=== PATIENT | female | born 1945 | race Caucasian/White ===

== ENCOUNTER 2018-08-01 12:19 | Inpatient (IN) | payer MEDICARE, MEDICAID ==
[~2018-08-01] VITALS: Ht 162.6 cm; Wt 54.9 kg
[~2018-08-01 12:19] MED LIST: ACETAMINOPHEN120 MG RECTAL; ACETAMINOPHEN500 M5 PO; AMANTADINE100 M2 ORAL; AMBIEN5 MG ORAL; DOCUSATE SODIU100 MG ORAL; DULCOLAX10 MG RC; GUAIFENESIN-CO118 M1 ORAL; HEPARIN SO5000 UNITS SQ; LISINOPRIL10 MG ORAL; MAALOX MAXIMUM355 M1 PO; METOPROLOL TART25 MG ORAL; MINIPRESS1 MG PO; MIRAPEX0.25 MG ORAL; MULTIVITAMINS1 EA13 ORAL; PROCARDIA XL90 M4 ORAL; PROTONIX40 MG ORAL; SINEMET 25-1001 EAC1 ORAL; VITAMIN C250 MG ORAL; ZOFRAN4 M1 ORAL
[2018-08-01 12:20] VITALS: BP 95/50
[2018-08-01] MEDS ORDERED: Ampicillin/Sulbactam Sod 3 GM in NS 110 ML IV SCH (13:00)
[2018-08-01 13:05] LABS: EOSINOPHILS % (AUTO) 1.2 % (0.0-3.0); HEMATOCRIT 39.9 % (37.0-47.0); LYMPHOCYTES % (AUTO) 26.8 % (20.0-45.0); MEAN CORPUSCULAR VOLUME 86 FL (80-99); MONOCYTES % (AUTO) 6.2 % (1.0-10.0); NEUTROPHILS % (AUTO) 64.8 % (45.0-75.0); PLATELET COUNT 144 K/UL (150-450); RED BLOOD COUNT 4.64 M/UL (4.20-5.40); RED CELL DISTRIBUTION WIDTH 12.9 % (11.6-14.8); WHITE BLOOD COUNT 5.7 K/UL (4.8-10.8)
[2018-08-01 13:15] LABS: ANION GAP 7 mmol/L (5-15); BLOOD UREA NITROGEN 16 mg/dL (7-18); CALCIUM 9.1 MG/DL (8.5-10.1); CARBON DIOXIDE 25 MMOL/L (21-32); CHLORIDE 108 MMOL/L (98-107); CREATININE 0.4 MG/DL (0.55-1.30); POTASSIUM 4.1 MMOL/L (3.5-5.1); SODIUM 140 MMOL/L (136-145)
[2018-08-01 13:22] LABS: INR 1.1 (0.9-1.1)
--- NOTE | 2018-08-01 13:26 | Emergency Room Report ---
History of Present Illness General Chief Complaint: Altered Level of Consciousness Source: EMS Present Illness HPI 72yo f patient with no PMH is nonverbal from [facility] presents with low BP, sent by Dr. Dupree. NO reported h/o fever, vomiting, SOB, any complaint. Allergies: Coded Allergies: No Known Allergies (Unverified , 08/01/18) Patient History Limited by: medical condition Past Medical History: see triage record Now: No Reviewed Nursing Documentation: PMH: Agreed; PSxH: Agreed Nursing Documentation-PMH Hx Cardiac Problems: Yes - anemia, muscle weakness, dysphagia, quadriplegia Hx Hypertension: Yes Review of Systems All Other Systems: limited Physical Exam Vital Signs Date Time Temp Pulse Resp B/P (MAP) Pulse Ox O2 Delivery O2 Flow Rate FiO2 08/01/18 12:15 48 18 95/50 99 Room Air Sp02 EP Interpretation: reviewed, normal, abnormal General Appearance: no apparent distress, alert, non-toxic Head: normocephalic Eyes: bilateral eye normal inspection, bilateral eye PERRL, bilateral eye EOMI ENT: normal ENT inspection, hearing grossly normal, dry mucus membranes Neck: normal inspection, full range of motion, supple, thyroid normal, no meningismus, no bony tend, supple/symm/no masses Respiratory: chest non-tender, lungs clear, normal breath sounds, no rhonchi, no respiratory distress, no retraction, no accessory muscle use, no wheezing, chest symmetrical, palpation of chest normal Cardiovascular #1: normal peripheral pulses, regular rate, rhythm, no edema, no gallop, no JVD, no murmur, no rub Cardiovascular #2: 1+ radial (R), 1+ radial (L), 1+ dorsalis pedis (R), 1+ dorsalis pedis (L) Gastrointestinal: normal inspection, non tender, soft, no mass, no guarding, no rebound Rectal: deferred Genitourinary: normal inspection, no CVA tenderness Musculoskeletal: back normal, gait/station normal, normal range of motion, non- tender, no calf tenderness, other - CONTRACTED EXTREMITIES Neurologic: alert, responsive, facial droop, aphasia Psychiatric: mood/affect normal Skin: normal color, no rash, warm/dry, normal turgor Lymphatic: no adenopathy Medical Decision Making Diagnostic Impression: Primary Impression: Bradycardia Additional Impression: Hypotension ER Course Patient with hypotension, resolved likely with IV fluids, thought initially to be septic but more likely just dehydration, given IV Unasyn, patient also bradycardic, no evidence of any high-grade blocks, just a profound sinus bradycardia, possibly secondary medications, patient normotensive now, difficult to ascertain any complaints but is awake and nods head and follows basic commands and speaks one word but unintelligible, seems to be baseline for her, we'll admit to Dr. Tony Dupree EKG Diagnostic Results EKG Time: 12:41 EP Interpretation: no stemi Rate: bradycardiac Rhythm: NSR ST Segments: no acute changes ASA given to the pt in ED: No Rhythm Strip Diag. Results Rhythm Strip Time: 13:24 EP Interpretation: yes Rate: 42 Rhythm: no PVC's, no ectopy, other - sinus dilcia Chest X-Ray Diagnostic Results Chest X-Ray Diagnostic Results : Chest X-Ray Ordered: Yes # of Views/Limited/Complete: 1 View Indication: Other - hypotension EP Interpretation: Yes Interpretation: no consolidation, no effusion, no pneumothorax, no acute cardiopulmonary disease Impression: No acute disease Electronically Signed by: Liudmila Alas MD Reevaluation Time: 13:26 Last Vital Signs Date Time Temp Pulse Resp B/P (MAP) Pulse Ox O2 Delivery O2 Flow Rate FiO2 08/01/18 12:15 48 18 95/50 99 Room Air Status: improved Disposition: ADMITTED INPATIENT Condition: Improved LIUDMILA ARROYO M.D Aug 01, 2018 13:26
[2018-08-01 13:28] LABS: ALANINE AMINOTRANSFERASE 8 U/L (12-78); ALBUMIN 2.9 G/DL (3.4-5.0); ALBUMIN/GLOBULIN RATIO 0.7 (1.0-2.7); ALKALINE PHOSPHATASE 112 U/L (46-116); ASPARTATE AMINO TRANSFERASE 15 U/L (15-37); BILIRUBIN,TOTAL 0.7 MG/DL (0.2-1.0); CKMB 0.5 NG/ML (0.0-3.6); CREATINE KINASE 75 U/L (26-308)
--- NOTE | 2018-08-01 13:55 | Diagnostic Imaging Report ---
Indication: Dyspnea Comparison: None A single view chest radiograph was obtained. Findings: No definite infiltrate or pulmonary vascular congestion identified. The heart is enlarged. The aorta is mildly enlarged consistent with atherosclerotic vascular disease. The bones are osteopenic. Impression: No acute disease
[2018-08-01] MEDS ORDERED: Atropine Inj 1mg/10ml Syr IVP ONE (15:00)
[2018-08-01] MEDS ORDERED: Morphine Sulfate 2mg/ml Inj IVP PRN (15:15)
[2018-08-01] MEDS ORDERED: Miralax 17gm pkt ORAL PRN (15:15)
[2018-08-01] MEDS ORDERED: Albuterol/Ipratropium 3ml neb HHN PRN (15:15)
[2018-08-01 15:20] VITALS: BP 105/65
[2018-08-01 15:58] VITALS: BP 148/81
--- NOTE | 2018-08-01 16:15 | History and Physical Report ---
DATE OF ADMISSION: 08/01/2018 APPROXIMATE TIME: 1 p.m. CONSULTANTS: 1. Aleksandr Sibley M.D. 2. Harry Callejas M.D. 3. Flex Winters M.D. CHIEF COMPLAINT: Altered mental status, weakness, bradycardia, hypotension, and contracture. BRIEF HISTORY: This is a 71-year-old female from [facility] presents to [facility] with history of increased weakness and lethargy was barely arousable, came to [facility], diagnosed with bradycardia, hypotension, and altered mental status and being admitted shortly currently lethargic in bed and not really responsive. REVIEW OF SYSTEMS: Unavailable. PAST MEDICAL HISTORY: Include weakness and contracture. PAST SURGICAL HISTORY: Unknown. ALLERGIES: Denies. MEDICATIONS: Include just Augmentin so far and IV fluids. Other medications will be obtain shortly. SOCIAL HISTORY: No smoking. No alcohol. No intravenous drug abuse. FAMILY HISTORY: Noncontributory. PHYSICAL EXAMINATION: GENERAL: Lethargic in bed, x3, no acute distress. VITAL SIGNS: Temperature is not given, pulse 48, respirations 18, and blood pressure 95/50. CARDIOVASCULAR: No murmur. LUNGS: Distant and clear. ABDOMEN: Positive bowel sounds. Soft, nontender, nondistended. EXTREMITIES: Show no cyanosis, clubbing, or edema. NEUROLOGIC: The patient is flaccid in bed, not following directions. LABORATORY DATA: Labs at this time show platelets 144, otherwise CBC is normal. BMP shows chloride 108, . Other laboratories are pending. INR is 1.1. PTT is 23. ASSESSMENT: Altered mental status, weakness, contracture, bradycardia, hypotension. PLAN: Cardiology followup. IV fluids. Resume home medications. OT, PT, and dietary evaluation. CBC and BMP in the morning. We will continue to follow this patient medically. Tony Dupree D.O. DR: DAVE JOB#: [id number] CC:
[2018-08-01 16:30] VITALS: BP 119/71
--- NOTE | 2018-08-01 16:51 | Consultation ---
Consult Note Consult Note ID # [id number] Juventino Young MD Aug 01, 2018 16:51
[2018-08-01] MEDS ORDERED: MULTI VITAMIN1 EACH ORAL (17:57)
[2018-08-01] MEDS ORDERED: SINEMET 25-1001 EAC1 ORAL (17:58)
[2018-08-01] MEDS ORDERED: Cefepime HCl 2 GM in D5W 110 ML IV SCH (18:00)
[2018-08-01] MEDS ORDERED: Vancomycin 750mg/NS 250ml IVPB SCH (18:00)
[2018-08-01] MEDS ORDERED: MIRAPEX0.25 MG ORAL (18:01)
[2018-08-01] MEDS ORDERED: METOPROLOL SUCC25 MG ORAL (18:01)
[2018-08-01] MEDS ORDERED: PRAZOSIN HCL1 MG PO (18:02)
[2018-08-01] MEDS ORDERED: ACETAMINOPHEN325 M1 ORAL (18:04)
--- NOTE | 2018-08-01 19:44 | Cardiology Progress Note ---
Assessment/Plan Assessment/Plan The patient is seen and examined, full consult note will be dictated shortly. Objective Last 24 Hour Vital Signs Date Time Temp Pulse Resp B/P (MAP) Pulse Ox O2 Delivery O2 Flow Rate FiO2 08/01/18 16:47 Room Air 08/01/18 16:43 67 08/01/18 16:30 97.2 53 20 119/71 (87) 99 08/01/18 16:29 98.1 89 10 148/81 99 Room Air 08/01/18 15:58 89 10 148/81 99 Room Air 08/01/18 15:20 49 10 105/65 99 Room Air 08/01/18 12:20 55 18 Room Air 08/01/18 12:20 98.1 55 18 95/50 99 Room Air 08/01/18 12:15 48 18 95/50 99 Room Air Laboratory Tests Test 08/01/18 12:35 White Blood Count 5.7 K/UL (4.8-10.8) Red Blood Count 4.64 M/UL (4.20-5.40) Hemoglobin 13.0 G/DL (12.0-16.0) Hematocrit 39.9 % (37.0-47.0) Mean Corpuscular Volume 86 FL (80-99) Mean Corpuscular Hemoglobin 28.0 PG (27.0-31.0) Mean Corpuscular Hemoglobin Concent 32.6 G/DL (32.0-36.0) Red Cell Distribution Width 12.9 % (11.6-14.8) Platelet Count 144 K/UL (150-450) L Mean Platelet Volume 8.1 FL (6.5-10.1) Neutrophils (%) (Auto) 64.8 % (45.0-75.0) Lymphocytes (%) (Auto) 26.8 % (20.0-45.0) Monocytes (%) (Auto) 6.2 % (1.0-10.0) Eosinophils (%) (Auto) 1.2 % (0.0-3.0) Basophils (%) (Auto) 1.0 % (0.0-2.0) Prothrombin Time 11.4 SEC (9.30-11.50) Prothromb Time International Ratio 1.1 (0.9-1.1) Activated Partial Thromboplast Time 23 SEC (23-33) Sodium Level 140 MMOL/L (136-145) Potassium Level 4.1 MMOL/L (3.5-5.1) Chloride Level 108 MMOL/L (98-107) H Carbon Dioxide Level 25 MMOL/L (21-32) Anion Gap 7 mmol/L (5-15) Blood Urea Nitrogen 16 mg/dL (7-18) Creatinine 0.4 MG/DL (0.55-1.30) L Estimat Glomerular Filtration Rate mL/min (>60) Glucose Level 83 MG/DL (74-106) Lactic Acid Level 1.20 mmol/L (0.4-2.0) Calcium Level 9.1 MG/DL (8.5-10.1) Total Bilirubin 0.7 MG/DL (0.2-1.0) Aspartate Amino Transf (AST/SGOT) 15 U/L (15-37) Alanine Aminotransferase (ALT/SGPT) 8 U/L (12-78) L Alkaline Phosphatase 112 U/L (46-116) Total Creatine Kinase 75 U/L (26-308) Creatine Kinase MB 0.5 NG/ML (0.0-3.6) Creatine Kinase MB Relative Index 0.6 Troponin I 0.010 ng/mL (0.000-0.056) Total Protein 6.9 G/DL (6.4-8.2) Albumin 2.9 G/DL (3.4-5.0) L Globulin 4.0 g/dL Albumin/Globulin Ratio 0.7 (1.0-2.7) L Microbiology Date/Time Source Procedure Growth Status 08/01/18 12:35 Nasal Nares Influenza Types A,B Antigen (NBA) - Final Complete Flex Winters MD Aug 01, 2018 19:44
[2018-08-01 20:00] VITALS: BP 131/61
--- NOTE | 2018-08-01 21:15 | Consultation ---
DATE OF CONSULTATION: 08/01/2018 INFECTIOUS DISEASES CONSULTATION CONSULTING PHYSICIAN: Juventino Young M.D. REFERRING PHYSICIAN: Tony Dupree D.O. REASON FOR CONSULTATION: Evaluation of the patient for possible sepsis, antibiotic management. HISTORY OF PRESENT ILLNESS: The patient is a 71-year-old female with multiple medical problems, who was brought to this medical center due to altered level of consciousness. Also reported the patient has low blood pressure. The patient is not able to provide information. Much of the information is gathered through interviewing the patient's daughter at the bedside. The patient has history of Parkinson disease for many years, bedridden. However, her mentation has been well. She is alert and oriented. She is able to the eat on her own; however, with difficulty. The patient became suddenly altered today and was brought to the hospital, we have been consulted for possible sepsis as a contributing factor. Infectious Diseases consultation has been requested for further evaluation of the patient and antibiotic management PAST MEDICAL HISTORY: 1. History of Parkinson disease. 2. Anemia. MEDICATIONS: The patient received one dose of vancomycin and cefepime in the emergency room. ALLERGIES: No known drug allergies. SOCIAL HISTORY: The patient lives in a detention. FAMILY HISTORY: Unavailable. REVIEW OF SYSTEMS: Unobtainable. Much of information gathered through the chart and speaking to the patient's daughter. PHYSICAL EXAMINATION: VITAL SIGNS: Temperature 98 degrees, pulse 86, respiratory rate 18, and blood pressure 148/81. HEENT: No pale conjunctivae. No icterus. NECK: No lymphadenopathy. CHEST: Clear. HEART: S1 and S2. ABDOMEN: Soft. EXTREMITIES: No cyanosis. NEUROLOGIC: Nonverbal. Obtunded. SKIN: No rash. LABORATORY AND DIAGNOSTIC DATA: White blood cell 5.7, hemoglobin 13, and platelet 144. BUN 18 and creatinine 0.4. ALT, AST, alkaline phosphatase unremarkable. Influenza screen negative. Chest x-ray, no acute disease. ASSESSMENT: The patient is a 71-year-old female with acute altered level of consciousness. 1. Rule out probable sepsis. 2. Afebrile. 3. Normal white blood cells. 4. Rule out bacteremia/urinary tract infection. 5. Status post to admission. 6. No evidence of pneumonia based on chest x-ray/no history of cough. PLAN: 1. We will continue the patient on vancomycin and cefepime. 2. Monitor CBC. 3. Monitor BMP. 4. Monitor cultures (blood and urine). 5. CT of the brain, rule out CVA. 6. Recommend Neurology evaluation if the patient's mental status does not improve. Thank you for this consultation. I will follow the patient with you during this admission. Juventino Young M.D. DR: Stanford JOB#: [id number] CC:
[2018-08-01] MEDS: Heparin 5000 units/ml inj SUBQ SCH (21:31)
[2018-08-02] VITALS: BP 115/65
[2018-08-02] MEDS ORDERED: Vancomycin 1 GM in D5W 275 ML IV SCH (00:30)
--- NOTE | 2018-08-02 02:45 | Consultation ---
DATE OF CONSULTATION: 08/01/2018 REFERRING PHYSICIAN: Tony Dupree D.O. CONSULTING PHYSICIAN: Flex Winters M.D. REASON FOR CONSULTATION: Management of hypotension and bradycardia. HISTORY OF PRESENT ILLNESS: The patient is a very unfortunate 71-year-old female, who is nonverbal from nursing facility. Discretion of Dr. Tony Dupree, the patient was brought in for management of hypotension and bradycardia. There was no report of fever, chills, shortness of breath, chest pain, nausea, or vomiting. At the time of arrival the patient to the emergency department, blood pressure was 95/50 mmHg and heart rate was 48. A 12-lead electrocardiogram revealed sinus rhythm with no acute ST and T-wave abnormality. On the rhythm strip later on in the emergency department, the patient showed profound sinus bradycardia with heart rate as low as 42. Apparently, the patient has been taking metoprolol in the nursing facility. Initial chest x-ray in the emergency department showed no acute cardiopulmonary disease with enlarged heart and atherosclerotic vascular disease. Laboratory finding did not show any evidence of leukocytosis. Initial troponin I level was also within normal limits at 0.01. She was ruled out for influenza A and B. She was admitted to telemetry for further evaluation and management of hypotension. In the emergency room, the patient was given intravenous Unasyn as well as IV fluids, which helped with the blood pressure. PAST MEDICAL HISTORY: 1. Anemia. 2. Dysphagia. 3. Hypertension. 4. Quadriplegia. 5. Parkinson disease. ALLERGIES: No known drug allergies. FAMILY HISTORY: No premature coronary artery disease in first-degree relatives. SOCIAL HISTORY: There is no current history of tobacco, alcohol, or illicit drug use. REVIEW OF SYSTEMS: A 12-system review cannot be obtained as the patient is nonverbal. MEDICATIONS: List of medication including acetaminophen 650 mg q.4 h. p.r.n. pain, carbidopa and levodopa 25/100 one tablet p.o. three times daily, metoprolol 25 mg twice daily, multivitamin one p.o. daily, Mirapex 0.5 mg times a day, and terazosin 1 mg p.o. times a day. PHYSICAL EXAMINATION: VITAL SIGNS: Blood pressure 95/50 mmHg, pulse of 48, respirations of 18, and O2 saturation 99% on room air. GENERAL: The patient is a very unfortunate 71-year-old female, nonverbal, in no apparent respiratory distress. HEENT: Atraumatic and normocephalic. Anicteric. Pupils are equal, round, and reactive to light and accommodation. Extraocular muscles are intact. Dry mucosal membranes. NECK: JVP less than 5 centimeter. No carotid bruits. Carotid upstrokes 2+ bilaterally. CARDIOVASCULAR: Normal S1 and S2. Regular rate and rhythm. Bradycardic. No murmurs, gallops, or rubs. LUNGS: Clear to auscultation bilaterally. ABDOMEN: Soft, nontender, and nondistended. No hepatosplenomegaly. Positive bowel sounds. EXTREMITIES: Contracted. No edema, clubbing, or cyanosis. LABORATORY FINDINGS: Sodium was 140, potassium 4.1, chloride 108, bicarbonate 25, BUN of 16, creatinine 0.4, glucose 83, and calcium is 9.1. Troponin I 0.01. WBC 5.7, hemoglobin 13.0, hematocrit of 39.9, and platelet count is 144. INR is 1.1. ASSESSMENT AND PLAN: The patient is a very unfortunate 71-year-old female who was seen in Cardiology consultation at the request of Dr. Dupree. 1. Sinus bradycardia. This could be secondary to metoprolol. We will place a hold on metoprolol. For hypertension, we may choose to go with hydralazine. There is no evidence of AV block. We will continue to monitor the patient's rhythm throughout the hospitalization. The patient is nonverbal and cannot provide any symptoms at this time. 2. Hypertension, not clear the etiology, although Sinemet can cause orthostatic hypertension in this patient, most likely hypovolemia as the patient clinically ___. She also responded to intravenous fluids given in the emergency department. Currently, the blood pressure is well preserved upon arrival to the floor. 3. History of Parkinson disease, on Sinemet. 4. History of quadriplegia. 5. History of dysphagia. 6. Anemia. I would like to thank, Dr. Dupree, for allowing me to participate in care of this patient. Flex Winters M.D. DR: NOAH :42 JOB#: [id number] CC:
[2018-08-02 04:00] VITALS: BP 117/69
[2018-08-02] MEDS: Cefepime HCl 2 GM in D5W 110 ML IV SCH (06:29)
--- NOTE | 2018-08-02 07:18 | General Progress Note ---
Assessment/Plan Problem List: (1) Altered mental status ICD Codes: R41.82 - Altered mental status, unspecified SNOMED: 553458647 (2) Weak ICD Codes: R53.1 - Weakness SNOMED: 82626336 (3) Parkinson disease ICD Codes: G20 - Parkinson's disease SNOMED: 11613557 (4) Bradycardia ICD Codes: R00.1 - Bradycardia, unspecified SNOMED: 83773743 (5) Hypotension ICD Codes: I95.9 - Hypotension, unspecified SNOMED: 56494639 Status: progressing Assessment/Plan ot pt diet ivf cbc bmp am cardio neuro f/u Subjective Constitutional: Reports: weakness Allergies: Coded Allergies: No Known Allergies (Unverified , 08/01/18) All Systems: reviewed and negative except above Subjective bed calm more alert Objective Last 24 Hour Vital Signs Date Time Temp Pulse Resp B/P (MAP) Pulse Ox O2 Delivery O2 Flow Rate FiO2 08/02/18 04:00 46 08/02/18 04:00 98.0 66 20 117/69 (85) 97 08/02/18 02:30 Room Air 08/02/18 02:27 43 08/02/18 00:00 48 08/02/18 00:00 98.0 49 19 115/65 (82) 100 08/01/18 21:00 Room Air 08/01/18 20:00 48 08/01/18 20:00 97.0 50 22 131/61 (84) 97 08/01/18 16:47 Room Air 08/01/18 16:43 67 08/01/18 16:30 97.2 53 20 119/71 (87) 99 08/01/18 16:29 98.1 89 10 148/81 99 Room Air 08/01/18 15:58 89 10 148/81 99 Room Air 08/01/18 15:20 49 10 105/65 99 Room Air 08/01/18 12:20 55 18 Room Air 08/01/18 12:20 98.1 55 18 95/50 99 Room Air 08/01/18 12:15 48 18 95/50 99 Room Air Intake and Output 08/01/18 08/02/18 18:59 06:59 Intake Total 220 ml Balance 220 ml Intake IV Total 220 ml # Voids 1 2 Laboratory Tests 08/01/18 12:35: White Blood Count 5.7, Red Blood Count 4.64, Hemoglobin 13.0, Hematocrit 39.9, Mean Corpuscular Volume 86, Mean Corpuscular Hemoglobin 28.0, Mean Corpuscular Hemoglobin Concent 32.6, Red Cell Distribution Width 12.9, Platelet Count 144L, Mean Platelet Volume 8.1, Neutrophils (%) (Auto) 64.8, Lymphocytes (%) (Auto) 26.8, Monocytes (%) (Auto) 6.2, Eosinophils (%) (Auto) 1.2, Basophils (%) (Auto ) 1.0, Prothrombin Time 11.4, Prothromb Time International Ratio 1.1, Activated Partial Thromboplast Time 23, Sodium Level 140, Potassium Level 4.1, Chloride Level 108H, Carbon Dioxide Level 25, Anion Gap 7, Blood Urea Nitrogen 16, Creatinine 0.4L, Estimat Glomerular Filtration Rate , Glucose Level 83, Lactic Acid Level 1.20, Calcium Level 9.1, Total Bilirubin 0.7, Aspartate Amino Transf (AST/SGOT) 15, Alanine Aminotransferase (ALT/SGPT) 8L, Alkaline Phosphatase 112 , Total Creatine Kinase 75, Creatine Kinase MB 0.5, Creatine Kinase MB Relative Index 0.6, Troponin I 0.010, Total Protein 6.9, Albumin 2.9L, Globulin 4.0, Albumin/Globulin Ratio 0.7L Height (Feet): 5 Height (Inches): 4.00 Weight (Pounds): 121 General Appearance: lethargic EENT: normal ENT inspection Neck: normal alignment Cardiovascular: normal peripheral pulses, normal rate, regular rhythm Respiratory/Chest: chest wall non-tender, lungs clear, normal breath sounds Abdomen: normal bowel sounds, non tender, soft Extremities: normal inspection Edema: no edema noted Arm (L), no edema noted Arm (R), no edema noted Leg (L), no edema noted Leg (R), no edema noted Pedal (L), no edema noted Pedal (R), no edema noted Generalized Neurologic: motor weakness Skin: normal pigmentation, warm/dry Tony Dupree DO Aug 02, 2018 07:18
--- NOTE | 2018-08-02 07:41 | Infectious Diseases Prog Note ---
Assessment/Plan Assessment/Plan The patient is a 71-year-old female with acute altered level of consciousness. Rule out probable sepsis - suspect UTI Afebrile. Normal white blood cells. Rule out bacteremia/urinary tract infection. No evidence of pneumonia based on chest x-ray/no history of cough. PLAN: We will continue the patient on vancomycin and cefepime #2/7 Monitor CBC. Monitor BMP. Monitor cultures (blood and urine). CT of the brain, rule out CVA. I will follow the patient with you during this admission. Subjective Allergies: Coded Allergies: No Known Allergies (Unverified , 08/01/18) Subjective Patient remains afebrile No leukocytosis UA pending Awake and talking a little. Denies pain Objective Vital Signs Last 24 Hour Vital Signs Date Time Temp Pulse Resp B/P (MAP) Pulse Ox O2 Delivery O2 Flow Rate FiO2 08/02/18 04:00 46 08/02/18 04:00 98.0 66 20 117/69 (85) 97 08/02/18 02:30 Room Air 08/02/18 02:27 43 08/02/18 00:00 48 08/02/18 00:00 98.0 49 19 115/65 (82) 100 08/01/18 21:00 Room Air 08/01/18 20:00 48 08/01/18 20:00 97.0 50 22 131/61 (84) 97 08/01/18 16:47 Room Air 08/01/18 16:43 67 08/01/18 16:30 97.2 53 20 119/71 (87) 99 08/01/18 16:29 98.1 89 10 148/81 99 Room Air 08/01/18 15:58 89 10 148/81 99 Room Air 08/01/18 15:20 49 10 105/65 99 Room Air 08/01/18 12:20 55 18 Room Air 08/01/18 12:20 98.1 55 18 95/50 99 Room Air 08/01/18 12:15 48 18 95/50 99 Room Air Height (Feet): 5 Height (Inches): 4.00 Weight (Pounds): 121 Objective HEENT: NCAT, MMM, CHEST: CTAB, No W. HEART: RRR, S1 and S2. ABDOMEN: Soft. Not Distended NEUROLOGIC: Awake and alert. Talking, SKIN: No rash. Microbiology Date/Time Source Procedure Growth Status 08/01/18 12:35 Nasal Nares Influenza Types A,B Antigen (NBA) - Final Complete Laboratory Tests Test 08/01/18 12:35 White Blood Count 5.7 K/UL (4.8-10.8) Red Blood Count 4.64 M/UL (4.20-5.40) Hemoglobin 13.0 G/DL (12.0-16.0) Hematocrit 39.9 % (37.0-47.0) Mean Corpuscular Volume 86 FL (80-99) Mean Corpuscular Hemoglobin 28.0 PG (27.0-31.0) Mean Corpuscular Hemoglobin Concent 32.6 G/DL (32.0-36.0) Red Cell Distribution Width 12.9 % (11.6-14.8) Platelet Count 144 K/UL (150-450) L Mean Platelet Volume 8.1 FL (6.5-10.1) Neutrophils (%) (Auto) 64.8 % (45.0-75.0) Lymphocytes (%) (Auto) 26.8 % (20.0-45.0) Monocytes (%) (Auto) 6.2 % (1.0-10.0) Eosinophils (%) (Auto) 1.2 % (0.0-3.0) Basophils (%) (Auto) 1.0 % (0.0-2.0) Prothrombin Time 11.4 SEC (9.30-11.50) Prothromb Time International Ratio 1.1 (0.9-1.1) Activated Partial Thromboplast Time 23 SEC (23-33) Sodium Level 140 MMOL/L (136-145) Potassium Level 4.1 MMOL/L (3.5-5.1) Chloride Level 108 MMOL/L (98-107) H Carbon Dioxide Level 25 MMOL/L (21-32) Anion Gap 7 mmol/L (5-15) Blood Urea Nitrogen 16 mg/dL (7-18) Creatinine 0.4 MG/DL (0.55-1.30) L Estimat Glomerular Filtration Rate mL/min (>60) Glucose Level 83 MG/DL (74-106) Lactic Acid Level 1.20 mmol/L (0.4-2.0) Calcium Level 9.1 MG/DL (8.5-10.1) Total Bilirubin 0.7 MG/DL (0.2-1.0) Aspartate Amino Transf (AST/SGOT) 15 U/L (15-37) Alanine Aminotransferase (ALT/SGPT) 8 U/L (12-78) L Alkaline Phosphatase 112 U/L (46-116) Total Creatine Kinase 75 U/L (26-308) Creatine Kinase MB 0.5 NG/ML (0.0-3.6) Creatine Kinase MB Relative Index 0.6 Troponin I 0.010 ng/mL (0.000-0.056) Total Protein 6.9 G/DL (6.4-8.2) Albumin 2.9 G/DL (3.4-5.0) L Globulin 4.0 g/dL Albumin/Globulin Ratio 0.7 (1.0-2.7) L Current Medications Medications (Trade) Dose Ordered Sig/Alex Route PRN Reason Start Time Stop Time Status Last Admin Dose Admin Acetaminophen (Tylenol) 650 mg Q4H PRN ORAL T>100.5 08/01/18 15:15 08/31/18 15:14 Albuterol/ Ipratropium (Albuterol/ Ipratropium) 3 ml Q4H PRN HHN Shortness of Breath 08/01/18 15:15 08/06/18 15:14 Carbidopa/Levodopa (Sinemet 25/100) 1 tab THREE TIMES A DAY ORAL 08/02/18 09:00 09/01/18 08:59 Cefepime HCl 2 gm/ Dextrose 110 ml @ 220 mls/hr Q24H IV 08/02/18 06:00 08/09/18 05:59 08/02/18 06:29 Heparin Sodium (Porcine) (Heparin 5000 units/ml) 5,000 units EVERY 12 HOURS SUBQ 08/01/18 21:00 08/31/18 20:59 08/01/18 21:31 Morphine Sulfate (Morphine Sulfate) 2 mg Q4H PRN IVP PAIN 4-10 08/01/18 15:15 08/08/18 15:14 Ondansetron HCl (Zofran) 4 mg Q6H PRN IVP Nausea & Vomiting 08/01/18 15:15 08/31/18 15:14 Phenazopyridine HCl (Pyridium) 100 mg DAILYPRN PRN ORAL dysuria 08/01/18 15:15 08/31/18 15:14 Polyethylene Glycol (Miralax) 17 gm DAILYPRN PRN ORAL Constipation 08/01/18 15:15 08/31/18 15:14 Pramipexole (Mirapex) 0.5 mg TID ORAL 08/02/18 09:00 09/01/18 08:59 Temazepam (Restoril) 15 mg HSPRN PRN ORAL Insomnia 08/01/18 21:00 08/08/18 20:59 Vancomycin HCl (Vanco rx to dose) 1 ea DAILY PRN MISC per rx protocol 08/01/18 16:45 08/31/18 16:44 Vancomycin HCl 500 mg/Dextrose 110 ml @ 110 mls/hr Q24H IVPB 08/02/18 18:00 08/07/18 17:59 Jasvir Mar MD Aug 02, 2018 07:41
[2018-08-02 08:00] VITALS: BP 111/65
[2018-08-02 08:15] LABS: BASOPHILS % (AUTO) 0.9 % (0.0-2.0); EOSINOPHILS % (AUTO) 1.3 % (0.0-3.0); HEMATOCRIT 41.9 % (37.0-47.0); HEMOGLOBIN 14.1 G/DL (12.0-16.0); MEAN CORPUSCULAR VOLUME 85 FL (80-99); MONOCYTES % (AUTO) 4.6 % (1.0-10.0); NEUTROPHILS % (AUTO) 66.3 % (45.0-75.0); PLATELET COUNT 149 K/UL (150-450); RED BLOOD COUNT 4.92 M/UL (4.20-5.40); RED CELL DISTRIBUTION WIDTH 12.8 % (11.6-14.8); WHITE BLOOD COUNT 6.2 K/UL (4.8-10.8)
[2018-08-02] MEDS: Pramipexole 0.5mg tab ORAL SCH ×3 (08:26→18:06)
[2018-08-02] MEDS: Levodopa/Carbidopa 25/100 tab ORAL SCH ×3 (08:26→18:06)
[2018-08-02] MEDS: Heparin 5000 units/ml inj SUBQ SCH ×2 (08:28→20:41)
[2018-08-02 08:57] LABS: ALANINE AMINOTRANSFERASE 8 U/L (12-78); ALBUMIN 3.1 G/DL (3.4-5.0); ALBUMIN/GLOBULIN RATIO 0.7 (1.0-2.7); ALKALINE PHOSPHATASE 120 U/L (46-116); ANION GAP 10 mmol/L (5-15); ASPARTATE AMINO TRANSFERASE 12 U/L (15-37); BILIRUBIN,TOTAL 1.1 MG/DL (0.2-1.0); BLOOD UREA NITROGEN 19 mg/dL (7-18); CALCIUM 9.6 MG/DL (8.5-10.1); CARBON DIOXIDE 24 MMOL/L (21-32); CHLORIDE 106 MMOL/L (98-107); CREATININE 0.7 MG/DL (0.55-1.30); POTASSIUM 3.6 MMOL/L (3.5-5.1); SODIUM 140 MMOL/L (136-145)
[2018-08-02 08:58] LABS: BILIRUBIN,DIRECT 0.2 MG/DL (0.0-0.3)
[2018-08-02 12:00] VITALS: BP 117/73
--- NOTE | 2018-08-02 12:26 | Pulmonology Progress Note ---
Assessment/Plan Assessment/Plan HPI Patient is a 71 year old woman, nonverbal from nursing facility who presents with hypotension and bradycardia. Apparently, the patient has been taking metoprolol in the nursing facility. She was ruled out for influenza A and B. Allergies: No Known Allergies PAST MEDICAL HISTORY: 1. Anemia. 2. Dysphagia. 3. Hypertension. 4. Quadriplegia. 5. Parkinson disease. Vital signs noted VITAL SIGNS: Blood pressure 95/50 mmHg, pulse of 48, respirations of 18, and O2 saturation 99% on room air. GENERAL: The patient is a very unfortunate 71-year-old female, nonverbal, in no apparent respiratory distress. HEENT: Atraumatic and normocephalic. Anicteric. Pupils are equal, round, and reactive to light and accommodation. Extraocular muscles are intact. Dry mucosal membranes. NECK: JVP less than 5 centimeter. No carotid bruits. Carotid upstrokes 2+ bilaterally. CARDIOVASCULAR: Normal S1 and S2. Regular rate and rhythm. Bradycardic. No murmurs, gallops, or rubs. LUNGS: Clear to auscultation bilaterally. ABDOMEN: Soft, nontender, and nondistended. No hepatosplenomegaly. Positive bowel sounds. EXTREMITIES: Contracted. No edema, clubbing, or cyanosis. LABORATORY FINDINGS: Sodium was 140, potassium 4.1, chloride 108, bicarbonate 25, BUN of 16, creatinine 0.4, glucose 83, and calcium is 9.1. Troponin I 0.01. WBC 5.7, hemoglobin 13.0, hematocrit of 39.9, and platelet count is 144. INR is 1.1. EKG: sinus rhythm with no acute ST and T-wave abnormality. On the rhythm strip later on in the emergencydepartment, the patient showed profound sinus bradycardia with heart rate as low as 42. CXR: No acute change Assessment/Plan The patient is a 71-year-old female with acute altered level of consciousness. Rule out probable sepsis - suspect UTI Hypotension, Bradycardia No evidence of pneumonia based on chest x-ray/no history of cough. Parkinsons Disease, h/o quadriplegia Dysphagia PLAN: Volume challenge PRN Avoid Beta blockers Continue broad spectrum antibiotics per ID Monitor labs/ cultures (blood and urine) PPX, SQH Subjective Subjective ROS Limited/Unobtainable: Yes Allergies: Coded Allergies: No Known Allergies (Unverified , 11/2/18) Objective Last 24 Hour Vital Signs Date Time Temp Pulse Resp B/P (MAP) Pulse Ox O2 Delivery O2 Flow Rate FiO2 08/02/18 12:00 98.2 96 22 117/73 (88) 97 08/02/18 09:00 Room Air 08/02/18 08:00 98.1 90 22 111/65 (80) 95 08/02/18 08:00 94 08/02/18 04:00 46 08/02/18 04:00 98.0 66 20 117/69 (85) 97 08/02/18 02:30 Room Air 08/02/18 02:27 43 08/02/18 00:00 48 08/02/18 00:00 98.0 49 19 115/65 (82) 100 08/01/18 21:00 Room Air 08/01/18 20:00 48 08/01/18 20:00 97.0 50 22 131/61 (84) 97 08/01/18 16:47 Room Air 08/01/18 16:43 67 08/01/18 16:30 97.2 53 20 119/71 (87) 99 08/01/18 16:29 98.1 89 10 148/81 99 Room Air 08/01/18 15:58 89 10 148/81 99 Room Air 08/01/18 15:20 49 10 105/65 99 Room Air Intake and Output 08/01/18 08/02/18 18:59 06:59 Intake Total 220 ml Balance 220 ml Intake IV Total 220 ml # Voids 1 2 Microbiology Date/Time Source Procedure Growth Status 08/01/18 12:35 Nasal Nares Influenza Types A,B Antigen (NBA) - Final Complete Laboratory Tests 08/01/18 12:35: White Blood Count 5.7, Red Blood Count 4.64, Hemoglobin 13.0, Hematocrit 39.9, Mean Corpuscular Volume 86, Mean Corpuscular Hemoglobin 28.0, Mean Corpuscular Hemoglobin Concent 32.6, Red Cell Distribution Width 12.9, Platelet Count 144L, Mean Platelet Volume 8.1, Neutrophils (%) (Auto) 64.8, Lymphocytes (%) (Auto) 26.8, Monocytes (%) (Auto) 6.2, Eosinophils (%) (Auto) 1.2, Basophils (%) (Auto ) 1.0, Prothrombin Time 11.4, Prothromb Time International Ratio 1.1, Activated Partial Thromboplast Time 23, Sodium Level 140, Potassium Level 4.1, Chloride Level 108H, Carbon Dioxide Level 25, Anion Gap 7, Blood Urea Nitrogen 16, Creatinine 0.4L, Estimat Glomerular Filtration Rate , Glucose Level 83, Lactic Acid Level 1.20, Calcium Level 9.1, Total Bilirubin 0.7, Aspartate Amino Transf (AST/SGOT) 15, Alanine Aminotransferase (ALT/SGPT) 8L, Alkaline Phosphatase 112 , Total Creatine Kinase 75, Creatine Kinase MB 0.5, Creatine Kinase MB Relative Index 0.6, Troponin I 0.010, Total Protein 6.9, Albumin 2.9L, Globulin 4.0, Albumin/Globulin Ratio 0.7L 08/02/18 07:47: White Blood Count 6.2, Red Blood Count 4.92, Hemoglobin 14.1, Hematocrit 41.9, Mean Corpuscular Volume 85, Mean Corpuscular Hemoglobin 28.6, Mean Corpuscular Hemoglobin Concent 33.6, Red Cell Distribution Width 12.8, Platelet Count 149L, Mean Platelet Volume 7.8, Neutrophils (%) (Auto) 66.3, Lymphocytes (%) (Auto) 27.0, Monocytes (%) (Auto) 4.6, Eosinophils (%) (Auto) 1.3, Basophils (%) (Auto ) 0.9, Sodium Level 140, Potassium Level 3.6, Chloride Level 106, Carbon Dioxide Level 24, Anion Gap 10, Blood Urea Nitrogen 19H, Creatinine 0.7#, Estimat Glomerular Filtration Rate , Glucose Level 153H, Calcium Level 9.6, Total Bilirubin 1.1H, Aspartate Amino Transf (AST/SGOT) 12L, Alanine Aminotransferase (ALT/SGPT) 8L, Alkaline Phosphatase 120H, Total Protein 7.3, Albumin 3.1L, Globulin 4.2, Albumin/Globulin Ratio 0.7L, Direct Bilirubin 0.2 Current Medications Medications (Trade) Dose Ordered Sig/Alex Route PRN Reason Start Time Stop Time Status Last Admin Dose Admin Acetaminophen (Tylenol) 650 mg Q4H PRN ORAL T>100.5 08/01/18 15:15 08/31/18 15:14 Albuterol/ Ipratropium (Albuterol/ Ipratropium) 3 ml Q4H PRN HHN Shortness of Breath 08/01/18 15:15 08/06/18 15:14 Carbidopa/Levodopa (Sinemet 25/100) 1 tab THREE TIMES A DAY ORAL 08/02/18 09:00 09/01/18 08:59 08/02/18 12:11 Cefepime HCl 2 gm/ Dextrose 110 ml @ 220 mls/hr Q24H IV 08/02/18 06:00 08/09/18 05:59 08/02/18 06:29 Heparin Sodium (Porcine) (Heparin 5000 units/ml) 5,000 units EVERY 12 HOURS SUBQ 08/01/18 21:00 08/31/18 20:59 08/02/18 08:28 Morphine Sulfate (Morphine Sulfate) 2 mg Q4H PRN IVP PAIN 4-10 08/01/18 15:15 08/08/18 15:14 Ondansetron HCl (Zofran) 4 mg Q6H PRN IVP Nausea & Vomiting 08/01/18 15:15 08/31/18 15:14 Phenazopyridine HCl (Pyridium) 100 mg DAILYPRN PRN ORAL dysuria 08/01/18 15:15 08/31/18 15:14 Polyethylene Glycol (Miralax) 17 gm DAILYPRN PRN ORAL Constipation 08/01/18 15:15 08/31/18 15:14 Pramipexole (Mirapex) 0.5 mg TID ORAL 08/02/18 09:00 09/01/18 08:59 08/02/18 12:11 Temazepam (Restoril) 15 mg HSPRN PRN ORAL Insomnia 08/01/18 21:00 08/08/18 20:59 Vancomycin HCl (Vanco rx to dose) 1 ea DAILY PRN MISC per rx protocol 08/01/18 16:45 08/31/18 16:44 Vancomycin HCl 500 mg/Dextrose 110 ml @ 110 mls/hr Q24H IVPB 08/02/18 18:00 08/07/18 17:59 Jasvir Juarez MD Aug 02, 2018 12:26
[2018-08-02 14:27] LABS: APPEARANCE,URINE CLEAR; BILIRUBIN, URINE NEGATIVE (NEGATIVE); COLOR,URINE PALE YELLOW; GLUCOSE, URINE (UA) NEGATIVE (NEGATIVE); KETONES,URINE 1+ (NEGATIVE); LEUKOCYTE ESTERASE ,URINE 2+ (NEGATIVE); NITRITE,URINE NEGATIVE (NEGATIVE); PH,URINE 6.5 (4.5-8.0); PROTEIN,URINE NEGATIVE (NEGATIVE); UROBILINOGEN,URINE NORMAL MG/DL (0.0-1.0)
--- NOTE | 2018-08-02 15:01 | Cardiology Report ---
APPROVED REPORT EKG Measurement Heart [id number] Sinus rhythm with one second sinus pause. Moderate voltage criteria for LVH, may be normal variant Inferior infarct, age undetermined Anterior infarct, age undetermined Abnormal ECG
--- NOTE | 2018-08-02 15:33 | Cardiology Progress Note ---
Assessment/Plan Assessment/Plan 1. Sinus bradycardia, resolved after withdrawal of metoprolol, now tachycardic, will start low dose metoprolol tartrate. 2. Hypotension, not clear the etiology, although Sinemet can cause orthostatic hypertension although this patient cannot assume upright posture. Other etiology could be hypovolemia as the patient clinically dry. She also responded to intravenous fluids given in the emergency department. Currently, the blood pressure is well preserved. Subjective Subjective Sinus rhythm at rate of 96. Objective Last 24 Hour Vital Signs Date Time Temp Pulse Resp B/P (MAP) Pulse Ox O2 Delivery O2 Flow Rate FiO2 08/02/18 12:00 98.2 96 22 117/73 (88) 97 08/02/18 12:00 100 08/02/18 09:00 Room Air 08/02/18 08:00 98.1 90 22 111/65 (80) 95 08/02/18 08:00 94 08/02/18 04:00 46 08/02/18 04:00 98.0 66 20 117/69 (85) 97 08/02/18 02:30 Room Air 08/02/18 02:27 43 08/02/18 00:00 48 08/02/18 00:00 98.0 49 19 115/65 (82) 100 08/01/18 21:00 Room Air 08/01/18 20:00 48 08/01/18 20:00 97.0 50 22 131/61 (84) 97 08/01/18 16:47 Room Air 08/01/18 16:43 67 08/01/18 16:30 97.2 53 20 119/71 (87) 99 08/01/18 16:29 98.1 89 10 148/81 99 Room Air 08/01/18 15:58 89 10 148/81 99 Room Air Intake and Output 08/01/18 08/02/18 19:00 07:00 Intake Total 220 ml Balance 220 ml Intake IV Total 220 ml # Voids 1 2 2D Echo: LVEF 55%, Mild AR, RVSP 46 mmHg, Grade I LVDD Laboratory Tests Test 08/02/18 07:47 08/02/18 13:46 White Blood Count 6.2 K/UL (4.8-10.8) Red Blood Count 4.92 M/UL (4.20-5.40) Hemoglobin 14.1 G/DL (12.0-16.0) Hematocrit 41.9 % (37.0-47.0) Mean Corpuscular Volume 85 FL (80-99) Mean Corpuscular Hemoglobin 28.6 PG (27.0-31.0) Mean Corpuscular Hemoglobin Concent 33.6 G/DL (32.0-36.0) Red Cell Distribution Width 12.8 % (11.6-14.8) Platelet Count 149 K/UL (150-450) L Mean Platelet Volume 7.8 FL (6.5-10.1) Neutrophils (%) (Auto) 66.3 % (45.0-75.0) Lymphocytes (%) (Auto) 27.0 % (20.0-45.0) Monocytes (%) (Auto) 4.6 % (1.0-10.0) Eosinophils (%) (Auto) 1.3 % (0.0-3.0) Basophils (%) (Auto) 0.9 % (0.0-2.0) Sodium Level 140 MMOL/L (136-145) Potassium Level 3.6 MMOL/L (3.5-5.1) Chloride Level 106 MMOL/L (98-107) Carbon Dioxide Level 24 MMOL/L (21-32) Anion Gap 10 mmol/L (5-15) Blood Urea Nitrogen 19 mg/dL (7-18) H Creatinine 0.7 MG/DL (0.55-1.30) # Estimat Glomerular Filtration Rate mL/min (>60) Glucose Level 153 MG/DL (74-106) H Calcium Level 9.6 MG/DL (8.5-10.1) Total Bilirubin 1.1 MG/DL (0.2-1.0) H Direct Bilirubin 0.2 MG/DL (0.0-0.3) Aspartate Amino Transf (AST/SGOT) 12 U/L (15-37) L Alanine Aminotransferase (ALT/SGPT) 8 U/L (12-78) L Alkaline Phosphatase 120 U/L (46-116) H Total Protein 7.3 G/DL (6.4-8.2) Albumin 3.1 G/DL (3.4-5.0) L Globulin 4.2 g/dL Albumin/Globulin Ratio 0.7 (1.0-2.7) L Urine Color Pale yellow Urine Appearance Clear Urine pH 6.5 (4.5-8.0) Urine Specific [place] 1.005 (1.005-1.035) Urine Protein Negative (NEGATIVE) Urine Glucose (UA) Negative (NEGATIVE) Urine Ketones 1+ (NEGATIVE) H Urine Blood 4+ (NEGATIVE) H Urine Nitrite Negative (NEGATIVE) Urine Bilirubin Negative (NEGATIVE) Urine Urobilinogen Normal MG/DL (0.0-1.0) Urine Leukocyte Esterase 2+ (NEGATIVE) H Urine RBC 5-10 /HPF (0 - 2) H Urine WBC 5-10 /HPF (0 - 2) H Urine Squamous Epithelial Cells None /LPF (NONE/OCC) Urine Bacteria Occasional /HPF (NONE) Microbiology Date/Time Source Procedure Growth Status 08/01/18 12:35 Nasal Nares Influenza Types A,B Antigen (NBA) - Final Complete Objective HEENT: Atraumatic and normocephalic. Anicteric. Pupils are equal, round, and reactive to light and accommodation. Extraocular muscles are intact. Dry mucosal membranes. NECK: JVP less than 5 centimeter. No carotid bruits. Carotid upstrokes 2+ bilaterally. CARDIOVASCULAR: Normal S1 and S2. Regular rate and rhythm. Tachycardic. No murmurs, gallops, or rubs. LUNGS: Clear to auscultation bilaterally. ABDOMEN: Soft, nontender, and nondistended. No hepatosplenomegaly. Positive bowel sounds. EXTREMITIES: Contracted. No edema, clubbing, or cyanosis. Flex Winters MD Aug 02, 2018 15:33
[2018-08-02 16:00] VITALS: BP 122/69
[2018-08-02] MEDS ORDERED: Piperacillin/Tazobactam 3.375 GM in NS 110 ML IVPB SCH (18:00)
[2018-08-02] MEDS: Vancomycin 500mg/D5W 110ml IVPB SCH ×2 (18:16)
--- NOTE | 2018-08-02 19:29 | Diagnostic Imaging Report ---
EXAM: CT Head Without Intravenous Contrast CLINICAL HISTORY: ALOC TECHNIQUE: Axial computed tomography images of the head/brain without intravenous contrast. CTDI is 0.15, 70.38 mGy and DLP is 1351 mGy-cm. One or more of the following dose reduction techniques were used: automated exposure control, adjustment of the mA and/or kV according to patient size, use of iterative reconstruction technique. COMPARISON: No relevant prior studies available. FINDINGS: Brain: There is approximately 6 mm of midline shift towards the left the cause of which is unclear. No definite CT evidence for edema or extra-axial collection. The midline shift may be related to a congenital anomaly. If there are old studies, comparison is recommended. If indicated, MRI can be performed for further evaluation if the patient can tolerate MRI. At least 2 punctate calcifications in the brain parenchyma suggestive a prior infectious/inflammatory process. Areas of decreased density in the white matter which are nonspecific but are likely related to small vessel ischemic changes. Cerebral atrophy. The basilar cisterns appear maintained. No hemorrhage. Ventricles: Unremarkable. Bones/joints: Unremarkable. No acute fracture. Soft tissues: Unremarkable. Sinuses: Areas of mild mucosal thickening in the paranasal sinuses. Mastoid air cells: Unremarkable as visualized. No mastoid effusion. IMPRESSION: There is approximately 6 mm of midline shift towards the left the cause of which is unclear. No definite CT evidence for edema or extra-axial collection. The midline shift may be related to a congenital anomaly. If there are old studies, comparison is recommended. If indicated, MRI can be performed for further evaluation if the patient can tolerate MRI. Cerebral atrophy with probable small vessel ischemic changes. [employer] 08/02/18 19:35 Verify Receipt with Nurse Verified receipt with Lorraine Wilson on 08/02 19:35 (-07:00)
[2018-08-02 20:00] VITALS: BP 102/62
[2018-08-02] MEDS: Ipratropium 0.02% Inh Soln 2.5ml UD HHN SCH (20:34)
[2018-08-02] MEDS: Doxycycline Hyclate 100 MG in D5W 110 ML IV SCH (20:40)
[2018-08-02] MEDS: Metoprolol Tartrate 12.5mg TAB ORAL SCH (20:58)
[2018-08-03] VITALS: BP 114/75
[2018-08-03] MEDS: Ipratropium 0.02% Inh Soln 2.5ml UD HHN SCH ×4 (01:27→20:11)
[2018-08-03 04:00] VITALS: BP 134/75
[2018-08-03] MEDS: Cefepime HCl 2 GM in D5W 110 ML IV SCH (05:31)
[2018-08-03 08:00] VITALS: BP 152/99
[2018-08-03] MEDS: Levodopa/Carbidopa 25/100 tab ORAL SCH ×3 (08:11→17:13)
[2018-08-03] MEDS: Metoprolol Tartrate 12.5mg TAB ORAL SCH ×2 (08:11→20:14)
[2018-08-03] MEDS: Pramipexole 0.5mg tab ORAL SCH ×3 (08:11→17:13)
[2018-08-03] MEDS: Heparin 5000 units/ml inj SUBQ SCH ×2 (08:17→20:15)
[2018-08-03 08:21] LABS: EOSINOPHILS % (AUTO) 0.9 % (0.0-3.0); HEMATOCRIT 40.6 % (37.0-47.0); HEMOGLOBIN 13.4 G/DL (12.0-16.0); LYMPHOCYTES % (AUTO) 34.9 % (20.0-45.0); MEAN CORPUSCULAR VOLUME 86 FL (80-99); MONOCYTES % (AUTO) 6.6 % (1.0-10.0); NEUTROPHILS % (AUTO) 56.6 % (45.0-75.0); PLATELET COUNT 149 K/UL (150-450); RED BLOOD COUNT 4.74 M/UL (4.20-5.40); RED CELL DISTRIBUTION WIDTH 13.1 % (11.6-14.8); WHITE BLOOD COUNT 5.4 K/UL (4.8-10.8)
[2018-08-03] MEDS: Doxycycline Hyclate 100 MG in D5W 110 ML IV SCH ×2 (08:21→20:13)
--- NOTE | 2018-08-03 08:26 | General Progress Note ---
Assessment/Plan Problem List: (1) Altered mental status ICD Codes: R41.82 - Altered mental status, unspecified SNOMED: 661174487 (2) Weak ICD Codes: R53.1 - Weakness SNOMED: 38012156 (3) Parkinson disease ICD Codes: G20 - Parkinson's disease SNOMED: 67666700 (4) Bradycardia ICD Codes: R00.1 - Bradycardia, unspecified SNOMED: 58956838 (5) Hypotension ICD Codes: I95.9 - Hypotension, unspecified SNOMED: 12627593 (6) UTI (urinary tract infection) ICD Codes: N39.0 - Urinary tract infection, site not specified SNOMED: 13586840 Status: unchanged Assessment/Plan id psyc eval ot pt diet ivf cbc bmp am cardio neuro f/u Subjective Constitutional: Reports: weakness Allergies: Coded Allergies: No Known Allergies (Unverified , 08/01/18) All Systems: reviewed and negative except above Subjective confused lethargic in bedt Objective Last 24 Hour Vital Signs Date Time Temp Pulse Resp B/P (MAP) Pulse Ox O2 Delivery O2 Flow Rate FiO2 08/03/18 08:11 91 152/99 08/03/18 08:00 98.2 91 20 152/99 (116) 98 08/03/18 07:42 61 16 98 Room Air 21 08/03/18 07:24 74 12 97 Room Air 21 08/03/18 04:00 98.0 67 21 134/75 (94) 96 08/03/18 04:00 64 08/03/18 01:38 65 16 98 Room Air 21 08/03/18 01:28 64 14 98 Room Air 21 08/03/18 00:00 79 08/03/18 00:00 98.0 79 21 114/75 (88) 97 08/02/18 21:00 Room Air 08/02/18 20:58 59 102/62 08/02/18 20:44 63 18 97 Room Air 21 08/02/18 20:34 62 16 Room Air 21 08/02/18 20:34 62 16 96 Room Air 21 08/02/18 20:00 69 08/02/18 20:00 98.1 69 22 102/62 (75) 97 08/02/18 16:00 98.1 75 22 122/69 (86) 100 08/02/18 16:00 85 08/02/18 12:00 98.2 96 22 117/73 (88) 97 08/02/18 12:00 100 08/02/18 09:00 Room Air Intake and Output 08/02/18 08/03/18 18:59 06:59 Intake Total 420 ml Balance 420 ml Intake IV Total 420 ml # Voids 3 2 Laboratory Tests 08/02/18 13:46: Urine Color Pale yellow, Urine Appearance Clear, Urine pH 6.5, Urine Specific [place] 1.005, Urine Protein Negative, Urine Glucose (UA) Negative, Urine Ketones 1+H, Urine Blood 4+H, Urine Nitrite Negative, Urine Bilirubin Negative, Urine Urobilinogen Normal, Urine Leukocyte Esterase 2+H, Urine RBC 5-10H, Urine WBC 5-10H, Urine Squamous Epithelial Cells None, Urine Bacteria Occasional 08/03/18 07:28: White Blood Count [Pending], Red Blood Count [Pending], Hemoglobin [Pending], Hematocrit [Pending], Mean Corpuscular Volume [Pending], Mean Corpuscular Hemoglobin [Pending], Mean Corpuscular Hemoglobin Concent [Pending], Red Cell Distribution Width [Pending], Platelet Count [Pending], Mean Platelet Volume [ Pending], Neutrophils (%) (Auto) [Pending], Lymphocytes (%) (Auto) [Pending], Monocytes (%) (Auto) [Pending], Eosinophils (%) (Auto) [Pending], Basophils (%) (Auto) [Pending] 08/03/18 07:55: Sodium Level [Pending], Potassium Level [Pending], Chloride Level [Pending], Carbon Dioxide Level [Pending], Blood Urea Nitrogen [Pending], Creatinine [ Pending], Estimat Glomerular Filtration Rate [Pending], Glucose Level [Pending] , Calcium Level [Pending] Height (Feet): 5 Height (Inches): 4.00 Weight (Pounds): 121 General Appearance: lethargic, confused EENT: normal ENT inspection Neck: normal alignment Cardiovascular: normal peripheral pulses, normal rate, regular rhythm Respiratory/Chest: chest wall non-tender, lungs clear, normal breath sounds Abdomen: normal bowel sounds, non tender, soft Extremities: normal inspection Edema: no edema noted Arm (L), no edema noted Arm (R), no edema noted Leg (L), no edema noted Leg (R), no edema noted Pedal (L), no edema noted Pedal (R), no edema noted Generalized Neurologic: motor weakness Skin: normal pigmentation, warm/dry Tony Dupree DO Aug 03, 2018 08:26
[2018-08-03 08:43] LABS: ANION GAP 9 mmol/L (5-15); BLOOD UREA NITROGEN 16 mg/dL (7-18); CALCIUM 10.2 MG/DL (8.5-10.1); CARBON DIOXIDE 24 MMOL/L (21-32); CHLORIDE 106 MMOL/L (98-107); CREATININE 0.4 MG/DL (0.55-1.30); POTASSIUM 3.6 MMOL/L (3.5-5.1); SODIUM 139 MMOL/L (136-145)
[2018-08-03] MEDS ORDERED: Tubing IV Secondary IV ONE (08:51)
--- NOTE | 2018-08-03 09:25 | Pulmonology Progress Note ---
Assessment/Plan Assessment/Plan HPI Patient is a 71 year old woman, nonverbal from nursing facility who presents with hypotension and bradycardia. Apparently, the patient has been taking metoprolol in the nursing facility. She was ruled out for influenza A and B. Allergies: No Known Allergies PAST MEDICAL HISTORY: 1. Anemia. 2. Dysphagia. 3. Hypertension. 4. Quadriplegia. 5. Parkinson disease. Vital signs noted GENERAL: The patient is a very unfortunate 71-year-old female, nonverbal, in no apparent respiratory distress. HEENT: Atraumatic and normocephalic. Anicteric. Pupils are equal, round, and reactive to light and accommodation. Extraocular muscles are intact. Dry mucosal membranes. NECK: JVP less than 5 centimeter. No carotid bruits. Carotid upstrokes 2+ bilaterally. CARDIOVASCULAR: Normal S1 and S2. Regular rate and rhythm. Bradycardic. No murmurs, gallops, or rubs. LUNGS: Clear to auscultation bilaterally. ABDOMEN: Soft, nontender, and nondistended. No hepatosplenomegaly. Positive bowel sounds. EXTREMITIES: Contracted. No edema, clubbing, or cyanosis. LABORATORY FINDINGS: Sodium was 140, potassium 4.1, chloride 108, bicarbonate 25, BUN of 16, creatinine 0.4, glucose 83, and calcium is 9.1. Troponin I 0.01. WBC 5.7, hemoglobin 13.0, hematocrit of 39.9, and platelet count is 144. INR is 1.1. EKG: sinus rhythm with no acute ST and T-wave abnormality. On the rhythm strip later on in the emergencydepartment, the patient showed profound sinus bradycardia with heart rate as low as 42. CXR: No acute change Assessment/Plan The patient is a 71-year-old female with acute altered level of consciousness. Rule out probable sepsis - suspect UTI Hypotension, Bradycardia No evidence of pneumonia based on chest x-ray/no history of cough. Parkinsons Disease, h/o quadriplegia Dysphagia PLAN: Volume challenge PRN Avoid Beta blockers Continue broad spectrum antibiotics per ID Monitor labs/ cultures (blood and urine) PPX, SQH Subjective Subjective ROS Limited/Unobtainable: No Allergies: Coded Allergies: No Known Allergies (Unverified , 08/01/18) Objective Last 24 Hour Vital Signs Date Time Temp Pulse Resp B/P (MAP) Pulse Ox O2 Delivery O2 Flow Rate FiO2 08/03/18 08:11 91 152/99 08/03/18 08:00 98.2 91 20 152/99 (116) 98 08/03/18 07:42 61 16 98 Room Air 21 08/03/18 07:24 74 12 97 Room Air 21 08/03/18 04:00 98.0 67 21 134/75 (94) 96 08/03/18 04:00 64 08/03/18 01:38 65 16 98 Room Air 21 08/03/18 01:28 64 14 98 Room Air 21 08/03/18 00:00 79 08/03/18 00:00 98.0 79 21 114/75 (88) 97 08/02/18 21:00 Room Air 08/02/18 20:58 59 102/62 08/02/18 20:44 63 18 97 Room Air 21 08/02/18 20:34 62 16 Room Air 21 08/02/18 20:34 62 16 96 Room Air 21 08/02/18 20:00 69 08/02/18 20:00 98.1 69 22 102/62 (75) 97 08/02/18 16:00 98.1 75 22 122/69 (86) 100 08/02/18 16:00 85 08/02/18 12:00 98.2 96 22 117/73 (88) 97 08/02/18 12:00 100 Intake and Output 08/02/18 08/03/18 18:59 06:59 Intake Total 420 ml Balance 420 ml Intake IV Total 420 ml # Voids 3 2 Microbiology Date/Time Source Procedure Growth Status 08/01/18 12:35 Blood Blood Culture - Preliminary NO GROWTH AFTER 24 HOURS Resulted 08/01/18 12:10 Blood Blood Culture - Preliminary NO GROWTH AFTER 24 HOURS Resulted 08/01/18 12:35 Nasal Nares Influenza Types A,B Antigen (NBA) - Final Complete 08/01/18 16:00 Rectum VRE Culture - Final Enterococcus Faecalis - Vre Complete 08/01/18 16:00 Rectum - Final NO CARBAPENEM-RESISTANT ENTEROBACTERI... Complete Laboratory Tests 08/02/18 13:46: Urine Color Pale yellow, Urine Appearance Clear, Urine pH 6.5, Urine Specific [place] 1.005, Urine Protein Negative, Urine Glucose (UA) Negative, Urine Ketones 1+H, Urine Blood 4+H, Urine Nitrite Negative, Urine Bilirubin Negative, Urine Urobilinogen Normal, Urine Leukocyte Esterase 2+H, Urine RBC 5-10H, Urine WBC 5-10H, Urine Squamous Epithelial Cells None, Urine Bacteria Occasional 08/03/18 07:28: White Blood Count 5.4, Red Blood Count 4.74, Hemoglobin 13.4, Hematocrit 40.6, Mean Corpuscular Volume 86, Mean Corpuscular Hemoglobin 28.3, Mean Corpuscular Hemoglobin Concent 33.0, Red Cell Distribution Width 13.1, Platelet Count 149L, Mean Platelet Volume 7.9, Neutrophils (%) (Auto) 56.6, Lymphocytes (%) (Auto) 34.9, Monocytes (%) (Auto) 6.6, Eosinophils (%) (Auto) 0.9, Basophils (%) (Auto ) 1.0 08/03/18 07:55: Sodium Level 139, Potassium Level 3.6, Chloride Level 106, Carbon Dioxide Level 24, Anion Gap 9, Blood Urea Nitrogen 16, Creatinine 0.4L, Estimat Glomerular Filtration Rate , Glucose Level 96, Calcium Level 10.2H Current Medications Medications (Trade) Dose Ordered Sig/Alex Route PRN Reason Start Time Stop Time Status Last Admin Dose Admin Acetaminophen (Tylenol) 650 mg Q4H PRN ORAL T>100.5 08/01/18 15:15 08/31/18 15:14 Albuterol/ Ipratropium (Albuterol/ Ipratropium) 3 ml Q4H PRN HHN Shortness of Breath 08/01/18 15:15 08/06/18 15:14 Carbidopa/Levodopa (Sinemet 25/100) 1 tab THREE TIMES A DAY ORAL 08/02/18 09:00 09/01/18 08:59 08/03/18 08:11 Cefepime HCl 2 gm/ Dextrose 110 ml @ 220 mls/hr Q24H IV 08/02/18 06:00 08/09/18 05:59 08/03/18 05:31 Doxycycline Hyclate 100 mg/ Dextrose 110 ml @ 110 mls/hr Q12HR IV 08/02/18 21:00 08/09/18 20:59 08/03/18 08:21 Heparin Sodium (Porcine) (Heparin 5000 units/ml) 5,000 units EVERY 12 HOURS SUBQ 08/01/18 21:00 08/31/18 20:59 08/03/18 08:17 Ipratropium [place] (Atrovent) 500 mcg Q6HRT HHN 08/02/18 19:00 08/07/18 18:59 08/03/18 07:41 Metoprolol Tartrate (Lopressor) 12.5 mg Q12HR ORAL 08/02/18 21:00 09/01/18 20:59 08/03/18 08:11 Metronidazole 100 ml @ 100 mls/hr Q8HR IVPB 08/02/18 22:00 08/09/18 21:59 08/03/18 05:31 Morphine Sulfate (Morphine Sulfate) 2 mg Q4H PRN IVP PAIN 4-10 08/01/18 15:15 08/08/18 15:14 Ondansetron HCl (Zofran) 4 mg Q6H PRN IVP Nausea & Vomiting 08/01/18 15:15 08/31/18 15:14 Phenazopyridine HCl (Pyridium) 100 mg DAILYPRN PRN ORAL dysuria 08/01/18 15:15 08/31/18 15:14 Polyethylene Glycol (Miralax) 17 gm DAILYPRN PRN ORAL Constipation 08/01/18 15:15 08/31/18 15:14 Pramipexole (Mirapex) 0.5 mg TID ORAL 08/02/18 09:00 09/01/18 08:59 08/03/18 08:11 Temazepam (Restoril) 15 mg HSPRN PRN ORAL Insomnia 08/01/18 21:00 08/08/18 20:59 Vancomycin HCl (Vanco rx to dose) 1 ea DAILY PRN MISC per rx protocol 08/01/18 16:45 08/31/18 16:44 Vancomycin HCl 500 mg/Dextrose 110 ml @ 110 mls/hr Q24H IVPB 08/02/18 18:00 08/07/18 17:59 08/02/18 18:16 Jasvir Juarez MD Aug 03, 2018 09:25
[2018-08-03 12:00] VITALS: BP 136/80
[2018-08-03 16:00] VITALS: BP 140/80
[2018-08-03] MEDS: Vancomycin 500mg/D5W 110ml IVPB SCH ×2 (17:16)
[2018-08-03 20:00] VITALS: BP 103/68
[2018-08-04] VITALS: BP 140/73
[2018-08-04] MEDS: Ipratropium 0.02% Inh Soln 2.5ml UD HHN SCH ×4 (01:13→19:00)
[2018-08-04 04:00] VITALS: BP 140/75
[2018-08-04] MEDS: Cefepime HCl 2 GM in D5W 110 ML IV SCH (05:30)
[2018-08-04] MEDS: Vancomycin 500mg/D5W 110ml IVPB SCH ×4 (05:31→17:41)
[2018-08-04 08:00] VITALS: BP 155/92
[2018-08-04 08:04] LABS: BASOPHILS % (AUTO) 0.5 % (0.0-2.0); EOSINOPHILS % (AUTO) 0.1 % (0.0-3.0); HEMATOCRIT 40.3 % (37.0-47.0); HEMOGLOBIN 13.9 G/DL (12.0-16.0); MEAN CORPUSCULAR VOLUME 86 FL (80-99); MONOCYTES % (AUTO) 5.1 % (1.0-10.0); NEUTROPHILS % (AUTO) 80.3 % (45.0-75.0); PLATELET COUNT 137 K/UL (150-450); RED CELL DISTRIBUTION WIDTH 12.7 % (11.6-14.8); WHITE BLOOD COUNT 6.2 K/UL (4.8-10.8)
[2018-08-04 08:20] LABS: ANION GAP 9 mmol/L (5-15); BLOOD UREA NITROGEN 13 mg/dL (7-18); CALCIUM 9.9 MG/DL (8.5-10.1); CARBON DIOXIDE 24 MMOL/L (21-32); CHLORIDE 107 MMOL/L (98-107); CREATININE 0.5 MG/DL (0.55-1.30); POTASSIUM 3.8 MMOL/L (3.5-5.1); SODIUM 140 MMOL/L (136-145)
[2018-08-04] MEDS: BuPROPion XL 150mg tab ORAL SCH (09:00)
--- NOTE | 2018-08-04 09:19 | Infectious Diseases Prog Note ---
Assessment/Plan Assessment/Plan A: The patient is a 71-year-old female with acute altered level of consciousness. Rule out probable sepsis - suspect UTI Afebrile. Normal white blood cells. + (08/01)blood Cx /2 GPC, Rpt ( 08/02) BlCx : P Rule out bacteremia/urinary tract infection. No evidence of pneumonia based on chest x-ray/no history of cough. CT of the brain : no evid of CVA History of Parkinson disease Anemia PLAN: dc Doxy and Flagyl d# 2 We will continue the patient on vancomycin and cefepime #4 /7 Monitor CBC. Monitor BMP. Monitor cultures (blood and urine) WILL HOLD dc , await final blood Cx result Subjective Allergies: Coded Allergies: No Known Allergies (Unverified , 08/01/18) Subjective Afebrile Objective Vital Signs Last 24 Hour Vital Signs Date Time Temp Pulse Resp B/P (MAP) Pulse Ox O2 Delivery O2 Flow Rate FiO2 08/04/18 08:00 98.2 84 18 155/92 (113) 99 08/04/18 07:28 71 18 98 Room Air 21 08/04/18 07:18 79 17 96 Room Air 21 08/04/18 04:00 102 08/04/18 04:00 98.0 98 20 140/75 (96) 100 08/04/18 01:33 74 18 98 Room Air 21 08/04/18 01:14 71 18 97 Room Air 21 08/04/18 00:00 94 08/04/18 00:00 98.1 91 19 140/73 (95) 97 08/03/18 21:00 Room Air 08/03/18 20:22 78 18 99 Room Air 21 08/03/18 20:14 66 103/68 08/03/18 20:11 74 18 96 Room Air 21 08/03/18 20:00 98.2 66 22 103/68 (80) 95 08/03/18 20:00 86 08/03/18 16:00 99 08/03/18 16:00 98.8 83 20 140/80 (100) 97 08/03/18 13:19 67 18 98 Room Air 21 08/03/18 13:11 68 16 98 Room Air 21 08/03/18 12:00 104 08/03/18 12:00 98.0 82 20 136/80 (98) 98 Height (Feet): 5 Height (Inches): 4.00 Weight (Pounds): 121 HEENT: anicteric Respiratory/Chest: no respiratory distress Cardiovascular: regularly irregular Abdomen: no organomegaly Microbiology Date/Time Source Procedure Growth Status 08/02/18 07:52 Blood Blood Culture - Preliminary NO GROWTH AFTER 24 HOURS Resulted 08/02/18 07:47 Blood Blood Culture - Preliminary NO GROWTH AFTER 24 HOURS Resulted 08/01/18 12:35 Blood Blood Culture - Preliminary Resulted 08/01/18 12:10 Blood Blood Culture - Preliminary NO GROWTH AFTER 48 HOURS Resulted 08/01/18 16:00 Nasal Nares MRSA Culture - Final NO METHICILLIN RESISTANT STAPH AUREUS... Complete 08/01/18 12:35 Nasal Nares Influenza Types A,B Antigen (NBA) - Final Complete 08/02/18 13:46 Straight Cath Urine Culture - Final NO GROWTH AFTER 48 HOURS Complete 08/01/18 16:00 Rectum VRE Culture - Final Enterococcus Faecalis - Vre Complete 08/01/18 16:00 Rectum - Final NO CARBAPENEM-RESISTANT ENTEROBACTERI... Complete Laboratory Tests Test 08/03/18 16:55 08/04/18 07:40 Vancomycin Level Trough 4.2 ug/mL (5.0-12.0) L White Blood Count 6.2 K/UL (4.8-10.8) Red Blood Count 4.70 M/UL (4.20-5.40) Hemoglobin 13.9 G/DL (12.0-16.0) Hematocrit 40.3 % (37.0-47.0) Mean Corpuscular Volume 86 FL (80-99) Mean Corpuscular Hemoglobin 29.5 PG (27.0-31.0) Mean Corpuscular Hemoglobin Concent 34.4 G/DL (32.0-36.0) Red Cell Distribution Width 12.7 % (11.6-14.8) Platelet Count 137 K/UL (150-450) L Mean Platelet Volume 8.1 FL (6.5-10.1) Neutrophils (%) (Auto) 80.3 % (45.0-75.0) H Lymphocytes (%) (Auto) 14.0 % (20.0-45.0) L Monocytes (%) (Auto) 5.1 % (1.0-10.0) Eosinophils (%) (Auto) 0.1 % (0.0-3.0) Basophils (%) (Auto) 0.5 % (0.0-2.0) Sodium Level 140 MMOL/L (136-145) Potassium Level 3.8 MMOL/L (3.5-5.1) Chloride Level 107 MMOL/L (98-107) Carbon Dioxide Level 24 MMOL/L (21-32) Anion Gap 9 mmol/L (5-15) Blood Urea Nitrogen 13 mg/dL (7-18) Creatinine 0.5 MG/DL (0.55-1.30) L Estimat Glomerular Filtration Rate mL/min (>60) Glucose Level 126 MG/DL (74-106) H Calcium Level 9.9 MG/DL (8.5-10.1) Current Medications Medications (Trade) Dose Ordered Sig/Alex Route PRN Reason Start Time Stop Time Status Last Admin Dose Admin Acetaminophen (Tylenol) 650 mg Q4H PRN ORAL T>100.5 08/01/18 15:15 08/31/18 15:14 Albuterol/ Ipratropium (Albuterol/ Ipratropium) 3 ml Q4H PRN HHN Shortness of Breath 08/01/18 15:15 08/06/18 15:14 Bupropion HCl (Wellbutrin XL) 150 mg DAILY ORAL 08/04/18 09:00 09/03/18 08:59 Carbidopa/Levodopa (Sinemet 25/100) 1 tab THREE TIMES A DAY ORAL 08/02/18 09:00 09/01/18 08:59 08/03/18 17:13 Cefepime HCl 2 gm/ Dextrose 110 ml @ 220 mls/hr Q24H IV 08/02/18 06:00 08/09/18 05:59 08/04/18 05:30 Donepezil HCl (Aricept) 5 mg QHS ORAL 08/04/18 21:00 09/03/18 20:59 Doxycycline Hyclate 100 mg/ Dextrose 110 ml @ 110 mls/hr Q12HR IV 08/02/18 21:00 08/09/18 20:59 08/03/18 20:13 Heparin Sodium (Porcine) (Heparin 5000 units/ml) 5,000 units EVERY 12 HOURS SUBQ 08/01/18 21:00 08/31/18 20:59 08/03/18 20:15 Ipratropium [place] (Atrovent) 500 mcg Q6HRT HHN 08/02/18 19:00 08/07/18 18:59 08/04/18 07:18 Metoprolol Tartrate (Lopressor) 12.5 mg Q12HR ORAL 08/02/18 21:00 09/01/18 20:59 08/03/18 20:14 Metronidazole 100 ml @ 100 mls/hr Q8HR IVPB 08/02/18 22:00 08/09/18 21:59 08/04/18 06:16 Morphine Sulfate (Morphine Sulfate) 2 mg Q4H PRN IVP PAIN 4-10 08/01/18 15:15 08/08/18 15:14 Ondansetron HCl (Zofran) 4 mg Q6H PRN IVP Nausea & Vomiting 08/01/18 15:15 08/31/18 15:14 Phenazopyridine HCl (Pyridium) 100 mg DAILYPRN PRN ORAL dysuria 08/01/18 15:15 08/31/18 15:14 Polyethylene Glycol (Miralax) 17 gm DAILYPRN PRN ORAL Constipation 08/01/18 15:15 08/31/18 15:14 Pramipexole (Mirapex) 0.5 mg TID ORAL 08/02/18 09:00 09/01/18 08:59 08/03/18 17:13 Temazepam (Restoril) 15 mg HSPRN PRN ORAL Insomnia 08/01/18 21:00 08/08/18 20:59 Vancomycin HCl (Vanco rx to dose) 1 ea DAILY PRN MISC per rx protocol 08/01/18 16:45 08/31/18 16:44 Vancomycin HCl 500 mg/Dextrose 110 ml @ 110 mls/hr Q12HR@0500,1700 IVPB 08/04/18 05:00 08/09/18 04:59 08/04/18 05:31 Juventino Young MD Aug 04, 2018 09:19
--- NOTE | 2018-08-04 09:34 | Physician Query ---
--------- THIS DOCUMENT IS A PERMANENT PART OF THE MEDICAL RECORD --------- PLEASE COMPLETE DOCUMENT BEFORE SIGNING Dear Dr. Dupree Date: 2017 Route Process Administrator/CDS Name: Chandrika Mathur Route Process Administrator / CDS Phone # [phone] Exercise your independent professional judgment when responding to query. Question asked do not imply a particular answer is desired/expected. Clinical Documentation States: "Altered Mental Status" documented in H&P and progress notes. Patient is admitted with Hypotension. Clinical Findings Show: Vitals: BP - 95/50, Pulse - 48. Labs: Glucose - 153 Please indicate the nature and chronicity of the condition below: [ ] Metabolic Encephalopathy [ ] Toxic Encephalopathy [ ] Toxic - Metabolic Encephalopathy [ ] Progressive Encephalopathy [ ] Encephalopathy, Other [ ] Other: [ ] Not Applicable Severity [ ] Acute [ ] Chronic [ ] Acute on Chronic [ ] Unable to determine Condition Present on Admission: [ ] Yes [ ] No [ ] Clinically Undeterminable Please also document in your Progress Notes and/or Discharge Summary and indicate if the condition was present on admission. Vicky HAWKD
--- NOTE | 2018-08-04 09:42 | Cardiology Report ---
APPROVED REPORT EXAM: Two-dimensional and M-mode echocardiogram with Doppler and color Doppler. INDICATION Bradycardia M-Mode DIMENSIONS IVSd1.0 (0.7-1.1cm)Left Atrium (MM)2.9 (1.6-4.0cm) LVDd3.5 (3.5-5.6cm)Aortic Root3.2 (2.0-3.7cm) PWd0.8 (0.7-1.1cm)Aortic Cusp Exc.1.9 (1.5-2.0cm) LVDs1.5 (2.5-4.0cm) PWs1.3 cm Technically difficult study due to patient contracted. Study quality precludes accurate assessment of regional wall motion. Normal left ventricular chamber size, systolic function and wall motion. Left ventricular ejection fraction estimated to be 55 %. No evidence of left ventricular hypertrophy. Anterior Echo-free space, may be due to pericardial fat or effusion. All other cardiac chamber sizes are within normal limits. Mild focal aortic valve sclerosis with adequate cusp excursion. Thickened mitral valve leaflets with normal excursion. Mild mitral annulus and aortic root calcification. Pulmonic valve not well visualized. Normal tricuspid valve structure. IVC dilated at 2.1 cm with physiological collapse, suggestive of increased RA pressure. A color flow and spectral Doppler study was performed and revealed: Mild aortic insufficiency. Trace mitral regurgitation. Mitral diastolic velocities suggest mild left ventricular diastolic dysfunction (Grade I). Mild to moderate tricuspid regurgitation. Tricuspid systolic velocities suggests peak right ventricular systolic pressure of 46 mmHg, consistent with moderate pulmonary hypertension. Trace pulmonic regurgitation present.
[2018-08-04] MEDS: Pramipexole 0.5mg tab ORAL SCH ×3 (09:56→17:41)
[2018-08-04] MEDS: Doxycycline Hyclate 100 MG in D5W 110 ML IV SCH (09:56)
[2018-08-04] MEDS: Metoprolol Tartrate 12.5mg TAB ORAL SCH ×2 (09:57→20:43)
[2018-08-04] MEDS: Heparin 5000 units/ml inj SUBQ SCH ×2 (09:57→20:47)
[2018-08-04] MEDS: Levodopa/Carbidopa 25/100 tab ORAL SCH ×3 (09:57→17:41)
--- NOTE | 2018-08-04 11:21 | Pulmonology Progress Note ---
Assessment/Plan Problems: (1) Sepsis (2) UTI (urinary tract infection) (3) At high risk for aspiration (4) Tachycardia (5) Parkinson disease (6) Altered mental status (7) Hypotension (8) Dementia Assessment/Plan still mildly tachycardic swallow evaluation check cultures BP better Med/surg if ok with cardio dvt prophylaxis Subjective ROS Limited/Unobtainable: Yes Interval Events: awake, not talking Allergies: Coded Allergies: No Known Allergies (Unverified , 08/01/18) Objective Last 24 Hour Vital Signs Date Time Temp Pulse Resp B/P (MAP) Pulse Ox O2 Delivery O2 Flow Rate FiO2 08/04/18 09:57 84 155/92 08/04/18 09:00 Room Air 08/04/18 08:00 98.2 84 18 155/92 (113) 99 08/04/18 08:00 91 08/04/18 07:28 71 18 98 Room Air 21 08/04/18 07:18 79 17 96 Room Air 08/04/18 04:00 102 08/04/18 04:00 98.0 98 20 140/75 (96) 100 08/04/18 01:33 74 18 98 Room Air 21 08/04/18 01:14 71 18 97 Room Air 21 08/04/18 00:00 94 08/04/18 00:00 98.1 91 19 140/73 (95) 97 08/03/18 21:00 Room Air 08/03/18 20:22 78 18 99 Room Air 21 08/03/18 20:14 66 103/68 08/03/18 20:11 74 18 96 Room Air 21 08/03/18 20:00 98.2 66 22 103/68 (80) 95 08/03/18 20:00 86 08/03/18 16:00 99 08/03/18 16:00 98.8 83 20 140/80 (100) 97 08/03/18 13:19 67 18 98 Room Air 21 08/03/18 13:11 68 16 98 Room Air 21 08/03/18 12:00 104 08/03/18 12:00 98.0 82 20 136/80 (98) 98 Intake and Output 08/03/18 08/04/18 19:00 07:00 Intake Total 360 ml Balance 360 ml Intake Oral 360 ml # Voids 3 1 General Appearance: cachetic HEENT: normocephalic, atraumatic Respiratory/Chest: chest wall non-tender, lungs clear Breasts: no masses Cardiovascular: normal peripheral pulses Abdomen: normal bowel sounds, soft, non tender Genitourinary: normal external genitalia Extremities: no clubbing Skin: no lesions Neurologic/Psychiatric: equipment lead II-XII grossly normal Microbiology Date/Time Source Procedure Growth Status 08/02/18 07:52 Blood Blood Culture - Preliminary NO GROWTH AFTER 24 HOURS Resulted 08/02/18 07:47 Blood Blood Culture - Preliminary NO GROWTH AFTER 24 HOURS Resulted 08/01/18 12:35 Blood Blood Culture - Preliminary Resulted 08/01/18 12:10 Blood Blood Culture - Preliminary NO GROWTH AFTER 48 HOURS Resulted 08/01/18 16:00 Nasal Nares MRSA Culture - Final NO METHICILLIN RESISTANT STAPH AUREUS... Complete 08/01/18 12:35 Nasal Nares Influenza Types A,B Antigen (NBA) - Final Complete 08/02/18 13:46 Straight Cath Urine Culture - Final NO GROWTH AFTER 48 HOURS Complete 08/01/18 16:00 Rectum VRE Culture - Final Enterococcus Faecalis - Vre Complete 08/01/18 16:00 Rectum - Final NO CARBAPENEM-RESISTANT ENTEROBACTERI... Complete Laboratory Tests 08/03/18 16:55: Vancomycin Level Trough 4.2L 08/04/18 07:40: White Blood Count 6.2, Red Blood Count 4.70, Hemoglobin 13.9, Hematocrit 40.3, Mean Corpuscular Volume 86, Mean Corpuscular Hemoglobin 29.5, Mean Corpuscular Hemoglobin Concent 34.4, Red Cell Distribution Width 12.7, Platelet Count 137L, Mean Platelet Volume 8.1, Neutrophils (%) (Auto) 80.3H, Lymphocytes (%) (Auto) 14.0L, Monocytes (%) (Auto) 5.1, Eosinophils (%) (Auto) 0.1, Basophils (%) (Auto ) 0.5, Sodium Level 140, Potassium Level 3.8, Chloride Level 107, Carbon Dioxide Level 24, Anion Gap 9, Blood Urea Nitrogen 13, Creatinine 0.5L, Estimat Glomerular Filtration Rate , Glucose Level 126H, Calcium Level 9.9 Current Medications Medications (Trade) Dose Ordered Sig/Alex Route PRN Reason Start Time Stop Time Status Last Admin Dose Admin Acetaminophen (Tylenol) 650 mg Q4H PRN ORAL T>100.5 08/01/18 15:15 08/31/18 15:14 Albuterol/ Ipratropium (Albuterol/ Ipratropium) 3 ml Q4H PRN HHN Shortness of Breath 08/01/18 15:15 08/06/18 15:14 Bupropion HCl (Wellbutrin XL) 150 mg DAILY ORAL 08/04/18 09:00 09/03/18 08:59 Carbidopa/Levodopa (Sinemet 25/100) 1 tab THREE TIMES A DAY ORAL 08/02/18 09:00 09/01/18 08:59 08/04/18 09:57 Cefepime HCl 2 gm/ Dextrose 110 ml @ 220 mls/hr Q24H IV 08/02/18 06:00 08/09/18 05:59 08/04/18 05:30 Donepezil HCl (Aricept) 5 mg QHS ORAL 08/04/18 21:00 09/03/18 20:59 Heparin Sodium (Porcine) (Heparin 5000 units/ml) 5,000 units EVERY 12 HOURS SUBQ 08/01/18 21:00 08/31/18 20:59 08/04/18 09:57 Ipratropium [place] (Atrovent) 500 mcg Q6HRT HHN 08/02/18 19:00 08/07/18 18:59 08/04/18 07:18 Metoprolol Tartrate (Lopressor) 12.5 mg Q12HR ORAL 08/02/18 21:00 09/01/18 20:59 08/04/18 09:57 Morphine Sulfate (Morphine Sulfate) 2 mg Q4H PRN IVP PAIN 4-10 08/01/18 15:15 08/08/18 15:14 Ondansetron HCl (Zofran) 4 mg Q6H PRN IVP Nausea & Vomiting 08/01/18 15:15 08/31/18 15:14 Phenazopyridine HCl (Pyridium) 100 mg DAILYPRN PRN ORAL dysuria 08/01/18 15:15 08/31/18 15:14 Polyethylene Glycol (Miralax) 17 gm DAILYPRN PRN ORAL Constipation 08/01/18 15:15 08/31/18 15:14 Pramipexole (Mirapex) 0.5 mg TID ORAL 08/02/18 09:00 09/01/18 08:59 08/04/18 09:56 Temazepam (Restoril) 15 mg HSPRN PRN ORAL Insomnia 08/01/18 21:00 08/08/18 20:59 Vancomycin HCl (Vanco rx to dose) 1 ea DAILY PRN MISC per rx protocol 08/01/18 16:45 08/31/18 16:44 Vancomycin HCl 500 mg/Dextrose 110 ml @ 110 mls/hr Q12HR@0500,1700 IVPB 08/04/18 05:00 08/09/18 04:59 08/04/18 05:31 Aleksandr Sibley MD Aug 04, 2018 11:21
[2018-08-04 11:57] VITALS: BP 116/76
--- NOTE | 2018-08-04 13:44 | General Progress Note ---
Assessment/Plan Problem List: (1) Altered mental status ICD Codes: R41.82 - Altered mental status, unspecified SNOMED: 127698429 (2) Weak ICD Codes: R53.1 - Weakness SNOMED: 98415506 (3) Parkinson disease ICD Codes: G20 - Parkinson's disease SNOMED: 90511591 (4) Bradycardia ICD Codes: R00.1 - Bradycardia, unspecified SNOMED: 89760862 (5) Hypotension ICD Codes: I95.9 - Hypotension, unspecified SNOMED: 69232704 (6) UTI (urinary tract infection) ICD Codes: N39.0 - Urinary tract infection, site not specified SNOMED: 27236244 Status: stable, progressing Assessment/Plan id psyc eval ot pt diet ivf dc if clear Subjective Constitutional: Reports: weakness Allergies: Coded Allergies: No Known Allergies (Unverified , 08/01/18) All Systems: reviewed and negative except above Subjective confused calm in bed Objective Last 24 Hour Vital Signs Date Time Temp Pulse Resp B/P (MAP) Pulse Ox O2 Delivery O2 Flow Rate FiO2 08/04/18 12:00 106 08/04/18 11:57 98.1 74 20 116/76 (89) 95 08/04/18 09:57 84 155/92 08/04/18 09:00 Room Air 08/04/18 08:00 98.2 84 18 155/92 (113) 99 08/04/18 08:00 91 08/04/18 07:28 71 18 98 Room Air 21 08/04/18 07:18 79 17 96 Room Air 08/04/18 04:00 102 08/04/18 04:00 98.0 98 20 140/75 (96) 100 08/04/18 01:33 74 18 98 Room Air 21 08/04/18 01:14 71 18 97 Room Air 21 08/04/18 00:00 94 08/04/18 00:00 98.1 91 19 140/73 (95) 97 08/03/18 21:00 Room Air 08/03/18 20:22 78 18 99 Room Air 21 08/03/18 20:14 66 103/68 08/03/18 20:11 74 18 96 Room Air 21 08/03/18 20:00 98.2 66 22 103/68 (80) 95 08/03/18 20:00 86 08/03/18 16:00 99 08/03/18 16:00 98.8 83 20 140/80 (100) 97 Intake and Output 08/03/18 08/04/18 18:59 06:59 Intake Total 360 ml Balance 360 ml Intake Oral 360 ml # Voids 3 1 Laboratory Tests 08/03/18 16:55: Vancomycin Level Trough 4.2L 08/04/18 07:40: White Blood Count 6.2, Red Blood Count 4.70, Hemoglobin 13.9, Hematocrit 40.3, Mean Corpuscular Volume 86, Mean Corpuscular Hemoglobin 29.5, Mean Corpuscular Hemoglobin Concent 34.4, Red Cell Distribution Width 12.7, Platelet Count 137L, Mean Platelet Volume 8.1, Neutrophils (%) (Auto) 80.3H, Lymphocytes (%) (Auto) 14.0L, Monocytes (%) (Auto) 5.1, Eosinophils (%) (Auto) 0.1, Basophils (%) (Auto ) 0.5, Sodium Level 140, Potassium Level 3.8, Chloride Level 107, Carbon Dioxide Level 24, Anion Gap 9, Blood Urea Nitrogen 13, Creatinine 0.5L, Estimat Glomerular Filtration Rate , Glucose Level 126H, Calcium Level 9.9 Height (Feet): 5 Height (Inches): 4.00 Weight (Pounds): 121 General Appearance: lethargic EENT: normal ENT inspection Neck: normal alignment Cardiovascular: normal peripheral pulses, normal rate, regular rhythm Respiratory/Chest: chest wall non-tender, lungs clear, normal breath sounds Abdomen: normal bowel sounds, non tender, soft Extremities: normal inspection Edema: no edema noted Arm (L), no edema noted Arm (R), no edema noted Leg (L), no edema noted Leg (R), no edema noted Pedal (L), no edema noted Pedal (R), no edema noted Generalized Neurologic: motor weakness Skin: normal pigmentation, warm/dry Tony Dupree DO Aug 04, 2018 13:44
[2018-08-04 16:00] VITALS: BP 133/77
--- NOTE | 2018-08-04 16:15 | Consultation ---
DATE OF CONSULTATION: 08/04/2018 HISTORY OF PRESENT ILLNESS: The patient is a female patient who came to the hospital, 71 years old. She has hypotension and bradycardia, but she also has altered mental status, confusion, her cognition has declined below baseline, so her attending physician has requested daily psychiatric consultation for this patient. Because of her altered mental status, her cognition declined below her baseline. She did come from [facility]. I saw and assessed this patient at bedside today, very confused and disorganized, apparently her cognition has significantly declined below baseline. She has increased weakness and lethargy and that is why there was a consultation requested to help improve her cognition to prevent any further decline in cognition and increase her alertness and awareness. MEDICAL HISTORY: She has weakness and contractures. She also has COPD, hypertension, Parkinson disease. She has urinary tract infection and bradycardia as well. ALLERGIES: She has no known drug allergies. PSYCHOTROPIC MEDICATIONS: On admission, the patient is currently on a medication regimen of Wellbutrin XL 150 mg daily. SUBSTANCE ABUSE HISTORY: Denies. FAMILY PSYCH HISTORY: Denies. PAIN ASSESSMENT: 12/07 pain. DEVELOPMENTAL PROBLEMS: Denies. SOCIAL HISTORY: Lives in [facility]. Financially supported by [employer] and Medicare. PSYCHIATRIC HISTORY: History of major depressive disorder, severe, recurrent with psychotic features, rule out pseudodementia. STRENGTHS: She is motivated to get better and she has a place to live. WEAKNESSES AND LIABILITIES: She is impulsive and minimal support system. MENTAL STATUS EXAMINATION: This is a 71-year-old female. Appearance is disheveled. Attitude, irritable and agitated. Affect, guarded and restricted. Intellect poor. Mood depressed and anxious. Motor activity, psychomotor agitation. Attention span is poor. Orientation x2. Speech is pressured. Thought process, disorganized and illogical. Thought content, auditory hallucinations and paranoid delusions. Insight and judgment is poor. DIAGNOSES: 1. Major depression with psychotic features, rule out pseudodementia. 2. Medical history includes weakness, sepsis, urinary tract infection, bradycardia. 3. Psychosocial stressors, financial. PLAN: Treat this patient with Wellbutrin XL 150 daily and Aricept 5 mg at bedtime. Provided with 20 minutes of cognitive therapy to help identify automatic negative thoughts and help her to convert the automatic negative thoughts to more positive thoughts to reduce depression, agitation, and mood lability. Chart reviewed and discussed with staff. Seen and assessed in her room Rubio Mccord M.D. DR: Ashok JOB#: [id number] CC:
[2018-08-04 20:15] VITALS: BP 114/63
[2018-08-04] MEDS ORDERED: Donepezil 5mg Tab ORAL SCH (21:00)
--- NOTE | 2018-08-04 23:30 | Consultation ---
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 ON EXAM: Oriented to self, hospital and November. M 11/30-0, 10/02- 1 & 3 Unable to remember presidents do math or VS problems Significant dysarthria. Right VII central Tongue protruded. Right > left quadriparesis with bilateral hand, ankle and toe contractures. Globally diminished DTRs. CT of brain with left brain smaller than right with shift of midline structures from R to L. IMPRESSION: Unknown neurodegenerative disease. Parkinsonian syndrome. AMS related to hypotension resolved. REC: Continue present Rx. Brain MRI Francesca Callejas M.D., M.S.[facility]. FRANCESCA CALLEJAS Aug 04, 2018 23:30
[2018-08-05] VITALS: BP 136/90
--- NOTE | 2018-08-05 01:17 | Cardiology Progress Note ---
Assessment/Plan Assessment/Plan LATE ENTRY NOTE: DATE OF SERVICE: Aug 04, 2018 TIME PATIENT SEEN: 13:08pm 1. Sinus bradycardia, resolved after withdrawal of metoprolol, now tachycardic, continue low dose metoprolol. 2. Hypotension, not clear the etiology, could be hypovolemia as the patient is clinically dry. Continue intravenous fluids. 3. Mild pulmonary HTN. Subjective Subjective Sinus tachycardia at 106. Objective Last 24 Hour Vital Signs Date Time Temp Pulse Resp B/P (MAP) Pulse Ox O2 Delivery O2 Flow Rate FiO2 08/05/18 00:00 98.8 72 18 136/90 (105) 96 08/04/18 21:00 Room Air 08/04/18 20:43 70 114/63 08/04/18 20:15 99.1 70 18 114/63 (80) 98 08/04/18 19:45 Room Air 21 08/04/18 19:44 Room Air 21 08/04/18 16:00 108 08/04/18 16:00 98.1 100 20 133/77 (95) 95 08/04/18 13:52 83 17 97 Room Air 21 08/04/18 13:41 86 16 96 Room Air 21 08/04/18 12:00 106 08/04/18 11:57 98.1 74 20 116/76 (89) 95 08/04/18 09:57 84 155/92 08/04/18 09:00 Room Air 08/04/18 08:00 98.2 84 18 155/92 (113) 99 08/04/18 08:00 91 08/04/18 07:28 71 18 98 Room Air 21 08/04/18 07:18 79 17 96 Room Air 21 08/04/18 04:00 102 08/04/18 04:00 98.0 98 20 140/75 (96) 100 08/04/18 01:33 74 18 98 Room Air 21 08/04/18 01:14 71 18 97 Room Air 21 Intake and Output 08/04/18 08/05/18 19:00 07:00 Intake Total 110 ml Balance 110 ml Intake Oral 110 ml # Voids 1 # Bowel Movements 1 2D Echo: LVEF 55%, Mild AR, RVSP 46 mmHg, Grade I LVDD Laboratory Tests Test 08/04/18 07:40 White Blood Count 6.2 K/UL (4.8-10.8) Red Blood Count 4.70 M/UL (4.20-5.40) Hemoglobin 13.9 G/DL (12.0-16.0) Hematocrit 40.3 % (37.0-47.0) Mean Corpuscular Volume 86 FL (80-99) Mean Corpuscular Hemoglobin 29.5 PG (27.0-31.0) Mean Corpuscular Hemoglobin Concent 34.4 G/DL (32.0-36.0) Red Cell Distribution Width 12.7 % (11.6-14.8) Platelet Count 137 K/UL (150-450) L Mean Platelet Volume 8.1 FL (6.5-10.1) Neutrophils (%) (Auto) 80.3 % (45.0-75.0) H Lymphocytes (%) (Auto) 14.0 % (20.0-45.0) L Monocytes (%) (Auto) 5.1 % (1.0-10.0) Eosinophils (%) (Auto) 0.1 % (0.0-3.0) Basophils (%) (Auto) 0.5 % (0.0-2.0) Sodium Level 140 MMOL/L (136-145) Potassium Level 3.8 MMOL/L (3.5-5.1) Chloride Level 107 MMOL/L (98-107) Carbon Dioxide Level 24 MMOL/L (21-32) Anion Gap 9 mmol/L (5-15) Blood Urea Nitrogen 13 mg/dL (7-18) Creatinine 0.5 MG/DL (0.55-1.30) L Estimat Glomerular Filtration Rate mL/min (>60) Glucose Level 126 MG/DL (74-106) H Calcium Level 9.9 MG/DL (8.5-10.1) Microbiology Date/Time Source Procedure Growth Status 08/02/18 07:52 Blood Blood Culture - Preliminary NO GROWTH AFTER 24 HOURS Resulted 08/02/18 07:47 Blood Blood Culture - Preliminary NO GROWTH AFTER 24 HOURS Resulted 08/02/18 13:46 Straight Cath Urine Culture - Final NO GROWTH AFTER 48 HOURS Complete Objective HEENT: Atraumatic and normocephalic. Anicteric. Pupils are equal, round, and reactive to light and accommodation. Extraocular muscles are intact. Dry mucosal membranes. NECK: JVP less than 5 centimeter. No carotid bruits. Carotid upstrokes 2+ bilaterally. CARDIOVASCULAR: Normal S1 and S2. Regular rate and rhythm. Tachycardic. No murmurs, gallops, or rubs. LUNGS: Clear to auscultation bilaterally. ABDOMEN: Soft, nontender, and nondistended. No hepatosplenomegaly. Positive bowel sounds. EXTREMITIES: Contracted. No edema, clubbing, or cyanosis. Flex Winters MD Aug 05, 2018 01:17
[2018-08-05] MEDS: Ipratropium 0.02% Inh Soln 2.5ml UD HHN SCH ×4 (01:49→19:00)
[2018-08-05 04:00] VITALS: BP 133/75
[2018-08-05] MEDS: Vancomycin 500mg/D5W 110ml IVPB SCH ×2 (04:36)
[2018-08-05] MEDS: Cefepime HCl 2 GM in D5W 110 ML IV SCH (05:47)
[2018-08-05 06:43] LABS: BASOPHILS % (AUTO) 0.9 % (0.0-2.0); EOSINOPHILS % (AUTO) 0.6 % (0.0-3.0); HEMATOCRIT 37.9 % (37.0-47.0); HEMOGLOBIN 12.5 G/DL (12.0-16.0); LYMPHOCYTES % (AUTO) 25.3 % (20.0-45.0); MEAN CORPUSCULAR VOLUME 85 FL (80-99); MONOCYTES % (AUTO) 6.9 % (1.0-10.0); NEUTROPHILS % (AUTO) 66.3 % (45.0-75.0); PLATELET COUNT 155 K/UL (150-450); RED BLOOD COUNT 4.44 M/UL (4.20-5.40); RED CELL DISTRIBUTION WIDTH 12.8 % (11.6-14.8); WHITE BLOOD COUNT 5.6 K/UL (4.8-10.8)
[2018-08-05 07:04] LABS: ALBUMIN 3.1 G/DL (3.4-5.0); ALBUMIN/GLOBULIN RATIO 0.7 (1.0-2.7); ALKALINE PHOSPHATASE 107 U/L (46-116); ANION GAP 5 mmol/L (5-15); ASPARTATE AMINO TRANSFERASE 15 U/L (15-37); BILIRUBIN,TOTAL 1.1 MG/DL (0.2-1.0); BLOOD UREA NITROGEN 13 mg/dL (7-18); CALCIUM 9.8 MG/DL (8.5-10.1); CARBON DIOXIDE 27 MMOL/L (21-32); CHLORIDE 108 MMOL/L (98-107); CREATININE 0.5 MG/DL (0.55-1.30); PHOSPHORUS 2.3 MG/DL (2.5-4.9); POTASSIUM 3.5 MMOL/L (3.5-5.1); SODIUM 140 MMOL/L (136-145)
[2018-08-05 07:08] LABS: BILIRUBIN,DIRECT 0.2 MG/DL (0.0-0.3)
[2018-08-05 07:48] LABS: ALANINE AMINOTRANSFERASE 11 U/L (12-78)
[2018-08-05 08:00] VITALS: BP 132/77
[2018-08-05] MEDS: Metoprolol Tartrate 12.5mg TAB ORAL SCH (09:28)
[2018-08-05] MEDS: Pramipexole 0.5mg tab ORAL SCH ×3 (09:29→18:27)
[2018-08-05] MEDS: Levodopa/Carbidopa 25/100 tab ORAL SCH ×3 (09:30→18:27)
[2018-08-05] MEDS: BuPROPion XL 150mg tab ORAL SCH (09:31)
[2018-08-05] MEDS: Heparin 5000 units/ml inj SUBQ SCH (09:35)
--- NOTE | 2018-08-05 10:39 | Pulmonology Progress Note ---
Assessment/Plan Problems: (1) Sepsis (2) UTI (urinary tract infection) (3) At high risk for aspiration (4) Tachycardia (5) Parkinson disease (6) Altered mental status (7) Hypotension (8) Dementia Assessment/Plan doing better vital signs much better swallow evaluation check cultures BP better Med/surg if ok with cardio dvt prophylaxis swallow study noted: 1. CHANGED DIET TO LIQUIFIED PUREED, LIKE NECTAR THICK SOUP CONSISTENCY WITH NECTAR THICK LIQUIDS. 2. STRICT ASPIRATION/REFLUX PRECAUTIONS WITH 1TO1 FEEDING. 3. VIDEOSWALLOW STUDY IP OR OP. 4. SPEECH EVAL Subjective ROS Limited/Unobtainable: No Constitutional: Reports: no symptoms HEENT: Repors: no symptoms Respiratory: Reports: no symptoms Allergies: Coded Allergies: No Known Allergies (Unverified , 11/22/15) Objective Last 24 Hour Vital Signs Date Time Temp Pulse Resp B/P (MAP) Pulse Ox O2 Delivery O2 Flow Rate FiO2 08/05/18 09:28 83 128/78 08/05/18 08:00 97.0 78 18 132/77 (95) 98 08/05/18 07:54 78 18 96 Room Air 21 08/05/18 04:00 98.8 78 20 133/75 (94) 96 08/05/18 01:49 68 18 99 Room Air 21 08/05/18 01:41 71 18 97 Room Air 21 08/05/18 00:00 98.8 72 18 136/90 (105) 96 08/04/18 21:00 Room Air 08/04/18 20:43 70 114/63 08/04/18 20:15 99.1 70 18 114/63 (80) 98 08/04/18 19:45 Room Air 21 08/04/18 19:44 Room Air 21 08/04/18 16:00 108 08/04/18 16:00 98.1 100 20 133/77 (95) 95 08/04/18 13:52 83 17 97 Room Air 21 08/04/18 13:41 86 16 96 Room Air 21 08/04/18 12:00 106 08/04/18 11:57 98.1 74 20 116/76 (89) 95 Intake and Output 08/04/18 08/05/18 19:00 07:00 Intake Total 110 ml Balance 110 ml Intake Oral 110 ml # Voids 1 3 # Bowel Movements 1 General Appearance: WD/WN HEENT: normocephalic, atraumatic Respiratory/Chest: chest wall non-tender, lungs clear Cardiovascular: normal peripheral pulses, normal rate Abdomen: normal bowel sounds, soft, non tender Genitourinary: normal external genitalia Extremities: no cyanosis Neurologic/Psychiatric: abnormal gait Lymphatic: no groin adenopathy Microbiology Date/Time Source Procedure Growth Status 08/02/18 13:46 Straight Cath Urine Culture - Final NO GROWTH AFTER 48 HOURS Complete Laboratory Tests 08/05/18 05:50: White Blood Count 5.6, Red Blood Count 4.44, Hemoglobin 12.5, Hematocrit 37.9, Mean Corpuscular Volume 85, Mean Corpuscular Hemoglobin 28.2, Mean Corpuscular Hemoglobin Concent 33.1, Red Cell Distribution Width 12.8, Platelet Count 155, Mean Platelet Volume 8.1, Neutrophils (%) (Auto) 66.3, Lymphocytes (%) (Auto) 25.3, Monocytes (%) (Auto) 6.9, Eosinophils (%) (Auto) 0.6, Basophils (%) (Auto ) 0.9, Sodium Level 140, Potassium Level 3.5, Chloride Level 108H, Carbon Dioxide Level 27, Anion Gap 5, Blood Urea Nitrogen 13, Creatinine 0.5L, Estimat Glomerular Filtration Rate , Glucose Level 103, Calcium Level 9.8, Phosphorus Level 2.3L, Magnesium Level 1.2L, Total Bilirubin 1.1H, Direct Bilirubin 0.2, Aspartate Amino Transf (AST/SGOT) 15, Alanine Aminotransferase (ALT/SGPT) 11L, Alkaline Phosphatase 107, Total Protein 7.4, Albumin 3.1L, Globulin 4.3, Albumin /Globulin Ratio 0.7L Current Medications Medications (Trade) Dose Ordered Sig/Alex Route PRN Reason Start Time Stop Time Status Last Admin Dose Admin Acetaminophen (Tylenol) 650 mg Q4H PRN ORAL T>100.5 08/01/18 15:15 08/31/18 15:14 Albuterol/ Ipratropium (Albuterol/ Ipratropium) 3 ml Q4H PRN HHN Shortness of Breath 08/01/18 15:15 08/06/18 15:14 Bupropion HCl (Wellbutrin XL) 150 mg DAILY ORAL 08/04/18 09:00 09/03/18 08:59 08/05/18 09:31 Carbidopa/Levodopa (Sinemet 25/100) 1 tab THREE TIMES A DAY ORAL 08/02/18 09:00 09/01/18 08:59 08/05/18 09:30 Cefepime HCl 2 gm/ Dextrose 110 ml @ 220 mls/hr Q24H IV 08/02/18 06:00 08/09/18 05:59 08/05/18 05:47 Donepezil HCl (Aricept) 5 mg QHS ORAL 08/04/18 21:00 09/03/18 20:59 08/04/18 20:42 Heparin Sodium (Porcine) (Heparin 5000 units/ml) 5,000 units EVERY 12 HOURS SUBQ 08/01/18 21:00 08/31/18 20:59 08/05/18 09:35 Ipratropium [place] (Atrovent) 500 mcg Q6HRT HHN 08/02/18 19:00 08/07/18 18:59 08/05/18 07:56 Metoprolol Tartrate (Lopressor) 12.5 mg Q12HR ORAL 08/02/18 21:00 09/01/18 20:59 08/05/18 09:28 Morphine Sulfate (Morphine Sulfate) 2 mg Q4H PRN IVP PAIN 4-10 08/01/18 15:15 08/08/18 15:14 Ondansetron HCl (Zofran) 4 mg Q6H PRN IVP Nausea & Vomiting 08/01/18 15:15 08/31/18 15:14 Phenazopyridine HCl (Pyridium) 100 mg DAILYPRN PRN ORAL dysuria 08/01/18 15:15 08/31/18 15:14 Polyethylene Glycol (Miralax) 17 gm DAILYPRN PRN ORAL Constipation 08/01/18 15:15 08/31/18 15:14 Pramipexole (Mirapex) 0.5 mg TID ORAL 08/02/18 09:00 09/01/18 08:59 08/05/18 09:29 Temazepam (Restoril) 15 mg HSPRN PRN ORAL Insomnia 08/01/18 21:00 08/08/18 20:59 Vancomycin HCl (Vanco rx to dose) 1 ea DAILY PRN MISC per rx protocol 08/01/18 16:45 08/31/18 16:44 Vancomycin HCl 500 mg/Dextrose 110 ml @ 110 mls/hr Q12HR@0500,1700 IVPB 08/04/18 05:00 08/09/18 04:59 08/05/18 04:36 Aleksandr Sibley MD Aug 05, 2018 10:39
--- NOTE | 2018-08-05 10:50 | Infectious Diseases Prog Note ---
Assessment/Plan Assessment/Plan A: The patient is a 71-year-old female with acute altered level of consciousness. Rule out probable sepsis - suspect UTI Afebrile. Normal white blood cells. + (08/01)blood Cx 1/ CoNS ( contaminant ) Rpt ( 08/02) BlCx : P Rule out bacteremia/urinary tract infection. No evidence of pneumonia based on chest x-ray/no history of cough. CT of the brain : no evid of CVA History of Parkinson disease Anemia PLAN: Continue the patient on cefepime # 5 /7 11/ Sp vancomycin d# 5 11/ Sp Doxy and Flagyl d# 2 Monitor CBC. Monitor BMP. Monitor cultures (blood and urine) ok to DC w cont of Cefepime x 2 d Subjective Allergies: Coded Allergies: No Known Allergies (Unverified , 11/22/15) Subjective Afebrile Objective Vital Signs Last 24 Hour Vital Signs Date Time Temp Pulse Resp B/P (MAP) Pulse Ox O2 Delivery O2 Flow Rate FiO2 08/05/18 09:28 83 128/78 08/05/18 09:00 Room Air 08/05/18 08:00 97.0 78 18 132/77 (95) 98 08/05/18 07:54 78 18 96 Room Air 21 08/05/18 04:00 98.8 78 20 133/75 (94) 96 08/05/18 01:49 68 18 99 Room Air 21 08/05/18 01:41 71 18 97 Room Air 21 08/05/18 00:00 98.8 72 18 136/90 (105) 96 08/04/18 21:00 Room Air 08/04/18 20:43 70 114/63 08/04/18 20:15 99.1 70 18 114/63 (80) 98 08/04/18 19:45 Room Air 21 08/04/18 19:44 Room Air 21 08/04/18 16:00 108 08/04/18 16:00 98.1 100 20 133/77 (95) 95 08/04/18 13:52 83 17 97 Room Air 21 08/04/18 13:41 86 16 96 Room Air 21 08/04/18 12:00 106 08/04/18 11:57 98.1 74 20 116/76 (89) 95 Height (Feet): 5 Height (Inches): 4.00 Weight (Pounds): 121 HEENT: anicteric Respiratory/Chest: no respiratory distress Cardiovascular: regular rhythm Abdomen: no organomegaly Microbiology Date/Time Source Procedure Growth Status 08/02/18 13:46 Straight Cath Urine Culture - Final NO GROWTH AFTER 48 HOURS Complete Laboratory Tests Test 08/05/18 05:50 White Blood Count 5.6 K/UL (4.8-10.8) Red Blood Count 4.44 M/UL (4.20-5.40) Hemoglobin 12.5 G/DL (12.0-16.0) Hematocrit 37.9 % (37.0-47.0) Mean Corpuscular Volume 85 FL (80-99) Mean Corpuscular Hemoglobin 28.2 PG (27.0-31.0) Mean Corpuscular Hemoglobin Concent 33.1 G/DL (32.0-36.0) Red Cell Distribution Width 12.8 % (11.6-14.8) Platelet Count 155 K/UL (150-450) Mean Platelet Volume 8.1 FL (6.5-10.1) Neutrophils (%) (Auto) 66.3 % (45.0-75.0) Lymphocytes (%) (Auto) 25.3 % (20.0-45.0) Monocytes (%) (Auto) 6.9 % (1.0-10.0) Eosinophils (%) (Auto) 0.6 % (0.0-3.0) Basophils (%) (Auto) 0.9 % (0.0-2.0) Sodium Level 140 MMOL/L (136-145) Potassium Level 3.5 MMOL/L (3.5-5.1) Chloride Level 108 MMOL/L (98-107) H Carbon Dioxide Level 27 MMOL/L (21-32) Anion Gap 5 mmol/L (5-15) Blood Urea Nitrogen 13 mg/dL (7-18) Creatinine 0.5 MG/DL (0.55-1.30) L Estimat Glomerular Filtration Rate mL/min (>60) Glucose Level 103 MG/DL (74-106) Calcium Level 9.8 MG/DL (8.5-10.1) Phosphorus Level 2.3 MG/DL (2.5-4.9) L Magnesium Level 1.2 MG/DL (1.8-2.4) L Total Bilirubin 1.1 MG/DL (0.2-1.0) H Direct Bilirubin 0.2 MG/DL (0.0-0.3) Aspartate Amino Transf (AST/SGOT) 15 U/L (15-37) Alanine Aminotransferase (ALT/SGPT) 11 U/L (12-78) L Alkaline Phosphatase 107 U/L (46-116) Total Protein 7.4 G/DL (6.4-8.2) Albumin 3.1 G/DL (3.4-5.0) L Globulin 4.3 g/dL Albumin/Globulin Ratio 0.7 (1.0-2.7) L Current Medications Medications (Trade) Dose Ordered Sig/Alex Route PRN Reason Start Time Stop Time Status Last Admin Dose Admin Acetaminophen (Tylenol) 650 mg Q4H PRN ORAL T>100.5 08/01/18 15:15 08/31/18 15:14 Albuterol/ Ipratropium (Albuterol/ Ipratropium) 3 ml Q4H PRN HHN Shortness of Breath 08/01/18 15:15 08/06/18 15:14 Bupropion HCl (Wellbutrin XL) 150 mg DAILY ORAL 08/04/18 09:00 09/03/18 08:59 08/05/18 09:31 Carbidopa/Levodopa (Sinemet 25/100) 1 tab THREE TIMES A DAY ORAL 08/02/18 09:00 09/01/18 08:59 08/05/18 09:30 Cefepime HCl 2 gm/ Dextrose 110 ml @ 220 mls/hr Q24H IV 08/02/18 06:00 08/09/18 05:59 08/05/18 05:47 Donepezil HCl (Aricept) 5 mg QHS ORAL 08/04/18 21:00 09/03/18 20:59 08/04/18 20:42 Heparin Sodium (Porcine) (Heparin 5000 units/ml) 5,000 units EVERY 12 HOURS SUBQ 08/01/18 21:00 08/31/18 20:59 08/05/18 09:35 Ipratropium [place] (Atrovent) 500 mcg Q6HRT HHN 08/02/18 19:00 08/07/18 18:59 08/05/18 07:56 Metoprolol Tartrate (Lopressor) 12.5 mg Q12HR ORAL 08/02/18 21:00 09/01/18 20:59 08/05/18 09:28 Morphine Sulfate (Morphine Sulfate) 2 mg Q4H PRN IVP PAIN 4-10 08/01/18 15:15 08/08/18 15:14 Ondansetron HCl (Zofran) 4 mg Q6H PRN IVP Nausea & Vomiting 08/01/18 15:15 08/31/18 15:14 Phenazopyridine HCl (Pyridium) 100 mg DAILYPRN PRN ORAL dysuria 08/01/18 15:15 08/31/18 15:14 Polyethylene Glycol (Miralax) 17 gm DAILYPRN PRN ORAL Constipation 08/01/18 15:15 08/31/18 15:14 Pramipexole (Mirapex) 0.5 mg TID ORAL 08/02/18 09:00 09/01/18 08:59 08/05/18 09:29 Temazepam (Restoril) 15 mg HSPRN PRN ORAL Insomnia 08/01/18 21:00 08/08/18 20:59 Vancomycin HCl (Vanco rx to dose) 1 ea DAILY PRN MISC per rx protocol 08/01/18 16:45 08/31/18 16:44 Vancomycin HCl 500 mg/Dextrose 110 ml @ 110 mls/hr Q12HR@0500,1700 IVPB 08/04/18 05:00 08/09/18 04:59 08/05/18 04:36 Juventino Young MD Aug 05, 2018 10:50
[2018-08-05 12:00] VITALS: BP 127/63
--- NOTE | 2018-08-05 12:47 | General Progress Note ---
Assessment/Plan Problem List: (1) Altered mental status ICD Codes: R41.82 - Altered mental status, unspecified SNOMED: 744464879 (2) Weak ICD Codes: R53.1 - Weakness SNOMED: 56480444 (3) Parkinson disease ICD Codes: G20 - Parkinson's disease SNOMED: 54305224 (4) Bradycardia ICD Codes: R00.1 - Bradycardia, unspecified SNOMED: 66744040 (5) Hypotension ICD Codes: I95.9 - Hypotension, unspecified SNOMED: 76428085 (6) UTI (urinary tract infection) ICD Codes: N39.0 - Urinary tract infection, site not specified SNOMED: 79838998 Status: stable, progressing Assessment/Plan id psyc eval ot pt diet ivf dc if clear Subjective Constitutional: Reports: weakness Allergies: Coded Allergies: No Known Allergies (Unverified , 11/22/15) All Systems: reviewed and negative except above Subjective confused calm in bed Objective Last 24 Hour Vital Signs Date Time Temp Pulse Resp B/P (MAP) Pulse Ox O2 Delivery O2 Flow Rate FiO2 08/05/18 09:28 83 128/78 08/05/18 09:00 Room Air 08/05/18 08:04 72 18 99 Room Air 21 08/05/18 08:00 97.0 78 18 132/77 (95) 98 08/05/18 07:54 78 18 96 Room Air 21 08/05/18 04:00 98.8 78 20 133/75 (94) 96 08/05/18 01:49 68 18 99 Room Air 21 08/05/18 01:41 71 18 97 Room Air 21 08/05/18 00:00 98.8 72 18 136/90 (105) 96 08/04/18 21:00 Room Air 08/04/18 20:43 70 114/63 08/04/18 20:15 99.1 70 18 114/63 (80) 98 08/04/18 19:45 Room Air 21 08/04/18 19:44 Room Air 21 08/04/18 16:00 108 08/04/18 16:00 98.1 100 20 133/77 (95) 95 08/04/18 13:52 83 17 97 Room Air 21 08/04/18 13:41 86 16 96 Room Air 21 Intake and Output 08/04/18 08/05/18 19:00 07:00 Intake Total 110 ml Balance 110 ml Intake Oral 110 ml # Voids 1 3 # Bowel Movements 1 Laboratory Tests 08/05/18 05:50: White Blood Count 5.6, Red Blood Count 4.44, Hemoglobin 12.5, Hematocrit 37.9, Mean Corpuscular Volume 85, Mean Corpuscular Hemoglobin 28.2, Mean Corpuscular Hemoglobin Concent 33.1, Red Cell Distribution Width 12.8, Platelet Count 155, Mean Platelet Volume 8.1, Neutrophils (%) (Auto) 66.3, Lymphocytes (%) (Auto) 25.3, Monocytes (%) (Auto) 6.9, Eosinophils (%) (Auto) 0.6, Basophils (%) (Auto ) 0.9, Sodium Level 140, Potassium Level 3.5, Chloride Level 108H, Carbon Dioxide Level 27, Anion Gap 5, Blood Urea Nitrogen 13, Creatinine 0.5L, Estimat Glomerular Filtration Rate , Glucose Level 103, Calcium Level 9.8, Phosphorus Level 2.3L, Magnesium Level 1.2L, Total Bilirubin 1.1H, Direct Bilirubin 0.2, Aspartate Amino Transf (AST/SGOT) 15, Alanine Aminotransferase (ALT/SGPT) 11L, Alkaline Phosphatase 107, Total Protein 7.4, Albumin 3.1L, Globulin 4.3, Albumin /Globulin Ratio 0.7L Height (Feet): 5 Height (Inches): 4.00 Weight (Pounds): 121 General Appearance: lethargic EENT: normal ENT inspection Neck: normal alignment Cardiovascular: normal peripheral pulses, normal rate, regular rhythm Respiratory/Chest: chest wall non-tender, lungs clear, normal breath sounds Abdomen: normal bowel sounds, non tender, soft Extremities: normal inspection Edema: no edema noted Arm (L), no edema noted Arm (R), no edema noted Leg (L), no edema noted Leg (R), no edema noted Pedal (L), no edema noted Pedal (R), no edema noted Generalized Neurologic: motor weakness Skin: normal pigmentation, warm/dry Tony Dupree DO Aug 05, 2018 12:47
--- NOTE | 2018-08-05 12:58 | Diagnostic Imaging Report ---
Indication: Altered level of consciousness Technique: The head was imaged in a 1.5 Sandra magnet. Sequences obtained include sagittal and axial T1 FLAIR, axial T2 fast spin echo with fat saturation, axial T2 FLAIR, diffusion and ADC map. Comparison: None Findings: There is mild prominence of the sulci, ventricles, and basal cisterns consistent with atrophy. Mild, nonspecific T2 hyperintensity noted within white matter. This may be due to chronic small vessel disease. There is no restricted diffusion. Stewart-white differentiation is normal. There is no mass effect, midline shift, edema, or hemorrhage. There are no abnormal extra-axial or intra-axial fluid collections. The corpus callosum and sella are unremarkable. The brainstem and cerebellum are unremarkable. Bone marrow signal within the visualized osseous structures appears age appropriate and unremarkable otherwise. Impression: No acute intracranial findings. Mild atrophy and evidence of chronic small vessel disease involving white matter tracts.
--- NOTE | 2018-08-05 13:00 | Consultation ---
DATE OF CONSULTATION: 08/04/2018 NEUROLOGY CONSULTATION CONSULTING PHYSICIAN: Harry Callejas M.D. REQUESTING PHYSICIAN: Tony Dupree D.O. HISTORY: Ms. Jennifer Gao is a 72-year-old, right-handed, lady, who does have a past history of a parkinsonian syndrome, quadriparesis due to unknown reasons, hypertension, and dysphagia, who lives in a long-term. She was apparently noted to be hypotensive and with an altered mental state at her long-term on 08/01/2018 and as a result of that, was brought into the [facility] emergency room. At this point in time, she feels better than when she came into the hospital. She is alert and responsive. She, however, is quite oblivious as to what caused her present condition. She tells me that approximately four years ago, she was diagnosed with Parkinson disease and she rapidly became weak, developed contractures, and started to shake. She has been unable to walk for approximately four years and unable to feed herself. PAST MEDICAL HISTORY: Significant for a parkinsonian syndrome, quadriparesis due to an unknown reason, hypertension, and dysphagia. FAMILY HISTORY: Nothing significant as per the patient. PERSONAL HISTORY: Home: She lives in long-term. Work: She is unemployed. Habits: She denies the use of alcohol, tobacco, or illicit drugs. PRESENT MEDICATIONS: Aricept 5 mg, Wellbutrin 150 mg, vancomycin, metoprolol, Atrovent, Mirapex 0.5 mg 3 tid, Sinemet 25/100 tid, cefepime, heparin for DVT prophylaxis, Restoril, DuoNeb inhaler,Tylenol, morphine, MiraLAX, Zofran, and Pyridium. PHYSICAL EXAMINATION: GENERAL: She is a well-developed, but lean lady, lying in bed, in no acute distress. VITAL SIGNS: Pulse 70/minute, blood pressure 114/63 mmHg, respirations 18/minute, and temperature 99.1 degrees Fahrenheit. HEAD: Normocephalic and atraumatic. NECK: No neck rigidity was observed. EENT: Examination benign except for tongue protruding out. SPINE: Cervical, thoracic, and lumbosacral spine revealed a kyphoscoliotic curve. NEUROLOGICAL EXAMINATION: MENTAL STATUS EXAMINATION: She was awake and alert. She was oriented to self, hospital, and November. She did not know the name of the hospital, date, or year. She was able to recall 3/3 words immediately, but could only remember 1/3 words in 1 minute and 3 minutes. She was unable to tell me, who the present President was and who prior Presidents were. Her mathematical skills were impaired. Her visuospatial function was also impaired. SPEECH: She had a significant dysarthria. LANGUAGE: She was able to express herself and comprehend relatively well in [place]ian. CRANIAL NERVE EXAMINATION: II: The visual ng were intact on confrontation testing. III, IV & : The external ocular movements were full and the pupils 3 mm in diameter, equal, round, regular, and reactive to light. V: She had normal facial sensations, and the temporales, masseters, and pterygoids functioned normally. VII: She had a right VII central facial paresis. VIII: She was able to hear and had no nystagmus. IX: The palate moved symmetrically on phonation. X: She had no hoarseness of voice. XI: The sternocleidomastoids and trapezii functioned. XII: The tongue was protruded in the midline and stayed protruded all the time. MOTOR SYSTEM: The tone was minimally increased in all four extremities with a combination of spasticity and mild rigidity. Examination of muscle mass revealed generalized muscle wasting. In addition, she had significant contractures of her fingers, ankles, toes, and knees. Examination of power was exceedingly difficult to perform. She had a significant quadriparesis involving the distal muscles more than the proximal muscles. SENSORY EXAMINATION: She was able to discern light touch. She was unable to cooperate further sensory modalities. REFLEXES: Trace+ and bilaterally symmetrical at the biceps, triceps, brachioradialis, and knees, 0 at both ankles. The plantar responses were mute bilaterally. COORDINATION, STANCE & GAIT: Could not be tested. DIAGNOSTIC IMPRESSION: 1. Ms. Jennifer Gao is a 72-year-old, right-handed, lady, with a past history of a parkinsonian syndrome and quadriparesis due to reasons unknown to her, hypertension, and dysphagia, who was hospitalized on 08/01/2018 from a long-term for an altered mental state associated with hypotension. Since she has been here, she has been treated with appropriate antibiotics, her blood pressures have come up and her mental state has cleared. She, however, continues to have significant cognitive and motor problems. 2. On neurological examination, at this time, she is oriented to self only. She is disoriented to the name of the hospital, the date, and the year. She has significant problems with recent and remote memory, a significant dysarthria, a right VII central facial paresis, and she keeps her tongue protruded out. She has a right greater than left quadriparesis involving the distal muscles more than the proximal muscles with significant hand, ankle, toe, and knee contractures, globally diminished deep tendon reflexes with loss of plantar responses, and an inability to stand and walk. 3. The CT scan of the brain reveals a small right hemisphere compared to the left with shift of midline structures from the right side to the left side. 4. Laboratory data obtained thus far have revealed a relatively normal CBC except for low platelet counts. The chemistry panel on admission revealed that her albumin was low at 2.9. Her urinalysis on admission revealed 2+ leukocyte esterase and 5-10 red blood cells and white blood cells per high-power field. 5. The patient's history, neurological examination, laboratory data, and imaging studies are most compatible with, an altered mental state related to hypotension, most probably related to an acute infectious process, which is now resolving. The patient also demonstrates signs of a neurodegenerative disease, the exact type of disease is unknown to us. She does have a parkinsonian syndrome in addition. RECOMMENDATIONS: 1. Agree with management thus far. 2. Continue the patient on the present antiparkinsonian regimen. 3. An MRI scan of the brain will be ordered to better delineate the patient's intracranial pathology. 4. Treatment of infectious process as per the patient's infectious disease doctor. 5. The patient will be observed closely and depending on how she fares over the next day or so, further recommendations will be given. Thank you for entrusting me with the care of Ms. Gao. I shall follow her with you. Harry Callejas M.D., M.S.P.H. DR: LEONARD JOB#: [id number] CC: OSCAR
[2018-08-05] MEDS ORDERED: Tubing IV Secondary IV ONE (14:10)
[2018-08-05 16:00] VITALS: BP 108/65
[2018-08-05] MEDS ORDERED: SINEMET CR 25/101 EA ORAL ×2 (18:00→18:01)
[2018-08-05] MEDS ORDERED: CEFEPIME-D2 GM/50 ML IVPB ×2 (18:04→18:05)
--- NOTE | 2018-08-05 23:55 | Cardiology Progress Note ---
Assessment/Plan Assessment/Plan 1. Sinus bradycardia, resolved, continue low dose metoprolol. 2. Hypotension, not clear the etiology, could be hypovolemia as the patient is clinically dry. Continue intravenous fluids. 3. Mild pulmonary HTN. Subjective Subjective Sinus rhythm at 70. Objective Last 24 Hour Vital Signs Date Time Temp Pulse Resp B/P (MAP) Pulse Ox O2 Delivery O2 Flow Rate FiO2 08/05/18 16:00 98.7 70 18 108/65 (79) 99 08/05/18 14:13 69 18 99 Room Air 21 08/05/18 14:02 74 18 97 Room Air 21 08/05/18 12:00 97.1 87 18 127/63 (84) 97 08/05/18 09:28 83 128/78 08/05/18 09:00 Room Air 08/05/18 08:04 72 18 99 Room Air 21 08/05/18 08:00 97.0 78 18 132/77 (95) 98 08/05/18 07:54 78 18 96 Room Air 08/05/18 04:00 98.8 78 20 133/75 (94) 96 08/05/18 01:49 68 18 99 Room Air 21 08/05/18 01:41 71 18 97 Room Air 21 08/05/18 00:00 98.8 72 18 136/90 (105) 96 Intake and Output 08/04/18 08/05/18 19:00 07:00 Intake Total 110 ml Balance 110 ml Intake Oral 110 ml # Voids 1 3 # Bowel Movements 1 2D Echo: LVEF 55%, Mild AR, RVSP 46 mmHg, Grade I LVDD Laboratory Tests Test 08/05/18 05:50 White Blood Count 5.6 K/UL (4.8-10.8) Red Blood Count 4.44 M/UL (4.20-5.40) Hemoglobin 12.5 G/DL (12.0-16.0) Hematocrit 37.9 % (37.0-47.0) Mean Corpuscular Volume 85 FL (80-99) Mean Corpuscular Hemoglobin 28.2 PG (27.0-31.0) Mean Corpuscular Hemoglobin Concent 33.1 G/DL (32.0-36.0) Red Cell Distribution Width 12.8 % (11.6-14.8) Platelet Count 155 K/UL (150-450) Mean Platelet Volume 8.1 FL (6.5-10.1) Neutrophils (%) (Auto) 66.3 % (45.0-75.0) Lymphocytes (%) (Auto) 25.3 % (20.0-45.0) Monocytes (%) (Auto) 6.9 % (1.0-10.0) Eosinophils (%) (Auto) 0.6 % (0.0-3.0) Basophils (%) (Auto) 0.9 % (0.0-2.0) Sodium Level 140 MMOL/L (136-145) Potassium Level 3.5 MMOL/L (3.5-5.1) Chloride Level 108 MMOL/L (98-107) H Carbon Dioxide Level 27 MMOL/L (21-32) Anion Gap 5 mmol/L (5-15) Blood Urea Nitrogen 13 mg/dL (7-18) Creatinine 0.5 MG/DL (0.55-1.30) L Estimat Glomerular Filtration Rate mL/min (>60) Glucose Level 103 MG/DL (74-106) Calcium Level 9.8 MG/DL (8.5-10.1) Phosphorus Level 2.3 MG/DL (2.5-4.9) L Magnesium Level 1.2 MG/DL (1.8-2.4) L Total Bilirubin 1.1 MG/DL (0.2-1.0) H Direct Bilirubin 0.2 MG/DL (0.0-0.3) Aspartate Amino Transf (AST/SGOT) 15 U/L (15-37) Alanine Aminotransferase (ALT/SGPT) 11 U/L (12-78) L Alkaline Phosphatase 107 U/L (46-116) Total Protein 7.4 G/DL (6.4-8.2) Albumin 3.1 G/DL (3.4-5.0) L Globulin 4.3 g/dL Albumin/Globulin Ratio 0.7 (1.0-2.7) L Objective HEENT: Atraumatic and normocephalic. Anicteric. Pupils are equal, round, and reactive to light and accommodation. Extraocular muscles are intact. Dry mucosal membranes. NECK: JVP less than 5 centimeter. No carotid bruits. Carotid upstrokes 2+ bilaterally. CARDIOVASCULAR: Normal S1 and S2. Regular rate and rhythm. No murmurs, gallops, or rubs. LUNGS: Clear to auscultation bilaterally. ABDOMEN: Soft, nontender, and nondistended. No hepatosplenomegaly. Positive bowel sounds. EXTREMITIES: Contracted. No edema, clubbing, or cyanosis. Flex Winters MD Aug 05, 2018 23:55
--- NOTE | 2018-08-06 04:30 | Progress Note ---
DATE: 08/05/2018 NOTE: POOR AUDIO SUBJECTIVE: This is a 71-year-old female patient with hypotension, , psychomotor agitation, , confusion, . The patient is very lethargic . That is why her attending physician has requested daily psychiatric consultation. The patient has bradycardia as well. MENTAL STATUS EXAMINATION: This is a 71-year-old female patient. Appearance is disheveled. Attitude, irritable and agitated. Affect, guarded and restricted. Intellect poor. Mood, depressed and anxious. Motor activity, psychomotor agitation. Attention span is poor. Orientation x2. Speech is pressured. Thought process, disorganized and logical. Thought content, auditory and visual hallucinations. Insight and judgment is poor. DIAGNOSIS: Major depressive disorder, severe, recurrent with psychotic features, rule out dementia with psychosis. PLAN: Treat her with Aricept 5 mg at bedtime to prevent further decline in cognition and also Wellbutrin XL 150 mg daily to treat depression energy level, concentration, and focus. She has mostly decreased energy level. . Provided with 20 minutes of cognitive behavioral therapy . Chart reviewed and discussed with staff. Seen and assessed in her room. Rubio Mccord M.D. DR: GRIS JOB#: [id number] CC:
--- NOTE | 2018-08-07 11:08 | Discharge Summary ---
Discharge Summary Discharge Summary _ DATE OF ADMISSION: 08/01/2018 DATE OF DISCHARGE: 08/05/2018 REASON FOR ADMISSION: 66 years old female with history of hypertension, Parkinson disease, dysphagia, GERD, presented to emergency department for evaluation due to hypotension and altered level of consciousness. Upon evaluation vital signs reveal blood pressure 95/50 and pulse rate of 48. EKG revealed sinus bradycardia , no acute ischemic changes. Chest x-ray revealed no acute cardiopulmonary pathology. Troponin was negative. Laboratory workup revealed no leukocytosis stable hemoglobin and hematocrit. Stable renal parameters. Urinalysis with evidence of pyuria, occasional bacteria . Heart rate dropped to 40s. Patient was given 1 mg of V atropine and pacer pads left on patient. Blood pressure was stable . Patient admitted for further management with diagnoses of bradycardia, hypotension, acute altered mental status , rule out sepsis, possible UTI. CONSULTANTS: medical billing coordinator Dr. Winters neurologist Dr. Callejas pulmonary Dr. Sibley ID specialist Dr. Young psychiatrist Dr. Mccord [facility] COURSE: Patient admitted. Cell Stripper Final closely followed . Patient was at home on metoprolol 25 mg extended release, likely source of bradycardia. Metoprolol was on hold. Blood pressure was managed with hydralazine. No evidence of AV block on EKG. Patient was continued with rhythm monitoring on telemetry for few days. Per medical billing coordinator, hypotension was of unclear etiology, possibly due to hypovolemia. Patient was clinically dry on initial presentation. Patient responded to intravenous fluid in emergency department . Blood pressure improved upon arrival on the floor. Echocardiogram revealed preserved ejection fraction 55%, no wall motion abnormality. No evidence of left ventricular hypertrophy. [id number] tricuspid regurgitation. Right ventricular systolic pressure of 46 consistent with mild pulmonary hypertension. ID specialist closely followed. Patient started on empiric antibiotics for probable UTI and possible sepsis. CT of the head revealed 6 mm midline shift toward the left. No evidence of edema or extra-axial collection. Noted cerebral atrophy with probable small vessel ischemic changes. Subsequently neurology consult was requested. Neurologist seen and evaluated patient. Per neurologist patient history ,neurological examination, laboratory data, and imaging studies were most compatible with altered mental status related to hypotension , most probably related to acute infectious process, which was resolving. Patient also demonstrated signs of neurodegenerative disease , and in addition she had a Parkinson syndrome. Neurologist recommended continue present management of Parkinson's disease, including Sinemet and Mirapex. MRI of the brain was ordered to better delineate the patient intracranial pathology , which revealed no acute intracranial findings. Mild atrophy and evidence of chronic small vessel disease involving white matter matter tracts noted. Infectious disease specialist closely followed . Per ID acute altered level of consciousness was probably likely due to infection. Per ID conclusion, patient probably had sepsis, suspected UTI despite negative urine culture, which was obtained after antibiotics started. Blood culture were negative. Patient was on broad-spectrum antibiotics. Chest x-ray revealed no evidence of pneumonia. Infectious disease specialist recommended to complete the additional 2 days of antibiotics at the shelter facility. Bedside swallow evaluation revealed moderate to severe dysphagia. Diet changed as per speech therapist recommendations. Strict aspiration/reflux precautions were maintained. Video swallow evaluation was recommended, which could be done as outpatient. Nutritional recommendations implemented in plan of care. Electrolytes were closely monitored and n corrected as needed. Patient was working with physical and occupational therapists. Psychiatrist seen and evaluated patient ,diagnosed patient with major depressive disorder with psychotic features. Psychiatric medication regimen was optimized. As patient clinically improved, mental status was slowly returning to baseline. Patient clinically stabilized and was ready for discharge to shelter facility for continuation of care FINAL DIAGNOSES: Possible sepsis Probable urinary tract infection Hypotension, likely secondary to hypovolemia -resolved Bradycardia ,likely secondary to beta ping-resolved Altered level of conciseness due to acute toxic encephalopathy due to infectious process Parkinson disease Dysphagia Major depressive disorder , severe, recurrent ,with psychotic features DISCHARGE MEDICATIONS: See Medication Reconciliation list. DISCHARGE INSTRUCTIONS: Patient was discharged to the shelter facility. Follow up with medical doctor at the facility. I have been assigned to dictate discharge summary for this account. I was not involved in the patient's management. Alyssa Toledo NP Aug 07, 2018 11:08
== END 2018-08-05 17:23 | DRG 871 ==
LOC: EDBD → EMR 14:00 → 2E 14:27 → MERGE 14:27 → EDBEDREQ 15:40 → 4E 08-04 20:14
DX: A41.9 Sepsis, unspecified organism (principal); G93.41 Metabolic encephalopathy; G82.50 Quadriplegia, unspecified; N39.0 Urinary tract infection, site not specified; F33.3 Major depressive disorder, recurrent, severe with psychotic symptoms; R00.1 Bradycardia, unspecified; I10 Essential (primary) hypertension; G20 Parkinson's disease; R13.10 Dysphagia, unspecified; T44.7X5A Adverse effect of beta-adrenoreceptor antagonists, initial encounter; K21.9 Gastro-esophageal reflux disease without esophagitis; E86.1 Hypovolemia; M24.50 Contracture, unspecified joint; J44.9 Chronic obstructive pulmonary disease, unspecified; G31.9 Degenerative disease of nervous system, unspecified; I27.20 Pulmonary hypertension, unspecified
CPT/HCPCS: 36415; 70450; 70551; 71045; 80048; 80053; 80202; 81001; 82248; 82550; 82553; 83605; 83735; 84100; 84484; 85025; 85610; 85730; 86710; 87040; 87081; 87086; 87181; 93005; 93306; 94640; 94664; 96361; 96365; 96366; 96375; 97803; 99285; J3490

== ENCOUNTER 2018-10-25 11:01 | Inpatient (IN) | payer MEDICARE, MEDICAID ==
[~2018-10-25] VITALS: Ht 149.9 cm; Wt 54.5 kg
[2018-10-25 11:01] VITALS: BP 169/111
[~2018-10-25 11:01] MED LIST changes: +ACETAMINOPHEN325 M1 ORAL; +CEFEPIME-D2 GM/50 ML IVPB; +METOPROLOL SUCC25 MG ORAL; +MULTI VITAMIN1 EACH ORAL; +PRAZOSIN HCL1 MG PO; +SINEMET CR 25/101 EA ORAL
[2018-10-25 11:51] LABS: APPEARANCE,URINE CLEAR; BILIRUBIN, URINE NEGATIVE (NEGATIVE); COLOR,URINE PALE YELLOW; GLUCOSE, URINE (UA) NEGATIVE (NEGATIVE); KETONES,URINE NEGATIVE (NEGATIVE); LEUKOCYTE ESTERASE ,URINE 2+ (NEGATIVE); NITRITE,URINE NEGATIVE (NEGATIVE); PH,URINE 7 (4.5-8.0); PROTEIN,URINE NEGATIVE (NEGATIVE); UROBILINOGEN,URINE NORMAL MG/DL (0.0-1.0)
[2018-10-25 11:52] LABS: BASOPHILS % (AUTO) 0.8 % (0.0-2.0); EOSINOPHILS % (AUTO) 0.8 % (0.0-3.0); HEMATOCRIT 43.8 % (37.0-47.0); HEMOGLOBIN 14.2 G/DL (12.0-16.0); LYMPHOCYTES % (AUTO) 26.5 % (20.0-45.0); MEAN CORPUSCULAR VOLUME 88 FL (80-99); MONOCYTES % (AUTO) 6.3 % (1.0-10.0); NEUTROPHILS % (AUTO) 65.6 % (45.0-75.0); PLATELET COUNT 188 K/UL (150-450); RED BLOOD COUNT 4.96 M/UL (4.20-5.40); RED CELL DISTRIBUTION WIDTH 13.3 % (11.6-14.8)
[2018-10-25 12:04] LABS: ANION GAP 10 mmol/L (5-15); BLOOD UREA NITROGEN 12 mg/dL (7-18); CALCIUM 10.2 MG/DL (8.5-10.1); CARBON DIOXIDE 26 MMOL/L (21-32); CHLORIDE 105 MMOL/L (98-107); CREATININE 0.4 MG/DL (0.55-1.30); POTASSIUM 3.6 MMOL/L (3.5-5.1); SODIUM 141 MMOL/L (136-145)
[2018-10-25 12:15] LABS: ALANINE AMINOTRANSFERASE 8 U/L (12-78); ALBUMIN 3.5 G/DL (3.4-5.0); ALBUMIN/GLOBULIN RATIO 0.9 (1.0-2.7); ALKALINE PHOSPHATASE 112 U/L (46-116); ASPARTATE AMINO TRANSFERASE 11 U/L (15-37); BILIRUBIN,TOTAL 0.7 MG/DL (0.2-1.0); CREATINE KINASE 36 U/L (26-308)
[2018-10-25] MEDS ORDERED: cefTRIAXone 1 GM in NS 55 ML IVPB ONE (12:15)
--- NOTE | 2018-10-25 12:30 | Diagnostic Imaging Report ---
EXAM: XR Chest, 1 View CLINICAL HISTORY: ALOC TECHNIQUE: Frontal view of the chest. COMPARISON: Chest x-ray 11/22/15 FINDINGS: Lungs: Hypoventilation. Bibasilar lung atelectasis. Mild central vascular prominence. Pleural space: Unremarkable. No pneumothorax. Heart: Unremarkable. No cardiomegaly. Mediastinum: Unremarkable. Bones/joints: Unremarkable. IMPRESSION: Hypoventilation. Bibasilar lung atelectasis. Mild central vascular prominence.
--- NOTE | 2018-10-25 12:45 | Diagnostic Imaging Report ---
EXAM: CT Head Without Intravenous Contrast CLINICAL HISTORY: TRAUMA TECHNIQUE: Axial computed tomography images of the head/brain without intravenous contrast. CTDI is 70.38 mGy and DLP is 4511 mGy-cm. One or more of the following dose reduction techniques were used: automated exposure control, adjustment of the mA and/or kV according to patient size, use of iterative reconstruction technique. COMPARISON: CT head 11/24/15 FINDINGS: No intracranial hemorrhage, abnormal intra- or extra-axial collections or parenchymal lesions are seen. There are involutional changes with prominence of the sulci, basal cisterns and ventricles. Scattered white matter hypoattenuations are present, likely from small vessel disease. The tony-white differentiation is preserved. No evidence of mass effect, midline shift, or edema. 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 The osseous structures are unremarkable. The visualized portions of the paranasal sinuses are clear. IMPRESSION: 1. No acute intracranial process. 2. Involutional changes with small vessel disease. 3. 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
[2018-10-25 13:00] VITALS: BP 162/79
--- NOTE | 2018-10-25 13:10 | Emergency Room Report ---
History of Present Illness General Chief Complaint: Multiple Trauma/Fall Source: Patient, EMS Present Illness HPI The patient is sent in for evaluation after an alleged fall. A bump was noticed on her head. It is uncertain how this occurred as the patient has functional quadriplegia. The patient denies pain at this time. She is on heparin. There is no documented fevers, vomiting or diarrhea. The patient has severe Parkinson's disease. She is also on medication for high blood pressure. Patient denies shortness of breath or cough. She does agree that she feels thirsty at this time. She was admitted in July 2018 for bradycardia. Discharge diagnoses: Possible sepsis Probable urinary tract infection Hypotension, likely secondary to hypovolemia -resolved Bradycardia ,likely secondary to beta ping-resolved Altered level of conciseness due to acute toxic encephalopathy due to infectious process Parkinson disease Dysphagia Major depressive disorder , severe, recurrent ,with psychotic features Allergies: Coded Allergies: No Known Allergies (Unverified , 11/22/15) Patient History Limited by: medical condition Past Medical History: see triage record, old chart reviewed Social History Narrative half-way facility Last Menstrual Period: None Now: No Reviewed Nursing Documentation: PMH: Agreed; PSxH: Agreed Nursing Documentation-PMH Hx Cardiac Problems: Yes - anemia, muscle weakness, dysphagia, quadriplegia Hx Hypertension: Yes Hx Cancer: No Hx Gastrointestinal Problems: No History Of Psychiatric Problem: Yes - Dementia, Parkinson's disease Hx Neurological Problems: Yes - PARKINSONS,MUSCLE WEAKNESS Review of Systems All Other Systems: limited Physical Exam Vital Signs Date Time Temp Pulse Resp B/P (MAP) Pulse Ox O2 Delivery O2 Flow Rate FiO2 10/25/18 10:52 98.2 70 20 171/94 94 Room Air Sp02 EP Interpretation: reviewed, abnormal - Interpreted as slightly low by me General Appearance: no apparent distress, thin, Chronically Ill Eyes: bilateral eye normal inspection, bilateral eye PERRL ENT: dry mucus membranes Neck: other - rigidity, with kyphosis Respiratory: lungs clear, normal breath sounds, other - Kyphosis Cardiovascular #1: regular rate, rhythm, no edema Cardiovascular #2: 2+ radial (L) Gastrointestinal: normal bowel sounds, non tender, soft Genitourinary: no CVA tenderness Musculoskeletal: other - extensor contractures, bilat feet, atrophy and deformity of hands Neurologic: alert, sensory intact, motor weakness - resting tremor, functional paraplegia, other - seemingly appropriate answers "yes" and "no" Psychiatric: depressed affect Skin: warm/dry, other - Stage II sacral decubitus Medical Decision Making Diagnostic Impression: Primary Impression: UTI (urinary tract infection) Qualified Codes: N39.0 - Urinary tract infection, site not specified Additional Impressions: Parkinson disease Hypertension Qualified Codes: I10 - Essential (primary) hypertension ER Course Patient presents with new bump on the head. Clinically she appears dehydrated. She denies any pain at this time. Evaluation will be with EKG, chest x-ray and labs including urinalysis. The patient will be treated with IV hydration. She needs CT of the head to evaluate for possible bleed as she's on heparin. Patient extremely difficult to evaluate as she has one syllable answers and has deformity. EKG with sinus rhythm with PACs. His baseline artifact because of her resting tremor. White count is normal. Creatinine is normal however be when for her body mass considered slightly elevated suggesting dehydration. Urinalysis shows pyuria. CT of the head shows no bleed. Rocephin is begun. She is given a dose of her antihypertensive. Patient somewhat improved with IV hydration. Due to the complex nature of her presentation she'll be admitted to the hospital. Contact Joon Stinson for admission. Laboratory Tests Test 10/25/18 11:23 White Blood Count 7.0 K/UL (4.8-10.8) Red Blood Count 4.96 M/UL (4.20-5.40) Hemoglobin 14.2 G/DL (12.0-16.0) Hematocrit 43.8 % (37.0-47.0) Mean Corpuscular Volume 88 FL (80-99) Mean Corpuscular Hemoglobin 28.6 PG (27.0-31.0) Mean Corpuscular Hemoglobin Concent 32.3 G/DL (32.0-36.0) Red Cell Distribution Width 13.3 % (11.6-14.8) Platelet Count 188 K/UL (150-450) Mean Platelet Volume 7.7 FL (6.5-10.1) Neutrophils (%) (Auto) 65.6 % (45.0-75.0) Lymphocytes (%) (Auto) 26.5 % (20.0-45.0) Monocytes (%) (Auto) 6.3 % (1.0-10.0) Eosinophils (%) (Auto) 0.8 % (0.0-3.0) Basophils (%) (Auto) 0.8 % (0.0-2.0) Prothrombin Time 10.7 SEC (9.30-11.50) Prothrombin Time INR 1.0 (0.9-1.1) PTT 27 SEC (23-33) Urine Color Pale yellow Urine Appearance Clear Urine pH 7 (4.5-8.0) Urine Specific Filley 1.005 (1.005-1.035) Urine Protein Negative (NEGATIVE) Urine Glucose (UA) Negative (NEGATIVE) Urine Ketones Negative (NEGATIVE) Urine Blood 5+ (NEGATIVE) H Urine Nitrite Negative (NEGATIVE) Urine Bilirubin Negative (NEGATIVE) Urine Urobilinogen Normal MG/DL (0.0-1.0) Urine Leukocyte Esterase 2+ (NEGATIVE) H Urine RBC 2-4 /HPF (0 - 2) H Urine WBC 5-10 /HPF (0 - 2) H Urine Squamous Epithelial Cells None /LPF (NONE/OCC) Urine Bacteria None /HPF (NONE) Sodium Level 141 MMOL/L (136-145) Potassium Level 3.6 MMOL/L (3.5-5.1) Chloride Level 105 MMOL/L (98-107) Carbon Dioxide Level 26 MMOL/L (21-32) Anion Gap 10 mmol/L (5-15) Blood Urea Nitrogen 12 mg/dL (7-18) Creatinine 0.4 MG/DL (0.55-1.30) L Estimate Glomerular Filtration Rate mL/min (>60) Glucose Level 103 MG/DL (74-106) Calcium Level 10.2 MG/DL (8.5-10.1) H Total Bilirubin 0.7 MG/DL (0.2-1.0) Aspartate Amino Transferase (AST) 11 U/L (15-37) L Alanine Aminotransferase (ALT) 8 U/L (12-78) L Alkaline Phosphatase 112 U/L (46-116) Total Creatine Kinase 36 U/L (26-308) Troponin I 0.030 ng/mL (0.000-0.056) Pro-B-Type Natriuretic Peptide 153 pg/mL (0-125) H Total Protein 7.4 G/DL (6.4-8.2) Albumin 3.5 G/DL (3.4-5.0) Globulin 3.9 g/dL Albumin/Globulin Ratio 0.9 (1.0-2.7) L EKG Diagnostic Results Rate: normal Rhythm: NSR ST Segments: no acute changes Rhythm Strip Diag. Results EP Interpretation: yes Rhythm: NSR, no PVC's, other - PACs Chest X-Ray Diagnostic Results Chest X-Ray Diagnostic Results : Chest X-Ray Ordered: Yes # of Views/Limited/Complete: 1 View Indication: Other EP Interpretation: Yes Interpretation: no consolidation, no effusion, no pneumothorax, other - Scoliosis Impression: Other Electronically Signed by: Electronically signed by Jasvir Yanez MD CT/MRI/US Diagnostic Results CT/MRI/US Diagnostic Results : Imaging Test Ordered: Head Impression 1. No acute intracranial process. 2. Involutional changes with small vessel disease. 3. 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 Last Vital Signs Date Time Temp Pulse Resp B/P (MAP) Pulse Ox O2 Delivery O2 Flow Rate FiO2 10/25/18 18:00 80 155/87 (109) 10/25/18 15:33 98.6 17 97 10/25/18 15:00 Room Air Status: improved Disposition: ADMITTED INPATIENT Condition: Serious Referrals: Tony Dupree DO (PCP) Jasvir Yanez MD Oct 25, 2018 13:10
[2018-10-25] MEDS ORDERED: Lisinopril 10mg tab ORAL ONE (13:15)
[2018-10-25] MEDS ORDERED: Albuterol/Ipratropium 3ml neb HHN PRN (15:00)
[2018-10-25] MEDS ORDERED: Morphine Sulfate 4mg/ml Inj (IV/IM USE ONLY) IVP PRN (15:00)
[2018-10-25] MEDS ORDERED: Miralax 17gm pkt ORAL PRN (15:00)
[2018-10-25 15:33] VITALS: BP 166/90
[2018-10-25] MEDS: Cefepime HCl 2 GM in D5W 110 ML IV SCH (17:37)
[2018-10-25] MEDS: Levodopa/Carbidopa 25/100 tab ORAL SCH ×2 (17:44→23:31)
[2018-10-25] MEDS: Amantadine 100mg cap ORAL SCH (17:44)
[2018-10-25 18:00] VITALS: BP 155/87
[2018-10-25] MEDS: Vancomycin 750mg/NS 250ml IVPB SCH (18:08)
[2018-10-25 20:00] VITALS: BP 84/43
[2018-10-25] MEDS: Metoprolol Succinate XL 25mg tab ORAL SCH (21:00)
[2018-10-25] MEDS: Heparin 5000 units/ml inj SUBQ SCH (22:32)
[2018-10-26] VITALS: BP 110/65
[2018-10-26] MEDS: Sodium Chloride 550 ML IV SCH ×3 (00:10→21:23)
[2018-10-26] MEDS ORDERED: Vancomycin 1 GM in D5W 275 ML IV SCH (00:30)
[2018-10-26 04:00] VITALS: BP 128/72
[2018-10-26] MEDS: Levodopa/Carbidopa 25/100 tab ORAL SCH ×3 (06:14→17:54)
[2018-10-26 07:02] LABS: BASOPHILS % (AUTO) 1.2 % (0.0-2.0); EOSINOPHILS % (AUTO) 2.1 % (0.0-3.0); HEMATOCRIT 37.1 % (37.0-47.0); HEMOGLOBIN 12.1 G/DL (12.0-16.0); LYMPHOCYTES % (AUTO) 33.4 % (20.0-45.0); MEAN CORPUSCULAR VOLUME 89 FL (80-99); MONOCYTES % (AUTO) 7.7 % (1.0-10.0); NEUTROPHILS % (AUTO) 55.4 % (45.0-75.0); PLATELET COUNT 140 K/UL (150-450); RED BLOOD COUNT 4.18 M/UL (4.20-5.40); RED CELL DISTRIBUTION WIDTH 13.3 % (11.6-14.8); WHITE BLOOD COUNT 4.7 K/UL (4.8-10.8)
[2018-10-26 07:27] LABS: ALANINE AMINOTRANSFERASE 8 U/L (12-78); ALBUMIN 2.9 G/DL (3.4-5.0); ALBUMIN/GLOBULIN RATIO 0.9 (1.0-2.7); ANION GAP 7 mmol/L (5-15); BILIRUBIN,TOTAL 0.7 MG/DL (0.2-1.0); BLOOD UREA NITROGEN 11 mg/dL (7-18); CALCIUM 9.8 MG/DL (8.5-10.1); CARBON DIOXIDE 24 MMOL/L (21-32); CHLORIDE 110 MMOL/L (98-107); CREATININE 0.4 MG/DL (0.55-1.30); POTASSIUM 3.8 MMOL/L (3.5-5.1); SODIUM 141 MMOL/L (136-145)
[2018-10-26 07:44] LABS: ALKALINE PHOSPHATASE 98 U/L (46-116); ASPARTATE AMINO TRANSFERASE 10 U/L (15-37)
[2018-10-26 08:00] VITALS: BP 143/84
[2018-10-26] MEDS: Heparin 5000 units/ml inj SUBQ SCH ×2 (09:00→21:00)
[2018-10-26] MEDS: Metoprolol Succinate XL 25mg tab ORAL SCH ×2 (09:39→21:00)
[2018-10-26] MEDS: Amantadine 100mg cap ORAL SCH ×2 (09:39→17:54)
--- NOTE | 2018-10-26 11:09 | Cardiology Report ---
APPROVED REPORT EKG Measurement Heart [id number] Sinus rhythm with premature supraventricular complexes Cannot rule out Anterior infarct, age undetermined Abnormal ECG
[2018-10-26 12:04] VITALS: BP 123/65
--- NOTE | 2018-10-26 12:25 | Consultation ---
History of Present Illness General Date patient seen: Oct 26, 2018 Chief Complaint: Multiple Trauma/Fall Present Illness HPI 73 year old female with hx of Parkinson disease , Dysphagia , Major depressive disorder presented to ER for evaluation after an episode of alleged fall. A bump was noticed on her head. It is uncertain how this occurred as the patient has functional quadriplegia. The patient denies pain at this time. She is admitted to telemetry for further evaluation. Allergies: Coded Allergies: No Known Allergies (Unverified , 11/22/15) Medication History Scheduled Acetaminophen (Acetaminophen), 650 MG PO every 4 , (Reported) Amantadine Hcl* (Amantadine*), 100 MG ORAL TWICE A DAY, (Reported) Ascorbic Acid* (Vitamin C*), 250 MG ORAL TWICE A DAY, (Reported) Carbidopa/Levodopa 25-100 Mg* (Sinemet 25-100 Mg Tablet*), 1 TAB ORAL EVERY 6 HOURS, (Reported) Carbidopa/Levodopa 25-100 Mg* (Sinemet 25-100 Mg Tablet*), 1 TAB ORAL THREE TIMES A DAY, (Reported) Cefepime Hcl/D5w (Cefepime-Dextrose 2 Gm/50 Ml), 2 GM IVPB Q24H, (Reported) Cefepime Hcl/D5w (Cefepime-Dextrose 2 Gm/50 Ml), 2 GM IVPB Q24H, (Reported) Docusate Sodium* (Docusate Sodium*), 100 MG ORAL TWICE A DAY, (Reported) Heparin Sodium,Porcine (Heparin Sodium), 5,000 UNITS SQ Q12HR, (Reported) Levodopa/Carbidopa (Carbidopa-Levo ER 25-100 Tab), 1 TAB ORAL TWICE A DAY, ( Reported) Levodopa/Carbidopa (Carbidopa-Levo ER 25-100 Tab), 1 TAB ORAL THREE TIMES A DAY, (Reported) Lisinopril* (Lisinopril*), 10 MG ORAL DAILY, (Reported) Metoprolol Succinate* (Metoprolol Succinate*), 25 MG ORAL BID, (Reported) Metoprolol Tartrate* (Metoprolol Tartrate*), 25 MG ORAL Q12HR, (Reported) Multivitamin (Multi Vitamin Daily), 1 TAB ORAL DAILY, (Reported) Multivitamin with Minerals (Multivitamins with Minerals), 1 TAB ORAL DAILY, ( Reported) Nifedipine Xl* (Procardia Xl*), 90 MG ORAL DAILY, (Reported) Pantoprazole* (Protonix*), 40 MG ORAL DAILY, (Reported) Pramipexole (Mirapex), 0.25 MG ORAL THREE TIMES A DAY, (Reported) Pramipexole (Mirapex), 0.5 MG ORAL THREE TIMES A DAY, (Reported) Prazosin Hcl (Prazosin Hcl), 1 MG PO TID, (Reported) Prazosin Hcl* (Minipress*), 1 MG PO TID, (Reported) Scheduled PRN Acetaminophen* (Tylenol*), 325 MG RECTAL Q6HR PRN for Mild Pain/Temp > 100.5, ( Reported) Acetaminophen* (Acetaminophen 325MG Tablet*), 650 MG ORAL Q4H PRN for For Pain, (Reported) Bisacodyl (Dulcolax), 10 MG RC HS PRN for Constipation, (Reported) Guaifenesin/Codeine Phos* (Robitussin Ac*), 30 ML ORAL Q6H PRN for For Cough, ( Reported) Ondansetron (Zofran), 4 MG ORAL Q6H PRN for Nausea & Vomiting, (Reported) Zolpidem Tartrate* (Ambien*), 5 MG ORAL BEDTIME PRN for Insomnia, (Reported) Miscellaneous Medications Mag Hydrox/Al Hydrox/Simeth (Maalox Maximum Strength Susp), 30 ML PO, (Reported) Patient History Healthcare decision maker Resuscitation status Advanced Directive on File Past Medical/Surgical History Past Medical/Surgical History: (1) Elevated CEA (2) Dementia (3) Parkinson disease (4) Hypertension Review of Systems All Other Systems: negative except mentioned in HPI Physical Exam General Appearance: cachetic Lines, tubes and drains: peripheral HEENT: normocephalic, anicteric Neck: non-tender, other - pt's neck is tilted twards left, resting on her left shoulder Respiratory/Chest: chest wall non-tender, lungs clear Cardiovascular/Chest: normal peripheral pulses, regular rhythm Abdomen: normal bowel sounds Genitourinary/Rectal: normal genital exam Last 24 Hour Vital Signs Date Time Temp Pulse Resp B/P (MAP) Pulse Ox O2 Delivery O2 Flow Rate FiO2 10/26/18 12:04 98.2 64 18 123/65 (84) 99 10/26/18 09:39 81 143/84 10/26/18 09:00 Room Air 10/26/18 08:00 97.2 81 18 143/84 (103) 98 10/26/18 04:00 97.2 62 20 128/72 (90) 100 10/26/18 04:00 60 10/26/18 01:00 Room Air 10/26/18 01:00 59 10/26/18 00:00 98.1 60 17 110/65 (80) 97 10/25/18 21:00 Room Air 10/25/18 20:00 98.0 63 17 84/43 (57) 99 10/25/18 18:00 80 155/87 (109) 10/25/18 15:33 98.6 83 17 166/90 (115) 97 10/25/18 15:00 Room Air 10/25/18 14:44 98.4 81 18 147/80 100 Room Air 10/25/18 13:21 164/79 10/25/18 13:00 98.5 82 17 162/79 98 Room Air Intake and Output 10/25/18 10/26/18 18:59 06:59 Intake Total 1415 ml 166.667 ml Balance 1415 ml 166.667 ml Intake IV Total 1165 ml 166.667 ml Other 250 ml # Voids 1 # Bowel Movements 1 1 Laboratory Tests Test 10/26/18 06:05 White Blood Count 4.7 K/UL (4.8-10.8) L Red Blood Count 4.18 M/UL (4.20-5.40) L Hemoglobin 12.1 G/DL (12.0-16.0) Hematocrit 37.1 % (37.0-47.0) Mean Corpuscular Volume 89 FL (80-99) Mean Corpuscular Hemoglobin 28.9 PG (27.0-31.0) Mean Corpuscular Hemoglobin Concent 32.6 G/DL (32.0-36.0) Red Cell Distribution Width 13.3 % (11.6-14.8) Platelet Count 140 K/UL (150-450) L Mean Platelet Volume 7.4 FL (6.5-10.1) Neutrophils (%) (Auto) 55.4 % (45.0-75.0) Lymphocytes (%) (Auto) 33.4 % (20.0-45.0) Monocytes (%) (Auto) 7.7 % (1.0-10.0) Eosinophils (%) (Auto) 2.1 % (0.0-3.0) Basophils (%) (Auto) 1.2 % (0.0-2.0) Sodium Level 141 MMOL/L (136-145) Potassium Level 3.8 MMOL/L (3.5-5.1) Chloride Level 110 MMOL/L (98-107) H Carbon Dioxide Level 24 MMOL/L (21-32) Anion Gap 7 mmol/L (5-15) Blood Urea Nitrogen 11 mg/dL (7-18) Creatinine 0.4 MG/DL (0.55-1.30) L Estimat Glomerular Filtration Rate mL/min (>60) Glucose Level 89 MG/DL (74-106) Calcium Level 9.8 MG/DL (8.5-10.1) Total Bilirubin 0.7 MG/DL (0.2-1.0) Aspartate Amino Transf (AST/SGOT) 10 U/L (15-37) L Alanine Aminotransferase (ALT/SGPT) 8 U/L (12-78) L Alkaline Phosphatase 98 U/L (46-116) Total Protein 6.3 G/DL (6.4-8.2) L Albumin 2.9 G/DL (3.4-5.0) L Globulin 3.4 g/dL Albumin/Globulin Ratio 0.9 (1.0-2.7) L Height (Feet): 4 Height (Inches): 11.00 Weight (Pounds): 121 Medications Current Medications Medications (Trade) Dose Ordered Sig/Alex Route PRN Reason Start Time Stop Time Status Last Admin Dose Admin Acetaminophen (Tylenol) 650 mg Q4H PRN ORAL fever 10/25/18 15:00 11/24/18 14:59 Albuterol/ Ipratropium (Albuterol/ Ipratropium) 3 ml Q4H PRN HHN Shortness of Breath 10/25/18 15:00 10/30/18 14:59 Amantadine HCl (Symmetrel) 100 mg TWICE A DAY ORAL 10/25/18 18:00 11/24/18 17:59 10/26/18 09:39 Carbidopa/Levodopa (Sinemet 25/100) 1 tab EVERY 6 HOURS ORAL 10/25/18 18:00 11/24/18 17:59 10/26/18 12:12 Cefepime HCl 2 gm/ Dextrose 110 ml @ 220 mls/hr Q24H IV 10/25/18 17:00 11/01/18 16:59 10/25/18 17:37 Heparin Sodium (Porcine) (Heparin 5000 units/ml) 5,000 units EVERY 12 HOURS SUBQ 10/25/18 21:00 11/24/18 20:59 10/25/18 22:32 Metoprolol Succinate (Toprol XL) 25 mg Q12HR ORAL 10/25/18 21:00 11/24/18 20:59 10/26/18 09:39 Morphine Sulfate (Morphine Sulfate) 2 mg Q4H PRN IVP Moderate Pain (Pain Scale 4-6) 10/25/18 15:00 11/01/18 14:59 Ondansetron HCl (Zofran) 4 mg Q6H PRN IVP Nausea & Vomiting 10/25/18 15:00 11/24/18 14:59 Phenazopyridine HCl (Pyridium) 100 mg DAILYPRN PRN ORAL dysuria 10/25/18 15:00 11/24/18 14:59 Polyethylene Glycol (Miralax) 17 gm DAILYPRN PRN ORAL Constipation 10/25/18 15:00 11/24/18 14:59 Pramipexole (Mirapex) 0.25 mg THREE TIMES A DAY ORAL 10/25/18 18:00 11/24/18 17:59 10/26/18 12:11 Prazosin HCl (Minipress) 1 mg TID ORAL 10/25/18 18:00 11/24/18 17:59 10/26/18 12:11 Sodium Chloride 550 ml @ 50 mls/hr Q11H IV 10/26/18 00:00 11/25/18 00:00 10/26/18 11:49 Temazepam (Restoril) 15 mg HSPRN PRN ORAL Insomnia 10/25/18 15:00 11/01/18 14:59 Vancomycin HCl (Vanco rx to dose) 1 ea DAILY PRN MISC PER PHARMACY 10/25/18 15:15 11/24/18 15:14 Vancomycin/Sodium Chloride 250 ml @ 166.667 mls/hr Q24H IVPB 10/25/18 18:00 10/30/18 17:59 10/25/18 18:08 Assessment/Plan Problem List: (1) Sepsis ICD Codes: A41.9 - Sepsis, unspecified organism SNOMED: 52317249 (2) UTI (urinary tract infection) ICD Codes: N39.0 - Urinary tract infection, site not specified SNOMED: 13203081 (3) Anemia ICD Codes: D64.9 - Anemia, unspecified SNOMED: 929170950 (4) Elevated CEA ICD Codes: R97.0 - Elevated carcinoembryonic antigen [CEA] SNOMED: 49164309, 198911741 (5) Hypertension ICD Codes: I10 - Essential (primary) hypertension SNOMED: 41723637 Qualifiers: Qualified Codes: I10 - Essential (primary) hypertension (6) Parkinson disease ICD Codes: G20 - Parkinson's disease SNOMED: 15658945 (7) Dementia ICD Codes: F03.90 - Unspecified dementia without behavioral disturbance SNOMED: 74853742 Assessment/Plan urine and blood cultures iv fluids iv abx anemia w/u swallow study check electrolytes continue bp meds monitor bp Aleksandr Sibley MD Oct 26, 2018 12:25
--- NOTE | 2018-10-26 13:24 | Consultation ---
Consult Note Consult Note NEUROLOGY CONSULTATION October 26, 2018 CONSULTING PHYSICIAN: Harry Callejas M.D. REQUESTING PHYSICIAN: Tony Dupree D.O. HISTORY: Ms. Jennifer Gao is a 72-year-old, right-handed, lady, who does have a past history of a parkinsonian syndrome, quadriparesis due to unknown reasons, hypertension, and dysphagia, who lives in a prison. I had last seen her in July 2018 for hypotension with an altered mental state at her prison. At that point in time it was felt that she had an altered mental state related to hypotension, most probably related to an acute infectious process. It was also felt that she demonstrated signs of a neurodegenerative disease, the exact type of disease being unknown to us. She also had a parkinsonian syndrome. She was stabilized and sent back to her prison. She was readmitted to [facility] on 10/25/2018 when she was sent to the [facility] for evaluation after an alleged fall and a bump on her head. The patient herself denies any fall. She also denies any new neurologic symptoms. She specifically denies any increased weakness, numbness, visual problems, memory problems or other symptoms. PAST MEDICAL HISTORY: Significant for a parkinsonian syndrome, quadriparesis due to an unknown reason, hypertension, and dysphagia. FAMILY HISTORY: Nothing significant as per the patient. PERSONAL HISTORY: Home: She lives in prison. Work: She is unemployed. Habits: She denies the use of alcohol, tobacco, or illicit drugs. PHYSICAL EXAMINATION: GENERAL: She is a well-developed, but lean lady, lying in bed, in no acute distress. VITAL SIGNS: Pulse 64/minute, blood pressure 123/65 mmHg, respirations 18/minute, and temperature 98.2 degrees Fahrenheit. HEAD: Normocephalic and atraumatic. NECK: No neck rigidity was observed. EENT: Examination benign except for tongue protruding out. SPINE: Cervical, thoracic, and lumbosacral spine revealed a kyphoscoliotic curve. NEUROLOGICAL EXAMINATION: MENTAL STATUS EXAMINATION: She was awake and alert. She was oriented to self, [facility], and September 2018. She did not know the date. She was able to recall 3/3 words immediately, but could only remember 1/3 words in 1 minute and 3 minutes. She was unable to tell me, who the present President was and who prior Presidents were. Her mathematical skills were impaired. Her visuospatial function was also impaired. SPEECH: She had a significant dysarthria. LANGUAGE: She was able to express herself and comprehend relatively well in [place]. CRANIAL NERVE EXAMINATION: II: The visual ng were intact on confrontation testing. III, IV & : The external ocular movements were full and the pupils 3 mm in diameter, equal, round, regular, and reactive to light. V: She had normal facial sensations, and the temporales, masseters, and pterygoids functioned normally. VII: She had a right VII central facial paresis. VIII: She was able to hear and had no nystagmus. IX: The palate moved symmetrically on phonation. X: She had no hoarseness of voice. XI: The sternocleidomastoids and trapezii functioned. XII: The tongue was protruded in the midline and stayed protruded all the time. MOTOR SYSTEM: The tone was minimally increased in all four extremities with a combination of spasticity and mild rigidity. Examination of muscle mass revealed generalized muscle wasting. In addition, she had significant contractures of her fingers, ankles, toes, and knees. Examination of power was exceedingly difficult to perform. She had a significant quadriparesis involving the distal muscles more than the proximal muscles. SENSORY EXAMINATION: She was able to discern light touch. She was unable to cooperate further sensory modalities. REFLEXES: Trace+ and bilaterally symmetrical at the biceps, triceps, brachioradialis, and knees, 0 at both ankles. The plantar responses were mute bilaterally. COORDINATION, STANCE & GAIT: Could not be tested. DIAGNOSTIC IMPRESSION: 1. Ms. 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 She was admitted to [facility] on 10/25/2018 when she was sent to the [facility] for evaluation after an alleged fall and a bump on her head. 2. She herself denies any fall. She also denies any new neurologic symptoms. She specifically denies any increased weakness, numbness, visual problems, memory problems or other symptoms. 2. On neurological examination, at this time, she is oriented to self, [facility] and September 2018. She is disoriented to the date. She has significant problems with recent and remote memory, a significant dysarthria, a right VII central facial paresis, and she keeps her tongue protruded out. She has a right greater than left quadriparesis involving the distal muscles more than the proximal muscles with significant hand, ankle, toe, and knee contractures, globally diminished deep tendon reflexes with loss of plantar responses, and an inability to stand and walk. 3. The CT scan of the brain done on 10/25/18 reveals a smaller right hemisphere compared to the left with shift of midline structures from the right side to the left side and old calcifications but no acute pathology. 4. Laboratory data obtained thus far have revealed a relatively normal CBC except for low platelet counts. The chemistry panel on admission revealed that her albumin was low at 2.9. Her urinalysis on admission revealed 2+ leukocyte esterase and 2-4 red blood cells and 5-10 white blood cells per HPF. 5. The patient's history, neurological examination, laboratory data, and imaging studies are most compatible with, an insignificant bump to the head, and a UTI. 6. The patient also demonstrates signs of a neurodegenerative disease, the exact type of disease is unknown to us. She does have a parkinsonian syndrome in addition. RECOMMENDATIONS: 1. Agree with management thus far. 2. Continue the patient on the present antiparkinsonian regimen. 3. Treatment of infectious process. 4. Observe closely. Thank you for entrusting me with the care of Ms. Gao. I shall follow her with you. Harry Callejas M.D., M.S.P.H. Harry Callejas MD Oct 26, 2018 13:24
--- NOTE | 2018-10-26 15:15 | History and Physical Report ---
DATE OF ADMISSION: 10/25/2018 DATE AND TIME SEEN: 10/26/2018 at 8 a.m. CONSULTANTS: 1. Dr. Aleksandr Sibley. 2. Dr. Juventino Young. CHIEF COMPLAINT: Urinary tract infection and dehydration. BRIEF HISTORY: The patient is a 73-year-old female from [facility], who presented with increased lethargy and weakness. She was found to have UTI, sepsis, and dehydration and admitted to telemetry for further care. Currently, calm in bed, slightly lethargic and weak. No complaint. REVIEW OF SYSTEMS: No chest pain. Slight short of breath. No nausea, vomiting, or diarrhea. PAST MEDICAL HISTORY: Includes anemia, dementia, Parkinson, urinary tract infection, and hypertension. PAST SURGICAL HISTORY: Unknown. ALLERGIES: Denies smoking. No alcohol. No intravenous drug abuse. MEDICATIONS: Include vancomycin, metoprolol, heparin, amantadine, carbidopa, pramipexole, prazosin, cefepime, albuterol, morphine, Zofran, and temazepam. FAMILY HISTORY: Noncontributory. PHYSICAL EXAMINATION: GENERAL: Slightly confused in bed, oriented x1, in no acute distress. VITAL SIGNS: Temperature is 97 degrees, pulse 62, respirations 20, and blood pressure 120/72. CARDIOVASCULAR: No murmur. LUNGS: Poor air exchange. ABDOMEN: Bowel sounds distant. EXTREMITIES: No cyanosis, clubbing, or edema NEUROLOGIC: The patient with weakness x4 noted. Neck, weakness as well leaning forward. LABORATORY DATA: Show white count 4.7, platelets 140 otherwise CBC is normal. BMP shows chloride 110, creatinine 0.4. Albumin 2.9, otherwise normal. INR 1.0, PTT 27. Urinalysis shows 2+ leukocyte esterase. ASSESSMENT: 1. Urinary tract infection. 2. Sepsis. 3. Dehydration. 4. Malnutrition. 5. Dementia. 6. Parkinson. 7. Hypertension. PLAN: 1. Antibiotics per Infectious Disease. 2. Blood pressure control. 3. Resume home medications. 4. PT and Dietary evaluation. 5. CBC and BMP in the morning. Tony Dupree D.O. DR: MARLA JOB#: [id number] CC:
[2018-10-26 16:00] VITALS: BP 109/62
[2018-10-26] MEDS: Cefepime HCl 2 GM in D5W 110 ML IV SCH (17:53)
[2018-10-26] MEDS: Vancomycin 750mg/NS 250ml IVPB SCH (17:54)
[2018-10-26 20:00] VITALS: BP 86/47
[2018-10-27] VITALS (7 sets, daily range): BP systolic 68–129; BP diastolic 30–73
[2018-10-27] MEDS: Levodopa/Carbidopa 25/100 tab ORAL SCH ×5 (01:00→23:22)
[2018-10-27 07:37] LABS: BASOPHILS % (AUTO) 0.9 % (0.0-2.0); EOSINOPHILS % (AUTO) 2.3 % (0.0-3.0); HEMATOCRIT 37.8 % (37.0-47.0); HEMOGLOBIN 12.4 G/DL (12.0-16.0); MEAN CORPUSCULAR VOLUME 89 FL (80-99); MONOCYTES % (AUTO) 7.4 % (1.0-10.0); NEUTROPHILS % (AUTO) 49.4 % (45.0-75.0); PLATELET COUNT 156 K/UL (150-450); RED BLOOD COUNT 4.25 M/UL (4.20-5.40); RED CELL DISTRIBUTION WIDTH 13.2 % (11.6-14.8); WHITE BLOOD COUNT 5.2 K/UL (4.8-10.8)
[2018-10-27 08:04] LABS: ANION GAP 9 mmol/L (5-15); BLOOD UREA NITROGEN < 1 mg/dL (7-18); CALCIUM 10.1 MG/DL (8.5-10.1); CARBON DIOXIDE 21 MMOL/L (21-32); CHLORIDE 110 MMOL/L (98-107); CREATININE 0.4 MG/DL (0.55-1.30); SODIUM 140 MMOL/L (136-145)
[2018-10-27] MEDS: Metoprolol Succinate XL 25mg tab ORAL SCH (09:00)
--- NOTE | 2018-10-27 09:05 | Consultation ---
History of Present Illness General Date patient seen: Oct 27, 2018 Chief Complaint: Multiple Trauma/Fall Reason for Consultation: UTI Present Illness HPI Ms. Gao is a 73 yo female with PMHx of dementia, parkinonism and HTN who [facility] after [facility]. Per report she had AMS at the time. In the ED she had CT head which showed no acute pathology. She had negative CXR. She has no SOB, No Fever, No Leukocytosus. Her UA had increased WBCs. The patient reports that she does not remember falling. She deneis dysuria , hematuria, Abdominal pain, N/V and diarrhea. ID consulted for UTI PMHx/PSHx Parkinsons HTN Dysphagia SocHx No E/T/D FamHx Not contributory Allergies: Coded Allergies: No Known Allergies (Unverified , 11/22/15) Medication History Scheduled Acetaminophen (Acetaminophen), 650 MG PO every 4 , (Reported) Amantadine Hcl* (Amantadine*), 100 MG ORAL TWICE A DAY, (Reported) Ascorbic Acid* (Vitamin C*), 250 MG ORAL TWICE A DAY, (Reported) Carbidopa/Levodopa 25-100 Mg* (Sinemet 25-100 Mg Tablet*), 1 TAB ORAL EVERY 6 HOURS, (Reported) Carbidopa/Levodopa 25-100 Mg* (Sinemet 25-100 Mg Tablet*), 1 TAB ORAL THREE TIMES A DAY, (Reported) Cefepime Hcl/D5w (Cefepime-Dextrose 2 Gm/50 Ml), 2 GM IVPB Q24H, (Reported) Cefepime Hcl/D5w (Cefepime-Dextrose 2 Gm/50 Ml), 2 GM IVPB Q24H, (Reported) Docusate Sodium* (Docusate Sodium*), 100 MG ORAL TWICE A DAY, (Reported) Heparin Sodium,Porcine (Heparin Sodium), 5,000 UNITS SQ Q12HR, (Reported) Levodopa/Carbidopa (Carbidopa-Levo ER 25-100 Tab), 1 TAB ORAL TWICE A DAY, ( Reported) Levodopa/Carbidopa (Carbidopa-Levo ER 25-100 Tab), 1 TAB ORAL THREE TIMES A DAY, (Reported) Lisinopril* (Lisinopril*), 10 MG ORAL DAILY, (Reported) Metoprolol Succinate* (Metoprolol Succinate*), 25 MG ORAL BID, (Reported) Metoprolol Tartrate* (Metoprolol Tartrate*), 25 MG ORAL Q12HR, (Reported) Multivitamin (Multi Vitamin Daily), 1 TAB ORAL DAILY, (Reported) Multivitamin with Minerals (Multivitamins with Minerals), 1 TAB ORAL DAILY, ( Reported) Nifedipine Xl* (Procardia Xl*), 90 MG ORAL DAILY, (Reported) Pantoprazole* (Protonix*), 40 MG ORAL DAILY, (Reported) Pramipexole (Mirapex), 0.25 MG ORAL THREE TIMES A DAY, (Reported) Pramipexole (Mirapex), 0.5 MG ORAL THREE TIMES A DAY, (Reported) Prazosin Hcl (Prazosin Hcl), 1 MG PO TID, (Reported) Prazosin Hcl* (Minipress*), 1 MG PO TID, (Reported) Scheduled PRN Acetaminophen* (Tylenol*), 325 MG RECTAL Q6HR PRN for Mild Pain/Temp > 100.5, ( Reported) Acetaminophen* (Acetaminophen 325MG Tablet*), 650 MG ORAL Q4H PRN for For Pain, (Reported) Bisacodyl (Dulcolax), 10 MG RC HS PRN for Constipation, (Reported) Guaifenesin/Codeine Phos* (Robitussin Ac*), 30 ML ORAL Q6H PRN for For Cough, ( Reported) Ondansetron (Zofran), 4 MG ORAL Q6H PRN for Nausea & Vomiting, (Reported) Zolpidem Tartrate* (Ambien*), 5 MG ORAL BEDTIME PRN for Insomnia, (Reported) Miscellaneous Medications Mag Hydrox/Al Hydrox/Simeth (Maalox Maximum Strength Susp), 30 ML PO, (Reported) Patient History Healthcare decision maker Resuscitation status Advanced Directive on File Review of Systems All Other Systems: negative except mentioned in HPI Physical Exam Last 24 Hour Vital Signs Date Time Temp Pulse Resp B/P (MAP) Pulse Ox O2 Delivery O2 Flow Rate FiO2 10/27/18 04:00 46 10/27/18 04:00 98.7 51 18 102/54 (70) 97 10/27/18 00:00 97.0 54 18 129/72 (91) 98 10/27/18 00:00 52 10/26/18 21:00 Room Air 1/27/19 21:00 56 86/47 10/26/18 20:00 57 10/26/18 20:00 97.1 56 20 86/47 (60) 96 10/26/18 16:00 97.9 67 18 109/62 (78) 97 10/26/18 16:00 62 10/26/18 13:59 86 10/26/18 12:04 98.2 64 18 123/65 (84) 99 10/26/18 09:39 81 143/84 Intake and Output 10/26/18 10/27/18 19:00 07:00 Intake Total 170 ml Output Total 400 ml Balance 170 ml -400 ml Intake Oral 170 ml Output Urine Total 400 ml # Voids 3 Laboratory Tests Test 10/27/18 05:25 White Blood Count 5.2 K/UL (4.8-10.8) Red Blood Count 4.25 M/UL (4.20-5.40) Hemoglobin 12.4 G/DL (12.0-16.0) Hematocrit 37.8 % (37.0-47.0) Mean Corpuscular Volume 89 FL (80-99) Mean Corpuscular Hemoglobin 29.1 PG (27.0-31.0) Mean Corpuscular Hemoglobin Concent 32.8 G/DL (32.0-36.0) Red Cell Distribution Width 13.2 % (11.6-14.8) Platelet Count 156 K/UL (150-450) Mean Platelet Volume 7.5 FL (6.5-10.1) Neutrophils (%) (Auto) 49.4 % (45.0-75.0) Lymphocytes (%) (Auto) 40.0 % (20.0-45.0) Monocytes (%) (Auto) 7.4 % (1.0-10.0) Eosinophils (%) (Auto) 2.3 % (0.0-3.0) Basophils (%) (Auto) 0.9 % (0.0-2.0) Sodium Level 140 MMOL/L (136-145) Potassium Level 4.0 MMOL/L (3.5-5.1) Chloride Level 110 MMOL/L (98-107) H Carbon Dioxide Level 21 MMOL/L (21-32) Anion Gap 9 mmol/L (5-15) Blood Urea Nitrogen < 1 mg/dL (7-18) L Creatinine 0.4 MG/DL (0.55-1.30) L Estimat Glomerular Filtration Rate mL/min (>60) Glucose Level 75 MG/DL (74-106) Calcium Level 10.1 MG/DL (8.5-10.1) Height (Feet): 4 Height (Inches): 11.00 Weight (Pounds): 121 Medications Current Medications Medications (Trade) Dose Ordered Sig/Alex Route PRN Reason Start Time Stop Time Status Last Admin Dose Admin Acetaminophen (Tylenol) 650 mg Q4H PRN ORAL fever 10/25/18 15:00 11/24/18 14:59 Albuterol/ Ipratropium (Albuterol/ Ipratropium) 3 ml Q4H PRN HHN Shortness of Breath 10/25/18 15:00 10/30/18 14:59 Amantadine HCl (Symmetrel) 100 mg TWICE A DAY ORAL 10/25/18 18:00 11/24/18 17:59 10/26/18 17:54 Carbidopa/Levodopa (Sinemet 25/100) 1 tab EVERY 6 HOURS ORAL 10/25/18 18:00 11/24/18 17:59 10/27/18 05:56 Cefepime HCl 2 gm/ Dextrose 110 ml @ 220 mls/hr Q24H IV 10/25/18 17:00 11/01/18 16:59 10/26/18 17:53 Heparin Sodium (Porcine) (Heparin 5000 units/ml) 5,000 units EVERY 12 HOURS SUBQ 10/25/18 21:00 11/24/18 20:59 10/25/18 22:32 Memantine (Namenda) 5 mg BID ORAL 10/27/18 09:00 11/26/18 08:59 Metoprolol Succinate (Toprol XL) 25 mg Q12HR ORAL 10/25/18 21:00 11/24/18 20:59 10/26/18 09:39 Morphine Sulfate (Morphine Sulfate) 2 mg Q4H PRN IVP Moderate Pain (Pain Scale 4-6) 10/25/18 15:00 11/01/18 14:59 Ondansetron HCl (Zofran) 4 mg Q6H PRN IVP Nausea & Vomiting 10/25/18 15:00 11/24/18 14:59 Phenazopyridine HCl (Pyridium) 100 mg DAILYPRN PRN ORAL dysuria 10/25/18 15:00 11/24/18 14:59 Polyethylene Glycol (Miralax) 17 gm DAILYPRN PRN ORAL Constipation 10/25/18 15:00 11/24/18 14:59 Pramipexole (Mirapex) 0.25 mg THREE TIMES A DAY ORAL 10/25/18 18:00 11/24/18 17:59 10/26/18 18:42 Prazosin HCl (Minipress) 1 mg TID ORAL 10/25/18 18:00 11/24/18 17:59 10/26/18 17:54 Sodium Chloride 550 ml @ 50 mls/hr Q11H IV 10/26/18 00:00 11/25/18 00:00 10/26/18 21:23 Temazepam (Restoril) 15 mg HSPRN PRN ORAL Insomnia 10/25/18 15:00 11/01/18 14:59 Vancomycin HCl (Vanco rx to dose) 1 ea DAILY PRN MISC PER PHARMACY 10/25/18 15:15 11/24/18 15:14 Vancomycin/Sodium Chloride 250 ml @ 166.667 mls/hr Q24H IVPB 10/25/18 18:00 10/30/18 17:59 10/26/18 17:54 Objective Narrative Gen: NAD, Thin HEENT: NCAT, MMM, EOMI, PERRL, No Oral lesion, no scleral icterus NECK: full range of motion, supple, no meningismus, No LAD, No JVD LUNGS: CTAB, No W/C, No Accessory muscle use CARDS: RRR, S1, S2, No M/R/G, ABD: Soft, NT, ND, No R/G, + BS, No HSM, No Masses : Deferred Ext: C/C/E, Pulses 2+ B/L (DP, Rad): Contractures NEURO: A/O x 3, Strength and Sensation Grossly intact SKIN: Warm/dry, No rashes, sacral Decub (not infected) Assessment/Plan Assessment/Plan 73 yo female with PMHx of parkinonism and HTN who was [facility] tot ED [facility] her [facility] after a fall. UTI Patient with dehydration and fall with AMS - This could be a manifestation of sepsis from occult UTI Patient already had 2 days of cefepime S/P Fall Parkinsons HTN Dysphagia PLAN - Start Ceftriaxone #1/2 to finish a short course of abx fopr UTI. - D/C Cefepime #2 and Vancomcyin #2 - f/u Cultures - Monitor CBC and Temps Thank you for this consult. We will continue to follow the patient during this hospitalization. Jasvir Mar MD Oct 27, 2018 09:05
[2018-10-27] MEDS: Amantadine 100mg cap ORAL SCH ×2 (09:09→18:41)
[2018-10-27] MEDS: Memantine 5 MG TAB ORAL SCH ×2 (09:09→18:41)
[2018-10-27] MEDS: Sodium Chloride 550 ML IV SCH ×2 (09:12→20:12)
[2018-10-27] MEDS: Heparin 5000 units/ml inj SUBQ SCH ×2 (09:12→20:12)
--- NOTE | 2018-10-27 09:45 | Consultation ---
DATE OF CONSULTATION: 10/27/2018 CONSULTING PHYSICIAN: Rubio Mccord M.D. HISTORY OF PRESENT ILLNESS: This is a 73-year-old female patient. She is admitted to the hospital secondary to dehydration, but she has got multiple other medical problems as well, but she does have altered mental status, confusion, urinary tract infection, which is worsened her cognition. Now she has altered mental status, confusion, and her cognition continues to decline below baseline secondary to stress from medical illness. That is why her attending has requested daily psychiatric consultation. I saw and assessed the patient in her room today. She was confused and disorganized. She has altered mental status, and she is unable to . She is confused and disorganized. She has very poor insight. Because her cognition has declined below baseline, her attending has requested daily psychiatric consultation to prevent any further decline in cognition. MEDICAL HISTORY: The patient has a history of urinary tract infection, hypertension, dehydration, cognitive disease, sepsis, dysphagia, hypoalbuminemia, elevated CEA, iron deficiency anemia, and also generalized weakness. ALLERGIES: No known drug allergies. PSYCHOTROPIC MEDICATIONS ON ADMISSION: She is currently not on any psychotropic medications. SUBSTANCE ABUSE HISTORY: Denies. SOCIAL HISTORY: This patient is currently living in [facility]. Financially supported by [facility] and Medicare. PSYCHIATRIC HISTORY: History of major depressive disorder, severe, recurrent. Denies any previous psychiatric admissions. MENTAL STATUS EXAMINATION: This is a 73-year-old female. Appearance is disheveled. Attitude, irritable and agitated. Affect, guarded and restricted. Intellect poor because she has no current events of the last four presidents. Mood depressed and anxious. Motor activity, psychomotor agitation. Attention span is poor as she could not do serial 7's. She also could not spell world backwards. Orientation x2, only oriented to person and place. Speech is low volume and slurred. Thought process, disorganized and illogical. Thought content, slight paranoid delusions. Insight and judgment are poor. The patient has paranoid delusions. Abstract reasoning is poor. She did not understand proverb and only has concrete thinking. As far as insight is poor because she does not recognize having mood disorder or psychiatric disorder. Judgment is poor because she cannot make her medical decisions for herself. No signs of any suicidal or homicidal ideation. Her short-term memory is 3/3 word recall with poor short-term memory. Long-term memory is poor. The patient cannot recall long-term events in her life such as school that she went to. DIAGNOSES: 1. Major depressive disorder, mild, recurrent with psychotic features, rule out dementia with psychosis. 2. Medical is dehydration, hypertension, iron deficiency anemia, psychosocial stressors, financial function impairment is mild. PLAN: Plan for this patient is I am going to add Namenda 5 mg twice a day to prevent any further decline in her cognition. Twenty minutes of insight-oriented psychotherapy insight into her cognitive impairment due to psychiatric illness. This patient has better impulse control and behavior on the unit. Rubio Mccord M.D. DR: ENA JOB#: [id number] CC:
--- NOTE | 2018-10-27 10:19 | Neurology Progress Note ---
Interim History Interim History Interim History Ms. Gao feels much better today. She says she slept well last night. She feels that her parkinsonian symptoms are well controlled. She feels that her mind is clear. She denies any headache. She also denies any new neurologic symptoms. She specifically denies any increased weakness, numbness, visual problems, memory problems or other symptoms. She feels that she is her normal self. Review of Systems Neuro Review of Systems Benign. Objective Physical Exam Last Vital Signs Date Time Temp Pulse Resp B/P (MAP) Pulse Ox O2 Delivery O2 Flow Rate FiO2 10/27/18 09:00 50 108/55 10/27/18 04:00 98.7 18 97 10/26/18 21:00 Room Air Laboratory Tests Test 10/27/18 05:25 White Blood Count 5.2 K/UL (4.8-10.8) Red Blood Count 4.25 M/UL (4.20-5.40) Hemoglobin 12.4 G/DL (12.0-16.0) Hematocrit 37.8 % (37.0-47.0) Mean Corpuscular Volume 89 FL (80-99) Mean Corpuscular Hemoglobin 29.1 PG (27.0-31.0) Mean Corpuscular Hemoglobin Concent 32.8 G/DL (32.0-36.0) Red Cell Distribution Width 13.2 % (11.6-14.8) Platelet Count 156 K/UL (150-450) Mean Platelet Volume 7.5 FL (6.5-10.1) Neutrophils (%) (Auto) 49.4 % (45.0-75.0) Lymphocytes (%) (Auto) 40.0 % (20.0-45.0) Monocytes (%) (Auto) 7.4 % (1.0-10.0) Eosinophils (%) (Auto) 2.3 % (0.0-3.0) Basophils (%) (Auto) 0.9 % (0.0-2.0) Sodium Level 140 MMOL/L (136-145) Potassium Level 4.0 MMOL/L (3.5-5.1) Chloride Level 110 MMOL/L (98-107) H Carbon Dioxide Level 21 MMOL/L (21-32) Anion Gap 9 mmol/L (5-15) Blood Urea Nitrogen < 1 mg/dL (7-18) L Creatinine 0.4 MG/DL (0.55-1.30) L Estimat Glomerular Filtration Rate mL/min (>60) Glucose Level 75 MG/DL (74-106) Calcium Level 10.1 MG/DL (8.5-10.1) Neurologic Exam Objective PHYSICAL EXAMINATION: GENERAL: She is a well-developed, but lean lady, lying in bed, in no acute distress. HEAD: Normocephalic and atraumatic. NECK: No neck rigidity was observed. EENT: Examination benign except for tongue protruding out. SPINE: Cervical, thoracic, and lumbosacral spine revealed a kyphoscoliotic curve. NEUROLOGICAL EXAMINATION: MENTAL STATUS EXAMINATION: She was awake and alert. She was oriented to [facility], [facility], and September 2018. She did not know the exact date. She was able to recall 3/3 words immediately, but could only remember 1/3 words in 1 minute and 3 minutes. She was unable to tell me, who the present President was and who prior Presidents were. Her mathematical skills were impaired. Her visuospatial function was also impaired. SPEECH: She had a significant dysarthria. LANGUAGE: She was able to express herself and comprehend relatively well in Lao. CRANIAL NERVE EXAMINATION: II: The visual ng were intact on confrontation testing. III, IV & : The external ocular movements were full and the pupils 3 mm in diameter, equal, round, regular, and reactive to light. V: She had normal facial sensations, and the temporales, masseters, and pterygoids functioned normally. VII: She had a right VII central facial paresis. VIII: She was able to hear and had no nystagmus. IX: The palate moved symmetrically on phonation. X: She had no hoarseness of voice. XI: The sternocleidomastoids and trapezii functioned. XII: The tongue was protruded in the midline and stayed protruded all the time. MOTOR SYSTEM: The tone was minimally increased in all four extremities with a combination of spasticity and mild rigidity. Examination of muscle mass revealed generalized muscle wasting. In addition, she had significant contractures of her fingers, ankles, toes, and knees. Examination of power was exceedingly difficult to perform. She had a significant quadriparesis involving the distal muscles more than the proximal muscles. SENSORY EXAMINATION: She was able to discern light touch. She was unable to cooperate further sensory modalities. REFLEXES: Trace+ and bilaterally symmetrical at the biceps, triceps, brachioradialis, and knees, 0 at both ankles. The plantar responses were mute bilaterally. COORDINATION, STANCE & GAIT: Could not be tested. Impression/Recommendations Diagnostic Impression 1. Ms. 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 She was admitted to [facility] on 10/25/2018 when she was sent to the [facility] ER for evaluation after an alleged fall and a bump on her head. 2. She herself denies any fall. She also denies any new neurologic symptoms. She specifically denies any increased weakness, numbness, visual problems, memory problems or other symptoms. 3. She feels much better today. She says she slept well last night. She feels that her parkinsonian symptoms are well controlled. She feels that her mind is clear. She denies any headache. She also denies any new neurologic symptoms. She feels that she is her normal self. 4. On neurological examination, at this time, she is oriented to self, [facility] and September 2018. She is disoriented to the exact date. She has significant problems with recent and remote memory, a significant dysarthria, a right VII central facial paresis, and she keeps her tongue protruded out. She has a right greater than left quadriparesis involving the distal muscles more than the proximal muscles with significant hand, ankle, toe, and knee contractures, globally diminished deep tendon reflexes with loss of plantar responses, and an inability to stand and walk. 5. The CT scan of the brain done on 10/25/18 revealed a smaller right hemisphere compared to the left with shift of midline structures from the right side to the left side and old calcifications but no acute pathology. 6. Laboratory data on my initial evaluation revealed a relatively normal CBC except for low platelet counts. The chemistry panel revealed that her albumin was low at 2.9. Her urinalysis on admission revealed 2+ leukocyte esterase and 2-4 red blood cells and 5-10 white blood cells per HPF. 7. The patient's history, neurological examination, laboratory data, and imaging studies are most compatible with, an insignificant bump to the head, and a UTI. 8. The patient also demonstrates signs of a neurodegenerative disease, the exact type of disease is unknown to us. She does have a parkinsonian syndrome in addition. Recommendations 1. Continue present management. 2. Continue the patient on the present antiparkinsonian regimen. 3. Treatment of infectious process. 4. Observe closely. Harry Callejas M.D., M.S.P.H. Harry Callejas MD Oct 27, 2018 10:19
[2018-10-27] MEDS ORDERED: cefTRIAXone 1 GM in D5W 55 ML IVPB SCH (11:00)
--- NOTE | 2018-10-27 12:32 | Pulmonology Progress Note ---
Assessment/Plan Problems: (1) Sepsis (2) UTI (urinary tract infection) (3) Anemia (4) Elevated CEA (5) Hypertension (6) Parkinson disease (7) Dementia Assessment/Plan swallow study pending has been dilcia at night cardio to see urine and blood cultures iv fluids iv abx anemia w/u swallow study check electrolytes continue bp meds monitor bp Subjective ROS Limited/Unobtainable: Yes Constitutional: Reports: no symptoms HEENT: Repors: no symptoms Allergies: Coded Allergies: No Known Allergies (Unverified , 11/22/15) Objective Last 24 Hour Vital Signs Date Time Temp Pulse Resp B/P (MAP) Pulse Ox O2 Delivery O2 Flow Rate FiO2 10/27/18 09:00 Room Air 10/27/18 09:00 50 108/55 10/27/18 08:00 96.7 50 18 108/55 (72) 98 10/27/18 04:00 46 10/27/18 04:00 98.7 51 18 102/54 (70) 97 10/27/18 00:00 97.0 54 18 129/72 (91) 98 10/27/18 00:00 52 10/26/18 21:00 Room Air 10/26/18 21:00 56 86/47 10/26/18 20:00 57 10/26/18 20:00 97.1 56 20 86/47 (60) 96 10/26/18 16:00 97.9 67 18 109/62 (78) 97 10/26/18 16:00 62 10/26/18 13:59 86 Intake and Output 10/26/18 10/27/18 19:00 07:00 Intake Total 170 ml Output Total 400 ml Balance 170 ml -400 ml Intake Oral 170 ml Output Urine Total 400 ml # Voids 3 General Appearance: WD/WN HEENT: normocephalic, atraumatic Respiratory/Chest: chest wall non-tender, lungs clear Cardiovascular: normal peripheral pulses, normal rate Abdomen: normal bowel sounds, soft, non tender Genitourinary: normal external genitalia Skin: no rash Neurologic/Psychiatric: online communications specialist II-XII grossly normal Microbiology Date/Time Source Procedure Growth Status 10/25/18 20:12 Blood Blood Culture - Preliminary NO GROWTH AFTER 24 HOURS Resulted 10/25/18 20:05 Blood Blood Culture - Preliminary NO GROWTH AFTER 24 HOURS Resulted 10/25/18 14:11 Nasal Nares MRSA Culture - Final NO METHICILLIN RESISTANT STAPH AUREUS... Complete 10/25/18 14:11 Rectum VRE Culture - Final Enterococcus Faecalis - Vre Complete 10/25/18 14:11 Rectum - Final NO CARBAPENEM-RESISTANT ENTEROBACTERI... Complete Laboratory Tests 10/27/18 05:25: White Blood Count 5.2, Red Blood Count 4.25, Hemoglobin 12.4, Hematocrit 37.8, Mean Corpuscular Volume 89, Mean Corpuscular Hemoglobin 29.1, Mean Corpuscular Hemoglobin Concent 32.8, Red Cell Distribution Width 13.2, Platelet Count 156, Mean Platelet Volume 7.5, Neutrophils (%) (Auto) 49.4, Lymphocytes (%) (Auto) 40.0, Monocytes (%) (Auto) 7.4, Eosinophils (%) (Auto) 2.3, Basophils (%) (Auto ) 0.9, Sodium Level 140, Potassium Level 4.0, Chloride Level 110H, Carbon Dioxide Level 21, Anion Gap 9, Blood Urea Nitrogen < 1L, Creatinine 0.4L, Estimat Glomerular Filtration Rate , Glucose Level 75, Calcium Level 10.1 Current Medications Medications (Trade) Dose Ordered Sig/Alex Route PRN Reason Start Time Stop Time Status Last Admin Dose Admin Acetaminophen (Tylenol) 650 mg Q4H PRN ORAL fever 10/25/18 15:00 11/24/18 14:59 Albuterol/ Ipratropium (Albuterol/ Ipratropium) 3 ml Q4H PRN HHN Shortness of Breath 10/25/18 15:00 10/30/18 14:59 Amantadine HCl (Symmetrel) 100 mg TWICE A DAY ORAL 10/25/18 18:00 11/24/18 17:59 10/27/18 09:09 Carbidopa/Levodopa (Sinemet 25/100) 1 tab EVERY 6 HOURS ORAL 10/25/18 18:00 11/24/18 17:59 10/27/18 05:56 Ceftriaxone Sodium 1 gm/ Dextrose 55 ml @ 110 mls/hr Q24H IVPB 10/27/18 11:00 10/28/18 10:59 10/27/18 12:05 Heparin Sodium (Porcine) (Heparin 5000 units/ml) 5,000 units EVERY 12 HOURS SUBQ 10/25/18 21:00 11/24/18 20:59 10/27/18 09:12 Memantine (Namenda) 5 mg BID ORAL 10/27/18 09:00 11/26/18 08:59 10/27/18 09:09 Metoprolol Succinate (Toprol XL) 25 mg Q12HR ORAL 10/25/18 21:00 11/24/18 20:59 10/26/18 09:39 Morphine Sulfate (Morphine Sulfate) 2 mg Q4H PRN IVP Moderate Pain (Pain Scale 4-6) 10/25/18 15:00 11/01/18 14:59 Ondansetron HCl (Zofran) 4 mg Q6H PRN IVP Nausea & Vomiting 10/25/18 15:00 11/24/18 14:59 Phenazopyridine HCl (Pyridium) 100 mg DAILYPRN PRN ORAL dysuria 10/25/18 15:00 11/24/18 14:59 Polyethylene Glycol (Miralax) 17 gm DAILYPRN PRN ORAL Constipation 10/25/18 15:00 11/24/18 14:59 Pramipexole (Mirapex) 0.25 mg THREE TIMES A DAY ORAL 10/25/18 18:00 11/24/18 17:59 10/27/18 09:09 Prazosin HCl (Minipress) 1 mg TID ORAL 10/25/18 18:00 11/24/18 17:59 10/26/18 17:54 Sodium Chloride 550 ml @ 50 mls/hr Q11H IV 10/26/18 00:00 11/25/18 00:00 10/27/18 09:12 Temazepam (Restoril) 15 mg HSPRN PRN ORAL Insomnia 10/25/18 15:00 11/01/18 14:59 Aleksandr Sibley MD Oct 27, 2018 12:32
--- NOTE | 2018-10-27 14:00 | General Progress Note ---
Assessment/Plan Problem List: (1) Sepsis ICD Codes: A41.9 - Sepsis, unspecified organism SNOMED: 45938535 (2) UTI (urinary tract infection) ICD Codes: N39.0 - Urinary tract infection, site not specified SNOMED: 99590043 (3) Anemia ICD Codes: D64.9 - Anemia, unspecified SNOMED: 633660496 (4) Hypoalbuminemia ICD Codes: E88.09 - Other disorders of plasma-protein metabolism, not elsewhere classified SNOMED: 254274905 (5) Parkinson disease ICD Codes: G20 - Parkinson's disease SNOMED: 89401440 (6) Hypertension ICD Codes: I10 - Essential (primary) hypertension SNOMED: 67719086 Qualifiers: Qualified Codes: I10 - Essential (primary) hypertension (7) Dementia ICD Codes: F03.90 - Unspecified dementia without behavioral disturbance SNOMED: 64540228 Status: unchanged Assessment/Plan pt diet abx cbc bmp am Subjective Constitutional: Reports: weakness Allergies: Coded Allergies: No Known Allergies (Unverified , 11/22/15) All Systems: reviewed and negative except above Subjective sleepy in bed calm Objective Last 24 Hour Vital Signs Date Time Temp Pulse Resp B/P (MAP) Pulse Ox O2 Delivery O2 Flow Rate FiO2 10/27/18 12:00 77 10/27/18 12:00 96.9 77 18 122/73 (89) 98 10/27/18 09:00 Room Air 10/27/18 09:00 50 108/55 10/27/18 08:00 48 10/27/18 08:00 96.7 50 18 108/55 (72) 98 10/27/18 04:00 46 10/27/18 04:00 98.7 51 18 102/54 (70) 97 10/27/18 00:00 97.0 54 18 129/72 (91) 98 10/27/18 00:00 52 10/26/18 21:00 Room Air 10/26/18 21:00 56 86/47 10/26/18 20:00 57 10/26/18 20:00 97.1 56 20 86/47 (60) 96 10/26/18 16:00 97.9 67 18 109/62 (78) 97 10/26/18 16:00 62 Intake and Output 10/26/18 10/27/18 19:00 07:00 Intake Total 170 ml Output Total 400 ml Balance 170 ml -400 ml Intake Oral 170 ml Output Urine Total 400 ml # Voids 3 Laboratory Tests 10/27/18 05:25: White Blood Count 5.2, Red Blood Count 4.25, Hemoglobin 12.4, Hematocrit 37.8, Mean Corpuscular Volume 89, Mean Corpuscular Hemoglobin 29.1, Mean Corpuscular Hemoglobin Concent 32.8, Red Cell Distribution Width 13.2, Platelet Count 156, Mean Platelet Volume 7.5, Neutrophils (%) (Auto) 49.4, Lymphocytes (%) (Auto) 40.0, Monocytes (%) (Auto) 7.4, Eosinophils (%) (Auto) 2.3, Basophils (%) (Auto ) 0.9, Sodium Level 140, Potassium Level 4.0, Chloride Level 110H, Carbon Dioxide Level 21, Anion Gap 9, Blood Urea Nitrogen < 1L, Creatinine 0.4L, Estimat Glomerular Filtration Rate , Glucose Level 75, Calcium Level 10.1 Height (Feet): 4 Height (Inches): 11.00 Weight (Pounds): 121 General Appearance: lethargic EENT: normal ENT inspection Neck: normal alignment Cardiovascular: normal peripheral pulses, normal rate, regular rhythm Respiratory/Chest: chest wall non-tender, decreased breath sounds Abdomen: normal bowel sounds, non tender, soft Extremities: normal inspection Edema: no edema noted Arm (L), no edema noted Arm (R), no edema noted Leg (L), no edema noted Leg (R), no edema noted Pedal (L), no edema noted Pedal (R), no edema noted Generalized Neurologic: motor weakness Skin: normal pigmentation, warm/dry Tony Dupree DO Oct 27, 2018 14:00
[2018-10-27] MEDS ORDERED: Metoprolol 5mg/5ml Inj IVP SCH (18:30)
--- NOTE | 2018-10-27 20:13 | Cardiology Progress Note ---
Assessment/Plan Assessment/Plan The patient is seen and examined, full consult note will be dictated. Objective Last 24 Hour Vital Signs Date Time Temp Pulse Resp B/P (MAP) Pulse Ox O2 Delivery O2 Flow Rate FiO2 10/27/18 16:00 97.3 59 18 94/46 (62) 98 10/27/18 12:00 77 10/27/18 12:00 96.9 77 18 122/73 (89) 98 10/27/18 09:00 Room Air 10/27/18 09:00 50 108/55 10/27/18 08:00 48 10/27/18 08:00 96.7 50 18 108/55 (72) 98 10/27/18 04:00 46 10/27/18 04:00 98.7 51 18 102/54 (70) 97 10/27/18 00:00 97.0 54 18 129/72 (91) 98 10/27/18 00:00 52 10/26/18 21:00 Room Air 10/26/18 21:00 56 86/47 Intake and Output 10/26/18 10/27/18 18:59 06:59 Intake Total 170 ml Output Total 400 ml Balance 170 ml -400 ml Intake Oral 170 ml Output Urine Total 400 ml # Voids 3 Laboratory Tests Test 10/27/18 05:25 White Blood Count 5.2 K/UL (4.8-10.8) Red Blood Count 4.25 M/UL (4.20-5.40) Hemoglobin 12.4 G/DL (12.0-16.0) Hematocrit 37.8 % (37.0-47.0) Mean Corpuscular Volume 89 FL (80-99) Mean Corpuscular Hemoglobin 29.1 PG (27.0-31.0) Mean Corpuscular Hemoglobin Concent 32.8 G/DL (32.0-36.0) Red Cell Distribution Width 13.2 % (11.6-14.8) Platelet Count 156 K/UL (150-450) Mean Platelet Volume 7.5 FL (6.5-10.1) Neutrophils (%) (Auto) 49.4 % (45.0-75.0) Lymphocytes (%) (Auto) 40.0 % (20.0-45.0) Monocytes (%) (Auto) 7.4 % (1.0-10.0) Eosinophils (%) (Auto) 2.3 % (0.0-3.0) Basophils (%) (Auto) 0.9 % (0.0-2.0) Sodium Level 140 MMOL/L (136-145) Potassium Level 4.0 MMOL/L (3.5-5.1) Chloride Level 110 MMOL/L (98-107) H Carbon Dioxide Level 21 MMOL/L (21-32) Anion Gap 9 mmol/L (5-15) Blood Urea Nitrogen < 1 mg/dL (7-18) L Creatinine 0.4 MG/DL (0.55-1.30) L Estimat Glomerular Filtration Rate mL/min (>60) Glucose Level 75 MG/DL (74-106) Calcium Level 10.1 MG/DL (8.5-10.1) Microbiology Date/Time Source Procedure Growth Status 10/25/18 20:12 Blood Blood Culture - Preliminary NO GROWTH AFTER 24 HOURS Resulted 10/25/18 20:05 Blood Blood Culture - Preliminary NO GROWTH AFTER 24 HOURS Resulted 10/25/18 14:11 Nasal Nares MRSA Culture - Final NO METHICILLIN RESISTANT STAPH AUREUS... Complete 10/25/18 14:11 Rectum VRE Culture - Final Enterococcus Faecalis - Vre Complete 10/25/18 14:11 Rectum - Final NO CARBAPENEM-RESISTANT ENTEROBACTERI... Complete Flex Winters MD Oct 27, 2018 20:13
[2018-10-27] MEDS ORDERED: Digoxin 0.5mg/2ml Inj IVP SCH ×2 (20:30→22:00)
--- NOTE | 2018-10-27 22:45 | Consultation ---
DATE OF CONSULTATION: 10/27/2018 CARDIOLOGY CONSULTATION CONSULTING PHYSICIAN: Flex Winters M.D. REFERRING PHYSICIAN: Tony Dupree D.O. REASON FOR CONSULTATION: Management of atrial fibrillation with rapid ventricular response. HISTORY OF PRESENT ILLNESS: The patient is a very unfortunate 73-year-old female with functional quadriplegia, who is [facility] for evaluation of alleged fall. The patient had a bump on her forehead, it is not quite certain how this has occurred. It is not quite clear whether the patient had syncopal event or not. The patient has severe Parkinson disease. Her cardiovascular history is also significant for history of hypertension and bradycardia. At the time of arrival to the hospital, denies any chest pain or shortness of breath. Initial blood pressure in the emergency department was 171/94 mmHg and pulse of 70. A 12-lead electrocardiogram at the time of arrival to this facility revealed sinus rhythm at a heart rate of 75 with premature supraventricular complexes. The patient was admitted to the telemetry and underwent workup of fall. While on the floor, she developed hypotension with compression of the rhythm to atrial fibrillation with rapid ventricular response. Cardiology consultation was made at request of Dr. Dupree for evaluation and management of this condition. PAST MEDICAL HISTORY: 1. History of bradycardia, which was believed to be due to beta-blockers. 2. History of hypotension, believed to be due to sepsis. 3. History of urinary tract infection. 4. History of toxic encephalopathy. 5. History of Parkinson disease. 6. History of functional paraplegia. 7. History of dysphagia. 8. History of major depressive disorder. PAST SURGICAL HISTORY: None. ALLERGIES: No known drug allergies. PAST SURGICAL HISTORY: None. MEDICATIONS: List of medications: 1. Acetaminophen 650 mg q.4 h. p.r.n. pain. 2. Amantadine 100 mg p.o. twice daily. 3. Vitamin C 250 mg twice daily. 4. Dulcolax 10 mg rectal at bedtime p.r.n. constipation. 5. Carbidopa and levodopa 25/100 one tablet q.6 h. 6. Cefepime 2 g IV piggyback q.24 h. x2 days. 7. Colace 100 mg p.o. twice daily. 8. Robitussin 30 mL q.6 h. p.r.n. cough. 9. Heparin sodium 5000 units subcutaneously q.12 h. 10. Lisinopril 10 mg p.o. daily. 11. Metoprolol 25 mg twice daily. 12. Multivitamin one tablet p.o. daily. 13. mg p.o. daily. 14. Zofran 4 mg q.6 h. p.r.n. nausea and vomiting. 15. Protonix 40 mg p.o. daily. 16. Mirapex 0.25 mg three times a day. 17. Prazosin 1 mg p.o. three times a day. 18. Zolpidem 5 mg p.o. nightly p.r.n. insomnia. SOCIAL HISTORY: Resident of a jail facility. No tobacco, alcohol, or illicit drug use. FAMILY HISTORY: No premature coronary artery disease or arrhythmogenic in the first-degree relatives. PHYSICAL EXAMINATION: VITAL SIGNS: Blood pressure is currently at 68/30 mmHg, heart rate of 130, temperature 97.3 degrees Fahrenheit, and O2 saturation 99% on room air. GENERAL: The patient is a very unfortunate 73-year-old lady who is not verbally communicating, awake, and alert. HEENT: Atraumatic and normocephalic. Anicteric. Pupils are equal, round, and reactive to light and accommodation. Extraocular muscles intact. NECK: JVP is less than 5 cm. No carotid bruit. Carotid upstrokes 2+ bilaterally. CARDIOVASCULAR: Normal S1 and S2. Irregularly irregular rhythm. Tachycardiac. No murmurs, gallops, or rubs. LUNGS: Clear to auscultation bilaterally. ABDOMEN: Soft, nontender, and nondistended. No hepatosplenomegaly. Positive bowel sounds. EXTREMITIES: There are contracted extremities. No evidence of edema, clubbing, or cyanosis. LABORATORY AND DIAGNOSTIC DATA: Laboratory findings, WBC was 7.0, hemoglobin of 14.2, hematocrit of 43.8, and platelet count is 188,000. Sodium 141, potassium 3.6, chloride 105, bicarbonate 26, BUN of 12, creatinine 0.4, glucose 103, and calcium is 10.2. Troponin I was 0.03 and proBNP is 153. INR is 1.0. Chest x-ray showed hypoventilation, bibasilar lung atelectasis, and mild central vascular prominence. ASSESSMENT AND PLAN: The patient is a very unfortunate 73-year-old lady, who is seen in Cardiology consultation. 1. Atrial fibrillation with rapid ventricular response, new onset. I would like to keep the patient on digoxin 0.5 mg x1 dose and two liters of normal saline as the patient is hypotensive. 2. A 2D echocardiography from 2018 had shown normal LV systolic function with LVEF of approximately 55%. 3. Hypotension, this could be due to occult sepsis. The patient's white count is within normal limits. I would like to provide 2 L of normal saline. Chest x-ray did not show any evidence of congestive heart failure and a 2D echocardiography in 2018 showed normal LV systolic function with LVEF of 55%. If the patient does not respond to 2 L of IV fluid, she will be transferred to ICU for low dose IV pressors. The patient might ultimately required to be on amiodarone drip if the atrial fibrillation is persistent. We will make a decision also on anticoagulation therapy given her CHADS-VASc Score system. Thank you, Dr. Dupree, for allowing me to participate in the care of this patient. Flex Winters M.D. DR: MARLYN JOB#: [id number] CC:
[2018-10-28] VITALS: BP 120/72
--- NOTE | 2018-10-28 03:15 | Consultation ---
DATE OF CONSULTATION: 10/26/2018 NOTE: POOR AUDIO PSYCHOTHERAPY CONSULTATION PROGRESS NOTE CONSULTING PHYSICIAN: Ariana Adamson PsyD. TREATING ATTENDING PHYSICIAN: Tony Dupree D.O. HISTORY OF PRESENT ILLNESS: The patient is a 73-year-old female patient from [facility]. The patient was brought into the hospital for dehydration and she also had altered mental status and confused and for these reasons, she was referred for psychotherapeutic services . This clinician assessed this patient. At this time, the patient is very confused and disorganized. The patient has been very helpless, sitting in the bed, forgetful, weak, and lethargic, however, member were stating that she felt tired. She denies suicidal or homicidal thoughts of ideation. There is no indication of auditory or visual hallucinations. The patient is a poor historian . She does not recall why she was brought into the hospital setting. The patient is very healthy at this time and she has been cooperative with the nursing staff. PAST MEDICAL HISTORY: Include history of Parkinson's, UTI, anemia, hypertension, and possible dementia. ALLERGIES: The patient has no known drug allergies. SUBSTANCE USE HISTORY: The patient denies history of alcohol use, illicit substance use, or smoking cigarettes. PAST PSYCHIATRIC HISTORY: This patient had a history of possible major depression. SOCIAL HISTORY: The patient is , 73-year-old female patient from [facility]. Financially sustained through [employer]. MENTAL STATUS EXAMINATION: The patient is alert and oriented to person. Her mood is dysphoric. Affect is blunted. Thought process, disorganized. Thought content, confused. Poor attention and concentration. Poor insight, judgment, and impulse control. . 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 PLAN: This clinician assessed this patient. Provide the patient with realty orientation . The patient is confused and disoriented. Oriented to person, place, time and situation. Provided the patient with supportive psychotherapy . The patient is very helpless, hopeless and dysphoric. medication management. Continue with behavioral management as necessary. Encouraging . Ariana Adamson PsyD. DR: TIA JOB#: [id number] CC:
[2018-10-28 04:00] VITALS: BP 125/73
[2018-10-28] MEDS: Levodopa/Carbidopa 25/100 tab ORAL SCH ×3 (06:44→17:45)
[2018-10-28] MEDS: Sodium Chloride 550 ML IV SCH ×2 (06:46→18:00)
[2018-10-28 08:00] VITALS: BP 102/57
--- NOTE | 2018-10-28 08:25 | Infectious Diseases Prog Note ---
Assessment/Plan Assessment/Plan Gen: NAD, Thin HEENT: NCAT, MMM, EOMI, PERRL, No Oral lesion, no scleral icterus NECK: full range of motion, supple, no meningismus, No LAD, No JVD LUNGS: CTAB, No W/C, No Accessory muscle use CARDS: RRR, S1, S2, No M/R/G, ABD: Soft, NT, ND, No R/G, + BS, No HSM, No Masses : Deferred Ext: C/C/E, Pulses 2+ B/L (DP, Rad): Contractures NEURO: A/O x 3, Strength and Sensation Grossly intact SKIN: Warm/dry, No rashes, sacral Decub (not infected) Assessment/Plan Assessment/Plan Assessment/Plan 73 yo female with PMHx of parkinonism and HTN who was sent tot ED from her alf after a fall. UTI Patient with dehydration and fall with AMS - This could be a manifestation of sepsis from occult UTI Patient already had 2 days of cefepime S/P Fall Parkinsons HTN Dysphagia PLAN - Start Ceftriaxone #2/2 to finish a short course of abx for UTI. - D/C Cefepime #2 and [place]com[place]in #2 - f/u Cultures - Monitor CBC and Temps - OK to D/C off Abx from an ID perspective - VRE RECTUM IS A COLONIZER We will continue to follow the patient during this hospitalization. Subjective Allergies: Coded Allergies: No Known Allergies (Unverified , 11/22/15) Subjective Afebrile No leukocytosis MARIO Objective Vital Signs Last 24 Hour Vital Signs Date Time Temp Pulse Resp B/P (MAP) Pulse Ox O2 Delivery O2 Flow Rate FiO2 10/28/18 04:00 54 10/28/18 04:00 98.6 73 20 125/73 (90) 97 10/28/18 00:00 61 10/28/18 00:00 98.2 69 20 120/72 (88) 100 10/27/18 22:10 62 10/27/18 21:12 99.0 69 20 82/48 (59) 98 10/27/18 21:00 Room Air 10/27/18 20:30 62 10/27/18 20:13 97.3 130 68/30 (43) 99 10/27/18 20:00 150 10/27/18 16:00 97.3 59 18 94/46 (62) 98 10/27/18 12:00 77 10/27/18 12:00 96.9 77 18 122/73 (89) 98 10/27/18 09:00 Room Air 10/27/18 09:00 50 108/55 Height (Feet): 4 Height (Inches): 11.00 Weight (Pounds): 121 Objective Gen: NAD, Awake and alert HEENT: NCAT, MMM, EOMI LUNGS: CTAB, No W CARDS: RRR, S1, S2 ABD: Soft, NT, ND, + BS Ext: C/C/E, Pulses 2+ B/L (DP, Rad): Contractures Microbiology Date/Time Source Procedure Growth Status 10/25/18 20:12 Blood Blood Culture - Preliminary NO GROWTH AFTER 48 HOURS Resulted 10/25/18 20:05 Blood Blood Culture - Preliminary NO GROWTH AFTER 48 HOURS Resulted 10/25/18 14:11 Nasal Nares MRSA Culture - Final NO METHICILLIN RESISTANT STAPH AUREUS... Complete 10/25/18 14:11 Rectum VRE Culture - Final Enterococcus Faecalis - Vre Complete 10/25/18 14:11 Rectum - Final NO CARBAPENEM-RESISTANT ENTEROBACTERI... Complete Current Medications Medications (Trade) Dose Ordered Sig/Alex Route PRN Reason Start Time Stop Time Status Last Admin Dose Admin Acetaminophen (Tylenol) 650 mg Q4H PRN ORAL fever 10/25/18 15:00 11/24/18 14:59 Albuterol/ Ipratropium (Albuterol/ Ipratropium) 3 ml Q4H PRN HHN Shortness of Breath 10/25/18 15:00 10/30/18 14:59 Amantadine HCl (Symmetrel) 100 mg TWICE A DAY ORAL 10/25/18 18:00 11/24/18 17:59 10/27/18 18:41 Carbidopa/Levodopa (Sinemet 25/100) 1 tab EVERY 6 HOURS ORAL 10/25/18 18:00 11/24/18 17:59 10/28/18 06:44 Ceftriaxone Sodium 1 gm/ Dextrose 55 ml @ 110 mls/hr Q24H IVPB 10/27/18 11:00 10/28/18 10:59 10/27/18 12:05 Clonidine HCl (Catapres Tab) 0.1 mg Q4H PRN ORAL sbp >160 10/27/18 12:45 11/26/18 12:44 Heparin Sodium (Porcine) (Heparin 5000 units/ml) 5,000 units EVERY 12 HOURS SUBQ 10/25/18 21:00 11/24/18 20:59 10/27/18 09:12 Memantine (Namenda) 5 mg BID ORAL 10/27/18 09:00 11/26/18 08:59 10/27/18 18:41 Metoprolol Tartrate (Lopressor) 5 mg Q5MIN X 3 IVP 10/27/18 18:30 11/26/18 18:29 Morphine Sulfate (Morphine Sulfate) 2 mg Q4H PRN IVP Moderate Pain (Pain Scale 4-6) 10/25/18 15:00 11/01/18 14:59 Ondansetron HCl (Zofran) 4 mg Q6H PRN IVP Nausea & Vomiting 10/25/18 15:00 11/24/18 14:59 Phenazopyridine HCl (Pyridium) 100 mg DAILYPRN PRN ORAL dysuria 10/25/18 15:00 11/24/18 14:59 Polyethylene Glycol (Miralax) 17 gm DAILYPRN PRN ORAL Constipation 10/25/18 15:00 11/24/18 14:59 Pramipexole (Mirapex) 0.25 mg THREE TIMES A DAY ORAL 10/25/18 18:00 11/24/18 17:59 10/27/18 18:41 Sodium Chloride 550 ml @ 50 mls/hr Q11H IV 10/26/18 00:00 11/25/18 00:00 10/28/18 06:46 Temazepam (Restoril) 15 mg HSPRN PRN ORAL Insomnia 10/25/18 15:00 11/01/18 14:59 Jasvir Mar MD Oct 28, 2018 08:25
[2018-10-28 08:28] LABS: BASOPHILS % (AUTO) 0.7 % (0.0-2.0); EOSINOPHILS % (AUTO) 1.2 % (0.0-3.0); HEMATOCRIT 34.8 % (37.0-47.0); HEMOGLOBIN 11.8 G/DL (12.0-16.0); LYMPHOCYTES % (AUTO) 22.9 % (20.0-45.0); MEAN CORPUSCULAR VOLUME 87 FL (80-99); NEUTROPHILS % (AUTO) 69.1 % (45.0-75.0); PLATELET COUNT 136 K/UL (150-450); RED BLOOD COUNT 3.99 M/UL (4.20-5.40); RED CELL DISTRIBUTION WIDTH 13.1 % (11.6-14.8); WHITE BLOOD COUNT 4.7 K/UL (4.8-10.8)
[2018-10-28] MEDS: Amantadine 100mg cap ORAL SCH ×2 (08:47→17:45)
[2018-10-28] MEDS: Memantine 5 MG TAB ORAL SCH ×2 (08:47→17:45)
[2018-10-28] MEDS: Heparin 5000 units/ml inj SUBQ SCH ×2 (08:51→21:15)
[2018-10-28 09:39] LABS: ALBUMIN 2.8 G/DL (3.4-5.0); ALBUMIN/GLOBULIN RATIO 0.9 (1.0-2.7); ALKALINE PHOSPHATASE 91 U/L (46-116); ANION GAP 7 mmol/L (5-15); ASPARTATE AMINO TRANSFERASE 17 U/L (15-37); BILIRUBIN,TOTAL 0.8 MG/DL (0.2-1.0); BLOOD UREA NITROGEN 9 mg/dL (7-18); CALCIUM 9.6 MG/DL (8.5-10.1); CARBON DIOXIDE 23 MMOL/L (21-32); CHLORIDE 111 MMOL/L (98-107); CREATININE 0.4 MG/DL (0.55-1.30); PHOSPHORUS 2.3 MG/DL (2.5-4.9); POTASSIUM 3.5 MMOL/L (3.5-5.1); SODIUM 141 MMOL/L (136-145)
[2018-10-28 10:04] LABS: ALANINE AMINOTRANSFERASE 9 U/L (12-78)
[2018-10-28] MEDS ORDERED: cefTRIAXone 1 GM in D5W 55 ML IVPB SCH (11:00)
[2018-10-28 12:00] VITALS: BP 149/83
--- NOTE | 2018-10-28 12:37 | Pulmonology Progress Note ---
Assessment/Plan Problems: (1) Sepsis (2) Paroxysmal A-fib (3) UTI (urinary tract infection) (4) Anemia (5) Elevated CEA (6) Hypertension (7) Parkinson disease (8) Dementia Assessment/Plan no new complains urine and blood cultures had afib last night, now sinus iv fluids iv abx anemia w/u swallow study check electrolytes continue bp meds Subjective ROS Limited/Unobtainable: No Constitutional: Reports: no symptoms HEENT: Repors: no symptoms Allergies: Coded Allergies: No Known Allergies (Unverified , 11/22/15) Objective Last 24 Hour Vital Signs Date Time Temp Pulse Resp B/P (MAP) Pulse Ox O2 Delivery O2 Flow Rate FiO2 10/28/18 09:00 Room Air 10/28/18 08:04 74 10/28/18 08:00 98.8 67 18 102/57 (72) 96 10/28/18 04:00 54 10/28/18 04:00 98.6 73 20 125/73 (90) 97 10/28/18 00:00 61 10/28/18 00:00 98.2 69 20 120/72 (88) 100 10/27/18 22:10 62 10/27/18 21:12 99.0 69 20 82/48 (59) 98 10/27/18 21:00 Room Air 10/27/18 20:30 62 10/27/18 20:13 97.3 130 68/30 (43) 99 10/27/18 20:00 150 10/27/18 16:00 97.3 59 18 94/46 (62) 98 Intake and Output 10/27/18 10/28/18 19:00 07:00 Intake Total 240 ml Output Total 400 ml 350 ml Balance -160 ml -350 ml Intake Oral 240 ml Output Urine Total 400 ml 350 ml # Bowel Movements 1 General Appearance: WD/WN HEENT: normocephalic, atraumatic Breasts: no masses Cardiovascular: normal peripheral pulses, normal rate Abdomen: normal bowel sounds, soft, non tender Genitourinary: normal external genitalia Extremities: no clubbing Skin: no lesions 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 Complete 10/25/18 14:11 Rectum VRE Culture - Final Enterococcus Faecalis - Vre Complete 10/25/18 14:11 Rectum - Final NO CARBAPENEM-RESISTANT ENTEROBACTERI... Complete Laboratory Tests 10/28/18 07:13: White Blood Count 4.7L, Red Blood Count 3.99L, Hemoglobin 11.8L, Hematocrit 34.8L, Mean Corpuscular Volume 87, Mean Corpuscular Hemoglobin 29.6, Mean Corpuscular Hemoglobin Concent 33.9, Red Cell Distribution Width 13.1, Platelet Count 136L, Mean Platelet Volume 8.5, Neutrophils (%) (Auto) 69.1, Lymphocytes ( %) (Auto) 22.9, Monocytes (%) (Auto) 6.0, Eosinophils (%) (Auto) 1.2, Basophils (%) (Auto) 0.7, Sodium Level 141, Potassium Level 3.5, Chloride Level 111H, Carbon Dioxide Level 23, Anion Gap 7, Blood Urea Nitrogen 9, Creatinine 0.4L, Estimat Glomerular Filtration Rate , Glucose Level 114H, Calcium Level 9.6, Phosphorus Level 2.3L, Magnesium Level 1.9, Total Bilirubin 0.8, Aspartate Amino Transf (AST/SGOT) 17, Alanine Aminotransferase (ALT/SGPT) 9L, Alkaline Phosphatase 91, Total Protein 6.0L, Albumin 2.8L, Globulin 3.2, Albumin/ Globulin Ratio 0.9L Current Medications Medications (Trade) Dose Ordered Sig/Alex Route PRN Reason Start Time Stop Time Status Last Admin Dose Admin Acetaminophen (Tylenol) 650 mg Q4H PRN ORAL fever 10/25/18 15:00 11/24/18 14:59 Albuterol/ Ipratropium (Albuterol/ Ipratropium) 3 ml Q4H PRN HHN Shortness of Breath 10/25/18 15:00 10/30/18 14:59 Amantadine HCl (Symmetrel) 100 mg TWICE A DAY ORAL 10/25/18 18:00 11/24/18 17:59 10/28/18 08:47 Carbidopa/Levodopa (Sinemet 25/100) 1 tab EVERY 6 HOURS ORAL 10/25/18 18:00 11/24/18 17:59 10/28/18 12:32 Ceftriaxone Sodium 1 gm/ Dextrose 55 ml @ 110 mls/hr Q24H IVPB 10/28/18 11:00 10/28/18 23:00 10/28/18 12:32 Clonidine HCl (Catapres Tab) 0.1 mg Q4H PRN ORAL sbp >160 10/27/18 12:45 11/26/18 12:44 Heparin Sodium (Porcine) (Heparin 5000 units/ml) 5,000 units EVERY 12 HOURS SUBQ 10/25/18 21:00 11/24/18 20:59 10/28/18 08:51 Memantine (Namenda) 5 mg BID ORAL 10/27/18 09:00 11/26/18 08:59 10/28/18 08:47 Metoprolol Tartrate (Lopressor) 5 mg Q5MIN X 3 IVP 10/27/18 18:30 11/26/18 18:29 Morphine Sulfate (Morphine Sulfate) 2 mg Q4H PRN IVP Moderate Pain (Pain Scale 4-6) 10/25/18 15:00 11/01/18 14:59 Ondansetron HCl (Zofran) 4 mg Q6H PRN IVP Nausea & Vomiting 10/25/18 15:00 11/24/18 14:59 Phenazopyridine HCl (Pyridium) 100 mg DAILYPRN PRN ORAL dysuria 10/25/18 15:00 11/24/18 14:59 Polyethylene Glycol (Miralax) 17 gm DAILYPRN PRN ORAL Constipation 10/25/18 15:00 11/24/18 14:59 Pramipexole (Mirapex) 0.25 mg THREE TIMES A DAY ORAL 10/25/18 18:00 11/24/18 17:59 10/28/18 12:32 Sodium Chloride 550 ml @ 50 mls/hr Q11H IV 10/26/18 00:00 11/25/18 00:00 10/28/18 06:46 Temazepam (Restoril) 15 mg HSPRN PRN ORAL Insomnia 10/25/18 15:00 11/01/18 14:59 Aleksandr Sibley MD Oct 28, 2018 12:37
--- NOTE | 2018-10-28 13:53 | General Progress Note ---
Assessment/Plan Problem List: (1) Sepsis ICD Codes: A41.9 - Sepsis, unspecified organism SNOMED: 31187696 (2) UTI (urinary tract infection) ICD Codes: N39.0 - Urinary tract infection, site not specified SNOMED: 98605798 (3) Anemia ICD Codes: D64.9 - Anemia, unspecified SNOMED: 338733170 (4) Hypoalbuminemia ICD Codes: E88.09 - Other disorders of plasma-protein metabolism, not elsewhere classified SNOMED: 818381096 (5) Parkinson disease ICD Codes: G20 - Parkinson's disease SNOMED: 09455744 (6) Hypertension ICD Codes: I10 - Essential (primary) hypertension SNOMED: 68495558 Qualifiers: Qualified Codes: I10 - Essential (primary) hypertension (7) Dementia ICD Codes: F03.90 - Unspecified dementia without behavioral disturbance SNOMED: 32437626 Status: unchanged Assessment/Plan pt diet abx cbc bmp am brotman aru eval Subjective Constitutional: Reports: weakness Allergies: Coded Allergies: No Known Allergies (Unverified , 11/22/15) All Systems: reviewed and negative except above Subjective sleepy in bed calm Objective Last 24 Hour Vital Signs Date Time Temp Pulse Resp B/P (MAP) Pulse Ox O2 Delivery O2 Flow Rate FiO2 10/28/18 12:00 97.9 68 18 149/83 (105) 96 10/28/18 09:00 Room Air 10/28/18 08:04 74 10/28/18 08:00 98.8 67 18 102/57 (72) 96 10/28/18 04:00 54 10/28/18 04:00 98.6 73 20 125/73 (90) 97 10/28/18 00:00 61 10/28/18 00:00 98.2 69 20 120/72 (88) 100 10/27/18 22:10 62 10/27/18 21:12 99.0 69 20 82/48 (59) 98 10/27/18 21:00 Room Air 10/27/18 20:30 62 10/27/18 20:13 97.3 130 68/30 (43) 99 10/27/18 20:00 150 10/27/18 16:00 97.3 59 18 94/46 (62) 98 Intake and Output 10/27/18 10/28/18 19:00 07:00 Intake Total 240 ml Output Total 400 ml 350 ml Balance -160 ml -350 ml Intake Oral 240 ml Output Urine Total 400 ml 350 ml # Bowel Movements 1 Laboratory Tests 10/28/18 07:13: White Blood Count 4.7L, Red Blood Count 3.99L, Hemoglobin 11.8L, Hematocrit 34.8L, Mean Corpuscular Volume 87, Mean Corpuscular Hemoglobin 29.6, Mean Corpuscular Hemoglobin Concent 33.9, Red Cell Distribution Width 13.1, Platelet Count 136L, Mean Platelet Volume 8.5, Neutrophils (%) (Auto) 69.1, Lymphocytes ( %) (Auto) 22.9, Monocytes (%) (Auto) 6.0, Eosinophils (%) (Auto) 1.2, Basophils (%) (Auto) 0.7, Sodium Level 141, Potassium Level 3.5, Chloride Level 111H, Carbon Dioxide Level 23, Anion Gap 7, Blood Urea Nitrogen 9, Creatinine 0.4L, Estimat Glomerular Filtration Rate , Glucose Level 114H, Calcium Level 9.6, Phosphorus Level 2.3L, Magnesium Level 1.9, Total Bilirubin 0.8, Aspartate Amino Transf (AST/SGOT) 17, Alanine Aminotransferase (ALT/SGPT) 9L, Alkaline Phosphatase 91, Total Protein 6.0L, Albumin 2.8L, Globulin 3.2, Albumin/ Globulin Ratio 0.9L Height (Feet): 4 Height (Inches): 11.00 Weight (Pounds): 121 General Appearance: lethargic EENT: normal ENT inspection Neck: normal alignment Cardiovascular: normal peripheral pulses, normal rate, regular rhythm Respiratory/Chest: chest wall non-tender, lungs clear, normal breath sounds Abdomen: normal bowel sounds, non tender, soft Extremities: normal inspection Edema: no edema noted Arm (L), no edema noted Arm (R), no edema noted Leg (L), no edema noted Leg (R), no edema noted Pedal (L), no edema noted Pedal (R), no edema noted Generalized Neurologic: motor weakness Skin: normal pigmentation, warm/dry Tony Dupree DO Oct 28, 2018 13:53
[2018-10-28 16:00] VITALS: BP 102/57
--- NOTE | 2018-10-28 16:10 | Neurology Progress Note ---
Interim History Interim History Interim History Ms. Gao continues to feel much better. She slept well last night. She has been eating well. She feels that her parkinsonian symptoms are well controlled. She feels that her mind is clear. She denies any headache. She also denies any new neurologic symptoms. She specifically denies any increased weakness, numbness, visual problems, memory problems or other symptoms. She feels that she is her normal self. Review of Systems Neuro Review of Systems Benign. Objective Physical Exam Last Vital Signs Date Time Temp Pulse Resp B/P (MAP) Pulse Ox O2 Delivery O2 Flow Rate FiO2 10/28/18 12:00 97.9 68 18 149/83 (105) 96 10/28/18 09:00 Room Air Laboratory Tests Test 10/28/18 07:13 White Blood Count 4.7 K/UL (4.8-10.8) L Red Blood Count 3.99 M/UL (4.20-5.40) L Hemoglobin 11.8 G/DL (12.0-16.0) L Hematocrit 34.8 % (37.0-47.0) L Mean Corpuscular Volume 87 FL (80-99) Mean Corpuscular Hemoglobin 29.6 PG (27.0-31.0) Mean Corpuscular Hemoglobin Concent 33.9 G/DL (32.0-36.0) Red Cell Distribution Width 13.1 % (11.6-14.8) Platelet Count 136 K/UL (150-450) L Mean Platelet Volume 8.5 FL (6.5-10.1) Neutrophils (%) (Auto) 69.1 % (45.0-75.0) Lymphocytes (%) (Auto) 22.9 % (20.0-45.0) Monocytes (%) (Auto) 6.0 % (1.0-10.0) Eosinophils (%) (Auto) 1.2 % (0.0-3.0) Basophils (%) (Auto) 0.7 % (0.0-2.0) Sodium Level 141 MMOL/L (136-145) Potassium Level 3.5 MMOL/L (3.5-5.1) Chloride Level 111 MMOL/L (98-107) H Carbon Dioxide Level 23 MMOL/L (21-32) Anion Gap 7 mmol/L (5-15) Blood Urea Nitrogen 9 mg/dL (7-18) Creatinine 0.4 MG/DL (0.55-1.30) L Estimat Glomerular Filtration Rate mL/min (>60) Glucose Level 114 MG/DL (74-106) H Calcium Level 9.6 MG/DL (8.5-10.1) Phosphorus Level 2.3 MG/DL (2.5-4.9) L Magnesium Level 1.9 MG/DL (1.8-2.4) Total Bilirubin 0.8 MG/DL (0.2-1.0) Aspartate Amino Transf (AST/SGOT) 17 U/L (15-37) Alanine Aminotransferase (ALT/SGPT) 9 U/L (12-78) L Alkaline Phosphatase 91 U/L (46-116) Total Protein 6.0 G/DL (6.4-8.2) L Albumin 2.8 G/DL (3.4-5.0) L Globulin 3.2 g/dL Albumin/Globulin Ratio 0.9 (1.0-2.7) L Neurologic Exam Objective PHYSICAL EXAMINATION: GENERAL: She is a well-developed, but lean lady, lying in bed, in no acute distress. HEAD: Normocephalic and atraumatic. NECK: No neck rigidity was observed. EENT: Examination benign except for tongue protruding out. SPINE: Cervical, thoracic, and lumbosacral spine revealed a kyphoscoliotic curve. NEUROLOGICAL EXAMINATION: MENTAL STATUS EXAMINATION: She was awake and alert. She was oriented to [facility], [facility], and September 2018. She did not know the exact date. She was able to recall 3/3 words immediately, but could only remember 1/3 words in 1 minute and 3 minutes. She was unable to tell me, who the present President was and who prior Presidents were. Her mathematical skills were impaired. Her visuospatial function was also impaired. SPEECH: She had a significant dysarthria. LANGUAGE: She was able to express herself and comprehend relatively well in [place]. CRANIAL NERVE EXAMINATION: II: The visual ng were intact on confrontation testing. III, IV & : The external ocular movements were full and the pupils 3 mm in diameter, equal, round, regular, and reactive to light. V: She had normal facial sensations, and the temporales, masseters, and pterygoids functioned normally. VII: She had a right VII central facial paresis. VIII: She was able to hear and had no nystagmus. IX: The palate moved symmetrically on phonation. X: She had no hoarseness of voice. XI: The sternocleidomastoids and trapezii functioned. XII: The tongue was protruded in the midline and stayed protruded all the time. MOTOR SYSTEM: The tone was minimally increased in all four extremities with a combination of spasticity and mild rigidity. Examination of muscle mass revealed generalized muscle wasting. In addition, she had significant contractures of her fingers, ankles, toes, and knees. Examination of power was exceedingly difficult to perform. She had a significant quadriparesis involving the distal muscles more than the proximal muscles. SENSORY EXAMINATION: She was able to discern light touch. She was unable to cooperate further sensory modalities. REFLEXES: Trace+ and bilaterally symmetrical at the biceps, triceps, brachioradialis, and knees, 0 at both ankles. The plantar responses were mute bilaterally. COORDINATION, STANCE & GAIT: Could not be tested. Impression/Recommendations Diagnostic Impression 1. Ms. 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 She [place] [facility] [place] when she was sent [place] [facility] [place] after an alleged fall and a bump on her head. 2. She herself denies any fall. She also denies any new neurologic symptoms. She specifically denies any increased weakness, numbness, visual problems, memory problems or other symptoms. 3. She continues to feel much better. She slept well last night. She has been eating well. She feels that her parkinsonian symptoms are well controlled. She feels that her mind is clear. She denies any headache. She also denies any new neurologic symptoms. She specifically denies any increased weakness, numbness, visual problems, memory problems or other symptoms. She feels that she is her normal self. 4. On neurological examination, at this time, she is oriented to self, [facility] and September 2018. She is disoriented to the exact date. She has significant problems with recent and remote memory, a significant dysarthria, a right VII central facial paresis, and she keeps her tongue protruded out. She has a right greater than left quadriparesis involving the distal muscles more than the proximal muscles with significant hand, ankle, toe, and knee contractures, globally diminished deep tendon reflexes with loss of plantar responses, and an inability to stand and walk. 5. The CT scan of the brain done on 10/25/18 revealed a smaller right hemisphere compared to the left with shift of midline structures from the right side to the left side and old calcifications but no acute pathology. 6. Laboratory data on my initial evaluation revealed a relatively normal CBC except for low platelet counts. The chemistry panel revealed that her albumin was low at 2.9. Her urinalysis on admission revealed 2+ leukocyte esterase and 2-4 red blood cells and 5-10 white blood cells per HPF. 7. The patient's history, neurological examination, laboratory data, and imaging studies are most compatible with, an insignificant bump to the head, and a UTI. 8. The patient also demonstrates signs of a neurodegenerative disease, the exact type of disease is unknown to us. She does have a parkinsonian syndrome in addition. Recommendations 1. Continue present management. 2. Continue the patient on the present antiparkinsonian regimen. 3. Treatment of infectious process. 4. Observe. Harry Callejas M.D., M.S.P.H. Harry Callejas MD Oct 28, 2018 16:10
--- NOTE | 2018-10-28 19:45 | Progress Note ---
DATE: 10/28/2018 SUBJECTIVE: The patient is a 73-year-old female patient with dehydration. She has some confusion, some disorganized thought process, and mood lability worsened by stress of her medical illness. That is why, her attending physician has requested daily psychiatric consultation. She does have some confusion, disorganized thought process, and mood lability. MENTAL STATUS EXAMINATION: A 73-year-old female. Appearance is disheveled. Attitude, irritable and agitated. Affect, guarded and restricted. Intellect poor. Mood, depressed and anxious. Motor activity, psychomotor agitation. Attention span is poor. Orientation x2. Speech is pressured. Thought process, disorganized and illogical. Thought content, auditory hallucinations and paranoid delusions. Insight and judgment is poor. DIAGNOSIS: Major depressive disorder, mild, recurrent with psychotic features, rule out dementia with psychosis. PLAN: She will continue to be followed by Psychiatry throughout her hospital course. Twenty minutes of cognitive behavioral therapy was provided to help her identify automatic negative thoughts and help her convert the negative thoughts to more positive thoughts to reduce depression, anxiety, and suicidality. Chart was reviewed and discussed with staff. She was seen and assessed in her room. Rubio Mccord M.D. : Juju JOB#: [id number] CC:
[2018-10-28 20:00] VITALS: BP 108/65
--- NOTE | 2018-10-28 23:57 | Cardiology Progress Note ---
Assessment/Plan Assessment/Plan 1. Atrial fibrillation with rapid ventricular response, new onset. I would like to keep the patient on digoxin 0.5 mg x1 dose and two liters of normal saline as the patient is hypotensive. 2. A 2D echocardiography from 2018 had shown normal LV systolic function with LVEF of approximately 55%. 3. Hypotension, this could be due to occult sepsis. The patient's white count is within normal limits. I would like to provide 2 L of normal saline. Chest x-ray did not show any evidence of congestive heart failure and a 2D echocardiography in 2018 showed normal LV systolic function with LVEF of 55%. Subjective Subjective Sinus bradycardia at rate of 55. Objective Last 24 Hour Vital Signs Date Time Temp Pulse Resp B/P (MAP) Pulse Ox O2 Delivery O2 Flow Rate FiO2 10/28/18 21:00 Room Air 10/28/18 20:00 98.8 55 18 108/65 (79) 96 10/28/18 16:01 69 10/28/18 16:00 98.8 67 18 102/57 (72) 96 10/28/18 12:00 97.9 68 18 149/83 (105) 96 10/28/18 11:31 73 10/28/18 09:00 Room Air 10/28/18 08:04 74 10/28/18 08:00 98.8 67 18 102/57 (72) 96 10/28/18 04:00 54 10/28/18 04:00 98.6 73 20 125/73 (90) 97 10/28/18 00:00 61 10/28/18 00:00 98.2 69 20 120/72 (88) 100 Intake and Output 10/27/18 10/28/18 18:59 06:59 Intake Total 240 ml Output Total 400 ml 350 ml Balance -160 ml -350 ml Intake Oral 240 ml Output Urine Total 400 ml 350 ml # Bowel Movements 1 Laboratory Tests Test 10/28/18 07:13 White Blood Count 4.7 K/UL (4.8-10.8) L Red Blood Count 3.99 M/UL (4.20-5.40) L Hemoglobin 11.8 G/DL (12.0-16.0) L Hematocrit 34.8 % (37.0-47.0) L Mean Corpuscular Volume 87 FL (80-99) Mean Corpuscular Hemoglobin 29.6 PG (27.0-31.0) Mean Corpuscular Hemoglobin Concent 33.9 G/DL (32.0-36.0) Red Cell Distribution Width 13.1 % (11.6-14.8) Platelet Count 136 K/UL (150-450) L Mean Platelet Volume 8.5 FL (6.5-10.1) Neutrophils (%) (Auto) 69.1 % (45.0-75.0) Lymphocytes (%) (Auto) 22.9 % (20.0-45.0) Monocytes (%) (Auto) 6.0 % (1.0-10.0) Eosinophils (%) (Auto) 1.2 % (0.0-3.0) Basophils (%) (Auto) 0.7 % (0.0-2.0) Sodium Level 141 MMOL/L (136-145) Potassium Level 3.5 MMOL/L (3.5-5.1) Chloride Level 111 MMOL/L (98-107) H Carbon Dioxide Level 23 MMOL/L (21-32) Anion Gap 7 mmol/L (5-15) Blood Urea Nitrogen 9 mg/dL (7-18) Creatinine 0.4 MG/DL (0.55-1.30) L Estimat Glomerular Filtration Rate mL/min (>60) Glucose Level 114 MG/DL (74-106) H Calcium Level 9.6 MG/DL (8.5-10.1) Phosphorus Level 2.3 MG/DL (2.5-4.9) L Magnesium Level 1.9 MG/DL (1.8-2.4) Total Bilirubin 0.8 MG/DL (0.2-1.0) Aspartate Amino Transf (AST/SGOT) 17 U/L (15-37) Alanine Aminotransferase (ALT/SGPT) 9 U/L (12-78) L Alkaline Phosphatase 91 U/L (46-116) Total Protein 6.0 G/DL (6.4-8.2) L Albumin 2.8 G/DL (3.4-5.0) L Globulin 3.2 g/dL Albumin/Globulin Ratio 0.9 (1.0-2.7) L Objective HEENT: Atraumatic and normocephalic. Anicteric. Pupils are equal, round, and reactive to light and accommodation. Extraocular muscles intact. NECK: JVP is less than 5 cm. No carotid bruit. Carotid upstrokes 2+ bilaterally. CARDIOVASCULAR: Normal S1 and S2. Irregularly irregular rhythm. Tachycardiac. No murmurs, gallops, or rubs. LUNGS: Clear to auscultation bilaterally. ABDOMEN: Soft, nontender, and nondistended. No hepatosplenomegaly. Positive bowel sounds. EXTREMITIES: There are contracted extremities. No evidence of edema, clubbing, or cyanosis. Flex Winters MD Oct 28, 2018 23:57
[2018-10-29] VITALS: BP 147/95
[2018-10-29] MEDS: Levodopa/Carbidopa 25/100 tab ORAL SCH ×4 (00:40→17:46)
[2018-10-29 04:00] VITALS: BP 138/89
[2018-10-29] MEDS: Sodium Chloride 550 ML IV SCH ×2 (05:00→16:14)
[2018-10-29 08:00] VITALS: BP 149/100
[2018-10-29 08:25] LABS: EOSINOPHILS % (AUTO) 1.2 % (0.0-3.0); HEMATOCRIT 34.7 % (37.0-47.0); HEMOGLOBIN 11.4 G/DL (12.0-16.0); LYMPHOCYTES % (AUTO) 31.6 % (20.0-45.0); MEAN CORPUSCULAR VOLUME 89 FL (80-99); MONOCYTES % (AUTO) 7.4 % (1.0-10.0); NEUTROPHILS % (AUTO) 58.8 % (45.0-75.0); PLATELET COUNT 140 K/UL (150-450); RED CELL DISTRIBUTION WIDTH 13.1 % (11.6-14.8); WHITE BLOOD COUNT 4.2 K/UL (4.8-10.8)
[2018-10-29 08:53] LABS: ANION GAP 10 mmol/L (5-15); BLOOD UREA NITROGEN 4 mg/dL (7-18); CALCIUM 8.9 MG/DL (8.5-10.1); CARBON DIOXIDE 22 MMOL/L (21-32); CHLORIDE 112 MMOL/L (98-107); CREATININE 0.4 MG/DL (0.55-1.30); POTASSIUM 3.4 MMOL/L (3.5-5.1); SODIUM 144 MMOL/L (136-145)
[2018-10-29] MEDS: Amantadine 100mg cap ORAL SCH ×2 (09:13→17:46)
[2018-10-29] MEDS: Memantine 5 MG TAB ORAL SCH ×2 (09:13→17:46)
[2018-10-29] MEDS: Heparin 5000 units/ml inj SUBQ SCH ×2 (09:14→21:27)
[2018-10-29 12:00] VITALS: BP 165/91
--- NOTE | 2018-10-29 13:24 | Pulmonology Progress Note ---
Assessment/Plan Problems: (1) Sepsis (2) Paroxysmal A-fib (3) UTI (urinary tract infection) (4) Anemia (5) Elevated CEA (6) Hypertension (7) Parkinson disease (8) Dementia Assessment/Plan no new complains urine and blood cultures had afib last night, now sinus iv fluids iv abx anemia w/u swallow study check electrolytes continue bp meds PT note reviewed Subjective ROS Limited/Unobtainable: No Constitutional: Reports: no symptoms HEENT: Repors: no symptoms Respiratory: Reports: no symptoms Allergies: Coded Allergies: No Known Allergies (Unverified , 11/22/15) Objective Last 24 Hour Vital Signs Date Time Temp Pulse Resp B/P (MAP) Pulse Ox O2 Delivery O2 Flow Rate FiO2 10/29/18 08:33 Room Air 10/29/18 08:00 97.7 55 21 149/100 (116) 95 10/29/18 07:56 64 10/29/18 04:00 97.9 84 20 138/89 (105) 96 10/29/18 03:47 76 10/29/18 00:00 99.1 68 20 147/95 (112) 96 10/28/18 23:22 74 10/28/18 21:00 Room Air 10/28/18 20:00 98.8 55 18 108/65 (79) 96 10/28/18 19:33 60 10/28/18 16:01 69 10/28/18 16:00 98.8 67 18 102/57 (72) 96 Intake and Output 10/28/18 10/29/18 19:00 07:00 Intake Total 670 ml Output Total 550 ml 400 ml Balance 120 ml -400 ml Intake Oral 270 ml IV Total 400 ml Output Urine Total 550 ml 400 ml # Bowel Movements 2 1 General Appearance: WD/WN HEENT: normocephalic, atraumatic Respiratory/Chest: chest wall non-tender, lungs clear Cardiovascular: normal peripheral pulses, normal rate Abdomen: normal bowel sounds, soft, non tender Genitourinary: normal external genitalia 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 Laboratory Tests 10/29/18 07:35: White Blood Count 4.2L, Red Blood Count 3.90L, Hemoglobin 11.4L, Hematocrit 34.7L, Mean Corpuscular Volume 89, Mean Corpuscular Hemoglobin 29.2, Mean Corpuscular Hemoglobin Concent 32.8, Red Cell Distribution Width 13.1, Platelet Count 140L, Mean Platelet Volume 7.5, Neutrophils (%) (Auto) 58.8, Lymphocytes ( %) (Auto) 31.6, Monocytes (%) (Auto) 7.4, Eosinophils (%) (Auto) 1.2, Basophils (%) (Auto) 1.0, Sodium Level 144, Potassium Level 3.4L, Chloride Level 112H, Carbon Dioxide Level 22, Anion Gap 10, Blood Urea Nitrogen 4L, Creatinine 0.4L, Estimat Glomerular Filtration Rate , Glucose Level 91, Calcium Level 8.9 Current Medications Medications (Trade) Dose Ordered Sig/Alex Route PRN Reason Start Time Stop Time Status Last Admin Dose Admin Acetaminophen (Tylenol) 650 mg Q4H PRN ORAL fever 10/25/18 15:00 11/24/18 14:59 Albuterol/ Ipratropium (Albuterol/ Ipratropium) 3 ml Q4H PRN HHN Shortness of Breath 10/25/18 15:00 10/30/18 14:59 Amantadine HCl (Symmetrel) 100 mg TWICE A DAY ORAL 10/25/18 18:00 11/24/18 17:59 10/29/18 09:13 Carbidopa/Levodopa (Sinemet 25/100) 1 tab EVERY 6 HOURS ORAL 10/25/18 18:00 11/24/18 17:59 10/29/18 12:20 Clonidine HCl (Catapres Tab) 0.1 mg Q4H PRN ORAL sbp >160 10/27/18 12:45 11/26/18 12:44 Heparin Sodium (Porcine) (Heparin 5000 units/ml) 5,000 units EVERY 12 HOURS SUBQ 10/25/18 21:00 11/24/18 20:59 10/29/18 09:14 Memantine (Namenda) 5 mg BID ORAL 10/27/18 09:00 11/26/18 08:59 10/29/18 09:13 Metoprolol Tartrate (Lopressor) 5 mg Q5MIN X 3 IVP 10/27/18 18:30 11/26/18 18:29 Morphine Sulfate (Morphine Sulfate) 2 mg Q4H PRN IVP Moderate Pain (Pain Scale 4-6) 10/25/18 15:00 11/01/18 14:59 Ondansetron HCl (Zofran) 4 mg Q6H PRN IVP Nausea & Vomiting 10/25/18 15:00 11/24/18 14:59 Phenazopyridine HCl (Pyridium) 100 mg DAILYPRN PRN ORAL dysuria 10/25/18 15:00 11/24/18 14:59 Polyethylene Glycol (Miralax) 17 gm DAILYPRN PRN ORAL Constipation 10/25/18 15:00 11/24/18 14:59 Pramipexole (Mirapex) 0.25 mg THREE TIMES A DAY ORAL 10/25/18 18:00 11/24/18 17:59 10/29/18 12:20 Sodium Chloride 550 ml @ 50 mls/hr Q11H IV 10/26/18 00:00 11/25/18 00:00 10/29/18 05:00 Temazepam (Restoril) 15 mg HSPRN PRN ORAL Insomnia 10/25/18 15:00 11/01/18 14:59 Aleksandr Sibley MD Oct 29, 2018 13:24
--- NOTE | 2018-10-29 13:35 | General Progress Note ---
Assessment/Plan Problem List: (1) UTI (urinary tract infection) ICD Codes: N39.0 - Urinary tract infection, site not specified SNOMED: 10435792 (2) Anemia ICD Codes: D64.9 - Anemia, unspecified SNOMED: 163891021 (3) Parkinson disease ICD Codes: G20 - Parkinson's disease SNOMED: 07406370 (4) Hypertension ICD Codes: I10 - Essential (primary) hypertension SNOMED: 51241106 Qualifiers: Qualified Codes: I10 - Essential (primary) hypertension (5) Dementia ICD Codes: F03.90 - Unspecified dementia without behavioral disturbance SNOMED: 39664855 (6) Sepsis ICD Codes: A41.9 - Sepsis, unspecified organism SNOMED: 35997922 (7) Hypoalbuminemia ICD Codes: E88.09 - Other disorders of plasma-protein metabolism, not elsewhere classified SNOMED: 264993428 (8) Pancytopenia ICD Codes: D61.818 - Other pancytopenia SNOMED: 446578964 Assessment/Plan pt diet abx cbc bmp am brotman heme eval aru eval Subjective Constitutional: Reports: weakness Allergies: Coded Allergies: No Known Allergies (Unverified , 11/22/15) All Systems: reviewed and negative except above Subjective sleepy in bed calm Objective Last 24 Hour Vital Signs Date Time Temp Pulse Resp B/P (MAP) Pulse Ox O2 Delivery O2 Flow Rate FiO2 10/29/18 11:33 76 10/29/18 08:33 Room Air 10/29/18 08:00 97.7 55 21 149/100 (116) 95 10/29/18 07:56 64 10/29/18 04:00 97.9 84 20 138/89 (105) 96 10/29/18 03:47 76 10/29/18 00:00 99.1 68 20 147/95 (112) 96 10/28/18 23:22 74 10/28/18 21:00 Room Air 10/28/18 20:00 98.8 55 18 108/65 (79) 96 10/28/18 19:33 60 10/28/18 16:01 69 10/28/18 16:00 98.8 67 18 102/57 (72) 96 Intake and Output 10/28/18 10/29/18 19:00 07:00 Intake Total 670 ml Output Total 550 ml 400 ml Balance 120 ml -400 ml Intake Oral 270 ml IV Total 400 ml Output Urine Total 550 ml 400 ml # Bowel Movements 2 1 Laboratory Tests 10/29/18 07:35: White Blood Count 4.2L, Red Blood Count 3.90L, Hemoglobin 11.4L, Hematocrit 34.7L, Mean Corpuscular Volume 89, Mean Corpuscular Hemoglobin 29.2, Mean Corpuscular Hemoglobin Concent 32.8, Red Cell Distribution Width 13.1, Platelet Count 140L, Mean Platelet Volume 7.5, Neutrophils (%) (Auto) 58.8, Lymphocytes ( %) (Auto) 31.6, Monocytes (%) (Auto) 7.4, Eosinophils (%) (Auto) 1.2, Basophils (%) (Auto) 1.0, Sodium Level 144, Potassium Level 3.4L, Chloride Level 112H, Carbon Dioxide Level 22, Anion Gap 10, Blood Urea Nitrogen 4L, Creatinine 0.4L, Estimat Glomerular Filtration Rate , Glucose Level 91, Calcium Level 8.9 Height (Feet): 4 Height (Inches): 11.00 Weight (Pounds): 120 General Appearance: lethargic EENT: normal ENT inspection Neck: normal alignment Cardiovascular: normal peripheral pulses, normal rate, regular rhythm Respiratory/Chest: chest wall non-tender, lungs clear, normal breath sounds Abdomen: normal bowel sounds, non tender, soft Extremities: normal inspection Edema: no edema noted Arm (L), no edema noted Arm (R), no edema noted Leg (L), no edema noted Leg (R), no edema noted Pedal (L), no edema noted Pedal (R), no edema noted Generalized Neurologic: motor weakness Skin: normal pigmentation, warm/dry Tony Dupree DO Oct 29, 2018 13:35
--- NOTE | 2018-10-29 14:32 | Infectious Diseases Prog Note ---
Assessment/Plan Assessment/Plan 73 yo female with PMHx of parkinonism and HTN who was sent tot ED from her long-term after a fall. UTI Patient with dehydration and fall with AMS - This could be a manifestation of sepsis from occult UTI Patient already had 2 days of cefepime S/P Fall Parkinsons HTN Dysphagia PLAN - Monitor off abx - 10/29/18 SPCeftriaxone #2 short course of abx for UTI. - 10/26/18 SP Cefepime #2 and Vancomcyin #2 - f/u Cultures - Monitor CBC and Temps - OK to D/C off Abx from an ID perspective - VRE RECTUM IS A COLONIZER We will continue to follow the patient during this hospitalization. Subjective Allergies: Coded Allergies: No Known Allergies (Unverified , 11/22/15) Subjective Afebrile No leukocytosis Objective Vital Signs Last 24 Hour Vital Signs Date Time Temp Pulse Resp B/P (MAP) Pulse Ox O2 Delivery O2 Flow Rate FiO2 10/29/18 11:33 76 10/29/18 08:33 Room Air 10/29/18 08:00 97.7 55 21 149/100 (116) 95 10/29/18 07:56 64 10/29/18 04:00 97.9 84 20 138/89 (105) 96 10/29/18 03:47 76 10/29/18 00:00 99.1 68 20 147/95 (112) 96 10/28/18 23:22 74 10/28/18 21:00 Room Air 10/28/18 20:00 98.8 55 18 108/65 (79) 96 10/28/18 19:33 60 10/28/18 16:01 69 10/28/18 16:00 98.8 67 18 102/57 (72) 96 Height (Feet): 4 Height (Inches): 11.00 Weight (Pounds): 120 Objective Gen: NAD HEENT: NCAT, MMM, EOMI LUNGS: CTAB, No W CARDS: RRR, S1, S2 ABD: Soft, NT, ND, + BS Ext: C/C/E, Pulses 2+ B/L (DP, Rad): Contractures Laboratory Tests Test 10/29/18 07:35 White Blood Count 4.2 K/UL (4.8-10.8) L Red Blood Count 3.90 M/UL (4.20-5.40) L Hemoglobin 11.4 G/DL (12.0-16.0) L Hematocrit 34.7 % (37.0-47.0) L Mean Corpuscular Volume 89 FL (80-99) Mean Corpuscular Hemoglobin 29.2 PG (27.0-31.0) Mean Corpuscular Hemoglobin Concent 32.8 G/DL (32.0-36.0) Red Cell Distribution Width 13.1 % (11.6-14.8) Platelet Count 140 K/UL (150-450) L Mean Platelet Volume 7.5 FL (6.5-10.1) Neutrophils (%) (Auto) 58.8 % (45.0-75.0) Lymphocytes (%) (Auto) 31.6 % (20.0-45.0) Monocytes (%) (Auto) 7.4 % (1.0-10.0) Eosinophils (%) (Auto) 1.2 % (0.0-3.0) Basophils (%) (Auto) 1.0 % (0.0-2.0) Sodium Level 144 MMOL/L (136-145) Potassium Level 3.4 MMOL/L (3.5-5.1) L Chloride Level 112 MMOL/L (98-107) H Carbon Dioxide Level 22 MMOL/L (21-32) Anion Gap 10 mmol/L (5-15) Blood Urea Nitrogen 4 mg/dL (7-18) L Creatinine 0.4 MG/DL (0.55-1.30) L Estimat Glomerular Filtration Rate mL/min (>60) Glucose Level 91 MG/DL (74-106) Calcium Level 8.9 MG/DL (8.5-10.1) Current Medications Medications (Trade) Dose Ordered Sig/Alex Route PRN Reason Start Time Stop Time Status Last Admin Dose Admin Acetaminophen (Tylenol) 650 mg Q4H PRN ORAL fever 10/25/18 15:00 11/24/18 14:59 Albuterol/ Ipratropium (Albuterol/ Ipratropium) 3 ml Q4H PRN HHN Shortness of Breath 10/25/18 15:00 10/30/18 14:59 Amantadine HCl (Symmetrel) 100 mg TWICE A DAY ORAL 10/25/18 18:00 11/24/18 17:59 10/29/18 09:13 Carbidopa/Levodopa (Sinemet 25/100) 1 tab EVERY 6 HOURS ORAL 10/25/18 18:00 11/24/18 17:59 10/29/18 12:20 Clonidine HCl (Catapres Tab) 0.1 mg Q4H PRN ORAL sbp >160 10/27/18 12:45 11/26/18 12:44 Heparin Sodium (Porcine) (Heparin 5000 units/ml) 5,000 units EVERY 12 HOURS SUBQ 10/25/18 21:00 11/24/18 20:59 10/29/18 09:14 Memantine (Namenda) 5 mg BID ORAL 10/27/18 09:00 11/26/18 08:59 10/29/18 09:13 Metoprolol Tartrate (Lopressor) 5 mg Q5MIN X 3 IVP 10/27/18 18:30 11/26/18 18:29 Morphine Sulfate (Morphine Sulfate) 2 mg Q4H PRN IVP Moderate Pain (Pain Scale 4-6) 10/25/18 15:00 11/01/18 14:59 Ondansetron HCl (Zofran) 4 mg Q6H PRN IVP Nausea & Vomiting 10/25/18 15:00 11/24/18 14:59 Phenazopyridine HCl (Pyridium) 100 mg DAILYPRN PRN ORAL dysuria 10/25/18 15:00 11/24/18 14:59 Polyethylene Glycol (Miralax) 17 gm DAILYPRN PRN ORAL Constipation 10/25/18 15:00 11/24/18 14:59 Pramipexole (Mirapex) 0.25 mg THREE TIMES A DAY ORAL 10/25/18 18:00 11/24/18 17:59 10/29/18 12:20 Sodium Chloride 550 ml @ 50 mls/hr Q11H IV 10/26/18 00:00 11/25/18 00:00 10/29/18 05:00 Temazepam (Restoril) 15 mg HSPRN PRN ORAL Insomnia 10/25/18 15:00 11/01/18 14:59 Jasvir Mar MD Oct 29, 2018 14:32
[2018-10-29 16:00] VITALS: BP 145/84
--- NOTE | 2018-10-29 18:30 | Progress Note ---
DATE: 10/29/2018 SUBJECTIVE: The patient is a 73-year-old female patient with dehydration. She has some confusion, some disorganized thought process but denies any suicidal or homicidal ideations, but due to altered mental status that is why attending has requested daily psychiatric consultation. MENTAL STATUS EXAMINATION: A 73-year-old female. Appearance is disheveled. Attitude, irritable and agitated. Affect, guarded and restricted. Intellect poor. Mood, depressed and anxious. Motor activity, psychomotor agitation. Attention span is poor. Orientation x2. Speech is pressured. Thought process, disorganized and illogical. Thought content, auditory hallucinations and paranoid delusions. Insight and judgment is poor. DIAGNOSIS: Paranoid schizophrenia with acute exacerbation. PLAN: Plan for this patient is treat with a medication the patient stabilize the mood. Provide her with 20 minutes of cognitive behavioral therapy was provided to help her identify automatic negative thoughts and help her convert the negative thoughts to more positive thoughts to reduce depression, anxiety, and suicidality. Chart was reviewed and discussed with staff. She was seen and assessed in her room. Rubio Mccord M.D. DR: Ashok JOB#: [id number] CC:
[2018-10-29 20:00] VITALS: BP_SYST 136; BP_SYST 155; BP_DIAS 87; BP_DIAS 88
--- NOTE | 2018-10-29 22:47 | Cardiology Progress Note ---
Assessment/Plan Assessment/Plan 1. Atrial fibrillation with rapid ventricular response, resolved currently in SR , 2D echocardiography from 2018 had shown normal LV systolic function with LVEF of approximately 55%. 2. Hypotension, resolved, probably due to occult sepsis. Subjective Subjective Sinus rhythm at rate of 73. Objective Last 24 Hour Vital Signs Date Time Temp Pulse Resp B/P (MAP) Pulse Ox O2 Delivery O2 Flow Rate FiO2 10/29/18 16:29 83 10/29/18 16:00 98.1 73 22 145/84 (104) 98 10/29/18 12:00 97.9 73 20 165/91 (115) 98 10/29/18 11:33 76 10/29/18 08:33 Room Air 10/29/18 08:00 97.7 55 21 149/100 (116) 95 10/29/18 07:56 64 10/29/18 04:00 97.9 84 20 138/89 (105) 96 10/29/18 03:47 76 10/29/18 00:00 99.1 68 20 147/95 (112) 96 10/28/18 23:22 74 Intake and Output 10/28/18 10/29/18 19:00 07:00 Intake Total 670 ml Output Total 550 ml 400 ml Balance 120 ml -400 ml Intake Oral 270 ml IV Total 400 ml Output Urine Total 550 ml 400 ml # Bowel Movements 2 1 Laboratory Tests Test 10/29/18 07:35 White Blood Count 4.2 K/UL (4.8-10.8) L Red Blood Count 3.90 M/UL (4.20-5.40) L Hemoglobin 11.4 G/DL (12.0-16.0) L Hematocrit 34.7 % (37.0-47.0) L Mean Corpuscular Volume 89 FL (80-99) Mean Corpuscular Hemoglobin 29.2 PG (27.0-31.0) Mean Corpuscular Hemoglobin Concent 32.8 G/DL (32.0-36.0) Red Cell Distribution Width 13.1 % (11.6-14.8) Platelet Count 140 K/UL (150-450) L Mean Platelet Volume 7.5 FL (6.5-10.1) Neutrophils (%) (Auto) 58.8 % (45.0-75.0) Lymphocytes (%) (Auto) 31.6 % (20.0-45.0) Monocytes (%) (Auto) 7.4 % (1.0-10.0) Eosinophils (%) (Auto) 1.2 % (0.0-3.0) Basophils (%) (Auto) 1.0 % (0.0-2.0) Sodium Level 144 MMOL/L (136-145) Potassium Level 3.4 MMOL/L (3.5-5.1) L Chloride Level 112 MMOL/L (98-107) H Carbon Dioxide Level 22 MMOL/L (21-32) Anion Gap 10 mmol/L (5-15) Blood Urea Nitrogen 4 mg/dL (7-18) L Creatinine 0.4 MG/DL (0.55-1.30) L Estimat Glomerular Filtration Rate mL/min (>60) Glucose Level 91 MG/DL (74-106) Calcium Level 8.9 MG/DL (8.5-10.1) Objective HEENT: Atraumatic and normocephalic. Anicteric. Pupils are equal, round, and reactive to light and accommodation. Extraocular muscles intact. NECK: JVP is less than 5 cm. No carotid bruit. Carotid upstrokes 2+ bilaterally. CARDIOVASCULAR: Normal S1 and S2. Irregularly irregular rhythm. No murmurs, gallops, or rubs. LUNGS: Clear to auscultation bilaterally. ABDOMEN: Soft, nontender, and nondistended. No hepatosplenomegaly. Positive bowel sounds. EXTREMITIES: There are contracted extremities. No evidence of edema. clubbing , or cyanosis. Flex Winters MD Oct 29, 2018 22:47
[2018-10-30] VITALS: BP_SYST 132; BP_SYST 136; BP_DIAS 83; BP_DIAS 87
[2018-10-30] MEDS: Levodopa/Carbidopa 25/100 tab ORAL SCH ×4 (00:18→18:01)
[2018-10-30] MEDS: Sodium Chloride 550 ML IV SCH ×3 (03:00→16:18)
[2018-10-30 04:00] VITALS: BP 132/83
[2018-10-30 07:05] LABS: BASOPHILS % (AUTO) 0.8 % (0.0-2.0); EOSINOPHILS % (AUTO) 2.3 % (0.0-3.0); HEMATOCRIT 36.4 % (37.0-47.0); HEMOGLOBIN 12.1 G/DL (12.0-16.0); MEAN CORPUSCULAR VOLUME 88 FL (80-99); MONOCYTES % (AUTO) 6.5 % (1.0-10.0); NEUTROPHILS % (AUTO) 57.4 % (45.0-75.0); PLATELET COUNT 151 K/UL (150-450); RED BLOOD COUNT 4.13 M/UL (4.20-5.40); WHITE BLOOD COUNT 4.9 K/UL (4.8-10.8)
[2018-10-30 07:24] LABS: ANION GAP 10 mmol/L (5-15); BLOOD UREA NITROGEN 4 mg/dL (7-18); CALCIUM 9.1 MG/DL (8.5-10.1); CARBON DIOXIDE 24 MMOL/L (21-32); CHLORIDE 109 MMOL/L (98-107); CREATININE 0.3 MG/DL (0.55-1.30); POTASSIUM 3.8 MMOL/L (3.5-5.1); SODIUM 143 MMOL/L (136-145)
--- NOTE | 2018-10-30 07:53 | Infectious Diseases Prog Note ---
Assessment/Plan Assessment/Plan 73 yo female with PMHx of parkinonism and HTN who was sent tot ED from her assisted after a fall. UTI Patient with dehydration and fall with AMS - This could be a manifestation of sepsis from occult UTI Patient already had 2 days of cefepime S/P Fall Parkinsons HTN Dysphagia PLAN - Continue to monitor off abx - 10/29/18 SPCeftriaxone #2 short course of abx for UTI. - 10/26/18 SP Cefepime #2 and Vancomcyin #2 - f/u Cultures - Monitor CBC and Temps - OK to D/C off Abx from an ID perspective - VRE RECTUM IS A COLONIZER We will continue to follow the patient during this hospitalization. Subjective Allergies: Coded Allergies: No Known Allergies (Unverified , 11/22/15) Subjective MARIO Afebrile No leukocytosis Objective Vital Signs Last 24 Hour Vital Signs Date Time Temp Pulse Resp B/P (MAP) Pulse Ox O2 Delivery O2 Flow Rate FiO2 10/30/18 04:00 97.9 73 17 132/83 (99) 94 10/30/18 04:00 82 10/30/18 00:00 97.7 67 18 136/87 (103) 94 10/30/18 00:00 67 10/29/18 21:00 Room Air 10/29/18 20:00 69 10/29/18 20:00 98.0 80 17 155/88 (110) 94 10/29/18 16:29 83 10/29/18 16:00 98.1 73 22 145/84 (104) 98 10/29/18 12:00 97.9 73 20 165/91 (115) 98 10/29/18 11:33 76 10/29/18 08:33 Room Air 10/29/18 08:00 97.7 55 21 149/100 (116) 95 10/29/18 07:56 64 Height (Feet): 4 Height (Inches): 11.00 Weight (Pounds): 120 Objective Gen: NAD, Laying in bed HEENT: NCAT, MMM, EOMI LUNGS: CTAB, No W CARDS: RRR, S1, S2 ABD: Soft, NT, ND, + BS Ext: C/C/E, Pulses 2+ B/L (DP, Rad): Contractures Laboratory Tests Test 10/30/18 06:10 White Blood Count 4.9 K/UL (4.8-10.8) Red Blood Count 4.13 M/UL (4.20-5.40) L Hemoglobin 12.1 G/DL (12.0-16.0) Hematocrit 36.4 % (37.0-47.0) L Mean Corpuscular Volume 88 FL (80-99) Mean Corpuscular Hemoglobin 29.3 PG (27.0-31.0) Mean Corpuscular Hemoglobin Concent 33.2 G/DL (32.0-36.0) Red Cell Distribution Width 13.0 % (11.6-14.8) Platelet Count 151 K/UL (150-450) Mean Platelet Volume 8.1 FL (6.5-10.1) Neutrophils (%) (Auto) 57.4 % (45.0-75.0) Lymphocytes (%) (Auto) 33.0 % (20.0-45.0) Monocytes (%) (Auto) 6.5 % (1.0-10.0) Eosinophils (%) (Auto) 2.3 % (0.0-3.0) Basophils (%) (Auto) 0.8 % (0.0-2.0) Sodium Level 143 MMOL/L (136-145) Potassium Level 3.8 MMOL/L (3.5-5.1) Chloride Level 109 MMOL/L (98-107) H Carbon Dioxide Level 24 MMOL/L (21-32) Anion Gap 10 mmol/L (5-15) Blood Urea Nitrogen 4 mg/dL (7-18) L Creatinine 0.3 MG/DL (0.55-1.30) L Estimat Glomerular Filtration Rate mL/min (>60) Glucose Level 94 MG/DL (74-106) Calcium Level 9.1 MG/DL (8.5-10.1) Current Medications Medications (Trade) Dose Ordered Sig/Alex Route PRN Reason Start Time Stop Time Status Last Admin Dose Admin Acetaminophen (Tylenol) 650 mg Q4H PRN ORAL fever 10/25/18 15:00 11/24/18 14:59 Albuterol/ Ipratropium (Albuterol/ Ipratropium) 3 ml Q4H PRN HHN Shortness of Breath 10/25/18 15:00 10/30/18 14:59 Amantadine HCl (Symmetrel) 100 mg TWICE A DAY ORAL 10/25/18 18:00 11/24/18 17:59 10/29/18 17:46 Carbidopa/Levodopa (Sinemet 25/100) 1 tab EVERY 6 HOURS ORAL 10/25/18 18:00 11/24/18 17:59 10/30/18 06:11 Clonidine HCl (Catapres Tab) 0.1 mg Q4H PRN ORAL sbp >160 10/27/18 12:45 11/26/18 12:44 Heparin Sodium (Porcine) (Heparin 5000 units/ml) 5,000 units EVERY 12 HOURS SUBQ 10/25/18 21:00 11/24/18 20:59 10/29/18 21:27 Memantine (Namenda) 5 mg BID ORAL 10/27/18 09:00 11/26/18 08:59 10/29/18 17:46 Metoprolol Tartrate (Lopressor) 5 mg Q5MIN X 3 IVP 10/27/18 18:30 11/26/18 18:29 Morphine Sulfate (Morphine Sulfate) 2 mg Q4H PRN IVP Moderate Pain (Pain Scale 4-6) 10/25/18 15:00 11/01/18 14:59 Ondansetron HCl (Zofran) 4 mg Q6H PRN IVP Nausea & Vomiting 10/25/18 15:00 11/24/18 14:59 Phenazopyridine HCl (Pyridium) 100 mg DAILYPRN PRN ORAL dysuria 10/25/18 15:00 11/24/18 14:59 Polyethylene Glycol (Miralax) 17 gm DAILYPRN PRN ORAL Constipation 10/25/18 15:00 11/24/18 14:59 Pramipexole (Mirapex) 0.25 mg THREE TIMES A DAY ORAL 10/25/18 18:00 11/24/18 17:59 10/29/18 17:46 Sodium Chloride 550 ml @ 50 mls/hr Q11H IV 10/26/18 00:00 11/25/18 00:00 10/30/18 06:12 Temazepam (Restoril) 15 mg HSPRN PRN ORAL Insomnia 10/25/18 15:00 11/01/18 14:59 Jasvir Mar MD Oct 30, 2018 07:53
[2018-10-30 08:00] VITALS: BP 150/80
[2018-10-30] MEDS: Amantadine 100mg cap ORAL SCH ×2 (09:16→18:01)
[2018-10-30] MEDS: Memantine 5 MG TAB ORAL SCH ×2 (09:16→18:01)
[2018-10-30] MEDS: Heparin 5000 units/ml inj SUBQ SCH ×2 (09:17→20:22)
[2018-10-30 12:00] VITALS: BP 159/106
--- NOTE | 2018-10-30 12:22 | General Progress Note ---
Assessment/Plan Problem List: (1) UTI (urinary tract infection) ICD Codes: N39.0 - Urinary tract infection, site not specified SNOMED: 15116520 (2) Anemia ICD Codes: D64.9 - Anemia, unspecified SNOMED: 789689284 (3) Parkinson disease ICD Codes: G20 - Parkinson's disease SNOMED: 96379081 (4) Hypertension ICD Codes: I10 - Essential (primary) hypertension SNOMED: 17164141 Qualifiers: Qualified Codes: I10 - Essential (primary) hypertension (5) Dementia ICD Codes: F03.90 - Unspecified dementia without behavioral disturbance SNOMED: 87082562 (6) Sepsis ICD Codes: A41.9 - Sepsis, unspecified organism SNOMED: 17684900 (7) Hypoalbuminemia ICD Codes: E88.09 - Other disorders of plasma-protein metabolism, not elsewhere classified SNOMED: 370547602 (8) Pancytopenia ICD Codes: D61.818 - Other pancytopenia SNOMED: 713278568 Status: stable, progressing Assessment/Plan pt diet abx cbc bmp am heme eval dc plan Subjective Constitutional: Reports: weakness Allergies: Coded Allergies: No Known Allergies (Unverified , 11/22/15) All Systems: reviewed and negative except above Subjective sleepy in bed calm Objective Last 24 Hour Vital Signs Date Time Temp Pulse Resp B/P (MAP) Pulse Ox O2 Delivery O2 Flow Rate FiO2 10/30/18 09:00 Room Air 10/30/18 08:00 98.1 75 20 150/80 (103) 100 10/30/18 08:00 63 10/30/18 04:00 97.9 73 17 132/83 (99) 94 10/30/18 04:00 82 10/30/18 00:00 97.7 67 18 136/87 (103) 94 10/30/18 00:00 67 10/29/18 21:00 Room Air 10/29/18 20:00 69 10/29/18 20:00 98.0 80 17 155/88 (110) 94 10/29/18 16:29 83 10/29/18 16:00 98.1 73 22 145/84 (104) 98 Intake and Output 10/29/18 10/30/18 19:00 07:00 Intake Total 40 ml Output Total 1200 ml Balance -1200 ml 40 ml IV Total 40 ml Output Urine Total 1200 ml # Voids 4 # Bowel Movements 1 1 Laboratory Tests 10/30/18 06:10: White Blood Count 4.9, Red Blood Count 4.13L, Hemoglobin 12.1, Hematocrit 36.4L , Mean Corpuscular Volume 88, Mean Corpuscular Hemoglobin 29.3, Mean Corpuscular Hemoglobin Concent 33.2, Red Cell Distribution Width 13.0, Platelet Count 151, Mean Platelet Volume 8.1, Neutrophils (%) (Auto) 57.4, Lymphocytes (% ) (Auto) 33.0, Monocytes (%) (Auto) 6.5, Eosinophils (%) (Auto) 2.3, Basophils ( %) (Auto) 0.8, Sodium Level 143, Potassium Level 3.8, Chloride Level 109H, Carbon Dioxide Level 24, Anion Gap 10, Blood Urea Nitrogen 4L, Creatinine 0.3L, Estimat Glomerular Filtration Rate , Glucose Level 94, Calcium Level 9.1 Height (Feet): 4 Height (Inches): 11.00 Weight (Pounds): 120 General Appearance: lethargic EENT: normal ENT inspection Neck: normal alignment Cardiovascular: normal peripheral pulses, normal rate, regular rhythm Respiratory/Chest: chest wall non-tender, lungs clear, normal breath sounds Abdomen: normal bowel sounds, non tender, soft Extremities: normal inspection Edema: no edema noted Arm (L), no edema noted Arm (R), no edema noted Leg (L), no edema noted Leg (R), no edema noted Pedal (L), no edema noted Pedal (R), no edema noted Generalized Neurologic: motor weakness Skin: normal pigmentation, warm/dry Tony Dupree DO Oct 30, 2018 12:22
--- NOTE | 2018-10-30 13:42 | Pulmonology Progress Note ---
Assessment/Plan Problems: (1) Sepsis (2) Paroxysmal A-fib (3) UTI (urinary tract infection) (4) Anemia (5) Elevated CEA (6) Hypertension (7) Parkinson disease (8) Dementia Assessment/Plan doing better no new complains urine and blood cultures iv fluids iv abx anemia w/u swallow study check electrolytes continue bp meds PT note reviewed ok to dc Subjective ROS Limited/Unobtainable: No Constitutional: Reports: no symptoms HEENT: Repors: no symptoms Respiratory: Reports: no symptoms Allergies: Coded Allergies: No Known Allergies (Unverified , 11/22/15) Objective Last 24 Hour Vital Signs Date Time Temp Pulse Resp B/P (MAP) Pulse Ox O2 Delivery O2 Flow Rate FiO2 10/30/18 12:00 98.4 75 20 159/106 (123) 96 10/30/18 12:00 88 10/30/18 09:00 Room Air 10/30/18 08:00 98.1 75 20 150/80 (103) 100 10/30/18 08:00 63 10/30/18 04:00 97.9 73 17 132/83 (99) 94 10/30/18 04:00 82 10/30/18 00:00 97.7 67 18 136/87 (103) 94 10/30/18 00:00 67 10/29/18 21:00 Room Air 10/29/18 20:00 69 10/29/18 20:00 98.0 80 17 155/88 (110) 94 10/29/18 16:29 83 10/29/18 16:00 98.1 73 22 145/84 (104) 98 Intake and Output 10/29/18 10/30/18 19:00 07:00 Intake Total 40 ml Output Total 1200 ml Balance -1200 ml 40 ml IV Total 40 ml Output Urine Total 1200 ml # Voids 4 # Bowel Movements 1 1 General Appearance: WD/WN HEENT: normocephalic Respiratory/Chest: chest wall non-tender, lungs clear Cardiovascular: normal peripheral pulses, normal rate Abdomen: normal bowel sounds, no organomegaly Genitourinary: normal external genitalia Skin: no rash Laboratory Tests 10/30/18 06:10: White Blood Count 4.9, Red Blood Count 4.13L, Hemoglobin 12.1, Hematocrit 36.4L , Mean Corpuscular Volume 88, Mean Corpuscular Hemoglobin 29.3, Mean Corpuscular Hemoglobin Concent 33.2, Red Cell Distribution Width 13.0, Platelet Count 151, Mean Platelet Volume 8.1, Neutrophils (%) (Auto) 57.4, Lymphocytes (% ) (Auto) 33.0, Monocytes (%) (Auto) 6.5, Eosinophils (%) (Auto) 2.3, Basophils ( %) (Auto) 0.8, Sodium Level 143, Potassium Level 3.8, Chloride Level 109H, Carbon Dioxide Level 24, Anion Gap 10, Blood Urea Nitrogen 4L, Creatinine 0.3L, Estimat Glomerular Filtration Rate , Glucose Level 94, Calcium Level 9.1, Hepatitis A IgM Antibody [Pending], Hepatitis B Surface Antigen [Pending], Hepatitis B Core IgM Antibody [Pending], Hepatitis C Antibody [Pending], HIV (1& 2) Antibody Rapid Negative Current Medications Medications (Trade) Dose Ordered Sig/Alex Route PRN Reason Start Time Stop Time Status Last Admin Dose Admin Acetaminophen (Tylenol) 650 mg Q4H PRN ORAL fever 10/25/18 15:00 11/24/18 14:59 Albuterol/ Ipratropium (Albuterol/ Ipratropium) 3 ml Q4H PRN HHN Shortness of Breath 10/25/18 15:00 10/30/18 14:59 Amantadine HCl (Symmetrel) 100 mg TWICE A DAY ORAL 10/25/18 18:00 11/24/18 17:59 10/30/18 09:16 Carbidopa/Levodopa (Sinemet 25/100) 1 tab EVERY 6 HOURS ORAL 10/25/18 18:00 11/24/18 17:59 10/30/18 11:52 Clonidine HCl (Catapres Tab) 0.1 mg Q4H PRN ORAL sbp >160 10/27/18 12:45 11/26/18 12:44 Heparin Sodium (Porcine) (Heparin 5000 units/ml) 5,000 units EVERY 12 HOURS SUBQ 10/25/18 21:00 11/24/18 20:59 10/30/18 09:17 Memantine (Namenda) 5 mg BID ORAL 10/27/18 09:00 11/26/18 08:59 10/30/18 09:16 Metoprolol Tartrate (Lopressor) 5 mg Q5MIN X 3 IVP 10/27/18 18:30 11/26/18 18:29 Morphine Sulfate (Morphine Sulfate) 2 mg Q4H PRN IVP Moderate Pain (Pain Scale 4-6) 10/25/18 15:00 11/01/18 14:59 Ondansetron HCl (Zofran) 4 mg Q6H PRN IVP Nausea & Vomiting 10/25/18 15:00 11/24/18 14:59 Phenazopyridine HCl (Pyridium) 100 mg DAILYPRN PRN ORAL dysuria 10/25/18 15:00 11/24/18 14:59 Polyethylene Glycol (Miralax) 17 gm DAILYPRN PRN ORAL Constipation 10/25/18 15:00 11/24/18 14:59 Pramipexole (Mirapex) 0.25 mg THREE TIMES A DAY ORAL 10/25/18 18:00 11/24/18 17:59 10/30/18 12:39 Sodium Chloride 550 ml @ 50 mls/hr Q11H IV 10/26/18 00:00 11/25/18 00:00 10/30/18 06:12 Temazepam (Restoril) 15 mg HSPRN PRN ORAL Insomnia 10/25/18 15:00 11/01/18 14:59 Aleksandr Sibley MD Oct 30, 2018 13:42
[2018-10-30 16:00] VITALS: BP 151/86
--- NOTE | 2018-10-30 16:22 | Cardiology Progress Note ---
Assessment/Plan Assessment/Plan 1. Atrial fibrillation with rapid ventricular response, converted to SR, 2D echocardiography from 2018 had shown normal LV systolic function with LVEF of approximately 55%. 2. Hypotension, resolved, probably due to occult sepsis. Subjective Subjective Sinus rhythm at rate of 75. Objective Last 24 Hour Vital Signs Date Time Temp Pulse Resp B/P (MAP) Pulse Ox O2 Delivery O2 Flow Rate FiO2 10/30/18 12:00 98.4 75 20 159/106 (123) 96 10/30/18 12:00 88 10/30/18 09:00 Room Air 10/30/18 08:00 98.1 75 20 150/80 (103) 100 10/30/18 08:00 63 10/30/18 04:00 97.9 73 17 132/83 (99) 94 10/30/18 04:00 82 10/30/18 00:00 97.7 67 18 136/87 (103) 94 10/30/18 00:00 67 10/29/18 21:00 Room Air 10/29/18 20:00 69 10/29/18 20:00 98.0 80 17 155/88 (110) 94 10/29/18 16:29 83 Intake and Output 10/29/18 10/30/18 19:00 07:00 Intake Total 40 ml Output Total 1200 ml Balance -1200 ml 40 ml IV Total 40 ml Output Urine Total 1200 ml # Voids 4 # Bowel Movements 1 1 Laboratory Tests Test 10/30/18 06:10 White Blood Count 4.9 K/UL (4.8-10.8) Red Blood Count 4.13 M/UL (4.20-5.40) L Hemoglobin 12.1 G/DL (12.0-16.0) Hematocrit 36.4 % (37.0-47.0) L Mean Corpuscular Volume 88 FL (80-99) Mean Corpuscular Hemoglobin 29.3 PG (27.0-31.0) Mean Corpuscular Hemoglobin Concent 33.2 G/DL (32.0-36.0) Red Cell Distribution Width 13.0 % (11.6-14.8) Platelet Count 151 K/UL (150-450) Mean Platelet Volume 8.1 FL (6.5-10.1) Neutrophils (%) (Auto) 57.4 % (45.0-75.0) Lymphocytes (%) (Auto) 33.0 % (20.0-45.0) Monocytes (%) (Auto) 6.5 % (1.0-10.0) Eosinophils (%) (Auto) 2.3 % (0.0-3.0) Basophils (%) (Auto) 0.8 % (0.0-2.0) Sodium Level 143 MMOL/L (136-145) Potassium Level 3.8 MMOL/L (3.5-5.1) Chloride Level 109 MMOL/L (98-107) H Carbon Dioxide Level 24 MMOL/L (21-32) Anion Gap 10 mmol/L (5-15) Blood Urea Nitrogen 4 mg/dL (7-18) L Creatinine 0.3 MG/DL (0.55-1.30) L Estimat Glomerular Filtration Rate mL/min (>60) Glucose Level 94 MG/DL (74-106) Calcium Level 9.1 MG/DL (8.5-10.1) Hepatitis A IgM Antibody Pending Hepatitis B Surface Antigen Pending Hepatitis B Core IgM Antibody Pending Hepatitis C Antibody Pending HIV (1&2) Antibody Rapid Negative (NEGATIVE) Objective HEENT: Atraumatic and normocephalic. Anicteric. Pupils are equal, round, and reactive to light and accommodation. Extraocular muscles intact. NECK: JVP is less than 5 cm. No carotid bruit. Carotid upstrokes 2+ bilaterally. CARDIOVASCULAR: Normal S1 and S2. Irregularly irregular rhythm. No murmurs, gallops, or rubs. LUNGS: Clear to auscultation bilaterally. ABDOMEN: Soft, nontender, and nondistended. No hepatosplenomegaly. Positive bowel sounds. EXTREMITIES: There are contracted extremities. No evidence of edema. clubbing , or cyanosis. Flex Winters MD Oct 30, 2018 16:22
--- NOTE | 2018-10-30 18:00 | Progress Note ---
DATE: 10/30/2018 SUBJECTIVE: This is a 73-year-old female patient with dehydration. She is confused, disorganized . MENTAL STATUS EXAMINATION: A 73-year-old female. Appearance is disheveled. Attitude, irritable and agitated. Affect, guarded and restricted. Intellect poor. Mood, depressed and anxious. Motor activity, psychomotor agitation. Attention span is poor. Orientation x2. Speech is low volume and slurred. Thought process, disorganized and illogical. Thought content, auditory hallucinations and paranoid. Insight and judgment is poor. DIAGNOSIS: Major depressive disorder, mild, recurrent with psychotic features. PLAN: I am going to continue treatment with medications to stabilize her mood. Provided with 20 minutes of cognitive behavioral therapy to help her identify automatic negative thoughts and help her convert the negative thoughts to more positive thoughts to reduce depression, anxiety, and suicidality. Chart was reviewed and discussed with staff. She was seen and assessed in her room. Rubio Mccord M.D. DR: AMILCAR JOB#: [id number] CC:
--- NOTE | 2018-10-30 19:56 | Neurology Progress Note ---
Interim History Interim History Interim History Ms. Gao feels well. She slept well last night. She has been eating well. She feels that her parkinsonian symptoms are well controlled. She feels that her mind is clear. She denies any headache. She also denies any new neurologic symptoms. She specifically denies any increased weakness, numbness, visual problems, memory problems or other symptoms. She feels that she is her normal self. Review of Systems Neuro Review of Systems Benign. Objective Physical Exam Last Vital Signs Date Time Temp Pulse Resp B/P (MAP) Pulse Ox O2 Delivery O2 Flow Rate FiO2 10/30/18 16:00 98.4 58 20 151/86 (107) 96 10/30/18 09:00 Room Air Laboratory Tests Test 10/30/18 06:10 White Blood Count 4.9 K/UL (4.8-10.8) Red Blood Count 4.13 M/UL (4.20-5.40) L Hemoglobin 12.1 G/DL (12.0-16.0) Hematocrit 36.4 % (37.0-47.0) L Mean Corpuscular Volume 88 FL (80-99) Mean Corpuscular Hemoglobin 29.3 PG (27.0-31.0) Mean Corpuscular Hemoglobin Concent 33.2 G/DL (32.0-36.0) Red Cell Distribution Width 13.0 % (11.6-14.8) Platelet Count 151 K/UL (150-450) Mean Platelet Volume 8.1 FL (6.5-10.1) Neutrophils (%) (Auto) 57.4 % (45.0-75.0) Lymphocytes (%) (Auto) 33.0 % (20.0-45.0) Monocytes (%) (Auto) 6.5 % (1.0-10.0) Eosinophils (%) (Auto) 2.3 % (0.0-3.0) Basophils (%) (Auto) 0.8 % (0.0-2.0) Sodium Level 143 MMOL/L (136-145) Potassium Level 3.8 MMOL/L (3.5-5.1) Chloride Level 109 MMOL/L (98-107) H Carbon Dioxide Level 24 MMOL/L (21-32) Anion Gap 10 mmol/L (5-15) Blood Urea Nitrogen 4 mg/dL (7-18) L Creatinine 0.3 MG/DL (0.55-1.30) L Estimat Glomerular Filtration Rate mL/min (>60) Glucose Level 94 MG/DL (74-106) Calcium Level 9.1 MG/DL (8.5-10.1) Hepatitis A IgM Antibody Pending Hepatitis B Surface Antigen Pending Hepatitis B Core IgM Antibody Pending Hepatitis C Antibody Pending HIV (1&2) Antibody Rapid Negative (NEGATIVE) Neurologic Exam Objective PHYSICAL EXAMINATION: GENERAL: She is a well-developed, but lean lady, lying in bed, in no acute distress. HEAD: Normocephalic and atraumatic. NECK: No neck rigidity was observed. EENT: Examination benign except for tongue protruding out. SPINE: Cervical, thoracic, and lumbosacral spine revealed a kyphoscoliotic curve. NEUROLOGICAL EXAMINATION: MENTAL STATUS EXAMINATION: She was awake and alert. She was oriented to [facility], [facility], and September 2018. She did not know the exact date. She was able to recall 3/3 words immediately, but could only remember 1/3 words in 1 minute and 3 minutes. She was unable to tell me, who the present President was and who prior Presidents were. Her mathematical skills were impaired. Her visuospatial function was also impaired. SPEECH: She had a significant dysarthria. LANGUAGE: She was able to express herself and comprehend relatively well in [place]. CRANIAL NERVE EXAMINATION: II: The visual ng were intact on confrontation testing. III, IV & : The external ocular movements were full and the pupils 3 mm in diameter, equal, round, regular, and reactive to light. V: She had normal facial sensations, and the temporales, masseters, and pterygoids functioned normally. VII: She had a right VII central facial paresis. VIII: She was able to hear and had no nystagmus. IX: The palate moved symmetrically on phonation. X: She had no hoarseness of voice. XI: The sternocleidomastoids and trapezii functioned. XII: The tongue was protruded in the midline and stayed protruded all the time. MOTOR SYSTEM: The tone was minimally increased in all four extremities with a combination of spasticity and mild rigidity. Examination of muscle mass revealed generalized muscle wasting. In addition, she had significant contractures of her fingers, ankles, toes, and knees. Examination of power was exceedingly difficult to perform. She had a significant quadriparesis involving the distal muscles more than the proximal muscles. SENSORY EXAMINATION: She was able to discern light touch. She was unable to cooperate further sensory modalities. REFLEXES: Trace+ and bilaterally symmetrical at the biceps, triceps, brachioradialis, and knees, 0 at both ankles. The plantar responses were mute bilaterally. COORDINATION, STANCE & GAIT: Could not be tested. Impression/Recommendations Diagnostic Impression 1. Ms. 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 She was admitted to [facility] on 10/25/2018 when she was sent to the [facility] ER for evaluation after an alleged fall and a bump on her head. 2. She herself denies any fall. She also denies any new neurologic symptoms. She specifically denies any increased weakness, numbness, visual problems, memory problems or other symptoms. 3. She feels well. She slept well last night. She has been eating well. She feels that her parkinsonian symptoms are well controlled. She feels that her mind is clear. She denies any headache. She also denies any new neurologic symptoms. She specifically denies any increased weakness, numbness, visual problems, memory problems or other symptoms. She feels that she is her normal self. 4. On neurological examination, at this time, she is oriented to self, [facility] and September 2018. She is disoriented to the exact date. She has significant problems with recent and remote memory, a significant dysarthria, a right VII central facial paresis, and she keeps her tongue protruded out. She has a right greater than left quadriparesis involving the distal muscles more than the proximal muscles with significant hand, ankle, toe, and knee contractures, globally diminished deep tendon reflexes with loss of plantar responses, and an inability to stand and walk. 5. The CT scan of the brain done on 10/25/18 revealed a smaller right hemisphere compared to the left with shift of midline structures from the right side to the left side and old calcifications but no acute pathology. 6. Laboratory data on my initial evaluation revealed a relatively normal CBC except for low platelet counts. The chemistry panel revealed that her albumin was low at 2.9. Her urinalysis on admission revealed 2+ leukocyte esterase and 2-4 red blood cells and 5-10 white blood cells per HPF. 7. The patient's history, neurological examination, laboratory data, and imaging studies are most compatible with, an insignificant bump to the head, and a UTI. 8. The patient also demonstrates signs of a neurodegenerative disease, the exact type of disease is unknown to us. She does have a parkinsonian syndrome in addition. Recommendations 1. Continue present management. 2. Continue the patient on the present antiparkinsonian regimen. 3. Treatment of infectious process. 4. Observe. Harry Callejas M.D., M.S.P.H. Harry Callejas MD Oct 30, 2018 19:56
[2018-10-30 20:00] VITALS: BP 122/72
--- NOTE | 2018-10-30 21:03 | Consultation ---
History of Present Illness General Chief Complaint: Multiple Trauma/Fall Reason for Consultation: UTI Present Illness Allergies: Coded Allergies: No Known Allergies (Unverified , 11/22/15) Medication History Scheduled Acetaminophen (Acetaminophen), 650 MG PO every 4 , (Reported) Amantadine Hcl* (Amantadine*), 100 MG ORAL TWICE A DAY, (Reported) Ascorbic Acid* (Vitamin C*), 250 MG ORAL TWICE A DAY, (Reported) Carbidopa/Levodopa 25-100 Mg* (Sinemet 25-100 Mg Tablet*), 1 TAB ORAL EVERY 6 HOURS, (Reported) Carbidopa/Levodopa 25-100 Mg* (Sinemet 25-100 Mg Tablet*), 1 TAB ORAL THREE TIMES A DAY, (Reported) Cefepime Hcl/D5w (Cefepime-Dextrose 2 Gm/50 Ml), 2 GM IVPB Q24H, (Reported) Cefepime Hcl/D5w (Cefepime-Dextrose 2 Gm/50 Ml), 2 GM IVPB Q24H, (Reported) Docusate Sodium* (Docusate Sodium*), 100 MG ORAL TWICE A DAY, (Reported) Heparin Sodium,Porcine (Heparin Sodium), 5,000 UNITS SQ Q12HR, (Reported) Levodopa/Carbidopa (Carbidopa-Levo ER 25-100 Tab), 1 TAB ORAL TWICE A DAY, ( Reported) Levodopa/Carbidopa (Carbidopa-Levo ER 25-100 Tab), 1 TAB ORAL THREE TIMES A DAY, (Reported) Lisinopril* (Lisinopril*), 10 MG ORAL DAILY, (Reported) Metoprolol Succinate* (Metoprolol Succinate*), 25 MG ORAL BID, (Reported) Metoprolol Tartrate* (Metoprolol Tartrate*), 25 MG ORAL Q12HR, (Reported) Multivitamin (Multi Vitamin Daily), 1 TAB ORAL DAILY, (Reported) Multivitamin with Minerals (Multivitamins with Minerals), 1 TAB ORAL DAILY, ( Reported) Nifedipine Xl* (Procardia Xl*), 90 MG ORAL DAILY, (Reported) Pantoprazole* (Protonix*), 40 MG ORAL DAILY, (Reported) Pramipexole (Mirapex), 0.25 MG ORAL THREE TIMES A DAY, (Reported) Pramipexole (Mirapex), 0.5 MG ORAL THREE TIMES A DAY, (Reported) Prazosin Hcl (Prazosin Hcl), 1 MG PO TID, (Reported) Prazosin Hcl* (Minipress*), 1 MG PO TID, (Reported) Scheduled PRN Acetaminophen* (Tylenol*), 325 MG RECTAL Q6HR PRN for Mild Pain/Temp > 100.5, ( Reported) Acetaminophen* (Acetaminophen 325MG Tablet*), 650 MG ORAL Q4H PRN for For Pain, (Reported) Bisacodyl (Dulcolax), 10 MG RC HS PRN for Constipation, (Reported) Guaifenesin/Codeine Phos* (Robitussin Ac*), 30 ML ORAL Q6H PRN for For Cough, ( Reported) Ondansetron (Zofran), 4 MG ORAL Q6H PRN for Nausea & Vomiting, (Reported) Zolpidem Tartrate* (Ambien*), 5 MG ORAL BEDTIME PRN for Insomnia, (Reported) Miscellaneous Medications Mag Hydrox/Al Hydrox/Simeth (Maalox Maximum Strength Susp), 30 ML PO, (Reported) Patient History Healthcare decision maker Resuscitation status Advanced Directive on File Physical Exam Last 24 Hour Vital Signs Date Time Temp Pulse Resp B/P (MAP) Pulse Ox O2 Delivery O2 Flow Rate FiO2 10/30/18 16:00 98.4 58 20 151/86 (107) 96 10/30/18 16:00 56 10/30/18 12:00 98.4 75 20 159/106 (123) 96 10/30/18 12:00 88 10/30/18 09:00 Room Air 10/30/18 08:00 98.1 75 20 150/80 (103) 100 10/30/18 08:00 63 10/30/18 04:00 97.9 73 17 132/83 (99) 94 10/30/18 04:00 82 10/30/18 00:00 97.7 67 18 136/87 (103) 94 10/30/18 00:00 67 10/29/18 21:00 Room Air Intake and Output 10/29/18 10/30/18 19:00 07:00 Intake Total 40 ml Output Total 1200 ml Balance -1200 ml 40 ml IV Total 40 ml Output Urine Total 1200 ml # Voids 4 # Bowel Movements 1 1 Laboratory Tests Test 10/30/18 06:10 White Blood Count 4.9 K/UL (4.8-10.8) Red Blood Count 4.13 M/UL (4.20-5.40) L Hemoglobin 12.1 G/DL (12.0-16.0) Hematocrit 36.4 % (37.0-47.0) L Mean Corpuscular Volume 88 FL (80-99) Mean Corpuscular Hemoglobin 29.3 PG (27.0-31.0) Mean Corpuscular Hemoglobin Concent 33.2 G/DL (32.0-36.0) Red Cell Distribution Width 13.0 % (11.6-14.8) Platelet Count 151 K/UL (150-450) Mean Platelet Volume 8.1 FL (6.5-10.1) Neutrophils (%) (Auto) 57.4 % (45.0-75.0) Lymphocytes (%) (Auto) 33.0 % (20.0-45.0) Monocytes (%) (Auto) 6.5 % (1.0-10.0) Eosinophils (%) (Auto) 2.3 % (0.0-3.0) Basophils (%) (Auto) 0.8 % (0.0-2.0) Sodium Level 143 MMOL/L (136-145) Potassium Level 3.8 MMOL/L (3.5-5.1) Chloride Level 109 MMOL/L (98-107) H Carbon Dioxide Level 24 MMOL/L (21-32) Anion Gap 10 mmol/L (5-15) Blood Urea Nitrogen 4 mg/dL (7-18) L Creatinine 0.3 MG/DL (0.55-1.30) L Estimat Glomerular Filtration Rate mL/min (>60) Glucose Level 94 MG/DL (74-106) Calcium Level 9.1 MG/DL (8.5-10.1) Hepatitis A IgM Antibody Pending Hepatitis B Surface Antigen Pending Hepatitis B Core IgM Antibody Pending Hepatitis C Antibody Pending HIV (1&2) Antibody Rapid Negative (NEGATIVE) Height (Feet): 4 Height (Inches): 11.00 Weight (Pounds): 120 Medications Current Medications Medications (Trade) Dose Ordered Sig/Alex Route PRN Reason Start Time Stop Time Status Last Admin Dose Admin Acetaminophen (Tylenol) 650 mg Q4H PRN ORAL fever 10/25/18 15:00 11/24/18 14:59 Amantadine HCl (Symmetrel) 100 mg TWICE A DAY ORAL 10/25/18 18:00 11/24/18 17:59 10/30/18 18:01 Carbidopa/Levodopa (Sinemet 25/100) 1 tab EVERY 6 HOURS ORAL 10/25/18 18:00 11/24/18 17:59 10/30/18 18:01 Clonidine HCl (Catapres Tab) 0.1 mg Q4H PRN ORAL sbp >160 10/27/18 12:45 11/26/18 12:44 Heparin Sodium (Porcine) (Heparin 5000 units/ml) 5,000 units EVERY 12 HOURS SUBQ 10/25/18 21:00 11/24/18 20:59 10/30/18 20:22 Memantine (Namenda) 5 mg BID ORAL 10/27/18 09:00 11/26/18 08:59 10/30/18 18:01 Metoprolol Tartrate (Lopressor) 5 mg Q5MIN X 3 IVP 10/27/18 18:30 11/26/18 18:29 Morphine Sulfate (Morphine Sulfate) 2 mg Q4H PRN IVP Moderate Pain (Pain Scale 4-6) 10/25/18 15:00 11/01/18 14:59 Ondansetron HCl (Zofran) 4 mg Q6H PRN IVP Nausea & Vomiting 10/25/18 15:00 11/24/18 14:59 Phenazopyridine HCl (Pyridium) 100 mg DAILYPRN PRN ORAL dysuria 10/25/18 15:00 11/24/18 14:59 Polyethylene Glycol (Miralax) 17 gm DAILYPRN PRN ORAL Constipation 10/25/18 15:00 11/24/18 14:59 Pramipexole (Mirapex) 0.25 mg THREE TIMES A DAY ORAL 10/25/18 18:00 11/24/18 17:59 10/30/18 18:01 Sodium Chloride 550 ml @ 50 mls/hr Q11H IV 10/26/18 00:00 11/25/18 00:00 10/30/18 16:18 Temazepam (Restoril) 15 mg HSPRN PRN ORAL Insomnia 10/25/18 15:00 11/01/18 14:59 Assessment/Plan Assessment/Plan Hematology/Oncology Consultation Requesting MD: Date of Service: 10/30/18 Reason for consultation: Anemia and Thrombocytopenia HPI:The patient is a 73-year-old female from [facility], who presented with increased lethargy and weakness. She was found to have UTI, sepsis, and dehydration and admitted to telemetry for further care. Currently, calm in bed, slightly lethargic and weak.No complaint. The patient has severe Parkinson disease. Her cardiovascular history is also significant for history of hypertension and bradycardia. Hematology/Oncology was consulted for Anemia and Thrombocytopenia, hgb 12, Plt 151. PAST MEDICAL HISTORY: Includes anemia, dementia, Parkinson, urinary tract infection, and hypertension. PAST SURGICAL HISTORY: Unknown. ALLERGIES: Denies smoking. No alcohol. No intravenous drug abuse. MEDICATIONS: Include vancomycin, metoprolol, heparin, amantadine, carbidopa, pramipexole, prazosin, cefepime, albuterol, morphine, Zofran, and temazepam. FAMILY HISTORY: Noncontributory. PHYSICAL EXAMINATION: GENERAL: Slightly confused in bed, oriented x1, in no acute distress. VITAL SIGNS: Temperature is 97 degrees, pulse 62, respirations 20, and blood pressure 120/72. CARDIOVASCULAR: No murmur. LUNGS: Poor air exchange. ABDOMEN: Bowel sounds distant. EXTREMITIES: No cyanosis, clubbing, or edema NEUROLOGIC: The patient with weakness x4 noted. Neck, weakness as well leaning forward. LABORATORY DATA: Show white count 4.7, platelets 140 otherwise CBC is normal. BMP shows chloride 110, creatinine 0.4. Albumin 2.9, otherwise normal. INR 1.0, PTT 27. Urinalysis shows 2+ leukocyte esterase. Assessment and Recommendations # Anemia of chronic disease (or of iron deficiency) due to underlying chronic medical issues, multifactorial --> Anemia workup has been ordered --> No evidence of hemolysis is noted, peripheral smear has been reviewed. --> Hgb goal >7. Transfuse prn. --> Epogen or iron at this time is not particularly indicated --> Medications have been reviewed # Thrombocytopenia - potential causes multifactorial, evaluate liver and viral etiologies to begin, also could be related to underlying medications patient has received. --> Hep panel and HIV ordered --> US abd to evaluate for cirrhosis and hsm ordered --> Peripheral smear ordered to evaluate for blasts /schistocytes --> abx and other meds have been reviewed --> ok for ppx if plt >50k w/ either heparin or lovenox --> Transfuse if Plt < 20k and fever, or if Plt < 10k without fever # Urinary tract infection. --> antibiotics per Infectious Disease. # Sepsis --> antibiotics per Infectious Disease. # Dehydration. --> PT and Dietary evaluation. #Hypertension --> Blood pressure control. The timing of this note does not necessarily reflect the time of the patient was seen Greatly appreciate consultation! Alan Cazares MD Oct 30, 2018 21:03
[2018-10-31] VITALS: BP 156/86
[2018-10-31] MEDS: Levodopa/Carbidopa 25/100 tab ORAL SCH ×3 (00:41→12:52)
[2018-10-31 04:00] VITALS: BP 154/78
[2018-10-31] MEDS: Sodium Chloride 550 ML IV SCH (05:12)
[2018-10-31 06:48] LABS: ANION GAP 12 mmol/L (5-15); BLOOD UREA NITROGEN 6 mg/dL (7-18); CALCIUM 9.8 MG/DL (8.5-10.1); CARBON DIOXIDE 22 MMOL/L (21-32); CHLORIDE 107 MMOL/L (98-107); CREATININE 0.3 MG/DL (0.55-1.30); POTASSIUM 3.7 MMOL/L (3.5-5.1); SODIUM 141 MMOL/L (136-145)
[2018-10-31 07:04] LABS: BASOPHILS % (AUTO) 1.1 % (0.0-2.0); EOSINOPHILS % (AUTO) 1.9 % (0.0-3.0); HEMATOCRIT 37.5 % (37.0-47.0); HEMOGLOBIN 12.4 G/DL (12.0-16.0); LYMPHOCYTES % (AUTO) 35.4 % (20.0-45.0); MEAN CORPUSCULAR VOLUME 88 FL (80-99); MONOCYTES % (AUTO) 6.8 % (1.0-10.0); NEUTROPHILS % (AUTO) 54.9 % (45.0-75.0); PLATELET COUNT 157 K/UL (150-450); RED BLOOD COUNT 4.24 M/UL (4.20-5.40); RED CELL DISTRIBUTION WIDTH 13.3 % (11.6-14.8); WHITE BLOOD COUNT 4.8 K/UL (4.8-10.8)
--- NOTE | 2018-10-31 07:56 | Infectious Diseases Prog Note ---
Assessment/Plan Assessment/Plan 73 yo female with PMHx of parkinonism and HTN who was sent tot ED from her assisted after a fall. UTI Patient with dehydration and fall with AMS - This could be a manifestation of sepsis from occult UTI Patient already had 2 days of cefepime S/P Fall Parkinsons HTN Dysphagia PLAN - Continue to monitor off abx as clinically stable - 10/29/18 SPCeftriaxone #2 short course of abx for UTI. - 10/26/18 SP Cefepime #2 and Vancomcyin #2 - f/u Cultures - Monitor CBC and Temps - OK to D/C off Abx from an ID perspective - VRE RECTUM IS A COLONIZER We will continue to follow the patient during this hospitalization. Subjective Allergies: Coded Allergies: No Known Allergies (Unverified , 11/22/15) Subjective Afebrile No leukocytosis Objective Vital Signs Last 24 Hour Vital Signs Date Time Temp Pulse Resp B/P (MAP) Pulse Ox O2 Delivery O2 Flow Rate FiO2 10/31/18 04:00 97.5 60 16 154/78 (103) 97 10/31/18 04:00 81 10/31/18 00:00 81 10/31/18 00:00 97.7 76 17 156/86 (109) 99 10/30/18 21:00 Room Air 10/30/18 20:00 64 10/30/18 20:00 97.9 62 17 122/72 (89) 97 10/30/18 16:00 98.4 58 20 151/86 (107) 96 10/30/18 16:00 56 10/30/18 12:00 98.4 75 20 159/106 (123) 96 10/30/18 12:00 88 10/30/18 09:00 Room Air 10/30/18 08:00 98.1 75 20 150/80 (103) 100 10/30/18 08:00 63 Height (Feet): 4 Height (Inches): 11.00 Weight (Pounds): 120 Objective Gen: NAD HEENT: NCAT, MMM, EOMI LUNGS: CTAB, No W CARDS: RRR, S1, S2 ABD: Soft, NT, ND, + BS Ext: C/C/E, Contractures Laboratory Tests Test 10/31/18 06:10 White Blood Count 4.8 K/UL (4.8-10.8) Red Blood Count 4.24 M/UL (4.20-5.40) Hemoglobin 12.4 G/DL (12.0-16.0) Hematocrit 37.5 % (37.0-47.0) Mean Corpuscular Volume 88 FL (80-99) Mean Corpuscular Hemoglobin 29.3 PG (27.0-31.0) Mean Corpuscular Hemoglobin Concent 33.1 G/DL (32.0-36.0) Red Cell Distribution Width 13.3 % (11.6-14.8) Platelet Count 157 K/UL (150-450) Mean Platelet Volume 7.1 FL (6.5-10.1) Neutrophils (%) (Auto) 54.9 % (45.0-75.0) Lymphocytes (%) (Auto) 35.4 % (20.0-45.0) Monocytes (%) (Auto) 6.8 % (1.0-10.0) Eosinophils (%) (Auto) 1.9 % (0.0-3.0) Basophils (%) (Auto) 1.1 % (0.0-2.0) Sodium Level 141 MMOL/L (136-145) Potassium Level 3.7 MMOL/L (3.5-5.1) Chloride Level 107 MMOL/L (98-107) Carbon Dioxide Level 22 MMOL/L (21-32) Anion Gap 12 mmol/L (5-15) Blood Urea Nitrogen 6 mg/dL (7-18) L Creatinine 0.3 MG/DL (0.55-1.30) L Estimat Glomerular Filtration Rate mL/min (>60) Glucose Level 76 MG/DL (74-106) Calcium Level 9.8 MG/DL (8.5-10.1) Current Medications Medications (Trade) Dose Ordered Sig/Alex Route PRN Reason Start Time Stop Time Status Last Admin Dose Admin Acetaminophen (Tylenol) 650 mg Q4H PRN ORAL fever 10/25/18 15:00 11/24/18 14:59 Amantadine HCl (Symmetrel) 100 mg TWICE A DAY ORAL 10/25/18 18:00 11/24/18 17:59 10/30/18 18:01 Carbidopa/Levodopa (Sinemet 25/) 1 tab EVERY 6 HOURS ORAL 10/25/18 18:00 11/24/18 17:59 10/31/18 06:11 Clonidine HCl (Catapres Tab) 0.1 mg Q4H PRN ORAL sbp >160 10/27/18 12:45 11/26/18 12:44 Heparin Sodium (Porcine) (Heparin 5000 units/ml) 5,000 units EVERY 12 HOURS SUBQ 10/25/18 21:00 11/24/18 20:59 10/30/18 20:22 Memantine (Namenda) 5 mg BID ORAL 10/27/18 09:00 11/26/18 08:59 10/30/18 18:01 Metoprolol Tartrate (Lopressor) 5 mg Q5MIN X 3 IVP 10/27/18 18:30 11/26/18 18:29 Morphine Sulfate (Morphine Sulfate) 2 mg Q4H PRN IVP Moderate Pain (Pain Scale 4-6) 10/25/18 15:00 11/01/18 14:59 Ondansetron HCl (Zofran) 4 mg Q6H PRN IVP Nausea & Vomiting 10/25/18 15:00 11/24/18 14:59 Phenazopyridine HCl (Pyridium) 100 mg DAILYPRN PRN ORAL dysuria 10/25/18 15:00 11/24/18 14:59 Polyethylene Glycol (Miralax) 17 gm DAILYPRN PRN ORAL Constipation 10/25/18 15:00 11/24/18 14:59 Pramipexole (Mirapex) 0.25 mg THREE TIMES A DAY ORAL 10/25/18 18:00 11/24/18 17:59 10/30/18 18:01 Sodium Chloride 550 ml @ 50 mls/hr Q11H IV 10/26/18 00:00 11/25/18 00:00 10/31/18 05:12 Temazepam (Restoril) 15 mg HSPRN PRN ORAL Insomnia 10/25/18 15:00 11/01/18 14:59 Jasvir Mar MD Oct 31, 2018 07:56
[2018-10-31 08:00] VITALS: BP 103/63
[2018-10-31] MEDS: Memantine 5 MG TAB ORAL SCH (10:07)
[2018-10-31] MEDS: Amantadine 100mg cap ORAL SCH (10:08)
[2018-10-31] MEDS: Heparin 5000 units/ml inj SUBQ SCH (10:09)
[2018-10-31 12:00] VITALS: BP 160/96
[2018-10-31 12:53] VITALS: BP 160/96
--- NOTE | 2018-10-31 13:20 | General Progress Note ---
Assessment/Plan Problem List: (1) UTI (urinary tract infection) ICD Codes: N39.0 - Urinary tract infection, site not specified SNOMED: 63508477 (2) Anemia ICD Codes: D64.9 - Anemia, unspecified SNOMED: 758963273 (3) Parkinson disease ICD Codes: G20 - Parkinson's disease SNOMED: 23701103 (4) Hypertension ICD Codes: I10 - Essential (primary) hypertension SNOMED: 81372666 Qualifiers: Qualified Codes: I10 - Essential (primary) hypertension (5) Dementia ICD Codes: F03.90 - Unspecified dementia without behavioral disturbance SNOMED: 19977864 (6) Sepsis ICD Codes: A41.9 - Sepsis, unspecified organism SNOMED: 33755336 (7) Hypoalbuminemia ICD Codes: E88.09 - Other disorders of plasma-protein metabolism, not elsewhere classified SNOMED: 302198967 (8) Pancytopenia ICD Codes: D61.818 - Other pancytopenia SNOMED: 172344922 Status: stable, progressing Assessment/Plan pt diet abx dc if clear Subjective Allergies: Coded Allergies: No Known Allergies (Unverified , 11/22/15) All Systems: reviewed and negative except above Subjective sleepy in bed calm Objective Last 24 Hour Vital Signs Date Time Temp Pulse Resp B/P (MAP) Pulse Ox O2 Delivery O2 Flow Rate FiO2 10/31/18 12:53 160/96 10/31/18 12:00 97.9 76 20 160/96 (117) 100 10/31/18 08:10 Room Air 10/31/18 08:00 97.2 74 22 103/63 (76) 86 10/31/18 07:29 58 10/31/18 04:00 97.5 60 16 154/78 (103) 97 10/31/18 04:00 81 10/31/18 00:00 81 10/31/18 00:00 97.7 76 17 156/86 (109) 99 10/30/18 21:00 Room Air 10/30/18 20:00 64 10/30/18 20:00 97.9 62 17 122/72 (89) 97 10/30/18 16:00 98.4 58 20 151/86 (107) 96 10/30/18 16:00 56 Intake and Output 10/30/18 10/31/18 19:00 07:00 Intake Total 1079.167 ml Balance 1079.167 ml Intake Oral 480 ml IV Total 599.167 ml # Voids 2 2 # Bowel Movements 1 Laboratory Tests 10/31/18 06:10: White Blood Count 4.8, Red Blood Count 4.24, Hemoglobin 12.4, Hematocrit 37.5, Mean Corpuscular Volume 88, Mean Corpuscular Hemoglobin 29.3, Mean Corpuscular Hemoglobin Concent 33.1, Red Cell Distribution Width 13.3, Platelet Count 157, Mean Platelet Volume 7.1, Neutrophils (%) (Auto) 54.9, Lymphocytes (%) (Auto) 35.4, Monocytes (%) (Auto) 6.8, Eosinophils (%) (Auto) 1.9, Basophils (%) (Auto ) 1.1, Sodium Level 141, Potassium Level 3.7, Chloride Level 107, Carbon Dioxide Level 22, Anion Gap 12, Blood Urea Nitrogen 6L, Creatinine 0.3L, Estimat Glomerular Filtration Rate , Glucose Level 76, Calcium Level 9.8 Height (Feet): 4 Height (Inches): 11.00 Weight (Pounds): 120 General Appearance: lethargic EENT: normal ENT inspection Neck: normal alignment Cardiovascular: normal peripheral pulses, normal rate, regular rhythm Respiratory/Chest: chest wall non-tender, lungs clear, normal breath sounds Abdomen: normal bowel sounds, non tender, soft Extremities: normal inspection Edema: no edema noted Arm (L), no edema noted Arm (R), no edema noted Leg (L), no edema noted Leg (R), no edema noted Pedal (L), no edema noted Pedal (R), no edema noted Generalized Neurologic: motor weakness Skin: normal pigmentation, warm/dry Tony Dupree DO Oct 31, 2018 13:20
--- NOTE | 2018-10-31 18:00 | Progress Note ---
DATE: 10/31/2018 NOTE: "POOR AUDIO QUALITY" SUBJECTIVE: This is a 73-year-old female patient with dehydration. This patient continues with disorganized thought process and mood lability. She has got feelings of hopelessness, helplessness, low energy, poor appetite, and loss of interest in activity. Her attending has requested daily psychiatric consultation because of her altered mental status and confusion. MENTAL STATUS EXAMINATION: This is a 73-year-old female. Appearance is disheveled. Attitude, irritable and agitated. Affect, guarded and restricted. Intellect poor. Mood, depressed and anxious. Motor activity, psychomotor agitation. Attention span is poor. Orientation x2. Speech is low volume and slurred. Thought process, disorganized and illogical. Thought content, auditory hallucinations and paranoid delusions. Insight and judgment is poor. DIAGNOSIS: Major depressive disorder, mild, recurrent, with psychotic features. PLAN: Continue treatment with medications to reduce agitation and irritability. Provided with 20 minutes of cognitive behavioral therapy to help her identify automatic negative thoughts and help her to convert those negative thoughts to more positive thoughts. Chart was reviewed and discussed with staff. Seen and assessed in her room. Twenty minutes of cognitive behavioral therapy provided. Rubio Mccord M.D. DR: Juju JOB#: [id number] CC:
--- NOTE | 2018-10-31 21:26 | General Progress Note ---
Assessment/Plan Assessment/Plan Assessment and Recommendations # Anemia of chronic disease (or of iron deficiency) due to underlying chronic medical issues, multifactorial --> Anemia workup has been ordered --> No evidence of hemolysis is noted, peripheral smear has been reviewed. --> Hgb goal >7. Transfuse prn. --> Epogen or iron at this time is not particularly indicated --> Medications have been reviewed -->hgb trend: 12.1-->12.4 # Thrombocytopenia - potential causes multifactorial, evaluate liver and viral etiologies to begin, also could be related to underlying medications patient has received. --> Hep panel and HIV ordered --> US abd to evaluate for cirrhosis and hsm ordered --> Peripheral smear ordered to evaluate for blasts /schistocytes --> abx and other meds have been reviewed --> ok for ppx if plt >50k w/ either heparin or lovenox --> Transfuse if Plt < 20k and fever, or if Plt < 10k without fever -->plt trend: 140-->157 # Urinary tract infection. --> antibiotics per Infectious Disease. # Sepsis --> antibiotics per Infectious Disease. # Dehydration. --> PT and Dietary evaluation. #Hypertension --> Blood pressure control. The timing of this note does not necessarily reflect the time of the patient was seen Greatly appreciate consultation! Subjective Constitutional: Denies: no symptoms, chills, diaphoresis, fever, malaise, weakness, other HEENT: Denies: no symptoms, eye pain, blurred vision, tearing, double vision, ear pain, ear discharge, nose pain, nose congestion, throat pain, throat swelling, mouth pain, mouth swelling, other Cardiovascular: Denies: no symptoms, chest pain, edema, irregular heart rate, lightheadedness, palpitations, syncope, other Respiratory: Denies: no symptoms, cough, orthopnea, shortness of breath, SOB with excertion, SOB at rest, sputum, stridor, wheezing, other Gastrointestinal/Abdominal: Denies: no symptoms, abdomen distended, abdominal pain, black stools, tarry stools, blood in stool, constipated, diarrhea, difficulty swallowing, nausea, poor appetite, poor fluid intake, rectal bleeding , vomiting, other Genitourinary: Denies: no symptoms, burning, discharge, frequency, flank pain, hematuria, incontinence, pain, urgency, other Neurologic/Psychiatric: Denies: no symptoms, anxiety, depressed, emotional problems, headache, numbness, paresthesia, pre-existing deficit, seizure, tingling, tremors, weakness, other Endocrine: Denies: no symptoms, excessive sweating, flushing, intolerance to cold, intolerance to heat, increased hunger, increased thirst, increased urine, unexplained weight gain, unexplained weight loss, other Hematologic/Lymphatic: Denies: no symptoms, anemia, easy bleeding, easy bruising, other Allergies: Coded Allergies: No Known Allergies (Unverified , 11/22/15) Subjective 10/31: pt is awake,and comfortable, no events. Objective Last 24 Hour Vital Signs Date Time Temp Pulse Resp B/P (MAP) Pulse Ox O2 Delivery O2 Flow Rate FiO2 10/31/18 12:53 160/96 10/31/18 12:00 97.9 76 20 160/96 (117) 100 10/31/18 11:37 66 10/31/18 08:10 Room Air 10/31/18 08:00 97.2 74 22 103/63 (76) 86 10/31/18 07:29 58 10/31/18 04:00 97.5 60 16 154/78 (103) 97 10/31/18 04:00 81 10/31/18 00:00 81 10/31/18 00:00 97.7 76 17 156/86 (109) 99 Intake and Output 10/30/18 10/31/18 19:00 07:00 Intake Total 1079.167 ml Balance 1079.167 ml Intake Oral 480 ml IV Total 599.167 ml # Voids 2 2 # Bowel Movements 1 Laboratory Tests 10/31/18 06:10: White Blood Count 4.8, Red Blood Count 4.24, Hemoglobin 12.4, Hematocrit 37.5, Mean Corpuscular Volume 88, Mean Corpuscular Hemoglobin 29.3, Mean Corpuscular Hemoglobin Concent 33.1, Red Cell Distribution Width 13.3, Platelet Count 157, Mean Platelet Volume 7.1, Neutrophils (%) (Auto) 54.9, Lymphocytes (%) (Auto) 35.4, Monocytes (%) (Auto) 6.8, Eosinophils (%) (Auto) 1.9, Basophils (%) (Auto ) 1.1, Sodium Level 141, Potassium Level 3.7, Chloride Level 107, Carbon Dioxide Level 22, Anion Gap 12, Blood Urea Nitrogen 6L, Creatinine 0.3L, Estimat Glomerular Filtration Rate , Glucose Level 76, Calcium Level 9.8 Height (Feet): 4 Height (Inches): 11.00 Weight (Pounds): 120 Objective PHYSICAL EXAMINATION: GENERAL: Slightly confused in bed, oriented x1, in no acute distress. VITAL SIGNS: Temperature is 97 degrees, pulse 62, respirations 20, and blood pressure 120/72. CARDIOVASCULAR: No murmur. LUNGS: Poor air exchange. ABDOMEN: Bowel sounds distant. EXTREMITIES: No cyanosis, clubbing, or edema NEUROLOGIC: The patient with weakness x4 noted. Neck, weakness as well leaning forward. Alan Cazares MD Oct 31, 2018 21:26
--- NOTE | 2018-11-01 16:49 | Discharge Summary ---
Discharge Summary Discharge Summary _ DATE OF ADMISSION: 10/25/2018 DATE OF DISCHARGE: 10/31/2018 DISCHARGED BY: Dr. Dupree REASON FOR ADMISSION: 73 years old female with past medical history of Parkinson disease, dysphagia, major depressive disorder, functional quadriplegia, hypertension, was brought for evaluation after alleged fall. Upon evaluation vital signs revealed elevated blood pressure 171/94, otherwise were stable. Laboratory workup revealed no leukocytosis, stable hemoglobin hematocrit. Urinalysis with evidence of pyuria and was positive for leukocyte esterase. Troponin negative.EKG revealed normal sinus rhythm, no acute ischemic changes, with some premature atrial contractions. Stable renal parameters and electrolytes. Chest x-ray revealed no evidence of acute cardiopulmonary pathology. CT of the head revealed no acute intracranial pathology. 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 Involutional changes consistent with small vessel disease. Patient was admitted for further management CONSULTANTS: movie shot cameraman Dr. Bui neurologist Dr. Callejas pulmonary Dr. Sibley ID specialist Dr. Young financial investment adviser/oncologist Dr. Cazares psychiatrist Dr. Mccord HOSPITAL COURSE: Patient admitted to telemetry floor and started on IV fluids and broad-spectrum antibiotic. Neurology consult was requested. Per neurologist, patient history, neurological examination, laboratory data and imaging studies, were most compatible with evidence of UTI and some insignificant bump to the head due to fall. CT head was negative for acute intracranial pathology. Patient also demonstrated signs of neurologic degenerative disease, the exact type of disease was unknown, and patient also had Parkinsonian syndrome. Patient was continued on current antiparkinsonian regimen. Patient was on empiric antibiotic for urinary tract infection. Blood cultures were negative. Dietary evaluation revealed high nutritional risk. Nutritional supplements implemented in diet. Patient noted to have atrial fibrillation with rapid ventricular response . Patient was given intravenously metoprolol and digoxin for heart rate control. Heart rate stabilized. Patient spontaneously converted to sinus rhythm. Case Management Social Worker follow. No need for anticoagulation, since patient spontaneously converted , and it was a first episode. Patient was continued on oral metoprolol. Hemodynamic status was closely monitored and remained stable. DVT prophylaxis provided Echocardiogram from 2018 showed normal ejection fraction of 55%. Episode of hypotension resolved, which was possibly due to occult sepsis, as per cardiology. Patient was on gentle IV hydration. Home medications were continued. Pain management was addressed . ID specialist followed. Patient initially presented with dehydration, status post fall and altered mental status, which could be manifestations of sepsis from probable UTI. Patient undergone treatment with empiric antibiotics as per ID specialist recommendation. No leukocytosis, no fever. Infectious disease doctor recommended to discontinue antibiotics and closely monitor patient for any signs and symptoms of infection. Automotive Tire Technician followed. Hemoglobin and hematocrit were closely monitored with goal to keep hemoglobin 7 . No Epogen of iron at this time were particularly indicated as per financial investment adviser. Hemoglobin remained stable . Prior to discharge hemoglobin 12.4 and hematocrit 37.5. Patient also noted to have a mild thrombocytopenia with multifactorial potential causes. Hepatitis panel and HIV test were negative. Prior to discharge platelet count stabilized -157. Renal parameters and electrolytes were closely monitored, electrolytes corrected as needed and nephrotoxins were avoided. Fall precautions were maintained. Psychiatrist followed. Per psychiatrist patient had major depressive disorder , mild, recurrent, with psychotic features . Psychiatric medication regimen was optimized. Cognitive behavioral therapy provided. Patient clinically stabilized and was ready for transfer back to care home facility for continuation of care. FINAL DIAGNOSES: Atrial fibrillation with rapid ventricular response Hypotension Status post fall Altered mental status due to dehydration Dehydration Urinary tract infection Possible occult sepsis Parkinsonian syndrome Dysphagia Major depressive disorder, mild, recurrent, with psychotic features DISCHARGE MEDICATIONS: See Medication Reconciliation list. DISCHARGE INSTRUCTIONS: Patient was discharged to the care home facility/[facility]. Follow up with medical doctor at the facility. I have been assigned to dictate discharge summary for this account. I was not involved in the patient's management. Alyssa Toledo NP Nov 01, 2018 16:49
== END 2018-10-31 15:48 | DRG 871 ==
LOC: EDBD 11:01 → EMR 11:41 → EDBEDREQ 14:29 → 4E 14:43 → 2E 10-26 00:58
DX: A41.9 Sepsis, unspecified organism (principal); R53.2 Functional quadriplegia; N39.0 Urinary tract infection, site not specified; F33.0 Major depressive disorder, recurrent, mild; F20.0 Paranoid schizophrenia; E46 Unspecified protein-calorie malnutrition; I10 Essential (primary) hypertension; G31.83 Neurocognitive disorder with Lewy bodies; F02.80 Dementia in other diseases classified elsewhere, unspecified severity, without behavioral disturbance, psychotic disturbance, mood disturbance, and anxiety; I95.9 Hypotension, unspecified; E86.0 Dehydration; Z91.81 History of falling; R13.10 Dysphagia, unspecified; D69.6 Thrombocytopenia, unspecified; I48.0 Paroxysmal atrial fibrillation; D50.9 Iron deficiency anemia, unspecified; E88.09 Other disorders of plasma-protein metabolism, not elsewhere classified; Z68.24 Body mass index [BMI] 24.0-24.9, adult; L89.159 Pressure ulcer of sacral region, unspecified stage
CPT/HCPCS: 36415; 70450; 71045; 80048; 80053; 81003; 82550; 83735; 83880; 84100; 84484; 85025; 85610; 85730; 86703; 86705; 86709; 86803; 87040; 87081; 87340; 93005; 96361; 96365; 99285; J8499

== ENCOUNTER 2019-06-11 12:17 | Inpatient (IN) | payer MEDICARE, MEDICAID ==
[~2019-06-11] VITALS: Ht 154.9 cm; Wt 51.7 kg
[2019-06-11 12:25] VITALS: BP 184/96
[2019-06-11] MEDS ORDERED: PRAMIPEXOLE D0.25 MG ORAL (12:59)
[2019-06-11] MEDS ORDERED: CATAPRES0.1 MG ORAL (12:59)
--- NOTE | 2019-06-11 13:00 | NUR ---
ED Nurse Note: Pt. brought in by LURDES from [facility] for g-tube due to low PO intake. Pt. is AAOx1 to her self. Pt. is non-verbal and has contractures on BLE and BUE. Pressure ulcer noted on the buttocks area.Pt. can localize pain
--- NOTE | 2019-06-11 13:29 | Emergency Room Report ---
History of Present Illness General Chief Complaint: General Complaint Source: EMS Present Illness HPI Disclaimer: Please note that this report is being documented using DRAGON technology. This can lead to erroneous entry secondary to incorrect interpretation by the dictating instrument. HPI: 73-year-old female with history of Parkinson's disease, dysphagia, functional quadriplegia, hypertension and major depression who is nonverbal at baseline presents for evaluation of failure to thrive and G-tube placement request. Sent in by her PMD, Dr. Tony Dupree. Patient cannot provide any history. PMH: Parkinsonism, dysphasia, hypertension, hyperlipidemia, MDD, functional quadriplegia PSH: See record Allergies: See record Social Hx: See record Allergies: Coded Allergies: No Known Allergies (Unverified , 11/22/15) Nursing Documentation-PMH Hx Cardiac Problems: Yes - anemia, muscle weakness, dysphagia, quadriplegia Hx Hypertension: Yes Hx Cancer: No Hx Gastrointestinal Problems: No Hx Neurological Problems: Yes - PARKINSONS,MUSCLE WEAKNESS Review of Systems All Other Systems: limited - Patient's clinical condition Physical Exam Vital Signs Date Time Temp Pulse Resp B/P (MAP) Pulse Ox O2 Delivery O2 Flow Rate FiO2 06/11/19 12:25 99.9 110 20 184/96 (125) 99 Room Air General: Awake and alert, no acute distress, nonverbal HEENT: NC/AT. EOMI. Cardiovascular: Tachycardic. S1 and S2 normal. No murmur appreciated Resp: Normal work of breathing. No cough, wheezing or crackles appreciated Abdomen: Abdomen is soft, nondistended. Nontender Skin: Warm to the touch. Intact. No abrasions, laceration or rash over the exposed skin MSK: Spasticity in the upper extremities held in contracture. Neuro: Awake and in good eye contact. Nonverbal Back/Spine: No midline tenderness in the cervical, thoracic or lumbosacral spine. Medical Decision Making Diagnostic Impression: Primary Impression: Failure to thrive Additional Impressions: Decreased oral intake UTI (urinary tract infection) ER Course 73-year-old female presents from a nursing facility for evaluation of failure to thrive, decreased intake and family request for G-tube placement. She will be admitted to her PMD service, Dr. Dupree, after full metabolic and infectious panel. Added blood cultures as the patient felt warm to the touch though yet has not had developed a fever. She was slightly tachycardic but this is now resolved. Laboratory Tests Test 06/11/19 13:37 06/11/19 14:00 White Blood Count 7.3 K/UL (4.8-10.8) Red Blood Count 4.87 M/UL (4.20-5.40) Hemoglobin 13.9 G/DL (12.0-16.0) Hematocrit 43.3 % (37.0-47.0) Mean Corpuscular Volume 89 FL (80-99) Mean Corpuscular Hemoglobin 28.6 PG (27.0-31.0) Mean Corpuscular Hemoglobin Concent 32.2 G/DL (32.0-36.0) Red Cell Distribution Width 12.9 % (11.6-14.8) Platelet Count 216 K/UL (150-450) Mean Platelet Volume 6.8 FL (6.5-10.1) Neutrophils (%) (Auto) 79.0 % (45.0-75.0) H Lymphocytes (%) (Auto) 14.3 % (20.0-45.0) L Monocytes (%) (Auto) 5.6 % (1.0-10.0) Eosinophils (%) (Auto) 0.5 % (0.0-3.0) Basophils (%) (Auto) 0.7 % (0.0-2.0) Prothrombin Time 10.4 SEC (9.30-11.50) Prothrombin Time INR 1.0 (0.9-1.1) PTT 27 SEC (23-33) Sodium Level 139 MMOL/L (136-145) Potassium Level 4.3 MMOL/L (3.5-5.1) Chloride Level 106 MMOL/L (98-107) Carbon Dioxide Level 24 MMOL/L (21-32) Anion Gap 9 mmol/L (5-15) Blood Urea Nitrogen 21 mg/dL (7-18) H Creatinine 0.4 MG/DL (0.55-1.30) L Estimate Glomerular Filtration Rate mL/min (>60) Glucose Level 128 MG/DL (74-106) H Calcium Level 10.7 MG/DL (8.5-10.1) H Total Bilirubin 0.8 MG/DL (0.2-1.0) Aspartate Amino Transferase (AST) 20 U/L (15-37) Alanine Aminotransferase (ALT) 8 U/L (12-78) L Alkaline Phosphatase 115 U/L (46-116) Total Protein 7.9 G/DL (6.4-8.2) Albumin 3.2 G/DL (3.4-5.0) L Globulin 4.7 g/dL Albumin/Globulin Ratio 0.7 (1.0-2.7) L Urine Color Yellow Urine Appearance Clear Urine pH 6 (4.5-8.0) Urine Specific [place] 1.015 (1.005-1.035) Urine Protein 2+ (NEGATIVE) H Urine Glucose (UA) Negative (NEGATIVE) Urine Ketones Negative (NEGATIVE) Urine Blood 4+ (NEGATIVE) H Urine Nitrite Negative (NEGATIVE) Urine Bilirubin Negative (NEGATIVE) Urine Urobilinogen Normal MG/DL (0.0-1.0) Urine Leukocyte Esterase 1+ (NEGATIVE) H Urine RBC Tntc /HPF (0 - 2) H Urine WBC 10-15 /HPF (0 - 2) H Urine Squamous Epithelial Cells Few /LPF (NONE/OCC) Urine Bacteria Few /HPF (NONE) EKG Diagnostic Results EKG Time: 13:27 Rate: tachycardiac Rhythm: NSR ST Segments: no acute changes Other Impression Sinus tachycardia with sinus arrhythmia. No acute ST segment changes. Normal intervals. Slight left axis deviation. Rhythm Strip Diag. Results Rhythm Strip Time: 13:27 EP Interpretation: yes Rate: 100s Rhythm: NSR, no PVC's Other Impression Sinus arrhythmia tachycardia Reevaluation Time: 15:36 Last Vital Signs Date Time Temp Pulse Resp B/P (MAP) Pulse Ox O2 Delivery O2 Flow Rate FiO2 06/11/19 12:25 99.9 110 20 184/96 (125) 99 Room Air Reevaluation Impression Labs have returned largely within normal limits. There are 2+ leukocyte esterase and multiple white cells on urinalysis suggestive acute urinary tract infection. We will give a gram of Rocephin and admit to medical floor for further management. Disposition: ADMITTED INPATIENT Condition: Serious Maykel Christensen MD Jun 11, 2019 13:29
[2019-06-11] MEDS ORDERED: LORazepam Inj 2mg/ml 1ml IV PRN (14:15)
[2019-06-11] MEDS ORDERED: Morphine Sulfate 2mg/ml Inj(IV/IM USE ONLY) IVP PRN (14:15)
[2019-06-11 14:17] LABS: BASOPHILS % (AUTO) 0.7 % (0.0-2.0); EOSINOPHILS % (AUTO) 0.5 % (0.0-3.0); HEMATOCRIT 43.3 % (37.0-47.0); HEMOGLOBIN 13.9 G/DL (12.0-16.0); LYMPHOCYTES % (AUTO) 14.3 % (20.0-45.0); MEAN CORPUSCULAR VOLUME 89 FL (80-99); MONOCYTES % (AUTO) 5.6 % (1.0-10.0); PLATELET COUNT 216 K/UL (150-450); RED BLOOD COUNT 4.87 M/UL (4.20-5.40); RED CELL DISTRIBUTION WIDTH 12.9 % (11.6-14.8); WHITE BLOOD COUNT 7.3 K/UL (4.8-10.8)
--- NOTE | 2019-06-11 14:18 | NUR ---
ED SKIN ASSESSMENT: PT PRESENTS WITH DRESSING APPLIED TO COCCYX AREA. DRESSING REMOVED WHICH REVEALED LARGE OPEN PRESSURE ULCER. PHOTOS TAKEN AND UPLOADED TO EMR.
[2019-06-11 14:27] LABS: ALANINE AMINOTRANSFERASE 8 U/L (12-78); ALBUMIN 3.2 G/DL (3.4-5.0); ALBUMIN/GLOBULIN RATIO 0.7 (1.0-2.7); ALKALINE PHOSPHATASE 115 U/L (46-116); ANION GAP 9 mmol/L (5-15); ASPARTATE AMINO TRANSFERASE 20 U/L (15-37); BILIRUBIN,TOTAL 0.8 MG/DL (0.2-1.0); BLOOD UREA NITROGEN 21 mg/dL (7-18); CALCIUM 10.7 MG/DL (8.5-10.1); CARBON DIOXIDE 24 MMOL/L (21-32); CHLORIDE 106 MMOL/L (98-107); CREATININE 0.4 MG/DL (0.55-1.30); POTASSIUM 4.3 MMOL/L (3.5-5.1); SODIUM 139 MMOL/L (136-145)
[2019-06-11 14:29] LABS: APPEARANCE,URINE CLEAR; BILIRUBIN, URINE NEGATIVE (NEGATIVE); GLUCOSE, URINE (UA) NEGATIVE (NEGATIVE); KETONES,URINE NEGATIVE (NEGATIVE); LEUKOCYTE ESTERASE ,URINE 1+ (NEGATIVE); NITRITE,URINE NEGATIVE (NEGATIVE); PH,URINE 6 (4.5-8.0); PROTEIN,URINE 2+ (NEGATIVE); UROBILINOGEN,URINE NORMAL MG/DL (0.0-1.0)
[2019-06-11 14:32] LABS: COLOR,URINE YELLOW
[2019-06-11] MEDS ORDERED: cefTRIAXone 1 GM in NS 55 ML IVPB ONE (15:15)
--- NOTE | 2019-06-11 15:15 | NUR ---
NURSE NOTES: received report from CRISTY Laguerre, ER. patient will be admitted to [facility] under Tony Stinson care. dX of place ment d/t FTT
--- NOTE | 2019-06-11 15:17 | Diagnostic Imaging Report ---
Indication: Dyspnea Comparison: 10/25/2018 A single view chest radiograph was obtained. Findings: Hilar vessels are prominent. The heart is enlarged. Pulmonary vascularity is mildly prominent but there is no overt CHF. The lung volumes are low. There is suggestion of mild platelike atelectasis. The bones are osteopenic. The patient's head partially obscures the left lung apex. IMPRESSION: Mild basal atelectasis.
--- NOTE | 2019-06-11 15:23 | NUR ---
ED Nurse Note: [facility] UNIT CALLED FOR PT REPORT. REPORT GIVEN TO CRISTY RIDLEY. RN READY TO ACCEPT PT. PT TAKEN UP TO US UNIT VIA GURNEY WITH ALL BELONGINGS ACCOMPANIED BY EMT. VSS.
--- NOTE | 2019-06-11 15:45 | NUR ---
NURSE NOTES: patient admitted to 409/ under carmencita Stinson. alert. disoriented. non verbal. no respiratory distress noted. no facial grimacing during care. IV on RAC 20g. intact. NPO for GT placement. bed in the lowest position and locked. alarm on. call light within reach. will continue to provide plan of care.
[2019-06-11] MEDS: D5 1/2NS 1,000 ML IV SCH (16:49)
--- NOTE | 2019-06-11 17:30 | History and Physical Report ---
DATE OF ADMISSION: 06/11/2019 TIME: At 1 p.m. CONSULTANTS: 1. Gilbert Hooks M.D. 2. Aleksandr Sibley M.D. CHIEF COMPLAINT: Failure to thrive, dehydration, weakness, family wanted G-tube. BRIEF HISTORY: This is a 73-year-old female from [facility], presented with history of increasing lethargy as well as failure to thrive. Family has discussed with staff and wanted to put a G-tube. The patient is currently weak, confused in bed, in the ER [place] station. No complaint. REVIEW OF SYSTEMS: Unable to obtain secondary to the patient's condition. PAST MEDICAL HISTORY: Includes Parkinson, anemia, dementia. PAST SURGICAL HISTORY: Unknown. ALLERGIES: Denies. MEDICATIONS: We will obtain list shortly. SOCIAL HISTORY: No smoking. No alcohol. No intravenous drug abuse. FAMILY HISTORY: Noncontributory. PHYSICAL EXAMINATION: GENERAL: Calm in bed, not really responding to questions. VITAL SIGNS: Temperature 99, pulse 110, respirations 20, blood pressure 184/96. CARDIOVASCULAR: No murmur. LUNGS: Distant and clear. ABDOMEN: Bowel sounds positive. Nontender. Nondistended. EXTREMITIES: Show no cyanosis or edema. NEUROLOGIC: The patient actually moves all extremities, slightly weak. Neck is slightly hunched forward. LABORATORY DATA: Laboratories are pending. ASSESSMENT: 1. Failure to thrive. 2. Dehydration. 3. Weakness. 4. Parkinson. 5. Dementia. 6. Anemia. 7. G-tube placement. PLAN: 1. Check labs when become available. 2. Resume home medications. 3. PT and dietary evaluation. 4. CBC, BMP in the morning. 5. G-tube per GI. 6. We will continue to follow this patient. Tony Dupree D.O. DR: SAM JOB#: [id number] CC:
[2019-06-11] MEDS ORDERED: cefTRIAXone 1 GM in D5W 110 ML IVPB SCH ×2 (18:15→18:30)
[2019-06-11] MEDS: Levodopa/Carbidopa 25/100 tab ORAL SCH (18:34)
--- NOTE | 2019-06-11 19:26 | NUR ---
HAND-OFF: Report given to BLAZE Haley.
--- NOTE | 2019-06-11 19:30 | Consultation ---
DATE OF CONSULTATION: GASTROENTEROLOGY CONSULTATION CONSULTING PHYSICIAN: Gilbert Hooks M.D. REFERRING PHYSICIAN: Tony Dupree D.O. CHIEF COMPLAINT: Failure to thrive. HISTORY OF PRESENT ILLNESS: Most of the history was obtained per chart. The patient is in assisted, 73-year-old, was referred from assisted and the family requested for G-tube placement. PAST MEDICAL HISTORY: 1. Parkinson disease. 2. Dysphagia. 3. Failure to thrive. 4. Functional quadriplegia. 5. Hypertension. 6. Depression. 7. UTI. 8. Anemia. ALLERGIES: No known drug allergies. MEDICATIONS: Please see medication reconciliation list. SOCIAL HISTORY: The patient is currently in a assisted. No recent history of tobacco, alcohol, or drug abuse. FAMILY HISTORY: Noncontributory. REVIEW OF SYSTEMS: Unable to obtain. PHYSICAL EXAMINATION: VITAL SIGNS: Temperature 99.9, pulse is 110, respirations 20, blood pressure is 184/96. HEENT: Normocephalic and atraumatic. Sclerae anicteric. NECK: Supple. No evidence of obvious lymphadenopathy. CARDIOVASCULAR: Regular rate and rhythm. Plus S1 and S2. No obvious murmur. LUNGS: Decreased breath sounds bilaterally based on the supine exam. ABDOMEN: Soft and nontender. No rebound. No guarding. No peritoneal sign. EXTREMITIES: No cyanosis. No clubbing. No edema. NEUROLOGIC: Nonfocal. LABORATORY DATA: White count is 7.3, hemoglobin 13.9, hematocrit 43, platelet count is 216,000. ASSESSMENT AND PLAN: This is a 73-year-old female, who was referred to us for G-tube placement from a assisted with failure to thrive. Plan to make her NPO after midnight except for medications. Recheck the labs for tomorrow. We will obtain the consent for endoscopy and G-tube placement for tomorrow. I want to thank, Dr. Tony Dupree, for this kind referral. Gilbert Hooks M.D. DR: XIOMARA JOB#: [id number] CC: Tony Dupree D.O.
[2019-06-11 20:00] VITALS: BP 100/64
--- NOTE | 2019-06-11 20:00 | NUR ---
NURSE NOTES: RECEIVED PATIENT LYING IN BED, EYES OPEN, NON VERBAL, ALL NEEDS ANTICIPATED AND MET BY NURSING STAFF, NO SIGNS AND SYMPTOMS OF PAIN, EXCESSIVE DROOLING NOTED, SUCTION PRN. NO SIGNS AND SYMPTOMS OF ACUTE CARDIO RESPIRATORY DISTRESS/SHORTNESS OF BREATH, NO EDEMA NOTED. NOTED WITH BILATERAL FOOT DROP, UPPER AND LOWER EXTREMITIES CONTRACTED, REQUIRE MAXIMUM ASSISTANCE WITH ADLS, REPOSITION EVERY TWO HOURS FOR COMFORT/PRESSURE RELIEF. EGD/PED PLACEMENT 06/12/19, CONSENTS SIGNED BY DAUGHTER, PATIENT REMAIN NPO EXCEPT ICE CHIPS/MEDS. SIDE RAILS UP X3/BED IN LOWEST POSITION FOR SAFETY, FREQUENT ROUNDING FOR SAFETY/NEEDS. NAD.
[2019-06-11] MEDS: Metoprolol Succinate XL 25mg tab ORAL SCH (21:39)
[2019-06-11] MEDS: Heparin 5000 units/ml inj SUBQ SCH (21:40)
[2019-06-12] VITALS (11 sets, daily range): BP systolic 82–126; BP diastolic 52–71
[2019-06-12] MEDS: Levodopa/Carbidopa 25/100 tab ORAL SCH ×4 (00:24→17:26)
--- NOTE | 2019-06-12 06:47 | NUR ---
NURSE NOTES: RESTED WELL THROUGHOUT THE NIGHT, SAFETY MAINTAINED. NO SIGNIFICANT CHANGE OF CONDITION NOTED THROUGHOUT THE NIGHT. REMAINED NPO EXCEPT ICE CHIPS/MEDS.
[2019-06-12 07:09] LABS: BASOPHILS % (AUTO) 0.6 % (0.0-2.0); EOSINOPHILS % (AUTO) 0.7 % (0.0-3.0); HEMATOCRIT 38.7 % (37.0-47.0); HEMOGLOBIN 12.8 G/DL (12.0-16.0); LYMPHOCYTES % (AUTO) 35.8 % (20.0-45.0); MEAN CORPUSCULAR VOLUME 88 FL (80-99); NEUTROPHILS % (AUTO) 54.1 % (45.0-75.0); PLATELET COUNT 227 K/UL (150-450); RED BLOOD COUNT 4.41 M/UL (4.20-5.40); RED CELL DISTRIBUTION WIDTH 12.7 % (11.6-14.8); WHITE BLOOD COUNT 7.5 K/UL (4.8-10.8)
--- NOTE | 2019-06-12 07:48 | NUR ---
NURSE NOTES: received report from CRISTY Haley. patient in bed. alert. limited verbal communication. no respiratory distress noted. no facial grimacing noted. IV on RAC20g. running fluid. bed in the lowest position. call light within reach. alam on. will continue to provide plan of care.
[2019-06-12 07:51] LABS: ALANINE AMINOTRANSFERASE 6 U/L (12-78); ALBUMIN 3.2 G/DL (3.4-5.0); ALBUMIN/GLOBULIN RATIO 0.7 (1.0-2.7); ALKALINE PHOSPHATASE 109 U/L (46-116); ANION GAP 9 mmol/L (5-15); ASPARTATE AMINO TRANSFERASE 16 U/L (15-37); BILIRUBIN,TOTAL 0.9 MG/DL (0.2-1.0); BLOOD UREA NITROGEN 14 mg/dL (7-18); CALCIUM 10.5 MG/DL (8.5-10.1); CARBON DIOXIDE 24 MMOL/L (21-32); CHLORIDE 107 MMOL/L (98-107); CREATININE 0.4 MG/DL (0.55-1.30); SODIUM 140 MMOL/L (136-145)
--- NOTE | 2019-06-12 08:18 | Anethesia Preoperative Eval ---
Anesthesia Pre-op PMH/ROS General Date of Evaluation: Jun 12, 2019 Time of Evaluation: 09:34 Anesthesiologist: Kasey Sanchez CRNA ASA Score: ASA 3 Mallampati Score Class I : Soft palate, uvula, fauces, pillars visible Class II: Soft palate, uvula, fauces visible Class III: Soft palate, base of uvula visible Class IV: Only hard plate visible Mallampati Classification: Class II Surgeon: Jessee Diagnosis: Failure to thrive, dysphagia Surgical Procedure: PEG insertion Family History: no anesthesia problems Allergies: Coded Allergies: No Known Allergies (Unverified , 11/22/15) Medications: see eMAR Patient NPO?: Yes NPO Date: Jun 12, 2019 NPO Time: 00:00 Past Medical History Cardiovascular: Reports: HTN, arrhythmia - Atrial fibrillation; Denies: CAD, MT, valve dz, other Pulmonary: Denies: asthma, COPD, AGUSTINA, other Gastrointestinal/Genitourinary: Reports: other - dysphagia, FTT; Denies: GERD, CRI, ESRD Neurologic/Psychiatric: Reports: dementia; Denies: CVA, depression/anxiety, TIA, other Endocrine: Denies: DM, hypothyroidism, steroids, other HEENT: Denies: cataract (L), cataract (R), glaucoma, MINTO (L), MINTO (R), other Hematology/Immune: Reports: anemia; Denies: DVT, bleeding disorder, other Musculoskeletal/Integumentary: Denies: OA, RA, DJD, DDD, edema, other PMH Narrative: as noted above PSxH Narrative: see H & P Anesthesia Pre-op Phys. Exam Physician Exam Last Vital Signs Date Time Temp Pulse Resp B/P (MAP) Pulse Ox O2 Delivery O2 Flow Rate FiO2 06/12/19 04:00 98.4 84 19 120/66 (84) 95 06/11/19 21:00 Room Air Constitutional: NAD Cardiovascular: RRR Respiratory: CTA Gastrointestinal: S/NT/ND Airway Exam Mallampati Score: Class II MO: full Neck: contractured, limited ROM TMD: 3 FB ROM: full Teeth: missing Anesthesia Pre-op A/P Labs Hematology Test 06/11/19 13:37 06/12/19 05:30 White Blood Count 7.3 K/UL (4.8-10.8) 7.5 K/UL (4.8-10.8) Red Blood Count 4.87 M/UL (4.20-5.40) 4.41 M/UL (4.20-5.40) Hemoglobin 13.9 G/DL (12.0-16.0) 12.8 G/DL (12.0-16.0) Hematocrit 43.3 % (37.0-47.0) 38.7 % (37.0-47.0) Mean Corpuscular Volume 89 FL (80-99) 88 FL (80-99) Mean Corpuscular Hemoglobin 28.6 PG (27.0-31.0) 29.0 PG (27.0-31.0) Mean Corpuscular Hemoglobin Concent 32.2 G/DL (32.0-36.0) 33.1 G/DL (32.0-36.0) Red Cell Distribution Width 12.9 % (11.6-14.8) 12.7 % (11.6-14.8) Platelet Count 216 K/UL (150-450) 227 K/UL (150-450) Mean Platelet Volume 6.8 FL (6.5-10.1) 6.8 FL (6.5-10.1) Neutrophils (%) (Auto) 79.0 % (45.0-75.0) H 54.1 % (45.0-75.0) Lymphocytes (%) (Auto) 14.3 % (20.0-45.0) L 35.8 % (20.0-45.0) Monocytes (%) (Auto) 5.6 % (1.0-10.0) 9.0 % (1.0-10.0) Eosinophils (%) (Auto) 0.5 % (0.0-3.0) 0.7 % (0.0-3.0) Basophils (%) (Auto) 0.7 % (0.0-2.0) 0.6 % (0.0-2.0) Coagulation Test 06/11/19 13:37 06/12/19 05:30 Prothrombin Time 10.4 SEC (9.30-11.50) 10.5 SEC (9.30-11.50) Prothromb Time International Ratio 1.0 (0.9-1.1) 1.0 (0.9-1.1) Activated Partial Thromboplast Time 27 SEC (23-33) Chemistry Test 06/11/19 13:37 06/12/19 05:30 Sodium Level 139 MMOL/L (136-145) 140 MMOL/L (136-145) Potassium Level 4.3 MMOL/L (3.5-5.1) 4.0 MMOL/L (3.5-5.1) Chloride Level 106 MMOL/L (98-107) 107 MMOL/L (98-107) Carbon Dioxide Level 24 MMOL/L (21-32) 24 MMOL/L (21-32) Anion Gap 9 mmol/L (5-15) 9 mmol/L (5-15) Blood Urea Nitrogen 21 mg/dL (7-18) H 14 mg/dL (7-18) Creatinine 0.4 MG/DL (0.55-1.30) L 0.4 MG/DL (0.55-1.30) L Estimat Glomerular Filtration Rate mL/min (>60) mL/min (>60) Glucose Level 128 MG/DL (74-106) H 101 MG/DL (74-106) Calcium Level 10.7 MG/DL (8.5-10.1) H 10.5 MG/DL (8.5-10.1) H Total Bilirubin 0.8 MG/DL (0.2-1.0) 0.9 MG/DL (0.2-1.0) Aspartate Amino Transf (AST/SGOT) 20 U/L (15-37) 16 U/L (15-37) Alanine Aminotransferase (ALT/SGPT) 8 U/L (12-78) L 6 U/L (12-78) L Alkaline Phosphatase 115 U/L (46-116) 109 U/L (46-116) Total Protein 7.9 G/DL (6.4-8.2) 7.6 G/DL (6.4-8.2) Albumin 3.2 G/DL (3.4-5.0) L 3.2 G/DL (3.4-5.0) L Globulin 4.7 g/dL 4.4 g/dL Albumin/Globulin Ratio 0.7 (1.0-2.7) L 0.7 (1.0-2.7) L Studies Pre-op Studies: EKG - A-fib Risk Assessment & Plan Assessment: ASA 3, ok to proceed Plan: MAC Pre-Antibiotics Drug: Kasey Willson CRNA Jun 12, 2019 08:18
[2019-06-12] MEDS: Heparin 5000 units/ml inj SUBQ SCH ×2 (09:00→21:06)
[2019-06-12] MEDS: Lisinopril 10mg tab ORAL SCH (09:00)
[2019-06-12] MEDS: Metoprolol Succinate XL 25mg tab ORAL SCH ×2 (09:00→21:00)
[2019-06-12] MEDS ORDERED: Lidocaine 1% MPF 10mg/ml 5ml ONE (09:30)
[2019-06-12] MEDS ORDERED: Propofol 200mg/20ml IV ONE (09:30)
--- NOTE | 2019-06-12 09:30 | NUR ---
NURSE NOTES: patient left unit stable condition for gt placement and EGD by Jessee Stinson. consent signed. IV on RAC intact.
--- NOTE | 2019-06-12 09:33 | Pre-Procedure Note/Attestation ---
Pre-Procedure Note/Attestation Complete Prior to Procedure Planned Procedure: not applicable Procedure Narrative: egd/peg Indications for Procedure Pre-Operative Diagnosis: dysphagia Attestation I attest that I discussed the nature of the procedure; its benefits; risks and complications; and alternatives (and the risks and benefits of such alternatives ), prior to the procedure, with the patient (or the patient's legal risk control field representative). I attest that, if there was a reasonable possibility of needing a blood transfusion, the patient (or the patient's legal risk control field representative) was given the [facility] standardized written summary, pursuant to the [place] Blood Safety Act ([place] Health and Safety Code # 1645, as amended). I attest that I re-evaluated the patient just prior to the surgery and that there has been no change in the patient's H&P, except as documented below: Gilbert Hooks MD Jun 12, 2019 09:33
[2019-06-12] MEDS ORDERED: cefOXitin 1gm Inj ONE (09:34)
--- NOTE | 2019-06-12 09:34 | General Progress Note ---
Assessment/Plan Problem List: (1) Failure to thrive SNOMED: 96711436 (2) Decreased oral intake ICD Codes: R63.8 - Other symptoms and signs concerning food and fluid intake SNOMED: 891979852 (3) UTI (urinary tract infection) ICD Codes: N39.0 - Urinary tract infection, site not specified SNOMED: 41520578 (4) Anemia ICD Codes: D64.9 - Anemia, unspecified SNOMED: 783442546 (5) Dementia ICD Codes: F03.90 - Unspecified dementia without behavioral disturbance SNOMED: 70846766 (6) Parkinson disease ICD Codes: G20 - Parkinson's disease SNOMED: 89586222 Status: stable, progressing Assessment/Plan: pt diet abx gtube cbc bmp am Subjective Constitutional: Reports: weakness Allergies: Coded Allergies: No Known Allergies (Unverified , 11/22/15) All Systems: reviewed and negative except above Subjective calm in bed sleepy awaitng gtube Objective Last 24 Hour Vital Signs Date Time Temp Pulse Resp B/P (MAP) Pulse Ox O2 Delivery O2 Flow Rate FiO2 06/12/19 08:00 97.9 68 18 96/60 (72) 94 06/12/19 04:00 98.4 84 19 120/66 (84) 95 06/12/19 00:00 99.0 91 21 114/71 (85) 95 06/11/19 21:39 102 126/76 06/11/19 21:00 Room Air 06/11/19 20:00 98.5 90 20 100/64 (76) 95 06/11/19 17:46 Room Air 06/11/19 15:23 99.8 98 18 172/94 98 Room Air 06/11/19 12:25 99.9 110 20 184/96 99 Room Air 06/11/19 12:25 99.9 110 20 184/96 (125) 99 Room Air 06/11/19 12:25 110 20 Room Air Intake and Output 06/11/19 06/12/19 18:59 06:59 Intake Total 50 ml 750 ml Output Total 0 ml Balance 50 ml 750 ml Intake Oral 90 ml IV Total 50 ml 660 ml Output Urine Total 0 ml # Voids 2 2 Laboratory Tests 06/11/19 13:37: White Blood Count 7.3, Red Blood Count 4.87, Hemoglobin 13.9, Hematocrit 43.3, Mean Corpuscular Volume 89, Mean Corpuscular Hemoglobin 28.6, Mean Corpuscular Hemoglobin Concent 32.2, Red Cell Distribution Width 12.9, Platelet Count 216, Mean Platelet Volume 6.8, Neutrophils (%) (Auto) 79.0H, Lymphocytes (%) (Auto) 14.3L, Monocytes (%) (Auto) 5.6, Eosinophils (%) (Auto) 0.5, Basophils (%) (Auto ) 0.7, Prothrombin Time 10.4, Prothromb Time International Ratio 1.0, Activated Partial Thromboplast Time 27, Sodium Level 139, Potassium Level 4.3, Chloride Level 106, Carbon Dioxide Level 24, Anion Gap 9, Blood Urea Nitrogen 21H, Creatinine 0.4L, Estimat Glomerular Filtration Rate , Glucose Level 128H, Calcium Level 10.7H, Total Bilirubin 0.8, Aspartate Amino Transf (AST/SGOT) 20, Alanine Aminotransferase (ALT/SGPT) 8L, Alkaline Phosphatase 115, Total Protein 7.9, Albumin 3.2L, Globulin 4.7, Albumin/Globulin Ratio 0.7L 06/11/19 14:00: Urine Color Yellow, Urine Appearance Clear, Urine pH 6, Urine Specific [place] 1.015, Urine Protein 2+H, Urine Glucose (UA) Negative, Urine Ketones Negative, Urine Blood 4+H, Urine Nitrite Negative, Urine Bilirubin Negative, Urine Urobilinogen Normal, Urine Leukocyte Esterase 1+H, Urine RBC TntcH, Urine WBC 10 -15H, Urine Squamous Epithelial Cells Few, Urine Bacteria Few 06/12/19 05:30: White Blood Count 7.5, Red Blood Count 4.41, Hemoglobin 12.8, Hematocrit 38.7, Mean Corpuscular Volume 88, Mean Corpuscular Hemoglobin 29.0, Mean Corpuscular Hemoglobin Concent 33.1, Red Cell Distribution Width 12.7, Platelet Count 227, Mean Platelet Volume 6.8, Neutrophils (%) (Auto) 54.1, Lymphocytes (%) (Auto) 35.8, Monocytes (%) (Auto) 9.0, Eosinophils (%) (Auto) 0.7, Basophils (%) (Auto ) 0.6, Prothrombin Time 10.5, Prothromb Time International Ratio 1.0, Sodium Level 140, Potassium Level 4.0, Chloride Level 107, Carbon Dioxide Level 24, Anion Gap 9, Blood Urea Nitrogen 14, Creatinine 0.4L, Estimat Glomerular Filtration Rate , Glucose Level 101, Calcium Level 10.5H, Total Bilirubin 0.9, Aspartate Amino Transf (AST/SGOT) 16, Alanine Aminotransferase (ALT/SGPT) 6L, Alkaline Phosphatase 109, Total Protein 7.6, Albumin 3.2L, Globulin 4.4, Albumin /Globulin Ratio 0.7L Height (Feet): 5 Height (Inches): 1.00 Weight (Pounds): 114 General Appearance: lethargic EENT: normal ENT inspection Neck: normal alignment Cardiovascular: normal peripheral pulses, normal rate, regular rhythm Respiratory/Chest: chest wall non-tender, lungs clear, normal breath sounds Abdomen: normal bowel sounds, non tender, soft Extremities: normal inspection Edema: no edema noted Arm (L), no edema noted Arm (R), no edema noted Leg (L), no edema noted Leg (R), no edema noted Pedal (L), no edema noted Pedal (R), no edema noted Generalized Neurologic: motor weakness Skin: normal pigmentation, warm/dry Tony Dupree DO Jun 12, 2019 09:34
[2019-06-12] MEDS ORDERED: NS 500ML IVPB ONE (09:40)
[2019-06-12] MEDS ORDERED: cefOXitin 1gm Inj IVP ONE (09:43)
--- NOTE | 2019-06-12 09:57 | Endoscopy Procedure Note ---
Endoscopy Procedure Note General Indication for Procedure: dysphagia,FTT Procedures Performed: EGD, PEG Operative Findings/Diagnosis: same Specimen: none Pt Tolerated Procedure Well: Yes Estimated Blood Loss: none Anesthesia Anesthesiologist: yg Anesthesia: MAC Inserted Devices Implant(s) used?: No GI Core Measures 50 yrs or older w/o bx or poly: Not Applicable 10yrs. F/U recommended: Not Applicable Gilbert Hooks MD Jun 12, 2019 09:57
--- NOTE | 2019-06-12 10:10 | Immediate Post-Op Evaluation ---
Immediate Post-Op Evalulation Immediate Post-Op Evalulation Procedure: PEG insertion Date of Evaluation: Jun 12, 2019 Time of Evaluation: 10:10 IV Fluids: 0.9 NS 200 ml Estimated Blood Loss: 3 Blood Pressure Systolic: 126 Blood Pressure Diastolic: 69 Pulse Rate: 58 Respiratory Rate: 20 O2 Sat by Pulse Oximetry: 100 Temperature (Fahrenheit): 97.7 Pain Score (1-10): 0 Nausea: No Vomiting: No Patient Status: reacts, patent Hydration Status: adequate Drug: cefoxitin 1 gm IV Given Within 1 Hr of Incision: Yes Time Given: 09:45 Kasey Sanchez CRNA Jun 12, 2019 10:10
--- NOTE | 2019-06-12 10:46 | NUR ---
PT NOTE Received MD order for PT evaluation, medical record reviewed. Spoke with nursing staff at SNF, patient is bedbound and dependent with all ADLs at baseline. Skilled inpatient PT intervention not warranted as patient is dependent with all mobility at baseline. Monse MUNIZ notified.
--- NOTE | 2019-06-12 11:00 | NUR ---
NURSE NOTES: patient came back to unit s/p gtube placement with stable condition. no respiratory distress noted. place patient in lowest bed and locked. call light within reach. a daughter at the bedside.
--- NOTE | 2019-06-12 11:10 | NUR ---
NURSE NOTES: received post surgery report from CRISTY Max. EGD and GT placement done. no abnormality founding.
--- NOTE | 2019-06-12 11:27 | 48 Hour Post Anesthesia Eval ---
Post Anesthesia Evaluation Procedure: PEG insertion Date of Evaluation: Jun 12, 2019 Time of Evaluation: 10:26 Blood Pressure Systolic: 120 0: 62 Pulse Rate: 71 Respiratory Rate: 15 Temperature (Fahrenheit): 97.5 O2 Sat by Pulse Oximetry: 100 Airway: patent Nausea: No Vomiting: No Pain Intensity: 0 Hydration Status: adequate Cardiopulmonary Status: stable Mental Status/LOC: patient returned to baseline Follow-up Care/Observations: per hospitalist Post-Anesthesia Complications: none Follow-up care needed: N/A Kasey Sanchez CRNA Jun 12, 2019 11:27
[2019-06-12] MEDS: D5 1/2NS 1,000 ML IV SCH (12:08)
--- NOTE | 2019-06-12 12:10 | NUR ---
CASE MANAGEMENT:REVIEW 73 YR OLD FEMALE BIBA FROM [facility] SI: DYSPHAGIA. FTT. UTI 99.9 110 184/96 99% ON RA BUN+21 GLUCOSE+128 IS: IVF@50/HR IV ROCEPHIN X1 CHEST XRAY BLOOD CX : TO MED/SURG DCP: RETURN TO [facility] PLAN: EGD/PEG
--- NOTE | 2019-06-12 12:41 | Consultation ---
History of Present Illness General Date patient seen: Jun 12, 2019 Chief Complaint: General Complaint Present Illness HPI 73-year-old female with history of Parkinson's disease, dysphagia, functional quadriplegia, hypertension and major depression, nonverbal, end stage parkinson presented to ER from snf for evaluation of failure to thrive and G- tube placement request. Patient cannot provide any history. Pt's daughter is at the bed site who provides history. PMH: Parkinsonism, dysphasia, hypertension, hyperlipidemia, MDD, functional quadriplegia Allergies: Coded Allergies: No Known Allergies (Unverified , 11/22/15) Medication History Scheduled Acetaminophen (Acetaminophen), 650 MG PO every 4 , (Reported) Amantadine Hcl* (Amantadine*), 100 MG ORAL TWICE A DAY, (Reported) Ascorbic Acid* (Vitamin C*), 250 MG ORAL TWICE A DAY, (Reported) Carbidopa/Levodopa 25-100 Mg* (Sinemet 25-100 Mg Tablet*), 1 TAB ORAL EVERY 6 HOURS, (Reported) Carbidopa/Levodopa 25-100 Mg* (Sinemet 25-100 Mg Tablet*), 1 TAB ORAL THREE TIMES A DAY, (Reported) Cefepime Hcl/D5w (Cefepime-Dextrose 2 Gm/50 Ml), 2 GM IVPB Q24H, (Reported) Cefepime Hcl/D5w (Cefepime-Dextrose 2 Gm/50 Ml), 2 GM IVPB Q24H, (Reported) Clonidine Hcl* (Catapres*), 0.1 MG ORAL EVERY 6 HOURS, (Reported) Docusate Sodium* (Docusate Sodium*), 100 MG ORAL TWICE A DAY, (Reported) Heparin Sodium,Porcine (Heparin Sodium), 5,000 UNITS SQ Q12HR, (Reported) Levodopa/Carbidopa (Carbidopa-Levo ER 25-100 Tab), 1 TAB ORAL TWICE A DAY, ( Reported) Levodopa/Carbidopa (Carbidopa-Levo ER 25-100 Tab), 1 TAB ORAL THREE TIMES A DAY, (Reported) Lisinopril* (Lisinopril*), 10 MG ORAL DAILY, (Reported) Metoprolol Succinate* (Metoprolol Succinate*), 25 MG ORAL BID, (Reported) Metoprolol Tartrate* (Metoprolol Tartrate*), 25 MG ORAL Q12HR, (Reported) Multivitamin (Multi Vitamin Daily), 1 TAB ORAL DAILY, (Reported) Multivitamin with Minerals (Multivitamins with Minerals), 1 TAB ORAL DAILY, ( Reported) Nifedipine Xl* (Procardia Xl*), 90 MG ORAL DAILY, (Reported) Pantoprazole* (Protonix*), 40 MG ORAL DAILY, (Reported) Pramipexole (Mirapex), 0.25 MG ORAL THREE TIMES A DAY, (Reported) Pramipexole (Mirapex), 0.5 MG ORAL THREE TIMES A DAY, (Reported) Pramipexole* (Mirapex*), 0.25 MG ORAL THREE TIMES A DAY, (Reported) Prazosin Hcl (Prazosin Hcl), 1 MG PO TID, (Reported) Prazosin Hcl* (Minipress*), 1 MG PO TID, (Reported) Scheduled PRN Acetaminophen* (Tylenol*), 325 MG RECTAL Q6HR PRN for Mild Pain/Temp > 100.5, ( Reported) Acetaminophen* (Acetaminophen 325MG Tablet*), 650 MG ORAL Q4H PRN for For Pain, (Reported) Bisacodyl (Dulcolax), 10 MG RC HS PRN for Constipation, (Reported) Guaifenesin/Codeine Phos* (Robitussin Ac*), 30 ML ORAL Q6H PRN for For Cough, ( Reported) Ondansetron (Zofran), 4 MG ORAL Q6H PRN for Nausea & Vomiting, (Reported) Zolpidem Tartrate* (Ambien*), 5 MG ORAL BEDTIME PRN for Insomnia, (Reported) Miscellaneous Medications Mag Hydrox/Al Hydrox/Simeth (Maalox Maximum Strength Susp), 30 ML PO, (Reported) Patient History Healthcare decision maker N Resuscitation status Full Code Advanced Directive on File Past Medical/Surgical History Past Medical/Surgical History: (1) Paroxysmal A-fib (2) Elevated CEA (3) Dementia (4) Parkinson disease (5) At high risk for aspiration (6) Anemia Review of Systems Endocrine: Reports: no symptoms Hematologic/Lymphatic: Reports: no symptoms All Other Systems: negative except mentioned in HPI Physical Exam General Appearance: cachetic, thin Lines, tubes and drains: peripheral HEENT: normocephalic, anicteric Neck: non-tender, supple Respiratory/Chest: chest wall non-tender, lungs clear, normal breath sounds Breasts: no masses Cardiovascular/Chest: normal peripheral pulses, normal rate Abdomen: hyperactive bowel sounds Genitourinary/Rectal: normal genital exam Extremities: normal range of motion, non-tender Last 24 Hour Vital Signs Date Time Temp Pulse Resp B/P (MAP) Pulse Ox O2 Delivery O2 Flow Rate FiO2 06/12/19 12:00 98.5 92 18 111/67 (82) 95 06/12/19 11:27 71 15 100 06/12/19 10:30 97.5 71 15 120/62 100 Nasal Cannula 3 06/12/19 10:15 55 16 118/60 100 Nasal Cannula 3 06/12/19 10:10 59 18 121/64 100 Nasal Cannula 3 06/12/19 10:10 58 20 100 06/12/19 10:03 97.7 56 20 126/69 100 Nasal Cannula 3 06/12/19 09:00 68 96/60 06/12/19 09:00 96/60 06/12/19 09:00 Room Air 06/12/19 08:00 97.9 68 18 96/60 (72) 94 06/12/19 04:00 98.4 84 19 120/66 (84) 95 06/12/19 00:00 99.0 91 21 114/71 (85) 95 06/11/19 21:39 102 126/76 06/11/19 21:00 Room Air 06/11/19 20:00 98.5 90 20 100/64 (76) 95 06/11/19 17:46 Room Air 06/11/19 15:23 99.8 98 18 172/94 98 Room Air Intake and Output 06/11/19 06/12/19 19:00 07:00 Intake Total 50 ml 750 ml Output Total 0 ml Balance 50 ml 750 ml Intake Oral 90 ml IV Total 50 ml 660 ml Output Urine Total 0 ml # Voids 2 2 Laboratory Tests Test 06/11/19 13:37 06/11/19 14:00 06/12/19 05:30 White Blood Count 7.3 K/UL (4.8-10.8) 7.5 K/UL (4.8-10.8) Red Blood Count 4.87 M/UL (4.20-5.40) 4.41 M/UL (4.20-5.40) Hemoglobin 13.9 G/DL (12.0-16.0) 12.8 G/DL (12.0-16.0) Hematocrit 43.3 % (37.0-47.0) 38.7 % (37.0-47.0) Mean Corpuscular Volume 89 FL (80-99) 88 FL (80-99) Mean Corpuscular Hemoglobin 28.6 PG (27.0-31.0) 29.0 PG (27.0-31.0) Mean Corpuscular Hemoglobin Concent 32.2 G/DL (32.0-36.0) 33.1 G/DL (32.0-36.0) Red Cell Distribution Width 12.9 % (11.6-14.8) 12.7 % (11.6-14.8) Platelet Count 216 K/UL (150-450) 227 K/UL (150-450) Mean Platelet Volume 6.8 FL (6.5-10.1) 6.8 FL (6.5-10.1) Neutrophils (%) (Auto) 79.0 % (45.0-75.0) H 54.1 % (45.0-75.0) Lymphocytes (%) (Auto) 14.3 % (20.0-45.0) L 35.8 % (20.0-45.0) Monocytes (%) (Auto) 5.6 % (1.0-10.0) 9.0 % (1.0-10.0) Eosinophils (%) (Auto) 0.5 % (0.0-3.0) 0.7 % (0.0-3.0) Basophils (%) (Auto) 0.7 % (0.0-2.0) 0.6 % (0.0-2.0) Prothrombin Time 10.4 SEC (9.30-11.50) 10.5 SEC (9.30-11.50) Prothromb Time International Ratio 1.0 (0.9-1.1) 1.0 (0.9-1.1) Activated Partial Thromboplast Time 27 SEC (23-33) Sodium Level 139 MMOL/L (136-145) 140 MMOL/L (136-145) Potassium Level 4.3 MMOL/L (3.5-5.1) 4.0 MMOL/L (3.5-5.1) Chloride Level 106 MMOL/L (98-107) 107 MMOL/L (98-107) Carbon Dioxide Level 24 MMOL/L (21-32) 24 MMOL/L (21-32) Anion Gap 9 mmol/L (5-15) 9 mmol/L (5-15) Blood Urea Nitrogen 21 mg/dL (7-18) H 14 mg/dL (7-18) Creatinine 0.4 MG/DL (0.55-1.30) L 0.4 MG/DL (0.55-1.30) L Estimat Glomerular Filtration Rate mL/min (>60) mL/min (>60) Glucose Level 128 MG/DL (74-106) H 101 MG/DL (74-106) Calcium Level 10.7 MG/DL (8.5-10.1) H 10.5 MG/DL (8.5-10.1) H Total Bilirubin 0.8 MG/DL (0.2-1.0) 0.9 MG/DL (0.2-1.0) Aspartate Amino Transf (AST/SGOT) 20 U/L (15-37) 16 U/L (15-37) Alanine Aminotransferase (ALT/SGPT) 8 U/L (12-78) L 6 U/L (12-78) L Alkaline Phosphatase 115 U/L (46-116) 109 U/L (46-116) Total Protein 7.9 G/DL (6.4-8.2) 7.6 G/DL (6.4-8.2) Albumin 3.2 G/DL (3.4-5.0) L 3.2 G/DL (3.4-5.0) L Globulin 4.7 g/dL 4.4 g/dL Albumin/Globulin Ratio 0.7 (1.0-2.7) L 0.7 (1.0-2.7) L Urine Color Yellow Urine Appearance Clear Urine pH 6 (4.5-8.0) Urine Specific [place] 1.015 (1.005-1.035) Urine Protein 2+ (NEGATIVE) H Urine Glucose (UA) Negative (NEGATIVE) Urine Ketones Negative (NEGATIVE) Urine Blood 4+ (NEGATIVE) H Urine Nitrite Negative (NEGATIVE) Urine Bilirubin Negative (NEGATIVE) Urine Urobilinogen Normal MG/DL (0.0-1.0) Urine Leukocyte Esterase 1+ (NEGATIVE) H Urine RBC Tntc /HPF (0 - 2) H Urine WBC 10-15 /HPF (0 - 2) H Urine Squamous Epithelial Cells Few /LPF (NONE/OCC) Urine Bacteria Few /HPF (NONE) Microbiology Date/Time Source Procedure Growth Status 06/11/19 14:00 Urine,Clean Catch Urine Culture - Preliminary NO GROWTH Resulted Height (Feet): 5 Height (Inches): 1.00 Weight (Pounds): 114 Medications Current Medications Medications (Trade) Dose Ordered Sig/Alex Route PRN Reason Start Time Stop Time Status Last Admin Dose Admin Carbidopa/Levodopa (Sinemet 25/100) 1 tab EVERY 6 HOURS ORAL 06/11/19 18:00 07/11/19 17:59 06/12/19 12:07 Dextrose (Dextrose 50%) 25 ml Q30M PRN IV Hypoglycemia 06/11/19 14:15 07/11/19 14:14 Dextrose (Dextrose 50%) 50 ml Q30M PRN IV Hypoglycemia 06/11/19 14:15 07/11/19 14:14 Dextrose/Sodium Chloride 1,000 ml @ 50 mls/hr Q20H IV 06/11/19 16:00 07/11/19 15:59 06/12/19 12:08 Heparin Sodium (Porcine) (Heparin 5000 units/ml) 5,000 units EVERY 12 HOURS SUBQ 06/11/19 21:00 07/11/19 20:59 06/11/19 21:40 Lisinopril (Zestril) 10 mg DAILY ORAL 06/12/19 09:00 07/12/19 08:59 Lorazepam (Ativan 2mg/ml 1ml) 0.5 mg Q4H PRN IV For Anxiety 06/11/19 14:15 06/18/19 14:14 Metoprolol Succinate (Toprol XL) 25 mg Q12HR ORAL 06/11/19 21:00 07/11/19 20:59 06/11/19 21:39 Morphine Sulfate (Morphine Sulfate) 1 mg Q4H PRN IVP For Pain 06/11/19 14:15 06/18/19 14:14 Ondansetron HCl (Zofran) 4 mg Q6H PRN IVP Nausea & Vomiting 06/11/19 14:15 07/11/19 14:14 Pramipexole (Mirapex) 0.25 mg THREE TIMES A DAY ORAL 06/11/19 18:00 07/11/19 17:59 06/12/19 12:07 Prazosin HCl (Minipress) 1 mg Q8HR ORAL 06/11/19 22:00 07/11/19 21:59 06/12/19 06:15 Assessment/Plan Problem List: (1) At high risk for aspiration ICD Codes: Z91.89 - Other specified personal risk factors, not elsewhere classified SNOMED: 611905984 (2) Parkinson disease ICD Codes: G20 - Parkinson's disease SNOMED: 40416454 (3) Anemia ICD Codes: D64.9 - Anemia, unspecified SNOMED: 926866862 (4) Dementia ICD Codes: F03.90 - Unspecified dementia without behavioral disturbance SNOMED: 31858314 Assessment/Plan: aspiration precaution Gtube is warranted considering the family request for it frequent suctioning check electrolytes dvt prophylaxis continue Parkinson meds. Aleksandr Sibley MD Jun 12, 2019 12:40
--- NOTE | 2019-06-12 12:49 | NUR ---
RD ASSESSMENT & RECOMMENDATIONS SEE CARE ACTIVITY FOR COMPLETE ASSESSMENT DAILY ESTIMATED NEEDS: Needs based on Wound, underweight/ 49kg 30-35 kcals/kg 2247-3838 total kcals 1.5-2.0 g protein/kg 73-98 g total protein 25-30 mL/kg 5695-6074 total fluid mLs NUTRITION DIAGNOSIS: * Increased kcal/prot needs R/T wound healing, underweight status, progressive wt loss as evidenced by admitted w/ advanced sacral wound, eval pending, low BMI per guidelines w/ 89% IBW, possible progressive wt loss of 18lbs/14.4% in 1 year * Swallowing difficulty R/T dysphagia, h/o Parkinson's disease as evidenced by pt on pureed texture diet [employer], 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 CURRENT TF: Vital AF 1.2 @ 60ml/hr x 24 hrs ordered ENTERAL NUTRITION RECOMMENDATIONS: Jevity 1.2 @ 58ml/hr x 24 hrs to provide 1392ml, 1670kcal, 77g prot, 1123ml free water * Initiate Jevity 1.2 @ 18ml/hr x 6 hrs, advance 10ml q 4-6 hrs as tolerated to goal rate * HOB over 30 degrees/ water flush per MD ADDITIONAL RECOMMENDATIONS: * Calibrated bedscale wt for accurate CBW -> weekly wt monitoring * Monitor lytes daily w/ TF, replete as needed: high risk for refeeding * Wound healing: Add Vit C 500mg QD : Add ZnSO4 220mg QD x 10 days : Once TF well tolerated, add Kevin 1pkt BID
--- NOTE | 2019-06-12 13:00 | NUR ---
NURSE NOTES: Vital AF 1.2 is not available at this time. Ripening Room Operator recommended Jevity 1.2 as equivalent feeding. notified Dr. roy and received order Jevity 1.2@58. order noted and carried out.
--- NOTE | 2019-06-12 13:44 | NUR ---
NURSE NOTES:WOUND CARE NOTES:Pt presented on admission with full thickness sacral pressure injury. Base of wound has 75% slough ,25% viable. (L)1.9cm x (W)3.5cm. Scattered areas of maceration along borders. Mixed pink epithelial and hyperpigmentation periwound. Additionally two small wounds noted to R and L buttocks within area of hyperpigmentation. R and L heels are both soft but easily blanchable.No other skin concerns noted. Tx.Plan: Cleanse sacral wound with Saline. Apply Therahoney. Apply Moisture Barrier paste periwound. Cover with Optifoam drsg. Change every 3 days and prn. Apply Cavilon Skin BArrier to both heels. Cover each heel with Optifoam drsg. Change every 7 days and prn. APM/YOLY Mattress overlay. Reposition at least every 2hours or as tolerated. Off-load heels with pillow.
--- NOTE | 2019-06-12 13:54 | NUR ---
REFERRED FOR SWALLOW EVALUATION BY DR REES, SEE FULL REPORT TO FOLLOW. DYSPHAGIA RISK FACTORS FOR THIS 73 Y.O. NEPALI-SPEAKING FEMALE: ACUTE ISSUES: FTT, DYSPHAGIA, FAMILY WANTS GTUBE, WEAKNESS H/O DEMENTIA, PD (TAKES SINEMET), SEPSIS, GERD, ANXIETY, PNA. H/O SIGNIFICANT MILD-MODERATE OROPHARYNGEAL AND ESOPHAGEAL DYSPHAGIA (SEE MOD BARIUM SWALLOW STUDY MBSS) AND SWALLOW EVAL OCT 2015), PATIENT ALSO HAD A MORE RECENT MBSS AT [facility] 02/26/2019 THAT SHOWED A SEVERE ORAL AND MILD PHARYNGEAL DYSPHAGIA W/O ASPIRATION BUT LIKELY HAD ASPIRATION RISK (ONLY RADIOLOGIST REPORT AVAILABLE). PER HER DTR, PT WAS CLEARED FOR PO DIET OF PUREED AND THIN LIQUIDS BUT HAD POOR INTAKE. PER SNF RECORDS, PT ON A REINA FORTIFIED PUREED DIET WITH THIN LIQUIDS. STILL AWAITING THE SPEECH PATHOLOGIST REPORT FOR SPECIFIC ASPIRATION PRECAUTIONS. 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 IF PRECAUTIONS RECEIVED, CONSIDER ALLOWING PATIENT TO HAVE REINA FORTIFIED PUREED AND THIN LIQUIDS FOR ORAL GRATIFICATION (HALF PORTIONS ONLY SINCE GETTING PEG FEEDINGS AND DOES NOT EAT MUCH) USING POSTED ASPIRATION PRECAUTIONS (FROM THAT REPORT). OK TO CALL [facility] IF INDICATED TO INTERPRET REPORT AND RECOMMENDATIONS ([phone]). CONTINUE WITH NONORAL FEEDINGS AND ORAL CARE D/W CRISTY RIDLEY AND PT'S DTR LEONARDO.
--- NOTE | 2019-06-12 14:53 | NUR ---
UPDATED SWALLOW/SPEECH THERAPY NOTE AND EVALUATION: REFERRED FOR SWALLOW EVALUATION BY DR REES, SEE FULL REPORT TO FOLLOW. DYSPHAGIA RISK FACTORS FOR THIS 73 Y.O. VIETNAMESE-SPEAKING FEMALE: ACUTE ISSUES: FTT, DYSPHAGIA, FAMILY WANTS GTUBE, WEAKNESS H/O DEMENTIA, PD (TAKES SINEMET), SEPSIS, GERD, ANXIETY, PNA (NONE SINCE SEPTEMBER AND SHE HAS BEEN ON PUREED AND THIN LIQUIDS PER HER DTR) H/O SIGNIFICANT MILD-MODERATE OROPHARYNGEAL AND ESOPHAGEAL DYSPHAGIA (SEE MOD BARIUM SWALLOW STUDY MBSS) AND SWALLOW EVAL OCT 2015), PATIENT ALSO HAD A MORE RECENT MBSS AT [facility] 02/26/2019 THAT SHOWED A SEVERE ORAL AND MILD PHARYNGEAL DYSPHAGIA W/O ASPIRATION BUT LIKELY HAD ASPIRATION RISK (ONLY RADIOLOGIST REPORT AVAILABLE). PER HER DTR, PT WAS CLEARED FOR PO DIET OF PUREED AND THIN LIQUIDS BUT HAD POOR INTAKE. PER SNF RECORDS, PT ON A REINA FORTIFIED PUREED DIET WITH THIN LIQUIDS. STILL AWAITING THE SPEECH PATHOLOGIST MBSS REPORT FOR SPECIFIC ASPIRATION PRECAUTIONS. SNF DOT NET ARCHITECT REPORTS ONLY PRIOR TO STUDY AND DID HIGHLIGHT NEED FOR EXTRA SWALLOWS, PLACE BOLUS ON THE RIGHT TO AVOID ORAL SPILLAGE, AND LIQUID WASHES FOR PUREED ORAL CLEARANCE. PER HER DAUGHTER, SHE WAS TAKING THIN LIQUIDS VIA STRAW. INITIAL IMPRESSIONS: PERSISTENT OROPHARYNGEAL DYSPHAGIA WITH ASPIRATION/REFLUX RISKS' TONGUE PROTRUDES AT REST AND DURING SWALLOW GIVEN THIN LIQUIDS VIA TSP, HAS MILD INCREASED IN ORAL TRANSIT TIMES AND NEEDS 2 SWALLOWS TO CLEAR. HYOLARYNGEAL ELEVATION APPEARS REDUCED. TENDS TO TILT HEAD TO LEFT (NEEDED TO PLACE TSP ON LEFT TO REDUCED ORAL SPILLAGE.) NO OVERT ASPIRATION BUT HAS SILENT ASPIRATION RISK DUE TO NEURO DX RECOMMENDATIONS: AWAIT ASPIRATION PRECAUTIONS INFORMATION FROM MOD BARIUM SWALLOW STUDY COMPLETED IN JANUARY 2019 AT [facility]. CONSIDER INITIATE REINA FORTIFIED LIQUIFIED PUREED LIKE NECTAR THICK SOUP AND THIN LIQUIDS TSP ONLY WITH POSTED PRECAUTIONS FOR ORAL GRATIFICATION (HALF PORTIONS ONLY SINCE GETTING PEG FEEDINGS AND DOES NOT EAT MUCH) CONSIDER REPEAT MBSS AT [facility] [place] ONLY IF INDICATED. CONTINUE WITH NONORAL FEEDINGS AND ORAL CARE D/W AND EDUCATED/TRAINED RN KEYANA AND PT'S DTR LEONARDO.
--- NOTE | 2019-06-12 15:38 | Consultation ---
History of Present Illness General Date patient seen: Jun 12, 2019 Chief Complaint: General Complaint Present Illness HPI This is a 73-year-old female multiple medical comorbidities who presented to [facility] for evaluation of failure to thrive, severe protein calorie malnutrition, feeding tube placement given the above. On admission was identified to have a full-thickness wound on the sacral area requiring care and management. Surgery called to evaluate. Patient seen, patient evaluated, chart reviewed. Patient nonverbal and unable to provide history or comply with examination. Remainder of history obtained from EMR and ppcp. Daughter at bedside who help provide history and information. Allergies: Coded Allergies: No Known Allergies (Unverified , 11/22/15) Medication History Scheduled Acetaminophen (Acetaminophen), 650 MG PO every 4 , (Reported) Amantadine Hcl* (Amantadine*), 100 MG ORAL TWICE A DAY, (Reported) Ascorbic Acid* (Vitamin C*), 250 MG ORAL TWICE A DAY, (Reported) Carbidopa/Levodopa 25-100 Mg* (Sinemet 25-100 Mg Tablet*), 1 TAB ORAL EVERY 6 HOURS, (Reported) Carbidopa/Levodopa 25-100 Mg* (Sinemet 25-100 Mg Tablet*), 1 TAB ORAL THREE TIMES A DAY, (Reported) Cefepime Hcl/D5w (Cefepime-Dextrose 2 Gm/50 Ml), 2 GM IVPB Q24H, (Reported) Cefepime Hcl/D5w (Cefepime-Dextrose 2 Gm/50 Ml), 2 GM IVPB Q24H, (Reported) Clonidine Hcl* (Catapres*), 0.1 MG ORAL EVERY 6 HOURS, (Reported) Docusate Sodium* (Docusate Sodium*), 100 MG ORAL TWICE A DAY, (Reported) Heparin Sodium,Porcine (Heparin Sodium), 5,000 UNITS SQ Q12HR, (Reported) Levodopa/Carbidopa (Carbidopa-Levo ER 25-100 Tab), 1 TAB ORAL TWICE A DAY, ( Reported) Levodopa/Carbidopa (Carbidopa-Levo ER 25-100 Tab), 1 TAB ORAL THREE TIMES A DAY, (Reported) Lisinopril* (Lisinopril*), 10 MG ORAL DAILY, (Reported) Metoprolol Succinate* (Metoprolol Succinate*), 25 MG ORAL BID, (Reported) Metoprolol Tartrate* (Metoprolol Tartrate*), 25 MG ORAL Q12HR, (Reported) Multivitamin (Multi Vitamin Daily), 1 TAB ORAL DAILY, (Reported) Multivitamin with Minerals (Multivitamins with Minerals), 1 TAB ORAL DAILY, ( Reported) Nifedipine Xl* (Procardia Xl*), 90 MG ORAL DAILY, (Reported) Pantoprazole* (Protonix*), 40 MG ORAL DAILY, (Reported) Pramipexole (Mirapex), 0.25 MG ORAL THREE TIMES A DAY, (Reported) Pramipexole (Mirapex), 0.5 MG ORAL THREE TIMES A DAY, (Reported) Pramipexole* (Mirapex*), 0.25 MG ORAL THREE TIMES A DAY, (Reported) Prazosin Hcl (Prazosin Hcl), 1 MG PO TID, (Reported) Prazosin Hcl* (Minipress*), 1 MG PO TID, (Reported) Scheduled PRN Acetaminophen* (Tylenol*), 325 MG RECTAL Q6HR PRN for Mild Pain/Temp > 100.5, ( Reported) Acetaminophen* (Acetaminophen 325MG Tablet*), 650 MG ORAL Q4H PRN for For Pain, (Reported) Bisacodyl (Dulcolax), 10 MG RC HS PRN for Constipation, (Reported) Guaifenesin/Codeine Phos* (Robitussin Ac*), 30 ML ORAL Q6H PRN for For Cough, ( Reported) Ondansetron (Zofran), 4 MG ORAL Q6H PRN for Nausea & Vomiting, (Reported) Zolpidem Tartrate* (Ambien*), 5 MG ORAL BEDTIME PRN for Insomnia, (Reported) Miscellaneous Medications Mag Hydrox/Al Hydrox/Simeth (Maalox Maximum Strength Susp), 30 ML PO, (Reported) Patient History Limited by: medical condition History Provided By: Medical Record, PMD Healthcare decision maker N Resuscitation status Full Code Advanced Directive on File Past Medical/Surgical History Past Medical/Surgical History: (1) Sepsis (2) UTI (urinary tract infection) (3) Anemia (4) Dysphagia (5) Hypoalbuminemia (6) Iron deficiency (7) At high risk for aspiration (8) Parkinson disease (9) Dementia (10) Elevated CEA (11) Paroxysmal A-fib (12) Pancytopenia Review of Systems ROS Narrative Cannot obtain given patient's medical condition Physical Exam General Appearance: no apparent distress Lines, tubes and drains: peripheral HEENT: mucous membranes moist Neck: normal inspection Respiratory/Chest: normal breath sounds, no respiratory distress, decreased breath sounds Cardiovascular/Chest: normal peripheral pulses, normal rate Abdomen: soft, no organomegaly, no mass, other Extremities: non-tender, normal inspection, other Skin Exam: warm/dry, other Neurologic: alert Last 24 Hour Vital Signs Date Time Temp Pulse Resp B/P (MAP) Pulse Ox O2 Delivery O2 Flow Rate FiO2 06/12/19 12:00 98.5 92 18 111/67 (82) 95 06/12/19 11:27 71 15 100 06/12/19 10:30 97.5 71 15 120/62 100 Nasal Cannula 3 06/12/19 10:15 55 16 118/60 100 Nasal Cannula 3 06/12/19 10:10 59 18 121/64 100 Nasal Cannula 3 06/12/19 10:10 58 20 100 06/12/19 10:03 97.7 56 20 126/69 100 Nasal Cannula 3 06/12/19 09:00 68 96/60 06/12/19 09:00 96/60 06/12/19 09:00 Room Air 06/12/19 08:00 97.9 68 18 96/60 (72) 94 06/12/19 04:00 98.4 84 19 120/66 (84) 95 06/12/19 00:00 99.0 91 21 114/71 (85) 95 06/11/19 21:39 102 126/76 06/11/19 21:00 Room Air 06/11/19 20:00 98.5 90 20 100/64 (76) 95 06/11/19 17:46 Room Air Intake and Output 06/11/19 06/12/19 19:00 07:00 Intake Total 50 ml 750 ml Output Total 0 ml Balance 50 ml 750 ml Intake Oral 90 ml IV Total 50 ml 660 ml Output Urine Total 0 ml # Voids 2 2 Laboratory Tests Test 06/12/19 05:30 White Blood Count 7.5 K/UL (4.8-10.8) Red Blood Count 4.41 M/UL (4.20-5.40) Hemoglobin 12.8 G/DL (12.0-16.0) Hematocrit 38.7 % (37.0-47.0) Mean Corpuscular Volume 88 FL (80-99) Mean Corpuscular Hemoglobin 29.0 PG (27.0-31.0) Mean Corpuscular Hemoglobin Concent 33.1 G/DL (32.0-36.0) Red Cell Distribution Width 12.7 % (11.6-14.8) Platelet Count 227 K/UL (150-450) Mean Platelet Volume 6.8 FL (6.5-10.1) Neutrophils (%) (Auto) 54.1 % (45.0-75.0) Lymphocytes (%) (Auto) 35.8 % (20.0-45.0) Monocytes (%) (Auto) 9.0 % (1.0-10.0) Eosinophils (%) (Auto) 0.7 % (0.0-3.0) Basophils (%) (Auto) 0.6 % (0.0-2.0) Prothrombin Time 10.5 SEC (9.30-11.50) Prothromb Time International Ratio 1.0 (0.9-1.1) Sodium Level 140 MMOL/L (136-145) Potassium Level 4.0 MMOL/L (3.5-5.1) Chloride Level 107 MMOL/L (98-107) Carbon Dioxide Level 24 MMOL/L (21-32) Anion Gap 9 mmol/L (5-15) Blood Urea Nitrogen 14 mg/dL (7-18) Creatinine 0.4 MG/DL (0.55-1.30) L Estimat Glomerular Filtration Rate mL/min (>60) Glucose Level 101 MG/DL (74-106) Calcium Level 10.5 MG/DL (8.5-10.1) H Total Bilirubin 0.9 MG/DL (0.2-1.0) Aspartate Amino Transf (AST/SGOT) 16 U/L (15-37) Alanine Aminotransferase (ALT/SGPT) 6 U/L (12-78) L Alkaline Phosphatase 109 U/L (46-116) Total Protein 7.6 G/DL (6.4-8.2) Albumin 3.2 G/DL (3.4-5.0) L Globulin 4.4 g/dL Albumin/Globulin Ratio 0.7 (1.0-2.7) L Height (Feet): 5 Height (Inches): 1.00 Weight (Pounds): 114 Medications Current Medications Medications (Trade) Dose Ordered Sig/Alex Route PRN Reason Start Time Stop Time Status Last Admin Dose Admin Carbidopa/Levodopa (Sinemet 25/100) 1 tab EVERY 6 HOURS ORAL 06/11/19 18:00 07/11/19 17:59 06/12/19 12:07 Dextrose (Dextrose 50%) 25 ml Q30M PRN IV Hypoglycemia 06/11/19 14:15 07/11/19 14:14 Dextrose (Dextrose 50%) 50 ml Q30M PRN IV Hypoglycemia 06/11/19 14:15 07/11/19 14:14 Dextrose/Sodium Chloride 1,000 ml @ 50 mls/hr Q20H IV 06/11/19 16:00 07/11/19 15:59 06/12/19 12:08 Heparin Sodium (Porcine) (Heparin 5000 units/ml) 5,000 units EVERY 12 HOURS SUBQ 06/11/19 21:00 07/11/19 20:59 06/11/19 21:40 Lisinopril (Zestril) 10 mg DAILY ORAL 06/12/19 09:00 07/12/19 08:59 Lorazepam (Ativan 2mg/ml 1ml) 0.5 mg Q4H PRN IV For Anxiety 06/11/19 14:15 06/18/19 14:14 Metoprolol Succinate (Toprol XL) 25 mg Q12HR ORAL 06/11/19 21:00 07/11/19 20:59 06/11/19 21:39 Morphine Sulfate (Morphine Sulfate) 1 mg Q4H PRN IVP For Pain 06/11/19 14:15 06/18/19 14:14 Ondansetron HCl (Zofran) 4 mg Q6H PRN IVP Nausea & Vomiting 06/11/19 14:15 07/11/19 14:14 Pramipexole (Mirapex) 0.25 mg THREE TIMES A DAY ORAL 06/11/19 18:00 07/11/19 17:59 06/12/19 12:07 Prazosin HCl (Minipress) 1 mg Q8HR ORAL 06/11/19 22:00 07/11/19 21:59 06/12/19 14:10 Assessment/Plan Problem List: (1) Failure to thrive (child) ICD Codes: R62.51 - Failure to thrive (child) SNOMED: 246237934 (2) Protein calorie malnutrition Assessment & Plan: DAILY ESTIMATED NEEDS: Needs based on Wound, underweight/ 49kg 30-35 kcals/kg 0885-2941 total kcals 1.5-2.0 g protein/kg 73-98 g total protein 25-30 mL/kg 7494-3975 total fluid mLs NUTRITION DIAGNOSIS: * Increased kcal/prot needs R/T wound healing, underweight status, progressive wt loss as evidenced by admitted w/ advanced sacral wound, eval pending, low BMI per guidelines w/ 89% IBW, possible progressive wt loss of 18lbs/14.4% in 1 year * Swallowing difficulty R/T dysphagia, h/o Parkinson's disease as evidenced 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 CURRENT TF: Vital AF 1.2 @ 60ml/hr x 24 hrs ordered ENTERAL NUTRITION RECOMMENDATIONS: Jevity 1.2 @ 58ml/hr x 24 hrs to provide 1392ml, 1670kcal, 77g prot, 1123ml free water * Initiate Jevity 1.2 @ 18ml/hr x 6 hrs, advance 10ml q 4-6 hrs as tolerated to goal rate * HOB over 30 degrees/ water flush per MD ADDITIONAL RECOMMENDATIONS: * Calibrated bedscale wt for accurate CBW -> weekly wt monitoring * Monitor lytes daily w/ TF, replete as needed: high risk for refeeding * Wound healing: Add Vit C 500mg QD : Add ZnSO4 220mg QD x 10 days : Once TF well tolerated, add Kevin 1pkt BID ICD Codes: E46 - Unspecified protein-calorie malnutrition SNOMED: 079283171 (3) Sacral decubitus ulcer Assessment & Plan: Pt presented on admission with full thickness Stage 3 sacral pressure injury. Base of wound has 75% slough ,25% viable. (L)1.9cm x (W) 3.5cm. Scattered areas of maceration along borders. Mixed pink epithelial and hyperpigmentation periwound. Additionally two small wounds noted to R and L buttocks within area of hyperpigmentation. R and L heels are both soft but easily blanchable.No other skin concerns noted. Tx.Plan: Cleanse sacral wound with Saline. Apply Therahoney. Apply Moisture Barrier paste periwound. Cover with Optifoam drsg. Change every 3 days and prn. Apply Cavilon Skin BArrier to both heels. Cover each heel with Optifoam drsg. Change every 7 days and prn. APM/YOLY Mattress overlay. Reposition at least every 2hours or as tolerated. Off-load heels with pillow. ICD Codes: L89.159 - Pressure ulcer of sacral region, unspecified stage SNOMED: 993386607 Holland Petty Jun 12, 2019 15:38
[2019-06-12] MEDS ORDERED: Acetaminophen 650mg/20.3ml GT PRN (15:45)
--- NOTE | 2019-06-12 16:30 | Procedure Note ---
DATE OF PROCEDURE: 06/12/2019 SURGEON: Gilbert Hooks M.D. REFERRING PHYSICIAN: Tony Dupree D.O. PROCEDURE: Upper endoscopy with PEG placement. ANESTHESIA: Per KAYLEIGH Parks. INSTRUMENT: Olympus adult flexible upper endoscope. INDICATIONS: 1. Dysphagia. 2. Failure to thrive. REASON FOR PROCEDURE: The procedure, risks, benefits, and possible consequences, including hemorrhage, aspiration, perforation and infection, and alternative treatments, were explained to the patient/legal guardian by Dr. Gilbert Hooks and the patient/legal guardian understood and accepted these risks. PROCEDURE IN DETAIL: After informed consent was obtained and the patient was adequately sedated, Olympus upper endoscope was advanced from the mouth into second portion of the duodenum and retroflexion was performed in the stomach. The patient has evidence of diffuse gastritis. Then, under endoscopic guidance and under sterile condition, a 20-English push-type of G-tube was successfully placed in the epigastric area. The distance from the tip of the tube to skin was about 2 cm in size. The patient tolerated the procedure very well without complication. SUMMARY OF FINDINGS: 1. Gastritis. 2. Status post successful PEG placement. RECOMMENDATION: 1. Abdominal binder. 2. Elevate head of the bed at all times. 3. G-tube flush. 4. G-tube care. 5. Start tube feeding later today. 6. The patient received a dose of antibiotic prior to this procedure. I want to thank Dr. Tony Dupree for this kind referral. Gilbert Hooks M.D. DR: URBAN JOB#: [id number] CC:
--- NOTE | 2019-06-12 19:45 | NUR ---
HAND-OFF: Report given to CRISTY Sylvester.
--- NOTE | 2019-06-12 19:49 | NUR ---
NURSE NOTES: Pt received in bed asleep, Gtube feeding running at 30, goal is 58, will increase, pt with contracted upper and lower extremities, head of bed elevated, received report that temp earlier was 99.9 with pt c/o gtube discomfort and was given tylenol, will monitor.
--- NOTE | 2019-06-12 21:02 | NUR ---
NURSE NOTES: Pt blood pressure 82/52, took blood pressure 3 more times 83/51 82/52 85/52, left voicemail for Dr. Dupree, awaiting call back.
[2019-06-13] VITALS (7 sets, daily range): BP systolic 95–130; BP diastolic 51–72
[2019-06-13] MEDS: Levodopa/Carbidopa 25/100 tab ORAL SCH ×5 (00:37→23:34)
--- NOTE | 2019-06-13 01:00 | NUR ---
NURSE NOTES: Pt received bolus NS 500ml and blood pressure 110/68, 71HR.
--- NOTE | 2019-06-13 07:12 | General Progress Note ---
Assessment/Plan Problem List: (1) Paroxysmal A-fib ICD Codes: I48.0 - Paroxysmal atrial fibrillation SNOMED: 856465163 (2) Elevated CEA ICD Codes: R97.0 - Elevated carcinoembryonic antigen [CEA] SNOMED: 17956130, 270222842 (3) Dementia ICD Codes: F03.90 - Unspecified dementia without behavioral disturbance SNOMED: 50738659 (4) Parkinson disease ICD Codes: G20 - Parkinson's disease SNOMED: 39447353 (5) Iron deficiency ICD Codes: E61.1 - Iron deficiency SNOMED: 58664597 (6) Dysphagia ICD Codes: R13.10 - Dysphagia, unspecified SNOMED: 27503780, 882630813 Status: stable, progressing Assessment/Plan: s/p GT placement on GTF GT care fu labs dc planning per primary team Subjective ROS Limited/Unobtainable: No Allergies: Coded Allergies: No Known Allergies (Unverified , 11/22/15) Objective Last 24 Hour Vital Signs Date Time Temp Pulse Resp B/P (MAP) Pulse Ox O2 Delivery O2 Flow Rate FiO2 06/13/19 04:00 98.1 91 18 124/72 (89) 98 06/13/19 00:00 98.3 71 20 110/68 (82) 100 06/12/19 22:00 91/69 (76) 06/12/19 21:00 Room Air 06/12/19 21:00 83 85/52 06/12/19 20:00 98.7 67 20 82/52 (62) 96 06/12/19 16:00 98.1 89 18 115/71 (86) 96 06/12/19 12:00 98.5 92 18 111/67 (82) 95 06/12/19 11:27 71 15 100 06/12/19 10:30 97.5 71 15 120/62 100 Nasal Cannula 3 06/12/19 10:15 55 16 118/60 100 Nasal Cannula 3 06/12/19 10:10 59 18 121/64 100 Nasal Cannula 3 06/12/19 10:10 58 20 100 06/12/19 10:03 97.7 56 20 126/69 100 Nasal Cannula 3 06/12/19 09:00 68 96/60 06/12/19 09:00 96/60 06/12/19 09:00 Room Air 06/12/19 08:00 97.9 68 18 96/60 (72) 94 Intake and Output 06/12/19 06/13/19 19:00 07:00 Intake Total 640 ml 1550 ml Balance 640 ml 1550 ml Free Water 130 ml 150 ml IV Total 350 ml 1050 ml Tube Feeding 160 ml 350 ml Height (Feet): 5 Height (Inches): 1.00 Weight (Pounds): 114 General Appearance: no apparent distress EENT: normal ENT inspection Neck: supple Cardiovascular: normal rate Respiratory/Chest: decreased breath sounds Abdomen: normal bowel sounds, non tender, soft Extremities: non-tender Gilbert Hooks MD Jun 13, 2019 07:12
--- NOTE | 2019-06-13 07:23 | NUR ---
HAND-OFF: Report given to CRISTY Rdz.
--- NOTE | 2019-06-13 07:56 | NUR ---
NURSE NOTES: Pt received in bed A/A/O, able to follow simple commands by nodding. On gtube feeding @ 40cc @ this time. No gastric residual noted. pt with contracted upper and lower extremities, head of bed elevated for aspiration precaution. On oral gratification as well per MD order. Patient on P200 mattress for wound integrity. siderails are up x3. bed is in the lowest position. bed alarm and bed lock @ all times. will cont the plan of care.
[2019-06-13 07:58] LABS: BASOPHILS % (AUTO) 0.4 % (0.0-2.0); EOSINOPHILS % (AUTO) 0.7 % (0.0-3.0); HEMATOCRIT 33.8 % (37.0-47.0); HEMOGLOBIN 11.2 G/DL (12.0-16.0); LYMPHOCYTES % (AUTO) 20.1 % (20.0-45.0); MEAN CORPUSCULAR VOLUME 88 FL (80-99); MONOCYTES % (AUTO) 8.6 % (1.0-10.0); NEUTROPHILS % (AUTO) 70.1 % (45.0-75.0); PLATELET COUNT 167 K/UL (150-450); RED BLOOD COUNT 3.83 M/UL (4.20-5.40); RED CELL DISTRIBUTION WIDTH 12.5 % (11.6-14.8)
[2019-06-13] MEDS: D5 1/2NS 1,000 ML IV SCH (08:14)
[2019-06-13] MEDS: Ascorbic Acid 500mg tab GT SCH (09:08)
[2019-06-13] MEDS: Zinc Sulfate 220mg cap GT SCH (09:09)
[2019-06-13] MEDS: Metoprolol Succinate XL 25mg tab ORAL SCH ×2 (09:09→20:57)
[2019-06-13] MEDS: Lisinopril 10mg tab ORAL SCH (09:09)
[2019-06-13 09:10] LABS: ANION GAP 8 mmol/L (5-15); BLOOD UREA NITROGEN 11 mg/dL (7-18); CALCIUM 9.7 MG/DL (8.5-10.1); CARBON DIOXIDE 24 MMOL/L (21-32); CHLORIDE 109 MMOL/L (98-107); CREATININE 0.4 MG/DL (0.55-1.30); POTASSIUM 3.8 MMOL/L (3.5-5.1); SODIUM 141 MMOL/L (136-145)
[2019-06-13] MEDS: Heparin 5000 units/ml inj SUBQ SCH ×2 (09:21→21:01)
--- NOTE | 2019-06-13 13:11 | Cardiology Report ---
APPROVED REPORT EKG Measurement Heart [id number] Sinus tachycardia with premature supraventricular complexes Cannot rule out Anterior infarct, age undetermined Abnormal ECG
--- NOTE | 2019-06-13 14:08 | NUR ---
NURSE NOTES: gtube drsg changed d/t/i. reapplied abdominal binder. will cont to monitor.
--- NOTE | 2019-06-13 14:27 | Surgery Progress Note ---
Surgery Progress Note Subjective Additional Comments No acute events. Comfortable and stable. Labs noted. On air mattress now. Dressings changed. Objective Last 24 Hour Vital Signs Date Time Temp Pulse Resp B/P (MAP) Pulse Ox O2 Delivery O2 Flow Rate FiO2 06/13/19 13:47 98.7 70 16 105/51 (69) 100 06/13/19 12:00 98.7 82 16 95/51 (66) 100 06/13/19 09:09 96 112/62 06/13/19 09:09 112/62 06/13/19 08:58 Room Air 06/13/19 08:00 98.5 96 18 118/72 (87) 98 06/13/19 04:00 98.1 91 18 124/72 (89) 98 06/13/19 00:00 98.3 71 20 110/68 (82) 100 06/12/19 22:00 91/69 (76) 06/12/19 21:00 Room Air 06/12/19 21:00 83 85/52 06/12/19 20:00 98.7 67 20 82/52 (62) 96 06/12/19 16:00 98.1 89 18 115/71 (86) 96 I&O Intake and Output 06/12/19 06/13/19 18:59 06:59 Intake Total 610 ml 1580 ml Balance 610 ml 1580 ml Free Water 130 ml 150 ml IV Total 350 ml 1050 ml Tube Feeding 130 ml 380 ml Dressing: saturated Wound: clean Cardiovascular: RSR Respiratory: clear Abdomen: soft, non-tender, present bowel sounds Extremities: no cyanosis, other Laboratory Tests Test 06/13/19 06:45 White Blood Count 6.0 K/UL (4.8-10.8) Red Blood Count 3.83 M/UL (4.20-5.40) L Hemoglobin 11.2 G/DL (12.0-16.0) L Hematocrit 33.8 % (37.0-47.0) L Mean Corpuscular Volume 88 FL (80-99) Mean Corpuscular Hemoglobin 29.1 PG (27.0-31.0) Mean Corpuscular Hemoglobin Concent 33.0 G/DL (32.0-36.0) Red Cell Distribution Width 12.5 % (11.6-14.8) Platelet Count 167 K/UL (150-450) Mean Platelet Volume 7.4 FL (6.5-10.1) Neutrophils (%) (Auto) 70.1 % (45.0-75.0) Lymphocytes (%) (Auto) 20.1 % (20.0-45.0) Monocytes (%) (Auto) 8.6 % (1.0-10.0) Eosinophils (%) (Auto) 0.7 % (0.0-3.0) Basophils (%) (Auto) 0.4 % (0.0-2.0) Sodium Level 141 MMOL/L (136-145) Potassium Level 3.8 MMOL/L (3.5-5.1) Chloride Level 109 MMOL/L (98-107) H Carbon Dioxide Level 24 MMOL/L (21-32) Anion Gap 8 mmol/L (5-15) Blood Urea Nitrogen 11 mg/dL (7-18) Creatinine 0.4 MG/DL (0.55-1.30) L Estimat Glomerular Filtration Rate mL/min (>60) Glucose Level 96 MG/DL (74-106) Calcium Level 9.7 MG/DL (8.5-10.1) Plan Problems: (1) Failure to thrive (child) (2) Protein calorie malnutrition Assessment & Plan: DAILY ESTIMATED NEEDS: Needs based on Wound, underweight/ 49kg 30-35 kcals/kg 9792-7659 total kcals 1.5-2.0 g protein/kg 73-98 g total protein 25-30 mL/kg 0589-3217 total fluid mLs NUTRITION DIAGNOSIS: * Increased kcal/prot needs R/T wound healing, underweight status, progressive wt loss as evidenced by admitted w/ advanced sacral wound, eval pending, low BMI per guidelines w/ 89% IBW, possible progressive wt loss of 18lbs/14.4% in 1 year * Swallowing difficulty R/T dysphagia, h/o Parkinson's disease as evidenced by pt on pureed texture diet [employer], 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 CURRENT TF: Vital AF 1.2 @ 60ml/hr x 24 hrs ordered ENTERAL NUTRITION RECOMMENDATIONS: Jevity 1.2 @ 58ml/hr x 24 hrs to provide 1392ml, 1670kcal, 77g prot, 1123ml free water * Initiate Jevity 1.2 @ 18ml/hr x 6 hrs, advance 10ml q 4-6 hrs as tolerated to goal rate * HOB over 30 degrees/ water flush per MD ADDITIONAL RECOMMENDATIONS: * Calibrated bedscale wt for accurate CBW -> weekly wt monitoring * Monitor lytes daily w/ TF, replete as needed: high risk for refeeding * Wound healing: Add Vit C 500mg QD : Add ZnSO4 220mg QD x 10 days : Once TF well tolerated, add Kevin 1pkt BID (3) Sacral decubitus ulcer Assessment & Plan: Pt presented on admission with full thickness Stage 3 sacral pressure injury. Base of wound has 75% slough ,25% viable. (L)1.9cm x (W) 3.5cm. Scattered areas of maceration along borders. Mixed pink epithelial and hyperpigmentation periwound. Additionally two small wounds noted to R and L buttocks within area of hyperpigmentation. R and L heels are both soft but easily blanchable.No other skin concerns noted. Tx.Plan: Cleanse sacral wound with Saline. Apply Therahoney. Apply Moisture Barrier paste periwound. Cover with Optifoam drsg. Change every 3 days and prn. Apply Cavilon Skin BArrier to both heels. Cover each heel with Optifoam drsg. Change every 7 days and prn. APM/YOLY Mattress overlay. Reposition at least every 2hours or as tolerated. Off-load heels with pillow. Holland Petty Jun 13, 2019 14:27
--- NOTE | 2019-06-13 15:18 | General Progress Note ---
Assessment/Plan Problem List: (1) UTI (urinary tract infection) ICD Codes: N39.0 - Urinary tract infection, site not specified SNOMED: 16040858 (2) Anemia ICD Codes: D64.9 - Anemia, unspecified SNOMED: 165894397 (3) Dementia ICD Codes: F03.90 - Unspecified dementia without behavioral disturbance SNOMED: 31116912 (4) Parkinson disease ICD Codes: G20 - Parkinson's disease SNOMED: 52148563 Status: stable, progressing Assessment/Plan: pt diet abx gtube cbc bmp am adv diet as tolerated Subjective Constitutional: Reports: weakness Allergies: Coded Allergies: No Known Allergies (Unverified , 11/22/15) All Systems: reviewed and negative except above Subjective calm in bed sleepy Objective Last 24 Hour Vital Signs Date Time Temp Pulse Resp B/P (MAP) Pulse Ox O2 Delivery O2 Flow Rate FiO2 06/13/19 13:47 98.7 70 16 105/51 (69) 100 06/13/19 12:00 98.7 82 16 95/51 (66) 100 06/13/19 09:09 96 112/62 06/13/19 09:09 112/62 06/13/19 08:58 Room Air 06/13/19 08:00 98.5 96 18 118/72 (87) 98 06/13/19 04:00 98.1 91 18 124/72 (89) 98 06/13/19 00:00 98.3 71 20 110/68 (82) 100 06/12/19 22:00 91/69 (76) 06/12/19 21:00 Room Air 06/12/19 21:00 83 85/52 06/12/19 20:00 98.7 67 20 82/52 (62) 96 06/12/19 16:00 98.1 89 18 115/71 (86) 96 Intake and Output 06/12/19 06/13/19 18:59 06:59 Intake Total 610 ml 1580 ml Balance 610 ml 1580 ml Free Water 130 ml 150 ml IV Total 350 ml 1050 ml Tube Feeding 130 ml 380 ml Laboratory Tests 06/13/19 06:45: White Blood Count 6.0, Red Blood Count 3.83L, Hemoglobin 11.2L, Hematocrit 33.8L , Mean Corpuscular Volume 88, Mean Corpuscular Hemoglobin 29.1, Mean Corpuscular Hemoglobin Concent 33.0, Red Cell Distribution Width 12.5, Platelet Count 167, Mean Platelet Volume 7.4, Neutrophils (%) (Auto) 70.1, Lymphocytes (% ) (Auto) 20.1, Monocytes (%) (Auto) 8.6, Eosinophils (%) (Auto) 0.7, Basophils ( %) (Auto) 0.4, Sodium Level 141, Potassium Level 3.8, Chloride Level 109H, Carbon Dioxide Level 24, Anion Gap 8, Blood Urea Nitrogen 11, Creatinine 0.4L, Estimat Glomerular Filtration Rate , Glucose Level 96, Calcium Level 9.7 Height (Feet): 5 Height (Inches): 1.00 Weight (Pounds): 114 General Appearance: lethargic EENT: normal ENT inspection Neck: normal alignment Cardiovascular: normal peripheral pulses, normal rate, regular rhythm Respiratory/Chest: chest wall non-tender, lungs clear, normal breath sounds Abdomen: normal bowel sounds, non tender, soft Extremities: normal inspection Edema: no edema noted Arm (L), no edema noted Arm (R), no edema noted Leg (L), no edema noted Leg (R), no edema noted Pedal (L), no edema noted Pedal (R), no edema noted Generalized Neurologic: motor weakness Skin: normal pigmentation, warm/dry Tony Dupree DO Jun 13, 2019 15:18
--- NOTE | 2019-06-13 19:10 | NUR ---
HAND-OFF: Report given to Nga.
--- NOTE | 2019-06-13 19:26 | NUR ---
NURSE NOTES: Pt asleep, gtube feeding running at 58 ml/hr the goal, IV fluids running, head of bed elevated, abdominal binder in place, will continue to monitor.
[2019-06-14] VITALS (7 sets, daily range): BP systolic 97–125; BP diastolic 31–75
[2019-06-14] MEDS: D5 1/2NS 1,000 ML IV SCH ×2 (03:15→23:51)
[2019-06-14] MEDS: Levodopa/Carbidopa 25/100 tab ORAL SCH ×4 (05:05→23:51)
--- NOTE | 2019-06-14 06:33 | General Progress Note ---
Assessment/Plan Problem List: (1) Paroxysmal A-fib ICD Codes: I48.0 - Paroxysmal atrial fibrillation SNOMED: 720532330 (2) Elevated CEA ICD Codes: R97.0 - Elevated carcinoembryonic antigen [CEA] SNOMED: 61507193, 015797106 (3) Dementia ICD Codes: F03.90 - Unspecified dementia without behavioral disturbance SNOMED: 44517867 (4) Parkinson disease ICD Codes: G20 - Parkinson's disease SNOMED: 44693010 (5) Iron deficiency ICD Codes: E61.1 - Iron deficiency SNOMED: 34180828 (6) Dysphagia ICD Codes: R13.10 - Dysphagia, unspecified SNOMED: 72493643, 967455707 Status: stable, progressing Assessment/Plan: s/p GT placement on GTF GT care fu labs dc planning per primary team Subjective ROS Limited/Unobtainable: No Allergies: Coded Allergies: No Known Allergies (Unverified , 11/22/15) Objective Last 24 Hour Vital Signs Date Time Temp Pulse Resp B/P (MAP) Pulse Ox O2 Delivery O2 Flow Rate FiO2 06/14/19 04:50 92 105/75 (85) 06/14/19 04:00 98.3 78 20 97/31 (53) 98 06/14/19 00:00 98.4 79 24 121/75 (90) 96 06/13/19 21:00 Room Air 06/13/19 20:57 78 98/51 06/13/19 20:00 98.2 78 20 98/51 (67) 96 06/13/19 16:07 98.1 71 17 130/60 (83) 98 06/13/19 13:47 98.7 70 16 105/51 (69) 100 06/13/19 12:00 98.7 82 16 95/51 (66) 100 06/13/19 09:09 96 112/62 06/13/19 09:09 112/62 06/13/19 08:58 Room Air 06/13/19 08:00 98.5 96 18 118/72 (87) 98 Intake and Output 06/13/19 06/14/19 19:00 07:00 Intake Total 1512 ml 1438 ml Balance 1512 ml 1438 ml Free Water 300 ml 300 ml IV Total 550 ml 500 ml Tube Feeding 662 ml 638 ml Laboratory Tests 06/13/19 06:45: White Blood Count 6.0, Red Blood Count 3.83L, Hemoglobin 11.2L, Hematocrit 33.8L , Mean Corpuscular Volume 88, Mean Corpuscular Hemoglobin 29.1, Mean Corpuscular Hemoglobin Concent 33.0, Red Cell Distribution Width 12.5, Platelet Count 167, Mean Platelet Volume 7.4, Neutrophils (%) (Auto) 70.1, Lymphocytes (% ) (Auto) 20.1, Monocytes (%) (Auto) 8.6, Eosinophils (%) (Auto) 0.7, Basophils ( %) (Auto) 0.4, Sodium Level 141, Potassium Level 3.8, Chloride Level 109H, Carbon Dioxide Level 24, Anion Gap 8, Blood Urea Nitrogen 11, Creatinine 0.4L, Estimat Glomerular Filtration Rate , Glucose Level 96, Calcium Level 9.7 Height (Feet): 5 Height (Inches): 1.00 Weight (Pounds): 114 General Appearance: no apparent distress EENT: normal ENT inspection Neck: supple Cardiovascular: normal rate Respiratory/Chest: decreased breath sounds Abdomen: normal bowel sounds, non tender, soft Extremities: non-tender Gilbert Hooks MD Jun 14, 2019 06:33
--- NOTE | 2019-06-14 07:08 | NUR ---
HAND-OFF: Report given to CRISTY Rdz.
--- NOTE | 2019-06-14 07:30 | NUR ---
NURSE NOTES: Pt received in bed A/A/Ox1, nonverbal. patient is contracted upper and lower extremities, HOB elevated for aspiration precaution. tolerating tube feeding well. no gastric residual noted. siderails are up x3. bed alarm activated and bed locked @ all times. will cont to monitor.
[2019-06-14 07:39] LABS: BASOPHILS % (AUTO) 0.7 % (0.0-2.0); EOSINOPHILS % (AUTO) 0.8 % (0.0-3.0); HEMATOCRIT 32.3 % (37.0-47.0); HEMOGLOBIN 10.5 G/DL (12.0-16.0); LYMPHOCYTES % (AUTO) 19.2 % (20.0-45.0); MEAN CORPUSCULAR VOLUME 87 FL (80-99); MONOCYTES % (AUTO) 7.2 % (1.0-10.0); NEUTROPHILS % (AUTO) 72.2 % (45.0-75.0); PLATELET COUNT 149 K/UL (150-450); RED BLOOD COUNT 3.69 M/UL (4.20-5.40); RED CELL DISTRIBUTION WIDTH 12.8 % (11.6-14.8); WHITE BLOOD COUNT 7.2 K/UL (4.8-10.8)
[2019-06-14 07:51] LABS: ANION GAP 7 mmol/L (5-15); BLOOD UREA NITROGEN 12 mg/dL (7-18); CALCIUM 9.5 MG/DL (8.5-10.1); CARBON DIOXIDE 23 MMOL/L (21-32); CHLORIDE 109 MMOL/L (98-107); CREATININE 0.4 MG/DL (0.55-1.30); POTASSIUM 4.1 MMOL/L (3.5-5.1); SODIUM 139 MMOL/L (136-145)
[2019-06-14] MEDS: Metoprolol Succinate XL 25mg tab ORAL SCH ×2 (08:45→20:59)
[2019-06-14] MEDS: Lisinopril 10mg tab ORAL SCH (08:45)
[2019-06-14] MEDS: Heparin 5000 units/ml inj SUBQ SCH ×2 (09:00→21:01)
[2019-06-14] MEDS: Ascorbic Acid 500mg tab GT SCH (09:04)
[2019-06-14] MEDS: Zinc Sulfate 220mg cap GT SCH (09:04)
--- NOTE | 2019-06-14 09:40 | General Progress Note ---
Assessment/Plan Problem List: (1) UTI (urinary tract infection) ICD Codes: N39.0 - Urinary tract infection, site not specified SNOMED: 73506180 (2) Anemia ICD Codes: D64.9 - Anemia, unspecified SNOMED: 824271347 (3) Dementia ICD Codes: F03.90 - Unspecified dementia without behavioral disturbance SNOMED: 44736556 (4) Parkinson disease ICD Codes: G20 - Parkinson's disease SNOMED: 38811625 Status: stable, progressing Assessment/Plan: pt diet abx gtube cbc bmp am adv diet as tolerated dc plan Subjective Constitutional: Reports: weakness Allergies: Coded Allergies: No Known Allergies (Unverified , 11/22/15) All Systems: reviewed and negative except above Subjective calm in bed sleepy Objective Last 24 Hour Vital Signs Date Time Temp Pulse Resp B/P (MAP) Pulse Ox O2 Delivery O2 Flow Rate FiO2 06/14/19 08:45 86 102/64 06/14/19 08:45 102/64 06/14/19 08:00 99.6 86 20 102/64 (77) 94 06/14/19 07:59 Room Air 06/14/19 04:50 92 105/75 (85) 06/14/19 04:00 98.3 78 20 97/31 (53) 98 06/14/19 00:00 98.4 79 24 121/75 (90) 96 06/13/19 21:00 Room Air 06/13/19 20:57 78 98/51 06/13/19 20:00 98.2 78 20 98/51 (67) 96 06/13/19 16:07 98.1 71 17 130/60 (83) 98 06/13/19 13:47 98.7 70 16 105/51 (69) 100 06/13/19 12:00 98.7 82 16 95/51 (66) 100 Intake and Output 06/13/19 06/14/19 19:00 07:00 Intake Total 1512 ml 1438 ml Balance 1512 ml 1438 ml Free Water 300 ml 300 ml IV Total 550 ml 500 ml Tube Feeding 662 ml 638 ml Laboratory Tests 06/14/19 07:05: White Blood Count 7.2, Red Blood Count 3.69L, Hemoglobin 10.5L, Hematocrit 32.3L , Mean Corpuscular Volume 87, Mean Corpuscular Hemoglobin 28.5, Mean Corpuscular Hemoglobin Concent 32.6, Red Cell Distribution Width 12.8, Platelet Count 149L, Mean Platelet Volume 6.8, Neutrophils (%) (Auto) 72.2, Lymphocytes ( %) (Auto) 19.2L, Monocytes (%) (Auto) 7.2, Eosinophils (%) (Auto) 0.8, Basophils (%) (Auto) 0.7, Sodium Level 139, Potassium Level 4.1, Chloride Level 109H, Carbon Dioxide Level 23, Anion Gap 7, Blood Urea Nitrogen 12, Creatinine 0.4L, Estimat Glomerular Filtration Rate , Glucose Level 128H, Calcium Level 9.5 Height (Feet): 5 Height (Inches): 1.00 Weight (Pounds): 114 General Appearance: lethargic EENT: normal ENT inspection Neck: normal alignment Cardiovascular: normal peripheral pulses, normal rate, regular rhythm Respiratory/Chest: chest wall non-tender, lungs clear, normal breath sounds Abdomen: normal bowel sounds, non tender, soft Extremities: normal inspection Edema: no edema noted Arm (L), no edema noted Arm (R), no edema noted Leg (L), no edema noted Leg (R), no edema noted Pedal (L), no edema noted Pedal (R), no edema noted Generalized Neurologic: motor weakness Skin: normal pigmentation, warm/dry Tony Dupree DO Jun 14, 2019 09:40
--- NOTE | 2019-06-14 12:00 | NUR ---
NURSE NOTES: cooling measures rendered.
--- NOTE | 2019-06-14 14:07 | Surgery Progress Note ---
Surgery Progress Note Subjective Symptoms: improved, tolerating diet, voiding well, passing flatus, BM Objective Last 24 Hour Vital Signs Date Time Temp Pulse Resp B/P (MAP) Pulse Ox O2 Delivery O2 Flow Rate FiO2 06/14/19 12:00 99.9 75 19 111/63 (79) 100 06/14/19 08:45 86 102/64 06/14/19 08:45 102/64 06/14/19 08:00 99.6 86 20 102/64 (77) 94 06/14/19 07:59 Room Air 06/14/19 04:50 92 105/75 (85) 06/14/19 04:00 98.3 78 20 97/31 (53) 98 06/14/19 00:00 98.4 79 24 121/75 (90) 96 06/13/19 21:00 Room Air 06/13/19 20:57 78 98/51 06/13/19 20:00 98.2 78 20 98/51 (67) 96 06/13/19 16:07 98.1 71 17 130/60 (83) 98 I&O Intake and Output 06/13/19 06/14/19 18:59 06:59 Intake Total 1444 ml 1646 ml Balance 1444 ml 1646 ml Free Water 250 ml 450 ml IV Total 550 ml 500 ml Tube Feeding 644 ml 696 ml Dressing: saturated Wound: clean Cardiovascular: RSR Respiratory: clear Abdomen: soft, non-tender, present bowel sounds Extremities: no cyanosis, other Laboratory Tests Test 06/14/19 07:05 White Blood Count 7.2 K/UL (4.8-10.8) Red Blood Count 3.69 M/UL (4.20-5.40) L Hemoglobin 10.5 G/DL (12.0-16.0) L Hematocrit 32.3 % (37.0-47.0) L Mean Corpuscular Volume 87 FL (80-99) Mean Corpuscular Hemoglobin 28.5 PG (27.0-31.0) Mean Corpuscular Hemoglobin Concent 32.6 G/DL (32.0-36.0) Red Cell Distribution Width 12.8 % (11.6-14.8) Platelet Count 149 K/UL (150-450) L Mean Platelet Volume 6.8 FL (6.5-10.1) Neutrophils (%) (Auto) 72.2 % (45.0-75.0) Lymphocytes (%) (Auto) 19.2 % (20.0-45.0) L Monocytes (%) (Auto) 7.2 % (1.0-10.0) Eosinophils (%) (Auto) 0.8 % (0.0-3.0) Basophils (%) (Auto) 0.7 % (0.0-2.0) Sodium Level 139 MMOL/L (136-145) Potassium Level 4.1 MMOL/L (3.5-5.1) Chloride Level 109 MMOL/L (98-107) H Carbon Dioxide Level 23 MMOL/L (21-32) Anion Gap 7 mmol/L (5-15) Blood Urea Nitrogen 12 mg/dL (7-18) Creatinine 0.4 MG/DL (0.55-1.30) L Estimat Glomerular Filtration Rate mL/min (>60) Glucose Level 128 MG/DL (74-106) H Calcium Level 9.5 MG/DL (8.5-10.1) Plan Problems: (1) Failure to thrive (child) (2) Protein calorie malnutrition Assessment & Plan: DAILY ESTIMATED NEEDS: Needs based on Wound, underweight/ 49kg 30-35 kcals/kg 7933-1599 total kcals 1.5-2.0 g protein/kg 73-98 g total protein 25-30 mL/kg 9470-8395 total fluid mLs NUTRITION DIAGNOSIS: * Increased kcal/prot needs R/T wound healing, underweight status, progressive wt loss as evidenced by admitted w/ advanced sacral wound, eval pending, low BMI per guidelines w/ 89% IBW, possible progressive wt loss of 18lbs/14.4% in 1 year * Swallowing difficulty R/T dysphagia, h/o Parkinson's disease as evidenced by pt on pureed texture diet [employer]CH[employer], 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 CURRENT TF: Vital AF 1.2 @ 60ml/hr x 24 hrs ordered ENTERAL NUTRITION RECOMMENDATIONS: Jevity 1.2 @ 58ml/hr x 24 hrs to provide 1392ml, 1670kcal, 77g prot, 1123ml free water * Initiate Jevity 1.2 @ 18ml/hr x 6 hrs, advance 10ml q 4-6 hrs as tolerated to goal rate * HOB over 30 degrees/ water flush per MD ADDITIONAL RECOMMENDATIONS: * Calibrated bedscale wt for accurate CBW -> weekly wt monitoring * Monitor lytes daily w/ TF, replete as needed: high risk for refeeding * Wound healing: Add Vit C 500mg QD : Add ZnSO4 220mg QD x 10 days : Once TF well tolerated, add Kevin 1pkt BID (3) Sacral decubitus ulcer Assessment & Plan: Pt presented on admission with full thickness Stage 3 sacral pressure injury. Base of wound has 75% slough ,25% viable. (L)1.9cm x (W) 3.5cm. Scattered areas of maceration along borders. Mixed pink epithelial and hyperpigmentation periwound. Additionally two small wounds noted to R and L buttocks within area of hyperpigmentation. R and L heels are both soft but easily blanchable.No other skin concerns noted. Tx.Plan: Cleanse sacral wound with Saline. Apply Therahoney. Apply Moisture Barrier paste periwound. Cover with Optifoam drsg. Change every 3 days and prn. Apply Cavilon Skin BArrier to both heels. Cover each heel with Optifoam drsg. Change every 7 days and prn. APM/YOLY Mattress overlay. Reposition at least every 2hours or as tolerated. Off-load heels with pillow. Holland Petty Jun 14, 2019 14:07
--- NOTE | 2019-06-14 19:01 | NUR ---
HAND-OFF: Report given to Nga.
--- NOTE | 2019-06-14 19:35 | NUR ---
NURSE NOTES: Pt received in bed asleep, gtube feeding running, iv fluids running, head of bed elevated, no signs of distress, will continue to monitor.
[2019-06-15] VITALS: BP 117/89
[2019-06-15 04:00] VITALS: BP 127/63
[2019-06-15] MEDS: Levodopa/Carbidopa 25/100 tab ORAL SCH ×2 (05:25→14:12)
[2019-06-15 07:16] LABS: BASOPHILS % (AUTO) 0.5 % (0.0-2.0); EOSINOPHILS % (AUTO) 1.8 % (0.0-3.0); HEMATOCRIT 33.4 % (37.0-47.0); HEMOGLOBIN 10.8 G/DL (12.0-16.0); LYMPHOCYTES % (AUTO) 20.5 % (20.0-45.0); MEAN CORPUSCULAR VOLUME 88 FL (80-99); MONOCYTES % (AUTO) 8.4 % (1.0-10.0); NEUTROPHILS % (AUTO) 68.8 % (45.0-75.0); PLATELET COUNT 153 K/UL (150-450); RED BLOOD COUNT 3.78 M/UL (4.20-5.40); RED CELL DISTRIBUTION WIDTH 12.7 % (11.6-14.8); WHITE BLOOD COUNT 6.4 K/UL (4.8-10.8)
[2019-06-15 07:33] LABS: CALCIUM 9.6 MG/DL (8.5-10.1); CHLORIDE 106 MMOL/L (98-107); CREATININE 0.4 MG/DL (0.55-1.30); POTASSIUM 4.5 MMOL/L (3.5-5.1); SODIUM 137 MMOL/L (136-145)
--- NOTE | 2019-06-15 07:38 | NUR ---
NURSE NOTES: Received repor from CRISTY Sylvester. Pt is laying in bed. Pt is alert and oriented X2. Bed is in lowest position, side rails upX 2, and call light is within reach. Will continue to monitor.
--- NOTE | 2019-06-15 07:38 | NUR ---
HAND-OFF: Report given to CRISTY Summers.
[2019-06-15 07:41] LABS: BLOOD UREA NITROGEN 14 mg/dL (7-18); CARBON DIOXIDE 26 MMOL/L (21-32)
[2019-06-15 08:00] VITALS: BP 130/79
[2019-06-15] MEDS: Ascorbic Acid 500mg tab GT SCH (08:32)
[2019-06-15] MEDS: Zinc Sulfate 220mg cap GT SCH (08:32)
[2019-06-15] MEDS: Metoprolol Succinate XL 25mg tab ORAL SCH (08:32)
[2019-06-15] MEDS: Lisinopril 10mg tab ORAL SCH (08:32)
[2019-06-15] MEDS: Heparin 5000 units/ml inj SUBQ SCH (08:33)
--- NOTE | 2019-06-15 09:43 | General Progress Note ---
Assessment/Plan Problem List: (1) UTI (urinary tract infection) ICD Codes: N39.0 - Urinary tract infection, site not specified SNOMED: 13503612 (2) Anemia ICD Codes: D64.9 - Anemia, unspecified SNOMED: 532482680 (3) Dementia ICD Codes: F03.90 - Unspecified dementia without behavioral disturbance SNOMED: 96739810 (4) Parkinson disease ICD Codes: G20 - Parkinson's disease SNOMED: 32396684 Status: stable, progressing Assessment/Plan: pt diet abx gtube dc if clear Subjective Constitutional: Reports: weakness Allergies: Coded Allergies: No Known Allergies (Unverified , 11/22/15) All Systems: reviewed and negative except above Subjective calm in bed sleepy Objective Last 24 Hour Vital Signs Date Time Temp Pulse Resp B/P (MAP) Pulse Ox O2 Delivery O2 Flow Rate FiO2 06/15/19 08:32 66 130/79 06/15/19 08:32 130/79 06/15/19 08:00 98.0 66 20 130/79 (96) 99 06/15/19 04:00 97.5 86 20 127/63 (84) 95 06/15/19 00:00 98.2 89 21 117/89 (98) 95 06/14/19 21:00 Room Air 06/14/19 20:59 80 125/65 06/14/19 20:00 97.5 80 20 125/65 (85) 95 06/14/19 16:00 97.2 88 20 114/50 (71) 97 06/14/19 12:00 99.9 75 19 111/63 (79) 100 Intake and Output 06/14/19 06/15/19 19:00 07:00 Intake Total 1636 ml 1388 ml Output Total 400 ml Balance 1236 ml 1388 ml Intake Oral 120 ml Free Water 270 ml 300 ml IV Total 550 ml 450 ml Tube Feeding 696 ml 638 ml Output Urine Total 400 ml # Bowel Movements 2 Laboratory Tests 06/15/19 05:50: White Blood Count 6.4, Red Blood Count 3.78L, Hemoglobin 10.8L, Hematocrit 33.4L , Mean Corpuscular Volume 88, Mean Corpuscular Hemoglobin 28.6, Mean Corpuscular Hemoglobin Concent 32.3, Red Cell Distribution Width 12.7, Platelet Count 153, Mean Platelet Volume 7.3, Neutrophils (%) (Auto) 68.8, Lymphocytes (% ) (Auto) 20.5, Monocytes (%) (Auto) 8.4, Eosinophils (%) (Auto) 1.8, Basophils ( %) (Auto) 0.5, Sodium Level 137, Potassium Level 4.5, Chloride Level 106, Carbon Dioxide Level 26, Blood Urea Nitrogen 14, Creatinine 0.4L, Estimat Glomerular Filtration Rate , Glucose Level 116H, Calcium Level 9.6 Height (Feet): 5 Height (Inches): 1.00 Weight (Pounds): 114 General Appearance: lethargic EENT: normal ENT inspection Neck: normal alignment Cardiovascular: normal peripheral pulses, normal rate, regular rhythm Respiratory/Chest: chest wall non-tender, lungs clear, normal breath sounds Abdomen: normal bowel sounds, non tender, soft Extremities: normal inspection Edema: no edema noted Arm (L), no edema noted Arm (R), no edema noted Leg (L), no edema noted Leg (R), no edema noted Pedal (L), no edema noted Pedal (R), no edema noted Generalized Neurologic: motor weakness Skin: normal pigmentation, warm/dry Tony Dupree DO Jun 15, 2019 09:43
--- NOTE | 2019-06-15 10:21 | NUR ---
DISCHARGE PLANNING FAXED CLINICALS TO [facility] T: [phone] F: [phone] *AWAIT ACCEPTANCE AND ASSIGNED ROOM NUMBER
--- NOTE | 2019-06-15 10:33 | NUR ---
NURSE NOTES: Contacted Dr. Hooks to ask if patient can be cleared for discharge. Per Dr. Hooks, Ok to discharge from GI standpoint.
--- NOTE | 2019-06-15 10:34 | Surgery Progress Note ---
Surgery Progress Note Subjective Additional Comments tolerating feeds comfortable d/c planning exam stable Objective Last 24 Hour Vital Signs Date Time Temp Pulse Resp B/P (MAP) Pulse Ox O2 Delivery O2 Flow Rate FiO2 06/15/19 08:32 66 130/79 06/15/19 08:32 130/79 06/15/19 08:00 98.0 66 20 130/79 (96) 99 06/15/19 04:00 97.5 86 20 127/63 (84) 95 06/15/19 00:00 98.2 89 21 117/89 (98) 95 06/14/19 21:00 Room Air 06/14/19 20:59 80 125/65 06/14/19 20:00 97.5 80 20 125/65 (85) 95 06/14/19 16:00 97.2 88 20 114/50 (71) 97 06/14/19 12:00 99.9 75 19 111/63 (79) 100 I&O Intake and Output 06/14/19 06/15/19 19:00 07:00 Intake Total 1636 ml 1388 ml Output Total 400 ml Balance 1236 ml 1388 ml Intake Oral 120 ml Free Water 270 ml 300 ml IV Total 550 ml 450 ml Tube Feeding 696 ml 638 ml Output Urine Total 400 ml # Bowel Movements 2 Dressing: saturated Wound: clean Cardiovascular: RSR Respiratory: clear Abdomen: soft, flat, non-tender, present bowel sounds Extremities: no cyanosis, other Laboratory Tests Test 06/15/19 05:50 White Blood Count 6.4 K/UL (4.8-10.8) Red Blood Count 3.78 M/UL (4.20-5.40) L Hemoglobin 10.8 G/DL (12.0-16.0) L Hematocrit 33.4 % (37.0-47.0) L Mean Corpuscular Volume 88 FL (80-99) Mean Corpuscular Hemoglobin 28.6 PG (27.0-31.0) Mean Corpuscular Hemoglobin Concent 32.3 G/DL (32.0-36.0) Red Cell Distribution Width 12.7 % (11.6-14.8) Platelet Count 153 K/UL (150-450) Mean Platelet Volume 7.3 FL (6.5-10.1) Neutrophils (%) (Auto) 68.8 % (45.0-75.0) Lymphocytes (%) (Auto) 20.5 % (20.0-45.0) Monocytes (%) (Auto) 8.4 % (1.0-10.0) Eosinophils (%) (Auto) 1.8 % (0.0-3.0) Basophils (%) (Auto) 0.5 % (0.0-2.0) Sodium Level 137 MMOL/L (136-145) Potassium Level 4.5 MMOL/L (3.5-5.1) Chloride Level 106 MMOL/L (98-107) Carbon Dioxide Level 26 MMOL/L (21-32) Blood Urea Nitrogen 14 mg/dL (7-18) Creatinine 0.4 MG/DL (0.55-1.30) L Estimat Glomerular Filtration Rate mL/min (>60) Glucose Level 116 MG/DL (74-106) H Calcium Level 9.6 MG/DL (8.5-10.1) Plan Problems: (1) Failure to thrive (child) (2) Protein calorie malnutrition Assessment & Plan: DAILY ESTIMATED NEEDS: Needs based on Wound, underweight/ 49kg 30-35 kcals/kg 1869-7725 total kcals 1.5-2.0 g protein/kg 73-98 g total protein 25-30 mL/kg 1202-3450 total fluid mLs NUTRITION DIAGNOSIS: * Increased kcal/prot needs R/T wound healing, underweight status, progressive wt loss as evidenced by admitted w/ advanced sacral wound, eval pending, low BMI per guidelines w/ 89% IBW, possible progressive wt loss of 18lbs/14.4% in 1 year * Swallowing difficulty R/T dysphagia, h/o Parkinson's disease as evidenced by pt on pureed texture diet [employer], 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 CURRENT TF: Vital AF 1.2 @ 60ml/hr x 24 hrs ordered ENTERAL NUTRITION RECOMMENDATIONS: Jevity 1.2 @ 58ml/hr x 24 hrs to provide 1392ml, 1670kcal, 77g prot, 1123ml free water * Initiate Jevity 1.2 @ 18ml/hr x 6 hrs, advance 10ml q 4-6 hrs as tolerated to goal rate * HOB over 30 degrees/ water flush per MD ADDITIONAL RECOMMENDATIONS: * Calibrated bedscale wt for accurate CBW -> weekly wt monitoring * Monitor lytes daily w/ TF, replete as needed: high risk for refeeding * Wound healing: Add Vit C 500mg QD : Add ZnSO4 220mg QD x 10 days : Once TF well tolerated, add Kevin 1pkt BID (3) Sacral decubitus ulcer Assessment & Plan: Pt presented on admission with full thickness Stage 3 sacral pressure injury. Base of wound has 75% slough ,25% viable. (L)1.9cm x (W) 3.5cm. Scattered areas of maceration along borders. Mixed pink epithelial and hyperpigmentation periwound. Additionally two small wounds noted to R and L buttocks within area of hyperpigmentation. R and L heels are both soft but easily blanchable.No other skin concerns noted. Tx.Plan: Cleanse sacral wound with Saline. Apply Therahoney. Apply Moisture Barrier paste periwound. Cover with Optifoam drsg. Change every 3 days and prn. Apply Cavilon Skin BArrier to both heels. Cover each heel with Optifoam drsg. Change every 7 days and prn. APM/YOLY Mattress overlay. Reposition at least every 2hours or as tolerated. Off-load heels with pillow. Holland Petty Jun 15, 2019 10:34
[2019-06-15] MEDS ORDERED: ASCORBIC ACID500 M4 GT (11:07)
[2019-06-15] MEDS ORDERED: SINEMET CR 25/101 EA ORAL (11:10)
[2019-06-15] MEDS ORDERED: MINIPRESS1 MG PO (11:11)
[2019-06-15] MEDS ORDERED: ZINC SULFATE220 M1 GT (11:12)
--- NOTE | 2019-06-15 11:14 | GI Progress Note ---
Assessment/Plan Problems: (1) Anemia ICD Codes: D64.9 - Anemia, unspecified SNOMED: 911277979 (2) Dysphagia ICD Codes: R13.10 - Dysphagia, unspecified SNOMED: 21934553, 712778787 (3) Dementia ICD Codes: F03.90 - Unspecified dementia without behavioral disturbance SNOMED: 10039182 (4) Iron deficiency ICD Codes: E61.1 - Iron deficiency SNOMED: 29391284 (5) Failure to thrive (child) ICD Codes: R62.51 - Failure to thrive (child) SNOMED: 032122556 Status: stable Status Narrative Discussed with Dr. Hooks. Assessment/Plan s/p GT placement on GTF GT care fu labs dc planning per primary team The patient was seen and examined at bedside and all new and available data was reviewed in the patients chart. I agree with the above findings, impression and plan. (Patient seen earlier today. Signature stamp does not reflect patient encounter time.). - Gilbert Hooks MD Subjective Subjective limited Objective Last 24 Hour Vital Signs Date Time Temp Pulse Resp B/P (MAP) Pulse Ox O2 Delivery O2 Flow Rate FiO2 06/15/19 09:00 Room Air 06/15/19 08:32 66 130/79 06/15/19 08:32 130/79 06/15/19 08:00 98.0 66 20 130/79 (96) 99 06/15/19 04:00 97.5 86 20 127/63 (84) 95 06/15/19 00:00 98.2 89 21 117/89 (98) 95 06/14/19 21:00 Room Air 06/14/19 20:59 80 125/65 06/14/19 20:00 97.5 80 20 125/65 (85) 95 06/14/19 16:00 97.2 88 20 114/50 (71) 97 06/14/19 12:00 99.9 75 19 111/63 (79) 100 Intake and Output 06/14/19 06/15/19 19:00 07:00 Intake Total 1636 ml 1388 ml Output Total 400 ml Balance 1236 ml 1388 ml Intake Oral 120 ml Free Water 270 ml 300 ml IV Total 550 ml 450 ml Tube Feeding 696 ml 638 ml Output Urine Total 400 ml # Bowel Movements 2 Laboratory Tests Test 06/15/19 05:50 White Blood Count 6.4 K/UL (4.8-10.8) Red Blood Count 3.78 M/UL (4.20-5.40) L Hemoglobin 10.8 G/DL (12.0-16.0) L Hematocrit 33.4 % (37.0-47.0) L Mean Corpuscular Volume 88 FL (80-99) Mean Corpuscular Hemoglobin 28.6 PG (27.0-31.0) Mean Corpuscular Hemoglobin Concent 32.3 G/DL (32.0-36.0) Red Cell Distribution Width 12.7 % (11.6-14.8) Platelet Count 153 K/UL (150-450) Mean Platelet Volume 7.3 FL (6.5-10.1) Neutrophils (%) (Auto) 68.8 % (45.0-75.0) Lymphocytes (%) (Auto) 20.5 % (20.0-45.0) Monocytes (%) (Auto) 8.4 % (1.0-10.0) Eosinophils (%) (Auto) 1.8 % (0.0-3.0) Basophils (%) (Auto) 0.5 % (0.0-2.0) Sodium Level 137 MMOL/L (136-145) Potassium Level 4.5 MMOL/L (3.5-5.1) Chloride Level 106 MMOL/L (98-107) Carbon Dioxide Level 26 MMOL/L (21-32) Blood Urea Nitrogen 14 mg/dL (7-18) Creatinine 0.4 MG/DL (0.55-1.30) L Estimat Glomerular Filtration Rate mL/min (>60) Glucose Level 116 MG/DL (74-106) H Calcium Level 9.6 MG/DL (8.5-10.1) Height (Feet): 5 Height (Inches): 1.00 Weight (Pounds): 114 General Appearance: WD/WN, no apparent distress, alert Cardiovascular: normal rate Respiratory/Chest: normal breath sounds, no respiratory distress Abdominal Exam: normal bowel sounds, non tender, soft Extremities: normal range of motion, non-tender Vince Batista NP Jun 15, 2019 11:14
--- NOTE | 2019-06-15 11:49 | NUR ---
DISCHARGE SWALLOW/SPEECH THERAPY SUMMARY: PATIENT SEEN FOR DYSPHAGIA, SEE SWALLOW EVALUATION REPORT. GOALS FOR INTAKE NOT MONITORED NOR DOCUMENTED SINCE PT IS ON ORAL GRATIFICATION AND HAS PEG FEEDINGS. GOALS MET FOR STAFF EDUCATED/TRAINED IN POSTED PRECAUTIONS. PLAN: F/UP WITH [facility] AT SNF FOR SWALLOW MANAGEMENT AND TX D/W RN, DTR NOT AVAILABLE AND PT IS NONVERBAL.
[2019-06-15 12:00] VITALS: BP 120/73
--- NOTE | 2019-06-15 13:04 | NUR ---
DISCHARGE PLANNING PATIENT IS RETURNING TO [facility] ROOM [address] [facility] T: [phone] FOR NURSE TO NURSE REPORT [facility] HAS BEEN ARRANGED FOR [address] [employer]ANDING SUPER[employer]OR SPOKE WITH DAUGHTER, LEONARDO, WHO IS IN AGREEMENT WITH DISCHARGE PLAN
--- NOTE | 2019-06-15 13:13 | Pulmonology Progress Note ---
Assessment/Plan Problems: (1) At high risk for aspiration (2) Parkinson disease (3) Anemia (4) Dementia Assessment/Plan tolerating feeding very well aspiration precaution check electrolytes dvt prophylaxis anemia w/u in progress symptomatic treatment. Subjective ROS Limited/Unobtainable: No Constitutional: Reports: no symptoms HEENT: Repors: no symptoms Respiratory: Reports: no symptoms Allergies: Coded Allergies: No Known Allergies (Unverified , 11/22/15) Objective Last 24 Hour Vital Signs Date Time Temp Pulse Resp B/P (MAP) Pulse Ox O2 Delivery O2 Flow Rate FiO2 06/15/19 09:00 Room Air 06/15/19 08:32 66 130/79 06/15/19 08:32 130/79 06/15/19 08:00 98.0 66 20 130/79 (96) 99 06/15/19 04:00 97.5 86 20 127/63 (84) 95 06/15/19 00:00 98.2 89 21 117/89 (98) 95 06/14/19 21:00 Room Air 06/14/19 20:59 80 125/65 06/14/19 20:00 97.5 80 20 125/65 (85) 95 06/14/19 16:00 97.2 88 20 114/50 (71) 97 Intake and Output 06/14/19 06/15/19 19:00 07:00 Intake Total 1636 ml 1388 ml Output Total 400 ml Balance 1236 ml 1388 ml Intake Oral 120 ml Free Water 270 ml 300 ml IV Total 550 ml 450 ml Tube Feeding 696 ml 638 ml Output Urine Total 400 ml # Bowel Movements 2 General Appearance: WD/WN HEENT: normocephalic, atraumatic Respiratory/Chest: chest wall non-tender, lungs clear Breasts: no masses Cardiovascular: normal peripheral pulses Abdomen: normal bowel sounds, soft, non tender Genitourinary: normal external genitalia Extremities: no clubbing Skin: no rash Neurologic/Psychiatric: auto porter II-XII grossly normal Lymphatic: no neck adenopathy Laboratory Tests 06/15/19 05:50: White Blood Count 6.4, Red Blood Count 3.78L, Hemoglobin 10.8L, Hematocrit 33.4L , Mean Corpuscular Volume 88, Mean Corpuscular Hemoglobin 28.6, Mean Corpuscular Hemoglobin Concent 32.3, Red Cell Distribution Width 12.7, Platelet Count 153, Mean Platelet Volume 7.3, Neutrophils (%) (Auto) 68.8, Lymphocytes (% ) (Auto) 20.5, Monocytes (%) (Auto) 8.4, Eosinophils (%) (Auto) 1.8, Basophils ( %) (Auto) 0.5, Sodium Level 137, Potassium Level 4.5, Chloride Level 106, Carbon Dioxide Level 26, Blood Urea Nitrogen 14, Creatinine 0.4L, Estimat Glomerular Filtration Rate , Glucose Level 116H, Calcium Level 9.6 Current Medications Medications (Trade) Dose Ordered Sig/Alex Route PRN Reason Start Time Stop Time Status Last Admin Dose Admin Acetaminophen (Tylenol) 650 mg Q4H PRN GT Mild Pain/Temp > 100.5 06/12/19 15:45 07/12/19 15:44 06/12/19 18:18 Ascorbic Acid (Vitamin C) 500 mg DAILY GT 06/13/19 09:00 07/13/19 08:59 06/15/19 08:32 Carbidopa/Levodopa (Sinemet 25/100) 1 tab EVERY 6 HOURS ORAL 06/11/19 18:00 07/11/19 17:59 06/15/19 05:25 Dextrose (Dextrose 50%) 25 ml Q30M PRN IV Hypoglycemia 06/11/19 14:15 07/11/19 14:14 Dextrose (Dextrose 50%) 50 ml Q30M PRN IV Hypoglycemia 06/11/19 14:15 07/11/19 14:14 Dextrose/Sodium Chloride 1,000 ml @ 50 mls/hr Q20H IV 06/11/19 16:00 07/11/19 15:59 06/14/19 23:51 Heparin Sodium (Porcine) (Heparin 5000 units/ml) 5,000 units EVERY 12 HOURS SUBQ 06/11/19 21:00 07/11/19 20:59 06/15/19 08:33 Lisinopril (Zestril) 10 mg DAILY ORAL 06/12/19 09:00 07/12/19 08:59 06/15/19 08:32 Lorazepam (Ativan 2mg/ml 1ml) 0.5 mg Q4H PRN IV For Anxiety 06/11/19 14:15 06/18/19 14:14 Metoprolol Succinate (Toprol XL) 25 mg Q12HR ORAL 06/11/19 21:00 07/11/19 20:59 06/15/19 08:32 Morphine Sulfate (Morphine Sulfate) 1 mg Q4H PRN IVP For Pain 06/11/19 14:15 06/18/19 14:14 Ondansetron HCl (Zofran) 4 mg Q6H PRN IVP Nausea & Vomiting 06/11/19 14:15 07/11/19 14:14 Pramipexole (Mirapex) 0.25 mg THREE TIMES A DAY ORAL 06/11/19 18:00 07/11/19 17:59 06/15/19 08:31 Prazosin HCl (Minipress) 1 mg Q8HR ORAL 06/11/19 22:00 07/11/19 21:59 06/15/19 05:24 Zinc Sulfate (Zinc Sulfate) 220 mg DAILY GT 06/13/19 09:00 06/23/19 08:59 06/15/19 08:32 Aleksandr Sibley MD Jun 15, 2019 13:13
--- NOTE | 2019-06-15 13:31 | NUR ---
RD ASSESSMENT & RECOMMENDATIONS SEE CARE ACTIVITY FOR COMPLETE ASSESSMENT DAILY ESTIMATED NEEDS: Needs based on Wound, underweight/ 49kg 30-35 kcals/kg 1624-1398 total kcals 1.5-2.0 g protein/kg 73-98 g total protein 25-30 mL/kg 5963-0703 total fluid mLs NUTRITION DIAGNOSIS: * Increased kcal/prot needs R/T wound healing, underweight status, progressive wt loss as evidenced by admitted w/ stage 3 sacral wound, low BMI per guidelines w/ 89% IBW, possible progressive wt loss of 18lbs/14.4% in 1 year * Swallowing difficulty R/T dysphagia, h/o Parkinson's disease as evidenced by pt on pureed texture diet [employer]CH[employer], 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 ENTERAL NUTRITION RECOMMENDATIONS: Jevity 1.2 @ 58ml/hr x 24 hrs to provide 1392ml, 1670kcal, 77g prot, 1123ml free water * Initiate Jevity 1.2 @ 18ml/hr x 6 hrs, advance 10ml q 4-6 hrs as tolerated to goal rate * HOB over 30 degrees/ water flush per MD ADDITIONAL RECOMMENDATIONS: * Calibrated bedscale wt for accurate CBW -> weekly wt monitoring * Monitor lytes daily w/ TF, replete as needed: high risk for refeeding * Wound healing: Add Vit C 500mg QD Add ZnSO4 220mg QD x 10 days Once TF well tolerated, add Kevin 1pkt BID
--- NOTE | 2019-06-15 14:04 | NUR ---
NURSE NOTES: Called [facility] to give report. NO answer. Per front desk coordinator, please call back in 20-30 minutes
--- NOTE | 2019-06-15 14:46 | NUR ---
NURSE NOTES: Called [facility] and gave report to Dixie.
[2019-06-15 16:00] VITALS: BP 126/79
--- NOTE | 2019-06-15 16:30 | NUR ---
NURSE NOTES: Patient was discharged per MD orders. Pt stable at time of discharge. PT unable to sign belongings list.
--- NOTE | 2019-06-15 18:47 | Discharge Summary ---
Discharge Summary Discharge Summary _ DATE OF ADMISSION: 06/11/2019 DATE OF DISCHARGE: 06/15/2019 DISCHARGED BY: REASON FOR ADMISSION: 73 years old female, resident of [facility] facility, with past medical history of hypertension, Parkinson disease, dysphagia, functional quadriplegia, major depression, nonverbal at baseline, presented for evaluation due to failure to thrive and request for G-tube placement. Patient by herself was unable to provide any history. Upon evaluation patient was tachycardic with heart rate 110 , blood pressure was elevated 184/96. Laboratory work-up revealed no leukocytosis. BUN 21 , creatinine 0.4. Stable LFT. Urinalysis with pyuria , +1 leukocyte esterase and few bacteria. EKG revealed sinus tachycardia, no acute ischemic changes. Chest x-ray revealed mild basal atelectasis. In emergency department patient received empiric antibiotic , pancultured and admitted for further management. CONSULTANTS: hospitalist Dr. Sibley GI specialist Dr. Hooks surgery Dr. Petty [facility] COURSE: Patient admitted to medical surgical floor. GI specialist consulted. Patient subsequently undergone EGD with PEG placement. During procedure found evidence of diffuse gastritis. Postprocedure abdominal binder applied. Head of bed was elevated at all times. G-tube site care provided. Patient later started on tube feeding with tube formula as per registered nurse practitioner recommendation. Strict aspiration precaution maintained. Patient was able to tolerate tube feeding. Bowel regimen instituted. Protein supplements implemented in plan of care as per registered nurse practitioner recommendation. Blood pressure was managed with beta-ping and NERIS inhibitor. DVT prophylaxis provided. Sinemet and Mirapex continued. Wound care for sacral decubitus ulcer stage III, present on admission, provided as per surgeon recommendation. Supportive care provided. Hemoglobin and hematocrit were closely monitored with goal to keep hemoglobin above 7. Prior to discharge hemoglobin 10.8 ,hematocrit 33.4. Renal parameters and electrolytes were closely monitored. Prior to discharge BUN from 21 down to 14 , creatinine remained stable. Patient initially received empiric antibiotic for urinary tract infection. Urine culture was negative. Blood culture were negative. Antibiotic stopped. Patient clinically stabilized and was ready for transfer back to [facility] facility for continuation of care. FINAL DIAGNOSES: Failure to thrive Protein calorie malnutrition Dysphagia Aspiration risk Status post EGD and PEG placement Gastritis Parkinson's disease Dementia Iron deficiency anemia Sacral decubitus ulcer, stage3, present on admission DISCHARGE MEDICATIONS: See Medication Reconciliation list. DISCHARGE INSTRUCTIONS: Patient was discharged to the [facility] facility. Follow up with medical doctor at the facility. I have been assigned to dictate discharge summary for this account. I was not involved in the patient's management. Alyssa Toledo NP Jun 15, 2019 18:47
== END 2019-06-15 16:10 | DRG 640 ==
LOC: EDBD 12:17 → EMR 13:41 → 4E 13:45 → EDBEDREQ 15:07
PROC: 0DH63UZ Insertion of Feeding Device into Stomach, Percutaneous Approach (ICD-10-PCS; principal; 2019-06-12 09:46)
DX: E86.0 Dehydration (principal); L89.153 Pressure ulcer of sacral region, stage 3; R53.2 Functional quadriplegia; E46 Unspecified protein-calorie malnutrition; R13.10 Dysphagia, unspecified; R53.1 Weakness; I48.91 Unspecified atrial fibrillation; G20 Parkinson's disease; R62.7 Adult failure to thrive; F02.80 Dementia in other diseases classified elsewhere, unspecified severity, without behavioral disturbance, psychotic disturbance, mood disturbance, and anxiety; K29.70 Gastritis, unspecified, without bleeding; D50.9 Iron deficiency anemia, unspecified; I10 Essential (primary) hypertension; E78.5 Hyperlipidemia, unspecified; I48.0 Paroxysmal atrial fibrillation; R97.0 Elevated carcinoembryonic antigen [CEA]
CPT/HCPCS: 36415; 71045; 80048; 80053; 81001; 85025; 85610; 85730; 86850; 86900; 86901; 87040; 87081; 87086; 92610; 93005; 94003; 94150; 97803; 99285

== ENCOUNTER 2020-07-01 23:08 | Inpatient (IN) | payer MEDICARE, MEDICAID ==
[~2020-07-01] VITALS: Ht 162.6 cm; Wt 66.9 kg
[~2020-07-01 23:08] MED LIST changes: +ACETAMINOPHEN325 M1 GT; -ACETAMINOPHEN325 M1 ORAL; +ASCORBIC ACID500 M4 GT; +CATAPRES0.1 MG ORAL; +PRAMIPEXOLE D0.25 MG ORAL; +ZINC SULFATE220 M1 GT
[2020-07-01 23:20] VITALS: BP 119/52
--- NOTE | 2020-07-01 23:20 | NUR ---
ED Nurse Note: brought in by [facility] from [facility] for fever. Facility reports pt temp was 103 and was given tylenol [facility] and was 98.6 before transfer. Pt temp at bedside 101.3 oral. Pt is trach and vent, placed on droplet precaution, on dolly driver, RT at bedside for vent placement, vss, nad, see intervention for vent setting, line established on right hand 20g, blood, covid, mrsa vre cre, urine collected and sent to lab. lara placed per ermd order and patent.
[2020-07-01] MEDS ORDERED: Sodium Chloride 1,900 ML IVLG ONE (23:30)
[2020-07-01] MEDS ORDERED: Vancomycin 1 GM in NS 275 ML IVPB ONE (23:30)
[2020-07-01] MEDS ORDERED: Cefepime HCl 2 GM in NS 110 ML IV ONE (23:30)
--- NOTE | 2020-07-01 23:40 | NUR ---
ED Nurse Note: xr at bedside
[2020-07-01] MEDS ORDERED: Hydrocortisone 100mg Inj IV ONE (23:45)
[2020-07-01] MEDS ORDERED: Acetaminophen 650 MG SUPP RECTAL ONE (23:50)
[2020-07-02] VITALS (7 sets, daily range): BP systolic 98–112; BP diastolic 50–60
[2020-07-02] MEDS ORDERED: Acetaminophen 650 MG SUPP RECTAL ONE
[2020-07-02 00:02] LABS: HEMATOCRIT 27.3 % (37.0-47.0); MEAN CORPUSCULAR VOLUME 91 FL (80-99); PLATELET COUNT 171 K/UL (150-450); RED BLOOD COUNT 2.98 M/UL (4.20-5.40); WHITE BLOOD COUNT 14.1 K/UL (4.8-10.8)
--- NOTE | 2020-07-02 00:13 | Diagnostic Imaging Report ---
EXAM: XR Chest, 1 View CLINICAL HISTORY: COUGH TECHNIQUE: Frontal view of the chest. COMPARISON: Chest radiograph dated 06/11/2019 FINDINGS: Lungs: Bilateral low lung volumes. Mild patchy bilateral airspace opacities. Pleural space: Unremarkable. No pneumothorax. Heart: Unremarkable. No cardiomegaly. Mediastinum: Unremarkable. Bones/joints: Unremarkable. Vasculature: Atherosclerotic vascular disease. Tubes, lines and devices: Tracheal tube in place. Percutaneous gastrostomy tube. IMPRESSION: Bilateral patchy airspace opacities. Differential includes multifocal pneumonia and pulmonary edema.
[2020-07-02 00:15] LABS: ANION GAP 8 mmol/L (5-15); BLOOD UREA NITROGEN 67 mg/dL (7-18); CALCIUM 9.7 MG/DL (8.5-10.1); CARBON DIOXIDE 28 MMOL/L (21-32); CHLORIDE 112 MMOL/L (98-107); CREATININE 0.8 MG/DL (0.55-1.30); POTASSIUM 4.3 MMOL/L (3.5-5.1); SODIUM 148 MMOL/L (136-145)
[2020-07-02 00:19] LABS: ALANINE AMINOTRANSFERASE 18 U/L (12-78); ALBUMIN 2.5 G/DL (3.4-5.0); ALBUMIN/GLOBULIN RATIO 0.4 (1.0-2.7); ALKALINE PHOSPHATASE 134 U/L (46-116); ASPARTATE AMINO TRANSFERASE 21 U/L (15-37); BILIRUBIN,TOTAL 0.3 MG/DL (0.2-1.0); PHOSPHORUS 1.6 MG/DL (2.5-4.9)
--- NOTE | 2020-07-02 00:41 | Emergency Room Report ---
History of Present Illness General Chief Complaint: Fever Source: Medical Record, EMS Present Illness HPI 74-year-old -Green[place]ic female with past medical history of chronic respiratory failure status post trach, PEG, COPD, A. fib, schizophrenia, Parkinson's disease, anxiety, quadriplegia, diabetes, gastritis brought in by ambulance from half-way facility with complaint of fever. T-max prior to arrival was 101. Patient was given unknown dose of Tylenol. Per EMS, patient is at her baseline. History is limited secondary to patient's clinical condition. The patient's symptoms were gradual onset, severity was moderate, duration since unknown amount of time. Quality: Febrile Past medical history: Chronic respiratory failure, COPD, A. fib, schizophrenia, Parkinson's disease, diabetes, quadriplegia, gastritis Past surgical history: Trach, PEG Smoking: Denies Alcohol use: Denies Drug use: Denies Review of systems: Limited secondary to patient's clinical condition 14 point Review of Systems is otherwise negative except per HPI Physical Exam: GENERAL: Awake, chronically ill-appearing, no acute distress. Febrile EYES: Pupils equal round and reactive reactive. Conjunctiva clear. ENT: External nose and ear appear normal. Oropharynx clear. Head atraumatic. Dry mucous membranes NECK: No thyromegaly. No midline tenderness. Trach in place, c/d/i, no discharge or bleeding. LUNGS: Normal respiratory effort. Clear to auscultation. No stridor. No rales. No wheezes. CARDIAC: Regular rate and rhythm. Normal radial pulses bilaterally. No significant pedal edema. ABDOMEN: Soft, nontender, and nondistended. No rebound/guarding. No hepatosplenomegaly. G-tube in place, epigastrium, c/d/i, no discharge or tenderness. MSK: Poor muscle tone, contractures with rigidity in extremities. Extremities without asymmetric deformity or swelling. NEUROLOGIC: Awake. Does not follow commands for motor and sensory exam. No truncal ataxia. GCS 2-4-2, protecting airway, intact gag reflex. Withdraws to pain in extremities, groans and opens eyes to sternal rub. SKIN: Warm and dry. No cyanosis or urticaria present. - COORDINATION OF CARE Case was discussed with: Patient , Patient's Physician Any labs and imaging that were ordered were interpreted as part of the medical decision making: Medical Decision Making/Plan: Differential diagnosis includes sepsis / severe sepsis, cellulitis, UTI, pneu monia , pyelonephritis, viral syndrome, among others. Vitals show patient has core temperature of 101F. Patient abdomen is benign, no evidence of emergent abdominal condition. Trach and PEG are clean without any signs of cellulitis Labs demonstrate leukocytosis. Also found to be hypernatremic and hyperchloremic secondary to severe dehydration and failure to thrive. UA is co nsistent with pyelonephritis. CXR shows multifocal pneumonia. Tracheostomy is in place. Chest x-ray is worsening in comparison to May 2019. Sepsis bundle initiated on arrival. Blood cultures, lactate drawn. Lactate was not not elevated , patient was given 30 cc/kg IV fluids by bolus. Empiric antibiotics were started. Patient will be admitted to the hospital for further care and evaluation. I spoke with Dr. Dupree, and reviewed the patients presentation, workup, results, and treatment. They will admit the patient for further care and evaluation, and assume care of the patient at this time. - CRITICAL CARE STATEMENT - Critical care performed 45 minutes) Time is exclusive of separately billable procedures. Time includes: direct patient care, patient reassessment, coordination of patient care, review of patient's medical records, medical consultation, family consultation regarding treatment decisions and documentation of patient care. Organ systems at risk: Cardiac / Circulatory / Pulm / Renal Allergies: Coded Allergies: No Known Allergies (Unverified , 11/22/15) COVID-19 Screening Contact w/high risk pt: Yes Experienced COVID-19 symptoms?: Yes COVID-19 Testing performed BINDER LAYER: Yes COVID-19 Screening: Negative COVID-19 COVID-19 Testing Source: unknown Nursing Documentation-PMH Hx Cardiac Problems: Yes - anemia, muscle weakness, dysphagia, quadriplegia Hx Hypertension: Yes Hx Cancer: No Hx Gastrointestinal Problems: Yes History Of Psychiatric Problem: Yes - schizoaffective D.D - major deprssion Hx Neurological Problems: Yes - PARKINSONS,MUSCLE WEAKNESS Physical Exam Vital Signs Date Time Temp Pulse Resp B/P (MAP) Pulse Ox O2 Delivery O2 Flow Rate FiO2 07/01/20 23:10 98.8 81 30 106/64 (78) Mechanical Ventilator 07/01/20 23:15 40 07/01/20 23:20 100 Sp02 EP Interpretation: reviewed, normal Medical Decision Making Diagnostic Impression: Primary Impression: Sepsis Additional Impressions: Pneumonia Hypernatremia Dehydration Chronic respiratory failure Tracheostomy dependence S/P percutaneous endoscopic gastrostomy (PEG) tube placement Failure to thrive (child) Dementia Paroxysmal A-fib Protein calorie malnutrition Iron deficiency Parkinson disease Anemia Pyelonephritis EKG Diagnostic Results JILLIAN Resendez 12-lead EKG (interpreted by me) Time: 2338 Indication: Rhythm analysis Tracing visualized and Interpreted by me. Rhythm: Normal sinus rhythm Rate: 80 bpm QTc: 433 Morphology: No_significant_ST_elevations_or_depressions, No STEMI Impression: Normal_sinus_rhythm_without_significant_abnormality Rhythm Strip Diag. Results Rhythm Strip Time: 00:40 EP Interpretation: yes Rate: 67 Rhythm: NSR, no PVC's, no ectopy Chest X-Ray Diagnostic Results Chest X-Ray Diagnostic Results : JILLIAN Resendez Chest X-Ray: Views: 1 view(s) Indication: Fever Findings: Normal heart size. Mediastinum normal. Multifocal pneumonia, left greater than right pleural effusion. Tracheostomy is in place. No pneumothorax Impression: Multifocal pneumonia The X-ray(s) were independently viewed and interpreted contemporaneously Electronically signed by Brenda gillette DO Reevaluation Time: 00:40 Last Vital Signs Date Time Temp Pulse Resp B/P (MAP) Pulse Ox O2 Delivery O2 Flow Rate FiO2 07/01/20 23:20 76 25 Mechanical Ventilator 100 07/01/20 23:20 101.3 119/52 100 Status: improved Disposition: ADMITTED INPATIENT Admit Decision Time: 00:40 Condition: Serious Referrals: Tony Dupree DO (PCP) Brenda Calix D.O. Jul 02, 2020 00:41
[2020-07-02 00:48] LABS: BILIRUBIN, URINE NEGATIVE (NEGATIVE); COLOR,URINE YELLOW; GLUCOSE, URINE (UA) NEGATIVE (NEGATIVE); KETONES,URINE NEGATIVE (NEGATIVE); LEUKOCYTE ESTERASE ,URINE 3+ (NEGATIVE); NITRITE,URINE NEGATIVE (NEGATIVE); PH,URINE 6.5 (4.5-8.0); PROTEIN,URINE 2+ (NEGATIVE); UROBILINOGEN,URINE NORMAL MG/DL (0.0-1.0)
[2020-07-02 00:55] LABS: APPEARANCE,URINE SLIGHTLY CLOUDY
--- NOTE | 2020-07-02 02:28 | NUR ---
ED Nurse Note: Dr Dupree called for order but no response.
--- NOTE | 2020-07-02 04:00 | NUR ---
ED Nurse Note: pt placed in hospital bed.
[2020-07-02] MEDS ORDERED: FAMOTIDINE20 MG GT (06:21)
[2020-07-02] MEDS ORDERED: DOCUSATE SODIU100 MG GT (06:21)
[2020-07-02] MEDS ORDERED: SYNTHROID100 MCG GT (06:21)
[2020-07-02] MEDS ORDERED: AMIODARONE HCL400 M1 GT (06:21)
[2020-07-02] MEDS ORDERED: VITAMIN D325 MC1 GT (06:21)
[2020-07-02] MEDS ORDERED: SINEMET 25-1001 EAC1 GT (06:21)
[2020-07-02] MEDS ORDERED: JUVEN PACKET1 EAC1 GT (06:21)
[2020-07-02] MEDS ORDERED: ASCORBIC ACID500 MG GT (06:21)
[2020-07-02] MEDS ORDERED: FUROSEMIDE20 M1 GT (06:21)
[2020-07-02] MEDS ORDERED: NAMENDA5 MG GT (06:21)
[2020-07-02] MEDS ORDERED: ACIDOPHILUS1 EAC6 GT (06:21)
[2020-07-02] MEDS ORDERED: ZINC SULFATE220 M1 GT (06:21)
--- NOTE | 2020-07-02 07:10 | NUR ---
ED Nurse Note: Received report from Boaz Garcia RN for continuity of care. Pt on bed, awake; non-verbal; establishes eye contact; on mech vent; no acute distress noted.
--- NOTE | 2020-07-02 07:45 | NUR ---
ED Nurse Note: Pt was transferred to SDU under the care of Dr. Tony Dupree. Report was given to CRISTY Barajas in SDU Unit. Pt was transferred on stable condition; family aware of pt transfer.
--- NOTE | 2020-07-02 08:30 | NUR ---
NURSE NOTES: Pt arrived to the unit at 0800 via hospital bed. Admitting Dx: sepsis with severe dehydration. Admitting Dr Oneil. Pt has trach to vent with settings SIMV 13 TV 450 PEEP 5 pressure support 12 FiO2 100%. Resp: Pt has unlabored breathing with no sign of resp distress. Cardiac: cardiac/vascular sonographer was placed on pt, SB is noted with HR in 50s. GI Bowel movement was noted when transferring pt, moderate brown pasty. : Pt arrived with [place] per nurse it was changed on arrival draining yellow urine to gravity. Skin: Pt has stage IV sacral with tunneling, left ear lobe DTI, Bilat heel blanchable redness. Wound pictures were taken and uploaded. Wound care consult was ordered as well as a P500 mattress. IV: Pt has right hand 20g SL. Pt has no belongings. Records were reviewed from [facility] . bed in lowest locked position, brakes engaged, will continue with plan of care
[2020-07-02] MEDS: Cefepime HCl 1 GM in D5W 55 ML IVPB SCH ×2 (09:00→20:45)
--- NOTE | 2020-07-02 09:00 | NUR ---
NURSE NOTES: Trach suctioning and oral care performed
--- NOTE | 2020-07-02 09:00 | NUR ---
NURSE NOTES: Breast lump noted on both breasts, notified dr Oneil and ordered an US of both breasts. DR Oneil also aware of phos 1.6, no further orders
--- NOTE | 2020-07-02 09:00 | NUR ---
NURSE NOTES: Dr Juarez called and asked what meds pt was previously on at SN[facility], meds reviewed and continued per DR Juarez
--- NOTE | 2020-07-02 09:41 | Pulmonology Progress Note ---
Subjective ROS Limited/Unobtainable: Yes Allergies: Coded Allergies: No Known Allergies (Unverified , 11/22/15) Objective Last 24 Hour Vital Signs Date Time Temp Pulse Resp B/P (MAP) Pulse Ox O2 Delivery O2 Flow Rate FiO2 07/02/20 07:45 98.5 60 17 100/54 100 Mechanical Ventilator 100 07/02/20 07:45 98.5 58 17 100/54 100 Mechanical Ventilator 100 07/02/20 06:04 54 16 98/50 100 Mechanical Ventilator 100 07/02/20 03:31 98.5 57 13 112/52 100 Mechanical Ventilator 100 07/02/20 03:02 59 20 Mechanical Ventilator 100 100 07/02/20 01:30 64 13 107/54 100 Mechanical Ventilator 100 07/02/20 00:37 99.4 07/01/20 23:20 76 25 Mechanical Ventilator 100 07/01/20 23:20 101.3 75 22 119/52 100 Mechanical Ventilator 07/01/20 23:15 76 21 40 07/01/20 23:10 98.8 81 30 106/64 (78) Mechanical Ventilator Intake and Output 07/01/20 07/02/20 19:00 07:00 Intake Total 2000 ml Balance 2000 ml Intake IV Total 2000 ml Microbiology Date/Time Source Procedure Growth Status 07/01/20 23:30 Nasopharynx SARS-CoV-2 RdRp Gene Assay - Final Complete Laboratory Tests 07/01/20 23:30: White Blood Count 14.1H, Red Blood Count 2.98L, Hemoglobin 9.0L, Hematocrit 27.3L, Mean Corpuscular Volume 91, Mean Corpuscular Hemoglobin 30.1, Mean Corpuscular Hemoglobin Concent 32.9, Red Cell Distribution Width 14.0, Platelet Count 171, Mean Platelet Volume 8.6, Neutrophils (%) (Auto) , Lymphocytes (%) (Auto) , Monocytes (%) (Auto) , Eosinophils (%) (Auto) , Basophils (%) (Auto) , Prothrombin Time 11.5, Prothromb Time International Ratio 1.0, Activated Partial Thromboplast Time 26, Urine Color Yellow, Urine Appearance Slightly cloudy, Urine pH 6.5, Urine Specific [place] 1.010, Urine Protein 2+H, Urine Glucose (UA) Negative, Urine Ketones Negative, Urine Blood 4+H, Urine Nitrite Negative, Urine Bilirubin Negative, Urine Urobilinogen Normal, Urine Leukocyte Esterase 3+H, Urine RBC 40-60H, Urine WBC 40-60H, Urine Squamous Epithelial Cells Few, Urine Bacteria ModerateH, Sodium Level 148H, Potassium Level 4.3, Chloride Level 112H, Carbon Dioxide Level 28, Anion Gap 8, Blood Urea Nitrogen 67H, Creatinine 0.8, Estimat Glomerular Filtration Rate > 60, Glucose Level 137H, Lactic Acid Level 1.90, Calcium Level 9.7, Phosphorus Level 1.6L, Magnesium Level 2.3, Ferritin 360, Total Bilirubin 0.3, Aspartate Amino Transf (AST/SGOT) 21, Alanine Aminotransferase (ALT/SGPT) 18, Alkaline Phosphatase 134H, Lactate Dehydrogenase 295H, Troponin I 0.029, C-Reactive Protein, Quantitative 6.4H, Pro-B-Type Natriuretic Peptide 1250H, Total Protein 8.4H, Albumin 2.5L, Globulin 5.9, Albumin/Globulin Ratio 0.4L, Lipase 116 Current Medications Medications (Trade) Dose Ordered Sig/Alex Route PRN Reason Start Time Stop Time Status Last Admin Dose Admin Cefepime HCl 1 gm/ Dextrose 55 ml @ 110 mls/hr EVERY 12 HOURS IVPB 07/02/20 09:00 07/09/20 08:59 Vancomycin HCl ([facility] pharmacy to dose) 1 ea DAILY PRN MISC Per rx protocol 07/02/20 08:30 08/01/20 08:29 Vancomycin HCl 1 gm/Dextrose 275 ml @ 183.708 mls/hr Q24H IVPB 07/02/20 22:00 07/07/20 21:59 Assessment/Plan Assessment/Plan Pulmonary Consultation HPI Patient is a 74-year-old woman with past medical history of chronic ventilator dependant respiratory failure status post trach, PEG, COPD, Atrial fibrillation, Schizophrenia, Parkinson's disease, Anxiety, Quadriplegia, Diabetes, gastritis. Admitted with UTI/Pyelonephritis,pneumonia after being noted to have a fever. History is limited secondary to patient's clinical condition. Past medical history: Chronic ventilator dependant respiratory failure, COPD, Atrial fibrillation, schizophrenia, Parkinson's disease, diabetes, quadriplegia, dysphagia, anemia,gastritis, sacral decubitus Past surgical history: Trach, PEG Allergies: No Known Allergies Social history NA Family history NA Review of systems: Limited secondary to patient's clinical condition Physical Exam Vital Signs noted Date Time Temp Pulse Resp B/P (MAP) Pulse Ox O2 Delivery O2 Flow Rate FiO2 07/01/20 23:10 98.8 81 30 106/64 (78) Mechanical Ventilator 07/01/20 23:15 40 07/01/20 23:20 100 GENERAL: Awake, chronically ill-appearing, no acute distress. Febrile EYES: Pupils equal round and reactive reactive. Conjunctiva clear. ENT: External nose and ear appear normal. Oropharynx clear. Head atraumatic. Dry mucous membranes NECK: No thyromegaly. No midline tenderness. Trach in place, c/d/i, no discharge or bleeding. LUNGS: Normal respiratory effort. Clear to auscultation. No stridor. No rales. No wheezes. CARDIAC: Regular rate and rhythm. Normal radial pulses bilaterally. No significant pedal edema. ABDOMEN: Soft, nontender, and nondistended. No rebound/guarding. No hepatosplenomegaly. G-tube in place, epigastrium, c/d/i, no discharge or tenderness. MSK: Poor muscle tone, contractures with rigidity in extremities. Extremities without asymmetric deformity or swelling. NEUROLOGIC: Awake. Does not follow commands for motor and sensory exam. No truncal ataxia. GCS 2-4-2, protecting airway, intact gag reflex. Withdraws to pain in extremities, groans and opens eyes to sternal rub. SKIN: Warm and dry. No cyanosis or urticaria present. 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 Mediastinum normal. Multifocal pneumonia, left greater than right pleural effusion. Tracheostomy is in place. No pneumothorax Jasvir Juarez MD Jul 02, 2020 09:41
[2020-07-02] MEDS ORDERED: HYDROcodone/Acetamin 5/325 tab GT PRN (09:45)
[2020-07-02] MEDS ORDERED: Acetaminophen 650mg/20.3ml GT PRN ×2 (09:45→10:00)
--- NOTE | 2020-07-02 10:45 | NUR ---
NURSE NOTES: Per DR Hooks continue pt on Jevity 1.2@ 65/hr with 100 flush q6h
[2020-07-02] MEDS: NovoLOG Insulin Flexpen SUBQ SCH ×3 (12:00→23:31)
--- NOTE | 2020-07-02 13:36 | Consultation ---
Consult Note Consult Note I was asked to evaluate the patient at the request of Dr. Cantrell who is covering for Dr. Dupree, for azotemia and electrolyte imbalances. Patient seen and examined. Data reviewed. Emergency room note: 74-year-old -I[place] female with past medical history of chronic respiratory failure status post trach, PEG, COPD, A. fib, schizophrenia, Parkinson's disease, anxiety, quadriplegia, diabetes, gastritis brought in by ambulance from longterm facility with complaint of fever. T-max prior to arrival was 101. Patient was given unknown dose of Tylenol. Per EMS, patient is at her baseline. History is limited secondary to patient's clinical condition. The patient's symptoms were gradual onset, severity was moderate, duration since unknown amount of time. Quality: Febrile Past medical history: Chronic respiratory failure, COPD, A. 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 GENERAL APPEARANCE: Nonverbal. Not in any acute distress HEAD AND NECK: Status post tracheostomy. Has facial asymmetry and deviation of tongue to the left side. HEART: Normal rate. Tachycardic at times LUNGS: Clear on ventilator. Decreased breath sounds over the bases ABDOMEN: Soft. G-tube feeding. EXTREMITIES: No edema. Had contracture. SKIN: Has pressure ulcer. NEUROLOGIC: Opens eyes. LABORATORY AND DIAGNOSTIC DATA: Sodium 150, potassium 4.1, chloride 118, bicarb 26, BUN 50, creatinine 0.7, glucose 159. BNP is 1440. WBC today is 8.4, hemoglobin 7.9, hematocrit 25.2, platelets 152. UA is showing wbc's of 40 to 60, rbc's of 40 to 60, leukocyte esterase 3+, blood 4+. Chest x-ray showed bilateral patchy airspace diseases, multifocal pneumonia, or UTI. COVID test was negative. . . Assessment/Plan Impression: Hypernatremia, dehydration, Azotemia, dehydration, Pneumonia, sepsis, pyelonephritis Chronic trach and vent PEG Anemia Parkinson's Diabetes mellitus History of atrial fibrillation Plan: Continue same medication Recheck labs iron panel thyroid panel in a.m. 2D echocardiogram to evaluate LV function Albumin bolus Continue per consultants Urine studies Dante Chau MD Jul 02, 2020 13:36
[2020-07-02] MEDS: Ascorbic Acid 500mg tab GT SCH (18:25)
--- NOTE | 2020-07-02 18:50 | Cardiology Progress Note ---
Assessment/Plan Assessment/Plan The patient is seen and examined, full consult note will be dictated. Objective Last 24 Hour Vital Signs Date Time Temp Pulse Resp B/P (MAP) Pulse Ox O2 Delivery O2 Flow Rate FiO2 07/02/20 16:00 99.3 60 20 108/59 (75) 100 07/02/20 16:00 57 07/02/20 16:00 100 07/02/20 16:00 Mechanical Ventilator 07/02/20 15:20 48 12 30 07/02/20 12:00 100 07/02/20 12:00 97.5 63 18 108/60 (76) 100 07/02/20 12:00 56 07/02/20 11:30 Mechanical Ventilator 07/02/20 11:20 67 18 40 07/02/20 10:24 Mechanical Ventilator 07/02/20 08:00 47 12 40 07/02/20 08:00 47 12 100 Mechanical Ventilator 40 07/02/20 07:45 98.5 60 17 100/54 100 Mechanical Ventilator 100 07/02/20 07:45 98.5 58 17 100/54 100 Mechanical Ventilator 100 07/02/20 06:04 54 16 98/50 100 Mechanical Ventilator 100 07/02/20 03:31 98.5 57 13 112/52 100 Mechanical Ventilator 100 07/02/20 03:02 59 20 Mechanical Ventilator 100 100 07/02/20 01:30 64 13 107/54 100 Mechanical Ventilator 100 07/02/20 00:37 99.4 07/01/20 23:20 76 25 Mechanical Ventilator 100 07/01/20 23:20 101.3 75 22 119/52 100 Mechanical Ventilator 07/01/20 23:15 76 21 40 07/01/20 23:10 98.8 81 30 106/64 (78) Mechanical Ventilator Intake and Output 07/01/20 07/02/20 19:00 07:00 Intake Total 2000 ml Balance 2000 ml Intake IV Total 2000 ml Laboratory Tests Test 07/01/20 23:30 07/02/20 12:57 07/02/20 13:49 07/02/20 18:09 White Blood Count 14.1 K/UL (4.8-10.8) H Red Blood Count 2.98 M/UL (4.20-5.40) L Hemoglobin 9.0 G/DL (12.0-16.0) L Hematocrit 27.3 % (37.0-47.0) L Mean Corpuscular Volume 91 FL (80-99) Mean Corpuscular Hemoglobin 30.1 PG (27.0-31.0) Mean Corpuscular Hemoglobin Concent 32.9 G/DL (32.0-36.0) Red Cell Distribution Width 14.0 % (11.6-14.8) Platelet Count 171 K/UL (150-450) Mean Platelet Volume 8.6 FL (6.5-10.1) Neutrophils (%) (Auto) % (45.0-75.0) Lymphocytes (%) (Auto) % (20.0-45.0) Monocytes (%) (Auto) % (1.0-10.0) Eosinophils (%) (Auto) % (0.0-3.0) Basophils (%) (Auto) % (0.0-2.0) Prothrombin Time 11.5 SEC (9.30-11.50) Prothromb Time International Ratio 1.0 (0.9-1.1) Activated Partial Thromboplast Time 26 SEC (23-33) Urine Color Yellow Urine Appearance Slightly cloudy Urine pH 6.5 (4.5-8.0) Urine Specific [place] 1.010 (1.005-1.035) Urine Protein 2+ (NEGATIVE) H Urine Glucose (UA) Negative (NEGATIVE) Urine Ketones Negative (NEGATIVE) Urine Blood 4+ (NEGATIVE) H Urine Nitrite Negative (NEGATIVE) Urine Bilirubin Negative (NEGATIVE) Urine Urobilinogen Normal MG/DL (0.0-1.0) Urine Leukocyte Esterase 3+ (NEGATIVE) H Urine RBC 40-60 /HPF (0 - 2) H Urine WBC 40-60 /HPF (0 - 2) H Urine Squamous Epithelial Cells Few /LPF (NONE/OCC) Urine Bacteria Moderate /HPF (NONE) H Sodium Level 148 MMOL/L (136-145) H Potassium Level 4.3 MMOL/L (3.5-5.1) Chloride Level 112 MMOL/L (98-107) H Carbon Dioxide Level 28 MMOL/L (21-32) Anion Gap 8 mmol/L (5-15) Blood Urea Nitrogen 67 mg/dL (7-18) H Creatinine 0.8 MG/DL (0.55-1.30) Estimat Glomerular Filtration Rate > 60 mL/min (>60) Glucose Level 137 MG/DL (74-106) H Lactic Acid Level 1.90 mmol/L (0.4-2.0) Calcium Level 9.7 MG/DL (8.5-10.1) Phosphorus Level 1.6 MG/DL (2.5-4.9) L Magnesium Level 2.3 MG/DL (1.8-2.4) Ferritin 360 NG/ML (8-388) Total Bilirubin 0.3 MG/DL (0.2-1.0) Aspartate Amino Transf (AST/SGOT) 21 U/L (15-37) Alanine Aminotransferase (ALT/SGPT) 18 U/L (12-78) Alkaline Phosphatase 134 U/L (46-116) H Lactate Dehydrogenase 295 U/L (81-234) H Troponin I 0.029 ng/mL (0.000-0.056) C-Reactive Protein, Quantitative 6.4 mg/dL (0.00-0.90) H Pro-B-Type Natriuretic Peptide 1250 pg/mL (0-125) H Total Protein 8.4 G/DL (6.4-8.2) H Albumin 2.5 G/DL (3.4-5.0) L Globulin 5.9 g/dL Albumin/Globulin Ratio 0.4 (1.0-2.7) L Lipase 116 U/L (73-393) POC Whole Blood Glucose 96 MG/DL (74-106) 113 MG/DL (74-106) H Arterial Blood pH 7.460 (7.350-7.450) Arterial Blood Partial Pressure CO2 39.7 mmHg (35.0-45.0) Arterial Blood Partial Pressure O2 147.9 mmHg (75.0-100.0) H Arterial Blood HCO3 27.6 mmol/L (22.0-26.0) H Arterial Blood Oxygen Saturation 98.6 % (95-100) Arterial Blood Base Excess 3.5 (-2-2) H Lencho Test Positive Microbiology Date/Time Source Procedure Growth Status 07/01/20 23:30 Nasopharynx SARS-CoV-2 RdRp Gene Assay - Final Complete Flex Winters MD Jul 02, 2020 18:50
[2020-07-02] MEDS: Amiodarone 200mg tab GT SCH (19:15)
--- NOTE | 2020-07-02 19:15 | NUR ---
NURSE NOTES: RECEIVED REPORT FROM CRISTY RANGEL. PATIENT AWAKE, NON-VERBAL, ABLE TO TRACK WITH EYES. NO S/SX OF PAIN OR DISCOMFORT NOTED. BREATHING IS EVEN AND UNLABORED WITH NO S/SX OF DISTRESS ON CURRENT SETTINGS: TRACH TO VENT SIMV 12, VT 450, FIO2 30%, PEEP 5; CURRENTLY SAO2 100%. GTF RUNNING PRESCRIBED; GT SIDE FLUSHED, PATENT AND ASYMPTOMATIC WITH NO RESIDUAL. MEJIA CATHETER DRAINING WELL TO GRAVITY WITH URINE CLEAR AND DARK YELLOW IN COLOR. IV SITE ON RIGHT HAND PATENT, INTACT, AND ASYMPTOMATIC. FALL AND ASPIRATION PRECAUTIONS IN PLACE. BED LOCKED AND IN LOWEST POSITION, SIDERAILS UP X 3. CALL LIGHT WITHIN REACH, WILL CONTINUE TO MONITOR.
--- NOTE | 2020-07-02 19:36 | NUR ---
NURSE NOTES: CONTACTED DR. Kellen RANGEL FOR CV PCR ORDER. AWAITING CALL BACK. Addendum: 07/03/20 at 0235 by Catalina Ferraro RN NURIS
--- NOTE | 2020-07-02 19:45 | NUR ---
NURSE NOTES: AMIODARONE HELD DUE TO SBP OF 99 AND HR OF 53.
[2020-07-02] MEDS ORDERED: VITAMIN D350 MC1 GT (20:49)
[2020-07-02] MEDS ORDERED: PROTEINEX-18 LI30 ML GT (20:49)
[2020-07-02] MEDS ORDERED: AMIODARONE HCL200 MG GT (20:49)
[2020-07-02] MEDS: Heparin 5000 units/ml inj SUBQ SCH (20:49)
[2020-07-02] MEDS ORDERED: HYDRALAZINE HCL10 MG GT (20:49)
[2020-07-02] MEDS ORDERED: MULTIVITAM9 MG/15 M1 GT (20:49)
[2020-07-02] MEDS ORDERED: NORCO 5-325 TA1 EAC1 ORAL (20:49)
[2020-07-02] MEDS ORDERED: ASCORBIC A500 MG/1 M GT (20:49)
[2020-07-02] MEDS ORDERED: Amiodarone 200mg tab GT SCH (21:00)
--- NOTE | 2020-07-02 21:00 | History and Physical Report ---
DATE OF ADMISSION: 07/01/[address] Tony Dupree. This is Dr. Tony Dupree's patient. HISTORY OF PRESENT ILLNESS: A poor historian. The patient is here for sepsis, dehydration, and failure to thrive. The patient also basically had a fever of 101. The patient has chronic respiratory failure, status post PEG and trach, COPD, AFib, schizophrenia, Parkinson's, anxiety, quadriplegic, diabetes, gastritis, who came from facility for fever and septic workup. It has been going on for two days. Again, the patient is a poor historian. The patient is admitted for sepsis, fever, rule out pyelonephritis and UTI. The patient also has pneumonia. According to the ER doctor, initial COVID exam was negative. Antibiotics and Solu-Medrol were ordered in the ER. The patient was admitted to the step-down. Cannot get any history from the patient. The patient is admitted for sepsis and pneumonia. PAST MEDICAL HISTORY: Significant for chronic respiratory insufficiency, COPD, atrial fibrillation, schizophrenia, Parkinson disease, diabetes, quadriplegic, gastroparesis, anxiety, constipation as well as high potassium, hypertension, dementia, history of wounds, history of arrhythmia, and GERD. PAST SURGICAL HISTORY: Trach and PEG. MEDICATIONS: Sinemet, Levoxyl, lisinopril, Protonix, and zinc. ALLERGIES: No known allergies. FAMILY HISTORY: Unable to obtain. SOCIAL HISTORY: Unable to obtain. REVIEW OF SYSTEMS: Unable to obtain. Poor historian. PHYSICAL EXAMINATION: VITAL SIGNS: Temperature is 97.5, pulse 63, blood pressure 108/60. HEENT: PERRLA. NECK: Trach site is intact. CHEST: Clear to auscultation. CARDIOVASCULAR: Irregularly irregular. GASTROINTESTINAL: Soft. Positive bowel sounds. No organomegaly. G-tube site intact. EXTREMITIES: The patient does have contractures. SKIN: Poor skin integrity per the nursing notes. NEUROLOGIC: Unable to get neurological exam the patient's dementia. LABORATORY DATA: WBC of 14.1, hemoglobin 9, platelets 171,000. Sodium 148, potassium 4.3, BUN of 67, creatinine of 0.8, and glucose of 137. Troponin 0.029. ASSESSMENT AND PLAN: Azotemia, sepsis, fever, rule out pyelonephritis, pneumonia, COVID negative. I have consulted Dr. Winters, Dr. Childs, Dr. Hooks, Dr. Chau, and Dr. Mahesh Nicole. I have consulted all of them to help with the above-mentioned abnormalities, symptoms, and abnormal findings. Antibiotics per Dr. Mahesh Nicole. Sandeep Oneil M.D. DR: BEVERLY JOB#: [id number] CC:
[2020-07-02] MEDS: Vancomycin 1gm/D5W 275ml IVPB SCH ×2 (22:20)
[2020-07-03] VITALS: BP 105/50
--- NOTE | 2020-07-03 01:00 | Consultation ---
DATE OF CONSULTATION: 07/02/2020 CARDIOLOGY CONSULTATION CONSULTING PHYSICIAN: Flex Winters MD REFERRING PHYSICIAN: Sandeep Oneil MD ADDITIONAL REFERRING PHYSICIAN: Tony Dupree DO REASON FOR CONSULTATION: Management of congestive heart failure. HISTORY OF PRESENT ILLNESS: The patient is a very unfortunate 74-year-old female who is a resident of a jail facility and was transferred to this facility for evaluation and management of fever of 101. The patient is demented. Therefore, history and physical could not be obtained directly from the patient. Coronary artery disease risk factor in this patient includes diabetes mellitus. At time of arrival to this facility, initial blood pressure was 106/64 mmHg and heart rate was 81. A 12-lead electrocardiogram showed sinus rhythm at rate of 80 with no acute ischemic features. The patient had blood test in the emergency department, which showed elevation of proBNP at 1250, a troponin I level was however within normal limits at 0.029. Chest x-ray in the emergency department was significant for cardiomegaly and bilateral patchy airspace opacities suggestive of multifocal pneumonia versus pulmonary edema. The patient was admitted to [facility] for further evaluation and management of fever. Cardiology consultation was made at the request of Dr. Oneil, who is covering for Dr. Tony Dupree. PAST MEDICAL HISTORY: 1. Ventilatory drive respiratory failure, status post tracheostomy tube placement. 2. COPD. 3. Paroxysmal atrial fibrillation. 4. Schizophrenia. 5. Parkinson disease. 6. Diabetes mellitus. 7. Quadriplegia. 8. Gastritis. PAST SURGICAL HISTORY: 1. Tracheostomy tube placement. 2. PEG placement. 3. Smoking. No history of tobacco, alcohol, or illicit drug use. REVIEW OF SYSTEMS: A 12-system review could not be obtained as the patient does not provide history. MEDICATIONS: List of medications in this patient includes acetaminophen 650 mg G-tube q.4h. p.r.n. pain, amantadine 200 mg G-tube twice daily, amiodarone 400 mg G-tube q.12h., vitamin C 250 mg G-tube twice daily, ascorbic acid 500 mg G-tube daily, bisacodyl 10 mg rectal p.r.n. constipation, Sinemet 25/100 G-tube 3 times a day, cefepime in dextrose 2 g IV piggyback q.12h. for 2 days, vitamin D3 25 mcg G-tube daily, clonidine 0.1 mg G-tube q.6h., Colace 100 mg G-tube twice daily, famotidine 20 mg G-tube daily, Lasix 10 mg G-tube daily, Robitussin mL G-tube q.6h. p.r.n. cough, heparin sodium 5000 units q.12h., acidophilus 1 tablet G-tube daily, Synthroid 100 mcg G-tube daily, lisinopril 10 mg G-tube daily, Maalox 30 mL G-tube daily, Namenda 5 mg G-tube twice a day, metoprolol 25 mg G-tube twice daily, multivitamin 1 tablet G-tube daily, nifedipine XL 90 mg G-tube daily, Zofran 4 mg q.6h. p.r.n. nausea or vomiting, pantoprazole or Protonix 40 mg G-tube daily, Mirapex 0.25 mg G-tube 3 times a day, prazosin 1 mg G-tube 3 times a day, zinc sulfate 220 mg G-tube daily, and zolpidem 5 mg G-tube nightly p.r.n. insomnia. FAMILY HISTORY: No premature coronary artery disease in first-degree relatives. SOCIAL HISTORY: Denies any tobacco, alcohol, or illicit drug use. PHYSICAL EXAMINATION: VITAL SIGNS: Blood pressure was 106/64, pulse of 81, respirations 30, temperature 98.8 degrees Fahrenheit, O2 saturation 100% on FiO2 of 40%. GENERAL: This is a very unfortunate 74-year-old female with chronic airway care, chronically ill-appearing, in no apparent respiratory distress. HEENT: Atraumatic and normocephalic. Anicteric. Pupils equal, round, and reactive to light and accommodation. Extraocular muscles intact. NECK: Presence of a tracheostomy tube. No discharge or bleeding. JVP cannot be assessed, no carotid bruit. LUNGS: Bilateral basilar crackles. ABDOMEN: Soft, nontender, nondistended. No hepatosplenomegaly. Positive PEG in place. No discharge or tenderness. EXTREMITIES: No evidence of edema, clubbing, or cyanosis. Contraction with rigidity in the extremities was seen. LABORATORY FINDINGS: Sodium 148, potassium 4.3, chloride 112, bicarbonate 28, BUN of 67, creatinine 0.8, glucose 137. Magnesium 2.3. Troponin I is 0.029. C-reactive protein is 6.4. ProBNP was 1250. INR is 1.0. ASSESSMENT AND PLAN: The patient is a very unfortunate 74-year-old female seen in Cardiology consultation. 1. Bilateral pulmonary edema on the chest x-ray with associated elevation of proBNP. This may suggest congestive heart failure. We had 2D echocardiography today, which showed in fact normal LV systolic function with stage 1 LV diastolic dysfunction suggestive of impaired relaxation with normal intracardiac filling pressure. RVSP was measured at 33 mmHg. I would continue with hydration in this patient and eliminate diuretics. 2. History of diabetes mellitus. The patient will benefit from aspirin and statin. 3. History of hypertension, history of persistent atrial fibrillation. We will continue amiodarone 200 mg once daily. I would like to thank Dr. Oneil for the courtesy of this consultation. Flex Winters M.D. DR: Jose JOB#: [id number] CC:
--- NOTE | 2020-07-03 01:30 | NUR ---
NURSE NOTES: COMPLETE SPONGE BATH GIVEN, COMPLETE LINEN CHANGED, ORAL CARE PROVIDED, WOUND CARE DONE- PATIENT TOLERATED WELL WITH NO S/SX OF PAIN OR DISCOMFORT. WILL CONTINUE TO MONITOR FOR ANY CHANGES.
[2020-07-03 04:00] VITALS: BP 109/56
[2020-07-03] MEDS: NovoLOG Insulin Flexpen SUBQ SCH ×4 (06:00→23:09)
[2020-07-03 06:25] LABS: HEMATOCRIT 25.2 % (37.0-47.0); HEMOGLOBIN 7.9 G/DL (12.0-16.0); MEAN CORPUSCULAR VOLUME 93 FL (80-99); PLATELET COUNT 152 K/UL (150-450); RED CELL DISTRIBUTION WIDTH 14.7 % (11.6-14.8); WHITE BLOOD COUNT 8.4 K/UL (4.8-10.8)
[2020-07-03 06:43] LABS: ALANINE AMINOTRANSFERASE 25 U/L (12-78); ALBUMIN 2.1 G/DL (3.4-5.0); ALBUMIN/GLOBULIN RATIO 0.4 (1.0-2.7); ALKALINE PHOSPHATASE 114 U/L (46-116); ANION GAP 6 mmol/L (5-15); ASPARTATE AMINO TRANSFERASE 20 U/L (15-37); BILIRUBIN,TOTAL 0.2 MG/DL (0.2-1.0); BLOOD UREA NITROGEN 50 mg/dL (7-18); CALCIUM 9.4 MG/DL (8.5-10.1); CARBON DIOXIDE 26 MMOL/L (21-32); CHLORIDE 118 MMOL/L (98-107); CHOLESTEROL 129 MG/DL (< 200); CREATININE 0.7 MG/DL (0.55-1.30); FERRITIN 386 NG/ML (8-388); GAMMA GLUTAMYL TRANSPEPTIDASE 15 U/L (5-85); HDL CHOLESTEROL 37 MG/DL (40-60); PHOSPHORUS 2.2 MG/DL (2.5-4.9); POTASSIUM 4.1 MMOL/L (3.5-5.1); SODIUM 150 MMOL/L (136-145); TRIGLYCERIDES 59 MG/DL (30-150)
[2020-07-03 07:09] LABS: IRON 18 ug/dL (50-175); TOTAL IRON BINDING CAPACITY 172 ug/dL (250-450)
--- NOTE | 2020-07-03 07:10 | NUR ---
NURSE HAND-OFF REPORT: Important Events on Shift: N/A Patient Status: STABLE Diet: JEVITY 1.2 @ 65 ML/HR X 20 HOURS (OFF [id number]) Pending Orders: CV-PCR Pending Results/Labs:10/4 AM LABS Pending MD notification: N/A Latest Vital Signs: Temperature 98.1 , Pulse 52 , B/P 109 /56 , Respiratory Rate 12 , O2 SAT 100 , Mechanical Ventilator, O2 Flow Rate . Vital Sign Comment: STABLE EKG Rhythm: Sinus Bradycardia Rhythm change?: N MD Notified?: - MD Response: Latest [place] Fall Score: 70 Fall Risk: High Risk Safety Measures: Call light Within Reach, Bed Alarm Zone 2, Side Rails Side Rails x3, Bed position Low and Locked. Fall Precautions: Yellow Socks Yellow Gown Door Sign Patient Fall Education Report given to CRISTY SOLIS. Addendum: 07/03/20 at 0730 by Catalina Ferraro RN U/S OF BREAST FOR TODAY
[2020-07-03 07:11] LABS: % IRON SATURATION 10 % (15-50)
--- NOTE | 2020-07-03 07:34 | NUR ---
NURSE NOTES: Received report from Catalina MUNIZ.
[2020-07-03 08:00] VITALS: BP 100/73
--- NOTE | 2020-07-03 08:29 | NUR ---
NURSE NOTES: Pt. in bed, sleeping but response to tactile stimuli. No sign of distress. Pt. on vent with setting SIMV12/VT450/Fi O2 at 30%/PEEP5. No grimacing noted. HOB elevated at all times. On GTF Jevity 1.2 at 65cc/hr. Tolerating well. No n/v noted. F/C in placed patent/intact draining yellow colored urine. IV site at right hand #20g. in placed S.L. Bed in low position, locked. Call light within reach. Will cont. to monitor.
[2020-07-03] MEDS ORDERED: Phospha 250 Neutral tab GT SCH (09:15)
[2020-07-03] MEDS: Cefepime HCl 1 GM in D5W 55 ML IVPB SCH ×2 (09:29→20:52)
[2020-07-03] MEDS: Zinc Sulfate 220mg GT SCH (09:29)
[2020-07-03] MEDS: Multivitamins W/Minerals 15 ML UDC GT SCH (09:30)
[2020-07-03] MEDS: Amiodarone 200mg tab GT SCH (09:30)
[2020-07-03] MEDS: Ascorbic Acid 500mg tab GT SCH ×2 (09:30→18:00)
[2020-07-03] MEDS: Heparin 5000 units/ml inj SUBQ SCH ×2 (09:31→20:08)
--- NOTE | 2020-07-03 11:00 | Consultation ---
DATE OF CONSULTATION: 07/03/2020 CONSULTING PHYSICIAN: Gilbert Hooks MD. CHIEF COMPLAINT: Dysphagia. HISTORY OF PRESENT ILLNESS: Most of the history per chart. A 74-year-old assisted patient with chronic G-tube placement for feeding, who was transferred to the hospital with fever. The patient is unable to provide any history. Most of the history per chart. GI consult requested for management of G-tube. PAST MEDICAL HISTORY: 1. Respiratory failure, on chronic vent. 2. Dysphagia with G-tube. 3. COPD. 4. Atrial fibrillation. 5. Schizophrenia. 6. Parkinson disease. 7. Diabetes. 8. Quadriplegia. 9. Gastritis. ALLERGIES: No known allergies. PAST SURGICAL HISTORY: Tracheostomy. FAMILY HISTORY: Noncontributory. REVIEW OF SYSTEMS: Unable to obtain. SOCIAL HISTORY: Currently lives in a assisted. No history of tobacco, alcohol, or drug abuse. PHYSICAL EXAMINATION: VITAL SIGNS: Temperature 98.1, pulse , respirations 12, blood pressure 109/66. HEENT: Normocephalic and atraumatic. Mild pale conjunctivae. NECK: Supple. No evidence of obvious lymphadenopathy. CARDIOVASCULAR: Irregularly irregular. Plus S1, S2. LUNGS: Clear to auscultation bilaterally and diffusely on the supine exam. ABDOMEN: Soft, nontender. G-tube in place. No rebound. No guarding. No peritoneal sign. EXTREMITIES: No cyanosis. No clubbing. No edema. LABORATORY DATA: White count is 8.4, hemoglobin 7.9, hematocrit 25, and platelet count 152,000. Chemistry, sodium 150, potassium 4.1, BUN 50, creatinine 0.7. Glucose is 159. Iron saturation is 10%. ASSESSMENT: This is a 74-year-old female with numerous medical problems, admitted to the hospital mainly for fever. In terms of GI standpoint, the patient has anemia with iron deficient anemia. Also, the patient has dysphagia with a G-tube. PLAN: We are going to start the patient on Venofer for IV supplement. We are going to send the stool for occult blood to rule out GI bleeding given the elevated BUN and creatinine ratio. Meanwhile, we are going to place her on Protonix for GI prophylaxis. The patient is currently getting tube feeding. We will monitor for residuals. Gilbert Vicky Hooks DR: URBAN JOB#: [id number] CC:
--- NOTE | 2020-07-03 11:53 | Nephrology Progress Note ---
Assessment/Plan Problem List: (1) Hypernatremia (2) Dehydration (3) Chronic respiratory failure (4) Tracheostomy dependence (5) Hypothyroidism (6) Hypoalbuminemia Assessment Hypernatremia, dehydration, Azotemia, dehydration, Pneumonia, sepsis, pyelonephritis Chronic trach and vent PEG Anemia Parkinson's Diabetes mellitus History of atrial fibrillation Plan D5W 50 cc an hour Change Synthroid to IV Continue same medication Recheck labs iron panel thyroid panel , results noted 2D echocardiogram to evaluate LV function, results pending Albumin bolus Continue per consultants Urine studies Subjective ROS Limited/Unobtainable: Yes Objective Objective Last 24 Hour Vital Signs Date Time Temp Pulse Resp B/P (MAP) Pulse Ox O2 Delivery O2 Flow Rate FiO2 07/03/20 08:00 Mechanical Ventilator 07/03/20 08:00 30 07/03/20 08:00 97.9 56 18 100/73 (82) 100 07/03/20 07:55 51 07/03/20 07:21 52 12 30 07/03/20 04:00 58 07/03/20 04:00 30 07/03/20 04:00 98.1 59 20 109/56 (73) 100 07/03/20 04:00 Mechanical Ventilator 07/03/20 03:24 55 19 30 07/03/20 00:00 99.5 55 20 105/50 (68) 100 07/03/20 00:00 54 07/03/20 00:00 Mechanical Ventilator 07/03/20 00:00 30 07/02/20 23:15 51 16 30 07/02/20 20:00 Mechanical Ventilator 07/02/20 20:00 97.7 54 22 110/60 (77) 100 07/02/20 20:00 30 07/02/20 20:00 56 07/02/20 19:32 59 21 30 07/02/20 16:00 99.3 60 20 108/59 (75) 100 07/02/20 16:00 57 07/02/20 16:00 100 07/02/20 16:00 Mechanical Ventilator 07/02/20 15:20 48 12 30 07/02/20 12:00 100 07/02/20 12:00 97.5 63 18 108/60 (76) 100 07/02/20 12:00 56 Intake and Output 07/02/20 07/03/20 19:00 07:00 Intake Total 2185 ml 915 ml Output Total 1450 ml 425 ml Balance 735 ml 490 ml Intake Free Water 200 ml IV Total 2055 ml Tube Feeding 130 ml 715 ml Output Urine Total 1450 ml 425 ml # Bowel Movements 7 2 Laboratory Tests 07/02/20 12:57: POC Whole Blood Glucose 96 07/02/20 13:49: Arterial Blood pH 7.460H, Arterial Blood Partial Pressure CO2 39.7, Arterial Blood Partial Pressure O2 147.9H, Arterial Blood HCO3 27.6H, Arterial Blood Oxygen Saturation 98.6, Arterial Blood Base Excess 3.5H, Lencho Test Positive 07/02/20 18:09: POC Whole Blood Glucose 113H 07/02/20 23:26: POC Whole Blood Glucose 150H 07/03/20 04:30: White Blood Count 8.4, Red Blood Count 2.70L, Hemoglobin 7.9L, Hematocrit 25.2L, Mean Corpuscular Volume 93, Mean Corpuscular Hemoglobin 29.2, Mean Corpuscular Hemoglobin Concent 31.3L, Red Cell Distribution Width 14.7, Platelet Count 152, Mean Platelet Volume 9.5, Neutrophils (%) (Auto) , Lymphocytes (%) (Auto) , Monocytes (%) (Auto) , Eosinophils (%) (Auto) , Basophils (%) (Auto) , Neutrophils % (Manual) [Pending], Lymphocytes % (Manual) [Pending], Platelet Estimate [Pending], Platelet Morphology [Pending], Sodium Level 150H, Potassium Level 4.1, Chloride Level 118H, Carbon Dioxide Level 26, Anion Gap 6, Blood Urea Nitrogen 50H, Creatinine 0.7, Estimat Glomerular Filtration Rate > 60, Glucose Level 159H, Hemoglobin A1c 5.7, Uric Acid 4.3, Calcium Level 9.4, Phosphorus Level 2.2L, Magnesium Level 2.3, Iron Level 18L, Total Iron Binding Capacity 172L, Percent Iron Saturation 10L, Unsaturated Iron Binding 154, Ferritin 386, Total Bilirubin 0.2, Gamma Glutamyl Transpeptidase 15, Aspartate Amino Transf (AST/SGOT) 20, Alanine Aminotransferase (ALT/SGPT) 25, Alkaline Phosphatase 114, Troponin I 0.015, C-Reactive Protein, Quantitative 11.7H, Pro-B-Type Natriuretic Peptide 1440H, Total Protein 7.2, Albumin 2.1L, Globulin 5.1, Albumin/Globulin Ratio 0.4L, Triglycerides Level 59, Cholesterol Level 129, LDL Cholesterol 79, HDL Cholesterol 37L, Cholesterol/HDL Ratio 3.5, Vitamin B12 Level 963, Folate 20.0, Thyroid Stimulating Hormone (TSH) 18.738H 07/03/20 06:05: POC Whole Blood Glucose 107H Height (Feet): 5 Height (Inches): 4.00 Weight (Pounds): 145 General Appearance: no apparent distress EENT: other - Trach to vent Cardiovascular: tachycardia Respiratory/Chest: decreased breath sounds Abdomen: distended Dante Chau MD Jul 03, 2020 11:53
[2020-07-03 12:00] VITALS: BP 121/66
--- NOTE | 2020-07-03 14:00 | NUR ---
NURSE NOTES: Seen by Dr. Kellen Nicole with [facility].
[2020-07-03 16:00] VITALS: BP 116/58
--- NOTE | 2020-07-03 16:01 | Consultation ---
History of Present Illness General Date patient seen: Jul 03, 2020 Chief Complaint: Fever Present Illness HPI This is a 74-year-old female multi-medical comorbidities including respiratory insufficiency status post trach on support PEG COPD A. fib schizophrenia Parkinson's anxiety quadriplegia diabetes history of gastritis who was in her care facility identified to have fevers. Patient limited in history and following commands and participating examination. Surgery called to eval and assist with care. Patient seen, patient evaluated, chart reviewed Allergies: Coded Allergies: No Known Allergies (Unverified , 11/22/15) Medication History Scheduled Amino Acids/Protein Hydrolys (Proteinex-18 Liquid), 30 ML GT TID, (Reported) Amiodarone Hcl* (Cordarone*), 200 MG GT EVERY 12 HOURS, (Reported) Ascorbic Acid (Ascorbic Acid), 5 ML GT BID, (Reported) Carbidopa/Levodopa 25-100 Mg* (Sinemet 25-100 Mg Tablet*), 1 TAB GT Q6HR, (Reported) Cholecalciferol (Vitamin D3) (Vitamin D3), 50 MCG GT DAILY, (Reported) Docusate Sodium* (Docusate Sodium*), 100 MG GT Q12HR, (Reported) Famotidine* (Pepcid 20mg tablet*), 20 MG GT DAILY, (Reported) Furosemide* (Lasix*), 20 MG GT DAILY, (Reported) Levothyroxine Sodium* (Synthroid*), 100 MCG GT DAILY, (Reported) Memantine Hcl* (Namenda*), 5 MG GT TWICE A DAY, (Reported) Multivits W-Min/Ferrous Gluc (Multivitamin-Mineral Liquid), 9 MG GT DAILY, (Reported) Zinc Sulfate (Zinc Sulfate*), 220 MG GT DAILY, (Reported) Scheduled PRN Acetaminophen* (Acetaminophen 325MG Tablet*), 650 MG GT Q6HR PRN for For Pain, (Reported) Hydralazine Hcl* (Hydralazine Hcl*), 10 MG GT EVERY 6 HOURS PRN for For High Blood Pressure, (Reported) Hydrocodone Bit/Acetaminophen 5-325* ([place] 5-325 Tablet*), 1 TAB ORAL DAILY PRN for For Pain, (Reported) Miscellaneous Medications Arginine/Glutamine/Calcium Hmb (Kevin Packet), 1 EACH GT, (Reported) Lactobacillus Acidophilus (Acidophilus), 1 EACH GT, (Reported) Discontinued Medications Amantadine Hcl* (Amantadine*), 100 MG ORAL TWICE A DAY, (Reported) Discontinued Reason: Pt stopped taking med Amiodarone Hcl* (Amiodarone Hcl*), 400 MG GT EVERY 12 HOURS, (Reported) Discontinued Reason: Prescription changed Ascorbic Acid* (Ascorbic Acid*), 500 MG GT TWICE A DAY, (Reported) Discontinued Reason: Prescription changed Bisacodyl (Dulcolax), 10 MG RC HS PRN for Constipation, (Reported) Discontinued Reason: Pt stopped taking med Cefepime Hcl/D5w (Cefepime-Dextrose 2 Gm/50 Ml), 2 GM IVPB Q24H, (Reported) Discontinued Reason: Pt stopped taking med Cefepime Hcl/D5w (Cefepime-Dextrose 2 Gm/50 Ml), 2 GM IVPB Q24H, (Reported) Discontinued Reason: Pt stopped taking med Cholecalciferol (Vitamin D3) (Vitamin D3*), 25 MCG GT DAILY, (Reported) Discontinued Reason: Prescription changed Clonidine Hcl* (Catapres*), 0.1 MG ORAL EVERY 6 HOURS, (Reported) Discontinued Reason: Pt stopped taking med Guaifenesin/Codeine Phos* (Robitussin Ac*), 30 ML ORAL Q6H PRN for For Cough, (Reported) Discontinued Reason: Pt stopped taking med Heparin Sodium,Porcine (Heparin Sodium), 5,000 UNITS SQ Q12HR, (Reported) Discontinued Reason: Pt stopped taking med Lisinopril* (Lisinopril*), 10 MG ORAL DAILY, (Reported) Discontinued Reason: Pt stopped taking med Mag Hydrox/Al Hydrox/Simeth (Maalox Maximum Strength Susp), 30 ML PO, (Reported) Discontinued Reason: Pt stopped taking med Metoprolol Succinate* (Metoprolol Succinate*), 25 MG ORAL BID, (Reported) Discontinued Reason: Pt stopped taking med Metoprolol Tartrate* (Metoprolol Tartrate*), 25 MG ORAL Q12HR, (Reported) Discontinued Reason: Pt stopped taking med Multivitamin with Minerals (Multivitamins with Minerals), 1 TAB ORAL DAILY, (Reported) Discontinued Reason: Prescription changed Nifedipine Xl* (Procardia Xl*), 90 MG ORAL DAILY, (Reported) Discontinued Reason: MD discontinued med Ondansetron (Zofran), 4 MG ORAL Q6H PRN for Nausea & Vomiting, (Reported) Discontinued Reason: Pt stopped taking med Pantoprazole* (Protonix*), 40 MG ORAL DAILY, (Reported) Discontinued Reason: Pt stopped taking med Pramipexole (Mirapex), 0.25 MG ORAL THREE TIMES A DAY, (Reported) Discontinued Reason: Pt stopped taking med Prazosin Hcl* (Minipress*), 1 MG PO TID, (Reported) Discontinued Reason: Pt stopped taking med Zolpidem Tartrate* (Ambien*), 5 MG ORAL BEDTIME PRN for Insomnia, (Reported) Discontinued Reason: Pt stopped taking med Patient History Limited by: medical condition History Provided By: Medical Record, PMD Healthcare decision maker Resuscitation status Advanced Directive on File Past Medical/Surgical History Past Medical/Surgical History: (1) Sacral decubitus ulcer (2) Dehydration (3) Hypernatremia (4) Pneumonia (5) Protein calorie malnutrition (6) Failure to thrive (child) (7) Tracheostomy dependence (8) Pyelonephritis (9) Chronic respiratory failure (10) Hypothyroidism (11) Sepsis (12) UTI (urinary tract infection) (13) Anemia (14) Dysphagia (15) Hypoalbuminemia (16) Iron deficiency (17) At high risk for aspiration (18) Parkinson disease (19) Dementia (20) Elevated CEA (21) Paroxysmal A-fib (22) Pancytopenia Review of Systems All Other Systems: negative except mentioned in HPI ROS Narrative limited given condition Physical Exam General Appearance: no apparent distress, alert Lines, tubes and drains: peripheral, other HEENT: normocephalic, atraumatic, anicteric, mucous membranes moist Neck: non-tender, trach Respiratory/Chest: no respiratory distress, no accessory muscle use, decreased breath sounds, on vent Cardiovascular/Chest: normal rate, regular rhythm Abdomen: soft, no organomegaly, no mass, feeding tube Genitourinary/Rectal: normal rectal exam Extremities: non-tender, normal inspection, other Skin Exam: warm/dry, other Neurologic: alert Last 24 Hour Vital Signs Date Time Temp Pulse Resp B/P (MAP) Pulse Ox O2 Delivery O2 Flow Rate FiO2 07/03/20 15:19 61 19 30 07/03/20 12:00 Mechanical Ventilator 07/03/20 12:00 30 07/03/20 12:00 97.9 75 18 121/66 (84) 97 07/03/20 11:20 69 18 30 07/03/20 08:00 Mechanical Ventilator 07/03/20 08:00 30 07/03/20 08:00 97.9 56 18 100/73 (82) 100 07/03/20 07:55 51 07/03/20 07:21 52 12 30 07/03/20 04:00 58 07/03/20 04:00 30 07/03/20 04:00 98.1 59 20 109/56 (73) 100 07/03/20 04:00 Mechanical Ventilator 07/03/20 03:24 55 19 30 07/03/20 00:00 99.5 55 20 105/50 (68) 100 07/03/20 00:00 54 07/03/20 00:00 Mechanical Ventilator 07/03/20 00:00 30 07/02/20 23:15 51 16 30 07/02/20 20:00 Mechanical Ventilator 07/02/20 20:00 97.7 54 22 110/60 (77) 100 07/02/20 20:00 30 07/02/20 20:00 56 07/02/20 19:32 59 21 30 07/02/20 16:00 99.3 60 20 108/59 (75) 100 07/02/20 16:00 57 07/02/20 16:00 100 07/02/20 16:00 Mechanical Ventilator Intake and Output 07/02/20 07/03/20 19:00 07:00 Intake Total 2185 ml 915 ml Output Total 1450 ml 425 ml Balance 735 ml 490 ml Intake Free Water 200 ml IV Total 2055 ml Tube Feeding 130 ml 715 ml Output Urine Total 1450 ml 425 ml # Bowel Movements 7 2 Laboratory Tests Test 07/02/20 18:09 07/02/20 23:26 07/03/20 04:30 07/03/20 06:05 POC Whole Blood Glucose 113 MG/DL (74-106) H 150 MG/DL (74-106) H 107 MG/DL (74-106) H White Blood Count 8.4 K/UL (4.8-10.8) Red Blood Count 2.70 M/UL (4.20-5.40) L Hemoglobin 7.9 G/DL (12.0-16.0) L Hematocrit 25.2 % (37.0-47.0) L Mean Corpuscular Volume 93 FL (80-99) Mean Corpuscular Hemoglobin 29.2 PG (27.0-31.0) Mean Corpuscular Hemoglobin Concent 31.3 G/DL (32.0-36.0) L Red Cell Distribution Width 14.7 % (11.6-14.8) Platelet Count 152 K/UL (150-450) Mean Platelet Volume 9.5 FL (6.5-10.1) Neutrophils (%) (Auto) % (45.0-75.0) Lymphocytes (%) (Auto) % (20.0-45.0) Monocytes (%) (Auto) % (1.0-10.0) Eosinophils (%) (Auto) % (0.0-3.0) Basophils (%) (Auto) % (0.0-2.0) Differential Total Cells Counted 100 Neutrophils % (Manual) 74 % (45-75) Lymphocytes % (Manual) 13 % (20-45) L Monocytes % (Manual) 12 % (1-10) H Eosinophils % (Manual) 1 % (0-3) Basophils % (Manual) 0 % (0-2) Band Neutrophils 0 % (0-8) Platelet Estimate Adequate Platelet Morphology Normal Hypochromasia 3+ Sodium Level 150 MMOL/L (136-145) H Potassium Level 4.1 MMOL/L (3.5-5.1) Chloride Level 118 MMOL/L (98-107) H Carbon Dioxide Level 26 MMOL/L (21-32) Anion Gap 6 mmol/L (5-15) Blood Urea Nitrogen 50 mg/dL (7-18) H Creatinine 0.7 MG/DL (0.55-1.30) Estimat Glomerular Filtration Rate > 60 mL/min (>60) Glucose Level 159 MG/DL (74-106) H Hemoglobin A1c 5.7 % (4.3-6.0) Uric Acid 4.3 MG/DL (2.6-7.2) Calcium Level 9.4 MG/DL (8.5-10.1) Phosphorus Level 2.2 MG/DL (2.5-4.9) L Magnesium Level 2.3 MG/DL (1.8-2.4) Iron Level 18 ug/dL (50-175) L Total Iron Binding Capacity 172 ug/dL (250-450) L Percent Iron Saturation 10 % (15-50) L Unsaturated Iron Binding 154 ug/dL (112-346) Ferritin 386 NG/ML (8-388) Total Bilirubin 0.2 MG/DL (0.2-1.0) Gamma Glutamyl Transpeptidase 15 U/L (5-85) Aspartate Amino Transf (AST/SGOT) 20 U/L (15-37) Alanine Aminotransferase (ALT/SGPT) 25 U/L (12-78) Alkaline Phosphatase 114 U/L (46-116) Troponin I 0.015 ng/mL (0.000-0.056) C-Reactive Protein, Quantitative 11.7 mg/dL (0.00-0.90) H Pro-B-Type Natriuretic Peptide 1440 pg/mL (0-125) H Total Protein 7.2 G/DL (6.4-8.2) Albumin 2.1 G/DL (3.4-5.0) L Globulin 5.1 g/dL Albumin/Globulin Ratio 0.4 (1.0-2.7) L Triglycerides Level 59 MG/DL (30-150) Cholesterol Level 129 MG/DL (< 200) LDL Cholesterol 79 mg/dL (<100) HDL Cholesterol 37 MG/DL (40-60) L Cholesterol/HDL Ratio 3.5 (3.3-4.4) Vitamin B12 Level 963 PG/ML (193-986) Folate 20.0 NG/ML (8.6-58.9) Thyroid Stimulating Hormone (TSH) 18.738 uiU/mL (0.358-3.740) Height (Feet): 5 Height (Inches): 4.00 Weight (Pounds): 145 Medications Current Medications Medications (Trade) Dose Ordered Sig/Alex Route PRN Reason Start Time Stop Time Status Last Admin Dose Admin Acetaminophen (Tylenol) 650 mg Q6H PRN GT FOR TEMP > 100.4 07/02/20 09:45 08/01/20 09:44 Acetaminophen (Tylenol) 650 mg Q6H PRN GT Mild Pain (Pain Scale 1-3) 07/02/20 10:00 08/01/20 09:59 Acetaminophen/ Hydrocodone Bitart ([place] 5/325) 1 tab Q6H PRN GT Severe Pain (Pain Scale 7-10) 07/02/20 09:45 07/09/20 09:44 Amiodarone HCl (Cordarone) 200 mg DAILY GT 07/02/20 19:15 09/30/20 19:14 07/03/20 09:30 Ascorbic Acid (Vitamin C) 500 mg TWICE A DAY GT 07/02/20 18:00 08/01/20 17:59 07/03/20 09:30 Cefepime HCl 1 gm/ Dextrose 55 ml @ 110 mls/hr EVERY 12 HOURS IVPB 07/02/20 09:00 07/09/20 08:59 07/03/20 09:29 Dextrose 1,000 ml @ 50 mls/hr Q20H IV 07/03/20 09:30 08/02/20 09:29 07/03/20 09:35 Dextrose (Dextrose 50%) 25 ml Q30M PRN IV Hypoglycemia 07/02/20 09:45 09/30/20 09:44 Dextrose (Dextrose 50%) 50 ml Q30M PRN IV Hypoglycemia 07/02/20 09:45 09/30/20 09:44 Famotidine (Pepcid) 20 mg DAILY GT 07/03/20 09:00 10/01/20 08:59 07/03/20 09:30 Heparin Sodium (Porcine) (Heparin 5000 units/ml) 5,000 units EVERY 12 HOURS SUBQ 07/02/20 21:00 08/16/20 20:59 07/03/20 09:31 Insulin Aspart (NovoLOG) Q6HR SUBQ 07/02/20 12:00 09/30/20 11:59 07/02/20 23:31 Iron Sucrose 100 mg/Sodium Chloride 60 ml @ 240 mls/hr BEDTIME IV 07/03/20 21:00 07/07/20 21:14 Lansoprazole (Prevacid) 30 mg DAILY GT 07/04/20 09:00 08/03/20 08:59 Levothyroxine Sodium (Synthroid) 50 mcg DAILY IV 07/04/20 09:00 08/03/20 08:59 Multivitamins (Multivitamins W/ Minerals 15ml Liquid) 15 ml DAILY GT 07/03/20 09:00 08/02/20 08:59 07/03/20 09:30 Ondansetron HCl (Zofran) 4 mg Q6H PRN IVP Nausea & Vomiting 07/02/20 09:45 08/01/20 09:44 Vancomycin HCl (Vanco pharmacy to dose) 1 ea DAILY PRN MISC Per rx protocol 07/02/20 08:30 08/01/20 08:29 Vancomycin HCl 1 gm/Dextrose 275 ml @ 183.708 mls/hr Q24H IVPB 07/02/20 22:00 07/07/20 21:59 07/02/20 22:20 Zinc Sulfate (Zinc Sulfate) 220 mg DAILY GT 07/03/20 09:00 10/01/20 08:59 07/03/20 09:29 Assessment/Plan Problem List: (1) Dehydration ICD Codes: E86.0 - Dehydration SNOMED: 74140042 (2) Hypernatremia ICD Codes: E87.0 - Hyperosmolality and hypernatremia SNOMED: 426543936 (3) Pneumonia ICD Codes: J18.9 - Pneumonia, unspecified organism SNOMED: 970475523 (4) Protein calorie malnutrition Assessment & Plan: bmi 25 alb 2.1 wounds with granulation tissue cont tf as tolerated ICD Codes: E46 - Unspecified protein-calorie malnutrition SNOMED: 174281712 (5) Failure to thrive (child) ICD Codes: R62.51 - Failure to thrive (child) SNOMED: 982448054 (6) Tracheostomy dependence Assessment & Plan: trach stable dressings changed no acute intervention ICD Codes: Z93.0 - Tracheostomy status SNOMED: 131339277 (7) Chronic respiratory failure ICD Codes: J96.10 - Chronic respiratory failure, unspecified whether with hypoxia or hypercapnia SNOMED: 33749700 (8) Hypothyroidism ICD Codes: E03.9 - Hypothyroidism, unspecified SNOMED: 01264372 (9) Pyelonephritis ICD Codes: N12 - Tubulo-interstitial nephritis, not specified as acute or chronic SNOMED: 84960345 (10) Sacral decubitus ulcer Assessment & Plan: Pt presented on admission with full thickness Stage 4 sacral pressure injury. Base of wound has tissue viable. (L)3cm x (W)3.5cm x 3cm deep. Scattered areas of maceration along borders. Mixed pink epithelial and hyperpigmentation periwound. Additionally two small wounds noted to R and L buttocks within area of hyperpigmentation. R and L heels are both soft but easily blanchable.No other skin concerns noted. left ear with abrasion Tx.Plan: Cleanse sacral wound with Saline. Apply Therahoney gauze packing. Apply Moisture Barrier paste periwound. Cover with Optifoam drsg. Change every 1 days and prn. Apply Cavilon Skin Barrier to both heels. Cover each heel with Optifoam drsg. Change every 7 days and prn. Apply therahoney to left ear and cover with foam dressings. change q3 days APM/YOLY Mattress overlay. Reposition at least every 2hours or as tolerated. Off-load heels with pillow. ICD Codes: L89.159 - Pressure ulcer of sacral region, unspecified stage SNOMED: 839970046 (11) Sepsis ICD Codes: A41.9 - Sepsis, unspecified organism SNOMED: 60498257 (12) UTI (urinary tract infection) ICD Codes: N39.0 - Urinary tract infection, site not specified SNOMED: 30369630 (13) Anemia ICD Codes: D64.9 - Anemia, unspecified SNOMED: 900089967 (14) Dysphagia ICD Codes: R13.10 - Dysphagia, unspecified SNOMED: 14529043, 530469584 (15) Hypoalbuminemia ICD Codes: E88.09 - Other disorders of plasma-protein metabolism, not elsewhere classified SNOMED: 072998425 (16) Iron deficiency ICD Codes: E61.1 - Iron deficiency SNOMED: 68595898 (17) At high risk for aspiration ICD Codes: Z91.89 - Other specified personal risk factors, not elsewhere classified SNOMED: 381854032 (18) Parkinson disease ICD Codes: G20 - Parkinson's disease SNOMED: 82223062 (19) Dementia ICD Codes: F03.90 - Unspecified dementia without behavioral disturbance SNOMED: 37359669 (20) Elevated CEA ICD Codes: R97.0 - Elevated carcinoembryonic antigen [CEA] SNOMED: 54247451, 445748613 (21) Paroxysmal A-fib ICD Codes: I48.0 - Paroxysmal atrial fibrillation SNOMED: 611300524 (22) Pancytopenia ICD Codes: D61.818 - Other pancytopenia SNOMED: 179062840 Holland Petty Jul 03, 2020 16:01
--- NOTE | 2020-07-03 16:15 | Consultation ---
DATE OF CONSULTATION: 07/03/2020 INFECTIOUS DISEASE CONSULTATION CONSULTING PHYSICIAN: Mahesh Nicole MD. PRIMARY ATTENDING: Tony Dupree DO. REASON FOR CONSULTATION: Sepsis, pneumonia. HISTORY OF PRESENT ILLNESS: This is a 74-year-old female admitted on 07/01/2020 from longterm residence because of fever. Had a temperature of 101.3 in hospital. Had leukocytosis of 14.1 at time of admission. Had hypernatremia and dehydration. PAST MEDICAL HISTORY: Chronic respiratory failure on ventilator, COPD, Parkinson disease, quadriplegia, diabetes mellitus, atrial fibrillation, hypertension, iron deficiency anemia, hypothyroidism, gastritis, history of tracheostomy and G-tube placement. ALLERGIES: No known drug allergies. MEDICATIONS: Prevacid, levothyroxine, IV iron, multivitamin, zinc, famotidine, vancomycin, heparin, insulin, Zofran, Tylenol, cefepime, [place]. SOCIAL HISTORY: Single. [facility] resident. No other history can be obtained by the patient. PHYSICAL EXAMINATION: VITAL SIGNS: Temperature 97.9, pulse 75, blood pressure 121/66. GENERAL APPEARANCE: Seems to have normal weight. HEAD AND NECK: Status post tracheostomy. Has facial asymmetry and deviation of tongue to the left side. HEART: Normal rate. LUNGS: Clear on ventilator. ABDOMEN: Soft. G-tube feeding. EXTREMITIES: No edema. Had contracture. SKIN: Has pressure ulcer. NEUROLOGIC: Opens eyes. LABORATORY AND DIAGNOSTIC DATA: Sodium 150, potassium 4.1, chloride 118, bicarb 26, BUN 50, creatinine 0.7, glucose 159. BNP is 1440. WBC today is 8.4, hemoglobin 7.9, hematocrit 25.2, platelets 152. UA is showing wbc's of 40 to 60, rbc's of 40 to 60, leukocyte esterase 3+, blood 4+. Chest x-ray showed bilateral patchy airspace diseases, multifocal pneumonia, or UTI. COVID test was negative. IMPRESSION: Sepsis with fever and leukocytosis. Has bilateral infiltrates. May have pneumonia. Has pyuria, UTI. Has anemia, chronic respiratory failure, COPD, diabetes mellitus, hypertension, hypothyroidism, pressure ulcer, hypernatremia, and dehydration. RECOMMENDATION: We will continue with cefepime and vancomycin. We will follow up the cultures. At the end of my exam, I thank Dr. Tony Dupree and Dr. Oneil for involving me in the care of this patient. Mahesh Nicole M.D. DR: ANNI JOB#: [id number] CC: OSCAR
--- NOTE | 2020-07-03 16:35 | Pulmonology Progress Note ---
Subjective ROS Limited/Unobtainable: Yes Allergies: Coded Allergies: No Known Allergies (Unverified , 11/22/15) Objective Last 24 Hour Vital Signs Date Time Temp Pulse Resp B/P (MAP) Pulse Ox O2 Delivery O2 Flow Rate FiO2 07/03/20 15:19 61 19 30 07/03/20 12:00 Mechanical Ventilator 07/03/20 12:00 30 07/03/20 12:00 97.9 75 18 121/66 (84) 97 07/03/20 11:35 48 07/03/20 11:20 69 18 30 07/03/20 08:00 Mechanical Ventilator 07/03/20 08:00 30 07/03/20 08:00 97.9 56 18 100/73 (82) 100 07/03/20 07:55 51 07/03/20 07:21 52 12 30 07/03/20 04:00 58 07/03/20 04:00 30 07/03/20 04:00 98.1 59 20 109/56 (73) 100 07/03/20 04:00 Mechanical Ventilator 07/03/20 03:24 55 19 30 07/03/20 00:00 99.5 55 20 105/50 (68) 100 07/03/20 00:00 54 07/03/20 00:00 Mechanical Ventilator 07/03/20 00:00 30 07/02/20 23:15 51 16 30 07/02/20 20:00 Mechanical Ventilator 07/02/20 20:00 97.7 54 22 110/60 (77) 100 07/02/20 20:00 30 07/02/20 20:00 56 07/02/20 19:32 59 21 30 Intake and Output 07/02/20 07/03/20 19:00 07:00 Intake Total 2185 ml 915 ml Output Total 1450 ml 425 ml Balance 735 ml 490 ml Intake Free Water 200 ml IV Total 2055 ml Tube Feeding 130 ml 715 ml Output Urine Total 1450 ml 425 ml # Bowel Movements 7 2 Microbiology Date/Time Source Procedure Growth Status 07/01/20 23:30 Nasopharynx SARS-CoV-2 RdRp Gene Assay - Final Complete Laboratory Tests 07/02/20 18:09: POC Whole Blood Glucose 113H 07/02/20 23:26: POC Whole Blood Glucose 150H 07/03/20 04:30: White Blood Count 8.4, Red Blood Count 2.70L, Hemoglobin 7.9L, Hematocrit 25.2L, Mean Corpuscular Volume 93, Mean Corpuscular Hemoglobin 29.2, Mean Corpuscular Hemoglobin Concent 31.3L, Red Cell Distribution Width 14.7, Platelet Count 152, Mean Platelet Volume 9.5, Neutrophils (%) (Auto) , Lymphocytes (%) (Auto) , Monocytes (%) (Auto) , Eosinophils (%) (Auto) , Basophils (%) (Auto) , Differential Total Cells Counted 100, Neutrophils % (Manual) 74, Lymphocytes % (Manual) 13L, Monocytes % (Manual) 12H, Eosinophils % (Manual) 1, Basophils % (Manual) 0, Band Neutrophils 0, Platelet Estimate Adequate, Platelet Morphology Normal, Hypochromasia 3+, Sodium Level 150H, Potassium Level 4.1, Chloride Level 118H, Carbon Dioxide Level 26, Anion Gap 6, Blood Urea Nitrogen 50H, Creatinine 0.7, Estimat Glomerular Filtration Rate > 60, Glucose Level 159H, Hemoglobin A1c 5.7, Uric Acid 4.3, Calcium Level 9.4, Phosphorus Level 2.2L, Magnesium Level 2.3, Iron Level 18L, Total Iron Binding Capacity 172L, Percent Iron Saturation 10L, Unsaturated Iron Binding 154, Ferritin 386, Total Bilirubin 0.2, Gamma Glutamyl Transpeptidase 15, Aspartate Amino Transf (AST/SGOT) 20, Alanine Aminotransferase (ALT/SGPT) 25, Alkaline Phosphatase 114, Troponin I 0.015, C- Reactive Protein, Quantitative 11.7H, Pro-B-Type Natriuretic Peptide 1440H, Total Protein 7.2, Albumin 2.1L, Globulin 5.1, Albumin/Globulin Ratio 0.4L, Triglycerides Level 59, Cholesterol Level 129, LDL Cholesterol 79, HDL Cholesterol 37L, Cholesterol/HDL Ratio 3.5, Vitamin B12 Level 963, Folate 20.0, Thyroid Stimulating Hormone (TSH) 18.738H 07/03/20 06:05: POC Whole Blood Glucose 107H Current Medications Medications (Trade) Dose Ordered Sig/Alex Route PRN Reason Start Time Stop Time Status Last Admin Dose Admin Acetaminophen (Tylenol) 650 mg Q6H PRN GT FOR TEMP > 100.4 07/02/20 09:45 08/01/20 09:44 Acetaminophen (Tylenol) 650 mg Q6H PRN GT Mild Pain (Pain Scale 1-3) 07/02/20 10:00 08/01/20 09:59 Acetaminophen/ Hydrocodone Bitart ([place] 5/325) 1 tab Q6H PRN GT Severe Pain (Pain Scale 7-10) 07/02/20 09:45 07/09/20 09:44 Amiodarone HCl (Cordarone) 200 mg DAILY GT 07/02/20 19:15 09/30/20 19:14 07/03/20 09:30 Ascorbic Acid (Vitamin C) 500 mg TWICE A DAY GT 07/02/20 18:00 08/01/20 17:59 07/03/20 09:30 Cefepime HCl 1 gm/ Dextrose 55 ml @ 110 mls/hr EVERY 12 HOURS IVPB 07/02/20 09:00 07/09/20 08:59 07/03/20 09:29 Dextrose 1,000 ml @ 50 mls/hr Q20H IV 07/03/20 09:30 08/02/20 09:29 07/03/20 09:35 Dextrose (Dextrose 50%) 25 ml Q30M PRN IV Hypoglycemia 07/02/20 09:45 09/30/20 09:44 Dextrose (Dextrose 50%) 50 ml Q30M PRN IV Hypoglycemia 07/02/20 09:45 09/30/20 09:44 Famotidine (Pepcid) 20 mg DAILY GT 07/03/20 09:00 10/01/20 08:59 07/03/20 09:30 Heparin Sodium (Porcine) (Heparin 5000 units/ml) 5,000 units EVERY 12 HOURS SUBQ 07/02/20 21:00 08/16/20 20:59 07/03/20 09:31 Insulin Aspart (NovoLOG) Q6HR SUBQ 07/02/20 12:00 09/30/20 11:59 07/02/20 23:31 Iron Sucrose 100 mg/Sodium Chloride 60 ml @ 240 mls/hr BEDTIME IV 07/03/20 21:00 07/07/20 21:14 Lansoprazole (Prevacid) 30 mg DAILY GT 07/04/20 09:00 08/03/20 08:59 Levothyroxine Sodium (Synthroid) 50 mcg DAILY IV 07/04/20 09:00 08/03/20 08:59 Multivitamins (Multivitamins W/ Minerals 15ml Liquid) 15 ml DAILY GT 07/03/20 09:00 08/02/20 08:59 07/03/20 09:30 Ondansetron HCl (Zofran) 4 mg Q6H PRN IVP Nausea & Vomiting 07/02/20 09:45 08/01/20 09:44 Vancomycin HCl (Vanco pharmacy to dose) 1 ea DAILY PRN MISC Per rx protocol 07/02/20 08:30 08/01/20 08:29 Vancomycin HCl 1 gm/Dextrose 275 ml @ 183.708 mls/hr Q24H IVPB 07/02/20 22:00 07/07/20 21:59 07/02/20 22:20 Zinc Sulfate (Zinc Sulfate) 220 mg DAILY GT 07/03/20 09:00 10/01/20 08:59 07/03/20 09:29 Assessment/Plan Assessment/Plan Pulmonary Progress Note HPI Patient is a 74-year-old woman with past medical history of chronic ventilator dependant respiratory failure status post trach, PEG, COPD, Atrial fibrillation, Schizophrenia, Parkinson's disease, Anxiety, Quadriplegia, Diabetes, gastritis. Admitted with UTI/Pyelonephritis,pneumonia after being noted to have a fever. History is limited secondary to patient's clinical condition. Stable on ventilator Past medical history: Chronic ventilator dependant respiratory failure, COPD, Atrial fibrillation, schizophrenia, Parkinson's disease, diabetes, quadriplegia, dysphagia, anemia,gastritis, sacral decubitus Past surgical history: Trach, PEG Allergies: No Known Allergies Physical Exam Vital Signs noted GENERAL: Awake, chronically ill-appearing, no acute distress. EYES: Pupils equal round and reactive reactive. Conjunctiva clear. ENT: External nose and ear appear normal. Oropharynx clear. Head atraumatic. Dry mucous membranes NECK: No thyromegaly. No midline tenderness. Trach in place, c/d/i, no discharge or bleeding. LUNGS: Normal respiratory effort. Clear to auscultation. No stridor. No rales. No wheezes. CARDIAC: Regular rate and rhythm. Normal radial pulses bilaterally. No significant pedal edema. ABDOMEN: Soft, nontender, and nondistended. No rebound/guarding. No hepatosplenomegaly. G-tube in place, epigastrium, c/d/i, no discharge or tenderness. MSK: Poor muscle tone, contractures with rigidity in extremities. Extremities without asymmetric deformity or swelling. NEUROLOGIC: Awake. Does not follow commands for motor and sensory exam. No truncal ataxia. GCS 2-4-2, protecting airway, intact gag reflex. Withdraws to pain in extremities, groans and opens eyes to sternal rub. SKIN: Warm and dry. No cyanosis or urticaria present. Impression: UTI Pneumonia Sepsis Hypernatremia Dehydration Chronic respiratory failure Tracheostomy dependence Diabetes S/P percutaneous endoscopic gastrostomy (PEG) tube placement Failure to thrive (child) Dementia Paroxysmal A-fib Protein calorie malnutrition Iron deficiency Parkinson disease Anemia Pyelonephritis Plan: ABG Wean FIO2 IV Antibiotics IVF HOT STICK MAN Medications/feeds ISS PPX Monitor labs EKG Rate: 80 bpm QTc: 433 Morphology: No ST elevations or depressions, No STEMI Chest X-Ray: Normal heart size. Mediastinum normal. Multifocal pneumonia, left greater than right pleural effusion. Tracheostomy is in place. No pneumothorax Jasvir Juarez MD Jul 03, 2020 16:35
--- NOTE | 2020-07-03 17:00 | NUR ---
NURSE NOTES: Pt. remain stable. V/S WNL. GTF tolerating well. Turned and repositioned.
--- NOTE | 2020-07-03 19:10 | NUR ---
NURSE NOTES: Received report from CRISTY Dorantes. Patient awake in bed, opens eyes and tracking, oriented to name, afebrile and no respiratory distress noterd. Vent to trache Portex 7, SIMV 12,m TV 45o, FiO2 30%, Peep 5, Pressure support 12 saturating at 99-100%. With Right hand 20g Iv line to D5W at 50cc/hr intact, flushed and asymptomatic. On Jevity 1.2 at 85cc/hr via GT infusing well without any sediments. With FC to urine bag draining well with yellowish urine. HOB elevated. Call light within reach. Bed rails are up and wheels are locked. Continue plan of care
--- NOTE | 2020-07-03 19:30 | NUR ---
NURSE HAND-OFF REPORT: Important Events on Shift: PT. REMAIN STABLE Patient Status: STABLE Diet: JEVITY 1.2 AT 65CC/HR Pending Orders: Pending Results/Labs: Pending MD notification: Latest Vital Signs: Temperature 98.4 , Pulse 62 , B/P 116 /58 , Respiratory Rate 18 , O2 SAT 93 , Mechanical Ventilator, O2 Flow Rate . Vital Sign Comment: EKG Rhythm: Sinus Bradycardia Rhythm change?: N MD Notified?: - MD Response: Latest [place] Fall Score: 70 Fall Risk: High Risk Safety Measures: Call light Within Reach, Bed Alarm Zone 2, Side Rails Side Rails x3, Bed position Low and Locked. Fall Precautions: Yellow Socks Yellow Gown Door Sign Patient Fall Education Report given to JOHNNY MUNIZ.
[2020-07-03 20:00] VITALS: BP 110/57
[2020-07-03] MEDS: Iron Sucrose 100 MG in NS 55 ML IV SCH (20:07)
--- NOTE | 2020-07-03 20:15 | NUR ---
NURSE NOTES: Placed a call to pharmacy and spoke to Devan ( pharmacist) regarding d5w and venofer compatibility using a secondary line. Devan verified that they are compatible. Noted and documented. Continue to monitor the patient
--- NOTE | 2020-07-03 20:15 | General Progress Note ---
Subjective ROS Limited/Unobtainable: Yes Allergies: Coded Allergies: No Known Allergies (Unverified , 11/22/15) Objective Last 24 Hour Vital Signs Date Time Temp Pulse Resp B/P (MAP) Pulse Ox O2 Delivery O2 Flow Rate FiO2 07/03/20 16:00 Mechanical Ventilator 07/03/20 16:00 30 07/03/20 16:00 98.4 62 18 116/58 (77) 93 07/03/20 15:22 59 07/03/20 15:19 61 19 30 07/03/20 12:00 Mechanical Ventilator 07/03/20 12:00 30 07/03/20 12:00 97.9 75 18 121/66 (84) 97 07/03/20 11:35 48 07/03/20 11:20 69 18 30 07/03/20 08:00 Mechanical Ventilator 07/03/20 08:00 30 07/03/20 08:00 97.9 56 18 100/73 (82) 100 07/03/20 07:55 51 07/03/20 07:21 52 12 30 07/03/20 04:00 58 07/03/20 04:00 30 07/03/20 04:00 98.1 59 20 109/56 (73) 100 07/03/20 04:00 Mechanical Ventilator 07/03/20 03:24 55 19 30 07/03/20 00:00 99.5 55 20 105/50 (68) 100 07/03/20 00:00 54 07/03/20 00:00 Mechanical Ventilator 07/03/20 00:00 30 07/02/20 23:15 51 16 30 Intake and Output 07/02/20 07/03/20 19:00 07:00 Intake Total 2185 ml 980 ml Output Total 1450 ml 425 ml Balance 735 ml 555 ml Intake Free Water 200 ml IV Total 2055 ml Tube Feeding 130 ml 780 ml Output Urine Total 1450 ml 425 ml # Bowel Movements 7 2 Laboratory Tests 07/02/20 23:26: POC Whole Blood Glucose 150H 07/03/20 04:30: White Blood Count 8.4, Red Blood Count 2.70L, Hemoglobin 7.9L, Hematocrit 25.2L, Mean Corpuscular Volume 93, Mean Corpuscular Hemoglobin 29.2, Mean Corpuscular Hemoglobin Concent 31.3L, Red Cell Distribution Width 14.7, Platelet Count 152, Mean Platelet Volume 9.5, Neutrophils (%) (Auto) , Lymphocytes (%) (Auto) , Monocytes (%) (Auto) , Eosinophils (%) (Auto) , Basophils (%) (Auto) , Differential Total Cells Counted 100, Neutrophils % (Manual) 74, Lymphocytes % (Manual) 13L, Monocytes % (Manual) 12H, Eosinophils % (Manual) 1, Basophils % (Manual) 0, Band Neutrophils 0, Platelet Estimate Adequate, Platelet Morphology Normal, Hypochromasia 3+, Sodium Level 150H, Potassium Level 4.1, Chloride Level 118H, Carbon Dioxide Level 26, Anion Gap 6, Blood Urea Nitrogen 50H, Creatinine 0.7, Estimat Glomerular Filtration Rate > 60, Glucose Level 159H, Hemoglobin A1c 5.7, Uric Acid 4.3, Calcium Level 9.4, Phosphorus Level 2.2L, Magnesium Level 2.3, Iron Level 18L, Total Iron Binding Capacity 172L, Percent Iron Saturation 10L, Unsaturated Iron Binding 154, Ferritin 386, Total Bilirubin 0.2, Gamma Glutamyl Transpeptidase 15, Aspartate Amino Transf (AST/SGOT) 20, Alanine Aminotransferase (ALT/SGPT) 25, Alkaline Phosphatase 114, Troponin I 0.015, C- Reactive Protein, Quantitative 11.7H, Pro-B-Type Natriuretic Peptide 1440H, Total Protein 7.2, Albumin 2.1L, Globulin 5.1, Albumin/Globulin Ratio 0.4L, Triglycerides Level 59, Cholesterol Level 129, LDL Cholesterol 79, HDL Cholesterol 37L, Cholesterol/HDL Ratio 3.5, Vitamin B12 Level 963, Folate 20.0, Thyroid Stimulating Hormone (TSH) 18.738H 07/03/20 06:05: POC Whole Blood Glucose 107H Height (Feet): 5 Height (Inches): 4.00 Weight (Pounds): 145 Assessment/Plan Problem List: (1) Dehydration ICD Codes: E86.0 - Dehydration SNOMED: 04696335 (2) Pneumonia ICD Codes: J18.9 - Pneumonia, unspecified organism SNOMED: 327384097 (3) Protein calorie malnutrition ICD Codes: E46 - Unspecified protein-calorie malnutrition SNOMED: 118128798 (4) Tracheostomy dependence ICD Codes: Z93.0 - Tracheostomy status SNOMED: 194891275 (5) Chronic respiratory failure ICD Codes: J96.10 - Chronic respiratory failure, unspecified whether with hypoxia or hypercapnia SNOMED: 38983658 (6) Hypothyroidism ICD Codes: E03.9 - Hypothyroidism, unspecified SNOMED: 39306063 (7) Pyelonephritis ICD Codes: N12 - Tubulo-interstitial nephritis, not specified as acute or chronic SNOMED: 49094123 (8) Sepsis ICD Codes: A41.9 - Sepsis, unspecified organism SNOMED: 80403594 (9) UTI (urinary tract infection) ICD Codes: N39.0 - Urinary tract infection, site not specified SNOMED: 19442316 (10) Anemia ICD Codes: D64.9 - Anemia, unspecified SNOMED: 532400062 (11) Dysphagia ICD Codes: R13.10 - Dysphagia, unspecified SNOMED: 46476609, 758791057 (12) Hypoalbuminemia ICD Codes: E88.09 - Other disorders of plasma-protein metabolism, not elsewhere classified SNOMED: 612060739 (13) Parkinson disease ICD Codes: G20 - Parkinson's disease SNOMED: 23767922 Status: progressing Assessment/Plan: afebrile anemia resp inusff malnutrition dehydration reviewed chart and lab Sandeep Oneil MD Jul 03, 2020 20:15
[2020-07-03] MEDS: Vancomycin 1gm/D5W 275ml IVPB SCH ×2 (21:40)
[2020-07-04] VITALS: BP 106/55
[2020-07-04 04:00] VITALS: BP 128/65
[2020-07-04] MEDS: NovoLOG Insulin Flexpen SUBQ SCH ×4 (06:26→23:23)
--- NOTE | 2020-07-04 06:29 | General Progress Note ---
Subjective ROS Limited/Unobtainable: No Allergies: Coded Allergies: No Known Allergies (Unverified , 11/22/15) Objective Last 24 Hour Vital Signs Date Time Temp Pulse Resp B/P (MAP) Pulse Ox O2 Delivery O2 Flow Rate FiO2 07/04/20 04:00 30 07/04/20 04:00 Mechanical Ventilator 07/04/20 03:33 61 20 30 07/04/20 00:00 30 07/04/20 00:00 98.2 58 18 106/55 (72) 93 07/04/20 00:00 Mechanical Ventilator 07/03/20 23:34 60 07/03/20 23:14 58 17 30 07/03/20 20:00 30 07/03/20 20:00 98.8 60 18 110/57 (74) 93 07/03/20 20:00 Mechanical Ventilator 07/03/20 19:52 59 20 30 07/03/20 19:32 60 07/03/20 16:00 Mechanical Ventilator 07/03/20 16:00 30 07/03/20 16:00 98.4 62 18 116/58 (77) 93 07/03/20 15:22 59 07/03/20 15:19 61 19 30 07/03/20 12:00 Mechanical Ventilator 07/03/20 12:00 30 07/03/20 12:00 97.9 75 18 121/66 (84) 97 07/03/20 11:35 48 07/03/20 11:20 69 18 30 07/03/20 08:00 Mechanical Ventilator 07/03/20 08:00 30 07/03/20 08:00 97.9 56 18 100/73 (82) 100 07/03/20 07:55 51 07/03/20 07:21 52 12 30 Intake and Output 07/03/20 07/04/20 19:00 07:00 Intake Total 1415 ml 2058.000 ml Output Total 1200 ml Balance 215 ml 2058.000 ml Intake Free Water 250 ml 130 ml IV Total 450 ml 1343.000 ml Tube Feeding 715 ml 585 ml Output Urine Total 1200 ml Laboratory Tests 07/03/20 23:06: POC Whole Blood Glucose 137H 07/04/20 05:09: POC Whole Blood Glucose 144H Height (Feet): 5 Height (Inches): 4.00 Weight (Pounds): 145 General Appearance: lethargic EENT: normal ENT inspection Neck: supple Cardiovascular: normal rate Respiratory/Chest: decreased breath sounds Abdomen: normal bowel sounds, non tender, soft Extremities: non-tender Assessment/Plan Status: progressing Assessment/Plan: 1. Respiratory failure, on chronic vent. 2. Dysphagia with G-tube. 3. COPD. 4. Atrial fibrillation. 5. Schizophrenia. 6. Parkinson disease. 7. Diabetes. 8. Quadriplegia. 9. Gastritis. 10. Iron def anemia GTF monitor for residuals IV iron fu stool ob CBC in am Gilbert Hooks MD Jul 04, 2020 06:29
--- NOTE | 2020-07-04 07:10 | NUR ---
NURSE NOTES: received patient report from vivek rn. patient is on vent at prescribed rate. gtube off per order, -. lara for retention, patent and draining. SB on the monitor. no acute events reported last night, afebrile, will follow plan of care.
[2020-07-04 07:25] LABS: BASOPHILS % (AUTO) 0.6 % (0.0-2.0); EOSINOPHILS % (AUTO) 1.9 % (0.0-3.0); HEMATOCRIT 25.5 % (37.0-47.0); LYMPHOCYTES % (AUTO) 19.5 % (20.0-45.0); MEAN CORPUSCULAR VOLUME 93 FL (80-99); MONOCYTES % (AUTO) 6.1 % (1.0-10.0); PLATELET COUNT 157 K/UL (150-450); RED BLOOD COUNT 2.74 M/UL (4.20-5.40); RED CELL DISTRIBUTION WIDTH 14.5 % (11.6-14.8); WHITE BLOOD COUNT 8.3 K/UL (4.8-10.8)
[2020-07-04 07:53] LABS: ALBUMIN 2.1 G/DL (3.4-5.0); ALBUMIN/GLOBULIN RATIO 0.4 (1.0-2.7); ALKALINE PHOSPHATASE 112 U/L (46-116); ANION GAP 6 mmol/L (5-15); ASPARTATE AMINO TRANSFERASE 17 U/L (15-37); BILIRUBIN,TOTAL 0.3 MG/DL (0.2-1.0); BLOOD UREA NITROGEN 41 mg/dL (7-18); CALCIUM 8.8 MG/DL (8.5-10.1); CARBON DIOXIDE 25 MMOL/L (21-32); CHLORIDE 113 MMOL/L (98-107); CREATININE 0.7 MG/DL (0.55-1.30); PHOSPHORUS 1.9 MG/DL (2.5-4.9); SODIUM 144 MMOL/L (136-145)
[2020-07-04 08:00] VITALS: BP 121/74
[2020-07-04] MEDS: Zinc Sulfate 220mg GT SCH (09:09)
[2020-07-04] MEDS: Ascorbic Acid 500mg tab GT SCH ×2 (09:09→17:00)
[2020-07-04] MEDS: Multivitamins W/Minerals 15 ML UDC GT SCH (09:09)
[2020-07-04] MEDS: Cefepime HCl 1 GM in D5W 55 ML IVPB SCH ×2 (09:10→21:02)
[2020-07-04] MEDS: Heparin 5000 units/ml inj SUBQ SCH ×2 (09:12→20:14)
[2020-07-04] MEDS: Amiodarone 200mg tab GT SCH (09:16)
--- NOTE | 2020-07-04 09:48 | General Progress Note ---
Subjective Constitutional: Reports: weakness Allergies: Coded Allergies: No Known Allergies (Unverified , 11/22/15) All Systems: reviewed and negative except above Subjective trach vent altered calm Objective Last 24 Hour Vital Signs Date Time Temp Pulse Resp B/P (MAP) Pulse Ox O2 Delivery O2 Flow Rate FiO2 07/04/20 08:00 98.0 55 17 121/74 (90) 100 07/04/20 08:00 30 07/04/20 07:50 57 19 30 07/04/20 04:00 30 07/04/20 04:00 Mechanical Ventilator 07/04/20 04:00 98.1 56 18 128/65 (86) 93 07/04/20 03:43 60 07/04/20 03:33 61 20 30 07/04/20 00:00 30 07/04/20 00:00 98.2 58 18 106/55 (72) 93 07/04/20 00:00 Mechanical Ventilator 07/03/20 23:34 60 07/03/20 23:14 58 17 30 07/03/20 20:00 30 07/03/20 20:00 98.8 60 18 110/57 (74) 93 07/03/20 20:00 Mechanical Ventilator 07/03/20 19:52 59 20 30 07/03/20 19:32 60 07/03/20 16:00 Mechanical Ventilator 07/03/20 16:00 30 07/03/20 16:00 98.4 62 18 116/58 (77) 93 07/03/20 15:22 59 07/03/20 15:19 61 19 30 07/03/20 12:00 Mechanical Ventilator 07/03/20 12:00 30 07/03/20 12:00 97.9 75 18 121/66 (84) 97 07/03/20 11:35 48 07/03/20 11:20 69 18 30 Intake and Output 07/03/20 07/04/20 19:00 07:00 Intake Total 1415 ml 2446.000 ml Output Total 1200 ml 600 ml Balance 215 ml 1846.000 ml Intake Free Water 250 ml 230 ml IV Total 450 ml 1436.000 ml Tube Feeding 715 ml 780 ml Output Urine Total 1200 ml 600 ml Laboratory Tests 07/03/20 23:06: POC Whole Blood Glucose 137H 07/04/20 05:03: White Blood Count 8.3, Red Blood Count 2.74L, Hemoglobin 8.0L, Hematocrit 25.5L, Mean Corpuscular Volume 93, Mean Corpuscular Hemoglobin 29.4, Mean Corpuscular Hemoglobin Concent 31.6L, Red Cell Distribution Width 14.5, Platelet Count 157, Mean Platelet Volume 9.2, Neutrophils (%) (Auto) 72.0, Lymphocytes (%) (Auto) 19.5L, Monocytes (%) (Auto) 6.1, Eosinophils (%) (Auto) 1.9, Basophils (%) (Auto) 0.6, Sodium Level 144, Potassium Level 4.0, Chloride Level 113H, Carbon Dioxide Level 25, Anion Gap 6, Blood Urea Nitrogen 41H, Creatinine 0.7, Estimat Glomerular Filtration Rate > 60, Glucose Level 151H, Calcium Level 8.8, Phosphorus Level 1.9L, Magnesium Level 2.1, Total Bilirubin 0.3, Aspartate Amino Transf (AST/SGOT) 17, Alanine Aminotransferase (ALT/SGPT) [Pending], Alkaline Phosphatase 112, C-Reactive Protein, Quantitative 5.9H, Pro-B-Type Natriuretic Peptide 1059H, Total Protein 7.1, Albumin 2.1L, Globulin 5.0, Albumin/Globulin Ratio 0.4L 07/04/20 05:09: POC Whole Blood Glucose 144H Height (Feet): 5 Height (Inches): 4.00 Weight (Pounds): 145 Assessment/Plan Problem List: (1) Pneumonia ICD Codes: J18.9 - Pneumonia, unspecified organism SNOMED: 684509772 (2) Tracheostomy dependence ICD Codes: Z93.0 - Tracheostomy status SNOMED: 125203412 (3) Chronic respiratory failure ICD Codes: J96.10 - Chronic respiratory failure, unspecified whether with hypoxia or hypercapnia SNOMED: 32969532 (4) Sepsis ICD Codes: A41.9 - Sepsis, unspecified organism SNOMED: 03311532 (5) Anemia ICD Codes: D64.9 - Anemia, unspecified SNOMED: 308751947 Status: unchanged Assessment/Plan: vent abx cbc bmp JoonTonybrenton ReganCorinne Jul 04, 2020 09:48
[2020-07-04] MEDS ORDERED: Potassium Phosphate 20 MM in NS 275 ML IV ONE (10:00)
[2020-07-04 10:05] LABS: ALANINE AMINOTRANSFERASE 26 U/L (12-78)
--- NOTE | 2020-07-04 10:23 | Nephrology Progress Note ---
Assessment/Plan Problem List: (1) Hypernatremia (2) Dehydration (3) Chronic respiratory failure (4) Tracheostomy dependence (5) Hypothyroidism (6) Hypoalbuminemia Assessment Hypernatremia, dehydration, Azotemia, dehydration, Pneumonia, sepsis, pyelonephritis Chronic trach and vent PEG Anemia Parkinson's Diabetes mellitus History of atrial fibrillation Plan July 04: Labs reviewed. Electrolyte abnormalities noted and addressed. Continue per consultants. D5W 50 cc an hour Change Synthroid to IV Continue same medication Recheck labs iron panel thyroid panel , results noted 2D echocardiogram to evaluate LV function, results pending Albumin bolus Continue per consultants Urine studies Subjective ROS Limited/Unobtainable: Yes Objective Objective Last 24 Hour Vital Signs Date Time Temp Pulse Resp B/P (MAP) Pulse Ox O2 Delivery O2 Flow Rate FiO2 07/04/20 08:00 98.0 55 17 121/74 (90) 100 07/04/20 08:00 30 07/04/20 07:50 57 19 30 07/04/20 04:00 30 07/04/20 04:00 Mechanical Ventilator 07/04/20 04:00 98.1 56 18 128/65 (86) 93 07/04/20 03:43 60 07/04/20 03:33 61 20 30 07/04/20 00:00 30 07/04/20 00:00 98.2 58 18 106/55 (72) 93 07/04/20 00:00 Mechanical Ventilator 07/03/20 23:34 60 07/03/20 23:14 58 17 30 07/03/20 20:00 30 07/03/20 20:00 98.8 60 18 110/57 (74) 93 07/03/20 20:00 Mechanical Ventilator 07/03/20 19:52 59 20 30 07/03/20 19:32 60 07/03/20 16:00 Mechanical Ventilator 07/03/20 16:00 30 07/03/20 16:00 98.4 62 18 116/58 (77) 93 07/03/20 15:22 59 07/03/20 15:19 61 19 30 07/03/20 12:00 Mechanical Ventilator 07/03/20 12:00 30 07/03/20 12:00 97.9 75 18 121/66 (84) 97 07/03/20 11:35 48 10/4/20 11:20 69 18 30 Intake and Output 07/03/20 07/04/20 19:00 07:00 Intake Total 1415 ml 2446.000 ml Output Total 1200 ml 600 ml Balance 215 ml 1846.000 ml Intake Free Water 250 ml 230 ml IV Total 450 ml 1436.000 ml Tube Feeding 715 ml 780 ml Output Urine Total 1200 ml 600 ml Laboratory Tests 07/03/20 23:06: POC Whole Blood Glucose 137H 07/04/20 05:03: White Blood Count 8.3, Red Blood Count 2.74L, Hemoglobin 8.0L, Hematocrit 25.5L, Mean Corpuscular Volume 93, Mean Corpuscular Hemoglobin 29.4, Mean Corpuscular Hemoglobin Concent 31.6L, Red Cell Distribution Width 14.5, Platelet Count 157, Mean Platelet Volume 9.2, Neutrophils (%) (Auto) 72.0, Lymphocytes (%) (Auto) 19.5L, Monocytes (%) (Auto) 6.1, Eosinophils (%) (Auto) 1.9, Basophils (%) (Auto) 0.6, Sodium Level 144, Potassium Level 4.0, Chloride Level 113H, Carbon Dioxide Level 25, Anion Gap 6, Blood Urea Nitrogen 41H, Creatinine 0.7, Estimat Glomerular Filtration Rate > 60, Glucose Level 151H, Calcium Level 8.8, Phosphorus Level 1.9L, Magnesium Level 2.1, Total Bilirubin 0.3, Aspartate Amino Transf (AST/SGOT) 17, Alanine Aminotransferase (ALT/SGPT) 26, Alkaline Phosphatase 112, C-Reactive Protein, Quantitative 5.9H, Pro-B-Type Natriuretic Peptide 1059H, Total Protein 7.1, Albumin 2.1L, Globulin 5.0, Albumin/Globulin Ratio 0.4L 07/04/20 05:09: POC Whole Blood Glucose 144H Height (Feet): 5 Height (Inches): 4.00 Weight (Pounds): 145 General Appearance: no apparent distress EENT: other - On mechanical ventilation Cardiovascular: normal rate Respiratory/Chest: decreased breath sounds Abdomen: soft Dante Chau MD Jul 04, 2020 10:23
--- NOTE | 2020-07-04 10:33 | NUR ---
NURSE NOTES: Skin/wound assessment:sacral stage 4 pressure ulcer2.6x2.6x2.4 undermining 7-3 1oclock 3.0cm dark red wound bed with 80% granulation and 20% yellow slough no odor, moderate amount serosanguineous drainage Thera honey and optifoam applied.Right elbow stage 2 pressure ulcer 0.3x0.3x0.2 pink wound bed scant serosanguineous drainage skin barrier and optifom applied.Left ear stage 3 pressure ulcer 2.0x0.5x0.3 pink wound bed small amount serosanguineous drainage Thera honey and optifoam applied. Patient is contracted upper body head bent to left side .Patient seen by wound physician ,she is on an air mattress
--- NOTE | 2020-07-04 10:41 | NUR ---
RD ASSESSMENT & RECOMMENDATIONS SEE CARE ACTIVITY FOR COMPLETE ASSESSMENT DAILY ESTIMATED NEEDS: Needs based on Advanced wound, critical care/ 58kg abw 25-30 kcals/kg 5378-0786 total kcals 1.5-2.0 g protein/kg 87-116 g total protein 25-30 mL/kg 6849-0477 total fluid mLs NUTRITION DIAGNOSIS: * Increased kcal/prot needs R/T wound healing as evidenced by pt * Swallowing difficulty R/T dysphagia, h/o Parkinson's disease as evidenced by pt on pureed texture diet C[employer] T[employer]ER, 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 CURRENT TF:Glucerna 1.2 @ 65ml/hr x 20 hrs ENTERAL NUTRITION RECOMMENDATIONS: Glucerna 1.2 @ 70ml/hr x 20 hrs to provide 1400ml, 1680kcal, 84g prot, 1127ml free water * Increase goal rate to 70ml/hr x 20 hrs to better meet est needs * Add KEVIN BID via PEG for wound healing (+ additional 5g prot, TF + Kevin BID will provide 100% est prot needs) * HOB over 30 degrees/ water flush per MD ADDITIONAL RECOMMENDATIONS: * Calibrated bedscale wt for accurate CBW * Wound healing: continue Vit C and ZnSO4 add Kevin BID via PEG * Monitor lytes, replete as needed ( low phos 1.9) * Monitor BGs w/ TF- cont carb controlled diet .
--- NOTE | 2020-07-04 10:52 | Pulmonology Progress Note ---
Subjective ROS Limited/Unobtainable: Yes Interval Events: None new; trach site clean Constitutional: Reports: no symptoms HEENT: Repors: no symptoms Respiratory: Reports: no symptoms Cardiovascular: Reports: no symptoms Gastrointestinal/Abdominal: Reports: no symptoms Genitourinary: Reports: no symptoms Allergies: Coded Allergies: No Known Allergies (Unverified , 11/22/15) All Systems: reviewed and negative except above Objective Last 24 Hour Vital Signs Date Time Temp Pulse Resp B/P (MAP) Pulse Ox O2 Delivery O2 Flow Rate FiO2 07/04/20 08:00 98.0 55 17 121/74 (90) 100 07/04/20 08:00 30 07/04/20 07:50 57 19 30 07/04/20 04:00 30 07/04/20 04:00 Mechanical Ventilator 07/04/20 04:00 98.1 56 18 128/65 (86) 93 07/04/20 03:43 60 07/04/20 03:33 61 20 30 07/04/20 00:00 30 07/04/20 00:00 98.2 58 18 106/55 (72) 93 07/04/20 00:00 Mechanical Ventilator 07/03/20 23:34 60 07/03/20 23:14 58 17 30 07/03/20 20:00 30 07/03/20 20:00 98.8 60 18 110/57 (74) 93 07/03/20 20:00 Mechanical Ventilator 07/03/20 19:52 59 20 30 07/03/20 19:32 60 07/03/20 16:00 Mechanical Ventilator 07/03/20 16:00 30 07/03/20 16:00 98.4 62 18 116/58 (77) 93 07/03/20 15:22 59 07/03/20 15:19 61 19 30 07/03/20 12:00 Mechanical Ventilator 07/03/20 12:00 30 07/03/20 12:00 97.9 75 18 121/66 (84) 97 07/03/20 11:35 48 07/03/20 11:20 69 18 30 Intake and Output 07/03/20 07/04/20 19:00 07:00 Intake Total 1415 ml 2446.000 ml Output Total 1200 ml 600 ml Balance 215 ml 1846.000 ml Intake Free Water 250 ml 230 ml IV Total 450 ml 1436.000 ml Tube Feeding 715 ml 780 ml Output Urine Total 1200 ml 600 ml General Appearance: no acute distress HEENT: status post trach Respiratory: chest wall non-tender, lungs clear Cardiovascular: normal peripheral pulses, normal rate Abdomen: normal bowel sounds Extremities: no cyanosis Microbiology Date/Time Source Procedure Growth Status 07/01/20 23:30 Rectum - Final NO CARBAPENEM-RESISTANT ENTEROBACTERI... Complete 07/01/20 23:30 Rectum VRE Culture - Final Enterococcus Faecium - Vre Complete 07/01/20 23:30 Indwelling Cath Urine Culture - Preliminary Acinetobacter Baumannii Complx Resulted 07/01/20 23:30 Nasal Nares MRSA Culture - Final NO METHICILLIN RESISTANT STAPH AUREUS... Complete 07/01/20 23:30 Nasopharynx SARS-CoV-2 RdRp Gene Assay - Final Complete 07/01/20 23:30 Blood Blood Culture - Preliminary NO GROWTH AFTER 48 HOURS Resulted 07/01/20 23:15 Blood Blood Culture - Preliminary NO GROWTH AFTER 48 HOURS Resulted Laboratory Tests 07/03/20 23:06: POC Whole Blood Glucose 137H 07/04/20 05:03: White Blood Count 8.3, Red Blood Count 2.74L, Hemoglobin 8.0L, Hematocrit 25.5L, Mean Corpuscular Volume 93, Mean Corpuscular Hemoglobin 29.4, Mean Corpuscular Hemoglobin Concent 31.6L, Red Cell Distribution Width 14.5, Platelet Count 157, Mean Platelet Volume 9.2, Neutrophils (%) (Auto) 72.0, Lymphocytes (%) (Auto) 19.5L, Monocytes (%) (Auto) 6.1, Eosinophils (%) (Auto) 1.9, Basophils (%) (Auto) 0.6, Sodium Level 144, Potassium Level 4.0, Chloride Level 113H, Carbon Dioxide Level 25, Anion Gap 6, Blood Urea Nitrogen 41H, Creatinine 0.7, Estimat Glomerular Filtration Rate > 60, Glucose Level 151H, Calcium Level 8.8, Phosphorus Level 1.9L, Magnesium Level 2.1, Total Bilirubin 0.3, Aspartate Amino Transf (AST/SGOT) 17, Alanine Aminotransferase (ALT/SGPT) 26, Alkaline Phosphatase 112, C-Reactive Protein, Quantitative 5.9H, Pro-B-Type Natriuretic Peptide 1059H, Total Protein 7.1, Albumin 2.1L, Globulin 5.0, Albumin/Globulin Ratio 0.4L 07/04/20 05:09: POC Whole Blood Glucose 144H Current Medications Medications (Trade) Dose Ordered Sig/Alex Route PRN Reason Start Time Stop Time Status Last Admin Dose Admin Acetaminophen (Tylenol) 650 mg Q6H PRN GT FOR TEMP > 100.4 07/02/20 09:45 08/01/20 09:44 Acetaminophen (Tylenol) 650 mg Q6H PRN GT Mild Pain (Pain Scale 1-3) 07/02/20 10:00 08/01/20 09:59 Acetaminophen/ Hydrocodone Bitart ([place] 5/325) 1 tab Q6H PRN GT Severe Pain (Pain Scale 7-10) 07/02/20 09:45 07/09/20 09:44 Amiodarone HCl (Cordarone) 200 mg DAILY GT 07/02/20 19:15 09/30/20 19:14 07/04/20 09:16 Ascorbic Acid (Vitamin C) 500 mg TWICE A DAY GT 07/02/20 18:00 08/01/20 17:59 07/04/20 09:09 Cefepime HCl 1 gm/ Dextrose 55 ml @ 110 mls/hr EVERY 12 HOURS IVPB 07/02/20 09:00 07/09/20 08:59 07/04/20 09:10 Dextrose 1,000 ml @ 50 mls/hr Q20H IV 07/03/20 09:30 08/02/20 09:29 07/04/20 05:09 Dextrose (Dextrose 50%) 25 ml Q30M PRN IV Hypoglycemia 07/02/20 09:45 09/30/20 09:44 Dextrose (Dextrose 50%) 50 ml Q30M PRN IV Hypoglycemia 07/02/20 09:45 09/30/20 09:44 Famotidine (Pepcid) 20 mg DAILY GT 07/03/20 09:00 10/01/20 08:59 07/04/20 09:09 Heparin Sodium (Porcine) (Heparin 5000 units/ml) 5,000 units EVERY 12 HOURS SUBQ 07/02/20 21:00 08/16/20 20:59 07/04/20 09:12 Insulin Aspart (NovoLOG) Q6HR SUBQ 07/02/20 12:00 09/30/20 11:59 07/04/20 06:26 Iron Sucrose 100 mg/Sodium Chloride 60 ml @ 240 mls/hr BEDTIME IV 07/03/20 21:00 07/07/20 21:14 07/03/20 20:07 Lansoprazole (Prevacid) 30 mg DAILY GT 07/04/20 09:00 08/03/20 08:59 07/04/20 09:09 Levothyroxine Sodium (Synthroid) 50 mcg DAILY IV 07/04/20 09:00 08/03/20 08:59 07/04/20 10:39 Multivitamins (Multivitamins W/ Minerals 15ml Liquid) 15 ml DAILY GT 07/03/20 09:00 08/02/20 08:59 07/04/20 09:09 Ondansetron HCl (Zofran) 4 mg Q6H PRN IVP Nausea & Vomiting 07/02/20 09:45 08/01/20 09:44 Potassium Phosphate 20 mm/ Sodium Chloride 281.6667 ml @ 46.944 m... ONCE ONCE IV 07/04/20 10:00 07/04/20 15:59 07/04/20 10:40 Vancomycin HCl (Vanco pharmacy to dose) 1 ea DAILY PRN MISC Per rx protocol 07/02/20 08:30 08/01/20 08:29 Vancomycin HCl 1 gm/Dextrose 275 ml @ 183.708 mls/hr Q24H IVPB 07/02/20 22:00 07/07/20 21:59 07/03/20 21:40 Zinc Sulfate (Zinc Sulfate) 220 mg DAILY GT 07/03/20 09:00 10/01/20 08:59 07/04/20 09:09 Assessment/Plan Assessment/Plan Impression: UTI Pneumonia Sepsis Hypernatremia Dehydration Chronic respiratory failure Tracheostomy dependence Diabetes S/P percutaneous endoscopic gastrostomy (PEG) tube placement Failure to thrive (child) Dementia Paroxysmal A-fib Protein calorie malnutrition Iron deficiency Parkinson disease Anemia Pyelonephritis Plan: ABG prn Wean FIO2 IV Antibiotics IVF EMERGENCY MEDCL EMT Medications/feeds ISS PPX Monitor labs maintain on IMV + PSV; FiO2 30% Mino Childs MD Jul 04, 2020 10:52
--- NOTE | 2020-07-04 11:11 | NUR ---
CASE MANAGEMENT: REVIEW 74 YEAR OLD FEMALE BIBA FROM [facility] CC: FEVER SI: SEPSIS . SEVERE DEHYDRATION . T 101.3 HR 59 RR 30 BP 107/54 SAT 100% MECH VENT FIO2 100% WBC 14.1 H/H 7.9/25.2 GLUCOSE 151 BNP 1059 NA 148 BUN 67 IS: VANCOMYCIN IV X1 NS IVF BOLUS X1 CEFEPIME IV X1 SOLU CORTEF IV X1 TYLENOL 650MG RECTAL X1 ALBUMIN IV WIDE OPEN X1 PATIENT ADMITTED TO [facility] UNIT 07/01/2020 DCP: PATIENT IS FROM [facility]
--- NOTE | 2020-07-04 11:14 | Infectious Diseases Prog Note ---
Assessment/Plan Assessment/Plan IMPRESSION: Sepsis improving Pneumonia. Acinetobacter UTI. anemia, chronic respiratory failure, COPD, diabetes mellitus, hypertension, hypothyroidism, pressure ulcer, hypernatremia and dehydration. VRE carrier RECOMMENDATION: We will continue with cefepime Change vancomycin to Doxycycline Will f/u cultures Subjective ROS Limited/Unobtainable: Yes Allergies: Coded Allergies: No Known Allergies (Unverified , 11/22/15) Objective Last 24 Hour Vital Signs Date Time Temp Pulse Resp B/P (MAP) Pulse Ox O2 Delivery O2 Flow Rate FiO2 07/04/20 08:00 98.0 55 17 121/74 (90) 100 07/04/20 08:00 30 07/04/20 07:50 57 19 30 07/04/20 04:00 30 07/04/20 04:00 Mechanical Ventilator 07/04/20 04:00 98.1 56 18 128/65 (86) 93 07/04/20 03:43 60 07/04/20 03:33 61 20 30 07/04/20 00:00 30 07/04/20 00:00 98.2 58 18 106/55 (72) 93 07/04/20 00:00 Mechanical Ventilator 07/03/20 23:34 60 07/03/20 23:14 58 17 30 07/03/20 20:00 30 07/03/20 20:00 98.8 60 18 110/57 (74) 93 07/03/20 20:00 Mechanical Ventilator 07/03/20 19:52 59 20 30 07/03/20 19:32 60 07/03/20 16:00 Mechanical Ventilator 07/03/20 16:00 30 07/03/20 16:00 98.4 62 18 116/58 (77) 93 07/03/20 15:22 59 07/03/20 15:19 61 19 30 07/03/20 12:00 Mechanical Ventilator 07/03/20 12:00 30 07/03/20 12:00 97.9 75 18 121/66 (84) 97 07/03/20 11:35 48 07/03/20 11:20 69 18 30 Height (Feet): 5 Height (Inches): 4.00 Weight (Pounds): 145 HEENT: status post trach Respiratory/Chest: lungs clear, other - on ventilator Cardiovascular: bradycardia Abdomen: soft, non tender, other - GT feeding Extremities: no edema, other - contractures Neurologic/Psychiatric: aphasia, other - opens eyes Microbiology Date/Time Source Procedure Growth Status 07/01/20 23:30 Rectum - Final NO CARBAPENEM-RESISTANT ENTEROBACTERI... Complete 07/01/20 23:30 Rectum VRE Culture - Final Enterococcus Faecium - Vre Complete 07/01/20 23:30 Indwelling Cath Urine Culture - Preliminary Acinetobacter Baumannii Complx Resulted 07/01/20 23:30 Nasal Nares MRSA Culture - Final NO METHICILLIN RESISTANT STAPH AUREUS... Complete 07/01/20 23:30 Nasopharynx SARS-CoV-2 RdRp Gene Assay - Final Complete 07/01/20 23:30 Blood Blood Culture - Preliminary NO GROWTH AFTER 48 HOURS Resulted 07/01/20 23:15 Blood Blood Culture - Preliminary NO GROWTH AFTER 48 HOURS Resulted Laboratory Tests Test 07/03/20 23:06 07/04/20 05:03 07/04/20 05:09 POC Whole Blood Glucose 137 MG/DL (74-106) H 144 MG/DL (74-106) H White Blood Count 8.3 K/UL (4.8-10.8) Red Blood Count 2.74 M/UL (4.20-5.40) L Hemoglobin 8.0 G/DL (12.0-16.0) L Hematocrit 25.5 % (37.0-47.0) L Mean Corpuscular Volume 93 FL (80-99) Mean Corpuscular Hemoglobin 29.4 PG (27.0-31.0) Mean Corpuscular Hemoglobin Concent 31.6 G/DL (32.0-36.0) L Red Cell Distribution Width 14.5 % (11.6-14.8) Platelet Count 157 K/UL (150-450) Mean Platelet Volume 9.2 FL (6.5-10.1) Neutrophils (%) (Auto) 72.0 % (45.0-75.0) Lymphocytes (%) (Auto) 19.5 % (20.0-45.0) L Monocytes (%) (Auto) 6.1 % (1.0-10.0) Eosinophils (%) (Auto) 1.9 % (0.0-3.0) Basophils (%) (Auto) 0.6 % (0.0-2.0) Sodium Level 144 MMOL/L (136-145) Potassium Level 4.0 MMOL/L (3.5-5.1) Chloride Level 113 MMOL/L (98-107) H Carbon Dioxide Level 25 MMOL/L (21-32) Anion Gap 6 mmol/L (5-15) Blood Urea Nitrogen 41 mg/dL (7-18) H Creatinine 0.7 MG/DL (0.55-1.30) Estimat Glomerular Filtration Rate > 60 mL/min (>60) Glucose Level 151 MG/DL (74-106) H Calcium Level 8.8 MG/DL (8.5-10.1) Phosphorus Level 1.9 MG/DL (2.5-4.9) L Magnesium Level 2.1 MG/DL (1.8-2.4) Total Bilirubin 0.3 MG/DL (0.2-1.0) Aspartate Amino Transf (AST/SGOT) 17 U/L (15-37) Alanine Aminotransferase (ALT/SGPT) 26 U/L (12-78) Alkaline Phosphatase 112 U/L (46-116) C-Reactive Protein, Quantitative 5.9 mg/dL (0.00-0.90) H Pro-B-Type Natriuretic Peptide 1059 pg/mL (0-125) H Total Protein 7.1 G/DL (6.4-8.2) Albumin 2.1 G/DL (3.4-5.0) L Globulin 5.0 g/dL Albumin/Globulin Ratio 0.4 (1.0-2.7) L Current Medications Medications (Trade) Dose Ordered Sig/Alex Route PRN Reason Start Time Stop Time Status Last Admin Dose Admin Acetaminophen (Tylenol) 650 mg Q6H PRN GT FOR TEMP > 100.4 07/02/20 09:45 08/01/20 09:44 Acetaminophen (Tylenol) 650 mg Q6H PRN GT Mild Pain (Pain Scale 1-3) 07/02/20 10:00 08/01/20 09:59 Acetaminophen/ Hydrocodone Bitart ([place] 5/325) 1 tab Q6H PRN GT Severe Pain (Pain Scale 7-10) 07/02/20 09:45 07/09/20 09:44 Amiodarone HCl (Cordarone) 200 mg DAILY GT 07/02/20 19:15 09/30/20 19:14 07/04/20 09:16 Ascorbic Acid (Vitamin C) 500 mg TWICE A DAY GT 07/02/20 18:00 08/01/20 17:59 07/04/20 09:09 Cefepime HCl 1 gm/ Dextrose 55 ml @ 110 mls/hr EVERY 12 HOURS IVPB 07/02/20 09:00 07/09/20 08:59 07/04/20 09:10 Dextrose 1,000 ml @ 50 mls/hr Q20H IV 07/03/20 09:30 08/02/20 09:29 07/04/20 05:09 Dextrose (Dextrose 50%) 25 ml Q30M PRN IV Hypoglycemia 07/02/20 09:45 09/30/20 09:44 Dextrose (Dextrose 50%) 50 ml Q30M PRN IV Hypoglycemia 07/02/20 09:45 09/30/20 09:44 Famotidine (Pepcid) 20 mg DAILY GT 07/03/20 09:00 10/01/20 08:59 07/04/20 09:09 Heparin Sodium (Porcine) (Heparin 5000 units/ml) 5,000 units EVERY 12 HOURS SUBQ 07/02/20 21:00 08/16/20 20:59 07/04/20 09:12 Insulin Aspart (NovoLOG) Q6HR SUBQ 07/02/20 12:00 09/30/20 11:59 07/04/20 06:26 Iron Sucrose 100 mg/Sodium Chloride 60 ml @ 240 mls/hr BEDTIME IV 07/03/20 21:00 07/07/20 21:14 07/03/20 20:07 Lansoprazole (Prevacid) 30 mg DAILY GT 07/04/20 09:00 08/03/20 08:59 07/04/20 09:09 Levothyroxine Sodium (Synthroid) 50 mcg DAILY IV 07/04/20 09:00 08/03/20 08:59 07/04/20 10:39 Multivitamins (Multivitamins W/ Minerals 15ml Liquid) 15 ml DAILY GT 07/03/20 09:00 08/02/20 08:59 07/04/20 09:09 Ondansetron HCl (Zofran) 4 mg Q6H PRN IVP Nausea & Vomiting 07/02/20 09:45 08/01/20 09:44 Potassium Phosphate 20 mm/ Sodium Chloride 281.6667 ml @ 46.944 m... ONCE ONCE IV 07/04/20 10:00 07/04/20 15:59 07/04/20 10:40 Vancomycin HCl (Vanco pharmacy to dose) 1 ea DAILY PRN MISC Per rx protocol 07/02/20 08:30 08/01/20 08:29 Vancomycin HCl 1 gm/Dextrose 275 ml @ 183.708 mls/hr Q24H IVPB 07/02/20 22:00 07/07/20 21:59 07/03/20 21:40 Zinc Sulfate (Zinc Sulfate) 220 mg DAILY GT 07/03/20 09:00 10/01/20 08:59 07/04/20 09:09 Mahesh Nicole MD Jul 04, 2020 11:14
[2020-07-04 12:00] VITALS: BP 125/70
[2020-07-04] MEDS: Doxycycline Monohydrate 100mg GT SCH ×2 (12:47→23:23)
--- NOTE | 2020-07-04 14:18 | Surgery Progress Note ---
Surgery Progress Note Subjective Additional Comments labs improved comfortable no n/v tolerating Objective Last 24 Hour Vital Signs Date Time Temp Pulse Resp B/P (MAP) Pulse Ox O2 Delivery O2 Flow Rate FiO2 07/04/20 12:00 Mechanical Ventilator 07/04/20 12:00 98.3 56 18 125/70 (88) 100 07/04/20 12:00 30 07/04/20 11:30 58 19 30 07/04/20 08:00 98.0 55 17 121/74 (90) 100 07/04/20 08:00 Mechanical Ventilator 07/04/20 08:00 30 07/04/20 08:00 57 07/04/20 07:50 57 19 30 07/04/20 04:00 30 07/04/20 04:00 Mechanical Ventilator 07/04/20 04:00 98.1 56 18 128/65 (86) 93 07/04/20 03:43 60 07/04/20 03:33 61 20 30 07/04/20 00:00 30 07/04/20 00:00 98.2 58 18 106/55 (72) 93 07/04/20 00:00 Mechanical Ventilator 07/03/20 23:34 60 07/03/20 23:14 58 17 30 07/03/20 20:00 30 07/03/20 20:00 98.8 60 18 110/57 (74) 93 07/03/20 20:00 Mechanical Ventilator 07/03/20 19:52 59 20 30 07/03/20 19:32 60 07/03/20 16:00 Mechanical Ventilator 07/03/20 16:00 30 07/03/20 16:00 98.4 62 18 116/58 (77) 93 07/03/20 15:22 59 07/03/20 15:19 61 19 30 I&O Intake and Output 07/03/20 07/04/20 19:00 07:00 Intake Total 1415 ml 2446.000 ml Output Total 1200 ml 600 ml Balance 215 ml 1846.000 ml Intake Free Water 250 ml 230 ml IV Total 450 ml 1436.000 ml Tube Feeding 715 ml 780 ml Output Urine Total 1200 ml 600 ml Dressing: saturated Cardiovascular: RSR Respiratory: decreased breath sounds Abdomen: soft, non-tender, present bowel sounds Extremities: no tenderness, no cyanosis Laboratory Tests Test 10/4/20 23:06 07/04/20 05:03 07/04/20 05:09 07/04/20 11:48 POC Whole Blood Glucose 137 MG/DL (74-106) H 144 MG/DL (74-106) H 94 MG/DL (74-106) White Blood Count 8.3 K/UL (4.8-10.8) Red Blood Count 2.74 M/UL (4.20-5.40) L Hemoglobin 8.0 G/DL (12.0-16.0) L Hematocrit 25.5 % (37.0-47.0) L Mean Corpuscular Volume 93 FL (80-99) Mean Corpuscular Hemoglobin 29.4 PG (27.0-31.0) Mean Corpuscular Hemoglobin Concent 31.6 G/DL (32.0-36.0) L Red Cell Distribution Width 14.5 % (11.6-14.8) Platelet Count 157 K/UL (150-450) Mean Platelet Volume 9.2 FL (6.5-10.1) Neutrophils (%) (Auto) 72.0 % (45.0-75.0) Lymphocytes (%) (Auto) 19.5 % (20.0-45.0) L Monocytes (%) (Auto) 6.1 % (1.0-10.0) Eosinophils (%) (Auto) 1.9 % (0.0-3.0) Basophils (%) (Auto) 0.6 % (0.0-2.0) Sodium Level 144 MMOL/L (136-145) Potassium Level 4.0 MMOL/L (3.5-5.1) Chloride Level 113 MMOL/L (98-107) H Carbon Dioxide Level 25 MMOL/L (21-32) Anion Gap 6 mmol/L (5-15) Blood Urea Nitrogen 41 mg/dL (7-18) H Creatinine 0.7 MG/DL (0.55-1.30) Estimat Glomerular Filtration Rate > 60 mL/min (>60) Glucose Level 151 MG/DL (74-106) H Calcium Level 8.8 MG/DL (8.5-10.1) Phosphorus Level 1.9 MG/DL (2.5-4.9) L Magnesium Level 2.1 MG/DL (1.8-2.4) Total Bilirubin 0.3 MG/DL (0.2-1.0) Aspartate Amino Transf (AST/SGOT) 17 U/L (15-37) Alanine Aminotransferase (ALT/SGPT) 26 U/L (12-78) Alkaline Phosphatase 112 U/L (46-116) C-Reactive Protein, Quantitative 5.9 mg/dL (0.00-0.90) H Pro-B-Type Natriuretic Peptide 1059 pg/mL (0-125) H Total Protein 7.1 G/DL (6.4-8.2) Albumin 2.1 G/DL (3.4-5.0) L Globulin 5.0 g/dL Albumin/Globulin Ratio 0.4 (1.0-2.7) L Plan Problems: (1) Dehydration (2) Hypernatremia (3) Pneumonia (4) Protein calorie malnutrition Assessment & Plan: bmi 25 alb 2.1 wounds with granulation tissue cont tf as tolerated DAILY ESTIMATED NEEDS: Needs based on Advanced wound, critical care/ 58kg abw 25-30 kcals/kg 6555-3693 total kcals 1.5-2.0 g protein/kg 87-116 g total protein 25-30 mL/kg 5481-0802 total fluid mLs NUTRITION DIAGNOSIS: * Increased kcal/prot needs R/T wound healing as evidenced by pt * Swallowing difficulty R/T dysphagia, h/o Parkinson's disease as evidenced by pt on pureed texture diet [employer]GER, 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 CURRENT TF:Glucerna 1.2 @ 65ml/hr x 20 hrs ENTERAL NUTRITION RECOMMENDATIONS: Glucerna 1.2 @ 70ml/hr x 20 hrs to provide 1400ml, 1680kcal, 84g prot, 1127ml free water * Increase goal rate to 70ml/hr x 20 hrs to better meet est needs * Add KEVIN BID via PEG for wound healing (+ additional 5g prot, TF + Kevin BID will provide 100% est prot needs) * HOB over 30 degrees/ water flush per MD ADDITIONAL RECOMMENDATIONS: * Calibrated bedscale wt for accurate CBW * Wound healing: continue Vit C and ZnSO4 add Kevin BID via PEG * Monitor lytes, replete as needed ( low phos 1.9) * Monitor BGs w/ TF- cont carb controlled diet (5) Failure to thrive (child) (6) Tracheostomy dependence Assessment & Plan: trach stable dressings changed no acute intervention (7) Chronic respiratory failure (8) Hypothyroidism (9) Pyelonephritis (10) Sacral decubitus ulcer Assessment & Plan: Pt presented on admission with full thickness Stage 4 sacral pressure injury. Base of wound has tissue viable. (L)3cm x (W)3.5cm x 3cm deep. Scattered areas of maceration along borders. Mixed pink epithelial and hyperpigmentation periwound. Additionally two small wounds noted to R and L buttocks within area of hyperpigmentation. R and L heels are both soft but easily blanchable.No other skin concerns noted. left ear with abrasion Tx.Plan: Cleanse sacral wound with Saline. Apply Therahoney gauze packing. Apply Moisture Barrier paste periwound. Cover with Optifoam drsg. Change every 1 days and prn. Apply Cavilon Skin Barrier to both heels. Cover each heel with Optifoam drsg. Change every 7 days and prn. Apply therahoney to left ear and cover with foam dressings. change q3 days APM/YOLY Mattress overlay. Reposition at least every 2hours or as tolerated. Off-load heels with pillow. (11) Sepsis (12) UTI (urinary tract infection) (13) Anemia (14) Dysphagia (15) Hypoalbuminemia (16) Iron deficiency (17) At high risk for aspiration (18) Parkinson disease (19) Dementia (20) Elevated CEA (21) Paroxysmal A-fib (22) Pancytopenia Holland Petty Jul 04, 2020 14:18
[2020-07-04 16:00] VITALS: BP 127/70
--- NOTE | 2020-07-04 17:00 | NUR ---
NURSE NOTES: Dr guy Dupree made aware that family member is concerned about the breast lump on the R side, dr Dupree consulted Dr Cazares regarding this. Familly kezia called and made aware of this. will continue to monitor.
[2020-07-04] MEDS ORDERED: Tubing IV Secondary IV ONE (18:31)
--- NOTE | 2020-07-04 19:00 | NUR ---
NURSE NOTES: NURSE HAND-OFF REPORT: Important Events on Shift:stable Patient Status: full code Diet: glucerna 1.2x 20hrs @ 65 Pending Orders: sputum, labs francisco Pending Results/Labs:[] Pending MD notification:[] Latest Vital Signs: Temperature 97.4 , Pulse 59 , B/P 127 /70 , Respiratory Rate 21 , O2 SAT 100 , Mechanical Ventilator, O2 Flow Rate . Vital Sign Comment: [] EKG Rhythm: Sinus Bradycardia Rhythm change?: N MD Notified?: - MD Response: Latest [place] Fall Score: 70 Fall Risk: High Risk Safety Measures: Call light Within Reach, Bed Alarm Zone 2, Side Rails Side Rails x3, Bed position Low and Locked. Fall Precautions: Yellow Socks Report given to JOHNNY marie.
--- NOTE | 2020-07-04 19:10 | NUR ---
NURSE NOTES: Received report from CRISTY Kitchen. Patient awake in bed, opens eyes and tracking, oriented to name, afebrile and no respiratory distress noted. Vent to trache Portex 7, SIMV 12,m TV 45o, FiO2 30%, Peep 5, Pressure support 12 saturating at 99-100%. With Right hand 20g Iv line to D5W at 50cc/hr intact, flushed and asymptomatic. On Glucerna 1.2 at 65cc/hr via GT infusing well without any sediments. With FC to urine bag draining well with yellowish urine. HOB elevated. Call light within reach. Bed rails are up and wheels are locked. Continue plan of care
[2020-07-04 20:00] VITALS: BP 113/62
[2020-07-04] MEDS: Iron Sucrose 100 MG in NS 55 ML IV SCH (20:13)
[2020-07-05] VITALS: BP 105/61
--- NOTE | 2020-07-05 | NUR ---
NURSE NOTES: Pt was given partial bed bath. Wound care done PRN. New dressing applied. Gown and linen changed. PT tolerated well. Continue to monitor the patient
[2020-07-05 04:00] VITALS: BP 126/69
[2020-07-05 04:28] LABS: BASOPHILS % (AUTO) 0.6 % (0.0-2.0); EOSINOPHILS % (AUTO) 3.6 % (0.0-3.0); HEMATOCRIT 26.3 % (37.0-47.0); HEMOGLOBIN 8.4 G/DL (12.0-16.0); LYMPHOCYTES % (AUTO) 31.9 % (20.0-45.0); MEAN CORPUSCULAR VOLUME 92 FL (80-99); MONOCYTES % (AUTO) 6.3 % (1.0-10.0); NEUTROPHILS % (AUTO) 57.6 % (45.0-75.0); PLATELET COUNT 183 K/UL (150-450); RED BLOOD COUNT 2.84 M/UL (4.20-5.40); RED CELL DISTRIBUTION WIDTH 14.2 % (11.6-14.8); WHITE BLOOD COUNT 7.1 K/UL (4.8-10.8)
[2020-07-05 04:38] LABS: BLOOD UREA NITROGEN 31 mg/dL (7-18); CALCIUM 9.1 MG/DL (8.5-10.1); CARBON DIOXIDE 24 MMOL/L (21-32); CREATININE 0.6 MG/DL (0.55-1.30)
[2020-07-05 04:53] LABS: CHLORIDE 106 MMOL/L (98-107); SODIUM 136 MMOL/L (136-145)
[2020-07-05] MEDS: NovoLOG Insulin Flexpen SUBQ SCH ×4 (06:00→23:59)
--- NOTE | 2020-07-05 06:00 | NUR ---
NURSE NOTES: Pt asleep in bed withotu respiraotyr distress noted. Continue to monitor the patient
--- NOTE | 2020-07-05 06:36 | NUR ---
NURSE NOTES: Dr Nur at bedside. Dr mentioned that he didn't feel any breast mass/lump during assessment. Per Dr Cazares, If ever Eusebia (daughter) calls, mention that for breast mass exam/check up. They can do it outpatient
--- NOTE | 2020-07-05 06:48 | Consultation ---
History of Present Illness General Chief Complaint: Fever Present Illness Allergies: Coded Allergies: No Known Allergies (Unverified , 11/22/15) Medication History Scheduled Amino Acids/Protein Hydrolys (Proteinex-18 Liquid), 30 ML GT TID, (Reported) Amiodarone Hcl* (Cordarone*), 200 MG GT EVERY 12 HOURS, (Reported) Ascorbic Acid (Ascorbic Acid), 5 ML GT BID, (Reported) Carbidopa/Levodopa 25-100 Mg* (Sinemet 25-100 Mg Tablet*), 1 TAB GT Q6HR, (Reported) Cholecalciferol (Vitamin D3) (Vitamin D3), 50 MCG GT DAILY, (Reported) Docusate Sodium* (Docusate Sodium*), 100 MG GT Q12HR, (Reported) Famotidine* (Pepcid 20mg tablet*), 20 MG GT DAILY, (Reported) Furosemide* (Lasix*), 20 MG GT DAILY, (Reported) Levothyroxine Sodium* (Synthroid*), 100 MCG GT DAILY, (Reported) Memantine Hcl* (Namenda*), 5 MG GT TWICE A DAY, (Reported) Multivits W-Min/Ferrous Gluc (Multivitamin-Mineral Liquid), 9 MG GT DAILY, (Reported) Zinc Sulfate (Zinc Sulfate*), 220 MG GT DAILY, (Reported) Scheduled PRN Acetaminophen* (Acetaminophen 325MG Tablet*), 650 MG GT Q6HR PRN for For Pain, (Reported) Hydralazine Hcl* (Hydralazine Hcl*), 10 MG GT EVERY 6 HOURS PRN for For High Blood Pressure, (Reported) Hydrocodone Bit/Acetaminophen 5-325* ([place] 5-325 Tablet*), 1 TAB ORAL DAILY PRN for For Pain, (Reported) Miscellaneous Medications Arginine/Glutamine/Calcium Hmb (Kevin Packet), 1 EACH GT, (Reported) Lactobacillus Acidophilus (Acidophilus), 1 EACH GT, (Reported) Discontinued Medications Amantadine Hcl* (Amantadine*), 100 MG ORAL TWICE A DAY, (Reported) Discontinued Reason: Pt stopped taking med Amiodarone Hcl* (Amiodarone Hcl*), 400 MG GT EVERY 12 HOURS, (Reported) Discontinued Reason: Prescription changed Ascorbic Acid* (Ascorbic Acid*), 500 MG GT TWICE A DAY, (Reported) Discontinued Reason: Prescription changed Bisacodyl (Dulcolax), 10 MG RC HS PRN for Constipation, (Reported) Discontinued Reason: Pt stopped taking med Cefepime Hcl/D5w (Cefepime-Dextrose 2 Gm/50 Ml), 2 GM IVPB Q24H, (Reported) Discontinued Reason: Pt stopped taking med Cefepime Hcl/D5w (Cefepime-Dextrose 2 Gm/50 Ml), 2 GM IVPB Q24H, (Reported) Discontinued Reason: Pt stopped taking med Cholecalciferol (Vitamin D3) (Vitamin D3*), 25 MCG GT DAILY, (Reported) Discontinued Reason: Prescription changed Clonidine Hcl* (Catapres*), 0.1 MG ORAL EVERY 6 HOURS, (Reported) Discontinued Reason: Pt stopped taking med Guaifenesin/Codeine Phos* (Robitussin Ac*), 30 ML ORAL Q6H PRN for For Cough, (Reported) Discontinued Reason: Pt stopped taking med Heparin Sodium,Porcine (Heparin Sodium), 5,000 UNITS SQ Q12HR, (Reported) Discontinued Reason: Pt stopped taking med Lisinopril* (Lisinopril*), 10 MG ORAL DAILY, (Reported) Discontinued Reason: Pt stopped taking med Mag Hydrox/Al Hydrox/Simeth (Maalox Maximum Strength Susp), 30 ML PO, (Reported) Discontinued Reason: Pt stopped taking med Metoprolol Succinate* (Metoprolol Succinate*), 25 MG ORAL BID, (Reported) Discontinued Reason: Pt stopped taking med Metoprolol Tartrate* (Metoprolol Tartrate*), 25 MG ORAL Q12HR, (Reported) Discontinued Reason: Pt stopped taking med Multivitamin with Minerals (Multivitamins with Minerals), 1 TAB ORAL DAILY, (Reported) Discontinued Reason: Prescription changed Nifedipine Xl* (Procardia Xl*), 90 MG ORAL DAILY, (Reported) Discontinued Reason: MD discontinued med Ondansetron (Zofran), 4 MG ORAL Q6H PRN for Nausea & Vomiting, (Reported) Discontinued Reason: Pt stopped taking med Pantoprazole* (Protonix*), 40 MG ORAL DAILY, (Reported) Discontinued Reason: Pt stopped taking med Pramipexole (Mirapex), 0.25 MG ORAL THREE TIMES A DAY, (Reported) Discontinued Reason: Pt stopped taking med Prazosin Hcl* (Minipress*), 1 MG PO TID, (Reported) Discontinued Reason: Pt stopped taking med Zolpidem Tartrate* (Ambien*), 5 MG ORAL BEDTIME PRN for Insomnia, (Reported) Discontinued Reason: Pt stopped taking med Patient History Healthcare decision maker Resuscitation status Advanced Directive on File Physical Exam Last 24 Hour Vital Signs Date Time Temp Pulse Resp B/P (MAP) Pulse Ox O2 Delivery O2 Flow Rate FiO2 07/05/20 04:00 97.5 60 21 126/69 (88) 100 07/05/20 04:00 30 07/05/20 04:00 Mechanical Ventilator 07/05/20 03:27 53 07/05/20 02:53 54 16 30 07/05/20 00:00 97.7 53 21 105/61 (76) 100 07/05/20 00:00 Mechanical Ventilator 07/04/20 23:35 58 07/04/20 22:52 57 18 30 07/04/20 20:00 61 07/04/20 20:00 97.7 52 21 113/62 (79) 100 07/04/20 20:00 Mechanical Ventilator 07/04/20 20:00 30 07/04/20 18:52 55 18 30 07/04/20 16:00 30 07/04/20 16:00 Mechanical Ventilator 07/04/20 16:00 97.4 60 21 127/70 (89) 100 07/04/20 16:00 59 07/04/20 15:10 55 16 30 07/04/20 12:00 Mechanical Ventilator 07/04/20 12:00 98.3 56 18 125/70 (88) 100 07/04/20 12:00 59 07/04/20 12:00 30 07/04/20 11:30 58 19 30 07/04/20 08:00 98.0 55 17 121/74 (90) 100 07/04/20 08:00 Mechanical Ventilator 07/04/20 08:00 30 07/04/20 08:00 57 07/04/20 07:50 57 19 30 Intake and Output 07/04/20 07/05/20 19:00 07:00 Intake Total 815 ml 1279 ml Output Total 950 ml 800 ml Balance -135 ml 479 ml Intake Free Water 230 ml 100 ml IV Total 464 ml Tube Feeding 585 ml 715 ml Output Urine Total 950 ml 800 ml # Bowel Movements 1 Laboratory Tests Test 07/04/20 11:48 07/04/20 16:59 07/04/20 23:20 07/05/20 03:58 POC Whole Blood Glucose 94 MG/DL (74-106) 79 MG/DL (74-106) 108 MG/DL (74-106) H White Blood Count 7.1 K/UL (4.8-10.8) Red Blood Count 2.84 M/UL (4.20-5.40) L Hemoglobin 8.4 G/DL (12.0-16.0) L Hematocrit 26.3 % (37.0-47.0) L Mean Corpuscular Volume 92 FL (80-99) Mean Corpuscular Hemoglobin 29.4 PG (27.0-31.0) Mean Corpuscular Hemoglobin Concent 31.8 G/DL (32.0-36.0) L Red Cell Distribution Width 14.2 % (11.6-14.8) Platelet Count 183 K/UL (150-450) Mean Platelet Volume 9.4 FL (6.5-10.1) Neutrophils (%) (Auto) 57.6 % (45.0-75.0) Lymphocytes (%) (Auto) 31.9 % (20.0-45.0) Monocytes (%) (Auto) 6.3 % (1.0-10.0) Eosinophils (%) (Auto) 3.6 % (0.0-3.0) H Basophils (%) (Auto) 0.6 % (0.0-2.0) Sodium Level 136 MMOL/L (136-145) Potassium Level 5.0 MMOL/L (3.5-5.1) Chloride Level 106 MMOL/L (98-107) Carbon Dioxide Level 24 MMOL/L (21-32) Blood Urea Nitrogen 31 mg/dL (7-18) H Creatinine 0.6 MG/DL (0.55-1.30) Estimat Glomerular Filtration Rate > 60 mL/min (>60) Glucose Level 124 MG/DL (74-106) H Calcium Level 9.1 MG/DL (8.5-10.1) Test 07/05/20 06:13 POC Whole Blood Glucose 128 MG/DL (74-106) H Height (Feet): 5 Height (Inches): 4.00 Weight (Pounds): 145 Medications Current Medications Medications (Trade) Dose Ordered Sig/Alex Route PRN Reason Start Time Stop Time Status Last Admin Dose Admin Acetaminophen (Tylenol) 650 mg Q6H PRN GT FOR TEMP > 100.4 07/02/20 09:45 08/01/20 09:44 Acetaminophen (Tylenol) 650 mg Q6H PRN GT Mild Pain (Pain Scale 1-3) 07/02/20 10:00 08/01/20 09:59 Acetaminophen/ Hydrocodone Bitart ([place] 5/325) 1 tab Q6H PRN GT Severe Pain (Pain Scale 7-10) 07/02/20 09:45 07/09/20 09:44 Amiodarone HCl (Cordarone) 200 mg DAILY GT 07/02/20 19:15 09/30/20 19:14 07/04/20 09:16 Ascorbic Acid (Vitamin C) 500 mg TWICE A DAY GT 07/02/20 18:00 08/01/20 17:59 07/04/20 17:00 Cefepime HCl 1 gm/ Dextrose 55 ml @ 110 mls/hr EVERY 12 HOURS IVPB 07/02/20 09:00 07/09/20 08:59 07/04/20 21:02 Dextrose 1,000 ml @ 50 mls/hr Q20H IV 07/03/20 09:30 08/02/20 09:29 07/04/20 23:31 Dextrose (Dextrose 50%) 25 ml Q30M PRN IV Hypoglycemia 07/02/20 09:45 09/30/20 09:44 Dextrose (Dextrose 50%) 50 ml Q30M PRN IV Hypoglycemia 07/02/20 09:45 09/30/20 09:44 Doxycycline Monohydrate (Doxycycline Monohydrate) 100 mg Q12H GT 07/04/20 12:00 07/11/20 11:59 07/04/20 23:23 Famotidine (Pepcid) 20 mg DAILY GT 07/03/20 09:00 10/01/20 08:59 07/04/20 09:09 Heparin Sodium (Porcine) (Heparin 5000 units/ml) 5,000 units EVERY 12 HOURS SUBQ 07/02/20 21:00 08/16/20 20:59 07/04/20 20:14 Insulin Aspart (NovoLOG) Q6HR SUBQ 07/02/20 12:00 09/30/20 11:59 07/04/20 06:26 Iron Sucrose 100 mg/Sodium Chloride 60 ml @ 240 mls/hr BEDTIME IV 07/03/20 21:00 07/07/20 21:14 07/04/20 20:13 Lansoprazole (Prevacid) 30 mg DAILY GT 07/04/20 09:00 08/03/20 08:59 07/04/20 09:09 Levothyroxine Sodium (Synthroid) 50 mcg DAILY IV 07/04/20 09:00 08/03/20 08:59 07/04/20 10:39 Multivitamins (Multivitamins W/ Minerals 15ml Liquid) 15 ml DAILY GT 07/03/20 09:00 08/02/20 08:59 07/04/20 09:09 Ondansetron HCl (Zofran) 4 mg Q6H PRN IVP Nausea & Vomiting 07/02/20 09:45 08/01/20 09:44 Zinc Sulfate (Zinc Sulfate) 220 mg DAILY GT 07/03/20 09:00 10/01/20 08:59 07/04/20 09:09 Assessment/Plan Assessment/Plan: Hematology/Oncology Consultation Requesting MD: Tony Dupree Date of Service: 07/05/2020 Reason for consultation: Anemia and breast mass HPI: The patient is a 74-year-old female from [facility], who presented with increased lethargy and weakness. She was found to have UTI, sepsis, and dehydration and admitted to telemetry for further care. Currently, calm in bed, slightly lethargic and weak.No complaint. The patient has severe Parkinson disease. Her cardiovascular history is also significant for history of hypertension and bradycardia. Hematology/Oncology was consulted for Anemia and Thrombocytopenia, hgb 12, Plt 121 PAST MEDICAL HISTORY: Includes anemia, dementia, Parkinson, urinary tract infection, and hypertension. PAST SURGICAL HISTORY: Unknown. ALLERGIES: Denies smoking. No alcohol. No intravenous drug abuse. MEDICATIONS: Include vancomycin, metoprolol, heparin, amantadine, carbidopa, pramipexole, prazosin, cefepime, albuterol, morphine, Zofran, and temazepam. FAMILY HISTORY: Noncontributory. PHYSICAL EXAMINATION: GENERAL: Slightly confused in bed, oriented x1, CARDIOVASCULAR: No murmur. LUNGS: Poor air exchange.+vent ABDOMEN: Bowel sounds distant.++peg EXTREMITIES: No cyanosis, clubbing, or edema NEUROLOGIC: Neck, weakness as well leaning forward.bedbound++ LABORATORY DATA: Show white count 4.7, platelets 140 otherwise CBC is normal. BMP shows chloride 110, creatinine 0.4. Albumin 2.9, otherwise normal. INR 1.0, PTT 27. Urinalysis shows 2+ leukocyte esterase. Imaging 07/01/20 cxr Bilateral patchy airspace opacities. Differential includes multifocal pneumonia and pulmonary edema. Assessment and Recommendations # Anemia of chronic disease (or of iron deficiency) due to underlying chronic medical issues, multifactorial --> Anemia workup has been ordered --> No evidence of hemolysis is noted, peripheral smear has been reviewed. --> Hgb goal >7. Transfuse prn. --> Iron iv has been started x 5 days --> Medications have been reviewed --> gb 9-->8.4 # Right breast calcifications --> does not have a breast mass on exam --> f/u as outpatient with mammo as needed --> do not do a us breast here # Thrombocytopenia - potential causes multifactorial, evaluate liver and viral etiologies to begin, also could be related to underlying medications, no wimproved --> Hep panel and HIV prior negative -> plt 183 # Pna --> antibiotics per Infectious Disease. # Sepsis --> antibiotics per Infectious Disease. --> ABX doxy/cefepime # Dehydration. --> PT and Dietary evaluation. # Hypertension --> Blood pressure control. # Dvt ppx heparin sq The timing of this note does not necessarily reflect the time of the patient was seen Greatly appreciate consultation! Alan Cazares MD Jul 05, 2020 06:48
--- NOTE | 2020-07-05 07:05 | NUR ---
NURSE HAND-OFF REPORT: Important Events on Shift: none Patient Status: Stable Diet: Glucerna 1.2 at 65cc/hr Pending Orders: n Pending Results/Labs:n Pending MD notification:n Latest Vital Signs: Temperature 97.5 , Pulse 60 , B/P 126 /69 , Respiratory Rate 21 , O2 SAT 100 , Mechanical Ventilator, O2 Flow Rate . Vital Sign Comment: n EKG Rhythm: Sinus Rhythm Rhythm change?: N MD Notified?: - MD Response: Latest [place] Fall Score: 70 Fall Risk: High Risk Safety Measures: Call light Within Reach, Bed Alarm Zone 2, Side Rails Side Rails x3, Bed position Low and Locked. Fall Precautions: Yellow Socks Report given to Rowdy Perez RN.
--- NOTE | 2020-07-05 07:30 | NUR ---
NURSE NOTES: Received report from JOHNYN rn, patient in bed. Resting comfortably.On vent trach with prescribed setting. In no apparent distress noted. Iv access on L forearm #22 SL, intact, patent and flush well, another site on R hand #20 running D5w @ 50cc. Gtube intact, patent and flushed well. No residual noted. With lara catheter, draining color yellow urine with 250 ml of urine output on the bag. Safety measures in bed, call light within reach. Will continue to monitor.
[2020-07-05 08:00] VITALS: BP 130/72
[2020-07-05] MEDS: Ascorbic Acid 500mg tab GT SCH ×2 (09:21→17:52)
[2020-07-05] MEDS: Cefepime HCl 1 GM in D5W 55 ML IVPB SCH ×2 (09:21→21:16)
[2020-07-05] MEDS: Multivitamins W/Minerals 15 ML UDC GT SCH (09:21)
[2020-07-05] MEDS: Zinc Sulfate 220mg GT SCH (09:21)
[2020-07-05] MEDS: Heparin 5000 units/ml inj SUBQ SCH ×2 (09:22→20:59)
[2020-07-05] MEDS: Amiodarone 200mg tab GT SCH (09:28)
--- NOTE | 2020-07-05 09:54 | Pulmonology Progress Note ---
Subjective ROS Limited/Unobtainable: Yes Interval Events: None new; trach site clean Constitutional: Reports: no symptoms HEENT: Repors: no symptoms Respiratory: Reports: no symptoms Cardiovascular: Reports: no symptoms Gastrointestinal/Abdominal: Reports: no symptoms Genitourinary: Reports: no symptoms Allergies: Coded Allergies: No Known Allergies (Unverified , 11/22/15) All Systems: reviewed and negative except above Objective Last 24 Hour Vital Signs Date Time Temp Pulse Resp B/P (MAP) Pulse Ox O2 Delivery O2 Flow Rate FiO2 07/05/20 04:00 97.5 60 21 126/69 (88) 100 07/05/20 04:00 30 07/05/20 04:00 Mechanical Ventilator 07/05/20 03:27 53 07/05/20 02:53 54 16 30 07/05/20 00:00 97.7 53 21 105/61 (76) 100 07/05/20 00:00 Mechanical Ventilator 07/04/20 23:35 58 07/04/20 22:52 57 18 30 07/04/20 20:00 61 07/04/20 20:00 97.7 52 21 113/62 (79) 100 07/04/20 20:00 Mechanical Ventilator 07/04/20 20:00 30 07/04/20 18:52 55 18 30 07/04/20 16:00 30 07/04/20 16:00 Mechanical Ventilator 07/04/20 16:00 97.4 60 21 127/70 (89) 100 07/04/20 16:00 59 07/04/20 15:10 55 16 30 07/04/20 12:00 Mechanical Ventilator 07/04/20 12:00 98.3 56 18 125/70 (88) 100 07/04/20 12:00 59 07/04/20 12:00 30 07/04/20 11:30 58 19 30 Intake and Output 07/04/20 07/05/20 19:00 07:00 Intake Total 815 ml 1544 ml Output Total 950 ml 800 ml Balance -135 ml 744 ml Intake Free Water 230 ml 100 ml IV Total 664 ml Tube Feeding 585 ml 780 ml Output Urine Total 950 ml 800 ml # Bowel Movements 1 General Appearance: no acute distress HEENT: status post trach Respiratory: chest wall non-tender, lungs clear Cardiovascular: normal peripheral pulses, normal rate Abdomen: normal bowel sounds Extremities: no cyanosis Laboratory Tests 07/04/20 11:48: POC Whole Blood Glucose 94 07/04/20 16:59: POC Whole Blood Glucose 79 07/04/20 23:20: POC Whole Blood Glucose 108H 07/05/20 03:58: White Blood Count 7.1, Red Blood Count 2.84L, Hemoglobin 8.4L, Hematocrit 26.3L, Mean Corpuscular Volume 92, Mean Corpuscular Hemoglobin 29.4, Mean Corpuscular Hemoglobin Concent 31.8L, Red Cell Distribution Width 14.2, Platelet Count 183, Mean Platelet Volume 9.4, Neutrophils (%) (Auto) 57.6, Lymphocytes (%) (Auto) 31.9, Monocytes (%) (Auto) 6.3, Eosinophils (%) (Auto) 3.6H, Basophils (%) (Auto) 0.6, Sodium Level 136, Potassium Level 5.0, Chloride Level 106, Carbon Dioxide Level 24, Blood Urea Nitrogen 31H, Creatinine 0.6, Estimat Glomerular Filtration Rate > 60, Glucose Level 124H, Calcium Level 9.1 07/05/20 06:13: POC Whole Blood Glucose 128H Current Medications Medications (Trade) Dose Ordered Sig/Alex Route PRN Reason Start Time Stop Time Status Last Admin Dose Admin Acetaminophen (Tylenol) 650 mg Q6H PRN GT FOR TEMP > 100.4 07/02/20 09:45 08/01/20 09:44 Acetaminophen (Tylenol) 650 mg Q6H PRN GT Mild Pain (Pain Scale 1-3) 07/02/20 10:00 08/01/20 09:59 Acetaminophen/ Hydrocodone Bitart ([place] 5/325) 1 tab Q6H PRN GT Severe Pain (Pain Scale 7-10) 07/02/20 09:45 07/09/20 09:44 Amiodarone HCl (Cordarone) 200 mg DAILY GT 07/02/20 19:15 09/30/20 19:14 07/05/20 09:28 Ascorbic Acid (Vitamin C) 500 mg TWICE A DAY GT 07/02/20 18:00 08/01/20 17:59 07/05/20 09:21 Cefepime HCl 1 gm/ Dextrose 55 ml @ 110 mls/hr EVERY 12 HOURS IVPB 07/02/20 09:00 07/09/20 08:59 07/05/20 09:21 Dextrose 1,000 ml @ 50 mls/hr Q20H IV 07/03/20 09:30 08/02/20 09:29 07/04/20 23:31 Dextrose (Dextrose 50%) 25 ml Q30M PRN IV Hypoglycemia 07/02/20 09:45 09/30/20 09:44 Dextrose (Dextrose 50%) 50 ml Q30M PRN IV Hypoglycemia 07/02/20 09:45 09/30/20 09:44 Doxycycline Monohydrate (Doxycycline Monohydrate) 100 mg Q12H GT 07/04/20 12:00 07/11/20 11:59 07/04/20 23:23 Famotidine (Pepcid) 20 mg DAILY GT 07/03/20 09:00 10/01/20 08:59 07/05/20 09:21 Heparin Sodium (Porcine) (Heparin 5000 units/ml) 5,000 units EVERY 12 HOURS SUBQ 07/02/20 21:00 08/16/20 20:59 07/05/20 09:22 Insulin Aspart (NovoLOG) Q6HR SUBQ 07/02/20 12:00 09/30/20 11:59 07/04/20 06:26 Iron Sucrose 100 mg/Sodium Chloride 60 ml @ 240 mls/hr BEDTIME IV 07/03/20 21:00 07/07/20 21:14 07/04/20 20:13 Lansoprazole (Prevacid) 30 mg DAILY GT 07/04/20 09:00 08/03/20 08:59 07/05/20 09:21 Levothyroxine Sodium (Synthroid) 50 mcg DAILY IV 07/04/20 09:00 08/03/20 08:59 07/05/20 09:27 Multivitamins (Multivitamins W/ Minerals 15ml Liquid) 15 ml DAILY GT 07/03/20 09:00 08/02/20 08:59 07/05/20 09:21 Ondansetron HCl (Zofran) 4 mg Q6H PRN IVP Nausea & Vomiting 07/02/20 09:45 08/01/20 09:44 Zinc Sulfate (Zinc Sulfate) 220 mg DAILY GT 07/03/20 09:00 10/01/20 08:59 07/05/20 09:21 Assessment/Plan Assessment/Plan Impression: UTI Pneumonia Sepsis Hypernatremia Dehydration Chronic respiratory failure Tracheostomy dependence Diabetes S/P percutaneous endoscopic gastrostomy (PEG) tube placement Failure to thrive (child) Dementia Paroxysmal A-fib Protein calorie malnutrition Iron deficiency Parkinson disease Anemia Pyelonephritis Plan: ABG prn Wean FIO2 IV Antibiotics IVF RISK OFFICER Medications/feeds ISS PPX Monitor labs maintain on IMV + PSV; FiO2 30% Mino Childs MD Jul 05, 2020 09:54
--- NOTE | 2020-07-05 11:36 | Infectious Diseases Prog Note ---
Assessment/Plan Assessment/Plan IMPRESSION: Sepsis improving Pneumonia. Acinetobacter UTI. anemia, chronic respiratory failure, COPD, diabetes mellitus, hypertension, hypothyroidism, pressure ulcer, hypernatremia and dehydration. VRE carrier RECOMMENDATION: We will continue with cefepime Change Doxycycline to Minocycline Will f/u cultures Subjective ROS Limited/Unobtainable: Yes Constitutional: Denies: fever Allergies: Coded Allergies: No Known Allergies (Unverified , 11/22/15) Objective Last 24 Hour Vital Signs Date Time Temp Pulse Resp B/P (MAP) Pulse Ox O2 Delivery O2 Flow Rate FiO2 07/05/20 08:00 97.5 54 13 130/72 (91) 100 07/05/20 08:00 30 07/05/20 08:00 Mechanical Ventilator 07/05/20 07:53 47 07/05/20 07:05 52 14 30 07/05/20 04:00 97.5 60 21 126/69 (88) 100 07/05/20 04:00 30 07/05/20 04:00 Mechanical Ventilator 07/05/20 03:27 53 07/05/20 02:53 54 16 30 07/05/20 00:00 97.7 53 21 105/61 (76) 100 07/05/20 00:00 Mechanical Ventilator 07/04/20 23:35 58 07/04/20 22:52 57 18 30 07/04/20 20:00 61 07/04/20 20:00 97.7 52 21 113/62 (79) 100 07/04/20 20:00 Mechanical Ventilator 07/04/20 20:00 30 07/04/20 18:52 55 18 30 07/04/20 16:00 30 07/04/20 16:00 Mechanical Ventilator 07/04/20 16:00 97.4 60 21 127/70 (89) 100 07/04/20 16:00 59 07/04/20 15:10 55 16 30 07/04/20 12:00 Mechanical Ventilator 07/04/20 12:00 98.3 56 18 125/70 (88) 100 07/04/20 12:00 59 07/04/20 12:00 30 Height (Feet): 5 Height (Inches): 4.00 Weight (Pounds): 145 HEENT: status post trach Respiratory/Chest: decreased breath sounds, other - on ventilator Cardiovascular: bradycardia Abdomen: soft, non tender, other - GT feeding Extremities: no edema Skin: ulcers Neurologic/Psychiatric: aphasia, other - opens eyes Laboratory Tests Test 07/04/20 11:48 07/04/20 16:59 07/04/20 23:20 07/05/20 03:58 POC Whole Blood Glucose 94 MG/DL (74-106) 79 MG/DL (74-106) 108 MG/DL (74-106) H White Blood Count 7.1 K/UL (4.8-10.8) Red Blood Count 2.84 M/UL (4.20-5.40) L Hemoglobin 8.4 G/DL (12.0-16.0) L Hematocrit 26.3 % (37.0-47.0) L Mean Corpuscular Volume 92 FL (80-99) Mean Corpuscular Hemoglobin 29.4 PG (27.0-31.0) Mean Corpuscular Hemoglobin Concent 31.8 G/DL (32.0-36.0) L Red Cell Distribution Width 14.2 % (11.6-14.8) Platelet Count 183 K/UL (150-450) Mean Platelet Volume 9.4 FL (6.5-10.1) Neutrophils (%) (Auto) 57.6 % (45.0-75.0) Lymphocytes (%) (Auto) 31.9 % (20.0-45.0) Monocytes (%) (Auto) 6.3 % (1.0-10.0) Eosinophils (%) (Auto) 3.6 % (0.0-3.0) H Basophils (%) (Auto) 0.6 % (0.0-2.0) Sodium Level 136 MMOL/L (136-145) Potassium Level 5.0 MMOL/L (3.5-5.1) Chloride Level 106 MMOL/L (98-107) Carbon Dioxide Level 24 MMOL/L (21-32) Blood Urea Nitrogen 31 mg/dL (7-18) H Creatinine 0.6 MG/DL (0.55-1.30) Estimat Glomerular Filtration Rate > 60 mL/min (>60) Glucose Level 124 MG/DL (74-106) H Calcium Level 9.1 MG/DL (8.5-10.1) Test 07/05/20 06:13 POC Whole Blood Glucose 128 MG/DL (74-106) H Current Medications Medications (Trade) Dose Ordered Sig/Alex Route PRN Reason Start Time Stop Time Status Last Admin Dose Admin Acetaminophen (Tylenol) 650 mg Q6H PRN GT FOR TEMP > 100.4 07/02/20 09:45 08/01/20 09:44 Acetaminophen (Tylenol) 650 mg Q6H PRN GT Mild Pain (Pain Scale 1-3) 07/02/20 10:00 08/01/20 09:59 Acetaminophen/ Hydrocodone Bitart ([place] 5/325) 1 tab Q6H PRN GT Severe Pain (Pain Scale 7-10) 07/02/20 09:45 07/09/20 09:44 Amiodarone HCl (Cordarone) 200 mg DAILY GT 07/02/20 19:15 09/30/20 19:14 07/05/20 09:28 Ascorbic Acid (Vitamin C) 500 mg TWICE A DAY GT 07/02/20 18:00 08/01/20 17:59 07/05/20 09:21 Cefepime HCl 1 gm/ Dextrose 55 ml @ 110 mls/hr EVERY 12 HOURS IVPB 07/02/20 09:00 07/09/20 08:59 07/05/20 09:21 Dextrose 1,000 ml @ 50 mls/hr Q20H IV 07/03/20 09:30 08/02/20 09:29 07/04/20 23:31 Dextrose (Dextrose 50%) 25 ml Q30M PRN IV Hypoglycemia 07/02/20 09:45 09/30/20 09:44 Dextrose (Dextrose 50%) 50 ml Q30M PRN IV Hypoglycemia 07/02/20 09:45 09/30/20 09:44 Doxycycline Monohydrate (Doxycycline Monohydrate) 100 mg Q12H GT 07/04/20 12:00 07/11/20 11:59 07/04/20 23:23 Famotidine (Pepcid) 20 mg DAILY GT 07/03/20 09:00 10/01/20 08:59 07/05/20 09:21 Heparin Sodium (Porcine) (Heparin 5000 units/ml) 5,000 units EVERY 12 HOURS SUBQ 07/02/20 21:00 08/16/20 20:59 07/05/20 09:22 Insulin Aspart (NovoLOG) Q6HR SUBQ 07/02/20 12:00 09/30/20 11:59 07/04/20 06:26 Iron Sucrose 100 mg/Sodium Chloride 60 ml @ 240 mls/hr BEDTIME IV 07/03/20 21:00 07/07/20 21:14 07/04/20 20:13 Lansoprazole (Prevacid) 30 mg DAILY GT 07/04/20 09:00 08/03/20 08:59 07/05/20 09:21 Levothyroxine Sodium (Synthroid) 50 mcg DAILY IV 07/04/20 09:00 08/03/20 08:59 07/05/20 09:27 Multivitamins (Multivitamins W/ Minerals 15ml Liquid) 15 ml DAILY GT 07/03/20 09:00 08/02/20 08:59 07/05/20 09:21 Ondansetron HCl (Zofran) 4 mg Q6H PRN IVP Nausea & Vomiting 07/02/20 09:45 08/01/20 09:44 Zinc Sulfate (Zinc Sulfate) 220 mg DAILY GT 07/03/20 09:00 10/01/20 08:59 07/05/20 09:21 Mahesh Nicole MD Jul 05, 2020 11:36
--- NOTE | 2020-07-05 11:51 | General Progress Note ---
Subjective ROS Limited/Unobtainable: No Allergies: Coded Allergies: No Known Allergies (Unverified , 11/22/15) Objective Last 24 Hour Vital Signs Date Time Temp Pulse Resp B/P (MAP) Pulse Ox O2 Delivery O2 Flow Rate FiO2 07/05/20 08:00 97.5 54 13 130/72 (91) 100 07/05/20 08:00 30 07/05/20 08:00 Mechanical Ventilator 07/05/20 07:53 47 07/05/20 07:05 52 14 30 07/05/20 04:00 97.5 60 21 126/69 (88) 100 07/05/20 04:00 30 07/05/20 04:00 Mechanical Ventilator 07/05/20 03:27 53 07/05/20 02:53 54 16 30 07/05/20 00:00 97.7 53 21 105/61 (76) 100 07/05/20 00:00 Mechanical Ventilator 07/04/20 23:35 58 07/04/20 22:52 57 18 30 07/04/20 20:00 61 07/04/20 20:00 97.7 52 21 113/62 (79) 100 07/04/20 20:00 Mechanical Ventilator 07/04/20 20:00 30 07/04/20 18:52 55 18 30 07/04/20 16:00 30 07/04/20 16:00 Mechanical Ventilator 07/04/20 16:00 97.4 60 21 127/70 (89) 100 07/04/20 16:00 59 07/04/20 15:10 55 16 30 07/04/20 12:00 Mechanical Ventilator 07/04/20 12:00 98.3 56 18 125/70 (88) 100 07/04/20 12:00 59 07/04/20 12:00 30 Intake and Output 07/04/20 07/05/20 19:00 07:00 Intake Total 815 ml 1544 ml Output Total 950 ml 800 ml Balance -135 ml 744 ml Intake Free Water 230 ml 100 ml IV Total 664 ml Tube Feeding 585 ml 780 ml Output Urine Total 950 ml 800 ml # Bowel Movements 1 Laboratory Tests 07/04/20 16:59: POC Whole Blood Glucose 79 07/04/20 23:20: POC Whole Blood Glucose 108H 07/05/20 03:58: White Blood Count 7.1, Red Blood Count 2.84L, Hemoglobin 8.4L, Hematocrit 26.3L, Mean Corpuscular Volume 92, Mean Corpuscular Hemoglobin 29.4, Mean Corpuscular Hemoglobin Concent 31.8L, Red Cell Distribution Width 14.2, Platelet Count 183, Mean Platelet Volume 9.4, Neutrophils (%) (Auto) 57.6, Lymphocytes (%) (Auto) 31.9, Monocytes (%) (Auto) 6.3, Eosinophils (%) (Auto) 3.6H, Basophils (%) (Auto) 0.6, Sodium Level 136, Potassium Level 5.0, Chloride Level 106, Carbon Dioxide Level 24, Blood Urea Nitrogen 31H, Creatinine 0.6, Estimat Glomerular Filtration Rate > 60, Glucose Level 124H, Calcium Level 9.1 07/05/20 06:13: POC Whole Blood Glucose 128H Height (Feet): 5 Height (Inches): 4.00 Weight (Pounds): 145 General Appearance: no apparent distress EENT: normal ENT inspection Neck: supple Cardiovascular: normal rate Respiratory/Chest: decreased breath sounds Abdomen: normal bowel sounds, non tender, soft Extremities: non-tender Assessment/Plan Status: unchanged Assessment/Plan: 1. Respiratory failure, on chronic vent. 2. Dysphagia with G-tube. 3. COPD. 4. Atrial fibrillation. 5. Schizophrenia. 6. Parkinson disease. 7. Diabetes. 8. Quadriplegia. 9. Gastritis. 10. Iron def anemia GTF monitor for residuals IV iron fu stool ob CBC in Gilbert Hooks MD Jul 05, 2020 11:51
[2020-07-05 12:00] VITALS: BP 140/74
--- NOTE | 2020-07-05 12:29 | NUR ---
CASE MANAGEMENT: REVIEW SI: SEPSIS . SEVERE DEHYDRATION . T 97.5 HR 52 RR 14 BP 130/72 SAT 100% MECH VENT FIO2 30 H/H 8.4/26.3 GLUCOSE 128 IS: MINOCIN PO Q12HR DOXYCYCLINE GT Q12HR VENOFER IV QHS D5W IVF @ 50ML/HR CEFEPIME IV Q12HR STEP DOWN UNIT STATUS DCP: PATIENT IS FROM [facility]
--- NOTE | 2020-07-05 13:34 | Nephrology Progress Note ---
Assessment/Plan Problem List: (1) Hypernatremia (2) Dehydration (3) Chronic respiratory failure (4) Tracheostomy dependence (5) Hypothyroidism (6) Hypoalbuminemia Assessment Hypernatremia, dehydration, Azotemia, dehydration, Pneumonia, sepsis, pyelonephritis Chronic trach and vent PEG Anemia Parkinson's Diabetes mellitus History of atrial fibrillation Plan July 05: Lab reviewed. Electrolyte abnormalities addressed. Continue per consultants. July 04: Labs reviewed. Electrolyte abnormalities noted and addressed. Continue per consultants. D5W 50 cc an hour Change Synthroid to IV Continue same medication Recheck labs iron panel thyroid panel , results noted 2D echocardiogram to evaluate LV function, results pending Albumin bolus Continue per consultants Urine studies Subjective ROS Limited/Unobtainable: Yes Objective Objective Last 24 Hour Vital Signs Date Time Temp Pulse Resp B/P (MAP) Pulse Ox O2 Delivery O2 Flow Rate FiO2 07/05/20 12:00 97.9 62 20 140/74 (96) 100 07/05/20 12:00 30 07/05/20 12:00 Mechanical Ventilator 07/05/20 11:00 60 17 30 07/05/20 08:00 97.5 54 13 130/72 (91) 100 07/05/20 08:00 30 07/05/20 08:00 Mechanical Ventilator 07/05/20 07:53 47 07/05/20 07:05 52 14 30 07/05/20 04:00 97.5 60 21 126/69 (88) 100 07/05/20 04:00 30 07/05/20 04:00 Mechanical Ventilator 07/05/20 03:27 53 07/05/20 02:53 54 16 30 07/05/20 00:00 97.7 53 21 105/61 (76) 100 07/05/20 00:00 Mechanical Ventilator 07/04/20 23:35 58 07/04/20 22:52 57 18 30 07/04/20 20:00 61 07/04/20 20:00 97.7 52 21 113/62 (79) 100 07/04/20 20:00 Mechanical Ventilator 07/04/20 20:00 30 07/04/20 18:52 55 18 30 07/04/20 16:00 30 07/04/20 16:00 Mechanical Ventilator 07/04/20 16:00 97.4 60 21 127/70 (89) 100 07/04/20 16:00 59 07/04/20 15:10 55 16 30 Intake and Output 07/04/20 07/05/20 19:00 07:00 Intake Total 815 ml 1544 ml Output Total 950 ml 800 ml Balance -135 ml 744 ml Intake Free Water 230 ml 100 ml IV Total 664 ml Tube Feeding 585 ml 780 ml Output Urine Total 950 ml 800 ml # Bowel Movements 1 Laboratory Tests 07/04/20 16:59: POC Whole Blood Glucose 79 07/04/20 23:20: POC Whole Blood Glucose 108H 07/05/20 03:58: White Blood Count 7.1, Red Blood Count 2.84L, Hemoglobin 8.4L, Hematocrit 26.3L, Mean Corpuscular Volume 92, Mean Corpuscular Hemoglobin 29.4, Mean Corpuscular Hemoglobin Concent 31.8L, Red Cell Distribution Width 14.2, Platelet Count 183, Mean Platelet Volume 9.4, Neutrophils (%) (Auto) 57.6, Lymphocytes (%) (Auto) 31.9, Monocytes (%) (Auto) 6.3, Eosinophils (%) (Auto) 3.6H, Basophils (%) (Auto) 0.6, Sodium Level 136, Potassium Level 5.0, Chloride Level 106, Carbon Dioxide Level 24, Blood Urea Nitrogen 31H, Creatinine 0.6, Estimat Glomerular Filtration Rate > 60, Glucose Level 124H, Calcium Level 9.1 07/05/20 06:13: POC Whole Blood Glucose 128H Height (Feet): 5 Height (Inches): 4.00 Weight (Pounds): 145 General Appearance: no apparent distress EENT: other - Trach to vent Cardiovascular: tachycardia Respiratory/Chest: decreased breath sounds Abdomen: distended Dante Chau MD Jul 05, 2020 13:34
--- NOTE | 2020-07-05 13:43 | General Progress Note ---
Subjective Constitutional: Reports: weakness Allergies: Coded Allergies: No Known Allergies (Unverified , 11/22/15) All Systems: reviewed and negative except above Subjective trach vent altered calm Objective Last 24 Hour Vital Signs Date Time Temp Pulse Resp B/P (MAP) Pulse Ox O2 Delivery O2 Flow Rate FiO2 07/05/20 12:00 97.9 62 20 140/74 (96) 100 07/05/20 12:00 30 07/05/20 12:00 Mechanical Ventilator 07/05/20 11:00 60 17 30 07/05/20 08:00 97.5 54 13 130/72 (91) 100 07/05/20 08:00 30 07/05/20 08:00 Mechanical Ventilator 07/05/20 07:53 47 07/05/20 07:05 52 14 30 07/05/20 04:00 97.5 60 21 126/69 (88) 100 07/05/20 04:00 30 07/05/20 04:00 Mechanical Ventilator 07/05/20 03:27 53 07/05/20 02:53 54 16 30 07/05/20 00:00 97.7 53 21 105/61 (76) 100 07/05/20 00:00 Mechanical Ventilator 07/04/20 23:35 58 07/04/20 22:52 57 18 30 07/04/20 20:00 61 07/04/20 20:00 97.7 52 21 113/62 (79) 100 07/04/20 20:00 Mechanical Ventilator 07/04/20 20:00 30 07/04/20 18:52 55 18 30 07/04/20 16:00 30 07/04/20 16:00 Mechanical Ventilator 07/04/20 16:00 97.4 60 21 127/70 (89) 100 07/04/20 16:00 59 07/04/20 15:10 55 16 30 Intake and Output 07/04/20 07/05/20 19:00 07:00 Intake Total 815 ml 1544 ml Output Total 950 ml 800 ml Balance -135 ml 744 ml Intake Free Water 230 ml 100 ml IV Total 664 ml Tube Feeding 585 ml 780 ml Output Urine Total 950 ml 800 ml # Bowel Movements 1 Laboratory Tests 07/04/20 16:59: POC Whole Blood Glucose 79 07/04/20 23:20: POC Whole Blood Glucose 108H 07/05/20 03:58: White Blood Count 7.1, Red Blood Count 2.84L, Hemoglobin 8.4L, Hematocrit 26.3L, Mean Corpuscular Volume 92, Mean Corpuscular Hemoglobin 29.4, Mean Corpuscular Hemoglobin Concent 31.8L, Red Cell Distribution Width 14.2, Platelet Count 183, Mean Platelet Volume 9.4, Neutrophils (%) (Auto) 57.6, Lymphocytes (%) (Auto) 31.9, Monocytes (%) (Auto) 6.3, Eosinophils (%) (Auto) 3.6H, Basophils (%) (Auto) 0.6, Sodium Level 136, Potassium Level 5.0, Chloride Level 106, Carbon Dioxide Level 24, Blood Urea Nitrogen 31H, Creatinine 0.6, Estimat Glomerular Filtration Rate > 60, Glucose Level 124H, Calcium Level 9.1 07/05/20 06:13: POC Whole Blood Glucose 128H Height (Feet): 5 Height (Inches): 4.00 Weight (Pounds): 145 General Appearance: lethargic EENT: normal ENT inspection Neck: normal alignment Cardiovascular: normal peripheral pulses, normal rate, regular rhythm Respiratory/Chest: chest wall non-tender, lungs clear, normal breath sounds Abdomen: normal bowel sounds, non tender, soft Extremities: normal inspection Edema: no edema noted Arm (L), no edema noted Arm (R), no edema noted Leg (L), no edema noted Leg (R), no edema noted Pedal (L), no edema noted Pedal (R), no edema noted Generalized Neurologic: motor weakness Skin: normal pigmentation, warm/dry Assessment/Plan Problem List: (1) Pneumonia ICD Codes: J18.9 - Pneumonia, unspecified organism SNOMED: 007786079 (2) Tracheostomy dependence ICD Codes: Z93.0 - Tracheostomy status SNOMED: 242846383 (3) Chronic respiratory failure ICD Codes: J96.10 - Chronic respiratory failure, unspecified whether with hypoxia or hypercapnia SNOMED: 65139765 (4) Sepsis ICD Codes: A41.9 - Sepsis, unspecified organism SNOMED: 91292402 (5) Anemia ICD Codes: D64.9 - Anemia, unspecified SNOMED: 491407164 Status: unchanged Assessment/Plan: vent abx cbc bmp am dc plan when clear Tony Dupree DO Jul 05, 2020 13:43
--- NOTE | 2020-07-05 14:19 | Surgery Progress Note ---
Surgery Progress Note Subjective Additional Comments stable labs reviewed comfortable no n/v Objective Last 24 Hour Vital Signs Date Time Temp Pulse Resp B/P (MAP) Pulse Ox O2 Delivery O2 Flow Rate FiO2 07/05/20 12:00 97.9 62 20 140/74 (96) 100 07/05/20 12:00 56 07/05/20 12:00 30 07/05/20 12:00 Mechanical Ventilator 07/05/20 11:00 60 17 30 07/05/20 08:00 97.5 54 13 130/72 (91) 100 07/05/20 08:00 30 07/05/20 08:00 Mechanical Ventilator 07/05/20 07:53 47 07/05/20 07:05 52 14 30 07/05/20 04:00 97.5 60 21 126/69 (88) 100 07/05/20 04:00 30 07/05/20 04:00 Mechanical Ventilator 07/05/20 03:27 53 07/05/20 02:53 54 16 30 07/05/20 00:00 97.7 53 21 105/61 (76) 100 07/05/20 00:00 Mechanical Ventilator 07/04/20 23:35 58 07/04/20 22:52 57 18 30 07/04/20 20:00 61 07/04/20 20:00 97.7 52 21 113/62 (79) 100 07/04/20 20:00 Mechanical Ventilator 07/04/20 20:00 30 07/04/20 18:52 55 18 30 07/04/20 16:00 30 07/04/20 16:00 Mechanical Ventilator 07/04/20 16:00 97.4 60 21 127/70 (89) 100 07/04/20 16:00 59 07/04/20 15:10 55 16 30 I&O Intake and Output 07/04/20 07/05/20 19:00 07:00 Intake Total 815 ml 1544 ml Output Total 950 ml 800 ml Balance -135 ml 744 ml Intake Free Water 230 ml 100 ml IV Total 664 ml Tube Feeding 585 ml 780 ml Output Urine Total 950 ml 800 ml # Bowel Movements 1 Dressing: saturated Cardiovascular: RSR Respiratory: decreased breath sounds Abdomen: non-tender, present bowel sounds Extremities: no tenderness, no cyanosis Laboratory Tests Test 07/04/20 16:59 07/04/20 23:20 07/05/20 03:58 07/05/20 06:13 POC Whole Blood Glucose 79 MG/DL (74-106) 108 MG/DL (74-106) H 128 MG/DL (74-106) H White Blood Count 7.1 K/UL (4.8-10.8) Red Blood Count 2.84 M/UL (4.20-5.40) L Hemoglobin 8.4 G/DL (12.0-16.0) L Hematocrit 26.3 % (37.0-47.0) L Mean Corpuscular Volume 92 FL (80-99) Mean Corpuscular Hemoglobin 29.4 PG (27.0-31.0) Mean Corpuscular Hemoglobin Concent 31.8 G/DL (32.0-36.0) L Red Cell Distribution Width 14.2 % (11.6-14.8) Platelet Count 183 K/UL (150-450) Mean Platelet Volume 9.4 FL (6.5-10.1) Neutrophils (%) (Auto) 57.6 % (45.0-75.0) Lymphocytes (%) (Auto) 31.9 % (20.0-45.0) Monocytes (%) (Auto) 6.3 % (1.0-10.0) Eosinophils (%) (Auto) 3.6 % (0.0-3.0) H Basophils (%) (Auto) 0.6 % (0.0-2.0) Sodium Level 136 MMOL/L (136-145) Potassium Level 5.0 MMOL/L (3.5-5.1) Chloride Level 106 MMOL/L (98-107) Carbon Dioxide Level 24 MMOL/L (21-32) Blood Urea Nitrogen 31 mg/dL (7-18) H Creatinine 0.6 MG/DL (0.55-1.30) Estimat Glomerular Filtration Rate > 60 mL/min (>60) Glucose Level 124 MG/DL (74-106) H Calcium Level 9.1 MG/DL (8.5-10.1) Plan Problems: (1) Dehydration (2) Hypernatremia (3) Pneumonia (4) Protein calorie malnutrition Assessment & Plan: bmi 25 alb 2.1 wounds with granulation tissue cont tf as tolerated DAILY ESTIMATED NEEDS: Needs based on Advanced wound, critical care/ 58kg abw 25-30 kcals/kg 9723-8953 total kcals 1.5-2.0 g protein/kg 87-116 g total protein 25-30 mL/kg 9079-9001 total fluid mLs NUTRITION DIAGNOSIS: * Increased kcal/prot needs R/T wound healing as evidenced by pt * Swallowing difficulty R/T dysphagia, h/o Parkinson's disease as evidenced by pt on pureed texture diet [employer], 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 CURRENT TF:Glucerna 1.2 @ 65ml/hr x 20 hrs ENTERAL NUTRITION RECOMMENDATIONS: Glucerna 1.2 @ 70ml/hr x 20 hrs to provide 1400ml, 1680kcal, 84g prot, 1127ml free water * Increase goal rate to 70ml/hr x 20 hrs to better meet est needs * Add KEVIN BID via PEG for wound healing (+ additional 5g prot, TF + Kevin BID will provide 100% est prot needs) * HOB over 30 degrees/ water flush per MD ADDITIONAL RECOMMENDATIONS: * Calibrated bedscale wt for accurate CBW * Wound healing: continue Vit C and ZnSO4 add Kevin BID via PEG * Monitor lytes, replete as needed ( low phos 1.9) * Monitor BGs w/ TF- cont carb controlled diet (5) Failure to thrive (child) (6) Tracheostomy dependence Assessment & Plan: trach stable dressings changed no acute intervention (7) Chronic respiratory failure (8) Hypothyroidism (9) Pyelonephritis (10) Sacral decubitus ulcer Assessment & Plan: Pt presented on admission with full thickness Stage 4 sacral pressure injury. Base of wound has tissue viable. (L)3cm x (W)3.5cm x 3cm deep. Scattered areas of maceration along borders. Mixed pink epithelial and hyperpigmentation periwound. Additionally two small wounds noted to R and L buttocks within area of hyperpigmentation. R and L heels are both soft but easily blanchable.No other skin concerns noted. left ear with abrasion Tx.Plan: Cleanse sacral wound with Saline. Apply Therahoney gauze packing. Apply Moisture Barrier paste periwound. Cover with Optifoam drsg. Change every 1 days and prn. Apply Cavilon Skin Barrier to both heels. Cover each heel with Optifoam drsg. Change every 7 days and prn. Apply therahoney to left ear and cover with foam dressings. change q3 days APM/YOLY Mattress overlay. Reposition at least every 2hours or as tolerated. Off-load heels with pillow. (11) Sepsis (12) UTI (urinary tract infection) (13) Anemia (14) Dysphagia (15) Hypoalbuminemia (16) Iron deficiency (17) At high risk for aspiration (18) Parkinson disease (19) Dementia (20) Elevated CEA (21) Paroxysmal A-fib (22) Pancytopenia Holland Petty Jul 05, 2020 14:19
--- NOTE | 2020-07-05 15:00 | NUR ---
NURSE NOTES: Pt. remain stable. No sign of distress. Turned and repositioned.
[2020-07-05 16:00] VITALS: BP 133/69
--- NOTE | 2020-07-05 16:35 | Cardiology Report ---
APPROVED REPORT EXAM: Two-dimensional and M-mode echocardiogram with Doppler and color Doppler. INDICATION Congestive Heart Failure M-Mode DIMENSIONS IVSd0.9 (0.7-1.1cm)Left Atrium (MM)3.4 (1.6-4.0cm) LVDd4.4 (3.5-5.6cm)Aortic Root3.2 (2.0-3.7cm) PWd0.9 (0.7-1.1cm)Aortic Cusp Exc.1.9 (1.5-2.0cm) IVSs1.4 cmEPSS0.5 (>1.0cm) LVDs2.8 (2.5-4.0cm) PWs1.3 cm <Conclusion> Technically difficult study due to poor acoustical windows. Normal left ventricular chamber size, systolic function and wall motion to extent visualized. Left ventricular ejection fraction estimated to be 60-65 %. No evidence of left ventricular hypertrophy. No evidence of pericardial effusion. All other cardiac chamber sizes are within normal limits. Focal aortic valve sclerosis with adequate cusp excursion. Thickened mitral valve leaflets with normal excursion. Mitral annulus and aortic root calcification. Pulmonic valve not well visualized. Normal tricuspid valve structure. Subcostal views are not obtainable due to GI-tube IVC not visualized A color flow and spectral Doppler study was performed and revealed: Mild aortic regurgitation. Mitral diastolic velocities of E & A equalization & Tissue Doppler Imaging suggest mildly reduced left ventricular relaxation c/w impaired relaxation diastolic dysfunction. Mild mitral regurgitation. Mild tricuspid regurgitation. Tricuspid systolic velocities suggests peak right ventricular systolic pressure of 287+ RAP mmHg however IVC not visualized therefore RA pressure cannot be estimated Moderate pulmonic regurgitation present.
--- NOTE | 2020-07-05 17:00 | NUR ---
NURSE NOTES: Stool collected and dropped at the lab for stool OB
--- NOTE | 2020-07-05 17:11 | Cardiology Report ---
APPROVED REPORT EKG Measurement Heart [id number] <Conclusion> Normal sinus rhythm Normal ECG
--- NOTE | 2020-07-05 19:10 | NUR ---
NURSE NOTES: Received report from CRISTY Dorantes. Patient awake in bed, opens eyes and tracking, oriented to name, afebrile and no respiratory distress noted. Vent to trache Portex 7, SIMV 12,m TV 45o, FiO2 30%, Peep 5, Pressure support 12 saturating at 99-100%. With Left FA 22g SL and Right hand 20g IV line to D5W at 50cc/hr intact, flushed and asymptomatic. On Glucerna 1.2 at 65cc/hr via GT infusing well without any sediments. With FC to urine bag draining well with yellowish urine. HOB elevated. Call light within reach. Bed rails are up and wheels are locked. Continue plan of care
--- NOTE | 2020-07-05 19:16 | NUR ---
NURSE HAND-OFF REPORT: Important Events on Shift: Stool collected for Stool OB. Dropped at the lab Patient Status: Stable Diet: Glucerna 1.2 @65 ml x20hrs Pending Orders: Pending Results/Labs: Pending MD notification: Latest Vital Signs: Temperature 98.2 , Pulse 63 , B/P 133 /69 , Respiratory Rate 23 , O2 SAT 100 , Mechanical Ventilator, O2 Flow Rate . Vital Sign Comment:Stable EKG Rhythm: Sinus Rhythm Rhythm change?: N MD Notified?: - MD Response: Latest [place] Fall Score: 70 Fall Risk: High Risk Safety Measures: Call light Within Reach, Bed Alarm Zone 2, Side Rails Side Rails x3, Bed position Low and Locked. Fall Precautions: Yellow Socks Report given to JOHNNY MUNIZ.
[2020-07-05 20:00] VITALS: BP 136/76
[2020-07-05] MEDS: Minocycline HCl 50mg cap ORAL SCH (20:52)
[2020-07-05] MEDS: Iron Sucrose 100 MG in NS 55 ML IV SCH (20:52)
[2020-07-06] VITALS: BP 129/75
[2020-07-06 03:54] LABS: BASOPHILS % (AUTO) 0.4 % (0.0-2.0); EOSINOPHILS % (AUTO) 1.3 % (0.0-3.0); HEMATOCRIT 26.5 % (37.0-47.0); HEMOGLOBIN 8.6 G/DL (12.0-16.0); LYMPHOCYTES % (AUTO) 20.6 % (20.0-45.0); MEAN CORPUSCULAR VOLUME 90 FL (80-99); MONOCYTES % (AUTO) 5.9 % (1.0-10.0); NEUTROPHILS % (AUTO) 71.8 % (45.0-75.0); PLATELET COUNT 203 K/UL (150-450); RED BLOOD COUNT 2.94 M/UL (4.20-5.40); RED CELL DISTRIBUTION WIDTH 14.3 % (11.6-14.8); WHITE BLOOD COUNT 9.2 K/UL (4.8-10.8)
[2020-07-06 04:00] VITALS: BP 131/70
[2020-07-06 04:45] LABS: ALANINE AMINOTRANSFERASE 25 U/L (12-78); ALBUMIN 2.1 G/DL (3.4-5.0); ALBUMIN/GLOBULIN RATIO 0.4 (1.0-2.7); ALKALINE PHOSPHATASE 157 U/L (46-116); ANION GAP 10 mmol/L (5-15); ASPARTATE AMINO TRANSFERASE 23 U/L (15-37); BILIRUBIN,TOTAL 0.3 MG/DL (0.2-1.0); BLOOD UREA NITROGEN 27 mg/dL (7-18); CARBON DIOXIDE 23 MMOL/L (21-32); CHLORIDE 103 MMOL/L (98-107); CREATININE 0.6 MG/DL (0.55-1.30); PHOSPHORUS 2.2 MG/DL (2.5-4.9); POTASSIUM 4.7 MMOL/L (3.5-5.1); SODIUM 136 MMOL/L (136-145)
[2020-07-06] MEDS: NovoLOG Insulin Flexpen SUBQ SCH ×4 (05:30→23:12)
--- NOTE | 2020-07-06 06:00 | NUR ---
NURSE NOTES: Pt awake, opens eyes without any respiratory discomforts. Pt tolerating Gt feeding withotu any residuals. Flushing of GT done. Continue to monitor the patient.
--- NOTE | 2020-07-06 06:43 | Hematology/Onc Progress Note ---
Assessment/Plan Assessment/Plan Assessment and Recommendations # Anemia of chronic disease (or of iron deficiency) due to underlying chronic medical issues, multifactorial --> Anemia workup has been ordered --> No evidence of hemolysis is noted, peripheral smear has been reviewed. --> Hgb goal >7. Transfuse prn. --> Iron iv has been started x 5 days --> Medications have been reviewed --> gb 9-->8.4->8.6 # Right breast calcifications --> does not have a breast mass on exam --> f/u as outpatient with mammo as needed --> do not do a us breast here # Thrombocytopenia - potential causes multifactorial, evaluate liver and viral etiologies to begin, also could be related to underlying medications, no wimprov ed --> Hep panel and HIV prior negative -> plt 183->203 # Pna --> antibiotics per Infectious Disease. # Sepsis --> antibiotics per Infectious Disease. --> ABX doxy/cefepime # Dehydration. --> PT and Dietary evaluation. # Hypertension --> Blood pressure control. # Dvt ppx heparin sq The timing of this note does not necessarily reflect the time of the patient was seen Greatly appreciate consultation! Subjective Constitutional: Denies: no symptoms, chills, fever, malaise, weakness, other HEENT: Denies: no symptoms, eye pain, blurred vision, tearing, double vision, ear pain, ear discharge, nose pain, nose congestion, throat pain, throat swelling, mouth pain, mouth swelling, other Cardiovascular: Denies: no symptoms, chest pain, edema, irregular heart rate, lightheadedness, palpitations, syncope, other Respiratory: Denies: no symptoms, cough, shortness of breath, SOB with excertion, SOB at rest, sputum, wheezing, other Genitourinary: Denies: no symptoms, burning, discharge, frequency, flank pain, hematuria, incontinence, pain, urgency, other Neurologic/Psychiatric: Denies: no symptoms, anxiety, depressed, emotional problems, headache, numbness, paresthesia, pre-existing deficit, seizure, tingling, tremors, weakness, other Endocrine: Denies: no symptoms, excessive sweating, flushing, intolerance to cold, intolerance to heat, increased hunger, increased thirst, increased urine, unexplained weight gain, unexplained weight loss, other Hematologic/Lymphatic: Denies: no symptoms, anemia, easy bleeding, easy bruising, adenopathy, other Allergies: Coded Allergies: No Known Allergies (Unverified , 11/22/15) Subjective 07/06 no events, is comfortable, dw daughter again last night, no breast mass palpated Objective Objective Current Medications Medications (Trade) Dose Ordered Sig/Alex Route PRN Reason Start Time Stop Time Status Last Admin Dose Admin Acetaminophen (Tylenol) 650 mg Q6H PRN GT FOR TEMP > 100.4 07/02/20 09:45 08/01/20 09:44 Acetaminophen (Tylenol) 650 mg Q6H PRN GT Mild Pain (Pain Scale 1-3) 07/02/20 10:00 08/01/20 09:59 Acetaminophen/ Hydrocodone Bitart ([place] 5/325) 1 tab Q6H PRN GT Severe Pain (Pain Scale 7-10) 07/02/20 09:45 07/09/20 09:44 Amiodarone HCl (Cordarone) 200 mg DAILY GT 07/02/20 19:15 09/30/20 19:14 07/05/20 09:28 Ascorbic Acid (Vitamin C) 500 mg TWICE A DAY GT 07/02/20 18:00 08/01/20 17:59 07/05/20 17:52 Cefepime HCl 1 gm/ Dextrose 55 ml @ 110 mls/hr EVERY 12 HOURS IVPB 07/02/20 09:00 07/09/20 08:59 07/05/20 21:16 Dextrose (Dextrose 50%) 25 ml Q30M PRN IV Hypoglycemia 07/02/20 09:45 09/30/20 09:44 Dextrose (Dextrose 50%) 50 ml Q30M PRN IV Hypoglycemia 07/02/20 09:45 09/30/20 09:44 Heparin Sodium (Porcine) (Heparin 5000 units/ml) 5,000 units EVERY 12 HOURS SUBQ 07/02/20 21:00 08/16/20 20:59 07/05/20 20:59 Insulin Aspart (NovoLOG) Q6HR SUBQ 07/02/20 12:00 09/30/20 11:59 07/04/20 06:26 Iron Sucrose 100 mg/Sodium Chloride 60 ml @ 240 mls/hr BEDTIME IV 07/03/20 21:00 07/07/20 21:14 07/05/20 20:52 Lansoprazole (Prevacid) 30 mg BID GT 07/05/20 18:00 08/03/20 08:59 07/05/20 17:52 Levothyroxine Sodium (Synthroid) 50 mcg DAILY IV 07/04/20 09:00 08/03/20 08:59 07/05/20 09:27 Minocycline HCl (Minocin) 100 mg Q12HR ORAL 07/05/20 21:00 07/12/20 20:59 07/05/20 20:52 Multivitamins (Multivitamins W/ Minerals 15ml Liquid) 15 ml DAILY GT 07/03/20 09:00 08/02/20 08:59 07/05/20 09:21 Ondansetron HCl (Zofran) 4 mg Q6H PRN IVP Nausea & Vomiting 07/02/20 09:45 08/01/20 09:44 Zinc Sulfate (Zinc Sulfate) 220 mg DAILY GT 07/03/20 09:00 10/01/20 08:59 07/05/20 09:21 Last 24 Hour Vital Signs Date Time Temp Pulse Resp B/P (MAP) Pulse Ox O2 Delivery O2 Flow Rate FiO2 07/06/20 04:00 30 07/06/20 04:00 99.1 56 23 131/70 (90) 100 07/06/20 04:00 Mechanical Ventilator 07/06/20 03:31 56 07/06/20 02:55 63 18 30 07/06/20 00:00 98.1 60 23 129/75 (93) 100 07/06/20 00:00 Mechanical Ventilator 07/05/20 23:27 63 07/05/20 22:41 55 21 30 07/05/20 20:00 98.1 61 23 136/76 (96) 100 07/05/20 20:00 30 07/05/20 20:00 Mechanical Ventilator 07/05/20 19:42 61 07/05/20 19:10 59 16 30 07/05/20 16:00 30 07/05/20 16:00 98.2 63 23 133/69 (90) 100 07/05/20 16:00 Mechanical Ventilator 07/05/20 15:23 62 07/05/20 14:54 55 22 30 07/05/20 12:00 97.9 62 20 140/74 (96) 100 07/05/20 12:00 56 07/05/20 12:00 30 07/05/20 12:00 Mechanical Ventilator 07/05/20 11:00 60 17 30 07/05/20 08:00 97.5 54 13 130/72 (91) 100 07/05/20 08:00 30 07/05/20 08:00 Mechanical Ventilator 07/05/20 07:53 47 07/05/20 07:05 52 14 30 07/05/20 04:00 97.5 60 21 126/69 (88) 100 07/05/20 04:00 30 07/05/20 04:00 Mechanical Ventilator 07/05/20 03:27 53 07/05/20 02:53 54 16 30 07/05/20 00:00 97.7 53 21 105/61 (76) 100 07/05/20 00:00 Mechanical Ventilator 07/04/20 23:35 58 07/04/20 22:52 57 18 30 07/04/20 20:00 61 07/04/20 20:00 97.7 52 21 113/62 (79) 100 07/04/20 20:00 Mechanical Ventilator 07/04/20 20:00 30 07/04/20 18:52 55 18 30 07/04/20 16:00 30 07/04/20 16:00 Mechanical Ventilator 07/04/20 16:00 97.4 60 21 127/70 (89) 100 07/04/20 16:00 59 07/04/20 15:10 55 16 30 07/04/20 12:00 Mechanical Ventilator 07/04/20 12:00 98.3 56 18 125/70 (88) 100 07/04/20 12:00 59 07/04/20 12:00 30 07/04/20 11:30 58 19 30 07/04/20 08:00 98.0 55 17 121/74 (90) 100 07/04/20 08:00 Mechanical Ventilator 07/04/20 08:00 30 07/04/20 08:00 57 07/04/20 07:50 57 19 30 Intake and Output 07/05/20 07/06/20 19:00 07:00 Intake Total 1040 ml 970 ml Output Total 750 ml 1400 ml Balance 290 ml -430 ml Intake Free Water 270 ml 140 ml IV Total 55 ml 115 ml Tube Feeding 715 ml 715 ml Output Urine Total 750 ml 1400 ml # Bowel Movements 1 2 Labs Test 07/03/20 23:06 07/04/20 05:03 07/04/20 05:09 07/04/20 11:48 POC Whole Blood Glucose 137 MG/DL (74-106) 144 MG/DL (74-106) 94 MG/DL (74-106) White Blood Count 8.3 K/UL (4.8-10.8) Red Blood Count 2.74 M/UL (4.20-5.40) Hemoglobin 8.0 G/DL (12.0-16.0) Hematocrit 25.5 % (37.0-47.0) Mean Corpuscular Volume 93 FL (80-99) Mean Corpuscular Hemoglobin 29.4 PG (27.0-31.0) Mean Corpuscular Hemoglobin Concent 31.6 G/DL (32.0-36.0) Red Cell Distribution Width 14.5 % (11.6-14.8) Platelet Count 157 K/UL (150-450) Mean Platelet Volume 9.2 FL (6.5-10.1) Neutrophils (%) (Auto) 72.0 % (45.0-75.0) Lymphocytes (%) (Auto) 19.5 % (20.0-45.0) Monocytes (%) (Auto) 6.1 % (1.0-10.0) Eosinophils (%) (Auto) 1.9 % (0.0-3.0) Basophils (%) (Auto) 0.6 % (0.0-2.0) Sodium Level 144 MMOL/L (136-145) Potassium Level 4.0 MMOL/L (3.5-5.1) Chloride Level 113 MMOL/L (98-107) Carbon Dioxide Level 25 MMOL/L (21-32) Anion Gap 6 mmol/L (5-15) Blood Urea Nitrogen 41 mg/dL (7-18) Creatinine 0.7 MG/DL (0.55-1.30) Estimat Glomerular Filtration Rate > 60 mL/min (>60) Glucose Level 151 MG/DL (74-106) Calcium Level 8.8 MG/DL (8.5-10.1) Phosphorus Level 1.9 MG/DL (2.5-4.9) Magnesium Level 2.1 MG/DL (1.8-2.4) Total Bilirubin 0.3 MG/DL (0.2-1.0) Aspartate Amino Transf (AST/SGOT) 17 U/L (15-37) Alanine Aminotransferase (ALT/SGPT) 26 U/L (12-78) Alkaline Phosphatase 112 U/L (46-116) C-Reactive Protein, Quantitative 5.9 mg/dL (0.00-0.90) Pro-B-Type Natriuretic Peptide 1059 pg/mL (0-125) Total Protein 7.1 G/DL (6.4-8.2) Albumin 2.1 G/DL (3.4-5.0) Globulin 5.0 g/dL Albumin/Globulin Ratio 0.4 (1.0-2.7) Test 07/04/20 16:59 07/04/20 23:20 07/05/20 03:58 07/05/20 06:13 POC Whole Blood Glucose 79 MG/DL (74-106) 108 MG/DL (74-106) 128 MG/DL (74-106) White Blood Count 7.1 K/UL (4.8-10.8) Red Blood Count 2.84 M/UL (4.20-5.40) Hemoglobin 8.4 G/DL (12.0-16.0) Hematocrit 26.3 % (37.0-47.0) Mean Corpuscular Volume 92 FL (80-99) Mean Corpuscular Hemoglobin 29.4 PG (27.0-31.0) Mean Corpuscular Hemoglobin Concent 31.8 G/DL (32.0-36.0) Red Cell Distribution Width 14.2 % (11.6-14.8) Platelet Count 183 K/UL (150-450) Mean Platelet Volume 9.4 FL (6.5-10.1) Neutrophils (%) (Auto) 57.6 % (45.0-75.0) Lymphocytes (%) (Auto) 31.9 % (20.0-45.0) Monocytes (%) (Auto) 6.3 % (1.0-10.0) Eosinophils (%) (Auto) 3.6 % (0.0-3.0) Basophils (%) (Auto) 0.6 % (0.0-2.0) Sodium Level 136 MMOL/L (136-145) Potassium Level 5.0 MMOL/L (3.5-5.1) Chloride Level 106 MMOL/L (98-107) Carbon Dioxide Level 24 MMOL/L (21-32) Blood Urea Nitrogen 31 mg/dL (7-18) Creatinine 0.6 MG/DL (0.55-1.30) Estimat Glomerular Filtration Rate > 60 mL/min (>60) Glucose Level 124 MG/DL (74-106) Calcium Level 9.1 MG/DL (8.5-10.1) Test 07/05/20 17:00 07/05/20 17:38 07/05/20 23:40 07/06/20 02:50 POC Whole Blood Glucose 99 MG/DL (74-106) 108 MG/DL (74-106) White Blood Count 9.2 K/UL (4.8-10.8) Red Blood Count 2.94 M/UL (4.20-5.40) Hemoglobin 8.6 G/DL (12.0-16.0) Hematocrit 26.5 % (37.0-47.0) Mean Corpuscular Volume 90 FL (80-99) Mean Corpuscular Hemoglobin 29.1 PG (27.0-31.0) Mean Corpuscular Hemoglobin Concent 32.3 G/DL (32.0-36.0) Red Cell Distribution Width 14.3 % (11.6-14.8) Platelet Count 203 K/UL (150-450) Mean Platelet Volume 8.3 FL (6.5-10.1) Neutrophils (%) (Auto) 71.8 % (45.0-75.0) Lymphocytes (%) (Auto) 20.6 % (20.0-45.0) Monocytes (%) (Auto) 5.9 % (1.0-10.0) Eosinophils (%) (Auto) 1.3 % (0.0-3.0) Basophils (%) (Auto) 0.4 % (0.0-2.0) Sodium Level 136 MMOL/L (136-145) Potassium Level 4.7 MMOL/L (3.5-5.1) Chloride Level 103 MMOL/L (98-107) Carbon Dioxide Level 23 MMOL/L (21-32) Anion Gap 10 mmol/L (5-15) Blood Urea Nitrogen 27 mg/dL (7-18) Creatinine 0.6 MG/DL (0.55-1.30) Estimat Glomerular Filtration Rate > 60 mL/min (>60) Glucose Level 117 MG/DL (74-106) Uric Acid 3.0 MG/DL (2.6-7.2) Calcium Level 9.0 MG/DL (8.5-10.1) Phosphorus Level 2.2 MG/DL (2.5-4.9) Magnesium Level 1.8 MG/DL (1.8-2.4) Total Bilirubin 0.3 MG/DL (0.2-1.0) Aspartate Amino Transf (AST/SGOT) 23 U/L (15-37) Alanine Aminotransferase (ALT/SGPT) 25 U/L (12-78) Alkaline Phosphatase 157 U/L (46-116) C-Reactive Protein, Quantitative 3.5 mg/dL (0.00-0.90) Pro-B-Type Natriuretic Peptide 819 pg/mL (0-125) Total Protein 7.0 G/DL (6.4-8.2) Albumin 2.1 G/DL (3.4-5.0) Globulin 4.9 g/dL Albumin/Globulin Ratio 0.4 (1.0-2.7) Test 07/06/20 05:27 POC Whole Blood Glucose 107 MG/DL (74-106) Height (Feet): 5 Height (Inches): 4.00 Weight (Pounds): 145 Objective PHYSICAL EXAMINATION: GENERAL: Slightly confused in bed, oriented x1, CARDIOVASCULAR: No murmur. BREAST: no breast masses palpated LUNGS: Poor air exchange.+vent ABDOMEN: Bowel sounds distant.++peg EXTREMITIES: No cyanosis, clubbing, or edema NEUROLOGIC: Neck, weakness.bedbound++ Alan Cazares MD Jul 06, 2020 06:43
--- NOTE | 2020-07-06 07:10 | NUR ---
NURSE HAND-OFF REPORT: Important Events on Shift: none Patient Status: stable Diet: Glcuerna at 65cc/hr Pending Orders: n Pending Results/Labs:n Pending MD notification:n Latest Vital Signs: Temperature 99.1 , Pulse 56 , B/P 131 /70 , Respiratory Rate 23 , O2 SAT 100 , Mechanical Ventilator, O2 Flow Rate . Vital Sign Comment: n EKG Rhythm: Sinus Bradycardia Rhythm change?: N MD Notified?: - MD Response: Latest [place] Fall Score: 70 Fall Risk: High Risk Safety Measures: Call light Within Reach, Bed Alarm Zone 2, Side Rails Side Rails x3, Bed position Low and Locked. Fall Precautions: Yellow Socks Report given to CRISTY Bejarano.
--- NOTE | 2020-07-06 07:30 | NUR ---
NURSE NOTES: Received pt from RN JOHNNY, pt is sleeping, pt has trach connected to ventilator. pt has intact iv access RH 24G and LFA 22G SL. pt has [place] cath in place is working well. pt has G tube in place is off. no pain noted. all needs attended, bed is locked and is in the lowest position, call light within easy reach. will continue to monitor.
[2020-07-06 07:58] VITALS: BP 127/69
[2020-07-06] MEDS: Cefepime HCl 1 GM in D5W 55 ML IVPB SCH (09:05)
[2020-07-06] MEDS: Zinc Sulfate 220mg GT SCH (09:06)
[2020-07-06] MEDS: Minocycline HCl 50mg cap ORAL SCH ×2 (09:06→20:44)
[2020-07-06] MEDS: Multivitamins W/Minerals 15 ML UDC GT SCH (09:06)
[2020-07-06] MEDS: Ascorbic Acid 500mg tab GT SCH ×2 (09:06→18:03)
[2020-07-06] MEDS: Amiodarone 200mg tab GT SCH (09:07)
[2020-07-06] MEDS: Heparin 5000 units/ml inj SUBQ SCH ×2 (09:08→20:42)
--- NOTE | 2020-07-06 09:21 | General Progress Note ---
Subjective Constitutional: Reports: weakness Respiratory: Reports: shortness of breath Allergies: Coded Allergies: No Known Allergies (Unverified , 11/22/15) All Systems: reviewed and negative except above Subjective trach vent altered calm Objective Last 24 Hour Vital Signs Date Time Temp Pulse Resp B/P (MAP) Pulse Ox O2 Delivery O2 Flow Rate FiO2 07/06/20 08:00 30 07/06/20 08:00 Mechanical Ventilator 07/06/20 07:58 99.0 61 16 127/69 (88) 100 07/06/20 07:20 65 20 30 07/06/20 04:00 30 07/06/20 04:00 99.1 56 23 131/70 (90) 100 07/06/20 04:00 Mechanical Ventilator 07/06/20 03:31 56 07/06/20 02:55 63 18 30 07/06/20 00:00 98.1 60 23 129/75 (93) 100 07/06/20 00:00 Mechanical Ventilator 07/05/20 23:27 63 07/05/20 22:41 55 21 30 07/05/20 20:00 98.1 61 23 136/76 (96) 100 07/05/20 20:00 30 07/05/20 20:00 Mechanical Ventilator 07/05/20 19:42 61 07/05/20 19:10 59 16 30 07/05/20 16:00 30 07/05/20 16:00 98.2 63 23 133/69 (90) 100 07/05/20 16:00 Mechanical Ventilator 07/05/20 15:23 62 07/05/20 14:54 55 22 30 07/05/20 12:00 97.9 62 20 140/74 (96) 100 07/05/20 12:00 56 07/05/20 12:00 30 07/05/20 12:00 Mechanical Ventilator 07/05/20 11:00 60 17 30 Intake and Output 07/05/20 07/06/20 19:00 07:00 Intake Total 1040 ml 1035 ml Output Total 750 ml 1400 ml Balance 290 ml -365 ml Intake Free Water 270 ml 140 ml IV Total 55 ml 115 ml Tube Feeding 715 ml 780 ml Output Urine Total 750 ml 1400 ml # Bowel Movements 1 2 Laboratory Tests 07/05/20 17:00: Stool Occult Blood [Pending] 07/05/20 17:38: POC Whole Blood Glucose 99 07/05/20 23:40: POC Whole Blood Glucose 108H 07/06/20 02:50: White Blood Count 9.2, Red Blood Count 2.94L, Hemoglobin 8.6L, Hematocrit 26.5L, Mean Corpuscular Volume 90, Mean Corpuscular Hemoglobin 29.1, Mean Corpuscular Hemoglobin Concent 32.3, Red Cell Distribution Width 14.3, Platelet Count 203, Mean Platelet Volume 8.3, Neutrophils (%) (Auto) 71.8, Lymphocytes (%) (Auto) 20.6, Monocytes (%) (Auto) 5.9, Eosinophils (%) (Auto) 1.3, Basophils (%) (Auto) 0.4, Sodium Level 136, Potassium Level 4.7, Chloride Level 103, Carbon Dioxide Level 23, Anion Gap 10, Blood Urea Nitrogen 27H, Creatinine 0.6, Estimat Glomerular Filtration Rate > 60, Glucose Level 117H, Uric Acid 3.0, Calcium Level 9.0, Phosphorus Level 2.2L, Magnesium Level 1.8, Total Bilirubin 0.3, Aspartate Amino Transf (AST/SGOT) 23, Alanine Aminotransferase (ALT/SGPT) 25, Alkaline Phosphatase 157H, C-Reactive Protein, Quantitative 3.5H, Pro-B-Type Natriuretic Peptide 819H, Total Protein 7.0, Albumin 2.1L, Globulin 4.9, Albumin/Globulin Ratio 0.4L 07/06/20 05:27: POC Whole Blood Glucose 107H Height (Feet): 5 Height (Inches): 4.00 Weight (Pounds): 145 General Appearance: lethargic EENT: normal ENT inspection Neck: normal alignment Cardiovascular: normal peripheral pulses, normal rate, regular rhythm Respiratory/Chest: chest wall non-tender, lungs clear, normal breath sounds Abdomen: normal bowel sounds, non tender, soft Extremities: normal inspection Edema: no edema noted Arm (L), no edema noted Arm (R), no edema noted Leg (L), no edema noted Leg (R), no edema noted Pedal (L), no edema noted Pedal (R), no edema noted Generalized Neurologic: motor weakness Skin: normal pigmentation, warm/dry Assessment/Plan Problem List: (1) Pneumonia ICD Codes: J18.9 - Pneumonia, unspecified organism SNOMED: 290217397 (2) Tracheostomy dependence ICD Codes: Z93.0 - Tracheostomy status SNOMED: 057941250 (3) Chronic respiratory failure ICD Codes: J96.10 - Chronic respiratory failure, unspecified whether with hypoxia or hypercapnia SNOMED: 56024242 (4) Sepsis ICD Codes: A41.9 - Sepsis, unspecified organism SNOMED: 75201575 (5) Anemia ICD Codes: D64.9 - Anemia, unspecified SNOMED: 631231120 Status: unchanged Assessment/Plan: vent abx cbc bmp am dc plan when clear Tony Dupree DO Jul 06, 2020 09:21
--- NOTE | 2020-07-06 09:30 | General Progress Note ---
Subjective ROS Limited/Unobtainable: No Allergies: Coded Allergies: No Known Allergies (Unverified , 11/22/15) Objective Last 24 Hour Vital Signs Date Time Temp Pulse Resp B/P (MAP) Pulse Ox O2 Delivery O2 Flow Rate FiO2 07/06/20 08:00 30 07/06/20 08:00 Mechanical Ventilator 07/06/20 07:58 99.0 61 16 127/69 (88) 100 07/06/20 07:20 65 20 30 07/06/20 04:00 30 07/06/20 04:00 99.1 56 23 131/70 (90) 100 07/06/20 04:00 Mechanical Ventilator 07/06/20 03:31 56 07/06/20 02:55 63 18 30 07/06/20 00:00 98.1 60 23 129/75 (93) 100 07/06/20 00:00 Mechanical Ventilator 07/05/20 23:27 63 07/05/20 22:41 55 21 30 07/05/20 20:00 98.1 61 23 136/76 (96) 100 07/05/20 20:00 30 07/05/20 20:00 Mechanical Ventilator 07/05/20 19:42 61 07/05/20 19:10 59 16 30 07/05/20 16:00 30 07/05/20 16:00 98.2 63 23 133/69 (90) 100 07/05/20 16:00 Mechanical Ventilator 07/05/20 15:23 62 07/05/20 14:54 55 22 30 07/05/20 12:00 97.9 62 20 140/74 (96) 100 07/05/20 12:00 56 07/05/20 12:00 30 07/05/20 12:00 Mechanical Ventilator 07/05/20 11:00 60 17 30 Intake and Output 07/05/20 07/06/20 19:00 07:00 Intake Total 1040 ml 1035 ml Output Total 750 ml 1400 ml Balance 290 ml -365 ml Intake Free Water 270 ml 140 ml IV Total 55 ml 115 ml Tube Feeding 715 ml 780 ml Output Urine Total 750 ml 1400 ml # Bowel Movements 1 2 Laboratory Tests 07/05/20 17:00: Stool Occult Blood [Pending] 07/05/20 17:38: POC Whole Blood Glucose 99 07/05/20 23:40: POC Whole Blood Glucose 108H 10/7/20 02:50: White Blood Count 9.2, Red Blood Count 2.94L, Hemoglobin 8.6L, Hematocrit 26.5L, Mean Corpuscular Volume 90, Mean Corpuscular Hemoglobin 29.1, Mean Corpuscular Hemoglobin Concent 32.3, Red Cell Distribution Width 14.3, Platelet Count 203, Mean Platelet Volume 8.3, Neutrophils (%) (Auto) 71.8, Lymphocytes (%) (Auto) 20.6, Monocytes (%) (Auto) 5.9, Eosinophils (%) (Auto) 1.3, Basophils (%) (Auto) 0.4, Sodium Level 136, Potassium Level 4.7, Chloride Level 103, Carbon Dioxide Level 23, Anion Gap 10, Blood Urea Nitrogen 27H, Creatinine 0.6, Estimat Glomerular Filtration Rate > 60, Glucose Level 117H, Uric Acid 3.0, Calcium Level 9.0, Phosphorus Level 2.2L, Magnesium Level 1.8, Total Bilirubin 0.3, Aspartate Amino Transf (AST/SGOT) 23, Alanine Aminotransferase (ALT/SGPT) 25, Alkaline Phosphatase 157H, C-Reactive Protein, Quantitative 3.5H, Pro-B-Type Natriuretic Peptide 819H, Total Protein 7.0, Albumin 2.1L, Globulin 4.9, Albumin/Globulin Ratio 0.4L 07/06/20 05:27: POC Whole Blood Glucose 107H Height (Feet): 5 Height (Inches): 4.00 Weight (Pounds): 145 General Appearance: no apparent distress EENT: normal ENT inspection Neck: supple Cardiovascular: normal rate Respiratory/Chest: decreased breath sounds Abdomen: normal bowel sounds, non tender, soft Extremities: non-tender Assessment/Plan Status: unchanged Assessment/Plan: 1. Respiratory failure, on chronic vent. 2. Dysphagia with G-tube. 3. COPD. 4. Atrial fibrillation. 5. Schizophrenia. 6. Parkinson disease. 7. Diabetes. 8. Quadriplegia. 9. Gastritis. 10. Iron def anemia GTF monitor for residuals IV iron fu stool ob CBC in am Gilbert Hooks MD Jul 06, 2020 09:30
--- NOTE | 2020-07-06 09:50 | Nephrology Progress Note ---
Assessment/Plan Problem List: (1) Hypernatremia (2) Dehydration (3) Chronic respiratory failure (4) Tracheostomy dependence (5) Hypothyroidism (6) Hypoalbuminemia Assessment Hypernatremia, dehydration, Azotemia, dehydration, Pneumonia, sepsis, pyelonephritis Chronic trach and vent PEG Anemia Parkinson's Diabetes mellitus History of atrial fibrillation Plan July 06: Labs reviewed. Medication list reviewed. Electrolyte abnormalities addressed. Continue per consultants. July 05: Lab reviewed. Electrolyte abnormalities addressed. Continue per consultants. July 04: Labs reviewed. Electrolyte abnormalities noted and addressed. Continue per consultants. D5W 50 cc an hour Change Synthroid to IV Continue same medication Recheck labs iron panel thyroid panel , results noted 2D echocardiogram to evaluate LV function, results pending Albumin bolus Continue per consultants Urine studies Subjective ROS Limited/Unobtainable: Yes Objective Objective Last 24 Hour Vital Signs Date Time Temp Pulse Resp B/P (MAP) Pulse Ox O2 Delivery O2 Flow Rate FiO2 07/06/20 08:00 30 07/06/20 08:00 Mechanical Ventilator 07/06/20 07:58 99.0 61 16 127/69 (88) 100 07/06/20 07:20 65 20 30 07/06/20 04:00 30 07/06/20 04:00 99.1 56 23 131/70 (90) 100 07/06/20 04:00 Mechanical Ventilator 07/06/20 03:31 56 07/06/20 02:55 63 18 30 07/06/20 00:00 98.1 60 23 129/75 (93) 100 07/06/20 00:00 Mechanical Ventilator 07/05/20 23:27 63 07/05/20 22:41 55 21 30 07/05/20 20:00 98.1 61 23 136/76 (96) 100 07/05/20 20:00 30 07/05/20 20:00 Mechanical Ventilator 07/05/20 19:42 61 07/05/20 19:10 59 16 30 07/05/20 16:00 30 07/05/20 16:00 98.2 63 23 133/69 (90) 100 07/05/20 16:00 Mechanical Ventilator 07/05/20 15:23 62 07/05/20 14:54 55 22 30 07/05/20 12:00 97.9 62 20 140/74 (96) 100 07/05/20 12:00 56 07/05/20 12:00 30 07/05/20 12:00 Mechanical Ventilator 07/05/20 11:00 60 17 30 Intake and Output 07/05/20 07/06/20 19:00 07:00 Intake Total 1040 ml 1035 ml Output Total 750 ml 1400 ml Balance 290 ml -365 ml Intake Free Water 270 ml 140 ml IV Total 55 ml 115 ml Tube Feeding 715 ml 780 ml Output Urine Total 750 ml 1400 ml # Bowel Movements 1 2 Laboratory Tests 07/05/20 17:00: Stool Occult Blood [Pending] 07/05/20 17:38: POC Whole Blood Glucose 99 07/05/20 23:40: POC Whole Blood Glucose 108H 07/06/20 02:50: White Blood Count 9.2, Red Blood Count 2.94L, Hemoglobin 8.6L, Hematocrit 26.5L, Mean Corpuscular Volume 90, Mean Corpuscular Hemoglobin 29.1, Mean Corpuscular Hemoglobin Concent 32.3, Red Cell Distribution Width 14.3, Platelet Count 203, Mean Platelet Volume 8.3, Neutrophils (%) (Auto) 71.8, Lymphocytes (%) (Auto) 20.6, Monocytes (%) (Auto) 5.9, Eosinophils (%) (Auto) 1.3, Basophils (%) (Auto) 0.4, Sodium Level 136, Potassium Level 4.7, Chloride Level 103, Carbon Dioxide Level 23, Anion Gap 10, Blood Urea Nitrogen 27H, Creatinine 0.6, Estimat Glomerular Filtration Rate > 60, Glucose Level 117H, Uric Acid 3.0, Calcium Level 9.0, Phosphorus Level 2.2L, Magnesium Level 1.8, Total Bilirubin 0.3, Aspartate Amino Transf (AST/SGOT) 23, Alanine Aminotransferase (ALT/SGPT) 25, Alkaline Phosphatase 157H, C-Reactive Protein, Quantitative 3.5H, Pro-B-Type Natriuretic Peptide 819H, Total Protein 7.0, Albumin 2.1L, Globulin 4.9, Albumin/Globulin Ratio 0.4L 07/06/20 05:27: POC Whole Blood Glucose 107H Height (Feet): 5 Height (Inches): 4.00 Weight (Pounds): 145 General Appearance: no apparent distress EENT: other - On ventilator via trach Cardiovascular: normal rate Respiratory/Chest: decreased breath sounds Abdomen: soft Dante Chau MD Jul 06, 2020 09:50
--- NOTE | 2020-07-06 10:08 | NUR ---
NURSE NOTES: g tube feeding started 1000am as order. will continue to monitor.
--- NOTE | 2020-07-06 10:35 | Pulmonology Progress Note ---
Subjective ROS Limited/Unobtainable: Yes Interval Events: None new; trach site clean Constitutional: Denies: fever HEENT: Repors: no symptoms Respiratory: Reports: no symptoms Cardiovascular: Reports: no symptoms Gastrointestinal/Abdominal: Reports: no symptoms Genitourinary: Reports: no symptoms Allergies: Coded Allergies: No Known Allergies (Unverified , 11/22/15) All Systems: reviewed and negative except above Objective Last 24 Hour Vital Signs Date Time Temp Pulse Resp B/P (MAP) Pulse Ox O2 Delivery O2 Flow Rate FiO2 07/06/20 08:00 30 07/06/20 08:00 Mechanical Ventilator 07/06/20 07:58 99.0 61 16 127/69 (88) 100 07/06/20 07:38 63 07/06/20 07:20 65 20 30 07/06/20 04:00 30 07/06/20 04:00 99.1 56 23 131/70 (90) 100 07/06/20 04:00 Mechanical Ventilator 07/06/20 03:31 56 07/06/20 02:55 63 18 30 07/06/20 00:00 98.1 60 23 129/75 (93) 100 07/06/20 00:00 Mechanical Ventilator 07/05/20 23:27 63 07/05/20 22:41 55 21 30 07/05/20 20:00 98.1 61 23 136/76 (96) 100 07/05/20 20:00 30 07/05/20 20:00 Mechanical Ventilator 07/05/20 19:42 61 07/05/20 19:10 59 16 30 07/05/20 16:00 30 07/05/20 16:00 98.2 63 23 133/69 (90) 100 07/05/20 16:00 Mechanical Ventilator 07/05/20 15:23 62 07/05/20 14:54 55 22 30 07/05/20 12:00 97.9 62 20 140/74 (96) 100 07/05/20 12:00 56 07/05/20 12:00 30 07/05/20 12:00 Mechanical Ventilator 07/05/20 11:00 60 17 30 Intake and Output 07/05/20 07/06/20 19:00 07:00 Intake Total 1040 ml 1035 ml Output Total 750 ml 1400 ml Balance 290 ml -365 ml Intake Free Water 270 ml 140 ml IV Total 55 ml 115 ml Tube Feeding 715 ml 780 ml Output Urine Total 750 ml 1400 ml # Bowel Movements 1 2 General Appearance: no acute distress HEENT: status post trach Respiratory: chest wall non-tender, lungs clear Cardiovascular: normal peripheral pulses, normal rate Abdomen: normal bowel sounds Extremities: no cyanosis Laboratory Tests 07/05/20 17:00: Stool Occult Blood [Pending] 07/05/20 17:38: POC Whole Blood Glucose 99 07/05/20 23:40: POC Whole Blood Glucose 108H 07/06/20 02:50: White Blood Count 9.2, Red Blood Count 2.94L, Hemoglobin 8.6L, Hematocrit 26.5L, Mean Corpuscular Volume 90, Mean Corpuscular Hemoglobin 29.1, Mean Corpuscular Hemoglobin Concent 32.3, Red Cell Distribution Width 14.3, Platelet Count 203, Mean Platelet Volume 8.3, Neutrophils (%) (Auto) 71.8, Lymphocytes (%) (Auto) 20.6, Monocytes (%) (Auto) 5.9, Eosinophils (%) (Auto) 1.3, Basophils (%) (Auto) 0.4, Sodium Level 136, Potassium Level 4.7, Chloride Level 103, Carbon Dioxide Level 23, Anion Gap 10, Blood Urea Nitrogen 27H, Creatinine 0.6, Estimat Glomerular Filtration Rate > 60, Glucose Level 117H, Uric Acid 3.0, Calcium Level 9.0, Phosphorus Level 2.2L, Magnesium Level 1.8, Total Bilirubin 0.3, Aspartate Amino Transf (AST/SGOT) 23, Alanine Aminotransferase (ALT/SGPT) 25, Alkaline Phosphatase 157H, C-Reactive Protein, Quantitative 3.5H, Pro-B-Type Natriuretic Peptide 819H, Total Protein 7.0, Albumin 2.1L, Globulin 4.9, Albumin/Globulin Ratio 0.4L 07/06/20 05:27: POC Whole Blood Glucose 107H Current Medications Medications (Trade) Dose Ordered Sig/Alex Route PRN Reason Start Time Stop Time Status Last Admin Dose Admin Acetaminophen (Tylenol) 650 mg Q6H PRN GT FOR TEMP > 100.4 07/02/20 09:45 08/01/20 09:44 Acetaminophen (Tylenol) 650 mg Q6H PRN GT Mild Pain (Pain Scale 1-3) 07/02/20 10:00 08/01/20 09:59 Acetaminophen/ Hydrocodone Bitart ([place] 5/325) 1 tab Q6H PRN GT Severe Pain (Pain Scale 7-10) 07/02/20 09:45 07/09/20 09:44 Amiodarone HCl (Cordarone) 200 mg DAILY GT 07/02/20 19:15 09/30/20 19:14 07/06/20 09:07 Ascorbic Acid (Vitamin C) 500 mg TWICE A DAY GT 07/02/20 18:00 08/01/20 17:59 07/06/20 09:06 Cefepime HCl 1 gm/ Dextrose 55 ml @ 110 mls/hr EVERY 12 HOURS IVPB 07/02/20 09:00 07/09/20 08:59 07/06/20 09:05 Dextrose (Dextrose 50%) 25 ml Q30M PRN IV Hypoglycemia 07/02/20 09:45 09/30/20 09:44 Dextrose (Dextrose 50%) 50 ml Q30M PRN IV Hypoglycemia 07/02/20 09:45 09/30/20 09:44 Heparin Sodium (Porcine) (Heparin 5000 units/ml) 5,000 units EVERY 12 HOURS SUBQ 07/02/20 21:00 08/16/20 20:59 07/06/20 09:08 Insulin Aspart (NovoLOG) Q6HR SUBQ 07/02/20 12:00 09/30/20 11:59 07/04/20 06:26 Iron Sucrose 100 mg/Sodium Chloride 60 ml @ 240 mls/hr BEDTIME IV 07/03/20 21:00 07/07/20 21:14 07/05/20 20:52 Lansoprazole (Prevacid) 30 mg BID GT 07/05/20 18:00 08/03/20 08:59 07/06/20 09:06 Levothyroxine Sodium (Synthroid) 50 mcg DAILY IV 07/04/20 09:00 08/03/20 08:59 07/06/20 09:13 Minocycline HCl (Minocin) 100 mg Q12HR ORAL 07/05/20 21:00 07/12/20 20:59 07/06/20 09:06 Multivitamins (Multivitamins W/ Minerals 15ml Liquid) 15 ml DAILY GT 07/03/20 09:00 08/02/20 08:59 07/06/20 09:06 Ondansetron HCl (Zofran) 4 mg Q6H PRN IVP Nausea & Vomiting 07/02/20 09:45 08/01/20 09:44 Zinc Sulfate (Zinc Sulfate) 220 mg DAILY GT 07/03/20 09:00 10/01/20 08:59 07/06/20 09:06 Assessment/Plan Assessment/Plan Impression: UTI Pneumonia Sepsis Hypernatremia Dehydration Chronic respiratory failure Tracheostomy dependence Diabetes S/P percutaneous endoscopic gastrostomy (PEG) tube placement Failure to thrive (child) Dementia Paroxysmal A-fib Protein calorie malnutrition Iron deficiency Parkinson disease Anemia Pyelonephritis Plan: ABG prn Wean FIO2 IV 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
[2020-07-06 11:59] VITALS: BP 122/64
--- NOTE | 2020-07-06 13:33 | NUR ---
CASE MANAGEMENT: REVIEW SI: SEPSIS . SEVERE DEHYDRATION . BREAST MASS 99.0 HR 62 RR 16 BP 122/64 SAT 100% MECH VENT FIO2 30 WBC 8.6/26.5 BUN 27 GLUCOSE 117 IS: MINOCIN PO Q12HR DOXYCYCLINE GT Q12HR VENOFER IV QHS D5W IVF @ 50ML/HR CEFEPIME IV Q12HR HEMATOLOGY CONSULTED STEP DOWN UNIT STATUS DCP: PATIENT IS FROM [facility]
--- NOTE | 2020-07-06 15:03 | Infectious Diseases Prog Note ---
Assessment/Plan Assessment/Plan IMPRESSION: Sepsis improving Pneumonia. Acinetobacter UTI. anemia, chronic respiratory failure, COPD, diabetes mellitus, hypertension, hypothyroidism, pressure ulcer, hypernatremia and dehydration. VRE carrier RECOMMENDATION: We will continue with cefepime & Minocycline Will f/u CXR Subjective ROS Limited/Unobtainable: Yes Constitutional: Denies: fever Allergies: Coded Allergies: No Known Allergies (Unverified , 11/22/15) Objective Last 24 Hour Vital Signs Date Time Temp Pulse Resp B/P (MAP) Pulse Ox O2 Delivery O2 Flow Rate FiO2 07/06/20 12:00 Mechanical Ventilator 07/06/20 12:00 61 07/06/20 12:00 30 07/06/20 11:59 99.0 62 16 122/64 (83) 100 07/06/20 11:20 62 19 30 07/06/20 08:00 30 07/06/20 08:00 Mechanical Ventilator 07/06/20 07:58 99.0 61 16 127/69 (88) 100 07/06/20 07:38 63 07/06/20 07:20 65 20 30 07/06/20 04:00 30 07/06/20 04:00 99.1 56 23 131/70 (90) 100 07/06/20 04:00 Mechanical Ventilator 07/06/20 03:31 56 07/06/20 02:55 63 18 30 07/06/20 00:00 98.1 60 23 129/75 (93) 100 07/06/20 00:00 Mechanical Ventilator 07/05/20 23:27 63 07/05/20 22:41 55 21 30 07/05/20 20:00 98.1 61 23 136/76 (96) 100 07/05/20 20:00 30 07/05/20 20:00 Mechanical Ventilator 07/05/20 19:42 61 07/05/20 19:10 59 16 30 07/05/20 16:00 30 07/05/20 16:00 98.2 63 23 133/69 (90) 100 07/05/20 16:00 Mechanical Ventilator 07/05/20 15:23 62 Height (Feet): 5 Height (Inches): 4.00 Weight (Pounds): 145 General Appearance: no acute distress HEENT: mucous membranes moist, status post trach Respiratory/Chest: lungs clear, other - on ventilator Cardiovascular: normal rate Abdomen: soft, non tender Extremities: no edema Neurologic/Psychiatric: aphasia, other - opens eyes Laboratory Tests Test 07/05/20 17:00 07/05/20 17:38 07/05/20 23:40 07/06/20 02:50 Stool Occult Blood Negative (NEGATIVE) POC Whole Blood Glucose 99 MG/DL (74-106) 108 MG/DL (74-106) H White Blood Count 9.2 K/UL (4.8-10.8) Red Blood Count 2.94 M/UL (4.20-5.40) L Hemoglobin 8.6 G/DL (12.0-16.0) L Hematocrit 26.5 % (37.0-47.0) L Mean Corpuscular Volume 90 FL (80-99) Mean Corpuscular Hemoglobin 29.1 PG (27.0-31.0) Mean Corpuscular Hemoglobin Concent 32.3 G/DL (32.0-36.0) Red Cell Distribution Width 14.3 % (11.6-14.8) Platelet Count 203 K/UL (150-450) Mean Platelet Volume 8.3 FL (6.5-10.1) Neutrophils (%) (Auto) 71.8 % (45.0-75.0) Lymphocytes (%) (Auto) 20.6 % (20.0-45.0) Monocytes (%) (Auto) 5.9 % (1.0-10.0) Eosinophils (%) (Auto) 1.3 % (0.0-3.0) Basophils (%) (Auto) 0.4 % (0.0-2.0) Sodium Level 136 MMOL/L (136-145) Potassium Level 4.7 MMOL/L (3.5-5.1) Chloride Level 103 MMOL/L (98-107) Carbon Dioxide Level 23 MMOL/L (21-32) Anion Gap 10 mmol/L (5-15) Blood Urea Nitrogen 27 mg/dL (7-18) H Creatinine 0.6 MG/DL (0.55-1.30) Estimat Glomerular Filtration Rate > 60 mL/min (>60) Glucose Level 117 MG/DL (74-106) H Uric Acid 3.0 MG/DL (2.6-7.2) Calcium Level 9.0 MG/DL (8.5-10.1) Phosphorus Level 2.2 MG/DL (2.5-4.9) L Magnesium Level 1.8 MG/DL (1.8-2.4) Total Bilirubin 0.3 MG/DL (0.2-1.0) Aspartate Amino Transf (AST/SGOT) 23 U/L (15-37) Alanine Aminotransferase (ALT/SGPT) 25 U/L (12-78) Alkaline Phosphatase 157 U/L (46-116) H C-Reactive Protein, Quantitative 3.5 mg/dL (0.00-0.90) H Pro-B-Type Natriuretic Peptide 819 pg/mL (0-125) H Total Protein 7.0 G/DL (6.4-8.2) Albumin 2.1 G/DL (3.4-5.0) L Globulin 4.9 g/dL Albumin/Globulin Ratio 0.4 (1.0-2.7) L Test 07/06/20 05:27 07/06/20 11:03 POC Whole Blood Glucose 107 MG/DL (74-106) H 103 MG/DL (74-106) Current Medications Medications (Trade) Dose Ordered Sig/Alex Route PRN Reason Start Time Stop Time Status Last Admin Dose Admin Acetaminophen (Tylenol) 650 mg Q6H PRN GT FOR TEMP > 100.4 07/02/20 09:45 08/01/20 09:44 Acetaminophen (Tylenol) 650 mg Q6H PRN GT Mild Pain (Pain Scale 1-3) 07/02/20 10:00 08/01/20 09:59 Acetaminophen/ Hydrocodone Bitart ([place] 5/325) 1 tab Q6H PRN GT Severe Pain (Pain Scale 7-10) 07/02/20 09:45 07/09/20 09:44 Amiodarone HCl (Cordarone) 200 mg DAILY GT 07/02/20 19:15 09/30/20 19:14 07/06/20 09:07 Ascorbic Acid (Vitamin C) 500 mg TWICE A DAY GT 07/02/20 18:00 08/01/20 17:59 07/06/20 09:06 Cefepime HCl 1 gm/ Dextrose 55 ml @ 110 mls/hr Q24H IVPB 07/07/20 09:00 07/14/20 08:59 Dextrose (Dextrose 50%) 25 ml Q30M PRN IV Hypoglycemia 07/02/20 09:45 09/30/20 09:44 Dextrose (Dextrose 50%) 50 ml Q30M PRN IV Hypoglycemia 07/02/20 09:45 09/30/20 09:44 Heparin Sodium (Porcine) (Heparin 5000 units/ml) 5,000 units EVERY 12 HOURS SUBQ 07/02/20 21:00 08/16/20 20:59 07/06/20 09:08 Insulin Aspart (NovoLOG) Q6HR SUBQ 07/02/20 12:00 09/30/20 11:59 07/04/20 06:26 Iron Sucrose 100 mg/Sodium Chloride 60 ml @ 240 mls/hr BEDTIME IV 07/03/20 21:00 07/07/20 21:14 07/05/20 20:52 Lansoprazole (Prevacid) 30 mg BID GT 07/05/20 18:00 08/03/20 08:59 07/06/20 09:06 Levothyroxine Sodium (Synthroid) 50 mcg DAILY IV 07/04/20 09:00 08/03/20 08:59 07/06/20 09:13 Minocycline HCl (Minocin) 100 mg Q12HR ORAL 07/05/20 21:00 07/12/20 20:59 07/06/20 09:06 Multivitamins (Multivitamins W/ Minerals 15ml Liquid) 15 ml DAILY GT 07/03/20 09:00 08/02/20 08:59 07/06/20 09:06 Ondansetron HCl (Zofran) 4 mg Q6H PRN IVP Nausea & Vomiting 07/02/20 09:45 08/01/20 09:44 Zinc Sulfate (Zinc Sulfate) 220 mg DAILY GT 07/03/20 09:00 10/01/20 08:59 07/06/20 09:06 Mahesh Nicole MD Jul 06, 2020 15:03
[2020-07-06 16:00] VITALS: BP 126/63
--- NOTE | 2020-07-06 17:21 | Surgery Progress Note ---
Surgery Progress Note Subjective Additional Comments exam stable afebrile comfortable Objective Last 24 Hour Vital Signs Date Time Temp Pulse Resp B/P (MAP) Pulse Ox O2 Delivery O2 Flow Rate FiO2 07/06/20 16:00 30 07/06/20 16:00 99.5 64 15 126/63 (84) 100 07/06/20 16:00 Mechanical Ventilator 07/06/20 15:22 68 07/06/20 15:10 66 17 30 07/06/20 12:00 Mechanical Ventilator 07/06/20 12:00 61 07/06/20 12:00 30 07/06/20 11:59 99.0 62 16 122/64 (83) 100 07/06/20 11:20 62 19 30 07/06/20 08:00 30 07/06/20 08:00 Mechanical Ventilator 07/06/20 07:58 99.0 61 16 127/69 (88) 100 07/06/20 07:38 63 07/06/20 07:20 65 20 30 07/06/20 04:00 30 07/06/20 04:00 99.1 56 23 131/70 (90) 100 07/06/20 04:00 Mechanical Ventilator 07/06/20 03:31 56 07/06/20 02:55 63 18 30 07/06/20 00:00 98.1 60 23 129/75 (93) 100 07/06/20 00:00 Mechanical Ventilator 07/05/20 23:27 63 07/05/20 22:41 55 21 30 07/05/20 20:00 98.1 61 23 136/76 (96) 100 07/05/20 20:00 30 07/05/20 20:00 Mechanical Ventilator 07/05/20 19:42 61 07/05/20 19:10 59 16 30 I&O Intake and Output 07/05/20 07/06/20 19:00 07:00 Intake Total 1040 ml 1035 ml Output Total 750 ml 1400 ml Balance 290 ml -365 ml Intake Free Water 270 ml 140 ml IV Total 55 ml 115 ml Tube Feeding 715 ml 780 ml Output Urine Total 750 ml 1400 ml # Bowel Movements 1 2 Dressing: other Wound: other Cardiovascular: RSR Respiratory: decreased breath sounds Abdomen: non-tender, present bowel sounds Extremities: no tenderness, no cyanosis Laboratory Tests Test 07/05/20 17:38 07/05/20 23:40 10/7/20 02:50 07/06/20 05:27 POC Whole Blood Glucose 99 MG/DL (74-106) 108 MG/DL (74-106) H 107 MG/DL (74-106) H White Blood Count 9.2 K/UL (4.8-10.8) Red Blood Count 2.94 M/UL (4.20-5.40) L Hemoglobin 8.6 G/DL (12.0-16.0) L Hematocrit 26.5 % (37.0-47.0) L Mean Corpuscular Volume 90 FL (80-99) Mean Corpuscular Hemoglobin 29.1 PG (27.0-31.0) Mean Corpuscular Hemoglobin Concent 32.3 G/DL (32.0-36.0) Red Cell Distribution Width 14.3 % (11.6-14.8) Platelet Count 203 K/UL (150-450) Mean Platelet Volume 8.3 FL (6.5-10.1) Neutrophils (%) (Auto) 71.8 % (45.0-75.0) Lymphocytes (%) (Auto) 20.6 % (20.0-45.0) Monocytes (%) (Auto) 5.9 % (1.0-10.0) Eosinophils (%) (Auto) 1.3 % (0.0-3.0) Basophils (%) (Auto) 0.4 % (0.0-2.0) Sodium Level 136 MMOL/L (136-145) Potassium Level 4.7 MMOL/L (3.5-5.1) Chloride Level 103 MMOL/L (98-107) Carbon Dioxide Level 23 MMOL/L (21-32) Anion Gap 10 mmol/L (5-15) Blood Urea Nitrogen 27 mg/dL (7-18) H Creatinine 0.6 MG/DL (0.55-1.30) Estimat Glomerular Filtration Rate > 60 mL/min (>60) Glucose Level 117 MG/DL (74-106) H Uric Acid 3.0 MG/DL (2.6-7.2) Calcium Level 9.0 MG/DL (8.5-10.1) Phosphorus Level 2.2 MG/DL (2.5-4.9) L Magnesium Level 1.8 MG/DL (1.8-2.4) Total Bilirubin 0.3 MG/DL (0.2-1.0) Aspartate Amino Transf (AST/SGOT) 23 U/L (15-37) Alanine Aminotransferase (ALT/SGPT) 25 U/L (12-78) Alkaline Phosphatase 157 U/L (46-116) H C-Reactive Protein, Quantitative 3.5 mg/dL (0.00-0.90) H Pro-B-Type Natriuretic Peptide 819 pg/mL (0-125) H Total Protein 7.0 G/DL (6.4-8.2) Albumin 2.1 G/DL (3.4-5.0) L Globulin 4.9 g/dL Albumin/Globulin Ratio 0.4 (1.0-2.7) L Test 07/06/20 11:03 POC Whole Blood Glucose 103 MG/DL (74-106) Plan Problems: (1) Dehydration (2) Hypernatremia (3) Pneumonia (4) Protein calorie malnutrition Assessment & Plan: bmi 25 alb 2.1 wounds with granulation tissue cont tf as tolerated DAILY ESTIMATED NEEDS: Needs based on Advanced wound, critical care/ 58kg abw 25-30 kcals/kg 4162-0578 total kcals 1.5-2.0 g protein/kg 87-116 g total protein 25-30 mL/kg 1195-4046 total fluid mLs NUTRITION DIAGNOSIS: * Increased kcal/prot needs R/T wound healing as evidenced by pt * Swallowing difficulty R/T dysphagia, h/o Parkinson's disease as evidenced by pt on pureed texture diet [employer], 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 CURRENT TF:Glucerna 1.2 @ 65ml/hr x 20 hrs ENTERAL NUTRITION RECOMMENDATIONS: Glucerna 1.2 @ 70ml/hr x 20 hrs to provide 1400ml, 1680kcal, 84g prot, 1127ml free water * Increase goal rate to 70ml/hr x 20 hrs to better meet est needs * Add KEVIN BID via PEG for wound healing (+ additional 5g prot, TF + Kevin BID will provide 100% est prot needs) * HOB over 30 degrees/ water flush per MD ADDITIONAL RECOMMENDATIONS: * Calibrated bedscale wt for accurate CBW * Wound healing: continue Vit C and ZnSO4 add Kevin BID via PEG * Monitor lytes, replete as needed ( low phos 1.9) * Monitor BGs w/ TF- cont carb controlled diet (5) Failure to thrive (child) (6) Tracheostomy dependence Assessment & Plan: trach stable dressings changed no acute intervention (7) Chronic respiratory failure (8) Hypothyroidism (9) Pyelonephritis (10) Sacral decubitus ulcer Assessment & Plan: Pt presented on admission with full thickness Stage 4 sacral pressure injury. Base of wound has tissue viable. (L)3cm x (W)3.5cm x 3cm deep. Scattered areas of maceration along borders. Mixed pink epithelial and hyperpigmentation periwound. Additionally two small wounds noted to R and L buttocks within area of hyperpigmentation. R and L heels are both soft but easily blanchable.No other skin concerns noted. left ear with abrasion Tx.Plan: Cleanse sacral wound with Saline. Apply Therahoney gauze packing. Apply Moisture Barrier paste periwound. Cover with Optifoam drsg. Change every 1 days and prn. Apply Cavilon Skin Barrier to both heels. Cover each heel with Optifoam drsg. Change every 7 days and prn. Apply therahoney to left ear and cover with foam dressings. change q3 days APM/YOLY Mattress overlay. Reposition at least every 2hours or as tolerated. Off-load heels with pillow. (11) Sepsis (12) UTI (urinary tract infection) (13) Anemia (14) Dysphagia (15) Hypoalbuminemia (16) Iron deficiency (17) At high risk for aspiration (18) Parkinson disease (19) Dementia (20) Elevated CEA (21) Paroxysmal A-fib (22) Pancytopenia Holland Petty Jul 06, 2020 17:21
--- NOTE | 2020-07-06 19:31 | NUR ---
NURSE HAND-OFF REPORT: Important Events on Shift: Patient Status: Diet: Pending Orders: Pending Results/Labs: Pending MD notification: Latest Vital Signs: Temperature 99.5 , Pulse 64 , B/P 126 /63 , Respiratory Rate 15 , O2 SAT 100 , Mechanical Ventilator, O2 Flow Rate . Vital Sign Comment: EKG Rhythm: Sinus Rhythm Rhythm change?: N MD Notified?: - MD Response: Latest [place] Fall Score: 70 Fall Risk: High Risk Safety Measures: Call light Within Reach, Bed Alarm Zone 2, Side Rails Side Rails x3, Bed position Low and Locked. Fall Precautions: Yellow Socks Report given to. pt is srable, no stress noted. Endorsed plan of care. eNDORSED TO f/u IVC Saturday.
--- NOTE | 2020-07-06 19:32 | NUR ---
NURSE NOTES: Report received from CRISTY Diaz. Pt obtunded, unable to make needs known. Observed with tongue out and head contracted to left side. 5-lead EKG shows SR at 67 BPM. 100% O2 saturating at prescribed vent settings. 0 g-tube residual running Glucerna 1.2 at rate of 65 cc. Left hand IV infiltrated. Will remove and observe for cont bleeding. Right hand IV patent and kept TKO. [place] draining well to gravity. Made aware of alterations in skin integrity. Left ear DTI bleeding. Dressing changed as needed. Bed kept in lowest and locked position. Bed alarm on. Will continue monitoring.
[2020-07-06 20:00] VITALS: BP 128/71
[2020-07-06] MEDS: Iron Sucrose 100 MG in NS 55 ML IV SCH (20:44)
[2020-07-07] VITALS: BP 119/51
--- NOTE | 2020-07-07 02:00 | NUR ---
NURSE NOTES: Sponge bath given. Wound dressing on sacral changed. Pt. resting comfortably. No s/s of respiratory or cardiac distress.
[2020-07-07 04:00] VITALS: BP 128/68
[2020-07-07 05:00] LABS: BASOPHILS % (AUTO) 0.5 % (0.0-2.0); EOSINOPHILS % (AUTO) 1.6 % (0.0-3.0); HEMOGLOBIN 8.4 G/DL (12.0-16.0); LYMPHOCYTES % (AUTO) 24.6 % (20.0-45.0); MEAN CORPUSCULAR VOLUME 91 FL (80-99); MONOCYTES % (AUTO) 6.8 % (1.0-10.0); NEUTROPHILS % (AUTO) 66.5 % (45.0-75.0); PLATELET COUNT 199 K/UL (150-450); RED BLOOD COUNT 2.86 M/UL (4.20-5.40); RED CELL DISTRIBUTION WIDTH 14.3 % (11.6-14.8); WHITE BLOOD COUNT 9.1 K/UL (4.8-10.8)
[2020-07-07] MEDS: NovoLOG Insulin Flexpen SUBQ SCH ×3 (05:10→17:07)
[2020-07-07 05:18] LABS: ANION GAP 3 mmol/L (5-15); BLOOD UREA NITROGEN 26 mg/dL (7-18); CALCIUM 9.1 MG/DL (8.5-10.1); CARBON DIOXIDE 28 MMOL/L (21-32); CHLORIDE 102 MMOL/L (98-107); CREATININE 0.6 MG/DL (0.55-1.30); POTASSIUM 4.8 MMOL/L (3.5-5.1); SODIUM 133 MMOL/L (136-145)
--- NOTE | 2020-07-07 05:52 | NUR ---
NURSE NOTES: BP appears to be trending up at 157/81. No BP or pain meds observed on eMAR. Left message for MD in regards to ordering cathflo to unclog CVC. Pt in stable condition. Addendum: 07/07/20 at 0623 by Susannah Grajeda RN Wrong patient. Disregard.
--- NOTE | 2020-07-07 06:24 | NUR ---
NURSE HAND-OFF REPORT: Important Events on Shift: No changes Patient Status: Stable Diet: Glucerna 1.2 x 20 hrs Pending Orders: N Pending Results/Labs: N Pending notification: Quan - Kandi for low Sodium level Latest Vital Signs: Temperature 98.3 , Pulse 59 , B/P 128 /68 , Respiratory Rate 16 , O2 SAT 100 , Mechanical Ventilator, O2 Flow Rate . Vital Sign Comment: WNL EKG Rhythm: Sinus Bradycardia Rhythm change?: N MD Notified?: - MD Response: Latest [place] Fall Score: 70 Fall Risk: High Risk Safety Measures: Call light Within Reach, Bed Alarm Zone 1, Side Rails Side Rails x3, Bed position Low and Locked. Fall Precautions: Yellow Socks Report given to CRISTY Bui.
--- NOTE | 2020-07-07 07:09 | Hematology/Onc Progress Note ---
Assessment/Plan Assessment/Plan Assessment and Recommendations # Anemia of chronic disease (or of iron deficiency) due to underlying chronic medical issues, multifactorial --> Anemia workup has been ordered --> No evidence of hemolysis is noted, peripheral smear has been reviewed. --> Hgb goal >7. Transfuse prn. --> Iron iv has been started x 5 days --> Medications have been reviewed --> gb 9-->8.4->8.6-->8.4 # Right breast calcifications --> does not have a breast mass on exam --> f/u as outpatient with mammo as needed --> do not do a us breast here # Thrombocytopenia - potential causes multifactorial, evaluate liver and viral etiologies to begin, also could be related to underlying medications, no w improved --> Hep panel and HIV prior negative -> plt 183->203->199 # Pna --> antibiotics per Infectious Disease. # Sepsis --> antibiotics per Infectious Disease. --> ABX doxy/cefepime # Dehydration. --> PT and Dietary evaluation. # Hypertension --> Blood pressure control. # Dvt ppx heparin sq The timing of this note does not necessarily reflect the time of the patient was seen Greatly appreciate consultation! Subjective Constitutional: Denies: no symptoms, chills, fever, malaise, weakness, other HEENT: Denies: no symptoms, eye pain, blurred vision, tearing, double vision, ear pain, ear discharge, nose pain, nose congestion, throat pain, throat swelling, mouth pain, mouth swelling, other Cardiovascular: Denies: no symptoms, chest pain, edema, irregular heart rate, lightheadedness, palpitations, syncope, other Respiratory: Denies: no symptoms, cough, shortness of breath, SOB with excertion, SOB at rest, sputum, wheezing, other Genitourinary: Denies: no symptoms, burning, discharge, frequency, flank pain, hematuria, incontinence, pain, urgency, other Neurologic/Psychiatric: Denies: no symptoms, anxiety, depressed, emotional problems, headache, numbness, paresthesia, pre-existing deficit, seizure, tingling, tremors, weakness, other Endocrine: Denies: no symptoms, excessive sweating, flushing, intolerance to cold, intolerance to heat, increased hunger, increased thirst, increased urine, unexplained weight gain, unexplained weight loss, other Hematologic/Lymphatic: Denies: no symptoms, anemia, easy bleeding, easy bruising, adenopathy, other Allergies: Coded Allergies: No Known Allergies (Unverified , 11/22/15) Subjective 07/06 no events, is comfortable, dw daughter again last night, no breast mass palpated 07/07 on vent, glucerna, labs noted, no bleeding, imaging reviewed Objective Objective Current Medications Medications (Trade) Dose Ordered Sig/Alex Route PRN Reason Start Time Stop Time Status Last Admin Dose Admin Acetaminophen (Tylenol) 650 mg Q6H PRN GT FOR TEMP > 100.4 07/02/20 09:45 08/01/20 09:44 Acetaminophen (Tylenol) 650 mg Q6H PRN GT Mild Pain (Pain Scale 1-3) 07/02/20 10:00 08/01/20 09:59 Acetaminophen/ Hydrocodone Bitart ([place] 5/325) 1 tab Q6H PRN GT Severe Pain (Pain Scale 7-10) 07/02/20 09:45 07/09/20 09:44 Amiodarone HCl (Cordarone) 200 mg DAILY GT 07/02/20 19:15 09/30/20 19:14 07/06/20 09:07 Ascorbic Acid (Vitamin C) 500 mg TWICE A DAY GT 07/02/20 18:00 08/01/20 17:59 07/06/20 18:03 Cefepime HCl 1 gm/ Dextrose 55 ml @ 110 mls/hr Q24H IVPB 07/07/20 09:00 07/14/20 08:59 Dextrose (Dextrose 50%) 25 ml Q30M PRN IV Hypoglycemia 07/02/20 09:45 09/30/20 09:44 Dextrose (Dextrose 50%) 50 ml Q30M PRN IV Hypoglycemia 07/02/20 09:45 09/30/20 09:44 Heparin Sodium (Porcine) (Heparin 5000 units/ml) 5,000 units EVERY 12 HOURS SUBQ 07/02/20 21:00 08/16/20 20:59 07/06/20 20:42 Insulin Aspart (NovoLOG) Q6HR SUBQ 07/02/20 12:00 09/30/20 11:59 07/04/20 06:26 Iron Sucrose 100 mg/Sodium Chloride 60 ml @ 240 mls/hr BEDTIME IV 07/03/20 21:00 07/07/20 21:14 07/06/20 20:44 Lansoprazole (Prevacid) 30 mg BID GT 07/05/20 18:00 08/03/20 08:59 07/06/20 18:03 Levothyroxine Sodium (Synthroid) 50 mcg DAILY IV 07/04/20 09:00 08/03/20 08:59 07/06/20 09:13 Minocycline HCl (Minocin) 100 mg Q12HR ORAL 07/05/20 21:00 07/12/20 20:59 07/06/20 20:44 Multivitamins (Multivitamins W/ Minerals 15ml Liquid) 15 ml DAILY GT 07/03/20 09:00 08/02/20 08:59 07/06/20 09:06 Ondansetron HCl (Zofran) 4 mg Q6H PRN IVP Nausea & Vomiting 07/02/20 09:45 08/01/20 09:44 Zinc Sulfate (Zinc Sulfate) 220 mg DAILY GT 07/03/20 09:00 10/01/20 08:59 07/06/20 09:06 Last 24 Hour Vital Signs Date Time Temp Pulse Resp B/P (MAP) Pulse Ox O2 Delivery O2 Flow Rate FiO2 07/07/20 04:00 30 07/07/20 04:00 98.3 59 16 128/68 (88) 100 07/07/20 04:00 Mechanical Ventilator 07/07/20 03:38 49 07/07/20 03:00 61 16 30 07/07/20 00:00 Mechanical Ventilator 07/07/20 00:00 98.8 60 16 119/51 (73) 100 07/06/20 23:31 62 07/06/20 22:50 52 13 30 07/06/20 20:00 30 07/06/20 20:00 Mechanical Ventilator 07/06/20 20:00 98.8 66 18 128/71 (90) 100 07/06/20 19:25 64 16 30 07/06/20 19:01 65 07/06/20 16:00 30 07/06/20 16:00 99.5 64 15 126/63 (84) 100 07/06/20 16:00 Mechanical Ventilator 07/06/20 15:22 68 07/06/20 15:10 66 17 30 07/06/20 12:00 Mechanical Ventilator 07/06/20 12:00 61 07/06/20 12:00 30 07/06/20 11:59 99.0 62 16 122/64 (83) 100 07/06/20 11:20 62 19 30 07/06/20 08:00 30 07/06/20 08:00 Mechanical Ventilator 07/06/20 07:58 99.0 61 16 127/69 (88) 100 07/06/20 07:38 63 07/06/20 07:20 65 20 30 07/06/20 04:00 30 07/06/20 04:00 99.1 56 23 131/70 (90) 100 07/06/20 04:00 Mechanical Ventilator 07/06/20 03:31 56 07/06/20 02:55 63 18 30 07/06/20 00:00 98.1 60 23 129/75 (93) 100 07/06/20 00:00 Mechanical Ventilator 07/05/20 23:27 63 07/05/20 22:41 55 21 30 07/05/20 20:00 98.1 61 23 136/76 (96) 100 07/05/20 20:00 30 07/05/20 20:00 Mechanical Ventilator 07/05/20 19:42 61 07/05/20 19:10 59 16 30 07/05/20 16:00 30 07/05/20 16:00 98.2 63 23 133/69 (90) 100 07/05/20 16:00 Mechanical Ventilator 07/05/20 15:23 62 07/05/20 14:54 55 22 30 07/05/20 12:00 97.9 62 20 140/74 (96) 100 07/05/20 12:00 56 07/05/20 12:00 30 07/05/20 12:00 Mechanical Ventilator 07/05/20 11:00 60 17 30 07/05/20 08:00 97.5 54 13 130/72 (91) 100 07/05/20 08:00 30 07/05/20 08:00 Mechanical Ventilator 07/05/20 07:53 47 Intake and Output 07/06/20 07/07/20 18:59 06:59 Intake Total 1035 ml 1145 ml Output Total 1200 ml 400 ml Balance -165 ml 745 ml Intake Free Water 200 ml 140 ml IV Total 55 ml 60 ml Tube Feeding 780 ml 845 ml Blood Product 100 ml Output Urine Total 1200 ml 400 ml Labs Test 07/04/20 11:48 07/04/20 16:59 07/04/20 23:20 07/05/20 03:58 POC Whole Blood Glucose 94 MG/DL (74-106) 79 MG/DL (74-106) 108 MG/DL (74-106) White Blood Count 7.1 K/UL (4.8-10.8) Red Blood Count 2.84 M/UL (4.20-5.40) Hemoglobin 8.4 G/DL (12.0-16.0) Hematocrit 26.3 % (37.0-47.0) Mean Corpuscular Volume 92 FL (80-99) Mean Corpuscular Hemoglobin 29.4 PG (27.0-31.0) Mean Corpuscular Hemoglobin Concent 31.8 G/DL (32.0-36.0) Red Cell Distribution Width 14.2 % (11.6-14.8) Platelet Count 183 K/UL (150-450) Mean Platelet Volume 9.4 FL (6.5-10.1) Neutrophils (%) (Auto) 57.6 % (45.0-75.0) Lymphocytes (%) (Auto) 31.9 % (20.0-45.0) Monocytes (%) (Auto) 6.3 % (1.0-10.0) Eosinophils (%) (Auto) 3.6 % (0.0-3.0) Basophils (%) (Auto) 0.6 % (0.0-2.0) Sodium Level 136 MMOL/L (136-145) Potassium Level 5.0 MMOL/L (3.5-5.1) Chloride Level 106 MMOL/L (98-107) Carbon Dioxide Level 24 MMOL/L (21-32) Blood Urea Nitrogen 31 mg/dL (7-18) Creatinine 0.6 MG/DL (0.55-1.30) Estimat Glomerular Filtration Rate > 60 mL/min (>60) Glucose Level 124 MG/DL (74-106) Calcium Level 9.1 MG/DL (8.5-10.1) Test 07/05/20 06:13 07/05/20 17:00 07/05/20 17:38 07/05/20 23:40 POC Whole Blood Glucose 128 MG/DL (74-106) 99 MG/DL (74-106) 108 MG/DL (74-106) Stool Occult Blood Negative (NEGATIVE) Test 07/06/20 02:50 07/06/20 05:27 07/06/20 11:03 07/06/20 18:16 White Blood Count 9.2 K/UL (4.8-10.8) Red Blood Count 2.94 M/UL (4.20-5.40) Hemoglobin 8.6 G/DL (12.0-16.0) Hematocrit 26.5 % (37.0-47.0) Mean Corpuscular Volume 90 FL (80-99) Mean Corpuscular Hemoglobin 29.1 PG (27.0-31.0) Mean Corpuscular Hemoglobin Concent 32.3 G/DL (32.0-36.0) Red Cell Distribution Width 14.3 % (11.6-14.8) Platelet Count 203 K/UL (150-450) Mean Platelet Volume 8.3 FL (6.5-10.1) Neutrophils (%) (Auto) 71.8 % (45.0-75.0) Lymphocytes (%) (Auto) 20.6 % (20.0-45.0) Monocytes (%) (Auto) 5.9 % (1.0-10.0) Eosinophils (%) (Auto) 1.3 % (0.0-3.0) Basophils (%) (Auto) 0.4 % (0.0-2.0) Sodium Level 136 MMOL/L (136-145) Potassium Level 4.7 MMOL/L (3.5-5.1) Chloride Level 103 MMOL/L (98-107) Carbon Dioxide Level 23 MMOL/L (21-32) Anion Gap 10 mmol/L (5-15) Blood Urea Nitrogen 27 mg/dL (7-18) Creatinine 0.6 MG/DL (0.55-1.30) Estimat Glomerular Filtration Rate > 60 mL/min (>60) Glucose Level 117 MG/DL (74-106) Uric Acid 3.0 MG/DL (2.6-7.2) Calcium Level 9.0 MG/DL (8.5-10.1) Phosphorus Level 2.2 MG/DL (2.5-4.9) Magnesium Level 1.8 MG/DL (1.8-2.4) Total Bilirubin 0.3 MG/DL (0.2-1.0) Aspartate Amino Transf (AST/SGOT) 23 U/L (15-37) Alanine Aminotransferase (ALT/SGPT) 25 U/L (12-78) Alkaline Phosphatase 157 U/L (46-116) C-Reactive Protein, Quantitative 3.5 mg/dL (0.00-0.90) Pro-B-Type Natriuretic Peptide 819 pg/mL (0-125) Total Protein 7.0 G/DL (6.4-8.2) Albumin 2.1 G/DL (3.4-5.0) Globulin 4.9 g/dL Albumin/Globulin Ratio 0.4 (1.0-2.7) POC Whole Blood Glucose 107 MG/DL (74-106) 103 MG/DL (74-106) Test 07/07/20 03:10 07/07/20 05:02 White Blood Count 9.1 K/UL (4.8-10.8) Red Blood Count 2.86 M/UL (4.20-5.40) Hemoglobin 8.4 G/DL (12.0-16.0) Hematocrit 26.0 % (37.0-47.0) Mean Corpuscular Volume 91 FL (80-99) Mean Corpuscular Hemoglobin 29.5 PG (27.0-31.0) Mean Corpuscular Hemoglobin Concent 32.4 G/DL (32.0-36.0) Red Cell Distribution Width 14.3 % (11.6-14.8) Platelet Count 199 K/UL (150-450) Mean Platelet Volume 8.7 FL (6.5-10.1) Neutrophils (%) (Auto) 66.5 % (45.0-75.0) Lymphocytes (%) (Auto) 24.6 % (20.0-45.0) Monocytes (%) (Auto) 6.8 % (1.0-10.0) Eosinophils (%) (Auto) 1.6 % (0.0-3.0) Basophils (%) (Auto) 0.5 % (0.0-2.0) Sodium Level 133 MMOL/L (136-145) Potassium Level 4.8 MMOL/L (3.5-5.1) Chloride Level 102 MMOL/L (98-107) Carbon Dioxide Level 28 MMOL/L (21-32) Anion Gap 3 mmol/L (5-15) Blood Urea Nitrogen 26 mg/dL (7-18) Creatinine 0.6 MG/DL (0.55-1.30) Estimat Glomerular Filtration Rate > 60 mL/min (>60) Glucose Level 98 MG/DL (74-106) Calcium Level 9.1 MG/DL (8.5-10.1) POC Whole Blood Glucose 102 MG/DL (74-106) Height (Feet): 5 Height (Inches): 4.00 Weight (Pounds): 145 Objective PHYSICAL EXAMINATION: GENERAL: Slightly confused in bed, oriented x1, CARDIOVASCULAR: No murmur. BREAST: no breast masses palpated LUNGS: Poor air exchange.+vent ABDOMEN: Bowel sounds distant.++peg EXTREMITIES: No cyanosis, clubbing, or edema NEUROLOGIC: Neck, weakness.bedbound++ Alan Cazares MD Jul 07, 2020 07:09
--- NOTE | 2020-07-07 07:23 | NUR ---
NURSE NOTES: Received report from CRISTY Davalos. Patient is resting in bed, in stable condition. No s/sx of SOB, breathing is even and unlabored, patient on vent with vent settings as ordered. Patient is nonverbal, observed no presence of pain or discomfort at this time. Bed is in lowest position, brakes engaged. Call light is kept within easy reach. Will continue to monitor patient.
--- NOTE | 2020-07-07 07:30 | NUR ---
NURSE NOTES: Per night nurse CRISTY Davalos patient becomes sinus bradycardia, patient currently noted with HR 45 bpm sinus bradycardia, per CRISTY Davalos Dr. is aware and no new orders were give. Will continue to monitor at this time.
[2020-07-07 08:00] VITALS: BP 110/56
[2020-07-07] MEDS: Cefepime HCl 1 GM in D5W 55 ML IVPB SCH (08:56)
[2020-07-07] MEDS: Zinc Sulfate 220mg GT SCH (08:57)
[2020-07-07] MEDS: Minocycline HCl 50mg cap ORAL SCH ×2 (08:57→21:02)
[2020-07-07] MEDS: Multivitamins W/Minerals 15 ML UDC GT SCH (08:57)
[2020-07-07] MEDS: Heparin 5000 units/ml inj SUBQ SCH ×2 (08:57→21:02)
[2020-07-07] MEDS: Ascorbic Acid 500mg tab GT SCH ×2 (08:57→17:12)
[2020-07-07] MEDS: Amiodarone 200mg tab GT SCH (09:05)
--- NOTE | 2020-07-07 09:55 | NUR ---
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 CURRENT TF:Glucerna 1.2 @ 65ml/hr x 20 hrs ENTERAL NUTRITION RECOMMENDATIONS: Glucerna 1.2 @ 70ml/hr x 20 hrs to provide 1400ml, 1680kcal, 84g prot, 1127ml free water * Increase goal rate to 70ml/hr x 20 hrs to better meet est needs * Add KEVIN BID via PEG for wound healing (+ additional 5g prot, TF + Kevin BID will provide 100% est prot needs) * HOB over 30 degrees/ water flush per MD ADDITIONAL RECOMMENDATIONS: * Calibrated bedscale wt for accurate CBW * Wound healing: continue Vit C and ZnSO4 add Kevin BID via PEG * Monitor lytes, replete as needed ( low phos 2.2) * Monitor BGs w/ TF- cont carb controlled diet + NISS .
--- NOTE | 2020-07-07 10:39 | Pulmonology Progress Note ---
Subjective ROS Limited/Unobtainable: Yes Interval Events: None new; trach site clean Constitutional: Denies: fever HEENT: Repors: no symptoms Respiratory: Reports: no symptoms Cardiovascular: Reports: no symptoms Gastrointestinal/Abdominal: Reports: no symptoms Genitourinary: Reports: no symptoms Allergies: Coded Allergies: No Known Allergies (Unverified , 11/22/15) All Systems: reviewed and negative except above Objective Last 24 Hour Vital Signs Date Time Temp Pulse Resp B/P (MAP) Pulse Ox O2 Delivery O2 Flow Rate FiO2 07/07/20 08:00 57 07/07/20 08:00 30 07/07/20 08:00 98.2 63 15 110/56 (74) 100 07/07/20 08:00 Mechanical Ventilator 07/07/20 07:20 62 17 30 07/07/20 04:00 30 07/07/20 04:00 98.3 59 16 128/68 (88) 100 07/07/20 04:00 Mechanical Ventilator 07/07/20 03:38 49 07/07/20 03:00 61 16 30 07/07/20 00:00 Mechanical Ventilator 07/07/20 00:00 98.8 60 16 119/51 (73) 100 07/06/20 23:31 62 07/06/20 22:50 52 13 30 07/06/20 20:00 30 07/06/20 20:00 Mechanical Ventilator 07/06/20 20:00 98.8 66 18 128/71 (90) 100 07/06/20 19:25 64 16 30 07/06/20 19:01 65 07/06/20 16:00 30 07/06/20 16:00 99.5 64 15 126/63 (84) 100 07/06/20 16:00 Mechanical Ventilator 07/06/20 15:22 68 07/06/20 15:10 66 17 30 07/06/20 12:00 Mechanical Ventilator 07/06/20 12:00 61 07/06/20 12:00 30 07/06/20 11:59 99.0 62 16 122/64 (83) 100 07/06/20 11:20 62 19 30 Intake and Output 07/06/20 07/07/20 18:59 06:59 Intake Total 1035 ml 1145 ml Output Total 1200 ml 400 ml Balance -165 ml 745 ml Intake Free Water 200 ml 140 ml IV Total 55 ml 60 ml Tube Feeding 780 ml 845 ml Blood Product 100 ml Output Urine Total 1200 ml 400 ml General Appearance: no acute distress HEENT: status post trach Respiratory: chest wall non-tender, lungs clear Cardiovascular: normal peripheral pulses, normal rate Abdomen: normal bowel sounds Extremities: no cyanosis Microbiology Date/Time Source Procedure Growth Status 07/04/20 23:50 Sputum Gram Stain - Final Resulted 07/04/20 23:50 Sputum Culture - Preliminary Proteus Mirabilis Serratia Marcescens Resulted Laboratory Tests 07/06/20 11:03: POC Whole Blood Glucose 103 07/06/20 18:16: POC Whole Blood Glucose [Pending] 07/07/20 03:10: White Blood Count 9.1, Red Blood Count 2.86L, Hemoglobin 8.4L, Hematocrit 26.0L, Mean Corpuscular Volume 91, Mean Corpuscular Hemoglobin 29.5, Mean Corpuscular Hemoglobin Concent 32.4, Red Cell Distribution Width 14.3, Platelet Count 199, Mean Platelet Volume 8.7, Neutrophils (%) (Auto) 66.5, Lymphocytes (%) (Auto) 24.6, Monocytes (%) (Auto) 6.8, Eosinophils (%) (Auto) 1.6, Basophils (%) (Auto) 0.5, Sodium Level 133L, Potassium Level 4.8, Chloride Level 102, Carbon Dioxide Level 28, Anion Gap 3L, Blood Urea Nitrogen 26H, Creatinine 0.6, Estimat Glomerular Filtration Rate > 60, Glucose Level 98, Calcium Level 9.1 07/07/20 05:02: POC Whole Blood Glucose 102 Current Medications Medications (Trade) Dose Ordered Sig/Alex Route PRN Reason Start Time Stop Time Status Last Admin Dose Admin Acetaminophen (Tylenol) 650 mg Q6H PRN GT FOR TEMP > 100.4 07/02/20 09:45 08/01/20 09:44 Acetaminophen (Tylenol) 650 mg Q6H PRN GT Mild Pain (Pain Scale 1-3) 07/02/20 10:00 08/01/20 09:59 Acetaminophen/ Hydrocodone Bitart ([place] 5/325) 1 tab Q6H PRN GT Severe Pain (Pain Scale 7-10) 07/02/20 09:45 07/09/20 09:44 Amiodarone HCl (Cordarone) 200 mg DAILY GT 07/02/20 19:15 09/30/20 19:14 07/07/20 09:05 Ascorbic Acid (Vitamin C) 500 mg TWICE A DAY GT 07/02/20 18:00 08/01/20 17:59 07/07/20 08:57 Cefepime HCl 1 gm/ Dextrose 55 ml @ 110 mls/hr Q24H IVPB 07/07/20 09:00 07/14/20 08:59 07/07/20 08:56 Dextrose (Dextrose 50%) 25 ml Q30M PRN IV Hypoglycemia 07/02/20 09:45 09/30/20 09:44 Dextrose (Dextrose 50%) 50 ml Q30M PRN IV Hypoglycemia 07/02/20 09:45 09/30/20 09:44 Heparin Sodium (Porcine) (Heparin 5000 units/ml) 5,000 units EVERY 12 HOURS SUBQ 07/02/20 21:00 08/16/20 20:59 07/07/20 08:57 Insulin Aspart (NovoLOG) Q6HR SUBQ 07/02/20 12:00 09/30/20 11:59 07/04/20 06:26 Iron Sucrose 100 mg/Sodium Chloride 60 ml @ 240 mls/hr BEDTIME IV 07/03/20 21:00 07/07/20 21:14 07/06/20 20:44 Lansoprazole (Prevacid) 30 mg BID GT 07/05/20 18:00 08/03/20 08:59 07/07/20 08:57 Levothyroxine Sodium (Synthroid) 50 mcg DAILY IV 07/04/20 09:00 08/03/20 08:59 07/07/20 08:58 Minocycline HCl (Minocin) 100 mg Q12HR ORAL 07/05/20 21:00 07/12/20 20:59 07/07/20 08:57 Multivitamins (Multivitamins W/ Minerals 15ml Liquid) 15 ml DAILY GT 07/03/20 09:00 08/02/20 08:59 07/07/20 08:57 Ondansetron HCl (Zofran) 4 mg Q6H PRN IVP Nausea & Vomiting 07/02/20 09:45 08/01/20 09:44 Zinc Sulfate (Zinc Sulfate) 220 mg DAILY GT 07/03/20 09:00 1/2/21 08:59 07/07/20 08:57 Assessment/Plan Assessment/Plan Impression: UTI Pneumonia Sepsis Hypernatremia Dehydration Chronic respiratory failure Tracheostomy dependence Diabetes S/P percutaneous endoscopic gastrostomy (PEG) tube placement Failure to thrive (child) Dementia Paroxysmal A-fib Protein calorie malnutrition Iron deficiency Parkinson disease Anemia Pyelonephritis Plan: ABG prn Wean FIO2 IV Antibiotics IVF 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
--- NOTE | 2020-07-07 11:00 | Nephrology Progress Note ---
Assessment/Plan Problem List: (1) Hypernatremia (2) Dehydration (3) Chronic respiratory failure (4) Tracheostomy dependence (5) Hypothyroidism (6) Hypoalbuminemia Assessment Hypernatremia, dehydration, Azotemia, dehydration, Pneumonia, sepsis, pyelonephritis Chronic trach and vent PEG Anemia Parkinson's Diabetes mellitus History of atrial fibrillation Plan July 07: Labs reviewed. Serum sodium 133. Continue to monitor renal pa rameters and electrolytes. Medication list reviewed. July 06: Labs reviewed. Medication list reviewed. Electrolyte abnormalities addressed. Continue per consultants. July 05: Lab reviewed. Electrolyte abnormalities addressed. Continue per consultants. July 04: Labs reviewed. Electrolyte abnormalities noted and addressed. Continue per consultants. D5W 50 cc an hour Change Synthroid to IV Continue same medication Recheck labs iron panel thyroid panel , results noted 2D echocardiogram to evaluate LV function, results pending Albumin bolus Continue per consultants Urine studies Subjective ROS Limited/Unobtainable: Yes Objective Objective Last 24 Hour Vital Signs Date Time Temp Pulse Resp B/P (MAP) Pulse Ox O2 Delivery O2 Flow Rate FiO2 07/07/20 08:00 57 07/07/20 08:00 30 07/07/20 08:00 98.2 63 15 110/56 (74) 100 07/07/20 08:00 Mechanical Ventilator 07/07/20 07:20 62 17 30 07/07/20 04:00 30 07/07/20 04:00 98.3 59 16 128/68 (88) 100 07/07/20 04:00 Mechanical Ventilator 07/07/20 03:38 49 07/07/20 03:00 61 16 30 07/07/20 00:00 Mechanical Ventilator 07/07/20 00:00 98.8 60 16 119/51 (73) 100 07/06/20 23:31 62 07/06/20 22:50 52 13 30 07/06/20 20:00 30 07/06/20 20:00 Mechanical Ventilator 07/06/20 20:00 98.8 66 18 128/71 (90) 100 07/06/20 19:25 64 16 30 07/06/20 19:01 65 07/06/20 16:00 30 07/06/20 16:00 99.5 64 15 126/63 (84) 100 07/06/20 16:00 Mechanical Ventilator 10/7/20 15:22 68 07/06/20 15:10 66 17 30 07/06/20 12:00 Mechanical Ventilator 07/06/20 12:00 61 07/06/20 12:00 30 07/06/20 11:59 99.0 62 16 122/64 (83) 100 07/06/20 11:20 62 19 30 Intake and Output 07/06/20 07/07/20 18:59 06:59 Intake Total 1035 ml 1145 ml Output Total 1200 ml 400 ml Balance -165 ml 745 ml Intake Free Water 200 ml 140 ml IV Total 55 ml 60 ml Tube Feeding 780 ml 845 ml Blood Product 100 ml Output Urine Total 1200 ml 400 ml Laboratory Tests 07/06/20 11:03: POC Whole Blood Glucose 103 07/06/20 18:16: POC Whole Blood Glucose [Pending] 07/07/20 03:10: White Blood Count 9.1, Red Blood Count 2.86L, Hemoglobin 8.4L, Hematocrit 26.0L, Mean Corpuscular Volume 91, Mean Corpuscular Hemoglobin 29.5, Mean Corpuscular Hemoglobin Concent 32.4, Red Cell Distribution Width 14.3, Platelet Count 199, Mean Platelet Volume 8.7, Neutrophils (%) (Auto) 66.5, Lymphocytes (%) (Auto) 24.6, Monocytes (%) (Auto) 6.8, Eosinophils (%) (Auto) 1.6, Basophils (%) (Auto) 0.5, Sodium Level 133L, Potassium Level 4.8, Chloride Level 102, Carbon Dioxide Level 28, Anion Gap 3L, Blood Urea Nitrogen 26H, Creatinine 0.6, Estimat Glomerular Filtration Rate > 60, Glucose Level 98, Calcium Level 9.1 07/07/20 05:02: POC Whole Blood Glucose 102 Height (Feet): 5 Height (Inches): 4.00 Weight (Pounds): 145 General Appearance: no apparent distress EENT: other - Trach to vent Cardiovascular: normal rate Respiratory/Chest: decreased breath sounds Abdomen: soft Dante Chau MD Jul 07, 2020 11:00
[2020-07-07 12:00] VITALS: BP 117/60
--- NOTE | 2020-07-07 12:07 | General Progress Note ---
Subjective ROS Limited/Unobtainable: No Allergies: Coded Allergies: No Known Allergies (Unverified , 11/22/15) Objective Last 24 Hour Vital Signs Date Time Temp Pulse Resp B/P (MAP) Pulse Ox O2 Delivery O2 Flow Rate FiO2 07/07/20 08:00 57 07/07/20 08:00 30 07/07/20 08:00 98.2 63 15 110/56 (74) 100 07/07/20 08:00 Mechanical Ventilator 07/07/20 07:20 62 17 30 07/07/20 04:00 30 07/07/20 04:00 98.3 59 16 128/68 (88) 100 07/07/20 04:00 Mechanical Ventilator 07/07/20 03:38 49 07/07/20 03:00 61 16 30 07/07/20 00:00 Mechanical Ventilator 07/07/20 00:00 98.8 60 16 119/51 (73) 100 07/06/20 23:31 62 07/06/20 22:50 52 13 30 07/06/20 20:00 30 07/06/20 20:00 Mechanical Ventilator 07/06/20 20:00 98.8 66 18 128/71 (90) 100 07/06/20 19:25 64 16 30 07/06/20 19:01 65 07/06/20 16:00 30 07/06/20 16:00 99.5 64 15 126/63 (84) 100 07/06/20 16:00 Mechanical Ventilator 07/06/20 15:22 68 07/06/20 15:10 66 17 30 Intake and Output 07/06/20 07/07/20 19:00 07:00 Intake Total 1075 ml 1040 ml Output Total 1200 ml 400 ml Balance -125 ml 640 ml Intake Free Water 240 ml 100 ml IV Total 55 ml 60 ml Tube Feeding 780 ml 780 ml Blood Product 100 ml Output Urine Total 1200 ml 400 ml Laboratory Tests 07/06/20 18:16: POC Whole Blood Glucose [Pending] 07/07/20 03:10: White Blood Count 9.1, Red Blood Count 2.86L, Hemoglobin 8.4L, Hematocrit 26.0L, Mean Corpuscular Volume 91, Mean Corpuscular Hemoglobin 29.5, Mean Corpuscular Hemoglobin Concent 32.4, Red Cell Distribution Width 14.3, Platelet Count 199, Mean Platelet Volume 8.7, Neutrophils (%) (Auto) 66.5, Lymphocytes (%) (Auto) 24.6, Monocytes (%) (Auto) 6.8, Eosinophils (%) (Auto) 1.6, Basophils (%) (Auto) 0.5, Sodium Level 133L, Potassium Level 4.8, Chloride Level 102, Carbon Dioxide Level 28, Anion Gap 3L, Blood Urea Nitrogen 26H, Creatinine 0.6, Estimat Glomer ular Filtration Rate > 60, Glucose Level 98, Calcium Level 9.1 07/07/20 05:02: POC Whole Blood Glucose 102 07/07/20 11:04: POC Whole Blood Glucose 96 Height (Feet): 5 Height (Inches): 4.00 Weight (Pounds): 145 General Appearance: no apparent distress EENT: normal ENT inspection Neck: normal alignment Cardiovascular: normal rate Respiratory/Chest: decreased breath sounds Abdomen: normal bowel sounds, non tender, soft Extremities: non-tender Assessment/Plan Status: unchanged Assessment/Plan: 1. Respiratory failure, on chronic vent. 2. Dysphagia with G-tube. 3. COPD. 4. Atrial fibrillation. 5. Schizophrenia. 6. Parkinson disease. 7. Diabetes. 8. Quadriplegia. 9. Gastritis. 10. Iron def anemia GTF>> will increase to 70 cc monitor for residuals IV iron fu stool ob CBC in [facility] MD Jul 07, 2020 12:07
--- NOTE | 2020-07-07 13:18 | General Progress Note ---
Subjective Constitutional: Reports: weakness Allergies: Coded Allergies: No Known Allergies (Unverified , 11/22/15) All Systems: reviewed and negative except above Subjective trach vent altered calm Objective Last 24 Hour Vital Signs Date Time Temp Pulse Resp B/P (MAP) Pulse Ox O2 Delivery O2 Flow Rate FiO2 07/07/20 12:00 98.4 51 15 117/60 (79) 100 07/07/20 12:00 30 07/07/20 12:00 47 07/07/20 12:00 Mechanical Ventilator 07/07/20 08:00 57 07/07/20 08:00 30 07/07/20 08:00 98.2 63 15 110/56 (74) 100 07/07/20 08:00 Mechanical Ventilator 07/07/20 07:20 62 17 30 07/07/20 04:00 30 07/07/20 04:00 98.3 59 16 128/68 (88) 100 07/07/20 04:00 Mechanical Ventilator 07/07/20 03:38 49 07/07/20 03:00 61 16 30 07/07/20 00:00 Mechanical Ventilator 07/07/20 00:00 98.8 60 16 119/51 (73) 100 07/06/20 23:31 62 07/06/20 22:50 52 13 30 07/06/20 20:00 30 07/06/20 20:00 Mechanical Ventilator 07/06/20 20:00 98.8 66 18 128/71 (90) 100 07/06/20 19:25 64 16 30 07/06/20 19:01 65 07/06/20 16:00 30 07/06/20 16:00 99.5 64 15 126/63 (84) 100 07/06/20 16:00 Mechanical Ventilator 07/06/20 15:22 68 07/06/20 15:10 66 17 30 Intake and Output 07/06/20 07/07/20 19:00 07:00 Intake Total 1075 ml 1040 ml Output Total 1200 ml 400 ml Balance -125 ml 640 ml Intake Free Water 240 ml 100 ml IV Total 55 ml 60 ml Tube Feeding 780 ml 780 ml Blood Product 100 ml Output Urine Total 1200 ml 400 ml Laboratory Tests 07/06/20 18:16: POC Whole Blood Glucose [Pending] 07/07/20 03:10: White Blood Count 9.1, Red Blood Count 2.86L, Hemoglobin 8.4L, Hematocrit 26.0L, Mean Corpuscular Volume 91, Mean Corpuscular Hemoglobin 29.5, Mean Corpuscular Hemoglobin Concent 32.4, Red Cell Distribution Width 14.3, Platelet Count 199, Mean Platelet Volume 8.7, Neutrophils (%) (Auto) 66.5, Lymphocytes (%) (Auto) 24.6, Monocytes (%) (Auto) 6.8, Eosinophils (%) (Auto) 1.6, Basophils (%) (Auto) 0.5, Sodium Level 133L, Potassium Level 4.8, Chloride Level 102, Carbon Dioxide Level 28, Anion Gap 3L, Blood Urea Nitrogen 26H, Creatinine 0.6, Estimat Glomerular Filtration Rate > 60, Glucose Level 98, Calcium Level 9.1 07/07/20 05:02: POC Whole Blood Glucose 102 07/07/20 11:04: POC Whole Blood Glucose 96 Height (Feet): 5 Height (Inches): 4.00 Weight (Pounds): 145 General Appearance: lethargic EENT: normal ENT inspection Neck: normal alignment Cardiovascular: normal peripheral pulses, normal rate, regular rhythm Respiratory/Chest: chest wall non-tender, lungs clear, normal breath sounds Abdomen: normal bowel sounds, non tender, soft Extremities: normal inspection Edema: no edema noted Arm (L), no edema noted Arm (R), no edema noted Leg (L), no edema noted Leg (R), no edema noted Pedal (L), no edema noted Pedal (R), no edema noted Generalized Neurologic: motor weakness Skin: normal pigmentation, warm/dry Assessment/Plan Problem List: (1) Pneumonia ICD Codes: J18.9 - Pneumonia, unspecified organism SNOMED: 046882049 (2) Tracheostomy dependence ICD Codes: Z93.0 - Tracheostomy status SNOMED: 165619492 (3) Chronic respiratory failure ICD Codes: J96.10 - Chronic respiratory failure, unspecified whether with hypoxia or hypercapnia SNOMED: 98154394 (4) Sepsis ICD Codes: A41.9 - Sepsis, unspecified organism SNOMED: 64651552 (5) Anemia ICD Codes: D64.9 - Anemia, unspecified SNOMED: 779120345 Status: unchanged Assessment/Plan: vent abx cbc bmp am ltach Tony Ruiz DO Jul 07, 2020 13:18
--- NOTE | 2020-07-07 13:46 | NUR ---
DISCHARGE PLANNING: NOTE CM ORDER NOTED FOR [facility]. CLINICALS FAXED TO [facility] Addendum: 07/07/20 at 1509 by Leslie Gresham CM FAX CONFIRMATION RECEIVED. [facility] TO REVIEW FOR ACCEPTANCE. CM WILL F/U
--- NOTE | 2020-07-07 14:03 | Infectious Diseases Prog Note ---
Assessment/Plan Assessment/Plan IMPRESSION: Sepsis improving Pneumonia with Proteus & Serratia Acinetobacter UTI. anemia, chronic respiratory failure, COPD, diabetes mellitus, hypertension, hypothyroidism, pressure ulcer, hypernatremia and dehydration. VRE carrier RECOMMENDATION: We will continue with cefepime & Minocycline Add colistin inhaler Will f/u CXR Subjective ROS Limited/Unobtainable: Yes Constitutional: Denies: fever Allergies: Coded Allergies: No Known Allergies (Unverified , 11/22/15) Objective Last 24 Hour Vital Signs Date Time Temp Pulse Resp B/P (MAP) Pulse Ox O2 Delivery O2 Flow Rate FiO2 07/07/20 12:00 98.4 51 15 117/60 (79) 100 07/07/20 12:00 30 07/07/20 12:00 47 07/07/20 12:00 Mechanical Ventilator 07/07/20 11:20 57 12 30 07/07/20 08:00 57 07/07/20 08:00 30 07/07/20 08:00 98.2 63 15 110/56 (74) 100 07/07/20 08:00 Mechanical Ventilator 07/07/20 07:20 62 17 30 07/07/20 04:00 30 07/07/20 04:00 98.3 59 16 128/68 (88) 100 07/07/20 04:00 Mechanical Ventilator 07/07/20 03:38 49 07/07/20 03:00 61 16 30 07/07/20 00:00 Mechanical Ventilator 07/07/20 00:00 98.8 60 16 119/51 (73) 100 07/06/20 23:31 62 07/06/20 22:50 52 13 30 07/06/20 20:00 30 07/06/20 20:00 Mechanical Ventilator 07/06/20 20:00 98.8 66 18 128/71 (90) 100 07/06/20 19:25 64 16 30 07/06/20 19:01 65 07/06/20 16:00 30 07/06/20 16:00 99.5 64 15 126/63 (84) 100 07/06/20 16:00 Mechanical Ventilator 07/06/20 15:22 68 07/06/20 15:10 66 17 30 Height (Feet): 5 Height (Inches): 4.00 Weight (Pounds): 145 HEENT: status post trach Respiratory/Chest: other - on ventilator Cardiovascular: bradycardia Abdomen: soft, non tender, other - GT feeding Skin: ulcers Neurologic/Psychiatric: aphasia, other - Quadriplegia Microbiology Date/Time Source Procedure Growth Status 07/04/20 23:50 Sputum Gram Stain - Final Resulted 07/04/20 23:50 Sputum Culture - Preliminary Proteus Mirabilis Serratia Marcescens Resulted Laboratory Tests Test 07/06/20 18:16 07/07/20 03:10 07/07/20 05:02 07/07/20 11:04 POC Whole Blood Glucose Pending 102 MG/DL (74-106) 96 MG/DL (74-106) White Blood Count 9.1 K/UL (4.8-10.8) Red Blood Count 2.86 M/UL (4.20-5.40) L Hemoglobin 8.4 G/DL (12.0-16.0) L Hematocrit 26.0 % (37.0-47.0) L Mean Corpuscular Volume 91 FL (80-99) Mean Corpuscular Hemoglobin 29.5 PG (27.0-31.0) Mean Corpuscular Hemoglobin Concent 32.4 G/DL (32.0-36.0) Red Cell Distribution Width 14.3 % (11.6-14.8) Platelet Count 199 K/UL (150-450) Mean Platelet Volume 8.7 FL (6.5-10.1) Neutrophils (%) (Auto) 66.5 % (45.0-75.0) Lymphocytes (%) (Auto) 24.6 % (20.0-45.0) Monocytes (%) (Auto) 6.8 % (1.0-10.0) Eosinophils (%) (Auto) 1.6 % (0.0-3.0) Basophils (%) (Auto) 0.5 % (0.0-2.0) Sodium Level 133 MMOL/L (136-145) L Potassium Level 4.8 MMOL/L (3.5-5.1) Chloride Level 102 MMOL/L (98-107) Carbon Dioxide Level 28 MMOL/L (21-32) Anion Gap 3 mmol/L (5-15) L Blood Urea Nitrogen 26 mg/dL (7-18) H Creatinine 0.6 MG/DL (0.55-1.30) Estimat Glomerular Filtration Rate > 60 mL/min (>60) Glucose Level 98 MG/DL (74-106) Calcium Level 9.1 MG/DL (8.5-10.1) Current Medications Medications (Trade) Dose Ordered Sig/Alex Route PRN Reason Start Time Stop Time Status Last Admin Dose Admin Acetaminophen (Tylenol) 650 mg Q6H PRN GT FOR TEMP > 100.4 07/02/20 09:45 08/01/20 09:44 Acetaminophen (Tylenol) 650 mg Q6H PRN GT Mild Pain (Pain Scale 1-3) 07/02/20 10:00 08/01/20 09:59 Acetaminophen/ Hydrocodone Bitart (Belcher 5/325) 1 tab Q6H PRN GT Severe Pain (Pain Scale 7-10) 07/02/20 09:45 07/09/20 09:44 Amiodarone HCl (Cordarone) 200 mg DAILY GT 07/02/20 19:15 09/30/20 19:14 07/07/20 09:05 Ascorbic Acid (Vitamin C) 500 mg TWICE A DAY GT 07/02/20 18:00 08/01/20 17:59 07/07/20 08:57 Cefepime HCl 1 gm/ Dextrose 55 ml @ 110 mls/hr Q24H IVPB 07/07/20 09:00 07/14/20 08:59 07/07/20 08:56 Dextrose (Dextrose 50%) 25 ml Q30M PRN IV Hypoglycemia 07/02/20 09:45 09/30/20 09:44 Dextrose (Dextrose 50%) 50 ml Q30M PRN IV Hypoglycemia 07/02/20 09:45 09/30/20 09:44 Heparin Sodium (Porcine) (Heparin 5000 units/ml) 5,000 units EVERY 12 HOURS SUBQ 07/02/20 21:00 08/16/20 20:59 07/07/20 08:57 Insulin Aspart (NovoLOG) Q6HR SUBQ 07/02/20 12:00 09/30/20 11:59 07/04/20 06:26 Iron Sucrose 100 mg/Sodium Chloride 60 ml @ 240 mls/hr BEDTIME IV 07/03/20 21:00 07/07/20 21:14 07/06/20 20:44 Lansoprazole (Prevacid) 30 mg BID GT 07/05/20 18:00 08/03/20 08:59 07/07/20 08:57 Levothyroxine Sodium (Synthroid) 50 mcg DAILY IV 07/04/20 09:00 08/03/20 08:59 07/07/20 08:58 Minocycline HCl (Minocin) 100 mg Q12HR ORAL 07/05/20 21:00 07/12/20 20:59 07/07/20 08:57 Multivitamins (Multivitamins W/ Minerals 15ml Liquid) 15 ml DAILY GT 07/03/20 09:00 08/02/20 08:59 07/07/20 08:57 Ondansetron HCl (Zofran) 4 mg Q6H PRN IVP Nausea & Vomiting 07/02/20 09:45 08/01/20 09:44 Zinc Sulfate (Zinc Sulfate) 220 mg DAILY GT 07/03/20 09:00 10/01/20 08:59 07/07/20 08:57 Mahesh Nicole MD Jul 07, 2020 14:03
--- NOTE | 2020-07-07 14:14 | Diagnostic Imaging Report ---
Indication: Shortness of breath Technique: One view of the chest Comparison: 07/01/2020 Findings: Patient is rotated to the left. There is some atelectasis at the left lung base there is a tracheostomy. The heart size is normal Impression: Left basilar atelectasis No definite acute process otherwise
[2020-07-07] MEDS: Colistin for inhalation INH SCH ×2 (14:50→23:33)
--- NOTE | 2020-07-07 15:26 | Surgery Progress Note ---
Surgery Progress Note Subjective Additional Comments labs stable cxr noted no acute events comfortable Objective Last 24 Hour Vital Signs Date Time Temp Pulse Resp B/P (MAP) Pulse Ox O2 Delivery O2 Flow Rate FiO2 07/07/20 14:50 53 16 100 Mechanical Ventilator 30 54 12 100 07/07/20 12:00 98.4 51 15 117/60 (79) 100 07/07/20 12:00 30 07/07/20 12:00 47 07/07/20 12:00 Mechanical Ventilator 07/07/20 11:20 57 12 30 07/07/20 08:00 57 07/07/20 08:00 30 07/07/20 08:00 98.2 63 15 110/56 (74) 100 07/07/20 08:00 Mechanical Ventilator 07/07/20 07:20 62 17 30 07/07/20 04:00 30 07/07/20 04:00 98.3 59 16 128/68 (88) 100 07/07/20 04:00 Mechanical Ventilator 07/07/20 03:38 49 07/07/20 03:00 61 16 30 07/07/20 00:00 Mechanical Ventilator 07/07/20 00:00 98.8 60 16 119/51 (73) 100 07/06/20 23:31 62 07/06/20 22:50 52 13 30 07/06/20 20:00 30 07/06/20 20:00 Mechanical Ventilator 07/06/20 20:00 98.8 66 18 128/71 (90) 100 07/06/20 19:25 64 16 30 07/06/20 19:01 65 07/06/20 16:00 30 07/06/20 16:00 99.5 64 15 126/63 (84) 100 07/06/20 16:00 Mechanical Ventilator I&O Intake and Output 07/06/20 07/07/20 19:00 07:00 Intake Total 1075 ml 1040 ml Output Total 1200 ml 400 ml Balance -125 ml 640 ml Intake Free Water 240 ml 100 ml IV Total 55 ml 60 ml Tube Feeding 780 ml 780 ml Blood Product 100 ml Output Urine Total 1200 ml 400 ml Dressing: saturated Cardiovascular: RSR Respiratory: decreased breath sounds Abdomen: non-tender, present bowel sounds Extremities: no tenderness, no cyanosis Laboratory Tests Test 07/06/20 18:16 07/07/20 03:10 07/07/20 05:02 07/07/20 11:04 POC Whole Blood Glucose Pending 102 MG/DL (74-106) 96 MG/DL (74-106) White Blood Count 9.1 K/UL (4.8-10.8) Red Blood Count 2.86 M/UL (4.20-5.40) L Hemoglobin 8.4 G/DL (12.0-16.0) L Hematocrit 26.0 % (37.0-47.0) L Mean Corpuscular Volume 91 FL (80-99) Mean Corpuscular Hemoglobin 29.5 PG (27.0-31.0) Mean Corpuscular Hemoglobin Concent 32.4 G/DL (32.0-36.0) Red Cell Distribution Width 14.3 % (11.6-14.8) Platelet Count 199 K/UL (150-450) Mean Platelet Volume 8.7 FL (6.5-10.1) Neutrophils (%) (Auto) 66.5 % (45.0-75.0) Lymphocytes (%) (Auto) 24.6 % (20.0-45.0) Monocytes (%) (Auto) 6.8 % (1.0-10.0) Eosinophils (%) (Auto) 1.6 % (0.0-3.0) Basophils (%) (Auto) 0.5 % (0.0-2.0) Sodium Level 133 MMOL/L (136-145) L Potassium Level 4.8 MMOL/L (3.5-5.1) Chloride Level 102 MMOL/L (98-107) Carbon Dioxide Level 28 MMOL/L (21-32) Anion Gap 3 mmol/L (5-15) L Blood Urea Nitrogen 26 mg/dL (7-18) H Creatinine 0.6 MG/DL (0.55-1.30) Estimat Glomerular Filtration Rate > 60 mL/min (>60) Glucose Level 98 MG/DL (74-106) Calcium Level 9.1 MG/DL (8.5-10.1) Plan Problems: (1) Dehydration (2) Hypernatremia (3) Pneumonia (4) Protein calorie malnutrition Assessment & Plan: bmi 25 alb 2.1 wounds with granulation tissue cont tf as tolerated DAILY ESTIMATED NEEDS: Needs based on Advanced wound, critical care/ 58kg abw 25-30 kcals/kg 0329-7994 total kcals 1.5-2.0 g protein/kg 87-116 g total protein 25-30 mL/kg 4237-2677 total fluid mLs NUTRITION DIAGNOSIS: * Increased kcal/prot needs R/T wound healing as evidenced by pt * Swallowing difficulty R/T dysphagia, h/o Parkinson's disease as evidenced by pt on pureed texture diet [employer], 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 CURRENT TF:Glucerna 1.2 @ 65ml/hr x 20 hrs ENTERAL NUTRITION RECOMMENDATIONS: Glucerna 1.2 @ 70ml/hr x 20 hrs to provide 1400ml, 1680kcal, 84g prot, 1127ml free water * Increase goal rate to 70ml/hr x 20 hrs to better meet est needs * Add KEVIN BID via PEG for wound healing (+ additional 5g prot, TF + Kevin BID will provide 100% est prot needs) * HOB over 30 degrees/ water flush per MD ADDITIONAL RECOMMENDATIONS: * Calibrated bedscale wt for accurate CBW * Wound healing: continue Vit C and ZnSO4 add Kevin BID via PEG * Monitor lytes, replete as needed ( low phos 1.9) * Monitor BGs w/ TF- cont carb controlled diet (5) Failure to thrive (child) (6) Tracheostomy dependence Assessment & Plan: trach stable dressings changed no acute intervention (7) Chronic respiratory failure (8) Hypothyroidism (9) Pyelonephritis (10) Sacral decubitus ulcer Assessment & Plan: Pt presented on admission with full thickness Stage 4 sacral pressure injury. Base of wound has tissue viable. (L)3cm x (W)3.5cm x 3cm deep. Scattered areas of maceration along borders. Mixed pink epithelial and hyperpigmentation periwound. Additionally two small wounds noted to R and L buttocks within area of hyperpigmentation. R and L heels are both soft but easily blanchable.No other skin concerns noted. left ear with abrasion Tx.Plan: Cleanse sacral wound with Saline. Apply Therahoney gauze packing. Apply Moisture Barrier paste periwound. Cover with Optifoam drsg. Change every 1 days and prn. Apply Cavilon Skin Barrier to both heels. Cover each heel with Optifoam drsg. Change every 7 days and prn. Apply therahoney to left ear and cover with foam dressings. change q3 days APM/YOLY Mattress overlay. Reposition at least every 2hours or as tolerated. Off-load heels with pillow. (11) Sepsis (12) UTI (urinary tract infection) (13) Anemia (14) Dysphagia (15) Hypoalbuminemia (16) Iron deficiency (17) At high risk for aspiration (18) Parkinson disease (19) Dementia (20) Elevated CEA (21) Paroxysmal A-fib (22) Pancytopenia Holland Petty Jul 07, 2020 15:26
[2020-07-07 16:00] VITALS: BP 117/53
--- NOTE | 2020-07-07 18:58 | NUR ---
RESPIRATORY NOTE: Received pt on VOL SIMV 12, 450VT, PS 12, PEEP +5, 30%. Pt is trach-dependent w/ a Cuffed, Portex 7 tube. Pt awake/obtunded. B/S maida. rhonchi, sxn small amounts of thick, pale-yellow to gray-yellow secretions. Vent plugged into red outlet, ambubag at bedside. Pt resting comfortably, in no apparent distress at this time. Will continue plan of care.
--- NOTE | 2020-07-07 19:20 | NUR ---
NURSE NOTES: Received pt from CRISTY Bui. Pt is lying in bed, asleep, not in distress. Vitals are stable. Trach to vent tolerating the settings with O2 saturation of 100%. Gtube is patent and intact running Glucerna 1.2 @ 70cc/hr. peripheral IV @ right hand 20G. patent and intact. Mansfield catheter is intact draining yellowish urine. Bed is locked and in lowest position, head of bed elevated, call light is within reached. Will continue to monitor pt. Will continue with the plan of care.
--- NOTE | 2020-07-07 19:21 | NUR ---
NURSE HAND-OFF REPORT: Important Events on Shift: Patient Status: Stable Diet: Glucerna 1.2 70 ml/hr Pending Orders: None Pending Results/Labs:None Pending MD notification:None Latest Vital Signs: Temperature 98.1 , Pulse 61 , B/P 117 /53 , Respiratory Rate 18 , O2 SAT 100 , Mechanical Ventilator, O2 Flow Rate . Vital Sign Comment: Stable EKG Rhythm: Sinus Rhythm Rhythm change?: N MD Notified?: - MD Response: Latest [place] Fall Score: 70 Fall Risk: High Risk Safety Measures: Call light Within Reach, Bed Alarm Zone 1, Side Rails Side Rails x3, Bed position Low and Locked. Fall Precautions: Yellow Socks Report given to CRISTY Singleton.
[2020-07-07 20:00] VITALS: BP 126/63
[2020-07-07] MEDS: Iron Sucrose 100 MG in NS 55 ML IV SCH (21:02)
[2020-07-08] VITALS: BP 113/58
--- NOTE | 2020-07-08 01:00 | NUR ---
NURSE NOTES: Pt is sleeping, comfortable, not in distress, SB-SR in the monitor. Pt is given sponge bath, repositioned and suctioned. Tolerating current vent setting, saturating at 98-100%. GT intact. no residue. Will continue to monitor pt.
[2020-07-08 04:00] VITALS: BP 125/65
[2020-07-08] MEDS: NovoLOG Insulin Flexpen SUBQ SCH ×4 (05:45→18:00)
[2020-07-08 06:13] LABS: BASOPHILS % (AUTO) 0.5 % (0.0-2.0); EOSINOPHILS % (AUTO) 1.6 % (0.0-3.0); HEMATOCRIT 26.5 % (37.0-47.0); HEMOGLOBIN 8.5 G/DL (12.0-16.0); LYMPHOCYTES % (AUTO) 22.3 % (20.0-45.0); MEAN CORPUSCULAR VOLUME 92 FL (80-99); MONOCYTES % (AUTO) 5.9 % (1.0-10.0); NEUTROPHILS % (AUTO) 69.7 % (45.0-75.0); PLATELET COUNT 215 K/UL (150-450); RED BLOOD COUNT 2.89 M/UL (4.20-5.40); RED CELL DISTRIBUTION WIDTH 15.1 % (11.6-14.8); WHITE BLOOD COUNT 9.5 K/UL (4.8-10.8)
[2020-07-08 06:45] LABS: ALANINE AMINOTRANSFERASE 25 U/L (12-78); ALBUMIN/GLOBULIN RATIO 0.4 (1.0-2.7); ALKALINE PHOSPHATASE 174 U/L (46-116); ANION GAP 7 mmol/L (5-15); ASPARTATE AMINO TRANSFERASE 21 U/L (15-37); BILIRUBIN,TOTAL 0.3 MG/DL (0.2-1.0); BLOOD UREA NITROGEN 28 mg/dL (7-18); CALCIUM 9.1 MG/DL (8.5-10.1); CARBON DIOXIDE 25 MMOL/L (21-32); CHLORIDE 102 MMOL/L (98-107); CREATININE 0.5 MG/DL (0.55-1.30); PHOSPHORUS 2.7 MG/DL (2.5-4.9); POTASSIUM 4.8 MMOL/L (3.5-5.1); SODIUM 134 MMOL/L (136-145)
--- NOTE | 2020-07-08 07:08 | NUR ---
NURSE HAND-OFF REPORT: Important Events on Shift: Sinus Frank @ 48 Patient Status: stable Diet: Glucerna 1.2 Pending Orders: N Pending Results/Labs:N Pending MD notification: Latest Vital Signs: Temperature 98.0 , Pulse 57 , B/P 125 /65 , Respiratory Rate 21 , O2 SAT 100 , Mechanical Ventilator, O2 Flow Rate . Vital Sign Comment: stable EKG Rhythm: Sinus Rhythm Rhythm change?: N MD Notified?: - MD Response: Latest [place] Fall Score: 70 Fall Risk: High Risk Safety Measures: Call light Within Reach, Bed Alarm Zone 1, Side Rails Side Rails x3, Bed position Low and Locked. Fall Precautions: Yellow Socks Report given to CRISTY Bui.
--- NOTE | 2020-07-08 07:17 | NUR ---
NURSE NOTES: Received report from CRISTY Singleton. Patient is resting in bed, in stable condition. No s/sx of SOB, breathing is even and unlabored, vent settings are as ordered. Patient is nonverbal, observed no presence of pain or discomfort at this time. Bed is in lowest position, brakes engaged. Call light is kept within easy reach. Will continue to monitor patient.
[2020-07-08 08:00] VITALS: BP 108/58
--- NOTE | 2020-07-08 08:05 | Hematology/Onc Progress Note ---
Assessment/Plan Assessment/Plan Assessment and Recommendations # Anemia of chronic disease (or of iron deficiency) due to underlying chronic medical issues, multifactorial --> Anemia workup has been ordered --> No evidence of hemolysis is noted, peripheral smear has been reviewed. --> Hgb goal >7. Transfuse prn. --> Iron iv has been started x 5 days --> Medications have been reviewed --> gb 9-->8.4->8.6-->8.4->8.5 # Right breast calcifications --> does not have a breast mass on exam --> f/u as outpatient with mammo as needed --> do not do a us breast here # Thrombocytopenia - potential causes multifactorial, evaluate liver and viral etiologies to begin, also could be related to underlying medications, no wimproved --> Hep panel and HIV prior negative -> plt 183->203->199 # Pna --> antibiotics per id, cefepime # Sepsis --> antibiotics per Infectious Disease. --> ABX doxy/cefepime # Dehydration. --> PT and Dietary evaluation. # Hypertension --> Blood pressure control. # Dvt ppx heparin sq The timing of this note does not necessarily reflect the time of the patient was seen Greatly appreciate consultation! Subjective Constitutional: Denies: no symptoms, chills, fever, malaise, weakness, other HEENT: Denies: no symptoms, eye pain, blurred vision, tearing, double vision, ear pain, ear discharge, nose pain, nose congestion, throat pain, throat swelling, mouth pain, mouth swelling, other Cardiovascular: Denies: no symptoms, chest pain, edema, irregular heart rate, lightheadedness, palpitations, syncope, other Gastrointestinal/Abdominal: Denies: no symptoms, abdomen distended, abdominal pain, black stools, tarry stools, blood in stool, constipated, diarrhea, difficulty swallowing, nausea, poor appetite, poor fluid intake, rectal bleeding , vomiting, other Genitourinary: Denies: no symptoms, burning, discharge, frequency, flank pain, hematuria, incontinence, pain, urgency, other Neurologic/Psychiatric: Denies: no symptoms, anxiety, depressed, emotional problems, headache, numbness, paresthesia, pre-existing deficit, seizure, tingling, tremors, weakness, other Allergies: Coded Allergies: No Known Allergies (Unverified , 11/22/15) Subjective 07/06 no events, is comfortable, dw daughter again last night, no breast mass palpated 07/07 on vent, glucerna, labs noted, no bleeding, imaging reviewed 07/08 on vent, nv, with gtube feeds, no bleeding, dw rn Objective Objective Current Medications Medications (Trade) Dose Ordered Sig/Alex Route PRN Reason Start Time Stop Time Status Last Admin Dose Admin Acetaminophen (Tylenol) 650 mg Q6H PRN GT FOR TEMP > 100.4 07/02/20 09:45 08/01/20 09:44 Acetaminophen (Tylenol) 650 mg Q6H PRN GT Mild Pain (Pain Scale 1-3) 07/02/20 10:00 08/01/20 09:59 Acetaminophen/ Hydrocodone Bitart ([place] 5/325) 1 tab Q6H PRN GT Severe Pain (Pain Scale 7-10) 07/02/20 09:45 07/09/20 09:44 Amiodarone HCl (Cordarone) 200 mg DAILY GT 07/02/20 19:15 09/30/20 19:14 07/07/20 09:05 Ascorbic Acid (Vitamin C) 500 mg TWICE A DAY GT 07/02/20 18:00 08/01/20 17:59 07/07/20 17:12 Cefepime HCl 1 gm/ Dextrose 55 ml @ 110 mls/hr Q24H IVPB 07/07/20 09:00 07/14/20 08:59 07/07/20 08:56 Colistimethate Sodium (Colistin *inhalation use only*) 75 mg Q12HR@10,22 INH 07/07/20 15:00 07/14/20 14:59 07/07/20 23:33 Dextrose (Dextrose 50%) 25 ml Q30M PRN IV Hypoglycemia 07/02/20 09:45 09/30/20 09:44 Dextrose (Dextrose 50%) 50 ml Q30M PRN IV Hypoglycemia 07/02/20 09:45 09/30/20 09:44 Heparin Sodium (Porcine) (Heparin 5000 units/ml) 5,000 units EVERY 12 HOURS SUBQ 07/02/20 21:00 08/16/20 20:59 07/07/20 21:02 Insulin Aspart (NovoLOG) Q6HR SUBQ 07/02/20 12:00 09/30/20 11:59 07/04/20 06:26 Lansoprazole (Prevacid) 30 mg BID GT 07/05/20 18:00 08/03/20 08:59 07/07/20 17:12 Levothyroxine Sodium (Synthroid) 50 mcg DAILY IV 07/04/20 09:00 08/03/20 08:59 07/07/20 08:58 Minocycline HCl (Minocin) 100 mg Q12HR ORAL 07/05/20 21:00 07/12/20 20:59 07/07/20 21:02 Multivitamins (Multivitamins W/ Minerals 15ml Liquid) 15 ml DAILY GT 07/03/20 09:00 08/02/20 08:59 07/07/20 08:57 Ondansetron HCl (Zofran) 4 mg Q6H PRN IVP Nausea & Vomiting 07/02/20 09:45 08/01/20 09:44 Zinc Sulfate (Zinc Sulfate) 220 mg DAILY GT 07/03/20 09:00 10/01/20 08:59 07/07/20 08:57 Last 24 Hour Vital Signs Date Time Temp Pulse Resp B/P (MAP) Pulse Ox O2 Delivery O2 Flow Rate FiO2 07/08/20 07:16 48 12 30 07/08/20 04:00 Mechanical Ventilator 07/08/20 04:00 98.0 57 21 125/65 (85) 100 07/08/20 04:00 30 07/08/20 04:00 63 07/08/20 03:00 51 13 30 07/08/20 00:00 Mechanical Ventilator 07/08/20 00:00 98.7 57 13 113/58 (76) 100 07/08/20 00:00 56 07/07/20 23:37 55 16 100 Mechanical Ventilator 30 56 16 30 07/07/20 20:00 30 07/07/20 20:00 98.6 56 16 126/63 (84) 100 07/07/20 20:00 Mechanical Ventilator 07/07/20 20:00 62 07/07/20 18:55 61 18 30 07/07/20 16:00 98.1 61 15 117/53 (74) 100 07/07/20 16:00 30 07/07/20 16:00 Mechanical Ventilator 07/07/20 16:00 60 07/07/20 14:50 53 16 100 Mechanical Ventilator 30 54 12 100 07/07/20 12:00 98.4 51 15 117/60 (79) 100 07/07/20 12:00 30 07/07/20 12:00 47 07/07/20 12:00 Mechanical Ventilator 07/07/20 11:20 57 12 30 07/07/20 08:00 57 07/07/20 08:00 30 07/07/20 08:00 98.2 63 15 110/56 (74) 100 07/07/20 08:00 Mechanical Ventilator 07/07/20 07:20 62 17 30 07/07/20 04:00 30 07/07/20 04:00 98.3 59 16 128/68 (88) 100 07/07/20 04:00 Mechanical Ventilator 07/07/20 03:38 49 07/07/20 03:00 61 16 30 07/07/20 00:00 Mechanical Ventilator 07/07/20 00:00 98.8 60 16 119/51 (73) 100 07/06/20 23:31 62 07/06/20 22:50 52 13 30 07/06/20 20:00 30 07/06/20 20:00 Mechanical Ventilator 07/06/20 20:00 98.8 66 18 128/71 (90) 100 07/06/20 19:25 64 16 30 07/06/20 19:01 65 07/06/20 16:00 30 07/06/20 16:00 99.5 64 15 126/63 (84) 100 07/06/20 16:00 Mechanical Ventilator 07/06/20 15:22 68 07/06/20 15:10 66 17 30 07/06/20 12:00 Mechanical Ventilator 07/06/20 12:00 61 07/06/20 12:00 30 07/06/20 11:59 99.0 62 16 122/64 (83) 100 07/06/20 11:20 62 19 30 Intake and Output 07/07/20 07/08/20 19:00 07:00 Intake Total 870 ml 970 ml Output Total 800 ml 1100 ml Balance 70 ml -130 ml Intake Free Water 200 ml IV Total 55 ml Tube Feeding 815 ml 770 ml Output Urine Total 800 ml 1100 ml # Bowel Movements 1 1 Labs Test 07/05/20 17:00 07/05/20 17:38 07/05/20 23:40 07/06/20 02:50 Stool Occult Blood Negative (NEGATIVE) POC Whole Blood Glucose 99 MG/DL (74-106) 108 MG/DL (74-106) White Blood Count 9.2 K/UL (4.8-10.8) Red Blood Count 2.94 M/UL (4.20-5.40) Hemoglobin 8.6 G/DL (12.0-16.0) Hematocrit 26.5 % (37.0-47.0) Mean Corpuscular Volume 90 FL (80-99) Mean Corpuscular Hemoglobin 29.1 PG (27.0-31.0) Mean Corpuscular Hemoglobin Concent 32.3 G/DL (32.0-36.0) Red Cell Distribution Width 14.3 % (11.6-14.8) Platelet Count 203 K/UL (150-450) Mean Platelet Volume 8.3 FL (6.5-10.1) Neutrophils (%) (Auto) 71.8 % (45.0-75.0) Lymphocytes (%) (Auto) 20.6 % (20.0-45.0) Monocytes (%) (Auto) 5.9 % (1.0-10.0) Eosinophils (%) (Auto) 1.3 % (0.0-3.0) Basophils (%) (Auto) 0.4 % (0.0-2.0) Sodium Level 136 MMOL/L (136-145) Potassium Level 4.7 MMOL/L (3.5-5.1) Chloride Level 103 MMOL/L (98-107) Carbon Dioxide Level 23 MMOL/L (21-32) Anion Gap 10 mmol/L (5-15) Blood Urea Nitrogen 27 mg/dL (7-18) Creatinine 0.6 MG/DL (0.55-1.30) Estimat Glomerular Filtration Rate > 60 mL/min (>60) Glucose Level 117 MG/DL (74-106) Uric Acid 3.0 MG/DL (2.6-7.2) Calcium Level 9.0 MG/DL (8.5-10.1) Phosphorus Level 2.2 MG/DL (2.5-4.9) Magnesium Level 1.8 MG/DL (1.8-2.4) Total Bilirubin 0.3 MG/DL (0.2-1.0) Aspartate Amino Transf (AST/SGOT) 23 U/L (15-37) Alanine Aminotransferase (ALT/SGPT) 25 U/L (12-78) Alkaline Phosphatase 157 U/L (46-116) C-Reactive Protein, Quantitative 3.5 mg/dL (0.00-0.90) Pro-B-Type Natriuretic Peptide 819 pg/mL (0-125) Total Protein 7.0 G/DL (6.4-8.2) Albumin 2.1 G/DL (3.4-5.0) Globulin 4.9 g/dL Albumin/Globulin Ratio 0.4 (1.0-2.7) Test 07/06/20 05:27 07/06/20 11:03 07/06/20 18:16 07/07/20 03:10 POC Whole Blood Glucose 107 MG/DL (74-106) 103 MG/DL (74-106) White Blood Count 9.1 K/UL (4.8-10.8) Red Blood Count 2.86 M/UL (4.20-5.40) Hemoglobin 8.4 G/DL (12.0-16.0) Hematocrit 26.0 % (37.0-47.0) Mean Corpuscular Volume 91 FL (80-99) Mean Corpuscular Hemoglobin 29.5 PG (27.0-31.0) Mean Corpuscular Hemoglobin Concent 32.4 G/DL (32.0-36.0) Red Cell Distribution Width 14.3 % (11.6-14.8) Platelet Count 199 K/UL (150-450) Mean Platelet Volume 8.7 FL (6.5-10.1) Neutrophils (%) (Auto) 66.5 % (45.0-75.0) Lymphocytes (%) (Auto) 24.6 % (20.0-45.0) Monocytes (%) (Auto) 6.8 % (1.0-10.0) Eosinophils (%) (Auto) 1.6 % (0.0-3.0) Basophils (%) (Auto) 0.5 % (0.0-2.0) Sodium Level 133 MMOL/L (136-145) Potassium Level 4.8 MMOL/L (3.5-5.1) Chloride Level 102 MMOL/L (98-107) Carbon Dioxide Level 28 MMOL/L (21-32) Anion Gap 3 mmol/L (5-15) Blood Urea Nitrogen 26 mg/dL (7-18) Creatinine 0.6 MG/DL (0.55-1.30) Estimat Glomerular Filtration Rate > 60 mL/min (>60) Glucose Level 98 MG/DL (74-106) Calcium Level 9.1 MG/DL (8.5-10.1) Test 07/07/20 05:02 07/07/20 11:04 07/07/20 16:43 07/07/20 23:52 POC Whole Blood Glucose 102 MG/DL (74-106) 96 MG/DL (74-106) 100 MG/DL (74-106) 101 MG/DL (74-106) Test 07/08/20 04:15 07/08/20 05:24 White Blood Count 9.5 K/UL (4.8-10.8) Red Blood Count 2.89 M/UL (4.20-5.40) Hemoglobin 8.5 G/DL (12.0-16.0) Hematocrit 26.5 % (37.0-47.0) Mean Corpuscular Volume 92 FL (80-99) Mean Corpuscular Hemoglobin 29.3 PG (27.0-31.0) Mean Corpuscular Hemoglobin Concent 32.0 G/DL (32.0-36.0) Red Cell Distribution Width 15.1 % (11.6-14.8) Platelet Count 215 K/UL (150-450) Mean Platelet Volume 8.3 FL (6.5-10.1) Neutrophils (%) (Auto) 69.7 % (45.0-75.0) Lymphocytes (%) (Auto) 22.3 % (20.0-45.0) Monocytes (%) (Auto) 5.9 % (1.0-10.0) Eosinophils (%) (Auto) 1.6 % (0.0-3.0) Basophils (%) (Auto) 0.5 % (0.0-2.0) Sodium Level 134 MMOL/L (136-145) Potassium Level 4.8 MMOL/L (3.5-5.1) Chloride Level 102 MMOL/L (98-107) Carbon Dioxide Level 25 MMOL/L (21-32) Anion Gap 7 mmol/L (5-15) Blood Urea Nitrogen 28 mg/dL (7-18) Creatinine 0.5 MG/DL (0.55-1.30) Estimat Glomerular Filtration Rate > 60 mL/min (>60) Glucose Level 102 MG/DL (74-106) Osmolality 291 mOsm/kg (297-317) Uric Acid 3.1 MG/DL (2.6-7.2) Calcium Level 9.1 MG/DL (8.5-10.1) Phosphorus Level 2.7 MG/DL (2.5-4.9) Magnesium Level 1.9 MG/DL (1.8-2.4) Total Bilirubin 0.3 MG/DL (0.2-1.0) Aspartate Amino Transf (AST/SGOT) 21 U/L (15-37) Alanine Aminotransferase (ALT/SGPT) 25 U/L (12-78) Alkaline Phosphatase 174 U/L (46-116) C-Reactive Protein, Quantitative 5.3 mg/dL (0.00-0.90) Pro-B-Type Natriuretic Peptide 408 pg/mL (0-125) Total Protein 6.8 G/DL (6.4-8.2) Albumin 2.0 G/DL (3.4-5.0) Globulin 4.8 g/dL Albumin/Globulin Ratio 0.4 (1.0-2.7) POC Whole Blood Glucose 89 MG/DL (74-106) Height (Feet): 5 Height (Inches): 4.00 Weight (Pounds): 145 Objective PHYSICAL EXAMINATION: GENERAL: Slightly confused in bed, oriented x1, CARDIOVASCULAR: No murmur. BREAST: no breast masses palpated LUNGS: Poor air exchange.+vent ABDOMEN: Bowel sounds distant.++peg EXTREMITIES: No cyanosis, clubbing, or edema NEUROLOGIC: Neck, weakness.bedbound++ Alan Cazares MD Jul 08, 2020 08:05
[2020-07-08] MEDS ORDERED: Tubing IV Secondary IV ONE ×2 (08:56→19:46)
--- NOTE | 2020-07-08 09:06 | NUR ---
CASE MANAGEMENT: REVIEW 07/08/2020 SI:SEPSIS. VS: T 98 HR 57 RR 21 B/P 125/65 SATS 100% ON MECH VENT FIO2 30 LABS: NA 134 BUN 28 CR 0.5 ALP 174 CRP 5.3 BNP 408 IS:PREVACID GT BID CORDARONE GT QD MINOCIN PO Q12H COLISTIN INH Q12H CEFEPIME IV Q24H INSULIN ASPART SUBQ Q6H SDU
[2020-07-08] MEDS: Cefepime HCl 1 GM in D5W 55 ML IVPB SCH (09:23)
[2020-07-08] MEDS: Heparin 5000 units/ml inj SUBQ SCH (09:24)
[2020-07-08] MEDS: Amiodarone 200mg tab GT SCH (09:25)
[2020-07-08] MEDS: Multivitamins W/Minerals 15 ML UDC GT SCH (09:25)
[2020-07-08] MEDS: Ascorbic Acid 500mg tab GT SCH ×2 (09:25→18:00)
[2020-07-08] MEDS: Minocycline HCl 50mg cap ORAL SCH (09:25)
[2020-07-08] MEDS: Zinc Sulfate 220mg GT SCH (09:25)
--- NOTE | 2020-07-08 09:46 | General Progress Note ---
Subjective Constitutional: Reports: weakness Allergies: Coded Allergies: No Known Allergies (Unverified , 11/22/15) All Systems: reviewed and negative except above Subjective trach vent altered calm Objective Last 24 Hour Vital Signs Date Time Temp Pulse Resp B/P (MAP) Pulse Ox O2 Delivery O2 Flow Rate FiO2 07/08/20 07:16 48 12 30 07/08/20 04:00 Mechanical Ventilator 07/08/20 04:00 98.0 57 21 125/65 (85) 100 07/08/20 04:00 30 07/08/20 04:00 63 07/08/20 03:00 51 13 30 07/08/20 00:00 Mechanical Ventilator 07/08/20 00:00 98.7 57 13 113/58 (76) 100 07/08/20 00:00 56 07/07/20 23:37 55 16 100 Mechanical Ventilator 30 56 16 30 07/07/20 20:00 30 07/07/20 20:00 98.6 56 16 126/63 (84) 100 07/07/20 20:00 Mechanical Ventilator 07/07/20 20:00 62 07/07/20 18:55 61 18 30 07/07/20 16:00 98.1 61 15 117/53 (74) 100 07/07/20 16:00 30 07/07/20 16:00 Mechanical Ventilator 07/07/20 16:00 60 07/07/20 14:50 53 16 100 Mechanical Ventilator 30 54 12 100 07/07/20 12:00 98.4 51 15 117/60 (79) 100 07/07/20 12:00 30 07/07/20 12:00 47 07/07/20 12:00 Mechanical Ventilator 07/07/20 11:20 57 12 30 Intake and Output 07/07/20 07/08/20 19:00 07:00 Intake Total 870 ml 970 ml Output Total 800 ml 1100 ml Balance 70 ml -130 ml Intake Free Water 200 ml IV Total 55 ml Tube Feeding 815 ml 770 ml Output Urine Total 800 ml 1100 ml # Bowel Movements 1 1 Laboratory Tests 07/07/20 11:04: POC Whole Blood Glucose 96 07/07/20 16:43: POC Whole Blood Glucose 100 07/07/20 23:52: POC Whole Blood Glucose 101 07/08/20 04:15: White Blood Count 9.5, Red Blood Count 2.89L, Hemoglobin 8.5L, Hematocrit 26.5L, Mean Corpuscular Volume 92, Mean Corpuscular Hemoglobin 29.3, Mean Corpuscular Hemoglobin Concent 32.0, Red Cell Distribution Width 15.1H, Platelet Count 215, Mean Platelet Volume 8.3, Neutrophils (%) (Auto) 69.7, Lymphocytes (%) (Auto) 22.3, Monocytes (%) (Auto) 5.9, Eosinophils (%) (Auto) 1.6, Basophils (%) (Auto) 0.5, Sodium Level 134L, Potassium Level 4.8, Chloride Level 102, Carbon Dioxide Level 25, Anion Gap 7, Blood Urea Nitrogen 28H, Creatinine 0.5L, Estimat Glomerular Filtration Rate > 60, Glucose Level 102, Osmolality 291L, Uric Acid 3.1, Calcium Level 9.1, Phosphorus Level 2.7, Magnesium Level 1.9, Total Bilirubin 0.3, Aspartate Amino Transf (AST/SGOT) 21, Alanine Aminotransferase (ALT/SGPT) 25, Alkaline Phosphatase 174H, C-Reactive Protein, Quantitative 5.3H, Pro-B-Type Natriuretic Peptide 408H, Total Protein 6.8, Albumin 2.0L, Globulin 4.8, Albumin/Globulin Ratio 0.4L 07/08/20 05:24: POC Whole Blood Glucose 89 Height (Feet): 5 Height (Inches): 4.00 Weight (Pounds): 145 General Appearance: lethargic EENT: normal ENT inspection Neck: normal alignment Cardiovascular: normal peripheral pulses, normal rate, regular rhythm Respiratory/Chest: chest wall non-tender, lungs clear, normal breath sounds Abdomen: normal bowel sounds, non tender, soft Extremities: normal inspection Edema: no edema noted Arm (L), no edema noted Arm (R), no edema noted Leg (L), no edema noted Leg (R), no edema noted Pedal (L), no edema noted Pedal (R), no edema noted Generalized Neurologic: motor weakness Skin: normal pigmentation, warm/dry Assessment/Plan Problem List: (1) Pneumonia ICD Codes: J18.9 - Pneumonia, unspecified organism SNOMED: 080951401 (2) Tracheostomy dependence ICD Codes: Z93.0 - Tracheostomy status SNOMED: 408535298 (3) Chronic respiratory failure ICD Codes: J96.10 - Chronic respiratory failure, unspecified whether with hypoxia or hypercapnia SNOMED: 50281834 (4) Sepsis ICD Codes: A41.9 - Sepsis, unspecified organism SNOMED: 51846060 (5) Anemia ICD Codes: D64.9 - Anemia, unspecified SNOMED: 911608378 Status: unchanged Assessment/Plan: vent abx cbc bmp am ltach Toyn Ruiz DO Jul 08, 2020 09:46
--- NOTE | 2020-07-08 10:04 | Infectious Diseases Prog Note ---
Assessment/Plan Assessment/Plan IMPRESSION: Sepsis improving Pneumonia with Proteus & Serratia Acinetobacter UTI. anemia, chronic respiratory failure, COPD, diabetes mellitus, hypertension, hypothyroidism, pressure ulcer, hypernatremia and dehydration. VRE carrier RECOMMENDATION: Discontinue cefepime Continue Minocycline X 5 day Continue colistin inhaler X 6 days agree with discharge case was D/W RN Subjective ROS Limited/Unobtainable: Yes Constitutional: Denies: fever Allergies: Coded Allergies: No Known Allergies (Unverified , 11/22/15) Objective Last 24 Hour Vital Signs Date Time Temp Pulse Resp B/P (MAP) Pulse Ox O2 Delivery O2 Flow Rate FiO2 07/08/20 07:16 48 12 30 07/08/20 04:00 Mechanical Ventilator 07/08/20 04:00 98.0 57 21 125/65 (85) 100 07/08/20 04:00 30 07/08/20 04:00 63 07/08/20 03:00 51 13 30 07/08/20 00:00 Mechanical Ventilator 07/08/20 00:00 98.7 57 13 113/58 (76) 100 07/08/20 00:00 56 07/07/20 23:37 55 16 100 Mechanical Ventilator 30 56 16 30 07/07/20 20:00 30 07/07/20 20:00 98.6 56 16 126/63 (84) 100 07/07/20 20:00 Mechanical Ventilator 07/07/20 20:00 62 07/07/20 18:55 61 18 30 07/07/20 16:00 98.1 61 15 117/53 (74) 100 07/07/20 16:00 30 07/07/20 16:00 Mechanical Ventilator 07/07/20 16:00 60 07/07/20 14:50 53 16 100 Mechanical Ventilator 30 54 12 100 07/07/20 12:00 98.4 51 15 117/60 (79) 100 07/07/20 12:00 30 07/07/20 12:00 47 07/07/20 12:00 Mechanical Ventilator 07/07/20 11:20 57 12 30 Height (Feet): 5 Height (Inches): 4.00 Weight (Pounds): 145 HEENT: status post trach Respiratory/Chest: lungs clear, other - on ventilator Cardiovascular: bradycardia Abdomen: soft, non tender, other - GT feeding Neurologic/Psychiatric: unresponsiveness, aphasia Laboratory Tests Test 07/07/20 11:04 07/07/20 16:43 07/07/20 23:52 07/08/20 04:15 POC Whole Blood Glucose 96 MG/DL (74-106) 100 MG/DL (74-106) 101 MG/DL (74-106) White Blood Count 9.5 K/UL (4.8-10.8) Red Blood Count 2.89 M/UL (4.20-5.40) L Hemoglobin 8.5 G/DL (12.0-16.0) L Hematocrit 26.5 % (37.0-47.0) L Mean Corpuscular Volume 92 FL (80-99) Mean Corpuscular Hemoglobin 29.3 PG (27.0-31.0) Mean Corpuscular Hemoglobin Concent 32.0 G/DL (32.0-36.0) Red Cell Distribution Width 15.1 % (11.6-14.8) H Platelet Count 215 K/UL (150-450) Mean Platelet Volume 8.3 FL (6.5-10.1) Neutrophils (%) (Auto) 69.7 % (45.0-75.0) Lymphocytes (%) (Auto) 22.3 % (20.0-45.0) Monocytes (%) (Auto) 5.9 % (1.0-10.0) Eosinophils (%) (Auto) 1.6 % (0.0-3.0) Basophils (%) (Auto) 0.5 % (0.0-2.0) Sodium Level 134 MMOL/L (136-145) L Potassium Level 4.8 MMOL/L (3.5-5.1) Chloride Level 102 MMOL/L (98-107) Carbon Dioxide Level 25 MMOL/L (21-32) Anion Gap 7 mmol/L (5-15) Blood Urea Nitrogen 28 mg/dL (7-18) H Creatinine 0.5 MG/DL (0.55-1.30) L Estimat Glomerular Filtration Rate > 60 mL/min (>60) Glucose Level 102 MG/DL (74-106) Osmolality 291 mOsm/kg (297-317) L Uric Acid 3.1 MG/DL (2.6-7.2) Calcium Level 9.1 MG/DL (8.5-10.1) Phosphorus Level 2.7 MG/DL (2.5-4.9) Magnesium Level 1.9 MG/DL (1.8-2.4) Total Bilirubin 0.3 MG/DL (0.2-1.0) Aspartate Amino Transf (AST/SGOT) 21 U/L (15-37) Alanine Aminotransferase (ALT/SGPT) 25 U/L (12-78) Alkaline Phosphatase 174 U/L (46-116) H C-Reactive Protein, Quantitative 5.3 mg/dL (0.00-0.90) H Pro-B-Type Natriuretic Peptide 408 pg/mL (0-125) H Total Protein 6.8 G/DL (6.4-8.2) Albumin 2.0 G/DL (3.4-5.0) L Globulin 4.8 g/dL Albumin/Globulin Ratio 0.4 (1.0-2.7) L Test 07/08/20 05:24 POC Whole Blood Glucose 89 MG/DL (74-106) Current Medications Medications (Trade) Dose Ordered Sig/Alex Route PRN Reason Start Time Stop Time Status Last Admin Dose Admin Acetaminophen (Tylenol) 650 mg Q6H PRN GT FOR TEMP > 100.4 07/02/20 09:45 08/01/20 09:44 Acetaminophen (Tylenol) 650 mg Q6H PRN GT Mild Pain (Pain Scale 1-3) 07/02/20 10:00 08/01/20 09:59 Acetaminophen/ Hydrocodone Bitart ([place] 5/325) 1 tab Q6H PRN GT Severe Pain (Pain Scale 7-10) 07/02/20 09:45 07/09/20 09:44 Amiodarone HCl (Cordarone) 200 mg DAILY GT 07/02/20 19:15 09/30/20 19:14 07/08/20 09:25 Ascorbic Acid (Vitamin C) 500 mg TWICE A DAY GT 07/02/20 18:00 08/01/20 17:59 07/08/20 09:25 Cefepime HCl 1 gm/ Dextrose 55 ml @ 110 mls/hr Q24H IVPB 07/07/20 09:00 07/14/20 08:59 07/08/20 09:23 Colistimethate Sodium (Colistin *inhalation use only*) 75 mg Q12HR@10,22 INH 07/07/20 15:00 07/14/20 14:59 07/07/20 23:33 Dextrose (Dextrose 50%) 25 ml Q30M PRN IV Hypoglycemia 07/02/20 09:45 09/30/20 09:44 Dextrose (Dextrose 50%) 50 ml Q30M PRN IV Hypoglycemia 07/02/20 09:45 09/30/20 09:44 Heparin Sodium (Porcine) (Heparin 5000 units/ml) 5,000 units EVERY 12 HOURS SUBQ 07/02/20 21:00 08/16/20 20:59 07/08/20 09:24 Insulin Aspart (NovoLOG) Q6HR SUBQ 07/02/20 12:00 09/30/20 11:59 07/04/20 06:26 Lansoprazole (Prevacid) 30 mg BID GT 07/05/20 18:00 08/03/20 08:59 07/08/20 09:25 Levothyroxine Sodium (Synthroid) 50 mcg DAILY IV 07/04/20 09:00 08/03/20 08:59 07/08/20 09:26 Minocycline HCl (Minocin) 100 mg Q12HR ORAL 07/05/20 21:00 07/12/20 20:59 07/08/20 09:25 Multivitamins (Multivitamins W/ Minerals 15ml Liquid) 15 ml DAILY GT 07/03/20 09:00 08/02/20 08:59 07/08/20 09:25 Ondansetron HCl (Zofran) 4 mg Q6H PRN IVP Nausea & Vomiting 07/02/20 09:45 08/01/20 09:44 Zinc Sulfate (Zinc Sulfate) 220 mg DAILY GT 07/03/20 09:00 10/01/20 08:59 07/08/20 09:25 Mahesh Nicole MD Jul 08, 2020 10:04
--- NOTE | 2020-07-08 10:29 | Surgery Progress Note ---
Surgery Progress Note Subjective Additional Comments afebrile, HD stable improving tolerating diet Objective Last 24 Hour Vital Signs Date Time Temp Pulse Resp B/P (MAP) Pulse Ox O2 Delivery O2 Flow Rate FiO2 07/08/20 08:00 58 07/08/20 08:00 30 07/08/20 08:00 Mechanical Ventilator 07/08/20 08:00 98.2 58 15 108/58 (75) 100 07/08/20 07:16 48 12 30 07/08/20 04:00 Mechanical Ventilator 07/08/20 04:00 98.0 57 21 125/65 (85) 100 07/08/20 04:00 30 07/08/20 04:00 63 07/08/20 03:00 51 13 30 07/08/20 00:00 Mechanical Ventilator 07/08/20 00:00 98.7 57 13 113/58 (76) 100 07/08/20 00:00 56 07/07/20 23:37 55 16 100 Mechanical Ventilator 30 56 16 30 07/07/20 20:00 30 07/07/20 20:00 98.6 56 16 126/63 (84) 100 07/07/20 20:00 Mechanical Ventilator 07/07/20 20:00 62 07/07/20 18:55 61 18 30 07/07/20 16:00 98.1 61 15 117/53 (74) 100 07/07/20 16:00 30 07/07/20 16:00 Mechanical Ventilator 07/07/20 16:00 60 07/07/20 14:50 53 16 100 Mechanical Ventilator 30 54 12 100 07/07/20 12:00 98.4 51 15 117/60 (79) 100 07/07/20 12:00 30 07/07/20 12:00 47 07/07/20 12:00 Mechanical Ventilator 07/07/20 11:20 57 12 30 I&O Intake and Output 07/07/20 07/08/20 19:00 07:00 Intake Total 870 ml 970 ml Output Total 800 ml 1100 ml Balance 70 ml -130 ml Intake Free Water 200 ml IV Total 55 ml Tube Feeding 815 ml 770 ml Output Urine Total 800 ml 1100 ml # Bowel Movements 1 1 Dressing: saturated Cardiovascular: RSR Respiratory: decreased breath sounds Abdomen: non-tender, present bowel sounds Extremities: edema, no tenderness, no cyanosis Laboratory Tests Test 07/07/20 11:04 07/07/20 16:43 07/07/20 23:52 07/08/20 04:15 POC Whole Blood Glucose 96 MG/DL (74-106) 100 MG/DL (74-106) 101 MG/DL (74-106) White Blood Count 9.5 K/UL (4.8-10.8) Red Blood Count 2.89 M/UL (4.20-5.40) L Hemoglobin 8.5 G/DL (12.0-16.0) L Hematocrit 26.5 % (37.0-47.0) L Mean Corpuscular Volume 92 FL (80-99) Mean Corpuscular Hemoglobin 29.3 PG (27.0-31.0) Mean Corpuscular Hemoglobin Concent 32.0 G/DL (32.0-36.0) Red Cell Distribution Width 15.1 % (11.6-14.8) H Platelet Count 215 K/UL (150-450) Mean Platelet Volume 8.3 FL (6.5-10.1) Neutrophils (%) (Auto) 69.7 % (45.0-75.0) Lymphocytes (%) (Auto) 22.3 % (20.0-45.0) Monocytes (%) (Auto) 5.9 % (1.0-10.0) Eosinophils (%) (Auto) 1.6 % (0.0-3.0) Basophils (%) (Auto) 0.5 % (0.0-2.0) Sodium Level 134 MMOL/L (136-145) L Potassium Level 4.8 MMOL/L (3.5-5.1) Chloride Level 102 MMOL/L (98-107) Carbon Dioxide Level 25 MMOL/L (21-32) Anion Gap 7 mmol/L (5-15) Blood Urea Nitrogen 28 mg/dL (7-18) H Creatinine 0.5 MG/DL (0.55-1.30) L Estimat Glomerular Filtration Rate > 60 mL/min (>60) Glucose Level 102 MG/DL (74-106) Osmolality 291 mOsm/kg (297-317) L Uric Acid 3.1 MG/DL (2.6-7.2) Calcium Level 9.1 MG/DL (8.5-10.1) Phosphorus Level 2.7 MG/DL (2.5-4.9) Magnesium Level 1.9 MG/DL (1.8-2.4) Total Bilirubin 0.3 MG/DL (0.2-1.0) Aspartate Amino Transf (AST/SGOT) 21 U/L (15-37) Alanine Aminotransferase (ALT/SGPT) 25 U/L (12-78) Alkaline Phosphatase 174 U/L (46-116) H C-Reactive Protein, Quantitative 5.3 mg/dL (0.00-0.90) H Pro-B-Type Natriuretic Peptide 408 pg/mL (0-125) H Total Protein 6.8 G/DL (6.4-8.2) Albumin 2.0 G/DL (3.4-5.0) L Globulin 4.8 g/dL Albumin/Globulin Ratio 0.4 (1.0-2.7) L Test 07/08/20 05:24 POC Whole Blood Glucose 89 MG/DL (74-106) Plan Problems: (1) Dehydration (2) Hypernatremia (3) Pneumonia (4) Protein calorie malnutrition Assessment & Plan: bmi 25 alb 2.1 wounds with granulation tissue cont tf as tolerated DAILY ESTIMATED NEEDS: Needs based on Advanced wound, critical care/ 58kg abw 25-30 kcals/kg 9706-4691 total kcals 1.5-2.0 g protein/kg 87-116 g total protein 25-30 mL/kg 3641-7467 total fluid mLs NUTRITION DIAGNOSIS: * Increased kcal/prot needs R/T wound healing as evidenced by pt * Swallowing difficulty R/T dysphagia, h/o Parkinson's disease as evidenced by pt on pureed 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 CURRENT TF:Glucerna 1.2 @ 65ml/hr x 20 hrs ENTERAL NUTRITION RECOMMENDATIONS: Glucerna 1.2 @ 70ml/hr x 20 hrs to provide 1400ml, 1680kcal, 84g prot, 1127ml free water * Increase goal rate to 70ml/hr x 20 hrs to better meet est needs * Add KEVIN BID via PEG for wound healing (+ additional 5g prot, TF + Kevin BID will provide 100% est prot needs) * HOB over 30 degrees/ water flush per MD ADDITIONAL RECOMMENDATIONS: * Calibrated bedscale wt for accurate CBW * Wound healing: continue Vit C and ZnSO4 add Kevin BID via PEG * Monitor lytes, replete as needed ( low phos 1.9) * Monitor BGs w/ TF- cont carb controlled diet (5) Failure to thrive (child) (6) Tracheostomy dependence Assessment & Plan: trach stable dressings changed no acute intervention (7) Chronic respiratory failure (8) Hypothyroidism (9) Pyelonephritis (10) Sacral decubitus ulcer Assessment & Plan: Pt presented on admission with full thickness Stage 4 sacral pressure injury. Base of wound has tissue viable. (L)3cm x (W)3.5cm x 3cm deep. Scattered areas of maceration along borders. Mixed pink epithelial and hyperpigmentation periwound. Additionally two small wounds noted to R and L buttocks within area of hyperpigmentation. R and L heels are both soft but easily blanchable.No other skin concerns noted. left ear with abrasion Tx.Plan: Cleanse sacral wound with Saline. Apply Therahoney gauze packing. Apply Moisture Barrier paste periwound. Cover with Optifoam drsg. Change every 1 days and prn. Apply Cavilon Skin Barrier to both heels. Cover each heel with Optifoam drsg. Change every 7 days and prn. Apply therahoney to left ear and cover with foam dressings. change q3 days APM/YOLY Mattress overlay. Reposition at least every 2hours or as tolerated. Off-load heels with pillow. (11) Sepsis Assessment & Plan: afebrile, HD stable improving tolerating diet wbc resolved no n/v/fc cont abx (12) UTI (urinary tract infection) (13) Anemia (14) Dysphagia (15) Hypoalbuminemia (16) Iron deficiency (17) At high risk for aspiration (18) Parkinson disease (19) Dementia (20) Elevated CEA (21) Paroxysmal A-fib (22) Pancytopenia Holland Petty Jul 08, 2020 10:29
--- NOTE | 2020-07-08 10:30 | NUR ---
NURSE NOTES: Per Dr. Chau patient is cleared for discharge.
--- NOTE | 2020-07-08 10:39 | General Progress Note ---
Subjective ROS Limited/Unobtainable: No Allergies: Coded Allergies: No Known Allergies (Unverified , 11/22/15) Objective Last 24 Hour Vital Signs Date Time Temp Pulse Resp B/P (MAP) Pulse Ox O2 Delivery O2 Flow Rate FiO2 07/08/20 08:00 58 07/08/20 08:00 30 07/08/20 08:00 Mechanical Ventilator 07/08/20 08:00 98.2 58 15 108/58 (75) 100 07/08/20 07:16 48 12 30 07/08/20 04:00 Mechanical Ventilator 07/08/20 04:00 98.0 57 21 125/65 (85) 100 07/08/20 04:00 30 07/08/20 04:00 63 07/08/20 03:00 51 13 30 07/08/20 00:00 Mechanical Ventilator 07/08/20 00:00 98.7 57 13 113/58 (76) 100 07/08/20 00:00 56 07/07/20 23:37 55 16 100 Mechanical Ventilator 30 56 16 30 07/07/20 20:00 30 07/07/20 20:00 98.6 56 16 126/63 (84) 100 07/07/20 20:00 Mechanical Ventilator 07/07/20 20:00 62 07/07/20 18:55 61 18 30 07/07/20 16:00 98.1 61 15 117/53 (74) 100 07/07/20 16:00 30 07/07/20 16:00 Mechanical Ventilator 07/07/20 16:00 60 07/07/20 14:50 53 16 100 Mechanical Ventilator 30 54 12 100 07/07/20 12:00 98.4 51 15 117/60 (79) 100 07/07/20 12:00 30 07/07/20 12:00 47 07/07/20 12:00 Mechanical Ventilator 07/07/20 11:20 57 12 30 Intake and Output 07/07/20 07/08/20 19:00 07:00 Intake Total 870 ml 970 ml Output Total 800 ml 1100 ml Balance 70 ml -130 ml Intake Free Water 200 ml IV Total 55 ml Tube Feeding 815 ml 770 ml Output Urine Total 800 ml 1100 ml # Bowel Movements 1 1 Laboratory Tests 07/07/20 11:04: POC Whole Blood Glucose 96 07/07/20 16:43: POC Whole Blood Glucose 100 10/8/20 23:52: POC Whole Blood Glucose 101 07/08/20 04:15: White Blood Count 9.5, Red Blood Count 2.89L, Hemoglobin 8.5L, Hematocrit 26.5L, Mean Corpuscular Volume 92, Mean Corpuscular Hemoglobin 29.3, Mean Corpuscular Hemoglobin Concent 32.0, Red Cell Distribution Width 15.1H, Platelet Count 215, Mean Platelet Volume 8.3, Neutrophils (%) (Auto) 69.7, Lymphocytes (%) (Auto) 22.3, Monocytes (%) (Auto) 5.9, Eosinophils (%) (Auto) 1.6, Basophils (%) (Auto) 0.5, Sodium Level 134L, Potassium Level 4.8, Chloride Level 102, Carbon Dioxide Level 25, Anion Gap 7, Blood Urea Nitrogen 28H, Creatinine 0.5L, Estimat Glomeru lar Filtration Rate > 60, Glucose Level 102, Osmolality 291L, Uric Acid 3.1, Calcium Level 9.1, Phosphorus Level 2.7, Magnesium Level 1.9, Total Bilirubin 0.3, Aspartate Amino Transf (AST/SGOT) 21, Alanine Aminotransferase (ALT/SGPT) 2 5, Alkaline Phosphatase 174H, C-Reactive Protein, Quantitative 5.3H, Pro-B-Type Natriuretic Peptide 408H, Total Protein 6.8, Albumin 2.0L, Globulin 4.8, Albumin/Globulin Ratio 0.4L 07/08/20 05:24: POC Whole Blood Glucose 89 Height (Feet): 5 Height (Inches): 4.00 Weight (Pounds): 145 General Appearance: no apparent distress EENT: normal ENT inspection Neck: supple Cardiovascular: normal rate Respiratory/Chest: decreased breath sounds Abdomen: normal bowel sounds, non tender, soft Extremities: non-tender Assessment/Plan Status: unchanged Assessment/Plan: 1. Respiratory failure, on chronic vent. 2. Dysphagia with G-tube. 3. COPD. 4. Atrial fibrillation. 5. Schizophrenia. 6. Parkinson disease. 7. Diabetes. 8. Quadriplegia. 9. Gastritis. 10. Iron def anemia GTF>> 70 cc monitor for residuals IV iron fu stool ob CBC in am Gilbert Hooks MD Jul 08, 2020 10:38
[2020-07-08] MEDS: Colistin for inhalation INH SCH (10:49)
--- NOTE | 2020-07-08 10:56 | Nephrology Progress Note ---
Assessment/Plan Problem List: (1) Hypernatremia (2) Dehydration (3) Chronic respiratory failure (4) Tracheostomy dependence (5) Hypothyroidism (6) Hypoalbuminemia Assessment Hypernatremia, dehydration, Azotemia, dehydration, Pneumonia, sepsis, pyelonephritis Chronic trach and vent PEG Anemia Parkinson's Diabetes mellitus History of atrial fibrillation Plan July 08: Labs reviewed. Renal parameters stable. Okay for discharge from renal standpoint of view. Medication list reviewed. July 07: Labs reviewed. Serum sodium 133. Continue to monitor renal parameters and electrolytes. Medication list reviewed. July 06: Labs reviewed. Medication list reviewed. Electrolyte abnormalities addressed. Continue per consultants. July 05: Lab reviewed. Electrolyte abnormalities addressed. Continue per consultants. July 04: Labs reviewed. Electrolyte abnormalities noted and addressed. Continue per consultants. D5W 50 cc an hour Change Synthroid to IV Continue same medication Recheck labs iron panel thyroid panel , results noted 2D echocardiogram to evaluate LV function, results pending Albumin bolus Continue per consultants Urine studies Subjective ROS Limited/Unobtainable: Yes Objective Objective Last 24 Hour Vital Signs Date Time Temp Pulse Resp B/P (MAP) Pulse Ox O2 Delivery O2 Flow Rate FiO2 07/08/20 08:00 58 07/08/20 08:00 30 07/08/20 08:00 Mechanical Ventilator 07/08/20 08:00 98.2 58 15 108/58 (75) 100 07/08/20 07:16 48 12 30 07/08/20 04:00 Mechanical Ventilator 07/08/20 04:00 98.0 57 21 125/65 (85) 100 07/08/20 04:00 30 07/08/20 04:00 63 07/08/20 03:00 51 13 30 07/08/20 00:00 Mechanical Ventilator 07/08/20 00:00 98.7 57 13 113/58 (76) 100 07/08/20 00:00 56 07/07/20 23:37 55 16 100 Mechanical Ventilator 30 56 16 30 07/07/20 20:00 30 07/07/20 20:00 98.6 56 16 126/63 (84) 100 07/07/20 20:00 Mechanical Ventilator 07/07/20 20:00 62 07/07/20 18:55 61 18 30 07/07/20 16:00 98.1 61 15 117/53 (74) 100 07/07/20 16:00 30 07/07/20 16:00 Mechanical Ventilator 07/07/20 16:00 60 07/07/20 14:50 53 16 100 Mechanical Ventilator 30 54 12 100 07/07/20 12:00 98.4 51 15 117/60 (79) 100 07/07/20 12:00 30 07/07/20 12:00 47 07/07/20 12:00 Mechanical Ventilator 07/07/20 11:20 57 12 30 Intake and Output 07/07/20 07/08/20 19:00 07:00 Intake Total 870 ml 970 ml Output Total 800 ml 1100 ml Balance 70 ml -130 ml Intake Free Water 200 ml IV Total 55 ml Tube Feeding 815 ml 770 ml Output Urine Total 800 ml 1100 ml # Bowel Movements 1 1 Current Medications Medications (Trade) Dose Ordered Sig/Alex Route PRN Reason Start Time Stop Time Status Last Admin Dose Admin Acetaminophen (Tylenol) 650 mg Q6H PRN GT FOR TEMP > 100.4 07/02/20 09:45 08/01/20 09:44 Acetaminophen (Tylenol) 650 mg Q6H PRN GT Mild Pain (Pain Scale 1-3) 07/02/20 10:00 08/01/20 09:59 Acetaminophen/ Hydrocodone Bitart ([place] 5/325) 1 tab Q6H PRN GT Severe Pain (Pain Scale 7-10) 07/02/20 09:45 07/09/20 09:44 Amiodarone HCl (Cordarone) 200 mg DAILY GT 07/02/20 19:15 09/30/20 19:14 07/08/20 09:25 Ascorbic Acid (Vitamin C) 500 mg TWICE A DAY GT 07/02/20 18:00 08/01/20 17:59 07/08/20 09:25 Colistimethate Sodium (Colistin *inhalation use only*) 75 mg Q12HR@10,22 INH 07/07/20 15:00 07/14/20 14:59 07/08/20 10:49 Dextrose (Dextrose 50%) 25 ml Q30M PRN IV Hypoglycemia 07/02/20 09:45 09/30/20 09:44 Dextrose (Dextrose 50%) 50 ml Q30M PRN IV Hypoglycemia 07/02/20 09:45 09/30/20 09:44 Heparin Sodium (Porcine) (Heparin 5000 units/ml) 5,000 units EVERY 12 HOURS SUBQ 07/02/20 21:00 08/16/20 20:59 07/08/20 09:24 Insulin Aspart (NovoLOG) Q6HR SUBQ 07/02/20 12:00 09/30/20 11:59 07/04/20 06:26 Lansoprazole (Prevacid) 30 mg BID GT 07/05/20 18:00 08/03/20 08:59 07/08/20 09:25 Levothyroxine Sodium (Synthroid) 50 mcg DAILY IV 07/04/20 09:00 08/03/20 08:59 07/08/20 09:26 Minocycline HCl (Minocin) 100 mg Q12HR ORAL 07/05/20 21:00 07/12/20 20:59 07/08/20 09:25 Multivitamins (Multivitamins W/ Minerals 15ml Liquid) 15 ml DAILY GT 07/03/20 09:00 08/02/20 08:59 07/08/20 09:25 Ondansetron HCl (Zofran) 4 mg Q6H PRN IVP Nausea & Vomiting 07/02/20 09:45 08/01/20 09:44 Zinc Sulfate (Zinc Sulfate) 220 mg DAILY GT 07/03/20 09:00 10/01/20 08:59 07/08/20 09:25 Laboratory Tests 07/07/20 11:04: POC Whole Blood Glucose 96 07/07/20 16:43: POC Whole Blood Glucose 100 07/07/20 23:52: POC Whole Blood Glucose 101 07/08/20 04:15: White Blood Count 9.5, Red Blood Count 2.89L, Hemoglobin 8.5L, Hematocrit 26.5L, Mean Corpuscular Volume 92, Mean Corpuscular Hemoglobin 29.3, Mean Corpuscular Hemoglobin Concent 32.0, Red Cell Distribution Width 15.1H, Platelet Count 215, Mean Platelet Volume 8.3, Neutrophils (%) (Auto) 69.7, Lymphocytes (%) (Auto) 22.3, Monocytes (%) (Auto) 5.9, Eosinophils (%) (Auto) 1.6, Basophils (%) (Auto) 0.5, Sodium Level 134L, Potassium Level 4.8, Chloride Level 102, Carbon Dioxide Level 25, Anion Gap 7, Blood Urea Nitrogen 28H, Creatinine 0.5L, Estimat Glomerular Filtration Rate > 60, Glucose Level 102, Osmolality 291L, Uric Acid 3.1, Calcium Level 9.1, Phosphorus Level 2.7, Magnesium Level 1.9, Total Bilirubin 0.3, Aspartate Amino Transf (AST/SGOT) 21, Alanine Aminotransferase (ALT/SGPT) 25, Alkaline Phosphatase 174H, C-Reactive Protein, Quantitative 5.3H, Pro-B-Type Natriuretic Peptide 408H, Total Protein 6.8, Albumin 2.0L, Globulin 4.8, Albumin/Globulin Ratio 0.4L 07/08/20 05:24: POC Whole Blood Glucose 89 Height (Feet): 5 Height (Inches): 4.00 Weight (Pounds): 145 General Appearance: no apparent distress EENT: other - Trach to vent Cardiovascular: normal rate Respiratory/Chest: decreased breath sounds Abdomen: soft Dante Chau MD Jul 08, 2020 10:56
--- NOTE | 2020-07-08 11:00 | NUR ---
NURSE NOTES: Per Dr. Cazares patient is cleared for discharge.
--- NOTE | 2020-07-08 11:45 | NUR ---
NURSE NOTES: Per Dr. Childs patient is cleared for discharge.
--- NOTE | 2020-07-08 11:59 | Pulmonology Progress Note ---
Subjective ROS Limited/Unobtainable: Yes Interval Events: None new; trach site clean Constitutional: Denies: fever HEENT: Repors: no symptoms Respiratory: Reports: no symptoms Cardiovascular: Reports: no symptoms Gastrointestinal/Abdominal: Reports: no symptoms Genitourinary: Reports: no symptoms Allergies: Coded Allergies: No Known Allergies (Unverified , 11/22/15) All Systems: reviewed and negative except above Objective Last 24 Hour Vital Signs Date Time Temp Pulse Resp B/P (MAP) Pulse Ox O2 Delivery O2 Flow Rate FiO2 07/08/20 10:45 53 15 100 Mechanical Ventilator 30 57 16 30 07/08/20 08:00 58 07/08/20 08:00 30 07/08/20 08:00 Mechanical Ventilator 07/08/20 08:00 98.2 58 15 108/58 (75) 100 07/08/20 07:16 48 12 30 07/08/20 04:00 Mechanical Ventilator 07/08/20 04:00 98.0 57 21 125/65 (85) 100 07/08/20 04:00 30 07/08/20 04:00 63 07/08/20 03:00 51 13 30 07/08/20 00:00 Mechanical Ventilator 07/08/20 00:00 98.7 57 13 113/58 (76) 100 07/08/20 00:00 56 07/07/20 23:37 55 16 100 Mechanical Ventilator 30 56 16 30 07/07/20 20:00 30 07/07/20 20:00 98.6 56 16 126/63 (84) 100 07/07/20 20:00 Mechanical Ventilator 07/07/20 20:00 62 07/07/20 18:55 61 18 30 07/07/20 16:00 98.1 61 15 117/53 (74) 100 07/07/20 16:00 30 07/07/20 16:00 Mechanical Ventilator 07/07/20 16:00 60 07/07/20 14:50 53 16 100 Mechanical Ventilator 30 54 12 100 07/07/20 12:00 98.4 51 15 117/60 (79) 100 07/07/20 12:00 30 07/07/20 12:00 47 07/07/20 12:00 Mechanical Ventilator Intake and Output 07/07/20 07/08/20 19:00 07:00 Intake Total 870 ml 970 ml Output Total 800 ml 1100 ml Balance 70 ml -130 ml Intake Free Water 200 ml IV Total 55 ml Tube Feeding 815 ml 770 ml Output Urine Total 800 ml 1100 ml # Bowel Movements 1 1 General Appearance: no acute distress HEENT: status post trach Respiratory: chest wall non-tender, lungs clear Cardiovascular: normal peripheral pulses, normal rate Abdomen: normal bowel sounds Extremities: no cyanosis Laboratory Tests 07/07/20 16:43: POC Whole Blood Glucose 100 07/07/20 23:52: POC Whole Blood Glucose 101 07/08/20 04:15: White Blood Count 9.5, Red Blood Count 2.89L, Hemoglobin 8.5L, Hematocrit 26.5L, Mean Corpuscular Volume 92, Mean Corpuscular Hemoglobin 29.3, Mean Corpuscular Hemoglobin Concent 32.0, Red Cell Distribution Width 15.1H, Platelet Count 215, Mean Platelet Volume 8.3, Neutrophils (%) (Auto) 69.7, Lymphocytes (%) (Auto) 22.3, Monocytes (%) (Auto) 5.9, Eosinophils (%) (Auto) 1.6, Basophils (%) (Auto) 0.5, Sodium Level 134L, Potassium Level 4.8, Chloride Level 102, Carbon Dioxide Level 25, Anion Gap 7, Blood Urea Nitrogen 28H, Creatinine 0.5L, Estimat Glomerular Filtration Rate > 60, Glucose Level 102, Osmolality 291L, Uric Acid 3.1, Calcium Level 9.1, Phosphorus Level 2.7, Magnesium Level 1.9, Total Bilirubin 0.3, Aspartate Amino Transf (AST/SGOT) 21, Alanine Aminotransferase (ALT/SGPT) 25, Alkaline Phosphatase 174H, C-Reactive Protein, Quantitative 5.3H, Pro-B-Type Natriuretic Peptide 408H, Total Protein 6.8, Albumin 2.0L, Globulin 4.8, Albumin/Globulin Ratio 0.4L 07/08/20 05:24: POC Whole Blood Glucose 89 07/08/20 11:27: POC Whole Blood Glucose 98 Current Medications Medications (Trade) Dose Ordered Sig/Alex Route PRN Reason Start Time Stop Time Status Last Admin Dose Admin Acetaminophen (Tylenol) 650 mg Q6H PRN GT FOR TEMP > 100.4 07/02/20 09:45 08/01/20 09:44 Acetaminophen (Tylenol) 650 mg Q6H PRN GT Mild Pain (Pain Scale 1-3) 07/02/20 10:00 08/01/20 09:59 Acetaminophen/ Hydrocodone Bitart ([place] 5/325) 1 tab Q6H PRN GT Severe Pain (Pain Scale 7-10) 07/02/20 09:45 07/09/20 09:44 Amiodarone HCl (Cordarone) 200 mg DAILY GT 07/02/20 19:15 09/30/20 19:14 07/08/20 09:25 Ascorbic Acid (Vitamin C) 500 mg TWICE A DAY GT 07/02/20 18:00 08/01/20 17:59 07/08/20 09:25 Colistimethate Sodium (Colistin *inhalation use only*) 75 mg Q12HR@10,22 INH 07/07/20 15:00 07/14/20 14:59 07/08/20 10:49 Dextrose (Dextrose 50%) 25 ml Q30M PRN IV Hypoglycemia 07/02/20 09:45 09/30/20 09:44 Dextrose (Dextrose 50%) 50 ml Q30M PRN IV Hypoglycemia 07/02/20 09:45 09/30/20 09:44 Heparin Sodium (Porcine) (Heparin 5000 units/ml) 5,000 units EVERY 12 HOURS SUBQ 07/02/20 21:00 08/16/20 20:59 07/08/20 09:24 Insulin Aspart (NovoLOG) Q6HR SUBQ 07/02/20 12:00 09/30/20 11:59 07/04/20 06:26 Lansoprazole (Prevacid) 30 mg BID GT 07/05/20 18:00 08/03/20 08:59 07/08/20 09:25 Levothyroxine Sodium (Synthroid) 50 mcg DAILY IV 07/04/20 09:00 08/03/20 08:59 07/08/20 09:26 Minocycline HCl (Minocin) 100 mg Q12HR ORAL 07/05/20 21:00 07/12/20 20:59 07/08/20 09:25 Multivitamins (Multivitamins W/ Minerals 15ml Liquid) 15 ml DAILY GT 07/03/20 09:00 08/02/20 08:59 07/08/20 09:25 Ondansetron HCl (Zofran) 4 mg Q6H PRN IVP Nausea & Vomiting 07/02/20 09:45 08/01/20 09:44 Zinc Sulfate (Zinc Sulfate) 220 mg DAILY GT 07/03/20 09:00 10/01/20 08:59 07/08/20 09:25 Assessment/Plan Assessment/Plan Impression: UTI Pneumonia Sepsis Hypernatremia Dehydration Chronic respiratory failure Tracheostomy dependence Diabetes S/P percutaneous endoscopic gastrostomy (PEG) tube placement Failure to thrive (child) Dementia Paroxysmal A-fib Protein calorie malnutrition Iron deficiency Parkinson disease Anemia Pyelonephritis Plan: ABG prn Wean FIO2 IV Antibiotics IVF [employer] Medications/feeds ISS PPX Monitor labs maintain on IMV + PSV; FiO2 30% Mino Childs MD Jul 08, 2020 11:59
[2020-07-08 12:00] VITALS: BP 115/68
--- NOTE | 2020-07-08 12:15 | NUR ---
DISCHARGE DISPOSITION: PLEASE READ PT TO BE DISCHARGED TO [facility] [address] T: [phone]>> CALL FOR REPORT [facility] ETA 1630 ALS W/ RT CM S/W DTR LEONARDO WHO IS AGREEABLE TO [facility] TRANSFER DR REES MADE AWARE OF TRANSFER TRANSFER PACKET TO BE DELIVERED
--- NOTE | 2020-07-08 14:00 | NUR ---
NURSE NOTES: Per Dr. Winters patient is cleared for discharge and is aware patient's HR goes as low as 45 bpm sinus bradycardia. Patient currently 55 bpm sinus bradycardia. Noted.
--- NOTE | 2020-07-08 14:30 | NUR ---
NURSE NOTES: CRISTY Ortega of [facility] called nurse station for report. This nurse gave report to CRISTY Ortega. Noted.
[2020-07-08 16:00] VITALS: BP 108/62
--- NOTE | 2020-07-08 17:08 | Cardiology Progress Note ---
Assessment/Plan Assessment/Plan 1. Bilateral pulmonary edema on the chest x-ray with associated elevation of proBNP, 2D echocardiography today, which showed in fact normal LV systolic function with stage 1 LV diastolic dysfunction suggestive of impaired relaxation with normal intracardiac filling pressure. RVSP was measured at 33 mmHg. Continue hydration. 2. History of diabetes mellitus, start aspirin and statin. 3. History of hypertension. 4. Persistent atrial fibrillation, continue amiodarone. 5. VDRF. 6. s/p PEG Subjective Subjective Sinus bradycardia at rate of 55. Objective Last 24 Hour Vital Signs Date Time Temp Pulse Resp B/P (MAP) Pulse Ox O2 Delivery O2 Flow Rate FiO2 07/08/20 16:00 Mechanical Ventilator 07/08/20 16:00 30 07/08/20 15:16 55 12 30 07/08/20 12:00 97.9 61 15 115/68 (84) 100 07/08/20 12:00 59 07/08/20 12:00 30 07/08/20 12:00 Mechanical Ventilator 07/08/20 10:45 53 15 100 Mechanical Ventilator 30 57 16 30 07/08/20 08:00 58 07/08/20 08:00 30 07/08/20 08:00 Mechanical Ventilator 07/08/20 08:00 98.2 58 15 108/58 (75) 100 07/08/20 07:16 48 12 30 07/08/20 04:00 Mechanical Ventilator 07/08/20 04:00 98.0 57 21 125/65 (85) 100 07/08/20 04:00 30 07/08/20 04:00 63 07/08/20 03:00 51 13 30 07/08/20 00:00 Mechanical Ventilator 07/08/20 00:00 98.7 57 13 113/58 (76) 100 07/08/20 00:00 56 07/07/20 23:37 55 16 100 Mechanical Ventilator 30 56 16 30 07/07/20 20:00 30 07/07/20 20:00 98.6 56 16 126/63 (84) 100 07/07/20 20:00 Mechanical Ventilator 07/07/20 20:00 62 07/07/20 18:55 61 18 30 Intake and Output 07/07/20 07/08/20 19:00 07:00 Intake Total 870 ml 970 ml Output Total 800 ml 1100 ml Balance 70 ml -130 ml Intake Free Water 200 ml IV Total 55 ml Tube Feeding 815 ml 770 ml Output Urine Total 800 ml 1100 ml # Bowel Movements 1 1 Laboratory Tests Test 07/07/20 23:52 07/08/20 04:15 07/08/20 05:24 07/08/20 11:27 POC Whole Blood Glucose 101 MG/DL (74-106) 89 MG/DL (74-106) 98 MG/DL (74-106) White Blood Count 9.5 K/UL (4.8-10.8) Red Blood Count 2.89 M/UL (4.20-5.40) L Hemoglobin 8.5 G/DL (12.0-16.0) L Hematocrit 26.5 % (37.0-47.0) L Mean Corpuscular Volume 92 FL (80-99) Mean Corpuscular Hemoglobin 29.3 PG (27.0-31.0) Mean Corpuscular Hemoglobin Concent 32.0 G/DL (32.0-36.0) Red Cell Distribution Width 15.1 % (11.6-14.8) H Platelet Count 215 K/UL (150-450) Mean Platelet Volume 8.3 FL (6.5-10.1) Neutrophils (%) (Auto) 69.7 % (45.0-75.0) Lymphocytes (%) (Auto) 22.3 % (20.0-45.0) Monocytes (%) (Auto) 5.9 % (1.0-10.0) Eosinophils (%) (Auto) 1.6 % (0.0-3.0) Basophils (%) (Auto) 0.5 % (0.0-2.0) Sodium Level 134 MMOL/L (136-145) L Potassium Level 4.8 MMOL/L (3.5-5.1) Chloride Level 102 MMOL/L (98-107) Carbon Dioxide Level 25 MMOL/L (21-32) Anion Gap 7 mmol/L (5-15) Blood Urea Nitrogen 28 mg/dL (7-18) H Creatinine 0.5 MG/DL (0.55-1.30) L Estimat Glomerular Filtration Rate > 60 mL/min (>60) Glucose Level 102 MG/DL (74-106) Osmolality 291 mOsm/kg (297-317) L Uric Acid 3.1 MG/DL (2.6-7.2) Calcium Level 9.1 MG/DL (8.5-10.1) Phosphorus Level 2.7 MG/DL (2.5-4.9) Magnesium Level 1.9 MG/DL (1.8-2.4) Total Bilirubin 0.3 MG/DL (0.2-1.0) Aspartate Amino Transf (AST/SGOT) 21 U/L (15-37) Alanine Aminotransferase (ALT/SGPT) 25 U/L (12-78) Alkaline Phosphatase 174 U/L (46-116) H C-Reactive Protein, Quantitative 5.3 mg/dL (0.00-0.90) H Pro-B-Type Natriuretic Peptide 408 pg/mL (0-125) H Total Protein 6.8 G/DL (6.4-8.2) Albumin 2.0 G/DL (3.4-5.0) L Globulin 4.8 g/dL Albumin/Globulin Ratio 0.4 (1.0-2.7) L Test 07/08/20 16:16 POC Whole Blood Glucose 80 MG/DL (74-106) Objective HEENT: Atraumatic and normocephalic. Anicteric. Pupils equal, round, and reactive to light and accommodation. Extraocular muscles intact. NECK: Presence of a tracheostomy tube. No discharge or bleeding. JVP cannot be assessed, no carotid bruit. LUNGS: Bilateral basilar crackles. ABDOMEN: Soft, nontender, nondistended. No hepatosplenomegaly. Positive PEG in place. No discharge or tenderness. EXTREMITIES: No evidence of edema, clubbing, or cyanosis. Contraction with rigidity in the extremities was seen. Flex Winters MD Jul 08, 2020 17:08
--- NOTE | 2020-07-08 19:45 | NUR ---
NURSE NOTES: Patient discharged to [facility] per Dr. Dupree. IV access remained in place per to continue IV venofer 100 mg QHS for [address] Cazares. Urinary lara catheter remained in place per order of Dr. Dupree. Heart monitor removed and returned to donor services technician. Patient left hospital via gurney, accompanied by 2 doctor of chiropractic and RN, no belonging. Daughter Eusebia Gao aware of discharge. Noted.
[2020-07-08] MEDS ORDERED: NS 275ml ONE (19:46)
[2020-07-08] MEDS ORDERED: Iron Sucrose 100 MG in NS 55 ML IVPB SCH (21:00)
--- NOTE | 2020-07-09 18:42 | Discharge Summary ---
Discharge Summary Discharge Summary _ DATE OF ADMISSION: 07/01/2020 DATE OF DISCHARGE: 07/08/2020 DISCHARGED BY: Dr. Tony Dupree BRIEF HOSPITAL COURSE: Patient is a 74-year-old female with past medical history of chronic respiratory failure, status post trach, PEG, COPD, atrial fibrillation, schizophrenia, Parkinson's disease, anxiety, quadriplegia, diabetes, gastritis, was brought in by ambulance from assisted facility due to complaints of fever. T-max prior to arrival was 101. Patient was given Tylenol. Upon evaluation at ED, patient had a temperature of 101.3. Blood work showed WBC elevated to 14. Hemoglobin was 7.9 and hematocrit 25. BNP was elevated to 1250. Troponin was normal. Chest x-ray showed bilateral patchy airspace opacities. Urinalysis showed 3+ leukocyte esterase, urine RBC 40-60, urine WBC 40-60. Septic work-up was initiated. Patient was started on empiric antibiotics. COVID-19 test was negative. She was then admitted for evaluation of sepsis. Patient was admitted to [facility]. Patient was hooked on ventilator. Patient had elevated BNP and chest x-ray findings of pulmonary edema. Echocardiogram showed normal LV systolic function with stage I LV diastolic dysfunction suggestive of impaired relaxation with normal intracardiac filling pressure. RVSP was measured at 33 mmHg. Patient has history of persistent atrial fibrillation and was continued on amiodarone. She was given aspirin and statin. She was given cefepime and IV vancomycin. Anemia work-up showed low iron levels. She was started on IV Venofer. She was given Protonix for GI prophylaxis. Stool OB was negative. On admission, she presented with full-thickness stage IV sacral pressure injury. Additionally, she had 2 small wounds on the right and left buttocks and a left ear abrasion. She was given local wound care. She was placed on APM/YOLY overl ay mattress with frequent repositioning and offloading. Urine culture showed growth of acinetobacter. Vancomycin was changed to doxycycline. She was continued on cefepime. Antibiotic was eventually changed to minocycline. TSH was elevated to 18. Levothyroxine was changed to IV. Patient had right breast calcifications. There was no breast mass on examination. Recommend outpatient mammogram. Sputum culture showed growth of ESBL Proteus and Serratia. Cefepime was discontinued. She was given minocycline and inhaled colistin. Patient was eventually discharged to acute long-term facility. FINAL DIAGNOSES: Sepsis Pneumonia UTI, pyelonephritis Hyponatremia Dehydration Protein calorie malnutrition Iron deficiency Anemia of chronic disease Parkinson's disease Schizophrenia Bilateral pulmonary edema Diabetes mellitus Hypertension Persistent atrial relation Vent dependent respiratory failure Dysphagia with PEG Sacral decubitus ulcer, present on admission Thrombocytopenia Right breast calcification DISPOSITION: Patient was transferred to [place]. DISCHARGE MEDICATIONS: Refer to Discharge Medication List. I have been assigned to complete a discharge summary on this account, I was not involved with the patient's management.--JUAN Singh Jacqueline Robles NP Jul 09, 2020 18:42
== END 2020-07-08 19:47 | DRG 870 ==
LOC: EDUNIT# 23:08 → EDBD 23:08 → EMR 23:21 → 2W 23:30 → EDBEDREQ 07-02 05:17 → 2W 07-04 04:36
PROC: 5A1955Z Respiratory Ventilation, Greater than 96 Consecutive Hours (ICD-10-PCS; principal; 2020-07-01)
DX: A41.9 Sepsis, unspecified organism (principal); L89.154 Pressure ulcer of sacral region, stage 4; G82.50 Quadriplegia, unspecified; J15.6 Pneumonia due to other Gram-negative bacteria; N39.0 Urinary tract infection, site not specified; J96.10 Chronic respiratory failure, unspecified whether with hypoxia or hypercapnia; E46 Unspecified protein-calorie malnutrition; N12 Tubulo-interstitial nephritis, not specified as acute or chronic; Z43.1 Encounter for attention to gastrostomy; I48.19 Other persistent atrial fibrillation; Z99.11 Dependence on respirator [ventilator] status; E87.0 Hyperosmolality and hypernatremia; E86.0 Dehydration; Z43.0 Encounter for attention to tracheostomy; D63.8 Anemia in other chronic diseases classified elsewhere; G20 Parkinson's disease; F02.80 Dementia in other diseases classified elsewhere, unspecified severity, without behavioral disturbance, psychotic disturbance, mood disturbance, and anxiety; F20.9 Schizophrenia, unspecified; R13.10 Dysphagia, unspecified; E11.9 Type 2 diabetes mellitus without complications; I10 Essential (primary) hypertension; D69.6 Thrombocytopenia, unspecified; D50.9 Iron deficiency anemia, unspecified; K29.70 Gastritis, unspecified, without bleeding; B96.89 Other specified bacterial agents as the cause of diseases classified elsewhere; Z68.25 Body mass index [BMI] 25.0-25.9, adult; J44.9 Chronic obstructive pulmonary disease, unspecified
CPT/HCPCS: 36415; 71045; 80048; 80053; 80061; 81003; 82270; 82607; 82728; 82746; 82803; 82962; 82977; 83036; 83540; 83550; 83605; 83615; 83690; 83735; 83880; 83930; 84100; 84443; 84484; 84550; 85007; 85025; 85610; 85730; 86140; 86850; 86900; 86901; 87040; 87070; 87081; 87086; 87181; 87205; 93005; 93306; 94002; 94003; 94664; 96361; 96365; 96367; 96375; 99285; C9399; J1815; J7030; U0002

== ENCOUNTER 2020-09-15 12:21 | Inpatient (IN) | payer MEDICARE, MEDICAID ==
[~2020-09-15] VITALS: Ht 160 cm; Wt 65.8 kg
[~2020-09-15 12:21] MED LIST changes: +ACIDOPHILUS1 EAC6 GT; +AMIODARONE HCL200 MG GT; +AMIODARONE HCL400 M1 GT; +ASCORBIC A500 MG/1 M GT; +ASCORBIC ACID500 MG GT; +DOCUSATE SODIU100 MG GT; +FAMOTIDINE20 MG GT; +FUROSEMIDE20 M1 GT; +HYDRALAZINE HCL10 MG GT; +JUVEN PACKET1 EAC1 GT; +MULTIVITAM9 MG/15 M1 GT; +NAMENDA5 MG GT; +NORCO 5-325 TA1 EAC1 ORAL; +PROTEINEX-18 LI30 ML GT; +SINEMET 25-1001 EAC1 GT; +SYNTHROID100 MCG GT; +VITAMIN D325 MC1 GT; +VITAMIN D350 MC1 GT
[2020-09-15] MEDS ORDERED: ALBUTEROL2.5 MG/3 M INH (12:46)
[2020-09-15] MEDS ORDERED: HUMALOG100 UNIT/3 SUBQ (12:46)
--- NOTE | 2020-09-15 13:00 | NUR ---
ED Nurse Note: Pt BIBA for fever x1 day. Current temp 99.2 F rectal. Pt is previously tested COVID positive. She arrived with trach, is vent dependent, has upper abdominal G tube Pt is alert and ox0, awake, eyes open. Pt has boots on bilateral feet. Set up on monitor. RT present.
[2020-09-15 13:05] VITALS: BP 112/59
--- NOTE | 2020-09-15 13:07 | Emergency Room Report ---
History of Present Illness General Chief Complaint: Fever Source: Medical Record, EMS Present Illness HPI [facility] with a history of fever. There is little other documentation regarding the fever at this time. She is unable to provide history. She does nod "yes" when asked about pain but it is not possible to determine where. She was admitted July 01 with these discharge diagnoses: Sepsis Pneumonia UTI, pyelonephritis Hyponatremia Dehydration Protein calorie malnutrition Iron deficiency Anemia of chronic disease Parkinson's disease Schizophrenia Bilateral pulmonary edema Diabetes mellitus Hypertension Persistent atrial relation Vent dependent respiratory failure Dysphagia with PEG Sacral decubitus ulcer, present on admission Thrombocytopenia Right breast calcification Allergies: Coded Allergies: No Known Allergies (Unverified , 11/22/15) COVID-19 Screening Contact w/high risk pt: Yes Experienced COVID-19 symptoms?: No COVID-19 Testing 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 COVID-19 Screening: Negative COVID-19 COVID-19 Testing Source: NASAL Patient History Limited by: medical condition Past Medical History: see triage record, old chart reviewed Past Surgical History: other - trach, G tube Social History Narrative SNF Now: No Reviewed Nursing Documentation: PMH: Agreed; PSxH: Agreed Nursing Documentation-PMH Hx Cardiac Problems: Yes - anemia, muscle weakness, dysphagia, quadriplegia Hx Hypertension: Yes Hx COPD: Yes - TRACH VENT Hx Cancer: No Hx Gastrointestinal Problems: Yes - ENCEPHALOPATHY,OSTEO ARTHRITIES,GASTRITIS Hx Neurological Problems: Yes - PARKINSONS,MUSCLE WEAKNESS Hx Parkinson's Disease: Yes Hx Weakness: Yes Review of Systems All Other Systems: limited Physical Exam Vital Signs Date Time Temp Pulse Resp B/P (MAP) Pulse Ox O2 Delivery O2 Flow Rate FiO2 09/15/20 12:25 98.2 81 18 102/53 (69) 98 Room Air 09/15/20 12:51 30 General Appearance: alert, other - small stature and deformed extremities, Ch ronically Ill Head: normocephalic, atraumatic Eyes: bilateral eye normal inspection, bilateral eye PERRL, bilateral eye EOMI ENT: other - warring mask Neck: full range of motion, supple Respiratory: crackles - bilat Cardiovascular #1: regular rate, rhythm, no edema, systolic murmur - 2/6 aortic area Cardiovascular #2: 2+ radial (R) Gastrointestinal: non tender, soft, other - G tube Genitourinary: no CVA tenderness Musculoskeletal: other - contractures Neurologic: alert, sensory intact, motor weakness - all extremities, other - tracks with eyes and seems to understand Psychiatric: other - seems to comprehend status Skin: Decubitus/Ulcer - sacral and heels, warm/dry Procedures Critical Care Time Critical Care Time Total Critical Care Time: 30 min bedside evaluation and treatment excludes procedures (EKG). Reason for critical care: hypoxia, transient hypotension, pneumonia, urinary tract infection Possible complications: hypotension, hypertension, TN, shock, arrhythmias, metabolic acidosis, end organ damage, respiratory failure. Interventions: Sepsis evaluation, antibiotics, fluids, evaluation of hypoxia, tachypnea on ventilator with adjustments Course: Chronically ill patient presents with fever. Immediate evaluation for sepsis. Based on x-ray antibiotics initiated. Apparent urinary tract infection in addition. Patient desaturated to 88%. This required my evaluation of the patient with respiratory therapy. Ventilator settings were adjusted by me. The patient was suctioned by respiratory with resultant return of 100% saturation. COVID-19 results negative however due to appearance of chest x-ray patient is still patient under investigation for possible COVID-19 infection. Improved with treatment. Presented to admitting physician. Consultations: nursing staff, EMS, respiratory therapy, admitting physician Performed by: Dr. Yanez Tolerated well condition = serious Medical Decision Making Diagnostic Impression: Primary Impression: Pneumonia Qualified Codes: J18.9 - Pneumonia, unspecified organism Additional Impressions: UTI (urinary tract infection) Qualified Codes: N39.0 - Urinary tract infection, site not specified Person under investigation for COVID-19 Functional quadriplegia Anemia Qualified Codes: D64.9 - Anemia, unspecified ER Course Patient presents with fever. Chronically ill and unable to give history which makes the patient extremely complex. Differential includes acute myocardial infarction, COVID-19, pneumonia, urinary tract infection amongst others. Evaluation with EKG, chest x-ray and labs. IV hydration begun. Initial antibiotics ordered after return of x-ray. EKG with nonspecific ST-T wave changes. Chest x-ray bilateral infiltrates. White count elevated. Anemia present. CMP with elevated alk phos. Inflammatory markers elevated. Urinalysis with pyuria. Antibiotics broadened. Adjust vent as de-satting and tachypneic. Suctioned. Replace BP cuff, not hypotensive. 1630 Patient improved with treatment however still in serious condition. Discussed with admitting physician and also covering physician. Patient admitted to the hospital to the stepdown unit. Laboratory Tests Test 09/15/20 13:22 09/15/20 13:25 White Blood Count 12.4 K/UL (4.8-10.8) H Red Blood Count 2.72 M/UL (4.20-5.40) L Hemoglobin 8.5 G/DL (12.0-16.0) L Hematocrit 26.1 % (37.0-47.0) L Mean Corpuscular Volume 96 FL (80-99) Mean Corpuscular Hemoglobin 31.4 PG (27.0-31.0) H Mean Corpuscular Hemoglobin Concent 32.8 G/DL (32.0-36.0) Red Cell Distribution Width 15.4 % (11.6-14.8) H Platelet Count 131 K/UL (150-450) L Mean Platelet Volume 9.8 FL (6.5-10.1) Neutrophils (%) (Auto) 56.2 % (45.0-75.0) Lymphocytes (%) (Auto) 14.3 % (20.0-45.0) L Monocytes (%) (Auto) 4.5 % (1.0-10.0) Eosinophils (%) (Auto) 25.0 % (0.0-3.0) H Basophils (%) (Auto) 1.1 % (0.0-2.0) Prothrombin Time 12.0 SEC (9.30-11.50) H Prothrombin Time INR 1.1 (0.9-1.1) Activated Partial Thromboplast Time 31 SEC (23-33) D-Dimer 4.14 mg/L FEU (0.00-0.49) H Sodium Level 136 MMOL/L (136-145) Potassium Level 4.8 MMOL/L (3.5-5.1) Chloride Level 102 MMOL/L (98-107) Carbon Dioxide Level 27 MMOL/L (21-32) Anion Gap 7 mmol/L (5-15) Blood Urea Nitrogen 35 mg/dL (7-18) H Creatinine 0.6 MG/DL (0.55-1.30) Estimated Glomerular Filtration Rate > 60 mL/min (>60) Glucose Level 93 MG/DL (74-106) Lactic Acid Level 0.70 mmol/L (0.4-2.0) Calcium Level 9.9 MG/DL (8.5-10.1) Magnesium Level 2.0 MG/DL (1.8-2.4) Ferritin 1271 NG/ML (8-388) H Total Bilirubin 0.6 MG/DL (0.2-1.0) Aspartate Amino Transferase (AST) 16 U/L (15-37) Alanine Aminotransferase (ALT) 11 U/L (12-78) L Alkaline Phosphatase 138 U/L (46-116) H Lactate Dehydrogenase 264 U/L (81-234) H Total Creatine Kinase 35 U/L (26-308) Troponin I 0.012 ng/mL (0.000-0.056) C-Reactive Protein, Quantitative 27.4 mg/dL (0.00-0.90) H Pro-B-Type Natriuretic Peptide Pending Total Protein 8.1 G/DL (6.4-8.2) Albumin 2.6 G/DL (3.4-5.0) L Globulin 5.5 g/dL Albumin/Globulin Ratio 0.5 (1.0-2.7) L Lipase 49 U/L (73-393) L Urine Color Yellow Urine Appearance Slightly cloudy Urine pH 8 (4.5-8.0) Urine Specific [place] 1.010 (1.005-1.035) Urine Protein 2+ (NEGATIVE) H Urine Glucose (UA) Negative (NEGATIVE) Urine Ketones Negative (NEGATIVE) Urine Blood 4+ (NEGATIVE) H Urine Nitrite Negative (NEGATIVE) Urine Bilirubin Negative (NEGATIVE) Urine Urobilinogen Normal MG/DL (0.0-1.0) Urine Leukocyte Esterase 3+ (NEGATIVE) H Urine RBC 15-20 /HPF (0 - 2) H Urine WBC 60-80 /HPF (0 - 2) H Urine Squamous Epithelial Cells Many /LPF (NONE/OCC) H Urine Bacteria Many /HPF (NONE) H Microbiology Date/Time Source Procedure Growth Status 09/15/20 13:25 Nasopharynx SARS-CoV-2 RdRp Gene Assay - Final Complete EKG Diagnostic Results Rate: normal Rhythm: NSR ST Segments: no acute changes - LVH Rhythm Strip Diag. Results EP Interpretation: yes Rhythm: NSR, no PVC's, no ectopy Chest X-Ray Diagnostic Results Chest X-Ray Diagnostic Results : Chest X-Ray Ordered: Yes # of Views/Limited/Complete: 1 View Indication: Other EP Interpretation: Yes Interpretation: no effusion, no pneumothorax, other - bilat infiltrates Last Vital Signs Date Time Temp Pulse Resp B/P (MAP) Pulse Ox O2 Delivery O2 Flow Rate FiO2 09/15/20 17:20 98.2 70 18 122/55 97 Mechanical Ventilator 09/15/20 17:10 30 Status: improved Disposition: ADMITTED INPATIENT Condition: Serious Jasvir Yanez MD Sep 15, 2020 13:07
[2020-09-15] MEDS ORDERED: cefTRIAXone 1 GM in NS 55 ML IVPB ONE (13:15)
--- NOTE | 2020-09-15 13:30 | NUR ---
ED Nurse Note: Per ERMD, pt doesn't need indwelling catheter, just straight cath for sample.
[2020-09-15 14:04] LABS: HEMATOCRIT 26.1 % (37.0-47.0); HEMOGLOBIN 8.5 G/DL (12.0-16.0); MEAN CORPUSCULAR VOLUME 96 FL (80-99); PLATELET COUNT 131 K/UL (150-450); RED BLOOD COUNT 2.72 M/UL (4.20-5.40); RED CELL DISTRIBUTION WIDTH 15.4 % (11.6-14.8); WHITE BLOOD COUNT 12.4 K/UL (4.8-10.8)
[2020-09-15 14:05] LABS: LYMPHOCYTES % (AUTO) 14.3 % (20.0-45.0); MONOCYTES % (AUTO) 4.5 % (1.0-10.0); NEUTROPHILS % (AUTO) 56.2 % (45.0-75.0)
[2020-09-15 14:06] LABS: BASOPHILS % (AUTO) 1.1 % (0.0-2.0)
--- NOTE | 2020-09-15 14:21 | Diagnostic Imaging Report ---
Indication: Dyspnea Technique: One view of the chest Comparison: 07/07/2020 Findings: There is bilateral interstitial disease now present. The pleural spaces are grossly clear. The heart is borderline enlarged. Impression: Bilateral interstitial infiltrates versus edema
[2020-09-15 14:22] LABS: ANION GAP 7 mmol/L (5-15); BLOOD UREA NITROGEN 35 mg/dL (7-18); CALCIUM 9.9 MG/DL (8.5-10.1); CARBON DIOXIDE 27 MMOL/L (21-32); CHLORIDE 102 MMOL/L (98-107); CREATININE 0.6 MG/DL (0.55-1.30); POTASSIUM 4.8 MMOL/L (3.5-5.1); SODIUM 136 MMOL/L (136-145)
[2020-09-15 14:31] LABS: ALANINE AMINOTRANSFERASE 11 U/L (12-78); ALBUMIN 2.6 G/DL (3.4-5.0); ALBUMIN/GLOBULIN RATIO 0.5 (1.0-2.7); ALKALINE PHOSPHATASE 138 U/L (46-116); ASPARTATE AMINO TRANSFERASE 16 U/L (15-37); BILIRUBIN,TOTAL 0.6 MG/DL (0.2-1.0); CREATINE KINASE 35 U/L (26-308); FERRITIN 1271 NG/ML (8-388); LACTATE DEHYDROGENASE 264 U/L (81-234)
[2020-09-15 14:34] LABS: APPEARANCE,URINE SLIGHTLY CLOUDY; BILIRUBIN, URINE NEGATIVE (NEGATIVE); COLOR,URINE YELLOW; GLUCOSE, URINE (UA) NEGATIVE (NEGATIVE); KETONES,URINE NEGATIVE (NEGATIVE); LEUKOCYTE ESTERASE ,URINE 3+ (NEGATIVE); NITRITE,URINE NEGATIVE (NEGATIVE); PH,URINE 8 (4.5-8.0); PROTEIN,URINE 2+ (NEGATIVE); UROBILINOGEN,URINE NORMAL MG/DL (0.0-1.0)
[2020-09-15 14:49] LABS: INR 1.1 (0.9-1.1)
[2020-09-15 15:10] VITALS: BP 126/62
[2020-09-15 17:20] VITALS: BP 122/55
[2020-09-15 19:00] VITALS: BP 113/51
--- NOTE | 2020-09-15 19:23 | NUR ---
ED Nurse Note: Report given to Yina MUNIZ.
--- NOTE | 2020-09-15 19:24 | NUR ---
ED Nurse Note: Pt resting in bed, VSS no ss of distress noted. will continue to monitor.
--- NOTE | 2020-09-15 19:30 | NUR ---
ED Nurse Note: All swabs sent to lab, pictures of wounds taken and uploaded.
--- NOTE | 2020-09-15 21:00 | NUR ---
NURSE NOTES: received report from Grace MUNIZ., will wait for pt to come up on the floor.
--- NOTE | 2020-09-15 21:45 | NUR ---
TRANSFER TO FLOOR: Patient transferred to SDU per ERMD. Report given to CRISTY Garcia. Pt took all belongings. Pt transported to unit with 1 RN and 1 FAMILY SUPPORT WORKER on telemetry monitor in stable condition.
--- NOTE | 2020-09-15 21:55 | NUR ---
NURSE NOTES: received pt from the ER, pt is obtunded, opens eyes spontaneously. slasher sawyer on. Trach vent Portex 7 AC 16 TV400 Fio2 50% p 5. GT site intact clean, and patent. skin alternation noted, took a picture, and covered with wound protocol. no active bleeding noted. VS measured and recorded. ABD large soft and non-tender. no belongings. right hand 22G right AC 22G IV site intact, clean, and patent. call light within reach. will continue to monitor pt.
[2020-09-15] MEDS ORDERED: SYNTHROID150 MCG ORAL (22:38)
--- NOTE | 2020-09-15 22:54 | NUR ---
NURSE NOTES: notified Dr. Oneil all abnormal labs, and vital signs. received orders, will carry on.
--- NOTE | 2020-09-15 23:05 | NUR ---
NURSE NOTES: notified Dr. Kellen Nicole regarding pt's WBC 12.4 and low grade fever. per Kellen Nicole, " covid swab for now." noted and will carry on.
--- NOTE | 2020-09-15 23:08 | NUR ---
NURSE NOTES: notified Dr. Oneil all abnormal labs, and vital signs. received orders, will carry on. Addendum: 09/15/20 at 2310 by LOBO ROMO RN wrong time
[2020-09-16] VITALS: BP 124/85
--- NOTE | 2020-09-16 00:30 | NUR ---
NURSE NOTES: spoke with Lalita THAKUR from [facility], and obtained flu, PNA information and full code status. noted.
--- NOTE | 2020-09-16 01:00 | NUR ---
NURSE NOTES: BS measured 83 at this time. call light within reach,. asymptomatic.
[2020-09-16] MEDS: Acetaminophen 500mg (ES) tab ORAL PRN (01:28)
[2020-09-16 04:00] VITALS: BP 112/70
--- NOTE | 2020-09-16 05:00 | NUR ---
NURSE NOTES: pt pulled out Iv, inserted new one at the right hand 22G. oral care given, cleaned pt. call light within reach. will continue to monitor pt.
[2020-09-16 05:46] LABS: HEMATOCRIT 22.9 % (37.0-47.0); HEMOGLOBIN 7.5 G/DL (12.0-16.0); MEAN CORPUSCULAR VOLUME 96 FL (80-99); PLATELET COUNT 126 K/UL (150-450); RED BLOOD COUNT 2.39 M/UL (4.20-5.40); RED CELL DISTRIBUTION WIDTH 15.8 % (11.6-14.8); WHITE BLOOD COUNT 10.8 K/UL (4.8-10.8)
--- NOTE | 2020-09-16 05:47 | NUR ---
NURSE NOTES: Bs 85, pt is comfortably resting on the bed. call light within reach. no SOB noted.
[2020-09-16 06:04] LABS: ALANINE AMINOTRANSFERASE 17 U/L (12-78); ALBUMIN 2.4 G/DL (3.4-5.0); ALBUMIN/GLOBULIN RATIO 0.5 (1.0-2.7); ALKALINE PHOSPHATASE 116 U/L (46-116); ANION GAP 7 mmol/L (5-15); ASPARTATE AMINO TRANSFERASE 17 U/L (15-37); BILIRUBIN,TOTAL 0.8 MG/DL (0.2-1.0); BLOOD UREA NITROGEN 30 mg/dL (7-18); CARBON DIOXIDE 24 MMOL/L (21-32); CHLORIDE 106 MMOL/L (98-107); CREATININE 0.7 MG/DL (0.55-1.30); POTASSIUM 4.3 MMOL/L (3.5-5.1); SODIUM 137 MMOL/L (136-145)
--- NOTE | 2020-09-16 06:42 | NUR ---
NURSE NOTES: left voice mail to Dr. Richey regarding vent setting, AC 16 TV400 Fio2 50 P5. pt is now 100% o2 sat. no labor breathing noted. call light within reach. will continue to monitor.
--- NOTE | 2020-09-16 06:52 | NUR ---
NURSE NOTES: left message to Dr. Oneil regarding today's abnormal labs: hbg 7.5 hct 22.9 albumin 2.4 plt 126. will wait for call back.
--- NOTE | 2020-09-16 07:10 | NUR ---
NURSE HAND-OFF REPORT: Important Events on Shift:[new admission, lowgrade fever, need to follow up hgb 7.5 plt 126] Patient Status: [stable] Diet: [NPO] Pending Orders: [n/a] Pending Results/Labs:[Covid swab PCR, isolation swab pending,] Pending MD notification:[cristobal hgb 7.5, Kellen Nicole WBC] Latest Vital Signs: Temperature 98.2 , Pulse 74 , B/P 112 /70 , Respiratory Rate 22 , O2 SAT 100 , Mechanical Ventilator, O2 Flow Rate 50.0 . Vital Sign Comment: [stable] EKG Rhythm: Sinus Rhythm Rhythm change?: N MD Notified?: -n MD Response: Latest [place] Fall Score: 50 Fall Risk: High Risk Safety Measures: Call light Within Reach, Bed Alarm Zone 3, Side Rails Side Rails x3, Bed position Low and Locked. Fall Precautions: Yellow Socks Yellow Gown Door Sign Patient Fall Education Report given to [Flip MUNIZ].
--- NOTE | 2020-09-16 07:40 | NUR ---
NURSE NOTES:Handoff received from CRISTY Brennan. Patient received resting in bed, eyes open but patient does not follow commands. Patient is on trach to vent with the following settings:Portex 7 AC16, TV400, FI02 50% and peep of 5 tolerating well with 02 sat of 100% no signs of acute distress noted, patient is resting calmly in bed. Patient is on contact, airborne and droplet precautions for PUI covid as well as histroy of VRE and ESBL. Patient has purewick external catheter in place, currently NPO per Dr Molina. Dr Briones ordered 1 unit PRBC for patient. Skin issues noted on sacrum and buttocks. Right hand 22g IV clean dry and intact, saline locked. will follow plan of care.
--- NOTE | 2020-09-16 07:51 | NUR ---
RD ASSESSMENT & RECOMMENDATIONS SEE CARE ACTIVITY FOR COMPLETE ASSESSMENT DAILY ESTIMATED NEEDS: Needs based on Wound, critical care 57.5kg abw 25-30 kcals/kg 4649-5918 total kcals 1.25-2 g protein/kg 72-115 g total protein 25-30 mL/kg 5360-3396 total fluid mLs NUTRITION DIAGNOSIS: * Increased kcal/prot needs R/T wound healing as evidenced by pt w/ h/o stage 4 sacral wound, eval is pending. * Swallowing difficulty R/T dysphagia, respiratory status as evidenced by pt is Trach and PEG dep. ENTERAL NUTRITION RECOMMENDATIONS: Glucerna 1.2 @ 55ml/hr x 24 hrs to provide 1320ml, 1584 kcal, 79g pro, 1063ml free H2O * As medically able, start Glucerna 1.2 @35ml/hr for 6 hrs, advance as tolerated q4-6 to goal. * Add TYRESE in 4oz water BID via PEG for wound healing * HOB over 30 degrees/ water flush per MD ADDITIONAL RECOMMENDATIONS: * Calibrated bedscale wt for accurate CBW * Wound healing: TYRESE BID, Vit C 250mg BID F/up w/ WC eval * Monitor lytes, replete as needed * Monitor BGs w/ TF-> bed side BG checks + NISS
--- NOTE | 2020-09-16 07:51 | Consultation ---
History of Present Illness General Chief Complaint: Fever Present Illness Allergies: Coded Allergies: No Known Allergies (Unverified , 11/22/15) Medication History Scheduled Amino Acids/Protein Hydrolys (Proteinex-18 Liquid), 30 ML GT TID, (Reported) Ascorbic Acid (Ascorbic Acid), 5 ML GT BID, (Reported) Carbidopa/Levodopa 25-100 Mg* (Sinemet 25-100 Mg Tablet*), 1 TAB GT Q6HR, (Reported) Cholecalciferol (Vitamin D3) (Vitamin D3), 50 MCG GT DAILY, (Reported) Famotidine* (Pepcid 20mg tablet*), 20 MG GT DAILY, (Reported) Insulin Lispro (Humalog), 0 SUBQ BID, (Reported) Levothyroxine Sodium* (Synthroid*), 150 MCG GT DAILY, (Reported) Levothyroxine Sodium* (Synthroid*), 150 MCG ORAL DAILY, (Reported) Memantine Hcl* (Namenda*), 5 MG GT TWICE A DAY, (Reported) Multivits W-Min/Ferrous Gluc (Multivitamin-Mineral Liquid), 9 MG GT DAILY, (Reported) Zinc Sulfate (Zinc Sulfate*), 220 MG GT DAILY, (Reported) Scheduled PRN Acetaminophen* (Acetaminophen 325MG Tablet*), 650 MG GT Q6HR PRN for For Pain, (Reported) Albuterol Sulfate* (Albuterol Sulfate Hhn*), 3 ML INH Q4H PRN for Shortness of Breath, (Reported) Hydralazine Hcl* (Hydralazine Hcl*), 10 MG GT EVERY 6 HOURS PRN for For High Blood Pressure, (Reported) Hydrocodone Bit/Acetaminophen 5-325* (Knifley 5-325 Tablet*), 1 TAB ORAL DAILY PRN for For Pain, (Reported) Miscellaneous Medications Arginine/Glutamine/Calcium Hmb (Kevin Packet), 1 EACH GT, (Reported) Lactobacillus Acidophilus (Acidophilus), 1 EACH GT, (Reported) Discontinued Medications Amiodarone Hcl* (Cordarone*), 200 MG GT EVERY 12 HOURS, (Reported) Discontinued Reason: Therapy completed Docusate Sodium* (Docusate Sodium*), 100 MG GT Q12HR, (Reported) Discontinued Reason: Therapy completed Furosemide* (Lasix*), 20 MG GT DAILY, (Reported) Discontinued Reason: Therapy completed Patient History Healthcare decision maker Resuscitation status Advanced Directive on File Physical Exam Last 24 Hour Vital Signs Date Time Temp Pulse Resp B/P (MAP) Pulse Ox O2 Delivery O2 Flow Rate FiO2 09/16/20 04:15 74 09/16/20 04:00 50 09/16/20 04:00 98.2 72 22 112/70 (84) 100 09/16/20 04:00 Mechanical Ventilator 09/16/20 03:39 76 32 50 09/16/20 00:00 Mechanical Ventilator 09/16/20 00:00 50 09/16/20 00:00 99.0 70 22 124/85 (98) 100 09/16/20 00:00 82 09/15/20 23:00 Mechanical Ventilator 50.0 09/15/20 22:58 86 26 50 09/15/20 22:42 86 09/15/20 22:30 90 27 92 Mechanical Ventilator 30 09/15/20 21:45 98.9 89 21 120/53 100 Mechanical Ventilator 100 09/15/20 21:26 86 24 30 09/15/20 19:49 90 27 30 09/15/20 19:00 98.2 89 16 113/51 98 Mechanical Ventilator 30 09/15/20 17:20 98.2 70 18 122/55 97 Mechanical Ventilator 09/15/20 17:10 86 26 30 09/15/20 16:03 81 22 30 09/15/20 15:10 98.2 79 17 126/62 99 Mechanical Ventilator 09/15/20 14:31 82 22 30 09/15/20 13:05 98.2 72 18 112/59 99 Room Air 09/15/20 13:05 72 18 Room Air 98 09/15/20 12:51 70 21 30 09/15/20 12:25 98.2 81 18 102/53 (69) 98 Room Air Intake and Output 09/15/20 09/16/20 19:00 07:00 Intake Total 0 ml Balance 0 ml Intake Oral 0 ml # Voids 3 Laboratory Tests Test 09/15/20 13:22 09/15/20 13:25 09/16/20 01:30 09/16/20 03:30 White Blood Count 12.4 K/UL (4.8-10.8) H 10.8 K/UL (4.8-10.8) Red Blood Count 2.72 M/UL (4.20-5.40) L 2.39 M/UL (4.20-5.40) L Hemoglobin 8.5 G/DL (12.0-16.0) L 7.5 G/DL (12.0-16.0) L Hematocrit 26.1 % (37.0-47.0) L 22.9 % (37.0-47.0) L Mean Corpuscular Volume 96 FL (80-99) 96 FL (80-99) Mean Corpuscular Hemoglobin 31.4 PG (27.0-31.0) H 31.5 PG (27.0-31.0) H Mean Corpuscular Hemoglobin Concent 32.8 G/DL (32.0-36.0) 32.9 G/DL (32.0-36.0) Red Cell Distribution Width 15.4 % (11.6-14.8) H 15.8 % (11.6-14.8) H Platelet Count 131 K/UL (150-450) L 126 K/UL (150-450) L Mean Platelet Volume 9.8 FL (6.5-10.1) 10.4 FL (6.5-10.1) H Neutrophils (%) (Auto) 56.2 % (45.0-75.0) % (45.0-75.0) Lymphocytes (%) (Auto) 14.3 % (20.0-45.0) L % (20.0-45.0) Monocytes (%) (Auto) 4.5 % (1.0-10.0) % (1.0-10.0) Eosinophils (%) (Auto) 25.0 % (0.0-3.0) H % (0.0-3.0) Basophils (%) (Auto) 1.1 % (0.0-2.0) % (0.0-2.0) Prothrombin Time 12.0 SEC (9.30-11.50) H Prothromb Time International Ratio 1.1 (0.9-1.1) Activated Partial Thromboplast Time 31 SEC (23-33) D-Dimer 4.14 mg/L FEU (0.00-0.49) H Sodium Level 136 MMOL/L (136-145) 137 MMOL/L (136-145) Potassium Level 4.8 MMOL/L (3.5-5.1) 4.3 MMOL/L (3.5-5.1) Chloride Level 102 MMOL/L (98-107) 106 MMOL/L (98-107) Carbon Dioxide Level 27 MMOL/L (21-32) 24 MMOL/L (21-32) Anion Gap 7 mmol/L (5-15) 7 mmol/L (5-15) Blood Urea Nitrogen 35 mg/dL (7-18) H 30 mg/dL (7-18) H Creatinine 0.6 MG/DL (0.55-1.30) 0.7 MG/DL (0.55-1.30) Estimat Glomerular Filtration Rate > 60 mL/min (>60) > 60 mL/min (>60) Glucose Level 93 MG/DL (74-106) 87 MG/DL (74-106) Lactic Acid Level 0.70 mmol/L (0.4-2.0) Calcium Level 9.9 MG/DL (8.5-10.1) 9.0 MG/DL (8.5-10.1) Magnesium Level 2.0 MG/DL (1.8-2.4) Ferritin 1271 NG/ML (8-388) H Total Bilirubin 0.6 MG/DL (0.2-1.0) 0.8 MG/DL (0.2-1.0) Aspartate Amino Transf (AST/SGOT) 16 U/L (15-37) 17 U/L (15-37) Alanine Aminotransferase (ALT/SGPT) 11 U/L (12-78) L 17 U/L (12-78) Alkaline Phosphatase 138 U/L (46-116) H 116 U/L (46-116) Lactate Dehydrogenase 264 U/L (81-234) H Total Creatine Kinase 35 U/L (26-308) Troponin I 0.012 ng/mL (0.000-0.056) C-Reactive Protein, Quantitative 27.4 mg/dL (0.00-0.90) H Pro-B-Type Natriuretic Peptide Pending Total Protein 8.1 G/DL (6.4-8.2) 7.5 G/DL (6.4-8.2) Albumin 2.6 G/DL (3.4-5.0) L 2.4 G/DL (3.4-5.0) L Globulin 5.5 g/dL 5.1 g/dL Albumin/Globulin Ratio 0.5 (1.0-2.7) L 0.5 (1.0-2.7) L Lipase 49 U/L (73-393) L Urine Color Yellow Urine Appearance Slightly cloudy Urine pH 8 (4.5-8.0) Urine Specific [place] 1.010 (1.005-1.035) Urine Protein 2+ (NEGATIVE) H Urine Glucose (UA) Negative (NEGATIVE) Urine Ketones Negative (NEGATIVE) Urine Blood 4+ (NEGATIVE) H Urine Nitrite Negative (NEGATIVE) Urine Bilirubin Negative (NEGATIVE) Urine Urobilinogen Normal MG/DL (0.0-1.0) Urine Leukocyte Esterase 3+ (NEGATIVE) H Urine RBC 15-20 /HPF (0 - 2) H Urine WBC 60-80 /HPF (0 - 2) H Urine Squamous Epithelial Cells Many /LPF (NONE/OCC) H Urine Bacteria Many /HPF (NONE) H POC Whole Blood Glucose Pending Microbiology Date/Time Source Procedure Growth Status 09/15/20 13:25 Nasopharynx SARS-CoV-2 RdRp Gene Assay - Final Complete Height (Feet): 5 Height (Inches): 4.00 Weight (Pounds): 146 Medications Current Medications Medications (Trade) Dose Ordered Sig/Alex Route PRN Reason Start Time Stop Time Status Last Admin Dose Admin Acetaminophen (Tylenol) 500 mg Q4H PRN ORAL Mild Pain (Pain Scale 1-3) 09/15/20 23:15 10/15/20 23:14 09/16/20 01:28 Acetaminophen (Tylenol) 500 mg Q4H PRN ORAL Temp >100.5 09/15/20 23:15 10/15/20 23:14 Assessment/Plan Assessment/Plan: Hematology/Oncology Consultation Requesting MD: Tony Dupree Date of Service: 09/16/2020 Reason for consultation: Anemia and breast mass HPI: The patient is a 75-year-old female from [facility], well known to me, who presented with increased lethargy and weakness, tachypnea. Here to r/o covid. Currently, calm in bed, slightly lethargic and weak.No complaint. The patient has severe Parkinson disease. Her cardiovascular history is also significant for history of hypertension and bradycardia. Hematology/Oncology was consulted for Anemia and Thrombocytopenia PAST MEDICAL HISTORY: Includes anemia, dementia, Parkinson, urinary tract infection, and hypertension. PAST SURGICAL HISTORY: Unknown. ALLERGIES: Denies smoking. No alcohol. No intravenous drug abuse. MEDICATIONS: Include vancomycin, metoprolol, heparin, amantadine, carbidopa, pramipexole, prazosin, cefepime, albuterol, morphine, Zofran, and temazepam. FAMILY HISTORY: Noncontributory. PHYSICAL EXAMINATION: GENERAL: Slightly confused in bed, oriented x1, CARDIOVASCULAR: No murmur. LUNGS: Poor air exchange.+vent/trach ABDOMEN: Bowel sounds distant.++peg EXTREMITIES: No cyanosis, clubbing, or edema NEUROLOGIC: Neck, weakness as well leaning forward.bedbound++ LABORATORY DATA: 04/2020 white count 4.7, platelets 140 otherwise CBC is normal. BMP shows chloride 110, creatinine 0.4. Albumin 2.9, otherwise normal. INR 1.0, PTT 27. Urinalysis shows 2+ leukocyte esterase. 09/16 wbc 10, hgb 7.5, plt 126 Imaging 07/01/20 cxr Bilateral patchy airspace opacities. Differential includes multifocal pneumonia and pulmonary edema. 09/16/20 cxr b/l infiltrates noted Assessment and Recommendations # Anemia of iron deficiency, has been persistent for months --> Anemia workup has been ordered --> No evidence of hemolysis is noted, peripheral smear has been reviewed. --> Hgb goal >7. Transfuse prn. --> Iron iv has been started x 5 days --> Medications have been reviewed --> gb 9-->8.4->>>>7.5 # Right breast calcifications --> does not have a breast mass on exam --> f/u as outpatient with mammo as needed --> do not do a us breast here # Thrombocytopenia - potential causes multifactorial, evaluate liver and viral etiologies to begin, also could be related to underlying medications, no wimproved --> Hep panel and HIV prior negative -> plt 183->203->199-->125 --> abx # Pna --> antibiotics per id # Sepsis --> antibiotics per Infectious Disease. --> ABX # Dehydration. --> PT and Dietary evaluation. # Hypertension --> Blood pressure control. # Dvt ppx scds The timing of this note does not necessarily reflect the time of the patient was seen Greatly appreciate consultation! Alan Cazares MD Sep 16, 2020 07:51
[2020-09-16 08:00] VITALS: BP 121/71
--- NOTE | 2020-09-16 08:30 | NUR ---
NURSE NOTES:Dr Childs rounded on patient, informed him that the ventilator settings were :AC16, TV400, FI02 50% and PEEP of 5 but that there were [address] Childs stated that the vent settings should be: AC 12, TV400, FIO2 30% and PEEP of 5. duplicate order discontinued and now using the current settings recommended by Dr Childs, RT notified of change in settings.
[2020-09-16 08:38] LABS: % IRON SATURATION 10 % (15-50); IRON 19 ug/dL (50-175); TOTAL IRON BINDING CAPACITY 196 ug/dL (250-450)
[2020-09-16] MEDS ORDERED: Tubing IV Secondary IV ONE (08:55)
[2020-09-16] MEDS ORDERED: NS 275ml ONE (08:55)
--- NOTE | 2020-09-16 11:01 | Diagnostic Imaging Report ---
Indication: Pain and shortness of breath Technique: Grayscale and duplex images of the bilateral lower extremity veins Comparison: None Findings: Bilaterally, grayscale and duplex images demonstrate no evidence of intraluminal thrombus. Normal phasic Doppler waveforms, demonstrating normal augmentation response and no evidence of valvular insufficiency. Greater saphenous vein(s) and tibial veins are patent. Normal compressibility. Impression: Negative for evidence of lower extremity deep venous thrombosis bilaterally
[2020-09-16 12:00] VITALS: BP 127/73
--- NOTE | 2020-09-16 12:37 | NUR ---
NURSE NOTES:Spoke to patient's daughter (Eusebia,Sanjay) regarding blood transfusion consent, Daughter agrees to the transfusion, no questions at this time. Consent witnessed with second RNKenia and placed in patient chart.
--- NOTE | 2020-09-16 12:40 | NUR ---
CASE MANAGEMENT:REVIEW BIBA FROM [facility] CC: FEVER PMH: TRACH/VENT SI: PNEUMONIA. UTI. ANEMIA COVID NEGATIVE 98.3 81 18 102/53 98% ON RA WBC+12.4 H/H-8.5/26.1 BUN+35 IS: 1L NS BOLUS IV ROCEPHIN IV LEVAQUIN CXR BLOOD CX : TO STEP DOWN UNIT DCP; RETURN TO [facility], [facility] [place]
[2020-09-16] MEDS: Piperacillin/Tazobactam 3.375 GM in NS 110 ML IVPB SCH ×2 (14:00→22:11)
--- NOTE | 2020-09-16 14:07 | NUR ---
NURSE NOTES:WOUND CARE NOTES:Pt presented on admission with Tracheostomy, GT, and multiple Pressure injuries. No erythema or evidence of skin breakdown under tracheal collar. dry dark brown skin plaque noted at R lateral chest to R flank. Full thickness Sacral Pressure Injury with undermined borders(L)2cm x (W)2cm x (D)2cm, undermining clockwise 11-3 by 2.3cm @3o'clock.Ability to accurately assess base of wound is not fully appreciated secondary to shape of wound. (+) Epibole along edges of wound. Silver Nitrate sticks application applied to Borders. Bone is palpable when probed.Small amt brown exudate noted. No odor noted. Emmet Atrophic scar periwound. Resolving Pressure Injury R Ischium. Emmet epithelial noted at base of wound. Intact serous Blister noted to monica/upper L thigh. No erythema or changes in skin temp at affected site. Reabsorbing DTPI L Hallux. Base of Pressure injury is dark brown,dry without erythema,induration or fluctuance. L Heel is boggy with non-blanchable erythema. R Heel is boggy but blanchable. Tx.Plan: Cleanse Sacral wound with Saline. Loosely pack with Therahoney impregnated Kerlix.Apply Moisture Barrier Paste periwound. Cover with Optifoam drsg every 3 days and prn. Apply Moisture Barrier Paste to R Ischium. Cover with Optifoam drsg. Change every 3 days and prn. Apply Phytoplex Skin Nourishing lotion to Lateral R chest /R Flank Daily. Apply Cavilon Skin Barrier to R and L Heel. Cover each heel with Optifoam drsg.Change every 7 days and prn. Reposition at least every 2hours or as tolerated. Off-load heels with pillow.
--- NOTE | 2020-09-16 14:10 | Cardiac Electrophysiology PN ---
Subjective Subjective [id number] Objective Last 24 Hour Vital Signs Date Time Temp Pulse Resp B/P (MAP) Pulse Ox O2 Delivery O2 Flow Rate FiO2 09/16/20 12:00 Mechanical Ventilator 09/16/20 12:00 72 09/16/20 12:00 98.4 79 14 127/73 (91) 98 09/16/20 12:00 30 09/16/20 11:05 81 22 50 09/16/20 08:00 50 09/16/20 08:00 72 09/16/20 08:00 98.1 73 20 121/71 (88) 100 09/16/20 08:00 Mechanical Ventilator 09/16/20 07:20 74 21 50 09/16/20 04:15 74 09/16/20 04:00 50 09/16/20 04:00 98.2 72 22 112/70 (84) 100 09/16/20 04:00 Mechanical Ventilator 09/16/20 03:39 76 32 50 09/16/20 00:00 Mechanical Ventilator 09/16/20 00:00 50 09/16/20 00:00 99.0 70 22 124/85 (98) 100 09/16/20 00:00 82 09/15/20 23:00 Mechanical Ventilator 50.0 09/15/20 22:58 86 26 50 09/15/20 22:42 86 09/15/20 22:30 90 27 92 Mechanical Ventilator 30 09/15/20 21:45 98.9 89 21 120/53 100 Mechanical Ventilator 100 09/15/20 21:26 86 24 30 09/15/20 19:49 90 27 30 09/15/20 19:00 98.2 89 16 113/51 98 Mechanical Ventilator 30 09/15/20 17:20 98.2 70 18 122/55 97 Mechanical Ventilator 09/15/20 17:10 86 26 30 09/15/20 16:03 81 22 30 09/15/20 15:10 98.2 79 17 126/62 99 Mechanical Ventilator 09/15/20 14:31 82 22 30 Intake and Output 09/15/20 09/16/20 19:00 07:00 Intake Total 0 ml Balance 0 ml Intake Oral 0 ml # Voids 3 Laboratory Tests Test 09/16/20 01:30 09/16/20 03:30 09/16/20 03:35 POC Whole Blood Glucose Pending White Blood Count 10.8 K/UL (4.8-10.8) Red Blood Count 2.39 M/UL (4.20-5.40) L Hemoglobin 7.5 G/DL (12.0-16.0) L Hematocrit 22.9 % (37.0-47.0) L Mean Corpuscular Volume 96 FL (80-99) Mean Corpuscular Hemoglobin 31.5 PG (27.0-31.0) H Mean Corpuscular Hemoglobin Concent 32.9 G/DL (32.0-36.0) Red Cell Distribution Width 15.8 % (11.6-14.8) H Platelet Count 126 K/UL (150-450) L Mean Platelet Volume 10.4 FL (6.5-10.1) H Neutrophils (%) (Auto) % (45.0-75.0) Lymphocytes (%) (Auto) % (20.0-45.0) Monocytes (%) (Auto) % (1.0-10.0) Eosinophils (%) (Auto) % (0.0-3.0) Basophils (%) (Auto) % (0.0-2.0) Sodium Level 137 MMOL/L (136-145) Potassium Level 4.3 MMOL/L (3.5-5.1) Chloride Level 106 MMOL/L (98-107) Carbon Dioxide Level 24 MMOL/L (21-32) Anion Gap 7 mmol/L (5-15) Blood Urea Nitrogen 30 mg/dL (7-18) H Creatinine 0.7 MG/DL (0.55-1.30) Estimat Glomerular Filtration Rate > 60 mL/min (>60) Glucose Level 87 MG/DL (74-106) Calcium Level 9.0 MG/DL (8.5-10.1) Total Bilirubin 0.8 MG/DL (0.2-1.0) Aspartate Amino Transf (AST/SGOT) 17 U/L (15-37) Alanine Aminotransferase (ALT/SGPT) 17 U/L (12-78) Alkaline Phosphatase 116 U/L (46-116) Total Protein 7.5 G/DL (6.4-8.2) Albumin 2.4 G/DL (3.4-5.0) L Globulin 5.1 g/dL Albumin/Globulin Ratio 0.5 (1.0-2.7) L Iron Level 19 ug/dL (50-175) L Total Iron Binding Capacity 196 ug/dL (250-450) L Percent Iron Saturation 10 % (15-50) L Unsaturated Iron Binding 177 ug/dL (112-346) Microbiology Date/Time Source Procedure Growth Status 09/15/20 13:25 Nasopharynx SARS-CoV-2 RdRp Gene Assay - Final Complete Flex Bess MD Sep 16, 2020 14:10
--- NOTE | 2020-09-16 15:11 | NUR ---
NURSE NOTES:Pre-transfusion vitals temperature 99.9, BP 139/75 and heart rate of 95. Removed blanket from patient and left the sheet coering patient. started the transfusion at 70ML/HR.
--- NOTE | 2020-09-16 15:26 | NUR ---
NURSE NOTES:Transfusion has been running for 15 minutes, vitals are now: Temp 99.0, HR 110 and BP of 136/93 infusion rate increased to 100ML/HR. patient tolerating well with no signs of transfusion reaction.
--- NOTE | 2020-09-16 15:28 | Diagnostic Imaging Report ---
Indication: Abdominal pain, abnormal liver function tests, abnormal renal function tests, Covid positive Technique: Grayscale and duplex images of the upper abdomen. Doppler interrogation of the pancreatic vessels. Exam limited, due to Covid positivity Comparison: none Findings: The liver surface is smooth. The gallbladder is unremarkable, no stones, wall thickening, nor pericholecystic fluid. The common bile duct is mildly ectatic, measuring up to 9 mm in diameter. No intrahepatic biliary ductal dilatation. The liver is not enlarged. The right kidney measures 9.6 cm in length. The right kidney demonstrates a 1 cm calculus in the renal sinus an other smaller calculi. No hydronephrosis. It demonstrates slightly increased echogenicity. The left kidney and spleen could not be imaged, due to the patient being contracted. Impression: Limited exam, due to patient contracture and body habitus, nonvisualized spleen and left kidney Equivocal slightly increased right renal echogenicity, could indicate medical renal disease if real. Negative right necrosis Nonobstructive right renal collecting system calculi Negative for gallstones. Mildly ectatic common bile duct. Could indicate downstream obstruction, or could just be related to patient's age. Recommend correlation with liver function tests, consideration for MRCP if clinically indicated Normal-appearing liver
--- NOTE | 2020-09-16 15:44 | Consultation ---
DATE OF CONSULTATION: 09/16/2020 CARDIOLOGY CONSULTATION REFERRING PHYSICIAN: Sandeep Oneil M.D. Additional referring physician is Tony Dupree D.O. REASON FOR CONSULTATION: Management of hypertension. HISTORY OF PRESENT ILLNESS: The patient is a 75-year-old lady from [facility] with history of hypertension, who was brought to the emergency room for increased lethargy and weakness. The patient is being ruled out for COVID. The patient has chronic ventilator dependence via tracheostomy as well as dysphagia, status post PEG placement. The patient has been ruled out for COVID and is awaiting PCR. The patient also was severely anemic with hemoglobin of 7.5 and was getting 1 unit of blood transfusion. The patient also has history of bradycardia. REVIEW OF SYSTEMS: Negative other than what is mentioned in history of present illness, but difficult to obtain in view of the tracheostomy status. The patient opens her eyes. PAST MEDICAL HISTORY: As mentioned above. FAMILY HISTORY: Noncontributory. SOCIAL HISTORY: care home resident. Does not smoke or drink alcohol. PHYSICAL EXAMINATION: VITAL SIGNS: Blood pressure 122/73, pulse 79, respirations 18, and temperature 98.4. HEAD AND NECK: No JVD. LUNGS: Coarse rhonchi. CARDIOVASCULAR: Regular S1 and S2 with no gallop. ABDOMEN: Status post PEG. EXTREMITIES: 1+ pitting edema. . LABORATORY AND DIAGNOSTIC STUDIES: Her labs show white count of 10.8, hemoglobin 7.5, hematocrit 23, and platelet count of 126. Sodium 137, potassium 4.3, BUN of 30, creatinine 0.7. The first troponin was negative. BNP is 4126. ASSESSMENT AND PLAN: 1. Hypertension, currently blood pressure stable. I will add p.r.n. clonidine to her medical regimen. 2. Shortness of breath and ventilator-dependent respiratory failure. The patient is status post tracheostomy on 30% FiO2, in sinus rhythm, awaiting PCR. The rapid COVID was negative. 3. Severe anemia, hemoglobin 7.5. The patient will be getting blood transfusion. Etiology is not clear at this time, but creatinine is within normal range. 4. Elevated BNP of more than 4000. Echocardiogram is pending at the time of this dictation. 5. Dysphagia, status post PEG placement. Thank you very much for allowing me to participate in the care of this patient. Please do not hesitate to contact me for any questions regarding my evaluation. Flex Bess M.D. DR: HARPER JOB#: [id number] CC:
[2020-09-16 16:00] VITALS: BP 143/70
--- NOTE | 2020-09-16 16:01 | NUR ---
NURSE NOTES:called Cary Nicole as patient blood culture came back with Gram positive cocci in clusters and pairs. ordered vancomycin with pharmacy to dose. Order placed.
--- NOTE | 2020-09-16 17:04 | NUR ---
NURSE NOTES:contacted Dr Oneil for GI consult as patient is NPO and I noticed that patient had some slight serosanguineous discharge from Gtube site.
--- NOTE | 2020-09-16 17:28 | NUR ---
NURSE NOTES:Non-administered 1400 Zosyn as waiting for blood bank to call with patient unit of PRBC. -
--- NOTE | 2020-09-16 17:32 | NUR ---
NURSE NOTES:called pharmacy to let them know that the Zosyn was non-administered. Pharmacy aware.
[2020-09-16] MEDS ORDERED: Vancomycin 1.25gm/250ml Premix IVPB ONE (18:00)
--- NOTE | 2020-09-16 18:06 | Consultation ---
DATE OF CONSULTATION: 09/16/2020 INFECTIOUS DISEASES CONSULTATION CONSULTING PHYSICIAN: Mahesh Nicole MD. PRIMARY ATTENDING PHYSICIAN: Sandeep Oneil MD. REASON FOR CONSULT: Pneumonia, UTI. HISTORY OF PRESENT ILLNESS: This is a 75-year-old female, who is a jail resident, admitted yesterday because of fever, may have borderline leukocytosis of 12.4, had no fever in hospital, have abnormal chest x-ray and pyuria. PAST MEDICAL HISTORY: Ventilator-dependent respiratory failure, Parkinson disease, COPD, diabetes mellitus, hypertension, dysphagia, atrial fibrillation, quadriplegia. PAST SURGICAL HISTORY: G-tube placement and tracheostomy. ALLERGIES: No known drug allergies. MEDICATIONS: Getting iron sucrose, Tylenol. Got a dose of ceftriaxone and Levaquin in the ER. SOCIAL HISTORY: Single, jail resident. No other history obtainable by the patient, has poor mental and functional status. PHYSICAL EXAMINATION: VITAL SIGNS: Temperature 98.1, pulse 73, blood pressure 121/71. HEAD AND NECK: Status post tracheostomy. HEART: Normal rate. LUNGS: Has bilateral rhonchi on ventilator. ABDOMEN: Soft. G-tube in place. EXTREMITIES: No edema or fracture. SKIN: Stage IV sacral ulcer. LABORATORY DATA: COVID test was negative. WBC today is 10.8, hemoglobin 7.5, hematocrit 22.9, and platelets is 126. Sodium 137, potassium 4.3, chloride 106, bicarb 24, BUN 30, creatinine 0.7. Iron was low at 19, TIBC 196. Chest x-ray showed interstitial infiltrates or edema, negative for DVT of the legs. UA showed wbc's of 60 to 80, leukocyte esterase 3+, bacteria many, blood 4+. IMPRESSION: Abnormal chest x-ray may have pneumonia, pyuria, UTI, ventilator-dependent respiratory failure, quadriplegia, stage IV sacral ulcer, COPD, iron deficiency anemia, hypertension, history of atrial fibrillation. RECOMMENDATION: We will obtain sputum culture. We will follow urine cultures. We will start empirically on Zosyn. At the end of my exam, I thank Dr. Oneil for involving me in the care of this patient. Mahesh Nicole M.D. DR: ASHLEY JOB#: [id number] CC:
--- NOTE | 2020-09-16 18:15 | Consultation ---
DATE OF CONSULTATION: 09/16/2020 CONSULTING PHYSICIAN: Mino Childs MD REASON FOR ADMISSION: Fever. HISTORY OF PRESENT ILLNESS: This is a 75-year-old female, transferred from longterm facility for evaluation of fever. The patient was admitted to [facility] on 09/15/2020. She has a history of hypertension, COPD, status post trach, vent, encephalopathy, gastritis, Parkinson disease. Her troponin was negative. D-dimer was elevated. Subsequent venous duplex ultrasound was negative for lower extremity DVT. Chest x-ray shows bilateral interstitial infiltrates. Ultrasound of the abdomen result pending. 2D echocardiogram result pending. Patient tested negative for COVID-19 swab. PCR COVID-19 test result pending. On evaluation, she is calm in bed, slightly lethargic and weak. She is afebrile. She is ventilator dependent, saturating at 98%. PAST MEDICAL HISTORY: Notable for hypertension, COPD, diabetes mellitus, anemia, schizophrenia, ventilator-dependent respiratory failure, right breast calcification. SURGERIES: Unknown. MEDICATIONS: Include acetaminophen, albuterol sulfate, carbidopa/levodopa, cholecalciferol, famotidine, hydralazine, [place], insulin, levothyroxine, memantine, multivitamin, zinc sulfate. REVIEW OF SYSTEMS: Unreliable. PHYSICAL EXAMINATION: VITAL SIGNS: Blood pressure 127/73, heart rate 79, respiratory rate 14, height 162 cm, weight 66 kg. GENERAL: Slightly confused in bed, oriented x1. HEENT: Head exam reveals that the head is normocephalic, atraumatic without deformity or unusual swelling. Pupils are round, reactive to light and accommodation normally. CHEST AND LUNGS: Coarse rhonchi noted, on trach vent. CARDIOVASCULAR: Reveals normal S1, S2. ABDOMEN: Distended. RECTAL: Deferred. MUSCULOSKELETAL: There is no tenderness to palpation. EXTREMITIES: There is no cyanosis, peripheral edema, or clubbing. NEUROLOGICAL: Alert and oriented x1. LABORATORY DATA: CBC, hemoglobin 7.5, hematocrit 22.9, platelet count 126. Chemistries show BUN 30, iron 19, TIBC 196, albumin 2.4, otherwise unremarkable. Urinalysis shows 2+ protein, 4+ blood, 3+ leukocyte esterase, many urine bacteria. IMPRESSION: 1. Anemia, likely iron deficiency. - On IV iron. - Plan for transfusion p.r.n. noted per Dr. Cazares. - Anemia workup ordered per Dr. Cazares. 2. Interstitial infiltrates, likely pneumonia. - Antibiotics per ID. - Continue supplemental oxygen via ventilator. 3. Sepsis. - Antibiotics per ID. 4. History of fever. - Currently afebrile. 5. Possible COVID-19 infection. - Swab COVID-19 test negative. - Awaiting PCR COVID-19 test results. - Stable on vent. 6. CHF. - 2D echocardiogram ordered per Cardio. 7. UTI. - On antibiotics. 8. Elevated D-dimer. 9. DVT prophylaxis. - Venous duplex ultrasound negative. - SCD added. The care for this patient was discussed with my supervising physician. Time spent for this case was approximately 31 minutes. Mino Childs M.D. JILLIAN Rowland DR: DENI JOB#: [id number] CC:
--- NOTE | 2020-09-16 18:15 | NUR ---
NURSE NOTES:Blood transfusion complete, patient tolerated well.
--- NOTE | 2020-09-16 19:18 | NUR ---
NURSE HAND-OFF REPORT: Important Events on Shift:Blood cultures positive MD aware. 1 Unit PRBC's administered. Patient Status: Stable Diet: NPO Pending Orders: Pending Results/Labs: Pending MD notification: Latest Vital Signs: Temperature 99.2 , Pulse 94 , B/P 143 /70 , Respiratory Rate 24 , O2 SAT 99 , Mechanical Ventilator, O2 Flow Rate 50.0 . Vital Sign Comment: EKG Rhythm: Sinus Rhythm Rhythm change?: N MD Notified?: - MD Response: Latest [place] Fall Score: 50 Fall Risk: High Risk Safety Measures: Call light Within Reach, Bed Alarm Zone 3, Side Rails Side Rails x3, Bed position Low and Locked. Fall Precautions: Door Sign Report given to CRISTY Amaya.
--- NOTE | 2020-09-16 19:20 | NUR ---
NURSE NOTES: Received report from Flip. Pt in bed obtunded, open eyes. On vent to trach , with current setting of AC 12, TV400, FIO2 30% and PEEP of 5, tolerating well with saturation of 98%. Sr on cardiac tech with heart rate of 80 bpm. Noted of low grade fever upon initial assessment of 99.3. With Gtube in place, noted with blood tinged mucus around the area. No feeding running. Iv access on R ac #20 SL and R Hand # 22, both are intact, patent and flushed well. Purewick in place. Safety measure in place, bed in lowest positioned and locked, call light within reach. Will continue plan of care and monitor the pt.
[2020-09-16 20:00] VITALS: BP 146/82
[2020-09-16] MEDS: Iron Sucrose 100 MG in NS 55 ML IVPB SCH (21:15)
--- NOTE | 2020-09-16 22:31 | History and Physical Report ---
DATE OF ADMISSION: 09/15/[address] Tony Dupree's patient. I am covering Dr. Tony Dupree. HISTORY OF PRESENT ILLNESS: Patient is being admitted for pneumonia and UTI. Patient has PEG and trach. Nonverbal. Unable to obtain any other history. Patient also has anemia. Admitted for those reasons. Patient basically also came with history of fever. Patient unable to give any history. PAST MEDICAL HISTORY: Significant for anemia, Parkinson's, schizophrenia, dementia, diabetes, hypertension, trach and PEG, vent dependence, history of sacral decubitus, thrombocytopenia, breast calcification, hypothyroidism. PAST SURGICAL HISTORY: Trach and PEG. FAMILY HISTORY: Unable to obtain. SOCIAL HISTORY: Unable to obtain. REVIEW OF SYSTEMS: Unable to obtain. Patient is a poor historian. ALLERGIES: No known allergies. MEDICATIONS: Vitamin C, Sinemet, vitamin D, famotidine, insulin, hydralazine, Levoxyl, Namenda, multivitamin, zinc. PHYSICAL EXAMINATION: VITAL SIGNS: Temperature 99.2, pulse is 91, blood pressure 143/70. NECK: Trach site is intact. CHEST: Bibasilar rhonchi. CARDIOVASCULAR: Regular rate and rhythm. No murmurs, rubs, or extra sounds. GASTROINTESTINAL: Soft, nontender, nondistended. Mild erythema around the G-tube site. Abdomen is soft, nontender. EXTREMITIES: No edema. Dorsalis pedis pulses are present. NEUROLOGIC: Does not follow neurological exam. Chest x-ray impression read as bilateral interstitial infiltrates versus edema. LABORATORY DATA: WBC of 12.4, hemoglobin 8.5, platelets 131. Sodium 137, potassium 4.3, BUN of 30, creatinine 0.7, glucose of 87. ASSESSMENT AND PLAN: Pulmonary edema versus pneumonia, UTI, respiratory insufficiency, anemia, and little bit of bleeding around the G-tube site. I have asked Dr. Cazares, Dr. Bess, Dr. Chau, Dr. Childs, Dr. Romano, Dr. Mahesh Nicole to see the patient for the management of pneumonia and bleeding around the G-tube site as well as for transfusion if needed as well as for the fluid management for the CHF. Sandeep Oneil M.D. DR: VALERIE JOB#: [id number] CC:
[2020-09-17] VITALS: BP 139/78
--- NOTE | 2020-09-17 00:29 | NUR ---
NURSE NOTES: Turned and repositioned pt, still noted of blood tinge with mix of mucus around the gtube site. Has an order of consult with Dr Romano. In no apparent cardiac and respiratory distress noted. Oral care provided. Will continue to monitor.
--- NOTE | 2020-09-17 02:30 | NUR ---
NURSE NOTES: Repositioned and turned pt. Cleaned and kept pt dry. Dressing changed. P-200 mattress in placed.
[2020-09-17 04:00] VITALS: BP 141/76
--- NOTE | 2020-09-17 04:28 | NUR ---
NURSE NOTES: Ekg done, with readings of Normal sinus rhythm
[2020-09-17 04:39] LABS: HEMATOCRIT 28.2 % (37.0-47.0); HEMOGLOBIN 9.7 G/DL (12.0-16.0); MEAN CORPUSCULAR VOLUME 92 FL (80-99); PLATELET COUNT 124 K/UL (150-450); RED BLOOD COUNT 3.08 M/UL (4.20-5.40); RED CELL DISTRIBUTION WIDTH 15.5 % (11.6-14.8); WHITE BLOOD COUNT 10.3 K/UL (4.8-10.8)
[2020-09-17] MEDS: Piperacillin/Tazobactam 3.375 GM in NS 110 ML IVPB SCH ×3 (05:15→22:16)
[2020-09-17 05:17] LABS: ALANINE AMINOTRANSFERASE 20 U/L (12-78); ALBUMIN 2.7 G/DL (3.4-5.0); ALBUMIN/GLOBULIN RATIO 0.5 (1.0-2.7); ALKALINE PHOSPHATASE 114 U/L (46-116); ANION GAP 9 mmol/L (5-15); ASPARTATE AMINO TRANSFERASE 15 U/L (15-37); BILIRUBIN,TOTAL 1.3 MG/DL (0.2-1.0); BLOOD UREA NITROGEN 26 mg/dL (7-18); CALCIUM 9.6 MG/DL (8.5-10.1); CARBON DIOXIDE 24 MMOL/L (21-32); CHLORIDE 108 MMOL/L (98-107); CREATININE 0.7 MG/DL (0.55-1.30); FERRITIN 1738 NG/ML (8-388); SODIUM 141 MMOL/L (136-145)
[2020-09-17 05:36] LABS: BILIRUBIN,DIRECT 0.3 MG/DL (0.0-0.3)
--- NOTE | 2020-09-17 07:11 | NUR ---
NURSE HAND-OFF REPORT: Important Events on Shift:Stable Patient Status: Stable Diet: NPO Pending Orders: Pending Results/Labs: Pending MD notification: Latest Vital Signs: Temperature 99.9 , Pulse 87 , B/P 141 /76 , Respiratory Rate 24 , O2 SAT 98 , Mechanical Ventilator, O2 Flow Rate 50.0 . Vital Sign Comment: Stable EKG Rhythm: Sinus Rhythm Rhythm change?: N MD Notified?: - MD Response: Latest [place] Fall Score: 50 Fall Risk: High Risk Safety Measures: Call light Within Reach, Bed Alarm Zone 3, Side Rails Side Rails x3, Bed position Low and Locked. Fall Precautions: Door Sign Report given to CRISTY Castelan
--- NOTE | 2020-09-17 07:21 | NUR ---
NURSE NOTES:Handoff received from CRISTY Amaya. Patient received awake obtunded in bed, eyes opening spontaneously. Patient is on trach to vent with following settings: AC12, TV400, FIO2 30% and PEEP of 5, tolerating well with saturation of 99%. care attendant is on with heart rate of 96, no acute signs of distress noted. G tube is in place, no feeding at this time as patient is NPO. Patient is on contact, droplet and airborne precautions for PUI pending result as well as fall and aspiration precaution, bed in the low and locked position, call light under right hand as patient has some movement of right hand. Patient is on p200 mattress and has SCD's on. IV sites are both clean dry and intact, with Zosyn still running. purewick is attached to suction. will follow plan of care.
[2020-09-17 08:00] VITALS: BP 144/91
--- NOTE | 2020-09-17 09:41 | NUR ---
NURSE NOTES:Contacted Dr Romano as patient is currently NPO and also to alert him that patient had some serosanguineous bleeding from her G tube site. awaiting MD response.
--- NOTE | 2020-09-17 09:54 | NUR ---
NURSE NOTES:Contacted Dr Childs as patient home medications have been discontinued by primary MD Oneil, patient is not currently receiving their regular daily medications for insulin, BP, thyroid medications etc. Awaiting for MD reply.
--- NOTE | 2020-09-17 10:01 | NUR ---
NURSE NOTES:Dr Childs returned my call, informed me to contact the primary MD as this is a non-pulmonary issue. Will contact primary MD regarding patient home medications.
--- NOTE | 2020-09-17 10:05 | NUR ---
NURSE NOTES:Contacted Dr Oneil to notify him that patient is not receiving her home medications. MD stated that he is aware and that this is intentional.
--- NOTE | 2020-09-17 11:22 | NUR ---
NURSE NOTES:Dr Romano rounded on patient, informed him about patient NPO status and that patient had some serosanguineous discharge. ordered G tube feeding on Glucerna 1.2@50ML/HR.
[2020-09-17 11:44] VITALS: BP 154/68
--- NOTE | 2020-09-17 11:51 | NUR ---
NURSE NOTES:G tube feeding of glucerna 1.2 started at 30ML/HR.
[2020-09-17] MEDS: Pantoprazole Inj IVP SCH ×2 (14:15→21:13)
--- NOTE | 2020-09-17 15:36 | Pulmonology Progress Note ---
Subjective ROS Limited/Unobtainable: Yes Interval Events: home meds on hold per Dr. Oneil Allergies: Coded Allergies: No Known Allergies (Unverified , 11/22/15) Objective Last 24 Hour Vital Signs Date Time Temp Pulse Resp B/P (MAP) Pulse Ox O2 Delivery O2 Flow Rate FiO2 09/17/20 12:00 88 09/17/20 11:47 30 09/17/20 11:47 Mechanical Ventilator 09/17/20 11:44 99.3 95 22 154/68 (96) 97 09/17/20 08:00 83 09/17/20 08:00 30 09/17/20 08:00 98.2 85 24 144/91 (108) 99 09/17/20 08:00 Mechanical Ventilator 09/17/20 04:27 87 09/17/20 04:00 99.9 85 24 141/76 (97) 98 09/17/20 04:00 30 09/17/20 04:00 Mechanical Ventilator 09/17/20 03:33 90 26 30 09/17/20 00:15 88 09/17/20 00:00 Mechanical Ventilator 09/17/20 00:00 99.4 104 25 139/78 (98) 97 09/16/20 23:15 87 24 30 09/16/20 20:00 Mechanical Ventilator 09/16/20 20:00 99.0 83 24 146/82 (103) 98 09/16/20 20:00 30 09/16/20 19:51 82 09/16/20 19:10 84 22 30 09/16/20 16:00 99.2 91 24 143/70 (94) 99 09/16/20 16:00 30 09/16/20 16:00 94 09/16/20 16:00 Mechanical Ventilator Intake and Output 09/16/20 09/17/20 19:00 07:00 Intake Total 120 ml 270 ml Balance 120 ml 270 ml Free Water 120 ml 100 ml IV Total 170 ml # Voids 2 # Bowel Movements 1 Objective 09/17 saturating well on current vent setting General Appearance: no acute distress HEENT: normocephalic, atraumatic Respiratory: other - coarse rhonchi Cardiovascular: normal rate, regular rhythm Abdomen: distended Microbiology Date/Time Source Procedure Growth Status 09/16/20 18:00 Sputum Expectorated Gram Stain - Final Resulted 09/16/20 18:00 Sputum Expectorated Sputum Culture Pending Resulted 09/15/20 13:25 Urine,Clean Catch Urine Culture - Preliminary Gram Negative Lopez Resulted 09/15/20 13:25 Nasopharynx SARS-CoV-2 RdRp Gene Assay - Final Complete 09/15/20 13:25 Blood Blood Culture - Preliminary Strep Species, Gamma-Hemolytic Resulted 09/15/20 13:10 Blood Blood Culture - Preliminary NO GROWTH AFTER 24 HOURS Resulted Laboratory Tests 09/16/20 16:52: POC Whole Blood Glucose 75 09/16/20 22:21: POC Whole Blood Glucose 80 09/17/20 03:40: White Blood Count 10.3, Red Blood Count 3.08L, Hemoglobin 9.7L, Hematocrit 28.2L , Mean Corpuscular Volume 92, Mean Corpuscular Hemoglobin 31.4H, Mean Corpuscular Hemoglobin Concent 34.3, Red Cell Distribution Width 15.5H, Platelet Count 124L, Mean Platelet Volume 10.2H, Neutrophils (%) (Auto) , Lymphocytes (%) (Auto) , Monocytes (%) (Auto) , Eosinophils (%) (Auto) , Basophils (%) (Auto) , Differential Total Cells Counted 100, Neutrophils % (Manual) 60, Lymphocytes % (Manual) 14L, Monocytes % (Manual) 5, Eosinophils % (Manual) 21H, Basophils % (Manual) 0, Band Neutrophils 0, Platelet Estimate DecreasedL, Platelet Morphology Normal, Polychromasia 1+, Hypochromasia 1+, Anisocytosis 1+, Sodium Level 141, Potassium Level 4.0, Chloride Level 108H, Carbon Dioxide Level 24, Anion Gap 9, Blood Urea Nitrogen 26H, Creatinine 0.7, Estimat Glomerular Filtration Rate > 60, Glucose Level 92, Uric Acid 6.4, Calcium Level 9.6, Phosphorus Level 2.0L, Magnesium Level 2.0, Ferritin 1738H, Total Bilirubin 1.3H , Direct Bilirubin 0.3, Aspartate Amino Transf (AST/SGOT) 15, Alanine Aminotransferase (ALT/SGPT) 20, Alkaline Phosphatase 114, Troponin I 0.004, C- Reactive Protein, Quantitative 23.8H, Pro-B-Type Natriuretic Peptide [Pending], Total Protein 8.3H, Albumin 2.7L, Globulin 5.6, Albumin/Globulin Ratio 0.5L, Vitamin B12 Level 1819H, Folate 73.1H 09/17/20 06:24: POC Whole Blood Glucose 83 09/17/20 11:38: POC Whole Blood Glucose 81 Current Medications Medications (Trade) Dose Ordered Sig/Alex Route PRN Reason Start Time Stop Time Status Last Admin Dose Admin Acetaminophen (Tylenol) 500 mg Q4H PRN ORAL Mild Pain (Pain Scale 1-3) 09/15/20 23:15 10/15/20 23:14 09/16/20 01:28 Acetaminophen (Tylenol) 500 mg Q4H PRN ORAL Temp >100.5 09/15/20 23:15 10/15/20 23:14 Iron Sucrose 100 mg/Sodium Chloride 60 ml @ 240 mls/hr BEDTIME IVPB 09/16/20 21:00 09/20/20 21:14 09/16/20 21:15 Pantoprazole (Protonix) 40 mg EVERY 12 HOURS IVP 09/17/20 14:15 10/17/20 14:14 09/17/20 14:15 Piperacillin Sod/ Tazobactam Sod 3.375 gm/Sodium Chloride 110 ml @ 27.5 mls/hr EVERY 8 HOURS IVPB 09/16/20 14:00 09/21/20 21:59 09/17/20 13:21 Vancomycin HCl (Vanco pharmacy to dose) 1 ea DAILY PRN MISC Per rx protocol 09/16/20 16:00 10/16/20 15:59 Vancomycin HCl 1 gm/Sodium Chloride 275 ml @ 183.708 mls/hr Q24H IVPB 09/17/20 18:00 09/22/20 17:59 Assessment/Plan Assessment/Plan 1. Anemia, likely iron deficiency. - On IV iron. - s/p transfusion per Dr. Cazares. - Anemia workup ordered per Dr. Cazares. 2. Interstitial infiltrates, likely pneumonia. - Antibiotics per ID. - Continue supplemental oxygen; continue ventilator, AC mode. 3. Sepsis. - Antibiotics per ID. 4. History of fever. - Currently afebrile. 5. Possible COVID-19 infection. - Swab COVID-19 test negative. - Awaiting PCR COVID-19 test results. 6. CHF. - 2D echocardiogram ordered per Cardio. 7. UTI. - On antibiotics. 8. Elevated D-dimer. 9. DVT prophylaxis. - Venous duplex ultrasound negative. - on SCD The care for this patient was discussed with my supervising physician. Time spent for this case was approximately 31 minutes. Uriel Díaz Sep 17, 2020 15:36 Mino Childs MD Sep 17, 2020 16:41
[2020-09-17 16:00] VITALS: BP 146/77
--- NOTE | 2020-09-17 16:40 | NUR ---
NURSE NOTES:Dr Bess rounded on patient, informed him that patient BP has been increasing over the past 2 days, MD gave verbal order for Hydralazine 10MG IV [id number] PRN for SBP >170 and Clonidine 0.1MG G tube, Q2Hour PRN for SBP> 160.
--- NOTE | 2020-09-17 17:23 | Cardiac Electrophysiology PN ---
Assessment/Plan Assessment/Plan 1. Hypertension, currently blood pressure stable. On p.r.n. Hydralazine and clonidine 2. Ventilator-dependent respiratory failure status post tracheostomy on 30% FiO2, in sinus rhythm, awaiting PCR. The rapid COVID was negative. 3. Severe anemia, hemoglobin 7.5. The patient will be getting blood transfusion. Etiology is not clear at this time, but creatinine is within normal range. 4. Elevated BNP of more than 4000. Echo EF 65% 5. Dysphagia, status post PEG placement. Subjective Subjective Rapid Covid is negative. Awaiting PCR. On the Vent with 30% Fio2 off restraints Objective Last 24 Hour Vital Signs Date Time Temp Pulse Resp B/P (MAP) Pulse Ox O2 Delivery O2 Flow Rate FiO2 09/17/20 16:00 98.2 81 18 146/77 (100) 99 09/17/20 16:00 Mechanical Ventilator 09/17/20 16:00 30 09/17/20 16:00 75 09/17/20 12:00 88 09/17/20 11:47 30 09/17/20 11:47 Mechanical Ventilator 09/17/20 11:44 99.3 95 22 154/68 (96) 97 09/17/20 08:00 83 09/17/20 08:00 30 09/17/20 08:00 98.2 85 24 144/91 (108) 99 09/17/20 08:00 Mechanical Ventilator 09/17/20 04:27 87 09/17/20 04:00 99.9 85 24 141/76 (97) 98 09/17/20 04:00 30 09/17/20 04:00 Mechanical Ventilator 09/17/20 03:33 90 26 30 09/17/20 00:15 88 09/17/20 00:00 Mechanical Ventilator 09/17/20 00:00 99.4 104 25 139/78 (98) 97 09/16/20 23:15 87 24 30 09/16/20 20:00 Mechanical Ventilator 09/16/20 20:00 99.0 83 24 146/82 (103) 98 09/16/20 20:00 30 09/16/20 19:51 82 09/16/20 19:10 84 22 30 Intake and Output 09/16/20 09/17/20 19:00 07:00 Intake Total 120 ml 270 ml Balance 120 ml 270 ml Free Water 120 ml 100 ml IV Total 170 ml # Voids 2 # Bowel Movements 1 Laboratory Tests Test 09/16/20 22:21 09/17/20 03:40 09/17/20 06:24 09/17/20 11:38 POC Whole Blood Glucose 80 MG/DL (74-106) 83 MG/DL (74-106) 81 MG/DL (74-106) White Blood Count 10.3 K/UL (4.8-10.8) Red Blood Count 3.08 M/UL (4.20-5.40) L Hemoglobin 9.7 G/DL (12.0-16.0) L Hematocrit 28.2 % (37.0-47.0) L Mean Corpuscular Volume 92 FL (80-99) Mean Corpuscular Hemoglobin 31.4 PG (27.0-31.0) H Mean Corpuscular Hemoglobin Concent 34.3 G/DL (32.0-36.0) Red Cell Distribution Width 15.5 % (11.6-14.8) H Platelet Count 124 K/UL (150-450) L Mean Platelet Volume 10.2 FL (6.5-10.1) H Neutrophils (%) (Auto) % (45.0-75.0) Lymphocytes (%) (Auto) % (20.0-45.0) Monocytes (%) (Auto) % (1.0-10.0) Eosinophils (%) (Auto) % (0.0-3.0) Basophils (%) (Auto) % (0.0-2.0) Differential Total Cells Counted 100 Neutrophils % (Manual) 60 % (45-75) Lymphocytes % (Manual) 14 % (20-45) L Monocytes % (Manual) 5 % (1-10) Eosinophils % (Manual) 21 % (0-3) H Basophils % (Manual) 0 % (0-2) Band Neutrophils 0 % (0-8) Platelet Estimate Decreased L Platelet Morphology Normal Polychromasia 1+ Hypochromasia 1+ Anisocytosis 1+ Sodium Level 141 MMOL/L (136-145) Potassium Level 4.0 MMOL/L (3.5-5.1) Chloride Level 108 MMOL/L (98-107) H Carbon Dioxide Level 24 MMOL/L (21-32) Anion Gap 9 mmol/L (5-15) Blood Urea Nitrogen 26 mg/dL (7-18) H Creatinine 0.7 MG/DL (0.55-1.30) Estimat Glomerular Filtration Rate > 60 mL/min (>60) Glucose Level 92 MG/DL (74-106) Uric Acid 6.4 MG/DL (2.6-7.2) Calcium Level 9.6 MG/DL (8.5-10.1) Phosphorus Level 2.0 MG/DL (2.5-4.9) L Magnesium Level 2.0 MG/DL (1.8-2.4) Ferritin 1738 NG/ML (8-388) H Total Bilirubin 1.3 MG/DL (0.2-1.0) H Direct Bilirubin 0.3 MG/DL (0.0-0.3) Aspartate Amino Transf (AST/SGOT) 15 U/L (15-37) Alanine Aminotransferase (ALT/SGPT) 20 U/L (12-78) Alkaline Phosphatase 114 U/L (46-116) Troponin I 0.004 ng/mL (0.000-0.056) C-Reactive Protein, Quantitative 23.8 mg/dL (0.00-0.90) H Pro-B-Type Natriuretic Peptide Pending Total Protein 8.3 G/DL (6.4-8.2) H Albumin 2.7 G/DL (3.4-5.0) L Globulin 5.6 g/dL Albumin/Globulin Ratio 0.5 (1.0-2.7) L Vitamin B12 Level 1819 PG/ML (193-986) H Folate 73.1 NG/ML (8.6-58.9) H Test 09/17/20 16:43 POC Whole Blood Glucose 83 MG/DL (74-106) Microbiology Date/Time Source Procedure Growth Status 09/16/20 18:00 Sputum Expectorated Gram Stain - Final Resulted 09/16/20 18:00 Sputum Expectorated Sputum Culture Pending Resulted 09/15/20 13:25 Urine,Clean Catch Urine Culture - Preliminary Gram Negative Lopez Resulted 09/15/20 13:25 Nasopharynx SARS-CoV-2 RdRp Gene Assay - Final Complete 09/15/20 13:25 Blood Blood Culture - Preliminary Strep Species, Gamma-Hemolytic Resulted 09/15/20 13:10 Blood Blood Culture - Preliminary NO GROWTH AFTER 24 HOURS Resulted Objective HEAD AND NECK: No JVD.S/P Trach LUNGS: Coarse rhonchi. CARDIOVASCULAR: Regular S1 and S2 with no gallop. ABDOMEN: Status post PEG. EXTREMITIES: 1+ pitting edema. Flex Bess MD Sep 17, 2020 17:23
[2020-09-17] MEDS ORDERED: Vancomycin 1 GM in NS 275 ML IVPB SCH (18:00)
--- NOTE | 2020-09-17 18:08 | Consultation ---
History of Present Illness General Date patient seen: Sep 17, 2020 Chief Complaint: Fever Present Illness HPI This is a 75-year-old female [employer] Resident who presented with increased lethargy and weakness, tachypnea. Here to r/o joseph. Currently, calm in bed, slightly lethargic and weak.No complaint. The patient has severe Parkinson disease. Her cardiovascular history is also significant for history of hypertension and bradycardia. on admission abnormal labs and decubitus ulcers, malnutrition. surgery called to evaluate and assist with care. Allergies: Coded Allergies: No Known Allergies (Unverified , 11/22/15) Medication History Scheduled Amino Acids/Protein Hydrolys (Proteinex-18 Liquid), 30 ML GT TID, (Reported) Ascorbic Acid (Ascorbic Acid), 5 ML GT BID, (Reported) Carbidopa/Levodopa 25-100 Mg* (Sinemet 25-100 Mg Tablet*), 1 TAB GT Q6HR, (Reported) Cholecalciferol (Vitamin D3) (Vitamin D3), 50 MCG GT DAILY, (Reported) Famotidine* (Pepcid 20mg tablet*), 20 MG GT DAILY, (Reported) Insulin Lispro (Humalog), 0 SUBQ BID, (Reported) Levothyroxine Sodium* (Synthroid*), 150 MCG GT DAILY, (Reported) Levothyroxine Sodium* (Synthroid*), 150 MCG ORAL DAILY, (Reported) Memantine Hcl* (Namenda*), 5 MG GT TWICE A DAY, (Reported) Multivits W-Min/Ferrous Gluc (Multivitamin-Mineral Liquid), 9 MG GT DAILY, (Reported) Zinc Sulfate (Zinc Sulfate*), 220 MG GT DAILY, (Reported) Scheduled PRN Acetaminophen* (Acetaminophen 325MG Tablet*), 650 MG GT Q6HR PRN for For Pain, (Reported) Albuterol Sulfate* (Albuterol Sulfate Hhn*), 3 ML INH Q4H PRN for Shortness of Breath, (Reported) Hydralazine Hcl* (Hydralazine Hcl*), 10 MG GT EVERY 6 HOURS PRN for For High Blood Pressure, (Reported) Hydrocodone Bit/Acetaminophen 5-325* ([place] 5-325 Tablet*), 1 TAB ORAL DAILY PRN for For Pain, (Reported) Miscellaneous Medications Arginine/Glutamine/Calcium Hmb (Tyrese Packet), 1 EACH GT, (Reported) Lactobacillus Acidophilus (Acidophilus), 1 EACH GT, (Reported) Discontinued Medications Amiodarone Hcl* (Cordarone*), 200 MG GT EVERY 12 HOURS, (Reported) Discontinued Reason: Therapy completed Docusate Sodium* (Docusate Sodium*), 100 MG GT Q12HR, (Reported) Discontinued Reason: Therapy completed Furosemide* (Lasix*), 20 MG GT DAILY, (Reported) Discontinued Reason: Therapy completed Patient History Limited by: age, medical condition History Provided By: Medical Record, PMD Healthcare decision maker Resuscitation status Advanced Directive on File Past Medical/Surgical History Past Medical/Surgical History: (1) Dehydration (2) Hypernatremia (3) Protein calorie malnutrition (4) Failure to thrive (child) (5) Tracheostomy dependence (6) Chronic respiratory failure (7) Hypothyroidism (8) Pyelonephritis (9) Sacral decubitus ulcer (10) Pneumonia (11) Functional quadriplegia (12) Person under investigation for COVID-19 (13) Sepsis (14) UTI (urinary tract infection) (15) Anemia (16) Dysphagia (17) Hypoalbuminemia (18) Iron deficiency (19) At high risk for aspiration (20) Parkinson disease (21) Dementia (22) Elevated CEA (23) Paroxysmal A-fib (24) Pancytopenia Review of Systems All Other Systems: negative except mentioned in HPI ROS Narrative limited given medical condition Physical Exam General Appearance: no apparent distress, alert Lines, tubes and drains: peripheral, PICC HEENT: atraumatic, anicteric, mucous membranes moist Neck: supple, normal inspection Respiratory/Chest: chest wall non-tender, decreased breath sounds, inspiratory wheezing Cardiovascular/Chest: normal rate Abdomen: soft, no organomegaly, no mass, feeding tube, other Genitourinary/Rectal: normal rectal exam Extremities: normal inspection, no calf tenderness, other Skin Exam: warm/dry, rash, other Neurologic: alert Last 24 Hour Vital Signs Date Time Temp Pulse Resp B/P (MAP) Pulse Ox O2 Delivery O2 Flow Rate FiO2 09/17/20 16:00 98.2 81 18 146/77 (100) 99 09/17/20 16:00 Mechanical Ventilator 09/17/20 16:00 30 09/17/20 16:00 75 09/17/20 14:56 83 21 30 09/17/20 12:00 88 12/19/20 11:47 30 09/17/20 11:47 Mechanical Ventilator 09/17/20 11:44 99.3 95 22 154/68 (96) 97 09/17/20 10:58 90 22 30 09/17/20 08:00 83 09/17/20 08:00 30 09/17/20 08:00 98.2 85 24 144/91 (108) 99 09/17/20 08:00 Mechanical Ventilator 09/17/20 07:19 81 26 30 09/17/20 04:27 87 09/17/20 04:00 99.9 85 24 141/76 (97) 98 09/17/20 04:00 30 09/17/20 04:00 Mechanical Ventilator 09/17/20 03:33 90 26 30 09/17/20 00:15 88 09/17/20 00:00 Mechanical Ventilator 09/17/20 00:00 99.4 104 25 139/78 (98) 97 09/16/20 23:15 87 24 30 09/16/20 20:00 Mechanical Ventilator 09/16/20 20:00 99.0 83 24 146/82 (103) 98 09/16/20 20:00 30 09/16/20 19:51 82 09/16/20 19:10 84 22 30 Intake and Output 09/16/20 09/17/20 19:00 07:00 Intake Total 120 ml 270 ml Balance 120 ml 270 ml Free Water 120 ml 100 ml IV Total 170 ml # Voids 2 # Bowel Movements 1 Laboratory Tests Test 09/16/20 22:21 09/17/20 03:40 09/17/20 06:24 09/17/20 11:38 POC Whole Blood Glucose 80 MG/DL (74-106) 83 MG/DL (74-106) 81 MG/DL (74-106) White Blood Count 10.3 K/UL (4.8-10.8) Red Blood Count 3.08 M/UL (4.20-5.40) L Hemoglobin 9.7 G/DL (12.0-16.0) L Hematocrit 28.2 % (37.0-47.0) L Mean Corpuscular Volume 92 FL (80-99) Mean Corpuscular Hemoglobin 31.4 PG (27.0-31.0) H Mean Corpuscular Hemoglobin Concent 34.3 G/DL (32.0-36.0) Red Cell Distribution Width 15.5 % (11.6-14.8) H Platelet Count 124 K/UL (150-450) L Mean Platelet Volume 10.2 FL (6.5-10.1) H Neutrophils (%) (Auto) % (45.0-75.0) Lymphocytes (%) (Auto) % (20.0-45.0) Monocytes (%) (Auto) % (1.0-10.0) Eosinophils (%) (Auto) % (0.0-3.0) Basophils (%) (Auto) % (0.0-2.0) Differential Total Cells Counted 100 Neutrophils % (Manual) 60 % (45-75) Lymphocytes % (Manual) 14 % (20-45) L Monocytes % (Manual) 5 % (1-10) Eosinophils % (Manual) 21 % (0-3) H Basophils % (Manual) 0 % (0-2) Band Neutrophils 0 % (0-8) Platelet Estimate Decreased L Platelet Morphology Normal Polychromasia 1+ Hypochromasia 1+ Anisocytosis 1+ Sodium Level 141 MMOL/L (136-145) Potassium Level 4.0 MMOL/L (3.5-5.1) Chloride Level 108 MMOL/L (98-107) H Carbon Dioxide Level 24 MMOL/L (21-32) Anion Gap 9 mmol/L (5-15) Blood Urea Nitrogen 26 mg/dL (7-18) H Creatinine 0.7 MG/DL (0.55-1.30) Estimat Glomerular Filtration Rate > 60 mL/min (>60) Glucose Level 92 MG/DL (74-106) Uric Acid 6.4 MG/DL (2.6-7.2) Calcium Level 9.6 MG/DL (8.5-10.1) Phosphorus Level 2.0 MG/DL (2.5-4.9) L Magnesium Level 2.0 MG/DL (1.8-2.4) Ferritin 1738 NG/ML (8-388) H Total Bilirubin 1.3 MG/DL (0.2-1.0) H Direct Bilirubin 0.3 MG/DL (0.0-0.3) Aspartate Amino Transf (AST/SGOT) 15 U/L (15-37) Alanine Aminotransferase (ALT/SGPT) 20 U/L (12-78) Alkaline Phosphatase 114 U/L (46-116) Troponin I 0.004 ng/mL (0.000-0.056) C-Reactive Protein, Quantitative 23.8 mg/dL (0.00-0.90) H Pro-B-Type Natriuretic Peptide Pending Total Protein 8.3 G/DL (6.4-8.2) H Albumin 2.7 G/DL (3.4-5.0) L Globulin 5.6 g/dL Albumin/Globulin Ratio 0.5 (1.0-2.7) L Vitamin B12 Level 1819 PG/ML (193-986) H Folate 73.1 NG/ML (8.6-58.9) H Test 09/17/20 16:43 POC Whole Blood Glucose 83 MG/DL (74-106) Height (Feet): 5 Height (Inches): 4.00 Weight (Pounds): 146 Medications Current Medications Medications (Trade) Dose Ordered Sig/Alex Route PRN Reason Start Time Stop Time Status Last Admin Dose Admin Acetaminophen (Tylenol) 500 mg Q4H PRN ORAL Mild Pain (Pain Scale 1-3) 09/15/20 23:15 10/15/20 23:14 09/16/20 01:28 Acetaminophen (Tylenol) 500 mg Q4H PRN ORAL Temp >100.5 09/15/20 23:15 10/15/20 23:14 Clonidine HCl (Catapres Tab) 0.1 mg Q2H PRN GT For High Blood Pressure 09/17/20 17:00 12/16/20 16:59 Hydralazine HCl (Apresoline) 10 mg Q2H PRN IV For High Blood Pressure 09/17/20 17:00 12/16/20 16:59 Iron Sucrose 100 mg/Sodium Chloride 60 ml @ 240 mls/hr BEDTIME IVPB 09/16/20 21:00 09/20/20 21:14 09/16/20 21:15 Pantoprazole (Protonix) 40 mg EVERY 12 HOURS IVP 09/17/20 14:15 10/17/20 14:14 09/17/20 14:15 Piperacillin Sod/ Tazobactam Sod 3.375 gm/Sodium Chloride 110 ml @ 27.5 mls/hr EVERY 8 HOURS IVPB 09/16/20 14:00 09/21/20 21:59 09/17/20 13:21 Vancomycin HCl (Vanco pharmacy to dose) 1 ea DAILY PRN MISC Per rx protocol 09/16/20 16:00 10/16/20 15:59 Vancomycin HCl 1 gm/Sodium Chloride 275 ml @ 183.708 mls/hr Q24H IVPB 09/17/20 18:00 09/22/20 17:59 09/17/20 17:50 Assessment/Plan Problem List: (1) Pneumonia ICD Codes: J18.9 - Pneumonia, unspecified organism SNOMED: 268579589 Qualifiers: Qualified Codes: J18.9 - Pneumonia, unspecified organism (2) Functional quadriplegia ICD Codes: R53.2 - Functional quadriplegia SNOMED: 289359357759577 (3) Person under investigation for COVID-19 ICD Codes: Z20.828 - Contact with and (suspected) exposure to other viral communicable diseases SNOMED: 390882687 (4) Chronic respiratory failure ICD Codes: J96.10 - Chronic respiratory failure, unspecified whether with hypoxia or hypercapnia SNOMED: 03650319 (5) Dehydration ICD Codes: E86.0 - Dehydration SNOMED: 17875024 (6) Hypernatremia ICD Codes: E87.0 - Hyperosmolality and hypernatremia SNOMED: 404930601 (7) Hypothyroidism ICD Codes: E03.9 - Hypothyroidism, unspecified SNOMED: 83019030 (8) Pyelonephritis ICD Codes: N12 - Tubulo-interstitial nephritis, not specified as acute or chronic SNOMED: 62044522 (9) Protein calorie malnutrition Assessment & Plan: DAILY ESTIMATED NEEDS: Needs based on Wound, critical care 57.5kg abw 25-30 kcals/kg 7558-3619 total kcals 1.25-2 g protein/kg 72-115 g total protein 25-30 mL/kg 5848-6562 total fluid mLs NUTRITION DIAGNOSIS: * Increased kcal/prot needs R/T wound healing as evidenced by pt w/ h/o stage 4 sacral wound, eval is pending. * Swallowing difficulty R/T dysphagia, respiratory status as evidenced by pt is Trach and PEG dep. ENTERAL NUTRITION RECOMMENDATIONS: Glucerna 1.2 @ 55ml/hr x 24 hrs to provide 1320ml, 1584 kcal, 79g pro, 1063ml free H2O * As medically able, start Glucerna 1.2 @35ml/hr for 6 hrs, advance as tolerated q4-6 to goal. * Add TYRESE in 4oz water BID via PEG for wound healing * HOB over 30 degrees/ water flush per MD ADDITIONAL RECOMMENDATIONS: * Calibrated bedscale wt for accurate CBW * Wound healing: TYRESE BID, Vit C 250mg BID F/up w/ WC eval * Monitor lytes, replete as needed * Monitor BGs w/ TF-> bed side BG checks + NISS ICD Codes: E46 - Unspecified protein-calorie malnutrition SNOMED: 300711246 (10) Failure to thrive (child) ICD Codes: R62.51 - Failure to thrive (child) SNOMED: 455681599 (11) Sacral decubitus ulcer Assessment & Plan: Pt presented on admission with Tracheostomy, GT, and multiple Pressure injuries. No erythema or evidence of skin breakdown under tracheal collar. dry dark brown skin plaque noted at R lateral chest to R flank. Full thickness stage 4 Sacral Pressure Injury with undermined borders(L)2cm x (W )2cm x (D)2cm, undermining clockwise 11-3 by 2.3cm @3o'clock.Ability to accurately assess base of wound is not fully appreciated secondary to shape of wound. (+) Epibole along edges of wound. Silver Nitrate sticks application applied to Borders. Bone is palpable when probed.Small amt brown exudate noted. No odor noted. [place] Atrophic scar periwound. Resolving Pressure Injury R Ischium. [place] epithelial noted at base of wound. Intact serous Blister noted to monica/upper L thigh. No erythema or changes in skin temp at affected site. Reabsorbing DTPI L Hallux. Base of Pressure injury is dark brown,dry without erythema,induration or fluctuance. L Heel is boggy with non-blanchable erythema. R Heel is boggy but blanchable. Tx.Plan: Cleanse Sacral wound with Saline. Loosely pack with Therahoney impregnated Kerlix.Apply Moisture Barrier Paste periwound. Cover with Optifoam drsg every 3 days and prn. Apply Moisture Barrier Paste to R Ischium. Cover with Optifoam drsg. Change every 3 days and prn. Apply Phytoplex Skin Nourishing lotion to Lateral R chest /R Flank Daily. Apply Cavilon Skin Barrier to R and L Heel. Cover each heel with Optifoam drsg.Change every 7 days and prn. Reposition at least every 2hours or as tolerated. Off-load heels with pillow. ICD Codes: L89.159 - Pressure ulcer of sacral region, unspecified stage SNOMED: 700239998 (12) Tracheostomy dependence ICD Codes: Z93.0 - Tracheostomy status SNOMED: 290922080 (13) Sepsis ICD Codes: A41.9 - Sepsis, unspecified organism SNOMED: 40036112 (14) UTI (urinary tract infection) ICD Codes: N39.0 - Urinary tract infection, site not specified SNOMED: 42424228 Qualifiers: Qualified Codes: N39.0 - Urinary tract infection, site not specified (15) Anemia ICD Codes: D64.9 - Anemia, unspecified SNOMED: 455973163 Qualifiers: Qualified Codes: D64.9 - Anemia, unspecified (16) Dysphagia ICD Codes: R13.10 - Dysphagia, unspecified SNOMED: 19609482, 424878996 (17) Hypoalbuminemia ICD Codes: E88.09 - Other disorders of plasma-protein metabolism, not elsewhere classified SNOMED: 847676867 (18) Iron deficiency ICD Codes: E61.1 - Iron deficiency SNOMED: 14347848 (19) At high risk for aspiration ICD Codes: Z91.89 - Other specified personal risk factors, not elsewhere classi fied SNOMED: 015080693 (20) Parkinson disease ICD Codes: G20 - Parkinson's disease SNOMED: 06763599 (21) Dementia ICD Codes: F03.90 - Unspecified dementia without behavioral disturbance SNOMED: 24955395 (22) Elevated CEA ICD Codes: R97.0 - Elevated carcinoembryonic antigen [CEA] SNOMED: 59062042, 872865900 (23) Paroxysmal A-fib ICD Codes: I48.0 - Paroxysmal atrial fibrillation SNOMED: 594984256 (24) Pancytopenia ICD Codes: D61.818 - Other pancytopenia SNOMED: 507675451 Holland Petty Sep 17, 2020 18:08
--- NOTE | 2020-09-17 19:15 | NUR ---
NURSE NOTES: Received report from Flip. Pt in bed obtunded, sleeping but arousable. On vent to trach , with current setting of AC 12, TV400, FIO2 30% and PEEP of 5, tolerating well with saturation of 98%. Sr on skid adzer with heart rate of 75 bpm. With Gtube in place, still noted with blood tinged mucus around the area with glucerna 1.2 running at 30cc/hr. Gtube is intact, patent, and flushed well. No residual noted. Iv access on R ac #20 SL and R Hand # 22, both are intact, patent and flushed well. Purewick in place. Safety measure in place, bed in lowest positioned and locked, call light within reach. Will continue plan of care and monitor the pt.
--- NOTE | 2020-09-17 19:26 | NUR ---
NURSE HAND-OFF REPORT: Important Events on Shift:Patient now on Gtube feeding. Patient Status: Diet: Glucerna 1.2@ goal of 50, currently running at 30ml/hr. Pending Orders: Pending Results/Labs: Pending MD notification: Latest Vital Signs: Temperature 98.2 , Pulse 89 , B/P 146 /77 , Respiratory Rate 23 , O2 SAT 99 , Mechanical Ventilator, O2 Flow Rate 50.0 . Vital Sign Comment: EKG Rhythm: Sinus Rhythm Rhythm change?: N MD Notified?: - MD Response: Latest [place] Fall Score: 50 Fall Risk: High Risk Safety Measures: Call light Within Reach, Bed Alarm Zone 3, Side Rails Side Rails x3, Bed position Low and Locked. Fall Precautions: Door Sign Report given to CRISTY Amaya.
[2020-09-17 20:00] VITALS: BP 127/69
--- NOTE | 2020-09-17 20:30 | Consultation ---
DATE OF CONSULTATION: 09/17/2020 GASTROLOGY CONSULTATION CHIEF COMPLAINT: I was asked to see this patient by Dr. Sandeep Oneil for evaluation of gastrostomy tube site problem. HISTORY OF PRESENT ILLNESS: The patient is an unfortunate elderly woman with a tracheostomy and gastrostomy, who was brought into the hospital for pneumonia and urinary tract infection. The patient is in isolation unit for possible COVID infection. The patient is nonverbal and unable to provide any history. The gastrostomy tube feedings have been held overnight and some gastrostomy site dark drainage has been noted. PAST MEDICAL HISTORY: History of anemia, Parkinson disease, schizophrenia, dementia, diabetes, hypertension, status post tracheostomy, status post gastrostomy, history of ventilator dependence, history of sacral decubitus ulcerations, thrombocytopenia, history of breast calcifications, and hypothyroidism. FAMILY HISTORY: Unavailable and unobtainable. SOCIAL HISTORY: The patient is from a detention and otherwise there is no social history unavailable. MEDICATIONS: See the chart list for details. ALLERGIES: None. REVIEW OF SYSTEMS: Unobtainable. PHYSICAL EXAMINATION: GENERAL: A debilitated elderly woman seen in her room, on the ventilator. HEENT: Normocephalic and atraumatic. There is temporal wasting. NECK: Showed a tracheostomy catheter. CHEST: Exam reveals scattered rhonchi. CARDIOVASCULAR: Exam reveals a regular rate. ABDOMEN: Soft and flat with a gastrostomy catheter, which was small caliber, perhaps 16-Uzbek. There was a small amount of darker drainage around it, but this was minimal, and there was no further drainage noted. The gastrostomy tube appeared to be in good position. EXTREMITIES: Contractures. LABORATORY DATA: Noted. ASSESSMENT: The patient presents with gastrostomy, which is chronic, and discharge drawn is minimal. There may have been some old blood, but it has now cleared. I will restart the tube feeding and place the patient on proton pump inhibitor. The lab should be followed closely. Should there be any further problem, lower evaluation will be considered. The gastrostomy tube can be changed at a later date. RECOMMENDATIONS: Per above discussion and per orders written in the chart. Thank you for asking me to participate in the care of this patient. Tana Romano M.D. DR: Ward JOB#: [id number] CC: OSCAR
[2020-09-17] MEDS: Iron Sucrose 100 MG in NS 55 ML IVPB SCH (21:05)
--- NOTE | 2020-09-17 21:05 | General Progress Note ---
Subjective ROS Limited/Unobtainable: Yes Allergies: Coded Allergies: No Known Allergies (Unverified , 11/22/15) Objective Last 24 Hour Vital Signs Date Time Temp Pulse Resp B/P (MAP) Pulse Ox O2 Delivery O2 Flow Rate FiO2 09/17/20 18:38 89 23 30 09/17/20 16:00 98.2 81 18 146/77 (100) 99 09/17/20 16:00 Mechanical Ventilator 09/17/20 16:00 30 09/17/20 16:00 75 09/17/20 14:56 83 21 30 09/17/20 12:00 88 09/17/20 11:47 30 09/17/20 11:47 Mechanical Ventilator 09/17/20 11:44 99.3 95 22 154/68 (96) 97 09/17/20 10:58 90 22 30 09/17/20 08:00 83 09/17/20 08:00 30 09/17/20 08:00 98.2 85 24 144/91 (108) 99 09/17/20 08:00 Mechanical Ventilator 09/17/20 07:19 81 26 30 09/17/20 04:27 87 09/17/20 04:00 99.9 85 24 141/76 (97) 98 09/17/20 04:00 30 09/17/20 04:00 Mechanical Ventilator 09/17/20 03:33 90 26 30 09/17/20 00:15 88 09/17/20 00:00 Mechanical Ventilator 09/17/20 00:00 99.4 104 25 139/78 (98) 97 09/16/20 23:15 87 24 30 Intake and Output 09/16/20 09/17/20 19:00 07:00 Intake Total 120 ml 270 ml Balance 120 ml 270 ml Free Water 120 ml 100 ml IV Total 170 ml # Voids 2 # Bowel Movements 1 Laboratory Tests 09/16/20 22:21: POC Whole Blood Glucose 80 09/17/20 03:40: White Blood Count 10.3, Red Blood Count 3.08L, Hemoglobin 9.7L, Hematocrit 28.2L , Mean Corpuscular Volume 92, Mean Corpuscular Hemoglobin 31.4H, Mean Corpuscular Hemoglobin Concent 34.3, Red Cell Distribution Width 15.5H, Platelet Count 124L, Mean Platelet Volume 10.2H, Neutrophils (%) (Auto) , Lymphocytes (%) (Auto) , Monocytes (%) (Auto) , Eosinophils (%) (Auto) , Basophils (%) (Auto) , Differential Total Cells Counted 100, Neutrophils % (Manual) 60, Lymphocytes % (Manual) 14L, Monocytes % (Manual) 5, Eosinophils % (Manual) 21H, Basophils % (Manual) 0, Band Neutrophils 0, Platelet Estimate DecreasedL, Platelet Morphology Normal, Polychromasia 1+, Hypochromasia 1+, Anisocytosis 1+, Sodium Level 141, Potassium Level 4.0, Chloride Level 108H, Carbon Dioxide Level 24, Anion Gap 9, Blood Urea Nitrogen 26H, Creatinine 0.7, Estimat Glomerular Filtration Rate > 60, Glucose Level 92, Uric Acid 6.4, Calcium Level 9.6, Phosphorus Level 2.0L, Magnesium Level 2.0, Ferritin 1738H, Total Bilirubin 1.3H , Direct Bilirubin 0.3, Aspartate Amino Transf (AST/SGOT) 15, Alanine Aminotransferase (ALT/SGPT) 20, Alkaline Phosphatase 114, Troponin I 0.004, C- Reactive Protein, Quantitative 23.8H, Pro-B-Type Natriuretic Peptide [Pending], Total Protein 8.3H, Albumin 2.7L, Globulin 5.6, Albumin/Globulin Ratio 0.5L, Vitamin B12 Level 1819H, Folate 73.1H 09/17/20 06:24: POC Whole Blood Glucose 83 09/17/20 11:38: POC Whole Blood Glucose 81 09/17/20 16:43: POC Whole Blood Glucose 83 Height (Feet): 5 Height (Inches): 4.00 Weight (Pounds): 146 Assessment/Plan Problem List: (1) Hypothyroidism ICD Codes: E03.9 - Hypothyroidism, unspecified SNOMED: 29919122 (2) Chronic respiratory failure ICD Codes: J96.10 - Chronic respiratory failure, unspecified whether with hypoxia or hypercapnia SNOMED: 16037388 (3) Functional quadriplegia ICD Codes: R53.2 - Functional quadriplegia SNOMED: 668407408291904 (4) Protein calorie malnutrition ICD Codes: E46 - Unspecified protein-calorie malnutrition SNOMED: 162262076 (5) Failure to thrive (child) ICD Codes: R62.51 - Failure to thrive (child) SNOMED: 633894882 (6) Sacral decubitus ulcer ICD Codes: L89.159 - Pressure ulcer of sacral region, unspecified stage SNOMED: 977345152 (7) Tracheostomy dependence ICD Codes: Z93.0 - Tracheostomy status SNOMED: 789743565 (8) Sepsis ICD Codes: A41.9 - Sepsis, unspecified organism SNOMED: 85732612 (9) Anemia ICD Codes: D64.9 - Anemia, unspecified SNOMED: 964769988 Qualifiers: Qualified Codes: D64.9 - Anemia, unspecified (10) UTI (urinary tract infection) ICD Codes: N39.0 - Urinary tract infection, site not specified SNOMED: 50484619 Qualifiers: Qualified Codes: N39.0 - Urinary tract infection, site not specified Status: progressing Assessment/Plan: trach and peg afebrile sepsis anemia reviewed chart and labs no acute events Sandeep Oneil MD Sep 17, 2020 21:05
[2020-09-18] VITALS: BP 118/66
--- NOTE | 2020-09-18 00:12 | NUR ---
NURSE NOTES: Turned and repositioned pt. Oral care provided. Vital signs checked. Gtube intact, patent and flushed well. Tolerated well with the 40 cc rate of feeding. Increased feeding rate to 55 cc/hr. In no apparent cardiac and respiratory distress noted. Will continue to monitor.
[2020-09-18 04:00] VITALS: BP 143/89
--- NOTE | 2020-09-18 04:00 | NUR ---
NURSE NOTES: Partial bath given, pericare done. Keep clean and dry. Vital signs checked. Oral care provided. Turned and repositioned pt. Tolerated well with the current feeding rate of 50cc/hr (goal). Will continue to monitor.
[2020-09-18] MEDS: Piperacillin/Tazobactam 3.375 GM in NS 110 ML IVPB SCH ×3 (05:08→21:17)
--- NOTE | 2020-09-18 07:24 | NUR ---
NURSE HAND-OFF REPORT: Important Events on Shift: Stable Patient Status: Stable Diet: Glucerna 1.2 Pending Orders: Pending Results/Labs: Pending MD notification: Latest Vital Signs: Temperature 99.0 , Pulse 75 , B/P 143 /89 , Respiratory Rate 20 , O2 SAT 99 , Mechanical Ventilator, O2 Flow Rate 50.0 . Vital Sign Comment: Stable EKG Rhythm: Sinus Rhythm Rhythm change?: N MD Notified?: - MD Response: Latest [place] Fall Score: 50 Fall Risk: High Risk Safety Measures: Call light Within Reach, Bed Alarm Zone 3, Side Rails Side Rails x3, Bed position Low and Locked. Fall Precautions: Door Sign Report given to CRISTY Shelley .
--- NOTE | 2020-09-18 07:25 | NUR ---
NURSE NOTES: [facility] TV [facility], FiO2 30%, peep 5. IV lines intact. Purewick in place. SCD on. Gtube feeding ongoing with Glucerna 1.5 at 50cc/hr. Wound dressings intact. HOB elevated. Bed locked in low position. Call light within reach. Will continue plan of care.
[2020-09-18 08:00] VITALS: BP 143/89
--- NOTE | 2020-09-18 08:48 | Hematology/Onc Progress Note ---
Assessment/Plan Assessment/Plan LABORATORY DATA: 04/2020 white count 4.7, platelets 140 otherwise CBC is normal. BMP shows chloride 110, creatinine 0.4. Albumin 2.9, otherwise normal. INR 1.0, PTT 27. Urinalysis shows 2+ leukocyte esterase. 09/16 wbc 10, hgb 7.5, plt 126 Imaging 07/01/20 cxr Bilateral patchy airspace opacities. Differential includes multifocal pneumonia and pulmonary edema. 09/16/20 cxr b/l infiltrates noted Assessment and Recommendations # Anemia of iron deficiency, has been persistent for months, now improved, as ferritin better --> Anemia workup has been ordered--> improved --> No evidence of hemolysis is noted, peripheral smear has been reviewed. --> Hgb goal >7. Transfuse prn. --> Iron ivnot needed any further --> Medications have been reviewed --> gb 9-->8.4->>>>7.5-->9.4 # Right breast calcifications --> does not have a breast mass on exam --> f/u as outpatient with mammo as needed --> do not do a us breast here # Thrombocytopenia - potential causes multifactorial, evaluate liver and viral etiologies to begin, also could be related to underlying medications, no wimproved --> Hep panel and HIV prior negative -> plt 183->203->199-->125 --> abx # Pna --> antibiotics per id # Sepsis --> antibiotics per Infectious Disease. --> ABX # Dehydration. --> PT and Dietary evaluation. # Hypertension --> Blood pressure control. # Dvt ppx scds The timing of this note does not necessarily reflect the time of the patient was seen Greatly appreciate consultation! Subjective Constitutional: Denies: no symptoms, chills, fever, malaise, weakness, other HEENT: Denies: no symptoms, eye pain, blurred vision, tearing, double vision, ear pain, ear discharge, nose pain, nose congestion, throat pain, throat swelling, mouth pain, mouth swelling, other Cardiovascular: Denies: no symptoms, chest pain, edema, irregular heart rate, lightheadedness, palpitations, syncope, other Gastrointestinal/Abdominal: Denies: no symptoms, abdomen distended, abdominal pain, black stools, tarry stools, blood in stool, constipated, diarrhea, difficulty swallowing, nausea, poor appetite, poor fluid intake, rectal bleeding, vomiting, other Genitourinary: Denies: no symptoms, burning, discharge, frequency, flank pain, hematuria, incontinence, pain, urgency, other Neurologic/Psychiatric: Denies: no symptoms, anxiety, depressed, emotional problems, headache, numbness, paresthesia, pre-existing deficit, seizure, tingling, tremors, weakness, other Endocrine: Denies: no symptoms, excessive sweating, flushing, intolerance to cold, intolerance to heat, increased hunger, increased thirst, increased urine, unexplained weight gain, unexplained weight loss, other Hematologic/Lymphatic: Denies: no symptoms, anemia, easy bleeding, easy bruising, adenopathy, other Allergies: Coded Allergies: No Known Allergies (Unverified , 11/22/15) Subjective 09/18 labs are noted, no bleeding, seen by pulm, cbc is pending Objective Objective Current Medications Medications (Trade) Dose Ordered Sig/Alex Route PRN Reason Start Time Stop Time Status Last Admin Dose Admin Acetaminophen (Tylenol) 500 mg Q4H PRN ORAL Mild Pain (Pain Scale 1-3) 09/15/20 23:15 10/15/20 23:14 09/16/20 01:28 Acetaminophen (Tylenol) 500 mg Q4H PRN ORAL Temp >100.5 09/15/20 23:15 10/15/20 23:14 Clonidine HCl (Catapres Tab) 0.1 mg Q2H PRN GT For High Blood Pressure 09/17/20 17:00 12/16/20 16:59 Hydralazine HCl (Apresoline) 10 mg Q2H PRN IV For High Blood Pressure 09/17/20 17:00 12/16/20 16:59 Iron Sucrose 100 mg/Sodium Chloride 60 ml @ 240 mls/hr BEDTIME IVPB 09/16/20 21:00 09/20/20 21:14 09/17/20 21:05 Pantoprazole (Protonix) 40 mg EVERY 12 HOURS IVP 09/17/20 14:15 10/17/20 14:14 09/17/20 21:13 Piperacillin Sod/ Tazobactam Sod 3.375 gm/Sodium Chloride 110 ml @ 27.5 mls/hr EVERY 8 HOURS IVPB 09/16/20 14:00 09/21/20 21:59 09/18/20 05:08 Vancomycin HCl (Vanco pharmacy to dose) 1 ea DAILY PRN MISC Per rx protocol 09/16/20 16:00 10/16/20 15:59 Vancomycin HCl 1 gm/Sodium Chloride 275 ml @ 183.708 mls/hr Q24H IVPB 09/17/20 18:00 09/22/20 17:59 09/17/20 17:50 Last 24 Hour Vital Signs Date Time Temp Pulse Resp B/P (MAP) Pulse Ox O2 Delivery O2 Flow Rate FiO2 09/18/20 04:00 99.0 75 20 143/89 (107) 99 09/18/20 04:00 30 09/18/20 04:00 Mechanical Ventilator 09/18/20 03:23 62 09/18/20 02:54 77 18 30 09/18/20 00:44 61 09/18/20 00:00 Mechanical Ventilator 09/18/20 00:00 98.4 60 18 118/66 (83) 99 09/17/20 22:42 72 15 30 09/17/20 20:00 Mechanical Ventilator 09/17/20 20:00 30 09/17/20 20:00 98.8 75 22 127/69 (88) 99 09/17/20 19:36 75 09/17/20 18:38 89 23 30 09/17/20 16:00 98.2 81 18 146/77 (100) 99 09/17/20 16:00 Mechanical Ventilator 09/17/20 16:00 30 09/17/20 16:00 75 09/17/20 14:56 83 21 30 09/17/20 12:00 88 09/17/20 11:47 30 09/17/20 11:47 Mechanical Ventilator 09/17/20 11:44 99.3 95 22 154/68 (96) 97 09/17/20 10:58 90 22 30 09/17/20 08:00 83 09/17/20 08:00 30 09/17/20 08:00 98.2 85 24 144/91 (108) 99 09/17/20 08:00 Mechanical Ventilator 09/17/20 07:19 81 26 30 09/17/20 04:27 87 09/17/20 04:00 99.9 85 24 141/76 (97) 98 09/17/20 04:00 30 09/17/20 04:00 Mechanical Ventilator 09/17/20 03:33 90 26 30 09/17/20 00:15 88 09/17/20 00:00 Mechanical Ventilator 09/17/20 00:00 99.4 104 25 139/78 (98) 97 09/16/20 23:15 87 24 30 09/16/20 20:00 Mechanical Ventilator 09/16/20 20:00 99.0 83 24 146/82 (103) 98 09/16/20 20:00 30 09/16/20 19:51 82 09/16/20 19:10 84 22 30 09/16/20 16:00 99.2 91 24 143/70 (94) 99 09/16/20 16:00 30 09/16/20 16:00 94 09/16/20 16:00 Mechanical Ventilator 09/16/20 15:10 91 30 30 09/16/20 12:00 Mechanical Ventilator 09/16/20 12:00 72 09/16/20 12:00 98.4 79 14 127/73 (91) 98 09/16/20 12:00 30 09/16/20 11:05 81 22 30 Intake and Output 09/17/20 09/18/20 19:00 07:00 Intake Total 480 ml 960 ml Balance 480 ml 960 ml Free Water 260 ml 150 ml IV Total 350 ml Tube Feeding 220 ml 460 ml # Voids 3 # Bowel Movements 2 Labs Test 09/15/20 13:22 09/15/20 13:25 09/16/20 01:30 09/16/20 03:30 White Blood Count 12.4 K/UL (4.8-10.8) 10.8 K/UL (4.8-10.8) Red Blood Count 2.72 M/UL (4.20-5.40) 2.39 M/UL (4.20-5.40) Hemoglobin 8.5 G/DL (12.0-16.0) 7.5 G/DL (12.0-16.0) Hematocrit 26.1 % (37.0-47.0) 22.9 % (37.0-47.0) Mean Corpuscular Volume 96 FL (80-99) 96 FL (80-99) Mean Corpuscular Hemoglobin 31.4 PG (27.0-31.0) 31.5 PG (27.0-31.0) Mean Corpuscular Hemoglobin Concent 32.8 G/DL (32.0-36.0) 32.9 G/DL (32.0-36.0) Red Cell Distribution Width 15.4 % (11.6-14.8) 15.8 % (11.6-14.8) Platelet Count 131 K/UL (150-450) 126 K/UL (150-450) Mean Platelet Volume 9.8 FL (6.5-10.1) 10.4 FL (6.5-10.1) Neutrophils (%) (Auto) 56.2 % (45.0-75.0) % (45.0-75.0) Lymphocytes (%) (Auto) 14.3 % (20.0-45.0) % (20.0-45.0) Monocytes (%) (Auto) 4.5 % (1.0-10.0) % (1.0-10.0) Eosinophils (%) (Auto) 25.0 % (0.0-3.0) % (0.0-3.0) Basophils (%) (Auto) 1.1 % (0.0-2.0) % (0.0-2.0) Prothrombin Time 12.0 SEC (9.30-11.50) Prothromb Time International Ratio 1.1 (0.9-1.1) Activated Partial Thromboplast Time 31 SEC (23-33) D-Dimer 4.14 mg/L FEU (0.00-0.49) Sodium Level 136 MMOL/L (136-145) 137 MMOL/L (136-145) Potassium Level 4.8 MMOL/L (3.5-5.1) 4.3 MMOL/L (3.5-5.1) Chloride Level 102 MMOL/L (98-107) 106 MMOL/L (98-107) Carbon Dioxide Level 27 MMOL/L (21-32) 24 MMOL/L (21-32) Anion Gap 7 mmol/L (5-15) 7 mmol/L (5-15) Blood Urea Nitrogen 35 mg/dL (7-18) 30 mg/dL (7-18) Creatinine 0.6 MG/DL (0.55-1.30) 0.7 MG/DL (0.55-1.30) Estimat Glomerular Filtration Rate > 60 mL/min (>60) > 60 mL/min (>60) Glucose Level 93 MG/DL (74-106) 87 MG/DL (74-106) Lactic Acid Level 0.70 mmol/L (0.4-2.0) Calcium Level 9.9 MG/DL (8.5-10.1) 9.0 MG/DL (8.5-10.1) Magnesium Level 2.0 MG/DL (1.8-2.4) Ferritin 1271 NG/ML (8-388) Total Bilirubin 0.6 MG/DL (0.2-1.0) 0.8 MG/DL (0.2-1.0) Aspartate Amino Transf (AST/SGOT) 16 U/L (15-37) 17 U/L (15-37) Alanine Aminotransferase (ALT/SGPT) 11 U/L (12-78) 17 U/L (12-78) Alkaline Phosphatase 138 U/L (46-116) 116 U/L (46-116) Lactate Dehydrogenase 264 U/L (81-234) Total Creatine Kinase 35 U/L (26-308) Troponin I 0.012 ng/mL (0.000-0.056) C-Reactive Protein, Quantitative 27.4 mg/dL (0.00-0.90) Pro-B-Type Natriuretic Peptide 4126 pg/mL (0-125) Total Protein 8.1 G/DL (6.4-8.2) 7.5 G/DL (6.4-8.2) Albumin 2.6 G/DL (3.4-5.0) 2.4 G/DL (3.4-5.0) Globulin 5.5 g/dL 5.1 g/dL Albumin/Globulin Ratio 0.5 (1.0-2.7) 0.5 (1.0-2.7) Lipase 49 U/L (73-393) Urine Color Yellow Urine Appearance Slightly cloudy Urine pH 8 (4.5-8.0) Urine Specific [place] 1.010 (1.005-1.035) Urine Protein 2+ (NEGATIVE) Urine Glucose (UA) Negative (NEGATIVE) Urine Ketones Negative (NEGATIVE) Urine Blood 4+ (NEGATIVE) Urine Nitrite Negative (NEGATIVE) Urine Bilirubin Negative (NEGATIVE) Urine Urobilinogen Normal MG/DL (0.0-1.0) Urine Leukocyte Esterase 3+ (NEGATIVE) Urine RBC 15-20 /HPF (0 - 2) Urine WBC 60-80 /HPF (0 - 2) Urine Squamous Epithelial Cells Many /LPF (NONE/OCC) Urine Bacteria Many /HPF (NONE) Test 09/16/20 03:35 09/16/20 16:52 09/16/20 22:21 09/17/20 03:40 Iron Level 19 ug/dL (50-175) Total Iron Binding Capacity 196 ug/dL (250-450) Percent Iron Saturation 10 % (15-50) Unsaturated Iron Binding 177 ug/dL (112-346) POC Whole Blood Glucose 75 MG/DL (74-106) 80 MG/DL (74-106) White Blood Count 10.3 K/UL (4.8-10.8) Red Blood Count 3.08 M/UL (4.20-5.40) Hemoglobin 9.7 G/DL (12.0-16.0) Hematocrit 28.2 % (37.0-47.0) Mean Corpuscular Volume 92 FL (80-99) Mean Corpuscular Hemoglobin 31.4 PG (27.0-31.0) Mean Corpuscular Hemoglobin Concent 34.3 G/DL (32.0-36.0) Red Cell Distribution Width 15.5 % (11.6-14.8) Platelet Count 124 K/UL (150-450) Mean Platelet Volume 10.2 FL (6.5-10.1) Neutrophils (%) (Auto) % (45.0-75.0) Lymphocytes (%) (Auto) % (20.0-45.0) Monocytes (%) (Auto) % (1.0-10.0) Eosinophils (%) (Auto) % (0.0-3.0) Basophils (%) (Auto) % (0.0-2.0) Differential Total Cells Counted 100 Neutrophils % (Manual) 60 % (45-75) Lymphocytes % (Manual) 14 % (20-45) Monocytes % (Manual) 5 % (1-10) Eosinophils % (Manual) 21 % (0-3) Basophils % (Manual) 0 % (0-2) Band Neutrophils 0 % (0-8) Platelet Estimate Decreased Platelet Morphology Normal Polychromasia 1+ Hypochromasia 1+ Anisocytosis 1+ Sodium Level 141 MMOL/L (136-145) Potassium Level 4.0 MMOL/L (3.5-5.1) Chloride Level 108 MMOL/L (98-107) Carbon Dioxide Level 24 MMOL/L (21-32) Anion Gap 9 mmol/L (5-15) Blood Urea Nitrogen 26 mg/dL (7-18) Creatinine 0.7 MG/DL (0.55-1.30) Estimat Glomerular Filtration Rate > 60 mL/min (>60) Glucose Level 92 MG/DL (74-106) Uric Acid 6.4 MG/DL (2.6-7.2) Calcium Level 9.6 MG/DL (8.5-10.1) Phosphorus Level 2.0 MG/DL (2.5-4.9) Magnesium Level 2.0 MG/DL (1.8-2.4) Ferritin 1738 NG/ML (8-388) Total Bilirubin 1.3 MG/DL (0.2-1.0) Direct Bilirubin 0.3 MG/DL (0.0-0.3) Aspartate Amino Transf (AST/SGOT) 15 U/L (15-37) Alanine Aminotransferase (ALT/SGPT) 20 U/L (12-78) Alkaline Phosphatase 114 U/L (46-116) Troponin I 0.004 ng/mL (0.000-0.056) C-Reactive Protein, Quantitative 23.8 mg/dL (0.00-0.90) Total Protein 8.3 G/DL (6.4-8.2) Albumin 2.7 G/DL (3.4-5.0) Globulin 5.6 g/dL Albumin/Globulin Ratio 0.5 (1.0-2.7) Vitamin B12 Level 1819 PG/ML (193-986) Folate 73.1 NG/ML (8.6-58.9) Test 09/17/20 06:24 09/17/20 11:38 09/17/20 16:43 09/17/20 22:23 POC Whole Blood Glucose 83 MG/DL (74-106) 81 MG/DL (74-106) 83 MG/DL (74-106) 86 MG/DL (74-106) Test 09/18/20 05:48 POC Whole Blood Glucose 98 MG/DL (74-106) Height (Feet): 5 Height (Inches): 4.00 Weight (Pounds): 146 Objective PHYSICAL EXAMINATION: GENERAL: Slightly confused in bed, oriented x1, CARDIOVASCULAR: No murmur. LUNGS: Poor air exchange.+vent/trach ABDOMEN: Bowel sounds distant.++peg EXTREMITIES: No cyanosis, clubbing, or edema NEUROLOGIC: Neck, weakness as well leaning forward.bedbound++ Alan Cazares MD Sep 18, 2020 08:48
[2020-09-18] MEDS: Pantoprazole Inj IVP SCH ×2 (09:28→21:19)
--- NOTE | 2020-09-18 10:16 | Pulmonology Progress Note ---
Subjective ROS Limited/Unobtainable: Yes Interval Events: None new Constitutional: Reports: no symptoms HEENT: Repors: no symptoms Respiratory: Reports: no symptoms Cardiovascular: Reports: no symptoms Gastrointestinal/Abdominal: Reports: no symptoms Genitourinary: Reports: no symptoms Allergies: Coded Allergies: No Known Allergies (Unverified , 11/22/15) Objective Last 24 Hour Vital Signs Date Time Temp Pulse Resp B/P (MAP) Pulse Ox O2 Delivery O2 Flow Rate FiO2 09/18/20 08:00 64 09/18/20 08:00 Mechanical Ventilator 09/18/20 08:00 56 20 143/89 (107) 100 09/18/20 08:00 30 09/18/20 07:02 53 14 30 09/18/20 04:00 99.0 75 20 143/89 (107) 99 09/18/20 04:00 30 09/18/20 04:00 Mechanical Ventilator 09/18/20 03:23 62 09/18/20 02:54 77 18 30 09/18/20 00:44 61 09/18/20 00:00 Mechanical Ventilator 09/18/20 00:00 98.4 60 18 118/66 (83) 99 09/17/20 22:42 72 15 30 09/17/20 20:00 Mechanical Ventilator 09/17/20 20:00 30 09/17/20 20:00 98.8 75 22 127/69 (88) 99 09/17/20 19:36 75 09/17/20 18:38 89 23 30 09/17/20 16:00 98.2 81 18 146/77 (100) 99 09/17/20 16:00 Mechanical Ventilator 09/17/20 16:00 30 09/17/20 16:00 75 09/17/20 14:56 83 21 30 09/17/20 12:00 88 09/17/20 11:47 30 09/17/20 11:47 Mechanical Ventilator 09/17/20 11:44 99.3 95 22 154/68 (96) 97 09/17/20 10:58 90 22 30 Intake and Output 09/17/20 09/18/20 19:00 07:00 Intake Total 480 ml 960 ml Balance 480 ml 960 ml Free Water 260 ml 150 ml IV Total 350 ml Tube Feeding 220 ml 460 ml # Voids 3 # Bowel Movements 2 General Appearance: no acute distress HEENT: normocephalic, atraumatic, status post trach Respiratory: chest wall non-tender, lungs clear, other - coarse rhonchi Cardiovascular: normal rate, regular rhythm Abdomen: normal bowel sounds, distended Microbiology Date/Time Source Procedure Growth Status 09/16/20 18:00 Sputum Expectorated Gram Stain - Final Resulted 09/16/20 18:00 Sputum Culture - Preliminary Gram Negative Lopez Resulted 09/16/20 06:10 Nasopharynx Coronavirus COVID-19 PCR (NBA) - Final Complete 09/15/20 13:25 Urine,Clean Catch Urine Culture - Final Escherichia Coli - Esbl Complete 09/15/20 13:25 Nasopharynx SARS-CoV-2 RdRp Gene Assay - Final Complete 09/15/20 13:25 Blood Blood Culture - Final Enterococcus Faecalis - Vre Complete 09/15/20 13:10 Blood Blood Culture - Preliminary NO GROWTH AFTER 48 HOURS Resulted Laboratory Tests 09/17/20 11:38: POC Whole Blood Glucose 81 09/17/20 16:43: POC Whole Blood Glucose 83 09/17/20 22:23: POC Whole Blood Glucose 86 09/18/20 05:48: POC Whole Blood Glucose 98 Current Medications Medications (Trade) Dose Ordered Sig/Alex Route PRN Reason Start Time Stop Time Status Last Admin Dose Admin Acetaminophen (Tylenol) 500 mg Q4H PRN ORAL Mild Pain (Pain Scale 1-3) 09/15/20 23:15 10/15/20 23:14 09/16/20 01:28 Acetaminophen (Tylenol) 500 mg Q4H PRN ORAL Temp >100.5 09/15/20 23:15 10/15/20 23:14 Clonidine HCl (Catapres Tab) 0.1 mg Q2H PRN GT For High Blood Pressure 09/17/20 17:00 12/16/20 16:59 Hydralazine HCl (Apresoline) 10 mg Q2H PRN IV For High Blood Pressure 09/17/20 17:00 12/16/20 16:59 Pantoprazole (Protonix) 40 mg EVERY 12 HOURS IVP 09/17/20 14:15 10/17/20 14:14 09/18/20 09:28 Piperacillin Sod/ Tazobactam Sod 3.375 gm/Sodium Chloride 110 ml @ 27.5 mls/hr EVERY 8 HOURS IVPB 09/16/20 14:00 09/21/20 21:59 09/18/20 05:08 Vancomycin HCl (Vanco pharmacy to dose) 1 ea DAILY PRN MISC Per rx protocol 09/16/20 16:00 10/16/20 15:59 Vancomycin HCl 1 gm/Sodium Chloride 275 ml @ 183.708 mls/hr Q24H IVPB 09/17/20 18:00 09/22/20 17:59 09/17/20 17:50 Assessment/Plan Assessment/Plan 1. Anemia, likely iron deficiency. - On IV iron. - s/p transfusion per Dr. Cazares. - Anemia workup ordered per Dr. Cazares. 2. Interstitial infiltrates, likely pneumonia. - Antibiotics per ID. - Continue supplemental oxygen; continue ventilator, AC mode.FiO2 30% 3. Sepsis. - Antibiotics per ID. Gm neg rods in sputum CS 4. History of fever. - Currently afebrile. 5. Possible COVID-19 infection. - Swab COVID-19 test negative. - Repeat PCR COVID-19 talso negative 6. CHF. - 2D echocardiogram ordered per Cardio. 7. UTI. - On antibiotics. Has ESBL E. Coli 8. Elevated D-dimer. 9. DVT prophylaxis. - Venous duplex ultrasound negative. - on SCD The history of Jennifer Gao has been reviewed and management options for her have been examined and discussed by Mino Childs. I have personally examined and interviewed the patient. Mino Childs MD Sep 18, 2020 10:16
[2020-09-18 11:03] LABS: HEMATOCRIT 26.9 % (37.0-47.0); MEAN CORPUSCULAR VOLUME 91 FL (80-99); PLATELET COUNT 130 K/UL (150-450); RED BLOOD COUNT 2.94 M/UL (4.20-5.40); WHITE BLOOD COUNT 11.6 K/UL (4.8-10.8)
[2020-09-18 12:00] VITALS: BP 127/64
--- NOTE | 2020-09-18 12:03 | Surgery Progress Note ---
Surgery Progress Note Subjective Additional Comments no acute events comfortable stable no n/v Objective Last 24 Hour Vital Signs Date Time Temp Pulse Resp B/P (MAP) Pulse Ox O2 Delivery O2 Flow Rate FiO2 09/18/20 08:00 64 09/18/20 08:00 Mechanical Ventilator 09/18/20 08:00 56 20 143/89 (107) 100 09/18/20 08:00 30 09/18/20 07:02 53 14 30 09/18/20 04:00 99.0 75 20 143/89 (107) 99 09/18/20 04:00 30 09/18/20 04:00 Mechanical Ventilator 09/18/20 03:23 62 09/18/20 02:54 77 18 30 09/18/20 00:44 61 09/18/20 00:00 Mechanical Ventilator 09/18/20 00:00 98.4 60 18 118/66 (83) 99 09/17/20 22:42 72 15 30 09/17/20 20:00 Mechanical Ventilator 09/17/20 20:00 30 09/17/20 20:00 98.8 75 22 127/69 (88) 99 09/17/20 19:36 75 09/17/20 18:38 89 23 30 09/17/20 16:00 98.2 81 18 146/77 (100) 99 09/17/20 16:00 Mechanical Ventilator 09/17/20 16:00 30 09/17/20 16:00 75 09/17/20 14:56 83 21 30 I&O Intake and Output 09/17/20 09/18/20 19:00 07:00 Intake Total 480 ml 960 ml Balance 480 ml 960 ml Free Water 260 ml 150 ml IV Total 350 ml Tube Feeding 220 ml 460 ml # Voids 3 # Bowel Movements 2 Dressing: saturated Cardiovascular: RSR Respiratory: decreased breath sounds Abdomen: non-tender, present bowel sounds, non-distended Extremities: no tenderness, no cyanosis Laboratory Tests Test 09/17/20 16:43 09/17/20 22:23 09/18/20 05:48 09/18/20 10:50 POC Whole Blood Glucose 83 MG/DL (74-106) 86 MG/DL (74-106) 98 MG/DL (74-106) White Blood Count 11.6 K/UL (4.8-10.8) H Red Blood Count 2.94 M/UL (4.20-5.40) L Hemoglobin 9.0 G/DL (12.0-16.0) L Hematocrit 26.9 % (37.0-47.0) L Mean Corpuscular Volume 91 FL (80-99) Mean Corpuscular Hemoglobin 30.6 PG (27.0-31.0) Mean Corpuscular Hemoglobin Concent 33.6 G/DL (32.0-36.0) Red Cell Distribution Width 16.0 % (11.6-14.8) H Platelet Count 130 K/UL (150-450) L Mean Platelet Volume 8.5 FL (6.5-10.1) Neutrophils (%) (Auto) % (45.0-75.0) Lymphocytes (%) (Auto) % (20.0-45.0) Monocytes (%) (Auto) % (1.0-10.0) Eosinophils (%) (Auto) % (0.0-3.0) Basophils (%) (Auto) % (0.0-2.0) Differential Total Cells Counted 100 Neutrophils % (Manual) 33 % (45-75) L Lymphocytes % (Manual) 17 % (20-45) L Monocytes % (Manual) 6 % (1-10) Eosinophils % (Manual) 44 % (0-3) H Basophils % (Manual) 0 % (0-2) Band Neutrophils 0 % (0-8) Platelet Estimate Decreased L Platelet Morphology Normal Polychromasia 1+ Anisocytosis 1+ Plan Problems: (1) Pneumonia (2) Functional quadriplegia (3) Person under investigation for COVID-19 (4) Chronic respiratory failure (5) Dehydration (6) Hypernatremia (7) Hypothyroidism (8) Pyelonephritis (9) Protein calorie malnutrition Assessment & Plan: DAILY ESTIMATED NEEDS: Needs based on Wound, critical care 57.5kg abw 25-30 kcals/kg 6600-6093 total kcals 1.25-2 g protein/kg 72-115 g total protein 25-30 mL/kg 7621-9397 total fluid mLs NUTRITION DIAGNOSIS: * Increased kcal/prot needs R/T wound healing as evidenced by pt w/ h/o stage 4 sacral wound, eval is pending. * Swallowing difficulty R/T dysphagia, respiratory status as evidenced by pt is Trach and PEG dep. ENTERAL NUTRITION RECOMMENDATIONS: Glucerna 1.2 @ 55ml/hr x 24 hrs to provide 1320ml, 1584 kcal, 79g pro, 1063ml free H2O * As medically able, start Glucerna 1.2 @35ml/hr for 6 hrs, advance as tolerated q4-6 to goal. * Add TYRESE in 4oz water BID via PEG for wound healing * HOB over 30 degrees/ water flush per MD ADDITIONAL RECOMMENDATIONS: * Calibrated bedscale wt for accurate CBW * Wound healing: TYRESE BID, Vit C 250mg BID F/up w/ WC eval * Monitor lytes, replete as needed * Monitor BGs w/ TF-> bed side BG checks + NISS (10) Failure to thrive (child) (11) Sacral decubitus ulcer Assessment & Plan: Pt presented on admission with Tracheostomy, GT, and multiple Pressure injuries. No erythema or evidence of skin breakdown under tracheal collar. dry dark brown skin plaque noted at R lateral chest to R flank. Full thickness stage 4 Sacral Pressure Injury with undermined borders(L)2cm x (W)2cm x (D)2cm, undermining clockwise 11-3 by 2.3cm @3o'clock.Ability to accurately assess base of wound is not fully appreciated secondary to shape of wound. (+) Epibole along edges of wound. Silver Nitrate sticks application applied to Borders. Bone is palpable when probed.Small amt brown exudate noted. No odor noted. [place] Atrophic scar periwound. Resolving Pressure Injury R Ischium. [place] epithelial noted at base of wound. Intact serous Blister noted to monica/upper L thigh. No erythema or changes in skin temp at affected site. Reabsorbing DTPI L Hallux. Base of Pressure injury is dark brown,dry without erythema,induration or fluctuance. L Heel is boggy with non-blanchable erythema. R Heel is boggy but blanchable. Tx.Plan: Cleanse Sacral wound with Saline. Loosely pack with Therahoney impregnated Kerlix.Apply Moisture Barrier Paste periwound. Cover with Optifoam drsg every 3 days and prn. Apply Moisture Barrier Paste to R Ischium. Cover with Optifoam drsg. Change every 3 days and prn. Apply Phytoplex Skin Nourishing lotion to Lateral R chest /R Flank Daily. Apply Cavilon Skin Barrier to R and L Heel. Cover each heel with Optifoam drsg.Change every 7 days and prn. Reposition at least every 2hours or as tolerated. Off-load heels with pillow. (12) Tracheostomy dependence (13) Sepsis (14) UTI (urinary tract infection) (15) Anemia (16) Dysphagia (17) Hypoalbuminemia (18) Iron deficiency (19) At high risk for aspiration (20) Parkinson disease (21) Dementia (22) Elevated CEA (23) Paroxysmal A-fib (24) Pancytopenia Holland Petty Sep 18, 2020 12:03
--- NOTE | 2020-09-18 12:17 | Infectious Diseases Prog Note ---
Assessment/Plan Assessment/Plan IMPRESSION: VRE sepsis ( Amp sensitive) Gram negative pneumonia, E coli UTI, Ventilator-dependent respiratory failure, Quadriplegia, Stage IV sacral ulcer, COPD, Iron deficiency anemia, Hypertension, history of atrial fibrillation. Negative COVI19 tests RECOMMENDATION: We will f/u sputum cultures. Continue Zosyn Discontinue IV Vancomycin Subjective ROS Limited/Unobtainable: Yes Constitutional: Denies: fever Allergies: Coded Allergies: No Known Allergies (Unverified , 11/22/15) Objective Last 24 Hour Vital Signs Date Time Temp Pulse Resp B/P (MAP) Pulse Ox O2 Delivery O2 Flow Rate FiO2 09/18/20 08:00 64 09/18/20 08:00 Mechanical Ventilator 09/18/20 08:00 56 20 143/89 (107) 100 09/18/20 08:00 30 09/18/20 07:02 53 14 30 09/18/20 04:00 99.0 75 20 143/89 (107) 99 09/18/20 04:00 30 09/18/20 04:00 Mechanical Ventilator 09/18/20 03:23 62 09/18/20 02:54 77 18 30 09/18/20 00:44 61 09/18/20 00:00 Mechanical Ventilator 09/18/20 00:00 98.4 60 18 118/66 (83) 99 09/17/20 22:42 72 15 30 09/17/20 20:00 Mechanical Ventilator 09/17/20 20:00 30 09/17/20 20:00 98.8 75 22 127/69 (88) 99 09/17/20 19:36 75 09/17/20 18:38 89 23 30 09/17/20 16:00 98.2 81 18 146/77 (100) 99 09/17/20 16:00 Mechanical Ventilator 09/17/20 16:00 30 09/17/20 16:00 75 09/17/20 14:56 83 21 30 Height (Feet): 5 Height (Inches): 4.00 Weight (Pounds): 146 HEENT: status post trach Respiratory/Chest: lungs clear, other - on ventilator Cardiovascular: bradycardia Abdomen: soft, non tender, other - GT feeding Extremities: no edema, other - contracted Neurologic/Psychiatric: aphasia, other - opens eyes only Microbiology Date/Time Source Procedure Growth Status 09/16/20 18:00 Sputum Expectorated Gram Stain - Final Resulted 09/16/20 18:00 Sputum Culture - Preliminary Gram Negative Lopez Resulted 09/16/20 06:10 Nasopharynx Coronavirus COVID-19 PCR (NBA) - Final Complete 09/15/20 13:25 Urine,Clean Catch Urine Culture - Final Escherichia Coli - Esbl Complete 09/15/20 13:25 Nasopharynx SARS-CoV-2 RdRp Gene Assay - Final Complete 09/15/20 13:25 Blood Blood Culture - Final Enterococcus Faecalis - Vre Complete 09/15/20 13:10 Blood Blood Culture - Preliminary NO GROWTH AFTER 48 HOURS Resulted Laboratory Tests Test 09/17/20 16:43 09/17/20 22:23 09/18/20 05:48 09/18/20 10:50 POC Whole Blood Glucose 83 MG/DL (74-106) 86 MG/DL (74-106) 98 MG/DL (74-106) White Blood Count 11.6 K/UL (4.8-10.8) H Red Blood Count 2.94 M/UL (4.20-5.40) L Hemoglobin 9.0 G/DL (12.0-16.0) L Hematocrit 26.9 % (37.0-47.0) L Mean Corpuscular Volume 91 FL (80-99) Mean Corpuscular Hemoglobin 30.6 PG (27.0-31.0) Mean Corpuscular Hemoglobin Concent 33.6 G/DL (32.0-36.0) Red Cell Distribution Width 16.0 % (11.6-14.8) H Platelet Count 130 K/UL (150-450) L Mean Platelet Volume 8.5 FL (6.5-10.1) Neutrophils (%) (Auto) % (45.0-75.0) Lymphocytes (%) (Auto) % (20.0-45.0) Monocytes (%) (Auto) % (1.0-10.0) Eosinophils (%) (Auto) % (0.0-3.0) Basophils (%) (Auto) % (0.0-2.0) Differential Total Cells Counted 100 Neutrophils % (Manual) 33 % (45-75) L Lymphocytes % (Manual) 17 % (20-45) L Monocytes % (Manual) 6 % (1-10) Eosinophils % (Manual) 44 % (0-3) H Basophils % (Manual) 0 % (0-2) Band Neutrophils 0 % (0-8) Platelet Estimate Decreased L Platelet Morphology Normal Polychromasia 1+ Anisocytosis 1+ Current Medications Medications (Trade) Dose Ordered Sig/Alex Route PRN Reason Start Time Stop Time Status Last Admin Dose Admin Acetaminophen (Tylenol) 500 mg Q4H PRN ORAL Mild Pain (Pain Scale 1-3) 09/15/20 23:15 10/15/20 23:14 09/16/20 01:28 Acetaminophen (Tylenol) 500 mg Q4H PRN ORAL Temp >100.5 09/15/20 23:15 10/15/20 23:14 Clonidine HCl (Catapres Tab) 0.1 mg Q2H PRN GT For High Blood Pressure 09/17/20 17:00 12/16/20 16:59 Hydralazine HCl (Apresoline) 10 mg Q2H PRN IV For High Blood Pressure 09/17/20 17:00 12/16/20 16:59 Pantoprazole (Protonix) 40 mg EVERY 12 HOURS IVP 09/17/20 14:15 10/17/20 14:14 09/18/20 09:28 Piperacillin Sod/ Tazobactam Sod 3.375 gm/Sodium Chloride 110 ml @ 27.5 mls/hr EVERY 8 HOURS IVPB 09/16/20 14:00 09/21/20 21:59 09/18/20 05:08 Vancomycin HCl ([facility] pharmacy to dose) 1 ea DAILY PRN MISC Per rx protocol 09/16/20 16:00 10/16/20 15:59 Vancomycin HCl 1 gm/Sodium Chloride 275 ml @ 183.708 mls/hr Q24H IVPB 09/17/20 18:00 09/22/20 17:59 09/17/20 17:50 Mahesh Nicole MD Sep 18, 2020 12:17
--- NOTE | 2020-09-18 15:15 | General Progress Note ---
Subjective Allergies: Coded Allergies: No Known Allergies (Unverified , 11/22/15) Subjective Above noted d/w RN tolerating TF no further GT site bleeding Objective Last 24 Hour Vital Signs Date Time Temp Pulse Resp B/P (MAP) Pulse Ox O2 Delivery O2 Flow Rate FiO2 09/18/20 12:00 71 09/18/20 11:02 83 25 30 09/18/20 08:00 64 09/18/20 08:00 Mechanical Ventilator 09/18/20 08:00 56 20 143/89 (107) 100 09/18/20 08:00 30 09/18/20 07:02 53 14 30 09/18/20 04:00 99.0 75 20 143/89 (107) 99 09/18/20 04:00 30 09/18/20 04:00 Mechanical Ventilator 09/18/20 03:23 62 09/18/20 02:54 77 18 30 09/18/20 00:44 61 09/18/20 00:00 Mechanical Ventilator 09/18/20 00:00 98.4 60 18 118/66 (83) 99 09/17/20 22:42 72 15 30 09/17/20 20:00 Mechanical Ventilator 09/17/20 20:00 30 09/17/20 20:00 98.8 75 22 127/69 (88) 99 09/17/20 19:36 75 09/17/20 18:38 89 23 30 09/17/20 16:00 98.2 81 18 146/77 (100) 99 09/17/20 16:00 Mechanical Ventilator 09/17/20 16:00 30 09/17/20 16:00 75 Intake and Output 09/17/20 09/18/20 19:00 07:00 Intake Total 480 ml 960 ml Balance 480 ml 960 ml Free Water 260 ml 150 ml IV Total 350 ml Tube Feeding 220 ml 460 ml # Voids 3 # Bowel Movements 2 Laboratory Tests 09/17/20 16:43: POC Whole Blood Glucose 83 09/17/20 22:23: POC Whole Blood Glucose 86 09/18/20 05:48: POC Whole Blood Glucose 98 09/18/20 10:50: White Blood Count 11.6H, Red Blood Count 2.94L, Hemoglobin 9.0L, Hematocrit 26.9L, Mean Corpuscular Volume 91, Mean Corpuscular Hemoglobin 30.6, Mean Corpuscular Hemoglobin Concent 33.6, Red Cell Distribution Width 16.0H, Platelet Count 130L, Mean Platelet Volume 8.5, Neutrophils (%) (Auto) , Lymphocytes (%) (Auto) , Monocytes (%) (Auto) , Eosinophils (%) (Auto) , Basophils (%) (Auto) , Differential Total Cells Counted 100, Neutrophils % (Manual) 33L, Lymphocytes % (Manual) 17L, Monocytes % (Manual) 6, Eosinophils % (Manual) 44H, Basophils % (Manual) 0, Band Neutrophils 0, Platelet Estimate DecreasedL, Platelet Morphology Normal, Polychromasia 1+, Anisocytosis 1+ Height (Feet): 5 Height (Inches): 4.00 Weight (Pounds): 146 Objective debilitated Elderly woman on vent NCAT neck (+) trach coarse BS RR abd soft , flat, GT site without a significant discharge or drainage no edema, (++) contratures Assessment/Plan Status: progressing Assessment/Plan: Assessment - GT site drainage/discharge - resolved - OBS - Resp failure, s/p Trach - s/p PEG for dysphagia, - Parkinsons - Schizophrenia - h/o decub ulcers Recommendations - continue feeds - GT care - Elevate HOB - monitor labs Tana Romano MD Sep 18, 2020 15:15
[2020-09-18 16:00] VITALS: BP 126/73
--- NOTE | 2020-09-18 19:15 | NUR ---
NURSE HAND-OFF REPORT: Important Events on Shift: covid isolation removed Patient Status: obtunded Diet: Glucerna 1.5 x 50cc/hr Pending Orders: Pending Results/Labs: Pending MD notification: Latest Vital Signs: Temperature 98.2 , Pulse 64 , B/P 126 /73 , Respiratory Rate 15 , O2 SAT 100 , Mechanical Ventilator, O2 Flow Rate 50.0 . Vital Sign Comment: EKG Rhythm: Sinus Rhythm Rhythm change?: N MD Notified?: - MD Response: Latest [place] Fall Score: 50 Fall Risk: High Risk Safety Measures: Call light Within Reach, Bed Alarm Zone 3, Side Rails Side Rails x3, Bed position Low and Locked. Fall Precautions: Door Sign Report given to Corine MUNIZ.
--- NOTE | 2020-09-18 19:16 | NUR ---
NURSE NOTES: Report received from CRISTY Shelley. Upon assessment pt is obtunded, contracted, non-responsive to verbal stimuli. Pt saturating 100% on vent with settings of AC 12 / Vt 400 / fiO2 30% Peep of 5. 5-lead EKG shows SR at 87 BPM. Vitals WNL. Afebrile. g-tube running Glucerna 1.5 at 50 mL with 0 residual noted. Purewick noted. Right hand IV and Right hand AC patent and intact. Bed kept in lowest and locked position. Side rails up x3. Will continue monitoring.
[2020-09-18 20:00] VITALS: BP 110/54
--- NOTE | 2020-09-18 20:09 | General Progress Note ---
Subjective ROS Limited/Unobtainable: Yes Allergies: Coded Allergies: No Known Allergies (Unverified , 11/22/15) Objective Last 24 Hour Vital Signs Date Time Temp Pulse Resp B/P (MAP) Pulse Ox O2 Delivery O2 Flow Rate FiO2 09/18/20 20:00 Mechanical Ventilator 09/18/20 20:00 30 09/18/20 19:16 64 15 30 09/18/20 16:00 63 09/18/20 16:00 30 09/18/20 16:00 Mechanical Ventilator 09/18/20 16:00 98.2 74 20 126/73 (90) 100 09/18/20 15:01 61 13 30 09/18/20 12:00 99.0 57 20 127/64 (85) 96 09/18/20 12:00 71 09/18/20 12:00 Mechanical Ventilator 09/18/20 12:00 30 09/18/20 11:02 83 25 30 09/18/20 08:00 64 09/18/20 08:00 Mechanical Ventilator 09/18/20 08:00 98.2 56 20 143/89 (107) 100 09/18/20 08:00 30 09/18/20 07:02 53 14 30 09/18/20 04:00 99.0 75 20 143/89 (107) 99 09/18/20 04:00 30 09/18/20 04:00 Mechanical Ventilator 09/18/20 03:23 62 09/18/20 02:54 77 18 30 09/18/20 00:44 61 09/18/20 00:00 Mechanical Ventilator 09/18/20 00:00 98.4 60 18 118/66 (83) 99 09/17/20 22:42 72 15 30 Intake and Output 09/17/20 09/18/20 19:00 07:00 Intake Total 480 ml 960 ml Balance 480 ml 960 ml Free Water 260 ml 150 ml IV Total 350 ml Tube Feeding 220 ml 460 ml # Voids 3 # Bowel Movements 2 Laboratory Tests 09/17/20 22:23: POC Whole Blood Glucose 86 09/18/20 05:48: POC Whole Blood Glucose 98 09/18/20 10:50: White Blood Count 11.6H, Red Blood Count 2.94L, Hemoglobin 9.0L, Hematocrit 26.9L, Mean Corpuscular Volume 91, Mean Corpuscular Hemoglobin 30.6, Mean Corpuscular Hemoglobin Concent 33.6, Red Cell Distribution Width 16.0H, Platelet Count 130L, Mean Platelet Volume 8.5, Neutrophils (%) (Auto) , Lymphocytes (%) (Auto) , Monocytes (%) (Auto) , Eosinophils (%) (Auto) , Basophils (%) (Auto) , Differential Total Cells Counted 100, Neutrophils % (Manual) 33L, Lymphocytes % (Manual) 17L, Monocytes % (Manual) 6, Eosinophils % (Manual) 44H, Basophils % (Manual) 0, Band Neutrophils 0, Platelet Estimate DecreasedL, Platelet Morphology Normal, Polychromasia 1+, Anisocytosis 1+ Height (Feet): 5 Height (Inches): 4.00 Weight (Pounds): 146 Assessment/Plan Problem List: (1) Hypothyroidism ICD Codes: E03.9 - Hypothyroidism, unspecified SNOMED: 58660735 (2) Chronic respiratory failure ICD Codes: J96.10 - Chronic respiratory failure, unspecified whether with hypoxia or hypercapnia SNOMED: 13103816 (3) Functional quadriplegia ICD Codes: R53.2 - Functional quadriplegia SNOMED: 130508504852548 (4) Protein calorie malnutrition ICD Codes: E46 - Unspecified protein-calorie malnutrition SNOMED: 814898512 (5) Failure to thrive (child) ICD Codes: R62.51 - Failure to thrive (child) SNOMED: 151919342 (6) Sacral decubitus ulcer ICD Codes: L89.159 - Pressure ulcer of sacral region, unspecified stage SNOMED: 658177217 (7) Tracheostomy dependence ICD Codes: Z93.0 - Tracheostomy status SNOMED: 432188283 (8) Sepsis ICD Codes: A41.9 - Sepsis, unspecified organism SNOMED: 38374600 (9) Anemia ICD Codes: D64.9 - Anemia, unspecified SNOMED: 212022026 Qualifiers: Qualified Codes: D64.9 - Anemia, unspecified (10) UTI (urinary tract infection) ICD Codes: N39.0 - Urinary tract infection, site not specified SNOMED: 80214632 Qualifiers: Qualified Codes: N39.0 - Urinary tract infection, site not specified Status: progressing Assessment/Plan: trach and peg sepsis anemia malnutrition check h/h afebrile Sandeep Oneil MD Sep 18, 2020 20:09
[2020-09-19] VITALS: BP 131/79
[2020-09-19 04:00] VITALS: BP 129/64
[2020-09-19] MEDS: Piperacillin/Tazobactam 3.375 GM in NS 110 ML IVPB SCH ×3 (05:02→21:39)
--- NOTE | 2020-09-19 06:48 | Hematology/Onc Progress Note ---
Assessment/Plan Assessment/Plan LABORATORY DATA: 04/2020 white count 4.7, platelets 140 otherwise CBC is normal. BMP shows chloride 110, creatinine 0.4. Albumin 2.9, otherwise normal. INR 1.0, PTT 27. Urinalysis shows 2+ leukocyte esterase. 09/16 wbc 10, hgb 7.5, plt 126 Imaging 07/01/20 cxr Bilateral patchy airspace opacities. Differential includes multifocal pneumonia and pulmonary edema. 09/16/20 cxr b/l infiltrates noted Assessment and Recommendations # Anemia of iron deficiency, has been persistent for months, now improved, as ferritin better --> Anemia workup has been ordered--> improved --> No evidence of hemolysis is noted, peripheral smear has been reviewed. --> Hgb goal >7. Transfuse prn. --> Iron ivnot needed any further --> Medications have been reviewed --> gb 9-->8.4->>>>7.5-->9.4-->9 # Right breast calcifications --> does not have a breast mass on exam --> f/u as outpatient with mammo as needed --> do not do a us breast here # Thrombocytopenia - potential causes multifactorial, evaluate liver and viral etiologies to begin, also could be related to underlying medications, no wimproved --> Hep panel and HIV prior negative -> plt 183->203->199-->125->130 --> abx # Pna --> antibiotics per id # Sepsis --> antibiotics per Infectious Disease. --> ABX # Dehydration. --> PT and Dietary evaluation. # Hypertension --> Blood pressure control. # Dvt ppx scds The timing of this note does not necessarily reflect the time of the patient was seen Greatly appreciate consultation! Subjective HEENT: Denies: no symptoms, eye pain, blurred vision, tearing, double vision, ear pain, ear discharge, nose pain, nose congestion, throat pain, throat swelling, mouth pain, mouth swelling, other Cardiovascular: Denies: no symptoms, chest pain, edema, irregular heart rate, lightheadedness, palpitations, syncope, other Respiratory: Denies: no symptoms, cough, shortness of breath, SOB with excertion, SOB at rest, sputum, wheezing, other Gastrointestinal/Abdominal: Denies: no symptoms, abdomen distended, abdominal pain, black stools, tarry stools, blood in stool, constipated, diarrhea, difficulty swallowing, nausea, poor appetite, poor fluid intake, rectal bleeding, vomiting, other Genitourinary: Denies: no symptoms, burning, discharge, frequency, flank pain, hematuria, incontinence, pain, urgency, other Neurologic/Psychiatric: Denies: no symptoms, anxiety, depressed, emotional problems, headache, numbness, paresthesia, pre-existing deficit, seizure, tin gling, tremors, weakness, other Endocrine: Denies: no symptoms, excessive sweating, flushing, intolerance to cold, intolerance to heat, increased hunger, increased thirst, increased urine, unexplained weight gain, unexplained weight loss, other Allergies: Coded Allergies: No Known Allergies (Unverified , 11/22/15) Subjective 09/18 labs are noted, no bleeding, seen by pulm, cbc is pending 09/19 gtube is running, meds reviewed, labs noted Objective Objective Current Medications Medications (Trade) Dose Ordered Sig/Alxe Route PRN Reason Start Time Stop Time Status Last Admin Dose Admin Acetaminophen (Tylenol) 500 mg Q4H PRN ORAL Mild Pain (Pain Scale 1-3) 09/15/20 23:15 10/15/20 23:14 09/16/20 01:28 Acetaminophen (Tylenol) 500 mg Q4H PRN ORAL Temp >100.5 09/15/20 23:15 10/15/20 23:14 Clonidine HCl (Catapres Tab) 0.1 mg Q2H PRN GT For High Blood Pressure 09/17/20 17:00 12/16/20 16:59 Hydralazine HCl (Apresoline) 10 mg Q2H PRN IV For High Blood Pressure 09/17/20 17:00 12/16/20 16:59 Pantoprazole (Protonix) 40 mg EVERY 12 HOURS IVP 09/17/20 14:15 10/17/20 14:14 09/18/20 21:19 Piperacillin Sod/ Tazobactam Sod 3.375 gm/Sodium Chloride 110 ml @ 27.5 mls/hr EVERY 8 HOURS IVPB 09/16/20 14:00 09/21/20 21:59 09/19/20 05:02 Last 24 Hour Vital Signs Date Time Temp Pulse Resp B/P (MAP) Pulse Ox O2 Delivery O2 Flow Rate FiO2 09/19/20 04:00 99.1 64 20 129/64 (85) 100 09/19/20 04:00 Mechanical Ventilator 09/19/20 04:00 30 09/19/20 03:41 64 09/19/20 03:30 80 18 30 09/19/20 00:00 Mechanical Ventilator 09/19/20 00:00 98.6 72 20 131/79 (96) 100 09/19/20 00:00 61 09/18/20 22:58 62 14 30 09/18/20 20:00 Mechanical Ventilator 09/18/20 20:00 99.3 87 21 110/54 (72) 100 09/18/20 20:00 71 09/18/20 20:00 30 09/18/20 19:16 64 15 30 09/18/20 16:00 63 09/18/20 16:00 30 09/18/20 16:00 Mechanical Ventilator 09/18/20 16:00 98.2 74 20 126/73 (90) 100 09/18/20 15:01 61 13 30 09/18/20 12:00 99.0 57 20 127/64 (85) 96 09/18/20 12:00 71 09/18/20 12:00 Mechanical Ventilator 09/18/20 12:00 30 09/18/20 11:02 83 25 30 09/18/20 08:00 64 09/18/20 08:00 Mechanical Ventilator 09/18/20 08:00 98.2 56 20 143/89 (107) 100 09/18/20 08:00 30 09/18/20 07:02 53 14 30 09/18/20 04:00 99.0 75 20 143/89 (107) 99 09/18/20 04:00 30 09/18/20 04:00 Mechanical Ventilator 09/18/20 03:23 62 09/18/20 02:54 77 18 30 09/18/20 00:44 61 09/18/20 00:00 Mechanical Ventilator 09/18/20 00:00 98.4 60 18 118/66 (83) 99 09/17/20 22:42 72 15 30 09/17/20 20:00 Mechanical Ventilator 09/17/20 20:00 30 09/17/20 20:00 98.8 75 22 127/69 (88) 99 09/17/20 19:36 75 09/17/20 18:38 89 23 30 09/17/20 16:00 98.2 81 18 146/77 (100) 99 09/17/20 16:00 Mechanical Ventilator 09/17/20 16:00 30 09/17/20 16:00 75 09/17/20 14:56 83 21 30 09/17/20 12:00 88 09/17/20 11:47 30 09/17/20 11:47 Mechanical Ventilator 09/17/20 11:44 99.3 95 22 154/68 (96) 97 09/17/20 10:58 90 22 30 09/17/20 08:00 83 09/17/20 08:00 30 09/17/20 08:00 98.2 85 24 144/91 (108) 99 09/17/20 08:00 Mechanical Ventilator 09/17/20 07:19 81 26 30 Intake and Output 09/18/20 09/19/20 19:00 07:00 Intake Total 650 ml 739.7 ml Balance 650 ml 739.7 ml Free Water 60 ml IV Total 129.7 ml Tube Feeding 650 ml 550 ml # Voids 1 # Bowel Movements 1 Labs Test 09/16/20 16:52 09/16/20 22:21 09/17/20 03:40 09/17/20 06:24 POC Whole Blood Glucose 75 MG/DL (74-106) 80 MG/DL (74-106) 83 MG/DL (74-106) White Blood Count 10.3 K/UL (4.8-10.8) Red Blood Count 3.08 M/UL (4.20-5.40) Hemoglobin 9.7 G/DL (12.0-16.0) Hematocrit 28.2 % (37.0-47.0) Mean Corpuscular Volume 92 FL (80-99) Mean Corpuscular Hemoglobin 31.4 PG (27.0-31.0) Mean Corpuscular Hemoglobin Concent 34.3 G/DL (32.0-36.0) Red Cell Distribution Width 15.5 % (11.6-14.8) Platelet Count 124 K/UL (150-450) Mean Platelet Volume 10.2 FL (6.5-10.1) Neutrophils (%) (Auto) % (45.0-75.0) Lymphocytes (%) (Auto) % (20.0-45.0) Monocytes (%) (Auto) % (1.0-10.0) Eosinophils (%) (Auto) % (0.0-3.0) Basophils (%) (Auto) % (0.0-2.0) Differential Total Cells Counted 100 Neutrophils % (Manual) 60 % (45-75) Lymphocytes % (Manual) 14 % (20-45) Monocytes % (Manual) 5 % (1-10) Eosinophils % (Manual) 21 % (0-3) Basophils % (Manual) 0 % (0-2) Band Neutrophils 0 % (0-8) Platelet Estimate Decreased Platelet Morphology Normal Polychromasia 1+ Hypochromasia 1+ Anisocytosis 1+ Sodium Level 141 MMOL/L (136-145) Potassium Level 4.0 MMOL/L (3.5-5.1) Chloride Level 108 MMOL/L (98-107) Carbon Dioxide Level 24 MMOL/L (21-32) Anion Gap 9 mmol/L (5-15) Blood Urea Nitrogen 26 mg/dL (7-18) Creatinine 0.7 MG/DL (0.55-1.30) Estimat Glomerular Filtration Rate > 60 mL/min (>60) Glucose Level 92 MG/DL (74-106) Uric Acid 6.4 MG/DL (2.6-7.2) Calcium Level 9.6 MG/DL (8.5-10.1) Phosphorus Level 2.0 MG/DL (2.5-4.9) Magnesium Level 2.0 MG/DL (1.8-2.4) Ferritin 1738 NG/ML (8-388) Total Bilirubin 1.3 MG/DL (0.2-1.0) Direct Bilirubin 0.3 MG/DL (0.0-0.3) Aspartate Amino Transf (AST/SGOT) 15 U/L (15-37) Alanine Aminotransferase (ALT/SGPT) 20 U/L (12-78) Alkaline Phosphatase 114 U/L (46-116) Troponin I 0.004 ng/mL (0.000-0.056) C-Reactive Protein, Quantitative 23.8 mg/dL (0.00-0.90) Total Protein 8.3 G/DL (6.4-8.2) Albumin 2.7 G/DL (3.4-5.0) Globulin 5.6 g/dL Albumin/Globulin Ratio 0.5 (1.0-2.7) Vitamin B12 Level 1819 PG/ML (193-986) Folate 73.1 NG/ML (8.6-58.9) Test 09/17/20 11:38 09/17/20 16:43 09/17/20 22:23 09/18/20 05:48 POC Whole Blood Glucose 81 MG/DL (74-106) 83 MG/DL (74-106) 86 MG/DL (74-106) 98 MG/DL (74-106) Test 09/18/20 10:50 White Blood Count 11.6 K/UL (4.8-10.8) Red Blood Count 2.94 M/UL (4.20-5.40) Hemoglobin 9.0 G/DL (12.0-16.0) Hematocrit 26.9 % (37.0-47.0) Mean Corpuscular Volume 91 FL (80-99) Mean Corpuscular Hemoglobin 30.6 PG (27.0-31.0) Mean Corpuscular Hemoglobin Concent 33.6 G/DL (32.0-36.0) Red Cell Distribution Width 16.0 % (11.6-14.8) Platelet Count 130 K/UL (150-450) Mean Platelet Volume 8.5 FL (6.5-10.1) Neutrophils (%) (Auto) % (45.0-75.0) Lymphocytes (%) (Auto) % (20.0-45.0) Monocytes (%) (Auto) % (1.0-10.0) Eosinophils (%) (Auto) % (0.0-3.0) Basophils (%) (Auto) % (0.0-2.0) Differential Total Cells Counted 100 Neutrophils % (Manual) 33 % (45-75) Lymphocytes % (Manual) 17 % (20-45) Monocytes % (Manual) 6 % (1-10) Eosinophils % (Manual) 44 % (0-3) Basophils % (Manual) 0 % (0-2) Band Neutrophils 0 % (0-8) Platelet Estimate Decreased Platelet Morphology Normal Polychromasia 1+ Anisocytosis 1+ Height (Feet): 5 Height (Inches): 4.00 Weight (Pounds): 146 Objective PHYSICAL EXAMINATION: GENERAL: Slightly confused in bed, oriented x1, CARDIOVASCULAR: No murmur. LUNGS: Poor air exchange.+vent/trach ABDOMEN: Bowel sounds distant.++peg EXTREMITIES: No cyanosis, clubbing, or edema NEUROLOGIC: Neck, weakness as well leaning forward.bedbound++ Alan Cazares MD Sep 19, 2020 06:48
--- NOTE | 2020-09-19 06:49 | NUR ---
NURSE HAND-OFF REPORT: Important Events on Shift: No changes Patient Status: Stable Diet: Glucerna 1.5 Pending Orders: Pending Results/Labs: Pending MD notification: Latest Vital Signs: Temperature 99.1 , Pulse 64 , B/P 129 /64 , Respiratory Rate 20 , O2 SAT 100 , Mechanical Ventilator, O2 Flow Rate 50.0 . Vital Sign Comment: WNL EKG Rhythm: Sinus Rhythm Rhythm change?: N MD Notified?: - MD Response: Latest [place] Fall Score: 50 Fall Risk: High Risk Safety Measures: Call light Within Reach, Bed Alarm Zone 3, Side Rails Side Rails x3, Bed position Low and Locked. Fall Precautions: Door Sign Report given to CRISTY Chin.
--- NOTE | 2020-09-19 07:33 | NUR ---
NURSE NOTES: Report received RN Humaira ,patient asleep on ventilator,G tube feeding,head elevated,observe aspiration precaution,isolation precaution,continue to monitor
[2020-09-19 08:00] VITALS: BP 119/52
[2020-09-19] MEDS: Pantoprazole Inj IVP SCH ×2 (09:27→21:38)
--- NOTE | 2020-09-19 10:54 | Infectious Diseases Prog Note ---
Assessment/Plan Assessment/Plan IMPRESSION: VRE sepsis ( Amp sensitive) Serratia & other gram negative pneumonia, E coli UTI, Ventilator-dependent respiratory failure, Quadriplegia, Stage IV sacral ulcer, COPD, Iron deficiency anemia, Hypertension, history of atrial fibrillation. Negative COVI19 tests RECOMMENDATION: We will f/u sputum cultures. Continue Zosyn Subjective ROS Limited/Unobtainable: Yes Allergies: Coded Allergies: No Known Allergies (Unverified , 11/22/15) Objective Last 24 Hour Vital Signs Date Time Temp Pulse Resp B/P (MAP) Pulse Ox O2 Delivery O2 Flow Rate FiO2 09/19/20 09:27 82 18 30 09/19/20 08:00 98.2 55 17 119/52 (74) 96 09/19/20 04:00 99.1 64 20 129/64 (85) 100 09/19/20 04:00 Mechanical Ventilator 09/19/20 04:00 30 09/19/20 03:41 64 09/19/20 03:30 80 18 30 09/19/20 00:00 Mechanical Ventilator 09/19/20 00:00 98.6 72 20 131/79 (96) 100 09/19/20 00:00 61 09/18/20 22:58 62 14 30 09/18/20 20:00 Mechanical Ventilator 09/18/20 20:00 99.3 87 21 110/54 (72) 100 09/18/20 20:00 71 09/18/20 20:00 30 09/18/20 19:16 64 15 30 09/18/20 16:00 63 09/18/20 16:00 30 09/18/20 16:00 Mechanical Ventilator 09/18/20 16:00 98.2 74 20 126/73 (90) 100 09/18/20 15:01 61 13 30 09/18/20 12:00 99.0 57 20 127/64 (85) 96 09/18/20 12:00 71 09/18/20 12:00 Mechanical Ventilator 09/18/20 12:00 30 09/18/20 11:02 83 25 30 Height (Feet): 5 Height (Inches): 4.00 Weight (Pounds): 146 HEENT: status post trach Respiratory/Chest: lungs clear, other - on ventilator Cardiovascular: normal rate Abdomen: soft, non tender, other - GT feeding Skin: ulcers - sacral stage 4 Neurologic/Psychiatric: aphasia, other - opens eyes Microbiology Date/Time Source Procedure Growth Status 09/16/20 18:00 Sputum Expectorated Gram Stain - Final Resulted 09/16/20 18:00 Sputum Culture - Preliminary Serratia Marcescens Gram Negative Bacillus 2 Gram Negative Bacillus 3 Resulted Current Medications Medications (Trade) Dose Ordered Sig/Alex Route PRN Reason Start Time Stop Time Status Last Admin Dose Admin Acetaminophen (Tylenol) 500 mg Q4H PRN ORAL Mild Pain (Pain Scale 1-3) 09/15/20 23:15 10/15/20 23:14 09/16/20 01:28 Acetaminophen (Tylenol) 500 mg Q4H PRN ORAL Temp >100.5 09/15/20 23:15 10/15/20 23:14 Clonidine HCl (Catapres Tab) 0.1 mg Q2H PRN GT For High Blood Pressure 09/17/20 17:00 12/16/20 16:59 Hydralazine HCl (Apresoline) 10 mg Q2H PRN IV For High Blood Pressure 09/17/20 17:00 12/16/20 16:59 Pantoprazole (Protonix) 40 mg EVERY 12 HOURS IVP 09/17/20 14:15 10/17/20 14:14 09/19/20 09:27 Piperacillin Sod/ Tazobactam Sod 3.375 gm/Sodium Chloride 110 ml @ 27.5 mls/hr EVERY 8 HOURS IVPB 09/16/20 14:00 09/21/20 21:59 09/19/20 05:02 Mahesh Nicole MD Sep 19, 2020 10:54
--- NOTE | 2020-09-19 11:39 | Cardiac Electrophysiology PN ---
Assessment/Plan Assessment/Plan 1. Hypertension, currently blood pressure stable. On p.r.n. Hydralazine and clonidine 2. Ventilator-dependent respiratory failure status post tracheostomy on 30% FiO2, in sinus rhythm, awaiting PCR. COVID was negative. 3. Severe anemia, hemoglobin 7.5. S/P blood transfusion. Etiology is not clear at this time, but creatinine is within normal range. 4. Elevated BNP of more than 4000. Echo EF 65% 5. Dysphagia, status post PEG placement. Subjective Subjective Off covid isolation. Rapid Covid is negative. On the Vent with 30% Fio2 off restraints. Contracted Objective Last 24 Hour Vital Signs Date Time Temp Pulse Resp B/P (MAP) Pulse Ox O2 Delivery O2 Flow Rate FiO2 09/19/20 09:27 82 18 30 09/19/20 08:00 98.2 55 17 119/52 (74) 96 09/19/20 04:00 99.1 64 20 129/64 (85) 100 09/19/20 04:00 Mechanical Ventilator 09/19/20 04:00 30 09/19/20 03:41 64 09/19/20 03:30 80 18 30 09/19/20 00:00 Mechanical Ventilator 09/19/20 00:00 98.6 72 20 131/79 (96) 100 09/19/20 00:00 61 09/18/20 22:58 62 14 30 09/18/20 20:00 Mechanical Ventilator 09/18/20 20:00 99.3 87 21 110/54 (72) 100 09/18/20 20:00 71 09/18/20 20:00 30 09/18/20 19:16 64 15 30 09/18/20 16:00 63 09/18/20 16:00 30 09/18/20 16:00 Mechanical Ventilator 09/18/20 16:00 98.2 74 20 126/73 (90) 100 09/18/20 15:01 61 13 30 09/18/20 12:00 99.0 57 20 127/64 (85) 96 09/18/20 12:00 71 09/18/20 12:00 Mechanical Ventilator 09/18/20 12:00 30 Intake and Output 09/18/20 09/19/20 19:00 07:00 Intake Total 650 ml 739.7 ml Balance 650 ml 739.7 ml Free Water 60 ml IV Total 129.7 ml Tube Feeding 650 ml 550 ml # Voids 1 # Bowel Movements 1 Microbiology Date/Time Source Procedure Growth Status 09/16/20 18:00 Sputum Expectorated Gram Stain - Final Resulted 09/16/20 18:00 Sputum Culture - Preliminary Serratia Marcescens Gram Negative Bacillus 2 Gram Negative Bacillus 3 Resulted Objective HEAD AND NECK: No JVD.S/P Trach LUNGS: Coarse rhonchi. CARDIOVASCULAR: Regular S1 and S2 with no gallop. ABDOMEN: Status post PEG. EXTREMITIES: 1+ pitting edema. Flex Bess MD Sep 19, 2020 11:39
--- NOTE | 2020-09-19 11:43 | General Progress Note ---
Subjective ROS Limited/Unobtainable: Yes Allergies: Coded Allergies: No Known Allergies (Unverified , 11/22/15) Objective Last 24 Hour Vital Signs Date Time Temp Pulse Resp B/P (MAP) Pulse Ox O2 Delivery O2 Flow Rate FiO2 09/19/20 09:27 82 18 30 09/19/20 08:00 98.2 55 17 119/52 (74) 96 09/19/20 04:00 99.1 64 20 129/64 (85) 100 09/19/20 04:00 Mechanical Ventilator 09/19/20 04:00 30 09/19/20 03:41 64 09/19/20 03:30 80 18 30 09/19/20 00:00 Mechanical Ventilator 09/19/20 00:00 98.6 72 20 131/79 (96) 100 09/19/20 00:00 61 09/18/20 22:58 62 14 30 09/18/20 20:00 Mechanical Ventilator 09/18/20 20:00 99.3 87 21 110/54 (72) 100 09/18/20 20:00 71 09/18/20 20:00 30 09/18/20 19:16 64 15 30 09/18/20 16:00 63 09/18/20 16:00 30 09/18/20 16:00 Mechanical Ventilator 09/18/20 16:00 98.2 74 20 126/73 (90) 100 09/18/20 15:01 61 13 30 09/18/20 12:00 99.0 57 20 127/64 (85) 96 09/18/20 12:00 71 09/18/20 12:00 Mechanical Ventilator 09/18/20 12:00 30 Intake and Output 09/18/20 09/19/20 19:00 07:00 Intake Total 650 ml 739.7 ml Balance 650 ml 739.7 ml Free Water 60 ml IV Total 129.7 ml Tube Feeding 650 ml 550 ml # Voids 1 # Bowel Movements 1 Height (Feet): 5 Height (Inches): 4.00 Weight (Pounds): 146 Assessment/Plan Problem List: (1) Hypothyroidism ICD Codes: E03.9 - Hypothyroidism, unspecified SNOMED: 11727125 (2) Chronic respiratory failure ICD Codes: J96.10 - Chronic respiratory failure, unspecified whether with hypoxia or hypercapnia SNOMED: 76024051 (3) Functional quadriplegia ICD Codes: R53.2 - Functional quadriplegia SNOMED: 209869205545434 (4) Protein calorie malnutrition ICD Codes: E46 - Unspecified protein-calorie malnutrition SNOMED: 248654374 (5) Failure to thrive (child) ICD Codes: R62.51 - Failure to thrive (child) SNOMED: 178976539 (6) Sacral decubitus ulcer ICD Codes: L89.159 - Pressure ulcer of sacral region, unspecified stage SNOMED: 105576175 (7) Tracheostomy dependence ICD Codes: Z93.0 - Tracheostomy status SNOMED: 108351520 (8) Sepsis ICD Codes: A41.9 - Sepsis, unspecified organism SNOMED: 44224718 (9) Anemia ICD Codes: D64.9 - Anemia, unspecified SNOMED: 903450767 Qualifiers: Qualified Codes: D64.9 - Anemia, unspecified (10) UTI (urinary tract infection) ICD Codes: N39.0 - Urinary tract infection, site not specified SNOMED: 51075155 Qualifiers: Qualified Codes: N39.0 - Urinary tract infection, site not specified Status: progressing Assessment/Plan: trach and peg sepsis anemia afebrile reviewed chart and labs no acute events Sandeep Oneil MD Sep 19, 2020 11:43
[2020-09-19 12:00] VITALS: BP 143/68
--- NOTE | 2020-09-19 12:34 | Pulmonology Progress Note ---
Subjective ROS Limited/Unobtainable: Yes Interval Events: None new Constitutional: Denies: fever HEENT: Repors: no symptoms Respiratory: Reports: no symptoms Cardiovascular: Reports: no symptoms Gastrointestinal/Abdominal: Reports: no symptoms Genitourinary: Reports: no symptoms Allergies: Coded Allergies: No Known Allergies (Unverified , 11/22/15) Objective Last 24 Hour Vital Signs Date Time Temp Pulse Resp B/P (MAP) Pulse Ox O2 Delivery O2 Flow Rate FiO2 09/19/20 09:27 82 18 30 09/19/20 08:00 98.2 55 17 119/52 (74) 96 09/19/20 04:00 99.1 64 20 129/64 (85) 100 09/19/20 04:00 Mechanical Ventilator 09/19/20 04:00 30 09/19/20 03:41 64 09/19/20 03:30 80 18 30 09/19/20 00:00 Mechanical Ventilator 09/19/20 00:00 98.6 72 20 131/79 (96) 100 09/19/20 00:00 61 09/18/20 22:58 62 14 30 09/18/20 20:00 Mechanical Ventilator 09/18/20 20:00 99.3 87 21 110/54 (72) 100 09/18/20 20:00 71 09/18/20 20:00 30 09/18/20 19:16 64 15 30 09/18/20 16:00 63 09/18/20 16:00 30 09/18/20 16:00 Mechanical Ventilator 09/18/20 16:00 98.2 74 20 126/73 (90) 100 09/18/20 15:01 61 13 30 Intake and Output 09/18/20 09/19/20 19:00 07:00 Intake Total 650 ml 739.7 ml Balance 650 ml 739.7 ml Free Water 60 ml IV Total 129.7 ml Tube Feeding 650 ml 550 ml # Voids 1 # Bowel Movements 1 General Appearance: no acute distress HEENT: normocephalic, atraumatic, status post trach Respiratory: chest wall non-tender, lungs clear, other - coarse rhonchi Cardiovascular: normal rate, regular rhythm Abdomen: normal bowel sounds, distended Microbiology Date/Time Source Procedure Growth Status 09/16/20 18:00 Sputum Expectorated Gram Stain - Final Resulted 09/16/20 18:00 Sputum Culture - Preliminary Serratia Marcescens Gram Negative Bacillus 2 Gram Negative Bacillus 3 Resulted Current Medications Medications (Trade) Dose Ordered Sig/Alex Route PRN Reason Start Time Stop Time Status Last Admin Dose Admin Acetaminophen (Tylenol) 500 mg Q4H PRN ORAL Mild Pain (Pain Scale 1-3) 09/15/20 23:15 10/15/20 23:14 09/16/20 01:28 Acetaminophen (Tylenol) 500 mg Q4H PRN ORAL Temp >100.5 09/15/20 23:15 10/15/20 23:14 Clonidine HCl (Catapres Tab) 0.1 mg Q2H PRN GT For High Blood Pressure 09/17/20 17:00 12/16/20 16:59 Hydralazine HCl (Apresoline) 10 mg Q2H PRN IV For High Blood Pressure 09/17/20 17:00 12/16/20 16:59 Pantoprazole (Protonix) 40 mg EVERY 12 HOURS IVP 09/17/20 14:15 10/17/20 14:14 09/19/20 09:27 Piperacillin Sod/ Tazobactam Sod 3.375 gm/Sodium Chloride 110 ml @ 27.5 mls/hr EVERY 8 HOURS IVPB 09/16/20 14:00 09/21/20 21:59 09/19/20 05:02 Assessment/Plan Assessment/Plan 1. Anemia, likely iron deficiency. - On IV iron. - s/p transfusion per Dr. Cazares. - Anemia workup ordered per Dr. Cazares. 2. Interstitial infiltrates, likely pneumonia. - Sputum -> Serratia - Antibiotics per ID. - Continue supplemental oxygen; continue ventilator, AC mode.FiO2 30% 3. Sepsis. - Antibiotics per ID. Gm neg rods in sputum CS 4. History of fever. - Currently afebrile. 5. Possible COVID-19 infection. - Swab COVID-19 test negative. - Repeat PCR COVID-19 talso negative 6. CHF. - 2D echocardiogram ordered per Cardio. 7. UTI. - On antibiotics. Has ESBL E. Coli 8. Elevated D-dimer. 9. DVT prophylaxis. - Venous duplex ultrasound negative. - on SCD 10. Chronic Respiratory Failure; continue vent; AC mode The history of Jennifer Gao has been reviewed and management options for her have been examined and discussed by Mino Childs. I have personally examined and interviewed the patient. Mino Childs MD Sep 19, 2020 12:34
--- NOTE | 2020-09-19 13:09 | NUR ---
RD ASSESSMENT & RECOMMENDATIONS SEE CARE ACTIVITY FOR COMPLETE ASSESSMENT DAILY ESTIMATED NEEDS: Needs based on Wound, critical care 57.5kg abw 25-30 kcals/kg 4771-8824 total kcals 1.25-2 g protein/kg 72-115 g total protein 25-30 mL/kg 9103-6754 total fluid mLs NUTRITION DIAGNOSIS: * Increased kcal/prot needs R/T wound healing as evidenced by pt w/ h/o stage 4 sacral wound, eval is pending. * Swallowing difficulty R/T dysphagia, respiratory status as evidenced by pt is Trach and PEG dep. CURRENT TF: Glucerna 1.2 goal of 50ml/hr ENTERAL NUTRITION RECOMMENDATIONS: Glucerna 1.2 @ 55ml/hr x 24 hrs to provide 1320ml, 1584 kcal, 79g pro, 1063ml free H2O * Increase goal by 5ml/hr to goal of 55ml/hr x24 hrs to better meet est needs. * Add TYRESE in 4oz water BID via PEG for wound healing * HOB over 30 degrees/ water flush per MD ADDITIONAL RECOMMENDATIONS: * Calibrated bedscale wt for accurate CBW * Wound healing: TYRESE BID, Vit C 250mg BID Add Zn SO4 220mg qd x10 days * Monitor lytes, replete as needed * Monitor BGs w/ TF-> bed side BG checks + NISS .
--- NOTE | 2020-09-19 13:54 | NUR ---
CASE MANAGEMENT:REVIEW 09/19/20 SI: SEPSIS. PNA. UTI. TRACH/VENT/GTUBE 98.2 55 17 119/52 96% ON VENT SUPPORT W/30% FIO2 IS: IV ZOSYN Q8HRS IV PROTONIX Q12 : STEP DOWN UNIT
[2020-09-19 16:00] VITALS: BP 124/66
--- NOTE | 2020-09-19 17:01 | General Progress Note ---
Subjective Allergies: Coded Allergies: No Known Allergies (Unverified , 11/22/15) Subjective Above noted d/w daughter at length re anemia and overall poor health daughter not interested in colonoscopy, given poor health but interested in EGD, kerline since would be able to change GT Objective Last 24 Hour Vital Signs Date Time Temp Pulse Resp B/P (MAP) Pulse Ox O2 Delivery O2 Flow Rate FiO2 09/19/20 16:00 98.8 66 18 124/66 (85) 99 09/19/20 12:00 Mechanical Ventilator 09/19/20 12:00 99.0 62 16 143/68 (93) 100 09/19/20 12:00 30 09/19/20 11:48 64 09/19/20 11:30 65 14 30 09/19/20 09:27 82 18 30 09/19/20 08:40 Mechanical Ventilator 09/19/20 08:00 30 09/19/20 08:00 98.2 55 17 119/52 (74) 96 09/19/20 07:47 58 09/19/20 04:00 99.1 64 20 129/64 (85) 100 09/19/20 04:00 Mechanical Ventilator 09/19/20 04:00 30 09/19/20 03:41 64 09/19/20 03:30 80 18 30 09/19/20 00:00 Mechanical Ventilator 09/19/20 00:00 98.6 72 20 131/79 (96) 100 09/19/20 00:00 61 09/18/20 22:58 62 14 30 09/18/20 20:00 Mechanical Ventilator 09/18/20 20:00 99.3 87 21 110/54 (72) 100 09/18/20 20:00 71 09/18/20 20:00 30 09/18/20 19:16 64 15 30 Intake and Output 09/18/20 09/19/20 19:00 07:00 Intake Total 650 ml 739.7 ml Balance 650 ml 739.7 ml Free Water 60 ml IV Total 129.7 ml Tube Feeding 650 ml 550 ml # Voids 1 # Bowel Movements 1 Laboratory Tests 09/19/20 13:48: POC Whole Blood Glucose 93 Height (Feet): 5 Height (Inches): 4.00 Weight (Pounds): 146 Objective debilitated Elderly woman on vent NCAT neck (+) trach coarse BS RR abd soft , flat, GT site without a significant discharge or drainage no edema, (++) contractures Assessment/Plan Status: progressing Assessment/Plan: Assessment - GT site drainage/discharge - resolved - OBS - Resp failure, s/p Trach - s/p PEG for dysphagia, - Parkinsons - Schizophrenia - h/o decub ulcers - Severe anemia Recommendations - continue feeds - GT care - Elevate HOB - monitor labs - EGD with GT change later this week Tana Romano MD Sep 19, 2020 17:01
--- NOTE | 2020-09-19 17:19 | Surgery Progress Note ---
Surgery Progress Note Subjective Additional Comments labs noted exam stable meds reviewed comfortable Objective Last 24 Hour Vital Signs Date Time Temp Pulse Resp B/P (MAP) Pulse Ox O2 Delivery O2 Flow Rate FiO2 09/19/20 16:00 30 09/19/20 16:00 98.8 66 18 124/66 (85) 99 09/19/20 16:00 75 09/19/20 15:28 72 22 30 09/19/20 12:00 Mechanical Ventilator 09/19/20 12:00 99.0 62 16 143/68 (93) 100 09/19/20 12:00 30 09/19/20 12:00 64 09/19/20 11:48 64 09/19/20 11:30 65 14 30 09/19/20 09:27 82 18 30 09/19/20 08:40 Mechanical Ventilator 09/19/20 08:00 30 09/19/20 08:00 98.2 55 17 119/52 (74) 96 09/19/20 07:47 58 09/19/20 04:00 99.1 64 20 129/64 (85) 100 09/19/20 04:00 Mechanical Ventilator 09/19/20 04:00 30 09/19/20 03:41 64 09/19/20 03:30 80 18 30 09/19/20 00:00 Mechanical Ventilator 09/19/20 00:00 98.6 72 20 131/79 (96) 100 09/19/20 00:00 61 09/18/20 22:58 62 14 30 09/18/20 20:00 Mechanical Ventilator 09/18/20 20:00 99.3 87 21 110/54 (72) 100 09/18/20 20:00 71 09/18/20 20:00 30 09/18/20 19:16 64 15 30 I&O Intake and Output 09/18/20 09/19/20 19:00 07:00 Intake Total 650 ml 739.7 ml Balance 650 ml 739.7 ml Free Water 60 ml IV Total 129.7 ml Tube Feeding 650 ml 550 ml # Voids 1 # Bowel Movements 1 Dressing: saturated Cardiovascular: RSR Respiratory: decreased breath sounds Abdomen: non-tender, present bowel sounds Extremities: no tenderness, no cyanosis Laboratory Tests Test 09/19/20 13:48 POC Whole Blood Glucose 93 MG/DL (74-106) Plan Problems: (1) Pneumonia (2) Functional quadriplegia (3) Person under investigation for COVID-19 (4) Chronic respiratory failure (5) Dehydration (6) Hypernatremia (7) Hypothyroidism (8) Pyelonephritis (9) Protein calorie malnutrition Assessment & Plan: DAILY ESTIMATED NEEDS: Needs based on Wound, critical care 57.5kg abw 25-30 kcals/kg 0893-4500 total kcals 1.25-2 g protein/kg 72-115 g total protein 25-30 mL/kg 2990-8433 total fluid mLs NUTRITION DIAGNOSIS: * Increased kcal/prot needs R/T wound healing as evidenced by pt w/ h/o stage 4 sacral wound, eval is pending. * Swallowing difficulty R/T dysphagia, respiratory status as evidenced by pt is Trach and PEG dep. ENTERAL NUTRITION RECOMMENDATIONS: Glucerna 1.2 @ 55ml/hr x 24 hrs to provide 1320ml, 1584 kcal, 79g pro, 1063ml free H2O * As medically able, start Glucerna 1.2 @35ml/hr for 6 hrs, advance as tolerated q4-6 to goal. * Add TYRESE in 4oz water BID via PEG for wound healing * HOB over 30 degrees/ water flush per MD ADDITIONAL RECOMMENDATIONS: * Calibrated bedscale wt for accurate CBW * Wound healing: TYRESE BID, Vit C 250mg BID F/up w/ WC eval * Monitor lytes, replete as needed * Monitor BGs w/ TF-> bed side BG checks + NISS (10) Failure to thrive (child) (11) Sacral decubitus ulcer Assessment & Plan: Pt presented on admission with Tracheostomy, GT, and mul tiple Pressure injuries. No erythema or evidence of skin breakdown under tracheal collar. dry dark brown skin plaque noted at R lateral chest to R flank. Full thickness stage 4 Sacral Pressure Injury with undermined borders(L)2cm x (W)2cm x (D)2cm, undermining clockwise 11-3 by 2.3cm @3o'clock.Ability to accurately assess base of wound is not fully appreciated secondary to shape of wound. (+) Epibole along edges of wound. Silver Nitrate sticks application applied to Borders. Bone is palpable when probed.Small amt brown exudate noted. No odor noted. [place] Atrophic scar periwound. Resolving Pressure Injury R Ischium. [place] epithelial noted at base of wound. Intact serous Blister noted to monica/upper L thigh. No erythema or changes in skin temp at affected site. Reabsorbing DTPI L Hallux. Base of Pressure injury is dark brown,dry without erythema,induration or fluctuance. L Heel is boggy with non-blanchable erythema. R Heel is boggy but blanchable. Tx.Plan: Cleanse Sacral wound with Saline. Loosely pack with Therahoney impregnated Kerlix.Apply Moisture Barrier Paste periwound. Cover with Optifoam drsg every 3 days and prn. Apply Moisture Barrier Paste to R Ischium. Cover with Optifoam drsg. Change every 3 days and prn. Apply Phytoplex Skin Nourishing lotion to Lateral R chest /R Flank Daily. Apply Cavilon Skin Barrier to R and L Heel. Cover each heel with Optifoam drsg.Change every 7 days and prn. Reposition at least every 2hours or as tolerated. Off-load heels with pillow. (12) Tracheostomy dependence (13) Sepsis (14) UTI (urinary tract infection) (15) Anemia (16) Dysphagia (17) Hypoalbuminemia (18) Iron deficiency (19) At high risk for aspiration (20) Parkinson disease (21) Dementia (22) Elevated CEA (23) Paroxysmal A-fib (24) Pancytopenia Holland Petty Sep 19, 2020 17:19
[2020-09-19] MEDS: Ascorbic Acid 500mg tab ORAL SCH (19:00)
--- NOTE | 2020-09-19 19:43 | NUR ---
NURSE HAND-OFF REPORT: Important Events on Shift:HR-58 this morning Patient Status: stable Diet: G tube Pending Orders: none Pending Results/Labs:none Pending MD notification:none Latest Vital Signs: Temperature 98.8 , Pulse 62 , B/P 124 /66 , Respiratory Rate 18 , O2 SAT 99 , Mechanical Ventilator, O2 Flow Rate 50.0 . Vital Sign Comment: afebrile EKG Rhythm: Sinus Rhythm Rhythm change?: N MD Notified?: - MD Response: Latest [place] Fall Score: 50 Fall Risk: High Risk Safety Measures: Call light Within Reach, Bed Alarm Zone 3, Side Rails Side Rails x2, Bed position Low and Locked. Fall Precautions: Yellow Socks Yellow Gown Door Sign Report given to .CRISTY Colon
--- NOTE | 2020-09-19 19:45 | NUR ---
NURSE NOTES: Received patient from CRISTY Chin under the care of Dr. Oneil for the admitting dx. of fever. Patient noted with no allergies and full code status. Patient on contact isolation, observed and maintained at all times. Patient is obtunded, with eyes open but does not track. Noted SR on the hospital monitor. No sign of pain or discomfort at this time. Will continue to monitor.
[2020-09-19 20:00] VITALS: BP 118/60
--- NOTE | 2020-09-19 21:00 | NUR ---
NURSE NOTES: Patient awake. No distress noted. 0/10 FLACC score noted. Will continue to monitor.
[2020-09-20] VITALS: BP 124/68
--- NOTE | 2020-09-20 | NUR ---
NURSE NOTES: Patient tolerating vent settings well. No acute distress or discomfort noted. Will continue to monitor.
--- NOTE | 2020-09-20 02:45 | NUR ---
NURSE HAND-OFF REPORT: Important Events on Shift:IV atb Patient Status: Stable Diet: GT Pending Orders: Pending Results/Labs: Pending MD notification: Latest Vital Signs: Temperature 99.0 , Pulse 67 , B/P 124 /68 , Respiratory Rate 19 , O2 SAT 98 , Mechanical Ventilator, O2 Flow Rate 50.0 . Vital Sign Comment: WNL EKG Rhythm: Sinus Rhythm Rhythm change?: N MD Notified?: - MD Response: Latest [place] Fall Score: 50 Fall Risk: High Risk Safety Measures: Call light Within Reach, Bed Alarm Zone 3, Side Rails Side Rails x2, Bed position Low and Locked. Fall Precautions: Yellow Socks Yellow Gown Door Sign Report given to CRISTY Zabala.
--- NOTE | 2020-09-20 02:50 | NUR ---
NURSE NOTES: Received report from Isaiah MUNIZ, pt. in bed awake, with eyes open- non-verbal, no signs or symptoms of acute cardiac or respiratory distress noted, bed alarm on, side rails up x's3 and safety brakes engaged, call light within easy reach, pt. appears to be tolerating current vent settings well- AC 12, TV 400, Fio2 at 30% and peep 5- no distress noted, G tube running Glucerna 1.2 running at 50cc/hr- no residual noted, [place] intact and draining to gravity, pt. appears clean and dry, Rt. hand 22G IV intact and patent, Rt. AC 20G IV intact and patent- safety measures continued, will continue with plan of care. Addendum: 09/20/20 at 0410 by FREDA HEADLEY RN RN correction to message above pt. has no [place]- she has pure wick- which is intact and set to suction.
[2020-09-20 04:00] VITALS: BP 139/78
[2020-09-20] MEDS: Piperacillin/Tazobactam 3.375 GM in NS 110 ML IVPB SCH (05:14)
--- NOTE | 2020-09-20 06:19 | NUR ---
NURSE NOTES: notified Dr. Kellen Avitia- regarding blood culture results is gram positive cocci in clusters- per doctor to order Vancomycin IVPB per pharmacy to dose- orders carried out and verified over the phone.
--- NOTE | 2020-09-20 06:36 | Hematology/Onc Progress Note ---
Assessment/Plan Assessment/Plan LABORATORY DATA: 04/2020 white count 4.7, platelets 140 otherwise CBC is normal. BMP shows chloride 110, creatinine 0.4. Albumin 2.9, otherwise normal. INR 1.0, PTT 27. Urinalysis shows 2+ leukocyte esterase. 09/16 wbc 10, hgb 7.5, plt 126 Imaging 07/01/20 cxr Bilateral patchy airspace opacities. Differential includes multifocal pneumonia and pulmonary edema. 09/16/20 cxr b/l infiltrates noted Assessment and Recommendations # Anemia of iron deficiency, has been persistent for months, now improved, as ferritin better --> Anemia workup has been ordered--> improved --> No evidence of hemolysis is noted, peripheral smear has been reviewed. --> Hgb goal >7. Transfuse prn. --> Iron ivnot needed any further --> Medications have been reviewed --> gb 9-->8.4->>>>7.5-->9.4-->9 # Right breast calcifications --> does not have a breast mass on exam --> f/u as outpatient with mammo as needed --> do not do a us breast here # Thrombocytopenia - potential causes multifactorial, evaluate liver and viral etiologies to begin, also could be related to underlying medications, no wimproved --> Hep panel and HIV prior negative -> plt 183->203->199-->125->130 --> abx # Pna --> antibiotics per id # Sepsis --> antibiotics per Infectious Disease. --> ABX vanc/zosyn # Dehydration. --> PT and Dietary evaluation. # Hypertension --> Blood pressure control. # Dvt ppx scds The timing of this note does not necessarily reflect the time of the patient was seen Greatly appreciate consultation! Subjective Constitutional: Denies: no symptoms, chills, fever, malaise, weakness, other HEENT: Denies: no symptoms, eye pain, blurred vision, tearing, double vision, ear pain, ear discharge, nose pain, nose congestion, throat pain, throat swelling, mouth pain, mouth swelling, other Cardiovascular: Denies: no symptoms, chest pain, edema, irregular heart rate, lightheadedness, palpitations, syncope, other Respiratory: Denies: no symptoms, cough, shortness of breath, SOB with excertion, SOB at rest, sputum, wheezing, other Genitourinary: Denies: no symptoms, burning, discharge, frequency, flank pain, hematuria, incontinence, pain, urgency, other Neurologic/Psychiatric: Denies: no symptoms, anxiety, depressed, emotional problems, headache, numbness, paresthesia, pre-existing deficit, seizure, tingling, tremors, weakness, other Endocrine: Denies: no symptoms, excessive sweating, flushing, intolerance to cold, intolerance to heat, increased hunger, increased thirst, increased urine, unexplained weight gain, unexplained weight loss, other Hematologic/Lymphatic: Denies: no symptoms, anemia, easy bleeding, easy bruising, adenopathy, other Allergies: Coded Allergies: No Known Allergies (Unverified , 11/22/15) Subjective 09/18 labs are noted, no bleeding, seen by pulm, cbc is pending 09/19 gtube is running, meds reviewed, labs noted 09/20 labs reviewed, meds noted, cbc is pending, vanc was added recently Objective Objective Current Medications Medications (Trade) Dose Ordered Sig/Alex Route PRN Reason Start Time Stop Time Status Last Admin Dose Admin Acetaminophen (Tylenol) 500 mg Q4H PRN ORAL Mild Pain (Pain Scale 1-3) 09/15/20 23:15 10/15/20 23:14 09/16/20 01:28 Acetaminophen (Tylenol) 500 mg Q4H PRN ORAL Temp >100.5 09/15/20 23:15 10/15/20 23:14 Ascorbic Acid (Vitamin C) 250 mg TWICE A DAY ORAL 09/19/20 18:00 10/19/20 17:59 Clonidine HCl (Catapres Tab) 0.1 mg Q2H PRN GT For High Blood Pressure 09/17/20 17:00 12/16/20 16:59 Hydralazine HCl (Apresoline) 10 mg Q2H PRN IV For High Blood Pressure 09/17/20 17:00 12/16/20 16:59 Multivitamins (Multivitamins) 1 tab DAILY ORAL 09/20/20 09:00 10/20/20 08:59 Pantoprazole (Protonix) 40 mg EVERY 12 HOURS IVP 09/17/20 14:15 10/17/20 14:14 09/19/20 21:38 Piperacillin Sod/ Tazobactam Sod 3.375 gm/Sodium Chloride 110 ml @ 27.5 mls/hr EVERY 8 HOURS IVPB 09/16/20 14:00 09/21/20 21:59 09/20/20 05:14 Vancomycin HCl (Vanco pharmacy to dose) 1 ea DAILY PRN MISC Per rx protocol 09/20/20 06:30 10/20/20 06:29 Vancomycin HCl 1 gm/Sodium Chloride 275 ml @ 183.708 mls/hr Q24H IVPB 09/20/20 08:00 09/25/20 07:59 Zinc Sulfate (Zinc Sulfate) 220 mg DAILY ORAL 09/20/20 09:00 09/30/20 08:59 Last 24 Hour Vital Signs Date Time Temp Pulse Resp B/P (MAP) Pulse Ox O2 Delivery O2 Flow Rate FiO2 09/20/20 04:21 66 09/20/20 04:00 97.9 73 22 139/78 (98) 100 09/20/20 04:00 30 09/20/20 04:00 Mechanical Ventilator 09/20/20 03:08 67 19 30 09/20/20 00:00 99.0 64 19 124/68 (86) 98 09/20/20 00:00 Mechanical Ventilator 09/20/20 00:00 67 09/19/20 23:16 63 19 30 09/19/20 20:00 62 09/19/20 20:00 30 09/19/20 20:00 99.5 66 22 118/60 (79) 99 09/19/20 20:00 Mechanical Ventilator 09/19/20 19:47 62 18 30 09/19/20 16:00 30 09/19/20 16:00 98.8 66 18 124/66 (85) 99 09/19/20 16:00 Mechanical Ventilator 09/19/20 16:00 75 09/19/20 15:28 72 22 30 09/19/20 12:00 Mechanical Ventilator 09/19/20 12:00 99.0 62 16 143/68 (93) 100 09/19/20 12:00 30 09/19/20 12:00 64 09/19/20 11:48 64 09/19/20 11:30 65 14 30 09/19/20 09:27 82 18 30 09/19/20 08:40 Mechanical Ventilator 09/19/20 08:00 30 09/19/20 08:00 98.2 55 17 119/52 (74) 96 09/19/20 07:47 58 09/19/20 04:00 99.1 64 20 129/64 (85) 100 09/19/20 04:00 Mechanical Ventilator 09/19/20 04:00 30 09/19/20 03:41 64 09/19/20 03:30 80 18 30 09/19/20 00:00 Mechanical Ventilator 09/19/20 00:00 98.6 72 20 131/79 (96) 100 09/19/20 00:00 61 09/18/20 22:58 62 14 30 09/18/20 20:00 Mechanical Ventilator 09/18/20 20:00 99.3 87 21 110/54 (72) 100 09/18/20 20:00 71 09/18/20 20:00 30 09/18/20 19:16 64 15 30 09/18/20 16:00 63 09/18/20 16:00 30 09/18/20 16:00 Mechanical Ventilator 09/18/20 16:00 98.2 74 20 126/73 (90) 100 09/18/20 15:01 61 13 30 09/18/20 12:00 99.0 57 20 127/64 (85) 96 09/18/20 12:00 71 09/18/20 12:00 Mechanical Ventilator 09/18/20 12:00 30 09/18/20 11:02 83 25 30 09/18/20 08:00 64 09/18/20 08:00 Mechanical Ventilator 09/18/20 08:00 98.2 56 20 143/89 (107) 100 09/18/20 08:00 30 09/18/20 07:02 53 14 30 Intake and Output 09/19/20 09/20/20 19:00 07:00 Intake Total 760 ml 800 ml Output Total 1050 ml Balance -290 ml 800 ml Free Water 210 ml 250 ml Tube Feeding 550 ml 550 ml Output Urine Total 1050 ml # Bowel Movements 1 Labs Test 09/17/20 11:38 09/17/20 16:43 09/17/20 22:23 09/18/20 05:48 POC Whole Blood Glucose 81 MG/DL (74-106) 83 MG/DL (74-106) 86 MG/DL (74-106) 98 MG/DL (74-106) Test 09/18/20 10:50 09/19/20 13:48 White Blood Count 11.6 K/UL (4.8-10.8) Red Blood Count 2.94 M/UL (4.20-5.40) Hemoglobin 9.0 G/DL (12.0-16.0) Hematocrit 26.9 % (37.0-47.0) Mean Corpuscular Volume 91 FL (80-99) Mean Corpuscular Hemoglobin 30.6 PG (27.0-31.0) Mean Corpuscular Hemoglobin Concent 33.6 G/DL (32.0-36.0) Red Cell Distribution Width 16.0 % (11.6-14.8) Platelet Count 130 K/UL (150-450) Mean Platelet Volume 8.5 FL (6.5-10.1) Neutrophils (%) (Auto) % (45.0-75.0) Lymphocytes (%) (Auto) % (20.0-45.0) Monocytes (%) (Auto) % (1.0-10.0) Eosinophils (%) (Auto) % (0.0-3.0) Basophils (%) (Auto) % (0.0-2.0) Differential Total Cells Counted 100 Neutrophils % (Manual) 33 % (45-75) Lymphocytes % (Manual) 17 % (20-45) Monocytes % (Manual) 6 % (1-10) Eosinophils % (Manual) 44 % (0-3) Basophils % (Manual) 0 % (0-2) Band Neutrophils 0 % (0-8) Platelet Estimate Decreased Platelet Morphology Normal Polychromasia 1+ Anisocytosis 1+ POC Whole Blood Glucose 93 MG/DL (74-106) Height (Feet): 5 Height (Inches): 4.00 Weight (Pounds): 146 Objective PHYSICAL EXAMINATION: GENERAL: Slightly confused in bed, oriented x1, CARDIOVASCULAR: No murmur. LUNGS: Poor air exchange.+vent/trach ABDOMEN: Bowel sounds distant.++peg EXTREMITIES: No cyanosis, clubbing, or edema NEUROLOGIC: Neck, weakness as well leaning forward.bedbound++ Alan Cazares MD Sep 20, 2020 06:36
--- NOTE | 2020-09-20 07:10 | NUR ---
NURSE NOTES: Received patient report from CRISTY Zabala
--- NOTE | 2020-09-20 07:10 | NUR ---
NURSE HAND-OFF REPORT: Important Events on Shift:none Patient Status: stable Diet: Glucerna 1.2 Pending Orders: Pending Results/Labs: Pending MD notification: Latest Vital Signs: Temperature 97.9 , Pulse 66 , B/P 139 /78 , Respiratory Rate 22 , O2 SAT 100 , Mechanical Ventilator, O2 Flow Rate 50.0 . Vital Sign Comment: EKG Rhythm: Sinus Rhythm Rhythm change?: N MD Notified?: - MD Response: Latest [place] Fall Score: 50 Fall Risk: High Risk Safety Measures: Call light Within Reach, Bed Alarm Zone 3, Side Rails Side Rails x2, Bed position Low and Locked. Fall Precautions: Yellow Socks Yellow Gown Door Sign Report given to Radames Moreno- aware to f/u on any abnormal am labs.
[2020-09-20 08:00] VITALS: BP 131/70
[2020-09-20] MEDS: Vancomycin 1 GM in NS 275 ML IVPB SCH (08:53)
[2020-09-20] MEDS: Zinc Sulfate 220mg ORAL SCH (08:53)
[2020-09-20] MEDS: Ascorbic Acid 500mg tab ORAL SCH ×2 (08:54→18:42)
[2020-09-20] MEDS: Pantoprazole Inj IVP SCH ×2 (08:54→20:11)
--- NOTE | 2020-09-20 09:00 | NUR ---
NURSE NOTES: Patient is on bed. No signs of grimacing or distress noted. Patient is on trache-vent P7, AC 12, TV 400, FiO2 30%, PEEP 5, tolerating well. Patient has a GT feeding, patent, intact, Glucerna 1.2 @ 50 cc/hr. Patient has a R H patent, intact, saline locked, and a R AC 20 g patent, intact, saline locked. HOB is elavated, bed is on lowest position, locked, side rails up. Patient will continue to be monitored.
[2020-09-20 09:04] LABS: HEMATOCRIT 29.4 % (37.0-47.0); HEMOGLOBIN 10.1 G/DL (12.0-16.0); MEAN CORPUSCULAR VOLUME 92 FL (80-99); PLATELET COUNT 142 K/UL (150-450); RED BLOOD COUNT 3.18 M/UL (4.20-5.40); WHITE BLOOD COUNT 16.8 K/UL (4.8-10.8)
--- NOTE | 2020-09-20 09:21 | Infectious Diseases Prog Note ---
Assessment/Plan Assessment/Plan IMPRESSION: VRE sepsis ( Amp sensitive) Gram positive bacteremia Serratia, Pseudomonas & Stenotrophomonas pneumonia, E coli UTI, Ventilator-dependent respiratory failure, Quadriplegia, Stage IV sacral ulcer, COPD, Iron deficiency anemia, Hypertension, history of atrial fibrillation. Negative COVI19 tests RECOMMENDATION: We will f/u sputum cultures. Change Zosyn to Meropenem & Bactrim Continue IV Vancomycin Subjective ROS Limited/Unobtainable: Yes Allergies: Coded Allergies: No Known Allergies (Unverified , 11/22/15) Objective Last 24 Hour Vital Signs Date Time Temp Pulse Resp B/P (MAP) Pulse Ox O2 Delivery O2 Flow Rate FiO2 09/20/20 06:56 69 21 30 09/20/20 04:21 66 09/20/20 04:00 97.9 73 22 139/78 (98) 100 09/20/20 04:00 30 09/20/20 04:00 Mechanical Ventilator 09/20/20 03:08 67 19 30 09/20/20 00:00 99.0 64 19 124/68 (86) 98 09/20/20 00:00 Mechanical Ventilator 09/20/20 00:00 67 09/19/20 23:16 63 19 30 09/19/20 20:00 62 09/19/20 20:00 30 09/19/20 20:00 99.5 66 22 118/60 (79) 99 09/19/20 20:00 Mechanical Ventilator 09/19/20 19:47 62 18 30 09/19/20 16:00 30 09/19/20 16:00 98.8 66 18 124/66 (85) 99 09/19/20 16:00 Mechanical Ventilator 09/19/20 16:00 75 09/19/20 15:28 72 22 30 09/19/20 12:00 Mechanical Ventilator 09/19/20 12:00 99.0 62 16 143/68 (93) 100 09/19/20 12:00 30 09/19/20 12:00 64 09/19/20 11:48 64 09/19/20 11:30 65 14 30 09/19/20 09:27 82 18 30 Height (Feet): 5 Height (Inches): 4.00 Weight (Pounds): 146 HEENT: status post trach Respiratory/Chest: decreased breath sounds, other - on ventilator Cardiovascular: normal rate Abdomen: soft, non tender, other - GT feeding Extremities: no edema, other - SCD of legs Neurologic/Psychiatric: aphasia, other - opens eyes Microbiology Date/Time Source Procedure Growth Status 09/18/20 13:10 Blood Blood Culture - Preliminary NO GROWTH AFTER 24 HOURS Resulted 09/18/20 13:05 Blood Blood Culture - Preliminary NO GROWTH AFTER 24 HOURS Resulted Laboratory Tests Test 09/19/20 13:48 09/20/20 08:23 POC Whole Blood Glucose 93 MG/DL (74-106) White Blood Count 16.8 K/UL (4.8-10.8) H Red Blood Count 3.18 M/UL (4.20-5.40) L Hemoglobin 10.1 G/DL (12.0-16.0) L Hematocrit 29.4 % (37.0-47.0) L Mean Corpuscular Volume 92 FL (80-99) Mean Corpuscular Hemoglobin 31.6 PG (27.0-31.0) H Mean Corpuscular Hemoglobin Concent 34.2 G/DL (32.0-36.0) Red Cell Distribution Width 16.0 % (11.6-14.8) H Platelet Count 142 K/UL (150-450) L Mean Platelet Volume 8.9 FL (6.5-10.1) Neutrophils (%) (Auto) % (45.0-75.0) Lymphocytes (%) (Auto) % (20.0-45.0) Monocytes (%) (Auto) % (1.0-10.0) Eosinophils (%) (Auto) % (0.0-3.0) Basophils (%) (Auto) % (0.0-2.0) Neutrophils % (Manual) Pending Lymphocytes % (Manual) Pending Platelet Estimate Pending Platelet Morphology Pending Current Medications Medications (Trade) Dose Ordered Sig/Alex Route PRN Reason Start Time Stop Time Status Last Admin Dose Admin Acetaminophen (Tylenol) 500 mg Q4H PRN ORAL Mild Pain (Pain Scale 1-3) 09/15/20 23:15 10/15/20 23:14 09/16/20 01:28 Acetaminophen (Tylenol) 500 mg Q4H PRN ORAL Temp >100.5 09/15/20 23:15 10/15/20 23:14 Ascorbic Acid (Vitamin C) 250 mg TWICE A DAY ORAL 09/19/20 18:00 10/19/20 17:59 09/20/20 08:54 Clonidine HCl (Catapres Tab) 0.1 mg Q2H PRN GT For High Blood Pressure 09/17/20 17:00 12/16/20 16:59 Hydralazine HCl (Apresoline) 10 mg Q2H PRN IV For High Blood Pressure 09/17/20 17:00 12/16/20 16:59 Multivitamins (Multivitamins) 1 tab DAILY ORAL 09/20/20 09:00 10/20/20 08:59 09/20/20 08:54 Pantoprazole (Protonix) 40 mg EVERY 12 HOURS IVP 09/17/20 14:15 10/17/20 14:14 09/20/20 08:54 Piperacillin Sod/ Tazobactam Sod 3.375 gm/Sodium Chloride 110 ml @ 27.5 mls/hr EVERY 8 HOURS IVPB 09/16/20 14:00 09/21/20 21:59 09/20/20 05:14 Vancomycin HCl (Vanco pharmacy to dose) 1 ea DAILY PRN MISC Per rx protocol 09/20/20 06:30 10/20/20 06:29 Vancomycin HCl 1 gm/Sodium Chloride 275 ml @ 183.708 mls/hr Q24H IVPB 09/20/20 08:00 09/25/20 07:59 09/20/20 08:53 Zinc Sulfate (Zinc Sulfate) 220 mg DAILY ORAL 09/20/20 09:00 09/30/20 08:59 09/20/20 08:53 Mahesh Nicole MD Sep 20, 2020 09:21
--- NOTE | 2020-09-20 11:12 | Cardiac Electrophysiology PN ---
Assessment/Plan Assessment/Plan 1. Hypertension, currently blood pressure stable. On p.r.n. Hydralazine and clonidine 2. Ventilator-dependent respiratory failure status post tracheostomy on 30% FiO2, in sinus rhythm. COVID was negative. 3. Severe anemia, hemoglobin 7.5. S/P blood transfusion. Etiology is not clear at this time, but creatinine is within normal range. 4. Elevated BNP of more than 4000. Echo EF 65% 5. Dysphagia, status post PEG placement. Subjective Subjective Off covid isolation. No events On the Vent with 30% Fio2 off restraints. Contracted Objective Last 24 Hour Vital Signs Date Time Temp Pulse Resp B/P (MAP) Pulse Ox O2 Delivery O2 Flow Rate FiO2 09/20/20 08:00 99.9 67 20 131/70 (90) 95 09/20/20 08:00 Mechanical Ventilator 09/20/20 08:00 30 09/20/20 07:46 68 09/20/20 06:56 69 21 30 09/20/20 04:21 66 09/20/20 04:00 97.9 73 22 139/78 (98) 100 09/20/20 04:00 30 09/20/20 04:00 Mechanical Ventilator 09/20/20 03:08 67 19 30 09/20/20 00:00 99.0 64 19 124/68 (86) 98 09/20/20 00:00 Mechanical Ventilator 09/20/20 00:00 67 09/19/20 23:16 63 19 30 09/19/20 20:00 62 09/19/20 20:00 30 09/19/20 20:00 99.5 66 22 118/60 (79) 99 09/19/20 20:00 Mechanical Ventilator 09/19/20 19:47 62 18 30 09/19/20 16:00 30 09/19/20 16:00 98.8 66 18 124/66 (85) 99 09/19/20 16:00 Mechanical Ventilator 09/19/20 16:00 75 09/19/20 15:28 72 22 30 09/19/20 12:00 Mechanical Ventilator 09/19/20 12:00 99.0 62 16 143/68 (93) 100 09/19/20 12:00 30 09/19/20 12:00 64 09/19/20 11:48 64 09/19/20 11:30 65 14 30 Intake and Output 12/21/20 12/22/20 19:00 07:00 Intake Total 760 ml 850 ml Output Total 1050 ml Balance -290 ml 850 ml Free Water 210 ml 250 ml Tube Feeding 550 ml 600 ml Output Urine Total 1050 ml # Bowel Movements 1 Laboratory Tests Test 09/19/20 13:48 09/20/20 08:23 POC Whole Blood Glucose 93 MG/DL (74-106) White Blood Count 16.8 K/UL (4.8-10.8) H Red Blood Count 3.18 M/UL (4.20-5.40) L Hemoglobin 10.1 G/DL (12.0-16.0) L Hematocrit 29.4 % (37.0-47.0) L Mean Corpuscular Volume 92 FL (80-99) Mean Corpuscular Hemoglobin 31.6 PG (27.0-31.0) H Mean Corpuscular Hemoglobin Concent 34.2 G/DL (32.0-36.0) Red Cell Distribution Width 16.0 % (11.6-14.8) H Platelet Count 142 K/UL (150-450) L Mean Platelet Volume 8.9 FL (6.5-10.1) Neutrophils (%) (Auto) % (45.0-75.0) Lymphocytes (%) (Auto) % (20.0-45.0) Monocytes (%) (Auto) % (1.0-10.0) Eosinophils (%) (Auto) % (0.0-3.0) Basophils (%) (Auto) % (0.0-2.0) Differential Total Cells Counted 100 Neutrophils % (Manual) 31 % (45-75) L Lymphocytes % (Manual) 14 % (20-45) L Monocytes % (Manual) 8 % (1-10) Eosinophils % (Manual) 47 % (0-3) H Basophils % (Manual) 0 % (0-2) Band Neutrophils 0 % (0-8) Platelet Estimate Decreased L Platelet Morphology Normal Anisocytosis 1+ Microbiology Date/Time Source Procedure Growth Status 09/18/20 13:10 Blood Blood Culture - Preliminary NO GROWTH AFTER 24 HOURS Resulted 09/18/20 13:05 Blood Blood Culture - Preliminary NO GROWTH AFTER 24 HOURS Resulted Objective HEAD AND NECK: No JVD.S/P Trach LUNGS: Coarse rhonchi. CARDIOVASCULAR: Regular S1 and S2 with no gallop. ABDOMEN: Status post PEG. EXTREMITIES: 1+ pitting edema. Flex Bess MD Sep 20, 2020 11:12
[2020-09-20] MEDS: Meropenem 1 GM in NS 55 ML IVPB SCH ×2 (11:25→21:00)
[2020-09-20] MEDS: Bactrim Susp 20ml GT SCH ×2 (11:57→20:11)
[2020-09-20 12:00] VITALS: BP 142/75
--- NOTE | 2020-09-20 12:19 | General Progress Note ---
Subjective ROS Limited/Unobtainable: No Allergies: Coded Allergies: No Known Allergies (Unverified , 11/22/15) Objective Last 24 Hour Vital Signs Date Time Temp Pulse Resp B/P (MAP) Pulse Ox O2 Delivery O2 Flow Rate FiO2 09/20/20 08:00 99.9 67 20 131/70 (90) 95 09/20/20 08:00 Mechanical Ventilator 09/20/20 08:00 30 09/20/20 07:46 68 09/20/20 06:56 69 21 30 09/20/20 04:21 66 09/20/20 04:00 97.9 73 22 139/78 (98) 100 09/20/20 04:00 30 09/20/20 04:00 Mechanical Ventilator 09/20/20 03:08 67 19 30 09/20/20 00:00 99.0 64 19 124/68 (86) 98 09/20/20 00:00 Mechanical Ventilator 09/20/20 00:00 67 09/19/20 23:16 63 19 30 09/19/20 20:00 62 09/19/20 20:00 30 09/19/20 20:00 99.5 66 22 118/60 (79) 99 09/19/20 20:00 Mechanical Ventilator 09/19/20 19:47 62 18 30 09/19/20 16:00 30 09/19/20 16:00 98.8 66 18 124/66 (85) 99 09/19/20 16:00 Mechanical Ventilator 09/19/20 16:00 75 09/19/20 15:28 72 22 30 Intake and Output 09/19/20 09/20/20 19:00 07:00 Intake Total 760 ml 850 ml Output Total 1050 ml Balance -290 ml 850 ml Free Water 210 ml 250 ml Tube Feeding 550 ml 600 ml Output Urine Total 1050 ml # Bowel Movements 1 Laboratory Tests 09/19/20 13:48: POC Whole Blood Glucose 93 09/20/20 08:23: White Blood Count 16.8H, Red Blood Count 3.18L, Hemoglobin 10.1L, Hematocrit 29.4L, Mean Corpuscular Volume 92, Mean Corpuscular Hemoglobin 31.6H, Mean Corpuscular Hemoglobin Concent 34.2, Red Cell Distribution Width 16.0H, Platelet Count 142L, Mean Platelet Volume 8.9, Neutrophils (%) (Auto) , Lymphocytes (%) (Auto) , Monocytes (%) (Auto) , Eosinophils (%) (Auto) , Basophils (%) (Auto) , Differential Total Cells Counted 100, Neutrophils % (Manual) 31L, Lymphocytes % (Manual) 14L, Monocytes % (Manual) 8, Eosinophils % (Manual) 47H, Basophils % (Manual) 0, Band Neutrophils 0, Platelet Estimate DecreasedL, Platelet Morpholo gy Normal, Anisocytosis 1+ Height (Feet): 5 Height (Inches): 4.00 Weight (Pounds): 146 General Appearance: no apparent distress EENT: normal ENT inspection Neck: supple Cardiovascular: normal rate Respiratory/Chest: decreased breath sounds Abdomen: normal bowel sounds, non tender, soft Extremities: non-tender Assessment/Plan Status: progressing Assessment/Plan: Assessment - GT site drainage/discharge - resolved - OBS - Resp failure, s/p Trach - s/p PEG for dysphagia, - Parkinsons - Schizophrenia - h/o decub ulcers - Severe anemia Recommendations - continue feeds - GT care - Elevate HOB - monitor labs - EGD with GT change later this week Gilbert Hooks MD Sep 20, 2020 12:19
--- NOTE | 2020-09-20 12:29 | Surgery Progress Note ---
Surgery Progress Note Subjective Additional Comments ill appearing on support no n/v labs reviewed exam stable dressings going well Objective Last 24 Hour Vital Signs Date Time Temp Pulse Resp B/P (MAP) Pulse Ox O2 Delivery O2 Flow Rate FiO2 09/20/20 08:00 99.9 67 20 131/70 (90) 95 09/20/20 08:00 Mechanical Ventilator 09/20/20 08:00 30 09/20/20 07:46 68 09/20/20 06:56 69 21 30 09/20/20 04:21 66 09/20/20 04:00 97.9 73 22 139/78 (98) 100 09/20/20 04:00 30 09/20/20 04:00 Mechanical Ventilator 09/20/20 03:08 67 19 30 09/20/20 00:00 99.0 64 19 124/68 (86) 98 09/20/20 00:00 Mechanical Ventilator 09/20/20 00:00 67 09/19/20 23:16 63 19 30 09/19/20 20:00 62 09/19/20 20:00 30 09/19/20 20:00 99.5 66 22 118/60 (79) 99 09/19/20 20:00 Mechanical Ventilator 09/19/20 19:47 62 18 30 09/19/20 16:00 30 09/19/20 16:00 98.8 66 18 124/66 (85) 99 09/19/20 16:00 Mechanical Ventilator 09/19/20 16:00 75 09/19/20 15:28 72 22 30 I&O Intake and Output 09/19/20 09/20/20 19:00 07:00 Intake Total 760 ml 850 ml Output Total 1050 ml Balance -290 ml 850 ml Free Water 210 ml 250 ml Tube Feeding 550 ml 600 ml Output Urine Total 1050 ml # Bowel Movements 1 Dressing: saturated Cardiovascular: RSR Respiratory: decreased breath sounds Abdomen: soft, non-tender, present bowel sounds Extremities: edema, no cyanosis Laboratory Tests Test 09/19/20 13:48 09/20/20 08:23 POC Whole Blood Glucose 93 MG/DL (74-106) White Blood Count 16.8 K/UL (4.8-10.8) H Red Blood Count 3.18 M/UL (4.20-5.40) L Hemoglobin 10.1 G/DL (12.0-16.0) L Hematocrit 29.4 % (37.0-47.0) L Mean Corpuscular Volume 92 FL (80-99) Mean Corpuscular Hemoglobin 31.6 PG (27.0-31.0) H Mean Corpuscular Hemoglobin Concent 34.2 G/DL (32.0-36.0) Red Cell Distribution Width 16.0 % (11.6-14.8) H Platelet Count 142 K/UL (150-450) L Mean Platelet Volume 8.9 FL (6.5-10.1) Neutrophils (%) (Auto) % (45.0-75.0) Lymphocytes (%) (Auto) % (20.0-45.0) Monocytes (%) (Auto) % (1.0-10.0) Eosinophils (%) (Auto) % (0.0-3.0) Basophils (%) (Auto) % (0.0-2.0) Differential Total Cells Counted 100 Neutrophils % (Manual) 31 % (45-75) L Lymphocytes % (Manual) 14 % (20-45) L Monocytes % (Manual) 8 % (1-10) Eosinophils % (Manual) 47 % (0-3) H Basophils % (Manual) 0 % (0-2) Band Neutrophils 0 % (0-8) Platelet Estimate Decreased L Platelet Morphology Normal Anisocytosis 1+ Plan Problems: (1) Pneumonia (2) Functional quadriplegia (3) Person under investigation for COVID-19 (4) Chronic respiratory failure (5) Dehydration (6) Hypernatremia (7) Hypothyroidism (8) Pyelonephritis (9) Protein calorie malnutrition Assessment & Plan: DAILY ESTIMATED NEEDS: Needs based on Wound, critical care 57.5kg abw 25-30 kcals/kg 0987-2337 total kcals 1.25-2 g protein/kg 72-115 g total protein 25-30 mL/kg 9021-5641 total fluid mLs NUTRITION DIAGNOSIS: * Increased kcal/prot needs R/T wound healing as evidenced by pt w/ h/o stage 4 sacral wound, eval is pending. * Swallowing difficulty R/T dysphagia, respiratory status as evidenced by pt is Trach and PEG dep. ENTERAL NUTRITION RECOMMENDATIONS: Glucerna 1.2 @ 55ml/hr x 24 hrs to provide 1320ml, 1584 kcal, 79g pro, 1063ml free H2O * As medically able, start Glucerna 1.2 @35ml/hr for 6 hrs, advance as tolerated q4-6 to goal. * Add TYRESE in 4oz water BID via PEG for wound healing * HOB over 30 degrees/ water flush per MD ADDITIONAL RECOMMENDATIONS: * Calibrated bedscale wt for accurate CBW * Wound healing: TYRESE BID, Vit C 250mg BID F/up w/ WC eval * Monitor lytes, replete as needed * Monitor BGs w/ TF-> bed side BG checks + NISS (10) Failure to thrive (child) (11) Sacral decubitus ulcer Assessment & Plan: Pt presented on admission with Tracheostomy, GT, and multiple Pressure injuries. No erythema or evidence of skin breakdown under tra cheal collar. dry dark brown skin plaque noted at R lateral chest to R flank. Full thickness stage 4 Sacral Pressure Injury with undermined borders(L)2cm x (W)2cm x (D)2cm, undermining clockwise 11-3 by 2.3cm @3o'clock.Ability to accurately assess base of wound is not fully appreciated secondary to shape of wound. (+) Epibole along edges of wound. Silver Nitrate sticks application applied to Borders. Bone is palpable when probed.Small amt brown exudate noted. No odor noted. [place] Atrophic scar periwound. Resolving Pressure Injury R Ischium. [place] epithelial noted at base of wound. Intact serous Blister noted to monica/upper L thigh. No erythema or changes in skin temp at affected site. Reabsorbing DTPI L Hallux. Base of Pressure injury is dark brown,dry without erythema,induration or fluctuance. L Heel is boggy with non-blanchable erythema. R Heel is boggy but blanchable. Tx.Plan: Cleanse Sacral wound with Saline. Loosely pack with Therahoney impregnated Kerlix.Apply Moisture Barrier Paste periwound. Cover with Optifoam drsg every 3 days and prn. Apply Moisture Barrier Paste to R Ischium. Cover with Optifoam drsg. Change every 3 days and prn. Apply Phytoplex Skin Nourishing lotion to Lateral R chest /R Flank Daily. Apply Cavilon Skin Barrier to R and L Heel. Cover each heel with Optifoam drsg.Change every 7 days and prn. Reposition at least every 2hours or as tolerated. Off-load heels with pillow. 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
[2020-09-20] MEDS ORDERED: NS 275ml ONE (14:16)
--- NOTE | 2020-09-20 15:15 | Pulmonology Progress Note ---
Subjective ROS Limited/Unobtainable: No Interval Events: None new Constitutional: Denies: fever HEENT: Repors: no symptoms Respiratory: Reports: no symptoms Cardiovascular: Reports: no symptoms Gastrointestinal/Abdominal: Reports: no symptoms Genitourinary: Reports: no symptoms Allergies: Coded Allergies: No Known Allergies (Unverified , 11/22/15) Objective Last 24 Hour Vital Signs Date Time Temp Pulse Resp B/P (MAP) Pulse Ox O2 Delivery O2 Flow Rate FiO2 09/20/20 12:00 30 09/20/20 12:00 Mechanical Ventilator 09/20/20 12:00 99.1 68 20 142/75 (97) 100 09/20/20 11:38 71 09/20/20 11:16 66 19 30 09/20/20 08:00 99.9 67 20 131/70 (90) 95 09/20/20 08:00 Mechanical Ventilator 09/20/20 08:00 30 09/20/20 07:46 68 09/20/20 06:56 69 21 30 09/20/20 04:21 66 09/20/20 04:00 97.9 73 22 139/78 (98) 100 09/20/20 04:00 30 09/20/20 04:00 Mechanical Ventilator 09/20/20 03:08 67 19 30 09/20/20 00:00 99.0 64 19 124/68 (86) 98 09/20/20 00:00 Mechanical Ventilator 09/20/20 00:00 67 09/19/20 23:16 63 19 30 09/19/20 20:00 62 09/19/20 20:00 30 09/19/20 20:00 99.5 66 22 118/60 (79) 99 09/19/20 20:00 Mechanical Ventilator 09/19/20 19:47 62 18 30 09/19/20 16:00 30 09/19/20 16:00 98.8 66 18 124/66 (85) 99 09/19/20 16:00 Mechanical Ventilator 09/19/20 16:00 75 09/19/20 15:28 72 22 30 Intake and Output 09/19/20 09/20/20 19:00 07:00 Intake Total 760 ml 850 ml Output Total 1050 ml Balance -290 ml 850 ml Free Water 210 ml 250 ml Tube Feeding 550 ml 600 ml Output Urine Total 1050 ml # Bowel Movements 1 General Appearance: no acute distress HEENT: normocephalic, atraumatic, status post trach Respiratory: chest wall non-tender, lungs clear, other - coarse rhonchi Cardiovascular: normal rate, regular rhythm Abdomen: normal bowel sounds, distended Microbiology Date/Time Source Procedure Growth Status 09/18/20 13:10 Blood Blood Culture - Preliminary NO GROWTH AFTER 24 HOURS Resulted 09/18/20 13:05 Blood Blood Culture - Preliminary NO GROWTH AFTER 24 HOURS Resulted Laboratory Tests 09/20/20 08:23: White Blood Count 16.8H, Red Blood Count 3.18L, Hemoglobin 10.1L, Hematocrit 29.4L, Mean Corpuscular Volume 92, Mean Corpuscular Hemoglobin 31.6H, Mean Corpuscular Hemoglobin Concent 34.2, Red Cell Distribution Width 16.0H, Platelet Count 142L, Mean Platelet Volume 8.9, Neutrophils (%) (Auto) , Lymphocytes (%) (Auto) , Monocytes (%) (Auto) , Eosinophils (%) (Auto) , Basophils (%) (Auto) , Differential Total Cells Counted 100, Neutrophils % (Manual) 31L, Lymphocytes % (Manual) 14L, Monocytes % (Manual) 8, Eosinophils % (Manual) 47H, Basophils % (Manual) 0, Band Neutrophils 0, Platelet Estimate DecreasedL, Platelet Morphology Normal, Anisocytosis 1+ Current Medications Medications (Trade) Dose Ordered Sig/Alex Route PRN Reason Start Time Stop Time Status Last Admin Dose Admin Acetaminophen (Tylenol) 500 mg Q4H PRN ORAL Mild Pain (Pain Scale 1-3) 09/15/20 23:15 10/15/20 23:14 09/16/20 01:28 Acetaminophen (Tylenol) 500 mg Q4H PRN ORAL Temp >100.5 09/15/20 23:15 10/15/20 23:14 Ascorbic Acid (Vitamin C) 250 mg TWICE A DAY ORAL 09/19/20 18:00 10/19/20 17:59 09/20/20 08:54 Clonidine HCl (Catapres Tab) 0.1 mg Q2H PRN GT For High Blood Pressure 09/17/20 17:00 12/16/20 16:59 Hydralazine HCl (Apresoline) 10 mg Q2H PRN IV For High Blood Pressure 09/17/20 17:00 12/16/20 16:59 Meropenem 1 gm/ Sodium Chloride 55 ml @ 110 mls/hr Q8HR IVPB 09/20/20 11:00 09/25/20 10:59 09/20/20 11:25 Multivitamins (Multivitamins) 1 tab DAILY ORAL 09/20/20 09:00 10/20/20 08:59 09/20/20 08:54 Pantoprazole (Protonix) 40 mg EVERY 12 HOURS IVP 09/17/20 14:15 10/17/20 14:14 09/20/20 08:54 Trimethoprim/ Sulfamethoxazole (Bactrim-DS) 10 ml EVERY 12 HOURS GT 09/20/20 11:00 09/27/20 10:59 09/20/20 11:57 Vancomycin HCl (Vanco pharmacy to dose) 1 ea DAILY PRN MISC Per rx protocol 09/20/20 06:30 10/20/20 06:29 Vancomycin HCl 1 gm/Sodium Chloride 275 ml @ 183.708 mls/hr Q24H IVPB 09/20/20 08:00 09/25/20 07:59 09/20/20 08:53 Zinc Sulfate (Zinc Sulfate) 220 mg DAILY ORAL 09/20/20 09:00 09/30/20 08:59 09/20/20 08:53 Assessment/Plan Assessment/Plan 1. Anemia, likely iron deficiency. - On IV iron. - s/p transfusion per Dr. Cazares. - Anemia workup ordered per Dr. Cazares. 2. Interstitial infiltrates, has pneumonia. - Sputum -> Serratia - Antibiotics per ID. - Continue supplemental oxygen; continue ventilator, AC mode.FiO2 30% 3. Sepsis. - Antibiotics per ID. Gm neg rods in sputum CS 4. History of fever. - Currently afebrile. 5. Possible COVID-19 infection. - Swab COVID-19 test negative. - Repeat PCR COVID-19 also negative 6. CHF. - 2D echocardiogram ordered per Cardio. 7. UTI. - On antibiotics. Has ESBL E. Coli 8. Elevated D-dimer. 9. DVT prophylaxis. - Venous duplex ultrasound negative. - on SCD 10. Chronic Respiratory Failure; continue vent; AC mode The history of Jennifer Gao has been reviewed and management options for her have been examined and discussed by Mino Childs. I have personally examined and interviewed the patient. Mino Childs MD Sep 20, 2020 15:15
[2020-09-20 16:00] VITALS: BP 132/69
[2020-09-20] MEDS ORDERED: Tubing IV Secondary IV ONE (16:34)
--- NOTE | 2020-09-20 18:55 | NUR ---
RESPIRATORY NOTE: Received pt on AC 12, 400VT, 30%, PEEP +5. Pt is trach-dependent w/ Cuffed, Portex 7 tube. Pt is obtunded/disoriented. B/S maida. rhonchi, sxn small to moderate amounts of thick/thin/frothy, pale-yellow secretions. Vent plugged into red outlet, ambubag at bedside. Pt in no apparent distress at this time. Will continue plan of care.
--- NOTE | 2020-09-20 19:10 | NUR ---
NURSE HAND-OFF REPORT: Important Events on Shift: patient is stable Patient Status: Diet: Pending Orders: Pending Results/Labs: Pending MD notification: Latest Vital Signs: Temperature 99.1 , Pulse 75 , B/P 132 /69 , Respiratory Rate 20 , O2 SAT 100 , Mechanical Ventilator, O2 Flow Rate 50.0 . Vital Sign Comment: N/A EKG Rhythm: Sinus Rhythm Rhythm change?: N MD Notified?: - MD Response: Latest [place] Fall Score: 50 Fall Risk: High Risk Safety Measures: Call light Within Reach, Bed Alarm Zone 3, Side Rails Side Rails x2, Bed position Low and Locked. Fall Precautions: Yellow Socks Yellow Gown Door Sign Report given to CRISTY Zabala.
--- NOTE | 2020-09-20 19:23 | NUR ---
NURSE NOTES: Received report from Josh RN, pt. in bed awake, with eyes open- non-verbal, no tracking noted, no signs or symptoms of acute cardiac or respiratory distress noted, bed alarm on, side rails up x's3 and safety brakes engaged, call light within easy reach, pt. appears to be tolerating current vent settings well- AC 12, TV 400, Fio2 at 30% and peep 5- no distress noted, G tube running Glucerna 1.2 running at 50cc/hr- no residual noted, pure wick intact and set to suction, pt. appears clean and dry, Rt. hand 22G IV intact and patent, left thumb 22G IV intact and patent- safety measures continued, will continue with plan of care.
[2020-09-20 20:00] VITALS: BP 142/74
--- NOTE | 2020-09-20 21:39 | General Progress Note ---
Subjective ROS Limited/Unobtainable: Yes Allergies: Coded Allergies: No Known Allergies (Unverified , 11/22/15) Objective Last 24 Hour Vital Signs Date Time Temp Pulse Resp B/P (MAP) Pulse Ox O2 Delivery O2 Flow Rate FiO2 09/20/20 20:00 Mechanical Ventilator 09/20/20 20:00 30 09/20/20 20:00 98.4 76 19 142/74 (96) 99 09/20/20 19:50 74 09/20/20 18:52 75 20 30 09/20/20 16:00 99.1 72 20 132/69 (90) 100 09/20/20 16:00 Mechanical Ventilator 09/20/20 16:00 30 09/20/20 15:47 70 09/20/20 15:15 68 20 30 09/20/20 12:00 30 09/20/20 12:00 Mechanical Ventilator 09/20/20 12:00 99.1 68 20 142/75 (97) 100 09/20/20 11:38 71 09/20/20 11:16 66 19 30 09/20/20 08:00 99.9 67 20 131/70 (90) 95 09/20/20 08:00 Mechanical Ventilator 09/20/20 08:00 30 09/20/20 07:46 68 09/20/20 06:56 69 21 30 09/20/20 04:21 66 09/20/20 04:00 97.9 73 22 139/78 (98) 100 09/20/20 04:00 30 09/20/20 04:00 Mechanical Ventilator 09/20/20 03:08 67 19 30 09/20/20 00:00 99.0 64 19 124/68 (86) 98 09/20/20 00:00 Mechanical Ventilator 09/20/20 00:00 67 09/19/20 23:16 63 19 30 Intake and Output 09/19/20 09/20/20 19:00 07:00 Intake Total 760 ml 850 ml Output Total 1050 ml Balance -290 ml 850 ml Free Water 210 ml 250 ml Tube Feeding 550 ml 600 ml Output Urine Total 1050 ml # Bowel Movements 1 Laboratory Tests 09/20/20 08:23: White Blood Count 16.8H, Red Blood Count 3.18L, Hemoglobin 10.1L, Hematocrit 29.4L, Mean Corpuscular Volume 92, Mean Corpuscular Hemoglobin 31.6H, Mean Corpuscular Hemoglobin Concent 34.2, Red Cell Distribution Width 16.0H, Platelet Count 142L, Mean Platelet Volume 8.9, Neutrophils (%) (Auto) , Lymphocytes (%) (Auto) , Monocytes (%) (Auto) , Eosinophils (%) (Auto) , Basophils (%) (Auto) , Differential Total Cells Counted 100, Neutrophils % (Manual) 31L, Lymphocytes % (Manual) 14L, Monocytes % (Manual) 8, Eosinophils % (Manual) 47H, Basophils % (Manual) 0, Band Neutrophils 0, Platelet Estimate DecreasedL, Platelet Morphology Normal, Anisocytosis 1+ Height (Feet): 5 Height (Inches): 4.00 Weight (Pounds): 146 Assessment/Plan Problem List: (1) Hypothyroidism ICD Codes: E03.9 - Hypothyroidism, unspecified SNOMED: 34586319 (2) Chronic respiratory failure ICD Codes: J96.10 - Chronic respiratory failure, unspecified whether with hypoxia or hypercapnia SNOMED: 61786405 (3) Functional quadriplegia ICD Codes: R53.2 - Functional quadriplegia SNOMED: 906739312904748 (4) Protein calorie malnutrition ICD Codes: E46 - Unspecified protein-calorie malnutrition SNOMED: 673066471 (5) Failure to thrive (child) ICD Codes: R62.51 - Failure to thrive (child) SNOMED: 589448645 (6) Sacral decubitus ulcer ICD Codes: L89.159 - Pressure ulcer of sacral region, unspecified stage SNOMED: 294874862 (7) Tracheostomy dependence ICD Codes: Z93.0 - Tracheostomy status SNOMED: 266718601 (8) Sepsis ICD Codes: A41.9 - Sepsis, unspecified organism SNOMED: 80678460 (9) Anemia ICD Codes: D64.9 - Anemia, unspecified SNOMED: 702139261 Qualifiers: Qualified Codes: D64.9 - Anemia, unspecified (10) UTI (urinary tract infection) ICD Codes: N39.0 - Urinary tract infection, site not specified SNOMED: 25368563 Qualifiers: Qualified Codes: N39.0 - Urinary tract infection, site not specified Status: progressing Assessment/Plan: trach and peg sepsis anemia check h/h check lytes afebrile no change Sandeep Oneil MD Sep 20, 2020 21:39
[2020-09-21] VITALS: BP 126/65
--- NOTE | 2020-09-21 00:26 | NUR ---
NURSE NOTES: bed bath given and linens changed, oral care provided, pt. appears to be sating well on current vent settings- skin precautions observed, HOB elevated- aspiration precautions observed- will continue to monitor pt. and with plan of care.
[2020-09-21 04:00] VITALS: BP 142/72
--- NOTE | 2020-09-21 04:00 | NUR ---
NURSE NOTES: cooling measures applied for temp of 99.3- will continue to monitor pt. and with plan of care.
[2020-09-21] MEDS: Meropenem 1 GM in NS 55 ML IVPB SCH ×3 (05:00→21:21)
[2020-09-21] MEDS: Acetaminophen 500mg (ES) tab ORAL PRN ×2 (05:30→17:44)
--- NOTE | 2020-09-21 05:30 | NUR ---
NURSE NOTES: temp appears to be trending up now 99.6-99.7- cooling measures continued and Tylenol administered per eMAR protocol- will continue to monitor pt. and with plan of care.
--- NOTE | 2020-09-21 06:31 | Hematology/Onc Progress Note ---
Assessment/Plan Assessment/Plan LABORATORY DATA: 04/2020 white count 4.7, platelets 140 otherwise CBC is normal. BMP shows chloride 110, creatinine 0.4. Albumin 2.9, otherwise normal. INR 1.0, PTT 27. Urinalysis shows 2+ leukocyte esterase. 09/16 wbc 10, hgb 7.5, plt 126 Imaging 07/01/20 cxr Bilateral patchy airspace opacities. Differential includes multifocal pneumonia and pulmonary edema. 09/16/20 cxr b/l infiltrates noted Assessment and Recommendations # Anemia of iron deficiency, has been persistent for months, now improved, as ferritin better --> Anemia workup has been ordered--> improved --> No evidence of hemolysis is noted, peripheral smear has been reviewed. --> Hgb goal >7. Transfuse prn. --> Iron ivnot needed any further --> Medications have been reviewed --> gb 9-->8.4->>>>7.5-->9.4-->9->10 # Right breast calcifications --> does not have a breast mass on exam --> f/u as outpatient with mammo as needed --> do not do a us breast here # Thrombocytopenia - potential causes multifactorial, evaluate liver and viral etiologies to begin, also could be related to underlying medications, no wimproved --> Hep panel and HIV prior negative -> plt 183->203->199-->125->130 --> abx # Pna --> antibiotics per id # Sepsis --> antibiotics per Infectious Disease. --> ABX vanc/zosyn # Dehydration. --> PT and Dietary evaluation. # Hypertension --> Blood pressure control. # Dvt ppx scds The timing of this note does not necessarily reflect the time of the patient was seen Greatly appreciate consultation! Subjective HEENT: Denies: no symptoms, eye pain, blurred vision, tearing, double vision, ear pain, ear discharge, nose pain, nose congestion, throat pain, throat swelling, mouth pain, mouth swelling, other Cardiovascular: Denies: no symptoms, chest pain, edema, irregular heart rate, lightheadedness, palpitations, syncope, other Gastrointestinal/Abdominal: Denies: no symptoms, abdomen distended, abdominal pain, black stools, tarry stools, blood in stool, constipated, diarrhea, difficulty swallowing, nausea, poor appetite, poor fluid intake, rectal bleeding, vomiting, other Genitourinary: Denies: no symptoms, burning, discharge, frequency, flank pain, hematuria, incontinence, pain, urgency, other Neurologic/Psychiatric: Denies: no symptoms, anxiety, depressed, emotional problems, headache, numbness, paresthesia, pre-existing deficit, seizure, ti ngling, tremors, weakness, other Endocrine: Denies: no symptoms, excessive sweating, flushing, intolerance to cold, intolerance to heat, increased hunger, increased thirst, increased urine, unexplained weight gain, unexplained weight loss, other Hematologic/Lymphatic: Denies: no symptoms, anemia, easy bleeding, easy bruising, adenopathy, other Allergies: Coded Allergies: No Known Allergies (Unverified , 11/22/15) Subjective 09/18 labs are noted, no bleeding, seen by pulm, cbc is pending 09/19 gtube is running, meds reviewed, labs noted 09/20 labs reviewed, meds noted, cbc is pending, vanc was added recently 09/21 labs reviewed, meds noetd, hgb 10, bactrim, yovani, vanc Objective Objective Current Medications Medications (Trade) Dose Ordered Sig/Alex Route PRN Reason Start Time Stop Time Status Last Admin Dose Admin Acetaminophen (Tylenol) 500 mg Q4H PRN ORAL Mild Pain (Pain Scale 1-3) 09/15/20 23:15 10/15/20 23:14 09/16/20 01:28 Acetaminophen (Tylenol) 500 mg Q4H PRN ORAL Temp >100.5 09/15/20 23:15 10/15/20 23:14 09/21/20 05:30 Ascorbic Acid (Vitamin C) 250 mg TWICE A DAY ORAL 09/19/20 18:00 10/19/20 17:59 09/20/20 18:42 Clonidine HCl (Catapres Tab) 0.1 mg Q2H PRN GT For High Blood Pressure 09/17/20 17:00 12/16/20 16:59 Hydralazine HCl (Apresoline) 10 mg Q2H PRN IV For High Blood Pressure 09/17/20 17:00 12/16/20 16:59 Meropenem 1 gm/ Sodium Chloride 55 ml @ 110 mls/hr Q8HR IVPB 09/20/20 11:00 09/25/20 10:59 09/21/20 05:00 Multivitamins (Multivitamins) 1 tab DAILY ORAL 09/20/20 09:00 10/20/20 08:59 09/20/20 08:54 Pantoprazole (Protonix) 40 mg EVERY 12 HOURS IVP 09/17/20 14:15 10/17/20 14:14 09/20/20 20:11 Trimethoprim/ Sulfamethoxazole (Bactrim-DS) 10 ml EVERY 12 HOURS GT 09/20/20 11:00 09/27/20 10:59 09/20/20 20:11 Vancomycin HCl (Vanco pharmacy to dose) 1 ea DAILY PRN MISC Per rx protocol 09/20/20 06:30 10/20/20 06:29 Vancomycin HCl 1 gm/Sodium Chloride 275 ml @ 183.708 mls/hr Q24H IVPB 09/20/20 08:00 09/25/20 07:59 09/20/20 08:53 Zinc Sulfate (Zinc Sulfate) 220 mg DAILY ORAL 09/20/20 09:00 09/30/20 08:59 09/20/20 08:53 Last 24 Hour Vital Signs Date Time Temp Pulse Resp B/P (MAP) Pulse Ox O2 Delivery O2 Flow Rate FiO2 09/21/20 06:00 99.1 09/21/20 04:00 Mechanical Ventilator Mechanical Ventilator 09/21/20 04:00 99.7 73 19 142/72 (95) 100 09/21/20 04:00 30 09/21/20 03:44 77 09/21/20 03:12 75 18 30 09/21/20 00:26 73 09/21/20 00:00 30 09/21/20 00:00 98.2 74 18 126/65 (85) 100 09/21/20 00:00 Mechanical Ventilator Mechanical Ventilator 09/20/20 22:56 77 21 100 Mechanical Ventilator 30 09/20/20 22:55 77 21 30 09/20/20 20:00 Mechanical Ventilator 09/20/20 20:00 30 09/20/20 20:00 98.4 76 19 142/74 (96) 99 09/20/20 19:50 74 09/20/20 18:52 75 20 30 09/20/20 16:00 99.1 72 20 132/69 (90) 100 09/20/20 16:00 Mechanical Ventilator 09/20/20 16:00 30 09/20/20 15:47 70 09/20/20 15:15 68 20 30 09/20/20 12:00 30 09/20/20 12:00 Mechanical Ventilator 09/20/20 12:00 99.1 68 20 142/75 (97) 100 09/20/20 11:38 71 09/20/20 11:16 66 19 30 09/20/20 08:00 99.9 67 20 131/70 (90) 95 09/20/20 08:00 Mechanical Ventilator 09/20/20 08:00 30 09/20/20 07:46 68 09/20/20 06:56 69 21 30 09/20/20 04:21 66 09/20/20 04:00 97.9 73 22 139/78 (98) 100 09/20/20 04:00 30 09/20/20 04:00 Mechanical Ventilator 09/20/20 03:08 67 19 30 09/20/20 00:00 99.0 64 19 124/68 (86) 98 09/20/20 00:00 Mechanical Ventilator 09/20/20 00:00 67 09/19/20 23:16 63 19 30 09/19/20 20:00 62 09/19/20 20:00 30 09/19/20 20:00 99.5 66 22 118/60 (79) 99 09/19/20 20:00 Mechanical Ventilator 09/19/20 19:47 62 18 30 09/19/20 16:00 30 09/19/20 16:00 98.8 66 18 124/66 (85) 99 09/19/20 16:00 Mechanical Ventilator 09/19/20 16:00 75 09/19/20 15:28 72 22 30 09/19/20 12:00 Mechanical Ventilator 09/19/20 12:00 99.0 62 16 143/68 (93) 100 09/19/20 12:00 30 09/19/20 12:00 64 09/19/20 11:48 64 09/19/20 11:30 65 14 30 09/19/20 09:27 82 18 30 09/19/20 08:40 Mechanical Ventilator 09/19/20 08:00 30 09/19/20 08:00 98.2 55 17 119/52 (74) 96 12/21/20 07:47 58 Intake and Output 09/20/20 09/21/20 19:00 07:00 Intake Total 1133.708 ml 770 ml Output Total 325 ml Balance 1133.708 ml 445 ml Free Water 240 ml 100 ml IV Total 293.708 ml 220 ml Tube Feeding 600 ml 450 ml Output Urine Total 325 ml # Bowel Movements 1 Labs Test 09/18/20 10:50 09/19/20 13:48 09/20/20 08:23 White Blood Count 11.6 K/UL (4.8-10.8) 16.8 K/UL (4.8-10.8) Red Blood Count 2.94 M/UL (4.20-5.40) 3.18 M/UL (4.20-5.40) Hemoglobin 9.0 G/DL (12.0-16.0) 10.1 G/DL (12.0-16.0) Hematocrit 26.9 % (37.0-47.0) 29.4 % (37.0-47.0) Mean Corpuscular Volume 91 FL (80-99) 92 FL (80-99) Mean Corpuscular Hemoglobin 30.6 PG (27.0-31.0) 31.6 PG (27.0-31.0) Mean Corpuscular Hemoglobin Concent 33.6 G/DL (32.0-36.0) 34.2 G/DL (32.0-36.0) Red Cell Distribution Width 16.0 % (11.6-14.8) 16.0 % (11.6-14.8) Platelet Count 130 K/UL (150-450) 142 K/UL (150-450) Mean Platelet Volume 8.5 FL (6.5-10.1) 8.9 FL (6.5-10.1) Neutrophils (%) (Auto) % (45.0-75.0) % (45.0-75.0) Lymphocytes (%) (Auto) % (20.0-45.0) % (20.0-45.0) Monocytes (%) (Auto) % (1.0-10.0) % (1.0-10.0) Eosinophils (%) (Auto) % (0.0-3.0) % (0.0-3.0) Basophils (%) (Auto) % (0.0-2.0) % (0.0-2.0) Differential Total Cells Counted 100 100 Neutrophils % (Manual) 33 % (45-75) 31 % (45-75) Lymphocytes % (Manual) 17 % (20-45) 14 % (20-45) Monocytes % (Manual) 6 % (1-10) 8 % (1-10) Eosinophils % (Manual) 44 % (0-3) 47 % (0-3) Basophils % (Manual) 0 % (0-2) 0 % (0-2) Band Neutrophils 0 % (0-8) 0 % (0-8) Platelet Estimate Decreased Decreased Platelet Morphology Normal Normal Polychromasia 1+ Anisocytosis 1+ 1+ POC Whole Blood Glucose 93 MG/DL (74-106) Height (Feet): 5 Height (Inches): 4.00 Weight (Pounds): 146 Objective PHYSICAL EXAMINATION: GENERAL: Slightly confused in bed, oriented x1, CARDIOVASCULAR: No murmur. LUNGS: Poor air exchange.+vent/trach ABDOMEN: Bowel sounds distant.++peg EXTREMITIES: No cyanosis, clubbing, or edema NEUROLOGIC: Neck, weakness as well leaning forward.bedbound++ Alan Cazares MD Sep 21, 2020 06:31
--- NOTE | 2020-09-21 06:46 | General Progress Note ---
Subjective ROS Limited/Unobtainable: No Allergies: Coded Allergies: No Known Allergies (Unverified , 11/22/15) Objective Last 24 Hour Vital Signs Date Time Temp Pulse Resp B/P (MAP) Pulse Ox O2 Delivery O2 Flow Rate FiO2 09/21/20 06:00 99.1 09/21/20 04:00 Mechanical Ventilator Mechanical Ventilator 09/21/20 04:00 99.7 73 19 142/72 (95) 100 09/21/20 04:00 30 09/21/20 03:44 77 09/21/20 03:12 75 18 30 09/21/20 00:26 73 09/21/20 00:00 30 09/21/20 00:00 98.2 74 18 126/65 (85) 100 09/21/20 00:00 Mechanical Ventilator Mechanical Ventilator 09/20/20 22:56 77 21 100 Mechanical Ventilator 30 09/20/20 22:55 77 21 30 09/20/20 20:00 Mechanical Ventilator 09/20/20 20:00 30 09/20/20 20:00 98.4 76 19 142/74 (96) 99 09/20/20 19:50 74 09/20/20 18:52 75 20 30 09/20/20 16:00 99.1 72 20 132/69 (90) 100 09/20/20 16:00 Mechanical Ventilator 09/20/20 16:00 30 09/20/20 15:47 70 09/20/20 15:15 68 20 30 09/20/20 12:00 30 09/20/20 12:00 Mechanical Ventilator 09/20/20 12:00 99.1 68 20 142/75 (97) 100 09/20/20 11:38 71 09/20/20 11:16 66 19 30 09/20/20 08:00 99.9 67 20 131/70 (90) 95 09/20/20 08:00 Mechanical Ventilator 09/20/20 08:00 30 09/20/20 07:46 68 09/20/20 06:56 69 21 30 Intake and Output 09/20/20 09/21/20 19:00 07:00 Intake Total 1133.708 ml 770 ml Output Total 325 ml Balance 1133.708 ml 445 ml Free Water 240 ml 100 ml IV Total 293.708 ml 220 ml Tube Feeding 600 ml 450 ml Output Urine Total 325 ml # Bowel Movements 1 Laboratory Tests 09/20/20 08:23: White Blood Count 16.8H, Red Blood Count 3.18L, Hemoglobin 10.1L, Hematocrit 29.4L, Mean Corpuscular Volume 92, Mean Corpuscular Hemoglobin 31.6H, Mean Corpuscular Hemoglobin Concent 34.2, Red Cell Distribution Width 16.0H, Platelet Count 142L, Mean Platelet Volume 8.9, Neutrophils (%) (Auto) , Lymphocytes (%) (Auto) , Monocytes (%) (Auto) , Eosinophils (%) (Auto) , Basophils (%) (Auto) , Differential Total Cells Counted 100, Neutrophils % (Manual) 31L, Lymphocytes % (Manual) 14L, Monocytes % (Manual) 8, Eosinophils % (Manual) 47H, Basophils % (Manual) 0, Band Neutrophils 0, Platelet Estimate DecreasedL, Platelet Morphology Normal, Anisocytosis 1+ Height (Feet): 5 Height (Inches): 4.00 Weight (Pounds): 146 General Appearance: no apparent distress EENT: normal ENT inspection Neck: supple Cardiovascular: normal rate Respiratory/Chest: decreased breath sounds Abdomen: normal bowel sounds, non tender, soft Extremities: non-tender Assessment/Plan Status: progressing Assessment/Plan: Assessment - GT site drainage/discharge - resolved - OBS - Resp failure, s/p Trach - s/p PEG for dysphagia, - Parkinsons - Schizophrenia - h/o decub ulcers - Severe anemia Recommendations - continue feeds - GT care - Elevate HOB - monitor labs - EGD with GT change later this week Gilbert Hooks MD Sep 21, 2020 06:46
--- NOTE | 2020-09-21 07:11 | NUR ---
NURSE HAND-OFF REPORT: Important Events on Shift: none Patient Status: fair Diet: Glucerna 1.2 Pending Orders: Pending Results/Labs: Pending MD notification: Latest Vital Signs: Temperature 99.1 , Pulse 73 , B/P 142 /72 , Respiratory Rate 19 , O2 SAT 100 , Mechanical Ventilator, O2 Flow Rate 50.0 . Vital Sign Comment: EKG Rhythm: Sinus Rhythm Rhythm change?: N MD Notified?: - MD Response: Latest [place] Fall Score: 50 Fall Risk: High Risk Safety Measures: Call light Within Reach, Bed Alarm Zone 3, Side Rails Side Rails x2, Bed position Low and Locked. Fall Precautions: Yellow Socks Yellow Gown Door Sign Report given to Radames Diaz, aware to f/u on any abnormal am labs.
--- NOTE | 2020-09-21 07:30 | NUR ---
NURSE NOTES: Received pt from CRISTY Jamil, pt is awake and confused, pt has trach to ventilator AC 12 TV 400 FIO2 30% PEEP 5, Pt has intact iv access RH and LH 22G SL. Pt has g tube in place is running well. no complain of pain noted at this moment. all needs attended, bed is locked and is in the lowest position, call light within easy reach. will continue to monitor.
[2020-09-21 08:00] VITALS: BP 133/70
--- NOTE | 2020-09-21 08:26 | NUR ---
RD ASSESSMENT & RECOMMENDATIONS SEE CARE ACTIVITY FOR COMPLETE ASSESSMENT DAILY ESTIMATED NEEDS: Needs based on Wound, critical care 57.5kg abw 25-30 kcals/kg 4009-7356 total kcals 1.25-2 g protein/kg 72-115 g total protein 25-30 mL/kg 6717-9598 total fluid mLs NUTRITION DIAGNOSIS: * Increased kcal/prot needs R/T wound healing as evidenced by pt w/ h/o stage 4 sacral wound, eval is pending. * Swallowing difficulty R/T dysphagia, respiratory status as evidenced by pt is Trach and PEG dep. CURRENT TF: Glucerna 1.2 goal of 50ml/hr ENTERAL NUTRITION RECOMMENDATIONS: Glucerna 1.2 @ 55ml/hr x 24 hrs to provide 1320ml, 1584 kcal, 79g pro, 1063ml free H2O * Increase goal by 5ml/hr to goal of 55ml/hr x24 hrs to better meet est needs. * Add TYRESE in 4oz water BID via PEG for wound healing * HOB over 30 degrees/ water flush per MD ADDITIONAL RECOMMENDATIONS: * Calibrated bedscale wt for accurate CBW * Wound healing: TYRESE BID, Vit C 250mg BID Add Zn SO4 220mg qd x10 days * Monitor lytes, replete as needed * Monitor BGs w/ TF-> bed side BG checks + NISS .
[2020-09-21] MEDS: Vancomycin 1 GM in NS 275 ML IVPB SCH (08:29)
[2020-09-21] MEDS: Bactrim Susp 20ml GT SCH ×2 (08:29→20:00)
[2020-09-21] MEDS: Zinc Sulfate 220mg ORAL SCH (08:30)
[2020-09-21] MEDS: Ascorbic Acid 500mg tab ORAL SCH ×2 (08:30→17:44)
[2020-09-21] MEDS: Pantoprazole Inj IVP SCH ×2 (08:30→20:00)
--- NOTE | 2020-09-21 11:22 | Pulmonology Progress Note ---
Subjective ROS Limited/Unobtainable: No Interval Events: None new Constitutional: Denies: fever HEENT: Repors: no symptoms Respiratory: Reports: no symptoms Cardiovascular: Reports: no symptoms Gastrointestinal/Abdominal: Reports: no symptoms Genitourinary: Reports: no symptoms Allergies: Coded Allergies: No Known Allergies (Unverified , 11/22/15) Objective Last 24 Hour Vital Signs Date Time Temp Pulse Resp B/P (MAP) Pulse Ox O2 Delivery O2 Flow Rate FiO2 09/21/20 08:00 Mechanical Ventilator Mechanical Ventilator 09/21/20 08:00 98.2 76 19 133/70 (91) 98 09/21/20 08:00 30 09/21/20 07:47 83 09/21/20 06:00 99.1 09/21/20 04:00 Mechanical Ventilator Mechanical Ventilator 09/21/20 04:00 99.7 73 19 142/72 (95) 100 09/21/20 04:00 30 09/21/20 03:44 77 09/21/20 03:12 75 18 30 09/21/20 00:26 73 09/21/20 00:00 30 09/21/20 00:00 98.2 74 18 126/65 (85) 100 09/21/20 00:00 Mechanical Ventilator Mechanical Ventilator 09/20/20 22:56 77 21 100 Mechanical Ventilator 30 09/20/20 22:55 77 21 30 09/20/20 20:00 Mechanical Ventilator 09/20/20 20:00 30 09/20/20 20:00 98.4 76 19 142/74 (96) 99 09/20/20 19:50 74 09/20/20 18:52 75 20 30 09/20/20 16:00 99.1 72 20 132/69 (90) 100 09/20/20 16:00 Mechanical Ventilator 09/20/20 16:00 30 09/20/20 15:47 70 09/20/20 15:15 68 20 30 09/20/20 12:00 30 09/20/20 12:00 Mechanical Ventilator 09/20/20 12:00 99.1 68 20 142/75 (97) 100 09/20/20 11:38 71 Intake and Output 09/20/20 09/21/20 19:00 07:00 Intake Total 1133.708 ml 820 ml Output Total 325 ml Balance 1133.708 ml 495 ml Free Water 240 ml 100 ml IV Total 293.708 ml 220 ml Tube Feeding 600 ml 500 ml Output Urine Total 325 ml # Bowel Movements 1 General Appearance: no acute distress HEENT: normocephalic, atraumatic, status post trach Respiratory: chest wall non-tender, lungs clear, other - coarse rhonchi Cardiovascular: normal rate, regular rhythm Abdomen: normal bowel sounds, distended Microbiology Date/Time Source Procedure Growth Status 09/18/20 13:10 Blood Blood Culture - Preliminary NO GROWTH AFTER 24 HOURS Resulted 09/18/20 13:05 Blood Blood Culture - Preliminary NO GROWTH AFTER 24 HOURS Resulted Laboratory Tests 09/21/20 00:35: POC Whole Blood Glucose [Pending] Current Medications Medications (Trade) Dose Ordered Sig/Alex Route PRN Reason Start Time Stop Time Status Last Admin Dose Admin Acetaminophen (Tylenol) 500 mg Q4H PRN ORAL Mild Pain (Pain Scale 1-3) 09/15/20 23:15 10/15/20 23:14 09/16/20 01:28 Acetaminophen (Tylenol) 500 mg Q4H PRN ORAL Temp >100.5 09/15/20 23:15 10/15/20 23:14 09/21/20 05:30 Ascorbic Acid (Vitamin C) 250 mg TWICE A DAY ORAL 09/19/20 18:00 10/19/20 17:59 09/21/20 08:30 Clonidine HCl (Catapres Tab) 0.1 mg Q2H PRN GT For High Blood Pressure 09/17/20 17:00 12/16/20 16:59 Hydralazine HCl (Apresoline) 10 mg Q2H PRN IV For High Blood Pressure 09/17/20 17:00 12/16/20 16:59 Meropenem 1 gm/ Sodium Chloride 55 ml @ 110 mls/hr Q8HR IVPB 09/20/20 11:00 09/25/20 10:59 09/21/20 05:00 Multivitamins (Multivitamins) 1 tab DAILY ORAL 09/20/20 09:00 10/20/20 08:59 09/21/20 08:30 Pantoprazole (Protonix) 40 mg EVERY 12 HOURS IVP 09/17/20 14:15 10/17/20 14:14 09/21/20 08:30 Trimethoprim/ Sulfamethoxazole (Bactrim-DS) 10 ml EVERY 12 HOURS GT 09/20/20 11:00 09/27/20 10:59 09/21/20 08:29 Vancomycin HCl (Vanco pharmacy to dose) 1 ea DAILY PRN MISC Per rx protocol 09/20/20 06:30 10/20/20 06:29 Vancomycin HCl 1 gm/Sodium Chloride 275 ml @ 183.708 mls/hr Q24H IVPB 09/20/20 08:00 09/25/20 07:59 09/21/20 08:29 Zinc Sulfate (Zinc Sulfate) 220 mg DAILY ORAL 09/20/20 09:00 09/30/20 08:59 09/21/20 08:30 Assessment/Plan Assessment/Plan 1. Anemia, likely iron deficiency. - On IV iron. - s/p transfusion per Dr. Cazares. - Anemia workup ordered per Dr. Cazares. 2. Interstitial infiltrates, has pneumonia. - Sputum -> Serratia - Antibiotics per ID. - Continue supplemental oxygen; continue ventilator, AC mode.FiO2 30% 3. Sepsis. - Antibiotics per ID. Gm neg rods in sputum CS 4. History of fever. - Currently afebrile. 5. Possible COVID-19 infection. - Swab COVID-19 test negative. - Repeat PCR COVID-19 also negative 6. CHF. - 2D echocardiogram ordered per Cardio. 7. UTI. - On antibiotics. Has ESBL E. Coli 8. Elevated D-dimer. 9. DVT prophylaxis. - Venous duplex ultrasound negative. - on SCD 10. Chronic Respiratory Failure; continue vent; AC mode The history of Jennifer Gao has been reviewed and management options for her have been examined and discussed by Mino Childs. I have personally examined and interviewed the patient. Mino Childs MD Sep 21, 2020 11:22
--- NOTE | 2020-09-21 11:35 | Infectious Diseases Prog Note ---
Assessment/Plan Assessment/Plan antibiotics : vancomycin iv, meropenem, bactrim A 1. VRE sepsis 2. Serratia, Pseudomonas & Stenotrophomonas pneumonia, 3. E coli UTI, 4. respiratory failure, 5. Quadriplegia, 6. COPD, 7. Hypertension 8. increased leucocytosis P 1. continue meropenem, bactrim 2. d/c iv vancomycin 3. start linezolid 4. will follow up cultures Subjective ROS Limited/Unobtainable: Yes Allergies: Coded Allergies: No Known Allergies (Unverified , 11/22/15) Objective Last 24 Hour Vital Signs Date Time Temp Pulse Resp B/P (MAP) Pulse Ox O2 Delivery O2 Flow Rate FiO2 09/21/20 08:00 Mechanical Ventilator Mechanical Ventilator 09/21/20 08:00 98.2 76 19 133/70 (91) 98 09/21/20 08:00 30 09/21/20 07:47 83 09/21/20 06:00 99.1 09/21/20 04:00 Mechanical Ventilator Mechanical Ventilator 09/21/20 04:00 99.7 73 19 142/72 (95) 100 09/21/20 04:00 30 09/21/20 03:44 77 09/21/20 03:12 75 18 30 09/21/20 00:26 73 09/21/20 00:00 30 09/21/20 00:00 98.2 74 18 126/65 (85) 100 09/21/20 00:00 Mechanical Ventilator Mechanical Ventilator 09/20/20 22:56 77 21 100 Mechanical Ventilator 30 09/20/20 22:55 77 21 30 09/20/20 20:00 Mechanical Ventilator 09/20/20 20:00 30 09/20/20 20:00 98.4 76 19 142/74 (96) 99 09/20/20 19:50 74 09/20/20 18:52 75 20 30 09/20/20 16:00 99.1 72 20 132/69 (90) 100 09/20/20 16:00 Mechanical Ventilator 09/20/20 16:00 30 09/20/20 15:47 70 09/20/20 15:15 68 20 30 09/20/20 12:00 30 09/20/20 12:00 Mechanical Ventilator 09/20/20 12:00 99.1 68 20 142/75 (97) 100 09/20/20 11:38 71 Height (Feet): 5 Height (Inches): 4.00 Weight (Pounds): 146 HEENT: status post trach Respiratory/Chest: lungs clear Cardiovascular: normal rate, regular rhythm, no gallop/murmur Abdomen: soft, non tender, other - GT Extremities: no edema Microbiology Date/Time Source Procedure Growth Status 09/18/20 13:10 Blood Blood Culture - Preliminary NO GROWTH AFTER 24 HOURS Resulted 09/18/20 13:05 Blood Blood Culture - Preliminary NO GROWTH AFTER 24 HOURS Resulted Laboratory Tests Test 09/21/20 00:35 POC Whole Blood Glucose Pending Current Medications Medications (Trade) Dose Ordered Sig/Alex Route PRN Reason Start Time Stop Time Status Last Admin Dose Admin Acetaminophen (Tylenol) 500 mg Q4H PRN ORAL Mild Pain (Pain Scale 1-3) 09/15/20 23:15 10/15/20 23:14 09/16/20 01:28 Acetaminophen (Tylenol) 500 mg Q4H PRN ORAL Temp >100.5 09/15/20 23:15 10/15/20 23:14 09/21/20 05:30 Ascorbic Acid (Vitamin C) 250 mg TWICE A DAY ORAL 09/19/20 18:00 10/19/20 17:59 09/21/20 08:30 Clonidine HCl (Catapres Tab) 0.1 mg Q2H PRN GT For High Blood Pressure 09/17/20 17:00 12/16/20 16:59 Hydralazine HCl (Apresoline) 10 mg Q2H PRN IV For High Blood Pressure 09/17/20 17:00 12/16/20 16:59 Meropenem 1 gm/ Sodium Chloride 55 ml @ 110 mls/hr Q8HR IVPB 09/20/20 11:00 09/25/20 10:59 09/21/20 05:00 Multivitamins (Multivitamins) 1 tab DAILY ORAL 09/20/20 09:00 10/20/20 08:59 09/21/20 08:30 Pantoprazole (Protonix) 40 mg EVERY 12 HOURS IVP 09/17/20 14:15 10/17/20 14:14 09/21/20 08:30 Trimethoprim/ Sulfamethoxazole (Bactrim-DS) 10 ml EVERY 12 HOURS GT 09/20/20 11:00 09/27/20 10:59 09/21/20 08:29 Vancomycin HCl (Vanco pharmacy to dose) 1 ea DAILY PRN MISC Per rx protocol 09/20/20 06:30 10/20/20 06:29 Vancomycin HCl 1 gm/Sodium Chloride 275 ml @ 183.708 mls/hr Q24H IVPB 09/20/20 08:00 09/25/20 07:59 09/21/20 08:29 Zinc Sulfate (Zinc Sulfate) 220 mg DAILY ORAL 09/20/20 09:00 09/30/20 08:59 09/21/20 08:30 Jenny Arroyo MD Sep 21, 2020 11:35
[2020-09-21 11:51] VITALS: BP 137/71
--- NOTE | 2020-09-21 13:30 | Cardiac Electrophysiology PN ---
Assessment/Plan Assessment/Plan 1. Hypertension, currently blood pressure stable. On p.r.n. Hydralazine and clonidine 2. Ventilator-dependent respiratory failure status post tracheostomy on 30% FiO2, in sinus rhythm. COVID was negative. 3. Severe anemia, hemoglobin 7.5. S/P blood transfusion. Etiology is not clear at this time, but creatinine is within normal range. 4. Elevated BNP of more than 4000. Echo EF 65% 5. Dysphagia, status post PEG placement. DW RN Awaiting placement Subjective Subjective Off covid isolation. No events On the Vent with 30% Fio2 off restraints. Placement Objective Last 24 Hour Vital Signs Date Time Temp Pulse Resp B/P (MAP) Pulse Ox O2 Delivery O2 Flow Rate FiO2 09/21/20 12:00 Mechanical Ventilator Mechanical Ventilator 09/21/20 12:00 30 09/21/20 11:51 98.2 81 20 137/71 (93) 98 09/21/20 11:43 84 09/21/20 08:00 Mechanical Ventilator Mechanical Ventilator 09/21/20 08:00 98.2 76 19 133/70 (91) 98 09/21/20 08:00 30 09/21/20 07:47 83 09/21/20 06:00 99.1 09/21/20 04:00 Mechanical Ventilator Mechanical Ventilator 09/21/20 04:00 99.7 73 19 142/72 (95) 100 09/21/20 04:00 30 09/21/20 03:44 77 09/21/20 03:12 75 18 30 09/21/20 00:26 73 09/21/20 00:00 30 09/21/20 00:00 98.2 74 18 126/65 (85) 100 09/21/20 00:00 Mechanical Ventilator Mechanical Ventilator 09/20/20 22:56 77 21 100 Mechanical Ventilator 30 09/20/20 22:55 77 21 30 09/20/20 20:00 Mechanical Ventilator 09/20/20 20:00 30 09/20/20 20:00 98.4 76 19 142/74 (96) 99 09/20/20 19:50 74 09/20/20 18:52 75 20 30 09/20/20 16:00 99.1 72 20 132/69 (90) 100 09/20/20 16:00 Mechanical Ventilator 09/20/20 16:00 30 09/20/20 15:47 70 09/20/20 15:15 68 20 30 Intake and Output 09/20/20 09/21/20 19:00 07:00 Intake Total 1133.708 ml 820 ml Output Total 325 ml Balance 1133.708 ml 495 ml Free Water 240 ml 100 ml IV Total 293.708 ml 220 ml Tube Feeding 600 ml 500 ml Output Urine Total 325 ml # Bowel Movements 1 Laboratory Tests Test 09/21/20 00:35 POC Whole Blood Glucose Pending Objective HEAD AND NECK: No JVD.S/P Trach LUNGS: Coarse rhonchi. CARDIOVASCULAR: Regular S1 and S2 with no gallop. ABDOMEN: Status post PEG. EXTREMITIES: 1+ pitting edema. Flex Bess MD Sep 21, 2020 13:30
--- NOTE | 2020-09-21 14:33 | NUR ---
CASE MANAGEMENT:REVIEW 09/21/20 SI: SEPSIS. PNA. UTI. TRACH/VENT/GTUBE. 99.7 81 20 137/71 98% ON VENT SUPPORT W/30% FIO2 WBC+16.8 (YESTERDAY) IS: IV LINEZOLID Q12 IV MEROPENEM Q8HRS BACTRIM GT Q12 IV PROTONIX Q12 : STEP DOWN UNIT PLAN: CULTURES PENDING
[2020-09-21 16:00] VITALS: BP 129/61
--- NOTE | 2020-09-21 17:34 | Surgery Progress Note ---
Surgery Progress Note Subjective Additional Comments ill appearing worsening leukocytosis lab reviewed pending micro dressings Objective Last 24 Hour Vital Signs Date Time Temp Pulse Resp B/P (MAP) Pulse Ox O2 Delivery O2 Flow Rate FiO2 09/21/20 16:00 30 09/21/20 16:00 Mechanical Ventilator Mechanical Ventilator 09/21/20 16:00 98.8 78 21 129/61 (83) 100 09/21/20 15:20 85 09/21/20 12:00 Mechanical Ventilator Mechanical Ventilator 09/21/20 12:00 30 09/21/20 11:51 98.2 81 20 137/71 (93) 98 09/21/20 11:43 84 09/21/20 08:00 Mechanical Ventilator Mechanical Ventilator 09/21/20 08:00 98.2 76 19 133/70 (91) 98 09/21/20 08:00 30 09/21/20 07:47 83 09/21/20 06:00 99.1 09/21/20 04:00 Mechanical Ventilator Mechanical Ventilator 09/21/20 04:00 99.7 73 19 142/72 (95) 100 09/21/20 04:00 30 09/21/20 03:44 77 09/21/20 03:12 75 18 30 09/21/20 00:26 73 09/21/20 00:00 30 09/21/20 00:00 98.2 74 18 126/65 (85) 100 09/21/20 00:00 Mechanical Ventilator Mechanical Ventilator 09/20/20 22:56 77 21 100 Mechanical Ventilator 30 09/20/20 22:55 77 21 30 09/20/20 20:00 Mechanical Ventilator 09/20/20 20:00 30 09/20/20 20:00 98.4 76 19 142/74 (96) 99 09/20/20 19:50 74 09/20/20 18:52 75 20 30 I&O Intake and Output 09/20/20 09/21/20 19:00 07:00 Intake Total 1133.708 ml 820 ml Output Total 325 ml Balance 1133.708 ml 495 ml Free Water 240 ml 100 ml IV Total 293.708 ml 220 ml Tube Feeding 600 ml 500 ml Output Urine Total 325 ml # Bowel Movements 1 Dressing: saturated Cardiovascular: RSR Respiratory: decreased breath sounds Abdomen: non-tender, present bowel sounds Extremities: no tenderness, no cyanosis Laboratory Tests Test 09/21/20 00:35 09/21/20 15:02 POC Whole Blood Glucose Pending Pending Plan Problems: (1) Pneumonia (2) Functional quadriplegia (3) Person under investigation for COVID-19 (4) Chronic respiratory failure (5) Dehydration (6) Hypernatremia (7) Hypothyroidism (8) Pyelonephritis (9) Protein calorie malnutrition Assessment & Plan: DAILY ESTIMATED NEEDS: Needs based on Wound, critical care 57.5kg abw 25-30 kcals/kg 6321-9176 total kcals 1.25-2 g protein/kg 72-115 g total protein 25-30 mL/kg 2638-8398 total fluid mLs NUTRITION DIAGNOSIS: * Increased kcal/prot needs R/T wound healing as evidenced by pt w/ h/o stage 4 sacral wound, eval is pending. * Swallowing difficulty R/T dysphagia, respiratory status as evidenced by pt is Trach and PEG dep. ENTERAL NUTRITION RECOMMENDATIONS: Glucerna 1.2 @ 55ml/hr x 24 hrs to provide 1320ml, 1584 kcal, 79g pro, 1063ml free H2O * As medically able, start Glucerna 1.2 @35ml/hr for 6 hrs, advance as tolerated q4-6 to goal. * Add TYRESE in 4oz water BID via PEG for wound healing * HOB over 30 degrees/ water flush per MD ADDITIONAL RECOMMENDATIONS: * Calibrated bedscale wt for accurate CBW * Wound healing: TYRESE BID, Vit C 250mg BID F/up w/ WC eval * Monitor lytes, replete as needed * Monitor BGs w/ TF-> bed side BG checks + NISS (10) Failure to thrive (child) (11) Sacral decubitus ulcer Assessment & Plan: Pt presented on admission with Tracheostomy, GT, and multiple Pressure injuries. No erythema or evidence of skin breakdown under tracheal collar. dry dark brown skin plaque noted at R lateral chest to R flank. Full thickness stage 4 Sacral Pressure Injury with undermined borders(L)2cm x (W)2cm x (D)2cm, undermining clockwise 11-3 by 2.3cm @3o'clock.Ability to accurately assess base of wound is not fully appreciated secondary to shape of wound. (+) Epibole along edges of wound. Silver Nitrate sticks application applied to Borders. Bone is palpable when probed.Small amt brown exudate noted. No odor noted. [place] Atrophic scar periwound. Resolving Pressure Injury R Ischium. [place] epithelial noted at base of wound. Intact serous Blister noted to monica/upper L thigh. No erythema or changes in skin temp at affected site. Reabsorbing DTPI L Hallux. Base of Pressure injury is dark brown,dry without erythema,induration or fluctuance. L Heel is boggy with non-blanchable erythema. R Heel is boggy but blanchable. Tx.Plan: Cleanse Sacral wound with Saline. Loosely pack with Therahoney impregnated Kerlix.Apply Moisture Barrier Paste periwound. Cover with Optifoam drsg every 3 days and prn. Apply Moisture Barrier Paste to R Ischium. Cover with Optifoam drsg. Change every 3 days and prn. Apply Phytoplex Skin Nourishing lotion to Lateral R chest /R Flank Daily. Apply Cavilon Skin Barrier to R and L Heel. Cover each heel with Optifoam drsg.Change every 7 days and prn. Reposition at least every 2hours or as tolerated. Off-load heels with pillow. (12) Tracheostomy dependence (13) Sepsis (14) UTI (urinary tract infection) (15) Anemia (16) Dysphagia (17) Hypoalbuminemia (18) Iron deficiency (19) At high risk for aspiration (20) Parkinson disease (21) Dementia (22) Elevated CEA (23) Paroxysmal A-fib (24) Pancytopenia Holland Petty Sep 21, 2020 17:34
--- NOTE | 2020-09-21 18:33 | NUR ---
NURSE NOTES: RN with witness MARQUEZ Chin got consent for EGD from pt's daughter LEONARDO Grace.
--- NOTE | 2020-09-21 19:04 | NUR ---
NURSE NOTES: Received report from CRISTY Diaz, pt. in bed awake, with eyes open- non-verbal, no tracking noted, unable to make needs known, no signs or symptoms of acute cardiac or respiratory distress noted, bed alarm on, side rails up x's3 and safety brakes engaged, call light within easy reach, pt. appears to be tolerating current vent settings well- AC 12, TV 400, Fio2 at 30% and peep 5- no distress noted, G tube running Glucerna 1.2 running at 50cc/hr- no residual noted, pure wick intact and set to suction, pt. appears clean and dry, Rt. hand 22G IV intact and patent, left thumb 22G IV intact and patent-TKO safety measures continued, will continue with plan of care.
--- NOTE | 2020-09-21 19:09 | NUR ---
NURSE HAND-OFF REPORT: Important Events on Shift:pt has EGD tomorrow, keep pt NPO from mid night. Patient Status: Diet: Pending Orders: Pending Results/Labs: Pending MD notification: Latest Vital Signs: Temperature 98.8 , Pulse 78 , B/P 129 /61 , Respiratory Rate 21 , O2 SAT 100 , Mechanical Ventilator, O2 Flow Rate 50.0 . Vital Sign Comment: EKG Rhythm: Sinus Rhythm Rhythm change?: N MD Notified?: - MD Response: Latest [place] Fall Score: 50 Fall Risk: High Risk Safety Measures: Call light Within Reach, Bed Alarm Zone 3, Side Rails Side Rails x2, Bed position Low and Locked. Fall Precautions: Yellow Socks Yellow Gown Door Sign Report given to . Pt is awake and stable, no stress noted, Endorsed plan of care, endorsed to keep pt NPO from mid night due to EGD.
[2020-09-21 19:24] LABS: HEMATOCRIT 28.6 % (37.0-47.0); HEMOGLOBIN 9.4 G/DL (12.0-16.0); MEAN CORPUSCULAR VOLUME 94 FL (80-99); PLATELET COUNT 155 K/UL (150-450); RED BLOOD COUNT 3.06 M/UL (4.20-5.40); RED CELL DISTRIBUTION WIDTH 17.5 % (11.6-14.8); WHITE BLOOD COUNT 16.5 K/UL (4.8-10.8)
[2020-09-21 19:31] LABS: INR 1.1 (0.9-1.1)
[2020-09-21 19:46] LABS: ALANINE AMINOTRANSFERASE 12 U/L (12-78); ALBUMIN 2.4 G/DL (3.4-5.0); ALBUMIN/GLOBULIN RATIO 0.5 (1.0-2.7); ALKALINE PHOSPHATASE 149 U/L (46-116); ANION GAP 4 mmol/L (5-15); ASPARTATE AMINO TRANSFERASE 10 U/L (15-37); BILIRUBIN,TOTAL 0.4 MG/DL (0.2-1.0); BLOOD UREA NITROGEN 22 mg/dL (7-18); CALCIUM 9.6 MG/DL (8.5-10.1); CARBON DIOXIDE 28 MMOL/L (21-32); CHLORIDE 112 MMOL/L (98-107); CREATININE 0.7 MG/DL (0.55-1.30); POTASSIUM 4.8 MMOL/L (3.5-5.1); SODIUM 143 MMOL/L (136-145)
[2020-09-21 20:00] VITALS: BP 125/70
--- NOTE | 2020-09-21 20:25 | General Progress Note ---
Subjective ROS Limited/Unobtainable: Yes Allergies: Coded Allergies: No Known Allergies (Unverified , 11/22/15) Objective Last 24 Hour Vital Signs Date Time Temp Pulse Resp B/P (MAP) Pulse Ox O2 Delivery O2 Flow Rate FiO2 09/21/20 20:00 98.6 79 20 125/70 (88) 99 09/21/20 20:00 Mechanical Ventilator Mechanical Ventilator 09/21/20 20:00 30 09/21/20 19:30 80 21 30 09/21/20 16:00 30 09/21/20 16:00 Mechanical Ventilator Mechanical Ventilator 09/21/20 16:00 98.8 78 21 129/61 (83) 100 09/21/20 15:20 85 09/21/20 14:50 80 22 30 09/21/20 12:00 Mechanical Ventilator Mechanical Ventilator 09/21/20 12:00 30 09/21/20 11:51 98.2 81 20 137/71 (93) 98 09/21/20 11:43 84 09/21/20 10:38 84 21 30 09/21/20 08:00 Mechanical Ventilator Mechanical Ventilator 09/21/20 08:00 98.2 76 19 133/70 (91) 98 09/21/20 08:00 30 09/21/20 07:47 83 09/21/20 07:10 82 16 30 09/21/20 06:00 99.1 09/21/20 04:00 Mechanical Ventilator Mechanical Ventilator 09/21/20 04:00 99.7 73 19 142/72 (95) 100 09/21/20 04:00 30 09/21/20 03:44 77 09/21/20 03:12 75 18 30 09/21/20 00:26 73 09/21/20 00:00 30 09/21/20 00:00 98.2 74 18 126/65 (85) 100 09/21/20 00:00 Mechanical Ventilator Mechanical Ventilator 09/20/20 22:56 77 21 100 Mechanical Ventilator 30 09/20/20 22:55 77 21 30 Intake and Output 09/20/20 09/21/20 19:00 07:00 Intake Total 1133.708 ml 820 ml Output Total 325 ml Balance 1133.708 ml 495 ml Free Water 240 ml 100 ml IV Total 293.708 ml 220 ml Tube Feeding 600 ml 500 ml Output Urine Total 325 ml # Bowel Movements 1 Laboratory Tests 09/21/20 00:35: POC Whole Blood Glucose [Pending] 09/21/20 15:02: POC Whole Blood Glucose [Pending] 09/21/20 18:02: POC Whole Blood Glucose 86 09/21/20 19:10: White Blood Count 16.5H, Red Blood Count 3.06L, Hemoglobin 9.4L, Hematocrit 28.6L, Mean Corpuscular Volume 94, Mean Corpuscular Hemoglobin 30.7, Mean Corpuscular Hemoglobin Concent 32.8, Red Cell Distribution Width 17.5H, Platelet Count 155, Mean Platelet Volume 8.9, Neutrophils (%) (Auto) , Lymphocytes (%) (Auto) , Monocytes (%) (Auto) , Eosinophils (%) (Auto) , Basophils (%) (Auto) , Differential Total Cells Counted 100, Neutrophils % (Manual) 48, Lymphocytes % (Manual) 15L, Monocytes % (Manual) 5, Eosinophils % (Manual) 32H, Basophils % (Manual) 0, Band Neutrophils 0, Platelet Estimate Adequate, Platelet Morphology Normal, Hypochromasia 1+, Anisocytosis 1+, Prothrombin Time 12.0H, Prothromb T boogie International Ratio 1.1, Activated Partial Thromboplast Time 27, Sodium Level 143, Potassium Level 4.8, Chloride Level 112H, Carbon Dioxide Level 28, Anion Gap 4L, Blood Urea Nitrogen 22H, Creatinine 0.7, Estimat Glomerular Filtration Rate > 60, Glucose Level 107H, Calcium Level 9.6, Total Bilirubin 0.4, Aspartate Amino Transf (AST/SGOT) 10L, Alanine Aminotransferase (ALT/SGPT) 12, Alkaline Phosphatase 149H, Total Protein 7.3, Albumin 2.4L, Globulin 4.9, Albumin/Globulin Ratio 0.5L Height (Feet): 5 Height (Inches): 4.00 Weight (Pounds): 146 Assessment/Plan Problem List: (1) Hypothyroidism ICD Codes: E03.9 - Hypothyroidism, unspecified SNOMED: 98476761 (2) Chronic respiratory failure ICD Codes: J96.10 - Chronic respiratory failure, unspecified whether with hypoxia or hypercapnia SNOMED: 10135793 (3) Functional quadriplegia ICD Codes: R53.2 - Functional quadriplegia SNOMED: 524110854129031 (4) Protein calorie malnutrition ICD Codes: E46 - Unspecified protein-calorie malnutrition SNOMED: 415390875 (5) Failure to thrive (child) ICD Codes: R62.51 - Failure to thrive (child) SNOMED: 927326240 (6) Sacral decubitus ulcer ICD Codes: L89.159 - Pressure ulcer of sacral region, unspecified stage SNOMED: 715832978 (7) Tracheostomy dependence ICD Codes: Z93.0 - Tracheostomy status SNOMED: 335676707 (8) Sepsis ICD Codes: A41.9 - Sepsis, unspecified organism SNOMED: 28131991 (9) Anemia ICD Codes: D64.9 - Anemia, unspecified SNOMED: 842785593 Qualifiers: Qualified Codes: D64.9 - Anemia, unspecified (10) UTI (urinary tract infection) ICD Codes: N39.0 - Urinary tract infection, site not specified SNOMED: 13484518 Qualifiers: Qualified Codes: N39.0 - Urinary tract infection, site not specified Status: progressing Assessment/Plan: trach and peg sepsis anemia no change supportive care on high oxygen Sandeep Oneil MD Sep 21, 2020 20:25
--- NOTE | 2020-09-21 21:52 | NUR ---
NURSE NOTES: bed bath given and linens changed, oral care provided, pt. appears to be sating well on current vent settings- sating at 100%, skin precautions observed, HOB elevated- aspiration precautions observed- will continue to monitor pt. and with plan of care.
[2020-09-22] VITALS: BP 123/55
[2020-09-22 04:00] VITALS: BP 114/70
[2020-09-22] MEDS: Meropenem 1 GM in NS 55 ML IVPB SCH ×3 (05:11→22:20)
--- NOTE | 2020-09-22 06:28 | Hematology/Onc Progress Note ---
Assessment/Plan Assessment/Plan LABORATORY DATA: 04/2020 white count 4.7, platelets 140 otherwise CBC is normal. BMP shows chloride 110, creatinine 0.4. Albumin 2.9, otherwise normal. INR 1.0, PTT 27. Urinalysis shows 2+ leukocyte esterase. 09/16 wbc 10, hgb 7.5, plt 126 Imaging 07/01/20 cxr Bilateral patchy airspace opacities. Differential includes multifocal pneumonia and pulmonary edema. 09/16/20 cxr b/l infiltrates noted Assessment and Recommendations # Anemia of iron deficiency, has been persistent for months, now improved, as ferritin better --> Anemia workup has been ordered--> improved --> No evidence of hemolysis is noted, peripheral smear has been reviewed. --> Hgb goal >7. Transfuse prn. --> Iron ivnot needed any further --> Medications have been reviewed --> gb 9-->8.4->>>>7.5-->9.4-->9->10-->9.4 # Right breast calcifications --> does not have a breast mass on exam --> f/u as outpatient with mammo as needed --> do not do a us breast here # Thrombocytopenia - potential causes multifactorial, evaluate liver and viral etiologies to begin, also could be related to underlying medications, no wimproved --> Hep panel and HIV prior negative -> plt 183->203->199-->125->130 --> abx # Leukocytosis with Pna --> antibiotics per id --> wbc 16 # Sepsis --> antibiotics per Infectious Disease. --> ABX vanc/zosyn # Dehydration. --> PT and Dietary evaluation. # Hypertension --> Blood pressure control. # Dvt ppx scds The timing of this note does not necessarily reflect the time of the patient was seen Greatly appreciate consultation! Subjective Constitutional: Denies: no symptoms, chills, fever, malaise, weakness, other HEENT: Denies: no symptoms, eye pain, blurred vision, tearing, double vision, ear pain, ear discharge, nose pain, nose congestion, throat pain, throat swellin g, mouth pain, mouth swelling, other Cardiovascular: Denies: no symptoms, chest pain, edema, irregular heart rate, lightheadedness, palpitations, syncope, other Gastrointestinal/Abdominal: Denies: no symptoms, abdomen distended, abdominal pain, black stools, tarry stools, blood in stool, constipated, diarrhea, difficulty swallowing, nausea, poor appetite, poor fluid intake, rectal bleeding, vomiting, other Genitourinary: Denies: no symptoms, burning, discharge, frequency, flank pain, hematuria, incontinence, pain, urgency, other Neurologic/Psychiatric: Denies: no symptoms, anxiety, depressed, emotional problems, headache, numbness, paresthesia, pre-existing deficit, seizure, tingling, tremors, weakness, other Endocrine: Denies: no symptoms, excessive sweating, flushing, intolerance to cold, intolerance to heat, increased hunger, increased thirst, increased urine, unexplained weight gain, unexplained weight loss, other Allergies: Coded Allergies: No Known Allergies (Unverified , 11/22/15) Subjective 09/18 labs are noted, no bleeding, seen by pulm, cbc is pending 09/19 gtube is running, meds reviewed, labs noted 09/20 labs reviewed, meds noted, cbc is pending, vanc was added recently 09/21 labs reviewed, meds noetd, hgb 10, bactrim, yovani, vanc 09/22 is satting well on the vent, abx, labs still pending for am Objective Objective Current Medications Medications (Trade) Dose Ordered Sig/Alex Route PRN Reason Start Time Stop Time Status Last Admin Dose Admin Acetaminophen (Tylenol) 500 mg Q4H PRN ORAL Temp >100.5 09/15/20 23:15 10/15/20 23:14 09/21/20 05:30 Acetaminophen (Tylenol) 500 mg Q4H PRN ORAL Mild Pain (Pain Scale 1-3) 09/15/20 23:15 10/15/20 23:14 09/21/20 17:44 Ascorbic Acid (Vitamin C) 250 mg TWICE A DAY ORAL 09/19/20 18:00 10/19/20 17:59 09/21/20 17:44 Clonidine HCl (Catapres Tab) 0.1 mg Q2H PRN GT For High Blood Pressure 09/17/20 17:00 12/16/20 16:59 Hydralazine HCl (Apresoline) 10 mg Q2H PRN IV For High Blood Pressure 09/17/20 17:00 12/16/20 16:59 Linezolid 300 ml @ 300 mls/hr Q12HR IVPB 09/21/20 13:00 09/28/20 12:59 09/21/20 20:01 Meropenem 1 gm/ Sodium Chloride 55 ml @ 110 mls/hr Q8HR IVPB 09/20/20 11:00 09/25/20 10:59 09/22/20 05:11 Multivitamins (Multivitamins) 1 tab DAILY ORAL 09/20/20 09:00 10/20/20 08:59 09/21/20 08:30 Pantoprazole (Protonix) 40 mg EVERY 12 HOURS IVP 09/17/20 14:15 10/17/20 14:14 09/21/20 20:00 Trimethoprim/ Sulfamethoxazole (Bactrim-DS) 10 ml EVERY 12 HOURS GT 09/20/20 11:00 09/27/20 10:59 09/21/20 20:00 Zinc Sulfate (Zinc Sulfate) 220 mg DAILY ORAL 09/20/20 09:00 09/30/20 08:59 09/21/20 08:30 Last 24 Hour Vital Signs Date Time Temp Pulse Resp B/P (MAP) Pulse Ox O2 Delivery O2 Flow Rate FiO2 09/22/20 04:00 Mechanical Ventilator Mechanical Ventilator 09/22/20 04:00 30 09/22/20 04:00 98.1 78 19 114/70 (85) 100 09/22/20 03:33 72 09/22/20 02:50 78 19 30 09/22/20 00:00 30 09/22/20 00:00 Mechanical Ventilator Mechanical Ventilator 09/22/20 00:00 98.2 82 22 123/55 (77) 98 09/21/20 23:44 70 09/21/20 23:19 79 22 30 09/21/20 20:00 98.6 79 20 125/70 (88) 99 09/21/20 20:00 Mechanical Ventilator Mechanical Ventilator 09/21/20 20:00 30 09/21/20 19:30 80 21 30 09/21/20 19:03 80 09/21/20 16:00 30 09/21/20 16:00 Mechanical Ventilator Mechanical Ventilator 09/21/20 16:00 98.8 78 21 129/61 (83) 100 09/21/20 15:20 85 09/21/20 14:50 80 22 30 09/21/20 12:00 Mechanical Ventilator Mechanical Ventilator 09/21/20 12:00 30 09/21/20 11:51 98.2 81 20 137/71 (93) 98 09/21/20 11:43 84 09/21/20 10:38 84 21 30 09/21/20 08:00 Mechanical Ventilator Mechanical Ventilator 09/21/20 08:00 98.2 76 19 133/70 (91) 98 09/21/20 08:00 30 09/21/20 07:47 83 09/21/20 07:10 82 16 30 09/21/20 06:00 99.1 09/21/20 04:00 Mechanical Ventilator Mechanical Ventilator 09/21/20 04:00 99.7 73 19 142/72 (95) 100 09/21/20 04:00 30 09/21/20 03:44 77 09/21/20 03:12 75 18 30 09/21/20 00:26 73 09/21/20 00:00 30 09/21/20 00:00 98.2 74 18 126/65 (85) 100 09/21/20 00:00 Mechanical Ventilator Mechanical Ventilator 09/20/20 22:56 77 21 100 Mechanical Ventilator 30 09/20/20 22:55 77 21 30 09/20/20 20:00 Mechanical Ventilator 09/20/20 20:00 30 09/20/20 20:00 98.4 76 19 142/74 (96) 99 09/20/20 19:50 74 09/20/20 18:52 75 20 30 09/20/20 16:00 99.1 72 20 132/69 (90) 100 09/20/20 16:00 Mechanical Ventilator 09/20/20 16:00 30 09/20/20 15:47 70 09/20/20 15:15 68 20 30 09/20/20 12:00 30 09/20/20 12:00 Mechanical Ventilator 09/20/20 12:00 99.1 68 20 142/75 (97) 100 09/20/20 11:38 71 09/20/20 11:16 66 19 30 09/20/20 08:00 99.9 67 20 131/70 (90) 95 09/20/20 08:00 Mechanical Ventilator 09/20/20 08:00 30 09/20/20 07:46 68 09/20/20 06:56 69 21 30 Intake and Output 09/21/20 09/22/20 19:00 07:00 Intake Total 1430.000 ml 760 ml Output Total 300 ml 575 ml Balance 1130.000 ml 185 ml Free Water 200 ml 100 ml IV Total 630.000 ml 410 ml Tube Feeding 600 ml 250 ml Output Urine Total 300 ml 575 ml # Bowel Movements 2 1 Labs Test 09/19/20 13:48 09/19/20 16:34 09/20/20 01:29 09/20/20 08:23 POC Whole Blood Glucose 93 MG/DL (74-106) 108 MG/DL (74-106) 113 MG/DL (74-106) White Blood Count 16.8 K/UL (4.8-10.8) Red Blood Count 3.18 M/UL (4.20-5.40) Hemoglobin 10.1 G/DL (12.0-16.0) Hematocrit 29.4 % (37.0-47.0) Mean Corpuscular Volume 92 FL (80-99) Mean Corpuscular Hemoglobin 31.6 PG (27.0-31.0) Mean Corpuscular Hemoglobin Concent 34.2 G/DL (32.0-36.0) Red Cell Distribution Width 16.0 % (11.6-14.8) Platelet Count 142 K/UL (150-450) Mean Platelet Volume 8.9 FL (6.5-10.1) Neutrophils (%) (Auto) % (45.0-75.0) Lymphocytes (%) (Auto) % (20.0-45.0) Monocytes (%) (Auto) % (1.0-10.0) Eosinophils (%) (Auto) % (0.0-3.0) Basophils (%) (Auto) % (0.0-2.0) Differential Total Cells Counted 100 Neutrophils % (Manual) 31 % (45-75) Lymphocytes % (Manual) 14 % (20-45) Monocytes % (Manual) 8 % (1-10) Eosinophils % (Manual) 47 % (0-3) Basophils % (Manual) 0 % (0-2) Band Neutrophils 0 % (0-8) Platelet Estimate Decreased Platelet Morphology Normal Anisocytosis 1+ Test 09/21/20 00:35 09/21/20 15:02 09/21/20 18:02 09/21/20 19:10 POC Whole Blood Glucose 86 MG/DL (74-106) White Blood Count 16.5 K/UL (4.8-10.8) Red Blood Count 3.06 M/UL (4.20-5.40) Hemoglobin 9.4 G/DL (12.0-16.0) Hematocrit 28.6 % (37.0-47.0) Mean Corpuscular Volume 94 FL (80-99) Mean Corpuscular Hemoglobin 30.7 PG (27.0-31.0) Mean Corpuscular Hemoglobin Concent 32.8 G/DL (32.0-36.0) Red Cell Distribution Width 17.5 % (11.6-14.8) Platelet Count 155 K/UL (150-450) Mean Platelet Volume 8.9 FL (6.5-10.1) Neutrophils (%) (Auto) % (45.0-75.0) Lymphocytes (%) (Auto) % (20.0-45.0) Monocytes (%) (Auto) % (1.0-10.0) Eosinophils (%) (Auto) % (0.0-3.0) Basophils (%) (Auto) % (0.0-2.0) Differential Total Cells Counted 100 Neutrophils % (Manual) 48 % (45-75) Lymphocytes % (Manual) 15 % (20-45) Monocytes % (Manual) 5 % (1-10) Eosinophils % (Manual) 32 % (0-3) Basophils % (Manual) 0 % (0-2) Band Neutrophils 0 % (0-8) Platelet Estimate Adequate Platelet Morphology Normal Hypochromasia 1+ Anisocytosis 1+ Prothrombin Time 12.0 SEC (9.30-11.50) Prothromb Time International Ratio 1.1 (0.9-1.1) Activated Partial Thromboplast Time 27 SEC (23-33) Sodium Level 143 MMOL/L (136-145) Potassium Level 4.8 MMOL/L (3.5-5.1) Chloride Level 112 MMOL/L (98-107) Carbon Dioxide Level 28 MMOL/L (21-32) Anion Gap 4 mmol/L (5-15) Blood Urea Nitrogen 22 mg/dL (7-18) Creatinine 0.7 MG/DL (0.55-1.30) Estimat Glomerular Filtration Rate > 60 mL/min (>60) Glucose Level 107 MG/DL (74-106) Calcium Level 9.6 MG/DL (8.5-10.1) Total Bilirubin 0.4 MG/DL (0.2-1.0) Aspartate Amino Transf (AST/SGOT) 10 U/L (15-37) Alanine Aminotransferase (ALT/SGPT) 12 U/L (12-78) Alkaline Phosphatase 149 U/L (46-116) Total Protein 7.3 G/DL (6.4-8.2) Albumin 2.4 G/DL (3.4-5.0) Globulin 4.9 g/dL Albumin/Globulin Ratio 0.5 (1.0-2.7) Test 09/22/20 06:07 POC Whole Blood Glucose 86 MG/DL (74-106) Height (Feet): 5 Height (Inches): 3.00 Weight (Pounds): 145 Objective PHYSICAL EXAMINATION: GENERAL: Slightly confused in bed, oriented x1, CARDIOVASCULAR: No murmur. LUNGS: Poor air exchange.+vent/trach ABDOMEN: Bowel sounds distant.++peg EXTREMITIES: No cyanosis, clubbing, or edema NEUROLOGIC: Neck, weakness as well leaning forward.bedbound++ Alan Cazares MD Sep 22, 2020 06:28
--- NOTE | 2020-09-22 07:01 | NUR ---
NURSE HAND-OFF REPORT: Important Events on Shift:none- aware to f/u on EGD Patient Status: fair Diet: Glucerna 1.2 Pending Orders: Pending Results/Labs: Pending MD notification: Latest Vital Signs: Temperature 98.1 , Pulse 78 , B/P 114 /70 , Respiratory Rate 19 , O2 SAT 100 , Mechanical Ventilator, O2 Flow Rate 50.0 . Vital Sign Comment: EKG Rhythm: Sinus Rhythm Rhythm change?: N MD Notified?: - MD Response: Latest [place] Fall Score: 50 Fall Risk: High Risk Safety Measures: Call light Within Reach, Bed Alarm Zone 3, Side Rails Side Rails x2, Bed position Low and Locked. Fall Precautions: Yellow Socks Yellow Gown Door Sign Report given to Radames Diaz, aware to f/u on any abnormal am labs.
--- NOTE | 2020-09-22 07:24 | NUR ---
NURSE NOTES: Received pt from CRISTY Jamil, pt is awake and confused, pt has trach to ventilator AC 12 TV 400 FIO2 30% PEEP 5, Pt has intact iv access RH and LH 22G SL. Pt has g tube in place is patent. Pt is NPO due to EGD. no complain of pain noted at this moment. all needs attended, bed is locked and is in the lowest position, call light within easy reach. will continue to monitor.
[2020-09-22 08:00] VITALS: BP 139/77
[2020-09-22] MEDS: Ascorbic Acid 500mg tab ORAL SCH ×2 (08:09→17:30)
[2020-09-22] MEDS: Zinc Sulfate 220mg ORAL SCH (08:09)
[2020-09-22] MEDS: Pantoprazole Inj IVP SCH ×2 (08:09→20:22)
[2020-09-22] MEDS: Bactrim Susp 20ml GT SCH ×2 (08:09→20:22)
[2020-09-22] MEDS ORDERED: NS 500ML IVPB ONE (08:30)
--- NOTE | 2020-09-22 08:45 | General Progress Note ---
Subjective Allergies: Coded Allergies: No Known Allergies (Unverified , 11/22/15) Subjective Above noted NPO for EGD today to change GT at same time Objective Last 24 Hour Vital Signs Date Time Temp Pulse Resp B/P (MAP) Pulse Ox O2 Delivery O2 Flow Rate FiO2 09/22/20 08:00 30 09/22/20 07:50 Mechanical Ventilator Mechanical Ventilator 09/22/20 04:00 Mechanical Ventilator Mechanical Ventilator 09/22/20 04:00 30 09/22/20 04:00 98.1 78 19 114/70 (85) 100 09/22/20 03:33 72 09/22/20 02:50 78 19 30 09/22/20 00:00 30 09/22/20 00:00 Mechanical Ventilator Mechanical Ventilator 09/22/20 00:00 98.2 82 22 123/55 (77) 98 09/21/20 23:44 70 09/21/20 23:19 79 22 30 09/21/20 20:00 98.6 79 20 125/70 (88) 99 09/21/20 20:00 Mechanical Ventilator Mechanical Ventilator 09/21/20 20:00 30 09/21/20 19:30 80 21 30 09/21/20 19:03 80 09/21/20 16:00 30 09/21/20 16:00 Mechanical Ventilator Mechanical Ventilator 09/21/20 16:00 98.8 78 21 129/61 (83) 100 09/21/20 15:20 85 09/21/20 14:50 80 22 30 09/21/20 12:00 Mechanical Ventilator Mechanical Ventilator 09/21/20 12:00 30 09/21/20 11:51 98.2 81 20 137/71 (93) 98 09/21/20 11:43 84 09/21/20 10:38 84 21 30 Intake and Output 09/21/20 09/22/20 19:00 07:00 Intake Total 1430.000 ml 760 ml Output Total 300 ml 575 ml Balance 1130.000 ml 185 ml Free Water 200 ml 100 ml IV Total 630.000 ml 410 ml Tube Feeding 600 ml 250 ml Output Urine Total 300 ml 575 ml # Bowel Movements 2 1 Laboratory Tests 09/21/20 15:02: POC Whole Blood Glucose [Pending] 09/21/20 18:02: POC Whole Blood Glucose 86 12/23/20 19:10: White Blood Count 16.5H, Red Blood Count 3.06L, Hemoglobin 9.4L, Hematocrit 28.6L, Mean Corpuscular Volume 94, Mean Corpuscular Hemoglobin 30.7, Mean Corpuscular Hemoglobin Concent 32.8, Red Cell Distribution Width 17.5H, Platelet Count 155, Mean Platelet Volume 8.9, Neutrophils (%) (Auto) , Lymphocytes (%) (Auto) , Monocytes (%) (Auto) , Eosinophils (%) (Auto) , Basophils (%) (Auto) , Differential Total Cells Counted 100, Neutrophils % (Manual) 48, Lymphocytes % (Manual) 15L, Monocytes % (Manual) 5, Eosinophils % (Manual) 32H, Basophils % (Manual) 0, Band Neutrophils 0, Platelet Estimate Adequate, Platelet Morphology Normal, Hypochromasia 1+, Anisocytosis 1+, Prothrombin Time 12.0H, Prothromb Time International Ratio 1.1, Activated Partial Thromboplast Time 27, Sodium Level 143, Potassium Level 4.8, Chloride Level 112H, Carbon Dioxide Level 28, Anion Gap 4L, Blood Urea Nitrogen 22H, Creatinine 0.7, Estimat Glomerular Filtration Rate > 60, Glucose Level 107H, Calcium Level 9.6, Total Bilirubin 0.4, Aspartate Amino Transf (AST/SGOT) 10L, Alanine Aminotransferase (ALT/SGPT) 12, Alkaline Phosphatase 149H, Total Protein 7.3, Albumin 2.4L, Globulin 4.9, Albumin/Globulin Ratio 0.5L 09/22/20 06:07: POC Whole Blood Glucose 86 Height (Feet): 5 Height (Inches): 3.00 Weight (Pounds): 145 Objective debilitated Elderly woman on vent NCAT neck (+) trach coarse BS RR abd soft , flat, GT site without a significant discharge or drainage no edema, (++) contractures Assessment/Plan Status: progressing Assessment/Plan: Assessment - GT site drainage/discharge - resolved - mildly elevated alk phos - possibly vitamin D related - OBS - Resp failure, s/p Trach - s/p PEG for dysphagia, - Parkinsons - Schizophrenia - h/o decub ulcers - Severe anemia Recommendations - check vitamin D - GT care - Elevate HOB - monitor labs - EGD with GT change today Tana Romano MD Sep 22, 2020 08:45
--- NOTE | 2020-09-22 08:46 | Pre-Procedure Note/Attestation ---
Pre-Procedure Note/Attestation Complete Prior to Procedure Planned Procedure: not applicable Procedure Narrative: endoscopy with possible biopsy, polypectomy hemostasis, and gastrostomy tube placement Attestation I attest that I discussed the nature of the procedure; its benefits; risks and complications; and alternatives (and the risks and benefits of such alternatives), prior to the procedure, with the patient (or the patient's legal vendor representatives). I attest that, if there was a reasonable possibility of needing a blood transfusion, the patient (or the patient's legal vendor representatives) was given the [facility] standardized written summary, pursuant to the [place] Blood Safety Act ([place] Health and Safety Code # 1645, as amended). I attest that I re-evaluated the patient just prior to the surgery and that there has been no change in the patient's H&P, except as documented below: Tana Romano MD Sep 22, 2020 08:46
--- NOTE | 2020-09-22 09:16 | NUR ---
NURSE NOTES: G tube change finished now and pt tolerated well, pt is sleeping, no stress noted. per Dr Romano start g tube feeding now, noted and carried out. will continue to monitor.
--- NOTE | 2020-09-22 09:18 | Anethesia Preoperative Eval ---
Anesthesia Pre-op PMH/ROS General Date of Evaluation: Sep 22, 2020 Time of Evaluation: 08:32 Anesthesiologist: Lucy ASA Score: ASA 4 Mallampati Score Class I : Soft palate, uvula, fauces, pillars visible Class II: Soft palate, uvula, fauces visible Class III: Soft palate, base of uvula visible Class IV: Only hard plate visible Mallampati Classification: Class III - trach in place Surgeon: Abdias Diagnosis: malfunctioning feeding tube Surgical Procedure: EGD PEG Anesthesia History: none Family History: no anesthesia problems Allergies: Coded Allergies: No Known Allergies (Unverified , 11/22/15) Medications: see eMAR Patient NPO?: Yes Past Medical History Cardiovascular: Reports: arrhythmia - h/o dilcia Pulmonary: Reports: other - respiratory failure vent dependent; Denies: asthma, COPD, AGUSTINA Gastrointestinal/Genitourinary: Reports: CRI, other - recurrent UTI; Denies: GERD, ESRD Neurologic/Psychiatric: Reports: dementia, CVA, other - schizophrenia, Parkinsons dementia; Denies: depression/anxiety, TIA Endocrine: Reports: hypothyroidism; Denies: DM, steroids, other HEENT: Denies: cataract (L), cataract (R), glaucoma, [place] (L), [place] (R), other Hematology/Immune: Reports: anemia - of chronic d-s; Denies: DVT, bleeding disorder, other Musculoskeletal/Integumentary: Reports: other - contructed; Denies: OA, RA, DJD, DDD, edema PMH Narrative: as above PSxH Narrative: see H&P Anesthesia Pre-op Phys. Exam Physician Exam Last Vital Signs Date Time Temp Pulse Resp B/P (MAP) Pulse Ox O2 Delivery O2 Flow Rate FiO2 09/22/20 08:00 30 09/22/20 07:50 Mechanical Ventilator Mechanical Ventilator 09/22/20 04:00 98.1 78 19 114/70 (85) 100 09/15/20 23:00 50.0 Constitutional: NAD Neurologic: other - unable to obtaine Cardiovascular: RRR Respiratory: other - diminished breath sounds Gastrointestinal: S/NT/ND Airway Exam Mallampati Score: Class III MO: limited Neck: stiff ROM: limited Teeth: missing Dentures: no upper, no lower Anesthesia Pre-op A/P Labs Hematology Test 09/21/20 19:10 White Blood Count 16.5 K/UL (4.8-10.8) H Red Blood Count 3.06 M/UL (4.20-5.40) L Hemoglobin 9.4 G/DL (12.0-16.0) L Hematocrit 28.6 % (37.0-47.0) L Mean Corpuscular Volume 94 FL (80-99) Mean Corpuscular Hemoglobin 30.7 PG (27.0-31.0) Mean Corpuscular Hemoglobin Concent 32.8 G/DL (32.0-36.0) Red Cell Distribution Width 17.5 % (11.6-14.8) H Platelet Count 155 K/UL (150-450) Mean Platelet Volume 8.9 FL (6.5-10.1) Neutrophils (%) (Auto) % (45.0-75.0) Lymphocytes (%) (Auto) % (20.0-45.0) Monocytes (%) (Auto) % (1.0-10.0) Eosinophils (%) (Auto) % (0.0-3.0) Basophils (%) (Auto) % (0.0-2.0) Differential Total Cells Counted 100 Neutrophils % (Manual) 48 % (45-75) Lymphocytes % (Manual) 15 % (20-45) L Monocytes % (Manual) 5 % (1-10) Eosinophils % (Manual) 32 % (0-3) H Basophils % (Manual) 0 % (0-2) Band Neutrophils 0 % (0-8) Platelet Estimate Adequate Platelet Morphology Normal Hypochromasia 1+ Anisocytosis 1+ Coagulation Test 09/21/20 19:10 Prothrombin Time 12.0 SEC (9.30-11.50) H Prothromb Time International Ratio 1.1 (0.9-1.1) Activated Partial Thromboplast Time 27 SEC (23-33) Chemistry Test 09/21/20 15:02 09/21/20 18:02 09/21/20 19:10 09/22/20 06:07 POC Whole Blood Glucose Pending 86 MG/DL (74-106) 86 MG/DL (74-106) Sodium Level 143 MMOL/L (136-145) Potassium Level 4.8 MMOL/L (3.5-5.1) Chloride Level 112 MMOL/L (98-107) H Carbon Dioxide Level 28 MMOL/L (21-32) Anion Gap 4 mmol/L (5-15) L Blood Urea Nitrogen 22 mg/dL (7-18) H Creatinine 0.7 MG/DL (0.55-1.30) Estimat Glomerular Filtration Rate > 60 mL/min (>60) Glucose Level 107 MG/DL (74-106) H Calcium Level 9.6 MG/DL (8.5-10.1) Total Bilirubin 0.4 MG/DL (0.2-1.0) Aspartate Amino Transf (AST/SGOT) 10 U/L (15-37) L Alanine Aminotransferase (ALT/SGPT) 12 U/L (12-78) Alkaline Phosphatase 149 U/L (46-116) H Total Protein 7.3 G/DL (6.4-8.2) Albumin 2.4 G/DL (3.4-5.0) L Globulin 4.9 g/dL Albumin/Globulin Ratio 0.5 (1.0-2.7) L Risk Assessment & Plan Assessment: ASA 4 Plan: MAC Status Change Before Surgery: No Pre-Antibiotics Drug: As scheduled Neil Ayala MD Sep 22, 2020 09:18
--- NOTE | 2020-09-22 09:20 | Immediate Post-Op Evaluation ---
Immediate Post-Op Evalulation Immediate Post-Op Evalulation Procedure: EGD PEG tube replacement Date of Evaluation: Sep 22, 2020 Time of Evaluation: 09:19 IV Fluids: 100 Blood Products: none Estimated Blood Loss: none Urinary Output: n/a Blood Pressure Systolic: 102 Blood Pressure Diastolic: 58 Pulse Rate: 84 Respiratory Rate: 20 O2 Sat by Pulse Oximetry: 98 Temperature (Fahrenheit): 97.6 Pain Score (1-10): 1 Nausea: No Vomiting: No Complications none Patient Status: no response, ventilated, none Hydration Status: adequate Neil Ayala MD Sep 22, 2020 09:20
--- NOTE | 2020-09-22 09:28 | 48 Hour Post Anesthesia Eval ---
Post Anesthesia Evaluation Procedure: EGD PEG tube replacement Date of Evaluation: Sep 22, 2020 Time of Evaluation: 09:26 Blood Pressure Systolic: 98 0: 56 Pulse Rate: 82 Respiratory Rate: 18 Temperature (Fahrenheit): 97.6 O2 Sat by Pulse Oximetry: 98 Airway: other - vent dependent Nausea: No Vomiting: No Pain Intensity: 1 Hydration Status: adequate Cardiopulmonary Status: stable Mental Status/LOC: patient returned to baseline Follow-up Care/Observations: n/a Post-Anesthesia Complications: none Follow-up care needed: N/A Neil Ayala MD Sep 22, 2020 09:28
[2020-09-22] MEDS ORDERED: NS 275ml ONE (10:12)
[2020-09-22] MEDS ORDERED: Tubing IV Secondary IV ONE (10:12)
[2020-09-22 12:00] VITALS: BP 131/65
--- NOTE | 2020-09-22 12:33 | Cardiac Electrophysiology PN ---
Assessment/Plan Assessment/Plan 1. Hypertension, currently blood pressure stable. On p.r.n. Hydralazine and clonidine 2. VDRF status post tracheostomy on 30% FiO2, in sinus rhythm. COVID was negative. 3. Severe anemia, hemoglobin 7.5. S/P blood transfusion. Etiology is not clear at this time, but creatinine is within normal range. 4. Elevated BNP of more than 4000. Echo EF 65% 5. Dysphagia, status post PEG replacement today 09/22/20. DW RN Awaiting placement Subjective Subjective Off covid isolation. GT replaced today On the Vent with 30% Fio2 off restraints. Objective Last 24 Hour Vital Signs Date Time Temp Pulse Resp B/P (MAP) Pulse Ox O2 Delivery O2 Flow Rate FiO2 09/22/20 09:28 82 18 98 09/22/20 09:20 84 20 98 09/22/20 08:10 64 09/22/20 08:00 30 09/22/20 08:00 98.2 71 21 139/77 (97) 99 09/22/20 07:50 Mechanical Ventilator Mechanical Ventilator 09/22/20 04:00 Mechanical Ventilator Mechanical Ventilator 09/22/20 04:00 30 09/22/20 04:00 98.1 78 19 114/70 (85) 100 09/22/20 03:33 72 09/22/20 02:50 78 19 30 09/22/20 00:00 30 09/22/20 00:00 Mechanical Ventilator Mechanical Ventilator 09/22/20 00:00 98.2 82 22 123/55 (77) 98 09/21/20 23:44 70 09/21/20 23:19 79 22 30 09/21/20 20:00 98.6 79 20 125/70 (88) 99 09/21/20 20:00 Mechanical Ventilator Mechanical Ventilator 09/21/20 20:00 30 09/21/20 19:30 80 21 30 09/21/20 19:03 80 09/21/20 16:00 30 09/21/20 16:00 Mechanical Ventilator Mechanical Ventilator 09/21/20 16:00 98.8 78 21 129/61 (83) 100 09/21/20 15:20 85 09/21/20 14:50 80 22 30 Intake and Output 09/21/20 09/22/20 19:00 07:00 Intake Total 1430.000 ml 760 ml Output Total 300 ml 575 ml Balance 1130.000 ml 185 ml Free Water 200 ml 100 ml IV Total 630.000 ml 410 ml Tube Feeding 600 ml 250 ml Output Urine Total 300 ml 575 ml # Bowel Movements 2 1 Laboratory Tests Test 09/21/20 15:02 09/21/20 18:02 09/21/20 19:10 09/22/20 06:07 POC Whole Blood Glucose Pending 86 MG/DL (74-106) 86 MG/DL (74-106) White Blood Count 16.5 K/UL (4.8-10.8) H Red Blood Count 3.06 M/UL (4.20-5.40) L Hemoglobin 9.4 G/DL (12.0-16.0) L Hematocrit 28.6 % (37.0-47.0) L Mean Corpuscular Volume 94 FL (80-99) Mean Corpuscular Hemoglobin 30.7 PG (27.0-31.0) Mean Corpuscular Hemoglobin Concent 32.8 G/DL (32.0-36.0) Red Cell Distribution Width 17.5 % (11.6-14.8) H Platelet Count 155 K/UL (150-450) Mean Platelet Volume 8.9 FL (6.5-10.1) Neutrophils (%) (Auto) % (45.0-75.0) Lymphocytes (%) (Auto) % (20.0-45.0) Monocytes (%) (Auto) % (1.0-10.0) Eosinophils (%) (Auto) % (0.0-3.0) Basophils (%) (Auto) % (0.0-2.0) Differential Total Cells Counted 100 Neutrophils % (Manual) 48 % (45-75) Lymphocytes % (Manual) 15 % (20-45) L Monocytes % (Manual) 5 % (1-10) Eosinophils % (Manual) 32 % (0-3) H Basophils % (Manual) 0 % (0-2) Band Neutrophils 0 % (0-8) Platelet Estimate Adequate Platelet Morphology Normal Hypochromasia 1+ Anisocytosis 1+ Prothrombin Time 12.0 SEC (9.30-11.50) H Prothromb Time International Ratio 1.1 (0.9-1.1) Activated Partial Thromboplast Time 27 SEC (23-33) Sodium Level 143 MMOL/L (136-145) Potassium Level 4.8 MMOL/L (3.5-5.1) Chloride Level 112 MMOL/L (98-107) H Carbon Dioxide Level 28 MMOL/L (21-32) Anion Gap 4 mmol/L (5-15) L Blood Urea Nitrogen 22 mg/dL (7-18) H Creatinine 0.7 MG/DL (0.55-1.30) Estimat Glomerular Filtration Rate > 60 mL/min (>60) Glucose Level 107 MG/DL (74-106) H Calcium Level 9.6 MG/DL (8.5-10.1) Total Bilirubin 0.4 MG/DL (0.2-1.0) Aspartate Amino Transf (AST/SGOT) 10 U/L (15-37) L Alanine Aminotransferase (ALT/SGPT) 12 U/L (12-78) Alkaline Phosphatase 149 U/L (46-116) H Total Protein 7.3 G/DL (6.4-8.2) Albumin 2.4 G/DL (3.4-5.0) L Globulin 4.9 g/dL Albumin/Globulin Ratio 0.5 (1.0-2.7) L Objective HEAD AND NECK: No JVD.S/P Trach LUNGS: Coarse rhonchi. CARDIOVASCULAR: Regular S1 and S2 with no gallop. ABDOMEN: Status post PEG. EXTREMITIES: 1+ pitting edema. Flex Bess MD Sep 22, 2020 12:33
--- NOTE | 2020-09-22 12:37 | Infectious Diseases Prog Note ---
Assessment/Plan Assessment/Plan IMPRESSION: VRE sepsis ( Amp sensitive) Gram positive bacteremia Serratia, Pseudomonas & Stenotrophomonas pneumonia, E coli UTI, Ventilator-dependent respiratory failure, Quadriplegia, Stage IV sacral ulcer, COPD, Iron deficiency anemia, Hypertension, history of atrial fibrillation. Negative COVI19 tests RECOMMENDATION: Continue Meropenem , Bactrim & Linezolid Subjective ROS Limited/Unobtainable: Yes Constitutional: Denies: fever Allergies: Coded Allergies: No Known Allergies (Unverified , 11/22/15) Objective Last 24 Hour Vital Signs Date Time Temp Pulse Resp B/P (MAP) Pulse Ox O2 Delivery O2 Flow Rate FiO2 09/22/20 12:00 Mechanical Ventilator Mechanical Ventilator 09/22/20 12:00 30 09/22/20 09:28 82 18 98 09/22/20 09:20 84 20 98 09/22/20 08:10 64 09/22/20 08:00 30 09/22/20 08:00 98.2 71 21 139/77 (97) 99 09/22/20 07:50 Mechanical Ventilator Mechanical Ventilator 09/22/20 04:00 Mechanical Ventilator Mechanical Ventilator 09/22/20 04:00 30 09/22/20 04:00 98.1 78 19 114/70 (85) 100 09/22/20 03:33 72 09/22/20 02:50 78 19 30 09/22/20 00:00 30 09/22/20 00:00 Mechanical Ventilator Mechanical Ventilator 09/22/20 00:00 98.2 82 22 123/55 (77) 98 09/21/20 23:44 70 09/21/20 23:19 79 22 30 09/21/20 20:00 98.6 79 20 125/70 (88) 99 09/21/20 20:00 Mechanical Ventilator Mechanical Ventilator 09/21/20 20:00 30 09/21/20 19:30 80 21 30 09/21/20 19:03 80 09/21/20 16:00 30 09/21/20 16:00 Mechanical Ventilator Mechanical Ventilator 09/21/20 16:00 98.8 78 21 129/61 (83) 100 09/21/20 15:20 85 09/21/20 14:50 80 22 30 Height (Feet): 5 Height (Inches): 3.00 Weight (Pounds): 145 HEENT: status post trach Respiratory/Chest: lungs clear, other - on ventilator Cardiovascular: normal rate Abdomen: soft, non tender, other - GT feeding Skin: rash Neurologic/Psychiatric: aphasia Laboratory Tests Test 09/21/20 15:02 09/21/20 18:02 09/21/20 19:10 09/22/20 06:07 POC Whole Blood Glucose Pending 86 MG/DL (74-106) 86 MG/DL (74-106) White Blood Count 16.5 K/UL (4.8-10.8) H Red Blood Count 3.06 M/UL (4.20-5.40) L Hemoglobin 9.4 G/DL (12.0-16.0) L Hematocrit 28.6 % (37.0-47.0) L Mean Corpuscular Volume 94 FL (80-99) Mean Corpuscular Hemoglobin 30.7 PG (27.0-31.0) Mean Corpuscular Hemoglobin Concent 32.8 G/DL (32.0-36.0) Red Cell Distribution Width 17.5 % (11.6-14.8) H Platelet Count 155 K/UL (150-450) Mean Platelet Volume 8.9 FL (6.5-10.1) Neutrophils (%) (Auto) % (45.0-75.0) Lymphocytes (%) (Auto) % (20.0-45.0) Monocytes (%) (Auto) % (1.0-10.0) Eosinophils (%) (Auto) % (0.0-3.0) Basophils (%) (Auto) % (0.0-2.0) Differential Total Cells Counted 100 Neutrophils % (Manual) 48 % (45-75) Lymphocytes % (Manual) 15 % (20-45) L Monocytes % (Manual) 5 % (1-10) Eosinophils % (Manual) 32 % (0-3) H Basophils % (Manual) 0 % (0-2) Band Neutrophils 0 % (0-8) Platelet Estimate Adequate Platelet Morphology Normal Hypochromasia 1+ Anisocytosis 1+ Prothrombin Time 12.0 SEC (9.30-11.50) H Prothromb Time International Ratio 1.1 (0.9-1.1) Activated Partial Thromboplast Time 27 SEC (23-33) Sodium Level 143 MMOL/L (136-145) Potassium Level 4.8 MMOL/L (3.5-5.1) Chloride Level 112 MMOL/L (98-107) H Carbon Dioxide Level 28 MMOL/L (21-32) Anion Gap 4 mmol/L (5-15) L Blood Urea Nitrogen 22 mg/dL (7-18) H Creatinine 0.7 MG/DL (0.55-1.30) Estimat Glomerular Filtration Rate > 60 mL/min (>60) Glucose Level 107 MG/DL (74-106) H Calcium Level 9.6 MG/DL (8.5-10.1) Total Bilirubin 0.4 MG/DL (0.2-1.0) Aspartate Amino Transf (AST/SGOT) 10 U/L (15-37) L Alanine Aminotransferase (ALT/SGPT) 12 U/L (12-78) Alkaline Phosphatase 149 U/L (46-116) H Total Protein 7.3 G/DL (6.4-8.2) Albumin 2.4 G/DL (3.4-5.0) L Globulin 4.9 g/dL Albumin/Globulin Ratio 0.5 (1.0-2.7) L Current Medications Medications (Trade) Dose Ordered Sig/Alex Route PRN Reason Start Time Stop Time Status Last Admin Dose Admin Acetaminophen (Tylenol) 500 mg Q4H PRN ORAL Temp >100.5 09/15/20 23:15 10/15/20 23:14 09/21/20 05:30 Acetaminophen (Tylenol) 500 mg Q4H PRN ORAL Mild Pain (Pain Scale 1-3) 09/15/20 23:15 10/15/20 23:14 09/21/20 17:44 Ascorbic Acid (Vitamin C) 250 mg TWICE A DAY ORAL 09/19/20 18:00 10/19/20 17:59 09/22/20 08:09 Clonidine HCl (Catapres Tab) 0.1 mg Q2H PRN GT For High Blood Pressure 09/17/20 17:00 12/16/20 16:59 Hydralazine HCl (Apresoline) 10 mg Q2H PRN IV For High Blood Pressure 09/17/20 17:00 12/16/20 16:59 Linezolid 300 ml @ 300 mls/hr Q12HR IVPB 09/21/20 13:00 09/28/20 12:59 09/22/20 08:14 Meropenem 1 gm/ Sodium Chloride 55 ml @ 110 mls/hr Q8HR IVPB 09/20/20 11:00 09/25/20 10:59 09/22/20 05:11 Multivitamins (Multivitamins) 1 tab DAILY ORAL 09/20/20 09:00 10/20/20 08:59 09/22/20 08:09 Pantoprazole (Protonix) 40 mg EVERY 12 HOURS IVP 09/17/20 14:15 10/17/20 14:14 09/22/20 08:09 Trimethoprim/ Sulfamethoxazole (Bactrim-DS) 10 ml EVERY 12 HOURS GT 09/20/20 11:00 09/27/20 10:59 09/22/20 08:09 Zinc Sulfate (Zinc Sulfate) 220 mg DAILY ORAL 09/20/20 09:00 09/30/20 08:59 09/22/20 08:09 Mahesh Nicole MD Sep 22, 2020 12:37
--- NOTE | 2020-09-22 13:11 | General Progress Note ---
Subjective ROS Limited/Unobtainable: Yes Allergies: Coded Allergies: No Known Allergies (Unverified , 11/22/15) Objective Last 24 Hour Vital Signs Date Time Temp Pulse Resp B/P (MAP) Pulse Ox O2 Delivery O2 Flow Rate FiO2 09/22/20 12:02 66 09/22/20 12:00 Mechanical Ventilator Mechanical Ventilator 09/22/20 12:00 30 09/22/20 12:00 98.2 76 22 131/65 (87) 98 09/22/20 09:28 82 18 98 09/22/20 09:20 84 20 98 09/22/20 08:10 64 09/22/20 08:00 30 09/22/20 08:00 98.2 71 21 139/77 (97) 99 09/22/20 07:50 Mechanical Ventilator Mechanical Ventilator 09/22/20 04:00 Mechanical Ventilator Mechanical Ventilator 09/22/20 04:00 30 09/22/20 04:00 98.1 78 19 114/70 (85) 100 09/22/20 03:33 72 09/22/20 02:50 78 19 30 09/22/20 00:00 30 09/22/20 00:00 Mechanical Ventilator Mechanical Ventilator 09/22/20 00:00 98.2 82 22 123/55 (77) 98 09/21/20 23:44 70 09/21/20 23:19 79 22 30 09/21/20 20:00 98.6 79 20 125/70 (88) 99 09/21/20 20:00 Mechanical Ventilator Mechanical Ventilator 09/21/20 20:00 30 09/21/20 19:30 80 21 30 09/21/20 19:03 80 09/21/20 16:00 30 09/21/20 16:00 Mechanical Ventilator Mechanical Ventilator 09/21/20 16:00 98.8 78 21 129/61 (83) 100 09/21/20 15:20 85 09/21/20 14:50 80 22 30 Intake and Output 09/21/20 09/22/20 19:00 07:00 Intake Total 1430.000 ml 760 ml Output Total 300 ml 575 ml Balance 1130.000 ml 185 ml Free Water 200 ml 100 ml IV Total 630.000 ml 410 ml Tube Feeding 600 ml 250 ml Output Urine Total 300 ml 575 ml # Bowel Movements 2 1 Laboratory Tests 09/21/20 15:02: POC Whole Blood Glucose [Pending] 09/21/20 18:02: POC Whole Blood Glucose 86 09/21/20 19:10: White Blood Count 16.5H, Red Blood Count 3.06L, Hemoglobin 9.4L, Hematocrit 28.6L, Mean Corpuscular Volume 94, Mean Corpuscular Hemoglobin 30.7, Mean Corpuscular Hemoglobin Concent 32.8, Red Cell Distribution Width 17.5H, Platelet Count 155, Mean Platelet Volume 8.9, Neutrophils (%) (Auto) , Lymphocytes (%) (Auto) , Monocytes (%) (Auto) , Eosinophils (%) (Auto) , Basophils (%) (Auto) , Differential Total Cells Counted 100, Neutrophils % (Manual) 48, Lymphocytes % (Manual) 15L, Monocytes % (Manual) 5, Eosinophils % (Manual) 32H, Basophils % (Manual) 0, Band Neutrophils 0, Platelet Estimate Adequate, Platelet Morphology Normal, Hypochromasia 1+, Anisocytosis 1+, Prothrombin Time 12.0H, Prothromb Time International Ratio 1.1, Activated Partial Thromboplast Time 27, Sodium Level 143, Potassium Level 4.8, Chloride Level 112H, Carbon Dioxide Level 28, Anion Gap 4L, Blood Urea Nitrogen 22H, Creatinine 0.7, Estimat Glomerular Filtration Rate > 60, Glucose Level 107H, Calcium Level 9.6, Total Bilirubin 0.4, Aspartate Amino Transf (AST/SGOT) 10L, Alanine Aminotransferase (ALT/SGPT) 12, Alkaline Phosphatase 149H, Total Protein 7.3, Albumin 2.4L, Globulin 4.9, Albumin/Globulin Ratio 0.5L 09/22/20 06:07: POC Whole Blood Glucose 86 Height (Feet): 5 Height (Inches): 3.00 Weight (Pounds): 145 Assessment/Plan Problem List: (1) Hypothyroidism ICD Codes: E03.9 - Hypothyroidism, unspecified SNOMED: 20268881 (2) Chronic respiratory failure ICD Codes: J96.10 - Chronic respiratory failure, unspecified whether with hypoxia or hypercapnia SNOMED: 15822457 (3) Functional quadriplegia ICD Codes: R53.2 - Functional quadriplegia SNOMED: 279720355635999 (4) Protein calorie malnutrition ICD Codes: E46 - Unspecified protein-calorie malnutrition SNOMED: 658054742 (5) Failure to thrive (child) ICD Codes: R62.51 - Failure to thrive (child) SNOMED: 299023012 (6) Sacral decubitus ulcer ICD Codes: L89.159 - Pressure ulcer of sacral region, unspecified stage SNOMED: 524799864 (7) Tracheostomy dependence ICD Codes: Z93.0 - Tracheostomy status SNOMED: 399656995 (8) Sepsis ICD Codes: A41.9 - Sepsis, unspecified organism SNOMED: 26777510 (9) Anemia ICD Codes: D64.9 - Anemia, unspecified SNOMED: 647355492 Qualifiers: Qualified Codes: D64.9 - Anemia, unspecified (10) UTI (urinary tract infection) ICD Codes: N39.0 - Urinary tract infection, site not specified SNOMED: 17854558 Qualifiers: Qualified Codes: N39.0 - Urinary tract infection, site not specified Status: progressing Assessment/Plan: trach and peg pna sepsis abx per id no change resp insuff on high oxygen Sandeep Oneil MD Sep 22, 2020 13:11
--- NOTE | 2020-09-22 13:55 | Pulmonology Progress Note ---
Subjective ROS Limited/Unobtainable: Yes Interval Events: None new Constitutional: Denies: fever HEENT: Repors: no symptoms Respiratory: Reports: no symptoms Cardiovascular: Reports: no symptoms Gastrointestinal/Abdominal: Reports: no symptoms Genitourinary: Reports: no symptoms Allergies: Coded Allergies: No Known Allergies (Unverified , 11/22/15) Objective Last 24 Hour Vital Signs Date Time Temp Pulse Resp B/P (MAP) Pulse Ox O2 Delivery O2 Flow Rate FiO2 09/22/20 12:02 66 09/22/20 12:00 Mechanical Ventilator Mechanical Ventilator 09/22/20 12:00 30 09/22/20 12:00 98.2 76 22 131/65 (87) 98 09/22/20 09:28 82 18 98 09/22/20 09:20 84 20 98 09/22/20 08:10 64 09/22/20 08:00 30 09/22/20 08:00 98.2 71 21 139/77 (97) 99 09/22/20 07:50 Mechanical Ventilator Mechanical Ventilator 09/22/20 04:00 Mechanical Ventilator Mechanical Ventilator 09/22/20 04:00 30 09/22/20 04:00 98.1 78 19 114/70 (85) 100 09/22/20 03:33 72 09/22/20 02:50 78 19 30 09/22/20 00:00 30 09/22/20 00:00 Mechanical Ventilator Mechanical Ventilator 09/22/20 00:00 98.2 82 22 123/55 (77) 98 09/21/20 23:44 70 09/21/20 23:19 79 22 30 09/21/20 20:00 98.6 79 20 125/70 (88) 99 09/21/20 20:00 Mechanical Ventilator Mechanical Ventilator 09/21/20 20:00 30 09/21/20 19:30 80 21 30 09/21/20 19:03 80 09/21/20 16:00 30 09/21/20 16:00 Mechanical Ventilator Mechanical Ventilator 09/21/20 16:00 98.8 78 21 129/61 (83) 100 09/21/20 15:20 85 09/21/20 14:50 80 22 30 Intake and Output 09/21/20 09/22/20 19:00 07:00 Intake Total 1430.000 ml 760 ml Output Total 300 ml 575 ml Balance 1130.000 ml 185 ml Free Water 200 ml 100 ml IV Total 630.000 ml 410 ml Tube Feeding 600 ml 250 ml Output Urine Total 300 ml 575 ml # Bowel Movements 2 1 General Appearance: no acute distress HEENT: normocephalic, atraumatic, status post trach Respiratory: chest wall non-tender, lungs clear, other - coarse rhonchi Cardiovascular: normal rate, regular rhythm Abdomen: normal bowel sounds, distended Laboratory Tests 09/21/20 15:02: POC Whole Blood Glucose [Pending] 09/21/20 18:02: POC Whole Blood Glucose 86 09/21/20 19:10: White Blood Count 16.5H, Red Blood Count 3.06L, Hemoglobin 9.4L, Hematocrit 28.6L, Mean Corpuscular Volume 94, Mean Corpuscular Hemoglobin 30.7, Mean Corpu scular Hemoglobin Concent 32.8, Red Cell Distribution Width 17.5H, Platelet Count 155, Mean Platelet Volume 8.9, Neutrophils (%) (Auto) , Lymphocytes (%) (Auto) , Monocytes (%) (Auto) , Eosinophils (%) (Auto) , Basophils (%) (Auto) , Differential Total Cells Counted 100, Neutrophils % (Manual) 48, Lymphocytes % (Manual) 15L, Monocytes % (Manual) 5, Eosinophils % (Manual) 32H, Basophils % (Manual) 0, Band Neutrophils 0, Platelet Estimate Adequate, Platelet Morphology Normal, Hypochromasia 1+, Anisocytosis 1+, Prothrombin Time 12.0H, Prothromb Time International Ratio 1.1, Activated Partial Thromboplast Time 27, Sodium Level 143, Potassium Level 4.8, Chloride Level 112H, Carbon Dioxide Level 28, Anion Gap 4L, Blood Urea Nitrogen 22H, Creatinine 0.7, Estimat Glomerular Filtration Rate > 60, Glucose Level 107H, Calcium Level 9.6, Total Bilirubin 0. 4, Aspartate Amino Transf (AST/SGOT) 10L, Alanine Aminotransferase (ALT/SGPT) 12, Alkaline Phosphatase 149H, Total Protein 7.3, Albumin 2.4L, Globulin 4.9, Albumin/Globulin Ratio 0.5L 09/22/20 06:07: POC Whole Blood Glucose 86 Current Medications Medications (Trade) Dose Ordered Sig/Alex Route PRN Reason Start Time Stop Time Status Last Admin Dose Admin Acetaminophen (Tylenol) 500 mg Q4H PRN ORAL Temp >100.5 09/15/20 23:15 10/15/20 23:14 09/21/20 05:30 Acetaminophen (Tylenol) 500 mg Q4H PRN ORAL Mild Pain (Pain Scale 1-3) 09/15/20 23:15 10/15/20 23:14 09/21/20 17:44 Ascorbic Acid (Vitamin C) 250 mg TWICE A DAY ORAL 09/19/20 18:00 10/19/20 17:59 09/22/20 08:09 Clonidine HCl (Catapres Tab) 0.1 mg Q2H PRN GT For High Blood Pressure 09/17/20 17:00 12/16/20 16:59 Hydralazine HCl (Apresoline) 10 mg Q2H PRN IV For High Blood Pressure 09/17/20 17:00 12/16/20 16:59 Linezolid 300 ml @ 300 mls/hr Q12HR IVPB 09/21/20 13:00 09/28/20 12:59 09/22/20 08:14 Meropenem 1 gm/ Sodium Chloride 55 ml @ 110 mls/hr Q8HR IVPB 09/20/20 11:00 09/25/20 10:59 09/22/20 13:27 Multivitamins (Multivitamins) 1 tab DAILY ORAL 09/20/20 09:00 10/20/20 08:59 09/22/20 08:09 Pantoprazole (Protonix) 40 mg EVERY 12 HOURS IVP 09/17/20 14:15 10/17/20 14:14 09/22/20 08:09 Trimethoprim/ Sulfamethoxazole (Bactrim-DS) 10 ml EVERY 12 HOURS GT 09/20/20 11:00 09/27/20 10:59 09/22/20 08:09 Zinc Sulfate (Zinc Sulfate) 220 mg DAILY ORAL 09/20/20 09:00 09/30/20 08:59 09/22/20 08:09 Assessment/Plan Assessment/Plan 1. Anemia, likely iron deficiency. - On IV iron. - s/p transfusion per Dr. Cazares. - Anemia workup ordered per Dr. Cazares. 2. Interstitial infiltrates, has pneumonia. - Sputum -> Serratia - Antibiotics per ID. - Continue supplemental oxygen; continue ventilator, AC mode.FiO2 30% 3. Sepsis. - Antibiotics per ID. Gm neg rods in sputum CS; confirmed Serratia 4. History of fever. - Currently afebrile. 5. Possible COVID-19 infection. - Swab COVID-19 test negative. - Repeat PCR COVID-19 also negative 6. CHF. - 2D echocardiogram ordered per Cardio. 7. UTI. - On antibiotics. Has ESBL E. Coli 8. Elevated D-dimer. 9. DVT prophylaxis. - Venous duplex ultrasound negative. - on SCD 10. Chronic Respiratory Failure; continue vent; AC mode The history of Jennifer Gao has been reviewed and management options for her have been examined and discussed by Mino Childs. I have personally examined and interviewed the patient. Mino Childs MD Sep 22, 2020 13:54
--- NOTE | 2020-09-22 14:02 | Surgery Progress Note ---
Surgery Progress Note Subjective Symptoms: improved, tolerating diet, passing flatus Objective Last 24 Hour Vital Signs Date Time Temp Pulse Resp B/P (MAP) Pulse Ox O2 Delivery O2 Flow Rate FiO2 09/22/20 12:02 66 09/22/20 12:00 Mechanical Ventilator Mechanical Ventilator 09/22/20 12:00 30 09/22/20 12:00 98.2 76 22 131/65 (87) 98 09/22/20 09:28 82 18 98 09/22/20 09:20 84 20 98 09/22/20 08:10 64 09/22/20 08:00 30 09/22/20 08:00 98.2 71 21 139/77 (97) 99 09/22/20 07:50 Mechanical Ventilator Mechanical Ventilator 09/22/20 04:00 Mechanical Ventilator Mechanical Ventilator 09/22/20 04:00 30 09/22/20 04:00 98.1 78 19 114/70 (85) 100 09/22/20 03:33 72 09/22/20 02:50 78 19 30 09/22/20 00:00 30 09/22/20 00:00 Mechanical Ventilator Mechanical Ventilator 09/22/20 00:00 98.2 82 22 123/55 (77) 98 09/21/20 23:44 70 09/21/20 23:19 79 22 30 09/21/20 20:00 98.6 79 20 125/70 (88) 99 09/21/20 20:00 Mechanical Ventilator Mechanical Ventilator 09/21/20 20:00 30 09/21/20 19:30 80 21 30 09/21/20 19:03 80 09/21/20 16:00 30 09/21/20 16:00 Mechanical Ventilator Mechanical Ventilator 09/21/20 16:00 98.8 78 21 129/61 (83) 100 09/21/20 15:20 85 09/21/20 14:50 80 22 30 I&O Intake and Output 09/21/20 09/22/20 19:00 07:00 Intake Total 1430.000 ml 760 ml Output Total 300 ml 575 ml Balance 1130.000 ml 185 ml Free Water 200 ml 100 ml IV Total 630.000 ml 410 ml Tube Feeding 600 ml 250 ml Output Urine Total 300 ml 575 ml # Bowel Movements 2 1 Dressing: saturated Cardiovascular: RSR Respiratory: decreased breath sounds Abdomen: non-tender, present bowel sounds, non-distended Extremities: no edema, no tenderness, no cyanosis Laboratory Tests Test 09/21/20 15:02 09/21/20 18:02 09/21/20 19:10 09/22/20 06:07 POC Whole Blood Glucose Pending 86 MG/DL (74-106) 86 MG/DL (74-106) White Blood Count 16.5 K/UL (4.8-10.8) H Red Blood Count 3.06 M/UL (4.20-5.40) L Hemoglobin 9.4 G/DL (12.0-16.0) L Hematocrit 28.6 % (37.0-47.0) L Mean Corpuscular Volume 94 FL (80-99) Mean Corpuscular Hemoglobin 30.7 PG (27.0-31.0) Mean Corpuscular Hemoglobin Concent 32.8 G/DL (32.0-36.0) Red Cell Distribution Width 17.5 % (11.6-14.8) H Platelet Count 155 K/UL (150-450) Mean Platelet Volume 8.9 FL (6.5-10.1) Neutrophils (%) (Auto) % (45.0-75.0) Lymphocytes (%) (Auto) % (20.0-45.0) Monocytes (%) (Auto) % (1.0-10.0) Eosinophils (%) (Auto) % (0.0-3.0) Basophils (%) (Auto) % (0.0-2.0) Differential Total Cells Counted 100 Neutrophils % (Manual) 48 % (45-75) Lymphocytes % (Manual) 15 % (20-45) L Monocytes % (Manual) 5 % (1-10) Eosinophils % (Manual) 32 % (0-3) H Basophils % (Manual) 0 % (0-2) Band Neutrophils 0 % (0-8) Platelet Estimate Adequate Platelet Morphology Normal Hypochromasia 1+ Anisocytosis 1+ Prothrombin Time 12.0 SEC (9.30-11.50) H Prothromb Time International Ratio 1.1 (0.9-1.1) Activated Partial Thromboplast Time 27 SEC (23-33) Sodium Level 143 MMOL/L (136-145) Potassium Level 4.8 MMOL/L (3.5-5.1) Chloride Level 112 MMOL/L (98-107) H Carbon Dioxide Level 28 MMOL/L (21-32) Anion Gap 4 mmol/L (5-15) L Blood Urea Nitrogen 22 mg/dL (7-18) H Creatinine 0.7 MG/DL (0.55-1.30) Estimat Glomerular Filtration Rate > 60 mL/min (>60) Glucose Level 107 MG/DL (74-106) H Calcium Level 9.6 MG/DL (8.5-10.1) Total Bilirubin 0.4 MG/DL (0.2-1.0) Aspartate Amino Transf (AST/SGOT) 10 U/L (15-37) L Alanine Aminotransferase (ALT/SGPT) 12 U/L (12-78) Alkaline Phosphatase 149 U/L (46-116) H Total Protein 7.3 G/DL (6.4-8.2) Albumin 2.4 G/DL (3.4-5.0) L Globulin 4.9 g/dL Albumin/Globulin Ratio 0.5 (1.0-2.7) L Plan Problems: (1) Pneumonia (2) Functional quadriplegia (3) Person under investigation for COVID-19 (4) Chronic respiratory failure (5) Dehydration (6) Hypernatremia (7) Hypothyroidism (8) Pyelonephritis (9) Protein calorie malnutrition Assessment & Plan: DAILY ESTIMATED NEEDS: Needs based on Wound, critical care 57.5kg abw 25-30 kcals/kg 7584-7609 total kcals 1.25-2 g protein/kg 72-115 g total protein 25-30 mL/kg 1877-1875 total fluid mLs NUTRITION DIAGNOSIS: * Increased kcal/prot needs R/T wound healing as evidenced by pt w/ h/o stage 4 sacral wound, eval is pending. * Swallowing difficulty R/T dysphagia, respiratory status as evidenced by pt is Trach and PEG dep. ENTERAL NUTRITION RECOMMENDATIONS: Glucerna 1.2 @ 55ml/hr x 24 hrs to provide 1320ml, 1584 kcal, 79g pro, 1063ml free H2O * As medically able, start Glucerna 1.2 @35ml/hr for 6 hrs, advance as tolerated q4-6 to goal. * Add TYRESE in 4oz water BID via PEG for wound healing * HOB over 30 degrees/ water flush per MD ADDITIONAL RECOMMENDATIONS: * Calibrated bedscale wt for accurate CBW * Wound healing: TYRESE BID, Vit C 250mg BID F/up w/ WC eval * Monitor lytes, replete as needed * Monitor BGs w/ TF-> bed side BG checks + NISS (10) Failure to thrive (child) (11) Sacral decubitus ulcer Assessment & Plan: Pt presented on admission with Tracheostomy, GT, and multiple Pressure injuries. No erythema or evidence of skin breakdown under tracheal collar. dry dark brown skin plaque noted at R lateral chest to R flank. Full thickness stage 4 Sacral Pressure Injury with undermined borders(L)2cm x (W)2cm x (D)2cm, undermining clockwise 11-3 by 2.3cm @3o'clock.Ability to accurately assess base of wound is not fully appreciated secondary to shape of wound. (+) Epibole along edges of wound. Silver Nitrate sticks application applied to Borders. Bone is palpable when probed.Small amt brown exudate noted. No odor noted. [place] Atrophic scar periwound. Resolving Pressure Injury R Ischium. [place] epithelial noted at base of wound. Intact serous Blister noted to [place]/upper L thigh. No erythema or changes in skin temp at affected site. Reabsorbing DTPI L Hallux. Base of Pressure injury is dark brown,dry without erythema,induration or fluctuance. L Heel is boggy with non-blanchable erythema. R Heel is boggy but blanchable. Tx.Plan: Cleanse Sacral wound with Saline. Loosely pack with Therahoney impregnated Kerlix.Apply Moisture Barrier Paste periwound. Cover with Optifoam drsg every 3 days and prn. Apply Moisture Barrier Paste to R Ischium. Cover with Optifoam drsg. Change every 3 days and prn. Apply Phytoplex Skin Nourishing lotion to Lateral R chest /R Flank Daily. Apply Cavilon Skin Barrier to R and L Heel. Cover each heel with Optifoam drsg.Change every 7 days and prn. Reposition at least every 2hours or as tolerated. Off-load heels with pillow. 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
[2020-09-22 16:00] VITALS: BP 144/62
--- NOTE | 2020-09-22 16:09 | NUR ---
NURSE NOTES: wound treatment done as order and pt tolerated well. gt dressing changed, no bleeding noted. will continue to monitor.
[2020-09-22] MEDS: Acetaminophen 500mg (ES) tab ORAL PRN (17:30)
--- NOTE | 2020-09-22 18:53 | Endoscopy Procedure Note ---
Endoscopy Procedure Note General Indication for Procedure: anemia, old GT Procedures Performed: EGD Operative Findings/Diagnosis: small tongue of gastric tissue above GEJ - bx Specimen: yes Pt Tolerated Procedure Well: Yes Estimated Blood Loss: none Anesthesia Anesthesiologist: See report Anesthesia: MAC Medications Medication Given: see anesthesia record Inserted Devices Implant(s) used?: No GI Core Measures 50 yrs or older w/o bx or poly: Not Applicable 10yrs. F/U recommended: Not Applicable Tana Romano MD Sep 22, 2020 18:53
--- NOTE | 2020-09-22 18:55 | Brief Operative Note ---
Immediate Post Operative Note Operative Note Chief Complaint: anemia, GT needs change Pre-op Diagnosis: anemia Procedure: EGD, Bx, GT change Surgeon: luan Anesthesiologist: Avila Anesthesia: MAC Specimen: yes Complications: none Condition: stable Fluids: given Estimated Blood Loss: none Drains: none Implant(s) used?: No Tana Romano MD Sep 22, 2020 18:55
--- NOTE | 2020-09-22 19:15 | NUR ---
NURSE HAND-OFF REPORT: Important Events on Shift:pt has g tube replacement today. Patient Status: Diet: Pending Orders: Pending Results/Labs: Pending MD notification: Latest Vital Signs: Temperature 98.1 , Pulse 71 , B/P 144 /62 , Respiratory Rate 16 , O2 SAT 99 , Mechanical Ventilator, O2 Flow Rate 50.0 . Vital Sign Comment: EKG Rhythm: Sinus Rhythm Rhythm change?: N MD Notified?: - MD Response: Latest [place] Fall Score: 50 Fall Risk: High Risk Safety Measures: Call light Within Reach, Bed Alarm Zone 3, Side Rails Side Rails x2, Bed position Low and Locked. Fall Precautions: Yellow Socks Yellow Gown Door Sign Report given to . Pt is sleeping and stable, no stress noted, endorsed plan of care.
--- NOTE | 2020-09-22 19:15 | NUR ---
NURSE NOTES: Received report from Radames Diaz. Pt in bed obtunded, sleeping but arousable. On vent to trach , with current setting of [place] 7 Ac 12 TV400 Fio2 30% Peep 5, tolerating well with saturation of 98%. Sr on radiographer cardiac catheterization with heart rate of 75bpm. With Gtube in place, still noted with blood tinged mucus around the area with glucerna 1.2 running at 50 cc/hr. Gtube is intact, patent, and flushed well. No residual noted. Iv access on R Hand #22 SL intact, patent and flushed well. SCD in place. Purewick in place. Safety measure in place, bed in lowest positioned and locked, call light within reach. Will continue plan of care and monitor the pt.
[2020-09-22 20:00] VITALS: BP 150/69
[2020-09-23] VITALS: BP 118/52
--- NOTE | 2020-09-23 00:10 | NUR ---
NURSE NOTES: Pt in bed, comfortably sleeping. In no apparent cardiac and respiratory distress noted. Blood sugar checked. Vital signs checke , wnl. Oral care provided. Turned and repositioned pt. Will continue plan of care and monitor pt.
--- NOTE | 2020-09-23 02:09 | NUR ---
NURSE NOTES: Sponge bath given, dressing changed, Purewick replaced. Turned and repositioned pt. Oral care provided. No bm noted. Will continue to monitor.
[2020-09-23 04:00] VITALS: BP 144/74
[2020-09-23] MEDS: Meropenem 1 GM in NS 55 ML IVPB SCH ×3 (05:12→21:48)
--- NOTE | 2020-09-23 06:11 | NUR ---
NURSE NOTES: Rounds done, pt in bed, asleep. In no apparent cardiac and respiratory distress noted. I/O and daily weights taken.New oral care kit at bedside. Kept clean and dry.
--- NOTE | 2020-09-23 06:19 | NUR ---
NURSE NOTES: Dr Bess made rounds, updated pt's status. No new order.
--- NOTE | 2020-09-23 06:59 | Cardiac Electrophysiology PN ---
Assessment/Plan Assessment/Plan 1. Hypertension, currently blood pressure stable. On p.r.n. Hydralazine and clonidine 2. VDRF status post tracheostomy on 30% FiO2, in sinus rhythm. COVID was negative. 3. Severe anemia, hemoglobin 7.5. S/P blood transfusion. Etiology is not clear at this time, but creatinine is within normal range. 4. Elevated BNP of more than 4000. Echo EF 65% 5. Dysphagia, status post PEG replacement 09/22/20. 6. VRE sepsis ( Amp sensitive), Gram positive bacteremia, Pseudomonas pneumonia, E coli UTI, on iv Abx per ID 7. Sacral Decubitus DW RN Subjective Subjective Off covid isolation. GT replaced 09/22/20 On the Vent with 30% Fio2 off restraints.In SR on iv ABx Objective Last 24 Hour Vital Signs Date Time Temp Pulse Resp B/P (MAP) Pulse Ox O2 Delivery O2 Flow Rate FiO2 09/23/20 04:02 30 09/23/20 04:00 99.7 88 23 144/74 (97) 99 09/23/20 04:00 Mechanical Ventilator Mechanical Ventilator 09/23/20 03:50 81 09/23/20 03:29 85 22 30 09/23/20 00:00 Mechanical Ventilator Mechanical Ventilator 09/23/20 00:00 30 09/23/20 00:00 99.0 75 21 118/52 (74) 100 09/22/20 23:49 68 09/22/20 23:28 81 21 30 09/22/20 20:00 30 09/22/20 20:00 99.5 74 19 150/69 (96) 100 09/22/20 20:00 Mechanical Ventilator Mechanical Ventilator 09/22/20 19:44 67 14 30 09/22/20 19:33 72 09/22/20 16:00 30 09/22/20 16:00 Mechanical Ventilator Mechanical Ventilator 09/22/20 16:00 98.1 71 16 144/62 (89) 99 09/22/20 15:28 71 09/22/20 15:06 72 17 30 09/22/20 12:02 66 09/22/20 12:00 Mechanical Ventilator Mechanical Ventilator 09/22/20 12:00 30 09/22/20 12:00 98.2 76 22 131/65 (87) 98 09/22/20 11:17 68 17 30 09/22/20 09:28 82 18 98 09/22/20 09:20 84 20 98 09/22/20 08:10 64 09/22/20 08:00 30 09/22/20 08:00 98.2 71 21 139/77 (97) 99 09/22/20 07:50 Mechanical Ventilator Mechanical Ventilator 09/22/20 07:04 71 19 30 Intake and Output 09/22/20 09/23/20 19:00 07:00 Intake Total 1055 ml 1260 ml Output Total 700 ml 500 ml Balance 355 ml 760 ml Free Water 200 ml 300 ml IV Total 355 ml 410 ml Tube Feeding 500 ml 550 ml Output Urine Total 700 ml 500 ml # Bowel Movements 1 Laboratory Tests Test 09/23/20 03:20 Vitamin D 25-Hydroxy Pending 25-Hydroxy Vitamin D2 Pending 25-Hydroxy Vitamin D3 Pending Objective HEAD AND NECK: No JVD.S/P Trach LUNGS: Coarse rhonchi. CARDIOVASCULAR: Regular S1 and S2 with no gallop. ABDOMEN: Status post PEG. EXTREMITIES: 1+ pitting edema. Flex Bess MD Sep 23, 2020 06:59
--- NOTE | 2020-09-23 07:18 | NUR ---
NURSE HAND-OFF REPORT: Important Events on Shift: Stable, no fever Patient Status: Stable Diet: Glucerna 1.2 @50 Pending Orders: Pending Results/Labs: Pending MD notification: Latest Vital Signs: Temperature 99.7 , Pulse 88 , B/P 144 /74 , Respiratory Rate 23 , O2 SAT 99 , Mechanical Ventilator, O2 Flow Rate 50.0 . Vital Sign Comment: Stable EKG Rhythm: Sinus Rhythm Rhythm change?: N MD Notified?: - MD Response: Latest [place] Fall Score: 50 Fall Risk: High Risk Safety Measures: Call light Within Reach, Bed Alarm Zone 3, Side Rails Side Rails x2, Bed position Low and Locked. Fall Precautions: Yellow Socks Yellow Gown Door Sign Report given to CRISTY RASMUSSEN .
--- NOTE | 2020-09-23 07:30 | NUR ---
NURSE NOTES: [facility]ceived [facility] no acute distress. IV line intact. Gtube intact, feeding ongoing. Purewick in place. HOB elevated. Bed locked in low position. Call light within reach. Will continue plan of care.
[2020-09-23] MEDS: Bactrim Susp 20ml GT SCH (07:44)
[2020-09-23] MEDS: Zinc Sulfate 220mg ORAL SCH (07:45)
[2020-09-23] MEDS: Pantoprazole Inj IVP SCH ×2 (07:45→20:18)
[2020-09-23] MEDS: Ascorbic Acid 500mg tab ORAL SCH ×2 (07:45→16:48)
[2020-09-23 08:00] VITALS: BP 159/81
[2020-09-23] MEDS: Acetaminophen 500mg (ES) tab ORAL PRN ×2 (08:22→16:49)
--- NOTE | 2020-09-23 08:56 | Hematology/Onc Progress Note ---
Assessment/Plan Assessment/Plan LABORATORY DATA: 04/2020 white count 4.7, platelets 140 otherwise CBC is normal. BMP shows chloride 110, creatinine 0.4. Albumin 2.9, otherwise normal. INR 1.0, PTT 27. Urinalysis shows 2+ leukocyte esterase. 09/16 wbc 10, hgb 7.5, plt 126 Imaging 07/01/20 cxr Bilateral patchy airspace opacities. Differential includes multifocal pneumonia and pulmonary edema. 09/16/20 cxr b/l infiltrates noted Assessment and Recommendations # Anemia of iron deficiency, has been persistent for months, now improved, as ferritin better --> Anemia workup has been ordered--> improved --> No evidence of hemolysis is noted, peripheral smear has been reviewed. --> Hgb goal >7. Transfuse prn. --> Iron iv not needed any further --> Medications have been reviewed --> gb 9-->8.4->>>>7.5-->9.4-->9->10-->9.4 # Right breast calcifications --> does not have a breast mass on exam --> f/u as outpatient with mammo as needed --> do not do a us breast here # Thrombocytopenia - potential causes multifactorial, evaluate liver and viral etiologies to begin, also could be related to underlying medications, no wimproved --> Hep panel and HIV prior negative -> plt 183->203->199-->125->130 --> abx # Leukocytosis with Pna --> antibiotics per id --> wbc 16 # Sepsis --> antibiotics per Infectious Disease. --> ABX vanc/zosyn # Dehydration. --> PT and Dietary evaluation. # Hypertension --> Blood pressure control. # Dvt ppx scds The timing of this note does not necessarily reflect the time of the patient was seen Greatly appreciate consultation! Subjective HEENT: Denies: no symptoms, eye pain, blurred vision, tearing, double vision, ear pain, ear discharge, nose pain, nose congestion, throat pain, throat swelling, mouth pain, mouth swelling, other Allergies: Coded Allergies: No Known Allergies (Unverified , 11/22/15) All Systems: reviewed and negative except above Subjective 09/18 labs are noted, no bleeding, seen by pulm, cbc is pending 09/19 gtube is running, meds reviewed, labs noted 09/20 labs reviewed, meds noted, cbc is pending, vanc was added recently 09/21 labs reviewed, meds noetd, hgb 10, bactrim, yovani, vanc 09/22 is satting well on the vent, abx, labs still pending for am 09/23 remains on vent, not in acute distress, no bleeding, no night sweats Objective Objective Current Medications Medications (Trade) Dose Ordered Sig/Alex Route PRN Reason Start Time Stop Time Status Last Admin Dose Admin Acetaminophen (Tylenol) 500 mg Q4H PRN ORAL Temp >100.5 09/15/20 23:15 10/15/20 23:14 09/21/20 05:30 Acetaminophen (Tylenol) 500 mg Q4H PRN ORAL Mild Pain (Pain Scale 1-3) 09/15/20 23:15 10/15/20 23:14 09/23/20 08:22 Ascorbic Acid (Vitamin C) 250 mg TWICE A DAY ORAL 09/19/20 18:00 10/19/20 17:59 09/23/20 07:45 Clonidine HCl (Catapres Tab) 0.1 mg Q2H PRN GT For High Blood Pressure 09/17/20 17:00 12/16/20 16:59 Hydralazine HCl (Apresoline) 10 mg Q2H PRN IV For High Blood Pressure 09/17/20 17:00 12/16/20 16:59 Linezolid 300 ml @ 300 mls/hr Q12HR IVPB 09/21/20 13:00 09/28/20 12:59 09/23/20 07:45 Meropenem 1 gm/ Sodium Chloride 55 ml @ 110 mls/hr Q8HR IVPB 09/20/20 11:00 09/25/20 10:59 09/23/20 05:12 Multivitamins (Multivitamins) 1 tab DAILY ORAL 09/20/20 09:00 10/20/20 08:59 09/23/20 07:45 Pantoprazole (Protonix) 40 mg EVERY 12 HOURS IVP 09/17/20 14:15 10/17/20 14:14 09/23/20 07:45 Trimethoprim/ Sulfamethoxazole (Bactrim-DS) 10 ml EVERY 12 HOURS GT 09/20/20 11:00 09/27/20 10:59 09/23/20 07:44 Zinc Sulfate (Zinc Sulfate) 220 mg DAILY ORAL 09/20/20 09:00 09/30/20 08:59 09/23/20 07:45 Last 24 Hour Vital Signs Date Time Temp Pulse Resp B/P (MAP) Pulse Ox O2 Delivery O2 Flow Rate FiO2 09/23/20 08:00 101.8 92 21 159/81 (107) 100 09/23/20 07:10 89 20 30 09/23/20 04:02 30 09/23/20 04:00 99.7 88 23 144/74 (97) 99 09/23/20 04:00 Mechanical Ventilator Mechanical Ventilator 09/23/20 03:50 81 09/23/20 03:29 85 22 30 09/23/20 00:00 Mechanical Ventilator Mechanical Ventilator 09/23/20 00:00 30 09/23/20 00:00 99.0 75 21 118/52 (74) 100 09/22/20 23:49 68 09/22/20 23:28 81 21 30 09/22/20 20:00 30 09/22/20 20:00 99.5 74 19 150/69 (96) 100 09/22/20 20:00 Mechanical Ventilator Mechanical Ventilator 09/22/20 19:44 67 14 30 09/22/20 19:33 72 09/22/20 16:00 30 09/22/20 16:00 Mechanical Ventilator Mechanical Ventilator 09/22/20 16:00 98.1 71 16 144/62 (89) 99 09/22/20 15:28 71 09/22/20 15:06 72 17 30 09/22/20 12:02 66 09/22/20 12:00 Mechanical Ventilator Mechanical Ventilator 09/22/20 12:00 30 09/22/20 12:00 98.2 76 22 131/65 (87) 98 09/22/20 11:17 68 17 30 09/22/20 09:28 82 18 98 09/22/20 09:20 84 20 98 09/22/20 08:10 64 09/22/20 08:00 30 09/22/20 08:00 98.2 71 21 139/77 (97) 99 09/22/20 07:50 Mechanical Ventilator Mechanical Ventilator 09/22/20 07:04 71 19 30 09/22/20 04:00 Mechanical Ventilator Mechanical Ventilator 09/22/20 04:00 30 09/22/20 04:00 98.1 78 19 114/70 (85) 100 09/22/20 03:33 72 09/22/20 02:50 78 19 30 09/22/20 00:00 30 09/22/20 00:00 Mechanical Ventilator Mechanical Ventilator 09/22/20 00:00 98.2 82 22 123/55 (77) 98 09/21/20 23:44 70 09/21/20 23:19 79 22 30 09/21/20 20:00 98.6 79 20 125/70 (88) 99 09/21/20 20:00 Mechanical Ventilator Mechanical Ventilator 09/21/20 20:00 30 09/21/20 19:30 80 21 30 09/21/20 19:03 80 09/21/20 16:00 30 09/21/20 16:00 Mechanical Ventilator Mechanical Ventilator 09/21/20 16:00 98.8 78 21 129/61 (83) 100 09/21/20 15:20 85 09/21/20 14:50 80 22 30 09/21/20 12:00 Mechanical Ventilator Mechanical Ventilator 09/21/20 12:00 30 09/21/20 11:51 98.2 81 20 137/71 (93) 98 09/21/20 11:43 84 09/21/20 10:38 84 21 30 Intake and Output 09/22/20 09/23/20 19:00 07:00 Intake Total 1055 ml 1260 ml Output Total 700 ml 500 ml Balance 355 ml 760 ml Free Water 200 ml 300 ml IV Total 355 ml 410 ml Tube Feeding 500 ml 550 ml Output Urine Total 700 ml 500 ml # Bowel Movements 1 Labs Test 09/21/20 00:35 09/21/20 15:02 09/21/20 18:02 09/21/20 19:10 POC Whole Blood Glucose 86 MG/DL (74-106) White Blood Count 16.5 K/UL (4.8-10.8) Red Blood Count 3.06 M/UL (4.20-5.40) Hemoglobin 9.4 G/DL (12.0-16.0) Hematocrit 28.6 % (37.0-47.0) Mean Corpuscular Volume 94 FL (80-99) Mean Corpuscular Hemoglobin 30.7 PG (27.0-31.0) Mean Corpuscular Hemoglobin Concent 32.8 G/DL (32.0-36.0) Red Cell Distribution Width 17.5 % (11.6-14.8) Platelet Count 155 K/UL (150-450) Mean Platelet Volume 8.9 FL (6.5-10.1) Neutrophils (%) (Auto) % (45.0-75.0) Lymphocytes (%) (Auto) % (20.0-45.0) Monocytes (%) (Auto) % (1.0-10.0) Eosinophils (%) (Auto) % (0.0-3.0) Basophils (%) (Auto) % (0.0-2.0) Differential Total Cells Counted 100 Neutrophils % (Manual) 48 % (45-75) Lymphocytes % (Manual) 15 % (20-45) Monocytes % (Manual) 5 % (1-10) Eosinophils % (Manual) 32 % (0-3) Basophils % (Manual) 0 % (0-2) Band Neutrophils 0 % (0-8) Platelet Estimate Adequate Platelet Morphology Normal Hypochromasia 1+ Anisocytosis 1+ Prothrombin Time 12.0 SEC (9.30-11.50) Prothromb Time International Ratio 1.1 (0.9-1.1) Activated Partial Thromboplast Time 27 SEC (23-33) Sodium Level 143 MMOL/L (136-145) Potassium Level 4.8 MMOL/L (3.5-5.1) Chloride Level 112 MMOL/L (98-107) Carbon Dioxide Level 28 MMOL/L (21-32) Anion Gap 4 mmol/L (5-15) Blood Urea Nitrogen 22 mg/dL (7-18) Creatinine 0.7 MG/DL (0.55-1.30) Estimat Glomerular Filtration Rate > 60 mL/min (>60) Glucose Level 107 MG/DL (74-106) Calcium Level 9.6 MG/DL (8.5-10.1) Total Bilirubin 0.4 MG/DL (0.2-1.0) Aspartate Amino Transf (AST/SGOT) 10 U/L (15-37) Alanine Aminotransferase (ALT/SGPT) 12 U/L (12-78) Alkaline Phosphatase 149 U/L (46-116) Total Protein 7.3 G/DL (6.4-8.2) Albumin 2.4 G/DL (3.4-5.0) Globulin 4.9 g/dL Albumin/Globulin Ratio 0.5 (1.0-2.7) Test 09/22/20 06:07 09/23/20 03:20 POC Whole Blood Glucose 86 MG/DL (74-106) Height (Feet): 5 Height (Inches): 3.00 Weight (Pounds): 145 Objective PHYSICAL EXAMINATION: GENERAL: Slightly confused in bed, oriented x1, CARDIOVASCULAR: No murmur. LUNGS: Poor air exchange.+vent/trach ABDOMEN: Bowel sounds distant.++peg EXTREMITIES: No cyanosis, clubbing, or edema NEUROLOGIC: Neck, weakness as well leaning forward.bedbound++ Alan Cazares MD Sep 23, 2020 08:56
--- NOTE | 2020-09-23 10:27 | NUR ---
NURSE NOTES: Patient febrile, medication given. Cooling measures done. Will continue to monitor.
--- NOTE | 2020-09-23 11:21 | Surgery Progress Note ---
Surgery Progress Note Subjective Additional Comments no acute events Objective Last 24 Hour Vital Signs Date Time Temp Pulse Resp B/P (MAP) Pulse Ox O2 Delivery O2 Flow Rate FiO2 09/23/20 08:52 100.9 09/23/20 08:00 101.8 92 21 159/81 (107) 100 09/23/20 08:00 30 09/23/20 08:00 91 09/23/20 08:00 Mechanical Ventilator Mechanical Ventilator 09/23/20 07:10 89 20 30 09/23/20 04:02 30 09/23/20 04:00 99.7 88 23 144/74 (97) 99 09/23/20 04:00 Mechanical Ventilator Mechanical Ventilator 09/23/20 03:50 81 09/23/20 03:29 85 22 30 09/23/20 00:00 Mechanical Ventilator Mechanical Ventilator 09/23/20 00:00 30 09/23/20 00:00 99.0 75 21 118/52 (74) 100 09/22/20 23:49 68 09/22/20 23:28 81 21 30 09/22/20 20:00 30 09/22/20 20:00 99.5 74 19 150/69 (96) 100 09/22/20 20:00 Mechanical Ventilator Mechanical Ventilator 09/22/20 19:44 67 14 30 09/22/20 19:33 72 09/22/20 16:00 30 09/22/20 16:00 Mechanical Ventilator Mechanical Ventilator 09/22/20 16:00 98.1 71 16 144/62 (89) 99 09/22/20 15:28 71 09/22/20 15:06 72 17 30 09/22/20 12:02 66 09/22/20 12:00 Mechanical Ventilator Mechanical Ventilator 09/22/20 12:00 30 09/22/20 12:00 98.2 76 22 131/65 (87) 98 I&O Intake and Output 09/22/20 09/23/20 19:00 07:00 Intake Total 1055 ml 1260 ml Output Total 700 ml 500 ml Balance 355 ml 760 ml Free Water 200 ml 300 ml IV Total 355 ml 410 ml Tube Feeding 500 ml 550 ml Output Urine Total 700 ml 500 ml # Bowel Movements 1 Dressing: saturated Cardiovascular: RSR Respiratory: decreased breath sounds Abdomen: non-tender, present bowel sounds Extremities: no cyanosis Laboratory Tests Test 09/23/20 03:20 Vitamin D 25-Hydroxy Pending 25-Hydroxy Vitamin D2 Pending 25-Hydroxy Vitamin D3 Pending Plan Problems: (1) Pneumonia (2) Functional quadriplegia (3) Person under investigation for COVID-19 (4) Chronic respiratory failure (5) Dehydration (6) Hypernatremia (7) Hypothyroidism (8) Pyelonephritis (9) Protein calorie malnutrition Assessment & Plan: DAILY ESTIMATED NEEDS: Needs based on Wound, critical care 57.5kg abw 25-30 kcals/kg 4091-6703 total kcals 1.25-2 g protein/kg 72-115 g total protein 25-30 mL/kg 2410-2727 total fluid mLs NUTRITION DIAGNOSIS: * Increased kcal/prot needs R/T wound healing as evidenced by pt w/ h/o stage 4 sacral wound, eval is pending. * Swallowing difficulty R/T dysphagia, respiratory status as evidenced by pt is Trach and PEG dep. ENTERAL NUTRITION RECOMMENDATIONS: Glucerna 1.2 @ 55ml/hr x 24 hrs to provide 1320ml, 1584 kcal, 79g pro, 1063ml free H2O * As medically able, start Glucerna 1.2 @35ml/hr for 6 hrs, advance as tolerated q4-6 to goal. * Add TYRESE in 4oz water BID via PEG for wound healing * HOB over 30 degrees/ water flush per MD ADDITIONAL RECOMMENDATIONS: * Calibrated bedscale wt for accurate CBW * Wound healing: TYRESE BID, Vit C 250mg BID F/up w/ WC eval * Monitor lytes, replete as needed * Monitor BGs w/ TF-> bed side BG checks + NISS (10) Failure to thrive (child) (11) Sacral decubitus ulcer Assessment & Plan: Pt presented on admission with Tracheostomy, GT, and multiple Pressure injuries. No erythema or evidence of skin breakdown under tracheal collar. dry dark brown skin plaque noted at R lateral chest to R flank. Full thickness stage 4 Sacral Pressure Injury with undermined borders(L)2cm x (W)2cm x (D)2cm, undermining clockwise 11-3 by 2.3cm @3o'clock.Ability to accurately assess base of wound is not fully appreciated secondary to shape of wound. (+) Epibole along edges of wound. Silver Nitrate sticks application applied to Borders. Bone is palpable when probed.Small amt brown exudate noted. No odor noted. Deering Atrophic scar periwound. Resolving Pressure Injury R Ischium. Deering epithelial noted at base of wound. Intact serous Blister noted to monica/upper L thigh. No erythema or changes in skin temp at affected site. Reabsorbing DTPI L Hallux. Base of Pressure injury is dark brown,dry without erythema,induration or fluctuance. L Heel is boggy with non-blanchable erythema. R Heel is boggy but blanchable. Tx.Plan: Cleanse Sacral wound with Saline. Loosely pack with Therahoney impregnated Kerlix.Apply Moisture Barrier Paste periwound. Cover with Optifoam drsg every 3 days and prn. Apply Moisture Barrier Paste to R Ischium. Cover with Optifoam drsg. Change every 3 days and prn. Apply Phytoplex Skin Nourishing lotion to Lateral R chest /R Flank Daily. Apply Cavilon Skin Barrier to R and L Heel. Cover each heel with Optifoam drsg.Change every 7 days and prn. Reposition at least every 2hours or as tolerated. Off-load heels with pillow. 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
[2020-09-23 12:00] VITALS: BP 119/62
--- NOTE | 2020-09-23 12:26 | Pulmonology Progress Note ---
Subjective ROS Limited/Unobtainable: Yes Interval Events: None new Constitutional: Denies: fever HEENT: Repors: no symptoms Respiratory: Reports: no symptoms Cardiovascular: Reports: no symptoms Gastrointestinal/Abdominal: Reports: no symptoms Genitourinary: Reports: no symptoms Allergies: Coded Allergies: No Known Allergies (Unverified , 11/22/15) All Systems: reviewed and negative except above Objective Last 24 Hour Vital Signs Date Time Temp Pulse Resp B/P (MAP) Pulse Ox O2 Delivery O2 Flow Rate FiO2 09/23/20 08:52 100.9 09/23/20 08:00 101.8 92 21 159/81 (107) 100 09/23/20 08:00 30 09/23/20 08:00 91 09/23/20 08:00 Mechanical Ventilator Mechanical Ventilator 09/23/20 07:10 89 20 30 09/23/20 04:02 30 09/23/20 04:00 99.7 88 23 144/74 (97) 99 09/23/20 04:00 Mechanical Ventilator Mechanical Ventilator 09/23/20 03:50 81 09/23/20 03:29 85 22 30 09/23/20 00:00 Mechanical Ventilator Mechanical Ventilator 09/23/20 00:00 30 09/23/20 00:00 99.0 75 21 118/52 (74) 100 09/22/20 23:49 68 09/22/20 23:28 81 21 30 09/22/20 20:00 30 09/22/20 20:00 99.5 74 19 150/69 (96) 100 09/22/20 20:00 Mechanical Ventilator Mechanical Ventilator 09/22/20 19:44 67 14 30 09/22/20 19:33 72 09/22/20 16:00 30 09/22/20 16:00 Mechanical Ventilator Mechanical Ventilator 09/22/20 16:00 98.1 71 16 144/62 (89) 99 09/22/20 15:28 71 09/22/20 15:06 72 17 30 Intake and Output 09/22/20 09/23/20 19:00 07:00 Intake Total 1055 ml 1260 ml Output Total 700 ml 500 ml Balance 355 ml 760 ml Free Water 200 ml 300 ml IV Total 355 ml 410 ml Tube Feeding 500 ml 550 ml Output Urine Total 700 ml 500 ml # Bowel Movements 1 General Appearance: no acute distress HEENT: normocephalic, atraumatic, status post trach Respiratory: chest wall non-tender, lungs clear, other - coarse rhonchi Cardiovascular: normal rate, regular rhythm Abdomen: normal bowel sounds, distended Laboratory Tests 09/23/20 03:20: Vitamin D 25-Hydroxy [Pending], 25-Hydroxy Vitamin D2 [Pending], 25-Hydroxy Vitamin D3 [Pending] Current Medications Medications (Trade) Dose Ordered Sig/Alex Route PRN Reason Start Time Stop Time Status Last Admin Dose Admin Acetaminophen (Tylenol) 500 mg Q4H PRN ORAL Temp >100.5 09/15/20 23:15 10/15/20 23:14 09/21/20 05:30 Acetaminophen (Tylenol) 500 mg Q4H PRN ORAL Mild Pain (Pain Scale 1-3) 09/15/20 23:15 10/15/20 23:14 09/23/20 08:22 Ascorbic Acid (Vitamin C) 250 mg TWICE A DAY ORAL 09/19/20 18:00 10/19/20 17:59 09/23/20 07:45 Clonidine HCl (Catapres Tab) 0.1 mg Q2H PRN GT For High Blood Pressure 09/17/20 17:00 12/16/20 16:59 Hydralazine HCl (Apresoline) 10 mg Q2H PRN IV For High Blood Pressure 09/17/20 17:00 12/16/20 16:59 Linezolid 300 ml @ 300 mls/hr Q12HR IVPB 09/21/20 13:00 09/28/20 12:59 09/23/20 07:45 Meropenem 1 gm/ Sodium Chloride 55 ml @ 110 mls/hr Q8HR IVPB 09/20/20 11:00 09/25/20 10:59 09/23/20 05:12 Multivitamins (Multivitamins) 1 tab DAILY ORAL 09/20/20 09:00 10/20/20 08:59 09/23/20 07:45 Pantoprazole (Protonix) 40 mg EVERY 12 HOURS IVP 09/17/20 14:15 10/17/20 14:14 09/23/20 07:45 Trimethoprim/ Sulfamethoxazole (Bactrim-DS) 10 ml EVERY 12 HOURS GT 09/20/20 11:00 09/27/20 10:59 09/23/20 07:44 Zinc Sulfate (Zinc Sulfate) 220 mg DAILY ORAL 09/20/20 09:00 09/30/20 08:59 09/23/20 07:45 Assessment/Plan Assessment/Plan 1. Anemia, likely iron deficiency. - On IV iron. - s/p transfusion per Dr. Cazares. 2. Interstitial infiltrates, has pneumonia. - Sputum -> Serratia - Antibiotics per ID. - Continue supplemental oxygen; continue ventilator, AC mode.FiO2 30% 3. Sepsis. - Antibiotics per ID. Gm neg rods in sputum CS; confirmed Serratia 4. History of fever. - Currently afebrile. 5. Possible COVID-19 infection. - Swab COVID-19 test negative. - Repeat PCR COVID-19 also negative 6. CHF. - 2D echocardiogram ordered per Cardio. 7. UTI. - On antibiotics. Has ESBL E. Coli 8. Elevated D-dimer. 9. DVT prophylaxis. - Venous duplex ultrasound negative. - on SCD 10. Chronic Respiratory Failure; continue vent; AC mode The history of Jennifer Gao has been reviewed and management options for her have been examined and discussed by Mino Childs. I have personally examined and interviewed the patient. Mino Childs MD Sep 23, 2020 12:26
--- NOTE | 2020-09-23 14:20 | Infectious Diseases Prog Note ---
Assessment/Plan Assessment/Plan IMPRESSION: New fever Eosinophilia & rash VRE sepsis ( Amp sensitive) Positive blood culture with Staph Hemolyticus likely contamination Serratia, Pseudomonas & Stenotrophomonas pneumonia, E coli UTI, Ventilator-dependent respiratory failure, Quadriplegia, Stage IV sacral ulcer, COPD, Iron deficiency anemia, Hypertension, history of atrial fibrillation. Negative COVI19 tests RECOMMENDATION: Continue Meropenem , Discontinue Bactrim & Linezolid repeat CXR Subjective ROS Limited/Unobtainable: Yes Constitutional: Reports: fever, other - Re=815.8 Allergies: Coded Allergies: No Known Allergies (Unverified , 11/22/15) Objective Last 24 Hour Vital Signs Date Time Temp Pulse Resp B/P (MAP) Pulse Ox O2 Delivery O2 Flow Rate FiO2 09/23/20 12:00 98.6 81 20 119/62 (81) 99 09/23/20 11:00 81 19 30 09/23/20 08:52 100.9 09/23/20 08:00 101.8 92 21 159/81 (107) 100 09/23/20 08:00 30 09/23/20 08:00 91 09/23/20 08:00 Mechanical Ventilator Mechanical Ventilator 09/23/20 07:10 89 20 30 09/23/20 04:02 30 09/23/20 04:00 99.7 88 23 144/74 (97) 99 09/23/20 04:00 Mechanical Ventilator Mechanical Ventilator 09/23/20 03:50 81 09/23/20 03:29 85 22 30 09/23/20 00:00 Mechanical Ventilator Mechanical Ventilator 09/23/20 00:00 30 09/23/20 00:00 99.0 75 21 118/52 (74) 100 09/22/20 23:49 68 09/22/20 23:28 81 21 30 09/22/20 20:00 30 09/22/20 20:00 99.5 74 19 150/69 (96) 100 09/22/20 20:00 Mechanical Ventilator Mechanical Ventilator 09/22/20 19:44 67 14 30 09/22/20 19:33 72 09/22/20 16:00 30 09/22/20 16:00 Mechanical Ventilator Mechanical Ventilator 09/22/20 16:00 98.1 71 16 144/62 (89) 99 09/22/20 15:28 71 09/22/20 15:06 72 17 30 Height (Feet): 5 Height (Inches): 3.00 Weight (Pounds): 145 HEENT: status post trach Respiratory/Chest: lungs clear, other - on ventilator Cardiovascular: normal rate Abdomen: soft, non tender, other - Gt feeding Extremities: other - dependent edema Skin: other - rash Laboratory Tests Test 09/23/20 03:20 Vitamin D 25-Hydroxy Pending 25-Hydroxy Vitamin D2 Pending 25-Hydroxy Vitamin D3 Pending Current Medications Medications (Trade) Dose Ordered Sig/Alex Route PRN Reason Start Time Stop Time Status Last Admin Dose Admin Acetaminophen (Tylenol) 500 mg Q4H PRN ORAL Temp >100.5 09/15/20 23:15 10/15/20 23:14 09/21/20 05:30 Acetaminophen (Tylenol) 500 mg Q4H PRN ORAL Mild Pain (Pain Scale 1-3) 09/15/20 23:15 10/15/20 23:14 09/23/20 08:22 Ascorbic Acid (Vitamin C) 250 mg TWICE A DAY ORAL 09/19/20 18:00 10/19/20 17:59 09/23/20 07:45 Clonidine HCl (Catapres Tab) 0.1 mg Q2H PRN GT For High Blood Pressure 09/17/20 17:00 12/16/20 16:59 Hydralazine HCl (Apresoline) 10 mg Q2H PRN IV For High Blood Pressure 09/17/20 17:00 12/16/20 16:59 Linezolid 300 ml @ 300 mls/hr Q12HR IVPB 09/21/20 13:00 09/28/20 12:59 09/23/20 07:45 Meropenem 1 gm/ Sodium Chloride 55 ml @ 110 mls/hr Q8HR IVPB 09/20/20 11:00 09/25/20 10:59 09/23/20 05:12 Multivitamins (Multivitamins) 1 tab DAILY ORAL 09/20/20 09:00 10/20/20 08:59 09/23/20 07:45 Pantoprazole (Protonix) 40 mg EVERY 12 HOURS IVP 09/17/20 14:15 10/17/20 14:14 09/23/20 07:45 Trimethoprim/ Sulfamethoxazole (Bactrim-DS) 10 ml EVERY 12 HOURS GT 09/20/20 11:00 09/27/20 10:59 09/23/20 07:44 Zinc Sulfate (Zinc Sulfate) 220 mg DAILY ORAL 09/20/20 09:00 09/30/20 08:59 09/23/20 07:45 Mahesh Nicole MD Sep 23, 2020 14:20
[2020-09-23 16:00] VITALS: BP 155/84
--- NOTE | 2020-09-23 16:21 | General Progress Note ---
Subjective Allergies: Coded Allergies: No Known Allergies (Unverified , 11/22/15) Subjective Above noted Tolerating TF Fever noted Objective Last 24 Hour Vital Signs Date Time Temp Pulse Resp B/P (MAP) Pulse Ox O2 Delivery O2 Flow Rate FiO2 09/23/20 16:00 30 09/23/20 16:00 Mechanical Ventilator Mechanical Ventilator 09/23/20 16:00 85 09/23/20 16:00 101.5 85 22 155/84 (107) 100 09/23/20 15:40 104 27 30 09/23/20 12:00 77 09/23/20 12:00 98.6 81 20 119/62 (81) 99 09/23/20 12:00 Mechanical Ventilator Mechanical Ventilator 09/23/20 12:00 30 09/23/20 11:00 81 19 30 09/23/20 08:52 100.9 09/23/20 08:00 101.8 92 21 159/81 (107) 100 09/23/20 08:00 30 09/23/20 08:00 91 09/23/20 08:00 Mechanical Ventilator Mechanical Ventilator 09/23/20 07:10 89 20 30 09/23/20 04:02 30 09/23/20 04:00 99.7 88 23 144/74 (97) 99 09/23/20 04:00 Mechanical Ventilator Mechanical Ventilator 09/23/20 03:50 81 09/23/20 03:29 85 22 30 09/23/20 00:00 Mechanical Ventilator Mechanical Ventilator 09/23/20 00:00 30 09/23/20 00:00 99.0 75 21 118/52 (74) 100 09/22/20 23:49 68 09/22/20 23:28 81 21 30 09/22/20 20:00 30 09/22/20 20:00 99.5 74 19 150/69 (96) 100 09/22/20 20:00 Mechanical Ventilator Mechanical Ventilator 09/22/20 19:44 67 14 30 09/22/20 19:33 72 Intake and Output 09/22/20 09/23/20 19:00 07:00 Intake Total 1055 ml 1260 ml Output Total 700 ml 500 ml Balance 355 ml 760 ml Free Water 200 ml 300 ml IV Total 355 ml 410 ml Tube Feeding 500 ml 550 ml Output Urine Total 700 ml 500 ml # Bowel Movements 1 Laboratory Tests 09/23/20 03:20: Vitamin D 25-Hydroxy [Pending], 25-Hydroxy Vitamin D2 [Pending], 25-Hydroxy Vitamin D3 [Pending] Height (Feet): 5 Height (Inches): 3.00 Weight (Pounds): 145 Objective debilitated Elderly woman on vent NCAT neck (+) trach coarse BS RR abd soft , flat, (+) GT no edema, (++) contractures Assessment/Plan Status: progressing Assessment/Plan: Assessment - GT site drainage/discharge - resolved - mildly elevated alk phos - possibly vitamin D related - OBS - Resp failure, s/p Trach - s/p PEG for dysphagia, - Parkinsons - Schizophrenia - h/o decub ulcers - Severe anemia Recommendations - check vitamin D - GT care - Elevate HOB - monitor labs Tana Romano MD Sep 23, 2020 16:21
--- NOTE | 2020-09-23 17:17 | Diagnostic Imaging Report ---
INDICATION: "Infect" COMPARISON: 09/15/2020. Findings/impression: Single limited presumed portable frontal view demonstrates a tracheostomy tube. Bilateral airspace consolidations versus pulmonary edema again noted, similar to that seen on the prior study. No significant pleural effusions or clinically significant pneumothorax. Calcifications are identified within the thoracic aorta. The cardiac silhouette appears enlarged however this may be accentuated by the presumed limited portable technique.
--- NOTE | 2020-09-23 18:42 | NUR ---
NURSE HAND-OFF REPORT: Important Events on Shift: febrile today. Tylenol given, cooling measures done. Sacral wound dressing soiled, changed. Patient Status: obtunded Diet: glucerna 1.2 x 50cc/hr Pending Orders: Pending Results/Labs: Pending MD notification: Latest Vital Signs: Temperature 100.4 , Pulse 85 , B/P 155 /84 , Respiratory Rate 22 , O2 SAT 100 , Mechanical Ventilator, O2 Flow Rate 50.0 . Vital Sign Comment: EKG Rhythm: Sinus Rhythm Rhythm change?: N MD Notified?: - MD Response: Latest [place] Fall Score: 50 Fall Risk: High Risk Safety Measures: Call light Within Reach, Bed Alarm Zone 3, Side Rails Side Rails x2, Bed position Low and Locked. Fall Precautions: Yellow Socks Yellow Gown Door Sign .
--- NOTE | 2020-09-23 18:57 | NUR ---
HAND-OFF: Report given to Junaid RN.
--- NOTE | 2020-09-23 19:10 | NUR ---
NURSE NOTES: Received report from Radames RASMUSSEN. Pt in bed obtunded, sleeping but arousable. On vent to trach , with current setting of Portex 7 Ac 12 TV400 Fio2 30% Peep 5, tolerating well with saturation of 98%. Sr on ekg monitor with heart rate of 77bpm. With temp of 100.4 F. Will apply cooling measures prn. Gtube in place running glucerna 1.2 running at 50 cc/hr. Gtube is intact, patent, and flushed well. No residual noted. Iv access on R Hand #22 SL intact, patent and flushed well. SCD in place. Purewick in place. Safety measure in place, bed in lowest positioned and locked, call light within reach. Will continue plan of care and monitor the pt.
[2020-09-23 20:00] VITALS: BP 116/55
--- NOTE | 2020-09-23 22:41 | General Progress Note ---
Subjective ROS Limited/Unobtainable: Yes Allergies: Coded Allergies: No Known Allergies (Unverified , 11/22/15) Objective Last 24 Hour Vital Signs Date Time Temp Pulse Resp B/P (MAP) Pulse Ox O2 Delivery O2 Flow Rate FiO2 09/23/20 20:00 Mechanical Ventilator Mechanical Ventilator 09/23/20 20:00 30 09/23/20 20:00 100.4 75 25 116/55 (75) 100 09/23/20 19:34 77 17 30 09/23/20 19:27 78 09/23/20 17:19 100.4 09/23/20 16:00 30 09/23/20 16:00 Mechanical Ventilator Mechanical Ventilator 09/23/20 16:00 85 09/23/20 16:00 101.5 85 22 155/84 (107) 100 09/23/20 15:40 104 27 30 09/23/20 12:00 77 09/23/20 12:00 98.6 81 20 119/62 (81) 99 09/23/20 12:00 Mechanical Ventilator Mechanical Ventilator 09/23/20 12:00 30 09/23/20 11:00 81 19 30 09/23/20 08:52 100.9 09/23/20 08:00 101.8 92 21 159/81 (107) 100 09/23/20 08:00 30 09/23/20 08:00 91 09/23/20 08:00 Mechanical Ventilator Mechanical Ventilator 09/23/20 07:10 89 20 30 09/23/20 04:02 30 09/23/20 04:00 99.7 88 23 144/74 (97) 99 09/23/20 04:00 Mechanical Ventilator Mechanical Ventilator 09/23/20 03:50 81 09/23/20 03:29 85 22 30 09/23/20 00:00 Mechanical Ventilator Mechanical Ventilator 09/23/20 00:00 30 09/23/20 00:00 99.0 75 21 118/52 (74) 100 09/22/20 23:49 68 09/22/20 23:28 81 21 30 Intake and Output 09/22/20 09/23/20 19:00 07:00 Intake Total 1055 ml 1260 ml Output Total 700 ml 500 ml Balance 355 ml 760 ml Free Water 200 ml 300 ml IV Total 355 ml 410 ml Tube Feeding 500 ml 550 ml Output Urine Total 700 ml 500 ml # Bowel Movements 1 Laboratory Tests 09/23/20 03:20: Vitamin D 25-Hydroxy [Pending], 25-Hydroxy Vitamin D2 [Pending], 25-Hydroxy Vitamin D3 [Pending] Height (Feet): 5 Height (Inches): 3.00 Weight (Pounds): 145 Assessment/Plan Problem List: (1) Hypothyroidism ICD Codes: E03.9 - Hypothyroidism, unspecified SNOMED: 24016212 (2) Chronic respiratory failure ICD Codes: J96.10 - Chronic respiratory failure, unspecified whether with hypoxia or hypercapnia SNOMED: 43779321 (3) Functional quadriplegia ICD Codes: R53.2 - Functional quadriplegia SNOMED: 127907169672370 (4) Protein calorie malnutrition ICD Codes: E46 - Unspecified protein-calorie malnutrition SNOMED: 950500952 (5) Failure to thrive (child) ICD Codes: R62.51 - Failure to thrive (child) SNOMED: 098334393 (6) Sacral decubitus ulcer ICD Codes: L89.159 - Pressure ulcer of sacral region, unspecified stage SNOMED: 966853735 (7) Tracheostomy dependence ICD Codes: Z93.0 - Tracheostomy status SNOMED: 943830169 (8) Sepsis ICD Codes: A41.9 - Sepsis, unspecified organism SNOMED: 20245780 (9) Anemia ICD Codes: D64.9 - Anemia, unspecified SNOMED: 594895014 Qualifiers: Qualified Codes: D64.9 - Anemia, unspecified (10) UTI (urinary tract infection) ICD Codes: N39.0 - Urinary tract infection, site not specified SNOMED: 18734599 Qualifiers: Qualified Codes: N39.0 - Urinary tract infection, site not specified Status: progressing Assessment/Plan: trach and peg pna sepsis no change prn supportive care Sandeep Oneil MD Sep 23, 2020 22:41
[2020-09-24] VITALS: BP 134/68
[2020-09-24] MEDS: Acetaminophen 500mg (ES) tab ORAL PRN ×2 (00:14→16:19)
--- NOTE | 2020-09-24 00:14 | NUR ---
NURSE NOTES: Vital signs checked noted of temp 101.7. Administered Tylenol 500 mg. Cooling measures applied. Will continue to monitor pt.
--- NOTE | 2020-09-24 02:10 | NUR ---
NURSE NOTES: Pt in bed, comfortably sleeping. In no apparent cardiac and respiratory distress noted. Oral care provided. Turned and repositioned pt. Will continue plan of care and monitor pt.
--- NOTE | 2020-09-24 03:53 | NUR ---
NURSE NOTES: Bed bath given, dressing changed, Purewick replaced. Turned and repositioned pt. Oral care provided. Had 1 bm noted. Will continue to monitor.
[2020-09-24 04:00] VITALS: BP 116/65
[2020-09-24] MEDS: Meropenem 1 GM in NS 55 ML IVPB SCH ×3 (05:27→21:23)
--- NOTE | 2020-09-24 07:09 | NUR ---
NURSE HAND-OFF REPORT: Important Events on Shift:Stable Patient Status: Stable Diet: Glucerna 1.2 Pending Orders: Pending Results/Labs: Pending MD notification: Latest Vital Signs: Temperature 98.4 , Pulse 66 , B/P 116 /65 , Respiratory Rate 26 , O2 SAT 100 , Mechanical Ventilator, O2 Flow Rate 50.0 . Vital Sign Comment: Stable EKG Rhythm: Sinus Rhythm Rhythm change?: N MD Notified?: - MD Response: [place] Fall Score: 50 Fall Risk: High Risk Safety Measures: Call light Within Reach, Bed Alarm Zone 3, Side Rails Side Rails x2, Bed position Low and Locked. Fall Precautions: Yellow Socks Yellow Gown Door Sign Report given to RADAMES Moreno. Addendum: 09/24/20 at 0742 by Monique Malin RN NURSE NOTES: Second hand off report given to Radames Mendez
[2020-09-24 07:50] LABS: HEMATOCRIT 30.1 % (37.0-47.0); HEMOGLOBIN 10.1 G/DL (12.0-16.0); MEAN CORPUSCULAR VOLUME 92 FL (80-99); PLATELET COUNT 160 K/UL (150-450); RED BLOOD COUNT 3.28 M/UL (4.20-5.40); RED CELL DISTRIBUTION WIDTH 16.7 % (11.6-14.8); WHITE BLOOD COUNT 10.8 K/UL (4.8-10.8)
[2020-09-24 08:00] VITALS: BP 125/76
[2020-09-24 08:39] LABS: ALANINE AMINOTRANSFERASE 16 U/L (12-78); ALBUMIN 2.5 G/DL (3.4-5.0); ALBUMIN/GLOBULIN RATIO 0.5 (1.0-2.7); ALKALINE PHOSPHATASE 237 U/L (46-116); ANION GAP 4 mmol/L (5-15); ASPARTATE AMINO TRANSFERASE 19 U/L (15-37); BILIRUBIN,TOTAL 0.4 MG/DL (0.2-1.0); BLOOD UREA NITROGEN 20 mg/dL (7-18); CALCIUM 9.5 MG/DL (8.5-10.1); CARBON DIOXIDE 27 MMOL/L (21-32); CHLORIDE 104 MMOL/L (98-107); CREATININE 0.7 MG/DL (0.55-1.30); PHOSPHORUS 2.6 MG/DL (2.5-4.9); POTASSIUM 5.1 MMOL/L (3.5-5.1); SODIUM 135 MMOL/L (136-145)
--- NOTE | 2020-09-24 09:16 | Infectious Diseases Prog Note ---
Assessment/Plan Assessment/Plan IMPRESSION: New fever Eosinophilia & rash VRE sepsis ( Amp sensitive) Positive blood culture with Staph Hemolyticus likely contamination Serratia, Pseudomonas & Stenotrophomonas pneumonia, E coli UTI, Ventilator-dependent respiratory failure, Quadriplegia, Stage IV sacral ulcer, COPD, Iron deficiency anemia, Hypertension, history of atrial fibrillation. Negative COVI19 tests RECOMMENDATION: Continue Meropenem , CXR : no change Subjective ROS Limited/Unobtainable: Yes Constitutional: Reports: fever, other - Rz=008.7 last night Allergies: Coded Allergies: No Known Allergies (Unverified , 11/22/15) Objective Last 24 Hour Vital Signs Date Time Temp Pulse Resp B/P (MAP) Pulse Ox O2 Delivery O2 Flow Rate FiO2 09/24/20 07:17 81 21 30 09/24/20 04:00 98.4 66 26 116/65 (82) 100 09/24/20 04:00 30 09/24/20 04:00 Mechanical Ventilator Mechanical Ventilator 09/24/20 03:36 69 09/24/20 01:30 80 24 30 09/24/20 00:44 99.7 09/24/20 00:00 101.7 86 22 134/68 (90) 100 09/24/20 00:00 Mechanical Ventilator Mechanical Ventilator 09/24/20 00:00 30 09/23/20 23:50 73 09/23/20 22:49 82 25 30 09/23/20 20:00 Mechanical Ventilator Mechanical Ventilator 09/23/20 20:00 30 09/23/20 20:00 100.4 75 25 116/55 (75) 100 09/23/20 19:34 77 17 30 09/23/20 19:27 78 09/23/20 17:19 100.4 09/23/20 16:00 30 09/23/20 16:00 Mechanical Ventilator Mechanical Ventilator 09/23/20 16:00 85 09/23/20 16:00 101.5 85 22 155/84 (107) 100 09/23/20 15:40 104 27 30 09/23/20 12:00 77 09/23/20 12:00 98.6 81 20 119/62 (81) 99 09/23/20 12:00 Mechanical Ventilator Mechanical Ventilator 09/23/20 12:00 30 09/23/20 11:00 81 19 30 Height (Feet): 5 Height (Inches): 3.00 Weight (Pounds): 145 HEENT: mucous membranes moist, status post trach Respiratory/Chest: lungs clear, other - on ventilator Cardiovascular: normal rate Abdomen: soft, non tender Extremities: no edema, other - contracted Skin: other - rash improving Neurologic/Psychiatric: aphasia, other - opens eyes Laboratory Tests Test 09/24/20 07:30 White Blood Count 10.8 K/UL (4.8-10.8) Red Blood Count 3.28 M/UL (4.20-5.40) L Hemoglobin 10.1 G/DL (12.0-16.0) L Hematocrit 30.1 % (37.0-47.0) L Mean Corpuscular Volume 92 FL (80-99) Mean Corpuscular Hemoglobin 30.8 PG (27.0-31.0) Mean Corpuscular Hemoglobin Concent 33.5 G/DL (32.0-36.0) Red Cell Distribution Width 16.7 % (11.6-14.8) H Platelet Count 160 K/UL (150-450) Mean Platelet Volume 8.4 FL (6.5-10.1) Neutrophils (%) (Auto) % (45.0-75.0) Lymphocytes (%) (Auto) % (20.0-45.0) Monocytes (%) (Auto) % (1.0-10.0) Eosinophils (%) (Auto) % (0.0-3.0) Basophils (%) (Auto) % (0.0-2.0) Differential Total Cells Counted 100 Neutrophils % (Manual) 50 % (45-75) Lymphocytes % (Manual) 9 % (20-45) L Monocytes % (Manual) 4 % (1-10) Eosinophils % (Manual) 36 % (0-3) H Basophils % (Manual) 0 % (0-2) Band Neutrophils 1 % (0-8) Platelet Estimate Adequate Platelet Morphology Normal Hypochromasia 1+ Anisocytosis 1+ Sodium Level 135 MMOL/L (136-145) L Potassium Level 5.1 MMOL/L (3.5-5.1) Chloride Level 104 MMOL/L (98-107) Carbon Dioxide Level 27 MMOL/L (21-32) Anion Gap 4 mmol/L (5-15) L Blood Urea Nitrogen 20 mg/dL (7-18) H Creatinine 0.7 MG/DL (0.55-1.30) Estimat Glomerular Filtration Rate > 60 mL/min (>60) Glucose Level 103 MG/DL (74-106) Uric Acid 3.9 MG/DL (2.6-7.2) Calcium Level 9.5 MG/DL (8.5-10.1) Phosphorus Level 2.6 MG/DL (2.5-4.9) Magnesium Level 1.8 MG/DL (1.8-2.4) Total Bilirubin 0.4 MG/DL (0.2-1.0) Aspartate Amino Transf (AST/SGOT) 19 U/L (15-37) Alanine Aminotransferase (ALT/SGPT) 16 U/L (12-78) Alkaline Phosphatase 237 U/L (46-116) H Pro-B-Type Natriuretic Peptide 1212 pg/mL (0-125) H Total Protein 7.6 G/DL (6.4-8.2) Albumin 2.5 G/DL (3.4-5.0) L Globulin 5.1 g/dL Albumin/Globulin Ratio 0.5 (1.0-2.7) L Thyroid Stimulating Hormone (TSH) 62.890 uiU/mL (0.358-3.740) Current Medications Medications (Trade) Dose Ordered Sig/Alex Route PRN Reason Start Time Stop Time Status Last Admin Dose Admin Acetaminophen (Tylenol) 500 mg Q4H PRN ORAL Mild Pain (Pain Scale 1-3) 09/15/20 23:15 10/15/20 23:14 09/23/20 16:49 Acetaminophen (Tylenol) 500 mg Q4H PRN ORAL Temp >100.5 09/15/20 23:15 10/15/20 23:14 09/24/20 00:14 Ascorbic Acid (Vitamin C) 250 mg TWICE A DAY ORAL 09/19/20 18:00 10/19/20 17:59 09/23/20 16:48 Clonidine HCl (Catapres Tab) 0.1 mg Q2H PRN GT For High Blood Pressure 09/17/20 17:00 12/16/20 16:59 Hydralazine HCl (Apresoline) 10 mg Q2H PRN IV For High Blood Pressure 09/17/20 17:00 12/16/20 16:59 Meropenem 1 gm/ Sodium Chloride 55 ml @ 110 mls/hr Q8HR IVPB 09/20/20 11:00 09/25/20 10:59 09/24/20 05:27 Multivitamins (Multivitamins) 1 tab DAILY ORAL 09/20/20 09:00 10/20/20 08:59 09/23/20 07:45 Pantoprazole (Protonix) 40 mg EVERY 12 HOURS IVP 09/17/20 14:15 10/17/20 14:14 09/23/20 20:18 Zinc Sulfate (Zinc Sulfate) 220 mg DAILY ORAL 09/20/20 09:00 09/30/20 08:59 09/23/20 07:45 Mahesh Nicole MD Sep 24, 2020 09:16
--- NOTE | 2020-09-24 10:13 | General Progress Note ---
Subjective ROS Limited/Unobtainable: No Allergies: Coded Allergies: No Known Allergies (Unverified , 11/22/15) Objective Last 24 Hour Vital Signs Date Time Temp Pulse Resp B/P (MAP) Pulse Ox O2 Delivery O2 Flow Rate FiO2 09/24/20 07:17 81 21 30 09/24/20 04:00 98.4 66 26 116/65 (82) 100 09/24/20 04:00 30 09/24/20 04:00 Mechanical Ventilator Mechanical Ventilator 09/24/20 03:36 69 09/24/20 01:30 80 24 30 09/24/20 00:44 99.7 09/24/20 00:00 101.7 86 22 134/68 (90) 100 09/24/20 00:00 Mechanical Ventilator Mechanical Ventilator 09/24/20 00:00 30 09/23/20 23:50 73 09/23/20 22:49 82 25 30 09/23/20 20:00 Mechanical Ventilator Mechanical Ventilator 09/23/20 20:00 30 09/23/20 20:00 100.4 75 25 116/55 (75) 100 09/23/20 19:34 77 17 30 09/23/20 19:27 78 09/23/20 17:19 100.4 09/23/20 16:00 30 09/23/20 16:00 Mechanical Ventilator Mechanical Ventilator 09/23/20 16:00 85 09/23/20 16:00 101.5 85 22 155/84 (107) 100 09/23/20 15:40 104 27 30 09/23/20 12:00 77 09/23/20 12:00 98.6 81 20 119/62 (81) 99 09/23/20 12:00 Mechanical Ventilator Mechanical Ventilator 09/23/20 12:00 30 09/23/20 11:00 81 19 30 Intake and Output 09/23/20 09/24/20 19:00 07:00 Intake Total 205 ml 855 ml Output Total 200 ml 600 ml Balance 5 ml 255 ml Free Water 50 ml 250 ml IV Total 55 ml 55 ml Tube Feeding 100 ml 550 ml Output Urine Total 200 ml 600 ml # Bowel Movements 1 Laboratory Tests 09/24/20 07:30: White Blood Count 10.8, Red Blood Count 3.28L, Hemoglobin 10.1L, Hematocrit 30.1L, Mean Corpuscular Volume 92, Mean Corpuscular Hemoglobin 30.8, Mean Corpuscular Hemoglobin Concent 33.5, Red Cell Distribution Width 16.7H, Platelet Count 160, Mean Platelet Volume 8.4, Neutrophils (%) (Auto) , Lymphocytes (%) (Auto) , Monocytes (%) (Auto) , Eosinophils (%) (Auto) , Basophils (%) (Auto) , Differential Total Cells Counted 100, Neutrophils % (Manual) 50, Lymphocytes % (Manual) 9L, Monocytes % (Manual) 4, Eosinophils % (Manual) 36H, Basophils % (Manual) 0, Band Neutrophils 1, Platelet Estimate Adequate, Platelet Morphology Normal, Hypochromasia 1+, Anisocytosis 1+, Sodium Level 135L, Potassium Level 5.1, Chloride Level 104, Carbon Dioxide Level 27, Anion Gap 4L, Blood Urea Nitrogen 20H, Creatinine 0.7, Estimat Glomerular Filtration Rate > 60, Glucose Level 103, Uric Acid 3.9, Calcium Level 9.5, Phosphorus Level 2.6, Magnesium Level 1.8, Total Bilirubin 0.4, Aspartate Amino Transf (AST/SGOT) 19, Alanine Aminotransferase (ALT/SGPT) 16, Alkaline Phosphatase 237H, Pro-B-Type Natriuretic Peptide 1212H, Total Protein 7.6, Albumin 2.5L, Globulin 5.1, Albumin/Globulin Ratio 0.5L, Thyroid Stimulating Hormone (TSH) 62.890H Height (Feet): 5 Height (Inches): 3.00 Weight (Pounds): 145 General Appearance: lethargic EENT: normal ENT inspection Neck: supple Cardiovascular: normal rate Respiratory/Chest: decreased breath sounds Abdomen: hypoactive bowel sounds Extremities: non-tender Assessment/Plan Status: progressing Assessment/Plan: Assessment/Plan: Assessment - GT site drainage/discharge - resolved - mildly elevated alk phos - possibly vitamin D related - OBS - Resp failure, s/p Trach - s/p PEG for dysphagia, - Parkinsons - Schizophrenia - h/o decub ulcers - Severe anemia Recommendations - check vitamin D - GT care - Elevate HOB - monitor labs Gilbert Hooks MD Sep 24, 2020 10:13
[2020-09-24] MEDS: Ascorbic Acid 500mg tab ORAL SCH ×2 (10:28→17:23)
[2020-09-24] MEDS: Pantoprazole Inj IVP SCH ×2 (10:29→21:22)
[2020-09-24] MEDS: Zinc Sulfate 220mg ORAL SCH (10:29)
--- NOTE | 2020-09-24 11:49 | Pulmonology Progress Note ---
Subjective ROS Limited/Unobtainable: No Interval Events: None new Constitutional: Reports: fever, other - Wl=317.7 last night HEENT: Repors: no symptoms Respiratory: Reports: no symptoms Cardiovascular: Reports: no symptoms Gastrointestinal/Abdominal: Reports: no symptoms Genitourinary: Reports: no symptoms Allergies: Coded Allergies: No Known Allergies (Unverified , 11/22/15) All Systems: reviewed and negative except above Objective Last 24 Hour Vital Signs Date Time Temp Pulse Resp B/P (MAP) Pulse Ox O2 Delivery O2 Flow Rate FiO2 09/24/20 08:00 72 09/24/20 07:17 81 21 30 09/24/20 04:00 98.4 66 26 116/65 (82) 100 09/24/20 04:00 30 09/24/20 04:00 Mechanical Ventilator Mechanical Ventilator 09/24/20 03:36 69 09/24/20 01:30 80 24 30 09/24/20 00:44 99.7 09/24/20 00:00 101.7 86 22 134/68 (90) 100 09/24/20 00:00 Mechanical Ventilator Mechanical Ventilator 09/24/20 00:00 30 09/23/20 23:50 73 09/23/20 22:49 82 25 30 09/23/20 20:00 Mechanical Ventilator Mechanical Ventilator 09/23/20 20:00 30 09/23/20 20:00 100.4 75 25 116/55 (75) 100 09/23/20 19:34 77 17 30 09/23/20 19:27 78 09/23/20 17:19 100.4 09/23/20 16:00 30 09/23/20 16:00 Mechanical Ventilator Mechanical Ventilator 09/23/20 16:00 85 09/23/20 16:00 101.5 85 22 155/84 (107) 100 09/23/20 15:40 104 27 30 09/23/20 12:00 77 09/23/20 12:00 98.6 81 20 119/62 (81) 99 09/23/20 12:00 Mechanical Ventilator Mechanical Ventilator 09/23/20 12:00 30 Intake and Output 09/23/20 09/24/20 19:00 07:00 Intake Total 205 ml 855 ml Output Total 200 ml 600 ml Balance 5 ml 255 ml Free Water 50 ml 250 ml IV Total 55 ml 55 ml Tube Feeding 100 ml 550 ml Output Urine Total 200 ml 600 ml # Bowel Movements 1 General Appearance: no acute distress HEENT: normocephalic, atraumatic, status post trach Respiratory: chest wall non-tender, lungs clear, other - coarse rhonchi Cardiovascular: normal rate, regular rhythm Abdomen: normal bowel sounds, distended Laboratory Tests 09/24/20 07:30: White Blood Count 10.8, Red Blood Count 3.28L, Hemoglobin 10.1L, Hematocrit 30.1L, Mean Corpuscular Volume 92, Mean Corpuscular Hemoglobin 30.8, Mean Corpus cular Hemoglobin Concent 33.5, Red Cell Distribution Width 16.7H, Platelet Count 160, Mean Platelet Volume 8.4, Neutrophils (%) (Auto) , Lymphocytes (%) (Auto) , Monocytes (%) (Auto) , Eosinophils (%) (Auto) , Basophils (%) (Auto) , Di fferential Total Cells Counted 100, Neutrophils % (Manual) 50, Lymphocytes % (Manual) 9L, Monocytes % (Manual) 4, Eosinophils % (Manual) 36H, Basophils % (Manual) 0, Band Neutrophils 1, Platelet Estimate Adequate, Platelet Morphology Normal, Hypochromasia 1+, Anisocytosis 1+, Sodium Level 135L, Potassium Level 5.1, Chloride Level 104, Carbon Dioxide Level 27, Anion Gap 4L, Blood Urea Nitrogen 20H, Creatinine 0.7, Estimat Glomerular Filtration Rate > 60, Glucose Level 103, Uric Acid 3.9, Calcium Level 9.5, Phosphorus Level 2.6, Magnesium Level 1.8, Total Bilirubin 0.4, Aspartate Amino Transf (AST/SGOT) 19, Alanine Aminotransferase (ALT/SGPT) 16, Alkaline Phosphatase 237H, Pro-B-Type Natriuretic Peptide 1212H, Total Protein 7.6, Albumin 2.5L, Globulin 5.1, Albumin/Globulin Ratio 0.5L, Thyroid Stimulating Hormone (TSH) 62.890H Current Medications Medications (Trade) Dose Ordered Sig/Alex Route PRN Reason Start Time Stop Time Status Last Admin Dose Admin Acetaminophen (Tylenol) 500 mg Q4H PRN ORAL Mild Pain (Pain Scale 1-3) 09/15/20 23:15 10/15/20 23:14 09/23/20 16:49 Acetaminophen (Tylenol) 500 mg Q4H PRN ORAL Temp >100.5 09/15/20 23:15 10/15/20 23:14 09/24/20 00:14 Ascorbic Acid (Vitamin C) 250 mg TWICE A DAY ORAL 09/19/20 18:00 10/19/20 17:59 09/24/20 10:28 Clonidine HCl (Catapres Tab) 0.1 mg Q2H PRN GT For High Blood Pressure 09/17/20 17:00 12/16/20 16:59 Hydralazine HCl (Apresoline) 10 mg Q2H PRN IV For High Blood Pressure 09/17/20 17:00 12/16/20 16:59 Meropenem 1 gm/ Sodium Chloride 55 ml @ 110 mls/hr Q8HR IVPB 09/24/20 14:00 09/29/20 13:59 Multivitamins (Multivitamins) 1 tab DAILY ORAL 09/20/20 09:00 10/20/20 08:59 09/24/20 10:28 Pantoprazole (Protonix) 40 mg EVERY 12 HOURS IVP 09/17/20 14:15 10/17/20 14:14 09/24/20 10:29 Zinc Sulfate (Zinc Sulfate) 220 mg DAILY ORAL 09/20/20 09:00 09/30/20 08:59 09/24/20 10:29 Assessment/Plan Assessment/Plan 1. Anemia, likely iron deficiency. - On IV iron. - s/p transfusion per Dr. Cazares. 2. Interstitial infiltrates, has pneumonia. - Sputum -> Serratia - Antibiotics per ID. - Continue supplemental oxygen; continue ventilator, AC mode.FiO2 30% 3. Sepsis. - Antibiotics per ID. Gm neg rods in sputum CS; confirmed Serratia 4. History of fever. - Currently afebrile. 5. Possible COVID-19 infection. - Swab COVID-19 test negative. - Repeat PCR COVID-19 also negative 6. CHF. - 2D echocardiogram ordered per Cardio. 7. UTI. - On antibiotics. Has ESBL E. Coli 8. Elevated D-dimer. 9. DVT prophylaxis. - Venous duplex ultrasound negative. - on SCD 10. Chronic Respiratory Failure; continue vent; AC mode The history of Jennifer Gao has been reviewed and management options for her estevez ve been examined and discussed by Mino Childs. I have personally examined and interviewed the patient. Mino Childs MD Sep 24, 2020 11:49
[2020-09-24 12:00] VITALS: BP 128/64
--- NOTE | 2020-09-24 13:52 | Surgery Progress Note ---
Surgery Progress Note Subjective Symptoms: improved, tolerating diet, passing flatus Objective Last 24 Hour Vital Signs Date Time Temp Pulse Resp B/P (MAP) Pulse Ox O2 Delivery O2 Flow Rate FiO2 09/24/20 08:00 72 09/24/20 07:17 81 21 30 09/24/20 04:00 98.4 66 26 116/65 (82) 100 09/24/20 04:00 30 09/24/20 04:00 Mechanical Ventilator Mechanical Ventilator 09/24/20 03:36 69 09/24/20 01:30 80 24 30 09/24/20 00:44 99.7 09/24/20 00:00 101.7 86 22 134/68 (90) 100 09/24/20 00:00 Mechanical Ventilator Mechanical Ventilator 09/24/20 00:00 30 09/23/20 23:50 73 09/23/20 22:49 82 25 30 09/23/20 20:00 Mechanical Ventilator Mechanical Ventilator 09/23/20 20:00 30 09/23/20 20:00 100.4 75 25 116/55 (75) 100 09/23/20 19:34 77 17 30 09/23/20 19:27 78 09/23/20 17:19 100.4 09/23/20 16:00 30 09/23/20 16:00 Mechanical Ventilator Mechanical Ventilator 09/23/20 16:00 85 09/23/20 16:00 101.5 85 22 155/84 (107) 100 09/23/20 15:40 104 27 30 I&O Intake and Output 09/23/20 09/24/20 19:00 07:00 Intake Total 205 ml 855 ml Output Total 200 ml 600 ml Balance 5 ml 255 ml Free Water 50 ml 250 ml IV Total 55 ml 55 ml Tube Feeding 100 ml 550 ml Output Urine Total 200 ml 600 ml # Bowel Movements 1 Dressing: saturated Cardiovascular: RSR Respiratory: decreased breath sounds Abdomen: non-tender, present bowel sounds, non-distended Extremities: no edema, no tenderness, no cyanosis Laboratory Tests Test 09/24/20 07:30 White Blood Count 10.8 K/UL (4.8-10.8) Red Blood Count 3.28 M/UL (4.20-5.40) L Hemoglobin 10.1 G/DL (12.0-16.0) L Hematocrit 30.1 % (37.0-47.0) L Mean Corpuscular Volume 92 FL (80-99) Mean Corpuscular Hemoglobin 30.8 PG (27.0-31.0) Mean Corpuscular Hemoglobin Concent 33.5 G/DL (32.0-36.0) Red Cell Distribution Width 16.7 % (11.6-14.8) H Platelet Count 160 K/UL (150-450) Mean Platelet Volume 8.4 FL (6.5-10.1) Neutrophils (%) (Auto) % (45.0-75.0) Lymphocytes (%) (Auto) % (20.0-45.0) Monocytes (%) (Auto) % (1.0-10.0) Eosinophils (%) (Auto) % (0.0-3.0) Basophils (%) (Auto) % (0.0-2.0) Differential Total Cells Counted 100 Neutrophils % (Manual) 50 % (45-75) Lymphocytes % (Manual) 9 % (20-45) L Monocytes % (Manual) 4 % (1-10) Eosinophils % (Manual) 36 % (0-3) H Basophils % (Manual) 0 % (0-2) Band Neutrophils 1 % (0-8) Platelet Estimate Adequate Platelet Morphology Normal Hypochromasia 1+ Anisocytosis 1+ Sodium Level 135 MMOL/L (136-145) L Potassium Level 5.1 MMOL/L (3.5-5.1) Chloride Level 104 MMOL/L (98-107) Carbon Dioxide Level 27 MMOL/L (21-32) Anion Gap 4 mmol/L (5-15) L Blood Urea Nitrogen 20 mg/dL (7-18) H Creatinine 0.7 MG/DL (0.55-1.30) Estimat Glomerular Filtration Rate > 60 mL/min (>60) Glucose Level 103 MG/DL (74-106) Uric Acid 3.9 MG/DL (2.6-7.2) Calcium Level 9.5 MG/DL (8.5-10.1) Phosphorus Level 2.6 MG/DL (2.5-4.9) Magnesium Level 1.8 MG/DL (1.8-2.4) Total Bilirubin 0.4 MG/DL (0.2-1.0) Aspartate Amino Transf (AST/SGOT) 19 U/L (15-37) Alanine Aminotransferase (ALT/SGPT) 16 U/L (12-78) Alkaline Phosphatase 237 U/L (46-116) H Pro-B-Type Natriuretic Peptide 1212 pg/mL (0-125) H Total Protein 7.6 G/DL (6.4-8.2) Albumin 2.5 G/DL (3.4-5.0) L Globulin 5.1 g/dL Albumin/Globulin Ratio 0.5 (1.0-2.7) L Thyroid Stimulating Hormone (TSH) 62.890 uiU/mL (0.358-3.740) Plan Problems: (1) Pneumonia (2) Functional quadriplegia (3) Person under investigation for COVID-19 (4) Chronic respiratory failure (5) Dehydration (6) Hypernatremia (7) Hypothyroidism (8) Pyelonephritis (9) Protein calorie malnutrition Assessment & Plan: DAILY ESTIMATED NEEDS: Needs based on Wound, critical care 57.5kg abw 25-30 kcals/kg 6696-8287 total kcals 1.25-2 g protein/kg 72-115 g total protein 25-30 mL/kg 9867-8974 total fluid mLs NUTRITION DIAGNOSIS: * Increased kcal/prot needs R/T wound healing as evidenced by pt w/ h/o stage 4 sacral wound, eval is pending. * Swallowing difficulty R/T dysphagia, respiratory status as evidenced by pt is Trach and PEG dep. ENTERAL NUTRITION RECOMMENDATIONS: Glucerna 1.2 @ 55ml/hr x 24 hrs to provide 1320ml, 1584 kcal, 79g pro, 1063ml free H2O * As medically able, start Glucerna 1.2 @35ml/hr for 6 hrs, advance as tolerated q4-6 to goal. * Add TYRESE in 4oz water BID via PEG for wound healing * HOB over 30 degrees/ water flush per MD ADDITIONAL RECOMMENDATIONS: * Calibrated bedscale wt for accurate CBW * Wound healing: TYRESE BID, Vit C 250mg BID F/up w/ WC eval * Monitor lytes, replete as needed * Monitor BGs w/ TF-> bed side BG checks + NISS (10) Failure to thrive (child) (11) Sacral decubitus ulcer Assessment & Plan: Pt presented on admission with Tracheostomy, GT, and mult iple Pressure injuries. No erythema or evidence of skin breakdown under tracheal collar. dry dark brown skin plaque noted at R lateral chest to R flank. Full thickness stage 4 Sacral Pressure Injury with undermined borders(L)2cm x (W)2cm x (D)2cm, undermining clockwise 11-3 by 2.3cm @3o'clock.Ability to accurately assess base of wound is not fully appreciated secondary to shape of wound. (+) Epibole along edges of wound. Silver Nitrate sticks application applied to Borders. Bone is palpable when probed.Small amt brown exudate noted. No odor noted. Dalhart Atrophic scar periwound. Resolving Pressure Injury R Ischium. Dalhart epithelial noted at base of wound. Intact serous Blister noted to monica/upper L thigh. No erythema or changes in skin temp at affected site. Reabsorbing DTPI L Hallux. Base of Pressure injury is dark brown,dry without erythema,induration or fluctuance. L Heel is boggy with non-blanchable erythema. R Heel is boggy but blanchable. Tx.Plan: Cleanse Sacral wound with Saline. Loosely pack with Therahoney impregnated Kerlix.Apply Moisture Barrier Paste periwound. Cover with Optifoam drsg every 3 days and prn. Apply Moisture Barrier Paste to R Ischium. Cover with Optifoam drsg. Change every 3 days and prn. Apply Phytoplex Skin Nourishing lotion to Lateral R chest /R Flank Daily. Apply Cavilon Skin Barrier to R and L Heel. Cover each heel with Optifoam drsg.Change every 7 days and prn. Reposition at least every 2hours or as tolerated. Off-load heels with pillow. 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
[2020-09-24 16:00] VITALS: BP 114/60
--- NOTE | 2020-09-24 19:34 | NUR ---
NURSE NOTES: Received report from CRISTY Miguel. Pt is awake, opens eyes, non-tracking, non-verbal. Does not appear to be in distress. clinical research monitor shows SR and pt's O2 saturation at 100% on AC 12, TV 400, FiO2 30%, PEEP 5. No signs of pain noted. Gt is intact, residual of 10cc, running Glucerna 1.2 50cc/hr. Rectal tube is intact, purewick suctions well. Skin issues noted. R hand 22g and L hand 24g intact, asymptomatic, flushing well and in saline lock. HOB elevated, side rails x3, call light within reach, bed alarmed, locked, and in lowest position. Will continue plan of care, will continue to monitor.
[2020-09-24 20:00] VITALS: BP 93/68
--- NOTE | 2020-09-24 21:29 | Cardiac Electrophysiology PN ---
Assessment/Plan Assessment/Plan 1. Hypertension, currently blood pressure stable. On p.r.n. Hydralazine and clonidine 2. VDRF status post tracheostomy on 30% FiO2, in sinus rhythm. COVID was negative. 3. Severe anemia, hemoglobin 7.5. S/P blood transfusion. Etiology is not clear at this time, but creatinine is within normal range. 4. Elevated BNP of more than 4000. Echo EF 65% 5. Dysphagia, status post PEG replacement 09/22/20. 6. VRE sepsis ( Amp sensitive), Gram positive bacteremia, Pseudomonas pneumonia, E coli UTI, on iv Abx per ID 7. Sacral Decubitus DW RN Subjective Subjective Off covid isolation. GT replaced 09/22/20 On the Vent with 30% Fio2 off restraints.In SR on iv ABx Objective Last 24 Hour Vital Signs Date Time Temp Pulse Resp B/P (MAP) Pulse Ox O2 Delivery O2 Flow Rate FiO2 09/24/20 19:45 65 16 30 09/24/20 16:49 100.0 09/24/20 16:00 101.7 81 18 114/60 (78) 97 09/24/20 16:00 Mechanical Ventilator Mechanical Ventilator 09/24/20 16:00 83 09/24/20 16:00 30 09/24/20 13:25 72 15 30 09/24/20 12:00 74 09/24/20 12:00 Mechanical Ventilator Mechanical Ventilator 09/24/20 12:00 100.1 78 19 128/64 (85) 97 09/24/20 12:00 30 09/24/20 08:00 Mechanical Ventilator Mechanical Ventilator 09/24/20 08:00 72 09/24/20 08:00 99.0 63 24 125/76 (92) 97 09/24/20 08:00 30 09/24/20 07:17 81 21 30 09/24/20 04:00 98.4 66 26 116/65 (82) 100 09/24/20 04:00 30 09/24/20 04:00 Mechanical Ventilator Mechanical Ventilator 09/24/20 03:36 69 09/24/20 01:30 80 24 30 09/24/20 00:44 99.7 09/24/20 00:00 101.7 86 22 134/68 (90) 100 09/24/20 00:00 Mechanical Ventilator Mechanical Ventilator 09/24/20 00:00 30 09/23/20 23:50 73 09/23/20 22:49 82 25 30 Intake and Output 09/23/20 09/24/20 19:00 07:00 Intake Total 205 ml 905 ml Output Total 200 ml 600 ml Balance 5 ml 305 ml Free Water 50 ml 250 ml IV Total 55 ml 55 ml Tube Feeding 100 ml 600 ml Output Urine Total 200 ml 600 ml # Bowel Movements 1 Laboratory Tests Test 09/24/20 07:30 White Blood Count 10.8 K/UL (4.8-10.8) Red Blood Count 3.28 M/UL (4.20-5.40) L Hemoglobin 10.1 G/DL (12.0-16.0) L Hematocrit 30.1 % (37.0-47.0) L Mean Corpuscular Volume 92 FL (80-99) Mean Corpuscular Hemoglobin 30.8 PG (27.0-31.0) Mean Corpuscular Hemoglobin Concent 33.5 G/DL (32.0-36.0) Red Cell Distribution Width 16.7 % (11.6-14.8) H Platelet Count 160 K/UL (150-450) Mean Platelet Volume 8.4 FL (6.5-10.1) Neutrophils (%) (Auto) % (45.0-75.0) Lymphocytes (%) (Auto) % (20.0-45.0) Monocytes (%) (Auto) % (1.0-10.0) Eosinophils (%) (Auto) % (0.0-3.0) Basophils (%) (Auto) % (0.0-2.0) Differential Total Cells Counted 100 Neutrophils % (Manual) 50 % (45-75) Lymphocytes % (Manual) 9 % (20-45) L Monocytes % (Manual) 4 % (1-10) Eosinophils % (Manual) 36 % (0-3) H Basophils % (Manual) 0 % (0-2) Band Neutrophils 1 % (0-8) Platelet Estimate Adequate Platelet Morphology Normal Hypochromasia 1+ Anisocytosis 1+ Sodium Level 135 MMOL/L (136-145) L Potassium Level 5.1 MMOL/L (3.5-5.1) Chloride Level 104 MMOL/L (98-107) Carbon Dioxide Level 27 MMOL/L (21-32) Anion Gap 4 mmol/L (5-15) L Blood Urea Nitrogen 20 mg/dL (7-18) H Creatinine 0.7 MG/DL (0.55-1.30) Estimat Glomerular Filtration Rate > 60 mL/min (>60) Glucose Level 103 MG/DL (74-106) Uric Acid 3.9 MG/DL (2.6-7.2) Calcium Level 9.5 MG/DL (8.5-10.1) Phosphorus Level 2.6 MG/DL (2.5-4.9) Magnesium Level 1.8 MG/DL (1.8-2.4) Total Bilirubin 0.4 MG/DL (0.2-1.0) Aspartate Amino Transf (AST/SGOT) 19 U/L (15-37) Alanine Aminotransferase (ALT/SGPT) 16 U/L (12-78) Alkaline Phosphatase 237 U/L (46-116) H Pro-B-Type Natriuretic Peptide 1212 pg/mL (0-125) H Total Protein 7.6 G/DL (6.4-8.2) Albumin 2.5 G/DL (3.4-5.0) L Globulin 5.1 g/dL Albumin/Globulin Ratio 0.5 (1.0-2.7) L Thyroid Stimulating Hormone (TSH) 62.890 uiU/mL (0.358-3.740) Objective HEAD AND NECK: No JVD.S/P Trach LUNGS: Coarse rhonchi. CARDIOVASCULAR: Regular S1 and S2 with no gallop. ABDOMEN: Status post PEG. EXTREMITIES: 1+ pitting edema. Flex Bess MD Sep 24, 2020 21:29
--- NOTE | 2020-09-24 21:50 | General Progress Note ---
Subjective ROS Limited/Unobtainable: Yes Allergies: Coded Allergies: No Known Allergies (Unverified , 11/22/15) Objective Last 24 Hour Vital Signs Date Time Temp Pulse Resp B/P (MAP) Pulse Ox O2 Delivery O2 Flow Rate FiO2 09/24/20 19:45 65 16 30 09/24/20 16:49 100.0 09/24/20 16:00 101.7 81 18 114/60 (78) 97 09/24/20 16:00 Mechanical Ventilator Mechanical Ventilator 09/24/20 16:00 83 09/24/20 16:00 30 09/24/20 13:25 72 15 30 09/24/20 12:00 74 09/24/20 12:00 Mechanical Ventilator Mechanical Ventilator 09/24/20 12:00 100.1 78 19 128/64 (85) 97 09/24/20 12:00 30 09/24/20 08:00 Mechanical Ventilator Mechanical Ventilator 09/24/20 08:00 72 09/24/20 08:00 99.0 63 24 125/76 (92) 97 09/24/20 08:00 30 09/24/20 07:17 81 21 30 09/24/20 04:00 98.4 66 26 116/65 (82) 100 09/24/20 04:00 30 09/24/20 04:00 Mechanical Ventilator Mechanical Ventilator 09/24/20 03:36 69 09/24/20 01:30 80 24 30 09/24/20 00:44 99.7 09/24/20 00:00 101.7 86 22 134/68 (90) 100 09/24/20 00:00 Mechanical Ventilator Mechanical Ventilator 09/24/20 00:00 30 09/23/20 23:50 73 09/23/20 22:49 82 25 30 Intake and Output 09/23/20 09/24/20 19:00 07:00 Intake Total 205 ml 905 ml Output Total 200 ml 600 ml Balance 5 ml 305 ml Free Water 50 ml 250 ml IV Total 55 ml 55 ml Tube Feeding 100 ml 600 ml Output Urine Total 200 ml 600 ml # Bowel Movements 1 Laboratory Tests 09/24/20 07:30: White Blood Count 10.8, Red Blood Count 3.28L, Hemoglobin 10.1L, Hematocrit 30.1L, Mean Corpuscular Volume 92, Mean Corpuscular Hemoglobin 30.8, Mean Corpuscular Hemoglobin Concent 33.5, Red Cell Distribution Width 16.7H, Platelet Count 160, Mean Platelet Volume 8.4, Neutrophils (%) (Auto) , Lymphocytes (%) (Auto) , Monocytes (%) (Auto) , Eosinophils (%) (Auto) , Basophils (%) (Auto) , Differential Total Cells Counted 100, Neutrophils % (Manual) 50, Lymphocytes % (Manual) 9L, Monocytes % (Manual) 4, Eosinophils % (Manual) 36H, Basophils % (Manual) 0, Band Neutrophils 1, Platelet Estimate Adequate, Platelet Morphology Normal, Hypochromasia 1+, Anisocytosis 1+, Sodium Level 135L, Potassium Level 5.1, Chloride Level 104, Carbon Dioxide Level 27, Anion Gap 4L, Blood Urea Nitrogen 20H, Creatinine 0.7, Estimat Glomerular Filtration Rate > 60, Glucose Level 103, Uric Acid 3.9, Calcium Level 9.5, Phosphorus Level 2.6, Magnesium Level 1.8, Total Bilirubin 0.4, Aspartate Amino Transf (AST/SGOT) 19, Alanine Aminotransferase (ALT/SGPT) 16, Alkaline Phosphatase 237H, Pro-B-Type Natriuretic Peptide 1212H, Total Protein 7.6, Albumin 2.5L, Globulin 5.1, Albumin/Globulin Ratio 0.5L, Thyroid Stimulating Hormone (TSH) 62.890H Height (Feet): 5 Height (Inches): 3.00 Weight (Pounds): 145 Assessment/Plan Problem List: (1) Hypothyroidism ICD Codes: E03.9 - Hypothyroidism, unspecified SNOMED: 69869104 (2) Chronic respiratory failure ICD Codes: J96.10 - Chronic respiratory failure, unspecified whether with hypoxia or hypercapnia SNOMED: 52624248 (3) Functional quadriplegia ICD Codes: R53.2 - Functional quadriplegia SNOMED: 465079438487999 (4) Protein calorie malnutrition ICD Codes: E46 - Unspecified protein-calorie malnutrition SNOMED: 300540987 (5) Failure to thrive (child) ICD Codes: R62.51 - Failure to thrive (child) SNOMED: 736045408 (6) Sacral decubitus ulcer ICD Codes: L89.159 - Pressure ulcer of sacral region, unspecified stage SNOMED: 326926768 (7) Tracheostomy dependence ICD Codes: Z93.0 - Tracheostomy status SNOMED: 409465950 (8) Sepsis ICD Codes: A41.9 - Sepsis, unspecified organism SNOMED: 94322865 (9) Anemia ICD Codes: D64.9 - Anemia, unspecified SNOMED: 158521600 Qualifiers: Qualified Codes: D64.9 - Anemia, unspecified (10) UTI (urinary tract infection) ICD Codes: N39.0 - Urinary tract infection, site not specified SNOMED: 33616186 Qualifiers: Qualified Codes: N39.0 - Urinary tract infection, site not specified Status: progressing Assessment/Plan: trach and peg pna sepsis resp insuff not improvng rectal tube Sandeep Oneil MD Sep 24, 2020 21:50
[2020-09-25] VITALS: BP 117/62
--- NOTE | 2020-09-25 00:23 | NUR ---
NURSE NOTES: Pt is asleep, appears to be in no distress or pain. Vital signs are stable. Will continue to monitor.
[2020-09-25 04:00] VITALS: BP 110/48
--- NOTE | 2020-09-25 04:11 | NUR ---
NURSE NOTES: Cleaned and turned pt. Oral care and suction performed. Linens changed. Pt is calm, no change in condition. No distress or pain noted. Will continue to monitor.
[2020-09-25] MEDS: Meropenem 1 GM in NS 55 ML IVPB SCH ×3 (05:11→21:04)
--- NOTE | 2020-09-25 07:24 | NUR ---
NURSE HAND-OFF REPORT: Important Events on Shift:[Stable at this time] Patient Status: [Stable] Diet: [Glucerna 1.2 50cc/hr] Pending Orders: [NA] Pending Results/Labs:[NA] Pending MD notification:[NA] Latest Vital Signs: Temperature 98.6 , Pulse 70 , B/P 110 /48 , Respiratory Rate 20 , O2 SAT 100 , Mechanical Ventilator, O2 Flow Rate 50.0 . Vital Sign Comment: [Stable] EKG Rhythm: Sinus Rhythm Rhythm change?: N MD Notified?: - MD Response: Latest Case Fall Score: 50 Fall Risk: High Risk Safety Measures: Call light Within Reach, Bed Alarm Zone 3, Side Rails Side Rails x2, Bed position Low and Locked. Fall Precautions: Yellow Socks Yellow Gown Door Sign Report given to [CRISTY Moreno].
--- NOTE | 2020-09-25 07:24 | NUR ---
NURSE NOTES: Received report from CRISTY Moreno. Patient is on bed, no signs of grimacing and distress noted. Patient has a trache P7, AC 12, TV 400, FiO2 30%, PEEP 5, tolerating well. Patient has a GT patent, intact, running Glucerna 1.2 @ 50 cc/hr, tolerating well. Patient has a rectal tube, patent, intact. R hand 22 g, patent, intact, saline locked, L hand 24 g, patent, intact, saline locked. HOB elevated, bed is on lowest position, locked, side rails up, call light within reach. Patient will continue to be monitored.
[2020-09-25 08:00] VITALS: BP 115/62
[2020-09-25] MEDS: Zinc Sulfate 220mg ORAL SCH (08:46)
[2020-09-25] MEDS: Pantoprazole Inj IVP SCH ×2 (08:47→21:04)
[2020-09-25] MEDS: Ascorbic Acid 500mg tab ORAL SCH ×2 (08:48→17:14)
--- NOTE | 2020-09-25 09:29 | Hematology/Onc Progress Note ---
Assessment/Plan Assessment/Plan LABORATORY DATA: 04/2020 white count 4.7, platelets 140 otherwise CBC is normal. BMP shows chloride 110, creatinine 0.4. Albumin 2.9, otherwise normal. INR 1.0, PTT 27. Urinalysis shows 2+ leukocyte esterase. 09/16 wbc 10, hgb 7.5, plt 126 Imaging 07/01/20 cxr Bilateral patchy airspace opacities. Differential includes multifocal pneumonia and pulmonary edema. 09/16/20 cxr b/l infiltrates noted Assessment and Recommendations # Anemia of iron deficiency, has been persistent for months, now improved, as ferritin better --> Anemia workup has been ordered--> improved --> No evidence of hemolysis is noted, peripheral smear has been reviewed. --> Hgb goal >7. Transfuse prn. --> Iron iv not needed any further --> Medications have been reviewed --> gb 9-->8.4->>>>7.5-->9.4-->9->10-->9.4->10.1 # Right breast calcifications --> does not have a breast mass on exam --> f/u as outpatient with mammo as needed --> do not do a us breast here # Thrombocytopenia - potential causes multifactorial, evaluate liver and viral etiologies to begin, also could be related to underlying medications, no wimproved --> Hep panel and HIV prior negative -> plt 183->203->199-->125->130 --> abx # Leukocytosis with Pna --> antibiotics per id --> wbc 16->10.8 # Sepsis --> antibiotics per Infectious Disease. --> ABX vanc/zosyn->meropenem # Dehydration. --> PT and Dietary evaluation. # Hypertension --> Blood pressure control. # Dvt ppx scds The timing of this note does not necessarily reflect the time of the patient was seen Greatly appreciate consultation! Subjective Allergies: Coded Allergies: No Known Allergies (Unverified , 11/22/15) All Systems: reviewed and negative except above Subjective 09/18 labs are noted, no bleeding, seen by pulm, cbc is pending 09/19 gtube is running, meds reviewed, labs noted 09/20 labs reviewed, meds noted, cbc is pending, vanc was added recently 09/21 labs reviewed, meds noetd, hgb 10, bactrim, yovani, vanc 09/22 is satting well on the vent, abx, labs still pending for am 09/23 remains on vent, not in acute distress, no bleeding, no night sweats 09/25 labs pending, on trach, vent gtube, meds reviewed, feeds ongoing Objective Objective Current Medications Medications (Trade) Dose Ordered Sig/Alex Route PRN Reason Start Time Stop Time Status Last Admin Dose Admin Acetaminophen (Tylenol) 500 mg Q4H PRN ORAL Mild Pain (Pain Scale 1-3) 09/15/20 23:15 10/15/20 23:14 09/23/20 16:49 Acetaminophen (Tylenol) 500 mg Q4H PRN ORAL Temp >100.5 09/15/20 23:15 10/15/20 23:14 09/24/20 16:19 Ascorbic Acid (Vitamin C) 250 mg TWICE A DAY ORAL 09/19/20 18:00 10/19/20 17:59 09/25/20 08:48 Clonidine HCl (Catapres Tab) 0.1 mg Q2H PRN GT For High Blood Pressure 09/17/20 17:00 12/16/20 16:59 Hydralazine HCl (Apresoline) 10 mg Q2H PRN IV For High Blood Pressure 09/17/20 17:00 12/16/20 16:59 Meropenem 1 gm/ Sodium Chloride 55 ml @ 110 mls/hr Q8HR IVPB 09/24/20 14:00 09/29/20 13:59 09/25/20 05:11 Multivitamins (Multivitamins) 1 tab DAILY ORAL 09/20/20 09:00 10/20/20 08:59 09/25/20 08:47 Pantoprazole (Protonix) 40 mg EVERY 12 HOURS IVP 09/17/20 14:15 10/17/20 14:14 09/25/20 08:47 Zinc Sulfate (Zinc Sulfate) 220 mg DAILY ORAL 09/20/20 09:00 09/30/20 08:59 09/25/20 08:46 Last 24 Hour Vital Signs Date Time Temp Pulse Resp B/P (MAP) Pulse Ox O2 Delivery O2 Flow Rate FiO2 09/25/20 07:18 72 20 30 09/25/20 04:00 30 09/25/20 04:00 Mechanical Ventilator Mechanical Ventilator 09/25/20 04:00 98.6 70 20 110/48 (68) 100 09/25/20 03:53 67 09/25/20 01:45 66 14 30 09/25/20 00:00 Mechanical Ventilator Mechanical Ventilator 09/25/20 00:00 98.9 98 18 117/62 (80) 100 09/25/20 00:00 30 09/24/20 23:50 72 09/24/20 20:00 Mechanical Ventilator Mechanical Ventilator 09/24/20 20:00 99.1 87 20 93/68 (76) 100 09/24/20 20:00 30 09/24/20 19:54 62 09/24/20 19:45 65 16 30 09/24/20 16:49 100.0 09/24/20 16:00 101.7 81 18 114/60 (78) 97 09/24/20 16:00 Mechanical Ventilator Mechanical Ventilator 09/24/20 16:00 83 09/24/20 16:00 30 09/24/20 13:25 72 15 30 09/24/20 12:00 74 09/24/20 12:00 Mechanical Ventilator Mechanical Ventilator 09/24/20 12:00 100.1 78 19 128/64 (85) 97 09/24/20 12:00 30 09/24/20 08:00 Mechanical Ventilator Mechanical Ventilator 09/24/20 08:00 72 09/24/20 08:00 99.0 63 24 125/76 (92) 97 09/24/20 08:00 30 09/24/20 07:17 81 21 30 09/24/20 04:00 98.4 66 26 116/65 (82) 100 09/24/20 04:00 30 09/24/20 04:00 Mechanical Ventilator Mechanical Ventilator 09/24/20 03:36 69 09/24/20 01:30 80 24 30 09/24/20 00:44 99.7 09/24/20 00:00 101.7 86 22 134/68 (90) 100 09/24/20 00:00 Mechanical Ventilator Mechanical Ventilator 09/24/20 00:00 30 09/23/20 23:50 73 09/23/20 22:49 82 25 30 09/23/20 20:00 Mechanical Ventilator Mechanical Ventilator 09/23/20 20:00 30 09/23/20 20:00 100.4 75 25 116/55 (75) 100 09/23/20 19:34 77 17 30 09/23/20 19:27 78 09/23/20 17:19 100.4 09/23/20 16:00 30 09/23/20 16:00 Mechanical Ventilator Mechanical Ventilator 09/23/20 16:00 85 09/23/20 16:00 101.5 85 22 155/84 (107) 100 09/23/20 15:40 104 27 30 09/23/20 12:00 77 09/23/20 12:00 98.6 81 20 119/62 (81) 99 09/23/20 12:00 Mechanical Ventilator Mechanical Ventilator 09/23/20 12:00 30 09/23/20 11:00 81 19 30 Intake and Output 09/24/20 09/25/20 19:00 07:00 Intake Total 650 ml 650 ml Output Total 500 ml 820 ml Balance 150 ml -170 ml Free Water 100 ml 100 ml Tube Feeding 550 ml 550 ml Output Urine Total 500 ml 800 ml Stool Total 20 ml Labs Test 09/23/20 03:20 09/24/20 07:30 09/25/20 08:30 White Blood Count 10.8 K/UL (4.8-10.8) Red Blood Count 3.28 M/UL (4.20-5.40) Hemoglobin 10.1 G/DL (12.0-16.0) Hematocrit 30.1 % (37.0-47.0) Mean Corpuscular Volume 92 FL (80-99) Mean Corpuscular Hemoglobin 30.8 PG (27.0-31.0) Mean Corpuscular Hemoglobin Concent 33.5 G/DL (32.0-36.0) Red Cell Distribution Width 16.7 % (11.6-14.8) Platelet Count 160 K/UL (150-450) Mean Platelet Volume 8.4 FL (6.5-10.1) Neutrophils (%) (Auto) % (45.0-75.0) Lymphocytes (%) (Auto) % (20.0-45.0) Monocytes (%) (Auto) % (1.0-10.0) Eosinophils (%) (Auto) % (0.0-3.0) Basophils (%) (Auto) % (0.0-2.0) Differential Total Cells Counted 100 Neutrophils % (Manual) 50 % (45-75) Lymphocytes % (Manual) 9 % (20-45) Monocytes % (Manual) 4 % (1-10) Eosinophils % (Manual) 36 % (0-3) Basophils % (Manual) 0 % (0-2) Band Neutrophils 1 % (0-8) Platelet Estimate Adequate Platelet Morphology Normal Hypochromasia 1+ Anisocytosis 1+ Sodium Level 135 MMOL/L (136-145) Potassium Level 5.1 MMOL/L (3.5-5.1) Chloride Level 104 MMOL/L (98-107) Carbon Dioxide Level 27 MMOL/L (21-32) Anion Gap 4 mmol/L (5-15) Blood Urea Nitrogen 20 mg/dL (7-18) Creatinine 0.7 MG/DL (0.55-1.30) Estimat Glomerular Filtration Rate > 60 mL/min (>60) Glucose Level 103 MG/DL (74-106) Uric Acid 3.9 MG/DL (2.6-7.2) Calcium Level 9.5 MG/DL (8.5-10.1) Phosphorus Level 2.6 MG/DL (2.5-4.9) Magnesium Level 1.8 MG/DL (1.8-2.4) Total Bilirubin 0.4 MG/DL (0.2-1.0) Aspartate Amino Transf (AST/SGOT) 19 U/L (15-37) Alanine Aminotransferase (ALT/SGPT) 16 U/L (12-78) Alkaline Phosphatase 237 U/L (46-116) Pro-B-Type Natriuretic Peptide 1212 pg/mL (0-125) Total Protein 7.6 G/DL (6.4-8.2) Albumin 2.5 G/DL (3.4-5.0) Globulin 5.1 g/dL Albumin/Globulin Ratio 0.5 (1.0-2.7) Thyroid Stimulating Hormone (TSH) 62.890 uiU/mL (0.358-3.740) Height (Feet): 5 Height (Inches): 3.00 Weight (Pounds): 145 Objective PHYSICAL EXAMINATION: GENERAL: Slightly confused in bed, oriented x1, CARDIOVASCULAR: No murmur. LUNGS: Poor air exchange.+vent/trach ABDOMEN: Bowel sounds distant.++peg EXTREMITIES: No cyanosis, clubbing, or edema NEUROLOGIC: Neck, weakness as well leaning forward.bedbound++ Alan Cazares MD Sep 25, 2020 09:29
--- NOTE | 2020-09-25 10:13 | Pulmonology Progress Note ---
Subjective ROS Limited/Unobtainable: Yes Interval Events: None new Constitutional: Reports: fever, other - Dc=801.7 last night HEENT: Repors: no symptoms Respiratory: Reports: no symptoms Cardiovascular: Reports: no symptoms Gastrointestinal/Abdominal: Reports: no symptoms Genitourinary: Reports: no symptoms Allergies: Coded Allergies: No Known Allergies (Unverified , 11/22/15) All Systems: reviewed and negative except above Objective Last 24 Hour Vital Signs Date Time Temp Pulse Resp B/P (MAP) Pulse Ox O2 Delivery O2 Flow Rate FiO2 09/25/20 08:00 30 09/25/20 08:00 98.1 67 18 115/62 (79) 100 09/25/20 08:00 Mechanical Ventilator Mechanical Ventilator 09/25/20 07:51 68 09/25/20 07:18 72 20 30 09/25/20 04:00 30 09/25/20 04:00 Mechanical Ventilator Mechanical Ventilator 09/25/20 04:00 98.6 70 20 110/48 (68) 100 09/25/20 03:53 67 09/25/20 01:45 66 14 30 09/25/20 00:00 Mechanical Ventilator Mechanical Ventilator 09/25/20 00:00 98.9 98 18 117/62 (80) 100 09/25/20 00:00 30 09/24/20 23:50 72 09/24/20 20:00 Mechanical Ventilator Mechanical Ventilator 09/24/20 20:00 99.1 87 20 93/68 (76) 100 09/24/20 20:00 30 09/24/20 19:54 62 09/24/20 19:45 65 16 30 09/24/20 16:49 100.0 09/24/20 16:00 101.7 81 18 114/60 (78) 97 09/24/20 16:00 Mechanical Ventilator Mechanical Ventilator 09/24/20 16:00 83 09/24/20 16:00 30 09/24/20 13:25 72 15 30 09/24/20 12:00 74 09/24/20 12:00 Mechanical Ventilator Mechanical Ventilator 09/24/20 12:00 100.1 78 19 128/64 (85) 97 09/24/20 12:00 30 Intake and Output 09/24/20 09/25/20 19:00 07:00 Intake Total 650 ml 650 ml Output Total 500 ml 820 ml Balance 150 ml -170 ml Free Water 100 ml 100 ml Tube Feeding 550 ml 550 ml Output Urine Total 500 ml 800 ml Stool Total 20 ml General Appearance: no acute distress HEENT: normocephalic, atraumatic, status post trach Respiratory: chest wall non-tender, lungs clear, other - coarse rhonchi Cardiovascular: normal rate, regular rhythm Abdomen: normal bowel sounds, distended Laboratory Tests 09/25/20 08:30: White Blood Count [Pending], Red Blood Count [Pending], Hemoglobin [Pending], Hematocrit [Pending], Mean Corpuscular Volume [Pending], Mean Corpuscular H emoglobin [Pending], Mean Corpuscular Hemoglobin Concent [Pending], Red Cell Distribution Width [Pending], Platelet Count [Pending], Mean Platelet Volume [Pending], Neutrophils (%) (Auto) [Pending], Lymphocytes (%) (Auto) [Pending], Monocytes (%) (Auto) [Pending], Eosinophils (%) (Auto) [Pending], Basophils (%) (Auto) [Pending] Current Medications Medications (Trade) Dose Ordered Sig/Alex Route PRN Reason Start Time Stop Time Status Last Admin Dose Admin Acetaminophen (Tylenol) 500 mg Q4H PRN ORAL Mild Pain (Pain Scale 1-3) 09/15/20 23:15 10/15/20 23:14 09/23/20 16:49 Acetaminophen (Tylenol) 500 mg Q4H PRN ORAL Temp >100.5 09/15/20 23:15 10/15/20 23:14 09/24/20 16:19 Ascorbic Acid (Vitamin C) 250 mg TWICE A DAY ORAL 09/19/20 18:00 10/19/20 17:59 09/25/20 08:48 Clonidine HCl (Catapres Tab) 0.1 mg Q2H PRN GT For High Blood Pressure 09/17/20 17:00 12/16/20 16:59 Hydralazine HCl (Apresoline) 10 mg Q2H PRN IV For High Blood Pressure 09/17/20 17:00 12/16/20 16:59 Meropenem 1 gm/ Sodium Chloride 55 ml @ 110 mls/hr Q8HR IVPB 09/24/20 14:00 09/29/20 13:59 09/25/20 05:11 Multivitamins (Multivitamins) 1 tab DAILY ORAL 09/20/20 09:00 10/20/20 08:59 09/25/20 08:47 Pantoprazole (Protonix) 40 mg EVERY 12 HOURS IVP 09/17/20 14:15 10/17/20 14:14 09/25/20 08:47 Zinc Sulfate (Zinc Sulfate) 220 mg DAILY ORAL 09/20/20 09:00 09/30/20 08:59 09/25/20 08:46 Assessment/Plan Assessment/Plan 1. Anemia, likely iron deficiency. - On IV iron. - s/p transfusion per Dr. aCzares. 2. Interstitial infiltrates, has pneumonia. - Sputum -> Serratia - Antibiotics per ID. - Continue supplemental oxygen; continue ventilator, AC mode.FiO2 30% 3. Sepsis. - Antibiotics per ID. Gm neg rods in sputum CS; confirmed Serratia 4. History of fever. - Currently afebrile. 5. Possible COVID-19 infection. - Swab COVID-19 test negative. - Repeat PCR COVID-19 also negative 6. CHF. - 2D echocardiogram ordered per Cardio. 7. UTI. - On antibiotics. Has ESBL E. Coli 8. Elevated D-dimer. 9. DVT prophylaxis. - Venous duplex ultrasound negative. - on SCD 10. Chronic Respiratory Failure; continue vent; AC mode The history of Jennifer Gao has been reviewed and management options for her have been examined and discussed by Mino Childs. I have personally examined and interviewed the patient. Mino Childs MD Sep 25, 2020 10:13
--- NOTE | 2020-09-25 10:43 | General Progress Note ---
Subjective ROS Limited/Unobtainable: No Allergies: Coded Allergies: No Known Allergies (Unverified , 11/22/15) Objective Last 24 Hour Vital Signs Date Time Temp Pulse Resp B/P (MAP) Pulse Ox O2 Delivery O2 Flow Rate FiO2 09/25/20 08:00 30 09/25/20 08:00 98.1 67 18 115/62 (79) 100 09/25/20 08:00 Mechanical Ventilator Mechanical Ventilator 09/25/20 07:51 68 09/25/20 07:18 72 20 30 09/25/20 04:00 30 09/25/20 04:00 Mechanical Ventilator Mechanical Ventilator 09/25/20 04:00 98.6 70 20 110/48 (68) 100 09/25/20 03:53 67 09/25/20 01:45 66 14 30 09/25/20 00:00 Mechanical Ventilator Mechanical Ventilator 09/25/20 00:00 98.9 98 18 117/62 (80) 100 09/25/20 00:00 30 09/24/20 23:50 72 09/24/20 20:00 Mechanical Ventilator Mechanical Ventilator 09/24/20 20:00 99.1 87 20 93/68 (76) 100 09/24/20 20:00 30 09/24/20 19:54 62 09/24/20 19:45 65 16 30 09/24/20 16:49 100.0 09/24/20 16:00 101.7 81 18 114/60 (78) 97 09/24/20 16:00 Mechanical Ventilator Mechanical Ventilator 09/24/20 16:00 83 09/24/20 16:00 30 09/24/20 13:25 72 15 30 09/24/20 12:00 74 09/24/20 12:00 Mechanical Ventilator Mechanical Ventilator 09/24/20 12:00 100.1 78 19 128/64 (85) 97 09/24/20 12:00 30 Intake and Output 09/24/20 09/25/20 19:00 07:00 Intake Total 650 ml 650 ml Output Total 500 ml 820 ml Balance 150 ml -170 ml Free Water 100 ml 100 ml Tube Feeding 550 ml 550 ml Output Urine Total 500 ml 800 ml Stool Total 20 ml Laboratory Tests 09/25/20 08:30: White Blood Count [Pending], Red Blood Count [Pending], Hemoglobin [Pending], Hematocrit [Pending], Mean Corpuscular Volume [Pending], Mean Corpuscular Hemoglobin [Pending], Mean Corpuscular Hemoglobin Concent [Pending], Red Cell Distribution Width [Pending], Platelet Count [Pending], Mean Platelet Volume [Pending], Neutrophils (%) (Auto) [Pending], Lymphocytes (%) (Auto) [Pending], Monocytes (%) (Auto) [Pending], Eosinophils (%) (Auto) [Pending], Basophils (%) (Auto) [Pending] Height (Feet): 5 Height (Inches): 3.00 Weight (Pounds): 145 General Appearance: no apparent distress EENT: PERRL/EOMI Neck: supple Cardiovascular: normal rate Respiratory/Chest: decreased breath sounds Abdomen: normal bowel sounds, non tender, soft Extremities: non-tender Assessment/Plan Status: progressing Assessment/Plan: Assessment/Plan: Assessment - GT site drainage/discharge - resolved - mildly elevated alk phos - possibly vitamin D related - OBS - Resp failure, s/p Trach - s/p PEG for dysphagia, - Parkinsons - Schizophrenia - h/o decub ulcers - Severe anemia Recommendations - check vitamin D - GT care - Elevate HOB - monitor labs Gilbert Hooks MD Sep 25, 2020 10:43
[2020-09-25 11:32] LABS: HEMATOCRIT 30.7 % (37.0-47.0); HEMOGLOBIN 10.4 G/DL (12.0-16.0); MEAN CORPUSCULAR VOLUME 92 FL (80-99); PLATELET COUNT 178 K/UL (150-450); RED BLOOD COUNT 3.34 M/UL (4.20-5.40); RED CELL DISTRIBUTION WIDTH 17.3 % (11.6-14.8); WHITE BLOOD COUNT 16.1 K/UL (4.8-10.8)
[2020-09-25 12:00] VITALS: BP 115/65
[2020-09-25 16:00] VITALS: BP 121/58
--- NOTE | 2020-09-25 18:03 | Surgery Progress Note ---
Surgery Progress Note Subjective Symptoms: improved, tolerating diet, passing flatus Objective Last 24 Hour Vital Signs Date Time Temp Pulse Resp B/P (MAP) Pulse Ox O2 Delivery O2 Flow Rate FiO2 09/25/20 16:00 30 09/25/20 16:00 98.4 75 21 121/58 (79) 100 09/25/20 16:00 Mechanical Ventilator Mechanical Ventilator 09/25/20 15:38 76 09/25/20 15:23 79 23 30 09/25/20 12:00 30 09/25/20 12:00 Mechanical Ventilator Mechanical Ventilator 09/25/20 12:00 98.2 71 22 115/65 (82) 100 09/25/20 11:31 70 09/25/20 11:17 65 19 30 09/25/20 08:00 30 09/25/20 08:00 98.1 67 18 115/62 (79) 100 09/25/20 08:00 Mechanical Ventilator Mechanical Ventilator 09/25/20 07:51 68 09/25/20 07:18 72 20 30 09/25/20 04:00 30 09/25/20 04:00 Mechanical Ventilator Mechanical Ventilator 09/25/20 04:00 98.6 70 20 110/48 (68) 100 09/25/20 03:53 67 09/25/20 01:45 66 14 30 09/25/20 00:00 Mechanical Ventilator Mechanical Ventilator 09/25/20 00:00 98.9 98 18 117/62 (80) 100 09/25/20 00:00 30 09/24/20 23:50 72 09/24/20 20:00 Mechanical Ventilator Mechanical Ventilator 09/24/20 20:00 99.1 87 20 93/68 (76) 100 09/24/20 20:00 30 09/24/20 19:54 62 09/24/20 19:45 65 16 30 I&O Intake and Output 09/24/20 09/25/20 19:00 07:00 Intake Total 650 ml 650 ml Output Total 500 ml 820 ml Balance 150 ml -170 ml Free Water 100 ml 100 ml Tube Feeding 550 ml 550 ml Output Urine Total 500 ml 800 ml Stool Total 20 ml Dressing: saturated Cardiovascular: RSR Respiratory: decreased breath sounds Abdomen: soft, non-tender, present bowel sounds Extremities: no tenderness, no cyanosis Laboratory Tests Test 09/25/20 11:15 White Blood Count 16.1 K/UL (4.8-10.8) H Red Blood Count 3.34 M/UL (4.20-5.40) L Hemoglobin 10.4 G/DL (12.0-16.0) L Hematocrit 30.7 % (37.0-47.0) L Mean Corpuscular Volume 92 FL (80-99) Mean Corpuscular Hemoglobin 31.2 PG (27.0-31.0) H Mean Corpuscular Hemoglobin Concent 33.9 G/DL (32.0-36.0) Red Cell Distribution Width 17.3 % (11.6-14.8) H Platelet Count 178 K/UL (150-450) Mean Platelet Volume 8.9 FL (6.5-10.1) Neutrophils (%) (Auto) % (45.0-75.0) Lymphocytes (%) (Auto) % (20.0-45.0) Monocytes (%) (Auto) % (1.0-10.0) Eosinophils (%) (Auto) % (0.0-3.0) Basophils (%) (Auto) % (0.0-2.0) Differential Total Cells Counted 100 Neutrophils % (Manual) 46 % (45-75) Lymphocytes % (Manual) 8 % (20-45) L Monocytes % (Manual) 5 % (1-10) Eosinophils % (Manual) 38 % (0-3) H Basophils % (Manual) 1 % (0-2) Band Neutrophils 2 % (0-8) Platelet Estimate Adequate Platelet Morphology Normal Hypochromasia 1+ Anisocytosis 1+ Plan Problems: (1) Pneumonia (2) Functional quadriplegia (3) Person under investigation for COVID-19 (4) Chronic respiratory failure (5) Dehydration (6) Hypernatremia (7) Hypothyroidism (8) Pyelonephritis (9) Protein calorie malnutrition Assessment & Plan: DAILY ESTIMATED NEEDS: Needs based on Wound, critical care 57.5kg abw 25-30 kcals/kg 0875-1893 total kcals 1.25-2 g protein/kg 72-115 g total protein 25-30 mL/kg 2493-4905 total fluid mLs NUTRITION DIAGNOSIS: * Increased kcal/prot needs R/T wound healing as evidenced by pt w/ h/o stage 4 sacral wound, eval is pending. * Swallowing difficulty R/T dysphagia, respiratory status as evidenced by pt is Trach and PEG dep. ENTERAL NUTRITION RECOMMENDATIONS: Glucerna 1.2 @ 55ml/hr x 24 hrs to provide 1320ml, 1584 kcal, 79g pro, 1063ml free H2O * As medically able, start Glucerna 1.2 @35ml/hr for 6 hrs, advance as tolerated q4-6 to goal. * Add TYRESE in 4oz water BID via PEG for wound healing * HOB over 30 degrees/ water flush per MD ADDITIONAL RECOMMENDATIONS: * Calibrated bedscale wt for accurate CBW * Wound healing: TYRESE BID, Vit C 250mg BID F/up w/ WC eval * Monitor lytes, replete as needed * Monitor BGs w/ TF-> bed side BG checks + NISS (10) Failure to thrive (child) (11) Sacral decubitus ulcer Assessment & Plan: Pt presented on admission with Tracheostomy, GT, and multiple Pressure injuries. No erythema or evidence of skin breakdown under tracheal collar. dry dark brown skin plaque noted at R lateral chest to R flank. Full thickness stage 4 Sacral Pressure Injury with undermined borders(L)2cm x (W)2cm x (D)2cm, undermining clockwise 11-3 by 2.3cm @3o'clock.Ability to accurately assess base of wound is not fully appreciated secondary to shape of wound. (+) Epibole along edges of wound. Silver Nitrate sticks application applied to Borders. Bone is palpable when probed.Small amt brown exudate noted. No odor noted. [place] Atrophic scar periwound. Resolving Pressure Injury R Ischium. [place] epithelial noted at base of wound. Intact serous Blister noted to monica/upper L thigh. No erythema or changes in skin temp at affected site. Reabsorbing DTPI L Hallux. Base of Pressure injury is dark brown,dry without erythema,induration or fluctuance. L Heel is boggy with non-blanchable erythema. R Heel is boggy but blanchable. Tx.Plan: Cleanse Sacral wound with Saline. Loosely pack with Therahoney impregnated Kerlix.Apply Moisture Barrier Paste periwound. Cover with Optifoam drsg every 3 days and prn. Apply Moisture Barrier Paste to R Ischium. Cover with Optifoam drsg. Change every 3 days and prn. Apply Phytoplex Skin Nourishing lotion to Lateral R chest /R Flank Daily. Apply Cavilon Skin Barrier to R and L Heel. Cover each heel with Optifoam drsg.Change every 7 days and prn. Reposition at least every 2hours or as tolerated. Off-load heels with pillow. 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
--- NOTE | 2020-09-25 19:10 | NUR ---
NURSE HAND-OFF REPORT: Important Events on Shift: stable Patient Status: Diet: Pending Orders: Pending Results/Labs: Pending MD notification: Latest Vital Signs: Temperature 98.4 , Pulse 75 , B/P 121 /58 , Respiratory Rate 21 , O2 SAT 100 , Mechanical Ventilator, O2 Flow Rate 50.0 . Vital Sign Comment: EKG Rhythm: Sinus Rhythm Rhythm change?: N MD Notified?: - MD Response: Latest [place] Fall Score: 50 Fall Risk: High Risk Safety Measures: Call light Within Reach, Bed Alarm Zone 3, Side Rails Side Rails x2, Bed position Low and Locked. Fall Precautions: Yellow Socks Yellow Gown Door Sign Report given to CRISTY Raya.
--- NOTE | 2020-09-25 19:25 | NUR ---
NURSE NOTES: Pt received from CRISTY Bowie alert and oriented x0, obtunded with no acute s/s of distress noted. Trach to vent Portex 7 AC 17 TV 400, 30% FiO2 PEEP 5, saturating at 99%. RT at bedside providing trach care. Gtube feed tolerating - Glucerna 1.2 at 50 with flush 100 q8h. Rectal tube noted - patent and draining to liquid brown stool. IV site asymptomatic and patent on R hand 22g and L hand 24g, saline lock. Bed in lowest position, bed alarm on. Fall risk precautions implemented - pt unable to verbalize or indicate understanding. Call light and belongings within reach.
[2020-09-25 20:00] VITALS: BP 116/58
--- NOTE | 2020-09-25 22:13 | General Progress Note ---
Subjective ROS Limited/Unobtainable: Yes Allergies: Coded Allergies: No Known Allergies (Unverified , 11/22/15) Objective Last 24 Hour Vital Signs Date Time Temp Pulse Resp B/P (MAP) Pulse Ox O2 Delivery O2 Flow Rate FiO2 09/25/20 20:00 Mechanical Ventilator Mechanical Ventilator 09/25/20 20:00 99.3 75 16 116/58 (77) 100 09/25/20 20:00 30 09/25/20 19:21 74 09/25/20 19:12 77 17 30 09/25/20 16:00 30 09/25/20 16:00 98.4 75 21 121/58 (79) 100 09/25/20 16:00 Mechanical Ventilator Mechanical Ventilator 09/25/20 15:38 76 09/25/20 15:23 79 23 30 09/25/20 12:00 30 09/25/20 12:00 Mechanical Ventilator Mechanical Ventilator 09/25/20 12:00 98.2 71 22 115/65 (82) 100 09/25/20 11:31 70 09/25/20 11:17 65 19 30 09/25/20 08:00 30 09/25/20 08:00 98.1 67 18 115/62 (79) 100 09/25/20 08:00 Mechanical Ventilator Mechanical Ventilator 09/25/20 07:51 68 09/25/20 07:18 72 20 30 09/25/20 04:00 30 09/25/20 04:00 Mechanical Ventilator Mechanical Ventilator 09/25/20 04:00 98.6 70 20 110/48 (68) 100 09/25/20 03:53 67 09/25/20 01:45 66 14 30 09/25/20 00:00 Mechanical Ventilator Mechanical Ventilator 09/25/20 00:00 98.9 98 18 117/62 (80) 100 09/25/20 00:00 30 09/24/20 23:50 72 Intake and Output 09/24/20 09/25/20 19:00 07:00 Intake Total 650 ml 650 ml Output Total 500 ml 820 ml Balance 150 ml -170 ml Free Water 100 ml 100 ml Tube Feeding 550 ml 550 ml Output Urine Total 500 ml 800 ml Stool Total 20 ml Laboratory Tests 09/25/20 11:15: White Blood Count 16.1H, Red Blood Count 3.34L, Hemoglobin 10.4L, Hematocrit 30.7L, Mean Corpuscular Volume 92, Mean Corpuscular Hemoglobin 31.2H, Mean Corpuscular Hemoglobin Concent 33.9, Red Cell Distribution Width 17.3H, Platelet Count 178, Mean Platelet Volume 8.9, Neutrophils (%) (Auto) , Lymphocytes (%) (Auto) , Monocytes (%) (Auto) , Eosinophils (%) (Auto) , Basophils (%) (Auto) , Differential Total Cells Counted 100, Neutrophils % (Manual) 46, Lymphocytes % (Manual) 8L, Monocytes % (Manual) 5, Eosinophils % (Manual) 38H, Basophils % (Manual) 1, Band Neutrophils 2, Platelet Estimate Adequate, Platelet Morphology Normal, Hypochromasia 1+, Anisocytosis 1+ Height (Feet): 5 Height (Inches): 3.00 Weight (Pounds): 145 Assessment/Plan Problem List: (1) Hypothyroidism ICD Codes: E03.9 - Hypothyroidism, unspecified SNOMED: 29930195 (2) Chronic respiratory failure ICD Codes: J96.10 - Chronic respiratory failure, unspecified whether with hypoxia or hypercapnia SNOMED: 27394195 (3) Functional quadriplegia ICD Codes: R53.2 - Functional quadriplegia SNOMED: 765111257498369 (4) Protein calorie malnutrition ICD Codes: E46 - Unspecified protein-calorie malnutrition SNOMED: 243407731 (5) Failure to thrive (child) ICD Codes: R62.51 - Failure to thrive (child) SNOMED: 991868926 (6) Sacral decubitus ulcer ICD Codes: L89.159 - Pressure ulcer of sacral region, unspecified stage SNOMED: 342433977 (7) Tracheostomy dependence ICD Codes: Z93.0 - Tracheostomy status SNOMED: 031264709 (8) Sepsis ICD Codes: A41.9 - Sepsis, unspecified organism SNOMED: 79534676 (9) Anemia ICD Codes: D64.9 - Anemia, unspecified SNOMED: 164802177 Qualifiers: Qualified Codes: D64.9 - Anemia, unspecified (10) UTI (urinary tract infection) ICD Codes: N39.0 - Urinary tract infection, site not specified SNOMED: 52111931 Qualifiers: Qualified Codes: N39.0 - Urinary tract infection, site not specified Status: progressing Assessment/Plan: trach and peg pna sepsis no change revewied chart and labs afebrile diarrhea rectal tube Sandeep Oneil MD Sep 25, 2020 22:13
[2020-09-26] VITALS: BP 114/45
[2020-09-26 04:00] VITALS: BP 125/67
[2020-09-26] MEDS: Meropenem 1 GM in NS 55 ML IVPB SCH ×3 (05:15→22:05)
--- NOTE | 2020-09-26 06:41 | Hematology/Onc Progress Note ---
Assessment/Plan Assessment/Plan LABORATORY DATA: 04/2020 white count 4.7, platelets 140 otherwise CBC is normal. BMP shows chloride 110, creatinine 0.4. Albumin 2.9, otherwise normal. INR 1.0, PTT 27. Urinalysis shows 2+ leukocyte esterase. 09/16 wbc 10, hgb 7.5, plt 126 Imaging 07/01/20 cxr Bilateral patchy airspace opacities. Differential includes multifocal pneumonia and pulmonary edema. 09/16/20 cxr b/l infiltrates noted Assessment and Recommendations # Anemia of iron deficiency, has been persistent for months, now improved, as ferritin better --> Anemia workup has been ordered--> improved --> No evidence of hemolysis is noted, peripheral smear has been reviewed. --> Hgb goal >7. Transfuse prn. --> Iron iv not needed any further --> Medications have been reviewed --> gb 9-->8.4->>>>7.5-->9.4-->9->10-->9.4->10.1 # Right breast calcifications --> does not have a breast mass on exam --> f/u as outpatient with mammo as needed --> do not do a us breast here # Thrombocytopenia - potential causes multifactorial, evaluate liver and viral etiologies to begin, also could be related to underlying medications, no wimproved --> Hep panel and HIV prior negative -> plt 183->203->199-->125->130 --> abx # Leukocytosis with Pna --> antibiotics per id --> wbc 16->10.8-->16 --> smear is noted # Sepsis --> antibiotics per Infectious Disease. --> ABX vanc/zosyn->meropenem # Dehydration. --> PT and Dietary evaluation. # Hypertension --> Blood pressure control. # Dvt ppx scds The timing of this note does not necessarily reflect the time of the patient was seen Greatly appreciate consultation! Subjective Allergies: Coded Allergies: No Known Allergies (Unverified , 11/22/15) All Systems: reviewed and negative except above Subjective 09/18 labs are noted, no bleeding, seen by pulm, cbc is pending 09/19 gtube is running, meds reviewed, labs noted 09/20 labs reviewed, meds noted, cbc is pending, vanc was added recently 09/21 labs reviewed, meds noetd, hgb 10, bactrim, yovani, vanc 09/22 is satting well on the vent, abx, labs still pending for am 09/23 remains on vent, not in acute distress, no bleeding, no night sweats 09/25 labs pending, on trach, vent gtube, meds reviewed, feeds ongoing 09/26 obtunded, labs pending, trach/vent, no bleeding, meds noted Objective Objective Current Medications Medications (Trade) Dose Ordered Sig/Alex Route PRN Reason Start Time Stop Time Status Last Admin Dose Admin Acetaminophen (Tylenol) 500 mg Q4H PRN ORAL Mild Pain (Pain Scale 1-3) 09/15/20 23:15 10/15/20 23:14 09/23/20 16:49 Acetaminophen (Tylenol) 500 mg Q4H PRN ORAL Temp >100.5 09/15/20 23:15 10/15/20 23:14 09/24/20 16:19 Ascorbic Acid (Vitamin C) 250 mg TWICE A DAY ORAL 09/19/20 18:00 10/19/20 17:59 09/25/20 17:14 Clonidine HCl (Catapres Tab) 0.1 mg Q2H PRN GT For High Blood Pressure 09/17/20 17:00 12/16/20 16:59 Hydralazine HCl (Apresoline) 10 mg Q2H PRN IV For High Blood Pressure 09/17/20 17:00 12/16/20 16:59 Meropenem 1 gm/ Sodium Chloride 55 ml @ 110 mls/hr Q8HR IVPB 09/24/20 14:00 09/29/20 13:59 09/26/20 05:15 Multivitamins (Multivitamins) 1 tab DAILY ORAL 09/20/20 09:00 10/20/20 08:59 09/25/20 08:47 Pantoprazole (Protonix) 40 mg EVERY 12 HOURS IVP 09/17/20 14:15 10/17/20 14:14 09/25/20 21:04 Zinc Sulfate (Zinc Sulfate) 220 mg DAILY ORAL 09/20/20 09:00 09/30/20 08:59 09/25/20 08:46 Last 24 Hour Vital Signs Date Time Temp Pulse Resp B/P (MAP) Pulse Ox O2 Delivery O2 Flow Rate FiO2 09/26/20 04:00 98.6 78 19 125/67 (86) 100 09/26/20 04:00 30 09/26/20 04:00 76 09/26/20 04:00 Mechanical Ventilator Mechanical Ventilator 09/26/20 00:00 75 09/26/20 00:00 98.6 70 17 114/45 (68) 100 09/26/20 00:00 Mechanical Ventilator Mechanical Ventilator 09/25/20 23:53 74 20 100 Mechanical Ventilator 30 09/25/20 23:10 74 20 30 09/25/20 20:00 Mechanical Ventilator Mechanical Ventilator 09/25/20 20:00 99.3 75 16 116/58 (77) 100 09/25/20 20:00 30 09/25/20 19:21 74 09/25/20 19:12 77 17 30 09/25/20 16:00 30 09/25/20 16:00 98.4 75 21 121/58 (79) 100 09/25/20 16:00 Mechanical Ventilator Mechanical Ventilator 09/25/20 15:38 76 09/25/20 15:23 79 23 30 09/25/20 12:00 30 09/25/20 12:00 Mechanical Ventilator Mechanical Ventilator 09/25/20 12:00 98.2 71 22 115/65 (82) 100 09/25/20 11:31 70 09/25/20 11:17 65 19 30 09/25/20 08:00 30 09/25/20 08:00 98.1 67 18 115/62 (79) 100 09/25/20 08:00 Mechanical Ventilator Mechanical Ventilator 09/25/20 07:51 68 09/25/20 07:18 72 20 30 09/25/20 04:00 30 09/25/20 04:00 Mechanical Ventilator Mechanical Ventilator 09/25/20 04:00 98.6 70 20 110/48 (68) 100 09/25/20 03:53 67 09/25/20 01:45 66 14 30 09/25/20 00:00 Mechanical Ventilator Mechanical Ventilator 09/25/20 00:00 98.9 98 18 117/62 (80) 100 09/25/20 00:00 30 09/24/20 23:50 72 09/24/20 20:00 Mechanical Ventilator Mechanical Ventilator 09/24/20 20:00 99.1 87 20 93/68 (76) 100 09/24/20 20:00 30 09/24/20 19:54 62 09/24/20 19:45 65 16 30 09/24/20 16:49 100.0 09/24/20 16:00 101.7 81 18 114/60 (78) 97 09/24/20 16:00 Mechanical Ventilator Mechanical Ventilator 09/24/20 16:00 83 09/24/20 16:00 30 09/24/20 13:25 72 15 30 09/24/20 12:00 74 09/24/20 12:00 Mechanical Ventilator Mechanical Ventilator 09/24/20 12:00 100.1 78 19 128/64 (85) 97 09/24/20 12:00 30 09/24/20 08:00 Mechanical Ventilator Mechanical Ventilator 09/24/20 08:00 72 09/24/20 08:00 99.0 63 24 125/76 (92) 97 09/24/20 08:00 30 09/24/20 07:17 81 21 30 Intake and Output 09/25/20 09/26/20 19:00 07:00 Intake Total 920 ml 1140 ml Output Total 400 ml Balance 920 ml 740 ml Free Water 320 ml 480 ml IV Total 110 ml Tube Feeding 600 ml 550 ml Output Urine Total 300 ml Stool Total 100 ml # Voids 2 # Bowel Movements 1 Labs Test 09/24/20 07:30 09/25/20 11:15 09/26/20 04:43 White Blood Count 10.8 K/UL (4.8-10.8) 16.1 K/UL (4.8-10.8) Red Blood Count 3.28 M/UL (4.20-5.40) 3.34 M/UL (4.20-5.40) Hemoglobin 10.1 G/DL (12.0-16.0) 10.4 G/DL (12.0-16.0) Hematocrit 30.1 % (37.0-47.0) 30.7 % (37.0-47.0) Mean Corpuscular Volume 92 FL (80-99) 92 FL (80-99) Mean Corpuscular Hemoglobin 30.8 PG (27.0-31.0) 31.2 PG (27.0-31.0) Mean Corpuscular Hemoglobin Concent 33.5 G/DL (32.0-36.0) 33.9 G/DL (32.0-36.0) Red Cell Distribution Width 16.7 % (11.6-14.8) 17.3 % (11.6-14.8) Platelet Count 160 K/UL (150-450) 178 K/UL (150-450) Mean Platelet Volume 8.4 FL (6.5-10.1) 8.9 FL (6.5-10.1) Neutrophils (%) (Auto) % (45.0-75.0) % (45.0-75.0) Lymphocytes (%) (Auto) % (20.0-45.0) % (20.0-45.0) Monocytes (%) (Auto) % (1.0-10.0) % (1.0-10.0) Eosinophils (%) (Auto) % (0.0-3.0) % (0.0-3.0) Basophils (%) (Auto) % (0.0-2.0) % (0.0-2.0) Differential Total Cells Counted 100 100 Neutrophils % (Manual) 50 % (45-75) 46 % (45-75) Lymphocytes % (Manual) 9 % (20-45) 8 % (20-45) Monocytes % (Manual) 4 % (1-10) 5 % (1-10) Eosinophils % (Manual) 36 % (0-3) 38 % (0-3) Basophils % (Manual) 0 % (0-2) 1 % (0-2) Band Neutrophils 1 % (0-8) 2 % (0-8) Platelet Estimate Adequate Adequate Platelet Morphology Normal Normal Hypochromasia 1+ 1+ Anisocytosis 1+ 1+ Sodium Level 135 MMOL/L (136-145) Potassium Level 5.1 MMOL/L (3.5-5.1) Chloride Level 104 MMOL/L (98-107) Carbon Dioxide Level 27 MMOL/L (21-32) Anion Gap 4 mmol/L (5-15) Blood Urea Nitrogen 20 mg/dL (7-18) Creatinine 0.7 MG/DL (0.55-1.30) Estimat Glomerular Filtration Rate > 60 mL/min (>60) Glucose Level 103 MG/DL (74-106) Uric Acid 3.9 MG/DL (2.6-7.2) Calcium Level 9.5 MG/DL (8.5-10.1) Phosphorus Level 2.6 MG/DL (2.5-4.9) Magnesium Level 1.8 MG/DL (1.8-2.4) Total Bilirubin 0.4 MG/DL (0.2-1.0) Aspartate Amino Transf (AST/SGOT) 19 U/L (15-37) Alanine Aminotransferase (ALT/SGPT) 16 U/L (12-78) Alkaline Phosphatase 237 U/L (46-116) Pro-B-Type Natriuretic Peptide 1212 pg/mL (0-125) Total Protein 7.6 G/DL (6.4-8.2) Albumin 2.5 G/DL (3.4-5.0) Globulin 5.1 g/dL Albumin/Globulin Ratio 0.5 (1.0-2.7) Thyroid Stimulating Hormone (TSH) 62.890 uiU/mL (0.358-3.740) Height (Feet): 5 Height (Inches): 3.00 Weight (Pounds): 145 Objective PHYSICAL EXAMINATION: GENERAL: obtunded, oriented x1, CARDIOVASCULAR: No murmur. LUNGS: Poor air exchange.+vent/trach ABDOMEN: Bowel sounds distant.++peg EXTREMITIES: No cyanosis, clubbing, or edema NEUROLOGIC: Neck, weakness as well leaning forward.bedbound++ Alan Cazares MD Sep 26, 2020 06:41
[2020-09-26 06:53] LABS: HEMATOCRIT 29.2 % (37.0-47.0); HEMOGLOBIN 9.8 G/DL (12.0-16.0); MEAN CORPUSCULAR VOLUME 94 FL (80-99); PLATELET COUNT 191 K/UL (150-450); RED BLOOD COUNT 3.12 M/UL (4.20-5.40); RED CELL DISTRIBUTION WIDTH 15.8 % (11.6-14.8); WHITE BLOOD COUNT 18.4 K/UL (4.8-10.8)
--- NOTE | 2020-09-26 07:10 | NUR ---
NURSE HAND-OFF REPORT: Important Events on Shift: Pt tolerated current trach settings, VS WNL. Pt was afebrile during shift. Patient Status: Ongoing Diet: Gtube Pending Orders: n/a Pending Results/Labs: n/a Pending MD notification: n/a Latest Vital Signs: Temperature 98.6 , Pulse 76 , B/P 125 /67 , Respiratory Rate 19 , O2 SAT 100 , Mechanical Ventilator, O2 Flow Rate 50.0 . Vital Sign Comment: WNL EKG Rhythm: Sinus Rhythm Rhythm change?: N MD Notified?: - MD Response: Latest [place] Fall Score: 50 Fall Risk: High Risk Safety Measures: Call light Within Reach, Bed Alarm Zone 3, Side Rails Side Rails x2, Bed position Low and Locked. Fall Precautions: Yes Yellow Socks Yellow Gown Door Sign Report given to CRISTY Miguel.
--- NOTE | 2020-09-26 07:30 | NUR ---
RECEIVED PT. HER EYES OPEN DOES NOT FOLLOW COMMAND ON VENT VITAL SIGN STABLE NO DISTRESS
--- NOTE | 2020-09-26 07:39 | NUR ---
RD ASSESSMENT & RECOMMENDATIONS SEE CARE ACTIVITY FOR COMPLETE ASSESSMENT DAILY ESTIMATED NEEDS: Needs based on Wound, critical care 57.5kg abw 25-30 kcals/kg 0343-9967 total kcals 1.25-2 g protein/kg 72-115 g total protein 25-30 mL/kg 6937-6459 total fluid mLs NUTRITION DIAGNOSIS: * Increased kcal/prot needs R/T wound healing as evidenced by pt w/ h/o stage 4 sacral wound, eval is pending. * Swallowing difficulty R/T dysphagia, respiratory status as evidenced by pt is Trach and PEG dep. CURRENT TF: Glucerna 1.2 goal of 50ml/hr ENTERAL NUTRITION RECOMMENDATIONS: Glucerna 1.2 @ 55ml/hr x 24 hrs to provide 1320ml, 1584 kcal, 79g pro, 1063ml free H2O * Increase goal by 5ml/hr to goal of 55ml/hr x24 hrs to better meet est needs. * Add TYRESE in 4oz water BID via PEG for wound healing * HOB over 30 degrees/ water flush per MD ADDITIONAL RECOMMENDATIONS: * Calibrated bedscale wt for accurate CBW * Wound healing: TYRESE BID via GT continue Vit C + ZnSO4 * Monitor lytes, replete as needed * Monitor BGs w/ TF-> bed side BG checks + NISS * Add probiotics: +diarrhea
[2020-09-26 08:00] VITALS: BP 120/56
[2020-09-26] MEDS: Zinc Sulfate 220mg ORAL SCH (09:06)
[2020-09-26] MEDS: Ascorbic Acid 500mg tab ORAL SCH ×2 (09:07→17:37)
[2020-09-26] MEDS: Pantoprazole Inj IVP SCH ×2 (09:07→20:30)
--- NOTE | 2020-09-26 11:02 | Consultation ---
Consult Note Consult Note I am consulted by Dr. Cantrell for management of fluid and electrolyte on this patient Day 11 of patient's hospitalization here at [facility] Patient seen and examined Data reviewed Current issues: New fever Eosinophilia & rash VRE sepsis ( Amp sensitive) Positive blood culture with Staph Hemolyticus likely contamination Serratia, Pseudomonas & Stenotrophomonas pneumonia, E coli UTI, Ventilator-dependent respiratory failure, Quadriplegia, Stage IV sacral ulcer, COPD, Iron deficiency anemia, Hypertension, history of atrial fibrillation. Negative COVI19 tests Most recent labs from September 24 reviewed PHYSICAL EXAMINATION: GENERAL: A debilitated elderly woman seen in her room, on the ventilator. HEENT: Normocephalic and atraumatic. There is temporal wasting. NECK: Showed a tracheostomy catheter. CHEST: Exam reveals scattered rhonchi. CARDIOVASCULAR: Exam reveals a regular rate. ABDOMEN: Soft and flat with a gastrostomy catheter, which was small caliber, perhaps 16-Frisian. There was a small amount of darker drainage around it, but this was minimal, and there was no further drainage noted. The gastrostomy tube appeared to be in good position. EXTREMITIES: Contractures. . Assessment/Plan Imp: Unfortunate 75-year old female with chronic trach to vent is being treated for sepsis Has hyponatremia Marked elevated TSH indicative of severe hypothyroidism leading to hyponatremia Anemia Suggestions IV Synthroid given Continue per consultants Monitor renal parameters and electrolytes Dante Chau MD Sep 26, 2020 11:02
--- NOTE | 2020-09-26 11:35 | Infectious Diseases Prog Note ---
Assessment/Plan Assessment/Plan IMPRESSION: New fever Eosinophilia & rash VRE sepsis ( Amp sensitive) Positive blood culture with Staph Hemolyticus likely contamination Serratia, Pseudomonas & Stenotrophomonas pneumonia, E coli UTI, Ventilator-dependent respiratory failure, Quadriplegia, Stage IV sacral ulcer, COPD, Iron deficiency anemia, Hypertension, history of atrial fibrillation. Negative COVI19 tests RECOMMENDATION: Continue Meropenem , give a dose of Ivermectin Subjective ROS Limited/Unobtainable: Yes Constitutional: Denies: fever Allergies: Coded Allergies: No Known Allergies (Unverified , 11/22/15) Objective Last 24 Hour Vital Signs Date Time Temp Pulse Resp B/P (MAP) Pulse Ox O2 Delivery O2 Flow Rate FiO2 09/26/20 08:26 30 09/26/20 08:00 69 09/26/20 08:00 Mechanical Ventilator Mechanical Ventilator 09/26/20 08:00 98.2 70 19 120/56 (77) 100 09/26/20 07:26 75 20 30 09/26/20 04:00 98.6 78 19 125/67 (86) 100 09/26/20 04:00 30 09/26/20 04:00 76 09/26/20 04:00 Mechanical Ventilator Mechanical Ventilator 09/26/20 00:00 75 09/26/20 00:00 98.6 70 17 114/45 (68) 100 09/26/20 00:00 Mechanical Ventilator Mechanical Ventilator 09/25/20 23:53 74 20 100 Mechanical Ventilator 30 09/25/20 23:10 74 20 30 09/25/20 20:00 Mechanical Ventilator Mechanical Ventilator 09/25/20 20:00 99.3 75 16 116/58 (77) 100 09/25/20 20:00 30 09/25/20 19:21 74 09/25/20 19:12 77 17 30 09/25/20 16:00 30 09/25/20 16:00 98.4 75 21 121/58 (79) 100 09/25/20 16:00 Mechanical Ventilator Mechanical Ventilator 09/25/20 15:38 76 09/25/20 15:23 79 23 30 09/25/20 12:00 30 09/25/20 12:00 Mechanical Ventilator Mechanical Ventilator 09/25/20 12:00 98.2 71 22 115/65 (82) 100 Height (Feet): 5 Height (Inches): 3.00 Weight (Pounds): 145 HEENT: status post trach Respiratory/Chest: lungs clear, other - on ventilator Cardiovascular: normal rate Abdomen: soft, non tender, other - GT feeding Extremities: other - contracted Skin: rash Neurologic/Psychiatric: aphasia, other - opens eyes Laboratory Tests Test 09/26/20 04:43 White Blood Count 18.4 K/UL (4.8-10.8) H Red Blood Count 3.12 M/UL (4.20-5.40) L Hemoglobin 9.8 G/DL (12.0-16.0) L Hematocrit 29.2 % (37.0-47.0) L Mean Corpuscular Volume 94 FL (80-99) Mean Corpuscular Hemoglobin 31.4 PG (27.0-31.0) H Mean Corpuscular Hemoglobin Concent 33.4 G/DL (32.0-36.0) Red Cell Distribution Width 15.8 % (11.6-14.8) H Platelet Count 191 K/UL (150-450) Mean Platelet Volume 8.3 FL (6.5-10.1) Neutrophils (%) (Auto) % (45.0-75.0) Lymphocytes (%) (Auto) % (20.0-45.0) Monocytes (%) (Auto) % (1.0-10.0) Eosinophils (%) (Auto) % (0.0-3.0) Basophils (%) (Auto) % (0.0-2.0) Differential Total Cells Counted 100 Neutrophils % (Manual) 53 % (45-75) Lymphocytes % (Manual) 8 % (20-45) L Monocytes % (Manual) 7 % (1-10) Eosinophils % (Manual) 32 % (0-3) H Basophils % (Manual) 0 % (0-2) Band Neutrophils 0 % (0-8) Platelet Estimate Adequate Platelet Morphology Normal Anisocytosis 1+ Current Medications Medications (Trade) Dose Ordered Sig/Alex Route PRN Reason Start Time Stop Time Status Last Admin Dose Admin Acetaminophen (Tylenol) 500 mg Q4H PRN ORAL Mild Pain (Pain Scale 1-3) 09/15/20 23:15 10/15/20 23:14 09/23/20 16:49 Acetaminophen (Tylenol) 500 mg Q4H PRN ORAL Temp >100.5 12/17/20 23:15 10/15/20 23:14 09/24/20 16:19 Ascorbic Acid (Vitamin C) 250 mg TWICE A DAY ORAL 09/19/20 18:00 10/19/20 17:59 09/26/20 09:07 Hydralazine HCl (Apresoline) 10 mg Q2H PRN IV For High Blood Pressure 09/17/20 17:00 12/16/20 16:59 Levothyroxine Sodium (Synthroid) 50 mcg DAILY IV 09/26/20 13:00 10/26/20 12:59 Meropenem 1 gm/ Sodium Chloride 55 ml @ 110 mls/hr Q8HR IVPB 09/24/20 14:00 09/29/20 13:59 09/26/20 05:15 Multivitamins (Multivitamins) 1 tab DAILY ORAL 09/20/20 09:00 10/20/20 08:59 09/26/20 09:06 Pantoprazole (Protonix) 40 mg EVERY 12 HOURS IVP 09/17/20 14:15 10/17/20 14:14 09/26/20 09:07 Sodium Chloride 1,000 ml @ 50 mls/hr Q20H IV 09/26/20 11:15 10/26/20 11:14 Zinc Sulfate (Zinc Sulfate) 220 mg DAILY ORAL 09/20/20 09:00 09/30/20 08:59 09/26/20 09:06 Mahesh Nicole MD Sep 26, 2020 11:35
[2020-09-26 12:00] VITALS: BP 105/61
--- NOTE | 2020-09-26 12:02 | NUR ---
[employer]PER[employer] REFORMING UNIT SI: RESP FAILURE TRACH/VENT DEPENDENT, LEUKOCYTOSIS T. 98.2 HR 70 RR 19 B/P 120/56 AC 12 TV 400 FIO2 30% PEEP 5 WBC 18.5 BUN 20 BNP 1212 IS: IVF NS @ 50ML/HR MEROPENEM IV IVERMECTIN GT X 1 STEP DOWN STATUS
--- NOTE | 2020-09-26 13:15 | NUR ---
REPORT GIVEN TO ASHELY Holder RN
--- NOTE | 2020-09-26 13:27 | Cardiac Electrophysiology PN ---
Assessment/Plan Assessment/Plan 1. Hypertension, currently blood pressure stable. On p.r.n. Hydralazine and clonidine 2. VDRF status post tracheostomy on 30% FiO2, in sinus rhythm. COVID was negative. 3. Severe anemia, hemoglobin 7.5. S/P blood transfusion. Etiology is not clear at this time, but creatinine is within normal range. 4. Elevated BNP of more than 4000. Echo EF 65% 5. Dysphagia, status post PEG replacement 09/22/20. 6. VRE sepsis ( Amp sensitive), Gram positive bacteremia, Pseudomonas pneumonia, E coli UTI, on iv Abx per ID WBC still 18K 7. Sacral Decubitus DW RN Subjective Subjective Off covid isolation. GT replaced 09/22/20 On the Vent with 30% Fio2 off restraints.In SR on iv ABx Still febrile with high WBC Objective Last 24 Hour Vital Signs Date Time Temp Pulse Resp B/P (MAP) Pulse Ox O2 Delivery O2 Flow Rate FiO2 09/26/20 08:26 30 09/26/20 08:00 69 09/26/20 08:00 Mechanical Ventilator Mechanical Ventilator 09/26/20 08:00 98.2 70 19 120/56 (77) 100 09/26/20 07:26 75 20 30 09/26/20 04:00 98.6 78 19 125/67 (86) 100 09/26/20 04:00 30 09/26/20 04:00 76 09/26/20 04:00 Mechanical Ventilator Mechanical Ventilator 09/26/20 00:00 75 09/26/20 00:00 98.6 70 17 114/45 (68) 100 09/26/20 00:00 Mechanical Ventilator Mechanical Ventilator 09/25/20 23:53 74 20 100 Mechanical Ventilator 30 09/25/20 23:10 74 20 30 09/25/20 20:00 Mechanical Ventilator Mechanical Ventilator 09/25/20 20:00 99.3 75 16 116/58 (77) 100 09/25/20 20:00 30 09/25/20 19:21 74 09/25/20 19:12 77 17 30 09/25/20 16:00 30 09/25/20 16:00 98.4 75 21 121/58 (79) 100 09/25/20 16:00 Mechanical Ventilator Mechanical Ventilator 09/25/20 15:38 76 12/27/20 15:23 79 23 30 Intake and Output 09/25/20 09/26/20 19:00 07:00 Intake Total 920 ml 1140 ml Output Total 400 ml Balance 920 ml 740 ml Free Water 320 ml 480 ml IV Total 110 ml Tube Feeding 600 ml 550 ml Output Urine Total 300 ml Stool Total 100 ml # Voids 2 # Bowel Movements 1 Laboratory Tests Test 09/26/20 04:43 White Blood Count 18.4 K/UL (4.8-10.8) H Red Blood Count 3.12 M/UL (4.20-5.40) L Hemoglobin 9.8 G/DL (12.0-16.0) L Hematocrit 29.2 % (37.0-47.0) L Mean Corpuscular Volume 94 FL (80-99) Mean Corpuscular Hemoglobin 31.4 PG (27.0-31.0) H Mean Corpuscular Hemoglobin Concent 33.4 G/DL (32.0-36.0) Red Cell Distribution Width 15.8 % (11.6-14.8) H Platelet Count 191 K/UL (150-450) Mean Platelet Volume 8.3 FL (6.5-10.1) Neutrophils (%) (Auto) % (45.0-75.0) Lymphocytes (%) (Auto) % (20.0-45.0) Monocytes (%) (Auto) % (1.0-10.0) Eosinophils (%) (Auto) % (0.0-3.0) Basophils (%) (Auto) % (0.0-2.0) Differential Total Cells Counted 100 Neutrophils % (Manual) 53 % (45-75) Lymphocytes % (Manual) 8 % (20-45) L Monocytes % (Manual) 7 % (1-10) Eosinophils % (Manual) 32 % (0-3) H Basophils % (Manual) 0 % (0-2) Band Neutrophils 0 % (0-8) Platelet Estimate Adequate Platelet Morphology Normal Anisocytosis 1+ Objective HEAD AND NECK: No JVD.S/P Trach LUNGS: Coarse rhonchi. CARDIOVASCULAR: Regular S1 and S2 with no gallop. ABDOMEN: Status post PEG. EXTREMITIES: 1+ pitting edema. Flex Bess MD Sep 26, 2020 13:27
[2020-09-26 16:00] VITALS: BP 128/69
--- NOTE | 2020-09-26 16:24 | Pulmonology Progress Note ---
Subjective ROS Limited/Unobtainable: Yes Interval Events: None new Constitutional: Denies: fever HEENT: Repors: no symptoms Respiratory: Reports: no symptoms Cardiovascular: Reports: no symptoms Gastrointestinal/Abdominal: Reports: no symptoms Genitourinary: Reports: no symptoms Allergies: Coded Allergies: No Known Allergies (Unverified , 11/22/15) All Systems: reviewed and negative except above Objective Last 24 Hour Vital Signs Date Time Temp Pulse Resp B/P (MAP) Pulse Ox O2 Delivery O2 Flow Rate FiO2 09/26/20 16:00 30 09/26/20 16:00 Mechanical Ventilator Mechanical Ventilator 09/26/20 12:00 30 09/26/20 12:00 97.5 78 18 105/61 (76) 98 09/26/20 12:00 Mechanical Ventilator Mechanical Ventilator 09/26/20 12:00 72 09/26/20 11:01 72 19 30 09/26/20 08:26 30 09/26/20 08:00 69 09/26/20 08:00 Mechanical Ventilator Mechanical Ventilator 09/26/20 08:00 98.2 70 19 120/56 (77) 100 09/26/20 07:26 75 20 30 09/26/20 04:00 98.6 78 19 125/67 (86) 100 09/26/20 04:00 30 09/26/20 04:00 76 09/26/20 04:00 Mechanical Ventilator Mechanical Ventilator 09/26/20 00:00 75 09/26/20 00:00 98.6 70 17 114/45 (68) 100 09/26/20 00:00 Mechanical Ventilator Mechanical Ventilator 09/25/20 23:53 74 20 100 Mechanical Ventilator 30 09/25/20 23:10 74 20 30 09/25/20 20:00 Mechanical Ventilator Mechanical Ventilator 09/25/20 20:00 99.3 75 16 116/58 (77) 100 09/25/20 20:00 30 09/25/20 19:21 74 09/25/20 19:12 77 17 30 Intake and Output 09/25/20 09/26/20 19:00 07:00 Intake Total 920 ml 1190 ml Output Total 400 ml Balance 920 ml 790 ml Free Water 320 ml 480 ml IV Total 110 ml Tube Feeding 600 ml 600 ml Output Urine Total 300 ml Stool Total 100 ml # Voids 2 # Bowel Movements 1 General Appearance: no acute distress HEENT: normocephalic, atraumatic, status post trach Respiratory: chest wall non-tender, lungs clear, other - coarse rhonchi Cardiovascular: normal rate, regular rhythm Abdomen: normal bowel sounds, distended Laboratory Tests 09/26/20 04:43: White Blood Count 18.4H, Red Blood Count 3.12L, Hemoglobin 9.8L, Hematocrit 29.2L, Mean Corpuscular Volume 94, Mean Corpuscular Hemoglobin 31.4H, Mean Corpuscular Hemoglobin Concent 33.4, Red Cell Distribution Width 15.8H, Platelet Count 191, Mean Platelet Volume 8.3, Neutrophils (%) (Auto) , Lymphocytes (%) (Auto) , Monocytes (%) (Auto) , Eosinophils (%) (Auto) , Basophils (%) (Auto) , Differential Total Cells Counted 100, Neutrophils % (Manual) 53, Lymphocytes % (Manual) 8L, Monocytes % (Manual) 7, Eosinophils % (Manual) 32H, Basophils % (Manual) 0, Band Neutrophils 0, Platelet Estimate Adequate, Platelet Morphology Normal, Anisocytosis 1+ Current Medications Medications (Trade) Dose Ordered Sig/Alex Route PRN Reason Start Time Stop Time Status Last Admin Dose Admin Acetaminophen (Tylenol) 500 mg Q4H PRN ORAL Mild Pain (Pain Scale 1-3) 09/15/20 23:15 10/15/20 23:14 09/23/20 16:49 Acetaminophen (Tylenol) 500 mg Q4H PRN ORAL Temp >100.5 09/15/20 23:15 10/15/20 23:14 09/24/20 16:19 Ascorbic Acid (Vitamin C) 250 mg TWICE A DAY ORAL 09/19/20 18:00 10/19/20 17:59 09/26/20 09:07 Hydralazine HCl (Apresoline) 10 mg Q2H PRN IV For High Blood Pressure 09/17/20 17:00 12/16/20 16:59 Levothyroxine Sodium (Synthroid) 50 mcg DAILY IV 09/26/20 13:00 10/26/20 12:59 09/26/20 15:55 Meropenem 1 gm/ Sodium Chloride 55 ml @ 110 mls/hr Q8HR IVPB 09/24/20 14:00 09/29/20 13:59 09/26/20 15:57 Multivitamins (Multivitamins) 1 tab DAILY ORAL 09/20/20 09:00 10/20/20 08:59 09/26/20 09:06 Pantoprazole (Protonix) 40 mg EVERY 12 HOURS IVP 09/17/20 14:15 10/17/20 14:14 09/26/20 09:07 Sodium Chloride 1,000 ml @ 50 mls/hr Q20H IV 09/26/20 11:15 10/26/20 11:14 09/26/20 11:51 Zinc Sulfate (Zinc Sulfate) 220 mg DAILY ORAL 09/20/20 09:00 09/30/20 08:59 09/26/20 09:06 Assessment/Plan Assessment/Plan 1. Anemia, likely iron deficiency. - On IV iron. - s/p transfusion per Dr. Cazares. 2. Interstitial infiltrates, has pneumonia. - Sputum -> Serratia - Antibiotics per ID. - Continue supplemental oxygen; continue ventilator, AC mode.FiO2 30% 3. Sepsis. - Antibiotics per ID. Gm neg rods in sputum CS; confirmed Serratia 4. History of fever. - Currently afebrile. 5. Possible COVID-19 infection. - Swab COVID-19 test negative. - Repeat PCR COVID-19 also negative 6. CHF. - 2D echocardiogram ordered per Cardio. 7. UTI. - On antibiotics. Has ESBL E. Coli 8. Elevated D-dimer. 9. DVT prophylaxis. - Venous duplex ultrasound negative. - on SCD 10. Chronic Respiratory Failure; continue vent; AC mode The history of Jennifer Gao has been reviewed and management options for her have been examined and discussed by Mino Childs. I have personally examined and interviewed the patient. Mino Childs MD Sep 26, 2020 16:24
--- NOTE | 2020-09-26 17:15 | Surgery Progress Note ---
Surgery Progress Note Subjective Additional Comments saturated labs noted on nc otherwise unchanged ill appearing Objective Last 24 Hour Vital Signs Date Time Temp Pulse Resp B/P (MAP) Pulse Ox O2 Delivery O2 Flow Rate FiO2 09/26/20 16:00 30 09/26/20 16:00 Mechanical Ventilator Mechanical Ventilator 09/26/20 12:00 30 09/26/20 12:00 97.5 78 18 105/61 (76) 98 09/26/20 12:00 Mechanical Ventilator Mechanical Ventilator 09/26/20 12:00 72 09/26/20 11:01 72 19 30 09/26/20 08:26 30 09/26/20 08:00 69 09/26/20 08:00 Mechanical Ventilator Mechanical Ventilator 09/26/20 08:00 98.2 70 19 120/56 (77) 100 09/26/20 07:26 75 20 30 09/26/20 04:00 98.6 78 19 125/67 (86) 100 09/26/20 04:00 30 09/26/20 04:00 76 09/26/20 04:00 Mechanical Ventilator Mechanical Ventilator 09/26/20 00:00 75 09/26/20 00:00 98.6 70 17 114/45 (68) 100 09/26/20 00:00 Mechanical Ventilator Mechanical Ventilator 09/25/20 23:53 74 20 100 Mechanical Ventilator 30 09/25/20 23:10 74 20 30 09/25/20 20:00 Mechanical Ventilator Mechanical Ventilator 09/25/20 20:00 99.3 75 16 116/58 (77) 100 09/25/20 20:00 30 09/25/20 19:21 74 09/25/20 19:12 77 17 30 I&O Intake and Output 09/25/20 09/26/20 19:00 07:00 Intake Total 920 ml 1190 ml Output Total 400 ml Balance 920 ml 790 ml Free Water 320 ml 480 ml IV Total 110 ml Tube Feeding 600 ml 600 ml Output Urine Total 300 ml Stool Total 100 ml # Voids 2 # Bowel Movements 1 Dressing: saturated Cardiovascular: RSR Respiratory: decreased breath sounds Abdomen: soft, non-tender, present bowel sounds Extremities: no tenderness, no cyanosis Laboratory Tests Test 09/25/20 18:17 09/26/20 04:43 09/26/20 05:03 09/26/20 11:56 POC Whole Blood Glucose 93 MG/DL (74-106) 103 MG/DL (74-106) 101 MG/DL (74-106) White Blood Count 18.4 K/UL (4.8-10.8) H Red Blood Count 3.12 M/UL (4.20-5.40) L Hemoglobin 9.8 G/DL (12.0-16.0) L Hematocrit 29.2 % (37.0-47.0) L Mean Corpuscular Volume 94 FL (80-99) Mean Corpuscular Hemoglobin 31.4 PG (27.0-31.0) H Mean Corpuscular Hemoglobin Concent 33.4 G/DL (32.0-36.0) Red Cell Distribution Width 15.8 % (11.6-14.8) H Platelet Count 191 K/UL (150-450) Mean Platelet Volume 8.3 FL (6.5-10.1) Neutrophils (%) (Auto) % (45.0-75.0) Lymphocytes (%) (Auto) % (20.0-45.0) Monocytes (%) (Auto) % (1.0-10.0) Eosinophils (%) (Auto) % (0.0-3.0) Basophils (%) (Auto) % (0.0-2.0) Differential Total Cells Counted 100 Neutrophils % (Manual) 53 % (45-75) Lymphocytes % (Manual) 8 % (20-45) L Monocytes % (Manual) 7 % (1-10) Eosinophils % (Manual) 32 % (0-3) H Basophils % (Manual) 0 % (0-2) Band Neutrophils 0 % (0-8) Platelet Estimate Adequate Platelet Morphology Normal Anisocytosis 1+ Plan Problems: (1) Pneumonia (2) Functional quadriplegia (3) Person under investigation for COVID-19 (4) Chronic respiratory failure (5) Dehydration (6) Hypernatremia (7) Hypothyroidism (8) Pyelonephritis (9) Protein calorie malnutrition Assessment & Plan: DAILY ESTIMATED NEEDS: Needs based on Wound, critical care 57.5kg abw 25-30 kcals/kg 4853-6409 total kcals 1.25-2 g protein/kg 72-115 g total protein 25-30 mL/kg 3624-7234 total fluid mLs NUTRITION DIAGNOSIS: * Increased kcal/prot needs R/T wound healing as evidenced by pt w/ h/o stage 4 sacral wound, eval is pending. * Swallowing difficulty R/T dysphagia, respiratory status as evidenced by pt is Trach and PEG dep. ENTERAL NUTRITION RECOMMENDATIONS: Glucerna 1.2 @ 55ml/hr x 24 hrs to provide 1320ml, 1584 kcal, 79g pro, 1063ml free H2O * As medically able, start Glucerna 1.2 @35ml/hr for 6 hrs, advance as tolerated q4-6 to goal. * Add TYRESE in 4oz water BID via PEG for wound healing * HOB over 30 degrees/ water flush per MD ADDITIONAL RECOMMENDATIONS: * Calibrated bedscale wt for accurate CBW * Wound healing: TYRESE BID, Vit C 250mg BID F/up w/ WC eval * Monitor lytes, replete as needed * Monitor BGs w/ TF-> bed side BG checks + NISS (10) Failure to thrive (child) (11) Sacral decubitus ulcer Assessment & Plan: Pt presented on admission with Tracheostomy, GT, and m ultiple Pressure injuries. No erythema or evidence of skin breakdown under tracheal collar. dry dark brown skin plaque noted at R lateral chest to R flank. Full thickness stage 4 Sacral Pressure Injury with undermined borders(L)2cm x (W)2cm x (D)2cm, undermining clockwise 11-3 by 2.3cm @3o'clock.Ability to accurately assess base of wound is not fully appreciated secondary to shape of wound. (+) Epibole along edges of wound. Silver Nitrate sticks application applied to Borders. Bone is palpable when probed.Small amt brown exudate noted. No odor noted. [place] Atrophic scar periwound. Resolving Pressure Injury R Ischium. [place] epithelial noted at base of wound. Intact serous Blister noted to monica/upper L thigh. No erythema or changes in skin temp at affected site. Reabsorbing DTPI L Hallux. Base of Pressure injury is dark brown,dry without erythema,induration or fluctuance. L Heel is boggy with non-blanchable erythema. R Heel is boggy but blanchable. Tx.Plan: Cleanse Sacral wound with Saline. Loosely pack with Therahoney impregnated Kerlix.Apply Moisture Barrier Paste periwound. Cover with Optifoam drsg every 3 days and prn. Apply Moisture Barrier Paste to R Ischium. Cover with Optifoam drsg. Change every 3 days and prn. Apply Phytoplex Skin Nourishing lotion to Lateral R chest /R Flank Daily. Apply Cavilon Skin Barrier to R and L Heel. Cover each heel with Optifoam drsg.Change every 7 days and prn. Reposition at least every 2hours or as tolerated. Off-load heels with pillow. (12) Tracheostomy dependence (13) Sepsis (14) UTI (urinary tract infection) (15) Anemia (16) Dysphagia (17) Hypoalbuminemia (18) Iron deficiency (19) At high risk for aspiration (20) Parkinson disease (21) Dementia (22) Elevated CEA (23) Paroxysmal A-fib (24) Pancytopenia Holland Petty Sep 26, 2020 17:15
--- NOTE | 2020-09-26 19:10 | NUR ---
NURSE NOTES: Received report from Radames Barajas. Pt in bed obtunded, sleeping but arousable. On vent to trach , with current setting of Port[place] 7 Ac 12 TV400 Fio2 30% Peep 5, tolerating well with saturation of 98%. Sr on cafeteria monitor with heart rate of 73bpm. Vital signs checked, wnl, no fever noted. Gtube in place running glucerna 1.2 running at 50 cc/hr with remaining 300 ml on the container. Gtube is intact, patent, and flushed well. No residual noted. Iv access on L forearm # 22 intact, patent and flushed well and L hand # 24 running 0.9 % normal saline no infiltration noted. SCD in place. Purewick in place. Safety measure in place, bed in lowest positioned and locked, call light within reach. Will continue plan of care and monitor the pt.
[2020-09-26 20:00] VITALS: BP 122/68
--- NOTE | 2020-09-26 21:27 | General Progress Note ---
Subjective ROS Limited/Unobtainable: Yes Allergies: Coded Allergies: No Known Allergies (Unverified , 11/22/15) Objective Last 24 Hour Vital Signs Date Time Temp Pulse Resp B/P (MAP) Pulse Ox O2 Delivery O2 Flow Rate FiO2 09/26/20 20:00 98.2 74 20 122/68 (86) 100 09/26/20 20:00 30 09/26/20 20:00 Mechanical Ventilator Mechanical Ventilator 09/26/20 18:30 73 20 30 09/26/20 16:00 77 09/26/20 16:00 98.2 74 18 128/69 (88) 100 09/26/20 16:00 30 09/26/20 16:00 Mechanical Ventilator Mechanical Ventilator 09/26/20 14:55 71 21 30 09/26/20 12:00 30 09/26/20 12:00 97.5 78 18 105/61 (76) 98 09/26/20 12:00 Mechanical Ventilator Mechanical Ventilator 09/26/20 12:00 72 09/26/20 11:01 72 19 30 09/26/20 08:26 30 09/26/20 08:00 69 09/26/20 08:00 Mechanical Ventilator Mechanical Ventilator 09/26/20 08:00 98.2 70 19 120/56 (77) 100 09/26/20 07:26 75 20 30 09/26/20 04:00 98.6 78 19 125/67 (86) 100 09/26/20 04:00 30 09/26/20 04:00 76 09/26/20 04:00 Mechanical Ventilator Mechanical Ventilator 09/26/20 00:00 75 09/26/20 00:00 98.6 70 17 114/45 (68) 100 09/26/20 00:00 Mechanical Ventilator Mechanical Ventilator 09/25/20 23:53 74 20 100 Mechanical Ventilator 30 09/25/20 23:10 74 20 30 Intake and Output 09/25/20 09/26/20 19:00 07:00 Intake Total 920 ml 1190 ml Output Total 400 ml Balance 920 ml 790 ml Free Water 320 ml 480 ml IV Total 110 ml Tube Feeding 600 ml 600 ml Output Urine Total 300 ml Stool Total 100 ml # Voids 2 # Bowel Movements 1 Laboratory Tests 09/26/20 04:43: White Blood Count 18.4H, Red Blood Count 3.12L, Hemoglobin 9.8L, Hematocrit 29.2L, Mean Corpuscular Volume 94, Mean Corpuscular Hemoglobin 31.4H, Mean Corpuscular Hemoglobin Concent 33.4, Red Cell Distribution Width 15.8H, Platelet Count 191, Mean Platelet Volume 8.3, Neutrophils (%) (Auto) , Lymphocytes (%) (Auto) , Monocytes (%) (Auto) , Eosinophils (%) (Auto) , Basophils (%) (Auto) , Differential Total Cells Counted 100, Neutrophils % (Manual) 53, Lymphocytes % (Manual) 8L, Monocytes % (Manual) 7, Eosinophils % (Manual) 32H, Basophils % (Manual) 0, Band Neutrophils 0, Platelet Estimate Adequate, Platelet Morphology Normal, Anisocytosis 1+ 09/26/20 05:03: POC Whole Blood Glucose 103 09/26/20 11:56: POC Whole Blood Glucose 101 09/26/20 18:24: POC Whole Blood Glucose 107H Height (Feet): 5 Height (Inches): 3.00 Weight (Pounds): 145 Assessment/Plan Problem List: (1) Hypothyroidism ICD Codes: E03.9 - Hypothyroidism, unspecified SNOMED: 22989314 (2) Chronic respiratory failure ICD Codes: J96.10 - Chronic respiratory failure, unspecified whether with hypoxia or hypercapnia SNOMED: 20870720 (3) Functional quadriplegia ICD Codes: R53.2 - Functional quadriplegia SNOMED: 442867674523964 (4) Protein calorie malnutrition ICD Codes: E46 - Unspecified protein-calorie malnutrition SNOMED: 462901929 (5) Failure to thrive (child) ICD Codes: R62.51 - Failure to thrive (child) SNOMED: 217007106 (6) Sacral decubitus ulcer ICD Codes: L89.159 - Pressure ulcer of sacral region, unspecified stage SNOMED: 165420674 (7) Tracheostomy dependence ICD Codes: Z93.0 - Tracheostomy status SNOMED: 133125899 (8) Sepsis ICD Codes: A41.9 - Sepsis, unspecified organism SNOMED: 45907311 (9) Anemia ICD Codes: D64.9 - Anemia, unspecified SNOMED: 659420977 Qualifiers: Qualified Codes: D64.9 - Anemia, unspecified (10) UTI (urinary tract infection) ICD Codes: N39.0 - Urinary tract infection, site not specified SNOMED: 43875145 Qualifiers: Qualified Codes: N39.0 - Urinary tract infection, site not specified Status: progressing Assessment/Plan: trach and peg pna sepsis quadroplegia s/p diarrhea afebrile check lytes rectal tube Sandeep Oneil MD Sep 26, 2020 21:27
--- NOTE | 2020-09-26 21:48 | General Progress Note ---
Subjective Allergies: Coded Allergies: No Known Allergies (Unverified , 11/22/15) Subjective Above noted Tolerating TF Non verbal Objective Last 24 Hour Vital Signs Date Time Temp Pulse Resp B/P (MAP) Pulse Ox O2 Delivery O2 Flow Rate FiO2 09/26/20 20:00 98.2 74 20 122/68 (86) 100 09/26/20 20:00 30 09/26/20 20:00 Mechanical Ventilator Mechanical Ventilator 09/26/20 19:14 71 09/26/20 18:30 73 20 30 09/26/20 16:00 77 09/26/20 16:00 98.2 74 18 128/69 (88) 100 09/26/20 16:00 30 09/26/20 16:00 Mechanical Ventilator Mechanical Ventilator 09/26/20 14:55 71 21 30 09/26/20 12:00 30 09/26/20 12:00 97.5 78 18 105/61 (76) 98 09/26/20 12:00 Mechanical Ventilator Mechanical Ventilator 09/26/20 12:00 72 09/26/20 11:01 72 19 30 09/26/20 08:26 30 09/26/20 08:00 69 09/26/20 08:00 Mechanical Ventilator Mechanical Ventilator 09/26/20 08:00 98.2 70 19 120/56 (77) 100 09/26/20 07:26 75 20 30 09/26/20 04:00 98.6 78 19 125/67 (86) 100 09/26/20 04:00 30 09/26/20 04:00 76 09/26/20 04:00 Mechanical Ventilator Mechanical Ventilator 09/26/20 00:00 75 09/26/20 00:00 98.6 70 17 114/45 (68) 100 09/26/20 00:00 Mechanical Ventilator Mechanical Ventilator 09/25/20 23:53 74 20 100 Mechanical Ventilator 30 09/25/20 23:10 74 20 30 Intake and Output 09/25/20 09/26/20 19:00 07:00 Intake Total 920 ml 1190 ml Output Total 400 ml Balance 920 ml 790 ml Free Water 320 ml 480 ml IV Total 110 ml Tube Feeding 600 ml 600 ml Output Urine Total 300 ml Stool Total 100 ml # Voids 2 # Bowel Movements 1 Laboratory Tests 09/26/20 04:43: White Blood Count 18.4H, Red Blood Count 3.12L, Hemoglobin 9.8L, Hematocrit 29.2L, Mean Corpuscular Volume 94, Mean Corpuscular Hemoglobin 31.4H, Mean Corpuscular Hemoglobin Concent 33.4, Red Cell Distribution Width 15.8H, Platelet Count 191, Mean Platelet Volume 8.3, Neutrophils (%) (Auto) , Lymphocytes (%) (Auto) , Monocytes (%) (Auto) , Eosinophils (%) (Auto) , Basophils (%) (Auto) , Differential Total Cells Counted 100, Neutrophils % (Manual) 53, Lymphocytes % (Manual) 8L, Monocytes % (Manual) 7, Eosinophils % (Manual) 32H, Basophils % (Manual) 0, Band Neutrophils 0, Platelet Estimate Adequate, Platelet Morphology Normal, Anisocytosis 1+ 09/26/20 05:03: POC Whole Blood Glucose 103 09/26/20 11:56: POC Whole Blood Glucose 101 09/26/20 18:24: POC Whole Blood Glucose 107H Height (Feet): 5 Height (Inches): 3.00 Weight (Pounds): 145 Objective debilitated Elderly woman on vent NCAT neck (+) trach coarse BS RR abd soft , flat, (+) GT no edema, (++) contractures Assessment/Plan Status: progressing Assessment/Plan: Assessment - GT site drainage/discharge - resolved - mildly elevated alk phos - possibly vitamin D related - OBS - Resp failure, s/p Trach - s/p PEG for dysphagia, - Parkinsons - Schizophrenia - h/o decub ulcers - Severe anemia Recommendations - check vitamin D - GT care - Elevate HOB - monitor labs Tana Romano MD Sep 26, 2020 21:48
[2020-09-27] VITALS: BP 124/64
--- NOTE | 2020-09-27 00:28 | NUR ---
NURSE NOTES: Pt in bed, comfortably sleeping. In no apparent cardiac and respiratory distress noted. Blood sugar checked. Vital signs checked , wnl. Oral care provided. Turned and repositioned pt. Will continue plan of care and monitor pt.
--- NOTE | 2020-09-27 03:16 | NUR ---
NURSE NOTES: Pt in bed, in no apparent respiratory and cardiac distress noted. Bed bath given, linens changed ,wound care done. Purewick replaced. Turned and repositioned pt. Oral care provided. Will continue to monitor.
[2020-09-27 04:00] VITALS: BP 123/53
[2020-09-27] MEDS: Meropenem 1 GM in NS 55 ML IVPB SCH ×3 (05:01→21:18)
--- NOTE | 2020-09-27 06:17 | Hematology/Onc Progress Note ---
Assessment/Plan Assessment/Plan LABORATORY DATA: 04/2020 white count 4.7, platelets 140 otherwise CBC is normal. BMP shows chloride 110, creatinine 0.4. Albumin 2.9, otherwise normal. INR 1.0, PTT 27. Urinalysis shows 2+ leukocyte esterase. 09/16 wbc 10, hgb 7.5, plt 126 Imaging 07/01/20 cxr Bilateral patchy airspace opacities. Differential includes multifocal pneumonia and pulmonary edema. 09/16/20 cxr b/l infiltrates noted Assessment and Recommendations # Anemia of iron deficiency, has been persistent for months, now improved, as ferritin better --> Anemia workup has been ordered--> improved --> No evidence of hemolysis is noted, peripheral smear has been reviewed. --> Hgb goal >7. Transfuse prn. --> Iron iv not needed any further --> Medications have been reviewed --> gb 9-->8.4->>>>7.5-->9.4-->9->10-->9.4->10.1 # Right breast calcifications --> does not have a breast mass on exam --> f/u as outpatient with mammo as needed --> do not do a us breast here # Thrombocytopenia - potential causes multifactorial, evaluate liver and viral etiologies to begin, also could be related to underlying medications, no wimproved --> Hep panel and HIV prior negative -> plt 183->203->199-->125->130 --> abx # Leukocytosis with Pna --> antibiotics per id --> wbc 16->10.8-->16 --> smear is noted # Sepsis --> antibiotics per Infectious Disease. --> ABX vanc/zosyn->meropenem # Dehydration. --> PT and Dietary evaluation. # Hypertension --> Blood pressure control. # Dvt ppx scds The timing of this note does not necessarily reflect the time of the patient was seen Greatly appreciate consultation! Subjective HEENT: Denies: no symptoms, eye pain, blurred vision, tearing, double vision, ear pain, ear discharge, nose pain, nose congestion, throat pain, throat swelling, mouth pain, mouth swelling, other Cardiovascular: Denies: no symptoms, chest pain, edema, irregular heart rate, lightheadedness, palpitations, syncope, other Respiratory: Denies: no symptoms, cough, shortness of breath, SOB with excertion, SOB at rest, sputum, wheezing, other Hematologic/Lymphatic: Denies: no symptoms, anemia, easy bleeding, easy bruising, adenopathy, other Allergies: Coded Allergies: No Known Allergies (Unverified , 11/22/15) Subjective 09/18 labs are noted, no bleeding, seen by pulm, cbc is pending 09/19 gtube is running, meds reviewed, labs noted 09/20 labs reviewed, meds noted, cbc is pending, vanc was added recently 09/21 labs reviewed, meds noetd, hgb 10, bactrim, yovani, vanc 09/22 is satting well on the vent, abx, labs still pending for am 09/23 remains on vent, not in acute distress, no bleeding, no night sweats 09/25 labs pending, on trach, vent gtube, meds reviewed, feeds ongoing 09/26 obtunded, labs pending, trach/vent, no bleeding, meds noted 09/27 pending cbc, is s/p peg feeds, hany/trach Objective Objective Current Medications Medications (Trade) Dose Ordered Sig/Alex Route PRN Reason Start Time Stop Time Status Last Admin Dose Admin Acetaminophen (Tylenol) 500 mg Q4H PRN ORAL Mild Pain (Pain Scale 1-3) 09/15/20 23:15 10/15/20 23:14 09/23/20 16:49 Acetaminophen (Tylenol) 500 mg Q4H PRN ORAL Temp >100.5 09/15/20 23:15 10/15/20 23:14 09/24/20 16:19 Ascorbic Acid (Vitamin C) 250 mg TWICE A DAY ORAL 09/19/20 18:00 10/19/20 17:59 09/26/20 17:37 Hydralazine HCl (Apresoline) 10 mg Q2H PRN IV For High Blood Pressure 09/17/20 17:00 12/16/20 16:59 Levothyroxine Sodium (Synthroid) 50 mcg DAILY IV 09/26/20 13:00 10/26/20 12:59 09/26/20 15:55 Meropenem 1 gm/ Sodium Chloride 55 ml @ 110 mls/hr Q8HR IVPB 09/24/20 14:00 09/29/20 13:59 09/27/20 05:01 Multivitamins (Multivitamins) 1 tab DAILY ORAL 09/20/20 09:00 10/20/20 08:59 09/26/20 09:06 Pantoprazole (Protonix) 40 mg EVERY 12 HOURS IVP 09/17/20 14:15 10/17/20 14:14 09/26/20 20:30 Sodium Chloride 1,000 ml @ 50 mls/hr Q20H IV 09/26/20 11:15 10/26/20 11:14 09/26/20 11:51 Zinc Sulfate (Zinc Sulfate) 220 mg DAILY ORAL 09/20/20 09:00 09/30/20 08:59 09/26/20 09:06 Last 24 Hour Vital Signs Date Time Temp Pulse Resp B/P (MAP) Pulse Ox O2 Delivery O2 Flow Rate FiO2 09/27/20 04:00 97.9 75 20 123/53 (76) 100 09/27/20 04:00 Mechanical Ventilator Mechanical Ventilator 09/27/20 04:00 30 09/27/20 03:24 74 09/27/20 02:45 77 19 30 09/27/20 00:38 64 18 30 09/27/20 00:00 Mechanical Ventilator Mechanical Ventilator 09/27/20 00:00 98.2 82 20 124/64 (84) 100 09/27/20 00:00 30 09/26/20 23:03 86 09/26/20 20:00 98.2 74 20 122/68 (86) 100 09/26/20 20:00 30 09/26/20 20:00 Mechanical Ventilator Mechanical Ventilator 09/26/20 19:14 71 09/26/20 18:30 73 20 30 09/26/20 16:00 77 09/26/20 16:00 98.2 74 18 128/69 (88) 100 09/26/20 16:00 30 09/26/20 16:00 Mechanical Ventilator Mechanical Ventilator 09/26/20 14:55 71 21 30 09/26/20 12:00 30 09/26/20 12:00 97.5 78 18 105/61 (76) 98 09/26/20 12:00 Mechanical Ventilator Mechanical Ventilator 09/26/20 12:00 72 09/26/20 11:01 72 19 30 09/26/20 08:26 30 09/26/20 08:00 69 09/26/20 08:00 Mechanical Ventilator Mechanical Ventilator 09/26/20 08:00 98.2 70 19 120/56 (77) 100 09/26/20 07:26 75 20 30 09/26/20 04:00 98.6 78 19 125/67 (86) 100 09/26/20 04:00 30 09/26/20 04:00 76 09/26/20 04:00 Mechanical Ventilator Mechanical Ventilator 09/26/20 00:00 75 09/26/20 00:00 98.6 70 17 114/45 (68) 100 09/26/20 00:00 Mechanical Ventilator Mechanical Ventilator 09/25/20 23:53 74 20 100 Mechanical Ventilator 30 09/25/20 23:10 74 20 30 09/25/20 20:00 Mechanical Ventilator Mechanical Ventilator 09/25/20 20:00 99.3 75 16 116/58 (77) 100 09/25/20 20:00 30 09/25/20 19:21 74 09/25/20 19:12 77 17 30 09/25/20 16:00 30 09/25/20 16:00 98.4 75 21 121/58 (79) 100 09/25/20 16:00 Mechanical Ventilator Mechanical Ventilator 09/25/20 15:38 76 09/25/20 15:23 79 23 30 09/25/20 12:00 30 09/25/20 12:00 Mechanical Ventilator Mechanical Ventilator 09/25/20 12:00 98.2 71 22 115/65 (82) 100 09/25/20 11:31 70 09/25/20 11:17 65 19 30 09/25/20 08:00 30 09/25/20 08:00 98.1 67 18 115/62 (79) 100 09/25/20 08:00 Mechanical Ventilator Mechanical Ventilator 09/25/20 07:51 68 09/25/20 07:18 72 20 30 Intake and Output 09/26/20 09/27/20 19:00 07:00 Intake Total 1050 ml 1305 ml Output Total 550 ml Balance 500 ml 1305 ml Free Water 100 ml 250 ml IV Total 400 ml 555 ml Tube Feeding 550 ml 500 ml Output Urine Total 550 ml # Voids 1 # Bowel Movements 1 Labs Test 09/24/20 07:30 09/25/20 00:39 09/25/20 05:26 09/25/20 11:15 White Blood Count 10.8 K/UL (4.8-10.8) 16.1 K/UL (4.8-10.8) Red Blood Count 3.28 M/UL (4.20-5.40) 3.34 M/UL (4.20-5.40) Hemoglobin 10.1 G/DL (12.0-16.0) 10.4 G/DL (12.0-16.0) Hematocrit 30.1 % (37.0-47.0) 30.7 % (37.0-47.0) Mean Corpuscular Volume 92 FL (80-99) 92 FL (80-99) Mean Corpuscular Hemoglobin 30.8 PG (27.0-31.0) 31.2 PG (27.0-31.0) Mean Corpuscular Hemoglobin Concent 33.5 G/DL (32.0-36.0) 33.9 G/DL (32.0-36.0) Red Cell Distribution Width 16.7 % (11.6-14.8) 17.3 % (11.6-14.8) Platelet Count 160 K/UL (150-450) 178 K/UL (150-450) Mean Platelet Volume 8.4 FL (6.5-10.1) 8.9 FL (6.5-10.1) Neutrophils (%) (Auto) % (45.0-75.0) % (45.0-75.0) Lymphocytes (%) (Auto) % (20.0-45.0) % (20.0-45.0) Monocytes (%) (Auto) % (1.0-10.0) % (1.0-10.0) Eosinophils (%) (Auto) % (0.0-3.0) % (0.0-3.0) Basophils (%) (Auto) % (0.0-2.0) % (0.0-2.0) Differential Total Cells Counted 100 100 Neutrophils % (Manual) 50 % (45-75) 46 % (45-75) Lymphocytes % (Manual) 9 % (20-45) 8 % (20-45) Monocytes % (Manual) 4 % (1-10) 5 % (1-10) Eosinophils % (Manual) 36 % (0-3) 38 % (0-3) Basophils % (Manual) 0 % (0-2) 1 % (0-2) Band Neutrophils 1 % (0-8) 2 % (0-8) Platelet Estimate Adequate Adequate Platelet Morphology Normal Normal Hypochromasia 1+ 1+ Anisocytosis 1+ 1+ Sodium Level 135 MMOL/L (136-145) Potassium Level 5.1 MMOL/L (3.5-5.1) Chloride Level 104 MMOL/L (98-107) Carbon Dioxide Level 27 MMOL/L (21-32) Anion Gap 4 mmol/L (5-15) Blood Urea Nitrogen 20 mg/dL (7-18) Creatinine 0.7 MG/DL (0.55-1.30) Estimat Glomerular Filtration Rate > 60 mL/min (>60) Glucose Level 103 MG/DL (74-106) Uric Acid 3.9 MG/DL (2.6-7.2) Calcium Level 9.5 MG/DL (8.5-10.1) Phosphorus Level 2.6 MG/DL (2.5-4.9) Magnesium Level 1.8 MG/DL (1.8-2.4) Total Bilirubin 0.4 MG/DL (0.2-1.0) Aspartate Amino Transf (AST/SGOT) 19 U/L (15-37) Alanine Aminotransferase (ALT/SGPT) 16 U/L (12-78) Alkaline Phosphatase 237 U/L (46-116) Pro-B-Type Natriuretic Peptide 1212 pg/mL (0-125) Total Protein 7.6 G/DL (6.4-8.2) Albumin 2.5 G/DL (3.4-5.0) Globulin 5.1 g/dL Albumin/Globulin Ratio 0.5 (1.0-2.7) Thyroid Stimulating Hormone (TSH) 62.890 uiU/mL (0.358-3.740) POC Whole Blood Glucose 112 MG/DL (74-106) 106 MG/DL (74-106) Test 09/25/20 11:53 09/25/20 18:17 09/26/20 04:43 09/26/20 05:03 POC Whole Blood Glucose 111 MG/DL (74-106) 93 MG/DL (74-106) 103 MG/DL (74-106) White Blood Count 18.4 K/UL (4.8-10.8) Red Blood Count 3.12 M/UL (4.20-5.40) Hemoglobin 9.8 G/DL (12.0-16.0) Hematocrit 29.2 % (37.0-47.0) Mean Corpuscular Volume 94 FL (80-99) Mean Corpuscular Hemoglobin 31.4 PG (27.0-31.0) Mean Corpuscular Hemoglobin Concent 33.4 G/DL (32.0-36.0) Red Cell Distribution Width 15.8 % (11.6-14.8) Platelet Count 191 K/UL (150-450) Mean Platelet Volume 8.3 FL (6.5-10.1) Neutrophils (%) (Auto) % (45.0-75.0) Lymphocytes (%) (Auto) % (20.0-45.0) Monocytes (%) (Auto) % (1.0-10.0) Eosinophils (%) (Auto) % (0.0-3.0) Basophils (%) (Auto) % (0.0-2.0) Differential Total Cells Counted 100 Neutrophils % (Manual) 53 % (45-75) Lymphocytes % (Manual) 8 % (20-45) Monocytes % (Manual) 7 % (1-10) Eosinophils % (Manual) 32 % (0-3) Basophils % (Manual) 0 % (0-2) Band Neutrophils 0 % (0-8) Platelet Estimate Adequate Platelet Morphology Normal Anisocytosis 1+ Test 09/26/20 11:56 09/26/20 18:24 09/27/20 00:19 09/27/20 04:30 POC Whole Blood Glucose 101 MG/DL (74-106) 107 MG/DL (74-106) 99 MG/DL (74-106) Test 09/27/20 05:04 POC Whole Blood Glucose 101 MG/DL (74-106) Height (Feet): 5 Height (Inches): 3.00 Weight (Pounds): 145 Objective PHYSICAL EXAMINATION: GENERAL: obtunded, oriented x1, CARDIOVASCULAR: No murmur. LUNGS: Poor air exchange.+vent/trach ABDOMEN: Bowel sounds distant.++peg EXTREMITIES: No cyanosis, clubbing, or edema NEUROLOGIC: Neck, weakness as well leaning forward.bedbound++ Alan Cazares MD Sep 27, 2020 06:17
[2020-09-27 06:29] LABS: ALANINE AMINOTRANSFERASE 14 U/L (12-78); ALBUMIN 2.6 G/DL (3.4-5.0); ALBUMIN/GLOBULIN RATIO 0.5 (1.0-2.7); ALKALINE PHOSPHATASE 334 U/L (46-116); ANION GAP 4 mmol/L (5-15); ASPARTATE AMINO TRANSFERASE 20 U/L (15-37); BILIRUBIN,TOTAL 0.4 MG/DL (0.2-1.0); BLOOD UREA NITROGEN 24 mg/dL (7-18); CALCIUM 9.9 MG/DL (8.5-10.1); CARBON DIOXIDE 29 MMOL/L (21-32); CHLORIDE 106 MMOL/L (98-107); CREATININE 0.5 MG/DL (0.55-1.30); PHOSPHORUS 2.4 MG/DL (2.5-4.9); POTASSIUM 4.9 MMOL/L (3.5-5.1); SODIUM 139 MMOL/L (136-145)
--- NOTE | 2020-09-27 07:15 | NUR ---
NURSE HAND-OFF REPORT: Important Events on Shift: Stable Patient Status: Stable Diet: Glucerna 1.2 Pending Orders: Pending Results/Labs: Pending MD notification: Latest Vital Signs: Temperature 98.1 , Pulse 69 , B/P 110 /70 , Respiratory Rate 21 , O2 SAT 100 , Mechanical Ventilator, O2 Flow Rate 50.0 . Vital Sign Comment: Stable EKG Rhythm: Sinus Rhythm Rhythm change?: N MD Notified?: - MD Response: Latest [place] Fall Score: 50 Fall Risk: High Risk Safety Measures: Call light Within Reach, Bed Alarm Zone 3, Side Rails Side Rails x2, Bed position Low and Locked. Fall Precautions: Yellow Socks Yellow Gown Door Sign Report given to CRISTY Dorantes .
--- NOTE | 2020-09-27 07:20 | NUR ---
NURSE NOTES: Received report from Junaid MUNIZ.
[2020-09-27 08:00] VITALS: BP 110/70
--- NOTE | 2020-09-27 08:20 | NUR ---
NURSE NOTES: Pt. in bed, opens eyes, non-verbal. No sign of distress. Mech. vent dependent with setting AC12/VT400/Fi O2 of 30%/P5. No grimacing noted. HOB elevated at all times. On GTF Glucerna 1.2 at 50cc/hr. No n/v noted. Feeding tolerating well. IV site at left hand #24g. and left FA #22g. in placed patent/intact running NS at 50cc/hr. Bed in low position, locked. Call light within reach. Will cont. to monitor.
[2020-09-27] MEDS: Pantoprazole Inj IVP SCH ×2 (09:05→20:25)
--- NOTE | 2020-09-27 09:05 | Infectious Diseases Prog Note ---
Assessment/Plan Assessment/Plan IMPRESSION: Fever resolved Eosinophilia & rash VRE sepsis ( Amp sensitive) Positive blood culture with Staph Hemolyticus likely contamination Serratia, Pseudomonas & Stenotrophomonas pneumonia, E coli UTI, Ventilator-dependent respiratory failure, Quadriplegia, Stage IV sacral ulcer, COPD, Iron deficiency anemia, Hypertension, history of atrial fibrillation. Negative COVI19 tests ? scabies, received Ivermectin RECOMMENDATION: Continue Meropenem , F/U CBC Subjective ROS Limited/Unobtainable: Yes Allergies: Coded Allergies: No Known Allergies (Unverified , 11/22/15) Objective Last 24 Hour Vital Signs Date Time Temp Pulse Resp B/P (MAP) Pulse Ox O2 Delivery O2 Flow Rate FiO2 09/27/20 08:00 98.1 69 21 110/70 (83) 100 09/27/20 08:00 30 09/27/20 06:45 73 18 30 09/27/20 04:00 97.9 75 20 123/53 (76) 100 09/27/20 04:00 Mechanical Ventilator Mechanical Ventilator 09/27/20 04:00 30 09/27/20 03:24 74 09/27/20 02:45 77 19 30 09/27/20 00:38 64 18 30 09/27/20 00:00 Mechanical Ventilator Mechanical Ventilator 09/27/20 00:00 98.2 82 20 124/64 (84) 100 09/27/20 00:00 30 09/26/20 23:03 86 09/26/20 20:00 98.2 74 20 122/68 (86) 100 09/26/20 20:00 30 09/26/20 20:00 Mechanical Ventilator Mechanical Ventilator 09/26/20 19:14 71 09/26/20 18:30 73 20 30 09/26/20 16:00 77 09/26/20 16:00 98.2 74 18 128/69 (88) 100 09/26/20 16:00 30 09/26/20 16:00 Mechanical Ventilator Mechanical Ventilator 09/26/20 14:55 71 21 30 09/26/20 12:00 30 09/26/20 12:00 97.5 78 18 105/61 (76) 98 09/26/20 12:00 Mechanical Ventilator Mechanical Ventilator 09/26/20 12:00 72 09/26/20 11:01 72 19 30 Height (Feet): 5 Height (Inches): 3.00 Weight (Pounds): 145 HEENT: status post trach Respiratory/Chest: lungs clear, other - on ventilator Cardiovascular: normal rate Abdomen: soft, non tender, other - GT feeding Extremities: other - contracted Skin: rash Neurologic/Psychiatric: aphasia Laboratory Tests Test 09/26/20 11:56 09/26/20 18:24 09/27/20 00:19 09/27/20 04:30 POC Whole Blood Glucose 101 MG/DL (74-106) 107 MG/DL (74-106) H 99 MG/DL (74-106) Sodium Level 139 MMOL/L (136-145) Potassium Level 4.9 MMOL/L (3.5-5.1) Chloride Level 106 MMOL/L (98-107) Carbon Dioxide Level 29 MMOL/L (21-32) Anion Gap 4 mmol/L (5-15) L Blood Urea Nitrogen 24 mg/dL (7-18) H Creatinine 0.5 MG/DL (0.55-1.30) L Estimat Glomerular Filtration Rate > 60 mL/min (>60) Glucose Level 110 MG/DL (74-106) H Uric Acid 3.7 MG/DL (2.6-7.2) Calcium Level 9.9 MG/DL (8.5-10.1) Phosphorus Level 2.4 MG/DL (2.5-4.9) L Magnesium Level 2.0 MG/DL (1.8-2.4) Total Bilirubin 0.4 MG/DL (0.2-1.0) Aspartate Amino Transf (AST/SGOT) 20 U/L (15-37) Alanine Aminotransferase (ALT/SGPT) 14 U/L (12-78) Alkaline Phosphatase 334 U/L (46-116) H Total Protein 8.0 G/DL (6.4-8.2) Albumin 2.6 G/DL (3.4-5.0) L Globulin 5.4 g/dL Albumin/Globulin Ratio 0.5 (1.0-2.7) L Vitamin D 25-Hydroxy Pending 25-Hydroxy Vitamin D2 Pending 25-Hydroxy Vitamin D3 Pending Thyroid Stimulating Hormone (TSH) 76.071 uiU/mL (0.358-3.740) Free Thyroxine Pending Free Triiodothyronine 1.2 pg/mL (2.3-4.2) L Test 09/27/20 05:04 POC Whole Blood Glucose 101 MG/DL (74-106) Current Medications Medications (Trade) Dose Ordered Sig/Alex Route PRN Reason Start Time Stop Time Status Last Admin Dose Admin Acetaminophen (Tylenol) 500 mg Q4H PRN ORAL Mild Pain (Pain Scale 1-3) 09/15/20 23:15 10/15/20 23:14 09/23/20 16:49 Acetaminophen (Tylenol) 500 mg Q4H PRN ORAL Temp >100.5 09/15/20 23:15 10/15/20 23:14 09/24/20 16:19 Ascorbic Acid (Vitamin C) 250 mg TWICE A DAY ORAL 09/19/20 18:00 10/19/20 17:59 09/26/20 17:37 Hydralazine HCl (Apresoline) 10 mg Q2H PRN IV For High Blood Pressure 09/17/20 17:00 12/16/20 16:59 Levothyroxine Sodium (Synthroid) 50 mcg DAILY IV 09/26/20 13:00 10/26/20 12:59 09/26/20 15:55 Meropenem 1 gm/ Sodium Chloride 55 ml @ 110 mls/hr Q8HR IVPB 09/24/20 14:00 09/29/20 13:59 09/27/20 05:01 Multivitamins (Multivitamins) 1 tab DAILY ORAL 09/20/20 09:00 10/20/20 08:59 09/26/20 09:06 Pantoprazole (Protonix) 40 mg EVERY 12 HOURS IVP 09/17/20 14:15 10/17/20 14:14 09/26/20 20:30 Sodium Chloride 1,000 ml @ 50 mls/hr Q20H IV 09/26/20 11:15 10/26/20 11:14 09/27/20 07:59 Zinc Sulfate (Zinc Sulfate) 220 mg DAILY ORAL 09/20/20 09:00 09/30/20 08:59 09/26/20 09:06 Mahesh Nicole MD Sep 27, 2020 09:05
[2020-09-27] MEDS: Zinc Sulfate 220mg ORAL SCH (09:06)
[2020-09-27] MEDS: Ascorbic Acid 500mg tab ORAL SCH ×2 (09:06→18:27)
--- NOTE | 2020-09-27 11:01 | Nephrology Progress Note ---
Assessment/Plan Problem List: (1) Electrolyte imbalance (2) Hypothyroidism (3) Functional quadriplegia (4) Sacral decubitus ulcer (5) Hypoalbuminemia (6) Anemia Assessment Unfortunate 75-year old female with chronic trach to vent is being treated for sepsis Has hyponatremia Marked elevated TSH indicative of severe hypothyroidism leading to hyponatremia Anemia Plan September 27: Labs reviewed. Renal parameters stable. On intravenous Synthroid for severe hypothyroidism. Continue to monitor electrolytes and renal parameters Previously: IV Synthroid given Continue per consultants Monitor renal parameters and electrolytes Subjective ROS Limited/Unobtainable: Yes Objective Objective Last 24 Hour Vital Signs Date Time Temp Pulse Resp B/P (MAP) Pulse Ox O2 Delivery O2 Flow Rate FiO2 09/27/20 09:00 Mechanical Ventilator Mechanical Ventilator 09/27/20 08:00 98.1 69 21 110/70 (83) 100 09/27/20 08:00 30 09/27/20 07:59 66 09/27/20 06:45 73 18 30 09/27/20 04:00 97.9 75 20 123/53 (76) 100 09/27/20 04:00 Mechanical Ventilator Mechanical Ventilator 09/27/20 04:00 30 09/27/20 03:24 74 09/27/20 02:45 77 19 30 09/27/20 00:38 64 18 30 09/27/20 00:00 Mechanical Ventilator Mechanical Ventilator 09/27/20 00:00 98.2 82 20 124/64 (84) 100 09/27/20 00:00 30 09/26/20 23:03 86 09/26/20 20:00 98.2 74 20 122/68 (86) 100 09/26/20 20:00 30 09/26/20 20:00 Mechanical Ventilator Mechanical Ventilator 09/26/20 19:14 71 09/26/20 18:30 73 20 30 09/26/20 16:00 77 09/26/20 16:00 98.2 74 18 128/69 (88) 100 09/26/20 16:00 30 09/26/20 16:00 Mechanical Ventilator Mechanical Ventilator 09/26/20 14:55 71 21 30 09/26/20 12:00 30 09/26/20 12:00 97.5 78 18 105/61 (76) 98 09/26/20 12:00 Mechanical Ventilator Mechanical Ventilator 09/26/20 12:00 72 09/26/20 11:01 72 19 30 Intake and Output 09/26/20 09/27/20 19:00 07:00 Intake Total 1050 ml 1410 ml Output Total 550 ml Balance 500 ml 1410 ml Free Water 100 ml 250 ml IV Total 400 ml 660 ml Tube Feeding 550 ml 500 ml Output Urine Total 550 ml # Voids 1 # Bowel Movements 1 Current Medications Medications (Trade) Dose Ordered Sig/Alex Route PRN Reason Start Time Stop Time Status Last Admin Dose Admin Acetaminophen (Tylenol) 500 mg Q4H PRN ORAL Mild Pain (Pain Scale 1-3) 09/15/20 23:15 10/15/20 23:14 09/23/20 16:49 Acetaminophen (Tylenol) 500 mg Q4H PRN ORAL Temp >100.5 09/15/20 23:15 10/15/20 23:14 09/24/20 16:19 Ascorbic Acid (Vitamin C) 250 mg TWICE A DAY ORAL 09/19/20 18:00 10/19/20 17:59 09/27/20 09:06 Hydralazine HCl (Apresoline) 10 mg Q2H PRN IV For High Blood Pressure 09/17/20 17:00 12/16/20 16:59 Levothyroxine Sodium (Synthroid) 50 mcg DAILY IV 09/26/20 13:00 10/26/20 12:59 09/27/20 09:05 Meropenem 1 gm/ Sodium Chloride 55 ml @ 110 mls/hr Q8HR IVPB 09/24/20 14:00 09/29/20 13:59 09/27/20 05:01 Multivitamins (Multivitamins) 1 tab DAILY ORAL 09/20/20 09:00 10/20/20 08:59 09/27/20 09:06 Pantoprazole (Protonix) 40 mg EVERY 12 HOURS IVP 09/17/20 14:15 10/17/20 14:14 09/27/20 09:05 Sodium Chloride 1,000 ml @ 50 mls/hr Q20H IV 09/26/20 11:15 10/26/20 11:14 09/27/20 07:59 Zinc Sulfate (Zinc Sulfate) 220 mg DAILY ORAL 09/20/20 09:00 09/30/20 08:59 09/27/20 09:06 Laboratory Tests 09/26/20 11:56: POC Whole Blood Glucose 101 09/26/20 18:24: POC Whole Blood Glucose 107H 09/27/20 00:19: POC Whole Blood Glucose 99 09/27/20 04:30: Sodium Level 139, Potassium Level 4.9, Chloride Level 106, Carbon Dioxide Level 29, Anion Gap 4L, Blood Urea Nitrogen 24H, Creatinine 0.5L, Estimat Glomerular Filtration Rate > 60, Glucose Level 110H, Uric Acid 3.7, Calcium Level 9.9, Phosphorus Level 2.4L, Magnesium Level 2.0, Total Bilirubin 0.4, Aspartate Amino Transf (AST/SGOT) 20, Alanine Aminotransferase (ALT/SGPT) 14, Alkaline Phosphatase 334H, Total Protein 8.0, Albumin 2.6L, Globulin 5.4, Albumin/Globulin Ratio 0.5L, Vitamin D 25-Hydroxy [Pending], 25-Hydroxy Vitamin D2 [Pending], 25-Hydroxy Vitamin D3 [Pending], Thyroid Stimulating Hormone (TSH) 76.071H, Free Thyroxine [Pending], Free Triiodothyronine 1.2L 09/27/20 05:04: POC Whole Blood Glucose 101 Height (Feet): 5 Height (Inches): 3.00 Weight (Pounds): 145 General Appearance: no apparent distress EENT: other - Trach and vent Cardiovascular: normal rate Respiratory/Chest: decreased breath sounds Abdomen: distended Dante Chau MD Sep 27, 2020 11:01
--- NOTE | 2020-09-27 11:05 | NUR ---
NURSE NOTES: Seen by Dr. Bess with [facility].
--- NOTE | 2020-09-27 11:47 | NUR ---
Make Up ManDrivability Technician SI: Resp Failure, Trach/Vent dependent, Leukocytosis, hypothyroidism T-98.1, HR 69, RR-21, BP 110/70 AC 12 TV 400 FiO2 30% PEEP 5.0 WBC 18.4 BUN 24, TSH 76.071, T3 1.2L IS: IVF NS @ 50ml/hr Meropenem IV q 8 h Synthroid IV QD Step Down Status
[2020-09-27 12:00] VITALS: BP 100/69
--- NOTE | 2020-09-27 12:17 | Cardiac Electrophysiology PN ---
Assessment/Plan Assessment/Plan 1. Hypertension, currently blood pressure stable. On p.r.n. Hydralazine and clonidine 2. VDRF status post tracheostomy on 30% FiO2, in sinus rhythm. COVID was negative. 3. Severe anemia, hemoglobin 7.5. S/P blood transfusion. Etiology is not clear at this time, but creatinine is within normal range. 4. Elevated BNP of more than 4000. Echo EF 65% 5. Dysphagia, status post PEG replacement 09/22/20. 6. VRE sepsis ( Amp sensitive), Gram positive bacteremia, Pseudomonas pneumonia, E coli UTI, on iv Abx per ID WBC still 18K 7. Sacral Decubitus DW RN Subjective Subjective Off covid isolation. GT replaced 09/22/20 On the Vent with 30% Fio2 off restraints.In SR on iv ABx Still febrile with high WBC Objective Last 24 Hour Vital Signs Date Time Temp Pulse Resp B/P (MAP) Pulse Ox O2 Delivery O2 Flow Rate FiO2 09/27/20 10:50 77 23 30 09/27/20 09:00 Mechanical Ventilator Mechanical Ventilator 09/27/20 08:00 98.1 69 21 110/70 (83) 100 09/27/20 08:00 30 09/27/20 07:59 66 09/27/20 06:45 73 18 30 09/27/20 04:00 97.9 75 20 123/53 (76) 100 09/27/20 04:00 Mechanical Ventilator Mechanical Ventilator 09/27/20 04:00 30 09/27/20 03:24 74 09/27/20 02:45 77 19 30 09/27/20 00:38 64 18 30 09/27/20 00:00 Mechanical Ventilator Mechanical Ventilator 09/27/20 00:00 98.2 82 20 124/64 (84) 100 09/27/20 00:00 30 09/26/20 23:03 86 09/26/20 20:00 98.2 74 20 122/68 (86) 100 09/26/20 20:00 30 09/26/20 20:00 Mechanical Ventilator Mechanical Ventilator 09/26/20 19:14 71 09/26/20 18:30 73 20 30 09/26/20 16:00 77 09/26/20 16:00 98.2 74 18 128/69 (88) 100 09/26/20 16:00 30 09/26/20 16:00 Mechanical Ventilator Mechanical Ventilator 09/26/20 14:55 71 21 30 Intake and Output 09/26/20 09/27/20 19:00 07:00 Intake Total 1050 ml 1410 ml Output Total 550 ml Balance 500 ml 1410 ml Free Water 100 ml 250 ml IV Total 400 ml 660 ml Tube Feeding 550 ml 500 ml Output Urine Total 550 ml # Voids 1 # Bowel Movements 1 Laboratory Tests Test 09/26/20 18:24 09/27/20 00:19 09/27/20 04:30 09/27/20 05:04 POC Whole Blood Glucose 107 MG/DL (74-106) H 99 MG/DL (74-106) 101 MG/DL (74-106) Sodium Level 139 MMOL/L (136-145) Potassium Level 4.9 MMOL/L (3.5-5.1) Chloride Level 106 MMOL/L (98-107) Carbon Dioxide Level 29 MMOL/L (21-32) Anion Gap 4 mmol/L (5-15) L Blood Urea Nitrogen 24 mg/dL (7-18) H Creatinine 0.5 MG/DL (0.55-1.30) L Estimat Glomerular Filtration Rate > 60 mL/min (>60) Glucose Level 110 MG/DL (74-106) H Uric Acid 3.7 MG/DL (2.6-7.2) Calcium Level 9.9 MG/DL (8.5-10.1) Phosphorus Level 2.4 MG/DL (2.5-4.9) L Magnesium Level 2.0 MG/DL (1.8-2.4) Total Bilirubin 0.4 MG/DL (0.2-1.0) Aspartate Amino Transf (AST/SGOT) 20 U/L (15-37) Alanine Aminotransferase (ALT/SGPT) 14 U/L (12-78) Alkaline Phosphatase 334 U/L (46-116) H Total Protein 8.0 G/DL (6.4-8.2) Albumin 2.6 G/DL (3.4-5.0) L Globulin 5.4 g/dL Albumin/Globulin Ratio 0.5 (1.0-2.7) L Vitamin D 25-Hydroxy Pending 25-Hydroxy Vitamin D2 Pending 25-Hydroxy Vitamin D3 Pending Thyroid Stimulating Hormone (TSH) 76.071 uiU/mL (0.358-3.740) Free Thyroxine Pending Free Triiodothyronine 1.2 pg/mL (2.3-4.2) L Objective HEAD AND NECK: No JVD.S/P Trach LUNGS: Coarse rhonchi. CARDIOVASCULAR: Regular S1 and S2 with no gallop. ABDOMEN: Status post PEG. EXTREMITIES: 1+ pitting edema. Flex Bess MD Sep 27, 2020 12:17
--- NOTE | 2020-09-27 12:36 | Pulmonology Progress Note ---
Subjective ROS Limited/Unobtainable: Yes Interval Events: None new Constitutional: Denies: fever HEENT: Repors: no symptoms Respiratory: Reports: no symptoms Cardiovascular: Reports: no symptoms Gastrointestinal/Abdominal: Reports: no symptoms Genitourinary: Reports: no symptoms Allergies: Coded Allergies: No Known Allergies (Unverified , 11/22/15) All Systems: reviewed and negative except above Objective Last 24 Hour Vital Signs Date Time Temp Pulse Resp B/P (MAP) Pulse Ox O2 Delivery O2 Flow Rate FiO2 09/27/20 12:00 Mechanical Ventilator Mechanical Ventilator 09/27/20 12:00 30 09/27/20 10:50 77 23 30 09/27/20 09:00 Mechanical Ventilator Mechanical Ventilator 09/27/20 08:00 98.1 69 21 110/70 (83) 100 09/27/20 08:00 30 09/27/20 07:59 66 09/27/20 06:45 73 18 30 09/27/20 04:00 97.9 75 20 123/53 (76) 100 09/27/20 04:00 Mechanical Ventilator Mechanical Ventilator 09/27/20 04:00 30 09/27/20 03:24 74 09/27/20 02:45 77 19 30 09/27/20 00:38 64 18 30 09/27/20 00:00 Mechanical Ventilator Mechanical Ventilator 09/27/20 00:00 98.2 82 20 124/64 (84) 100 09/27/20 00:00 30 09/26/20 23:03 86 09/26/20 20:00 98.2 74 20 122/68 (86) 100 09/26/20 20:00 30 09/26/20 20:00 Mechanical Ventilator Mechanical Ventilator 09/26/20 19:14 71 09/26/20 18:30 73 20 30 09/26/20 16:00 77 09/26/20 16:00 98.2 74 18 128/69 (88) 100 09/26/20 16:00 30 09/26/20 16:00 Mechanical Ventilator Mechanical Ventilator 09/26/20 14:55 71 21 30 Intake and Output 09/26/20 09/27/20 18:59 06:59 Intake Total 1000 ml 1510 ml Output Total 550 ml Balance 450 ml 1510 ml Free Water 100 ml 250 ml IV Total 350 ml 710 ml Tube Feeding 550 ml 550 ml Output Urine Total 550 ml # Voids 1 # Bowel Movements 1 General Appearance: no acute distress HEENT: normocephalic, atraumatic, status post trach Respiratory: chest wall non-tender, lungs clear, other - coarse rhonchi Cardiovascular: normal rate, regular rhythm Abdomen: normal bowel sounds, distended Laboratory Tests 09/26/20 18:24: POC Whole Blood Glucose 107H 09/27/20 00:19: POC Whole Blood Glucose 99 09/27/20 04:30: Sodium Level 139, Potassium Level 4.9, Chloride Level 106, Carbon Dioxide Level 29, Anion Gap 4L, Blood Urea Nitrogen 24H, Creatinine 0.5L, Estimat Glomerular Filtration Rate > 60, Glucose Level 110H, Uric Acid 3.7, Calcium Level 9.9, Phosphorus Level 2.4L, Magnesium Level 2.0, Total Bilirubin 0.4, Aspartate Amino Transf (AST/SGOT) 20, Alanine Aminotransferase (ALT/SGPT) 14, Alkaline Phosphat ase 334H, Total Protein 8.0, Albumin 2.6L, Globulin 5.4, Albumin/Globulin Ratio 0.5L, Vitamin D 25-Hydroxy [Pending], 25-Hydroxy Vitamin D2 [Pending], 25- Hydroxy Vitamin D3 [Pending], Thyroid Stimulating Hormone (TSH) 76.071H, Free Thyroxine [Pending], Free Triiodothyronine 1.2L 09/27/20 05:04: POC Whole Blood Glucose 101 Current Medications Medications (Trade) Dose Ordered Sig/Alex Route PRN Reason Start Time Stop Time Status Last Admin Dose Admin Acetaminophen (Tylenol) 500 mg Q4H PRN ORAL Mild Pain (Pain Scale 1-3) 09/15/20 23:15 10/15/20 23:14 09/23/20 16:49 Acetaminophen (Tylenol) 500 mg Q4H PRN ORAL Temp >100.5 09/15/20 23:15 10/15/20 23:14 09/24/20 16:19 Ascorbic Acid (Vitamin C) 250 mg TWICE A DAY ORAL 09/19/20 18:00 10/19/20 17:59 09/27/20 09:06 Hydralazine HCl (Apresoline) 10 mg Q2H PRN IV For High Blood Pressure 09/17/20 17:00 12/16/20 16:59 Levothyroxine Sodium (Synthroid) 50 mcg DAILY IV 09/26/20 13:00 10/26/20 12:59 09/27/20 09:05 Meropenem 1 gm/ Sodium Chloride 55 ml @ 110 mls/hr Q8HR IVPB 09/24/20 14:00 09/29/20 13:59 09/27/20 05:01 Multivitamins (Multivitamins) 1 tab DAILY ORAL 09/20/20 09:00 10/20/20 08:59 09/27/20 09:06 Pantoprazole (Protonix) 40 mg EVERY 12 HOURS IVP 09/17/20 14:15 10/17/20 14:14 09/27/20 09:05 Sodium Chloride 1,000 ml @ 50 mls/hr Q20H IV 09/26/20 11:15 10/26/20 11:14 09/27/20 07:59 Zinc Sulfate (Zinc Sulfate) 220 mg DAILY ORAL 09/20/20 09:00 09/30/20 08:59 09/27/20 09:06 Assessment/Plan Assessment/Plan 1. Anemia, likely iron deficiency. - On IV iron. - s/p transfusion per Dr. Cazares. 2. Interstitial infiltrates, has pneumonia. - Sputum -> Serratia - Antibiotics per ID. - Continue supplemental oxygen; continue ventilator, AC mode.FiO2 30% 3. Sepsis. - Antibiotics per ID. Gm neg rods in sputum CS; confirmed Serratia 4. History of fever. - Currently afebrile. 5. Possible COVID-19 infection. - Swab COVID-19 test negative. - Repeat PCR COVID-19 also negative 6. CHF. - 2D echocardiogram ordered per Cardio. 7. UTI. - On antibiotics. Has ESBL E. Coli 8. Elevated D-dimer. 9. DVT prophylaxis. - Venous duplex ultrasound negative. - on SCD 10. Chronic Respiratory Failure; continue vent; AC mode The history of Jennifer Gao has been reviewed and management options for her have been examined and discussed by Mino Childs. I have personally examined and interviewed the patient. Mino Childs MD Sep 27, 2020 12:36
--- NOTE | 2020-09-27 14:00 | NUR ---
NURSE NOTES: Turned and repositioned. No sign of distress. No grimacing noted.
--- NOTE | 2020-09-27 14:27 | Surgery Progress Note ---
Surgery Progress Note Subjective Additional Comments worsening leukocytosis no n/v labs noted exam stable Objective Last 24 Hour Vital Signs Date Time Temp Pulse Resp B/P (MAP) Pulse Ox O2 Delivery O2 Flow Rate FiO2 09/27/20 12:00 Mechanical Ventilator Mechanical Ventilator 09/27/20 12:00 30 09/27/20 12:00 97.1 73 22 100/69 (79) 100 09/27/20 11:29 69 09/27/20 10:50 77 23 30 09/27/20 09:00 Mechanical Ventilator Mechanical Ventilator 09/27/20 08:00 98.1 69 21 110/70 (83) 100 09/27/20 08:00 30 09/27/20 07:59 66 09/27/20 06:45 73 18 30 09/27/20 04:00 97.9 75 20 123/53 (76) 100 09/27/20 04:00 Mechanical Ventilator Mechanical Ventilator 09/27/20 04:00 30 09/27/20 03:24 74 09/27/20 02:45 77 19 30 09/27/20 00:38 64 18 30 09/27/20 00:00 Mechanical Ventilator Mechanical Ventilator 09/27/20 00:00 98.2 82 20 124/64 (84) 100 09/27/20 00:00 30 09/26/20 23:03 86 09/26/20 20:00 98.2 74 20 122/68 (86) 100 09/26/20 20:00 30 09/26/20 20:00 Mechanical Ventilator Mechanical Ventilator 09/26/20 19:14 71 09/26/20 18:30 73 20 30 09/26/20 16:00 77 09/26/20 16:00 98.2 74 18 128/69 (88) 100 09/26/20 16:00 30 09/26/20 16:00 Mechanical Ventilator Mechanical Ventilator 09/26/20 14:55 71 21 30 I&O Intake and Output 09/26/20 09/27/20 19:00 07:00 Intake Total 1050 ml 1410 ml Output Total 550 ml Balance 500 ml 1410 ml Free Water 100 ml 250 ml IV Total 400 ml 660 ml Tube Feeding 550 ml 500 ml Output Urine Total 550 ml # Voids 1 # Bowel Movements 1 Dressing: saturated Cardiovascular: RSR Respiratory: decreased breath sounds Abdomen: soft, non-tender, present bowel sounds Extremities: no tenderness, no cyanosis Laboratory Tests Test 09/26/20 18:24 09/27/20 00:19 09/27/20 04:30 09/27/20 05:04 POC Whole Blood Glucose 107 MG/DL (74-106) H 99 MG/DL (74-106) 101 MG/DL (74-106) Sodium Level 139 MMOL/L (136-145) Potassium Level 4.9 MMOL/L (3.5-5.1) Chloride Level 106 MMOL/L (98-107) Carbon Dioxide Level 29 MMOL/L (21-32) Anion Gap 4 mmol/L (5-15) L Blood Urea Nitrogen 24 mg/dL (7-18) H Creatinine 0.5 MG/DL (0.55-1.30) L Estimat Glomerular Filtration Rate > 60 mL/min (>60) Glucose Level 110 MG/DL (74-106) H Uric Acid 3.7 MG/DL (2.6-7.2) Calcium Level 9.9 MG/DL (8.5-10.1) Phosphorus Level 2.4 MG/DL (2.5-4.9) L Magnesium Level 2.0 MG/DL (1.8-2.4) Total Bilirubin 0.4 MG/DL (0.2-1.0) Aspartate Amino Transf (AST/SGOT) 20 U/L (15-37) Alanine Aminotransferase (ALT/SGPT) 14 U/L (12-78) Alkaline Phosphatase 334 U/L (46-116) H Total Protein 8.0 G/DL (6.4-8.2) Albumin 2.6 G/DL (3.4-5.0) L Globulin 5.4 g/dL Albumin/Globulin Ratio 0.5 (1.0-2.7) L Vitamin D 25-Hydroxy Pending 25-Hydroxy Vitamin D2 Pending 25-Hydroxy Vitamin D3 Pending Thyroid Stimulating Hormone (TSH) 76.071 uiU/mL (0.358-3.740) Free Thyroxine Pending Free Triiodothyronine 1.2 pg/mL (2.3-4.2) L Plan Problems: (1) Pneumonia (2) Functional quadriplegia (3) Person under investigation for COVID-19 (4) Chronic respiratory failure (5) Dehydration (6) Hypernatremia (7) Hypothyroidism (8) Pyelonephritis (9) Protein calorie malnutrition Assessment & Plan: DAILY ESTIMATED NEEDS: Needs based on Wound, critical care 57.5kg abw 25-30 kcals/kg 6020-2651 total kcals 1.25-2 g protein/kg 72-115 g total protein 25-30 mL/kg 2265-7358 total fluid mLs NUTRITION DIAGNOSIS: * Increased kcal/prot needs R/T wound healing as evidenced by pt w/ h/o stage 4 sacral wound, eval is pending. * Swallowing difficulty R/T dysphagia, respiratory status as evidenced by pt is Trach and PEG dep. ENTERAL NUTRITION RECOMMENDATIONS: Glucerna 1.2 @ 55ml/hr x 24 hrs to provide 1320ml, 1584 kcal, 79g pro, 1063ml free H2O * As medically able, start Glucerna 1.2 @35ml/hr for 6 hrs, advance as tolerated q4-6 to goal. * Add TYRESE in 4oz water BID via PEG for wound healing * HOB over 30 degrees/ water flush per MD ADDITIONAL RECOMMENDATIONS: * Calibrated bedscale wt for accurate CBW * Wound healing: TYRESE BID, Vit C 250mg BID F/up w/ WC eval * Monitor lytes, replete as needed * Monitor BGs w/ TF-> bed side BG checks + NISS (10) Failure to thrive (child) (11) Sacral decubitus ulcer Assessment & Plan: Pt presented on admission with Tracheostomy, GT, and multiple Pressure injuries. No erythema or evidence of skin breakdown under tracheal collar. dry dark brown skin plaque noted at R lateral chest to R flank. Full thickness stage 4 Sacral Pressure Injury with undermined borders(L)2cm x (W)2cm x (D)2cm, undermining clockwise 11-3 by 2.3cm @3o'clock.Ability to accurately assess base of wound is not fully appreciated secondary to shape of wound. (+) Epibole along edges of wound. Silver Nitrate sticks application applied to Borders. Bone is palpable when probed.Small amt brown exudate noted. No odor noted. [place] Atrophic scar periwound. Resolving Pressure Injury R Ischium. [place] epithelial noted at base of wound. Intact serous Blister noted to monica/upper L thigh. No erythema or changes in skin temp at affected site. Reabsorbing DTPI L Hallux. Base of Pressure injury is dark brown,dry without erythema,induration or fluctuance. L Heel is boggy with non-blanchable erythema. R Heel is boggy but blanchable. Tx.Plan: Cleanse Sacral wound with Saline. Loosely pack with Therahoney impregnated Kerlix.Apply Moisture Barrier Paste periwound. Cover with Optifoam drsg every 3 days and prn. Apply Moisture Barrier Paste to R Ischium. Cover with Optifoam drsg. Change every 3 days and prn. Apply Phytoplex Skin Nourishing lotion to Lateral R chest /R Flank Daily. Apply Cavilon Skin Barrier to R and L Heel. Cover each heel with Optifoam drsg.Change every 7 days and prn. Reposition at least every 2hours or as tolerated. Off-load heels with pillow. (12) Tracheostomy dependence (13) Sepsis (14) UTI (urinary tract infection) (15) Anemia (16) Dysphagia (17) Hypoalbuminemia (18) Iron deficiency (19) At high risk for aspiration (20) Parkinson disease (21) Dementia (22) Elevated CEA (23) Paroxysmal A-fib (24) Pancytopenia Holland Petty Sep 27, 2020 14:27
[2020-09-27 16:00] VITALS: BP 126/74
--- NOTE | 2020-09-27 16:20 | NUR ---
NURSE NOTES: Suctioned by RT. Tolerated well.
--- NOTE | 2020-09-27 19:23 | NUR ---
NURSE HAND-OFF REPORT: Important Events on Shift: Pt. remain stable Patient Status: stable Diet: Glucerna 1.2 Pending Orders: n Pending Results/Labs:n Pending MD notification:n Latest Vital Signs: Temperature 98.2 , Pulse 70 , B/P 126 /74 , Respiratory Rate 23 , O2 SAT 100 , Mechanical Ventilator, O2 Flow Rate 50.0 . Vital Sign Comment: wnl EKG Rhythm: Sinus Rhythm Rhythm change?: N MD Notified?: - MD Response: Latest [place] Fall Score: 50 Fall Risk: High Risk Safety Measures: Call light Within Reach, Bed Alarm Zone 3, Side Rails Side Rails x2, Bed position Low and Locked. Fall Precautions: Yellow Socks Yellow Gown Door Sign Report given to Tiffanie Crum.
--- NOTE | 2020-09-27 19:41 | NUR ---
NURSE NOTES: Received report from CRISTY Dorantes. Pt is asleep, obtunded, arousable to shaking. No signs of distress noted, panel monitor shows SR and O2 saturation is 100% on AC 12, TV 400, FiO2 30%, PEEP 5. GT is intact, 5ml residual, running Glucerna 1.2 50cc/hr. Flushed 100cc. Rectal tube and purewick intact, draining well. L FA 22g and L hand 24g asymptomatic and flushing well. Skin issues noted. HOB elevated, side rails x3, call light within reach, bed alarmed, locked, and in lowest position. Will continue to monitor. Will continue plan of care.
[2020-09-27 20:00] VITALS: BP 117/59
--- NOTE | 2020-09-27 20:27 | General Progress Note ---
Subjective Allergies: Coded Allergies: No Known Allergies (Unverified , 11/22/15) Subjective Above noted Tolerating TF Non verbal d/w staffing consultant Objective Last 24 Hour Vital Signs Date Time Temp Pulse Resp B/P (MAP) Pulse Ox O2 Delivery O2 Flow Rate FiO2 09/27/20 18:55 63 15 30 09/27/20 16:00 Mechanical Ventilator Mechanical Ventilator 09/27/20 16:00 98.2 70 23 126/74 (91) 100 09/27/20 16:00 30 09/27/20 15:30 64 09/27/20 14:50 72 17 30 09/27/20 12:00 Mechanical Ventilator Mechanical Ventilator 09/27/20 12:00 30 09/27/20 12:00 97.1 73 22 100/69 (79) 100 09/27/20 11:29 69 09/27/20 10:50 77 23 30 09/27/20 09:00 Mechanical Ventilator Mechanical Ventilator 09/27/20 08:00 98.1 69 21 110/70 (83) 100 09/27/20 08:00 30 09/27/20 07:59 66 09/27/20 06:45 73 18 30 09/27/20 04:00 97.9 75 20 123/53 (76) 100 09/27/20 04:00 Mechanical Ventilator Mechanical Ventilator 09/27/20 04:00 30 09/27/20 03:24 74 09/27/20 02:45 77 19 30 09/27/20 00:38 64 18 30 09/27/20 00:00 Mechanical Ventilator Mechanical Ventilator 09/27/20 00:00 98.2 82 20 124/64 (84) 100 09/27/20 00:00 30 09/26/20 23:03 86 Intake and Output 09/26/20 09/27/20 19:00 07:00 Intake Total 1050 ml 1510 ml Output Total 550 ml Balance 500 ml 1510 ml Free Water 100 ml 250 ml IV Total 400 ml 710 ml Tube Feeding 550 ml 550 ml Output Urine Total 550 ml # Voids 1 # Bowel Movements 1 Laboratory Tests 09/27/20 00:19: POC Whole Blood Glucose 99 09/27/20 04:30: Sodium Level 139, Potassium Level 4.9, Chloride Level 106, Carbon Dioxide Level 29, Anion Gap 4L, Blood Urea Nitrogen 24H, Creatinine 0.5L, Estimat Glomerular Filtration Rate > 60, Glucose Level 110H, Uric Acid 3.7, Calcium Level 9.9, Phosphorus Level 2.4L, Magnesium Level 2.0, Total Bilirubin 0.4, Aspartate Amino Transf (AST/SGOT) 20, Alanine Aminotransferase (ALT/SGPT) 14, Alkaline Phosphatase 334H, Total Protein 8.0, Albumin 2.6L, Globulin 5.4, Albumin/Globulin Ratio 0.5L, Vitamin D 25-Hydroxy [Pending], 25-Hydroxy Vitamin D2 [Pending], 25-Hydroxy Vitamin D3 [Pending], Thyroid Stimulating Hormone (TSH) 76.071H, Free Thyroxine [Pending], Free Triiodothyronine 1.2L 09/27/20 05:04: POC Whole Blood Glucose 101 Height (Feet): 5 Height (Inches): 3.00 Weight (Pounds): 145 Objective debilitated Elderly woman on vent NCAT neck (+) trach coarse BS RR abd soft , flat, (+) GT no edema, (++) contractures Assessment/Plan Status: progressing Assessment/Plan: Assessment - GT site drainage/discharge - resolved - mildly elevated alk phos - possibly vitamin D related - OBS - Resp failure, s/p Trach - s/p PEG for dysphagia, - Parkinsons - Schizophrenia - h/o decub ulcers - Severe anemia Recommendations - check vitamin D - GT care - Elevate HOB - monitor labs Tana Romano MD Sep 27, 2020 20:27
--- NOTE | 2020-09-27 21:14 | General Progress Note ---
Subjective ROS Limited/Unobtainable: Yes Allergies: Coded Allergies: No Known Allergies (Unverified , 11/22/15) Objective Last 24 Hour Vital Signs Date Time Temp Pulse Resp B/P (MAP) Pulse Ox O2 Delivery O2 Flow Rate FiO2 09/27/20 20:00 30 09/27/20 20:00 63 09/27/20 20:00 Mechanical Ventilator Mechanical Ventilator 09/27/20 20:00 98.2 64 20 117/59 (78) 100 09/27/20 18:55 63 15 30 09/27/20 16:00 Mechanical Ventilator Mechanical Ventilator 09/27/20 16:00 98.2 70 23 126/74 (91) 100 09/27/20 16:00 30 09/27/20 15:30 64 09/27/20 14:50 72 17 30 09/27/20 12:00 Mechanical Ventilator Mechanical Ventilator 09/27/20 12:00 30 09/27/20 12:00 97.1 73 22 100/69 (79) 100 09/27/20 11:29 69 09/27/20 10:50 77 23 30 09/27/20 09:00 Mechanical Ventilator Mechanical Ventilator 09/27/20 08:00 98.1 69 21 110/70 (83) 100 09/27/20 08:00 30 09/27/20 07:59 66 09/27/20 06:45 73 18 30 09/27/20 04:00 97.9 75 20 123/53 (76) 100 09/27/20 04:00 Mechanical Ventilator Mechanical Ventilator 09/27/20 04:00 30 09/27/20 03:24 74 09/27/20 02:45 77 19 30 09/27/20 00:38 64 18 30 09/27/20 00:00 Mechanical Ventilator Mechanical Ventilator 09/27/20 00:00 98.2 82 20 124/64 (84) 100 09/27/20 00:00 30 09/26/20 23:03 86 Intake and Output 09/26/20 09/27/20 19:00 07:00 Intake Total 1050 ml 1510 ml Output Total 550 ml Balance 500 ml 1510 ml Free Water 100 ml 250 ml IV Total 400 ml 710 ml Tube Feeding 550 ml 550 ml Output Urine Total 550 ml # Voids 1 # Bowel Movements 1 Laboratory Tests 09/27/20 00:19: POC Whole Blood Glucose 99 09/27/20 04:30: Sodium Level 139, Potassium Level 4.9, Chloride Level 106, Carbon Dioxide Level 29, Anion Gap 4L, Blood Urea Nitrogen 24H, Creatinine 0.5L, Estimat Glomerular Filtration Rate > 60, Glucose Level 110H, Uric Acid 3.7, Calcium Level 9.9, Phosphorus Level 2.4L, Magnesium Level 2.0, Total Bilirubin 0.4, Aspartate Amino Transf (AST/SGOT) 20, Alanine Aminotransferase (ALT/SGPT) 14, Alkaline Phosphatase 334H, Total Protein 8.0, Albumin 2.6L, Globulin 5.4, Albumin/Globulin Ratio 0.5L, Vitamin D 25-Hydroxy [Pending], 25-Hydroxy Vitamin D2 [Pending], 25-Hydroxy Vitamin D3 [Pending], Thyroid Stimulating Hormone (TSH) 76.071H, Free Thyroxine [Pending], Free Triiodothyronine 1.2L 09/27/20 05:04: POC Whole Blood Glucose 101 Height (Feet): 5 Height (Inches): 3.00 Weight (Pounds): 145 Assessment/Plan Problem List: (1) Hypothyroidism ICD Codes: E03.9 - Hypothyroidism, unspecified SNOMED: 42153939 (2) Chronic respiratory failure ICD Codes: J96.10 - Chronic respiratory failure, unspecified whether with hypoxia or hypercapnia SNOMED: 93030192 (3) Functional quadriplegia ICD Codes: R53.2 - Functional quadriplegia SNOMED: 578265914714844 (4) Protein calorie malnutrition ICD Codes: E46 - Unspecified protein-calorie malnutrition SNOMED: 469110914 (5) Failure to thrive (child) ICD Codes: R62.51 - Failure to thrive (child) SNOMED: 553310725 (6) Sacral decubitus ulcer ICD Codes: L89.159 - Pressure ulcer of sacral region, unspecified stage SNOMED: 680402247 (7) Tracheostomy dependence ICD Codes: Z93.0 - Tracheostomy status SNOMED: 418926701 (8) Sepsis ICD Codes: A41.9 - Sepsis, unspecified organism SNOMED: 76481503 (9) Anemia ICD Codes: D64.9 - Anemia, unspecified SNOMED: 633120705 Qualifiers: Qualified Codes: D64.9 - Anemia, unspecified (10) UTI (urinary tract infection) ICD Codes: N39.0 - Urinary tract infection, site not specified SNOMED: 39829399 Qualifiers: Qualified Codes: N39.0 - Urinary tract infection, site not specified Status: progressing Assessment/Plan: trach and peg pna sepsis quadroplegia abx per id no change afebrile check Sandeep Victor MD Sep 27, 2020 21:14
--- NOTE | 2020-09-27 21:30 | NUR ---
NURSE NOTES: Gave PM meds. Tolerated well. No signs of distress or pain noted. Will continue plan of care. WIll continue to monitor.
[2020-09-28] VITALS: BP 106/57
--- NOTE | 2020-09-28 00:43 | NUR ---
NURSE NOTES: Performed oral care and turned pt. Tolerated well. Will continue plan of care. Will continue to monitor.
--- NOTE | 2020-09-28 03:54 | NUR ---
NURSE NOTES: Turned and cleaned pt, changed gowns and linens. Redressed sacral wound per wound care order. Pt remains stable at this time. No distress noted.
[2020-09-28 04:00] VITALS: BP 128/68
[2020-09-28] MEDS: Meropenem 1 GM in NS 55 ML IVPB SCH ×3 (05:36→21:24)
[2020-09-28 06:18] LABS: HEMATOCRIT 33.4 % (37.0-47.0); HEMOGLOBIN 10.7 G/DL (12.0-16.0); MEAN CORPUSCULAR VOLUME 98 FL (80-99); PLATELET COUNT 214 K/UL (150-450); RED BLOOD COUNT 3.42 M/UL (4.20-5.40); RED CELL DISTRIBUTION WIDTH 16.5 % (11.6-14.8); WHITE BLOOD COUNT 17.1 K/UL (4.8-10.8)
--- NOTE | 2020-09-28 06:26 | Hematology/Onc Progress Note ---
Assessment/Plan Assessment/Plan LABORATORY DATA: 04/2020 white count 4.7, platelets 140 otherwise CBC is normal. BMP shows chloride 110, creatinine 0.4. Albumin 2.9, otherwise normal. INR 1.0, PTT 27. Urinalysis shows 2+ leukocyte esterase. 09/16 wbc 10, hgb 7.5, plt 126 Imaging 07/01/20 cxr Bilateral patchy airspace opacities. Differential includes multifocal pneumonia and pulmonary edema. 09/16/20 cxr b/l infiltrates noted Assessment and Recommendations # Anemia of iron deficiency, has been persistent for months, now improved, as ferritin better --> Anemia workup has been ordered--> improved --> No evidence of hemolysis is noted, peripheral smear has been reviewed. --> Hgb goal >7. Transfuse prn. --> Iron iv not needed any further --> Medications have been reviewed --> gb 9-->8.4->>>>7.5-->9.4-->9->10-->9.4->10.1 # Right breast calcifications --> does not have a breast mass on exam --> f/u as outpatient with mammo as needed --> do not do a us breast here # Thrombocytopenia - potential causes multifactorial, evaluate liver and viral etiologies to begin, also could be related to underlying medications, no wimproved --> Hep panel and HIV prior negative -> plt 183->203->199-->125->130 --> abx # Leukocytosis with Pna --> antibiotics per id --> wbc 16->10.8-->16 --> smear is noted # Sepsis --> antibiotics per Infectious Disease. --> ABX vanc/zosyn->meropenem # Dehydration. --> PT and Dietary evaluation. # Hypertension --> Blood pressure control. # Dvt ppx scds The timing of this note does not necessarily reflect the time of the patient was seen Greatly appreciate consultation! Subjective Constitutional: Denies: no symptoms, chills, fever, malaise, weakness, other HEENT: Denies: no symptoms, eye pain, blurred vision, tearing, double vision, ear pain, ear discharge, nose pain, nose congestion, throat pain, throat swelling, mouth pain, mouth swelling, other Cardiovascular: Denies: no symptoms, chest pain, edema, irregular heart rate, lightheadedness, palpitations, syncope, other Genitourinary: Denies: no symptoms, burning, discharge, frequency, flank pain, hematuria, incontinence, pain, urgency, other Neurologic/Psychiatric: Denies: no symptoms, anxiety, depressed, emotional problems, headache, numbness, paresthesia, pre-existing deficit, seizure, tingling, tremors, weakness, other Endocrine: Denies: no symptoms, excessive sweating, flushing, intolerance to cold, intolerance to heat, increased hunger, increased thirst, increased urine, unexplained weight gain, unexplained weight loss, other Allergies: Coded Allergies: No Known Allergies (Unverified , 11/22/15) Subjective 09/18 labs are noted, no bleeding, seen by pulm, cbc is pending 09/19 gtube is running, meds reviewed, labs noted 09/20 labs reviewed, meds noted, cbc is pending, vanc was added recently 09/21 labs reviewed, meds noetd, hgb 10, bactrim, yovani, vanc 09/22 is satting well on the vent, abx, labs still pending for am 09/23 remains on vent, not in acute distress, no bleeding, no night sweats 09/25 labs pending, on trach, vent gtube, meds reviewed, feeds ongoing 09/26 obtunded, labs pending, trach/vent, no bleeding, meds noted 09/27 pending cbc, is s/p peg feeds, hany/trach 09/28 obtunded, no events, s/p peg, vent/trach, cleaned per Rn Objective Objective Current Medications Medications (Trade) Dose Ordered Sig/Alex Route PRN Reason Start Time Stop Time Status Last Admin Dose Admin Acetaminophen (Tylenol) 500 mg Q4H PRN ORAL Mild Pain (Pain Scale 1-3) 09/15/20 23:15 10/15/20 23:14 09/23/20 16:49 Acetaminophen (Tylenol) 500 mg Q4H PRN ORAL Temp >100.5 09/15/20 23:15 10/15/20 23:14 09/24/20 16:19 Ascorbic Acid (Vitamin C) 250 mg TWICE A DAY ORAL 09/19/20 18:00 10/19/20 17:59 09/27/20 18:27 Hydralazine HCl (Apresoline) 10 mg Q2H PRN IV For High Blood Pressure 09/17/20 17:00 12/16/20 16:59 Levothyroxine Sodium (Synthroid) 50 mcg DAILY IV 09/26/20 13:00 10/26/20 12:59 09/27/20 09:05 Meropenem 1 gm/ Sodium Chloride 55 ml @ 110 mls/hr Q8HR IVPB 09/24/20 14:00 09/29/20 13:59 09/28/20 05:36 Multivitamins (Multivitamins) 1 tab DAILY ORAL 09/20/20 09:00 10/20/20 08:59 09/27/20 09:06 Pantoprazole (Protonix) 40 mg EVERY 12 HOURS IVP 09/17/20 14:15 10/17/20 14:14 09/27/20 20:25 Sodium Chloride 1,000 ml @ 50 mls/hr Q20H IV 09/26/20 11:15 10/26/20 11:14 09/28/20 03:24 Zinc Sulfate (Zinc Sulfate) 220 mg DAILY ORAL 09/20/20 09:00 09/30/20 08:59 09/27/20 09:06 Last 24 Hour Vital Signs Date Time Temp Pulse Resp B/P (MAP) Pulse Ox O2 Delivery O2 Flow Rate FiO2 09/28/20 04:00 66 09/28/20 04:00 97.9 64 18 128/68 (88) 100 09/28/20 04:00 Mechanical Ventilator Mechanical Ventilator 09/28/20 04:00 30 09/28/20 03:01 62 13 30 09/28/20 00:40 63 09/28/20 00:00 98.2 62 18 106/57 (73) 100 09/28/20 00:00 Mechanical Ventilator Mechanical Ventilator 09/28/20 00:00 30 09/27/20 23:00 66 15 30 09/27/20 20:00 30 09/27/20 20:00 63 09/27/20 20:00 Mechanical Ventilator Mechanical Ventilator 09/27/20 20:00 98.2 64 20 117/59 (78) 100 09/27/20 18:55 63 15 30 09/27/20 16:00 Mechanical Ventilator Mechanical Ventilator 09/27/20 16:00 98.2 70 23 126/74 (91) 100 09/27/20 16:00 30 09/27/20 15:30 64 09/27/20 14:50 72 17 30 09/27/20 12:00 Mechanical Ventilator Mechanical Ventilator 09/27/20 12:00 30 09/27/20 12:00 97.1 73 22 100/69 (79) 100 09/27/20 11:29 69 09/27/20 10:50 77 23 30 09/27/20 09:00 Mechanical Ventilator Mechanical Ventilator 09/27/20 08:00 98.1 69 21 110/70 (83) 100 09/27/20 08:00 30 09/27/20 07:59 66 09/27/20 06:45 73 18 30 09/27/20 04:00 97.9 75 20 123/53 (76) 100 09/27/20 04:00 Mechanical Ventilator Mechanical Ventilator 09/27/20 04:00 30 09/27/20 03:24 74 09/27/20 02:45 77 19 30 09/27/20 00:38 64 18 30 09/27/20 00:00 Mechanical Ventilator Mechanical Ventilator 09/27/20 00:00 98.2 82 20 124/64 (84) 100 09/27/20 00:00 30 09/26/20 23:03 86 09/26/20 20:00 98.2 74 20 122/68 (86) 100 09/26/20 20:00 30 09/26/20 20:00 Mechanical Ventilator Mechanical Ventilator 09/26/20 19:14 71 09/26/20 18:30 73 20 30 09/26/20 16:00 77 09/26/20 16:00 98.2 74 18 128/69 (88) 100 09/26/20 16:00 30 09/26/20 16:00 Mechanical Ventilator Mechanical Ventilator 09/26/20 14:55 71 21 30 09/26/20 12:00 30 09/26/20 12:00 97.5 78 18 105/61 (76) 98 09/26/20 12:00 Mechanical Ventilator Mechanical Ventilator 09/26/20 12:00 72 09/26/20 11:01 72 19 30 09/26/20 08:26 30 09/26/20 08:00 69 09/26/20 08:00 Mechanical Ventilator Mechanical Ventilator 09/26/20 08:00 98.2 70 19 120/56 (77) 100 09/26/20 07:26 75 20 30 Intake and Output 09/27/20 09/28/20 19:00 07:00 Intake Total 1505 ml 1403 ml Balance 1505 ml 1403 ml Free Water 400 ml 100 ml IV Total 505 ml 903 ml Tube Feeding 600 ml 400 ml Labs Test 09/25/20 11:15 09/25/20 11:53 09/25/20 18:17 09/26/20 04:43 White Blood Count 16.1 K/UL (4.8-10.8) 18.4 K/UL (4.8-10.8) Red Blood Count 3.34 M/UL (4.20-5.40) 3.12 M/UL (4.20-5.40) Hemoglobin 10.4 G/DL (12.0-16.0) 9.8 G/DL (12.0-16.0) Hematocrit 30.7 % (37.0-47.0) 29.2 % (37.0-47.0) Mean Corpuscular Volume 92 FL (80-99) 94 FL (80-99) Mean Corpuscular Hemoglobin 31.2 PG (27.0-31.0) 31.4 PG (27.0-31.0) Mean Corpuscular Hemoglobin Concent 33.9 G/DL (32.0-36.0) 33.4 G/DL (32.0-36.0) Red Cell Distribution Width 17.3 % (11.6-14.8) 15.8 % (11.6-14.8) Platelet Count 178 K/UL (150-450) 191 K/UL (150-450) Mean Platelet Volume 8.9 FL (6.5-10.1) 8.3 FL (6.5-10.1) Neutrophils (%) (Auto) % (45.0-75.0) % (45.0-75.0) Lymphocytes (%) (Auto) % (20.0-45.0) % (20.0-45.0) Monocytes (%) (Auto) % (1.0-10.0) % (1.0-10.0) Eosinophils (%) (Auto) % (0.0-3.0) % (0.0-3.0) Basophils (%) (Auto) % (0.0-2.0) % (0.0-2.0) Differential Total Cells Counted 100 100 Neutrophils % (Manual) 46 % (45-75) 53 % (45-75) Lymphocytes % (Manual) 8 % (20-45) 8 % (20-45) Monocytes % (Manual) 5 % (1-10) 7 % (1-10) Eosinophils % (Manual) 38 % (0-3) 32 % (0-3) Basophils % (Manual) 1 % (0-2) 0 % (0-2) Band Neutrophils 2 % (0-8) 0 % (0-8) Platelet Estimate Adequate Adequate Platelet Morphology Normal Normal Hypochromasia 1+ Anisocytosis 1+ 1+ POC Whole Blood Glucose 111 MG/DL (74-106) 93 MG/DL (74-106) Test 09/26/20 05:03 09/26/20 11:56 09/26/20 18:24 09/27/20 00:19 POC Whole Blood Glucose 103 MG/DL (74-106) 101 MG/DL (74-106) 107 MG/DL (74-106) 99 MG/DL (74-106) Test 09/27/20 04:30 09/27/20 05:04 09/27/20 23:15 09/28/20 03:41 Sodium Level 139 MMOL/L (136-145) Potassium Level 4.9 MMOL/L (3.5-5.1) Chloride Level 106 MMOL/L (98-107) Carbon Dioxide Level 29 MMOL/L (21-32) Anion Gap 4 mmol/L (5-15) Blood Urea Nitrogen 24 mg/dL (7-18) Creatinine 0.5 MG/DL (0.55-1.30) Estimat Glomerular Filtration Rate > 60 mL/min (>60) Glucose Level 110 MG/DL (74-106) Uric Acid 3.7 MG/DL (2.6-7.2) Calcium Level 9.9 MG/DL (8.5-10.1) Phosphorus Level 2.4 MG/DL (2.5-4.9) Magnesium Level 2.0 MG/DL (1.8-2.4) Total Bilirubin 0.4 MG/DL (0.2-1.0) Aspartate Amino Transf (AST/SGOT) 20 U/L (15-37) Alanine Aminotransferase (ALT/SGPT) 14 U/L (12-78) Alkaline Phosphatase 334 U/L (46-116) Total Protein 8.0 G/DL (6.4-8.2) Albumin 2.6 G/DL (3.4-5.0) Globulin 5.4 g/dL Albumin/Globulin Ratio 0.5 (1.0-2.7) Thyroid Stimulating Hormone (TSH) 76.071 uiU/mL (0.358-3.740) Free Triiodothyronine 1.2 pg/mL (2.3-4.2) POC Whole Blood Glucose 101 MG/DL (74-106) 95 MG/DL (74-106) Test 09/28/20 05:34 POC Whole Blood Glucose 101 MG/DL (74-106) Height (Feet): 5 Height (Inches): 3.00 Weight (Pounds): 145 Objective PHYSICAL EXAMINATION: GENERAL: obtunded, oriented x1, CARDIOVASCULAR: No murmur. LUNGS: Poor air exchange.+vent/trach ABDOMEN: Bowel sounds distant.++peg EXTREMITIES: No cyanosis, clubbing, or edema NEUROLOGIC: Neck, weakness as well leaning forward.bedbound++ Alan Cazares MD Sep 28, 2020 06:26
--- NOTE | 2020-09-28 07:22 | NUR ---
NURSE HAND-OFF REPORT: Important Events on Shift:[Non-eventful] Patient Status: [Stable] Diet: [Glucerna 1.2 50cc/hr] Pending Orders: [NA] Pending Results/Labs:[NA] Pending MD notification:[NA] Latest Vital Signs: Temperature 97.9 , Pulse 66 , B/P 128 /68 , Respiratory Rate 18 , O2 SAT 100 , Mechanical Ventilator, O2 Flow Rate 50.0 . Vital Sign Comment: [Stable] EKG Rhythm: Sinus Rhythm Rhythm change?: N MD Notified?: - MD Response: Latest [place] Fall Score: 50 Fall Risk: High Risk Safety Measures: Call light Within Reach, Bed Alarm Zone 3, Side Rails Side Rails x2, Bed position Low and Locked. Fall Precautions: Yellow Socks Yellow Gown Door Sign Report given to [CRISTY Castelan].
--- NOTE | 2020-09-28 07:44 | NUR ---
NURSE NOTES:Handoff received from CRISTY Moreno. Patient received sleeping in bed, patient opens eyes to shaking but unable to follow commands. patient is on trach to vent with settings of AC12, TV400, FI02 30% and PEEP of 5 saturating at 96% with no signs of distress noted. Patient is placed on contact isolation for ESBL and VRE. G tube feeding is on hold for Synthroid at 0900, G tube flushed and residual of 10ML noted. Patient is on environmental monitoring technician, has purewick connected to suction and rectal tube patient and draining to gravity. IV sites are clean dry and intact, with L FA running NS at 50ML/HR. Skin issues noted. Patient is also on aspiration and fall precautions with bed in the low and locked position and call light on bed next to patient. Will follow plan of care.
[2020-09-28 08:00] VITALS: BP 131/62
[2020-09-28] MEDS: Ascorbic Acid 500mg tab ORAL SCH ×2 (09:48→17:16)
[2020-09-28] MEDS: Pantoprazole Inj IVP SCH ×2 (09:48→21:23)
[2020-09-28] MEDS: Zinc Sulfate 220mg ORAL SCH (09:49)
--- NOTE | 2020-09-28 11:29 | Infectious Diseases Prog Note ---
Assessment/Plan Assessment/Plan antibiotics : meropenem A 1. VRE sepsis 2. Serratia, Pseudomonas & Stenotrophomonas pneumonia, 3. E coli UTI, 4. respiratory failure, 5. Quadriplegia, 6. COPD, 7. Hypertension 8. leucocytosis improving P 1. continue meropenem 2. will follow up cultures Subjective ROS Limited/Unobtainable: Yes Allergies: Coded Allergies: No Known Allergies (Unverified , 11/22/15) Objective Last 24 Hour Vital Signs Date Time Temp Pulse Resp B/P (MAP) Pulse Ox O2 Delivery O2 Flow Rate FiO2 09/28/20 08:00 30 09/28/20 08:00 97.9 60 16 131/62 (85) 100 09/28/20 08:00 Mechanical Ventilator Mechanical Ventilator 09/28/20 07:46 58 09/28/20 04:00 66 09/28/20 04:00 97.9 64 18 128/68 (88) 100 09/28/20 04:00 Mechanical Ventilator Mechanical Ventilator 09/28/20 04:00 30 09/28/20 03:01 62 13 30 09/28/20 00:40 63 09/28/20 00:00 98.2 62 18 106/57 (73) 100 09/28/20 00:00 Mechanical Ventilator Mechanical Ventilator 09/28/20 00:00 30 09/27/20 23:00 66 15 30 09/27/20 20:00 30 09/27/20 20:00 63 09/27/20 20:00 Mechanical Ventilator Mechanical Ventilator 09/27/20 20:00 98.2 64 20 117/59 (78) 100 09/27/20 18:55 63 15 30 09/27/20 16:00 Mechanical Ventilator Mechanical Ventilator 09/27/20 16:00 98.2 70 23 126/74 (91) 100 09/27/20 16:00 30 09/27/20 15:30 64 09/27/20 14:50 72 17 30 09/27/20 12:00 Mechanical Ventilator Mechanical Ventilator 09/27/20 12:00 30 09/27/20 12:00 97.1 73 22 100/69 (79) 100 09/27/20 11:29 69 Height (Feet): 5 Height (Inches): 3.00 Weight (Pounds): 145 HEENT: status post trach Respiratory/Chest: lungs clear Cardiovascular: normal rate, regular rhythm, no gallop/murmur Abdomen: soft, non tender, other - GT Extremities: no edema Laboratory Tests Test 09/27/20 23:15 09/28/20 03:41 09/28/20 05:34 POC Whole Blood Glucose 95 MG/DL (74-106) 101 MG/DL (74-106) White Blood Count 17.1 K/UL (4.8-10.8) H Red Blood Count 3.42 M/UL (4.20-5.40) L Hemoglobin 10.7 G/DL (12.0-16.0) L Hematocrit 33.4 % (37.0-47.0) L Mean Corpuscular Volume 98 FL (80-99) Mean Corpuscular Hemoglobin 31.1 PG (27.0-31.0) H Mean Corpuscular Hemoglobin Concent 31.9 G/DL (32.0-36.0) L Red Cell Distribution Width 16.5 % (11.6-14.8) H Platelet Count 214 K/UL (150-450) Mean Platelet Volume 9.4 FL (6.5-10.1) Neutrophils (%) (Auto) % (45.0-75.0) Lymphocytes (%) (Auto) % (20.0-45.0) Monocytes (%) (Auto) % (1.0-10.0) Eosinophils (%) (Auto) % (0.0-3.0) Basophils (%) (Auto) % (0.0-2.0) Differential Total Cells Counted 100 Neutrophils % (Manual) 34 % (45-75) L Lymphocytes % (Manual) 10 % (20-45) L Monocytes % (Manual) 6 % (1-10) Eosinophils % (Manual) 49 % (0-3) H Basophils % (Manual) 0 % (0-2) Band Neutrophils 1 % (0-8) Platelet Estimate Adequate Platelet Morphology Normal Hypochromasia 1+ Anisocytosis 1+ Current Medications Medications (Trade) Dose Ordered Sig/Alex Route PRN Reason Start Time Stop Time Status Last Admin Dose Admin Acetaminophen (Tylenol) 500 mg Q4H PRN ORAL Mild Pain (Pain Scale 1-3) 09/15/20 23:15 10/15/20 23:14 09/23/20 16:49 Acetaminophen (Tylenol) 500 mg Q4H PRN ORAL Temp >100.5 09/15/20 23:15 10/15/20 23:14 09/24/20 16:19 Ascorbic Acid (Vitamin C) 250 mg TWICE A DAY ORAL 09/19/20 18:00 10/19/20 17:59 09/28/20 09:48 Hydralazine HCl (Apresoline) 10 mg Q2H PRN IV For High Blood Pressure 09/17/20 17:00 12/16/20 16:59 Levothyroxine Sodium (Synthroid) 50 mcg DAILY IV 09/26/20 13:00 10/26/20 12:59 09/28/20 09:48 Meropenem 1 gm/ Sodium Chloride 55 ml @ 110 mls/hr Q8HR IVPB 09/24/20 14:00 10/03/20 13:59 09/28/20 05:36 Multivitamins (Multivitamins) 1 tab DAILY ORAL 09/20/20 09:00 10/20/20 08:59 09/28/20 09:48 Pantoprazole (Protonix) 40 mg EVERY 12 HOURS IVP 09/17/20 14:15 10/17/20 14:14 09/28/20 09:48 Sodium Chloride 1,000 ml @ 50 mls/hr Q20H IV 09/26/20 11:15 10/26/20 11:14 09/28/20 03:24 Zinc Sulfate (Zinc Sulfate) 220 mg DAILY ORAL 09/20/20 09:00 09/30/20 08:59 09/28/20 09:49 Jenny Arroyo MD Sep 28, 2020 11:29
--- NOTE | 2020-09-28 11:48 | NUR ---
NURSE NOTES:Handoff given to CRISTY Chin.
[2020-09-28 11:56] VITALS: BP 140/89
--- NOTE | 2020-09-28 14:12 | NUR ---
[employer] SI: Respiratory Failure, Tach/Vent Dependent, Leukocytosis, Hypothyroidism T 97.9, HR 64, RR 16, BP 120/68 AC 12, TV 400, FiO2 30% PEEP 5, O2 sat 100% WBC 17.1, BUN 24 IS: Synthroid IV QD Meropenem IV Q 8 h Apresoline IV Protonix IVP NS IV @ 50mls/hr Step Down Status
--- NOTE | 2020-09-28 14:27 | Pulmonology Progress Note ---
Subjective ROS Limited/Unobtainable: Yes Interval Events: None new Constitutional: Denies: fever HEENT: Repors: no symptoms Respiratory: Reports: no symptoms Cardiovascular: Reports: no symptoms Gastrointestinal/Abdominal: Reports: no symptoms Genitourinary: Reports: no symptoms Allergies: Coded Allergies: No Known Allergies (Unverified , 11/22/15) All Systems: reviewed and negative except above Objective Last 24 Hour Vital Signs Date Time Temp Pulse Resp B/P (MAP) Pulse Ox O2 Delivery O2 Flow Rate FiO2 09/28/20 12:00 30 09/28/20 12:00 73 09/28/20 11:56 97.9 76 16 140/89 (106) 100 09/28/20 11:00 54 12 30 09/28/20 08:00 30 09/28/20 08:00 97.9 60 16 131/62 (85) 100 09/28/20 08:00 Mechanical Ventilator Mechanical Ventilator 09/28/20 07:46 58 09/28/20 07:10 56 14 30 09/28/20 04:00 66 09/28/20 04:00 97.9 64 18 128/68 (88) 100 09/28/20 04:00 Mechanical Ventilator Mechanical Ventilator 09/28/20 04:00 30 09/28/20 03:01 62 13 30 09/28/20 00:40 63 09/28/20 00:00 98.2 62 18 106/57 (73) 100 09/28/20 00:00 Mechanical Ventilator Mechanical Ventilator 09/28/20 00:00 30 09/27/20 23:00 66 15 30 09/27/20 20:00 30 09/27/20 20:00 63 09/27/20 20:00 Mechanical Ventilator Mechanical Ventilator 09/27/20 20:00 98.2 64 20 117/59 (78) 100 09/27/20 18:55 63 15 30 09/27/20 16:00 Mechanical Ventilator Mechanical Ventilator 09/27/20 16:00 98.2 70 23 126/74 (91) 100 09/27/20 16:00 30 09/27/20 15:30 64 09/27/20 14:50 72 17 30 Intake and Output 09/27/20 09/28/20 19:00 07:00 Intake Total 1505 ml 1703 ml Output Total 750 ml Balance 1505 ml 953 ml Free Water 400 ml 100 ml IV Total 505 ml 1003 ml Tube Feeding 600 ml 600 ml Output Urine Total 750 ml General Appearance: no acute distress HEENT: normocephalic, atraumatic, status post trach Respiratory: chest wall non-tender, lungs clear, other - coarse rhonchi Cardiovascular: normal rate, regular rhythm Abdomen: normal bowel sounds, distended Laboratory Tests 09/27/20 23:15: POC Whole Blood Glucose 95 09/28/20 03:41: White Blood Count 17.1H, Red Blood Count 3.42L, Hemoglobin 10.7L, Hematocrit 33.4L, Mean Corpuscular Volume 98, Mean Corpuscular Hemoglobin 31.1H, Mean Corpuscular Hemoglobin Concent 31.9L, Red Cell Distribution Width 16.5H, Platelet Count 214, Mean Platelet Volume 9.4, Neutrophils (%) (Auto) , Lymphocytes (%) (Auto) , Monocytes (%) (Auto) , Eosinophils (%) (Auto) , Basophils (%) (Auto) , Differential Total Cells Counted 100, Neutrophils % (Manual) 34L, Lymphocytes % (Manual) 10L, Monocytes % (Manual) 6, Eosinophils % (Manual) 49H, Basophils % (Manual) 0, Band Neutrophils 1, Platelet Estimate Adequate, Platelet Morphology Normal, Hypochromasia 1+, Anisocytosis 1+ 09/28/20 05:34: POC Whole Blood Glucose 101 09/28/20 13:46: POC Whole Blood Glucose 82 Current Medications Medications (Trade) Dose Ordered Sig/Alex Route PRN Reason Start Time Stop Time Status Last Admin Dose Admin Acetaminophen (Tylenol) 500 mg Q4H PRN ORAL Mild Pain (Pain Scale 1-3) 09/15/20 23:15 10/15/20 23:14 09/23/20 16:49 Acetaminophen (Tylenol) 500 mg Q4H PRN ORAL Temp >100.5 09/15/20 23:15 10/15/20 23:14 09/24/20 16:19 Ascorbic Acid (Vitamin C) 250 mg TWICE A DAY ORAL 09/19/20 18:00 10/19/20 17:59 09/28/20 09:48 Hydralazine HCl (Apresoline) 10 mg Q2H PRN IV For High Blood Pressure 09/17/20 17:00 12/16/20 16:59 Levothyroxine Sodium (Synthroid) 50 mcg DAILY IV 09/26/20 13:00 10/26/20 12:59 09/28/20 09:48 Meropenem 1 gm/ Sodium Chloride 55 ml @ 110 mls/hr Q8HR IVPB 09/24/20 14:00 10/03/20 13:59 09/28/20 13:38 Multivitamins (Multivitamins) 1 tab DAILY ORAL 09/20/20 09:00 10/20/20 08:59 09/28/20 09:48 Pantoprazole (Protonix) 40 mg EVERY 12 HOURS IVP 09/17/20 14:15 10/17/20 14:14 09/28/20 09:48 Sodium Chloride 1,000 ml @ 50 mls/hr Q20H IV 09/26/20 11:15 10/26/20 11:14 09/28/20 03:24 Zinc Sulfate (Zinc Sulfate) 220 mg DAILY ORAL 09/20/20 09:00 09/30/20 08:59 09/28/20 09:49 Assessment/Plan Assessment/Plan 1. Anemia, likely iron deficiency. - On IV iron. - s/p transfusion per Dr. Cazares. 2. Interstitial infiltrates, has pneumonia. - Sputum -> Serratia - Antibiotics per ID. - Continue supplemental oxygen; continue ventilator, AC mode.FiO2 30% 3. Sepsis. - Antibiotics per ID. Gm neg rods in sputum CS; confirmed Serratia 4. History of fever. - Currently afebrile. 5. Possible COVID-19 infection. - Swab COVID-19 test negative. - Repeat PCR COVID-19 also negative 6. CHF. - 2D echocardiogram ordered per Cardio. 7. UTI. - On antibiotics. Has ESBL E. Coli 8. Elevated D-dimer. 9. DVT prophylaxis. - Venous duplex ultrasound negative. - on SCD 10. Chronic Respiratory Failure; continue vent; AC mode The history of Jennifer Gao has been reviewed and management options for her have been examined and discussed by Mino Childs. I have personally examined and interviewed the patient. Mino Childs MD Sep 28, 2020 14:27
--- NOTE | 2020-09-28 15:22 | Cardiac Electrophysiology PN ---
Assessment/Plan Assessment/Plan 1. Hypertension, currently blood pressure stable. On p.r.n. Hydralazine and clonidine 2. VDRF status post tracheostomy on 30% FiO2, in sinus rhythm. COVID was negative. 3. Severe anemia, hemoglobin 7.5. S/P blood transfusion. Etiology is not clear at this time, but creatinine is within normal range. 4. Elevated BNP of more than 4000. Echo EF 65% 5. Dysphagia, status post PEG replacement 09/22/20. 6. VRE sepsis ( Amp sensitive), Gram positive bacteremia, Pseudomonas pneumonia, E coli UTI, on iv Abx per ID WBC 17K 7. Sacral Decubitus DW RN Subjective Subjective Off covid isolation. GT replaced 09/22/20 On the Vent with 30% Fio2 off restraints.In SR on iv ABx Had dilcia in 50s Objective Last 24 Hour Vital Signs Date Time Temp Pulse Resp B/P (MAP) Pulse Ox O2 Delivery O2 Flow Rate FiO2 09/28/20 12:30 Mechanical Ventilator 09/28/20 12:00 30 09/28/20 12:00 73 09/28/20 11:56 97.9 76 16 140/89 (106) 100 09/28/20 11:00 54 12 30 09/28/20 08:00 30 09/28/20 08:00 97.9 60 16 131/62 (85) 100 09/28/20 08:00 Mechanical Ventilator Mechanical Ventilator 09/28/20 07:46 58 09/28/20 07:10 56 14 30 09/28/20 04:00 66 09/28/20 04:00 97.9 64 18 128/68 (88) 100 09/28/20 04:00 Mechanical Ventilator Mechanical Ventilator 09/28/20 04:00 30 09/28/20 03:01 62 13 30 09/28/20 00:40 63 09/28/20 00:00 98.2 62 18 106/57 (73) 100 09/28/20 00:00 Mechanical Ventilator Mechanical Ventilator 09/28/20 00:00 30 09/27/20 23:00 66 15 30 09/27/20 20:00 30 09/27/20 20:00 63 09/27/20 20:00 Mechanical Ventilator Mechanical Ventilator 09/27/20 20:00 98.2 64 20 117/59 (78) 100 09/27/20 18:55 63 15 30 09/27/20 16:00 Mechanical Ventilator Mechanical Ventilator 09/27/20 16:00 98.2 70 23 126/74 (91) 100 09/27/20 16:00 30 09/27/20 15:30 64 Intake and Output 09/27/20 09/28/20 19:00 07:00 Intake Total 1505 ml 1703 ml Output Total 750 ml Balance 1505 ml 953 ml Free Water 400 ml 100 ml IV Total 505 ml 1003 ml Tube Feeding 600 ml 600 ml Output Urine Total 750 ml Laboratory Tests Test 09/27/20 23:15 09/28/20 03:41 09/28/20 05:34 09/28/20 13:46 POC Whole Blood Glucose 95 MG/DL (74-106) 101 MG/DL (74-106) 82 MG/DL (74-106) White Blood Count 17.1 K/UL (4.8-10.8) H Red Blood Count 3.42 M/UL (4.20-5.40) L Hemoglobin 10.7 G/DL (12.0-16.0) L Hematocrit 33.4 % (37.0-47.0) L Mean Corpuscular Volume 98 FL (80-99) Mean Corpuscular Hemoglobin 31.1 PG (27.0-31.0) H Mean Corpuscular Hemoglobin Concent 31.9 G/DL (32.0-36.0) L Red Cell Distribution Width 16.5 % (11.6-14.8) H Platelet Count 214 K/UL (150-450) Mean Platelet Volume 9.4 FL (6.5-10.1) Neutrophils (%) (Auto) % (45.0-75.0) Lymphocytes (%) (Auto) % (20.0-45.0) Monocytes (%) (Auto) % (1.0-10.0) Eosinophils (%) (Auto) % (0.0-3.0) Basophils (%) (Auto) % (0.0-2.0) Differential Total Cells Counted 100 Neutrophils % (Manual) 34 % (45-75) L Lymphocytes % (Manual) 10 % (20-45) L Monocytes % (Manual) 6 % (1-10) Eosinophils % (Manual) 49 % (0-3) H Basophils % (Manual) 0 % (0-2) Band Neutrophils 1 % (0-8) Platelet Estimate Adequate Platelet Morphology Normal Hypochromasia 1+ Anisocytosis 1+ Objective HEAD AND NECK: No JVD.S/P Trach LUNGS: Coarse rhonchi. CARDIOVASCULAR: Regular S1 and S2 with no gallop. ABDOMEN: Status post PEG. EXTREMITIES: 1+ pitting edema. Flex Bess MD Sep 28, 2020 15:22
[2020-09-28 15:40] VITALS: BP 118/59
--- NOTE | 2020-09-28 15:59 | Nephrology Progress Note ---
Assessment/Plan Problem List: (1) Electrolyte imbalance (2) Hypothyroidism (3) Functional quadriplegia (4) Sacral decubitus ulcer (5) Hypoalbuminemia (6) Anemia Assessment Unfortunate 75-year old female with chronic trach to vent is being treated for sepsis Has hyponatremia Marked elevated TSH indicative of severe hypothyroidism leading to hyponatremia Anemia Plan September 28: No CHEM panel drawn today. Medication list reviewed. Continue present management. September 27: Labs reviewed. Renal parameters stable. On intravenous Synthroid for severe hypothyroidism. Continue to monitor electrolytes and renal parameters Previously: IV Synthroid given Continue per consultants Monitor renal parameters and electrolytes Subjective ROS Limited/Unobtainable: Yes Objective Objective Last 24 Hour Vital Signs Date Time Temp Pulse Resp B/P (MAP) Pulse Ox O2 Delivery O2 Flow Rate FiO2 09/28/20 15:40 97.7 67 18 118/59 (78) 99 09/28/20 12:30 Mechanical Ventilator 09/28/20 12:00 30 09/28/20 12:00 73 09/28/20 11:56 97.9 76 16 140/89 (106) 100 09/28/20 11:00 54 12 30 09/28/20 08:00 30 09/28/20 08:00 97.9 60 16 131/62 (85) 100 09/28/20 08:00 Mechanical Ventilator Mechanical Ventilator 09/28/20 07:46 58 09/28/20 07:10 56 14 30 09/28/20 04:00 66 09/28/20 04:00 97.9 64 18 128/68 (88) 100 09/28/20 04:00 Mechanical Ventilator Mechanical Ventilator 09/28/20 04:00 30 09/28/20 03:01 62 13 30 09/28/20 00:40 63 09/28/20 00:00 98.2 62 18 106/57 (73) 100 09/28/20 00:00 Mechanical Ventilator Mechanical Ventilator 09/28/20 00:00 30 09/27/20 23:00 66 15 30 09/27/20 20:00 30 09/27/20 20:00 63 09/27/20 20:00 Mechanical Ventilator Mechanical Ventilator 09/27/20 20:00 98.2 64 20 117/59 (78) 100 09/27/20 18:55 63 15 30 09/27/20 16:00 Mechanical Ventilator Mechanical Ventilator 09/27/20 16:00 98.2 70 23 126/74 (91) 100 09/27/20 16:00 30 Intake and Output 09/27/20 09/28/20 19:00 07:00 Intake Total 1505 ml 1703 ml Output Total 750 ml Balance 1505 ml 953 ml Free Water 400 ml 100 ml IV Total 505 ml 1003 ml Tube Feeding 600 ml 600 ml Output Urine Total 750 ml Laboratory Tests 09/27/20 23:15: POC Whole Blood Glucose 95 09/28/20 03:41: White Blood Count 17.1H, Red Blood Count 3.42L, Hemoglobin 10.7L, Hematocrit 33.4L, Mean Corpuscular Volume 98, Mean Corpuscular Hemoglobin 31.1H, Mean Corpuscular Hemoglobin Concent 31.9L, Red Cell Distribution Width 16.5H, Platelet Count 214, Mean Platelet Volume 9.4, Neutrophils (%) (Auto) , Lymphocytes (%) (Auto) , Monocytes (%) (Auto) , Eosinophils (%) (Auto) , Basophils (%) (Auto) , Differential Total Cells Counted 100, Neutrophils % (Manual) 34L, Lymphocytes % (Manual) 10L, Monocytes % (Manual) 6, Eosinophils % (Manual) 49H, Basophils % (Manual) 0, Band Neutrophils 1, Platelet Estimate Adequate, Platelet Morphology Normal, Hypochromasia 1+, Anisocytosis 1+ 09/28/20 05:34: POC Whole Blood Glucose 101 09/28/20 13:46: POC Whole Blood Glucose 82 09/28/20 15:50: POC Whole Blood Glucose 81 Height (Feet): 5 Height (Inches): 3.00 Weight (Pounds): 145 General Appearance: no apparent distress EENT: other - Trach to vent Cardiovascular: normal rate Respiratory/Chest: decreased breath sounds Abdomen: distended Dante Chau MD Sep 28, 2020 15:58
--- NOTE | 2020-09-28 17:35 | Surgery Progress Note ---
Surgery Progress Note Subjective Additional Comments ill appearing no acute events labs noted micro reviewed Objective Last 24 Hour Vital Signs Date Time Temp Pulse Resp B/P (MAP) Pulse Ox O2 Delivery O2 Flow Rate FiO2 09/28/20 16:00 62 09/28/20 16:00 Mechanical Ventilator 09/28/20 16:00 30 09/28/20 15:40 97.7 67 18 118/59 (78) 99 09/28/20 15:35 68 19 30 09/28/20 12:30 Mechanical Ventilator 09/28/20 12:00 30 09/28/20 12:00 73 09/28/20 11:56 97.9 76 16 140/89 (106) 100 09/28/20 11:00 54 12 30 09/28/20 08:00 30 09/28/20 08:00 97.9 60 16 131/62 (85) 100 09/28/20 08:00 Mechanical Ventilator Mechanical Ventilator 09/28/20 07:46 58 09/28/20 07:10 56 14 30 09/28/20 04:00 66 09/28/20 04:00 97.9 64 18 128/68 (88) 100 09/28/20 04:00 Mechanical Ventilator Mechanical Ventilator 09/28/20 04:00 30 09/28/20 03:01 62 13 30 09/28/20 00:40 63 09/28/20 00:00 98.2 62 18 106/57 (73) 100 09/28/20 00:00 Mechanical Ventilator Mechanical Ventilator 09/28/20 00:00 30 09/27/20 23:00 66 15 30 09/27/20 20:00 30 09/27/20 20:00 63 09/27/20 20:00 Mechanical Ventilator Mechanical Ventilator 09/27/20 20:00 98.2 64 20 117/59 (78) 100 09/27/20 18:55 63 15 30 I&O Intake and Output 09/27/20 09/28/20 18:59 06:59 Intake Total 1405 ml 1803 ml Output Total 750 ml Balance 1405 ml 1053 ml Free Water 300 ml 200 ml IV Total 505 ml 1003 ml Tube Feeding 600 ml 600 ml Output Urine Total 750 ml Dressing: saturated Cardiovascular: RSR Respiratory: decreased breath sounds Abdomen: soft, non-tender, present bowel sounds Extremities: no edema, no tenderness, no cyanosis Laboratory Tests Test 09/27/20 23:15 09/28/20 03:41 09/28/20 05:34 09/28/20 13:46 POC Whole Blood Glucose 95 MG/DL (74-106) 101 MG/DL (74-106) 82 MG/DL (74-106) White Blood Count 17.1 K/UL (4.8-10.8) H Red Blood Count 3.42 M/UL (4.20-5.40) L Hemoglobin 10.7 G/DL (12.0-16.0) L Hematocrit 33.4 % (37.0-47.0) L Mean Corpuscular Volume 98 FL (80-99) Mean Corpuscular Hemoglobin 31.1 PG (27.0-31.0) H Mean Corpuscular Hemoglobin Concent 31.9 G/DL (32.0-36.0) L Red Cell Distribution Width 16.5 % (11.6-14.8) H Platelet Count 214 K/UL (150-450) Mean Platelet Volume 9.4 FL (6.5-10.1) Neutrophils (%) (Auto) % (45.0-75.0) Lymphocytes (%) (Auto) % (20.0-45.0) Monocytes (%) (Auto) % (1.0-10.0) Eosinophils (%) (Auto) % (0.0-3.0) Basophils (%) (Auto) % (0.0-2.0) Differential Total Cells Counted 100 Neutrophils % (Manual) 34 % (45-75) L Lymphocytes % (Manual) 10 % (20-45) L Monocytes % (Manual) 6 % (1-10) Eosinophils % (Manual) 49 % (0-3) H Basophils % (Manual) 0 % (0-2) Band Neutrophils 1 % (0-8) Platelet Estimate Adequate Platelet Morphology Normal Hypochromasia 1+ Anisocytosis 1+ Test 09/28/20 15:50 POC Whole Blood Glucose 81 MG/DL (74-106) Plan Problems: (1) Pneumonia (2) Functional quadriplegia (3) Person under investigation for COVID-19 (4) Chronic respiratory failure (5) Dehydration (6) Hypernatremia (7) Hypothyroidism (8) Pyelonephritis (9) Protein calorie malnutrition Assessment & Plan: DAILY ESTIMATED NEEDS: Needs based on Wound, critical care 57.5kg abw 25-30 kcals/kg 3471-7334 total kcals 1.25-2 g protein/kg 72-115 g total protein 25-30 mL/kg 6592-7751 total fluid mLs NUTRITION DIAGNOSIS: * Increased kcal/prot needs R/T wound healing as evidenced by pt w/ h/o stage 4 sacral wound, eval is pending. * Swallowing difficulty R/T dysphagia, respiratory status as evidenced by pt is Trach and PEG dep. ENTERAL NUTRITION RECOMMENDATIONS: Glucerna 1.2 @ 55ml/hr x 24 hrs to provide 1320ml, 1584 kcal, 79g pro, 1063ml free H2O * As medically able, start Glucerna 1.2 @35ml/hr for 6 hrs, advance as tolerated q4-6 to goal. * Add TYRESE in 4oz water BID via PEG for wound healing * HOB over 30 degrees/ water flush per MD ADDITIONAL RECOMMENDATIONS: * Calibrated bedscale wt for accurate CBW * Wound healing: TYRESE BID, Vit C 250mg BID F/up w/ WC eval * Monitor lytes, replete as needed * Monitor BGs w/ TF-> bed side BG checks + NISS (10) Failure to thrive (child) (11) Sacral decubitus ulcer Assessment & Plan: Pt presented on admission with Tracheostomy, GT, and multiple Pressure injuries. No erythema or evidence of skin breakdown under tracheal collar. dry dark brown skin plaque noted at R lateral chest to R flank. Full thickness stage 4 Sacral Pressure Injury with undermined borders(L)2cm x (W)2cm x (D)2cm, undermining clockwise 11-3 by 2.3cm @3o'clock.Ability to accurately assess base of wound is not fully appreciated secondary to shape of wound. (+) Epibole along edges of wound. Silver Nitrate sticks application applied to Borders. Bone is palpable when probed.Small amt brown exudate noted. No odor noted. [place] Atrophic scar periwound. Resolving Pressure Injury R Ischium. [place] epithelial noted at base of wound. Intact serous Blister noted to monica/upper L thigh. No erythema or changes in skin temp at affected site. Reabsorbing DTPI L Hallux. Base of Pressure injury is dark brown,dry without erythema,induration or fluctuance. L Heel is boggy with non-blanchable erythema. R Heel is boggy but blanchable. Tx.Plan: Cleanse Sacral wound with Saline. Loosely pack with Therahoney impregnated Kerlix.Apply Moisture Barrier Paste periwound. Cover with Optifoam drsg every 3 days and prn. Apply Moisture Barrier Paste to R Ischium. Cover with Optifoam drsg. Change every 3 days and prn. Apply Phytoplex Skin Nourishing lotion to Lateral R chest /R Flank Daily. Apply Cavilon Skin Barrier to R and L Heel. Cover each heel with Optifoam drsg.Change every 7 days and prn. Reposition at least every 2hours or as tolerated. Off-load heels with pillow. (12) Tracheostomy dependence (13) Sepsis (14) UTI (urinary tract infection) (15) Anemia (16) Dysphagia (17) Hypoalbuminemia (18) Iron deficiency (19) At high risk for aspiration (20) Parkinson disease (21) Dementia (22) Elevated CEA (23) Paroxysmal A-fib (24) Pancytopenia Holland Petty Sep 28, 2020 17:35
--- NOTE | 2020-09-28 18:36 | General Progress Note ---
Subjective Allergies: Coded Allergies: No Known Allergies (Unverified , 11/22/15) Subjective Above noted Tolerating TF Non verbal d/w residential treatment staff Objective Last 24 Hour Vital Signs Date Time Temp Pulse Resp B/P (MAP) Pulse Ox O2 Delivery O2 Flow Rate FiO2 09/28/20 16:00 62 09/28/20 16:00 Mechanical Ventilator 09/28/20 16:00 30 09/28/20 15:40 97.7 67 18 118/59 (78) 99 09/28/20 15:35 68 19 30 09/28/20 12:30 Mechanical Ventilator 09/28/20 12:00 30 09/28/20 12:00 73 09/28/20 11:56 97.9 76 16 140/89 (106) 100 09/28/20 11:00 54 12 30 09/28/20 08:00 30 09/28/20 08:00 97.9 60 16 131/62 (85) 100 09/28/20 08:00 Mechanical Ventilator Mechanical Ventilator 09/28/20 07:46 58 09/28/20 07:10 56 14 30 09/28/20 04:00 66 09/28/20 04:00 97.9 64 18 128/68 (88) 100 09/28/20 04:00 Mechanical Ventilator Mechanical Ventilator 09/28/20 04:00 30 09/28/20 03:01 62 13 30 09/28/20 00:40 63 09/28/20 00:00 98.2 62 18 106/57 (73) 100 09/28/20 00:00 Mechanical Ventilator Mechanical Ventilator 09/28/20 00:00 30 09/27/20 23:00 66 15 30 09/27/20 20:00 30 09/27/20 20:00 63 09/27/20 20:00 Mechanical Ventilator Mechanical Ventilator 09/27/20 20:00 98.2 64 20 117/59 (78) 100 09/27/20 18:55 63 15 30 Intake and Output 09/27/20 09/28/20 19:00 07:00 Intake Total 1505 ml 1703 ml Output Total 750 ml Balance 1505 ml 953 ml Free Water 400 ml 100 ml IV Total 505 ml 1003 ml Tube Feeding 600 ml 600 ml Output Urine Total 750 ml Laboratory Tests 09/27/20 23:15: POC Whole Blood Glucose 95 09/28/20 03:41: White Blood Count 17.1H, Red Blood Count 3.42L, Hemoglobin 10.7L, Hematocrit 33.4L, Mean Corpuscular Volume 98, Mean Corpuscular Hemoglobin 31.1H, Mean Corpuscular Hemoglobin Concent 31.9L, Red Cell Distribution Width 16.5H, Platelet Count 214, Mean Platelet Volume 9.4, Neutrophils (%) (Auto) , Lymphocytes (%) (Auto) , Monocytes (%) (Auto) , Eosinophils (%) (Auto) , Basophils (%) (Auto) , Differential Total Cells Counted 100, Neutrophils % (Manual) 34L, Lymphocytes % (Manual) 10L, Monocytes % (Manual) 6, Eosinophils % (Manual) 49H, Basophils % (Manual) 0, Band Neutrophils 1, Platelet Estimate Adequate, Platelet Morphology Normal, Hypochromasia 1+, Anisocytosis 1+ 09/28/20 05:34: POC Whole Blood Glucose 101 09/28/20 13:46: POC Whole Blood Glucose 82 09/28/20 15:50: POC Whole Blood Glucose 81 Height (Feet): 5 Height (Inches): 3.00 Weight (Pounds): 145 Objective debilitated Elderly woman on vent NCAT neck (+) trach coarse BS RR abd soft , flat, (+) GT no edema, (++) contractures Assessment/Plan Status: progressing Assessment/Plan: Assessment - GT site drainage/discharge - resolved - mildly elevated alk phos - possibly vitamin D related - OBS - Resp failure, s/p Trach - s/p PEG for dysphagia, - Parkinsons - Schizophrenia - h/o decub ulcers - Severe anemia Recommendations - check vitamin D - GT care - Elevate HOB - monitor labs Tana Romano MD Sep 28, 2020 18:36
--- NOTE | 2020-09-28 19:08 | NUR ---
HAND-OFF: Report given to CRISTY Bass Patient on ventilator,no distress,G tube feeding,head 30 degrees,aspitation precaution,rectal tube,incontinent-with external female device
--- NOTE | 2020-09-28 19:48 | NUR ---
NURSE NOTES: RECEIVED PATIENT FROM CRISTY GARCÍA.WITH TRACH TO VENT @ TV 400 AC 12 FIO2 30% PEEP 5,GT FEEDING GLUCERNA @50 ML/HR KEPT HOB AT [address] WITH GOOD URINE OUTPUT.ORAL CARE RENDERED.
[2020-09-28 20:00] VITALS: BP 104/43
--- NOTE | 2020-09-28 22:01 | General Progress Note ---
Subjective ROS Limited/Unobtainable: Yes Allergies: Coded Allergies: No Known Allergies (Unverified , 11/22/15) Objective Last 24 Hour Vital Signs Date Time Temp Pulse Resp B/P (MAP) Pulse Ox O2 Delivery O2 Flow Rate FiO2 09/28/20 19:30 60 15 30 09/28/20 16:00 62 09/28/20 16:00 Mechanical Ventilator 09/28/20 16:00 30 09/28/20 15:40 97.7 67 18 118/59 (78) 99 09/28/20 15:35 68 19 30 09/28/20 12:30 Mechanical Ventilator 09/28/20 12:00 30 09/28/20 12:00 73 09/28/20 11:56 97.9 76 16 140/89 (106) 100 09/28/20 11:00 54 12 30 09/28/20 08:00 30 09/28/20 08:00 97.9 60 16 131/62 (85) 100 09/28/20 08:00 Mechanical Ventilator Mechanical Ventilator 09/28/20 07:46 58 09/28/20 07:10 56 14 30 09/28/20 04:00 66 09/28/20 04:00 97.9 64 18 128/68 (88) 100 09/28/20 04:00 Mechanical Ventilator Mechanical Ventilator 09/28/20 04:00 30 09/28/20 03:01 62 13 30 09/28/20 00:40 63 09/28/20 00:00 98.2 62 18 106/57 (73) 100 09/28/20 00:00 Mechanical Ventilator Mechanical Ventilator 09/28/20 00:00 30 09/27/20 23:00 66 15 30 Intake and Output 09/27/20 09/28/20 19:00 07:00 Intake Total 1505 ml 1703 ml Output Total 750 ml Balance 1505 ml 953 ml Free Water 400 ml 100 ml IV Total 505 ml 1003 ml Tube Feeding 600 ml 600 ml Output Urine Total 750 ml Laboratory Tests 09/27/20 23:15: POC Whole Blood Glucose 95 09/28/20 03:41: White Blood Count 17.1H, Red Blood Count 3.42L, Hemoglobin 10.7L, Hematocrit 33.4L, Mean Corpuscular Volume 98, Mean Corpuscular Hemoglobin 31.1H, Mean Corpuscular Hemoglobin Concent 31.9L, Red Cell Distribution Width 16.5H, Platelet Count 214, Mean Platelet Volume 9.4, Neutrophils (%) (Auto) , Ly mphocytes (%) (Auto) , Monocytes (%) (Auto) , Eosinophils (%) (Auto) , Basophils (%) (Auto) , Differential Total Cells Counted 100, Neutrophils % (Manual) 34L, Lymphocytes % (Manual) 10L, Monocytes % (Manual) 6, Eosinophils % (Manual) 49H, Basophils % (Manual) 0, Band Neutrophils 1, Platelet Estimate Adequate, Platelet Morphology Normal, Hypochromasia 1+, Anisocytosis 1+ 09/28/20 05:34: POC Whole Blood Glucose 101 09/28/20 13:46: POC Whole Blood Glucose 82 09/28/20 15:50: POC Whole Blood Glucose 81 Height (Feet): 5 Height (Inches): 3.00 Weight (Pounds): 145 Assessment/Plan Problem List: (1) Hypothyroidism ICD Codes: E03.9 - Hypothyroidism, unspecified SNOMED: 79475892 (2) Chronic respiratory failure ICD Codes: J96.10 - Chronic respiratory failure, unspecified whether with hypoxia or hypercapnia SNOMED: 34659480 (3) Functional quadriplegia ICD Codes: R53.2 - Functional quadriplegia SNOMED: 388343923452205 (4) Protein calorie malnutrition ICD Codes: E46 - Unspecified protein-calorie malnutrition SNOMED: 951308847 (5) Failure to thrive (child) ICD Codes: R62.51 - Failure to thrive (child) SNOMED: 853899055 (6) Sacral decubitus ulcer ICD Codes: L89.159 - Pressure ulcer of sacral region, unspecified stage SNOMED: 095276472 (7) Tracheostomy dependence ICD Codes: Z93.0 - Tracheostomy status SNOMED: 612133902 (8) Sepsis ICD Codes: A41.9 - Sepsis, unspecified organism SNOMED: 33327751 (9) Anemia ICD Codes: D64.9 - Anemia, unspecified SNOMED: 616697943 Qualifiers: Qualified Codes: D64.9 - Anemia, unspecified (10) UTI (urinary tract infection) ICD Codes: N39.0 - Urinary tract infection, site not specified SNOMED: 80076962 Qualifiers: Qualified Codes: N39.0 - Urinary tract infection, site not specified Status: progressing Assessment/Plan: trach and peg pna sepsis quadraplegia no change reviewed chart malnutrtion Sandeep Oneil MD Sep 28, 2020 22:01
[2020-09-29] VITALS: BP 110/50
[2020-09-29 04:00] VITALS: BP 117/59
[2020-09-29 05:00] LABS: HEMATOCRIT 33.3 % (37.0-47.0); HEMOGLOBIN 10.5 G/DL (12.0-16.0); MEAN CORPUSCULAR VOLUME 102 FL (80-99); PLATELET COUNT 166 K/UL (150-450); RED BLOOD COUNT 3.28 M/UL (4.20-5.40); RED CELL DISTRIBUTION WIDTH 16.6 % (11.6-14.8); WHITE BLOOD COUNT 18.6 K/UL (4.8-10.8)
[2020-09-29 05:21] LABS: ALANINE AMINOTRANSFERASE 18 U/L (12-78); ALBUMIN 2.4 G/DL (3.4-5.0); ALBUMIN/GLOBULIN RATIO 0.5 (1.0-2.7); ALKALINE PHOSPHATASE 358 U/L (46-116); ANION GAP 1 mmol/L (5-15); ASPARTATE AMINO TRANSFERASE 25 U/L (15-37); BILIRUBIN,TOTAL 0.5 MG/DL (0.2-1.0); BLOOD UREA NITROGEN 24 mg/dL (7-18); CALCIUM 9.5 MG/DL (8.5-10.1); CARBON DIOXIDE 30 MMOL/L (21-32); CHLORIDE 108 MMOL/L (98-107); CREATININE 0.5 MG/DL (0.55-1.30); POTASSIUM 4.9 MMOL/L (3.5-5.1); SODIUM 139 MMOL/L (136-145)
--- NOTE | 2020-09-29 06:23 | Hematology/Onc Progress Note ---
Assessment/Plan Assessment/Plan LABORATORY DATA: 04/2020 white count 4.7, platelets 140 otherwise CBC is normal. BMP shows chloride 110, creatinine 0.4. Albumin 2.9, otherwise normal. INR 1.0, PTT 27. Urinalysis shows 2+ leukocyte esterase. 09/16 wbc 10, hgb 7.5, plt 126 Imaging 07/01/20 cxr Bilateral patchy airspace opacities. Differential includes multifocal pneumonia and pulmonary edema. 09/16/20 cxr b/l infiltrates noted Assessment and Recommendations # Anemia of iron deficiency, has been persistent for months, now improved, as ferritin better --> Anemia workup has been ordered--> improved --> No evidence of hemolysis is noted, peripheral smear has been reviewed. --> Hgb goal >7. Transfuse prn. --> Iron iv not needed any further --> Medications have been reviewed --> gb 9-->8.4->>>>7.5-->9.4-->9->10-->9.4->10.1-->10.5 # Right breast calcifications --> does not have a breast mass on exam --> f/u as outpatient with mammo as needed --> do not do a us breast here # Thrombocytopenia - potential causes multifactorial, evaluate liver and viral etiologies to begin, also could be related to underlying medications, no wimproved --> Hep panel and HIV prior negative -> plt 183->203->199-->125->130 --> abx # Leukocytosis with Pna --> antibiotics per id --> wbc 16->10.8-->16 --> smear is noted # Sepsis --> antibiotics per Infectious Disease. --> ABX vanc/zosyn->meropenem # Dehydration. --> PT and Dietary evaluation. # Hypertension --> Blood pressure control. # Dvt ppx scds The timing of this note does not necessarily reflect the time of the patient was seen Greatly appreciate consultation! Subjective Allergies: Coded Allergies: No Known Allergies (Unverified , 11/22/15) All Systems: reviewed and negative except above Subjective 09/18 labs are noted, no bleeding, seen by pulm, cbc is pending 09/19 [employer] is running, meds reviewed, labs noted 09/20 labs reviewed, meds noted, cbc is pending, vanc was added recently 09/21 labs reviewed, meds noetd, hgb 10, bactrim, yovani, vanc 09/22 is satting well on the vent, abx, labs still pending for am 09/23 remains on vent, not in acute distress, no bleeding, no night sweats 09/25 labs pending, on trach, vent gtube, meds reviewed, feeds ongoing 09/26 obtunded, labs pending, trach/vent, no bleeding, meds noted 09/27 pending cbc, is s/p peg feeds, hany/trach 09/28 obtunded, no events, s/p peg, vent/trach, cleaned per Rn 09/29 nv, t/v, no night sweats, meds noted, no bleeding Objective Objective Current Medications Medications (Trade) Dose Ordered Sig/Alex Route PRN Reason Start Time Stop Time Status Last Admin Dose Admin Acetaminophen (Tylenol) 500 mg Q4H PRN ORAL Mild Pain (Pain Scale 1-3) 09/15/20 23:15 10/15/20 23:14 09/23/20 16:49 Acetaminophen (Tylenol) 500 mg Q4H PRN ORAL Temp >100.5 09/15/20 23:15 10/15/20 23:14 09/24/20 16:19 Ascorbic Acid (Vitamin C) 250 mg TWICE A DAY ORAL 09/19/20 18:00 10/19/20 17:59 09/28/20 17:16 Hydralazine HCl (Apresoline) 10 mg Q2H PRN IV For High Blood Pressure 09/17/20 17:00 12/16/20 16:59 Levothyroxine Sodium (Synthroid) 50 mcg DAILY IV 09/26/20 13:00 10/26/20 12:59 09/28/20 09:48 Meropenem 1 gm/ Sodium Chloride 55 ml @ 110 mls/hr Q8HR IVPB 09/24/20 14:00 10/03/20 13:59 09/28/20 21:24 Multivitamins (Multivitamins) 1 tab DAILY ORAL 09/20/20 09:00 10/20/20 08:59 09/28/20 09:48 Pantoprazole (Protonix) 40 mg EVERY 12 HOURS IVP 09/17/20 14:15 10/17/20 14:14 09/28/20 21:23 Sodium Chloride 1,000 ml @ 50 mls/hr Q20H IV 09/26/20 11:15 10/26/20 11:14 09/29/20 00:14 Zinc Sulfate (Zinc Sulfate) 220 mg DAILY ORAL 09/20/20 09:00 09/30/20 08:59 09/28/20 09:49 Last 24 Hour Vital Signs Date Time Temp Pulse Resp B/P (MAP) Pulse Ox O2 Delivery O2 Flow Rate FiO2 09/29/20 04:00 97.7 64 16 117/59 (78) 100 09/29/20 04:00 30 09/29/20 04:00 Mechanical Ventilator Mechanical Ventilator 09/29/20 04:00 66 09/29/20 01:02 66 17 30 09/29/20 00:04 Mechanical Ventilator Mechanical Ventilator 09/29/20 00:00 69 09/29/20 00:00 98.1 64 17 110/50 (70) 100 09/28/20 20:00 61 09/28/20 20:00 98.0 75 18 104/43 (63) 99 09/28/20 20:00 Mechanical Ventilator Mechanical Ventilator 09/28/20 20:00 30 09/28/20 19:30 60 15 30 09/28/20 16:00 62 09/28/20 16:00 Mechanical Ventilator 09/28/20 16:00 30 09/28/20 15:40 97.7 67 18 118/59 (78) 99 09/28/20 15:35 68 19 30 09/28/20 12:30 Mechanical Ventilator 09/28/20 12:00 30 09/28/20 12:00 73 09/28/20 11:56 97.9 76 16 140/89 (106) 100 09/28/20 11:00 54 12 30 09/28/20 08:00 30 09/28/20 08:00 97.9 60 16 131/62 (85) 100 09/28/20 08:00 Mechanical Ventilator Mechanical Ventilator 09/28/20 07:46 58 09/28/20 07:10 56 14 30 09/28/20 04:00 66 09/28/20 04:00 97.9 64 18 128/68 (88) 100 09/28/20 04:00 Mechanical Ventilator Mechanical Ventilator 09/28/20 04:00 30 09/28/20 03:01 62 13 30 09/28/20 00:40 63 09/28/20 00:00 98.2 62 18 106/57 (73) 100 09/28/20 00:00 Mechanical Ventilator Mechanical Ventilator 09/28/20 00:00 30 09/27/20 23:00 66 15 30 09/27/20 20:00 30 09/27/20 20:00 63 09/27/20 20:00 Mechanical Ventilator Mechanical Ventilator 09/27/20 20:00 98.2 64 20 117/59 (78) 100 09/27/20 18:55 63 15 30 09/27/20 16:00 Mechanical Ventilator Mechanical Ventilator 09/27/20 16:00 98.2 70 23 126/74 (91) 100 09/27/20 16:00 30 09/27/20 15:30 64 09/27/20 14:50 72 17 30 09/27/20 12:00 Mechanical Ventilator Mechanical Ventilator 09/27/20 12:00 30 09/27/20 12:00 97.1 73 22 100/69 (79) 100 09/27/20 11:29 69 09/27/20 10:50 77 23 30 09/27/20 09:00 Mechanical Ventilator Mechanical Ventilator 09/27/20 08:00 98.1 69 21 110/70 (83) 100 09/27/20 08:00 30 09/27/20 07:59 66 09/27/20 06:45 73 18 30 Intake and Output 09/28/20 09/29/20 19:00 07:00 Intake Total 1370 ml 1020 ml Output Total 220 ml Balance 1150 ml 1020 ml Free Water 160 ml 120 ml IV Total 660 ml 500 ml Tube Feeding 550 ml 400 ml Output Urine Total 200 ml Stool Total 20 ml Labs Test 09/26/20 11:56 09/26/20 18:24 09/27/20 00:19 09/27/20 04:30 POC Whole Blood Glucose 101 MG/DL (74-106) 107 MG/DL (74-106) 99 MG/DL (74-106) Sodium Level 139 MMOL/L (136-145) Potassium Level 4.9 MMOL/L (3.5-5.1) Chloride Level 106 MMOL/L (98-107) Carbon Dioxide Level 29 MMOL/L (21-32) Anion Gap 4 mmol/L (5-15) Blood Urea Nitrogen 24 mg/dL (7-18) Creatinine 0.5 MG/DL (0.55-1.30) Estimat Glomerular Filtration Rate > 60 mL/min (>60) Glucose Level 110 MG/DL (74-106) Uric Acid 3.7 MG/DL (2.6-7.2) Calcium Level 9.9 MG/DL (8.5-10.1) Phosphorus Level 2.4 MG/DL (2.5-4.9) Magnesium Level 2.0 MG/DL (1.8-2.4) Total Bilirubin 0.4 MG/DL (0.2-1.0) Aspartate Amino Transf (AST/SGOT) 20 U/L (15-37) Alanine Aminotransferase (ALT/SGPT) 14 U/L (12-78) Alkaline Phosphatase 334 U/L (46-116) Total Protein 8.0 G/DL (6.4-8.2) Albumin 2.6 G/DL (3.4-5.0) Globulin 5.4 g/dL Albumin/Globulin Ratio 0.5 (1.0-2.7) Thyroid Stimulating Hormone (TSH) 76.071 uiU/mL (0.358-3.740) Free Triiodothyronine 1.2 pg/mL (2.3-4.2) Test 09/27/20 05:04 09/27/20 23:15 09/28/20 03:41 09/28/20 05:34 POC Whole Blood Glucose 101 MG/DL (74-106) 95 MG/DL (74-106) 101 MG/DL (74-106) White Blood Count 17.1 K/UL (4.8-10.8) Red Blood Count 3.42 M/UL (4.20-5.40) Hemoglobin 10.7 G/DL (12.0-16.0) Hematocrit 33.4 % (37.0-47.0) Mean Corpuscular Volume 98 FL (80-99) Mean Corpuscular Hemoglobin 31.1 PG (27.0-31.0) Mean Corpuscular Hemoglobin Concent 31.9 G/DL (32.0-36.0) Red Cell Distribution Width 16.5 % (11.6-14.8) Platelet Count 214 K/UL (150-450) Mean Platelet Volume 9.4 FL (6.5-10.1) Neutrophils (%) (Auto) % (45.0-75.0) Lymphocytes (%) (Auto) % (20.0-45.0) Monocytes (%) (Auto) % (1.0-10.0) Eosinophils (%) (Auto) % (0.0-3.0) Basophils (%) (Auto) % (0.0-2.0) Differential Total Cells Counted 100 Neutrophils % (Manual) 34 % (45-75) Lymphocytes % (Manual) 10 % (20-45) Monocytes % (Manual) 6 % (1-10) Eosinophils % (Manual) 49 % (0-3) Basophils % (Manual) 0 % (0-2) Band Neutrophils 1 % (0-8) Platelet Estimate Adequate Platelet Morphology Normal Hypochromasia 1+ Anisocytosis 1+ Test 09/28/20 13:46 09/28/20 15:50 09/28/20 23:41 09/29/20 03:35 POC Whole Blood Glucose 82 MG/DL (74-106) 81 MG/DL (74-106) 91 MG/DL (74-106) White Blood Count 18.6 K/UL (4.8-10.8) Red Blood Count 3.28 M/UL (4.20-5.40) Hemoglobin 10.5 G/DL (12.0-16.0) Hematocrit 33.3 % (37.0-47.0) Mean Corpuscular Volume 102 FL (80-99) Mean Corpuscular Hemoglobin 31.9 PG (27.0-31.0) Mean Corpuscular Hemoglobin Concent 31.4 G/DL (32.0-36.0) Red Cell Distribution Width 16.6 % (11.6-14.8) Platelet Count 166 K/UL (150-450) Mean Platelet Volume 7.7 FL (6.5-10.1) Neutrophils (%) (Auto) % (45.0-75.0) Lymphocytes (%) (Auto) % (20.0-45.0) Monocytes (%) (Auto) % (1.0-10.0) Eosinophils (%) (Auto) % (0.0-3.0) Basophils (%) (Auto) % (0.0-2.0) Sodium Level 139 MMOL/L (136-145) Potassium Level 4.9 MMOL/L (3.5-5.1) Chloride Level 108 MMOL/L (98-107) Carbon Dioxide Level 30 MMOL/L (21-32) Anion Gap 1 mmol/L (5-15) Blood Urea Nitrogen 24 mg/dL (7-18) Creatinine 0.5 MG/DL (0.55-1.30) Estimat Glomerular Filtration Rate > 60 mL/min (>60) Glucose Level 102 MG/DL (74-106) Calcium Level 9.5 MG/DL (8.5-10.1) Phosphorus Level 2.0 MG/DL (2.5-4.9) Magnesium Level 2.1 MG/DL (1.8-2.4) Total Bilirubin 0.5 MG/DL (0.2-1.0) Aspartate Amino Transf (AST/SGOT) 25 U/L (15-37) Alanine Aminotransferase (ALT/SGPT) 18 U/L (12-78) Alkaline Phosphatase 358 U/L (46-116) Total Protein 7.4 G/DL (6.4-8.2) Albumin 2.4 G/DL (3.4-5.0) Globulin 5.0 g/dL Albumin/Globulin Ratio 0.5 (1.0-2.7) Test 09/29/20 05:27 POC Whole Blood Glucose 92 MG/DL (74-106) Height (Feet): 5 Height (Inches): 3.00 Weight (Pounds): 145 Objective PHYSICAL EXAMINATION: GENERAL: obtunded, oriented x1, CARDIOVASCULAR: No murmur. LUNGS: Poor air exchange.+vent/trach ABDOMEN: Bowel sounds distant.++peg EXTREMITIES: No cyanosis, clubbing, or edema NEUROLOGIC: Neck, weakness as well leaning forward.bedbound++ Alan Cazares MD Sep 29, 2020 06:23
[2020-09-29] MEDS: Meropenem 1 GM in NS 55 ML IVPB SCH ×3 (07:02→21:58)
--- NOTE | 2020-09-29 07:25 | NUR ---
NURSE NOTES:Handoff received from CRISTY Bass. Patient received resting in bed, patient opens spontaneously but unable to follow commands. patient is on trach to vent with settings of AC12, TV400, FI02 30% and PEEP of 5 saturating at 100% with no signs of distress noted. Patient is placed on contact isolation for ESBL and VRE. G tube feeding put on hold for Synthroid at 0900, G tube flushed and patent. Patient is on rough carpenter, has purewick connected to suction and rectal tube patient and draining to gravity. IV sites are clean dry and intact, with L FA running NS at 50ML/HR. Skin issues noted. Patient is also on aspiration and fall precautions with bed in the low and locked position and call light on bed next to patient. Will follow plan of care.
--- NOTE | 2020-09-29 07:31 | NUR ---
NURSE HAND-OFF REPORT: Important Events on Shift:none Patient Status:stable Dietglucerna 1.2 at 50 ml/hr Pending Orders: Pending Results/Labs:cbc,cmp,mg, phos Pending MD notification;none Latest Vital Signs: Temperature 97.7 , Pulse 66 , B/P 117 /59 , Respiratory Rate 16 , O2 SAT 100 , Mechanical Ventilator, O2 Flow Rate 50.0 . Vital Sign Comment: stable EKG Rhythm: Sinus Rhythm Rhythm change?: N MD Notified?: - MD Response: Latest [place] Fall Score: 50 Fall Risk: High Risk Safety Measures: Call light Within Reach, Bed Alarm Zone 2, Side Rails Side Rails x3, Bed position Low and Locked. Fall Precautions: Yellow Socks Yellow Gown Door Sign Report given to CRISTY Castelan.
[2020-09-29 08:00] VITALS: BP 128/67
[2020-09-29] MEDS: Ascorbic Acid 500mg tab ORAL SCH ×2 (09:21→17:06)
[2020-09-29] MEDS: Zinc Sulfate 220mg ORAL SCH (09:21)
[2020-09-29] MEDS: Pantoprazole Inj IVP SCH ×2 (09:21→20:22)
--- NOTE | 2020-09-29 10:25 | NUR ---
Survey TechnicianPrecipitate Washer SI: Respiratory Failure, Trach/Vent Dependent, Leukocytosis, Hypothyroidism T-98.4, HR 75, RR 18, BP 128/67 AC 12, TV 400, FiO2 30%, PEEP 5, O2 sat 100% WBC 18.6, BUN 24, Alk Phos 358 IS: Synthroid IV Meropenem IV q 8 Hrs Apresoline IV Protonix IVP NS IV @ 50 ml/hr Step Down Status
--- NOTE | 2020-09-29 11:15 | NUR ---
RD ASSESSMENT & RECOMMENDATIONS SEE CARE ACTIVITY FOR COMPLETE ASSESSMENT DAILY ESTIMATED NEEDS: Needs based on Wound, critical care 57.5kg abw 25-30 kcals/kg 3266-4627 total kcals 1.25-2 g protein/kg 72-115 g total protein 25-30 mL/kg 2364-7138 total fluid mLs NUTRITION DIAGNOSIS: * Increased kcal/prot needs R/T wound healing as evidenced by pt w/ h/o stage 4 sacral wound, eval is pending. * Swallowing difficulty R/T dysphagia, respiratory status as evidenced by pt is Trach and PEG dep. CURRENT TF: Glucerna 1.2 goal of 50ml/hr x22 ENTERAL NUTRITION RECOMMENDATIONS: Glucerna 1.2 @ 60ml/hr x 22 hrs to provide 1320ml, 1584 kcal, 79g pro, 1063ml free H2O * Increase goal by 10ml/hr to goal of 60ml/hr x24 hrs to better meet est needs. * Add TYRESE in 4oz water BID via PEG for wound healing * HOB over 30 degrees/ water flush per MD TPN Comment: ADDITIONAL RECOMMENDATIONS: * Calibrated bedscale wt for accurate CBW * Wound healing: TYRESE BID via GT continue Vit C + ZnSO4 * Monitor lytes, replete as needed (Low phos) * Monitor BGs w/ TF-> bed side BG checks + NISS * Add probiotics: +diarrhea
[2020-09-29 12:00] VITALS: BP 110/53
--- NOTE | 2020-09-29 13:22 | Nephrology Progress Note ---
Assessment/Plan Problem List: (1) Electrolyte imbalance (2) Hypothyroidism (3) Functional quadriplegia (4) Sacral decubitus ulcer (5) Hypoalbuminemia (6) Anemia Assessment Unfortunate 75-year old female with chronic trach to vent is being treated for sepsis Has hyponatremia Marked elevated TSH indicative of severe hypothyroidism leading to hyponatremia Anemia Plan September 29: Labs reviewed. Abnormal electrolytes and chemistries addressed. Continue per consultants. September 28: No CHEM panel drawn today. Medication list reviewed. Continue present management. September 27: Labs reviewed. Renal parameters stable. On intravenous Synthroid for severe hypothyroidism. Continue to monitor electrolytes and renal parameters Previously: IV Synthroid given Continue per consultants Monitor renal parameters and electrolytes Subjective ROS Limited/Unobtainable: Yes Objective Objective Last 24 Hour Vital Signs Date Time Temp Pulse Resp B/P (MAP) Pulse Ox O2 Delivery O2 Flow Rate FiO2 09/29/20 12:00 98.2 72 18 110/53 (72) 100 09/29/20 12:00 64 09/29/20 11:57 Mechanical Ventilator 09/29/20 11:56 30 09/29/20 08:00 Mechanical Ventilator 09/29/20 08:00 30 09/29/20 08:00 65 09/29/20 08:00 98.4 75 18 128/67 (87) 100 09/29/20 06:40 67 17 30 09/29/20 04:00 97.7 64 16 117/59 (78) 100 09/29/20 04:00 30 09/29/20 04:00 Mechanical Ventilator Mechanical Ventilator 09/29/20 04:00 66 09/29/20 01:02 66 17 30 09/29/20 00:04 Mechanical Ventilator Mechanical Ventilator 09/29/20 00:00 69 09/29/20 00:00 98.1 64 17 110/50 (70) 100 09/28/20 20:00 61 09/28/20 20:00 98.0 75 18 104/43 (63) 99 09/28/20 20:00 Mechanical Ventilator Mechanical Ventilator 09/28/20 20:00 30 09/28/20 19:30 60 15 30 09/28/20 16:00 62 09/28/20 16:00 Mechanical Ventilator 09/28/20 16:00 30 09/28/20 15:40 97.7 67 18 118/59 (78) 99 09/28/20 15:35 68 19 30 Intake and Output 09/28/20 09/29/20 19:00 07:00 Intake Total 1370 ml 1320 ml Output Total 220 ml 650 ml Balance 1150 ml 670 ml Free Water 160 ml 120 ml IV Total 660 ml 600 ml Tube Feeding 550 ml 600 ml Output Urine Total 200 ml 600 ml Stool Total 20 ml 50 ml Laboratory Tests 09/28/20 13:46: POC Whole Blood Glucose 82 09/28/20 15:50: POC Whole Blood Glucose 81 09/28/20 23:41: POC Whole Blood Glucose 91 09/29/20 03:35: White Blood Count 18.6H, Red Blood Count 3.28L, Hemoglobin 10.5L, Hematocrit 33.3L, Mean Corpuscular Volume 102H, Mean Corpuscular Hemoglobin 31.9H, Mean Corpuscular Hemoglobin Concent 31.4L, Red Cell Distribution Width 16.6H, Platelet Count 166, Mean Platelet Volume 7.7, Neutrophils (%) (Auto) , Lymphocytes (%) (Auto) , Monocytes (%) (Auto) , Eosinophils (%) (Auto) , Basoph ils (%) (Auto) , Differential Total Cells Counted 100, Neutrophils % (Manual) 42L, Lymphocytes % (Manual) 12L, Monocytes % (Manual) 6, Eosinophils % (Manual) 40H, Basophils % (Manual) 0, Band Neutrophils 0, Platelet Estimate Adequate, Platelet Morphology Normal, Hypochromasia 1+, Anisocytosis 1+, Macrocytosis 1+, Sodium Level 139, Potassium Level 4.9, Chloride Level 108H, Carbon Dioxide Level 30, Anion Gap 1L, Blood Urea Nitrogen 24H, Creatinine 0.5L, Estimat Glomerular Filtration Rate > 60, Glucose Level 102, Calcium Level 9.5, Phosphorus Level 2.0L, Magnesium Level 2.1, Total Bilirubin 0.5, Aspartate Amino Transf (AST/SGOT) 25, Alanine Aminotransferase (ALT/SGPT) 18, Alkaline Phosphatase 358H , Total Protein 7.4, Albumin 2.4L, Globulin 5.0, Albumin/Globulin Ratio 0.5L 09/29/20 05:27: POC Whole Blood Glucose 92 Height (Feet): 5 Height (Inches): 3.00 Weight (Pounds): 145 General Appearance: no apparent distress EENT: other - Trach to vent Cardiovascular: normal rate Respiratory/Chest: decreased breath sounds Abdomen: distended Dante Chau MD Sep 29, 2020 13:22
--- NOTE | 2020-09-29 13:41 | Pulmonology Progress Note ---
Subjective ROS Limited/Unobtainable: Yes Interval Events: None new Constitutional: Denies: fever HEENT: Repors: no symptoms Respiratory: Reports: no symptoms Cardiovascular: Reports: no symptoms Gastrointestinal/Abdominal: Reports: no symptoms Genitourinary: Reports: no symptoms Allergies: Coded Allergies: No Known Allergies (Unverified , 11/22/15) All Systems: reviewed and negative except above Objective Last 24 Hour Vital Signs Date Time Temp Pulse Resp B/P (MAP) Pulse Ox O2 Delivery O2 Flow Rate FiO2 09/29/20 12:00 98.2 72 18 110/53 (72) 100 09/29/20 12:00 64 09/29/20 11:57 Mechanical Ventilator 09/29/20 11:56 30 09/29/20 08:00 Mechanical Ventilator 09/29/20 08:00 30 09/29/20 08:00 65 09/29/20 08:00 98.4 75 18 128/67 (87) 100 09/29/20 06:40 67 17 30 09/29/20 04:00 97.7 64 16 117/59 (78) 100 09/29/20 04:00 30 09/29/20 04:00 Mechanical Ventilator Mechanical Ventilator 09/29/20 04:00 66 09/29/20 01:02 66 17 30 09/29/20 00:04 Mechanical Ventilator Mechanical Ventilator 09/29/20 00:00 69 09/29/20 00:00 98.1 64 17 110/50 (70) 100 09/28/20 20:00 61 09/28/20 20:00 98.0 75 18 104/43 (63) 99 09/28/20 20:00 Mechanical Ventilator Mechanical Ventilator 09/28/20 20:00 30 09/28/20 19:30 60 15 30 09/28/20 16:00 62 09/28/20 16:00 Mechanical Ventilator 09/28/20 16:00 30 09/28/20 15:40 97.7 67 18 118/59 (78) 99 09/28/20 15:35 68 19 30 Intake and Output 09/28/20 09/29/20 19:00 07:00 Intake Total 1370 ml 1320 ml Output Total 220 ml 650 ml Balance 1150 ml 670 ml Free Water 160 ml 120 ml IV Total 660 ml 600 ml Tube Feeding 550 ml 600 ml Output Urine Total 200 ml 600 ml Stool Total 20 ml 50 ml General Appearance: no acute distress HEENT: normocephalic, atraumatic, status post trach Respiratory: chest wall non-tender, lungs clear, other - coarse rhonchi Cardiovascular: normal rate, regular rhythm Abdomen: normal bowel sounds, distended Laboratory Tests 09/28/20 13:46: POC Whole Blood Glucose 82 09/28/20 15:50: POC Whole Blood Glucose 81 09/28/20 23:41: POC Whole Blood Glucose 91 09/29/20 03:35: White Blood Count 18.6H, Red Blood Count 3.28L, Hemoglobin 10.5L, Hematocrit 33.3L, Mean Corpuscular Volume 102H, Mean Corpuscular Hemoglobin 31.9H, Mean Corpuscular Hemoglobin Concent 31.4L, Red Cell Distribution Width 16.6H, Platelet Count 166, Mean Platelet Volume 7.7, Neutrophils (%) (Auto) , Lymphocytes (%) (Auto) , Monocytes (%) (Auto) , Eosinophils (%) (Auto) , Basophils (%) (Auto) , Differential Total Cells Counted 100, Neutrophils % (Manual) 42L, Lymphocytes % (Manual) 12L, Monocytes % (Manual) 6, Eosinophils % (Manual) 40H, Basophils % (Manual) 0, Band Neutrophils 0, Platelet Estimate Adequate, Platelet Morphology Normal, Hypochromasia 1+, Anisocytosis 1+, Macrocytosis 1+, Sodium Level 139, Potassium Level 4.9, Chloride Level 108H, Carbon Dioxide Level 30, Anion Gap 1L, Blood Urea Nitrogen 24H, Creatinine 0.5L, Estimat Glomerular Filtration Rate > 60, Glucose Level 102, Calcium Level 9.5, Phosphorus Level 2.0L, Magnesium Level 2.1, Total Bilirubin 0.5, Aspartate Amino Transf (AST/SGOT) 25, Alanine Aminotransferase (ALT/SGPT) 18, Alkaline Phosphatase 358H, Total Protein 7.4, Albumin 2.4L, Globulin 5.0, Albumin/Globulin Ratio 0.5L 09/29/20 05:27: POC Whole Blood Glucose 92 Current Medications Medications (Trade) Dose Ordered Sig/Alex Route PRN Reason Start Time Stop Time Status Last Admin Dose Admin Acetaminophen (Tylenol) 500 mg Q4H PRN ORAL Mild Pain (Pain Scale 1-3) 09/15/20 23:15 10/15/20 23:14 12/25/20 16:49 Acetaminophen (Tylenol) 500 mg Q4H PRN ORAL Temp >100.5 09/15/20 23:15 10/15/20 23:14 09/24/20 16:19 Ascorbic Acid (Vitamin C) 250 mg TWICE A DAY ORAL 09/19/20 18:00 10/19/20 17:59 09/29/20 09:21 Hydralazine HCl (Apresoline) 10 mg Q2H PRN IV For High Blood Pressure 09/17/20 17:00 12/16/20 16:59 Levothyroxine Sodium (Synthroid) 50 mcg DAILY IV 09/26/20 13:00 10/26/20 12:59 09/29/20 09:21 Meropenem 1 gm/ Sodium Chloride 55 ml @ 110 mls/hr Q12HR IVPB 09/30/20 09:00 10/03/20 23:59 Meropenem 1 gm/ Sodium Chloride 55 ml @ 110 mls/hr Q8HR IVPB 09/24/20 14:00 09/29/20 23:00 09/29/20 13:15 Multivitamins (Multivitamins) 1 tab DAILY ORAL 09/20/20 09:00 10/20/20 08:59 09/29/20 09:21 Pantoprazole (Protonix) 40 mg EVERY 12 HOURS IVP 09/17/20 14:15 10/17/20 14:14 09/29/20 09:21 Potassium Phosphate 250 ml @ 62.5 mls/hr Q4H IVPB 09/29/20 14:00 09/29/20 21:59 Sodium Chloride 1,000 ml @ 50 mls/hr Q20H IV 09/26/20 11:15 10/26/20 11:14 09/29/20 00:14 Zinc Sulfate (Zinc Sulfate) 220 mg DAILY ORAL 09/20/20 09:00 09/30/20 08:59 09/29/20 09:21 Assessment/Plan Assessment/Plan 1. Anemia, likely iron deficiency. - On IV iron. - s/p transfusion per Dr. Cazares. 2. Interstitial infiltrates, has pneumonia. - Sputum -> Serratia - Antibiotics per ID. - Continue supplemental oxygen; continue ventilator, AC mode.FiO2 30% 3. Sepsis. - Antibiotics per ID. Gm neg rods in sputum CS; confirmed Serratia 4. History of fever. - Currently afebrile. 5. Possible COVID-19 infection. - Swab COVID-19 test negative. - Repeat PCR COVID-19 also negative 6. CHF. - 2D echocardiogram ordered per Cardio. 7. UTI. - On antibiotics. Has ESBL E. Coli 8. Elevated D-dimer. 9. DVT prophylaxis. - Venous duplex ultrasound negative. - on SCD 10. Chronic Respiratory Failure; continue vent; AC mode The history of Jennifer Gao has been reviewed and management options for her have been examined and discussed by Mino Childs. I have personally examined and interviewed the patient. Mino Childs MD Sep 29, 2020 13:41
--- NOTE | 2020-09-29 13:50 | NUR ---
NURSE NOTES:Dr Petty removed patient femoral access, site is clean dry and intact, reinforced with gauze, no bleeding noted.
--- NOTE | 2020-09-29 13:59 | Infectious Diseases Prog Note ---
Assessment/Plan Assessment/Plan IMPRESSION: Fever resolved Eosinophilia & rash VRE sepsis ( Amp sensitive) Positive blood culture with Staph Hemolyticus likely contamination Serratia, Pseudomonas & Stenotrophomonas pneumonia, E coli UTI, Ventilator-dependent respiratory failure, Quadriplegia, Stage IV sacral ulcer, COPD, Iron deficiency anemia, Hypertension, history of atrial fibrillation. Negative COVI19 tests ? scabies, received Ivermectin RECOMMENDATION: Discontinue Meropenem , F/U CBC Subjective ROS Limited/Unobtainable: Yes Constitutional: Denies: fever Gastrointestinal/Abdominal: Denies: diarrhea Allergies: Coded Allergies: No Known Allergies (Unverified , 11/22/15) Objective Last 24 Hour Vital Signs Date Time Temp Pulse Resp B/P (MAP) Pulse Ox O2 Delivery O2 Flow Rate FiO2 09/29/20 12:00 98.2 72 18 110/53 (72) 100 09/29/20 12:00 64 09/29/20 11:57 Mechanical Ventilator 09/29/20 11:56 30 09/29/20 08:00 Mechanical Ventilator 09/29/20 08:00 30 09/29/20 08:00 65 09/29/20 08:00 98.4 75 18 128/67 (87) 100 09/29/20 06:40 67 17 30 09/29/20 04:00 97.7 64 16 117/59 (78) 100 09/29/20 04:00 30 09/29/20 04:00 Mechanical Ventilator Mechanical Ventilator 09/29/20 04:00 66 09/29/20 01:02 66 17 30 09/29/20 00:04 Mechanical Ventilator Mechanical Ventilator 09/29/20 00:00 69 09/29/20 00:00 98.1 64 17 110/50 (70) 100 09/28/20 20:00 61 09/28/20 20:00 98.0 75 18 104/43 (63) 99 09/28/20 20:00 Mechanical Ventilator Mechanical Ventilator 09/28/20 20:00 30 09/28/20 19:30 60 15 30 09/28/20 16:00 62 09/28/20 16:00 Mechanical Ventilator 09/28/20 16:00 30 09/28/20 15:40 97.7 67 18 118/59 (78) 99 09/28/20 15:35 68 19 30 Height (Feet): 5 Height (Inches): 3.00 Weight (Pounds): 145 HEENT: status post trach Respiratory/Chest: lungs clear, other - on ventilator Cardiovascular: normal rate Abdomen: soft, non tender, other - GT feeding Extremities: other - dependent edema Neurologic/Psychiatric: aphasia Laboratory Tests Test 09/28/20 15:50 09/28/20 23:41 09/29/20 03:35 09/29/20 05:27 POC Whole Blood Glucose 81 MG/DL (74-106) 91 MG/DL (74-106) 92 MG/DL (74-106) White Blood Count 18.6 K/UL (4.8-10.8) H Red Blood Count 3.28 M/UL (4.20-5.40) L Hemoglobin 10.5 G/DL (12.0-16.0) L Hematocrit 33.3 % (37.0-47.0) L Mean Corpuscular Volume 102 FL (80-99) H Mean Corpuscular Hemoglobin 31.9 PG (27.0-31.0) H Mean Corpuscular Hemoglobin Concent 31.4 G/DL (32.0-36.0) L Red Cell Distribution Width 16.6 % (11.6-14.8) H Platelet Count 166 K/UL (150-450) Mean Platelet Volume 7.7 FL (6.5-10.1) Neutrophils (%) (Auto) % (45.0-75.0) Lymphocytes (%) (Auto) % (20.0-45.0) Monocytes (%) (Auto) % (1.0-10.0) Eosinophils (%) (Auto) % (0.0-3.0) Basophils (%) (Auto) % (0.0-2.0) Differential Total Cells Counted 100 Neutrophils % (Manual) 42 % (45-75) L Lymphocytes % (Manual) 12 % (20-45) L Monocytes % (Manual) 6 % (1-10) Eosinophils % (Manual) 40 % (0-3) H Basophils % (Manual) 0 % (0-2) Band Neutrophils 0 % (0-8) Platelet Estimate Adequate Platelet Morphology Normal Hypochromasia 1+ Anisocytosis 1+ Macrocytosis 1+ Sodium Level 139 MMOL/L (136-145) Potassium Level 4.9 MMOL/L (3.5-5.1) Chloride Level 108 MMOL/L (98-107) H Carbon Dioxide Level 30 MMOL/L (21-32) Anion Gap 1 mmol/L (5-15) L Blood Urea Nitrogen 24 mg/dL (7-18) H Creatinine 0.5 MG/DL (0.55-1.30) L Estimat Glomerular Filtration Rate > 60 mL/min (>60) Glucose Level 102 MG/DL (74-106) Calcium Level 9.5 MG/DL (8.5-10.1) Phosphorus Level 2.0 MG/DL (2.5-4.9) L Magnesium Level 2.1 MG/DL (1.8-2.4) Total Bilirubin 0.5 MG/DL (0.2-1.0) Aspartate Amino Transf (AST/SGOT) 25 U/L (15-37) Alanine Aminotransferase (ALT/SGPT) 18 U/L (12-78) Alkaline Phosphatase 358 U/L (46-116) H Total Protein 7.4 G/DL (6.4-8.2) Albumin 2.4 G/DL (3.4-5.0) L Globulin 5.0 g/dL Albumin/Globulin Ratio 0.5 (1.0-2.7) L Current Medications Medications (Trade) Dose Ordered Sig/Alex Route PRN Reason Start Time Stop Time Status Last Admin Dose Admin Acetaminophen (Tylenol) 500 mg Q4H PRN ORAL Mild Pain (Pain Scale 1-3) 09/15/20 23:15 10/15/20 23:14 09/23/20 16:49 Acetaminophen (Tylenol) 500 mg Q4H PRN ORAL Temp >100.5 09/15/20 23:15 10/15/20 23:14 09/24/20 16:19 Ascorbic Acid (Vitamin C) 250 mg TWICE A DAY ORAL 09/19/20 18:00 10/19/20 17:59 09/29/20 09:21 Hydralazine HCl (Apresoline) 10 mg Q2H PRN IV For High Blood Pressure 09/17/20 17:00 12/16/20 16:59 Levothyroxine Sodium (Synthroid) 50 mcg DAILY IV 09/26/20 13:00 10/26/20 12:59 09/29/20 09:21 Meropenem 1 gm/ Sodium Chloride 55 ml @ 110 mls/hr Q12HR IVPB 09/30/20 09:00 10/03/20 23:59 Meropenem 1 gm/ Sodium Chloride 55 ml @ 110 mls/hr Q8HR IVPB 09/24/20 14:00 09/29/20 23:00 09/29/20 13:15 Multivitamins (Multivitamins) 1 tab DAILY ORAL 09/20/20 09:00 10/20/20 08:59 09/29/20 09:21 Pantoprazole (Protonix) 40 mg EVERY 12 HOURS IVP 09/17/20 14:15 10/17/20 14:14 09/29/20 09:21 Potassium Phosphate 250 ml @ 62.5 mls/hr Q4H IVPB 09/29/20 14:00 09/29/20 21:59 Sodium Chloride 1,000 ml @ 50 mls/hr Q20H IV 09/26/20 11:15 10/26/20 11:14 09/29/20 00:14 Zinc Sulfate (Zinc Sulfate) 220 mg DAILY ORAL 09/20/20 09:00 09/30/20 08:59 09/29/20 09:21 Mahesh Nicole MD Sep 29, 2020 13:59
--- NOTE | 2020-09-29 14:03 | Surgery Progress Note ---
Surgery Progress Note Subjective Additional Comments no complaints no n/v comfortable labs stable Objective Last 24 Hour Vital Signs Date Time Temp Pulse Resp B/P (MAP) Pulse Ox O2 Delivery O2 Flow Rate FiO2 09/29/20 12:00 98.2 72 18 110/53 (72) 100 09/29/20 12:00 64 09/29/20 11:57 Mechanical Ventilator 09/29/20 11:56 30 09/29/20 08:00 Mechanical Ventilator 09/29/20 08:00 30 09/29/20 08:00 65 09/29/20 08:00 98.4 75 18 128/67 (87) 100 09/29/20 06:40 67 17 30 09/29/20 04:00 97.7 64 16 117/59 (78) 100 09/29/20 04:00 30 09/29/20 04:00 Mechanical Ventilator Mechanical Ventilator 09/29/20 04:00 66 09/29/20 01:02 66 17 30 09/29/20 00:04 Mechanical Ventilator Mechanical Ventilator 09/29/20 00:00 69 09/29/20 00:00 98.1 64 17 110/50 (70) 100 09/28/20 20:00 61 09/28/20 20:00 98.0 75 18 104/43 (63) 99 09/28/20 20:00 Mechanical Ventilator Mechanical Ventilator 09/28/20 20:00 30 09/28/20 19:30 60 15 30 09/28/20 16:00 62 09/28/20 16:00 Mechanical Ventilator 09/28/20 16:00 30 09/28/20 15:40 97.7 67 18 118/59 (78) 99 09/28/20 15:35 68 19 30 I&O Intake and Output 09/28/20 09/29/20 19:00 07:00 Intake Total 1370 ml 1320 ml Output Total 220 ml 650 ml Balance 1150 ml 670 ml Free Water 160 ml 120 ml IV Total 660 ml 600 ml Tube Feeding 550 ml 600 ml Output Urine Total 200 ml 600 ml Stool Total 20 ml 50 ml Dressing: saturated Drains: other Cardiovascular: RSR Respiratory: decreased breath sounds Abdomen: soft, non-tender, present bowel sounds, non-distended Extremities: no tenderness, no cyanosis Laboratory Tests Test 09/28/20 15:50 09/28/20 23:41 09/29/20 03:35 09/29/20 05:27 POC Whole Blood Glucose 81 MG/DL (74-106) 91 MG/DL (74-106) 92 MG/DL (74-106) White Blood Count 18.6 K/UL (4.8-10.8) H Red Blood Count 3.28 M/UL (4.20-5.40) L Hemoglobin 10.5 G/DL (12.0-16.0) L Hematocrit 33.3 % (37.0-47.0) L Mean Corpuscular Volume 102 FL (80-99) H Mean Corpuscular Hemoglobin 31.9 PG (27.0-31.0) H Mean Corpuscular Hemoglobin Concent 31.4 G/DL (32.0-36.0) L Red Cell Distribution Width 16.6 % (11.6-14.8) H Platelet Count 166 K/UL (150-450) Mean Platelet Volume 7.7 FL (6.5-10.1) Neutrophils (%) (Auto) % (45.0-75.0) Lymphocytes (%) (Auto) % (20.0-45.0) Monocytes (%) (Auto) % (1.0-10.0) Eosinophils (%) (Auto) % (0.0-3.0) Basophils (%) (Auto) % (0.0-2.0) Differential Total Cells Counted 100 Neutrophils % (Manual) 42 % (45-75) L Lymphocytes % (Manual) 12 % (20-45) L Monocytes % (Manual) 6 % (1-10) Eosinophils % (Manual) 40 % (0-3) H Basophils % (Manual) 0 % (0-2) Band Neutrophils 0 % (0-8) Platelet Estimate Adequate Platelet Morphology Normal Hypochromasia 1+ Anisocytosis 1+ Macrocytosis 1+ Sodium Level 139 MMOL/L (136-145) Potassium Level 4.9 MMOL/L (3.5-5.1) Chloride Level 108 MMOL/L (98-107) H Carbon Dioxide Level 30 MMOL/L (21-32) Anion Gap 1 mmol/L (5-15) L Blood Urea Nitrogen 24 mg/dL (7-18) H Creatinine 0.5 MG/DL (0.55-1.30) L Estimat Glomerular Filtration Rate > 60 mL/min (>60) Glucose Level 102 MG/DL (74-106) Calcium Level 9.5 MG/DL (8.5-10.1) Phosphorus Level 2.0 MG/DL (2.5-4.9) L Magnesium Level 2.1 MG/DL (1.8-2.4) Total Bilirubin 0.5 MG/DL (0.2-1.0) Aspartate Amino Transf (AST/SGOT) 25 U/L (15-37) Alanine Aminotransferase (ALT/SGPT) 18 U/L (12-78) Alkaline Phosphatase 358 U/L (46-116) H Total Protein 7.4 G/DL (6.4-8.2) Albumin 2.4 G/DL (3.4-5.0) L Globulin 5.0 g/dL Albumin/Globulin Ratio 0.5 (1.0-2.7) L Plan Problems: (1) Pneumonia (2) Functional quadriplegia (3) Person under investigation for COVID-19 (4) Chronic respiratory failure (5) Dehydration (6) Hypernatremia (7) Hypothyroidism (8) Pyelonephritis (9) Protein calorie malnutrition Assessment & Plan: DAILY ESTIMATED NEEDS: Needs based on Wound, critical care 57.5kg abw 25-30 kcals/kg 7461-7256 total kcals 1.25-2 g protein/kg 72-115 g total protein 25-30 mL/kg 7934-3332 total fluid mLs NUTRITION DIAGNOSIS: * Increased kcal/prot needs R/T wound healing as evidenced by pt w/ h/o stage 4 sacral wound, eval is pending. * Swallowing difficulty R/T dysphagia, respiratory status as evidenced by pt is Trach and PEG dep. ENTERAL NUTRITION RECOMMENDATIONS: Glucerna 1.2 @ 55ml/hr x 24 hrs to provide 1320ml, 1584 kcal, 79g pro, 1063ml free H2O * As medically able, start Glucerna 1.2 @35ml/hr for 6 hrs, advance as tolerated q4-6 to goal. * Add TYRESE in 4oz water BID via PEG for wound healing * HOB over 30 degrees/ water flush per MD ADDITIONAL RECOMMENDATIONS: * Calibrated bedscale wt for accurate CBW * Wound healing: TYRESE BID, Vit C 250mg BID F/up w/ WC eval * Monitor lytes, replete as needed * Monitor BGs w/ TF-> bed side BG checks + NISS (10) Failure to thrive (child) (11) Sacral decubitus ulcer Assessment & Plan: Pt presented on admission with Tracheostomy, GT, and multiple Pressure injuries. No erythema or evidence of skin breakdown under tracheal collar. dry dark brown skin plaque noted at R lateral chest to R flank. Full thickness stage 4 Sacral Pressure Injury with undermined borders(L)2cm x (W)2cm x (D)2cm, undermining clockwise 11-3 by 2.3cm @3o'clock.Ability to accurately assess base of wound is not fully appreciated secondary to shape of wound. (+) Epibole along edges of wound. Silver Nitrate sticks application applied to Borders. Bone is palpable when probed.Small amt brown exudate noted. No odor noted. [place] Atrophic scar periwound. Resolving Pressure Injury R Ischium. [place] epithelial noted at base of wound. Intact serous Blister noted to monica/upper L thigh. No erythema or changes in skin temp at affected site. Reabsorbing DTPI L Hallux. Base of Pressure injury is dark brown,dry without erythema,induration or fluctuance. L Heel is boggy with non-blanchable erythema. R Heel is boggy but blanchable. Tx.Plan: Cleanse Sacral wound with Saline. Loosely pack with Therahoney impregnated Kerlix.Apply Moisture Barrier Paste periwound. Cover with Optifoam drsg every 3 days and prn. Apply Moisture Barrier Paste to R Ischium. Cover with Optifoam drsg. Change every 3 days and prn. Apply Phytoplex Skin Nourishing lotion to Lateral R chest /R Flank Daily. Apply Cavilon Skin Barrier to R and L Heel. Cover each heel with Optifoam drsg.Change every 7 days and prn. Reposition at least every 2hours or as tolerated. Off-load heels with pillow. (12) Tracheostomy dependence (13) Sepsis Assessment & Plan: leukocytosis anemia on abx labs reviewed trend id input noted (14) UTI (urinary tract infection) (15) Anemia (16) Dysphagia (17) Hypoalbuminemia (18) Iron deficiency (19) At high risk for aspiration (20) Parkinson disease (21) Dementia (22) Elevated CEA (23) Paroxysmal A-fib (24) Pancytopenia (25) Hypothyroidism (26) Electrolyte imbalance Holland Petty Sep 29, 2020 14:03
--- NOTE | 2020-09-29 14:12 | NUR ---
NURSE NOTES:Vascular senior laboratory technician arrived to do the venous duplex of upper and lower extremities, asked her to come back later as patient is going down for abdomen/pelvis CT which has to be performed before 1500 otherwise I am unable to go down with the patient as we will not have a charge nurse at 1500.
[2020-09-29] MEDS: Potassium Phosphate 15mm/250ml 250 ML IVPB SCH ×2 (14:28→19:39)
[2020-09-29 16:00] VITALS: BP 109/60
--- NOTE | 2020-09-29 16:23 | General Progress Note ---
Subjective ROS Limited/Unobtainable: Yes Allergies: Coded Allergies: No Known Allergies (Unverified , 11/22/15) Objective Last 24 Hour Vital Signs Date Time Temp Pulse Resp B/P (MAP) Pulse Ox O2 Delivery O2 Flow Rate FiO2 09/29/20 16:00 98.8 70 18 109/60 (76) 100 09/29/20 16:00 30 09/29/20 16:00 Mechanical Ventilator 09/29/20 12:00 98.2 72 18 110/53 (72) 100 09/29/20 12:00 64 09/29/20 11:57 Mechanical Ventilator 09/29/20 11:56 30 09/29/20 08:00 Mechanical Ventilator 09/29/20 08:00 30 09/29/20 08:00 65 09/29/20 08:00 98.4 75 18 128/67 (87) 100 09/29/20 06:40 67 17 30 09/29/20 04:00 97.7 64 16 117/59 (78) 100 09/29/20 04:00 30 09/29/20 04:00 Mechanical Ventilator Mechanical Ventilator 09/29/20 04:00 66 09/29/20 01:02 66 17 30 09/29/20 00:04 Mechanical Ventilator Mechanical Ventilator 09/29/20 00:00 69 09/29/20 00:00 98.1 64 17 110/50 (70) 100 09/28/20 20:00 61 09/28/20 20:00 98.0 75 18 104/43 (63) 99 09/28/20 20:00 Mechanical Ventilator Mechanical Ventilator 09/28/20 20:00 30 09/28/20 19:30 60 15 30 Intake and Output 09/28/20 09/29/20 19:00 07:00 Intake Total 1370 ml 1320 ml Output Total 220 ml 650 ml Balance 1150 ml 670 ml Free Water 160 ml 120 ml IV Total 660 ml 600 ml Tube Feeding 550 ml 600 ml Output Urine Total 200 ml 600 ml Stool Total 20 ml 50 ml Laboratory Tests 09/28/20 23:41: POC Whole Blood Glucose 91 09/29/20 03:35: White Blood Count 18.6H, Red Blood Count 3.28L, Hemoglobin 10.5L, Hematocrit 33 .3L, Mean Corpuscular Volume 102H, Mean Corpuscular Hemoglobin 31.9H, Mean Corpuscular Hemoglobin Concent 31.4L, Red Cell Distribution Width 16.6H, Platelet Count 166, Mean Platelet Volume 7.7, Neutrophils (%) (Auto) , Lymphocytes (%) (Auto) , Monocytes (%) (Auto) , Eosinophils (%) (Auto) , Basophils (%) (Auto) , Differential Total Cells Counted 100, Neutrophils % (Manual) 42L, Lymphocytes % (Manual) 12L, Monocytes % (Manual) 6, Eosinophils % (Manual) 40H, Basophils % (Manual) 0, Band Neutrophils 0, Platelet Estimate Adequate, Platelet Morphology Normal, Hypochromasia 1+, Anisocytosis 1+, Macrocytosis 1+, Sodium Level 139, Potassium Level 4.9, Chloride Level 108H, Carbon Dioxide Level 30, Anion Gap 1L, Blood Urea Nitrogen 24H, Creatinine 0.5L, Estimat Glomerular Filtration Rate > 60, Glucose Level 102, Calcium Level 9.5, Phosphorus Level 2.0L, Magnesium Level 2.1, Total Bilirubin 0.5, Aspartate Amino Transf (AST/SGOT) 25, Alanine Aminotransferase (ALT/SGPT) 18, Alkaline Phosphatase 358H, Total Protein 7.4, Albumin 2.4L, Globulin 5.0, Albumin/Globulin Ratio 0.5L 09/29/20 05:27: POC Whole Blood Glucose 92 Height (Feet): 5 Height (Inches): 3.00 Weight (Pounds): 145 Assessment/Plan Problem List: (1) Hypothyroidism ICD Codes: E03.9 - Hypothyroidism, unspecified SNOMED: 83998243 (2) Chronic respiratory failure ICD Codes: J96.10 - Chronic respiratory failure, unspecified whether with hypoxia or hypercapnia SNOMED: 56415902 (3) Functional quadriplegia ICD Codes: R53.2 - Functional quadriplegia SNOMED: 880986736516357 (4) Protein calorie malnutrition ICD Codes: E46 - Unspecified protein-calorie malnutrition SNOMED: 594418952 (5) Failure to thrive (child) ICD Codes: R62.51 - Failure to thrive (child) SNOMED: 862816556 (6) Sacral decubitus ulcer ICD Codes: L89.159 - Pressure ulcer of sacral region, unspecified stage SNOMED: 901555264 (7) Tracheostomy dependence ICD Codes: Z93.0 - Tracheostomy status SNOMED: 919483505 (8) Sepsis ICD Codes: A41.9 - Sepsis, unspecified organism SNOMED: 59553570 (9) Anemia ICD Codes: D64.9 - Anemia, unspecified SNOMED: 950111409 Qualifiers: Qualified Codes: D64.9 - Anemia, unspecified (10) UTI (urinary tract infection) ICD Codes: N39.0 - Urinary tract infection, site not specified SNOMED: 97225736 Qualifiers: Qualified Codes: N39.0 - Urinary tract infection, site not specified Status: progressing Assessment/Plan: trach and peg pna sepsis anemia reviewed chart no fever quadraplegia Sandeep Oneil MD Sep 29, 2020 16:23
[2020-09-29] MEDS ORDERED: Omnipaque-300 100ml vial INJ PRN (19:00)
--- NOTE | 2020-09-29 19:02 | General Progress Note ---
Subjective Allergies: Coded Allergies: No Known Allergies (Unverified , 11/22/15) Subjective Above noted Tolerating TF Non verbal d/w industrial staff nurse WBC remains elevated Alk phos higher Objective Last 24 Hour Vital Signs Date Time Temp Pulse Resp B/P (MAP) Pulse Ox O2 Delivery O2 Flow Rate FiO2 09/29/20 16:00 98.8 70 18 109/60 (76) 100 09/29/20 16:00 30 09/29/20 16:00 Mechanical Ventilator 09/29/20 14:00 68 09/29/20 13:15 67 15 30 09/29/20 12:00 98.2 72 18 110/53 (72) 100 09/29/20 12:00 64 09/29/20 11:57 Mechanical Ventilator 09/29/20 11:56 30 09/29/20 08:00 Mechanical Ventilator 09/29/20 08:00 30 09/29/20 08:00 65 09/29/20 08:00 98.4 75 18 128/67 (87) 100 09/29/20 06:40 67 17 30 09/29/20 04:00 97.7 64 16 117/59 (78) 100 09/29/20 04:00 30 09/29/20 04:00 Mechanical Ventilator Mechanical Ventilator 09/29/20 04:00 66 09/29/20 01:02 66 17 30 09/29/20 00:04 Mechanical Ventilator Mechanical Ventilator 09/29/20 00:00 69 09/29/20 00:00 98.1 64 17 110/50 (70) 100 09/28/20 20:00 61 09/28/20 20:00 98.0 75 18 104/43 (63) 99 09/28/20 20:00 Mechanical Ventilator Mechanical Ventilator 09/28/20 20:00 30 09/28/20 19:30 60 15 30 Intake and Output 09/28/20 09/29/20 19:00 07:00 Intake Total 1370 ml 1320 ml Output Total 220 ml 650 ml Balance 1150 ml 670 ml Free Water 160 ml 120 ml IV Total 660 ml 600 ml Tube Feeding 550 ml 600 ml Output Urine Total 200 ml 600 ml Stool Total 20 ml 50 ml Laboratory Tests 09/28/20 23:41: POC Whole Blood Glucose 91 09/29/20 03:35: White Blood Count 18.6H, Red Blood Count 3.28L, Hemoglobin 10.5L, Hematocrit 33.3L, Mean Corpuscular Volume 102H, Mean Corpuscular Hemoglobin 31.9H, Mean Corpuscular Hemoglobin Concent 31.4L, Red Cell Distribution Width 16.6H, Platelet Count 166, Mean Platelet Volume 7.7, Neutrophils (%) (Auto) , Lymphocytes (%) (Auto) , Monocytes (%) (Auto) , Eosinophils (%) (Auto) , B asophils (%) (Auto) , Differential Total Cells Counted 100, Neutrophils % (Manual) 42L, Lymphocytes % (Manual) 12L, Monocytes % (Manual) 6, Eosinophils % (Manual) 40H, Basophils % (Manual) 0, Band Neutrophils 0, Platelet Estimate Adequate, Platelet Morphology Normal, Hypochromasia 1+, Anisocytosis 1+, Macrocytosis 1+, Sodium Level 139, Potassium Level 4.9, Chloride Level 108H, Carbon Dioxide Level 30, Anion Gap 1L, Blood Urea Nitrogen 24H, Creatinine 0.5L, Estimat Glomerular Filtration Rate > 60, Glucose Level 102, Calcium Level 9.5, Phosphorus Level 2.0L, Magnesium Level 2.1, Total Bilirubin 0.5, Aspartate Amino Transf (AST/SGOT) 25, Alanine Aminotransferase (ALT/SGPT) 18, Alkaline Phosphatase 358H, Total Protein 7.4, Albumin 2.4L, Globulin 5.0, Albumin/Globulin Ratio 0.5L 09/29/20 05:27: POC Whole Blood Glucose 92 Height (Feet): 5 Height (Inches): 3.00 Weight (Pounds): 145 Objective debilitated Elderly woman on vent NCAT neck (+) trach coarse BS RR abd soft , flat, (+) GT no edema, (++) contractures Assessment/Plan Status: progressing Assessment/Plan: Assessment - GT site drainage/discharge - resolved - Leukocytosis - Rising Alk phos - biliary obstruction? - OBS - Resp failure, s/p Trach - s/p PEG for dysphagia, - Parkinsons - Schizophrenia - h/o decub ulcers - Severe anemia Recommendations - check CT abd / pelvis - GT care - Elevate HOB - monitor labs Tana Romano MD Sep 29, 2020 19:02
--- NOTE | 2020-09-29 19:10 | NUR ---
NURSE NOTES: Received report from CRISTY Castelan. Pt is lying in bed, no facial grimacing noted, not in acute distress. Tolerating vent setting of AC12, TV400, PEEP 5, FiO2 30% with O2 saturation 100%. Vital signs are stable. G-tube is patent and intact running Glucerna 1.2 @ 50cc/hr. Peripheral IV in R hand 22 G and L forearm 22G is intact and patent, running NS @ 50cc/hr. Rectal tube is intact and patent. Skin issues noted and dressing intact. Recent labs, medication and MD order reviewed. Bed is locked and in lowest position , bed alarm on, call light is within reach. Fall, aspiration, and skin precautions in place. Will continue to monitor pt. Will continue with the plan of care.
--- NOTE | 2020-09-29 19:39 | NUR ---
NURSE HAND-OFF REPORT: Important Events on Shift: Patient Status: Stable Diet: Glucerna 1.2@50ML/HR Pending Orders: CT Abdomen/Pelvis Pending Results/Labs: Pending MD notification: Latest Vital Signs: Temperature 98.8 , Pulse 70 , B/P 109 /60 , Respiratory Rate 18 , O2 SAT 100 , Mechanical Ventilator, O2 Flow Rate 50.0 . Vital Sign Comment: EKG Rhythm: Sinus Rhythm Rhythm change?: N MD Notified?: - MD Response: Latest [place] Fall Score: 50 Fall Risk: High Risk Safety Measures: Call light Within Reach, Bed Alarm Zone 2, Side Rails Side Rails x3, Bed position Low and Locked. Fall Precautions: Yellow Socks Yellow Gown Door Sign Report given to Lauren
--- NOTE | 2020-09-29 19:55 | Cardiac Electrophysiology PN ---
Assessment/Plan Assessment/Plan 1. Hypertension, currently blood pressure stable. On p.r.n. Hydralazine and clonidine 2. VDRF status post tracheostomy on 30% FiO2, in sinus rhythm. COVID was negative. 3. Severe anemia, hemoglobin 7.5. S/P blood transfusion. Etiology is not clear at this time, but creatinine is within normal range. 4. Elevated BNP of more than 4000. Echo EF 65% 5. Dysphagia, status post PEG replacement 09/22/20. 6. VRE sepsis ( Amp sensitive), Gram positive bacteremia, Pseudomonas pneumonia, E coli UTI, on iv Abx per ID WBC 17K 7. Sacral Decubitus DW RN Subjective Subjective Off covid isolation. GT replaced 09/22/20 On the Vent with 30% Fio2 off restraints.In SR on iv ABx Had dilcia in 50s Objective Last 24 Hour Vital Signs Date Time Temp Pulse Resp B/P (MAP) Pulse Ox O2 Delivery O2 Flow Rate FiO2 09/29/20 19:48 66 21 30 09/29/20 16:00 98.8 70 18 109/60 (76) 100 09/29/20 16:00 30 09/29/20 16:00 Mechanical Ventilator 09/29/20 14:00 68 09/29/20 13:15 67 15 30 09/29/20 12:00 98.2 72 18 110/53 (72) 100 09/29/20 12:00 64 09/29/20 11:57 Mechanical Ventilator 09/29/20 11:56 30 09/29/20 08:00 Mechanical Ventilator 09/29/20 08:00 30 09/29/20 08:00 65 09/29/20 08:00 98.4 75 18 128/67 (87) 100 09/29/20 06:40 67 17 30 09/29/20 04:00 97.7 64 16 117/59 (78) 100 09/29/20 04:00 30 09/29/20 04:00 Mechanical Ventilator Mechanical Ventilator 09/29/20 04:00 66 09/29/20 01:02 66 17 30 09/29/20 00:04 Mechanical Ventilator Mechanical Ventilator 09/29/20 00:00 69 09/29/20 00:00 98.1 64 17 110/50 (70) 100 09/28/20 20:00 61 09/28/20 20:00 98.0 75 18 104/43 (63) 99 09/28/20 20:00 Mechanical Ventilator Mechanical Ventilator 09/28/20 20:00 30 Intake and Output 09/28/20 09/29/20 19:00 07:00 Intake Total 1370 ml 1320 ml Output Total 220 ml 650 ml Balance 1150 ml 670 ml Free Water 160 ml 120 ml IV Total 660 ml 600 ml Tube Feeding 550 ml 600 ml Output Urine Total 200 ml 600 ml Stool Total 20 ml 50 ml Laboratory Tests Test 09/28/20 23:41 09/29/20 03:35 09/29/20 05:27 POC Whole Blood Glucose 91 MG/DL (74-106) 92 MG/DL (74-106) White Blood Count 18.6 K/UL (4.8-10.8) H Red Blood Count 3.28 M/UL (4.20-5.40) L Hemoglobin 10.5 G/DL (12.0-16.0) L Hematocrit 33.3 % (37.0-47.0) L Mean Corpuscular Volume 102 FL (80-99) H Mean Corpuscular Hemoglobin 31.9 PG (27.0-31.0) H Mean Corpuscular Hemoglobin Concent 31.4 G/DL (32.0-36.0) L Red Cell Distribution Width 16.6 % (11.6-14.8) H Platelet Count 166 K/UL (150-450) Mean Platelet Volume 7.7 FL (6.5-10.1) Neutrophils (%) (Auto) % (45.0-75.0) Lymphocytes (%) (Auto) % (20.0-45.0) Monocytes (%) (Auto) % (1.0-10.0) Eosinophils (%) (Auto) % (0.0-3.0) Basophils (%) (Auto) % (0.0-2.0) Differential Total Cells Counted 100 Neutrophils % (Manual) 42 % (45-75) L Lymphocytes % (Manual) 12 % (20-45) L Monocytes % (Manual) 6 % (1-10) Eosinophils % (Manual) 40 % (0-3) H Basophils % (Manual) 0 % (0-2) Band Neutrophils 0 % (0-8) Platelet Estimate Adequate Platelet Morphology Normal Hypochromasia 1+ Anisocytosis 1+ Macrocytosis 1+ Sodium Level 139 MMOL/L (136-145) Potassium Level 4.9 MMOL/L (3.5-5.1) Chloride Level 108 MMOL/L (98-107) H Carbon Dioxide Level 30 MMOL/L (21-32) Anion Gap 1 mmol/L (5-15) L Blood Urea Nitrogen 24 mg/dL (7-18) H Creatinine 0.5 MG/DL (0.55-1.30) L Estimat Glomerular Filtration Rate > 60 mL/min (>60) Glucose Level 102 MG/DL (74-106) Calcium Level 9.5 MG/DL (8.5-10.1) Phosphorus Level 2.0 MG/DL (2.5-4.9) L Magnesium Level 2.1 MG/DL (1.8-2.4) Total Bilirubin 0.5 MG/DL (0.2-1.0) Aspartate Amino Transf (AST/SGOT) 25 U/L (15-37) Alanine Aminotransferase (ALT/SGPT) 18 U/L (12-78) Alkaline Phosphatase 358 U/L (46-116) H Total Protein 7.4 G/DL (6.4-8.2) Albumin 2.4 G/DL (3.4-5.0) L Globulin 5.0 g/dL Albumin/Globulin Ratio 0.5 (1.0-2.7) L Objective HEAD AND NECK: No JVD.S/P Trach LUNGS: Coarse rhonchi. CARDIOVASCULAR: Regular S1 and S2 with no gallop. ABDOMEN: Status post PEG. EXTREMITIES: 1+ pitting edema. Flex Bess MD Sep 29, 2020 19:55
[2020-09-29 20:00] VITALS: BP 118/58
--- NOTE | 2020-09-29 22:30 | NUR ---
NURSE NOTES: Initial assessment done. Evening medications administered per order. Pt is given sponged bath, skin moisturizer applied. Pressure ulcer cleaned and dressing changed. Gown and linens changed. Pt. turned and repositioned. Oral care and suctioning done. Pt tolerated well. Will continue to monitor pt.
[2020-09-30] VITALS: BP 119/59
--- NOTE | 2020-09-30 03:00 | NUR ---
NURSE NOTES: Pt was brought down for CT of abdomen and pelvis with contrast. Pt tolerated well. O2 saturation remain 95-100%. Vital signs remain stable. Will continue to closely monitor pt.
--- NOTE | 2020-09-30 03:28 | Diagnostic Imaging Report ---
EXAM: CT Abdomen and Pelvis With Intravenous Contrast CLINICAL HISTORY: ABN LABS TECHNIQUE: Axial computed tomography images of the abdomen and pelvis with intravenous contrast. CTDI is 11.70 mGy and DLP is 547.30 mGy-cm. One or more of the following dose reduction techniques were used: automated exposure control, adjustment of the mA and/or kV according to patient size, use of iterative reconstruction technique. COMPARISON: No relevant prior studies available. FINDINGS: Lung bases: There is mild left basilar atelectasis. ABDOMEN: Liver: Unremarkable. No mass. Gallbladder and bile ducts: Unremarkable. No calcified stones. No ductal dilation. Pancreas: Unremarkable. No mass. No ductal dilation. Spleen: Unremarkable. No splenomegaly. Adrenals: Unremarkable. No mass. Kidneys and ureters: There are at least 4 stones identified in the distal right ureter with mild right hydronephrosis and hydroureter. The largest, most distal stone, just proximal to the UVJ measures 12 x 6 mm. There are two 2-3 mm stones in the more proximal ureter as well as a fourth stone measuring 13 x 7 mm. There is a nonobstructing stone in the right renal pelvis measuring 13 x 14 mm as well as a stone in the right lower pole calyx measuring 11 x 7 mm. There are multiple nonobstructing left renal stones ranging from 3-10 mm in diameter. No left hydronephrosis identified. Stomach and bowel: Unremarkable. No obstruction. No mucosal thickening. PELVIS: Appendix: No findings to suggest acute appendicitis. Bladder: Unremarkable. No mass. Reproductive: Unremarkable as visualized. ABDOMEN and PELVIS: Intraperitoneal space: Unremarkable. No free air. No significant fluid collection. Bones/joints: No acute fracture. No dislocation. Soft tissues: Unremarkable. Vasculature: Unremarkable. No abdominal aortic aneurysm. Lymph nodes: Unremarkable. No enlarged lymph nodes. Tubes, lines and devices: There is a gastrostomy tube in good position. IMPRESSION: 1. There are at least 4 stones identified in the distal right ureter with mild right hydronephrosis and hydroureter. The largest, most distal stone, just proximal to the UVJ measures 12 x 6 mm. There are two 2-3 mm stones in the more proximal ureter as well as a fourth stone measuring 13 x 7 mm. 2. There is a nonobstructing stone in the right renal pelvis measuring 13 x 14 mm as well as a stone in the right lower pole calyx measuring 11 x 7 mm.
[2020-09-30 04:00] VITALS: BP 126/74
[2020-09-30 06:05] LABS: HEMOGLOBIN 10.2 G/DL (12.0-16.0); MEAN CORPUSCULAR VOLUME 102 FL (80-99); PLATELET COUNT 254 K/UL (150-450); RED BLOOD COUNT 3.24 M/UL (4.20-5.40); RED CELL DISTRIBUTION WIDTH 16.3 % (11.6-14.8); WHITE BLOOD COUNT 17.9 K/UL (4.8-10.8)
[2020-09-30 06:18] LABS: ALANINE AMINOTRANSFERASE 19 U/L (12-78); ALBUMIN 2.4 G/DL (3.4-5.0); ALBUMIN/GLOBULIN RATIO 0.5 (1.0-2.7); ALKALINE PHOSPHATASE 359 U/L (46-116); ANION GAP 4 mmol/L (5-15); ASPARTATE AMINO TRANSFERASE 23 U/L (15-37); BILIRUBIN,TOTAL 0.5 MG/DL (0.2-1.0); BLOOD UREA NITROGEN 22 mg/dL (7-18); CALCIUM 8.9 MG/DL (8.5-10.1); CARBON DIOXIDE 27 MMOL/L (21-32); CHLORIDE 108 MMOL/L (98-107); CREATININE 0.5 MG/DL (0.55-1.30); POTASSIUM 4.9 MMOL/L (3.5-5.1); SODIUM 139 MMOL/L (136-145)
--- NOTE | 2020-09-30 06:28 | Hematology/Onc Progress Note ---
Assessment/Plan Assessment/Plan LABORATORY DATA: 04/2020 white count 4.7, platelets 140 otherwise CBC is normal. BMP shows chloride 110, creatinine 0.4. Albumin 2.9, otherwise normal. INR 1.0, PTT 27. Urinalysis shows 2+ leukocyte esterase. 09/16 wbc 10, hgb 7.5, plt 126 Imaging 07/01/20 cxr Bilateral patchy airspace opacities. Differential includes multifocal pneumonia and pulmonary edema. 09/16/20 cxr b/l infiltrates noted Assessment and Recommendations # Anemia of iron deficiency, has been persistent for months, now improved, as ferritin better --> Anemia workup has been ordered--> improved --> No evidence of hemolysis is noted, peripheral smear has been reviewed. --> Hgb goal >7. Transfuse prn. --> Iron iv not needed any further --> Medications have been reviewed --> gb 9-->8.4->>>>7.5-->9.4-->9->10-->9.4->10.1-->10.5-->10.2 # Right breast calcifications --> does not have a breast mass on exam --> f/u as outpatient with mammo as needed --> do not do a us breast here # Thrombocytopenia - potential causes multifactorial, evaluate liver and viral etiologies to begin, also could be related to underlying medications, no wimproved --> Hep panel and HIV prior negative -> plt 183->203->199-->125->130 --> abx # Leukocytosis with Pna --> antibiotics per id --> wbc 16->10.8-->16-->18 --> smear is noted # Sepsis --> antibiotics per Infectious Disease. --> ABX vanc/zosyn->meropenem # Dehydration. --> PT and Dietary evaluation. # Hypertension --> Blood pressure control. # Dvt ppx scds The timing of this note does not necessarily reflect the time of the patient was seen Greatly appreciate consultation! Subjective HEENT: Denies: no symptoms, eye pain, blurred vision, tearing, double vision, ear pain, ear discharge, nose pain, nose congestion, throat pain, throat swelling, mouth pain, mouth swelling, other Cardiovascular: Denies: no symptoms, chest pain, edema, irregular heart rate, lightheadedness, palpitations, syncope, other Respiratory: Denies: no symptoms, cough, shortness of breath, SOB with excertion, SOB at rest, sputum, wheezing, other Genitourinary: Denies: no symptoms, burning, discharge, frequency, flank pain, hematuria, incontinence, pain, urgency, other Neurologic/Psychiatric: Denies: no symptoms, anxiety, depressed, emotional problems, headache, numbness, paresthesia, pre-existing deficit, seizure, tingling, tremors, weakness, other Endocrine: Denies: no symptoms, excessive sweating, flushing, intolerance to cold, intolerance to heat, increased hunger, increased thirst, increased urine, unexplained weight gain, unexplained weight loss, other Hematologic/Lymphatic: Denies: no symptoms, anemia, easy bleeding, easy bruising, adenopathy, other Allergies: Coded Allergies: No Known Allergies (Unverified , 11/22/15) Subjective 09/18 labs are noted, no bleeding, seen by pulm, cbc is pending 09/19 gtube is running, meds reviewed, labs noted 09/20 labs reviewed, meds noted, cbc is pending, vanc was added recently 09/21 labs reviewed, meds noetd, hgb 10, bactrim, yovani, vanc 09/22 is satting well on the vent, abx, labs still pending for am 09/23 remains on vent, not in acute distress, no bleeding, no night sweats 09/25 labs pending, on trach, vent gtube, meds reviewed, feeds ongoing 09/26 obtunded, labs pending, trach/vent, no bleeding, meds noted 09/27 pending cbc, is s/p peg feeds, hany/trach 09/28 obtunded, no events, s/p peg, vent/trach, cleaned per Rn 09/29 nv, t/v, no night sweats, meds noted, no bleeding 09/30 nv, no bleeding, stones noted, with hydro on ct, labs reviewed Objective Objective Current Medications Medications (Trade) Dose Ordered Sig/Alex Route PRN Reason Start Time Stop Time Status Last Admin Dose Admin Acetaminophen (Tylenol) 500 mg Q4H PRN ORAL Mild Pain (Pain Scale 1-3) 09/15/20 23:15 10/15/20 23:14 09/23/20 16:49 Acetaminophen (Tylenol) 500 mg Q4H PRN ORAL Temp >100.5 09/15/20 23:15 10/15/20 23:14 09/24/20 16:19 Ascorbic Acid (Vitamin C) 250 mg TWICE A DAY ORAL 09/19/20 18:00 10/19/20 17:59 09/29/20 17:06 Barium Sulfate (Readi-Cat 2) 450 ml NOW PRN ORAL Radiology Procedure 09/29/20 19:00 10/01/20 18:59 Hydralazine HCl (Apresoline) 10 mg Q2H PRN IV For High Blood Pressure 09/17/20 17:00 12/16/20 16:59 Iohexol (OMNIPAQUE-300 100ml) 100 ml NOW PRN INJ Radiology Procedure 09/29/20 19:00 10/01/20 18:59 Levothyroxine Sodium (Synthroid) 50 mcg DAILY IV 09/26/20 13:00 10/26/20 12:59 09/29/20 09:21 Multivitamins (Multivitamins) 1 tab DAILY ORAL 09/20/20 09:00 10/20/20 08:59 09/29/20 09:21 Pantoprazole (Protonix) 40 mg EVERY 12 HOURS IVP 09/17/20 14:15 10/17/20 14:14 09/29/20 20:22 Sodium Chloride 1,000 ml @ 50 mls/hr Q20H IV 09/26/20 11:15 10/26/20 11:14 09/29/20 19:39 Zinc Sulfate (Zinc Sulfate) 220 mg DAILY ORAL 09/20/20 09:00 09/30/20 08:59 09/29/20 09:21 Last 24 Hour Vital Signs Date Time Temp Pulse Resp B/P (MAP) Pulse Ox O2 Delivery O2 Flow Rate FiO2 09/30/20 04:00 Mechanical Ventilator 09/30/20 04:00 83 09/30/20 04:00 98.1 85 20 126/74 (91) 100 09/30/20 04:00 30 09/30/20 03:20 77 19 30 09/30/20 00:00 30 09/30/20 00:00 97.9 69 19 119/59 (79) 100 09/30/20 00:00 Mechanical Ventilator 09/30/20 00:00 70 09/29/20 23:01 68 19 30 09/29/20 20:00 Mechanical Ventilator 09/29/20 20:00 72 09/29/20 20:00 30 09/29/20 20:00 99.5 71 18 118/58 (78) 100 09/29/20 19:48 66 19 30 09/29/20 16:00 98.8 70 18 109/60 (76) 100 09/29/20 16:00 30 09/29/20 16:00 Mechanical Ventilator 09/29/20 14:00 68 09/29/20 13:15 67 15 30 09/29/20 12:00 98.2 72 18 110/53 (72) 100 09/29/20 12:00 64 09/29/20 11:57 Mechanical Ventilator 09/29/20 11:56 30 09/29/20 08:00 Mechanical Ventilator 09/29/20 08:00 30 09/29/20 08:00 65 09/29/20 08:00 98.4 75 18 128/67 (87) 100 09/29/20 06:40 67 17 30 09/29/20 04:00 97.7 64 16 117/59 (78) 100 09/29/20 04:00 30 09/29/20 04:00 Mechanical Ventilator Mechanical Ventilator 09/29/20 04:00 66 09/29/20 01:02 66 17 30 09/29/20 00:04 Mechanical Ventilator Mechanical Ventilator 09/29/20 00:00 69 09/29/20 00:00 98.1 64 17 110/50 (70) 100 09/28/20 20:00 61 09/28/20 20:00 98.0 75 18 104/43 (63) 99 09/28/20 20:00 Mechanical Ventilator Mechanical Ventilator 09/28/20 20:00 30 09/28/20 19:30 60 15 30 09/28/20 16:00 62 09/28/20 16:00 Mechanical Ventilator 09/28/20 16:00 30 09/28/20 15:40 97.7 67 18 118/59 (78) 99 09/28/20 15:35 68 19 30 09/28/20 12:30 Mechanical Ventilator 09/28/20 12:00 30 09/28/20 12:00 73 09/28/20 11:56 97.9 76 16 140/89 (106) 100 09/28/20 11:00 54 12 30 09/28/20 08:00 30 09/28/20 08:00 97.9 60 16 131/62 (85) 100 09/28/20 08:00 Mechanical Ventilator Mechanical Ventilator 09/28/20 07:46 58 09/28/20 07:10 56 14 30 Intake and Output 09/29/20 09/30/20 19:00 07:00 Intake Total 1250 ml 1080 ml Balance 1250 ml 1080 ml Free Water 150 ml 130 ml IV Total 550 ml 400 ml Tube Feeding 550 ml 550 ml # Voids 4 3 Labs Test 09/27/20 23:15 09/28/20 03:41 09/28/20 05:34 09/28/20 13:46 POC Whole Blood Glucose 95 MG/DL (74-106) 101 MG/DL (74-106) 82 MG/DL (74-106) White Blood Count 17.1 K/UL (4.8-10.8) Red Blood Count 3.42 M/UL (4.20-5.40) Hemoglobin 10.7 G/DL (12.0-16.0) Hematocrit 33.4 % (37.0-47.0) Mean Corpuscular Volume 98 FL (80-99) Mean Corpuscular Hemoglobin 31.1 PG (27.0-31.0) Mean Corpuscular Hemoglobin Concent 31.9 G/DL (32.0-36.0) Red Cell Distribution Width 16.5 % (11.6-14.8) Platelet Count 214 K/UL (150-450) Mean Platelet Volume 9.4 FL (6.5-10.1) Neutrophils (%) (Auto) % (45.0-75.0) Lymphocytes (%) (Auto) % (20.0-45.0) Monocytes (%) (Auto) % (1.0-10.0) Eosinophils (%) (Auto) % (0.0-3.0) Basophils (%) (Auto) % (0.0-2.0) Differential Total Cells Counted 100 Neutrophils % (Manual) 34 % (45-75) Lymphocytes % (Manual) 10 % (20-45) Monocytes % (Manual) 6 % (1-10) Eosinophils % (Manual) 49 % (0-3) Basophils % (Manual) 0 % (0-2) Band Neutrophils 1 % (0-8) Platelet Estimate Adequate Platelet Morphology Normal Hypochromasia 1+ Anisocytosis 1+ Test 09/28/20 15:50 09/28/20 23:41 09/29/20 03:35 09/29/20 05:27 POC Whole Blood Glucose 81 MG/DL (74-106) 91 MG/DL (74-106) 92 MG/DL (74-106) White Blood Count 18.6 K/UL (4.8-10.8) Red Blood Count 3.28 M/UL (4.20-5.40) Hemoglobin 10.5 G/DL (12.0-16.0) Hematocrit 33.3 % (37.0-47.0) Mean Corpuscular Volume 102 FL (80-99) Mean Corpuscular Hemoglobin 31.9 PG (27.0-31.0) Mean Corpuscular Hemoglobin Concent 31.4 G/DL (32.0-36.0) Red Cell Distribution Width 16.6 % (11.6-14.8) Platelet Count 166 K/UL (150-450) Mean Platelet Volume 7.7 FL (6.5-10.1) Neutrophils (%) (Auto) % (45.0-75.0) Lymphocytes (%) (Auto) % (20.0-45.0) Monocytes (%) (Auto) % (1.0-10.0) Eosinophils (%) (Auto) % (0.0-3.0) Basophils (%) (Auto) % (0.0-2.0) Differential Total Cells Counted 100 Neutrophils % (Manual) 42 % (45-75) Lymphocytes % (Manual) 12 % (20-45) Monocytes % (Manual) 6 % (1-10) Eosinophils % (Manual) 40 % (0-3) Basophils % (Manual) 0 % (0-2) Band Neutrophils 0 % (0-8) Platelet Estimate Adequate Platelet Morphology Normal Hypochromasia 1+ Anisocytosis 1+ Macrocytosis 1+ Sodium Level 139 MMOL/L (136-145) Potassium Level 4.9 MMOL/L (3.5-5.1) Chloride Level 108 MMOL/L (98-107) Carbon Dioxide Level 30 MMOL/L (21-32) Anion Gap 1 mmol/L (5-15) Blood Urea Nitrogen 24 mg/dL (7-18) Creatinine 0.5 MG/DL (0.55-1.30) Estimat Glomerular Filtration Rate > 60 mL/min (>60) Glucose Level 102 MG/DL (74-106) Calcium Level 9.5 MG/DL (8.5-10.1) Phosphorus Level 2.0 MG/DL (2.5-4.9) Magnesium Level 2.1 MG/DL (1.8-2.4) Total Bilirubin 0.5 MG/DL (0.2-1.0) Aspartate Amino Transf (AST/SGOT) 25 U/L (15-37) Alanine Aminotransferase (ALT/SGPT) 18 U/L (12-78) Alkaline Phosphatase 358 U/L (46-116) Total Protein 7.4 G/DL (6.4-8.2) Albumin 2.4 G/DL (3.4-5.0) Globulin 5.0 g/dL Albumin/Globulin Ratio 0.5 (1.0-2.7) Test 09/30/20 03:40 White Blood Count 17.9 K/UL (4.8-10.8) Red Blood Count 3.24 M/UL (4.20-5.40) Hemoglobin 10.2 G/DL (12.0-16.0) Hematocrit 33.0 % (37.0-47.0) Mean Corpuscular Volume 102 FL (80-99) Mean Corpuscular Hemoglobin 31.6 PG (27.0-31.0) Mean Corpuscular Hemoglobin Concent 31.0 G/DL (32.0-36.0) Red Cell Distribution Width 16.3 % (11.6-14.8) Platelet Count 254 K/UL (150-450) Mean Platelet Volume 7.9 FL (6.5-10.1) Neutrophils (%) (Auto) % (45.0-75.0) Lymphocytes (%) (Auto) % (20.0-45.0) Monocytes (%) (Auto) % (1.0-10.0) Eosinophils (%) (Auto) % (0.0-3.0) Basophils (%) (Auto) % (0.0-2.0) Height (Feet): 5 Height (Inches): 3.00 Weight (Pounds): 145 Objective PHYSICAL EXAMINATION: GENERAL: obtunded, oriented x1, CARDIOVASCULAR: No murmur. LUNGS: Poor air exchange.+vent/trach ABDOMEN: Bowel sounds distant.++peg EXTREMITIES: No cyanosis, clubbing, or edema NEUROLOGIC: Neck, weakness as well leaning forward.bedbound++ Alan Cazares MD Sep 30, 2020 06:28
--- NOTE | 2020-09-30 07:30 | NUR ---
NURSE HAND-OFF REPORT: Important Events on Shift:N Patient Status: Full code Diet: Glucerna 1.2 @ 50cc/hr Pending Orders: N Pending Results/Labs:N Pending MD notification:N Latest Vital Signs: Temperature 98.1 , Pulse 83 , B/P 126 /74 , Respiratory Rate 20 , O2 SAT 100 , Mechanical Ventilator, O2 Flow Rate 50.0 . Vital Sign Comment: stable EKG Rhythm: Sinus Rhythm Rhythm change?: N MD Notified?: - MD Response: Latest [place] Fall Score: 50 Fall Risk: High Risk Safety Measures: Call light Within Reach, Bed Alarm Zone 2, Side Rails Side Rails x3, Bed position Low and Locked. Fall Precautions: Yellow Socks Yellow Gown Door Sign Report given to hussein Shelley RN.
--- NOTE | 2020-09-30 07:31 | NUR ---
NURSE NOTES: Received patient in bed awake. With trache to mech vent, no acute distress. IV lines intact. Rectal tube in place. Purewick in place. SCD's in place. Gtube intact, feeding ongoing. HOB elevated. Bed locked in low position. Call light within reach. Will continue plan of care.
[2020-09-30 08:00] VITALS: BP 132/69
[2020-09-30] MEDS: Ascorbic Acid 500mg tab ORAL SCH ×2 (08:33→17:38)
[2020-09-30] MEDS: Pantoprazole Inj IVP SCH ×2 (08:33→21:07)
[2020-09-30] MEDS ORDERED: Meropenem 1 GM in NS 55 ML IVPB SCH (09:00)
--- NOTE | 2020-09-30 11:35 | Pulmonology Progress Note ---
Subjective ROS Limited/Unobtainable: Yes Interval Events: None new Constitutional: Denies: fever HEENT: Repors: no symptoms Respiratory: Reports: no symptoms Cardiovascular: Reports: no symptoms Gastrointestinal/Abdominal: Denies: diarrhea Genitourinary: Reports: no symptoms Allergies: Coded Allergies: No Known Allergies (Unverified , 11/22/15) All Systems: reviewed and negative except above Objective Last 24 Hour Vital Signs Date Time Temp Pulse Resp B/P (MAP) Pulse Ox O2 Delivery O2 Flow Rate FiO2 09/30/20 08:00 75 09/30/20 08:00 Mechanical Ventilator 09/30/20 08:00 97.7 77 20 132/69 (90) 100 09/30/20 08:00 30 09/30/20 07:02 66 18 30 09/30/20 04:00 Mechanical Ventilator 09/30/20 04:00 83 09/30/20 04:00 98.1 85 20 126/74 (91) 100 09/30/20 04:00 30 09/30/20 03:20 77 19 30 09/30/20 00:00 30 09/30/20 00:00 97.9 69 19 119/59 (79) 100 09/30/20 00:00 Mechanical Ventilator 09/30/20 00:00 70 09/29/20 23:01 68 19 30 09/29/20 20:00 Mechanical Ventilator 09/29/20 20:00 72 09/29/20 20:00 30 09/29/20 20:00 99.5 71 18 118/58 (78) 100 09/29/20 19:48 66 19 30 09/29/20 16:00 98.8 70 18 109/60 (76) 100 09/29/20 16:00 30 09/29/20 16:00 Mechanical Ventilator 09/29/20 14:00 68 09/29/20 13:15 67 15 30 09/29/20 12:00 98.2 72 18 110/53 (72) 100 09/29/20 12:00 64 09/29/20 11:57 Mechanical Ventilator 09/29/20 11:56 30 Intake and Output 09/29/20 09/30/20 19:00 07:00 Intake Total 1250 ml 1080 ml Balance 1250 ml 1080 ml Free Water 150 ml 130 ml IV Total 550 ml 400 ml Tube Feeding 550 ml 550 ml # Voids 4 3 Objective saturating well on current vent setting General Appearance: no acute distress HEENT: normocephalic, atraumatic, status post trach Respiratory: chest wall non-tender, lungs clear, other - coarse rhonchi Cardiovascular: normal rate, regular rhythm Abdomen: normal bowel sounds, distended Laboratory Tests 09/30/20 03:40: White Blood Count 17.9H, Red Blood Count 3.24L, Hemoglobin 10.2L, Hematocrit 33.0L, Mean Corpuscular Volume 102H, Mean Corpuscular Hemoglobin 31.6H, Mean Corpuscular Hemoglobin Concent 31.0L, Red Cell Distribution Width 16.3H, Platelet Count 254#, Mean Platelet Volume 7.9, Neutrophils (%) (Auto) , Lymphocytes (%) (Auto) , Monocytes (%) (Auto) , Eosinophils (%) (Auto) , Basophils (%) (Auto) , Differential Total Cells Counted 100, Neutrophils % (Manual) 37L, Lymphocytes % (Manual) 9L, Monocytes % (Manual) 9, Eosinophils % (Manual) 44H, Basophils % (Manual) 1, Band Neutrophils 0, Platelet Estimate Adequate, Platelet Morphology Normal, Hypochromasia 1+, Anisocytosis 1+, Macrocytosis 1+, Sodium Level 139, Potassium Level 4.9, Chloride Level 108H, Carbon Dioxide Level 27, Anion Gap 4L, Blood Urea Nitrogen 22H, Creatinine 0.5L, Estimat Glomerular Filtration Rate > 60, Glucose Level 93, Calcium Level 8.9, Total Bilirubin 0.5, Aspartate Amino Transf (AST/SGOT) 23, Alanine Aminotransferase (ALT/SGPT) 19, Alkaline Phosphatase 359H, Total Protein 7.3, Albumin 2.4L, Globulin 4.9, Albumin/Globulin Ratio 0.5L Current Medications Medications (Trade) Dose Ordered Sig/Alex Route PRN Reason Start Time Stop Time Status Last Admin Dose Admin Acetaminophen (Tylenol) 500 mg Q4H PRN ORAL Mild Pain (Pain Scale 1-3) 09/15/20 23:15 10/15/20 23:14 09/23/20 16:49 Acetaminophen (Tylenol) 500 mg Q4H PRN ORAL Temp >100.5 09/15/20 23:15 10/15/20 23:14 09/24/20 16:19 Ascorbic Acid (Vitamin C) 250 mg TWICE A DAY ORAL 09/19/20 18:00 10/19/20 17:59 09/30/20 08:33 Barium Sulfate (Readi-Cat 2) 450 ml NOW PRN ORAL Radiology Procedure 09/29/20 19:00 10/01/20 18:59 Hydralazine HCl (Apresoline) 10 mg Q2H PRN IV For High Blood Pressure 09/17/20 17:00 12/16/20 16:59 Iohexol (OMNIPAQUE-300 100ml) 100 ml NOW PRN INJ Radiology Procedure 09/29/20 19:00 10/01/20 18:59 Levothyroxine Sodium (Synthroid) 50 mcg DAILY IV 09/26/20 13:00 10/26/20 12:59 09/30/20 08:34 Multivitamins (Multivitamins) 1 tab DAILY ORAL 09/20/20 09:00 10/20/20 08:59 09/30/20 08:33 Pantoprazole (Protonix) 40 mg EVERY 12 HOURS IVP 09/17/20 14:15 10/17/20 14:14 09/30/20 08:33 Sodium Chloride 1,000 ml @ 50 mls/hr Q20H IV 09/26/20 11:15 10/26/20 11:14 09/29/20 19:39 Assessment/Plan Assessment/Plan 1. Anemia, likely iron deficiency. - s/p IV iron. - s/p transfusion per Dr. Cazares. 2. Interstitial infiltrates, has pneumonia. - Sputum -> Serratia - Antibiotics per ID. - Continue supplemental oxygen; continue ventilator, AC mode.FiO2 30% 3. Sepsis. - Antibiotics per ID. Gm neg rods in sputum CS; confirmed Serratia 4. History of fever. - Currently afebrile. 5. Possible COVID-19 infection. - Swab COVID-19 test negative. - Repeat PCR COVID-19 also negative 6. CHF. - 2D echocardiogram ordered per Cardio. 7. UTI. - On antibiotics. Has ESBL E. Coli 8. Elevated D-dimer. 9. DVT prophylaxis. - Venous duplex ultrasound negative. - on SCD 10. Chronic Respiratory Failure; continue vent; AC mode 11. Rising alk phos - CT abd showed stones in ureter and renal pelvis - management per GI The care for this patient was discussed with my supervising physician Time spent for this case was approximately 31 minutes Uriel Díaz Sep 30, 2020 11:35 Mino Childs MD Sep 30, 2020 15:29
[2020-09-30 12:00] VITALS: BP 113/51
--- NOTE | 2020-09-30 13:17 | Infectious Diseases Prog Note ---
Assessment/Plan Assessment/Plan IMPRESSION: Fever resolved Eosinophilia & rash VRE sepsis ( Amp sensitive) Positive blood culture with Staph Hemolyticus likely contamination Serratia, Pseudomonas & Stenotrophomonas pneumonia, E coli UTI, Ventilator-dependent respiratory failure, Quadriplegia, Stage IV sacral ulcer, COPD, Iron deficiency anemia, Hypertension, history of atrial fibrillation. Negative COVI19 tests ? scabies, received Ivermectin RECOMMENDATION: Plan per account support manager, F/U CBC Subjective ROS Limited/Unobtainable: Yes Constitutional: Denies: fever Allergies: Coded Allergies: No Known Allergies (Unverified , 11/22/15) Objective Last 24 Hour Vital Signs Date Time Temp Pulse Resp B/P (MAP) Pulse Ox O2 Delivery O2 Flow Rate FiO2 09/30/20 11:18 72 16 30 09/30/20 08:00 75 09/30/20 08:00 Mechanical Ventilator 09/30/20 08:00 97.7 77 20 132/69 (90) 100 09/30/20 08:00 30 09/30/20 07:02 66 18 30 09/30/20 04:00 Mechanical Ventilator 09/30/20 04:00 83 09/30/20 04:00 98.1 85 20 126/74 (91) 100 09/30/20 04:00 30 09/30/20 03:20 77 19 30 09/30/20 00:00 30 09/30/20 00:00 97.9 69 19 119/59 (79) 100 09/30/20 00:00 Mechanical Ventilator 09/30/20 00:00 70 09/29/20 23:01 68 19 30 09/29/20 20:00 Mechanical Ventilator 09/29/20 20:00 72 09/29/20 20:00 30 09/29/20 20:00 99.5 71 18 118/58 (78) 100 09/29/20 19:48 66 19 30 09/29/20 16:00 98.8 70 18 109/60 (76) 100 09/29/20 16:00 30 09/29/20 16:00 Mechanical Ventilator 09/29/20 14:00 68 09/29/20 13:15 67 15 30 Height (Feet): 5 Height (Inches): 3.00 Weight (Pounds): 145 HEENT: status post trach Respiratory/Chest: decreased breath sounds, other - on ventilator Cardiovascular: normal rate Abdomen: soft, non tender, other - GT feeding Extremities: other - dependendent edema Skin: rash Neurologic/Psychiatric: other - opens eyes Laboratory Tests Test 09/29/20 17:52 09/30/20 00:40 09/30/20 03:40 09/30/20 06:16 POC Whole Blood Glucose 94 MG/DL (74-106) 72 MG/DL (74-106) L 87 MG/DL (74-106) White Blood Count 17.9 K/UL (4.8-10.8) H Red Blood Count 3.24 M/UL (4.20-5.40) L Hemoglobin 10.2 G/DL (12.0-16.0) L Hematocrit 33.0 % (37.0-47.0) L Mean Corpuscular Volume 102 FL (80-99) H Mean Corpuscular Hemoglobin 31.6 PG (27.0-31.0) H Mean Corpuscular Hemoglobin Concent 31.0 G/DL (32.0-36.0) L Red Cell Distribution Width 16.3 % (11.6-14.8) H Platelet Count 254 K/UL (150-450) # Mean Platelet Volume 7.9 FL (6.5-10.1) Neutrophils (%) (Auto) % (45.0-75.0) Lymphocytes (%) (Auto) % (20.0-45.0) Monocytes (%) (Auto) % (1.0-10.0) Eosinophils (%) (Auto) % (0.0-3.0) Basophils (%) (Auto) % (0.0-2.0) Differential Total Cells Counted 100 Neutrophils % (Manual) 37 % (45-75) L Lymphocytes % (Manual) 9 % (20-45) L Monocytes % (Manual) 9 % (1-10) Eosinophils % (Manual) 44 % (0-3) H Basophils % (Manual) 1 % (0-2) Band Neutrophils 0 % (0-8) Platelet Estimate Adequate Platelet Morphology Normal Hypochromasia 1+ Anisocytosis 1+ Macrocytosis 1+ Sodium Level 139 MMOL/L (136-145) Potassium Level 4.9 MMOL/L (3.5-5.1) Chloride Level 108 MMOL/L (98-107) H Carbon Dioxide Level 27 MMOL/L (21-32) Anion Gap 4 mmol/L (5-15) L Blood Urea Nitrogen 22 mg/dL (7-18) H Creatinine 0.5 MG/DL (0.55-1.30) L Estimat Glomerular Filtration Rate > 60 mL/min (>60) Glucose Level 93 MG/DL (74-106) Calcium Level 8.9 MG/DL (8.5-10.1) Total Bilirubin 0.5 MG/DL (0.2-1.0) Aspartate Amino Transf (AST/SGOT) 23 U/L (15-37) Alanine Aminotransferase (ALT/SGPT) 19 U/L (12-78) Alkaline Phosphatase 359 U/L (46-116) H Total Protein 7.3 G/DL (6.4-8.2) Albumin 2.4 G/DL (3.4-5.0) L Globulin 4.9 g/dL Albumin/Globulin Ratio 0.5 (1.0-2.7) L Test 09/30/20 12:12 POC Whole Blood Glucose 101 MG/DL (74-106) Current Medications Medications (Trade) Dose Ordered Sig/Alex Route PRN Reason Start Time Stop Time Status Last Admin Dose Admin Acetaminophen (Tylenol) 500 mg Q4H PRN ORAL Mild Pain (Pain Scale 1-3) 09/15/20 23:15 10/15/20 23:14 09/23/20 16:49 Acetaminophen (Tylenol) 500 mg Q4H PRN ORAL Temp >100.5 09/15/20 23:15 10/15/20 23:14 09/24/20 16:19 Ascorbic Acid (Vitamin C) 250 mg TWICE A DAY ORAL 09/19/20 18:00 10/19/20 17:59 09/30/20 08:33 Barium Sulfate (Readi-Cat 2) 450 ml NOW PRN ORAL Radiology Procedure 09/29/20 19:00 10/01/20 18:59 Hydralazine HCl (Apresoline) 10 mg Q2H PRN IV For High Blood Pressure 09/17/20 17:00 12/16/20 16:59 Iohexol (OMNIPAQUE-300 100ml) 100 ml NOW PRN INJ Radiology Procedure 09/29/20 19:00 10/01/20 18:59 Levothyroxine Sodium (Synthroid) 50 mcg DAILY IV 09/26/20 13:00 10/26/20 12:59 09/30/20 08:34 Multivitamins (Multivitamins) 1 tab DAILY ORAL 09/20/20 09:00 10/20/20 08:59 09/30/20 08:33 Pantoprazole (Protonix) 40 mg EVERY 12 HOURS IVP 09/17/20 14:15 10/17/20 14:14 09/30/20 08:33 Sodium Chloride 1,000 ml @ 50 mls/hr Q20H IV 09/26/20 11:15 10/26/20 11:14 09/29/20 19:39 Mahesh Nicole MD Sep 30, 2020 13:17
--- NOTE | 2020-09-30 13:24 | Surgery Progress Note ---
Surgery Progress Note Subjective Additional Comments ct reviewed no n/v labs noted ill appearing Objective Last 24 Hour Vital Signs Date Time Temp Pulse Resp B/P (MAP) Pulse Ox O2 Delivery O2 Flow Rate FiO2 09/30/20 12:00 98.1 74 18 113/51 (71) 100 09/30/20 11:18 72 16 30 09/30/20 08:00 75 09/30/20 08:00 Mechanical Ventilator 09/30/20 08:00 97.7 77 20 132/69 (90) 100 09/30/20 08:00 30 09/30/20 07:02 66 18 30 09/30/20 04:00 Mechanical Ventilator 09/30/20 04:00 83 09/30/20 04:00 98.1 85 20 126/74 (91) 100 09/30/20 04:00 30 09/30/20 03:20 77 19 30 09/30/20 00:00 30 09/30/20 00:00 97.9 69 19 119/59 (79) 100 09/30/20 00:00 Mechanical Ventilator 09/30/20 00:00 70 09/29/20 23:01 68 19 30 09/29/20 20:00 Mechanical Ventilator 09/29/20 20:00 72 09/29/20 20:00 30 09/29/20 20:00 99.5 71 18 118/58 (78) 100 09/29/20 19:48 66 19 30 09/29/20 16:00 98.8 70 18 109/60 (76) 100 09/29/20 16:00 30 09/29/20 16:00 Mechanical Ventilator 09/29/20 14:00 68 I&O Intake and Output 09/29/20 09/30/20 19:00 07:00 Intake Total 1250 ml 1080 ml Balance 1250 ml 1080 ml Free Water 150 ml 130 ml IV Total 550 ml 400 ml Tube Feeding 550 ml 550 ml # Voids 4 3 Dressing: saturated Cardiovascular: RSR Respiratory: decreased breath sounds Abdomen: soft, non-tender, present bowel sounds, non-distended Extremities: no tenderness, no cyanosis Laboratory Tests Test 09/29/20 17:52 09/30/20 00:40 09/30/20 03:40 09/30/20 06:16 POC Whole Blood Glucose 94 MG/DL (74-106) 72 MG/DL (74-106) L 87 MG/DL (74-106) White Blood Count 17.9 K/UL (4.8-10.8) H Red Blood Count 3.24 M/UL (4.20-5.40) L Hemoglobin 10.2 G/DL (12.0-16.0) L Hematocrit 33.0 % (37.0-47.0) L Mean Corpuscular Volume 102 FL (80-99) H Mean Corpuscular Hemoglobin 31.6 PG (27.0-31.0) H Mean Corpuscular Hemoglobin Concent 31.0 G/DL (32.0-36.0) L Red Cell Distribution Width 16.3 % (11.6-14.8) H Platelet Count 254 K/UL (150-450) # Mean Platelet Volume 7.9 FL (6.5-10.1) Neutrophils (%) (Auto) % (45.0-75.0) Lymphocytes (%) (Auto) % (20.0-45.0) Monocytes (%) (Auto) % (1.0-10.0) Eosinophils (%) (Auto) % (0.0-3.0) Basophils (%) (Auto) % (0.0-2.0) Differential Total Cells Counted 100 Neutrophils % (Manual) 37 % (45-75) L Lymphocytes % (Manual) 9 % (20-45) L Monocytes % (Manual) 9 % (1-10) Eosinophils % (Manual) 44 % (0-3) H Basophils % (Manual) 1 % (0-2) Band Neutrophils 0 % (0-8) Platelet Estimate Adequate Platelet Morphology Normal Hypochromasia 1+ Anisocytosis 1+ Macrocytosis 1+ Sodium Level 139 MMOL/L (136-145) Potassium Level 4.9 MMOL/L (3.5-5.1) Chloride Level 108 MMOL/L (98-107) H Carbon Dioxide Level 27 MMOL/L (21-32) Anion Gap 4 mmol/L (5-15) L Blood Urea Nitrogen 22 mg/dL (7-18) H Creatinine 0.5 MG/DL (0.55-1.30) L Estimat Glomerular Filtration Rate > 60 mL/min (>60) Glucose Level 93 MG/DL (74-106) Calcium Level 8.9 MG/DL (8.5-10.1) Total Bilirubin 0.5 MG/DL (0.2-1.0) Aspartate Amino Transf (AST/SGOT) 23 U/L (15-37) Alanine Aminotransferase (ALT/SGPT) 19 U/L (12-78) Alkaline Phosphatase 359 U/L (46-116) H Total Protein 7.3 G/DL (6.4-8.2) Albumin 2.4 G/DL (3.4-5.0) L Globulin 4.9 g/dL Albumin/Globulin Ratio 0.5 (1.0-2.7) L Test 09/30/20 12:12 POC Whole Blood Glucose 101 MG/DL (74-106) Plan Problems: (1) Pneumonia (2) Functional quadriplegia (3) Person under investigation for COVID-19 (4) Chronic respiratory failure (5) Dehydration (6) Hypernatremia (7) Hypothyroidism (8) Pyelonephritis (9) Protein calorie malnutrition Assessment & Plan: DAILY ESTIMATED NEEDS: Needs based on Wound, critical care 57.5kg abw 25-30 kcals/kg 5438-1849 total kcals 1.25-2 g protein/kg 72-115 g total protein 25-30 mL/kg 9996-5797 total fluid mLs NUTRITION DIAGNOSIS: * Increased kcal/prot needs R/T wound healing as evidenced by pt w/ h/o stage 4 sacral wound, eval is pending. * Swallowing difficulty R/T dysphagia, respiratory status as evidenced by pt is Trach and PEG dep. ENTERAL NUTRITION RECOMMENDATIONS: Glucerna 1.2 @ 55ml/hr x 24 hrs to provide 1320ml, 1584 kcal, 79g pro, 1063ml free H2O * As medically able, start Glucerna 1.2 @35ml/hr for 6 hrs, advance as tolerated q4-6 to goal. * Add TYRESE in 4oz water BID via PEG for wound healing * HOB over 30 degrees/ water flush per MD ADDITIONAL RECOMMENDATIONS: * Calibrated bedscale wt for accurate CBW * Wound healing: TYRESE BID, Vit C 250mg BID F/up w/ WC eval * Monitor lytes, replete as needed * Monitor BGs w/ TF-> bed side BG checks + NISS (10) Failure to thrive (child) (11) Sacral decubitus ulcer Assessment & Plan: Pt presented on admission with Tracheostomy, GT, and multiple Pressure injuries. No erythema or evidence of skin breakdown under tracheal collar. dry dark brown skin plaque noted at R lateral chest to R flank. Full thickness stage 4 Sacral Pressure Injury with undermined borders(L)2cm x (W)2cm x (D)2cm, undermining clockwise 11-3 by 2.3cm @3o'clock.Ability to accurately assess base of wound is not fully appreciated secondary to shape of wound. (+) Epibole along edges of wound. Silver Nitrate sticks application applied to Borders. Bone is palpable when probed.Small amt brown exudate noted. No odor noted. Lamont Atrophic scar periwound. Resolving Pressure Injury R Ischium. Lamont epithelial noted at base of wound. Intact serous Blister noted to monica/upper L thigh. No erythema or changes in skin temp at affected site. Reabsorbing DTPI L Hallux. Base of Pressure injury is dark brown,dry without erythema,induration or fluctuance. L Heel is boggy with non-blanchable erythema. R Heel is boggy but blanchable. Tx.Plan: Cleanse Sacral wound with Saline. Loosely pack with Therahoney impregnated Kerlix.Apply Moisture Barrier Paste periwound. Cover with Optifoam drsg every 3 days and prn. Apply Moisture Barrier Paste to R Ischium. Cover with Optifoam drsg. Change every 3 days and prn. Apply Phytoplex Skin Nourishing lotion to Lateral R chest /R Flank Daily. Apply Cavilon Skin Barrier to R and L Heel. Cover each heel with Optifoam drsg.Change every 7 days and prn. Reposition at least every 2hours or as tolerated. Off-load heels with pillow. 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 No mass. Gallbladder and bile ducts: Unremarkable. No calcified stones. No ductal dilation. Pancreas: Unremarkable. No mass. No ductal dilation. Spleen: Unremarkable. No splenomegaly. Adrenals: Unremarkable. No mass. Kidneys and ureters: There are at least 4 stones identified in the distal right ureter with mild right hydronephrosis and hydroureter. The largest, most distal stone, just proximal to the UVJ measures 12 x 6 mm. There are two 2-3 mm stones in the more proximal ureter as well as a fourth stone measuring 13 x 7 mm. There is a nonobstructing stone in the right renal pelvis measuring 13 x 14 mm as well as a stone in the right lower pole calyx measuring 11 x 7 mm. There are multiple nonobstructing left renal stones ranging from 3-10 mm in diameter. No left hydronephrosis identified. Stomach and bowel: Unremarkable. No obstruction. No mucosal thickening. PELVIS: Appendix: No findings to suggest acute appendicitis. Bladder: Unremarkable. No mass. Reproductive: Unremarkable as visualized. ABDOMEN and PELVIS: Intraperitoneal space: Unremarkable. No free air. No significant fluid collection. Bones/joints: No acute fracture. No dislocation. Soft tissues: Unremarkable. Vasculature: Unremarkable. No abdominal aortic aneurysm. Lymph nodes: Unremarkable. No enlarged lymph nodes. Tubes, lines and devices: There is a gastrostomy tube in good position. IMPRESSION: 1. There are at least 4 stones identified in the distal right ureter with mild right hydronephrosis and hydroureter. The largest, most distal stone, just proximal to the UVJ measures 12 x 6 mm. There are two 2-3 mm stones in the more proximal ureter as well as a fourth stone measuring 13 x 7 mm. 2. There is a nonobstructing stone in the right renal pelvis measuring 13 x 14 mm as well as a stone in the right lower pole calyx measuring 11 x 7 mm. (14) UTI (urinary tract infection) (15) Anemia (16) Dysphagia (17) Hypoalbuminemia (18) Iron deficiency (19) At high risk for aspiration (20) Parkinson disease (21) Dementia (22) Elevated CEA (23) Paroxysmal A-fib (24) Pancytopenia (25) Hypothyroidism (26) Electrolyte imbalance Holland Petty Sep 30, 2020 13:24
--- NOTE | 2020-09-30 13:59 | NUR ---
CASE MANAGEMENT: REVIEW 09/30/2020 SI:SEPSIS. VS: T 98.1 HR 74 RR 18 B/P 113/51 SATS 100% ON MECH VENT FIO2 30 LABS: WBC 17.9 CL 108 BUN 22 CR 0.5 ALP 359 IS:NS @ 50 ML/HR PROTONIX IV Q12H SDU
--- NOTE | 2020-09-30 14:39 | Cardiac Electrophysiology PN ---
Assessment/Plan Assessment/Plan 1. Hypertension, currently blood pressure stable. On p.r.n. Hydralazine and clonidine 2. VDRF status post tracheostomy on 30% FiO2, in sinus rhythm. COVID was negative. 3. Severe anemia, hemoglobin 7.5. S/P blood transfusion. Etiology is not clear at this time, but creatinine is within normal range. 4. Elevated BNP of more than 4000. Echo EF 65% 5. Dysphagia, status post PEG replacement 09/22/20. 6. VRE sepsis ( Amp sensitive), Gram positive bacteremia, Pseudomonas pneumonia, E coli UTI, on iv Abx per ID WBC 17K 7. Sacral Decubitus 8. Multiple ureteral stone. There are at least 4 stones identified in the distal right ureter with mild right hydronephrosis and hydroureter. The largest, most distal stone, just proximal to the UVJ measures 12 x 6 mm. There are two 2-3 mm stones in the more proximal ureter as well as a fourth stone measuring 13 x 7 mm. There is a nonobstructing stone in the right renal pelvis measuring 13 x 14 mm as well as a stone in the right lower pole calyx measuring 11 x 7 mm. DW RN Subjective Subjective Off covid isolation. GT replaced 09/22/20 On the Vent with 30% Fio2 off restraints.In SR on iv ABx Had dilcia in [address] CT abdomen that showed 1. There are at least 4 stones identified in the distal right ureter with mild right hydronephrosis and hydroureter. The largest, most distal stone, just proximal to the UVJ measures 12 x 6 mm. There are two 2-3 mm stones in the more proximal ureter as well as a fourth stone measuring 13 x 7 mm. 2. There is a nonobstructing stone in the right renal pelvis measuring 13 x 14 mm as well as a stone in the right lower pole calyx measuring 11 x 7 mm. Objective Last 24 Hour Vital Signs Date Time Temp Pulse Resp B/P (MAP) Pulse Ox O2 Delivery O2 Flow Rate FiO2 09/30/20 12:00 98.1 74 18 113/51 (71) 100 09/30/20 11:18 72 16 30 09/30/20 08:00 75 09/30/20 08:00 Mechanical Ventilator 09/30/20 08:00 97.7 77 20 132/69 (90) 100 09/30/20 08:00 30 1/1/21 07:02 66 18 30 09/30/20 04:00 Mechanical Ventilator 09/30/20 04:00 83 09/30/20 04:00 98.1 85 20 126/74 (91) 100 09/30/20 04:00 30 09/30/20 03:20 77 19 30 09/30/20 00:00 30 09/30/20 00:00 97.9 69 19 119/59 (79) 100 09/30/20 00:00 Mechanical Ventilator 09/30/20 00:00 70 09/29/20 23:01 68 19 30 09/29/20 20:00 Mechanical Ventilator 09/29/20 20:00 72 09/29/20 20:00 30 09/29/20 20:00 99.5 71 18 118/58 (78) 100 09/29/20 19:48 66 19 30 09/29/20 16:00 98.8 70 18 109/60 (76) 100 09/29/20 16:00 30 09/29/20 16:00 Mechanical Ventilator Intake and Output 09/29/20 09/30/20 19:00 07:00 Intake Total 1250 ml 1080 ml Balance 1250 ml 1080 ml Free Water 150 ml 130 ml IV Total 550 ml 400 ml Tube Feeding 550 ml 550 ml # Voids 4 3 Laboratory Tests Test 09/29/20 17:52 09/30/20 00:40 09/30/20 03:40 09/30/20 06:16 POC Whole Blood Glucose 94 MG/DL (74-106) 72 MG/DL (74-106) L 87 MG/DL (74-106) White Blood Count 17.9 K/UL (4.8-10.8) H Red Blood Count 3.24 M/UL (4.20-5.40) L Hemoglobin 10.2 G/DL (12.0-16.0) L Hematocrit 33.0 % (37.0-47.0) L Mean Corpuscular Volume 102 FL (80-99) H Mean Corpuscular Hemoglobin 31.6 PG (27.0-31.0) H Mean Corpuscular Hemoglobin Concent 31.0 G/DL (32.0-36.0) L Red Cell Distribution Width 16.3 % (11.6-14.8) H Platelet Count 254 K/UL (150-450) # Mean Platelet Volume 7.9 FL (6.5-10.1) Neutrophils (%) (Auto) % (45.0-75.0) Lymphocytes (%) (Auto) % (20.0-45.0) Monocytes (%) (Auto) % (1.0-10.0) Eosinophils (%) (Auto) % (0.0-3.0) Basophils (%) (Auto) % (0.0-2.0) Differential Total Cells Counted 100 Neutrophils % (Manual) 37 % (45-75) L Lymphocytes % (Manual) 9 % (20-45) L Monocytes % (Manual) 9 % (1-10) Eosinophils % (Manual) 44 % (0-3) H Basophils % (Manual) 1 % (0-2) Band Neutrophils 0 % (0-8) Platelet Estimate Adequate Platelet Morphology Normal Hypochromasia 1+ Anisocytosis 1+ Macrocytosis 1+ Sodium Level 139 MMOL/L (136-145) Potassium Level 4.9 MMOL/L (3.5-5.1) Chloride Level 108 MMOL/L (98-107) H Carbon Dioxide Level 27 MMOL/L (21-32) Anion Gap 4 mmol/L (5-15) L Blood Urea Nitrogen 22 mg/dL (7-18) H Creatinine 0.5 MG/DL (0.55-1.30) L Estimat Glomerular Filtration Rate > 60 mL/min (>60) Glucose Level 93 MG/DL (74-106) Calcium Level 8.9 MG/DL (8.5-10.1) Total Bilirubin 0.5 MG/DL (0.2-1.0) Aspartate Amino Transf (AST/SGOT) 23 U/L (15-37) Alanine Aminotransferase (ALT/SGPT) 19 U/L (12-78) Alkaline Phosphatase 359 U/L (46-116) H Total Protein 7.3 G/DL (6.4-8.2) Albumin 2.4 G/DL (3.4-5.0) L Globulin 4.9 g/dL Albumin/Globulin Ratio 0.5 (1.0-2.7) L Test 09/30/20 12:12 POC Whole Blood Glucose 101 MG/DL (74-106) Objective HEAD AND NECK: No JVD.S/P Trach LUNGS: Coarse rhonchi. CARDIOVASCULAR: Regular S1 and S2 with no gallop. ABDOMEN: Status post PEG. EXTREMITIES: 1+ pitting edema. Flex Bess MD Sep 30, 2020 14:39
[2020-09-30 16:00] VITALS: BP 119/52
[2020-09-30] MEDS ORDERED: NS 275ml ONE (16:02)
--- NOTE | 2020-09-30 17:10 | Nephrology Progress Note ---
Assessment/Plan Problem List: (1) Electrolyte imbalance (2) Hypothyroidism (3) Functional quadriplegia (4) Sacral decubitus ulcer (5) Hypoalbuminemia (6) Anemia Assessment Unfortunate 75-year old female with chronic trach to vent is being treated for sepsis Has hyponatremia Marked elevated TSH indicative of severe hypothyroidism leading to hyponatremia Anemia Plan September 30: Labs reviewed. Renal parameters stable. Continue per consultants. September 29: Labs reviewed. Abnormal electrolytes and chemistries addressed. Continue per consultants. September 28: No CHEM panel drawn today. Medication list reviewed. Continue present management. September 27: Labs reviewed. Renal parameters stable. On intravenous Synthroid for severe hypothyroidism. Continue to monitor electrolytes and renal parameters Previously: IV Synthroid given Continue per consultants Monitor renal parameters and electrolytes Subjective ROS Limited/Unobtainable: Yes Objective Objective Last 24 Hour Vital Signs Date Time Temp Pulse Resp B/P (MAP) Pulse Ox O2 Delivery O2 Flow Rate FiO2 09/30/20 16:00 Mechanical Ventilator 09/30/20 16:00 69 09/30/20 16:00 98.4 73 19 119/52 (74) 99 09/30/20 16:00 30 09/30/20 14:31 67 16 30 09/30/20 12:00 30 09/30/20 12:00 72 09/30/20 12:00 Mechanical Ventilator 09/30/20 12:00 98.1 74 18 113/51 (71) 100 09/30/20 11:18 72 16 30 09/30/20 08:00 75 09/30/20 08:00 Mechanical Ventilator 09/30/20 08:00 97.7 77 20 132/69 (90) 100 09/30/20 08:00 30 09/30/20 07:02 66 18 30 09/30/20 04:00 Mechanical Ventilator 09/30/20 04:00 83 09/30/20 04:00 98.1 85 20 126/74 (91) 100 09/30/20 04:00 30 09/30/20 03:20 77 19 30 09/30/20 00:00 30 09/30/20 00:00 97.9 69 19 119/59 (79) 100 09/30/20 00:00 Mechanical Ventilator 09/30/20 00:00 70 09/29/20 23:01 68 19 30 09/29/20 20:00 Mechanical Ventilator 09/29/20 20:00 72 09/29/20 20:00 30 09/29/20 20:00 99.5 71 18 118/58 (78) 100 09/29/20 19:48 66 19 30 Intake and Output 0 09/29/20 09/30/20 19:00 07:00 Intake Total 1250 ml 1080 ml Balance 1250 ml 1080 ml Free Water 150 ml 130 ml IV Total 550 ml 400 ml Tube Feeding 550 ml 550 ml # Voids 4 3 Laboratory Tests 09/29/20 17:52: POC Whole Blood Glucose 94 09/30/20 00:40: POC Whole Blood Glucose 72L 09/30/20 03:40: White Blood Count 17.9H, Red Blood Count 3.24L, Hemoglobin 10.2L, Hematocrit 33.0L, Mean Corpuscular Volume 102H, Mean Corpuscular Hemoglobin 31.6H, Mean Corpuscular Hemoglobin Concent 31.0L, Red Cell Distribution Width 16.3H, Platelet Count 254#, Mean Platelet Volume 7.9, Neutrophils (%) (Auto) , Lymphocytes (%) (Auto) , Monocytes (%) (Auto) , Eosinophils (%) (Auto) , Basophils (%) (Auto) , Differential Total Cells Counted 100, Neutrophils % (Manual) 37L, Lymphocytes % (Manual) 9L, Monocytes % (Manual) 9, Eosinophils % (Manual) 44H, Basophils % (Manual) 1, Band Neutrophils 0, Platelet Estimate Adequate, Platelet Morphology Normal, Hypochromasia 1+, Anisocytosis 1+, Macrocytosis 1+, Sodium Level 139, Potassium Level 4.9, Chloride Level 108H, Carbon Dioxide Level 27, Anion Gap 4L, Blood Urea Nitrogen 22H, Creatinine 0.5L, Estimat Glomerular Filtration Rate > 60, Glucose Level 93, Calcium Level 8.9, Total Bilirubin 0.5, Aspartate Amino Transf (AST/SGOT) 23, Alanine Aminotransferase (ALT/SGPT) 19, Alkaline Phosphatase 359H, Total Protein 7.3, Albumin 2.4L, Globulin 4.9, Albumin/Globulin Ratio 0.5L 09/30/20 06:16: POC Whole Blood Glucose 87 09/30/20 12:12: POC Whole Blood Glucose 101 Height (Feet): 5 Height (Inches): 3.00 Weight (Pounds): 145 General Appearance: no apparent distress EENT: other - Trach to vent Cardiovascular: normal rate Respiratory/Chest: decreased breath sounds Abdomen: distended Dante Chau MD Sep 30, 2020 17:10
--- NOTE | 2020-09-30 19:21 | General Progress Note ---
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 There are at least 4 stones identified in the distal right ureter with mild right hydronephrosis and hydroureter. The largest, most distal stone, just proximal to the UVJ measures 12 x 6 mm. There are two 2-3 mm stones in the more proximal ureter as well as a fourth stone measuring 13 x 7 mm. 2. There is a nonobstructing stone in the right renal pelvis measuring 13 x 14 mm as well as a stone in the right lower pole calyx measuring 11 x 7 mm. Objective Last 24 Hour Vital Signs Date Time Temp Pulse Resp B/P (MAP) Pulse Ox O2 Delivery O2 Flow Rate FiO2 09/30/20 18:59 74 18 30 09/30/20 16:00 Mechanical Ventilator 09/30/20 16:00 69 09/30/20 16:00 98.4 73 19 119/52 (74) 99 09/30/20 16:00 30 09/30/20 14:31 67 16 30 09/30/20 12:00 30 09/30/20 12:00 72 09/30/20 12:00 Mechanical Ventilator 09/30/20 12:00 98.1 74 18 113/51 (71) 100 09/30/20 11:18 72 16 30 09/30/20 08:00 75 09/30/20 08:00 Mechanical Ventilator 09/30/20 08:00 97.7 77 20 132/69 (90) 100 09/30/20 08:00 30 09/30/20 07:02 66 18 30 09/30/20 04:00 Mechanical Ventilator 09/30/20 04:00 83 09/30/20 04:00 98.1 85 20 126/74 (91) 100 09/30/20 04:00 30 09/30/20 03:20 77 19 30 09/30/20 00:00 30 09/30/20 00:00 97.9 69 19 119/59 (79) 100 09/30/20 00:00 Mechanical Ventilator 09/30/20 00:00 70 09/29/20 23:01 68 19 30 09/29/20 20:00 Mechanical Ventilator 09/29/20 20:00 72 12/31/20 20:00 30 09/29/20 20:00 99.5 71 18 118/58 (78) 100 09/29/20 19:48 66 19 30 Intake and Output 09/29/20 09/30/20 19:00 07:00 Intake Total 1250 ml 1180 ml Balance 1250 ml 1180 ml Free Water 150 ml 130 ml IV Total 550 ml 450 ml Tube Feeding 550 ml 600 ml # Voids 4 3 Laboratory Tests 09/30/20 00:40: POC Whole Blood Glucose 72L 09/30/20 03:40: White Blood Count 17.9H, Red Blood Count 3.24L, Hemoglobin 10.2L, Hematocrit 33.0L, Mean Corpuscular Volume 102H, Mean Corpuscular Hemoglobin 31.6H, Mean Corpuscular Hemoglobin Concent 31.0L, Red Cell Distribution Width 16.3H, Platelet Count 254#, Mean Platelet Volume 7.9, Neutrophils (%) (Auto) , Lymphocy wyatt (%) (Auto) , Monocytes (%) (Auto) , Eosinophils (%) (Auto) , Basophils (%) (Auto) , Differential Total Cells Counted 100, Neutrophils % (Manual) 37L, Lymphocytes % (Manual) 9L, Monocytes % (Manual) 9, Eosinophils % (Manual) 44H, Basophils % (Manual) 1, Band Neutrophils 0, Platelet Estimate Adequate, Platelet Morphology Normal, Hypochromasia 1+, Anisocytosis 1+, Macrocytosis 1+, Sodium Level 139, Potassium Level 4.9, Chloride Level 108H, Carbon Dioxide Level 27, Anion Gap 4L, Blood Urea Nitrogen 22H, Creatinine 0.5L, Estimat Glomerular Filtration Rate > 60, Glucose Level 93, Calcium Level 8.9, Total Bilirubin 0.5, Aspartate Amino Transf (AST/SGOT) 23, Alanine Aminotransferase (ALT/SGPT) 19, Alkaline Phosphatase 359H, Total Protein 7.3, Albumin 2.4L, Globulin 4.9, Albumin/Globulin Ratio 0.5L 09/30/20 06:16: POC Whole Blood Glucose 87 09/30/20 12:12: POC Whole Blood Glucose 101 09/30/20 18:37: POC Whole Blood Glucose 93 Height (Feet): 5 Height (Inches): 3.00 Weight (Pounds): 145 Objective debilitated Elderly woman on vent NCAT neck (+) trach coarse BS RR abd soft , flat, (+) GT no edema, (++) contractures Assessment/Plan Status: progressing Assessment/Plan: Assessment - Urolithiasis with hydronephrosis - GT site drainage/discharge - resolved - Leukocytosis - Rising Alk phos - OBS - Resp failure, s/p Trach - s/p PEG for dysphagia, - Parkinsons - Schizophrenia - h/o decub ulcers - Severe anemia Recommendations - Urology consult - Re check UA - GT care - Elevate HOB - monitor labs - abx per ID Tana Romano MD Sep 30, 2020 19:21
--- NOTE | 2020-09-30 19:27 | NUR ---
NURSE HAND-OFF REPORT: Important Events on Shift: Patient Status: obtunded Diet: glucerna 1.2 x 50cc/hr Pending Orders: Pending Results/Labs: Pending MD notification: Latest Vital Signs: Temperature 98.4 , Pulse 74 , B/P 119 /52 , Respiratory Rate 18 , O2 SAT 99 , Mechanical Ventilator, O2 Flow Rate 50.0 . Vital Sign Comment: EKG Rhythm: Sinus Rhythm Rhythm change?: N MD Notified?: - MD Response: Latest [place] Fall Score: 50 Fall Risk: High Risk Safety Measures: Call light Within Reach, Bed Alarm Zone 2, Side Rails Side Rails x3, Bed position Low and Locked. Fall Precautions: Yellow Socks Yellow Gown Door Sign Report given to Gifty MUNIZ.
--- NOTE | 2020-09-30 19:30 | NUR ---
NURSE NOTES: Received patient from Daphney RN.Patient is obtunded with Trach to vent , settings are AC12 TV 400 Fio2 30% PEEP 5 with no respiratory distress. o2 sat 100%. on GTF with Glucerna 1.2 at 50cc/hr without residual. Kept HOB at 30degrees.No s/s of pain at this time.Rectal tube and purewick in place.SR on monitor. vss. Afebrile. NS infusing at 50cc/hr.bed in lowest position and locked, bed alarm on. will continue plan of care.
[2020-09-30 20:00] VITALS: BP 123/62
--- NOTE | 2020-09-30 20:13 | General Progress Note ---
Subjective ROS Limited/Unobtainable: Yes Allergies: Coded Allergies: No Known Allergies (Unverified , 11/22/15) Objective Last 24 Hour Vital Signs Date Time Temp Pulse Resp B/P (MAP) Pulse Ox O2 Delivery O2 Flow Rate FiO2 09/30/20 18:59 74 18 30 09/30/20 16:00 Mechanical Ventilator 09/30/20 16:00 69 09/30/20 16:00 98.4 73 19 119/52 (74) 99 09/30/20 16:00 30 09/30/20 14:31 67 16 30 09/30/20 12:00 30 09/30/20 12:00 72 09/30/20 12:00 Mechanical Ventilator 09/30/20 12:00 98.1 74 18 113/51 (71) 100 09/30/20 11:18 72 16 30 09/30/20 08:00 75 09/30/20 08:00 Mechanical Ventilator 09/30/20 08:00 97.7 77 20 132/69 (90) 100 09/30/20 08:00 30 09/30/20 07:02 66 18 30 09/30/20 04:00 Mechanical Ventilator 09/30/20 04:00 83 09/30/20 04:00 98.1 85 20 126/74 (91) 100 09/30/20 04:00 30 09/30/20 03:20 77 19 30 09/30/20 00:00 30 09/30/20 00:00 97.9 69 19 119/59 (79) 100 09/30/20 00:00 Mechanical Ventilator 09/30/20 00:00 70 09/29/20 23:01 68 19 30 Intake and Output 09/29/20 09/30/20 19:00 07:00 Intake Total 1250 ml 1180 ml Balance 1250 ml 1180 ml Free Water 150 ml 130 ml IV Total 550 ml 450 ml Tube Feeding 550 ml 600 ml # Voids 4 3 Laboratory Tests 09/30/20 00:40: POC Whole Blood Glucose 72L 09/30/20 03:40: White Blood Count 17.9H, Red Blood Count 3.24L, Hemoglobin 10.2L, Hematocrit 33.0L, Mean Corpuscular Volume 102H, Mean Corpuscular Hemoglobin 31.6H, Mean Corpuscular Hemoglobin Concent 31.0L, Red Cell Distribution Width 16.3H, Pl atelet Count 254#, Mean Platelet Volume 7.9, Neutrophils (%) (Auto) , Lymphocytes (%) (Auto) , Monocytes (%) (Auto) , Eosinophils (%) (Auto) , Basophils (%) (Auto) , Differential Total Cells Counted 100, Neutrophils % (Manual) 37L, Lymphocytes % (Manual) 9L, Monocytes % (Manual) 9, Eosinophils % (Manual) 44H, Basophils % (Manual) 1, Band Neutrophils 0, Platelet Estimate Adequate, Platelet Morphology Normal, Hypochromasia 1+, Anisocytosis 1+, Mac rocytosis 1+, Sodium Level 139, Potassium Level 4.9, Chloride Level 108H, Carbon Dioxide Level 27, Anion Gap 4L, Blood Urea Nitrogen 22H, Creatinine 0.5L, Estimat Glomerular Filtration Rate > 60, Glucose Level 93, Calcium Level 8.9, Total Bilirubin 0.5, Aspartate Amino Transf (AST/SGOT) 23, Alanine Aminotransferase (ALT/SGPT) 19, Alkaline Phosphatase 359H, Total Protein 7.3, Albumin 2.4L, Globulin 4.9, Albumin/Globulin Ratio 0.5L 09/30/20 06:16: POC Whole Blood Glucose 87 09/30/20 12:12: POC Whole Blood Glucose 101 09/30/20 18:37: POC Whole Blood Glucose 93 Height (Feet): 5 Height (Inches): 3.00 Weight (Pounds): 145 Assessment/Plan Problem List: (1) Hypothyroidism ICD Codes: E03.9 - Hypothyroidism, unspecified SNOMED: 83423300 (2) Chronic respiratory failure ICD Codes: J96.10 - Chronic respiratory failure, unspecified whether with hypoxia or hypercapnia SNOMED: 42323842 (3) Functional quadriplegia ICD Codes: R53.2 - Functional quadriplegia SNOMED: 249632657572750 (4) Protein calorie malnutrition ICD Codes: E46 - Unspecified protein-calorie malnutrition SNOMED: 150748655 (5) Failure to thrive (child) ICD Codes: R62.51 - Failure to thrive (child) SNOMED: 408235557 (6) Sacral decubitus ulcer ICD Codes: L89.159 - Pressure ulcer of sacral region, unspecified stage SNOMED: 192781245 (7) Tracheostomy dependence ICD Codes: Z93.0 - Tracheostomy status SNOMED: 484891935 (8) Sepsis ICD Codes: A41.9 - Sepsis, unspecified organism SNOMED: 63135341 (9) Anemia ICD Codes: D64.9 - Anemia, unspecified SNOMED: 460194577 Qualifiers: Qualified Codes: D64.9 - Anemia, unspecified (10) UTI (urinary tract infection) ICD Codes: N39.0 - Urinary tract infection, site not specified SNOMED: 11403523 Qualifiers: Qualified Codes: N39.0 - Urinary tract infection, site not specified Status: progressing Assessment/Plan: trach and peg pna r/o kidney stone flank pain afebrile quadraplegia Sandeep Oneil MD Sep 30, 2020 20:13
[2020-10-01] VITALS: BP 139/69
--- NOTE | 2020-10-01 02:30 | NUR ---
NURSE NOTES: Patient asleep, Tolerating well with current vent settings. o2sat 100%. Turned and repositioned. vss, SR on the monitor.
[2020-10-01 04:00] VITALS: BP 139/66
--- NOTE | 2020-10-01 04:00 | NUR ---
NURSE NOTES: Sponge bath given. no acute distress noted. suctioned with thick secretions via trach and oral.oral care done.
--- NOTE | 2020-10-01 07:05 | NUR ---
NURSE NOTES: Received report from CRISTY Durbin. patient is on bed, sleeping, no signs of grimacing or distress. Patient is on trache-vent P 7 AC 12, TV 400, FiO2 30%, PEEP 5, tolerating well. Patient is on GT feeding, patent, intact, running Glucerna 1.2 at 50 cc/hr, tolerating well. Peripheral IV R H 22 g, patent, intact, saline locked, and R FA 22 g, patent, intact, running NS @ 50 cc/hr. HOB elevated, bed is on the lowest position, locked, side rails up. Patient will continue to be monitored.
--- NOTE | 2020-10-01 07:16 | NUR ---
NURSE HAND-OFF REPORT: Important Events on Shift:N Patient Status:STABLE Diet: GTF with Glucerna 1.2 at 50cc/hr Pending Orders: N Pending Results/Labs:N Pending MD notification:N Latest Vital Signs: Temperature 98.0 , Pulse 77 , B/P 139 /66 , Respiratory Rate 20 , O2 SAT 100 , Mechanical Ventilator, O2 Flow Rate 50.0 . Vital Sign Comment: STABLE, Afebrile EKG Rhythm: Sinus Rhythm Rhythm change?: N MD Notified?: - MD Response: Latest [place] Fall Score: 50 Fall Risk: High Risk Safety Measures: Call light Within Reach, Bed Alarm Zone 2, Side Rails Side Rails x3, Bed position Low and Locked. Fall Precautions: Yellow Socks Yellow Gown Door Sign Report given to Shady MUNIZ.
[2020-10-01 08:00] VITALS: BP 112/59
[2020-10-01] MEDS ORDERED: Tubing IV Secondary IV ONE (08:20)
--- NOTE | 2020-10-01 08:32 | General Progress Note ---
Subjective Allergies: Coded Allergies: No Known Allergies (Unverified , 11/22/15) All Systems: reviewed and negative except above Subjective trach vent altered Objective Last 24 Hour Vital Signs Date Time Temp Pulse Resp B/P (MAP) Pulse Ox O2 Delivery O2 Flow Rate FiO2 10/01/20 04:00 98.0 77 20 139/66 (90) 100 10/01/20 04:00 30 10/01/20 04:00 Mechanical Ventilator 10/01/20 04:00 76 10/01/20 00:00 99.1 72 19 139/69 (92) 100 10/01/20 00:00 Mechanical Ventilator 10/01/20 00:00 30 10/01/20 00:00 75 09/30/20 23:38 79 20 30 09/30/20 23:38 79 21 100 Mechanical Ventilator 30 09/30/20 20:00 98.1 97 17 123/62 (82) 100 09/30/20 20:00 30 09/30/20 20:00 Mechanical Ventilator 09/30/20 19:23 76 09/30/20 18:59 74 18 30 09/30/20 16:00 Mechanical Ventilator 09/30/20 16:00 69 09/30/20 16:00 98.4 73 19 119/52 (74) 99 09/30/20 16:00 30 09/30/20 14:31 67 16 30 09/30/20 12:00 30 09/30/20 12:00 72 09/30/20 12:00 Mechanical Ventilator 09/30/20 12:00 98.1 74 18 113/51 (71) 100 09/30/20 11:18 72 16 30 Intake and Output 09/30/20 10/01/20 19:00 07:00 Intake Total 850 ml 1450 ml Output Total 650 ml Balance 850 ml 800 ml Free Water 250 ml IV Total 550 ml 600 ml Tube Feeding 300 ml 600 ml Output Urine Total 500 ml Stool Total 150 ml Laboratory Tests 09/30/20 12:12: POC Whole Blood Glucose 101 09/30/20 18:37: POC Whole Blood Glucose 93 09/30/20 23:32: POC Whole Blood Glucose 101 10/01/20 06:29: POC Whole Blood Glucose 116H Height (Feet): 5 Height (Inches): 3.00 Weight (Pounds): 145 General Appearance: lethargic EENT: normal ENT inspection Neck: normal alignment Cardiovascular: normal peripheral pulses, normal rate, regular rhythm Respiratory/Chest: chest wall non-tender, lungs clear, normal breath sounds Abdomen: normal bowel sounds, non tender, soft Extremities: normal inspection Edema: no edema noted Arm (L), no edema noted Arm (R), no edema noted Leg (L), no edema noted Leg (R), no edema noted Pedal (L), no edema noted Pedal (R), no edema noted Generalized Neurologic: motor weakness Skin: normal pigmentation, warm/dry Assessment/Plan Problem List: (1) Functional quadriplegia ICD Codes: R53.2 - Functional quadriplegia SNOMED: 819955783882242 (2) Person under investigation for COVID-19 ICD Codes: Z20.828 - Contact with and (suspected) exposure to other viral communicable diseases SNOMED: 526427799 (3) Chronic respiratory failure ICD Codes: J96.10 - Chronic respiratory failure, unspecified whether with hypoxia or hypercapnia SNOMED: 31484775 (4) Dehydration ICD Codes: E86.0 - Dehydration SNOMED: 88092524 (5) Hypernatremia ICD Codes: E87.0 - Hyperosmolality and hypernatremia SNOMED: 453209887 (6) Hypothyroidism ICD Codes: E03.9 - Hypothyroidism, unspecified SNOMED: 75780016 (7) Pyelonephritis ICD Codes: N12 - Tubulo-interstitial nephritis, not specified as acute or chronic SNOMED: 21214857 (8) Protein calorie malnutrition ICD Codes: E46 - Unspecified protein-calorie malnutrition SNOMED: 603476956 (9) Failure to thrive (child) ICD Codes: R62.51 - Failure to thrive (child) SNOMED: 589515253 (10) Sacral decubitus ulcer ICD Codes: L89.159 - Pressure ulcer of sacral region, unspecified stage SNOMED: 155487728 (11) Tracheostomy dependence ICD Codes: Z93.0 - Tracheostomy status SNOMED: 483444245 (12) Pneumonia ICD Codes: J18.9 - Pneumonia, unspecified organism SNOMED: 625301798 Qualifiers: Qualified Codes: J18.9 - Pneumonia, unspecified organism (13) Hypothyroidism ICD Codes: E03.9 - Hypothyroidism, unspecified SNOMED: 97027076 (14) Electrolyte imbalance ICD Codes: E87.8 - Other disorders of electrolyte and fluid balance, not elsewhere classified SNOMED: 466346851 (15) Sepsis ICD Codes: A41.9 - Sepsis, unspecified organism SNOMED: 32980483 (16) UTI (urinary tract infection) ICD Codes: N39.0 - Urinary tract infection, site not specified SNOMED: 53883604 Qualifiers: Qualified Codes: N39.0 - Urinary tract infection, site not specified (17) Anemia ICD Codes: D64.9 - Anemia, unspecified SNOMED: 271328801 Qualifiers: Qualified Codes: D64.9 - Anemia, unspecified (18) Dysphagia ICD Codes: R13.10 - Dysphagia, unspecified SNOMED: 81068856, 484147487 (19) Hypoalbuminemia ICD Codes: E88.09 - Other disorders of plasma-protein metabolism, not elsewhere classified SNOMED: 899484114 (20) Iron deficiency ICD Codes: E61.1 - Iron deficiency SNOMED: 32286483 (21) At high risk for aspiration ICD Codes: Z91.89 - Other specified personal risk factors, not elsewhere classified SNOMED: 363236261 (22) Parkinson disease ICD Codes: G20 - Parkinson's disease SNOMED: 27301773 (23) Dementia ICD Codes: F03.90 - Unspecified dementia without behavioral disturbance SNOMED: 72053396 (24) Elevated CEA ICD Codes: R97.0 - Elevated carcinoembryonic antigen [CEA] SNOMED: 63881357, 472676541 (25) Paroxysmal A-fib ICD Codes: I48.0 - Paroxysmal atrial fibrillation SNOMED: 000350845 (26) Pancytopenia ICD Codes: D61.818 - Other pancytopenia SNOMED: 130402592 Status: unchanged Assessment/Plan: vent abx cbc bmp am Tony Dupree IanAlva DO Oct 01, 2020 08:32
[2020-10-01] MEDS: Ascorbic Acid 500mg tab ORAL SCH ×2 (08:53→17:46)
[2020-10-01] MEDS: Pantoprazole Inj IVP SCH ×2 (08:53→21:07)
--- NOTE | 2020-10-01 09:12 | NUR ---
CASE MANAGEMENT: REVIEW 10/01/2020 SI:SEPSIS. VS: T 98 HR 77 RR 20 B/P 139/66 SATS 100% ON MECH VENT FIO2 30 LABS: GLU 116 IS:NS @ 50 ML/HR PROTONIX IV Q12H SDU
--- NOTE | 2020-10-01 10:30 | Hematology/Onc Progress Note ---
Assessment/Plan Assessment/Plan maging 07/01/20 cxr Bilateral patchy airspace opacities. Differential includes multifocal pneumonia and pulmonary edema. 09/16/20 cxr b/l infiltrates noted Assessment and Recommendations # Anemia of iron deficiency, has been persistent for months, now improved, as ferritin better --> Anemia workup has been ordered--> improved --> No evidence of hemolysis is noted, peripheral smear has been reviewed. --> Hgb goal >7. Transfuse prn. --> Iron iv not needed any further --> Medications have been reviewed --> gb 9-->8.4->>>>7.5-->9.4-->9->10-->9.4->10.1-->10.5-->10.2 # Right breast calcifications --> does not have a breast mass on exam --> f/u as outpatient with mammo as needed --> do not do a us breast here # Thrombocytopenia - potential causes multifactorial, evaluate liver and viral etiologies to begin, also could be related to underlying medications, no wimproved --> Hep panel and HIV prior negative -> plt 183->203->199-->125->130 --> abx # Leukocytosis with Pna --> antibiotics per id --> wbc 16->10.8-->16-->18 --> smear is noted # Sepsis --> antibiotics per Infectious Disease. --> ABX vanc/zosyn->meropenem # Dehydration. --> PT and Dietary evaluation. # Hypertension --> Blood pressure control. # Dvt ppx scds The timing of this note does not necessarily reflect the time of the patient was seen Greatly appreciate consultation! Subjective Allergies: Coded Allergies: No Known Allergies (Unverified , 11/22/15) Subjective Subjective: 09/18 labs are noted, no bleeding, seen by pulm, cbc is pending 09/19 gtube is running, meds reviewed, labs noted 09/20 labs reviewed, meds noted, cbc is pending, vanc was added recently 09/21 labs reviewed, meds noetd, hgb 10, bactrim, yovani, vanc 09/22 is satting well on the vent, abx, labs still pending for am 12/25 remains on vent, not in acute distress, no bleeding, no night sweats 09/25 labs pending, on trach, vent gtube, meds reviewed, feeds ongoing 09/26 obtunded, labs pending, trach/vent, no bleeding, meds noted 09/27 pending cbc, is s/p peg feeds, hany/trach 09/28 obtunded, no events, s/p peg, vent/trach, cleaned per Rn 09/29 nv, t/v, no night sweats, meds noted, no bleeding 09/30 nv, no bleeding, stones noted, with hydro on ct, labs reviewed 10/01: vent trach tolerating g tube feedings, no bleeding reported Objective Objective Current Medications Medications (Trade) Dose Ordered Sig/Alex Route PRN Reason Start Time Stop Time Status Last Admin Dose Admin Acetaminophen (Tylenol) 500 mg Q4H PRN ORAL Mild Pain (Pain Scale 1-3) 09/15/20 23:15 10/15/20 23:14 09/23/20 16:49 Acetaminophen (Tylenol) 500 mg Q4H PRN ORAL Temp >100.5 09/15/20 23:15 10/15/20 23:14 09/24/20 16:19 Ascorbic Acid (Vitamin C) 250 mg TWICE A DAY ORAL 09/19/20 18:00 10/19/20 17:59 10/01/20 08:53 Barium Sulfate (Readi-Cat 2) 450 ml NOW PRN ORAL Radiology Procedure 09/29/20 19:00 10/01/20 18:59 Hydralazine HCl (Apresoline) 10 mg Q2H PRN IV For High Blood Pressure 09/17/20 17:00 12/16/20 16:59 Iohexol (OMNIPAQUE-300 100ml) 100 ml NOW PRN INJ Radiology Procedure 09/29/20 19:00 10/01/20 18:59 Levothyroxine Sodium (Synthroid) 50 mcg DAILY IV 09/26/20 13:00 10/26/20 12:59 10/01/20 08:53 Multivitamins (Multivitamins) 1 tab DAILY ORAL 09/20/20 09:00 10/20/20 08:59 10/01/20 08:53 Pantoprazole (Protonix) 40 mg EVERY 12 HOURS IVP 09/17/20 14:15 10/17/20 14:14 10/01/20 08:53 Sodium Chloride 1,000 ml @ 50 mls/hr Q20H IV 09/26/20 11:15 10/26/20 11:14 09/30/20 15:30 Last 24 Hour Vital Signs Date Time Temp Pulse Resp B/P (MAP) Pulse Ox O2 Delivery O2 Flow Rate FiO2 10/01/20 08:00 72 10/01/20 08:00 98.2 71 16 112/59 (76) 100 10/01/20 08:00 30 10/01/20 08:00 Mechanical Ventilator 10/01/20 04:00 98.0 77 20 139/66 (90) 100 10/01/20 04:00 30 10/01/20 04:00 Mechanical Ventilator 10/01/20 04:00 76 10/01/20 00:00 99.1 72 19 139/69 (92) 100 10/01/20 00:00 Mechanical Ventilator 10/01/20 00:00 30 10/01/20 00:00 75 09/30/20 23:38 79 20 30 09/30/20 23:38 79 21 100 Mechanical Ventilator 30 09/30/20 20:00 98.1 97 17 123/62 (82) 100 09/30/20 20:00 30 09/30/20 20:00 Mechanical Ventilator 09/30/20 19:23 76 09/30/20 18:59 74 18 30 09/30/20 16:00 Mechanical Ventilator 09/30/20 16:00 69 09/30/20 16:00 98.4 73 19 119/52 (74) 99 09/30/20 16:00 30 09/30/20 14:31 67 16 30 09/30/20 12:00 30 09/30/20 12:00 72 09/30/20 12:00 Mechanical Ventilator 09/30/20 12:00 98.1 74 18 113/51 (71) 100 09/30/20 11:18 72 16 30 09/30/20 08:00 75 09/30/20 08:00 Mechanical Ventilator 09/30/20 08:00 97.7 77 20 132/69 (90) 100 09/30/20 08:00 30 09/30/20 07:02 66 18 30 09/30/20 04:00 Mechanical Ventilator 09/30/20 04:00 83 09/30/20 04:00 98.1 85 20 126/74 (91) 100 09/30/20 04:00 30 09/30/20 03:20 77 19 30 09/30/20 00:00 30 09/30/20 00:00 97.9 69 19 119/59 (79) 100 09/30/20 00:00 Mechanical Ventilator 09/30/20 00:00 70 09/29/20 23:01 68 19 30 09/29/20 20:00 Mechanical Ventilator 09/29/20 20:00 72 09/29/20 20:00 30 09/29/20 20:00 99.5 71 18 118/58 (78) 100 09/29/20 19:48 66 19 30 09/29/20 16:00 98.8 70 18 109/60 (76) 100 09/29/20 16:00 30 09/29/20 16:00 Mechanical Ventilator 09/29/20 14:00 68 09/29/20 13:15 67 15 30 09/29/20 12:00 98.2 72 18 110/53 (72) 100 09/29/20 12:00 64 09/29/20 11:57 Mechanical Ventilator 09/29/20 11:56 30 Intake and Output 09/30/20 10/01/20 19:00 07:00 Intake Total 850 ml 1450 ml Output Total 650 ml Balance 850 ml 800 ml Free Water 250 ml IV Total 550 ml 600 ml Tube Feeding 300 ml 600 ml Output Urine Total 500 ml Stool Total 150 ml Labs Test 09/28/20 13:46 09/28/20 15:50 09/28/20 23:41 09/29/20 03:35 POC Whole Blood Glucose 82 MG/DL (74-106) 81 MG/DL (74-106) 91 MG/DL (74-106) White Blood Count 18.6 K/UL (4.8-10.8) Red Blood Count 3.28 M/UL (4.20-5.40) Hemoglobin 10.5 G/DL (12.0-16.0) Hematocrit 33.3 % (37.0-47.0) Mean Corpuscular Volume 102 FL (80-99) Mean Corpuscular Hemoglobin 31.9 PG (27.0-31.0) Mean Corpuscular Hemoglobin Concent 31.4 G/DL (32.0-36.0) Red Cell Distribution Width 16.6 % (11.6-14.8) Platelet Count 166 K/UL (150-450) Mean Platelet Volume 7.7 FL (6.5-10.1) Neutrophils (%) (Auto) % (45.0-75.0) Lymphocytes (%) (Auto) % (20.0-45.0) Monocytes (%) (Auto) % (1.0-10.0) Eosinophils (%) (Auto) % (0.0-3.0) Basophils (%) (Auto) % (0.0-2.0) Differential Total Cells Counted 100 Neutrophils % (Manual) 42 % (45-75) Lymphocytes % (Manual) 12 % (20-45) Monocytes % (Manual) 6 % (1-10) Eosinophils % (Manual) 40 % (0-3) Basophils % (Manual) 0 % (0-2) Band Neutrophils 0 % (0-8) Platelet Estimate Adequate Platelet Morphology Normal Hypochromasia 1+ Anisocytosis 1+ Macrocytosis 1+ Sodium Level 139 MMOL/L (136-145) Potassium Level 4.9 MMOL/L (3.5-5.1) Chloride Level 108 MMOL/L (98-107) Carbon Dioxide Level 30 MMOL/L (21-32) Anion Gap 1 mmol/L (5-15) Blood Urea Nitrogen 24 mg/dL (7-18) Creatinine 0.5 MG/DL (0.55-1.30) Estimat Glomerular Filtration Rate > 60 mL/min (>60) Glucose Level 102 MG/DL (74-106) Calcium Level 9.5 MG/DL (8.5-10.1) Phosphorus Level 2.0 MG/DL (2.5-4.9) Magnesium Level 2.1 MG/DL (1.8-2.4) Total Bilirubin 0.5 MG/DL (0.2-1.0) Aspartate Amino Transf (AST/SGOT) 25 U/L (15-37) Alanine Aminotransferase (ALT/SGPT) 18 U/L (12-78) Alkaline Phosphatase 358 U/L (46-116) Total Protein 7.4 G/DL (6.4-8.2) Albumin 2.4 G/DL (3.4-5.0) Globulin 5.0 g/dL Albumin/Globulin Ratio 0.5 (1.0-2.7) Test 09/29/20 05:27 09/29/20 12:07 09/29/20 17:52 09/30/20 00:40 POC Whole Blood Glucose 92 MG/DL (74-106) 94 MG/DL (74-106) 94 MG/DL (74-106) 72 MG/DL (74-106) Test 09/30/20 03:40 09/30/20 06:16 09/30/20 12:12 09/30/20 18:37 White Blood Count 17.9 K/UL (4.8-10.8) Red Blood Count 3.24 M/UL (4.20-5.40) Hemoglobin 10.2 G/DL (12.0-16.0) Hematocrit 33.0 % (37.0-47.0) Mean Corpuscular Volume 102 FL (80-99) Mean Corpuscular Hemoglobin 31.6 PG (27.0-31.0) Mean Corpuscular Hemoglobin Concent 31.0 G/DL (32.0-36.0) Red Cell Distribution Width 16.3 % (11.6-14.8) Platelet Count 254 K/UL (150-450) Mean Platelet Volume 7.9 FL (6.5-10.1) Neutrophils (%) (Auto) % (45.0-75.0) Lymphocytes (%) (Auto) % (20.0-45.0) Monocytes (%) (Auto) % (1.0-10.0) Eosinophils (%) (Auto) % (0.0-3.0) Basophils (%) (Auto) % (0.0-2.0) Differential Total Cells Counted 100 Neutrophils % (Manual) 37 % (45-75) Lymphocytes % (Manual) 9 % (20-45) Monocytes % (Manual) 9 % (1-10) Eosinophils % (Manual) 44 % (0-3) Basophils % (Manual) 1 % (0-2) Band Neutrophils 0 % (0-8) Platelet Estimate Adequate Platelet Morphology Normal Hypochromasia 1+ Anisocytosis 1+ Macrocytosis 1+ Sodium Level 139 MMOL/L (136-145) Potassium Level 4.9 MMOL/L (3.5-5.1) Chloride Level 108 MMOL/L (98-107) Carbon Dioxide Level 27 MMOL/L (21-32) Anion Gap 4 mmol/L (5-15) Blood Urea Nitrogen 22 mg/dL (7-18) Creatinine 0.5 MG/DL (0.55-1.30) Estimat Glomerular Filtration Rate > 60 mL/min (>60) Glucose Level 93 MG/DL (74-106) Calcium Level 8.9 MG/DL (8.5-10.1) Total Bilirubin 0.5 MG/DL (0.2-1.0) Aspartate Amino Transf (AST/SGOT) 23 U/L (15-37) Alanine Aminotransferase (ALT/SGPT) 19 U/L (12-78) Alkaline Phosphatase 359 U/L (46-116) Total Protein 7.3 G/DL (6.4-8.2) Albumin 2.4 G/DL (3.4-5.0) Globulin 4.9 g/dL Albumin/Globulin Ratio 0.5 (1.0-2.7) POC Whole Blood Glucose 87 MG/DL (74-106) 101 MG/DL (74-106) 93 MG/DL (74-106) Test 09/30/20 23:32 10/01/20 06:29 POC Whole Blood Glucose 101 MG/DL (74-106) 116 MG/DL (74-106) Height (Feet): 5 Height (Inches): 3.00 Weight (Pounds): 145 Objective Physical exam HEENT: no symptoms, eye pain, blurred vision, tearing, double vision, ear pain, ear discharge, nose pain, nose congestion, throat pain, throat swelling, mouth pain, mouth swelling, other Cardiovascular: no symptoms, chest pain, edema, irregular heart rate, lightheadedness, palpitations, syncope, other Respiratory: no symptoms, cough, shortness of breath, SOB with excertion, SOB at rest, sputum, wheezing, other, Trach on vent Genitourinary: no symptoms, burning, discharge, frequency, flank pain, hematuria, incontinence, pain, urgency, other Neurologic/Psychiatric: no symptoms, anxiety, depressed, emotional problems, headache, numbness, paresthesia, pre-existing deficit, seizure, tingling, tremors, weakness, other Endocrine: Denies: no symptoms, excessive sweating, flushing, intolerance to cold, intolerance to heat, increased hunger, increased thirst, increased urine, unexplained weight gain, unexplained weight loss, other Hematologic/Lymphatic: no symptoms, anemia, easy bleeding, easy bruising, adenopathy, other Coco Claros NP Oct 01, 2020 10:30
--- NOTE | 2020-10-01 11:14 | Consultation ---
DATE OF CONSULTATION: 10/01/2020 UROLOGY CONSULTATION ATTENDING/ PHYSICIAN: Tony Dupree DO. CHIEF COMPLAINT/HISTORY OF PRESENT ILLNESS: I was asked by Dr. Dupree to evaluate this unfortunate 75-year-old female regarding history of multiple stones in the right ureter. Briefly, the patient has a history of multiple medical problems, these include dementia, schizophrenia, Parkinson, diabetes, quadriplegia, ventilator dependence. She presented to the hospital with pneumonia, urinary tract infection, and some fever. More recently, she had a CT scan done revealing multiple stones in the right ureter. Given the above, I was asked to evaluate the patient. The patient is nonverbal and cannot provide any useful information. Most of the information is gathered from the chart. PAST MEDICAL HISTORY: 1. Schizophrenia. 2. Dementia. 3. Parkinson disease. 4. Anemia. 5. Quadriplegia. 6. Diabetes. 7. Hypertension. 8. Chronic respiratory failure with ventilator dependence. 9. Sacral decubitus ulceration. 10. Thrombocytopenia. 11. Breast calcification. 12. Hypothyroidism. 13. Urinary tract infection. PAST SURGICAL HISTORY: 1. PEG placement. 2. Tracheostomy. MEDICATIONS: Please see the chart for current medications and administration details. ALLERGIES: No known drug allergies. SOCIAL HISTORY: Unobtainable/appears unremarkable for tobacco, alcohol, or drug use. FAMILY HISTORY: Not available. REVIEW OF SYSTEMS: A 14-system review of systems cannot be done as the patient is not cooperate with questioning. PHYSICAL EXAMINATION: GENERAL: The patient is an elderly female, resting comfortably on a ventilator, no obvious distress. HEENT: NC/AT. Oropharynx clear. NECK: Supple. Tracheostomy site clean, dry, and intact. CHEST: Appears within normal limits. ABDOMEN: Soft, somewhat obese, nontender, nondistended. PEG tube site clean, dry, and intact. EXTREMITIES: Warm and well perfused. No cyanosis, clubbing, or edema. NEUROLOGIC: Deferred as the patient cannot cooperate with the exam. LABORATORY DATA: White blood cell count 17.9, hematocrit 33, platelets 254. PT 12, INR 1.1, and PTT 27. Sodium 139, potassium 4.9, chloride 108, bicarbonate 27, BUN 22, creatinine 0.5, glucose 93. Calcium 8.9. LFTs within normal limits. Alkaline phosphatase 359. Urinalysis specific gravity 1.010, pH 8.0. Dip test notable for 2+ protein, 4+ occult blood, 3+ leukocyte esterase. Microanalysis with 60 to 80 white and 10 to 15 red blood cells per high-power field, and many bacteria seen. Urine culture with ESBL E. coli. Previous blood cultures with VRE. Second set of blood culture is negative. COVID-19 is negative. DIAGNOSTIC IMAGING: CT scan of the abdomen and pelvis reveals four stones in the distal right ureter with mild hydronephrosis secondary to same. These include a 12 x 6 and a 13 x 7 mm stone. There are 2 to 3 mm stones in the more proximal ureter as well. There is a nonobstructing stone in the right renal pelvis measuring 13 x 14 mm as well as 11 mm stone in the lower pole of the right kidney. ASSESSMENT AND PLAN: In summary, the patient is a 75-year-old female with history of paraplegia, dementia, Parkinson, chronic respiratory failure necessitating vent. She presented to the hospital with evidence of pneumonia and urinary tract infection. She initially had some fevers but in the last couple days she has not had any fever or temperature greater than 99. CT scan reveals evidence of multiple stones including a large stones in the right ureter with mild hydronephrosis. The patient's creatinine remains normal. Physical exam reveals a debilitated ventilator-dependent nonresponsive female in no obvious distress. The patient has multiple stones in the ureter clearing given their size and number would be a significant undertaking. Given the patient's overall current health condition, lack of symptoms from the stones in terms of any current fever, creatinine bump, etc., I would defer management of these for now. If the patient continued to have recurrent issues here in the hospital, a stent could be placed if necessary and if possible however again given her overall health condition and lack of apparent symptoms currently from the same and the clinical and social picture I would defer treatment of the stones. If the patient is eventually stabilized and improved as an outpatient, further consideration for treatment of them can be considered as warranted. Thank you for allowing me to participate in the care of this unfortunate lady. Please do not hesitate to contact me for any questions that you may further have regarding her care. Cam Barker M.D. DR: Anamika JOB#: [id number] CC:
[2020-10-01 12:00] VITALS: BP 125/57
--- NOTE | 2020-10-01 12:04 | Pulmonology Progress Note ---
Subjective ROS Limited/Unobtainable: Yes Interval Events: None new Constitutional: Denies: fever HEENT: Repors: no symptoms Respiratory: Reports: no symptoms Cardiovascular: Reports: no symptoms Gastrointestinal/Abdominal: Denies: diarrhea Genitourinary: Reports: no symptoms Allergies: Coded Allergies: No Known Allergies (Unverified , 11/22/15) All Systems: reviewed and negative except above Objective Last 24 Hour Vital Signs Date Time Temp Pulse Resp B/P (MAP) Pulse Ox O2 Delivery O2 Flow Rate FiO2 10/01/20 08:00 72 10/01/20 08:00 98.2 71 16 112/59 (76) 100 10/01/20 08:00 30 10/01/20 08:00 Mechanical Ventilator 10/01/20 04:00 98.0 77 20 139/66 (90) 100 10/01/20 04:00 30 10/01/20 04:00 Mechanical Ventilator 10/01/20 04:00 76 10/01/20 00:00 99.1 72 19 139/69 (92) 100 10/01/20 00:00 Mechanical Ventilator 10/01/20 00:00 30 10/01/20 00:00 75 09/30/20 23:38 79 20 30 09/30/20 23:38 79 21 100 Mechanical Ventilator 30 09/30/20 20:00 98.1 97 17 123/62 (82) 100 09/30/20 20:00 30 09/30/20 20:00 Mechanical Ventilator 09/30/20 19:23 76 09/30/20 18:59 74 18 30 09/30/20 16:00 Mechanical Ventilator 09/30/20 16:00 69 09/30/20 16:00 98.4 73 19 119/52 (74) 99 09/30/20 16:00 30 09/30/20 14:31 67 16 30 Intake and Output0 09/30/20 10/01/20 19:00 07:00 Intake Total 850 ml 1450 ml Output Total 650 ml Balance 850 ml 800 ml Free Water 250 ml IV Total 550 ml 600 ml Tube Feeding 300 ml 600 ml Output Urine Total 500 ml Stool Total 150 ml Objective saturating well on current vent setting General Appearance: no acute distress HEENT: normocephalic, atraumatic, status post trach Respiratory: chest wall non-tender, lungs clear, other - coarse rhonchi Cardiovascular: normal rate, regular rhythm Abdomen: normal bowel sounds, distended Laboratory Tests 09/30/20 12:12: POC Whole Blood Glucose 101 09/30/20 18:37: POC Whole Blood Glucose 93 09/30/20 23:32: POC Whole Blood Glucose 101 10/01/20 06:29: POC Whole Blood Glucose 116H Current Medications Medications (Trade) Dose Ordered Sig/Alex Route PRN Reason Start Time Stop Time Status Last Admin Dose Admin Acetaminophen (Tylenol) 500 mg Q4H PRN ORAL Mild Pain (Pain Scale 1-3) 09/15/20 23:15 10/15/20 23:14 09/23/20 16:49 Acetaminophen (Tylenol) 500 mg Q4H PRN ORAL Temp >100.5 09/15/20 23:15 10/15/20 23:14 09/24/20 16:19 Ascorbic Acid (Vitamin C) 250 mg TWICE A DAY ORAL 09/19/20 18:00 10/19/20 17:59 10/01/20 08:53 Barium Sulfate (Readi-Cat 2) 450 ml NOW PRN ORAL Radiology Procedure 09/29/20 19:00 10/01/20 18:59 Hydralazine HCl (Apresoline) 10 mg Q2H PRN IV For High Blood Pressure 09/17/20 17:00 12/16/20 16:59 Iohexol (OMNIPAQUE-300 100ml) 100 ml NOW PRN INJ Radiology Procedure 09/29/20 19:00 10/01/20 18:59 Levothyroxine Sodium (Synthroid) 50 mcg DAILY IV 09/26/20 13:00 10/26/20 12:59 10/01/20 08:53 Multivitamins (Multivitamins) 1 tab DAILY ORAL 09/20/20 09:00 10/20/20 08:59 10/01/20 08:53 Pantoprazole (Protonix) 40 mg EVERY 12 HOURS IVP 09/17/20 14:15 10/17/20 14:14 10/01/20 08:53 Sodium Chloride 1,000 ml @ 50 mls/hr Q20H IV 09/26/20 11:15 10/26/20 11:14 10/01/20 11:33 Assessment/Plan Assessment/Plan 1. Anemia, likely iron deficiency. - s/p IV iron. - s/p transfusion per Dr. Cazares. 2. Interstitial infiltrates, has pneumonia. - Sputum -> Serratia - Antibiotics per ID. - Continue supplemental oxygen; continue ventilator, AC mode.FiO2 30% 3. Sepsis. - Antibiotics per ID. Gm neg rods in sputum CS; confirmed Serratia 4. History of fever. - Currently afebrile. 5. Possible COVID-19 infection. - Swab COVID-19 test negative. - Repeat PCR COVID-19 also negative 6. CHF. - 2D echocardiogram LVEF 60-65%. 7. UTI. - On antibiotics. Has ESBL E. Coli 8. Elevated D-dimer. 9. DVT prophylaxis. - Venous duplex ultrasound negative. - on SCD 10. Chronic Respiratory Failure; continue vent; AC mode 11. Rising alk phos - CT abd showed stones in ureter and renal pelvis - urology recs noted The care for this patient was discussed with my supervising physician Time spent for this case was approximately 31 minutes Uriel Díaz Oct 01, 2020 12:04
--- NOTE | 2020-10-01 13:12 | Infectious Diseases Prog Note ---
Assessment/Plan Assessment/Plan IMPRESSION: Fever resolved Eosinophilia & rash VRE sepsis ( Amp sensitive) Positive blood culture with Staph Hemolyticus likely contamination Serratia, Pseudomonas & Stenotrophomonas pneumonia, E coli UTI, Ventilator-dependent respiratory failure, Quadriplegia, Stage IV sacral ulcer, COPD, Iron deficiency anemia, Hypertension, history of atrial fibrillation. Negative COVI19 tests ? scabies, received Ivermectin Ureteral stone Mild R hydronephrosis & Hydroureter RECOMMENDATION: Observe off antibiotic F/U CBC Subjective ROS Limited/Unobtainable: Yes Constitutional: Denies: fever Allergies: Coded Allergies: No Known Allergies (Unverified , 11/22/15) Objective Last 24 Hour Vital Signs Date Time Temp Pulse Resp B/P (MAP) Pulse Ox O2 Delivery O2 Flow Rate FiO2 10/01/20 08:00 72 10/01/20 08:00 98.2 71 16 112/59 (76) 100 10/01/20 08:00 30 10/01/20 08:00 Mechanical Ventilator 10/01/20 04:00 98.0 77 20 139/66 (90) 100 10/01/20 04:00 30 10/01/20 04:00 Mechanical Ventilator 10/01/20 04:00 76 10/01/20 00:00 99.1 72 19 139/69 (92) 100 10/01/20 00:00 Mechanical Ventilator 10/01/20 00:00 30 10/01/20 00:00 75 09/30/20 23:38 79 20 30 09/30/20 23:38 79 21 100 Mechanical Ventilator 30 09/30/20 20:00 98.1 97 17 123/62 (82) 100 09/30/20 20:00 30 09/30/20 20:00 Mechanical Ventilator 09/30/20 19:23 76 09/30/20 18:59 74 18 30 09/30/20 16:00 Mechanical Ventilator 09/30/20 16:00 69 09/30/20 16:00 98.4 73 19 119/52 (74) 99 09/30/20 16:00 30 09/30/20 14:31 67 16 30 Height (Feet): 5 Height (Inches): 3.00 Weight (Pounds): 145 HEENT: status post trach Respiratory/Chest: lungs clear, other - on ventilator Cardiovascular: normal rate Abdomen: soft, non tender, other - GT & rectal tube Extremities: other - dependent edema Skin: rash Neurologic/Psychiatric: aphasia Laboratory Tests Test 09/30/20 18:37 09/30/20 23:32 10/01/20 06:29 10/01/20 12:24 POC Whole Blood Glucose 93 MG/DL (74-106) 101 MG/DL (74-106) 116 MG/DL (74-106) H 96 MG/DL (74-106) Current Medications Medications (Trade) Dose Ordered Sig/Alex Route PRN Reason Start Time Stop Time Status Last Admin Dose Admin Acetaminophen (Tylenol) 500 mg Q4H PRN ORAL Mild Pain (Pain Scale 1-3) 09/15/20 23:15 10/15/20 23:14 09/23/20 16:49 Acetaminophen (Tylenol) 500 mg Q4H PRN ORAL Temp >100.5 09/15/20 23:15 10/15/20 23:14 09/24/20 16:19 Ascorbic Acid (Vitamin C) 250 mg TWICE A DAY ORAL 09/19/20 18:00 10/19/20 17:59 10/01/20 08:53 Barium Sulfate (Readi-Cat 2) 450 ml NOW PRN ORAL Radiology Procedure 09/29/20 19:00 10/01/20 18:59 Hydralazine HCl (Apresoline) 10 mg Q2H PRN IV For High Blood Pressure 09/17/20 17:00 12/16/20 16:59 Iohexol (OMNIPAQUE-300 100ml) 100 ml NOW PRN INJ Radiology Procedure 09/29/20 19:00 10/01/20 18:59 Levothyroxine Sodium (Synthroid) 50 mcg DAILY IV 09/26/20 13:00 10/26/20 12:59 10/01/20 08:53 Multivitamins (Multivitamins) 1 tab DAILY ORAL 09/20/20 09:00 10/20/20 08:59 10/01/20 08:53 Pantoprazole (Protonix) 40 mg EVERY 12 HOURS IVP 09/17/20 14:15 10/17/20 14:14 10/01/20 08:53 Sodium Chloride 1,000 ml @ 50 mls/hr Q20H IV 09/26/20 11:15 10/26/20 11:14 10/01/20 11:33 Mahesh Nicole MD Oct 01, 2020 13:12
--- NOTE | 2020-10-01 15:34 | Nephrology Progress Note ---
Assessment/Plan Problem List: (1) Electrolyte imbalance (2) Hypothyroidism (3) Functional quadriplegia (4) Sacral decubitus ulcer (5) Hypoalbuminemia (6) Anemia Assessment Unfortunate 75-year old female with chronic trach to vent is being treated for sepsis Has hyponatremia Marked elevated TSH indicative of severe hypothyroidism leading to hyponatremia Anemia Plan October 01: No labs drawn today. Will check lab tomorrow. Continue per consultants. Stable from renal standpoint of view. September 30: Labs reviewed. Renal parameters stable. Continue per consultants. September 29: Labs reviewed. Abnormal electrolytes and chemistries addressed. Continue per consultants. September 28: No CHEM panel drawn today. Medication list reviewed. Continue present management. September 27: Labs reviewed. Renal parameters stable. On intravenous Synthroid for severe hypothyroidism. Continue to monitor electrolytes and renal parameters Previously: IV Synthroid given Continue per consultants Monitor renal parameters and electrolytes Subjective ROS Limited/Unobtainable: Yes Objective Objective Last 24 Hour Vital Signs Date Time Temp Pulse Resp B/P (MAP) Pulse Ox O2 Delivery O2 Flow Rate FiO2 10/01/20 12:00 30 10/01/20 12:00 99.0 68 14 125/57 (79) 100 10/01/20 12:00 Mechanical Ventilator 10/01/20 11:42 76 10/01/20 08:00 72 10/01/20 08:00 98.2 71 16 112/59 (76) 100 10/01/20 08:00 30 10/01/20 08:00 Mechanical Ventilator 10/01/20 04:00 98.0 77 20 139/66 (90) 100 10/01/20 04:00 30 10/01/20 04:00 Mechanical Ventilator 10/01/20 04:00 76 10/01/20 00:00 99.1 72 19 139/69 (92) 100 10/01/20 00:00 Mechanical Ventilator 10/01/20 00:00 30 10/01/20 00:00 75 09/30/20 23:38 79 20 30 09/30/20 23:38 79 21 100 Mechanical Ventilator 30 09/30/20 20:00 98.1 97 17 123/62 (82) 100 09/30/20 20:00 30 09/30/20 20:00 Mechanical Ventilator 09/30/20 19:23 76 09/30/20 18:59 74 18 30 09/30/20 16:00 Mechanical Ventilator 09/30/20 16:00 69 09/30/20 16:00 98.4 73 19 119/52 (74) 99 09/30/20 16:00 30 Intake and Output 09/30/20 10/01/20 19:00 07:00 Intake Total 850 ml 1450 ml Output Total 650 ml Balance 850 ml 800 ml Free Water 250 ml IV Total 550 ml 600 ml Tube Feeding 300 ml 600 ml Output Urine Total 500 ml Stool Total 150 ml Laboratory Tests 09/30/20 18:37: POC Whole Blood Glucose 93 09/30/20 23:32: POC Whole Blood Glucose 101 10/01/20 06:29: POC Whole Blood Glucose 116H 10/01/20 12:24: POC Whole Blood Glucose 96 Height (Feet): 5 Height (Inches): 3.00 Weight (Pounds): 145 General Appearance: no apparent distress EENT: other - Trach to vent Cardiovascular: normal rate Respiratory/Chest: decreased breath sounds Abdomen: distended Dante Chau MD Oct 01, 2020 15:34
--- NOTE | 2020-10-01 15:50 | Surgery Progress Note ---
Surgery Progress Note Subjective Additional Comments ill appearing labs noted exam stable dressings going well Objective Last 24 Hour Vital Signs Date Time Temp Pulse Resp B/P (MAP) Pulse Ox O2 Delivery O2 Flow Rate FiO2 10/01/20 12:00 30 10/01/20 12:00 99.0 68 14 125/57 (79) 100 10/01/20 12:00 Mechanical Ventilator 10/01/20 11:42 76 10/01/20 08:00 72 10/01/20 08:00 98.2 71 16 112/59 (76) 100 10/01/20 08:00 30 10/01/20 08:00 Mechanical Ventilator 10/01/20 04:00 98.0 77 20 139/66 (90) 100 10/01/20 04:00 30 10/01/20 04:00 Mechanical Ventilator 10/01/20 04:00 76 10/01/20 00:00 99.1 72 19 139/69 (92) 100 10/01/20 00:00 Mechanical Ventilator 10/01/20 00:00 30 10/01/20 00:00 75 09/30/20 23:38 79 20 30 09/30/20 23:38 79 21 100 Mechanical Ventilator 30 09/30/20 20:00 98.1 97 17 123/62 (82) 100 09/30/20 20:00 30 09/30/20 20:00 Mechanical Ventilator 09/30/20 19:23 76 09/30/20 18:59 74 18 30 09/30/20 16:00 Mechanical Ventilator 09/30/20 16:00 69 09/30/20 16:00 98.4 73 19 119/52 (74) 99 09/30/20 16:00 30 I&O Intake and Output 09/30/20 10/01/20 19:00 07:00 Intake Total 850 ml 1450 ml Output Total 650 ml Balance 850 ml 800 ml Free Water 250 ml IV Total 550 ml 600 ml Tube Feeding 300 ml 600 ml Output Urine Total 500 ml Stool Total 150 ml Dressing: saturated Cardiovascular: RSR Respiratory: decreased breath sounds Abdomen: soft, non-tender, present bowel sounds Extremities: no tenderness, no cyanosis Laboratory Tests Test 09/30/20 18:37 09/30/20 23:32 10/01/20 06:29 10/01/20 12:24 POC Whole Blood Glucose 93 MG/DL (74-106) 101 MG/DL (74-106) 116 MG/DL (74-106) H 96 MG/DL (74-106) Plan Problems: (1) Pneumonia (2) Functional quadriplegia (3) Person under investigation for COVID-19 (4) Chronic respiratory failure (5) Dehydration (6) Hypernatremia (7) Hypothyroidism (8) Pyelonephritis (9) Protein calorie malnutrition Assessment & Plan: DAILY ESTIMATED NEEDS: Needs based on Wound, critical care 57.5kg abw 25-30 kcals/kg 1650-2847 total kcals 1.25-2 g protein/kg 72-115 g total protein 25-30 mL/kg 7055-5629 total fluid mLs NUTRITION DIAGNOSIS: * Increased kcal/prot needs R/T wound healing as evidenced by pt w/ h/o stage 4 sacral wound, eval is pending. * Swallowing difficulty R/T dysphagia, respiratory status as evidenced by pt is Trach and PEG dep. ENTERAL NUTRITION RECOMMENDATIONS: Glucerna 1.2 @ 55ml/hr x 24 hrs to provide 1320ml, 1584 kcal, 79g pro, 1063ml free H2O * As medically able, start Glucerna 1.2 @35ml/hr for 6 hrs, advance as tolerated q4-6 to goal. * Add TYRESE in 4oz water BID via PEG for wound healing * HOB over 30 degrees/ water flush per MD ADDITIONAL RECOMMENDATIONS: * Calibrated bedscale wt for accurate CBW * Wound healing: TYRESE BID, Vit C 250mg BID F/up w/ WC eval * Monitor lytes, replete as needed * Monitor BGs w/ TF-> bed side BG checks + NISS (10) Failure to thrive (child) (11) Sacral decubitus ulcer Assessment & Plan: Pt presented on admission with Tracheostomy, GT, and multiple Pressure injuries. No erythema or evidence of skin breakdown under tracheal collar. dry dark brown skin plaque noted at R lateral chest to R flank. Full thickness stage 4 Sacral Pressure Injury with undermined borders(L)2cm x (W)2cm x (D)2cm, undermining clockwise 11-3 by 2.3cm @3o'clock.Ability to accur ately assess base of wound is not fully appreciated secondary to shape of wound. (+) Epibole along edges of wound. Silver Nitrate sticks application applied to Borders. Bone is palpable when probed.Small amt brown exudate noted. No odor noted. Tasley Atrophic scar periwound. Resolving Pressure Injury R Ischium. Tasley epithelial noted at base of wound. Intact serous Blister noted to monica/upper L thigh. No erythema or changes in skin temp at affected site. Reabsorbing DTPI L Hallux. Base of Pressure injury is dark brown,dry without erythema,induration or fluctuance. L Heel is boggy with non-blanchable erythema. R Heel is boggy but blanchable. Tx.Plan: Cleanse Sacral wound with Saline. Loosely pack with Therahoney impregnated Kerlix.Apply Moisture Barrier Paste periwound. Cover with Optifoam drsg every 3 days and prn. Apply Moisture Barrier Paste to R Ischium. Cover with Optifoam drsg. Change every 3 days and prn. Apply Phytoplex Skin Nourishing lotion to Lateral R chest /R Flank Daily. Apply Cavilon Skin Barrier to R and L Heel. Cover each heel with Optifoam drsg.Change every 7 days and prn. Reposition at least every 2hours or as tolerated. Off-load heels with pillow. 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 No mass. Gallbladder and bile ducts: Unremarkable. No calcified stones. No ductal dilation. Pancreas: Unremarkable. No mass. No ductal dilation. Spleen: Unremarkable. No splenomegaly. Adrenals: Unremarkable. No mass. Kidneys and ureters: There are at least 4 stones identified in the distal right ureter with mild right hydronephrosis and hydroureter. The largest, most distal stone, just proximal to the UVJ measures 12 x 6 mm. There are two 2-3 mm stones in the more proximal ureter as well as a fourth stone measuring 13 x 7 mm. There is a nonobstructing stone in the right renal pelvis measuring 13 x 14 mm as well as a stone in the right lower pole calyx measuring 11 x 7 mm. There are multiple nonobstructing left renal stones ranging from 3-10 mm in diameter. No left hydronephrosis identified. Stomach and bowel: Unremarkable. No obstruction. No mucosal thickening. PELVIS: Appendix: No findings to suggest acute appendicitis. Bladder: Unremarkable. No mass. Reproductive: Unremarkable as visualized. ABDOMEN and PELVIS: Intraperitoneal space: Unremarkable. No free air. No significant fluid collection. Bones/joints: No acute fracture. No dislocation. Soft tissues: Unremarkable. Vasculature: Unremarkable. No abdominal aortic aneurysm. Lymph nodes: Unremarkable. No enlarged lymph nodes. Tubes, lines and devices: There is a gastrostomy tube in good position. IMPRESSION: 1. There are at least 4 stones identified in the distal right ureter with mild right hydronephrosis and hydroureter. The largest, most distal stone, just proximal to the UVJ measures 12 x 6 mm. There are two 2-3 mm stones in the more proximal ureter as well as a fourth stone measuring 13 x 7 mm. 2. There is a nonobstructing stone in the right renal pelvis measuring 13 x 14 mm as well as a stone in the right lower pole calyx measuring 11 x 7 mm. (14) UTI (urinary tract infection) (15) Anemia (16) Dysphagia (17) Hypoalbuminemia (18) Iron deficiency (19) At high risk for aspiration (20) Parkinson disease (21) Dementia (22) Elevated CEA (23) Paroxysmal A-fib (24) Pancytopenia (25) Hypothyroidism (26) Electrolyte imbalance Holland Petty Oct 01, 2020 15:50
[2020-10-01 16:00] VITALS: BP 129/50
--- NOTE | 2020-10-01 19:01 | General Progress Note ---
Subjective Allergies: Coded Allergies: No Known Allergies (Unverified , 11/22/15) Subjective Above noted Tolerating TF Non verbal Urology noted Objective Last 24 Hour Vital Signs Date Time Temp Pulse Resp B/P (MAP) Pulse Ox O2 Delivery O2 Flow Rate FiO2 10/01/20 16:00 30 10/01/20 16:00 Mechanical Ventilator 10/01/20 15:30 69 18 30 10/01/20 12:00 30 10/01/20 12:00 99.0 68 14 125/57 (79) 100 10/01/20 12:00 Mechanical Ventilator 10/01/20 11:42 76 10/01/20 08:00 72 10/01/20 08:00 98.2 71 16 112/59 (76) 100 10/01/20 08:00 30 10/01/20 08:00 Mechanical Ventilator 10/01/20 07:10 75 18 30 10/01/20 04:00 98.0 77 20 139/66 (90) 100 10/01/20 04:00 30 10/01/20 04:00 Mechanical Ventilator 10/01/20 04:00 76 10/01/20 00:00 99.1 72 19 139/69 (92) 100 10/01/20 00:00 Mechanical Ventilator 10/01/20 00:00 30 10/01/20 00:00 75 09/30/20 23:38 79 20 30 09/30/20 23:38 79 21 100 Mechanical Ventilator 30 09/30/20 20:00 98.1 97 17 123/62 (82) 100 09/30/20 20:00 30 09/30/20 20:00 Mechanical Ventilator 09/30/20 19:23 76 Intake and Output 09/30/20 10/01/20 19:00 07:00 Intake Total 850 ml 1450 ml Output Total 650 ml Balance 850 ml 800 ml Free Water 250 ml IV Total 550 ml 600 ml Tube Feeding 300 ml 600 ml Output Urine Total 500 ml Stool Total 150 ml Laboratory Tests 09/30/20 23:32: POC Whole Blood Glucose 101 10/01/20 06:29: POC Whole Blood Glucose 116H 10/01/20 12:24: POC Whole Blood Glucose 96 10/01/20 17:50: POC Whole Blood Glucose 102 Height (Feet): 5 Height (Inches): 3.00 Weight (Pounds): 145 Objective debilitated Elderly woman on vent NCAT neck (+) trach coarse BS RR abd soft , flat, (+) GT no edema, (++) contractures Assessment/Plan Status: unchanged Assessment/Plan: Assessment - Urolithiasis with hydronephrosis - GT site drainage/discharge - resolved - Leukocytosis - Rising Alk phos - OBS - Resp failure, s/p Trach - s/p PEG for dysphagia, - Parkinsons - Schizophrenia - h/o decub ulcers - Severe anemia Recommendations - Urology f/u - Re check UA - GT care - Elevate HOB - monitor labs - abx per ID Tana Romano MD Oct 01, 2020 19:01
--- NOTE | 2020-10-01 19:30 | NUR ---
NURSE HAND-OFF REPORT: Important Events on Shift: stablr Patient Status: Diet: Pending Orders: Pending Results/Labs: Pending MD notification: Latest Vital Signs: Temperature 98.1 , Pulse 74 , B/P 129 /50 , Respiratory Rate 19 , O2 SAT 100 , Mechanical Ventilator, O2 Flow Rate 50.0 . Vital Sign Comment: EKG Rhythm: Sinus Rhythm Rhythm change?: N MD Notified?: - MD Response: Latest [place] Fall Score: 50 Fall Risk: High Risk Safety Measures: Call light Within Reach, Bed Alarm Zone 2, Side Rails Side Rails x3, Bed position Low and Locked. Fall Precautions: Yellow Socks Yellow Gown Door Sign Report given to CRISTY Durbin.
--- NOTE | 2020-10-01 19:35 | NUR ---
NURSE NOTES: Received patient from Jamir MUNIZ.Patient is on Trach to vent , settings are AC12 TV 400 Fio2 30% PEEP 5 with no respiratory distress. o2 sat 100%. on GTF with Glucerna 1.2 running at 50cc/hr without residual. Kept elevate HOB at 30degrees.No s/s of pain at this time.Rectal tube and purewick in place.SR on monitor. vss. Afebrile. NS infusing at 50cc/hr.bed in lowest position and locked, bed alarm on. will continue plan of care.
--- NOTE | 2020-10-01 19:35 | Cardiac Electrophysiology PN ---
Assessment/Plan Assessment/Plan 1. Hypertension, currently blood pressure stable. On p.r.n. Hydralazine and clonidine 2. VDRF status post tracheostomy on 30% FiO2, in sinus rhythm. COVID was negative. 3. Severe anemia, hemoglobin 7.5. S/P blood transfusion. Etiology is not clear at this time, but creatinine is within normal range. 4. Elevated BNP of more than 4000. Echo EF 65% 5. Dysphagia, status post PEG replacement 09/22/20. 6. VRE sepsis ( Amp sensitive), Gram positive bacteremia, Pseudomonas pneumonia, E coli UTI, on iv Abx per ID WBC 17K 7. Sacral Decubitus 8. Multiple ureteral stone. in the distal right ureter a nonobstructing stone in the right renal pelvis FU urology DW RN Subjective Subjective Off covid isolation. GT replaced 09/22/20 On the Vent with 30% Fio2 off restraints.In SR on iv ABx Had CT abdomen that showed at least 4 stones identified in the distal right ureter with mild right hydronephrosis and hydroureter. The largest, most distal stone, just proximal to the UVJ measures 12 x 6 mm. There is a nonobstructing stone in the right renal pelvis measuring 13 x 14 mm as well as a stone in the right lower pole calyx measuring 11 x 7 mm. Objective Last 24 Hour Vital Signs Date Time Temp Pulse Resp B/P (MAP) Pulse Ox O2 Delivery O2 Flow Rate FiO2 10/01/20 19:26 74 19 30 10/01/20 16:00 30 10/01/20 16:00 Mechanical Ventilator 10/01/20 16:00 98.1 67 15 129/50 (76) 100 10/01/20 15:35 67 10/01/20 15:30 69 18 30 10/01/20 12:00 30 10/01/20 12:00 99.0 68 14 125/57 (79) 100 10/01/20 12:00 Mechanical Ventilator 10/01/20 11:42 76 10/01/20 08:00 72 10/01/20 08:00 98.2 71 16 112/59 (76) 100 10/01/20 08:00 30 10/01/20 08:00 Mechanical Ventilator 10/01/20 07:10 75 18 30 10/01/20 04:00 98.0 77 20 139/66 (90) 100 10/01/20 04:00 30 10/01/20 04:00 Mechanical Ventilator 10/01/20 04:00 76 10/01/20 00:00 99.1 72 19 139/69 (92) 100 10/01/20 00:00 Mechanical Ventilator 10/01/20 00:00 30 10/01/20 00:00 75 09/30/20 23:38 79 20 30 09/30/20 23:38 79 21 100 Mechanical Ventilator 30 09/30/20 20:00 98.1 97 17 123/62 (82) 100 09/30/20 20:00 30 09/30/20 20:00 Mechanical Ventilator Intake and Output 09/30/20 10/01/20 19:00 07:00 Intake Total 850 ml 1450 ml Output Total 650 ml Balance 850 ml 800 ml Free Water 250 ml IV Total 550 ml 600 ml Tube Feeding 300 ml 600 ml Output Urine Total 500 ml Stool Total 150 ml Laboratory Tests Test 09/30/20 23:32 10/01/20 06:29 10/01/20 12:24 10/01/20 17:50 POC Whole Blood Glucose 101 MG/DL (74-106) 116 MG/DL (74-106) H 96 MG/DL (74-106) 102 MG/DL (74-106) Objective HEAD AND NECK: No JVD.S/P Trach LUNGS: Coarse rhonchi. CARDIOVASCULAR: Regular S1 and S2 with no gallop. ABDOMEN: Status post PEG. EXTREMITIES: 1+ pitting edema. Flex Bess MD Oct 01, 2020 19:35
[2020-10-01 20:00] VITALS: BP 131/67
[2020-10-02] VITALS: BP 155/67
--- NOTE | 2020-10-02 01:00 | NUR ---
NURSE NOTES: Patient asleep with no acute distress. Tolerating well with current vent settings. o2 [id number]%. TF also tolerated well without residual.No s/s of pain. Turned and repositioned. VSS. Afebrile.
[2020-10-02 04:00] VITALS: BP 129/76
[2020-10-02 04:36] LABS: HEMATOCRIT 29.5 % (37.0-47.0); HEMOGLOBIN 9.7 G/DL (12.0-16.0); MEAN CORPUSCULAR VOLUME 96 FL (80-99); PLATELET COUNT 274 K/UL (150-450); RED BLOOD COUNT 3.07 M/UL (4.20-5.40); RED CELL DISTRIBUTION WIDTH 17.3 % (11.6-14.8); WHITE BLOOD COUNT 14.9 K/UL (4.8-10.8)
[2020-10-02 05:22] LABS: ALANINE AMINOTRANSFERASE 15 U/L (12-78); ALBUMIN 2.4 G/DL (3.4-5.0); ALBUMIN/GLOBULIN RATIO 0.5 (1.0-2.7); ALKALINE PHOSPHATASE 348 U/L (46-116); ANION GAP 2 mmol/L (5-15); ASPARTATE AMINO TRANSFERASE 20 U/L (15-37); BILIRUBIN,TOTAL 0.4 MG/DL (0.2-1.0); BLOOD UREA NITROGEN 17 mg/dL (7-18); CALCIUM 9.8 MG/DL (8.5-10.1); CARBON DIOXIDE 29 MMOL/L (21-32); CHLORIDE 107 MMOL/L (98-107); CREATININE 0.5 MG/DL (0.55-1.30); POTASSIUM 4.9 MMOL/L (3.5-5.1); SODIUM 138 MMOL/L (136-145)
[2020-10-02 05:24] LABS: PHOSPHORUS 2.6 MG/DL (2.5-4.9)
[2020-10-02 08:00] VITALS: BP 140/63
--- NOTE | 2020-10-02 08:08 | NUR ---
NURSE HAND-OFF REPORT: Important Events on Shift:N Patient Status: STABLE Diet:gtf with Glucerna1.2 at 50cc/hr Pending Orders: N Pending Results/Labs:N Pending MD notification:N Latest Vital Signs: Temperature 98.1 , Pulse 65 , B/P 129 /76 , Respiratory Rate 16 , O2 SAT 100 , Mechanical Ventilator, O2 Flow Rate 50.0 . Vital Sign Comment: STABLE EKG Rhythm: Sinus Rhythm Rhythm change?: N MD Notified?: - MD Response: Latest [place] Fall Score: 50 Fall Risk: High Risk Safety Measures: Call light Within Reach, Bed Alarm Zone 2, Side Rails Side Rails x3, Bed position Low and Locked. Fall Precautions: Yellow Socks Yellow Gown Door Sign Report given to CRISTY GARCÍA.
[2020-10-02] MEDS: Pantoprazole Inj IVP SCH ×2 (08:46→20:11)
[2020-10-02] MEDS: Ascorbic Acid 500mg tab ORAL SCH ×2 (08:46→17:27)
--- NOTE | 2020-10-02 08:50 | General Progress Note ---
Subjective Constitutional: Reports: weakness Allergies: Coded Allergies: No Known Allergies (Unverified , 11/22/15) All Systems: reviewed and negative except above Subjective trach vent altered Objective Last 24 Hour Vital Signs Date Time Temp Pulse Resp B/P (MAP) Pulse Ox O2 Delivery O2 Flow Rate FiO2 10/02/20 08:00 30 10/02/20 04:00 30 10/02/20 04:00 68 10/02/20 04:00 Mechanical Ventilator 10/02/20 04:00 98.1 65 16 129/76 (93) 100 10/02/20 00:22 77 18 30 10/02/20 00:00 67 10/02/20 00:00 98.2 78 26 155/67 (96) 98 10/02/20 00:00 Mechanical Ventilator 10/02/20 00:00 30 10/01/20 20:00 30 10/01/20 20:00 98.0 70 18 131/67 (88) 97 10/01/20 20:00 Mechanical Ventilator 10/01/20 20:00 68 10/01/20 19:26 74 19 30 10/01/20 16:00 30 10/01/20 16:00 Mechanical Ventilator 10/01/20 16:00 98.1 67 15 129/50 (76) 100 10/01/20 15:35 67 10/01/20 15:30 69 18 30 10/01/20 12:00 30 10/01/20 12:00 99.0 68 14 125/57 (79) 100 10/01/20 12:00 Mechanical Ventilator 10/01/20 11:42 76 Intake and Output 10/01/20 10/02/20 19:00 07:00 Intake Total 650 ml 1375 ml Output Total 550 ml Balance 650 ml 825 ml Free Water 100 ml 200 ml IV Total 575 ml Tube Feeding 550 ml 600 ml Output Urine Total 500 ml Stool Total 50 ml Laboratory Tests 10/01/20 12:24: POC Whole Blood Glucose 96 10/01/20 17:50: POC Whole Blood Glucose 102 10/01/20 23:34: POC Whole Blood Glucose 90 10/02/20 03:11: White Blood Count 14.9H, Red Blood Count 3.07L, Hemoglobin 9.7L, Hematocrit 29.5L, Mean Corpuscular Volume 96, Mean Corpuscular Hemoglobin 31.5H, Mean Corpuscular Hemoglobin Concent 32.8, Red Cell Distribution Width 17.3H, Platelet Count 274, Mean Platelet Volume 7.5, Neutrophils (%) (Auto) , Lymphocytes (%) (Auto) , Monocytes (%) (Auto) , Eosinophils (%) (Auto) , Basophils (%) (Auto) , Differential Total Cells Counted 100, Neutrophils % (Manual) 29L, Lymphocytes % (Manual) 9L, Monocytes % (Manual) 8, Eosinophils % (Manual) 54H, Basophils % (Manual) 0, Band Neutrophils 0, Platelet Estimate Adequate, Platelet Morphology Normal, Hypochromasia 1+, Anisocytosis 1+, Sodium Level 138, Potassium Level 4.9, Chloride Level 107, Carbon Dioxide Level 29, Anion Gap 2L, Blood Urea Nitrogen 17, Creatinine 0.5L, Estimat Glomerular Filtration Rate > 60, Glucose Level 97, Calcium Level 9.8, Phosphorus Level 2.6, Magnesium Level 1.7L, Total Bilirubin 0.4, Aspartate Amino Transf (AST/SGOT) 20, Alanine Aminotransferase (ALT/SGPT) 15, Alkaline Phosphatase 348H, Total Protein 7.3, Albumin 2.4L, Globulin 4.9, Albumin/Globulin Ratio 0.5L 10/02/20 06:42: POC Whole Blood Glucose 105 Height (Feet): 5 Height (Inches): 3.00 Weight (Pounds): 145 General Appearance: lethargic EENT: normal ENT inspection Neck: normal alignment Cardiovascular: normal peripheral pulses, normal rate, regular rhythm Respiratory/Chest: chest wall non-tender, lungs clear, normal breath sounds Abdomen: normal bowel sounds, non tender, soft Extremities: normal inspection Edema: no edema noted Arm (L), no edema noted Arm (R), no edema noted Leg (L), no edema noted Leg (R), no edema noted Pedal (L), no edema noted Pedal (R), no edema noted Generalized Neurologic: motor weakness Skin: normal pigmentation, warm/dry Assessment/Plan Problem List: (1) Functional quadriplegia ICD Codes: R53.2 - Functional quadriplegia SNOMED: 493706727675328 (2) Person under investigation for COVID-19 ICD Codes: Z20.828 - Contact with and (suspected) exposure to other viral communicable diseases SNOMED: 751492551 (3) Chronic respiratory failure ICD Codes: J96.10 - Chronic respiratory failure, unspecified whether with hypoxia or hypercapnia SNOMED: 76279875 (4) Dehydration ICD Codes: E86.0 - Dehydration SNOMED: 36506134 (5) Hypernatremia ICD Codes: E87.0 - Hyperosmolality and hypernatremia SNOMED: 904209753 (6) Hypothyroidism ICD Codes: E03.9 - Hypothyroidism, unspecified SNOMED: 94240580 (7) Pyelonephritis ICD Codes: N12 - Tubulo-interstitial nephritis, not specified as acute or chronic SNOMED: 30928595 (8) Protein calorie malnutrition ICD Codes: E46 - Unspecified protein-calorie malnutrition SNOMED: 798978914 (9) Failure to thrive (child) ICD Codes: R62.51 - Failure to thrive (child) SNOMED: 276784447 (10) Sacral decubitus ulcer ICD Codes: L89.159 - Pressure ulcer of sacral region, unspecified stage SNOMED: 642184538 (11) Tracheostomy dependence ICD Codes: Z93.0 - Tracheostomy status SNOMED: 051205168 (12) Pneumonia ICD Codes: J18.9 - Pneumonia, unspecified organism SNOMED: 474459815 Qualifiers: Qualified Codes: J18.9 - Pneumonia, unspecified organism (13) Hypothyroidism ICD Codes: E03.9 - Hypothyroidism, unspecified SNOMED: 34570269 (14) Electrolyte imbalance ICD Codes: E87.8 - Other disorders of electrolyte and fluid balance, not elsewhere classified SNOMED: 592200838 (15) Sepsis ICD Codes: A41.9 - Sepsis, unspecified organism SNOMED: 36943456 (16) UTI (urinary tract infection) ICD Codes: N39.0 - Urinary tract infection, site not specified SNOMED: 07888439 Qualifiers: Qualified Codes: N39.0 - Urinary tract infection, site not specified (17) Anemia ICD Codes: D64.9 - Anemia, unspecified SNOMED: 744061532 Qualifiers: Qualified Codes: D64.9 - Anemia, unspecified (18) Dysphagia ICD Codes: R13.10 - Dysphagia, unspecified SNOMED: 12323069, 012729992 (19) Hypoalbuminemia ICD Codes: E88.09 - Other disorders of plasma-protein metabolism, not elsewhere classified SNOMED: 178857257 (20) Iron deficiency ICD Codes: E61.1 - Iron deficiency SNOMED: 95612935 (21) At high risk for aspiration ICD Codes: Z91.89 - Other specified personal risk factors, not elsewhere classified SNOMED: 701981679 (22) Parkinson disease ICD Codes: G20 - Parkinson's disease SNOMED: 85579187 (23) Dementia ICD Codes: F03.90 - Unspecified dementia without behavioral disturbance SNOMED: 77532453 (24) Elevated CEA ICD Codes: R97.0 - Elevated carcinoembryonic antigen [CEA] SNOMED: 38399591, 523755799 (25) Paroxysmal A-fib ICD Codes: I48.0 - Paroxysmal atrial fibrillation SNOMED: 355953323 (26) Pancytopenia ICD Codes: D61.818 - Other pancytopenia SNOMED: 657701110 Status: unchanged Assessment/Plan: vent abx cbc bmp am Tony Dupree DO Oct 02, 2020 08:50
--- NOTE | 2020-10-02 10:53 | NUR ---
NURSE NOTES: Dr. Dupree and Dr. Chau notified Magnesium level 1.7,no new orders
[2020-10-02 12:00] VITALS: BP 133/72
--- NOTE | 2020-10-02 12:05 | Hematology/Onc Progress Note ---
Assessment/Plan Assessment/Plan Imaging 07/01/20 cxr Bilateral patchy airspace opacities. Differential includes multifocal pneumonia and pulmonary edema. 09/16/20 cxr b/l infiltrates noted Assessment and Recommendations # Anemia of iron deficiency, has been persistent for months, now improved, as ferritin better --> Anemia workup has been ordered--> improved --> No evidence of hemolysis is noted, peripheral smear has been reviewed. --> Hgb goal >7. Transfuse prn. --> Iron iv not needed any further --> Medications have been reviewed --> gb 9-->8.4->>>>7.5-->9.4-->9->10-->9.4->10.1-->10.5-->10.2--> 9.7 # Right breast calcifications --> does not have a breast mass on exam --> f/u as outpatient with mammo as needed --> do not do a us breast here # Thrombocytopenia - potential causes multifactorial, evaluate liver and viral etiologies to begin, also could be related to underlying medications, no wimproved --> Hep panel and HIV prior negative -> plt 183->203->199-->125->130k --> abx # Leukocytosis with Pna --> antibiotics per id --> wbc 16->10.8-->16-->18--> 14.9 --> smear is noted # Sepsis --> antibiotics per Infectious Disease. --> ABX vanc/zosyn->meropenem # Dehydration. --> PT and Dietary evaluation. # Hypertension --> Blood pressure control. # Dvt ppx scds The timing of this note does not necessarily reflect the time of the patient was seen Greatly appreciate consultation! Subjective Allergies: Coded Allergies: No Known Allergies (Unverified , 11/22/15) Subjective Subjective: 09/18 labs are noted, no bleeding, seen by pulm, cbc is pending 09/19 gtube is running, meds reviewed, labs noted 09/20 labs reviewed, meds noted, cbc is pending, vanc was added recently 09/21 labs reviewed, meds noetd, hgb 10, bactrim, yovani, vanc 09/22 is satting well on the vent, abx, labs still pending for am 09/23 remains on vent, not in acute distress, no bleeding, no night sweats 09/25 labs pending, on trach, vent gtube, meds reviewed, feeds ongoing 09/26 obtunded, labs pending, trach/vent, no bleeding, meds noted 09/27 pending cbc, is s/p peg feeds, hany/trach 09/28 obtunded, no events, s/p peg, vent/trach, cleaned per Rn 09/29 nv, t/v, no night sweats, meds noted, no bleeding 09/30 nv, no bleeding, stones noted, with hydro on ct, labs reviewed 1: vent trach tolerating g tube feedings, no bleeding reported 10/02: tolerating vent settings, no distress. seen by uro. Objective Objective Current Medications Medications (Trade) Dose Ordered Sig/Alex Route PRN Reason Start Time Stop Time Status Last Admin Dose Admin Acetaminophen (Tylenol) 500 mg Q4H PRN ORAL Mild Pain (Pain Scale 1-3) 09/15/20 23:15 10/15/20 23:14 09/23/20 16:49 Acetaminophen (Tylenol) 500 mg Q4H PRN ORAL Temp >100.5 09/15/20 23:15 10/15/20 23:14 09/24/20 16:19 Ascorbic Acid (Vitamin C) 250 mg TWICE A DAY ORAL 09/19/20 18:00 10/19/20 17:59 10/02/20 08:46 Hydralazine HCl (Apresoline) 10 mg Q2H PRN IV For High Blood Pressure 09/17/20 17:00 12/16/20 16:59 Levothyroxine Sodium (Synthroid) 50 mcg DAILY IV 09/26/20 13:00 10/26/20 12:59 10/02/20 08:45 Magnesium Sulfate 100 ml @ 100 mls/hr Q1H IVPB 10/02/20 11:00 10/02/20 12:59 Multivitamins (Multivitamins) 1 tab DAILY ORAL 09/20/20 09:00 10/20/20 08:59 10/02/20 08:46 Pantoprazole (Protonix) 40 mg EVERY 12 HOURS IVP 09/17/20 14:15 10/17/20 14:14 10/02/20 08:46 Last 24 Hour Vital Signs Date Time Temp Pulse Resp B/P (MAP) Pulse Ox O2 Delivery O2 Flow Rate FiO2 10/02/20 08:00 98.4 72 16 140/63 (88) 100 10/02/20 08:00 30 10/02/20 07:47 66 10/02/20 04:00 30 10/02/20 04:00 68 10/02/20 04:00 Mechanical Ventilator 10/02/20 04:00 98.1 65 16 129/76 (93) 100 10/02/20 00:22 77 18 30 10/02/20 00:00 67 10/02/20 00:00 98.2 78 26 155/67 (96) 98 10/02/20 00:00 Mechanical Ventilator 10/02/20 00:00 30 10/01/20 20:00 30 10/01/20 20:00 98.0 70 18 131/67 (88) 97 10/01/20 20:00 Mechanical Ventilator 10/01/20 20:00 68 10/01/20 19:26 74 19 30 10/01/20 16:00 30 10/01/20 16:00 Mechanical Ventilator 10/01/20 16:00 98.1 67 15 129/50 (76) 100 10/01/20 15:35 67 10/01/20 15:30 69 18 30 10/01/20 12:00 30 10/01/20 12:00 99.0 68 14 125/57 (79) 100 10/01/20 12:00 Mechanical Ventilator 10/01/20 11:42 76 10/01/20 08:00 72 10/01/20 08:00 98.2 71 16 112/59 (76) 100 10/01/20 08:00 30 10/01/20 08:00 Mechanical Ventilator 10/01/20 07:10 75 18 30 10/01/20 04:00 98.0 77 20 139/66 (90) 100 10/01/20 04:00 30 10/01/20 04:00 Mechanical Ventilator 10/01/20 04:00 76 10/01/20 00:00 99.1 72 19 139/69 (92) 100 10/01/20 00:00 Mechanical Ventilator 10/01/20 00:00 30 10/01/20 00:00 75 09/30/20 23:38 79 20 30 09/30/20 23:38 79 21 100 Mechanical Ventilator 30 09/30/20 20:00 98.1 97 17 123/62 (82) 100 09/30/20 20:00 30 09/30/20 20:00 Mechanical Ventilator 09/30/20 19:23 76 09/30/20 18:59 74 18 30 09/30/20 16:00 Mechanical Ventilator 09/30/20 16:00 69 09/30/20 16:00 98.4 73 19 119/52 (74) 99 09/30/20 16:00 30 09/30/20 14:31 67 16 30 Intake and Output 10/01/20 10/02/20 19:00 07:00 Intake Total 650 ml 1375 ml Output Total 550 ml Balance 650 ml 825 ml Free Water 100 ml 200 ml IV Total 575 ml Tube Feeding 550 ml 600 ml Output Urine Total 500 ml Stool Total 50 ml Labs Test 09/29/20 12:07 09/29/20 17:52 09/30/20 00:40 09/30/20 03:40 POC Whole Blood Glucose 94 MG/DL (74-106) 94 MG/DL (74-106) 72 MG/DL (74-106) White Blood Count 17.9 K/UL (4.8-10.8) Red Blood Count 3.24 M/UL (4.20-5.40) Hemoglobin 10.2 G/DL (12.0-16.0) Hematocrit 33.0 % (37.0-47.0) Mean Corpuscular Volume 102 FL (80-99) Mean Corpuscular Hemoglobin 31.6 PG (27.0-31.0) Mean Corpuscular Hemoglobin Concent 31.0 G/DL (32.0-36.0) Red Cell Distribution Width 16.3 % (11.6-14.8) Platelet Count 254 K/UL (150-450) Mean Platelet Volume 7.9 FL (6.5-10.1) Neutrophils (%) (Auto) % (45.0-75.0) Lymphocytes (%) (Auto) % (20.0-45.0) Monocytes (%) (Auto) % (1.0-10.0) Eosinophils (%) (Auto) % (0.0-3.0) Basophils (%) (Auto) % (0.0-2.0) Differential Total Cells Counted 100 Neutrophils % (Manual) 37 % (45-75) Lymphocytes % (Manual) 9 % (20-45) Monocytes % (Manual) 9 % (1-10) Eosinophils % (Manual) 44 % (0-3) Basophils % (Manual) 1 % (0-2) Band Neutrophils 0 % (0-8) Platelet Estimate Adequate Platelet Morphology Normal Hypochromasia 1+ Anisocytosis 1+ Macrocytosis 1+ Sodium Level 139 MMOL/L (136-145) Potassium Level 4.9 MMOL/L (3.5-5.1) Chloride Level 108 MMOL/L (98-107) Carbon Dioxide Level 27 MMOL/L (21-32) Anion Gap 4 mmol/L (5-15) Blood Urea Nitrogen 22 mg/dL (7-18) Creatinine 0.5 MG/DL (0.55-1.30) Estimat Glomerular Filtration Rate > 60 mL/min (>60) Glucose Level 93 MG/DL (74-106) Calcium Level 8.9 MG/DL (8.5-10.1) Total Bilirubin 0.5 MG/DL (0.2-1.0) Aspartate Amino Transf (AST/SGOT) 23 U/L (15-37) Alanine Aminotransferase (ALT/SGPT) 19 U/L (12-78) Alkaline Phosphatase 359 U/L (46-116) Total Protein 7.3 G/DL (6.4-8.2) Albumin 2.4 G/DL (3.4-5.0) Globulin 4.9 g/dL Albumin/Globulin Ratio 0.5 (1.0-2.7) Test 09/30/20 06:16 09/30/20 12:12 09/30/20 18:37 09/30/20 23:32 POC Whole Blood Glucose 87 MG/DL (74-106) 101 MG/DL (74-106) 93 MG/DL (74-106) 101 MG/DL (74-106) Test 10/01/20 06:29 10/01/20 12:24 10/01/20 17:50 10/01/20 23:34 POC Whole Blood Glucose 116 MG/DL (74-106) 96 MG/DL (74-106) 102 MG/DL (74-106) 90 MG/DL (74-106) Test 10/02/20 03:11 10/02/20 06:42 White Blood Count 14.9 K/UL (4.8-10.8) Red Blood Count 3.07 M/UL (4.20-5.40) Hemoglobin 9.7 G/DL (12.0-16.0) Hematocrit 29.5 % (37.0-47.0) Mean Corpuscular Volume 96 FL (80-99) Mean Corpuscular Hemoglobin 31.5 PG (27.0-31.0) Mean Corpuscular Hemoglobin Concent 32.8 G/DL (32.0-36.0) Red Cell Distribution Width 17.3 % (11.6-14.8) Platelet Count 274 K/UL (150-450) Mean Platelet Volume 7.5 FL (6.5-10.1) Neutrophils (%) (Auto) % (45.0-75.0) Lymphocytes (%) (Auto) % (20.0-45.0) Monocytes (%) (Auto) % (1.0-10.0) Eosinophils (%) (Auto) % (0.0-3.0) Basophils (%) (Auto) % (0.0-2.0) Differential Total Cells Counted 100 Neutrophils % (Manual) 29 % (45-75) Lymphocytes % (Manual) 9 % (20-45) Monocytes % (Manual) 8 % (1-10) Eosinophils % (Manual) 54 % (0-3) Basophils % (Manual) 0 % (0-2) Band Neutrophils 0 % (0-8) Platelet Estimate Adequate Platelet Morphology Normal Hypochromasia 1+ Anisocytosis 1+ Sodium Level 138 MMOL/L (136-145) Potassium Level 4.9 MMOL/L (3.5-5.1) Chloride Level 107 MMOL/L (98-107) Carbon Dioxide Level 29 MMOL/L (21-32) Anion Gap 2 mmol/L (5-15) Blood Urea Nitrogen 17 mg/dL (7-18) Creatinine 0.5 MG/DL (0.55-1.30) Estimat Glomerular Filtration Rate > 60 mL/min (>60) Glucose Level 97 MG/DL (74-106) Calcium Level 9.8 MG/DL (8.5-10.1) Phosphorus Level 2.6 MG/DL (2.5-4.9) Magnesium Level 1.7 MG/DL (1.8-2.4) Total Bilirubin 0.4 MG/DL (0.2-1.0) Aspartate Amino Transf (AST/SGOT) 20 U/L (15-37) Alanine Aminotransferase (ALT/SGPT) 15 U/L (12-78) Alkaline Phosphatase 348 U/L (46-116) Total Protein 7.3 G/DL (6.4-8.2) Albumin 2.4 G/DL (3.4-5.0) Globulin 4.9 g/dL Albumin/Globulin Ratio 0.5 (1.0-2.7) POC Whole Blood Glucose 105 MG/DL (74-106) Height (Feet): 5 Height (Inches): 3.00 Weight (Pounds): 145 Objective PHYSICAL EXAMINATION: GENERAL: obtunded, oriented x1, CARDIOVASCULAR: No murmur. LUNGS: Poor air exchange.+vent/trach ABDOMEN: Bowel sounds distant.++peg EXTREMITIES: No cyanosis, clubbing, or edema NEUROLOGIC: Neck, weakness as well leaning forward.bedbound++ Coco Claros [employer] Oct 02, 2020 12:05
--- NOTE | 2020-10-02 13:04 | Nephrology Progress Note ---
Assessment/Plan Problem List: (1) Electrolyte imbalance (2) Hypothyroidism (3) Functional quadriplegia (4) Sacral decubitus ulcer (5) Hypoalbuminemia (6) Anemia Assessment Unfortunate 75-year old female with chronic trach to vent is being treated for sepsis Has hyponatremia Marked elevated TSH indicative of severe hypothyroidism leading to hyponatremia Anemia Plan October 02: Labs reviewed. Low magnesium replaced. Stable from renal standpoint of view. October 01: No labs drawn today. Will check lab tomorrow. Continue per consultants. Stable from renal standpoint of view. September 30: Labs reviewed. Renal parameters stable. Continue per consultants. September 29: Labs reviewed. Abnormal electrolytes and chemistries addressed. Continue per consultants. September 28: No CHEM panel drawn today. Medication list reviewed. Continue present management. September 27: Labs reviewed. Renal parameters stable. On intravenous Synthroid for severe hypothyroidism. Continue to monitor electrolytes and renal parameters Previously: IV Synthroid given Continue per consultants Monitor renal parameters and electrolytes Subjective ROS Limited/Unobtainable: Yes Objective Objective Last 24 Hour Vital Signs Date Time Temp Pulse Resp B/P (MAP) Pulse Ox O2 Delivery O2 Flow Rate FiO2 10/02/20 12:00 30 10/02/20 08:00 98.4 72 16 140/63 (88) 100 10/02/20 08:00 30 10/02/20 07:47 66 10/02/20 04:00 30 10/02/20 04:00 68 10/02/20 04:00 Mechanical Ventilator 10/02/20 04:00 98.1 65 16 129/76 (93) 100 10/02/20 00:22 77 18 30 10/02/20 00:00 67 10/02/20 00:00 98.2 78 26 155/67 (96) 98 10/02/20 00:00 Mechanical Ventilator 10/02/20 00:00 30 10/01/20 20:00 30 10/01/20 20:00 98.0 70 18 131/67 (88) 97 10/01/20 20:00 Mechanical Ventilator 10/01/20 20:00 68 10/01/20 19:26 74 19 30 10/01/20 16:00 30 10/01/20 16:00 Mechanical Ventilator 10/01/20 16:00 98.1 67 15 129/50 (76) 100 10/01/20 15:35 67 10/01/20 15:30 69 18 30 Intake and Output 10/01/20 10/02/20 19:00 07:00 Intake Total 650 ml 1375 ml Output Total 550 ml Balance 650 ml 825 ml Free Water 100 ml 200 ml IV Total 575 ml Tube Feeding 550 ml 600 ml Output Urine Total 500 ml Stool Total 50 ml Laboratory Tests 10/01/20 17:50: POC Whole Blood Glucose 102 10/01/20 23:34: POC Whole Blood Glucose 90 10/02/20 03:11: White Blood Count 14.9H, Red Blood Count 3.07L, Hemoglobin 9.7L, Hematocrit 29.5L, Mean Corpuscular Volume 96, Mean Corpuscular Hemoglobin 31.5H, Mean Corpuscular Hemoglobin Concent 32.8, Red Cell Distribution Width 17.3H, Platelet Count 274, Mean Platelet Volume 7.5, Neutrophils (%) (Auto) , Lymphocytes (%) (Auto) , Monocytes (%) (Auto) , Eosinophils (%) (Auto) , Basophils (%) (Auto) , Differential Total Cells Counted 100, Neutrophils % (Manual) 29L, Lymphocytes % (Manual) 9L, Monocytes % (Manual) 8, Eosinophils % (Manual) 54H, Basophils % (Manual) 0, Band Neutrophils 0, Platelet Estimate Adequate, Platelet Morphology Normal, Hypochromasia 1+, Anisocytosis 1+, Sodium Level 138, Potassium Level 4.9, Chloride Level 107, Carbon Dioxide Level 29, Anion Gap 2L, Blood Urea Nitrogen 17, Creatinine 0.5L, Estimat Glomerular Filtration Rate > 60, Glucose Level 97, Calcium Level 9.8, Phosphorus Level 2.6, Magnesium Level 1.7L, Total Bilirubin 0.4, Aspartate Amino Transf (AST/SGOT) 20, Alanine Aminotransferase (ALT/SGPT) 15, Alkaline Phosphatase 348H, Total Protein 7.3, Albumin 2.4L, Globulin 4.9, Albumin/Globulin Ratio 0.5L 10/02/20 06:42: POC Whole Blood Glucose 105 10/02/20 12:41: POC Whole Blood Glucose 95 Height (Feet): 5 Height (Inches): 3.00 Weight (Pounds): 145 General Appearance: no apparent distress EENT: other - Trach to vent. Cardiovascular: normal rate Respiratory/Chest: decreased breath sounds Abdomen: distended Fouladian,Dante MD Oct 02, 2020 13:04
--- NOTE | 2020-10-02 13:05 | Pulmonology Progress Note ---
Subjective ROS Limited/Unobtainable: Yes Interval Events: None new Constitutional: Denies: fever HEENT: Repors: no symptoms Respiratory: Reports: no symptoms Cardiovascular: Reports: no symptoms Gastrointestinal/Abdominal: Denies: diarrhea Genitourinary: Reports: no symptoms Allergies: Coded Allergies: No Known Allergies (Unverified , 11/22/15) All Systems: reviewed and negative except above Objective Last 24 Hour Vital Signs Date Time Temp Pulse Resp B/P (MAP) Pulse Ox O2 Delivery O2 Flow Rate FiO2 10/02/20 12:00 30 10/02/20 08:00 98.4 72 16 140/63 (88) 100 10/02/20 08:00 30 10/02/20 07:47 66 10/02/20 04:00 30 10/02/20 04:00 68 10/02/20 04:00 Mechanical Ventilator 10/02/20 04:00 98.1 65 16 129/76 (93) 100 10/02/20 00:22 77 18 30 10/02/20 00:00 67 10/02/20 00:00 98.2 78 26 155/67 (96) 98 10/02/20 00:00 Mechanical Ventilator 10/02/20 00:00 30 10/01/20 20:00 30 10/01/20 20:00 98.0 70 18 131/67 (88) 97 10/01/20 20:00 Mechanical Ventilator 10/01/20 20:00 68 10/01/20 19:26 74 19 30 10/01/20 16:00 30 10/01/20 16:00 Mechanical Ventilator 10/01/20 16:00 98.1 67 15 129/50 (76) 100 10/01/20 15:35 67 10/01/20 15:30 69 18 30 Intake and Output 10/01/20 10/02/20 19:00 07:00 Intake Total 650 ml 1375 ml Output Total 550 ml Balance 650 ml 825 ml Free Water 100 ml 200 ml IV Total 575 ml Tube Feeding 550 ml 600 ml Output Urine Total 500 ml Stool Total 50 ml Objective saturating well on current vent setting General Appearance: no acute distress HEENT: normocephalic, atraumatic, status post trach Respiratory: chest wall non-tender, lungs clear, other - coarse rhonchi Cardiovascular: normal rate, regular rhythm Abdomen: normal bowel sounds, distended Laboratory Tests 10/01/20 17:50: POC Whole Blood Glucose 102 10/01/20 23:34: POC Whole Blood Glucose 90 10/02/20 03:11: White Blood Count 14.9H, Red Blood Count 3.07L, Hemoglobin 9.7L, Hematocrit 29.5L, Mean Corpuscular Volume 96, Mean Corpuscular Hemoglobin 31.5H, Mean Corpuscular Hemoglobin Concent 32.8, Red Cell Distribution Width 17.3H, Platelet Count 274, Mean Platelet Volume 7.5, Neutrophils (%) (Auto) , Lymphocytes (%) (Auto) , Monocytes (%) (Auto) , Eosinophils (%) (Auto) , Basophils (%) (Auto) , Differential Total Cells Counted 100, Neutrophils % (Manual) 29L, Lymphocytes % (Manual) 9L, Monocytes % (Manual) 8, Eosinophils % (Manual) 54H, Basophils % (Manual) 0, Band Neutrophils 0, Platelet Estimate Adequate, Platelet Morphology Normal, Hypochromasia 1+, Anisocytosis 1+, Sodium Level 138, Potassium Level 4. 9, Chloride Level 107, Carbon Dioxide Level 29, Anion Gap 2L, Blood Urea Nitrogen 17, Creatinine 0.5L, Estimat Glomerular Filtration Rate > 60, Glucose Level 97, Calcium Level 9.8, Phosphorus Level 2.6, Magnesium Level 1.7L, Total Bilirubin 0.4, Aspartate Amino Transf (AST/SGOT) 20, Alanine Aminotransferase (ALT/SGPT) 15, Alkaline Phosphatase 348H, Total Protein 7.3, Albumin 2.4L, Globulin 4.9, Albumin/Globulin Ratio 0.5L 10/02/20 06:42: POC Whole Blood Glucose 105 10/02/20 12:41: POC Whole Blood Glucose 95 Current Medications Medications (Trade) Dose Ordered Sig/Alex Route PRN Reason Start Time Stop Time Status Last Admin Dose Admin Acetaminophen (Tylenol) 500 mg Q4H PRN ORAL Mild Pain (Pain Scale 1-3) 09/15/20 23:15 10/15/20 23:14 09/23/20 16:49 Acetaminophen (Tylenol) 500 mg Q4H PRN ORAL Temp >100.5 09/15/20 23:15 10/15/20 23:14 09/24/20 16:19 Ascorbic Acid (Vitamin C) 250 mg TWICE A DAY ORAL 09/19/20 18:00 10/19/20 17:59 10/02/20 08:46 Hydralazine HCl (Apresoline) 10 mg Q2H PRN IV For High Blood Pressure 09/17/20 17:00 12/16/20 16:59 Levothyroxine Sodium (Synthroid) 50 mcg DAILY IV 09/26/20 13:00 10/26/20 12:59 10/02/20 08:45 Multivitamins (Multivitamins) 1 tab DAILY ORAL 09/20/20 09:00 10/20/20 08:59 10/02/20 08:46 Pantoprazole (Protonix) 40 mg EVERY 12 HOURS IVP 09/17/20 14:15 10/17/20 14:14 10/02/20 08:46 Assessment/Plan Assessment/Plan 1. Anemia, likely iron deficiency. - s/p IV iron. - s/p transfusion per Dr. Cazares. 2. Interstitial infiltrates, has pneumonia. - Sputum -> Serratia - Antibiotics per ID. - Continue supplemental oxygen; continue ventilator, AC mode.FiO2 30% 3. Sepsis. - Antibiotics per ID. Gm neg rods in sputum CS; confirmed Serratia 4. History of fever. - Currently afebrile. 5. Possible COVID-19 infection. - Swab COVID-19 test negative. - Repeat PCR COVID-19 also negative 6. CHF. - 2D echocardiogram LVEF 60-65%. 7. UTI. - On antibiotics. Has ESBL E. Coli 8. Elevated D-dimer. 9. DVT prophylaxis. - Venous duplex ultrasound negative. - on SCD 10. Chronic Respiratory Failure; continue vent; AC mode 11. Rising alk phos - CT abd showed stones in ureter and renal pelvis - urology recs noted The care for this patient was discussed with my supervising physician Time spent for this case was approximately 31 minutes Uriel Díaz Oct 02, 2020 13:05
--- NOTE | 2020-10-02 13:24 | Surgery Progress Note ---
Surgery Progress Note Subjective Additional Comments afebrile, HD stable, labs stable comfortable no complaints Objective Last 24 Hour Vital Signs Date Time Temp Pulse Resp B/P (MAP) Pulse Ox O2 Delivery O2 Flow Rate FiO2 10/02/20 12:00 30 10/02/20 08:00 98.4 72 16 140/63 (88) 100 10/02/20 08:00 30 10/02/20 07:47 66 10/02/20 04:00 30 10/02/20 04:00 68 10/02/20 04:00 Mechanical Ventilator 10/02/20 04:00 98.1 65 16 129/76 (93) 100 10/02/20 00:22 77 18 30 10/02/20 00:00 67 10/02/20 00:00 98.2 78 26 155/67 (96) 98 10/02/20 00:00 Mechanical Ventilator 10/02/20 00:00 30 10/01/20 20:00 30 10/01/20 20:00 98.0 70 18 131/67 (88) 97 10/01/20 20:00 Mechanical Ventilator 10/01/20 20:00 68 10/01/20 19:26 74 19 30 10/01/20 16:00 30 10/01/20 16:00 Mechanical Ventilator 10/01/20 16:00 98.1 67 15 129/50 (76) 100 10/01/20 15:35 67 10/01/20 15:30 69 18 30 I&O Intake and Output 10/01/20 10/02/20 19:00 07:00 Intake Total 650 ml 1375 ml Output Total 550 ml Balance 650 ml 825 ml Free Water 100 ml 200 ml IV Total 575 ml Tube Feeding 550 ml 600 ml Output Urine Total 500 ml Stool Total 50 ml Dressing: saturated Cardiovascular: RSR Respiratory: decreased breath sounds Abdomen: non-tender, present bowel sounds, non-distended Extremities: no tenderness, no cyanosis Laboratory Tests Test 10/01/20 17:50 10/01/20 23:34 10/02/20 03:11 10/02/20 06:42 POC Whole Blood Glucose 102 MG/DL (74-106) 90 MG/DL (74-106) 105 MG/DL (74-106) White Blood Count 14.9 K/UL (4.8-10.8) H Red Blood Count 3.07 M/UL (4.20-5.40) L Hemoglobin 9.7 G/DL (12.0-16.0) L Hematocrit 29.5 % (37.0-47.0) L Mean Corpuscular Volume 96 FL (80-99) Mean Corpuscular Hemoglobin 31.5 PG (27.0-31.0) H Mean Corpuscular Hemoglobin Concent 32.8 G/DL (32.0-36.0) Red Cell Distribution Width 17.3 % (11.6-14.8) H Platelet Count 274 K/UL (150-450) Mean Platelet Volume 7.5 FL (6.5-10.1) Neutrophils (%) (Auto) % (45.0-75.0) Lymphocytes (%) (Auto) % (20.0-45.0) Monocytes (%) (Auto) % (1.0-10.0) Eosinophils (%) (Auto) % (0.0-3.0) Basophils (%) (Auto) % (0.0-2.0) Differential Total Cells Counted 100 Neutrophils % (Manual) 29 % (45-75) L Lymphocytes % (Manual) 9 % (20-45) L Monocytes % (Manual) 8 % (1-10) Eosinophils % (Manual) 54 % (0-3) H Basophils % (Manual) 0 % (0-2) Band Neutrophils 0 % (0-8) Platelet Estimate Adequate Platelet Morphology Normal Hypochromasia 1+ Anisocytosis 1+ Sodium Level 138 MMOL/L (136-145) Potassium Level 4.9 MMOL/L (3.5-5.1) Chloride Level 107 MMOL/L (98-107) Carbon Dioxide Level 29 MMOL/L (21-32) Anion Gap 2 mmol/L (5-15) L Blood Urea Nitrogen 17 mg/dL (7-18) Creatinine 0.5 MG/DL (0.55-1.30) L Estimat Glomerular Filtration Rate > 60 mL/min (>60) Glucose Level 97 MG/DL (74-106) Calcium Level 9.8 MG/DL (8.5-10.1) Phosphorus Level 2.6 MG/DL (2.5-4.9) Magnesium Level 1.7 MG/DL (1.8-2.4) L Total Bilirubin 0.4 MG/DL (0.2-1.0) Aspartate Amino Transf (AST/SGOT) 20 U/L (15-37) Alanine Aminotransferase (ALT/SGPT) 15 U/L (12-78) Alkaline Phosphatase 348 U/L (46-116) H Total Protein 7.3 G/DL (6.4-8.2) Albumin 2.4 G/DL (3.4-5.0) L Globulin 4.9 g/dL Albumin/Globulin Ratio 0.5 (1.0-2.7) L Test 10/02/20 12:41 POC Whole Blood Glucose 95 MG/DL (74-106) Plan Problems: (1) Pneumonia (2) Functional quadriplegia (3) Person under investigation for COVID-19 (4) Chronic respiratory failure (5) Dehydration (6) Hypernatremia (7) Hypothyroidism (8) Pyelonephritis (9) Protein calorie malnutrition Assessment & Plan: DAILY ESTIMATED NEEDS: Needs based on Wound, critical care 57.5kg abw 25-30 kcals/kg 1543-0374 total kcals 1.25-2 g protein/kg 72-115 g total protein 25-30 mL/kg 0353-0952 total fluid mLs NUTRITION DIAGNOSIS: * Increased kcal/prot needs R/T wound healing as evidenced by pt w/ h/o stage 4 sacral wound, eval is pending. * Swallowing difficulty R/T dysphagia, respiratory status as evidenced by pt is Trach and PEG dep. ENTERAL NUTRITION RECOMMENDATIONS: Glucerna 1.2 @ 55ml/hr x 24 hrs to provide 1320ml, 1584 kcal, 79g pro, 1063ml free H2O * As medically able, start Glucerna 1.2 @35ml/hr for 6 hrs, advance as tolerated q4-6 to goal. * Add TYRESE in 4oz water BID via PEG for wound healing * HOB over 30 degrees/ water flush per MD ADDITIONAL RECOMMENDATIONS: * Calibrated bedscale wt for accurate CBW * Wound healing: TYRESE BID, Vit C 250mg BID F/up w/ WC eval * Monitor lytes, replete as needed * Monitor BGs w/ TF-> bed side BG checks + NISS (10) Failure to thrive (child) (11) Sacral decubitus ulcer Assessment & Plan: Pt presented on admission with Tracheostomy, GT, and multiple Pressure injuries. No erythema or evidence of skin breakdown under tracheal collar. dry dark brown skin plaque noted at R lateral chest to R flank. Full thickness stage 4 Sacral Pressure Injury with undermined borders(L)2cm x (W)2cm x (D)2cm, undermining clockwise 11-3 by 2.3cm @3o'clock.Ability to accurately assess base of wound is not fully appreciated secondary to shape of wound. (+) Epibole along edges of wound. Silver Nitrate sticks application applied to Borders. Bone is palpable when probed.Small amt brown exudate noted. No odor noted. [place] Atrophic scar periwound. Resolving Pressure Injury R Ischium. [place] epithelial noted at base of wound. Intact serous Blister noted to monica/upper L thigh. No erythema or changes in skin temp at affected site. Reabsorbing DTPI L Hallux. Base of Pressure injury is dark brown,dry without erythema,induration or fluctuance. L Heel is boggy with non-blanchable erythema. R Heel is boggy but blanchable. Tx.Plan: Cleanse Sacral wound with Saline. Loosely pack with Therahoney impregnated Kerlix.Apply Moisture Barrier Paste periwound. Cover with Optifoam drsg every 3 days and prn. Apply Moisture Barrier Paste to R Ischium. Cover with Optifoam drsg. Change every 3 days and prn. Apply Phytoplex Skin Nourishing lotion to Lateral R chest /R Flank Daily. Apply Cavilon Skin Barrier to R and L Heel. Cover each heel with Optifoam drsg.Change every 7 days and prn. Reposition at least every 2hours or as tolerated. Off-load heels with pillow. 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 No mass. Gallbladder and bile ducts: Unremarkable. No calcified stones. No ductal dilation. Pancreas: Unremarkable. No mass. No ductal dilation. Spleen: Unremarkable. No splenomegaly. Adrenals: Unremarkable. No mass. Kidneys and ureters: There are at least 4 stones identified in the distal right ureter with mild right hydronephrosis and hydroureter. The largest, most distal stone, just proximal to the UVJ measures 12 x 6 mm. There are two 2-3 mm stones in the more proximal ureter as well as a fourth stone measuring 13 x 7 mm. There is a nonobstructing stone in the right renal pelvis measuring 13 x 14 mm as well as a stone in the right lower pole calyx measuring 11 x 7 mm. There are multiple nonobstructing left renal stones ranging from 3-10 mm in diameter. No left hydronephrosis identified. Stomach and bowel: Unremarkable. No obstruction. No mucosal thickening. PELVIS: Appendix: No findings to suggest acute appendicitis. Bladder: Unremarkable. No mass. Reproductive: Unremarkable as visualized. ABDOMEN and PELVIS: Intraperitoneal space: Unremarkable. No free air. No significant fluid collection. Bones/joints: No acute fracture. No dislocation. Soft tissues: Unremarkable. Vasculature: Unremarkable. No abdominal aortic aneurysm. Lymph nodes: Unremarkable. No enlarged lymph nodes. Tubes, lines and devices: There is a gastrostomy tube in good position. IMPRESSION: 1. There are at least 4 stones identified in the distal right ureter with mild right hydronephrosis and hydroureter. The largest, most distal stone, just proximal to the UVJ measures 12 x 6 mm. There are two 2-3 mm stones in the more proximal ureter as well as a fourth stone measuring 13 x 7 mm. 2. There is a nonobstructing stone in the right renal pelvis measuring 13 x 14 mm as well as a stone in the right lower pole calyx measuring 11 x 7 mm. (14) UTI (urinary tract infection) (15) Anemia (16) Dysphagia (17) Hypoalbuminemia (18) Iron deficiency (19) At high risk for aspiration (20) Parkinson disease (21) Dementia (22) Elevated CEA (23) Paroxysmal A-fib (24) Pancytopenia (25) Hypothyroidism (26) Electrolyte imbalance Holland Petty Oct 02, 2020 13:24
--- NOTE | 2020-10-02 15:35 | General Progress Note ---
Subjective Allergies: Coded Allergies: No Known Allergies (Unverified , 11/22/15) Subjective Above noted Tolerating TF Non verbal Objective Last 24 Hour Vital Signs Date Time Temp Pulse Resp B/P (MAP) Pulse Ox O2 Delivery O2 Flow Rate FiO2 10/02/20 12:00 30 10/02/20 08:00 98.4 72 16 140/63 (88) 100 10/02/20 08:00 30 10/02/20 07:47 66 10/02/20 04:00 30 10/02/20 04:00 68 10/02/20 04:00 Mechanical Ventilator 10/02/20 04:00 98.1 65 16 129/76 (93) 100 10/02/20 00:22 77 18 30 10/02/20 00:00 67 10/02/20 00:00 98.2 78 26 155/67 (96) 98 10/02/20 00:00 Mechanical Ventilator 10/02/20 00:00 30 10/01/20 20:00 30 10/01/20 20:00 98.0 70 18 131/67 (88) 97 10/01/20 20:00 Mechanical Ventilator 10/01/20 20:00 68 10/01/20 19:26 74 19 30 10/01/20 16:00 30 10/01/20 16:00 Mechanical Ventilator 10/01/20 16:00 98.1 67 15 129/50 (76) 100 10/01/20 15:35 67 Intake and Output 10/01/20 10/02/20 19:00 07:00 Intake Total 650 ml 1375 ml Output Total 550 ml Balance 650 ml 825 ml Free Water 100 ml 200 ml IV Total 575 ml Tube Feeding 550 ml 600 ml Output Urine Total 500 ml Stool Total 50 ml Laboratory Tests 10/01/20 17:50: POC Whole Blood Glucose 102 10/01/20 23:34: POC Whole Blood Glucose 90 10/02/20 03:11: White Blood Count 14.9H, Red Blood Count 3.07L, Hemoglobin 9.7L, Hematocrit 29.5L, Mean Corpuscular Volume 96, Mean Corpuscular Hemoglobin 31.5H, Mean Cor puscular Hemoglobin Concent 32.8, Red Cell Distribution Width 17.3H, Platelet Count 274, Mean Platelet Volume 7.5, Neutrophils (%) (Auto) , Lymphocytes (%) (Auto) , Monocytes (%) (Auto) , Eosinophils (%) (Auto) , Basophils (%) (Auto) , Differential Total Cells Counted 100, Neutrophils % (Manual) 29L, Lymphocytes % (Manual) 9L, Monocytes % (Manual) 8, Eosinophils % (Manual) 54H, Basophils % (Manual) 0, Band Neutrophils 0, Platelet Estimate Adequate, Platelet Morphology Normal, Hypochromasia 1+, Anisocytosis 1+, Sodium Level 138, Potassium Level 4.9, Chloride Level 107, Carbon Dioxide Level 29, Anion Gap 2L, Blood Urea Nitrogen 17, Creatinine 0.5L, Estimat Glomerular Filtration Rate > 60, Glucose Level 97, Calcium Level 9.8, Phosphorus Level 2.6, Magnesium Level 1.7L, Total Bilirubin 0.4, Aspartate Amino Transf (AST/SGOT) 20, Alanine Aminotransferase (ALT/SGPT) 15, Alkaline Phosphatase 348H, Total Protein 7.3, Albumin 2.4L, Globulin 4.9, Albumin/Globulin Ratio 0.5L 10/02/20 06:42: POC Whole Blood Glucose 105 10/02/20 12:41: POC Whole Blood Glucose 95 Height (Feet): 5 Height (Inches): 3.00 Weight (Pounds): 145 Objective debilitated Elderly woman on vent NCAT neck (+) trach coarse BS RR abd soft , flat, (+) GT no edema, (++) contractures Assessment/Plan Status: unchanged Assessment/Plan: Assessment - Urolithiasis with hydronephrosis - GT site drainage/discharge - resolved - Leukocytosis - Rising Alk phos - OBS - Resp failure, s/p Trach - s/p PEG for dysphagia, - Parkinsons - Schizophrenia - h/o decub ulcers - Severe anemia Recommendations - Urology f/u - GT care - Elevate HOB - monitor labs - abx per ID Tana Romano MD Oct 02, 2020 15:35
[2020-10-02 16:00] VITALS: BP 116/54
--- NOTE | 2020-10-02 17:42 | Cardiac Electrophysiology PN ---
Assessment/Plan Assessment/Plan 1. Hypertension, currently blood pressure stable. On p.r.n. Hydralazine and clonidine Mildly bradycardic in high 50s 2. VDRF status post tracheostomy on 30% FiO2, in sinus rhythm. COVID was negative. 3. Severe anemia, hemoglobin 7.5. S/P blood transfusion. Etiology is not clear at this time, but creatinine is within normal range. 4. Elevated BNP of more than 4000. Echo EF 65% 5. Dysphagia, status post PEG replacement 09/22/20. 6. VRE sepsis ( Amp sensitive), Gram positive bacteremia, Pseudomonas pneumonia, E coli UTI, on iv Abx per ID WBC 17K 7. Sacral Decubitus 8. Multiple ureteral stone. in the distal right ureter a nonobstructing stone in the right renal pelvis FU urology DW RN Subjective Subjective Off covid isolation. GT replaced 09/22/20 On the Vent with 30% Fio2 off restraints. In SR Had CT abdomen that showed at least 4 stones identified in the distal right ureter with mild right hydronephrosis and hydroureter. The largest, most distal stone, just proximal to the UVJ measures 12 x 6 mm. There is a nonobstructing stone in the right renal pelvis measuring 13 x 14 mm as well as a stone in the right lower pole calyx measuring 11 x 7 mm. In SR in 50s Objective Last 24 Hour Vital Signs Date Time Temp Pulse Resp B/P (MAP) Pulse Ox O2 Delivery O2 Flow Rate FiO2 10/02/20 16:00 58 10/02/20 16:00 Mechanical Ventilator 10/02/20 16:00 30 10/02/20 12:30 Mechanical Ventilator 10/02/20 12:00 71 10/02/20 12:00 97.7 68 17 133/72 (92) 100 10/02/20 12:00 30 10/02/20 08:15 Mechanical Ventilator 10/02/20 08:00 98.4 72 16 140/63 (88) 100 10/02/20 08:00 30 10/02/20 07:47 66 10/02/20 04:00 30 10/02/20 04:00 68 10/02/20 04:00 Mechanical Ventilator 10/02/20 04:00 98.1 65 16 129/76 (93) 100 10/02/20 00:22 77 18 30 10/02/20 00:00 67 10/02/20 00:00 98.2 78 26 155/67 (96) 98 10/02/20 00:00 Mechanical Ventilator 10/02/20 00:00 30 10/01/20 20:00 30 10/01/20 20:00 98.0 70 18 131/67 (88) 97 10/01/20 20:00 Mechanical Ventilator 10/01/20 20:00 68 10/01/20 19:26 74 19 30 Intake and Output 10/01/20 10/02/20 19:00 07:00 Intake Total 650 ml 1375 ml Output Total 550 ml Balance 650 ml 825 ml Free Water 100 ml 200 ml IV Total 575 ml Tube Feeding 550 ml 600 ml Output Urine Total 500 ml Stool Total 50 ml Laboratory Tests Test 10/01/20 17:50 10/01/20 23:34 10/02/20 03:11 10/02/20 06:42 POC Whole Blood Glucose 102 MG/DL (74-106) 90 MG/DL (74-106) 105 MG/DL (74-106) White Blood Count 14.9 K/UL (4.8-10.8) H Red Blood Count 3.07 M/UL (4.20-5.40) L Hemoglobin 9.7 G/DL (12.0-16.0) L Hematocrit 29.5 % (37.0-47.0) L Mean Corpuscular Volume 96 FL (80-99) Mean Corpuscular Hemoglobin 31.5 PG (27.0-31.0) H Mean Corpuscular Hemoglobin Concent 32.8 G/DL (32.0-36.0) Red Cell Distribution Width 17.3 % (11.6-14.8) H Platelet Count 274 K/UL (150-450) Mean Platelet Volume 7.5 FL (6.5-10.1) Neutrophils (%) (Auto) % (45.0-75.0) Lymphocytes (%) (Auto) % (20.0-45.0) Monocytes (%) (Auto) % (1.0-10.0) Eosinophils (%) (Auto) % (0.0-3.0) Basophils (%) (Auto) % (0.0-2.0) Differential Total Cells Counted 100 Neutrophils % (Manual) 29 % (45-75) L Lymphocytes % (Manual) 9 % (20-45) L Monocytes % (Manual) 8 % (1-10) Eosinophils % (Manual) 54 % (0-3) H Basophils % (Manual) 0 % (0-2) Band Neutrophils 0 % (0-8) Platelet Estimate Adequate Platelet Morphology Normal Hypochromasia 1+ Anisocytosis 1+ Sodium Level 138 MMOL/L (136-145) Potassium Level 4.9 MMOL/L (3.5-5.1) Chloride Level 107 MMOL/L (98-107) Carbon Dioxide Level 29 MMOL/L (21-32) Anion Gap 2 mmol/L (5-15) L Blood Urea Nitrogen 17 mg/dL (7-18) Creatinine 0.5 MG/DL (0.55-1.30) L Estimat Glomerular Filtration Rate > 60 mL/min (>60) Glucose Level 97 MG/DL (74-106) Calcium Level 9.8 MG/DL (8.5-10.1) Phosphorus Level 2.6 MG/DL (2.5-4.9) Magnesium Level 1.7 MG/DL (1.8-2.4) L Total Bilirubin 0.4 MG/DL (0.2-1.0) Aspartate Amino Transf (AST/SGOT) 20 U/L (15-37) Alanine Aminotransferase (ALT/SGPT) 15 U/L (12-78) Alkaline Phosphatase 348 U/L (46-116) H Total Protein 7.3 G/DL (6.4-8.2) Albumin 2.4 G/DL (3.4-5.0) L Globulin 4.9 g/dL Albumin/Globulin Ratio 0.5 (1.0-2.7) L Test 10/02/20 12:41 10/02/20 17:35 POC Whole Blood Glucose 95 MG/DL (74-106) 94 MG/DL (74-106) Objective HEAD AND NECK: No JVD.S/P Trach LUNGS: Coarse rhonchi. CARDIOVASCULAR: Regular S1 and S2 with no gallop. ABDOMEN: Status post PEG. EXTREMITIES: 1+ pitting edema. Flex Bess MD Oct 02, 2020 17:42
--- NOTE | 2020-10-02 19:40 | NUR ---
HAND-OFF: Report given to CRISTY Ortega,patient on ventilator,O2 saturation 100 %,stable,need urine for test-endorsed,G tube feeding,2nd bag magnesium infusing,IV site with good blood return,SCD on
--- NOTE | 2020-10-02 19:45 | NUR ---
NURSE NOTES: Pt is awake, opens eyes, non-verbal, obtunded. No signs of distress noted. quality assurance monitor shows SR. O2 saturation is 99% on AC 12, TV 400, FiO2 30%, PEEP 5. Purewick suctions well, rectal tube drains well to gravity. GT intact and dry, running glucerna 1.2 50cc/hr. L hand 22g asymptomatic and flushing well. Skin issues, code status, and safety issues noted and reinforced. HOB elevated, side rails x3, call light within reach, bed alarmed, locked, and in lowest postion. Will continue to monitor. Will continue plan of care.
[2020-10-02 20:00] VITALS: BP 109/56
[2020-10-02 20:19] LABS: APPEARANCE,URINE SLIGHTLY CLOUDY; BILIRUBIN, URINE NEGATIVE (NEGATIVE); COLOR,URINE PALE YELLOW; GLUCOSE, URINE (UA) NEGATIVE (NEGATIVE); KETONES,URINE NEGATIVE (NEGATIVE); LEUKOCYTE ESTERASE ,URINE 1+ (NEGATIVE); NITRITE,URINE NEGATIVE (NEGATIVE); PH,URINE 7 (4.5-8.0); PROTEIN,URINE 2+ (NEGATIVE); UROBILINOGEN,URINE NORMAL MG/DL (0.0-1.0)
--- NOTE | 2020-10-02 22:20 | NUR ---
NURSE NOTES: Pt is awake, obtunded, no acute changes noted. No distress or pain noted. Turned pt, performed oral care, tolerated well. Will continue to monitor.
[2020-10-03] VITALS: BP 128/66
--- NOTE | 2020-10-03 02:11 | NUR ---
NURSE NOTES: Pt is asleep, no signs of distress noted. Will continue to monitor.
[2020-10-03 04:00] VITALS: BP 110/54
--- NOTE | 2020-10-03 04:38 | NUR ---
NURSE NOTES: Cleaned and turned pt, changed linens and gown. Performed oral care. Tolerated well. Will continue to monitor.
--- NOTE | 2020-10-03 06:42 | NUR ---
NURSE NOTES: Spoke with Dr. Cazares at bedside, agreed to D/C Q6H accuchecks due to blood sugar stability. Noted and will carry out and endorse to morning shift.
--- NOTE | 2020-10-03 06:53 | Hematology/Onc Progress Note ---
Assessment/Plan Assessment/Plan LABORATORY DATA: 04/2020 white count 4.7, platelets 140 otherwise CBC is normal. BMP shows chloride 110, creatinine 0.4. Albumin 2.9, otherwise normal. INR 1.0, PTT 27. Urinalysis shows 2+ leukocyte esterase. 09/16 wbc 10, hgb 7.5, plt 126 Imaging 07/01/20 cxr Bilateral patchy airspace opacities. Differential includes multifocal pneumonia and pulmonary edema. 09/16/20 cxr b/l infiltrates noted Assessment and Recommendations # Anemia of iron deficiency, has been persistent for months, now improved, as ferritin better --> Anemia workup has been ordered--> improved --> No evidence of hemolysis is noted, peripheral smear has been reviewed. --> Hgb goal >7. Transfuse prn. --> Iron iv not needed any further --> Medications have been reviewed --> gb 9-->8.4->>>>7.5-->9.4-->9->10-->9.4->10.1-->10.5-->10.2-->9.7 # Right breast calcifications --> does not have a breast mass on exam --> f/u as outpatient with mammo as needed --> do not do a us breast here # Thrombocytopenia - potential causes multifactorial, evaluate liver and viral etiologies to begin, also could be related to underlying medications, no wimproved --> Hep panel and HIV prior negative -> plt 183->203->199-->125->130 --> abx # Leukocytosis with Pna --> antibiotics per id --> wbc 16->10.8-->16-->18-->15 --> smear is noted # Sepsis --> antibiotics per Infectious Disease. --> ABX vanc/zosyn->meropenem # Dehydration. --> PT and Dietary evaluation. # Hypertension --> Blood pressure control. # Dvt ppx scds The timing of this note does not necessarily reflect the time of the patient was seen Greatly appreciate consultation! Subjective HEENT: Denies: no symptoms, eye pain, blurred vision, tearing, double vision, ear pain, ear discharge, nose pain, nose congestion, throat pain, throat swelling, mouth pain, mouth swelling, other Cardiovascular: Denies: no symptoms, chest pain, edema, irregular heart rate, lightheadedness, palpitations, syncope, other Respiratory: Denies: no symptoms, cough, shortness of breath, SOB with e xcertion, SOB at rest, sputum, wheezing, other Gastrointestinal/Abdominal: Denies: no symptoms, abdomen distended, abdominal pain, black stools, tarry stools, blood in stool, constipated, diarrhea, difficulty swallowing, nausea, poor appetite, poor fluid intake, rectal bleeding, vomiting, other Genitourinary: Denies: no symptoms, burning, discharge, frequency, flank pain, hematuria, incontinence, pain, urgency, other Endocrine: Denies: no symptoms, excessive sweating, flushing, intolerance to cold, intolerance to heat, increased hunger, increased thirst, increased urine, unexplained weight gain, unexplained weight loss, other Hematologic/Lymphatic: Denies: no symptoms, anemia, easy bleeding, easy bruising, adenopathy, other Allergies: Coded Allergies: No Known Allergies (Unverified , 11/22/15) Subjective 09/18 labs are noted, no bleeding, seen by pulm, cbc is pending 09/19 gtube is running, meds reviewed, labs noted 09/20 labs reviewed, meds noted, cbc is pending, vanc was added recently 09/21 labs reviewed, meds noetd, hgb 10, bactrim, yovani, vanc 09/22 is satting well on the vent, abx, labs still pending for am 09/23 remains on vent, not in acute distress, no bleeding, no night sweats 09/25 labs pending, on trach, vent gtube, meds reviewed, feeds ongoing 09/26 obtunded, labs pending, trach/vent, no bleeding, meds noted 09/27 pending cbc, is s/p peg feeds, hany/trach 09/28 obtunded, no events, s/p peg, vent/trach, cleaned per Rn 09/29 nv, t/v, no night sweats, meds noted, no bleeding 09/30 nv, no bleeding, stones noted, with hydro on ct, labs reviewed 12: vent trach tolerating g tube feedings, no bleeding reported 10/02: tolerating vent settings, no distress. seen by uro. 10/03 labs reviewed, hgb 9.8, no bleeding, no hemolysis, dw rn Objective Objective Current Medications Medications (Trade) Dose Ordered Sig/Alex Route PRN Reason Start Time Stop Time Status Last Admin Dose Admin Acetaminophen (Tylenol) 500 mg Q4H PRN ORAL Mild Pain (Pain Scale 1-3) 09/15/20 23:15 10/15/20 23:14 09/23/20 16:49 Acetaminophen (Tylenol) 500 mg Q4H PRN ORAL Temp >100.5 09/15/20 23:15 10/15/20 23:14 09/24/20 16:19 Ascorbic Acid (Vitamin C) 250 mg TWICE A DAY ORAL 09/19/20 18:00 10/19/20 17:59 10/02/20 17:27 Hydralazine HCl (Apresoline) 10 mg Q2H PRN IV For High Blood Pressure 09/17/20 17:00 12/16/20 16:59 Levothyroxine Sodium (Synthroid) 50 mcg DAILY IV 09/26/20 13:00 10/26/20 12:59 10/02/20 08:45 Multivitamins (Multivitamins) 1 tab DAILY ORAL 09/20/20 09:00 10/20/20 08:59 10/02/20 08:46 Pantoprazole (Protonix) 40 mg EVERY 12 HOURS IVP 09/17/20 14:15 10/17/20 14:14 10/02/20 20:11 Last 24 Hour Vital Signs Date Time Temp Pulse Resp B/P (MAP) Pulse Ox O2 Delivery O2 Flow Rate FiO2 10/03/20 04:00 30 10/03/20 04:00 98.1 76 22 110/54 (72) 100 10/03/20 04:00 Mechanical Ventilator 10/03/20 04:00 63 10/03/20 01:28 71 22 30 10/03/20 00:00 30 10/03/20 00:00 98.2 71 16 128/66 (86) 100 10/03/20 00:00 Mechanical Ventilator 10/03/20 00:00 63 10/02/20 20:00 75 10/02/20 20:00 30 10/02/20 20:00 Mechanical Ventilator 10/02/20 20:00 98.2 72 17 109/56 (73) 100 1/3/21 19:29 74 21 30 10/02/20 16:00 58 10/02/20 16:00 Mechanical Ventilator 10/02/20 16:00 98.1 74 16 116/54 (74) 100 10/02/20 16:00 30 10/02/20 13:34 73 19 30 10/02/20 12:30 Mechanical Ventilator 10/02/20 12:00 71 10/02/20 12:00 97.7 68 17 133/72 (92) 100 10/02/20 12:00 30 10/02/20 08:15 Mechanical Ventilator 10/02/20 08:00 98.4 72 16 140/63 (88) 100 10/02/20 08:00 30 10/02/20 07:47 66 10/02/20 07:40 72 18 30 10/02/20 04:00 30 10/02/20 04:00 68 10/02/20 04:00 Mechanical Ventilator 10/02/20 04:00 98.1 65 16 129/76 (93) 100 10/02/20 00:22 77 18 30 10/02/20 00:00 67 10/02/20 00:00 98.2 78 26 155/67 (96) 98 10/02/20 00:00 Mechanical Ventilator 10/02/20 00:00 30 10/01/20 20:00 30 10/01/20 20:00 98.0 70 18 131/67 (88) 97 10/01/20 20:00 Mechanical Ventilator 10/01/20 20:00 68 10/01/20 19:26 74 19 30 10/01/20 16:00 30 10/01/20 16:00 Mechanical Ventilator 10/01/20 16:00 98.1 67 15 129/50 (76) 100 10/01/20 15:35 67 10/01/20 15:30 69 18 30 10/01/20 12:00 30 10/01/20 12:00 99.0 68 14 125/57 (79) 100 10/01/20 12:00 Mechanical Ventilator 10/01/20 11:42 76 10/01/20 08:00 72 10/01/20 08:00 98.2 71 16 112/59 (76) 100 10/01/20 08:00 30 10/01/20 08:00 Mechanical Ventilator 10/01/20 07:10 75 18 30 Intake and Output 10/02/20 10/03/20 19:00 07:00 Intake Total 800 ml 650 ml Output Total 200 ml 155 ml Balance 600 ml 495 ml Free Water 200 ml 100 ml Tube Feeding 600 ml 550 ml Output Urine Total 200 ml 150 ml Stool Total 5 ml Labs Test 09/30/20 12:12 09/30/20 18:37 09/30/20 23:32 10/01/20 06:29 POC Whole Blood Glucose 101 MG/DL (74-106) 93 MG/DL (74-106) 101 MG/DL (74-106) 116 MG/DL (74-106) Test 10/01/20 12:24 10/01/20 17:50 10/01/20 23:34 10/02/20 03:11 POC Whole Blood Glucose 96 MG/DL (74-106) 102 MG/DL (74-106) 90 MG/DL (74-106) White Blood Count 14.9 K/UL (4.8-10.8) Red Blood Count 3.07 M/UL (4.20-5.40) Hemoglobin 9.7 G/DL (12.0-16.0) Hematocrit 29.5 % (37.0-47.0) Mean Corpuscular Volume 96 FL (80-99) Mean Corpuscular Hemoglobin 31.5 PG (27.0-31.0) Mean Corpuscular Hemoglobin Concent 32.8 G/DL (32.0-36.0) Red Cell Distribution Width 17.3 % (11.6-14.8) Platelet Count 274 K/UL (150-450) Mean Platelet Volume 7.5 FL (6.5-10.1) Neutrophils (%) (Auto) % (45.0-75.0) Lymphocytes (%) (Auto) % (20.0-45.0) Monocytes (%) (Auto) % (1.0-10.0) Eosinophils (%) (Auto) % (0.0-3.0) Basophils (%) (Auto) % (0.0-2.0) Differential Total Cells Counted 100 Neutrophils % (Manual) 29 % (45-75) Lymphocytes % (Manual) 9 % (20-45) Monocytes % (Manual) 8 % (1-10) Eosinophils % (Manual) 54 % (0-3) Basophils % (Manual) 0 % (0-2) Band Neutrophils 0 % (0-8) Platelet Estimate Adequate Platelet Morphology Normal Hypochromasia 1+ Anisocytosis 1+ Sodium Level 138 MMOL/L (136-145) Potassium Level 4.9 MMOL/L (3.5-5.1) Chloride Level 107 MMOL/L (98-107) Carbon Dioxide Level 29 MMOL/L (21-32) Anion Gap 2 mmol/L (5-15) Blood Urea Nitrogen 17 mg/dL (7-18) Creatinine 0.5 MG/DL (0.55-1.30) Estimat Glomerular Filtration Rate > 60 mL/min (>60) Glucose Level 97 MG/DL (74-106) Calcium Level 9.8 MG/DL (8.5-10.1) Phosphorus Level 2.6 MG/DL (2.5-4.9) Magnesium Level 1.7 MG/DL (1.8-2.4) Total Bilirubin 0.4 MG/DL (0.2-1.0) Aspartate Amino Transf (AST/SGOT) 20 U/L (15-37) Alanine Aminotransferase (ALT/SGPT) 15 U/L (12-78) Alkaline Phosphatase 348 U/L (46-116) Total Protein 7.3 G/DL (6.4-8.2) Albumin 2.4 G/DL (3.4-5.0) Globulin 4.9 g/dL Albumin/Globulin Ratio 0.5 (1.0-2.7) Test 10/02/20 06:42 10/02/20 12:41 10/02/20 17:35 10/02/20 20:00 POC Whole Blood Glucose 105 MG/DL (74-106) 95 MG/DL (74-106) 94 MG/DL (74-106) Urine Color Pale yellow Urine Appearance Slightly cloudy Urine pH 7 (4.5-8.0) Urine Specific [place] 1.030 (1.005-1.035) Urine Protein 2+ (NEGATIVE) Urine Glucose (UA) Negative (NEGATIVE) Urine Ketones Negative (NEGATIVE) Urine Blood 2+ (NEGATIVE) Urine Nitrite Negative (NEGATIVE) Urine Bilirubin Negative (NEGATIVE) Urine Urobilinogen Normal MG/DL (0.0-1.0) Urine Leukocyte Esterase 1+ (NEGATIVE) Urine RBC 15-20 /HPF (0 - 2) Urine WBC 5-10 /HPF (0 - 2) Urine Squamous Epithelial Cells Few /LPF (NONE/OCC) Urine Amorphous Sediment Moderate /LPF (NONE) Urine Bacteria Moderate /HPF (NONE) Test 10/02/20 23:10 10/03/20 03:31 10/03/20 05:39 POC Whole Blood Glucose 101 MG/DL (74-106) 92 MG/DL (74-106) Micro Microbiology Date/Time Source Procedure Growth Status 10/02/20 20:00 Urine,Clean Catch Urine Culture - Preliminary Gram Negative Lopez Resulted Height (Feet): 5 Height (Inches): 3.00 Weight (Pounds): 145 Objective PHYSICAL EXAMINATION: GENERAL: obtunded, oriented x1, CARDIOVASCULAR: No murmur. LUNGS: Poor air exchange.+vent/trach ABDOMEN: Bowel sounds distant.++peg EXTREMITIES: No cyanosis, clubbing, or edema NEUROLOGIC: Neck, weakness as well leaning forward.bedbound++ Alan Cazares MD Oct 03, 2020 06:53
[2020-10-03 06:58] LABS: HEMATOCRIT 29.7 % (37.0-47.0); HEMOGLOBIN 9.6 G/DL (12.0-16.0); MEAN CORPUSCULAR VOLUME 98 FL (80-99); PLATELET COUNT 252 K/UL (150-450); RED BLOOD COUNT 3.05 M/UL (4.20-5.40); RED CELL DISTRIBUTION WIDTH 15.6 % (11.6-14.8)
--- NOTE | 2020-10-03 07:30 | NUR ---
NURSE NOTES: Received pt from CRISTY Moreno, pt is awake and confused, pt has trach to ventilator AC 12 TV 400 FIO2 30% PEEP 5, Pt has intact iv access LH 22G SL. Pt has g tube in place is patent. pt has rectal tube in place is working well. no complain of pain noted at this moment. all needs attended, bed is locked and is in the lowest position, call light within easy reach. will continue to monitor.
--- NOTE | 2020-10-03 07:33 | NUR ---
NURSE HAND-OFF REPORT: Important Events on Shift:[No acute events] Patient Status: [Stable] Diet: [Glucerna 1.2 50cc] Pending Orders: [NA] Pending Results/Labs:[NA] Pending MD notification:[NA] Latest Vital Signs: Temperature 98.1 , Pulse 63 , B/P 110 /54 , Respiratory Rate 22 , O2 SAT 100 , Mechanical Ventilator, O2 Flow Rate 50.0 . Vital Sign Comment: [Stable] EKG Rhythm: Sinus Rhythm Rhythm change?: N MD Notified?: - MD Response: Latest [place] Fall Score: 50 Fall Risk: High Risk Safety Measures: Call light Within Reach, Bed Alarm Zone 2, Side Rails Side Rails x3, Bed position Low and Locked. Fall Precautions: Yellow Socks Yellow Gown Door Sign Report given to [CRISTY Diaz].
[2020-10-03 07:36] LABS: ANION GAP 3 mmol/L (5-15); BLOOD UREA NITROGEN 17 mg/dL (7-18); CALCIUM 9.6 MG/DL (8.5-10.1); CARBON DIOXIDE 28 MMOL/L (21-32); CHLORIDE 106 MMOL/L (98-107); CREATININE 0.5 MG/DL (0.55-1.30); POTASSIUM 5.4 MMOL/L (3.5-5.1); SODIUM 137 MMOL/L (136-145)
[2020-10-03 08:00] VITALS: BP 136/75
--- NOTE | 2020-10-03 08:38 | General Progress Note ---
Subjective Constitutional: Reports: weakness Allergies: Coded Allergies: No Known Allergies (Unverified , 11/22/15) All Systems: reviewed and negative except above Subjective trach vent altered Objective Last 24 Hour Vital Signs Date Time Temp Pulse Resp B/P (MAP) Pulse Ox O2 Delivery O2 Flow Rate FiO2 10/03/20 07:44 62 12 30 10/03/20 04:00 30 10/03/20 04:00 98.1 76 22 110/54 (72) 100 10/03/20 04:00 Mechanical Ventilator 10/03/20 04:00 63 10/03/20 01:28 71 22 30 10/03/20 00:00 30 10/03/20 00:00 98.2 71 16 128/66 (86) 100 10/03/20 00:00 Mechanical Ventilator 10/03/20 00:00 63 10/02/20 20:00 75 10/02/20 20:00 30 10/02/20 20:00 Mechanical Ventilator 10/02/20 20:00 98.2 72 17 109/56 (73) 100 10/02/20 19:29 74 21 30 10/02/20 16:00 58 10/02/20 16:00 Mechanical Ventilator 10/02/20 16:00 98.1 74 16 116/54 (74) 100 10/02/20 16:00 30 10/02/20 13:34 73 19 30 10/02/20 12:30 Mechanical Ventilator 10/02/20 12:00 71 10/02/20 12:00 97.7 68 17 133/72 (92) 100 10/02/20 12:00 30 Intake and Output 10/02/20 10/03/20 19:00 07:00 Intake Total 800 ml 650 ml Output Total 200 ml 155 ml Balance 600 ml 495 ml Free Water 200 ml 100 ml Tube Feeding 600 ml 550 ml Output Urine Total 200 ml 150 ml Stool Total 5 ml Laboratory Tests 10/02/20 12:41: POC Whole Blood Glucose 95 10/02/20 17:35: POC Whole Blood Glucose 94 10/02/20 20:00: Urine Color Pale yellow, Urine Appearance Slightly cloudy, Urine pH 7, Urine Specific [place] 1.030, Urine Protein 2+H, Urine Glucose (UA) Negative, Urine Ketones Negative, Urine Blood 2+H, Urine Nitrite Negative, Urine Bilirubin Negative, Urine Urobilinogen Normal, Urine Leukocyte Esterase 1+H, Urine RBC 15- 20H, Urine WBC 5-10H, Urine Squamous Epithelial Cells Few, Urine Amorphous Sediment ModerateH, Urine Bacteria ModerateH 10/02/20 23:10: POC Whole Blood Glucose 101 10/03/20 03:31: White Blood Count 14.0H, Red Blood Count 3.05L, Hemoglobin 9.6L, Hematocrit 29.7L, Mean Corpuscular Volume 98, Mean Corpuscular Hemoglobin 31.6H, Mean Corpuscular Hemoglobin Concent 32.3, Red Cell Distribution Width 15.6H, Platelet Count 252, Mean Platelet Volume 6.4L, Neutrophils (%) (Auto) , Lymphocytes (%) (Auto) , Monocytes (%) (Auto) , Eosinophils (%) (Auto) , Basophils (%) (Auto) , Neutrophils % (Manual) [Pending], Lymphocytes % (Manual) [Pending], Platelet Estimate [Pending], Platelet Morphology [Pending], Sodium Level 137, Potassium Level 5.4H, Chloride Level 106, Carbon Dioxide Level 28, Anion Gap 3L, Blood Urea Nitrogen 17, Creatinine 0.5L, Estimat Glomerular Filtration Rate > 60, Glucose Level 87, Calcium Level 9.6 10/03/20 05:39: POC Whole Blood Glucose 92 Height (Feet): 5 Height (Inches): 3.00 Weight (Pounds): 145 General Appearance: lethargic EENT: normal ENT inspection Neck: normal alignment Cardiovascular: normal peripheral pulses, normal rate, regular rhythm Respiratory/Chest: chest wall non-tender, lungs clear, normal breath sounds Abdomen: normal bowel sounds, non tender, soft Extremities: normal inspection Neurologic: motor weakness Skin: normal pigmentation Assessment/Plan Problem List: (1) Functional quadriplegia ICD Codes: R53.2 - Functional quadriplegia SNOMED: 842903639122004 (2) Person under investigation for COVID-19 ICD Codes: Z20.828 - Contact with and (suspected) exposure to other viral communicable diseases SNOMED: 503698111 (3) Chronic respiratory failure ICD Codes: J96.10 - Chronic respiratory failure, unspecified whether with hypoxia or hypercapnia SNOMED: 15886031 (4) Dehydration ICD Codes: E86.0 - Dehydration SNOMED: 08025789 (5) Hypernatremia ICD Codes: E87.0 - Hyperosmolality and hypernatremia SNOMED: 828238658 (6) Hypothyroidism ICD Codes: E03.9 - Hypothyroidism, unspecified SNOMED: 25845929 (7) Pyelonephritis ICD Codes: N12 - Tubulo-interstitial nephritis, not specified as acute or chronic SNOMED: 68831856 (8) Protein calorie malnutrition ICD Codes: E46 - Unspecified protein-calorie malnutrition SNOMED: 798992294 (9) Failure to thrive (child) ICD Codes: R62.51 - Failure to thrive (child) SNOMED: 842818392 (10) Sacral decubitus ulcer ICD Codes: L89.159 - Pressure ulcer of sacral region, unspecified stage SNOMED: 535526052 (11) Tracheostomy dependence ICD Codes: Z93.0 - Tracheostomy status SNOMED: 996595673 (12) Pneumonia ICD Codes: J18.9 - Pneumonia, unspecified organism SNOMED: 512882965 Qualifiers: Qualified Codes: J18.9 - Pneumonia, unspecified organism (13) Hypothyroidism ICD Codes: E03.9 - Hypothyroidism, unspecified SNOMED: 02221344 (14) Electrolyte imbalance ICD Codes: E87.8 - Other disorders of electrolyte and fluid balance, not elsewhere classified SNOMED: 294875922 (15) Sepsis ICD Codes: A41.9 - Sepsis, unspecified organism SNOMED: 04795512 (16) UTI (urinary tract infection) ICD Codes: N39.0 - Urinary tract infection, site not specified SNOMED: 93495964 Qualifiers: Qualified Codes: N39.0 - Urinary tract infection, site not specified (17) Anemia ICD Codes: D64.9 - Anemia, unspecified SNOMED: 755046132 Qualifiers: Qualified Codes: D64.9 - Anemia, unspecified (18) Dysphagia ICD Codes: R13.10 - Dysphagia, unspecified SNOMED: 69029612, 890206351 (19) Hypoalbuminemia ICD Codes: E88.09 - Other disorders of plasma-protein metabolism, not elsewhere classified SNOMED: 066621573 (20) Iron deficiency ICD Codes: E61.1 - Iron deficiency SNOMED: 84948056 (21) At high risk for aspiration ICD Codes: Z91.89 - Other specified personal risk factors, not elsewhere classified SNOMED: 874512317 (22) Parkinson disease ICD Codes: G20 - Parkinson's disease SNOMED: 13135283 (23) Dementia ICD Codes: F03.90 - Unspecified dementia without behavioral disturbance SNOMED: 11322177 (24) Elevated CEA ICD Codes: R97.0 - Elevated carcinoembryonic antigen [CEA] SNOMED: 87636177, 000475355 (25) Paroxysmal A-fib ICD Codes: I48.0 - Paroxysmal atrial fibrillation SNOMED: 652567830 (26) Pancytopenia ICD Codes: D61.818 - Other pancytopenia SNOMED: 068695176 Status: stable, progressing Assessment/Plan: vent abx cbc bmp am Tony Dupree DO Oct 03, 2020 08:38
--- NOTE | 2020-10-03 09:03 | NUR ---
RD ASSESSMENT & RECOMMENDATIONS SEE CARE ACTIVITY FOR COMPLETE ASSESSMENT DAILY ESTIMATED NEEDS: Needs based on Wound, critical care 57.5kg abw 25-30 kcals/kg 5950-1875 total kcals 1.25-2 g protein/kg 72-115 g total protein 25-30 mL/kg 8058-3572 total fluid mLs NUTRITION DIAGNOSIS: * Increased kcal/prot needs R/T wound healing as evidenced by pt w/ h/o stage 4 sacral wound, eval is pending. * Swallowing difficulty R/T dysphagia, respiratory status as evidenced by pt is Trach and PEG dep. CURRENT TF: Glucerna 1.2 goal of 50ml/hr x22 ENTERAL NUTRITION RECOMMENDATIONS: Glucerna 1.2 @ 60ml/hr x 22 hrs to provide 1320ml, 1584 kcal, 79g pro, 1063ml free H2O * Increase goal by 10ml/hr to goal of 60ml/hr x24 hrs to better meet est needs. * Add TYRESE in 4oz water BID via PEG for wound healing * HOB over 30 degrees/ water flush per MD ----- With elevated potassium (now 5.4), rec TF change to Nepro w/ goal of 40ml/hr x22 hrs to provide 880ml, 1584 kcal, 71g pro, 640ml free H2O. - Rec added Prosource 1 pack qdaily to better meet est pro needs. - TF to provide 933mg K/day, est 1289mg less potassium than current Tf of Glucerna 1.2. ADDITIONAL RECOMMENDATIONS: * Calibrated bedscale wt for accurate CBW * Wound healing: TYRESE BID via GT continue Vit C + ZnSO4 * Monitor lytes, replete as needed (Low Mg) * Monitor BGs w/ TF-> bed side BG checks + NISS * Add probiotics: +diarrhea
[2020-10-03] MEDS: Ascorbic Acid 500mg tab ORAL SCH ×2 (09:48→17:06)
[2020-10-03] MEDS: Pantoprazole Inj IVP SCH ×2 (09:54→20:58)
--- NOTE | 2020-10-03 10:15 | NUR ---
NURSE NOTES: Dr Chau visited pt and is aware about K 5.4 and other lab results and V/S, no new order received.will continue to monitor.
--- NOTE | 2020-10-03 11:16 | NUR ---
*-*DISCHARGE PLANNING*-* PATIENT HAS BEEN REFERRED TO: [facility] P: [phone] S/W FAIZA, WILL CALL BACK AFTER REVIEW.
--- NOTE | 2020-10-03 11:28 | Pulmonology Progress Note ---
Subjective ROS Limited/Unobtainable: Yes Interval Events: None new Constitutional: Denies: fever HEENT: Repors: no symptoms Respiratory: Reports: no symptoms Cardiovascular: Reports: no symptoms Gastrointestinal/Abdominal: Denies: diarrhea Genitourinary: Reports: no symptoms Allergies: Coded Allergies: No Known Allergies (Unverified , 11/22/15) All Systems: reviewed and negative except above Objective Last 24 Hour Vital Signs Date Time Temp Pulse Resp B/P (MAP) Pulse Ox O2 Delivery O2 Flow Rate FiO2 10/03/20 10:44 69 16 30 10/03/20 08:00 30 10/03/20 08:00 98.2 73 19 136/75 (95) 100 10/03/20 07:56 63 10/03/20 07:44 62 12 30 10/03/20 04:00 30 10/03/20 04:00 98.1 76 22 110/54 (72) 100 10/03/20 04:00 Mechanical Ventilator 10/03/20 04:00 63 10/03/20 01:28 71 22 30 10/03/20 00:00 30 10/03/20 00:00 98.2 71 16 128/66 (86) 100 10/03/20 00:00 Mechanical Ventilator 10/03/20 00:00 63 10/02/20 20:00 75 10/02/20 20:00 30 10/02/20 20:00 Mechanical Ventilator 10/02/20 20:00 98.2 72 17 109/56 (73) 100 10/02/20 19:29 74 21 30 10/02/20 16:00 58 10/02/20 16:00 Mechanical Ventilator 10/02/20 16:00 98.1 74 16 116/54 (74) 100 10/02/20 16:00 30 10/02/20 13:34 73 19 30 10/02/20 12:30 Mechanical Ventilator 10/02/20 12:00 71 10/02/20 12:00 97.7 68 17 133/72 (92) 100 10/02/20 12:00 30 Intake and Output 10/02/20 10/03/20 19:00 07:00 Intake Total 800 ml 650 ml Output Total 200 ml 155 ml Balance 600 ml 495 ml Free Water 200 ml 100 ml Tube Feeding 600 ml 550 ml Output Urine Total 200 ml 150 ml Stool Total 5 ml General Appearance: no acute distress HEENT: normocephalic, atraumatic, status post trach Respiratory: chest wall non-tender, lungs clear, other - coarse rhonchi Cardiovascular: normal rate, regular rhythm Abdomen: normal bowel sounds, distended Microbiology Date/Time Source Procedure Growth Status 10/02/20 20:00 Urine,Clean Catch Urine Culture - Preliminary Gram Negative Lopez Resulted Laboratory Tests 10/02/20 12:41: POC Whole Blood Glucose 95 10/02/20 17:35: POC Whole Blood Glucose 94 10/02/20 20:00: Urine Color Pale yellow, Urine Appearance Slightly cloudy, Urine pH 7, Urine Specific [place] 1.030, Urine Protein 2+H, Urine Glucose (UA) Negative, Urine Ketones Negative, Urine Blood 2+H, Urine Nitrite Negative, Urine Bilirubin Negative, Urine Urobilinogen Normal, Urine Leukocyte Esterase 1+H, Urine RBC 15- 20H, Urine WBC 5-10H, Urine Squamous Epithelial Cells Few, Urine Amorphous Sediment ModerateH, Urine Bacteria ModerateH 10/02/20 23:10: POC Whole Blood Glucose 101 10/03/20 03:31: White Blood Count 14.0H, Red Blood Count 3.05L, Hemoglobin 9.6L, Hematocrit 29.7L, Mean Corpuscular Volume 98, Mean Corpuscular Hemoglobin 31.6H, Mean Corpuscular Hemoglobin Concent 32.3, Red Cell Distribution Width 15.6H, Platelet Count 252, Mean Platelet Volume 6.4L, Neutrophils (%) (Auto) , Lymphocytes (%) (Auto) , Monocytes (%) (Auto) , Eosinophils (%) (Auto) , Basophils (%) (Auto) , Differential Total Cells Counted 100, Neutrophils % (Manual) 28L, Lymphocytes % (Manual) 20, Monocytes % (Manual) 4, Eosinophils % (Manual) 48H, Basophils % (Manual) 0, Band Neutrophils 0, Platelet Estimate Adequate, Platelet Morphology Normal, Anisocytosis 1+, Sodium Level 137, Potassium Level 5.4H, Chloride Level 106, Carbon Dioxide Level 28, Anion Gap 3L, Blood Urea Nitrogen 17, Creatinine 0.5L, Estimat Glomerular Filtration Rate > 60, Glucose Level 87, Calcium Level 9.6 10/03/20 05:39: POC Whole Blood Glucose 92 Current Medications Medications (Trade) Dose Ordered Sig/Alex Route PRN Reason Start Time Stop Time Status Last Admin Dose Admin Acetaminophen (Tylenol) 500 mg Q4H PRN ORAL Mild Pain (Pain Scale 1-3) 09/15/20 23:15 10/15/20 23:14 09/23/20 16:49 Acetaminophen (Tylenol) 500 mg Q4H PRN ORAL Temp >100.5 09/15/20 23:15 10/15/20 23:14 09/24/20 16:19 Ascorbic Acid (Vitamin C) 250 mg TWICE A DAY ORAL 09/19/20 18:00 10/19/20 17:59 10/03/20 09:48 Hydralazine HCl (Apresoline) 10 mg Q2H PRN IV For High Blood Pressure 09/17/20 17:00 12/16/20 16:59 Levothyroxine Sodium (Synthroid) 50 mcg DAILY IV 09/26/20 13:00 10/26/20 12:59 10/03/20 09:48 Multivitamins (Multivitamins) 1 tab DAILY ORAL 09/20/20 09:00 10/20/20 08:59 10/03/20 09:48 Pantoprazole (Protonix) 40 mg EVERY 12 HOURS IVP 09/17/20 14:15 10/17/20 14:14 10/03/20 09:54 Assessment/Plan Assessment/Plan 1. Anemia, likely iron deficiency. - On IV iron. - s/p transfusion per Dr. Cazares. 2. Interstitial infiltrates, has pneumonia. - Sputum -> Serratia - Antibiotics per ID. - Continue supplemental oxygen; continue ventilator, AC mode.FiO2 30% 3. Sepsis. - Antibiotics per ID. Gm neg rods in sputum CS; confirmed [place] 4. History of fever. - Currently afebrile. 5. Possible COVID-19 infection. - Swab COVID-19 test negative. - Repeat PCR COVID-19 also negative 6. CHF. - 2D echocardiogram ordered per Cardio. 7. UTI. - On antibiotics. Has ESBL E. Coli 8. Elevated D-dimer. 9. DVT prophylaxis. - Venous duplex ultrasound negative. - on SCD 10. Chronic Respiratory Failure; continue vent; AC mode 11. Rising alk phos - CT abd showed stones in ureter and renal pelvis - urology recs noted The history of Jennifer Gao has been reviewed and management options for her have been examined and discussed by Mino Childs. I have personally examined and interviewed the patient. Mino Childs MD Oct 03, 2020 11:28
--- NOTE | 2020-10-03 11:33 | NUR ---
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
[2020-10-03 11:57] VITALS: BP 118/63
--- NOTE | 2020-10-03 13:12 | Surgery Progress Note ---
Surgery Progress Note Subjective Additional Comments discharge planning pending placement no n/v cont nutrition Objective Last 24 Hour Vital Signs Date Time Temp Pulse Resp B/P (MAP) Pulse Ox O2 Delivery O2 Flow Rate FiO2 10/03/20 12:00 30 10/03/20 12:00 Mechanical Ventilator 10/03/20 11:57 97.9 70 22 118/63 (81) 100 10/03/20 11:36 78 10/03/20 10:44 69 16 30 10/03/20 08:00 30 10/03/20 08:00 Mechanical Ventilator 10/03/20 08:00 98.2 73 19 136/75 (95) 100 10/03/20 07:56 63 10/03/20 07:44 62 12 30 10/03/20 04:00 30 10/03/20 04:00 98.1 76 22 110/54 (72) 100 10/03/20 04:00 Mechanical Ventilator 10/03/20 04:00 63 10/03/20 01:28 71 22 30 10/03/20 00:00 30 10/03/20 00:00 98.2 71 16 128/66 (86) 100 10/03/20 00:00 Mechanical Ventilator 10/03/20 00:00 63 10/02/20 20:00 75 10/02/20 20:00 30 10/02/20 20:00 Mechanical Ventilator 10/02/20 20:00 98.2 72 17 109/56 (73) 100 10/02/20 19:29 74 21 30 10/02/20 16:00 58 10/02/20 16:00 Mechanical Ventilator 10/02/20 16:00 98.1 74 16 116/54 (74) 100 10/02/20 16:00 30 10/02/20 13:34 73 19 30 I&O Intake and Output 10/02/20 10/03/20 19:00 07:00 Intake Total 800 ml 650 ml Output Total 200 ml 155 ml Balance 600 ml 495 ml Free Water 200 ml 100 ml Tube Feeding 600 ml 550 ml Output Urine Total 200 ml 150 ml Stool Total 5 ml Dressing: saturated Cardiovascular: RSR Respiratory: decreased breath sounds Abdomen: soft, non-tender, present bowel sounds, non-distended Extremities: no edema, no tenderness, no cyanosis Laboratory Tests Test 10/02/20 17:35 10/02/20 20:00 10/02/20 23:10 10/03/20 03:31 POC Whole Blood Glucose 94 MG/DL (74-106) 101 MG/DL (74-106) Urine Color Pale yellow Urine Appearance Slightly cloudy Urine pH 7 (4.5-8.0) Urine Specific [place] 1.030 (1.005-1.035) Urine Protein 2+ (NEGATIVE) H Urine Glucose (UA) Negative (NEGATIVE) Urine Ketones Negative (NEGATIVE) Urine Blood 2+ (NEGATIVE) H Urine Nitrite Negative (NEGATIVE) Urine Bilirubin Negative (NEGATIVE) Urine Urobilinogen Normal MG/DL (0.0-1.0) Urine Leukocyte Esterase 1+ (NEGATIVE) H Urine RBC 15-20 /HPF (0 - 2) H Urine WBC 5-10 /HPF (0 - 2) H Urine Squamous Epithelial Cells Few /LPF (NONE/OCC) Urine Amorphous Sediment Moderate /LPF (NONE) H Urine Bacteria Moderate /HPF (NONE) H White Blood Count 14.0 K/UL (4.8-10.8) H Red Blood Count 3.05 M/UL (4.20-5.40) L Hemoglobin 9.6 G/DL (12.0-16.0) L Hematocrit 29.7 % (37.0-47.0) L Mean Corpuscular Volume 98 FL (80-99) Mean Corpuscular Hemoglobin 31.6 PG (27.0-31.0) H Mean Corpuscular Hemoglobin Concent 32.3 G/DL (32.0-36.0) Red Cell Distribution Width 15.6 % (11.6-14.8) H Platelet Count 252 K/UL (150-450) Mean Platelet Volume 6.4 FL (6.5-10.1) L Neutrophils (%) (Auto) % (45.0-75.0) Lymphocytes (%) (Auto) % (20.0-45.0) Monocytes (%) (Auto) % (1.0-10.0) Eosinophils (%) (Auto) % (0.0-3.0) Basophils (%) (Auto) % (0.0-2.0) Differential Total Cells Counted 100 Neutrophils % (Manual) 28 % (45-75) L Lymphocytes % (Manual) 20 % (20-45) Monocytes % (Manual) 4 % (1-10) Eosinophils % (Manual) 48 % (0-3) H Basophils % (Manual) 0 % (0-2) Band Neutrophils 0 % (0-8) Platelet Estimate Adequate Platelet Morphology Normal Anisocytosis 1+ Sodium Level 137 MMOL/L (136-145) Potassium Level 5.4 MMOL/L (3.5-5.1) H Chloride Level 106 MMOL/L (98-107) Carbon Dioxide Level 28 MMOL/L (21-32) Anion Gap 3 mmol/L (5-15) L Blood Urea Nitrogen 17 mg/dL (7-18) Creatinine 0.5 MG/DL (0.55-1.30) L Estimat Glomerular Filtration Rate > 60 mL/min (>60) Glucose Level 87 MG/DL (74-106) Calcium Level 9.6 MG/DL (8.5-10.1) Test 10/03/20 05:39 POC Whole Blood Glucose 92 MG/DL (74-106) Plan Problems: (1) Pneumonia (2) Functional quadriplegia (3) Person under investigation for COVID-19 (4) Chronic respiratory failure (5) Dehydration (6) Hypernatremia (7) Hypothyroidism (8) Pyelonephritis (9) Protein calorie malnutrition Assessment & Plan: DAILY ESTIMATED NEEDS: Needs based on Wound, critical care 57.5kg abw 25-30 kcals/kg 8477-3100 total kcals 1.25-2 g protein/kg 72-115 g total protein 25-30 mL/kg 3492-2221 total fluid mLs NUTRITION DIAGNOSIS: * Increased kcal/prot needs R/T wound healing as evidenced by pt w/ h/o stage 4 sacral wound, eval is pending. * Swallowing difficulty R/T dysphagia, respiratory status as evidenced by pt is Trach and PEG dep. CURRENT TF: Glucerna 1.2 goal of 50ml/hr x22 ENTERAL NUTRITION RECOMMENDATIONS: Glucerna 1.2 @ 60ml/hr x 22 hrs to provide 1320ml, 1584 kcal, 79g pro, 1063ml free H2O * Increase goal by 10ml/hr to goal of 60ml/hr x24 hrs to better meet est needs. * Add TYRESE in 4oz water BID via PEG for wound healing * HOB over 30 degrees/ water flush per MD ----- With elevated potassium (now 5.4), rec TF change to Nepro w/ goal of 40ml/hr x22 hrs to provide 880ml, 1584 kcal, 71g pro, 640ml free H2O. - Rec added Prosource 1 pack qdaily to better meet est pro needs. - TF to provide 933mg K/day, est 1289mg less potassium than current Tf of Glucerna 1.2. ADDITIONAL RECOMMENDATIONS: * Calibrated bedscale wt for accurate CBW * Wound healing: TYRESE BID via GT continue Vit C + ZnSO4 * Monitor lytes, replete as needed (Low Mg) * Monitor BGs w/ TF-> bed side BG checks + NISS * Add probiotics: +diarrhea (10) Failure to thrive (child) (11) Sacral decubitus ulcer Assessment & Plan: Pt presented on admission with Tracheostomy, GT, and multiple Pressure injuries. No erythema or evidence of skin breakdown under tracheal collar. dry dark brown skin plaque noted at R lateral chest to R flank. Full thickness stage 4 Sacral Pressure Injury with undermined borders(L)2cm x (W)2cm x (D)2cm, undermining clockwise 11-3 by 2.3cm @3o'clock.Ability to accurately assess base of wound is not fully appreciated secondary to shape of wound. (+) Epibole along edges of wound. Silver Nitrate sticks application applied to Borders. Bone is palpable when probed.Small amt brown exudate noted. No odor noted. [place] Atrophic scar periwound. Resolving Pressure Injury R Ischium. [place] epithelial noted at base of wound. Intact serous Blister noted to monica/upper L thigh. No erythema or changes in skin temp at affected site. Reabsorbing DTPI L Hallux. Base of Pressure injury is dark brown,dry without erythema,induration or fluctuance. L Heel is boggy with non-blanchable erythema. R Heel is boggy but blanchable. Tx.Plan: Cleanse Sacral wound with Saline. Loosely pack with Therahoney impregnated Kerlix.Apply Moisture Barrier Paste periwound. Cover with Optifoam drsg every 3 days and prn. Apply Moisture Barrier Paste to R Ischium. Cover with Optifoam drsg. Change every 3 days and prn. Apply Phytoplex Skin Nourishing lotion to Lateral R chest /R Flank Daily. Apply Cavilon Skin Barrier to R and L Heel. Cover each heel with Optifoam drsg.Change every 7 days and prn. Reposition at least every 2hours or as tolerated. Off-load heels with pillow. 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 No mass. Gallbladder and bile ducts: Unremarkable. No calcified stones. No ductal dilation. Pancreas: Unremarkable. No mass. No ductal dilation. Spleen: Unremarkable. No splenomegaly. Adrenals: Unremarkable. No mass. Kidneys and ureters: There are at least 4 stones identified in the distal right ureter with mild right hydronephrosis and hydroureter. The largest, most distal stone, just proximal to the UVJ measures 12 x 6 mm. There are two 2-3 mm stones in the more proximal ureter as well as a fourth stone measuring 13 x 7 mm. There is a nonobstructing stone in the right renal pelvis measuring 13 x 14 mm as well as a stone in the right lower pole calyx measuring 11 x 7 mm. There are multiple nonobstructing left renal stones ranging from 3-10 mm in diameter. No left hydronephrosis identified. Stomach and bowel: Unremarkable. No obstruction. No mucosal thickening. PELVIS: Appendix: No findings to suggest acute appendicitis. Bladder: Unremarkable. No mass. Reproductive: Unremarkable as visualized. ABDOMEN and PELVIS: Intraperitoneal space: Unremarkable. No free air. No significant fluid collection. Bones/joints: No acute fracture. No dislocation. Soft tissues: Unremarkable. Vasculature: Unremarkable. No abdominal aortic aneurysm. Lymph nodes: Unremarkable. No enlarged lymph nodes. Tubes, lines and devices: There is a gastrostomy tube in good position. IMPRESSION: 1. There are at least 4 stones identified in the distal right ureter with mild right hydronephrosis and hydroureter. The largest, most distal stone, just proximal to the UVJ measures 12 x 6 mm. There are two 2-3 mm stones in the more proximal ureter as well as a fourth stone measuring 13 x 7 mm. 2. There is a nonobstructing stone in the right renal pelvis measuring 13 x 14 mm as well as a stone in the right lower pole calyx measuring 11 x 7 mm. (14) UTI (urinary tract infection) (15) Anemia (16) Dysphagia (17) Hypoalbuminemia (18) Iron deficiency (19) At high risk for aspiration (20) Parkinson disease (21) Dementia (22) Elevated CEA (23) Paroxysmal A-fib (24) Pancytopenia (25) Hypothyroidism (26) Electrolyte imbalance Holland Petty Oct 03, 2020 13:12
--- NOTE | 2020-10-03 13:32 | Nephrology Progress Note ---
Assessment/Plan Problem List: (1) Electrolyte imbalance (2) Hypothyroidism (3) Functional quadriplegia (4) Sacral decubitus ulcer (5) Hypoalbuminemia (6) Anemia Assessment Unfortunate 75-year old female with chronic trach to vent is being treated for sepsis Has hyponatremia Marked elevated TSH indicative of severe hypothyroidism leading to hyponatremia Anemia Plan October 03: Labs reviewed. High potassium most likely hemolysis as renal parameters are stable and the patient is on no potassium supplement. TSH level is lowering on IV Synthroid. Will increase Synthroid 100 mcg every 24 hours intravenously. Continue per consultants. Continue to monitor electrolytes. Discussed with RN. October 02: Labs reviewed. Low magnesium replaced. Stable from renal standpoint of view. October 01: No labs drawn today. Will check lab tomorrow. Continue per consultants. Stable from renal standpoint of view. September 30: Labs reviewed. Renal parameters stable. Continue per consultants. September 29: Labs reviewed. Abnormal electrolytes and chemistries addressed. Continue per consultants. September 28: No CHEM panel drawn today. Medication list reviewed. Continue present management. September 27: Labs reviewed. Renal parameters stable. On intravenous Synthroid for severe hypothyroidism. Continue to monitor electrolytes and renal parameters Previously: IV Synthroid given Continue per consultants Monitor renal parameters and electrolytes Subjective ROS Limited/Unobtainable: Yes Objective Objective Last 24 Hour Vital Signs Date Time Temp Pulse Resp B/P (MAP) Pulse Ox O2 Delivery O2 Flow Rate FiO2 10/03/20 12:00 30 10/03/20 12:00 Mechanical Ventilator 10/03/20 11:57 97.9 70 22 118/63 (81) 100 10/03/20 11:36 78 10/03/20 10:44 69 16 30 10/03/20 08:00 30 10/03/20 08:00 Mechanical Ventilator 10/03/20 08:00 98.2 73 19 136/75 (95) 100 10/03/20 07:56 63 10/03/20 07:44 62 12 30 10/03/20 04:00 30 10/03/20 04:00 98.1 76 22 110/54 (72) 100 10/03/20 04:00 Mechanical Ventilator 10/03/20 04:00 63 10/03/20 01:28 71 22 30 10/03/20 00:00 30 10/03/20 00:00 98.2 71 16 128/66 (86) 100 10/03/20 00:00 Mechanical Ventilator 10/03/20 00:00 63 10/02/20 20:00 75 10/02/20 20:00 30 10/02/20 20:00 Mechanical Ventilator 10/02/20 20:00 98.2 72 17 109/56 (73) 100 10/02/20 19:29 74 21 30 10/02/20 16:00 58 10/02/20 16:00 Mechanical Ventilator 10/02/20 16:00 98.1 74 16 116/54 (74) 100 10/02/20 16:00 30 10/02/20 13:34 73 19 30 Intake and Output 10/02/20 10/03/20 19:00 07:00 Intake Total 800 ml 650 ml Output Total 200 ml 155 ml Balance 600 ml 495 ml Free Water 200 ml 100 ml Tube Feeding 600 ml 550 ml Output Urine Total 200 ml 150 ml Stool Total 5 ml Laboratory Tests 10/02/20 17:35: POC Whole Blood Glucose 94 10/02/20 20:00: Urine Color Pale yellow, Urine Appearance Slightly cloudy, Urine pH 7, Urine Specific [place] 1.030, Urine Protein 2+H, Urine Glucose (UA) Negative, Urine Ketones Negative, Urine Blood 2+H, Urine Nitrite Negative, Urine Bilirubin Negative, Urine Urobilinogen Normal, Urine Leukocyte Esterase 1+H, Urine RBC 15- 20H, Urine WBC 5-10H, Urine Squamous Epithelial Cells Few, Urine Amorphous Sediment ModerateH, Urine Bacteria ModerateH 10/02/20 23:10: POC Whole Blood Glucose 101 10/03/20 03:31: White Blood Count 14.0H, Red Blood Count 3.05L, Hemoglobin 9.6L, Hematocrit 29.7L, Mean Corpuscular Volume 98, Mean Corpuscular Hemoglobin 31.6H, Mean Corpuscular Hemoglobin Concent 32.3, Red Cell Distribution Width 15.6H, Platelet Count 252, Mean Platelet Volume 6.4L, Neutrophils (%) (Auto) , Lymphocytes (%) (Auto) , Monocytes (%) (Auto) , Eosinophils (%) (Auto) , Basophils (%) (Auto) , Differential Total Cells Counted 100, Neutrophils % (Manual) 28L, Lymphocytes % (Manual) 20, Monocytes % (Manual) 4, Eosinophils % (Manual) 48H, Basophils % (Manual) 0, Band Neutrophils 0, Platelet Estimate Adequate, Platelet Morphology Normal, Anisocytosis 1+, Sodium Level 137, Potassium Level 5.4H, Chloride Level 106, Carbon Dioxide Level 28, Anion Gap 3L, Blood Urea Nitrogen 17, Creatinine 0.5L, Estimat Glomerular Filtration Rate > 60, Glucose Level 87, Calcium Level 9.6 10/03/20 05:39: POC Whole Blood Glucose 92 Height (Feet): 5 Height (Inches): 3.00 Weight (Pounds): 145 General Appearance: no apparent distress EENT: other - Trach to vent Cardiovascular: normal rate Respiratory/Chest: decreased breath sounds Abdomen: soft Dante Chau MD Oct 03, 2020 13:32
--- NOTE | 2020-10-03 15:26 | Cardiac Electrophysiology PN ---
Assessment/Plan Assessment/Plan 1. Hypertension, currently blood pressure stable. On p.r.n. Hydralazine and clonidine Mildly bradycardic in high 50s 2. VDRF status post tracheostomy on 30% FiO2, in sinus rhythm. COVID was negative. 3. Severe anemia, hemoglobin 7.5. S/P blood transfusion. Etiology is not clear at this time, but creatinine is within normal range. 4. Elevated BNP of more than 4000. Echo EF 65% 5. Dysphagia, status post PEG replacement 09/22/20. 6. VRE sepsis ( Amp sensitive), Gram positive bacteremia, Pseudomonas pneumonia, E coli UTI, on iv Abx per ID 7. Sacral Decubitus 8. Multiple ureteral stone. in the distal right ureter and a nonobstructing stone in the right renal pelvis FU urology DW RN Subjective Subjective Off covid isolation. GT replaced 09/22/20 On the Vent with 30% Fio2 off restraints. Had CT abdomen that showed at least 4 stones identified in the distal right ureter with mild right hydronephrosis and hydroureter. The largest, most distal stone, just proximal to the UVJ measures 12 x 6 mm. There is a nonobstructing stone in the right renal pelvis measuring 13 x 14 mm as well as a stone in the right lower pole calyx measuring 11 x 7 mm. In SR in 50s with no events. K was 5.4 and PEG feeding was changed Objective Last 24 Hour Vital Signs Date Time Temp Pulse Resp B/P (MAP) Pulse Ox O2 Delivery O2 Flow Rate FiO2 10/03/20 12:00 30 10/03/20 12:00 Mechanical Ventilator 10/03/20 11:57 97.9 70 22 118/63 (81) 100 10/03/20 11:36 78 10/03/20 10:44 69 16 30 10/03/20 08:00 30 10/03/20 08:00 Mechanical Ventilator 10/03/20 08:00 98.2 73 19 136/75 (95) 100 10/03/20 07:56 63 10/03/20 07:44 62 12 30 10/03/20 04:00 30 10/03/20 04:00 98.1 76 22 110/54 (72) 100 10/03/20 04:00 Mechanical Ventilator 10/03/20 04:00 63 10/03/20 01:28 71 22 30 10/03/20 00:00 30 10/03/20 00:00 98.2 71 16 128/66 (86) 100 10/03/20 00:00 Mechanical Ventilator 10/03/20 00:00 63 10/02/20 20:00 75 10/02/20 20:00 30 10/02/20 20:00 Mechanical Ventilator 10/02/20 20:00 98.2 72 17 109/56 (73) 100 10/02/20 19:29 74 21 30 10/02/20 16:00 58 10/02/20 16:00 Mechanical Ventilator 10/02/20 16:00 98.1 74 16 116/54 (74) 100 10/02/20 16:00 30 Intake and Output 10/02/20 10/03/20 19:00 07:00 Intake Total 800 ml 650 ml Output Total 200 ml 155 ml Balance 600 ml 495 ml Free Water 200 ml 100 ml Tube Feeding 600 ml 550 ml Output Urine Total 200 ml 150 ml Stool Total 5 ml Laboratory Tests Test 10/02/20 17:35 10/02/20 20:00 10/02/20 23:10 10/03/20 03:31 POC Whole Blood Glucose 94 MG/DL (74-106) 101 MG/DL (74-106) Urine Color Pale yellow Urine Appearance Slightly cloudy Urine pH 7 (4.5-8.0) Urine Specific [place] 1.030 (1.005-1.035) Urine Protein 2+ (NEGATIVE) H Urine Glucose (UA) Negative (NEGATIVE) Urine Ketones Negative (NEGATIVE) Urine Blood 2+ (NEGATIVE) H Urine Nitrite Negative (NEGATIVE) Urine Bilirubin Negative (NEGATIVE) Urine Urobilinogen Normal MG/DL (0.0-1.0) Urine Leukocyte Esterase 1+ (NEGATIVE) H Urine RBC 15-20 /HPF (0 - 2) H Urine WBC 5-10 /HPF (0 - 2) H Urine Squamous Epithelial Cells Few /LPF (NONE/OCC) Urine Amorphous Sediment Moderate /LPF (NONE) H Urine Bacteria Moderate /HPF (NONE) H White Blood Count 14.0 K/UL (4.8-10.8) H Red Blood Count 3.05 M/UL (4.20-5.40) L Hemoglobin 9.6 G/DL (12.0-16.0) L Hematocrit 29.7 % (37.0-47.0) L Mean Corpuscular Volume 98 FL (80-99) Mean Corpuscular Hemoglobin 31.6 PG (27.0-31.0) H Mean Corpuscular Hemoglobin Concent 32.3 G/DL (32.0-36.0) Red Cell Distribution Width 15.6 % (11.6-14.8) H Platelet Count 252 K/UL (150-450) Mean Platelet Volume 6.4 FL (6.5-10.1) L Neutrophils (%) (Auto) % (45.0-75.0) Lymphocytes (%) (Auto) % (20.0-45.0) Monocytes (%) (Auto) % (1.0-10.0) Eosinophils (%) (Auto) % (0.0-3.0) Basophils (%) (Auto) % (0.0-2.0) Differential Total Cells Counted 100 Neutrophils % (Manual) 28 % (45-75) L Lymphocytes % (Manual) 20 % (20-45) Monocytes % (Manual) 4 % (1-10) Eosinophils % (Manual) 48 % (0-3) H Basophils % (Manual) 0 % (0-2) Band Neutrophils 0 % (0-8) Platelet Estimate Adequate Platelet Morphology Normal Anisocytosis 1+ Sodium Level 137 MMOL/L (136-145) Potassium Level 5.4 MMOL/L (3.5-5.1) H Chloride Level 106 MMOL/L (98-107) Carbon Dioxide Level 28 MMOL/L (21-32) Anion Gap 3 mmol/L (5-15) L Blood Urea Nitrogen 17 mg/dL (7-18) Creatinine 0.5 MG/DL (0.55-1.30) L Estimat Glomerular Filtration Rate > 60 mL/min (>60) Glucose Level 87 MG/DL (74-106) Calcium Level 9.6 MG/DL (8.5-10.1) Test 10/03/20 05:39 POC Whole Blood Glucose 92 MG/DL (74-106) Microbiology Date/Time Source Procedure Growth Status 10/02/20 20:00 Urine,Clean Catch Urine Culture - Preliminary Gram Negative Lopez Resulted Objective HEAD AND NECK: No JVD.S/P Trach LUNGS: Coarse rhonchi. CARDIOVASCULAR: Regular S1 and S2 with no gallop. ABDOMEN: Status post PEG. EXTREMITIES: 1+ pitting edema. Flex Bess MD Oct 03, 2020 15:26
--- NOTE | 2020-10-03 15:41 | NUR ---
*-*DISCHARGE PLANNING*-* PATIENT HAS BEEN REFERRED TO: [facility] P: [phone] ROOM# 19.C ~~~~~~~~~~~~~~~~~~~~~~NEED DISCHARGE ORDER~~~~~~~~~~~~~~~~~~~~
[2020-10-03 15:57] VITALS: BP 123/52
--- NOTE | 2020-10-03 16:37 | Infectious Diseases Prog Note ---
Assessment/Plan Assessment/Plan IMPRESSION: Fever resolved Eosinophilia & rash VRE sepsis ( Amp sensitive) Positive blood culture with Staph Hemolyticus likely contamination Serratia, Pseudomonas & Stenotrophomonas pneumonia, E coli UTI, Ventilator-dependent respiratory failure, Quadriplegia, Stage IV sacral ulcer, COPD, Iron deficiency anemia, Hypertension, history of atrial fibrillation. Negative COVI19 tests ? scabies, received Ivermectin Ureteral stone Mild R hydronephrosis & Hydroureter RECOMMENDATION: Observe off antibiotic Will f/u cultures Subjective ROS Limited/Unobtainable: Yes Constitutional: Denies: fever Allergies: Coded Allergies: No Known Allergies (Unverified , 11/22/15) Objective Last 24 Hour Vital Signs Date Time Temp Pulse Resp B/P (MAP) Pulse Ox O2 Delivery O2 Flow Rate FiO2 10/03/20 16:00 30 10/03/20 16:00 Mechanical Ventilator 10/03/20 15:57 98.1 71 15 123/52 (75) 100 10/03/20 12:00 30 10/03/20 12:00 Mechanical Ventilator 10/03/20 11:57 97.9 70 22 118/63 (81) 100 10/03/20 11:36 78 10/03/20 10:44 69 16 30 10/03/20 08:00 30 10/03/20 08:00 Mechanical Ventilator 10/03/20 08:00 98.2 73 19 136/75 (95) 100 10/03/20 07:56 63 10/03/20 07:44 62 12 30 10/03/20 04:00 30 10/03/20 04:00 98.1 76 22 110/54 (72) 100 10/03/20 04:00 Mechanical Ventilator 10/03/20 04:00 63 10/03/20 01:28 71 22 30 10/03/20 00:00 30 10/03/20 00:00 98.2 71 16 128/66 (86) 100 10/03/20 00:00 Mechanical Ventilator 10/03/20 00:00 63 10/02/20 20:00 75 10/02/20 20:00 30 10/02/20 20:00 Mechanical Ventilator 10/02/20 20:00 98.2 72 17 109/56 (73) 100 10/02/20 19:29 74 21 30 Height (Feet): 5 Height (Inches): 3.00 Weight (Pounds): 145 HEENT: mucous membranes moist, status post trach Respiratory/Chest: lungs clear, other - on ventilator Cardiovascular: normal rate Abdomen: soft, non tender, other - GT & rectal tube Extremities: no edema Neurologic/Psychiatric: aphasia Microbiology Date/Time Source Procedure Growth Status 10/02/20 20:00 Urine,Clean Catch Urine Culture - Preliminary Gram Negative Lopez Resulted Laboratory Tests Test 10/02/20 17:35 10/02/20 20:00 10/02/20 23:10 10/03/20 03:31 POC Whole Blood Glucose 94 MG/DL (74-106) 101 MG/DL (74-106) Urine Color Pale yellow Urine Appearance Slightly cloudy Urine pH 7 (4.5-8.0) Urine Specific [place] 1.030 (1.005-1.035) Urine Protein 2+ (NEGATIVE) H Urine Glucose (UA) Negative (NEGATIVE) Urine Ketones Negative (NEGATIVE) Urine Blood 2+ (NEGATIVE) H Urine Nitrite Negative (NEGATIVE) Urine Bilirubin Negative (NEGATIVE) Urine Urobilinogen Normal MG/DL (0.0-1.0) Urine Leukocyte Esterase 1+ (NEGATIVE) H Urine RBC 15-20 /HPF (0 - 2) H Urine WBC 5-10 /HPF (0 - 2) H Urine Squamous Epithelial Cells Few /LPF (NONE/OCC) Urine Amorphous Sediment Moderate /LPF (NONE) H Urine Bacteria Moderate /HPF (NONE) H White Blood Count 14.0 K/UL (4.8-10.8) H Red Blood Count 3.05 M/UL (4.20-5.40) L Hemoglobin 9.6 G/DL (12.0-16.0) L Hematocrit 29.7 % (37.0-47.0) L Mean Corpuscular Volume 98 FL (80-99) Mean Corpuscular Hemoglobin 31.6 PG (27.0-31.0) H Mean Corpuscular Hemoglobin Concent 32.3 G/DL (32.0-36.0) Red Cell Distribution Width 15.6 % (11.6-14.8) H Platelet Count 252 K/UL (150-450) Mean Platelet Volume 6.4 FL (6.5-10.1) L Neutrophils (%) (Auto) % (45.0-75.0) Lymphocytes (%) (Auto) % (20.0-45.0) Monocytes (%) (Auto) % (1.0-10.0) Eosinophils (%) (Auto) % (0.0-3.0) Basophils (%) (Auto) % (0.0-2.0) Differential Total Cells Counted 100 Neutrophils % (Manual) 28 % (45-75) L Lymphocytes % (Manual) 20 % (20-45) Monocytes % (Manual) 4 % (1-10) Eosinophils % (Manual) 48 % (0-3) H Basophils % (Manual) 0 % (0-2) Band Neutrophils 0 % (0-8) Platelet Estimate Adequate Platelet Morphology Normal Anisocytosis 1+ Sodium Level 137 MMOL/L (136-145) Potassium Level 5.4 MMOL/L (3.5-5.1) H Chloride Level 106 MMOL/L (98-107) Carbon Dioxide Level 28 MMOL/L (21-32) Anion Gap 3 mmol/L (5-15) L Blood Urea Nitrogen 17 mg/dL (7-18) Creatinine 0.5 MG/DL (0.55-1.30) L Estimat Glomerular Filtration Rate > 60 mL/min (>60) Glucose Level 87 MG/DL (74-106) Calcium Level 9.6 MG/DL (8.5-10.1) Test 10/03/20 05:39 POC Whole Blood Glucose 92 MG/DL (74-106) Current Medications Medications (Trade) Dose Ordered Sig/Alex Route PRN Reason Start Time Stop Time Status Last Admin Dose Admin Acetaminophen (Tylenol) 500 mg Q4H PRN ORAL Mild Pain (Pain Scale 1-3) 09/15/20 23:15 10/15/20 23:14 09/23/20 16:49 Acetaminophen (Tylenol) 500 mg Q4H PRN ORAL Temp >100.5 09/15/20 23:15 10/15/20 23:14 09/24/20 16:19 Ascorbic Acid (Vitamin C) 250 mg TWICE A DAY ORAL 09/19/20 18:00 10/19/20 17:59 10/03/20 09:48 Hydralazine HCl (Apresoline) 10 mg Q2H PRN IV For High Blood Pressure 09/17/20 17:00 12/16/20 16:59 Levothyroxine Sodium (Synthroid) 100 mcg DAILY IV 10/04/20 09:00 10/26/20 12:59 Multivitamins (Multivitamins) 1 tab DAILY ORAL 09/20/20 09:00 10/20/20 08:59 10/03/20 09:48 Pantoprazole (Protonix) 40 mg EVERY 12 HOURS IVP 09/17/20 14:15 10/17/20 14:14 10/03/20 09:54 Mahesh Nicole MD Oct 03, 2020 16:37
--- NOTE | 2020-10-03 17:05 | NUR ---
*-*DISCHARGE PLANNING*-* PATIENT HAS BEEN REFERRED TO: [facility] P: [phone] ROOM# 19.B ~~~~~~~~~~~~~~~~~~~~~~NEED DISCHARGE ORDER~~~~~~~~~~~~~~~~~~~~
--- NOTE | 2020-10-03 19:24 | NUR ---
NURSE HAND-OFF REPORT: Important Events on Shift: Patient Status: Diet: Pending Orders: Pending Results/Labs: Pending MD notification: Latest Vital Signs: Temperature 98.1 , Pulse 71 , B/P 123 /52 , Respiratory Rate 15 , O2 SAT 100 , Mechanical Ventilator, O2 Flow Rate 50.0 . Vital Sign Comment: EKG Rhythm: Sinus Rhythm Rhythm change?: N MD Notified?: - MD Response: Latest [place] Fall Score: 50 Fall Risk: High Risk Safety Measures: Call light Within Reach, Bed Alarm Zone 2, Side Rails Side Rails x3, Bed position Low and Locked. Fall Precautions: Yellow Socks Yellow Gown Door Sign Report given to . pt is awake and stable, no stress noted, endorsed plan of care.
--- NOTE | 2020-10-03 19:25 | NUR ---
NURSE NOTES: Received report from CRISTY Diaz. Pt obtunded, contracted, unable to make needs known, RAMAN. 5-lead EKG shows SR at 68 BPM. Vitals WNL. Afebrile. GT running Nepro at 40 mL. 0 residual noted. Left hand 22 gauge patent and intact. Purewick observed. Rectal tube observed. Made aware of alterations in skin integrity. Bed kept in lowest and locked position. Bed alarm on. Side rails upx3. Will continue monitoring.
[2020-10-03 20:00] VITALS: BP 118/48
--- NOTE | 2020-10-03 20:00 | NUR ---
NURSE NOTES: Pt saturating 100% on trach to vent settings of AC 16 / Vt 500 / 30% fiO2. No distress noted. Will monitor. Addendum: 10/03/20 at 2358 by Susannah Grajeda RN Vent to trach settings Assist Control 12, Tidal Volume 400, 30% fiO2 saturating 100%
--- NOTE | 2020-10-03 23:56 | General Progress Note ---
Subjective Allergies: Coded Allergies: No Known Allergies (Unverified , 11/22/15) Subjective Above noted Tolerating TF Non verbal Objective Last 24 Hour Vital Signs Date Time Temp Pulse Resp B/P (MAP) Pulse Ox O2 Delivery O2 Flow Rate FiO2 10/03/20 22:37 70 16 30 10/03/20 20:00 30 10/03/20 20:00 98.6 68 15 118/48 (71) 100 10/03/20 20:00 Mechanical Ventilator 10/03/20 20:00 67 10/03/20 19:40 69 18 30 10/03/20 16:00 30 10/03/20 16:00 Mechanical Ventilator 10/03/20 15:57 98.1 71 15 123/52 (75) 100 10/03/20 15:41 69 16 30 10/03/20 15:18 75 10/03/20 12:00 30 10/03/20 12:00 Mechanical Ventilator 10/03/20 11:57 97.9 70 22 118/63 (81) 100 10/03/20 11:36 78 10/03/20 10:44 69 16 30 10/03/20 08:00 30 10/03/20 08:00 Mechanical Ventilator 10/03/20 08:00 98.2 73 19 136/75 (95) 100 10/03/20 07:56 63 10/03/20 07:44 62 12 30 10/03/20 04:00 30 10/03/20 04:00 98.1 76 22 110/54 (72) 100 10/03/20 04:00 Mechanical Ventilator 10/03/20 04:00 63 10/03/20 01:28 71 22 30 10/03/20 00:00 30 10/03/20 00:00 98.2 71 16 128/66 (86) 100 10/03/20 00:00 Mechanical Ventilator 10/03/20 00:00 63 Intake and Output 10/02/20 10/03/20 19:00 07:00 Intake Total 800 ml 700 ml Output Total 200 ml 155 ml Balance 600 ml 545 ml Free Water 200 ml 100 ml Tube Feeding 600 ml 600 ml Output Urine Total 200 ml 150 ml Stool Total 5 ml Laboratory Tests 10/03/20 03:31: White Blood Count 14.0H, Red Blood Count 3.05L, Hemoglobin 9.6L, Hematocrit 29.7L, Mean Corpuscular Volume 98, Mean Corpuscular Hemoglobin 31.6H, Mean Corpuscular Hemoglobin Concent 32.3, Red Cell Distribution Width 15.6H, Platelet Count 252, Mean Platelet Volume 6.4L, Neutrophils (%) (Auto) , Lymphocytes (%) (Auto) , Monocytes (%) (Auto) , Eosinophils (%) (Auto) , Basophils (%) (Auto) , Differential Total Cells Counted 100, Neutrophils % (Manual) 28L, Lymphocytes % (Manual) 20, Monocytes % (Manual) 4, Eosinophils % (Manual) 48H, Basophils % (Manual) 0, Band Neutrophils 0, Platelet Estimate Adequate, Platelet Morphology Normal, Anisocytosis 1+, Sodium Level 137, Potassium Level 5.4H, Chloride Level 106, Carbon Dioxide Level 28, Anion Gap 3L, Blood Urea Nitrogen 17, Creatinine 0.5L, Estimat Glomerular Filtration Rate > 60, Glucose Level 87, Calcium Level 9.6 10/03/20 05:39: POC Whole Blood Glucose 92 Height (Feet): 5 Height (Inches): 3.00 Weight (Pounds): 145 Objective debilitated Elderly woman on vent NCAT neck (+) trach coarse BS RR abd soft , flat, (+) GT no edema, (++) contractures Assessment/Plan Status: stable, progressing Assessment/Plan: Assessment - Urolithiasis with hydronephrosis - GT site drainage/discharge - resolved - Leukocytosis - Rising Alk phos - OBS - Resp failure, s/p Trach - s/p PEG for dysphagia, - Parkinsons - Schizophrenia - h/o decub ulcers - Severe anemia Recommendations - Urology f/u - GT care - Elevate HOB - monitor labs - abx per Tana Nance MD Oct 03, 2020 23:56
[2020-10-04] VITALS: BP 112/52
--- NOTE | 2020-10-04 00:36 | General Progress Note ---
Subjective Allergies: Coded Allergies: No Known Allergies (Unverified , 11/22/15) Subjective Above noted Tolerating TF Non verbal Objective Last 24 Hour Vital Signs Date Time Temp Pulse Resp B/P (MAP) Pulse Ox O2 Delivery O2 Flow Rate FiO2 10/04/20 00:00 Mechanical Ventilator 10/04/20 00:00 71 10/04/20 00:00 98.2 70 13 112/52 (72) 100 10/04/20 00:00 30 10/03/20 22:37 70 16 30 10/03/20 20:00 30 10/03/20 20:00 98.6 68 15 118/48 (71) 100 10/03/20 20:00 Mechanical Ventilator 10/03/20 20:00 67 10/03/20 19:40 69 18 30 10/03/20 16:00 30 10/03/20 16:00 Mechanical Ventilator 10/03/20 15:57 98.1 71 15 123/52 (75) 100 10/03/20 15:41 69 16 30 10/03/20 15:18 75 10/03/20 12:00 30 10/03/20 12:00 Mechanical Ventilator 10/03/20 11:57 97.9 70 22 118/63 (81) 100 10/03/20 11:36 78 10/03/20 10:44 69 16 30 10/03/20 08:00 30 10/03/20 08:00 Mechanical Ventilator 10/03/20 08:00 98.2 73 19 136/75 (95) 100 10/03/20 07:56 63 10/03/20 07:44 62 12 30 10/03/20 04:00 30 10/03/20 04:00 98.1 76 22 110/54 (72) 100 10/03/20 04:00 Mechanical Ventilator 10/03/20 04:00 63 10/03/20 01:28 71 22 30 Intake and Output 10/03/20 10/04/20 19:00 07:00 Intake Total 670 ml 120 ml Output Total 500 ml Balance 170 ml 120 ml Free Water 260 ml Tube Feeding 410 ml 120 ml Output Urine Total 500 ml # Bowel Movements 70 Laboratory Tests 10/03/20 03:31: White Blood Count 14.0H, Red Blood Count 3.05L, Hemoglobin 9.6L, Hematocrit 29.7L, Mean Corpuscular Volume 98, Mean Corpuscular Hemoglobin 31.6H, Mean Cor puscular Hemoglobin Concent 32.3, Red Cell Distribution Width 15.6H, Platelet Count 252, Mean Platelet Volume 6.4L, Neutrophils (%) (Auto) , Lymphocytes (%) (Auto) , Monocytes (%) (Auto) , Eosinophils (%) (Auto) , Basophils (%) (Auto) , Differential Total Cells Counted 100, Neutrophils % (Manual) 28L, Lymphocytes % (Manual) 20, Monocytes % (Manual) 4, Eosinophils % (Manual) 48H, Basophils % (Manual) 0, Band Neutrophils 0, Platelet Estimate Adequate, Platelet Morphology Normal, Anisocytosis 1+, Sodium Level 137, Potassium Level 5.4H, Chloride Level 106, Carbon Dioxide Level 28, Anion Gap 3L, Blood Urea Nitrogen 17, Creatinine 0.5L, Estimat Glomerular Filtration Rate > 60, Glucose Level 87, Calcium Level 9.6 10/03/20 05:39: POC Whole Blood Glucose 92 Height (Feet): 5 Height (Inches): 3.00 Weight (Pounds): 145 Objective debilitated Elderly woman on vent NCAT neck (+) trach coarse BS RR abd soft , flat, (+) GT no edema, (++) contractures Assessment/Plan Status: stable, progressing Assessment/Plan: Assessment - Urolithiasis with hydronephrosis - GT site drainage/discharge - resolved - Leukocytosis - Rising Alk phos - OBS - Resp failure, s/p Trach - s/p PEG for dysphagia, - Parkinsons - Schizophrenia - h/o decub ulcers - Severe anemia - high K noted Recommendations - Urology f/u - GT care - Elevate HOB - monitor labs - abx per ID - change TF to low K formula Tana Romano MD Oct 04, 2020 00:36
[2020-10-04 04:00] VITALS: BP 126/66
[2020-10-04 06:22] LABS: HEMATOCRIT 30.4 % (37.0-47.0); HEMOGLOBIN 9.9 G/DL (12.0-16.0); MEAN CORPUSCULAR VOLUME 97 FL (80-99); PLATELET COUNT 259 K/UL (150-450); RED BLOOD COUNT 3.14 M/UL (4.20-5.40); RED CELL DISTRIBUTION WIDTH 16.6 % (11.6-14.8); WHITE BLOOD COUNT 14.4 K/UL (4.8-10.8)
--- NOTE | 2020-10-04 06:46 | Hematology/Onc Progress Note ---
Assessment/Plan Assessment/Plan LABORATORY DATA: 04/2020 white count 4.7, platelets 140 otherwise CBC is normal. BMP shows chloride 110, creatinine 0.4. Albumin 2.9, otherwise normal. INR 1.0, PTT 27. Urinalysis shows 2+ leukocyte esterase. 09/16 wbc 10, hgb 7.5, plt 126 Imaging 07/01/20 cxr Bilateral patchy airspace opacities. Differential includes multifocal pneumonia and pulmonary edema. 09/16/20 cxr b/l infiltrates noted Assessment and Recommendations # Anemia of iron deficiency, has been persistent for months, now improved, as ferritin better --> Anemia workup has been ordered--> improved --> No evidence of hemolysis is noted, peripheral smear has been reviewed. --> Hgb goal >7. Transfuse prn. --> Iron iv not needed any further --> Medications have been reviewed --> gb 9-->8.4->>>>7.5-->9.4-->9->10-->9.4->10.1-->10.5-->10.2-->9.7->9.9 # Right breast calcifications --> does not have a breast mass on exam --> f/u as outpatient with mammo as needed --> do not do a us breast here # Thrombocytopenia - potential causes multifactorial, evaluate liver and viral etiologies to begin, also could be related to underlying medications, no wimproved --> Hep panel and HIV prior negative -> plt 183->203->199-->125->130 --> abx # Leukocytosis with Pna --> antibiotics per id --> wbc 16->10.8-->16-->18-->15-->14 --> smear is noted # Sepsis --> antibiotics per Infectious Disease. --> ABX vanc/zosyn->meropenem # Dehydration. --> PT and Dietary evaluation. # Hypertension --> Blood pressure control. # Dvt ppx scds The timing of this note does not necessarily reflect the time of the patient was seen Greatly appreciate consultation! Subjective Allergies: Coded Allergies: No Known Allergies (Unverified , 11/22/15) All Systems: reviewed and negative except above Subjective 09/18 labs are noted, no bleeding, seen by pulm, cbc is pending 09/19 gtube is running, meds reviewed, labs noted 09/20 labs reviewed, meds noted, cbc is pending, vanc was added recently 09/21 labs reviewed, meds noetd, hgb 10, bactrim, yovani, vanc 09/22 is satting well on the vent, abx, labs still pending for am 09/23 remains on vent, not in acute distress, no bleeding, no night sweats 09/25 labs pending, on trach, vent gtube, meds reviewed, feeds ongoing 09/26 obtunded, labs pending, trach/vent, no bleeding, meds noted 09/27 pending cbc, is s/p peg feeds, hany/trach 09/28 obtunded, no events, s/p peg, vent/trach, cleaned per Rn 09/29 nv, t/v, no night sweats, meds noted, no bleeding 09/30 nv, no bleeding, stones noted, with hydro on ct, labs reviewed 12: vent trach tolerating g tube feedings, no bleeding reported 10/02: tolerating vent settings, no distress. seen by uro. 10/03 labs reviewed, hgb 9.8, no bleeding, no hemolysis, dw rn 10/04 contracted, is on vent/mechanical, meds reviewed, labs noted Objective Objective Current Medications Medications (Trade) Dose Ordered Sig/Alex Route PRN Reason Start Time Stop Time Status Last Admin Dose Admin Acetaminophen (Tylenol) 500 mg Q4H PRN ORAL Mild Pain (Pain Scale 1-3) 09/15/20 23:15 10/15/20 23:14 09/23/20 16:49 Acetaminophen (Tylenol) 500 mg Q4H PRN ORAL Temp >100.5 09/15/20 23:15 10/15/20 23:14 09/24/20 16:19 Ascorbic Acid (Vitamin C) 250 mg TWICE A DAY ORAL 09/19/20 18:00 10/19/20 17:59 10/03/20 17:06 Hydralazine HCl (Apresoline) 10 mg Q2H PRN IV For High Blood Pressure 09/17/20 17:00 12/16/20 16:59 Levothyroxine Sodium (Synthroid) 100 mcg DAILY IV 10/04/20 09:00 10/26/20 12:59 Multivitamins (Multivitamins) 1 tab DAILY ORAL 09/20/20 09:00 10/20/20 08:59 10/03/20 09:48 Pantoprazole (Protonix) 40 mg EVERY 12 HOURS IVP 09/17/20 14:15 10/17/20 14:14 10/03/20 20:58 Last 24 Hour Vital Signs Date Time Temp Pulse Resp B/P (MAP) Pulse Ox O2 Delivery O2 Flow Rate FiO2 10/04/20 04:00 98.1 66 16 126/66 (86) 100 10/04/20 04:00 30 10/04/20 04:00 Mechanical Ventilator 10/04/20 04:00 78 10/04/20 03:12 73 23 30 10/04/20 00:00 Mechanical Ventilator 10/04/20 00:00 71 10/04/20 00:00 98.2 70 13 112/52 (72) 100 10/04/20 00:00 30 10/03/20 22:37 70 16 30 10/03/20 20:00 30 10/03/20 20:00 98.6 68 15 118/48 (71) 100 10/03/20 20:00 Mechanical Ventilator 10/03/20 20:00 67 10/03/20 19:40 69 18 30 10/03/20 16:00 30 10/03/20 16:00 Mechanical Ventilator 10/03/20 15:57 98.1 71 15 123/52 (75) 100 10/03/20 15:41 69 16 30 10/03/20 15:18 75 10/03/20 12:00 30 10/03/20 12:00 Mechanical Ventilator 10/03/20 11:57 97.9 70 22 118/63 (81) 100 10/03/20 11:36 78 10/03/20 10:44 69 16 30 10/03/20 08:00 30 10/03/20 08:00 Mechanical Ventilator 10/03/20 08:00 98.2 73 19 136/75 (95) 100 10/03/20 07:56 63 10/03/20 07:44 62 12 30 10/03/20 04:00 30 10/03/20 04:00 98.1 76 22 110/54 (72) 100 10/03/20 04:00 Mechanical Ventilator 10/03/20 04:00 63 10/03/20 01:28 71 22 30 10/03/20 00:00 30 10/03/20 00:00 98.2 71 16 128/66 (86) 100 10/03/20 00:00 Mechanical Ventilator 10/03/20 00:00 63 10/02/20 20:00 75 10/02/20 20:00 30 10/02/20 20:00 Mechanical Ventilator 10/02/20 20:00 98.2 72 17 109/56 (73) 100 10/02/20 19:29 74 21 30 10/02/20 16:00 58 10/02/20 16:00 Mechanical Ventilator 10/02/20 16:00 98.1 74 16 116/54 (74) 100 10/02/20 16:00 30 10/02/20 13:34 73 19 30 10/02/20 12:30 Mechanical Ventilator 10/02/20 12:00 71 10/02/20 12:00 97.7 68 17 133/72 (92) 100 10/02/20 12:00 30 10/02/20 08:15 Mechanical Ventilator 10/02/20 08:00 98.4 72 16 140/63 (88) 100 10/02/20 08:00 30 10/02/20 07:47 66 10/02/20 07:40 72 18 30 Intake and Output 10/03/20 10/04/20 19:00 07:00 Intake Total 670 ml 400 ml Output Total 500 ml Balance 170 ml 400 ml Free Water 260 ml Tube Feeding 410 ml 400 ml Output Urine Total 500 ml # Voids 2 # Bowel Movements 70 Labs Test 10/01/20 12:24 10/01/20 17:50 10/01/20 23:34 10/02/20 03:11 POC Whole Blood Glucose 96 MG/DL (74-106) 102 MG/DL (74-106) 90 MG/DL (74-106) White Blood Count 14.9 K/UL (4.8-10.8) Red Blood Count 3.07 M/UL (4.20-5.40) Hemoglobin 9.7 G/DL (12.0-16.0) Hematocrit 29.5 % (37.0-47.0) Mean Corpuscular Volume 96 FL (80-99) Mean Corpuscular Hemoglobin 31.5 PG (27.0-31.0) Mean Corpuscular Hemoglobin Concent 32.8 G/DL (32.0-36.0) Red Cell Distribution Width 17.3 % (11.6-14.8) Platelet Count 274 K/UL (150-450) Mean Platelet Volume 7.5 FL (6.5-10.1) Neutrophils (%) (Auto) % (45.0-75.0) Lymphocytes (%) (Auto) % (20.0-45.0) Monocytes (%) (Auto) % (1.0-10.0) Eosinophils (%) (Auto) % (0.0-3.0) Basophils (%) (Auto) % (0.0-2.0) Differential Total Cells Counted 100 Neutrophils % (Manual) 29 % (45-75) Lymphocytes % (Manual) 9 % (20-45) Monocytes % (Manual) 8 % (1-10) Eosinophils % (Manual) 54 % (0-3) Basophils % (Manual) 0 % (0-2) Band Neutrophils 0 % (0-8) Platelet Estimate Adequate Platelet Morphology Normal Hypochromasia 1+ Anisocytosis 1+ Sodium Level 138 MMOL/L (136-145) Potassium Level 4.9 MMOL/L (3.5-5.1) Chloride Level 107 MMOL/L (98-107) Carbon Dioxide Level 29 MMOL/L (21-32) Anion Gap 2 mmol/L (5-15) Blood Urea Nitrogen 17 mg/dL (7-18) Creatinine 0.5 MG/DL (0.55-1.30) Estimat Glomerular Filtration Rate > 60 mL/min (>60) Glucose Level 97 MG/DL (74-106) Calcium Level 9.8 MG/DL (8.5-10.1) Phosphorus Level 2.6 MG/DL (2.5-4.9) Magnesium Level 1.7 MG/DL (1.8-2.4) Total Bilirubin 0.4 MG/DL (0.2-1.0) Aspartate Amino Transf (AST/SGOT) 20 U/L (15-37) Alanine Aminotransferase (ALT/SGPT) 15 U/L (12-78) Alkaline Phosphatase 348 U/L (46-116) Total Protein 7.3 G/DL (6.4-8.2) Albumin 2.4 G/DL (3.4-5.0) Globulin 4.9 g/dL Albumin/Globulin Ratio 0.5 (1.0-2.7) Test 10/02/20 06:42 10/02/20 12:41 10/02/20 17:35 10/02/20 20:00 POC Whole Blood Glucose 105 MG/DL (74-106) 95 MG/DL (74-106) 94 MG/DL (74-106) Urine Color Pale yellow Urine Appearance Slightly cloudy Urine pH 7 (4.5-8.0) Urine Specific [place] 1.030 (1.005-1.035) Urine Protein 2+ (NEGATIVE) Urine Glucose (UA) Negative (NEGATIVE) Urine Ketones Negative (NEGATIVE) Urine Blood 2+ (NEGATIVE) Urine Nitrite Negative (NEGATIVE) Urine Bilirubin Negative (NEGATIVE) Urine Urobilinogen Normal MG/DL (0.0-1.0) Urine Leukocyte Esterase 1+ (NEGATIVE) Urine RBC 15-20 /HPF (0 - 2) Urine WBC 5-10 /HPF (0 - 2) Urine Squamous Epithelial Cells Few /LPF (NONE/OCC) Urine Amorphous Sediment Moderate /LPF (NONE) Urine Bacteria Moderate /HPF (NONE) Test 10/02/20 23:10 10/03/20 03:31 10/03/20 05:39 10/04/20 03:50 POC Whole Blood Glucose 101 MG/DL (74-106) 92 MG/DL (74-106) White Blood Count 14.0 K/UL (4.8-10.8) 14.4 K/UL (4.8-10.8) Red Blood Count 3.05 M/UL (4.20-5.40) 3.14 M/UL (4.20-5.40) Hemoglobin 9.6 G/DL (12.0-16.0) 9.9 G/DL (12.0-16.0) Hematocrit 29.7 % (37.0-47.0) 30.4 % (37.0-47.0) Mean Corpuscular Volume 98 FL (80-99) 97 FL (80-99) Mean Corpuscular Hemoglobin 31.6 PG (27.0-31.0) 31.6 PG (27.0-31.0) Mean Corpuscular Hemoglobin Concent 32.3 G/DL (32.0-36.0) 32.6 G/DL (32.0-36.0) Red Cell Distribution Width 15.6 % (11.6-14.8) 16.6 % (11.6-14.8) Platelet Count 252 K/UL (150-450) 259 K/UL (150-450) Mean Platelet Volume 6.4 FL (6.5-10.1) 6.8 FL (6.5-10.1) Neutrophils (%) (Auto) % (45.0-75.0) % (45.0-75.0) Lymphocytes (%) (Auto) % (20.0-45.0) % (20.0-45.0) Monocytes (%) (Auto) % (1.0-10.0) % (1.0-10.0) Eosinophils (%) (Auto) % (0.0-3.0) % (0.0-3.0) Basophils (%) (Auto) % (0.0-2.0) % (0.0-2.0) Differential Total Cells Counted 100 Neutrophils % (Manual) 28 % (45-75) Lymphocytes % (Manual) 20 % (20-45) Monocytes % (Manual) 4 % (1-10) Eosinophils % (Manual) 48 % (0-3) Basophils % (Manual) 0 % (0-2) Band Neutrophils 0 % (0-8) Platelet Estimate Adequate Platelet Morphology Normal Anisocytosis 1+ Sodium Level 137 MMOL/L (136-145) Potassium Level 5.4 MMOL/L (3.5-5.1) Chloride Level 106 MMOL/L (98-107) Carbon Dioxide Level 28 MMOL/L (21-32) Anion Gap 3 mmol/L (5-15) Blood Urea Nitrogen 17 mg/dL (7-18) Creatinine 0.5 MG/DL (0.55-1.30) Estimat Glomerular Filtration Rate > 60 mL/min (>60) Glucose Level 87 MG/DL (74-106) Calcium Level 9.6 MG/DL (8.5-10.1) Height (Feet): 5 Height (Inches): 3.00 Weight (Pounds): 145 Objective PHYSICAL EXAMINATION: GENERAL: obtunded, oriented x1, CARDIOVASCULAR: No murmur. LUNGS: Poor air exchange.+vent/trach ABDOMEN: Bowel sounds distant.++peg EXTREMITIES: No cyanosis, clubbing, or edema NEUROLOGIC: Neck, weakness as well leaning forward.bedbound++ Alan Cazares MD Oct 04, 2020 06:46
[2020-10-04 07:04] LABS: ALANINE AMINOTRANSFERASE 13 U/L (12-78); ALBUMIN 2.3 G/DL (3.4-5.0); ALBUMIN/GLOBULIN RATIO 0.5 (1.0-2.7); ALKALINE PHOSPHATASE 342 U/L (46-116); ANION GAP 5 mmol/L (5-15); ASPARTATE AMINO TRANSFERASE 19 U/L (15-37); BILIRUBIN,TOTAL 0.4 MG/DL (0.2-1.0); BLOOD UREA NITROGEN 17 mg/dL (7-18); CARBON DIOXIDE 29 MMOL/L (21-32); CHLORIDE 104 MMOL/L (98-107); CREATININE 0.4 MG/DL (0.55-1.30); POTASSIUM 4.3 MMOL/L (3.5-5.1); SODIUM 138 MMOL/L (136-145)
[2020-10-04 07:10] LABS: PHOSPHORUS 2.9 MG/DL (2.5-4.9)
--- NOTE | 2020-10-04 07:36 | NUR ---
NURSE HAND-OFF REPORT: Important Events on Shift: no changes ; d/c rectal tube for pasty stools Patient Status: Stable Diet: Nepro Pending Orders: Pending Results/Labs: Pending MD notification: Latest Vital Signs: Temperature 98.1 , Pulse 66 , B/P 126 /66 , Respiratory Rate 16 , O2 SAT 100 , Mechanical Ventilator, O2 Flow Rate 50.0 . Vital Sign Comment: WNL EKG Rhythm: Sinus Rhythm Rhythm change?: N MD Notified?: - MD Response: Latest [place] Fall Score: 50 Fall Risk: High Risk Safety Measures: Call light Within Reach, Bed Alarm Zone 1, Side Rails Side Rails x3, Bed position Low and Locked. Fall Precautions: Yellow Socks Yellow Gown Door Sign Report given to CRISTY Shelley.
--- NOTE | 2020-10-04 07:37 | NUR ---
NURSE NOTES: Received patient in bed asleep. With trache to vent: Portex 7, AC 12, TV 400, 30% FiO2, peep 5. IV line intact. Gtube intact, feeding ongoing. Purewick in place. HOB elevated. Bed locked in low position. Call light within reach. Will continue plan of care.
[2020-10-04 08:00] VITALS: BP 133/68
[2020-10-04] MEDS: Pantoprazole Inj IVP SCH (08:49)
[2020-10-04] MEDS: Ascorbic Acid 500mg tab ORAL SCH (08:50)
--- NOTE | 2020-10-04 10:02 | Infectious Diseases Prog Note ---
Assessment/Plan Assessment/Plan IMPRESSION: Fever resolved Eosinophilia & rash VRE sepsis ( Amp sensitive) Positive blood culture with Staph Hemolyticus likely contamination Serratia, Pseudomonas & Stenotrophomonas pneumonia, E coli UTI, Ventilator-dependent respiratory failure, Quadriplegia, Stage IV sacral ulcer, COPD, Iron deficiency anemia, Hypertension, history of atrial fibrillation. Negative COVI19 tests ? scabies, received Ivermectin Ureteral stone Mild R hydronephrosis & Hydroureter RECOMMENDATION: Observe off antibiotic Will f/u cultures Subjective ROS Limited/Unobtainable: Yes Constitutional: Denies: fever Allergies: Coded Allergies: No Known Allergies (Unverified , 11/22/15) Objective Last 24 Hour Vital Signs Date Time Temp Pulse Resp B/P (MAP) Pulse Ox O2 Delivery O2 Flow Rate FiO2 10/04/20 08:37 77 10/04/20 08:00 30 10/04/20 08:00 Mechanical Ventilator 10/04/20 08:00 98.1 76 20 133/68 (89) 100 10/04/20 07:20 80 20 30 10/04/20 04:00 98.1 66 16 126/66 (86) 100 10/04/20 04:00 30 10/04/20 04:00 Mechanical Ventilator 10/04/20 04:00 78 10/04/20 03:12 73 23 30 10/04/20 00:00 Mechanical Ventilator 10/04/20 00:00 71 10/04/20 00:00 98.2 70 13 112/52 (72) 100 10/04/20 00:00 30 10/03/20 22:37 70 16 30 10/03/20 20:00 30 10/03/20 20:00 98.6 68 15 118/48 (71) 100 10/03/20 20:00 Mechanical Ventilator 10/03/20 20:00 67 10/03/20 19:40 69 18 30 10/03/20 16:00 30 10/03/20 16:00 Mechanical Ventilator 10/03/20 15:57 98.1 71 15 123/52 (75) 100 10/03/20 15:41 69 16 30 10/03/20 15:18 75 10/03/20 12:00 30 10/03/20 12:00 Mechanical Ventilator 10/03/20 11:57 97.9 70 22 118/63 (81) 100 10/03/20 11:36 78 10/03/20 10:44 69 16 30 Height (Feet): 5 Height (Inches): 3.00 Weight (Pounds): 145 HEENT: status post trach Respiratory/Chest: lungs clear, other - on ventilator Cardiovascular: normal rate Abdomen: soft, non tender, other - GT feeding Extremities: other - dependent edema Skin: rash Neurologic/Psychiatric: aphasia, other - opens eyes Microbiology Date/Time Source Procedure Growth Status 10/02/20 20:00 Urine,Clean Catch Urine Culture - Preliminary Gram Negative Lopez Resulted Laboratory Tests Test 10/04/20 03:50 White Blood Count 14.4 K/UL (4.8-10.8) H Red Blood Count 3.14 M/UL (4.20-5.40) L Hemoglobin 9.9 G/DL (12.0-16.0) L Hematocrit 30.4 % (37.0-47.0) L Mean Corpuscular Volume 97 FL (80-99) Mean Corpuscular Hemoglobin 31.6 PG (27.0-31.0) H Mean Corpuscular Hemoglobin Concent 32.6 G/DL (32.0-36.0) Red Cell Distribution Width 16.6 % (11.6-14.8) H Platelet Count 259 K/UL (150-450) Mean Platelet Volume 6.8 FL (6.5-10.1) Neutrophils (%) (Auto) % (45.0-75.0) Lymphocytes (%) (Auto) % (20.0-45.0) Monocytes (%) (Auto) % (1.0-10.0) Eosinophils (%) (Auto) % (0.0-3.0) Basophils (%) (Auto) % (0.0-2.0) Sodium Level 138 MMOL/L (136-145) Potassium Level 4.3 MMOL/L (3.5-5.1) Chloride Level 104 MMOL/L (98-107) Carbon Dioxide Level 29 MMOL/L (21-32) Anion Gap 5 mmol/L (5-15) Blood Urea Nitrogen 17 mg/dL (7-18) Creatinine 0.4 MG/DL (0.55-1.30) L Estimat Glomerular Filtration Rate > 60 mL/min (>60) Glucose Level 93 MG/DL (74-106) Calcium Level 10.0 MG/DL (8.5-10.1) Phosphorus Level 2.9 MG/DL (2.5-4.9) Magnesium Level 1.9 MG/DL (1.8-2.4) Total Bilirubin 0.4 MG/DL (0.2-1.0) Aspartate Amino Transf (AST/SGOT) 19 U/L (15-37) Alanine Aminotransferase (ALT/SGPT) 13 U/L (12-78) Alkaline Phosphatase 342 U/L (46-116) H Total Protein 7.3 G/DL (6.4-8.2) Albumin 2.3 G/DL (3.4-5.0) L Globulin 5.0 g/dL Albumin/Globulin Ratio 0.5 (1.0-2.7) L Current Medications Medications (Trade) Dose Ordered Sig/Alex Route PRN Reason Start Time Stop Time Status Last Admin Dose Admin Acetaminophen (Tylenol) 500 mg Q4H PRN ORAL Mild Pain (Pain Scale 1-3) 09/15/20 23:15 10/15/20 23:14 09/23/20 16:49 Acetaminophen (Tylenol) 500 mg Q4H PRN ORAL Temp >100.5 09/15/20 23:15 10/15/20 23:14 09/24/20 16:19 Ascorbic Acid (Vitamin C) 250 mg TWICE A DAY ORAL 09/19/20 18:00 10/19/20 17:59 10/04/20 08:50 Hydralazine HCl (Apresoline) 10 mg Q2H PRN IV For High Blood Pressure 09/17/20 17:00 12/16/20 16:59 Levothyroxine Sodium (Synthroid) 100 mcg DAILY IV 10/04/20 09:00 10/26/20 12:59 10/04/20 08:50 Multivitamins (Multivitamins) 1 tab DAILY ORAL 09/20/20 09:00 10/20/20 08:59 10/04/20 08:50 Pantoprazole (Protonix) 40 mg EVERY 12 HOURS IVP 09/17/20 14:15 10/17/20 14:14 10/04/20 08:49 Mahesh Nicole MD Oct 04, 2020 10:02
--- NOTE | 2020-10-04 10:51 | Cardiac Electrophysiology PN ---
Assessment/Plan Assessment/Plan 1. Hypertension, currently blood pressure stable. On p.r.n. Hydralazine and clonidine Mildly bradycardic in high 50s 2. VDRF status post tracheostomy on 30% FiO2, in sinus rhythm. COVID was negative. 3. Severe anemia, hemoglobin 7.5. S/P blood transfusion. Etiology is not clear at this time, but creatinine is within normal range. 4. Elevated BNP of more than 4000. Echo EF 65% 5. Dysphagia, status post PEG replacement 09/22/20. 6. VRE sepsis ( Amp sensitive), Gram positive bacteremia, Pseudomonas pneumonia, E coli UTI, on iv Abx per ID 7. Sacral Decubitus 8. Multiple ureteral stone. in the distal right ureter and a nonobstructing stone in the right renal pelvis FU urology DW RN OK to Dc from cardiac perspective Subjective Subjective Off covid isolation. GT replaced 09/22/20 On the Vent with 30% Fio2 off restraints. CT abdomen that showed at least 4 stones identified in the distal right ureter with mild right hydronephrosis and hydroureter. The largest, most distal stone, just proximal to the UVJ measures 12 x 6 mm. There is a nonobstructing stone in the right renal pelvis measuring 13 x 14 mm as well as a stone in the right lower pole calyx measuring 11 x 7 mm. In SR in 50s with no events. PEG feeding was changed Objective Last 24 Hour Vital Signs Date Time Temp Pulse Resp B/P (MAP) Pulse Ox O2 Delivery O2 Flow Rate FiO2 10/04/20 08:37 77 10/04/20 08:00 30 10/04/20 08:00 Mechanical Ventilator 10/04/20 08:00 98.1 76 20 133/68 (89) 100 10/04/20 07:20 80 20 30 10/04/20 04:00 98.1 66 16 126/66 (86) 100 10/04/20 04:00 30 10/04/20 04:00 Mechanical Ventilator 10/04/20 04:00 78 10/04/20 03:12 73 23 30 10/04/20 00:00 Mechanical Ventilator 10/04/20 00:00 71 10/04/20 00:00 98.2 70 13 112/52 (72) 100 10/04/20 00:00 30 10/03/20 22:37 70 16 30 10/03/20 20:00 30 10/03/20 20:00 98.6 68 15 118/48 (71) 100 10/03/20 20:00 Mechanical Ventilator 10/03/20 20:00 67 10/03/20 19:40 69 18 30 10/03/20 16:00 30 10/03/20 16:00 Mechanical Ventilator 10/03/20 15:57 98.1 71 15 123/52 (75) 100 10/03/20 15:41 69 16 30 10/03/20 15:18 75 10/03/20 12:00 30 10/03/20 12:00 Mechanical Ventilator 10/03/20 11:57 97.9 70 22 118/63 (81) 100 10/03/20 11:36 78 Intake and Output 10/03/20 10/04/20 19:00 07:00 Intake Total 670 ml 400 ml Output Total 500 ml Balance 170 ml 400 ml Free Water 260 ml Tube Feeding 410 ml 400 ml Output Urine Total 500 ml # Voids 2 # Bowel Movements 70 Laboratory Tests Test 10/04/20 03:50 White Blood Count 14.4 K/UL (4.8-10.8) H Red Blood Count 3.14 M/UL (4.20-5.40) L Hemoglobin 9.9 G/DL (12.0-16.0) L Hematocrit 30.4 % (37.0-47.0) L Mean Corpuscular Volume 97 FL (80-99) Mean Corpuscular Hemoglobin 31.6 PG (27.0-31.0) H Mean Corpuscular Hemoglobin Concent 32.6 G/DL (32.0-36.0) Red Cell Distribution Width 16.6 % (11.6-14.8) H Platelet Count 259 K/UL (150-450) Mean Platelet Volume 6.8 FL (6.5-10.1) Neutrophils (%) (Auto) % (45.0-75.0) Lymphocytes (%) (Auto) % (20.0-45.0) Monocytes (%) (Auto) % (1.0-10.0) Eosinophils (%) (Auto) % (0.0-3.0) Basophils (%) (Auto) % (0.0-2.0) Sodium Level 138 MMOL/L (136-145) Potassium Level 4.3 MMOL/L (3.5-5.1) Chloride Level 104 MMOL/L (98-107) Carbon Dioxide Level 29 MMOL/L (21-32) Anion Gap 5 mmol/L (5-15) Blood Urea Nitrogen 17 mg/dL (7-18) Creatinine 0.4 MG/DL (0.55-1.30) L Estimat Glomerular Filtration Rate > 60 mL/min (>60) Glucose Level 93 MG/DL (74-106) Calcium Level 10.0 MG/DL (8.5-10.1) Phosphorus Level 2.9 MG/DL (2.5-4.9) Magnesium Level 1.9 MG/DL (1.8-2.4) Total Bilirubin 0.4 MG/DL (0.2-1.0) Aspartate Amino Transf (AST/SGOT) 19 U/L (15-37) Alanine Aminotransferase (ALT/SGPT) 13 U/L (12-78) Alkaline Phosphatase 342 U/L (46-116) H Total Protein 7.3 G/DL (6.4-8.2) Albumin 2.3 G/DL (3.4-5.0) L Globulin 5.0 g/dL Albumin/Globulin Ratio 0.5 (1.0-2.7) L Microbiology Date/Time Source Procedure Growth Status 10/02/20 20:00 Urine,Clean Catch Urine Culture - Preliminary Gram Negative Lopez Resulted Objective HEAD AND NECK: No JVD.S/P Trach LUNGS: Coarse rhonchi. CARDIOVASCULAR: Regular S1 and S2 with no gallop. ABDOMEN: Status post PEG. EXTREMITIES: 1+ pitting edema. Flex Bess MD Oct 04, 2020 10:51
--- NOTE | 2020-10-04 10:55 | NUR ---
[employer] SI: Respiratory Failure, Trach/Vent Dependent, Leukocytosis, Hypothyroidism T-98.1, HR 76, RR 20, BP 133/68 AC 12, TV 400, FiO2 30%, PEEP 5, O2 sat 100% WBC 14.4 IS: Synthroid IV Apresoline IV Protonix IVP DCP: Pending discharge Step Down Status
--- NOTE | 2020-10-04 11:13 | Pulmonology Progress Note ---
Subjective ROS Limited/Unobtainable: Yes Interval Events: None new Constitutional: Denies: fever HEENT: Repors: no symptoms Respiratory: Reports: no symptoms Cardiovascular: Reports: no symptoms Gastrointestinal/Abdominal: Denies: diarrhea Genitourinary: Reports: no symptoms Allergies: Coded Allergies: No Known Allergies (Unverified , 11/22/15) All Systems: reviewed and negative except above Objective Last 24 Hour Vital Signs Date Time Temp Pulse Resp B/P (MAP) Pulse Ox O2 Delivery O2 Flow Rate FiO2 10/04/20 08:37 77 10/04/20 08:00 30 10/04/20 08:00 Mechanical Ventilator 10/04/20 08:00 98.1 76 20 133/68 (89) 100 10/04/20 07:20 80 20 30 10/04/20 04:00 98.1 66 16 126/66 (86) 100 10/04/20 04:00 30 10/04/20 04:00 Mechanical Ventilator 10/04/20 04:00 78 10/04/20 03:12 73 23 30 10/04/20 00:00 Mechanical Ventilator 10/04/20 00:00 71 10/04/20 00:00 98.2 70 13 112/52 (72) 100 10/04/20 00:00 30 10/03/20 22:37 70 16 30 10/03/20 20:00 30 10/03/20 20:00 98.6 68 15 118/48 (71) 100 10/03/20 20:00 Mechanical Ventilator 10/03/20 20:00 67 10/03/20 19:40 69 18 30 10/03/20 16:00 30 10/03/20 16:00 Mechanical Ventilator 10/03/20 15:57 98.1 71 15 123/52 (75) 100 10/03/20 15:41 69 16 30 10/03/20 15:18 75 10/03/20 12:00 30 10/03/20 12:00 Mechanical Ventilator 10/03/20 11:57 97.9 70 22 118/63 (81) 100 10/03/20 11:36 78 Intake and Output 10/03/20 10/04/20 19:00 07:00 Intake Total 670 ml 400 ml Output Total 500 ml Balance 170 ml 400 ml Free Water 260 ml Tube Feeding 410 ml 400 ml Output Urine Total 500 ml # Voids 2 # Bowel Movements 70 Objective saturating well on current vent setting General Appearance: no acute distress HEENT: normocephalic, atraumatic, status post trach Respiratory: chest wall non-tender, lungs clear, other - coarse rhonchi Cardiovascular: normal rate, regular rhythm Abdomen: normal bowel sounds, distended Microbiology Date/Time Source Procedure Growth Status 10/02/20 20:00 Urine,Clean Catch Urine Culture - Preliminary Gram Negative Lopez Resulted Laboratory Tests 10/04/20 03:50: White Blood Count 14.4H, Red Blood Count 3.14L, Hemoglobin 9.9L, Hematocrit 30.4L, Mean Corpuscular Volume 97, Mean Corpuscular Hemoglobin 31.6H, Mean C orpuscular Hemoglobin Concent 32.6, Red Cell Distribution Width 16.6H, Platelet Count 259, Mean Platelet Volume 6.8, Neutrophils (%) (Auto) , Lymphocytes (%) (Auto) , Monocytes (%) (Auto) , Eosinophils (%) (Auto) , Basophils (%) (Auto) , Sodium Level 138, Potassium Level 4.3, Chloride Level 104, Carbon Dioxide Level 29, Anion Gap 5, Blood Urea Nitrogen 17, Creatinine 0.4L, Estimat Glomerular Filtration Rate > 60, Glucose Level 93, Calcium Level 10.0, Phosphorus Level 2.9, Magnesium Level 1.9, Total Bilirubin 0.4, Aspartate Amino Transf (AST/SGOT) 19, Alanine Aminotransferase (ALT/SGPT) 13, Alkaline Phosphatase 342H, Total Protein 7.3, Albumin 2.3L, Globulin 5.0, Albumin/Globulin Ratio 0.5L Current Medications Medications (Trade) Dose Ordered Sig/Alex Route PRN Reason Start Time Stop Time Status Last Admin Dose Admin Acetaminophen (Tylenol) 500 mg Q4H PRN ORAL Mild Pain (Pain Scale 1-3) 09/15/20 23:15 10/15/20 23:14 09/23/20 16:49 Acetaminophen (Tylenol) 500 mg Q4H PRN ORAL Temp >100.5 09/15/20 23:15 10/15/20 23:14 09/24/20 16:19 Ascorbic Acid (Vitamin C) 250 mg TWICE A DAY ORAL 09/19/20 18:00 10/19/20 17:59 10/04/20 08:50 Hydralazine HCl (Apresoline) 10 mg Q2H PRN IV For High Blood Pressure 09/17/20 17:00 12/16/20 16:59 Levothyroxine Sodium (Synthroid) 100 mcg DAILY IV 10/04/20 09:00 10/26/20 12:59 10/04/20 08:50 Multivitamins (Multivitamins) 1 tab DAILY ORAL 09/20/20 09:00 10/20/20 08:59 10/04/20 08:50 Pantoprazole (Protonix) 40 mg EVERY 12 HOURS IVP 09/17/20 14:15 10/17/20 14:14 10/04/20 08:49 Assessment/Plan Assessment/Plan 1. Anemia, likely iron deficiency. - s/p IV iron. - s/p transfusion per Dr. Cazares. 2. Interstitial infiltrates, has pneumonia. - Sputum -> Serratia - Antibiotics per ID. - Continue supplemental oxygen; continue ventilator, AC mode.FiO2 30% 3. Sepsis. - Antibiotics per ID. Gm neg rods in sputum CS; confirmed Serratia 4. History of fever. - Currently afebrile. 5. Possible COVID-19 infection. - Swab COVID-19 test negative. - Repeat PCR COVID-19 also negative 6. CHF. - 2D echocardiogram LVEF 60-65%. 7. UTI. - On antibiotics. Has ESBL E. Coli 8. Elevated D-dimer. 9. DVT prophylaxis. - Venous duplex ultrasound negative. - on SCD 10. Chronic Respiratory Failure; continue vent; AC mode 11. Rising alk phos - CT abd showed stones in ureter and renal pelvis - urology recs noted The care for this patient was discussed with my supervising physician Time spent for this case was approximately 31 minutes Uriel Díaz Oct 04, 2020 11:13
[2020-10-04 12:00] VITALS: BP 138/72
--- NOTE | 2020-10-04 13:40 | General Progress Note ---
Subjective Constitutional: Reports: weakness Allergies: Coded Allergies: No Known Allergies (Unverified , 11/22/15) All Systems: reviewed and negative except above Subjective trach vent altered Objective Last 24 Hour Vital Signs Date Time Temp Pulse Resp B/P (MAP) Pulse Ox O2 Delivery O2 Flow Rate FiO2 10/04/20 12:28 72 10/04/20 11:10 76 20 30 10/04/20 08:37 77 10/04/20 08:00 30 10/04/20 08:00 Mechanical Ventilator 10/04/20 08:00 98.1 76 20 133/68 (89) 100 10/04/20 07:20 80 20 30 10/04/20 04:00 98.1 66 16 126/66 (86) 100 10/04/20 04:00 30 10/04/20 04:00 Mechanical Ventilator 10/04/20 04:00 78 10/04/20 03:12 73 23 30 10/04/20 00:00 Mechanical Ventilator 10/04/20 00:00 71 10/04/20 00:00 98.2 70 13 112/52 (72) 100 10/04/20 00:00 30 10/03/20 22:37 70 16 30 10/03/20 20:00 30 10/03/20 20:00 98.6 68 15 118/48 (71) 100 10/03/20 20:00 Mechanical Ventilator 10/03/20 20:00 67 10/03/20 19:40 69 18 30 10/03/20 16:00 30 10/03/20 16:00 Mechanical Ventilator 10/03/20 15:57 98.1 71 15 123/52 (75) 100 10/03/20 15:41 69 16 30 10/03/20 15:18 75 Intake and Output 10/03/20 10/04/20 19:00 07:00 Intake Total 670 ml 400 ml Output Total 500 ml Balance 170 ml 400 ml Free Water 260 ml Tube Feeding 410 ml 400 ml Output Urine Total 500 ml # Voids 2 # Bowel Movements 70 Laboratory Tests 10/04/20 03:50: White Blood Count 14.4H, Red Blood Count 3.14L, Hemoglobin 9.9L, Hematocrit 30.4L, Mean Corpuscular Volume 97, Mean Corpuscular Hemoglobin 31.6H, Mean Corpuscular Hemoglobin Concent 32.6, Red Cell Distribution Width 16.6H, Platelet Count 259, Mean Platelet Volume 6.8, Neutrophils (%) (Auto) , Lymphocytes (%) (Auto) , Monocytes (%) (Auto) , Eosinophils (%) (Auto) , Basophils (%) (Auto) , Sodium Level 138, Potassium Level 4.3, Chloride Level 104, Carbon Dioxide Level 29, Anion Gap 5, Blood Urea Nitrogen 17, Creatinine 0.4L, Estimat Glomerular Filtration Rate > 60, Glucose Level 93, Calcium Level 10.0, Phosphorus Level 2.9, Magnesium Level 1.9, Total Bilirubin 0.4, Aspartate Amino Transf (AST/SGOT) 19, Alanine Aminotransferase (ALT/SGPT) 13, Alkaline Phosphatase 342H, Total Protein 7.3, Albumin 2.3L, Globulin 5.0, Albumin/Globulin Ratio 0.5L Height (Feet): 5 Height (Inches): 3.00 Weight (Pounds): 145 General Appearance: lethargic EENT: normal ENT inspection Neck: normal alignment Cardiovascular: normal peripheral pulses, normal rate, regular rhythm Respiratory/Chest: chest wall non-tender, lungs clear, normal breath sounds Abdomen: normal bowel sounds, non tender, soft Extremities: normal inspection Edema: no edema noted Arm (L), no edema noted Arm (R), no edema noted Leg (L), no edema noted Leg (R), no edema noted Pedal (L), no edema noted Pedal (R), no edema noted Generalized Neurologic: motor weakness Skin: normal pigmentation, warm/dry Assessment/Plan Problem List: (1) Functional quadriplegia ICD Codes: R53.2 - Functional quadriplegia SNOMED: 817942633482808 (2) Person under investigation for COVID-19 ICD Codes: Z20.828 - Contact with and (suspected) exposure to other viral communicable diseases SNOMED: 177264201 (3) Chronic respiratory failure ICD Codes: J96.10 - Chronic respiratory failure, unspecified whether with hypoxia or hypercapnia SNOMED: 24266767 (4) Dehydration ICD Codes: E86.0 - Dehydration SNOMED: 18021507 (5) Hypernatremia ICD Codes: E87.0 - Hyperosmolality and hypernatremia SNOMED: 117869448 (6) Hypothyroidism ICD Codes: E03.9 - Hypothyroidism, unspecified SNOMED: 44272670 (7) Pyelonephritis ICD Codes: N12 - Tubulo-interstitial nephritis, not specified as acute or chronic SNOMED: 79816734 (8) Protein calorie malnutrition ICD Codes: E46 - Unspecified protein-calorie malnutrition SNOMED: 705255648 (9) Failure to thrive (child) ICD Codes: R62.51 - Failure to thrive (child) SNOMED: 355290493 (10) Sacral decubitus ulcer ICD Codes: L89.159 - Pressure ulcer of sacral region, unspecified stage SNOMED: 058173129 (11) Tracheostomy dependence ICD Codes: Z93.0 - Tracheostomy status SNOMED: 940764240 (12) Pneumonia ICD Codes: J18.9 - Pneumonia, unspecified organism SNOMED: 770440800 Qualifiers: Qualified Codes: J18.9 - Pneumonia, unspecified organism (13) Hypothyroidism ICD Codes: E03.9 - Hypothyroidism, unspecified SNOMED: 28689261 (14) Electrolyte imbalance ICD Codes: E87.8 - Other disorders of electrolyte and fluid balance, not elsewhere classified SNOMED: 790651886 (15) Sepsis ICD Codes: A41.9 - Sepsis, unspecified organism SNOMED: 07798691 (16) UTI (urinary tract infection) ICD Codes: N39.0 - Urinary tract infection, site not specified SNOMED: 16642124 Qualifiers: Qualified Codes: N39.0 - Urinary tract infection, site not specified (17) Anemia ICD Codes: D64.9 - Anemia, unspecified SNOMED: 360416268 Qualifiers: Qualified Codes: D64.9 - Anemia, unspecified (18) Dysphagia ICD Codes: R13.10 - Dysphagia, unspecified SNOMED: 02001062, 448728682 (19) Hypoalbuminemia ICD Codes: E88.09 - Other disorders of plasma-protein metabolism, not elsewhere classified SNOMED: 405658116 (20) Iron deficiency ICD Codes: E61.1 - Iron deficiency SNOMED: 94075295 (21) At high risk for aspiration ICD Codes: Z91.89 - Other specified personal risk factors, not elsewhere classified SNOMED: 168342519 (22) Parkinson disease ICD Codes: G20 - Parkinson's disease SNOMED: 32824004 (23) Dementia ICD Codes: F03.90 - Unspecified dementia without behavioral disturbance SNOMED: 15725456 (24) Elevated CEA ICD Codes: R97.0 - Elevated carcinoembryonic antigen [CEA] SNOMED: 86021793, 130871132 (25) Paroxysmal A-fib ICD Codes: I48.0 - Paroxysmal atrial fibrillation SNOMED: 605380922 (26) Pancytopenia ICD Codes: D61.818 - Other pancytopenia SNOMED: 401989642 Status: stable, progressing Assessment/Plan: vent abx cbc bmp am dc plan if id clear Tony Dupree DO Oct 04, 2020 13:40
--- NOTE | 2020-10-04 14:57 | Surgery Progress Note ---
Surgery Progress Note Subjective Additional Comments afebrile, HD stable wbc 14k persistent non /v Objective Last 24 Hour Vital Signs Date Time Temp Pulse Resp B/P (MAP) Pulse Ox O2 Delivery O2 Flow Rate FiO2 10/04/20 12:28 72 10/04/20 12:00 97.8 79 22 138/72 (94) 100 10/04/20 11:10 76 20 30 10/04/20 08:37 77 10/04/20 08:00 30 10/04/20 08:00 Mechanical Ventilator 10/04/20 08:00 98.1 76 20 133/68 (89) 100 10/04/20 07:20 80 20 30 10/04/20 04:00 98.1 66 16 126/66 (86) 100 10/04/20 04:00 30 10/04/20 04:00 Mechanical Ventilator 10/04/20 04:00 78 10/04/20 03:12 73 23 30 10/04/20 00:00 Mechanical Ventilator 10/04/20 00:00 71 10/04/20 00:00 98.2 70 13 112/52 (72) 100 10/04/20 00:00 30 10/03/20 22:37 70 16 30 10/03/20 20:00 30 10/03/20 20:00 98.6 68 15 118/48 (71) 100 10/03/20 20:00 Mechanical Ventilator 10/03/20 20:00 67 10/03/20 19:40 69 18 30 10/03/20 16:00 30 10/03/20 16:00 Mechanical Ventilator 10/03/20 15:57 98.1 71 15 123/52 (75) 100 10/03/20 15:41 69 16 30 10/03/20 15:18 75 I&O Intake and Output 10/03/20 10/04/20 19:00 07:00 Intake Total 670 ml 400 ml Output Total 500 ml Balance 170 ml 400 ml Free Water 260 ml Tube Feeding 410 ml 400 ml Output Urine Total 500 ml # Voids 2 # Bowel Movements 70 Dressing: saturated Cardiovascular: RSR Respiratory: decreased breath sounds Abdomen: soft, non-tender, present bowel sounds Extremities: no tenderness, no cyanosis, other Laboratory Tests Test 10/04/20 03:50 White Blood Count 14.4 K/UL (4.8-10.8) H Red Blood Count 3.14 M/UL (4.20-5.40) L Hemoglobin 9.9 G/DL (12.0-16.0) L Hematocrit 30.4 % (37.0-47.0) L Mean Corpuscular Volume 97 FL (80-99) Mean Corpuscular Hemoglobin 31.6 PG (27.0-31.0) H Mean Corpuscular Hemoglobin Concent 32.6 G/DL (32.0-36.0) Red Cell Distribution Width 16.6 % (11.6-14.8) H Platelet Count 259 K/UL (150-450) Mean Platelet Volume 6.8 FL (6.5-10.1) Neutrophils (%) (Auto) % (45.0-75.0) Lymphocytes (%) (Auto) % (20.0-45.0) Monocytes (%) (Auto) % (1.0-10.0) Eosinophils (%) (Auto) % (0.0-3.0) Basophils (%) (Auto) % (0.0-2.0) Sodium Level 138 MMOL/L (136-145) Potassium Level 4.3 MMOL/L (3.5-5.1) Chloride Level 104 MMOL/L (98-107) Carbon Dioxide Level 29 MMOL/L (21-32) Anion Gap 5 mmol/L (5-15) Blood Urea Nitrogen 17 mg/dL (7-18) Creatinine 0.4 MG/DL (0.55-1.30) L Estimat Glomerular Filtration Rate > 60 mL/min (>60) Glucose Level 93 MG/DL (74-106) Calcium Level 10.0 MG/DL (8.5-10.1) Phosphorus Level 2.9 MG/DL (2.5-4.9) Magnesium Level 1.9 MG/DL (1.8-2.4) Total Bilirubin 0.4 MG/DL (0.2-1.0) Aspartate Amino Transf (AST/SGOT) 19 U/L (15-37) Alanine Aminotransferase (ALT/SGPT) 13 U/L (12-78) Alkaline Phosphatase 342 U/L (46-116) H Total Protein 7.3 G/DL (6.4-8.2) Albumin 2.3 G/DL (3.4-5.0) L Globulin 5.0 g/dL Albumin/Globulin Ratio 0.5 (1.0-2.7) L Plan Problems: (1) Pneumonia (2) Functional quadriplegia (3) Person under investigation for COVID-19 (4) Chronic respiratory failure (5) Dehydration (6) Hypernatremia (7) Hypothyroidism (8) Pyelonephritis (9) Protein calorie malnutrition Assessment & Plan: DAILY ESTIMATED NEEDS: Needs based on Wound, critical care 57.5kg abw 25-30 kcals/kg 6481-7421 total kcals 1.25-2 g protein/kg 72-115 g total protein 25-30 mL/kg 9283-7911 total fluid mLs NUTRITION DIAGNOSIS: * Increased kcal/prot needs R/T wound healing as evidenced by pt w/ h/o stage 4 sacral wound, eval is pending. * Swallowing difficulty R/T dysphagia, respiratory status as evidenced by pt is Trach and PEG dep. CURRENT TF: Glucerna 1.2 goal of 50ml/hr x22 ENTERAL NUTRITION RECOMMENDATIONS: Glucerna 1.2 @ 60ml/hr x 22 hrs to provide 1320ml, 1584 kcal, 79g pro, 1063ml free H2O * Increase goal by 10ml/hr to goal of 60ml/hr x24 hrs to better meet est needs. * Add TYRESE in 4oz water BID via PEG for wound healing * HOB over 30 degrees/ water flush per MD ----- With elevated potassium (now 5.4), rec TF change to Nepro w/ goal of 40ml/hr x22 hrs to provide 880ml, 1584 kcal, 71g pro, 640ml free H2O. - Rec added Prosource 1 pack qdaily to better meet est pro needs. - TF to provide 933mg K/day, est 1289mg less potassium than current Tf of Glucerna 1.2. ADDITIONAL RECOMMENDATIONS: * Calibrated bedscale wt for accurate CBW * Wound healing: TYRESE BID via GT continue Vit C + ZnSO4 * Monitor lytes, replete as needed (Low Mg) * Monitor BGs w/ TF-> bed side BG checks + NISS * Add probiotics: +diarrhea (10) Failure to thrive (child) (11) Sacral decubitus ulcer Assessment & Plan: Pt presented on admission with Tracheostomy, GT, and multiple Pressure injuries. No erythema or evidence of skin breakdown under tracheal collar. dry dark brown skin plaque noted at R lateral chest to R flank. Full thickness stage 4 Sacral Pressure Injury with undermined borders(L)2cm x (W)2cm x (D)2cm, undermining clockwise 11-3 by 2.3cm @3o'clock.Ability to accurately assess base of wound is not fully appreciated secondary to shape of wound. (+) Epibole along edges of wound. Silver Nitrate sticks application applied to Borders. Bone is palpable when probed.Small amt brown exudate noted. No odor noted. [place] Atrophic scar periwound. Resolving Pressure Injury R Ischium. [place] epithelial noted at base of wound. Intact serous Blister noted to monica/upper L thigh. No erythema or changes in skin temp at affected site. Reabsorbing DTPI L Hallux. Base of Pressure injury is dark brown,dry without erythema,induration or fluctuance. L Heel is boggy with non-blanchable erythema. R Heel is boggy but blanchable. Tx.Plan: Cleanse Sacral wound with Saline. Loosely pack with Therahoney impregnated Kerlix.Apply Moisture Barrier Paste periwound. Cover with Optifoam drsg every 3 days and prn. Apply Moisture Barrier Paste to R Ischium. Cover with Optifoam drsg. Change every 3 days and prn. Apply Phytoplex Skin Nourishing lotion to Lateral R chest /R Flank Daily. Apply Cavilon Skin Barrier to R and L Heel. Cover each heel with Optifoam drsg.Change every 7 days and prn. Reposition at least every 2hours or as tolerated. Off-load heels with pillow. 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 No mass. Gallbladder and bile ducts: Unremarkable. No calcified stones. No ductal dilation. Pancreas: Unremarkable. No mass. No ductal dilation. Spleen: Unremarkable. No splenomegaly. Adrenals: Unremarkable. No mass. Kidneys and ureters: There are at least 4 stones identified in the distal right ureter with mild right hydronephrosis and hydroureter. The largest, most distal stone, just proximal to the UVJ measures 12 x 6 mm. There are two 2-3 mm stones in the more proximal ureter as well as a fourth stone measuring 13 x 7 mm. There is a nonobstructing stone in the right renal pelvis measuring 13 x 14 mm as well as a stone in the right lower pole calyx measuring 11 x 7 mm. There are multiple nonobstructing left renal stones ranging from 3-10 mm in diameter. No left hydronephrosis identified. Stomach and bowel: Unremarkable. No obstruction. No mucosal thickening. PELVIS: Appendix: No findings to suggest acute appendicitis. Bladder: Unremarkable. No mass. Reproductive: Unremarkable as visualized. ABDOMEN and PELVIS: Intraperitoneal space: Unremarkable. No free air. No significant fluid collection. Bones/joints: No acute fracture. No dislocation. Soft tissues: Unremarkable. Vasculature: Unremarkable. No abdominal aortic aneurysm. Lymph nodes: Unremarkable. No enlarged lymph nodes. Tubes, lines and devices: There is a gastrostomy tube in good position. IMPRESSION: 1. There are at least 4 stones identified in the distal right ureter with mild right hydronephrosis and hydroureter. The largest, most distal stone, just proximal to the UVJ measures 12 x 6 mm. There are two 2-3 mm stones in the more proximal ureter as well as a fourth stone measuring 13 x 7 mm. 2. There is a nonobstructing stone in the right renal pelvis measuring 13 x 14 mm as well as a stone in the right lower pole calyx measuring 11 x 7 mm. (14) UTI (urinary tract infection) (15) Anemia (16) Dysphagia (17) Hypoalbuminemia (18) Iron deficiency (19) At high risk for aspiration (20) Parkinson disease (21) Dementia (22) Elevated CEA (23) Paroxysmal A-fib (24) Pancytopenia (25) Hypothyroidism (26) Electrolyte imbalance Holland Petty Oct 04, 2020 14:57
[2020-10-04] MEDS ORDERED: ACETAMINOPHEN500 M5 ORAL ×2 (15:15→15:17)
[2020-10-04] MEDS ORDERED: ASCORBIC ACID500 MG ORAL (15:24)
[2020-10-04] MEDS ORDERED: MULTIVITAMINS1 EAC2 ORAL (15:25)
--- NOTE | 2020-10-04 15:27 | Nephrology Progress Note ---
Assessment/Plan Problem List: (1) Electrolyte imbalance (2) Hypothyroidism (3) Functional quadriplegia (4) Sacral decubitus ulcer (5) Hypoalbuminemia (6) Anemia Assessment Unfortunate 75-year old female with chronic trach to vent is being treated for sepsis Has hyponatremia Marked elevated TSH indicative of severe hypothyroidism leading to hyponatremia Anemia Plan October 04: Labs reviewed. Renal parameters stable. Serum potassium normalized. Continue current management. White blood cells of 14,000 persists. October 03: Labs reviewed. High potassium most likely hemolysis as renal parameters are stable and the patient is on no potassium supplement. TSH level is lowering on IV Synthroid. Will increase Synthroid 100 mcg every 24 hours intravenously. Continue per consultants. Continue to monitor electrolytes. Discussed with RN. October 02: Labs reviewed. Low magnesium replaced. Stable from renal standpoint of view. October 01: No labs drawn today. Will check lab tomorrow. Continue per consultants. Stable from renal standpoint of view. September 30: Labs reviewed. Renal parameters stable. Continue per consultants. September 29: Labs reviewed. Abnormal electrolytes and chemistries addressed. Continue per consultants. September 28: No CHEM panel drawn today. Medication list reviewed. Continue present management. September 27: Labs reviewed. Renal parameters stable. On intravenous Synthroid for severe hypothyroidism. Continue to monitor electrolytes and renal parameters Previously: IV Synthroid given Continue per consultants Monitor renal parameters and electrolytes Subjective ROS Limited/Unobtainable: Yes Objective Objective Last 24 Hour Vital Signs Date Time Temp Pulse Resp B/P (MAP) Pulse Ox O2 Delivery O2 Flow Rate FiO2 10/04/20 12:28 72 10/04/20 12:00 97.8 79 22 138/72 (94) 100 10/04/20 11:10 76 20 30 10/04/20 08:37 77 10/04/20 08:00 30 10/04/20 08:00 Mechanical Ventilator 10/04/20 08:00 98.1 76 20 133/68 (89) 100 10/04/20 07:20 80 20 30 10/04/20 04:00 98.1 66 16 126/66 (86) 100 10/04/20 04:00 30 10/04/20 04:00 Mechanical Ventilator 10/04/20 04:00 78 10/04/20 03:12 73 23 30 10/04/20 00:00 Mechanical Ventilator 10/04/20 00:00 71 10/04/20 00:00 98.2 70 13 112/52 (72) 100 10/04/20 00:00 30 10/03/20 22:37 70 16 30 10/03/20 20:00 30 10/03/20 20:00 98.6 68 15 118/48 (71) 100 10/03/20 20:00 Mechanical Ventilator 10/03/20 20:00 67 10/03/20 19:40 69 18 30 10/03/20 16:00 30 10/03/20 16:00 Mechanical Ventilator 10/03/20 15:57 98.1 71 15 123/52 (75) 100 10/03/20 15:41 69 16 30 Intake and Output 10/03/20 10/04/20 19:00 07:00 Intake Total 670 ml 400 ml Output Total 500 ml Balance 170 ml 400 ml Free Water 260 ml Tube Feeding 410 ml 400 ml Output Urine Total 500 ml # Voids 2 # Bowel Movements 70 Current Medications Medications (Trade) Dose Ordered Sig/Alex Route PRN Reason Start Time Stop Time Status Last Admin Dose Admin Acetaminophen (Tylenol) 500 mg Q4H PRN ORAL Mild Pain (Pain Scale 1-3) 09/15/20 23:15 10/15/20 23:14 09/23/20 16:49 Acetaminophen (Tylenol) 500 mg Q4H PRN ORAL Temp >100.5 09/15/20 23:15 10/15/20 23:14 09/24/20 16:19 Ascorbic Acid (Vitamin C) 250 mg TWICE A DAY ORAL 09/19/20 18:00 10/19/20 17:59 10/04/20 08:50 Hydralazine HCl (Apresoline) 10 mg Q2H PRN IV For High Blood Pressure 09/17/20 17:00 12/16/20 16:59 Levothyroxine Sodium (Synthroid) 100 mcg DAILY IV 10/04/20 09:00 10/26/20 12:59 10/04/20 08:50 Multivitamins (Multivitamins) 1 tab DAILY ORAL 09/20/20 09:00 10/20/20 08:59 10/04/20 08:50 Pantoprazole (Protonix) 40 mg EVERY 12 HOURS IVP 09/17/20 14:15 10/17/20 14:14 10/04/20 08:49 Laboratory Tests 10/04/20 03:50: White Blood Count 14.4H, Red Blood Count 3.14L, Hemoglobin 9.9L, Hematocrit 30.4L, Mean Corpuscular Volume 97, Mean Corpuscular Hemoglobin 31.6H, Mean Corpuscular Hemoglobin Concent 32.6, Red Cell Distribution Width 16.6H, Platelet Count 259, Mean Platelet Volume 6.8, Neutrophils (%) (Auto) , Lymphocytes (%) (Auto) , Monocytes (%) (Auto) , Eosinophils (%) (Auto) , Basophils (%) (Auto) , Sodium Level 138, Potassium Level 4.3, Chloride Level 104, Carbon Dioxide Level 29, Anion Gap 5, Blood Urea Nitrogen 17, Creatinine 0.4L, Estimat Glomerular Filtration Rate > 60, Glucose Level 93, Calcium Level 10.0, Phosphorus Level 2.9, Magnesium Level 1.9, Total Bilirubin 0.4, Aspartate Amino Transf (AST/SGOT) 19, Alanine Aminotransferase (ALT/SGPT) 13, Alkaline Phosphatase 342H, Total Protein 7.3, Albumin 2.3L, Globulin 5.0, Albumin/Globulin Ratio 0.5L Height (Feet): 5 Height (Inches): 3.00 Weight (Pounds): 145 General Appearance: no apparent distress EENT: other - Trach to vent Cardiovascular: normal rate Respiratory/Chest: decreased breath sounds Abdomen: distended Dante Chau MD Oct 04, 2020 15:27
--- NOTE | 2020-10-04 15:43 | NUR ---
*-*DISCHARGE PLANNED*-* PATIENT HAS BEEN REFERRED TO: [facility], [facility] P: [phone] FOR NURSE TO NURSE REPORT ROOM# 19.[facility] TRANSP[facility]ATION SET FOR 4:45PM [id number]. S/W PATIENTS DAUGHTER FRIDA, WHO IS IN AGREEMENT WITH DISCHARGE PLAN.
[2020-10-04 16:00] VITALS: BP 125/76
[2020-10-04] MEDS ORDERED: Tubing IV Secondary IV ONE (17:42)
[2020-10-04] MEDS ORDERED: NS 275ml ONE (17:42)
--- NOTE | 2020-10-04 17:43 | NUR ---
NURSE NOTES: [facility] Trache intact and connected to vent by EMT. IV line removed. devops consultant removed. Gtube clamped. ID band removed. No belongings. No new skin issues noted. Transported accompanied by ambulance personnel.
--- NOTE | 2020-10-04 18:29 | General Progress Note ---
Subjective Allergies: Coded Allergies: No Known Allergies (Unverified , 11/22/15) Subjective Above noted Tolerating TF Non verbal for d/c today Objective Last 24 Hour Vital Signs Date Time Temp Pulse Resp B/P (MAP) Pulse Ox O2 Delivery O2 Flow Rate FiO2 10/04/20 16:41 71 10/04/20 16:00 98.4 76 18 125/76 (92) 100 10/04/20 15:28 72 19 30 10/04/20 12:28 72 10/04/20 12:00 97.8 79 22 138/72 (94) 100 10/04/20 11:10 76 20 30 10/04/20 08:37 77 10/04/20 08:00 30 10/04/20 08:00 Mechanical Ventilator 10/04/20 08:00 98.1 76 20 133/68 (89) 100 10/04/20 07:20 80 20 30 10/04/20 04:00 98.1 66 16 126/66 (86) 100 10/04/20 04:00 30 10/04/20 04:00 Mechanical Ventilator 10/04/20 04:00 78 10/04/20 03:12 73 23 30 10/04/20 00:00 Mechanical Ventilator 10/04/20 00:00 71 10/04/20 00:00 98.2 70 13 112/52 (72) 100 10/04/20 00:00 30 10/03/20 22:37 70 16 30 10/03/20 20:00 30 10/03/20 20:00 98.6 68 15 118/48 (71) 100 10/03/20 20:00 Mechanical Ventilator 10/03/20 20:00 67 10/03/20 19:40 69 18 30 Intake and Output 10/03/20 10/04/20 19:00 07:00 Intake Total 670 ml 400 ml Output Total 500 ml Balance 170 ml 400 ml Free Water 260 ml Tube Feeding 410 ml 400 ml Output Urine Total 500 ml # Voids 2 # Bowel Movements 70 Laboratory Tests 10/04/20 03:50: White Blood Count 14.4H, Red Blood Count 3.14L, Hemoglobin 9.9L, Hematocrit 30.4L, Mean Corpuscular Volume 97, Mean Corpuscular Hemoglobin 31.6H, Mean Corpuscular Hemoglobin Concent 32.6, Red Cell Distribution Width 16.6H, Platelet Count 259, Mean Platelet Volume 6.8, Neutrophils (%) (Auto) , Lymphocytes (%) (Auto) , Monocytes (%) (Auto) , Eosinophils (%) (Auto) , Basophils (%) (Auto) , Sodium Level 138, Potassium Level 4.3, Chloride Level 104, Carbon Dioxide Level 29, Anion Gap 5, Blood Urea Nitrogen 17, Creatinine 0.4L, Estimat Glomerular Filtration Rate > 60, Glucose Level 93, Calcium Level 10.0, Phosphorus Level 2.9, Magnesium Level 1.9, Total Bilirubin 0.4, Aspartate Amino Transf (AST/SGOT) 19, Alanine Aminotransferase (ALT/SGPT) 13, Alkaline Phosphatase 342H, Total Protein 7.3, Albumin 2.3L, Globulin 5.0, Albumin/Globulin Ratio 0.5L Height (Feet): 5 Height (Inches): 3.00 Weight (Pounds): 145 Objective debilitated Elderly woman on vent NCAT neck (+) trach coarse BS RR abd soft , flat, (+) GT no edema, (++) contractures Assessment/Plan Status: stable, progressing Assessment/Plan: Assessment - Urolithiasis with hydronephrosis - GT site drainage/discharge - resolved - Leukocytosis - Rising Alk phos - OBS - Resp failure, s/p Trach - s/p PEG for dysphagia, - Parkinsons - Schizophrenia - h/o decub ulcers - Severe anemia - high K noted Recommendations - Urology f/u - GT care - Elevate HOB - monitor labs - abx per ID - low K formula Tnaa Romano MD Oct 04, 2020 18:29
--- NOTE | 2020-10-05 02:08 | Cardiology Report ---
APPROVED REPORT EXAM: Two-dimensional and M-mode echocardiogram with Doppler and color Doppler. INDICATION Congestive Heart Failure M-Mode DIMENSIONS IVSd0.9 (0.7-1.1cm)Left Atrium (MM)3.1 (1.6-4.0cm) LVDd3.9 (3.5-5.6cm)Aortic Root3.0 (2.0-3.7cm) PWd0.9 (0.7-1.1cm)Aortic Cusp Exc.1.8 (1.5-2.0cm) IVSs1.6 cmEPSS0.4 (>1.0cm) LVDs2.4 (2.5-4.0cm) PWs1.2 cm <Conclusion> Technically difficult study due to pt's ventilator and breathing. Normal left ventricular chamber size, systolic function and wall motion to extent visualized. Left ventricular ejection fraction estimated to be 60-65 %. No left ventricular hypertrophy. Anterior Echo-free space, may be due to pericardial fat or effusion. All other cardiac chamber sizes are within normal limits. Focal aortic valve sclerosis with adequate cusp excursion. Thickened mitral valve leaflets with normal excursion. Mitral annulus and aortic root calcification. Pulmonic valve not well visualized. Normal tricuspid valve structure. Subcostal views are not obtainable due to GI tube. A color flow and spectral Doppler study was performed and revealed: Trace aortic regurgitation. Trace mitral regurgitation. Mitral diastolic velocities suggest reduced left ventricular relaxation c/w mild LV diastolic dysfunction (Grade I ). Mild to moderate tricuspid regurgitation. Tricuspid systolic velocities suggests peak right ventricular systolic pressure of 53 mmHg,consistent with moderate pulmonary hypertension. Mild pulmonic regurgitation present.
--- NOTE | 2020-10-05 02:33 | Cardiology Report ---
APPROVED REPORT EKG Measurement Heart [id number] <Conclusion> Normal sinus rhythm Minimal voltage criteria for LVH, may be normal variant Borderline ECG
--- NOTE | 2020-10-06 15:48 | Discharge Summary ---
Discharge Summary Discharge Summary _ Date of admission: 09/15/2020 Date of discharge: 10/04/[address] Dupree History of Present Illness and Brief Hospital Course Ms. Gao is a 75-year-old female with past medical history of CHF, COPD, hypertension,s/p trach vent, encephalopathy, gastritis, and Parkinson's disease, who was sent in from senior living facility for evaluation of fever. Her chest x-ray showed bilateral interstitial infiltrates. Patient tested negative for COVID-19 swab. PCR COVID-19 test confirmed negative result. Her CBC showed markedly reduced hemoglobin levels. She was started on IV iron and was transfused as needed with hemoglobin goal of greater than 7. Her hemoglobin improved after 1 unit of PRBC and did not need further transfusion until day of discharge. Her H&H remained low but at a stable level between 9.6- 10.7. Due to presence of interstitial infiltrates on chest x-ray, antibiotics were started. She is chronically ventilator dependent. She was put on AC mode and FiO2 was adjusted as needed. Her sputum culture showed growth of Serratia marcescens, pseudomonas aeruginosa, and Stenotrophomonas maltophilia. Her antibiotic was changed from Zosyn to meropenem and Bactrim. Linezolid was added later. She has history of hypertension and was put on hydralazine prn and clonidine for BP control. She also presented with signs of sepsis. Antibiotics were continued. For history of CHF, ejection fraction was evaluated with 2D echocardiogram which revealed LVEF of 65%. Her initial urinalysis showed evidence for UTI and she was started on antibiotics. Subsequent urine culture showed growth of ESBL E. coli. Patient had markedly elevated TSH, indicative of severe hypothyroidism leading to hyponatremia. She was put on IV Synthroid. Electrolytes and renal parameters were closely monitored. Given her dysphagia, patient received PEG for nutrition. Appropriate G-tube care was in place. On 09/22/2020 patient received EGD with GT change. Her laboratory studies showed rising alk phos. CT of abdomen pelvis showed at least 4 stones in the distal right ureter with mild right hydronephrosis and hydroureter. There was a nonobstructing stone in the right renal pelvis as well as a stone in the right lower pole calyx. Her initial laboratory studies revealed elevated D-dimer. Venous duplex ultrasound of lower extremities was negative for DVT. She was put on SCDs for DVT prophylaxis measure. Her labs showed thrombocytopenia. She was already on antibiotics at this point. Patient also had history of right breast calcifications. However, no breast mass was appreciated on physical exam. As such, ultrasound of breast was not performed during admission. Otpatient follow-up for mammogram was recommended instead. Patient also had sacral decubitus and wound care was initiated. By the day of discharge, patient's condition improved and was medically stable for discharge. Patient was discharged to [facility] via ambulance. IV lines were removed before discharge. Consultants: Cardiology Dr. Bess Hematology oncology Dr. Cazares Infectious disease Dr. Nicole Nephrology Dr. Frazier Pulmonology Dr. Childs Surgery with Dr. Petty Urology Dr. Barker Gastroenterology Dr. Romano Discharge Condition Improved and stable, remains on ventilator support Final diagnoses Hypertension Ventilator associated pneumonia Anemia CHF Dysphagia s/p PEG VRE sepsis Gram-positive bacteremia Pseudomonas pneumonia E. coli UTI Stage IV sacral ulcer Multiple ureteral stone Thrombocytopenia Leukocytosis Dehydration Eosinophilia Quadriplegia History of COPD History of atrial fibrillation Mild right hydronephrosis and hydroureter Hypothyroidism Hypoalbuminemia History of Parkinson's History of schizophrenia Hyperkalemia I have been assigned to dictate discharge summary for this account. Uriel Díaz Oct 06, 2020 15:48
--- NOTE | 2020-10-07 12:19 | Cardiology Report ---
APPROVED REPORT EKG Measurement Heart [id number] ME [id number] <Conclusion> Normal sinus rhythm Normal ECG
== END 2020-10-04 17:43 | DRG 870 ==
LOC: EDBD 12:21 → EDUNIT# 12:21 → EDBEDREQ 12:54 → EMR 13:29 → 2W 13:39 → EDBEDREQ 17:03 → 2W 20:03
PROC: 0DH68UZ Insertion of Feeding Device into Stomach, Via Natural or Artificial Opening Endoscopic (ICD-10-PCS; principal; 2020-09-15)
PROC: 5A1955Z Respiratory Ventilation, Greater than 96 Consecutive Hours (ICD-10-PCS; principal; 2020-09-15)
PROC: 0DB38ZX Excision of Lower Esophagus, Via Natural or Artificial Opening Endoscopic, Diagnostic (ICD-10-PCS; principal; 2020-09-15)
PROC: 30233N1 Transfusion of Nonautologous Red Blood Cells into Peripheral Vein, Percutaneous Approach (ICD-10-PCS; 2020-09-16)
DX: A41.81 Sepsis due to Enterococcus (principal); L89.154 Pressure ulcer of sacral region, stage 4; R53.2 Functional quadriplegia; J15.1 Pneumonia due to Pseudomonas; J95.851 Ventilator associated pneumonia; N39.0 Urinary tract infection, site not specified; J96.10 Chronic respiratory failure, unspecified whether with hypoxia or hypercapnia; E87.0 Hyperosmolality and hypernatremia; E46 Unspecified protein-calorie malnutrition; Z16.22 Resistance to vancomycin related antibiotics; N13.2 Hydronephrosis with renal and ureteral calculous obstruction; Z43.1 Encounter for attention to gastrostomy; Z99.11 Dependence on respirator [ventilator] status; D61.818 Other pancytopenia; Y84.8 Other medical procedures as the cause of abnormal reaction of the patient, or of later complication, without mention of misadventure at the time of the procedure; I11.0 Hypertensive heart disease with heart failure; I50.9 Heart failure, unspecified; G20 Parkinson's disease; F02.80 Dementia in other diseases classified elsewhere, unspecified severity, without behavioral disturbance, psychotic disturbance, mood disturbance, and anxiety; E03.9 Hypothyroidism, unspecified; R13.10 Dysphagia, unspecified; B96.20 Unspecified Escherichia coli [E. coli] as the cause of diseases classified elsewhere; E86.0 Dehydration; D72.10 Eosinophilia, unspecified; I48.0 Paroxysmal atrial fibrillation; J44.9 Chronic obstructive pulmonary disease, unspecified; E88.09 Other disorders of plasma-protein metabolism, not elsewhere classified; E87.5 Hyperkalemia; Z43.0 Encounter for attention to tracheostomy; Z20.822 Contact with and (suspected) exposure to COVID-19; R62.7 Adult failure to thrive; R97.0 Elevated carcinoembryonic antigen [CEA]
CPT/HCPCS: 36415; 71045; 74177; 76705; 80048; 80053; 81003; 82248; 82306; 82550; 82607; 82728; 82746; 82962; 83540; 83550; 83605; 83615; 83690; 83735; 83880; 84100; 84439; 84443; 84481; 84484; 84550; 85007; 85025; 85379; 85610; 85730; 86140; 86850; 86900; 86901; 86920; 87040; 87070; 87086; 87181; 87205; 93005; 93306; 93970; 94002; 94003; 94150; 96361; 96365; 96367; 99291; J7030; U0002